=== PATIENT | female | born 1940 | race Caucasian/White ===

== ENCOUNTER 2021-09-14 09:11 | Emergency (ER) | payer OTHER, MEDICARE ==
--- OUTSIDE RECORDS SUMMARY | 2021-09-14 09:26 | XMS REPORT | Continuity of Care Document ---
:1940 Author Organization [facility] t Address [address] [place] [address] Care Team Providers Name Role Phone Brunilda Attending Clinician Unavailable BRENNA Attending Clinician Unavailable ADOLPH Attending Clinician Unavailable Brunilda Admitting Clinician Unavailable Payers Payer Name Policy Type Policy Number Effective Date Expiration Date S ource Problems Condition Condition Condition Status Onset Resolution Last Treating Co mments Source Name Details Category Date Date Treatment Clinician Date C A D Diagnosis Active 2014-08-21 [facility] oria 08-17 08:19:00 l C A D 00:00: [place] 00 Active 08/17/2014 [facility] NEED Diagnosis Active 2014-08-20 [facility] oria 08-17 15:35:00 l NEED 00:00: [place] 00 Active 08/17/2014 [facility] 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 , and unspecifie idiopathic d neuropathy , unspecifie d Active Problem 05/17/2020 [facility] 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, 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, not elsewhere classified Active Problem 05/17/2020 [facility] Vitamin D Problem Active 2020-05-17 Me moria deficiency 02:48:03 l , Vitamin [place] unspecifie D d deficiency , unspecifie d Active Problem 05/17/2020 [facility] 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 Active Problem 05/17/2020 [facility] Gastro-eso Problem Active 2020-05-17 M emoria phageal 02:48:03 l reflux [place] disease Gastro-eso with phageal esophagiti reflux s disease with esophagiti s Active Problem 05/17/2020 [facility] Pain in Problem Active 2020-05-17 Alfredo ernetta unspecifie 02:48:03 l d knee Pain in Niall unspecifie d knee Active Problem 05/17/2020 [facility] Frequency Problem Active 2020-05-17 Az moria of 02:48:03 l micturitio Nicho n n Frequency of micturitio n Active Problem 05/17/2020 [facility] Asymptomat Problem Active 2020-05-17 M emoria ic 02:48:03 l menopausal Nicho n state Asymptomat ic menopausal state Active Problem 05/17/2020 [facility] Other Problem Active 2020-05-17 Memor ia chronic 02:48:03 l sinusitis Other [place] chronic sinusitis Active Problem 05/17/2020 [facility] 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 without angina pectoris Active Problem 05/17/2020 [facility] Generalize Problem Active 2020-05-17 M emoria d 02:48:03 l abdominal Niall pain Generalize d abdominal pain Active Problem 05/17/2020 [facility] Chest Problem Active 2020-05-17 Memor ia pain, 02:48:03 l unspecifie Chest Mi nn d pain, unspecifie d Active Problem 05/17/2020 [facility] Essential Problem Active 2020-05-17 Me moria (primary) 02:48:03 l hypertensi Nicho n on Essential (primary) hypertensi on Active Problem [facility] Other Problem Active 2020-05-17 Memor ia constipati 02:48:03 l on Other Niall constipati on Active Problem [facility] Pain in Problem Active 2020-05-17 Alfredo renetta right 02:48:03 l shoulder Pain in Mi nn right shoulder Active Problem 05/17/2020 [facility] 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, Carpal Im nn unspecifie tunnel d upper syndrome, limb unspecifie d upper limb Active Problem 05/17/2020 [facility] Pain in Problem Active 2020-05-17 Alfredo renetta left ankle 02:48:03 l and joints Pain in Her hugo of left left ankle foot and joints of left foot Active Problem 05/17/2020 [facility] Low back Problem Active 2020-05-17 Mem oria pain 02:48:03 l Low back Nicho n pain Active Problem 05/17/2020 [facility] Obstructiv Problem Active 2020-05-17 M emoria e sleep 02:48:03 l apnea Niall (adult) Obstructiv (pediatric e sleep ) apnea (adult) (pediatric ) Active Problem 05/17/2020 [facility] Wheezing Problem Active 2020-05-17 Mem oria 02:48:03 l Wheezing Nicho n Active Problem 05/17/2020 [facility] Cracked Problem Active 2020-05-17 Alfredo renetta tooth 02:48:03 l Cracked [place] tooth Active Problem 05/17/2020 [facility] Localized Problem Active 2020-05-17 Me moria edema 02:48:03 l [place] Localized edema Active Problem 05/17/2020 [facility] 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 02:48:03 l emia Mixed Niall hyperlipid emia Active Problem 05/17/2020 [facility] Acute Problem Active 2020-05-17 Memor ia gingivitis 02:48:03 l , plaque Acute Niall induced gingivitis , plaque induced Active Problem 05/17/2020 [facility] Age-relate Problem Active 2020-05-17 M emoria d 02:48:03 l osteopormaggy Torre n is with Age-relate current d pathologic osteoporos al is with fracture, current unspecifie pathologic d site, al subsequent fracture, encounter unspecifie for d site, fracture subsequent with encounter routine for healing fracture with routine healing Active Problem 05/17/2020 [facility] Unspecifie Problem Active 2020-05-17 M emoria d fall, 02:48:03 l subsequent Nicho n encounter Unspecifie d fall, subsequent encounter Active Problem 05/17/2020 [facility] Other Problem Active 2020-05-17 Memor ia muscle 02:48:03 l spasm Other [place] muscle spasm Active Problem 05/17/2020 [facility] Age-relate Problem Active 2020-05-17 M emoria d 02:48:03 l osteopormaggy Tor[place] n is with Age-relate current d pathologic osteoporos al is with fracture, current left ankle pathologic and foot, al subsequent fracture, encounter left ankle for and foot, fracture subsequent with encounter delayed for healing fracture with delayed healing Active Problem 05/17/2020 [facility] Other Problem Active 2020-05-17 Memor ia interverte 02:48:03 l bral disc Other Nicho n degenerati interverte on, bral disc lumbosacra degenerati l region on, lumbosacra l region Active Problem 05/17/2020 [facility] Cough Problem Active 2020-05-17 Memor ia 02:48:03 l Cough Niall Active Problem 05/17/2020 [facility] Other Problem Active 2020-05-17 Memor ia interverte 02:48:03 l bral disc Other Nicho n degenerati interverte on, lumbar bral disc region degenerati on, lumbar region Active Problem 05/17/2020 [facility] Acute Problem Active 2020-05-17 Memor ia bronchitis 02:48:03 l , Acute [place] unspecifie bronchitis d , unspecifie d Active Problem 05/17/2020 [facility] Peripheral Problem Active 2020-05-[address] 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, myelopathy lumbosacra or l region radiculopa thy, lumbosacra l region Active Problem 05/17/2020 [facility] 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 02:48:03 l mellitus Type 2 Nicho n with diabetes hyperglyce mellitus clair with hyperglyce clair Active Problem 05/17/2020 [facility] Other Problem Active 2020-05-17 Memor ia abnormal 02:48:03 l and Other Niall inconclusi abnormal ve and findings inconclusi on ve diagnostic findings imaging of on breast diagnostic imaging of breast Active Problem 05/17/2020 [facility] Morbid Problem Active 2020-05-17 Memor ia (severe) 02:48:03 l obesity Morbid [place] due to (severe) excess obesity calories due to excess calories Active Problem 05/17/2020 [facility] Adjustment Problem Active 2020-05-17 M emoria insomnia 02:48:03 l [place] Adjustment insomnia Active Problem 05/17/2020 [facility] 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, Behavioral unspecifie insomnia d type of childhood, unspecifie d type Active Problem 05/17/2020 [facility] Encounter Problem Active 2020-05-17 Me moria for 02:48:03 l screening Niall mammogram Encounter for for malignant screening neoplasm mammogram of breast for malignant neoplasm of breast Active Problem 05/17/2020 [facility] Acute Problem Active 2020-05-17 Memor ia frontal 02:48:03 l sinusitis, Acute Mi nn unspecifie frontal d sinusitis, unspecifie d Active Problem 05/17/2020 [facility] Age-relate Problem Active 2020-05-17 M emoria d 02:48:03 l osteoporos Nicho n is with Age-relate current d pathologic osteoporos al is with fracture, current left pathologic humerus, al initial fracture, encounter left for humerus, fracture initial encounter for fracture Active Problem 05/17/2020 [facility] Chronic Problem Active 2020-05-17 Alfredo renetta sinusitis, 02:48:03 l unspecifie Chronic Her hugo d sinusitis, unspecifie d Active Problem 05/17/2020 [facility] Other Problem Active 2020-05-17 Memor ia acute 02:48:03 l sinusitis Other Nicho n acute sinusitis Active Problem 05/17/2020 [facility] Muscle Problem Active 2020-05-17 Memor ia spasm of 02:48:03 l back Muscle Niall spasm of back Active Problem 05/17/2020 [facility] Arthralgia Problem Active 2020-05-17 M emoria of right 02:48:03 l temporoman Nicho n dibular Arthralgia joint of right temporoman dibular joint Active Problem 05/17/2020 [facility] Acute Problem Active 2020-05-17 Memor ia upper 02:48:03 l respirator Acute Mi nn y upper infection, respirator unspecifie y d infection, unspecifie d Active Problem 05/17/2020 [facility] Resistance Problem Active 2020-05-17 M emoria to other 02:48:03 l specified [place] beta Resistance lactam to other antibiotic specified s beta lactam antibiotic s Active Problem 05/17/2020 [facility] Hypothyroi Problem Active 2020-05-17 M emoria dism, 02:48:03 l unspecifie Nicho n d Hypothyroi dism, unspecifie d Active Problem 05/17/2020 [facility] Menopausal Problem Active 2020-05-17 M emoria and female 02:48:03 l climacteri Nicho n c states Menopausal and female climacteri c states Active Problem 05/17/2020 [facility] Cervicalgi Problem Active 2020-05-17 M emoria a 02:48:03 l Niall Cervicalgi a Active Problem 05/17/2020 [facility] Hyperlipid Problem Active 2020-05-17 M emoria emia, 02:48:03 l unspecifie Nicho n d Hyperlipid emia, unspecifie d Active Problem 05/17/2020 [facility] pal[facility]ino Other Problem Active 2020-05-17 Memor ia dorsalgia 02:48:03 l Other Niall dorsalgia Active Problem 05/17/2020 [facility] pal[facility]ino Age-relate Problem Active 2020-05-17 M emoria d 02:48:03 l osteoporos Nicho n is without Age-relate current d pathologic osteoporos al is without fracture current pathologic al fracture Active Problem 05/17/2020 [facility] Dietary Problem Active 2020-05-17 Alfredo renetta counseling 02:48:03 l and Dietary [place] surveillan counseling ce and surveillan ce Active Problem [facility] pal[facility]ino Acute Problem Active 2020-05-17 Memor ia maxillary 02:48:03 l sinusitis, Acute Mi nn unspecifie maxillary d sinusitis, unspecifie d Active Problem 05/17/2020 [facility]aved palomino Body mass Problem Active 2020-05-17 Me moria index 02:48:03 l (BMI) Body Niall 39.0-39.9, mass index adult (BMI) 39.0-39.9, adult Active Problem 05/17/2020 [facility]aved palomino Person Problem Active 2020-05-17 Memor ia consulting 02:48:03 l for Person Niall explanatio consulting n of for examinatio explanatio n or test n of findings examinatio n or test findings Active Problem 05/17/2020 [facility]aved palomino Diabetes Problem Active 2020-05-17 Mem oria mellitus 02:48:03 l due to Diabetes Nicho n underlying mellitus condition due to with underlying hypoglycem condition ia without with coma hypoglycem ia without coma Active Problem 05/17/2020 [facility] pal[facility]ino Pain in Problem Active 2020-05-17 Alfredo renetta right hip 02:48:03 l Pain in Niall right hip Active Problem 05/17/2020 [facility]aved palomino Diabetes Problem Active 2020-05-17 Mem oria mellitus 02:48:03 l due to Diabetes Nicho n underlying mellitus condition due to with underlying diabetic condition neuropathy with , diabetic unspecifie neuropathy d , unspecifie d Active Problem 05/17/2020 [facility]aved palomino Encounter Problem Active 2020-05-17 Az moria for 02:48:03 l immunizati Nicho n on Encounter for immunizati on Active Problem Javed palomino Body mass Problem Active 2020-05-17 Me moria index 02:48:03 l (BMI) Body [place] 40.0-44.9, mass index adult (BMI) 40.0-44.9, adult Active Problem 05/17/2020 [facility]aved [facility]omino Periapical Diagnosis Active 2018-10-16 Memoria abscess 02:45:30 l without Niall sinus Periapical abscess without sinus Active Diagnosis 10/16/2018 [facility] 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 Active Problem 05/17/2020 [facility] Allergic Problem Active 2020-05-17 Mem oria rhinitis, 02:48:03 l unspecifie Allergic He rmann d rhinitis, unspecifie d Active Problem 05/17/2020 [facility] BATSHEVA - Problem Active 2014-12-26 Memor ia Obstructiv 03:48:59 l e sleep BATSHEVA - Niall apnea Obstructiv (adult) e sleep (pediatric apnea ) (adult) (pediatric ) Active Problem 12/26/2014 [facility]aved [facility]ino SOB - Problem Active 2014-12-26 Memor ia Shortness 03:48:59 l of breath SOB - Nicho n Shortness of breath Active Problem 12/26/2014 [facility] Fatigue Problem Active 2014-12-26 Alfredo renetta and 03:48:59 l Generalize Fatigue Her hugo d Weakness and Generalize d Weakness Active Problem 12/26/2014 [facility]aved [facility]ino Urinary Problem Active 2014-12-26 Alfredo renetta frequency 03:48:59 l Urinary [place] frequency Active Problem 12/26/2014 [facility] knee pain Problem Active 2014-12-26 Me moria 03:48:59 l knee [place] pain Active Problem 12/26/2014 [facility] Unspecifie Problem Active 2014-12-26 M emoria d vitamin 03:48:59 l D Niall deficiency Unspecifie d vitamin D deficiency Active Problem 12/26/2014 [facility] Other Problem Active 2014-12-26 Memor ia chronic 03:48:59 l sinusitis Other Nicho n chronic sinusitis Active Problem 12/26/2014 [facility] Asymptomat Problem Active 2014-12-26 M emoria ic 03:48:59 l postmenopa Nicho n usal Asymptomat status ic (age-relat postmenopa ed) usal (natural) status (age-relat ed) (natural) Active Problem 12/26/2014 [facility] GERD - Problem Active 2014-12-26 Memor ia Reflux 03:48:59 l esophagiti GERD - Herm junaid s Reflux esophagiti s Active Problem 12/26/2014 [facility] Abdominal Problem Active 2014-12-26 Me moria pain, 03:48:59 l generalize Nicho n d Abdominal pain, generalize d Active Problem 12/26/2014 Javed palomino DM type 2 Problem Active 2014-12-26 Me moria Diabetes 03:48:59 l mellitus DM type Mi nn without 2 Diabetes mention of mellitus complicati without on, type mention of II or complicati unspecifie on, type d type, II or uncontroll unspecifie ed d type, uncontroll ed Active Problem 5 [facility] HTN - Problem Active 2014-12-26 Memor ia Unspecifie 03:48:59 l d HTN - [place] essential Unspecifie hypertensi d on essential hypertensi on Active Problem 5 [facility] Mixed Problem Active 2014-12-26 Memor ia hyperlipid 03:48:59 l emia Mixed [place] hyperlipid emia Active Problem 12/26/2014 [facility] Wheezing Problem Active 2014-12-26 Mem oria 03:48:59 l Wheezing Nicho n Active Problem 12/26/2014 [facility] Unspecifie Problem Active 2014-12-26 M emoria d 03:48:59 l peripheral Nicho n vascular Unspecifie disease d peripheral vascular disease Active Problem 12/26/2014 [facility]ickman [facility] Unspecifie Problem Active 2014-12-26 M emoria d 03:48:59 l hereditary Nicho n and 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 Active Problem 12/26/2014 [facility]aved Rosariotie s Enlargemen Diagnosis Active 2014-09-06 Memoria t of lymph 02:45:50 l nodes [place] Enlargemen t of lymph nodes Active Diagnosis 09/06/2014 Javed Rosariotie s Unspecifie Problem Active 2014-12-26 M emoria d abnormal 03:48:59 l mammogram [place] Unspecifie d abnormal mammogram Active Problem 12/26/2014 [facility] Other Problem Active 2014-12-26 Memor ia cerebellar 03:48:59 l ataxia Other Niall cerebellar ataxia Active Problem 12/26/2014 Javed Rosariotie s Occlusion Problem Active 2014-12-26 Me moria and 03:48:59 l stenosis [place] of carotid Occlusion artery and without stenosis mention of of carotid cerebral artery infarction without mention of cerebral infarction Active Problem 12/26/2014 Javed Rosariotie s 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, Niall lumbar Postlamine region ctomy syndrome, lumbar region Active Problem 12/26/2014 [facility] Degenerati Problem Active 2014-12-26 M emoria on of 03:48:59 l lumbar or [place] lumbosacra Degenerati l on of interverte lumbar or bral disc lumbosacra l interverte bral disc Active Problem 12/26/2014 Javed Rosariotie s Lumbosacra Problem Active 2014-12-26 M emoria l 03:48:59 l spondylosi Nicho n s without Lumbosacra myelopathy l spondylosi s without myelopathy Active Problem 12/26/2014 [facility] Cracked Problem Active 2014-12-26 Alfredo renetta tooth 03:48:59 l Cracked N[place] tooth Active Problem 12/26/2014 [facility] Acute Problem Active 2014-12-26 Memor ia gingivitis 03:48:59 l , plaque Acute Niall induced gingivitis , plaque induced Active Problem 12/26/2014 Javed palomino Allergic Diagnosis Active 2014-04-05 M emoria rhinitis 03:51:03 l due to Allergic Nicho n pollen rhinitis due to pollen Active Diagnosis 04/05/2014 Javed palomino Cardiac Problem Active 2014-08-24 Alfredo renetta catheteriz 01:38:43 l ation Cardiac [place] post-inter catheteriz vention ation phase post-inter (qualifier vention value) phase (qualifier value) Active Problem 08/24/2014 [facility] Diabetes Problem Active 2014-08-24 Mem oria mellitus 01:38:43 l (disorder) Diabetes He rmann mellitus (disorder) Active Problem 08/24/2014 [facility] Gout Problem Active 2014-08-24 Memor ia (disorder) 01:38:43 l Gout [place] (disorder) Active Problem 08/24/2014 [facility] Hypertensi Problem Active 2014-08-24 M emoria ve 01:38:43 l disorder, [place] systemic Hypertensi arterial ve (disorder) disorder, systemic arterial (disorder) Active Problem 08/24/2014 [facility] Rheumatoid Problem Active 2014-08-24 M emoria arthritis 01:38:43 l (disorder) Nicho n Rheumatoid arthritis (disorder) Active Problem 08/24/2014 [facility] CRNRY Diagnosis Active 2014-08-21 Mem oria ATHRSCL 08:19:00 l NATVE VSSL CRNRY Mi nn ATHRSCL NATVE VSSL Active [facility] Allergies, Adverse Reactions, Alerts Allergy Allergy Status Severity Reaction(s) Onset Inactive Treating Comm ents Source Name Type Date Date Lia calderon Active itch 2017- Memori a 2-19 l 00:00: [place] 00 codeine DA Active [place] [facility] 604 Clear 00:00: [place] 00 [facility] propoxyp DA Active [facility] 604 Clear 00:00: [place] 00 [facility] codeine DA Active [place] [facility] 604 Clear 00:00: [place] 00 [facility] propoxyp DA Active [facility] 604 Clear 00:00: [place] 00 [facility] codeine codeine Active Nicole Tierney Social History Social Habit Start Date Stop Date Quantity Comments Source Useofrecreational/ 2016-03-04 2016-03-04 Shamar al Niall [facility]? 00:00:00 00:00:00 Medications Ordered Filled Start Stop Current Ordering Indication Dosage Frequency Signature Comments Components Source Medication Medication Date Date Medication? Clinician (SIG) Name Name Pavel Yes Nedal Edgar 50 units M emoria 70/30 3-26 in am and l 02:47: 40 units Niall 52 in pm MiraLax Yes Nedal Edgar not Memor ia - defined l 02:47: Niall Rosales Simvastatin Yes Nedal Edgar 1 tablet Memoria 3-26 in the l 02:47: evening Niall Rosales Krystyna Yes Nedal Edgar 1 tablet Mem oria Aspirin - l 02:47: Niall Rosales ReliOn Yes Nedal Edgar 50 units Me moria 70/30 3-26 am and 30 l 02:47: units pm Niall Rosales Plavix Yes Nedal Edgar 1 tablet Me moria 3-26 l 02:47: Niall Rosales Vitamin C Yes Nedal Edgar 1 tablet Memoria 3-26 l 02:47: Niall Rosales Cetirizine Yes Nedal Edgar 1 tablet Memoria HCl - l 02:47: Niall Rosales Amoxicillin Yes Nedal Edgar not M emoria -Pot - defined l Clavulanate 02:47: Nicho Rosales Metoprolol Yes Nedal Edgar 1 tablet Memoria Succinate -26 l ER 02:47: Niall Rosales Omeprazole Yes Nedal Edgar 1 capsule Memoria 3-26 l 02:47: Niall Rosales Accu-Chek Yes Nedal Edgar use as M emoria Vivi Plus 3-26 directed l 02:47: Niall Rosales Lisinopril Yes Nedal Edgar 1 TABLET Memoria 3-26 ONCE A DAY l 02:47: ORALLY 90 Niall Rosales DAYS Prevacid Yes Nedal Edgar 1 capsule Memoria 3-26 before a l 02:47: meal Niall Rosales Omeprazole 2020-0 Yes Carol 1 capsule M emoria 3-27 PeckSamman l 02:45: Accu-Chek 2019-0 Yes Jimmy use as Memori a Vivi Plus 9-19 zzzAmer directed l 02:46: Lisinopril 2019-0 Yes Jimmy 1 TABLET Mem oria 9-19 zzzAmer ONCE A DAY l 02:46: ORALLY 90 DAYS Prevacid 2019-0 Yes Jimmy 1 capsule Alfredo renetta 9-19 zzzAmer before a l 02:46: meal Omeprazole 2019-0 Yes Carol TAKE 1 Alfredo renetta 8-25 PeckSamman CAPSULE l 02:45: DAILY Doxycycline 2018-1 Yes Nedal Edgar 1 capsule Memoria Hyclate 2-13 l 00:00: PredniSONE 2018-1 Yes Nedal Edgar 1 tablet Memoria 2-13 l 00:00: Valium 2018-1 Yes Nedal Edgar 1 tablet Me moria 2-06 l 00:00: Levofloxaci 2018-0 Yes Nedal Edgar 1 tablet Memoria n 9-18 l 00:00: Amoxicillin 2018-0 Yes Nedal Edgar 1 tablet Memoria 9-04 l 00:00: Medrol 2018-0 Yes Jimmy as Memoria (Dylan) 3-21 zzzAmer directed l 00:00: Hydrocodone 2018-0 Yes Carol 1 tablet M emoria -Acetaminop 2-13 Shetty-Samma as needed l hen 00:00: n Protem 2018-0 Yes Carol 1 tablet Memoria 1-11 Shetty-Samma as needed l 00:00: n Voltaren 2018-0 Yes Nedal Edgar one Alfredo renetta 1-09 applicatio l 00:00: n Tamiflu 2018-0 Yes Nedal Edgar 1 capsule Memoria 1-02 l 00:00: Famotidine 2017-1 Yes Nedal Edgar 1 tablet Memoria 2-28 l 00:00: Ibuprofen 2017-1 Yes Carol 1 tablet Mem oria 2-28 Shetty-Samma with food l 00:00: n or milk Duexis 2017-1 Yes Carol 1 tablet Memori a 2-27 Shetty-Samma l 00:00: n [place] Flexeril 2016-02 Yes Carol 1 tablet Alfredo renetta 2-27 Shetty-Samma as needed l 00:00: n Niall Clindamycin 2016-02 Yes Carol 1 capsule Memoria HCl 2-19 PeckSamman l 00:00: [place] Prevacid 2016-02 Yes Carol 1 capsule Mem oria 2-07 Shetty-Samma before a l 03:46: n meal [place] Amoxicillin 2016-02 Yes Carol 1 tablet M emoria -Pot 2-07 PeckSamman l Clavulanate 00:00: Nicho hall ReliOn Yes Jimmy 50 units Alfredo renetta 70/30 9-05 Kerns am and 30 l 02:45: units pm Niall Zyrtec Yes Carol 1 capsule Memor ia Allergy 7-16 Shetty-Samma as needed l 00:00: n Niall Hydrocodone Yes Carol 1 tablet M emoria -Acetaminop 7-12 Shetty-Samma as needed l hen 00:00: n Niall Tramadol Yes Carol 1 tablet Alfredo renetta HCl 7-11 Shetty-Samma as needed l 00:00: n [place] Amoxicillin Yes Carol 1 tablet M emoria 5-15 Shetty-Samma l 00:00: n Niall Omeprazole Yes Carol 1 capsule M emoria 3-13 Shetty-Samma l 02:50: n Niall Accu-Chek Yes Carol use as Memor ia Vivi Plus 3-08 Shetty-Samma directed l 03:52: n [place] Plavix Yes Carol 1 tablet Memori a 3-08 Shetty-Samma l 03:52: n [place] Krystyna Yes Carol 1 tablet Memoria Aspirin 3-08 Shetty-Samma l 03:52: n Niall Simvastatin Yes Carol 1 tablet M emoria 3-08 Shetty-Samma in the l 03:52: n evening Niall Vitamin C 2017-0 Yes Carol 1 tablet Mem oria 3-08 Shetty-Samma l 03:52: n Niall Zyrtec 2017-0 Yes Carol 1 capsule [facility] Allergy 3-08 Shetty-Samma as needed l 03:52: n [facility]ial[facility] MiraLax 2017-0 Yes Carol Unknown [facility] a 3-08 Shetty-Samma l 03:52: n Niall Protem 2017-0 Yes Carol 1 tablet [facility] 1-05 Shetty-Samma as needed l 00:00: n Niall Metformin 2017-0 Yes Nedal Edgar 1 tablet [facility] HCl 1-04 with meals l 00:00: Nial[facility] 00 Lasix 2017-0 Yes Nedal Edgar 1 tablet Mem [facility] 1-04 l 00:00: [place] Lasix 0 Yes Carol 1 tablet [facility] 1-04 Shetty-Samma l 00:00: n [facility]ial[facility] Metformin 2016-0 Yes Carol 1 tablet [facility] HCl 1-04 Shetty-Samma with meals l 00:00: n [facility]ial[facility] Azithromyci 2015-1 Yes Carol 2 tablets [facility] n 2-30 Shetty-Samma on the l 00:00: n first day, then 1 tablet daily for 4 days Cheratussin 2015-1 Yes Carol 5 ml [facility] AC 2-30 Shetty-Samma l 00:00: n [facility] Tizanidine 2015-1 Yes Carol 1 tablet Me moria HCl 0-17 Shetty-Samma as needed l 00:00: n [facility] Amoxicillin 2015-0 Yes Carol 1 capsule [facility] 9-30 Shetty-Samma l 00:00: n Nial[facility] Alendronate 2015-0 Yes Carol 1 tablet M emoria Sodium 9-26 Shetty-Samma l 00:00: n [facility]ial[facility] Amoxicillin 2015-0 Yes Carol 1 tablet M emoria 5-11 Shetty-Samma l 00:00: n [facility] Nitroglycer 2015-0 Yes Nedal Edgar as M emoria in 4-13 directed l 00:00: [place] Nitroglycer 2015-0 Yes Carol as [facility] in 4-13 Shetty-Samma directed l 00:00: n Niall 00 Zyrtec 2016-0 Yes Carol 1 capsule [facility] Allergy 2-06 Shetty-Samma as needed l 04:33: n [place] 47 Omeprazole Yes Carol 1 capsule M emoria 2-06 Shetty-Samma l 04:33: n Niall 47 Amoxicillin 2014-02 Yes Carol 1 capsule [facility] 2-11 Shetty-Samma l 00:00: n Nial[facility] 00 NovoLog 2014-02 No Jimmy 15 units [facility] Flexpen 1-11 [place] l 03:55: [facility]ial[facility] 44 Levemir 2014-02 No Jimmy INJECT 36 [facility] Flexpen 1-11 [place] UNITS l 03:55: DAILY AT [place] 44 BEDTIME Novolin 2014-02 Yes Carol 50 units [facility] 70/30 1-10 Shetty-Samma breakfast l 00:00: n and 30 Niall 00 units with dinner Melatonin 2014-02 Yes Nedal Edgar 1 tablet [facility] 1-05 at bedtime l 00:00: as needed [place] 00 with food Melatonin 2014-02 Yes Carol 1 tablet Mem [facility] 1-05 Shetty-Samma at bedtime l 00:00: n as needed [place] 00 with food Amoxicillin 2014-02 Yes Carol 1 tablet M emoria 1-02 Shetty-Samma l 00:00: n [place] 00 ProAir HFA 2014-02 Yes Nedal Edgar 2 puffs as [facility] 0-14 needed l 00:00: Nial[facility] 00 ProAir HFA 2014-02 Yes Carol 2 puffs as [facility] 0-14 Shetty-Samma needed l 00:00: n [place] 00 Flonase 2014-02 Yes Nedal Edgar 1 spray in [facility] 0-08 each l 00:00: nostril [place] 00 Flonase 2014-02 Yes Carol 1 spray in Mem [facility] 0-08 Shetty-Samma each l 00:00: n nostril [place] 00 Omeprazole Yes Carol 1 capsule M emoria 9-11 Shetty-Samma l 02:48: n Niall 10 Lisinopril Yes Carol 1 tablet Me moria 8-20 Shetty-Samma l 00:00: n Niall 00 Levemir Yes Carol INJECT 36 Alfredo renetta Flexpen 7-28 Shetty-Samma UNITS l 00:00: n DAILY AT BEDTIME Actonel Yes Carol 1 tablet [facility] 7-22 Shetty-Samma l 00:00: n Back Yes Nedal Edgar as [facility] Support-Bra 5-19 directed l ce 00:00: Back Yes Carol as [facility] Support-Bra 5-19 Shetty-Samma directed l ce 00:00: n Farxiga Yes Carol 1 tablet [facility] 5-14 Shetty-Samma l 00:00: n Valium Yes Nedal Edgar 1 tablet Me moria 4-21 as needed l 00:00: Valium Yes Carol 1 tablet [facility] a 4-21 Shetty-Samma as needed l 00:00: n Levemir Yes Carol INJECT 30 Alfredo renetta Flexpen 2-12 Shetty-Samma UNITS l 03:51: n DAILY AT BEDTIME Zocor Yes Carol 1 tablet [facility] 2-12 Shetty-Samma in the l 03:51: n evening Persantine Yes Carol as [facility] a 2-12 Shetty-Samma directed l 03:51: n Lotrel Yes Carol 1 capsule [facility] 2-12 Shetty-Samma l 03:51: n Tradjenta Yes Carol 1 tablet Mem o[facility] 2-09 Shetty-Samma l 00:00: n Lansoprazol No Carol 1 tablet M emoria e 2-09 Shetty-Samma on the l 00:00: n tongue and allow to dissolve before a meal MetFORMIN No Carol 2 tablets Me moria HCl ER 2-09 Shetty-Samma with l 00:00: n evening meal Omeprazole Yes Carol 1 capsule M emoria 2-09 Shetty-Samma l 00:00: n Lisinopril No Carol 1 tablet Me moria 2-09 Shetty-Samma l 00:00: n [place] 00 Hydrochloro 2014-0 Yes Carol 1 tablet M emoria thiazide 2-09 Shetty-Samma l 00:00: n [facility] Hydrocodone 2013- Yes Carol 1 tablet M emoria -Acetaminop 2-30 Shetty-Samma as needed l hen 00:00: n [place] Invokana 2013- Yes Carol 1 tablet Alfredo renetta 1-03 Shetty-Samma l 00:00: n [place] Flonase 2013- Yes Carol 1 spray in Mem oria 0-13 Shetty-Samma each l 00:00: n nostril Niall 00 Vitamin D3 2013- Yes Carol as [facility] a 7-16 Shetty-Samma directed l 00:00: n [place] Albuterol 2013- Yes Carol 2 puffs as M emoria Sulfate HFA 6-06 Shetty-Samma needed l 00:00: n Niall 00 Immunizations Ordered Immunization Filled Immunization Date Status Commen ts Source Name Name Pfizer COVID-19 Vaccine Pfizer COVID-19 2020-04-20 Completed Vaccine 00:00:00 Pfizer COVID-19 Vaccine Pfizer COVID-19 2020-03-23 Completed Vaccine 00:00:00 Vital Signs Vital Name Observation Time Observation Value Comments Source Weight 2018-02-09 14:45:00 [facility] Height 2018-02-09 14:45:00 [facility] Respitory Rate 2018-02-09 14:45:00 [facility] [place] Diastolic (mm Hg) 2018-02-09 14:45:00 Mem o[facility] [place] Systolic (mm Hg) 2018-02-09 14:45:00 Alfredo rial [facility] Temperature Oral (F) 2018-02-09 14:45:00 97.6 F [facility] [place] Heart Rate 2018-02-09 14:45:00 [facility] [place] Weight 2018-01-25 15:00:00 [facility] [place] Height 2018-01-25 15:00:00 [facility] [place] Respitory Rate 2018-01-25 15:00:00 [facility] Diastolic (mm Hg) 2018-01-25 15:00:00 [facility] [place] Systolic (mm Hg) 2018-01-25 15:00:00 Alfredo rial [place] Temperature Oral (F) 2018-01-25 15:00:00 97.8 F [facility] Heart Rate 2018-01-25 15:00:00 [facility] [place] Weight 2017-11-09 19:00:00 [facility] Height 2017-11-09 19:00:00 [facility] Respitory Rate 2017-11-09 19:00:00 [facility] [place] Diastolic (mm Hg) 2017-11-09 19:00:00 [facility] [place] Systolic (mm Hg) 2017-11-09 19:00:00 Alfredo rial [facility] Temperature Oral (F) 2017-11-09 19:00:00 97.3 F [facility] [place] Heart Rate 2017-11-09 19:00:00 [facility] Weight 2017-10-26 21:00:00 [facility] [place] Height 2017-10-26 21:00:00 [facility] [place] Respitory Rate 2017-10-26 21:00:00 [facility] Diastolic (mm Hg) 2017-10-26 21:00:00 Mem o[facility] [place] Systolic (mm Hg) 2017-10-26 21:00:00 Alfredo rial [facility] Temperature Oral (F) 2017-10-26 21:00:00 98.0 F [facility] [place] Heart Rate 2017-10-26 21:00:00 [facility] [place] Weight 2017-05-12 14:30:00 [facility] Systolic (mm Hg) 2017-05-12 14:30:00 Alfredo rial [facility] Respitory Rate 2017-05-12 14:30:00 [facility] [place] Heart Rate 2017-05-12 14:30:00 [facility] Temperature Oral (F) 2017-05-12 14:30:00 97.5 F [facility] [place] Diastolic (mm Hg) 2017-05-12 14:30:00 Mem orial [place] Weight 2017-04-06 21:45:00 [facility] [place] Systolic (mm Hg) 2017-04-06 21:45:00 Alfredo rial [facility] Respitory Rate 2017-04-06 21:45:00 [facility] [place] Heart Rate 2017-04-06 21:45:00 [facility] Temperature Oral (F) 2017-04-06 21:45:00 97.6 F [facility] [place] Diastolic (mm Hg) 2017-04-06 21:45:00 Mem orial [place] Weight 2017-03-04 18:00:00 [facility] Systolic (mm Hg) 2017-03-04 18:00:00 Alfredo rial [place] Respitory Rate 2017-03-04 18:00:00 [facility] [place] Heart Rate 2017-03-04 18:00:00 [facility] [place] Temperature Oral (F) 2017-03-04 18:00:00 97.8 F [facility] [place] Diastolic (mm Hg) 2017-03-04 18:00:00 [facility] Weight 2017-02-23 19:00:00 [facility] [place] Systolic (mm Hg) 2017-02-23 19:00:00 Alfredo rial [facility] Respitory Rate 2017-02-23 19:00:00 [facility] [place] Heart Rate 2017-02-23 19:00:00 [facility] [place] Temperature Oral (F) 2017-02-23 19:00:00 97.5 F [facility] Diastolic (mm Hg) 2017-02-23 19:00:00 [facility] Weight 2017-02-17 15:30:00 [facility] [place] Systolic (mm Hg) 2017-02-17 15:30:00 Alfredo rial [place] Respitory Rate 2017-02-17 15:30:00 [facility] Heart Rate 2017-02-17 15:30:00 [facility] Temperature Oral (F) 2017-02-17 15:30:00 97.9 F [facility] [place] Diastolic (mm Hg) 2017-02-17 15:30:00 Mem orial [place] Weight 2017-02-09 18:30:00 [facility] Systolic (mm Hg) 2017-02-09 18:30:00 Alfredo rial [place] Respitory Rate 2017-02-09 18:30:00 [facility] [place] Heart Rate 2017-02-09 18:30:00 [facility] [place] Temperature Oral (F) 2017-02-09 18:30:00 97.9 F [facility] Diastolic (mm Hg) 2017-02-09 18:30:00 [facility] Weight 2017-01-28 15:00:00 [facility] Systolic (mm Hg) 2017-01-28 15:00:00 Alfredo rial [place] Respitory Rate 2017-01-28 15:00:00 [facility] [place] Heart Rate 2017-01-28 15:00:00 [facility] [place] Temperature Oral (F) 2017-01-28 15:00:00 97.6 F [facility] Diastolic (mm Hg) 2017-01-28 15:00:00 Mem orial [place] Weight 2016-09-02 20:45:00 [facility] [place] Systolic (mm Hg) 2016-09-02 20:45:00 Alfredo rial [facility] Respitory Rate 2016-09-02 20:45:00 [facility] Heart Rate 2016-09-02 20:45:00 [facility] [place] Temperature Oral (F) 2016-09-02 20:45:00 97.7 F [facility] [place] Diastolic (mm Hg) 2016-09-02 20:45:00 [facility] Weight 2016-03-04 19:00:00 [facility] [place] Systolic (mm Hg) 2016-03-04 19:00:00 Alfredo rial [place] Respitory Rate 2016-03-04 19:00:00 [facility] Heart Rate 2016-03-04 19:00:00 [facility] [place] Temperature Oral (F) 2016-03-04 19:00:00 96.0 F [facility] Diastolic (mm Hg) 2016-03-04 19:00:00 Mem orial [place] Weight 2016-02-26 19:00:00 [facility] [place] Systolic (mm Hg) 2016-02-26 19:00:00 Alfredo rial [facility] Respitory Rate 2016-02-26 19:00:00 [facility] Heart Rate 2016-02-26 19:00:00 [facility] Temperature Oral (F) 2016-02-26 19:00:00 96.5 F [facility] [place] Diastolic (mm Hg) 2016-02-26 19:00:00 [facility] Weight 2016-02-21 14:30:00 [facility] Systolic (mm Hg) 2016-02-21 14:30:00 Alfredo rial [facility] Respitory Rate 2016-02-21 14:30:00 [facility] [place] Heart Rate 2016-02-21 14:30:00 [facility] [place] Temperature Oral (F) 2016-02-21 14:30:00 96.2 F [facility] Diastolic (mm Hg) 2016-02-21 14:30:00 Mem orial [place] Weight 2015-12-23 15:30:00 [facility] [place] Systolic (mm Hg) 2015-12-23 15:30:00 Alfredo rial [facility] Respitory Rate 2015-12-23 15:30:00 [facility] [place] Heart Rate 2015-12-23 15:30:00 [facility] Temperature Oral (F) 2015-12-23 15:30:00 98.6 F [facility] [place] Diastolic (mm Hg) 2015-12-23 15:30:00 Mem orial [place] Weight 2015-12-09 16:00:00 [facility] [place] Systolic (mm Hg) 2015-12-09 16:00:00 Alfredo rial [place] Respitory Rate 2015-12-09 16:00:00 [facility] Heart Rate 2015-12-09 16:00:00 [facility] Temperature Oral (F) 2015-12-09 16:00:00 98.6 F [facility] [place] Diastolic (mm Hg) 2015-12-09 16:00:00 Mem orial [place] Weight 2015-11-18 13:30:00 [facility] Systolic (mm Hg) 2015-11-18 13:30:00 Alfredo rial [place] Respitory Rate 2015-11-18 13:30:00 [facility] Heart Rate 2015-11-18 13:30:00 [facility] [place] Temperature Oral (F) 2015-11-18 13:30:00 95.8 F [facility] Diastolic (mm Hg) 2015-11-18 13:30:00 [facility] Weight 2015-10-14 13:30:00 [facility] [place] Systolic (mm Hg) 2015-10-14 13:30:00 Alfredo rial [place] Respitory Rate 2015-10-14 13:30:00 [facility] [place] Heart Rate 2015-10-14 13:30:00 [facility] Temperature Oral (F) 2015-10-14 13:30:00 98.6 F [facility] Diastolic (mm Hg) 2015-10-14 13:30:00 [facility] Weight 2015-09-10 15:30:00 [facility] [place] Systolic (mm Hg) 2015-09-10 15:30:00 Alfredo rial [place] Respitory Rate 2015-09-10 15:30:00 [facility] [place] Heart Rate 2015-09-10 15:30:00 [facility] Temperature Oral (F) 2015-09-10 15:30:00 96.0 F [facility] Diastolic (mm Hg) 2015-09-10 15:30:00 [facility] Weight 2015-08-01 15:45:00 [facility] Systolic (mm Hg) 2015-08-01 15:45:00 Alfredo rial [place] Respitory Rate 2015-08-01 15:45:00 [facility] [place] Heart Rate 2015-08-01 15:45:00 [facility] [place] Temperature Oral (F) 2015-08-01 15:45:00 96.5 F [facility] Diastolic (mm Hg) 2015-08-01 15:45:00 Mem orial [place] Weight 2015-06-05 19:45:00 [facility] [place] Systolic (mm Hg) 2015-06-05 19:45:00 Alfredo rial [facility] Respitory Rate 2015-06-05 19:45:00 [facility] Heart Rate 2015-06-05 19:45:00 [facility] Temperature Oral (F) 2015-06-05 19:45:00 97.9 F [facility] Diastolic (mm Hg) 2015-06-05 19:45:00 Mem orial [place] Weight 2015-05-29 18:15:00 [facility] [place] Respitory Rate 2015-05-29 18:15:00 [facility] [place] Heart Rate 2015-05-29 18:15:00 [facility] Temperature Oral (F) 2015-05-29 18:15:00 97.9 F [facility] [place] Weight 2015 19:45:00 [facility] [place] Systolic (mm Hg) 2015 19:45:00 Alfredo rial [facility] Respitory Rate 2015 19:45:00 [facility] Heart Rate 2015 19:45:00 [facility] Temperature Oral (F) 2015 19:45:00 97.2 F [facility] Diastolic (mm Hg) 2015 19:45:00 Mem orial [place] Weight 2014-12-27 20:30:00 [facility] Systolic (mm Hg) 2014-12-27 20:30:00 Alfredo rial [facility] Respitory Rate 2014-12-27 20:30:00 [facility] Heart Rate 2014-12-27 20:30:00 [facility] Temperature Oral (F) 2014-12-27 20:30:00 97.7 F [facility] [place] Diastolic (mm Hg) 2014-12-27 20:30:00 [facility] Weight 2014-10-30 18:45:00 [facility] Systolic (mm Hg) 2014-10-30 18:45:00 Alfredo rial [place] Respitory Rate 2014-10-30 18:45:00 [facility] al [place] Heart Rate 2014-10-30 18:45:00 [facility] [place] Temperature Oral (F) 2014-10-30 18:45:00 97.2 F [facility] Diastolic (mm Hg) 2014-10-30 18:45:00 Mem orial [place] Height 2014-08-21 13:40:00 152.4 cm [facility] Weight 2014-08-21 13:40:00 [facility] BMI Calculated 2014-08-21 13:40:00 [facility] [place] Weight 2014-04-02 14:30:00 [facility] [place] Systolic (mm Hg) 2014-04-02 14:30:00 Alfredo rial [place] Respitory Rate 2014-04-02 14:30:00 [facility] Heart Rate 2014-04-02 14:30:00 [facility] Temperature Oral (F) 2014-04-02 14:30:00 97.3 F [facility] [place] Diastolic (mm Hg) 2014-04-02 14:30:00 [facility] Procedures This patient has no known procedures. Encounters Start End Encounter Admission Attending Care Care Encounter Source Date/Time Date/Time Type Type Clinicians Facility Department ID 2020-08-29 2020-08-29 Inpatient EM Naima [facility] [id number].01 [id number] [facility] 13:24:00 15:52:00 an, [id number] [facility] 2020-08-28 2020-08-29 Outpatient EM Fannymentone [facility]L ZZZB [id number] [facility] 08:12:00 13:24:00 an, [address] [facility] 2020-04-20 2020-04-20 Outpatient GCCOVIDV GCCOVIDV [id number] [facility] 00:00:00 00:00:00 V 2020-03-23 2020-03-23 Outpatient GCCOVIDV GCCOVIDV [id number] [facility] 00:00:00 00:00:00 V 2016-03-10 2016-03-10 Refills nullFlavo Knippa 0ff3e 8da-d [facility] 16:08:00 16:08:00 r Specialties 8y4-9u0x-3 l ea9-1d7272 Mi nn 3b29db 2016-03-04 2016-03-04 1 wk f/u nullFlavo Knippa 8abf 4182-3 [facility] 19:00:00 19:00:00 results r Specialties 9u9-9604-b l 215-6bdbc7 Mi nn d50c50 2016-03-04 2016-03-04 1 wk f/u nullFlavo Knippa ac9f d8e7-6 [facility] 18:00:00 18:00:00 results r Specialties 0t6-78b4-u l 1fd-e99c73 Mi nn 5fccc8 2016-02-26 2016-02-26 Swollen nullFlavo Knippa 488e9 c3f-5 [facility] 19:00:00 19:00:00 left foot r Specialties 64a-41d5 -8 l since bf9-870ddc Mi nn Wednesday [id number] 2016-02-26 2016-02-26 Swollen nullFlavo Knippa 73c61 a1f-d [facility] 19:00:00 19:00:00 left foot r Specialties g30-3md8 -b l since 2x2-78492g Mi nn Wednesday [id number] 2016-02-26 2016-02-26 Swollen nullFlavo Knippa 2f27c 1b9-2 [facility] 18:00:00 18:00:00 left foot r Specialties 1p2-420v -a l since t54-3cc833 Mi nn Wednesday 432e6f 2016-02-25 2016-02-25 urgent nullFlavo Knippa 07b61 eef-6 [facility] 20:51:00 20:51:00 appt/ r Specialties 6af-4a3e-b l swollen ca3-f1f1c7 Mi nn ankle 49336m 2016-02-25 2016-02-25 urgent nullFlavo Knippa 6eb22 9d3-3 [facility] 20:51:00 20:51:00 appt/ r Specialties ed6-46ac-b l swollen 400-5bf2e6 Mi nn ankle 9e94ed 2016-02-25 2016-02-25 urgent nullFlavo Knippa eb85c 28f-7 [facility] 20:51:00 20:51:00 appt/ r Specialties 24a-4a16-8 l swollen 6h9-4z8z02 Mi nn ankle 4j252k 2016-02-25 2016-02-25 urgent nullFlavo Knippa f17c3 3cd-b [facility] 19:51:00 19:51:00 appt/ r Specialties m91-4279-2 l swollen 3ba-04ddf8 Mi nn ankle 2bb4ae 2016-02-21 2016-02-21 5 month nullFlavo Knippa 58492 799-f [facility] 14:30:00 14:30:00 follow up r Specialties aa0-468f -b l 3u6-2vv517 Mi nn t4b693 2016-02-21 2016-02-21 5 month nullFlavo Knippa 66de6 d21-d [facility] 14:30:00 14:30:00 follow up r Specialties 776-42d0 -a l af7-12cb67 Mi nn 834ec7 2016-02-21 2016-02-21 5 month nullFlavo Knippa 6415f 993-3 [facility] 14:30:00 14:30:00 follow up r Specialties 6x4-87xt -9 l 1b5-6p8539 Mi nn 7m1254 2016-02-21 2016-02-21 5 month nullFlavo Knippa 56451 097-c [facility] 14:30:00 14:30:00 follow up r Specialties i65-033j -b l 491-790e12 Mi nn 7d17b0 2016-02-21 2016-02-21 5 month nullFlavo Knippa dfd91 c2b-a [facility] 13:30:00 13:30:00 follow up r Specialties 9ea-4d76 -b l 240-8bw882 Mi nn [id number] 2016-02-12 2016-02-12 Pt came by nullFlavo Knippa 52 6a39wt-0 [facility] 14:59:00 14:59:00 the office r Specialties 01e-47b 5-b l 661-77936f Mi nn bcade9 2016-02-12 2016-02-12 Pt came by nullFlavo Knippa b8 905a65-5 [facility] 14:59:00 14:59:00 the office r Specialties 65b-409 4-a l 3ed-ceb1fd Mi nn 45d4f6 2016-02-12 2016-02-12 Pt came by nullFlavo Knippa 94 0my4ex-1 [facility] 14:59:00 14:59:00 the office r Specialties 086-4bb 4-a l 4e4-u65rb0 Mi nn jz230w 2016-02-12 2016-02-12 Pt came by nullFlavo Knippa 70 u99l41-r [facility] 14:59:00 14:59:00 the office r Specialties 29e-482 d-a l dd3-0jy473 Mi nn 2f3ce1 2016-02-12 2016-02-12 Pt came by nullFlavo Knippa 57 5y2l8p-1 [facility] 14:59:00 14:59:00 the office r Specialties 4o1-634 4-a l 84c-o92840 Mi nn 39e97b 2016-02-12 2016-02-12 Pt came by nullFlavo Knippa 68 54ec79-1 [facility] 13:59:00 13:59:00 the office r Specialties 43e-451 4-8 l v65-h916an Mi nn 23acdc 2016-01-14 2016-01-14 Refill nullFlavo Knippa 04545 c3f-8 [facility] 17:20:00 17:20:00 r Specialties fa0-479f-9 l 701-a810bc Mi nn 491f02 2016-01-14 2016-01-14 Refill nullFlavo Knippa a1977 517-5 [facility] 17:20:00 17:20:00 r Specialties i70-83xg-b l 9ad-663775 Mi nn 9437e9 2016-01-14 2016-01-14 Refill nullFlavo Knippa 4967b 5be-9 [facility] 17:20:00 17:20:00 r Specialties 303-4891-a l 140-03e489 Mi nn [id number] 9364-11-22 2016-01-14 Refill nullFlavo Knippa fc31f e21-5 [facility] 17:20:00 17:20:00 r Specialties 743-4e3b-8 l bff-cj814h Mi nn [id number] 2016-01-14 2016-01-14 Refill nullFlavo Knippa a4751 08a-3 [facility] 17:20:00 17:20:00 r Specialties 1s4-3y89-4 l d7k-77489e Mi nn a334db 2016-01-14 2016-01-14 Refill nullFlavo Knippa a9874 a1e-6 [facility] 17:20:00 17:20:00 r Specialties aaa-48c3-9 l 884-tr085r [facility] nn a24f36 2016-01-14 2016-01-14 Refill nullFlavo Knippa 937c1 0c5-2 [facility] 16:20:00 16:20:00 r Specialties 04a-4fa3-9 l 06e-14ce47 [facility] nn 580654 0096-11-14 2016-01-06 [place] [address] nullFlavo Knippa b0 8q179r-4 [facility] 19:16:00 19:16:00 r Specialties l3t-6562-q l w97-r7847s [facility] nn [id number] 2016-01-06 2016-01-06 [place] apt nullFlavo Knippa b7 021kv9-y [facility] 19:16:00 19:16:00 r Specialties 7o4-95w5-6 l g35-301g72 [facility] nn b94be6 2016-01-06 2016-01-06 [place] apt nullFlavo Knippa f5 xi8bv0-9 [facility] 19:16:00 19:16:00 r Specialties nathan-450c-b l 436-6dd2a3 Mi nn f496e3 2016-01-06 2016-01-06 [place] apt nullFlavo Knippa c9 1695j7-7 [facility] 19:16:00 19:16:00 r Specialties 050-4961-b l fd7-abf6b7 Mi nn d41d37 2016-01-06 2016-01-06 [place] apt nullFlavo Knippa e2 9q4484-3 [facility] 19:16:00 19:16:00 r Specialties 4q4-34f4-9 l 9d6-8g78l3 Mi nn 705d7d 2016-01-06 2016-01-06 [place] apt nullFlavo Knippa 9b 449z16-7 [facility] 19:16:00 19:16:00 r Specialties 163-4a63-a l 406-4010bb Mi nn 87eaf7 2016-01-06 2016-01-06 [place] apt nullFlavo Knippa 49 d26z06-1 [facility] 19:16:00 19:16:00 r Specialties abc-42ca-9 l 984-002588 Mi nn 348154 1856-11-14 2016-01-06 [place] apt nullFlavo Knippa 51 8291h1-3 [facility] 18:16:00 18:16:00 r Specialties 461-4e9f-8 l 6be-33n557 Mi nn [id number] 2015-12-23 2015-12-23 Accu-Chek nullFlavo Knippa 568 98q08-7 [facility] 17:33:00 17:33:00 Vivi r Specialties 6g7-224s-p l Strip 8a6-3z1a42 Mi nn Refill [id number] Request - refilled 2015-12-23 2015-12-23 Accu-Chek nullFlavo Knippa b61 10707-n [facility] 17:33:00 17:33:00 Vivi r Specialties 97a-4479-8 l Strip fba-0906c9 Mi nn Refill 0194a1 Request - refilled 2015-12-23 2015-12-23 Accu-Chek nullFlavo Knippa c14 nn630-8 [facility] 17:33:00 17:33:00 Vivi r Specialties 7v5-05vg-v l Strip 7r4-343274 Mi nn Refill [id number] Request - refilled 2015-12-23 2015-12-23 Accu-Chek nullFlavo Knippa 69a 06783-g [facility] 17:33:00 17:33:00 Vivi r Specialties d84-02md-x l Strip n3g-q66034 Mi nn Refill 813ea1 Request - refilled 2015-12-23 2015-12-23 Accu-Chek nullFlavo Knippa c6d 91k8d-1 [facility] 17:33:00 17:33:00 Vivi r Specialties 33c-49c2-a l Strip afe-e67d98 Mi nn Refill e2c91a Request - refilled 2015-12-23 2015-12-23 Accu-Chek nullFlavo Knippa ec2 jc69o-7 [facility] 17:33:00 17:33:00 Vivi r Specialties 56e-4220-b l Strip y58-7rc22v Mi nn Refill ba23e7 Request - refilled 2015-12-23 2015-12-23 Accu-Chek nullFlavo Knippa 69e r4647-3 [facility] 17:33:00 17:33:00 Vivi r Specialties q1w-3rg2-g l Strip 8u0-1r003r Mi nn Refill [id number] Request - refilled 2015-12-23 2015-12-23 Accu-Chek nullFlavo Knippa d46 335m9-x [facility] 17:33:00 17:33:00 Vivi r Specialties 10e-4b8c-a l Strip u60-o9i3vl Mi nn Refill ff3d66 Request - refilled 2015-12-23 2015-12-23 Accu-Chek nullFlavo Knippa 100 ne5k5-3 [facility] 16:33:00 16:33:00 [facility] 78c-4d34-b l Strip 08a-4faa71 Mi nn Refill 9079a1 Request - refilled 2015-12-23 2015-12-23 2wk f/u nullFlavo Knippa afea7 9f3-b [facility] 15:30:00 15:30:00 r Specialties 909-4e3d-9 l fbe-xw1772 Mi nn fg0164 2015-12-23 2015-12-23 2wk f/u nullFlavo Knippa e52a9 b38-1 [facility] 15:30:00 15:30:00 r Specialties ada-4942-b l 9de-d7f9ed Mi nn 0x8057 2015-12-23 2015-12-23 2wk f/u nullFlavo Knippa e3d7f e37-f [facility] 15:30:00 15:30:00 r Specialties 3a2-82id-j l 681-x52116 Mi nn [id number] 2015-12-23 2015-12-23 2wk f/u nullFlavo Knippa ff394 f2d-b [facility] 15:30:00 15:30:00 r Specialties 414-4fb8-b l x2a-zsd455 Mi nn [id number] 2015-12-23 2015-12-23 2wk f/u nullFlavo Knippa 9c141 ea3-f [facility] 15:30:00 15:30:00 r Specialties x05-02s5-x l 3x9-488954 Mi nn 191d34 2015-12-23 2015-12-23 2wk f/u nullFlavo Knippa a1ccd 7e7-1 [facility] 15:30:00 15:30:00 r Specialties n04-4271-6 l 85d-5df38b Mi nn 4194c5 2015-12-23 2015-12-23 2wk f/u nullFlavo Knippa a0c1f 388-d [facility] 15:30:00 15:30:00 r Specialties fa5-4b86-9 l def-su1798 Mi nn bfbffd 2015-12-23 2015-12-23 2wk f/u nullFlavo Knippa 89b45 a53-4 [facility] 15:30:00 15:30:00 r Specialties 72b-4c12-9 l 5bc-5zf198 Mi nn 6f7382 2015-12-23 2015-12-23 2wk f/u nullFlavo Knippa 28053 47e-8 [facility] 15:30:00 15:30:00 r Specialties 868-4547-b l ccc-977f1c Mi nn 087560 8613-10-31 2015-12-23 2wk f/u nullFlavo Knippa f1f54 949-b [facility] 14:30:00 14:30:00 r Specialties fd1-477e-8 l 611-1cbc1d Mi nn ad7d31 2015-12-13 2015-12-13 Test nullFlavo Knippa 3a7fc 199-5 [facility] 00:41:00 00:41:00 results r Specialties 6fa-4741-8 l v42-4z6794 Mi nn 628a99 2015-12-13 2015-12-13 Test nullFlavo Knippa 5a334 0f7-b [facility] 00:41:00 00:41:00 results r Specialties 929-472f-b l l26-ir126u Mi nn ty3739 2015-12-13 2015-12-13 Test nullFlavo Knippa c0b71 794-d [facility] 00:41:00 00:41:00 results r Specialties 6w7-1r55-7 l 746-faeb83 [facility] nn 64d76d 2015-12-13 2015-12-13 Test nullFlavo Knippa d5228 91f-4 [facility] 00:41:00 00:41:00 results r Specialties 61b-4a51-b l t56-419643 [facility] nn 37e6a2 2015-12-13 2015-12-13 Test nullFlavo Knippa c41c2 luh-1 [facility] 00:41:00 00:41:00 results r Specialties 339-4dbd-9 l fd8-841568 [facility] nn 0cacd3 2015-12-13 2015-12-13 Test nullFlavo Knippa c79eb 6f2-3 [facility] 00:41:00 00:41:00 results r Specialties o68-4282-2 l cdd-831120 [facility] nn 13d7f9 2015-12-13 2015-12-13 Test nullFlavo Knippa 4e971 383-d [facility] 00:41:00 00:41:00 results r Specialties 640-43ae-a l 2l1-e5v232 [facility] nn sj736i 2015-12-13 2015-12-13 Test nullFlavo Knippa 7b584 411-f [facility]oria 00:41:00 00:41:00 results r Specialties ddb-4b5a-8 l 280-9d2d63 [facility] nn 53b6b8 2015-12-13 2015-12-13 Test nullFlavo Knippa de116 15d-0 Memoria 00:41:00 00:41:00 results r Specialties 2p5-2625-3 l 53c-ebd4f0 [facility] nn 5bba41 2015-12-13 2015-12-13 Test nullFlavo Knippa 8fe69 6dc-9 Memoria 00:41:00 00:41:00 results r Specialties 643-4d5a-9 l 084-824ec4 Mi nn 10625r 2015-12-12 2015-12-12 Test nullFlavo Knippa d1dc1 ab5-8 [facility]oria 23:41:00 23:41:00 results r Specialties 29d-4657-8 l 27a-48e3d7 Mi nn 68239b 2015-12-09 2015-12-09 FYI/ nullFlavo Knippa 1c1aa 485-1 [facility] 17:25:00 17:25:00 physical r Specialties dc0-4d47- 8 l therapy 2j1-7hdil5 Mi nn o6472h 2015-12-09 2015-12-09 FYI/ nullFlavo Knippa 07fb2 07c-6 [facility] 17:25:00 17:25:00 physical r Specialties n9q-994w- 8 l therapy j4l-560z5d Mi nn 6697e8 2015-12-09 2015-12-09 FYI/ nullFlavo Knippa 16f66 943-d [facility] 17:25:00 17:25:00 physical r Specialties 49c-4fb4- 8 l therapy 201-d77dcc Mi nn 0885f2 2015-12-09 2015-12-09 FYI/ nullFlavo Knippa 3668e 3b5-8 [facility] 17:25:00 17:25:00 physical r Specialties erik-4b9e- 8 l therapy 0db-5n6903 Mi nn 5cf24a 2015-12-09 2015-12-09 FYI/ nullFlavo Knippa b5f3f efa-2 [facility] 17:25:00 17:25:00 physical r Specialties w57-6507- 8 l therapy 89c-d1d28f Mi nn 4c4e5f 2015-12-09 2015-12-09 FYI/ nullFlavo Knippa 595f7 626-5 [facility] 17:25:00 17:25:00 physical r Specialties r2n-0a1u- a l therapy ac7-765415 Mi nn 8p7969 2015-12-09 2015-12-09 FYI/ nullFlavo Knippa 248c5 bb0-4 [facility] 17:25:00 17:25:00 physical r Specialties 242-49f4- 9 l therapy 129-2w3653 Mi nn 63k419 2015-12-09 2015-12-09 FYI/ nullFlavo Knippa 2877d 58b-3 [facility] 17:25:00 17:25:00 physical r Specialties dca-4061- 8 l therapy 9p5-9206h6 Mi nn d12df2 2015-12-09 2015-12-09 FYI/ nullFlavo Knippa bcd15 590-1 [facility] 17:25:00 17:25:00 physical r Specialties aad-4d96- a l therapy 539-fa6b8e Mi nn 00bc09 2015-12-09 2015-12-09 FYI/ nullFlavo Knippa bff7f jenifer-7 [facility] 17:25:00 17:25:00 physical r Specialties 4dc-43f7- a l therapy 740-5b6d7a Mi masterson d13dea 2015-12-09 2015-12-09 FYI/ nullFlavo Knippa 4a82f 87e-4 [facility] 17:25:00 17:25:00 physical r Specialties fd7-4c4b- b l therapy 83e-df7d94 Mi masterson i04390 2015-12-09 2015-12-09 Needing nullFlavo Knippa 19f95 9d7-2 [facility] 16:36:00 16:36:00 Orders: r Specialties l76-4y67-e l Mammo & 632-f7ee49 Mi nn Ultra: c70e00 Appt 2015-12-09 2015-12-09 Needing nullFlavo Knippa 9a53b de4-c [facility] 16:36:00 16:36:00 Orders: r Specialties 595-450a-8 l Mammo & 3l0-ji27a6 Mi nn Ultra: 02g925 Appt 2015-12-09 2015-12-09 Needing nullFlavo Knippa ab2ab 7ca-9 [facility] 16:36:00 16:36:00 Orders: r Specialties t01-4250-1 l Mammo & adf-ea13f4 Mi nn Ultra: aeb7ce Appt Th2015-12-09 2015-12-09 Needing nullFlavo Knippa 804c2 a79-a [facility] 16:36:00 16:36:00 Orders: r Specialties 256-4b27-9 l Mammo & 7bc-fbc9c7 Mi nn Ultra: d3356y Appt 2015-12-09 2015-12-09 Needing nullFlavo Knippa 3ef9c dc1-d [facility] 16:36:00 16:36:00 Orders: r Specialties 746-4a7e-8 l Mammo & 4cb-b556cc Mi nn Ultra: 310495 Appt 2015-12-09 2015-12-09 Needing nullFlavo Knippa 86fe5 4c6-b [facility] 16:36:00 16:36:00 Orders: r Specialties 7z0-53g7-m l Mammo & fe5-ab28e6 Mi nn Ultra: f8cc6f Appt 2015-12-09 2015-12-09 Needing nullFlavo Knippa 85c5c e23-e [facility] 16:36:00 16:36:00 Orders: r Specialties 88d-4da9-8 l Mammo & cc9-f74a3e Mi nn Ultra: d9c0ff Appt 2015-12-09 2015-12-09 Needing nullFlavo Knippa b4124 04c-0 [facility] 16:36:00 16:36:00 Orders: r Specialties eba-4143-8 l Mammo & 4ad-e835ab Mi nn Ultra: 39d9ff Appt 2015-12-09 2015-12-09 Needing nullFlavo Knippa 790b7 3da-8 [facility] 16:36:00 16:36:00 Orders: r Specialties [place]er [place] dried salt-423e-9 l Mammo & 0e9-o79x1i Im nn Ultra: 983f27 Appt 2015-12-09 2015-12-09 Needing nullFlavo Knippa a12df a76-1 [facility] 16:36:00 16:36:00 Orders: r Specialties edf-48eb-9 l Mammo & 6eb-e8baac Mi nn Ultra: 0731e7 Appt 2015-12-09 2015-12-09 Needing nullFlavo Knippa b0768 e9f-c [facility] 16:36:00 16:36:00 Orders: r Specialties ed9-4978-b l Mammo & 481-w23471 Mi nn Ultra: 308259 Appt 2015-12-09 2015-12-09 Needing nullFlavo Knippa ff94f 22b-6 [facility] 16:36:00 16:36:00 Orders: r Specialties 95a-4292-8 l Mammo & l2h-r46m03 Mi nn Ultra: 358157 Appt 2015-12-09 2015-12-09 Needing nullFlavo Knippa e10c3 052-f [facility] 16:36:00 16:36:00 Orders: r Specialties i31-87d3-4 l Mammo & 956-ada8fa Mi nn Ultra: d80ce4 Appt 2015-12-09 2015-12-09 FYI/ nullFlavo Knippa 14c94 71e-8 [facility] 16:25:00 16:25:00 physical r Specialties 8af-4c50- b l therapy ce8-2966f9 Mi nn d5ff4b 2015-12-09 2015-12-09 Stomach nullFlavo Knippa f1225 973-6 [facility] 16:00:00 16:00:00 Pain: r Specialties 31c-44b4-9 l Around p92-e97461 Mi nn Waistline q4375p 2015-12-09 2015-12-09 Stomach nullFlavo Knippa f705d 538-8 [facility] 16:00:00 16:00:00 Pain: r Specialties v10-7q3y-h l Around 8dc-e93adb Mi nn Waistline 5d8174 2015-12-09 2015-12-09 Stomach nullFlavo Knippa d6bfb 8db-e [facility] 16:00:00 16:00:00 Pain: r Specialties 16f-4411-b l Around 970-7076a9 Mi nn Waistline bf5f2e 2015-12-09 2015-12-09 Stomach nullFlavo Knippa 23f54 [place]er [place] dried salt-3 [facility] 16:00:00 16:00:00 Pain: r Specialties afb-42e0-8 l Around 096-016735 Mi nn Waistline e64a11 2015-12-09 2015-12-09 Stomach nullFlavo Knippa c1db5 a44-e [facility] 16:00:00 16:00:00 Pain: r Specialties w48-6301-i l Around l8l-07cx7v Mi nn Waistline 5ab35b 2015-12-09 2015-12-09 Stomach nullFlavo Knippa 24dc4 972-d [facility] 16:00:00 16:00:00 Pain: r Specialties 284-473e-b l Around k4p-11w347 Mi nn Waistline bd6a90 2015-12-09 2015-12-09 Stomach nullFlavo Knippa 10cdc af4-a [facility] 16:00:00 16:00:00 Pain: r Specialties c6b-8567-2 l Around 228-47335b Mi nn Waistline 42f4a9 2015-12-09 2015-12-09 Stomach nullFlavo Knippa bbf2c ea8-e [facility] 16:00:00 16:00:00 Pain: r Specialties e7z-96ic-5 l Around 08a-12929b Mi Waistline s05241 2015-12-09 2015-12-09 Stomach nullFlavo Knippa b28bb 704-a [facility] 16:00:00 16:00:00 Pain: r Specialties 789-4fa4-a l Around feb-121389 Mi nn Waistline 55064i 2015-12-09 2015-12-09 Stomach nullFlavo Knippa a8719 f25-f [facility] 16:00:00 16:00:00 Pain: r Specialties h0v-290i-w l Around 152-17e6b2 Mi nn Waistline 86e3cd 2015-12-09 2015-12-09 Stomach nullFlavo Knippa 6aa36 9e4-2 [facility] 16:00:00 16:00:00 Pain: r Specialties 4be-4b67-8 l Around ff0-c1s026 Mi nn Waistline a28c77 2015-12-09 2015-12-09 Stomach nullFlavo Knippa f1f4e 045-a [facility] 16:00:00 16:00:00 Pain: r Specialties 60f-4925-8 l Around l3j-9h4926 Mi nn Waistline 0dce5b 2015-12-09 2015-12-09 Stomach nullFlavo Knippa e801b f2c-0 [facility] 16:00:00 16:00:00 Pain: r Specialties h10-066p-v l Around 6cd-42cbf4 Mi nn Waistline 4p4931 2015-12-09 2015-12-09 Needing nullFlavo Knippa 47fa4 9d0-2 [facility] 15:36:00 15:36:00 Orders: r Specialties y32-0898-7 l Mammo & 8e2-728s7f Mi nn Ultra: 2fbff3 Appt 2015-12-09 2015-12-09 Stomach nullFlavo Knippa 0b353 388-8 [facility] 15:00:00 15:00:00 Pain: r Specialties u34-036j-2 l Around o61-5nv0r9 Mi nn Waistline 172455 6452-10-03 2015-11-25 Novolin nullFlavo Knippa ac425 81b-8 [facility] 20:39:00 20:39:00 70/30(Reli r Specialties 3eb-481 3-9 l on) Vial ec4-16ec1d Herm junaid Refill [id number] Request - refilled 2015-11-25 2015-11-25 Novolin nullFlavo Knippa 51726 1f9-f [facility] 20:39:00 20:39:00 70/30(Reli r Specialties 586-4cc f-a l on) Vial c08-rr7p37 Herm junaid Refill w8r828 Request - refilled 2015-11-25 2015-11-25 Novolin nullFlavo Knippa 4dd8d f29-0 [facility] 20:39:00 20:39:00 70/30(Reli r Specialties 29b-40f 9-9 l on) Vial 8ad-6a453r Herm junaid Refill y3366j Request - refilled 2015-11-25 2015-11-25 Novolin nullFlavo Knippa 5e59a 48b-9 [facility] 20:39:00 20:39:00 70/30(Reli r Specialties p9h-042 0-8 l on) Vial 05a-82faac Herm junaid Refill c72e6b Request - refilled 2015-11-25 2015-11-25 Novolin nullFlavo Knippa 6aa9a adc-2 [facility] 20:39:00 20:39:00 70/30(Reli r Specialties q8o-65a 7-b l on) Vial u5s-26k276 Herm junaid Refill z2162x Request - refilled 2015-11-25 2015-11-25 Novolin nullFlavo Knippa b4d91 f83-c [facility] 20:39:00 20:39:00 70/30(Reli r Specialties 952-47e 6-8 l on) Vial 1ec-389fba Herm junaid Refill 1a25d2 Request - refilled 2015-11-25 2015-11-25 Novolin nullFlavo Knippa fcf62 89f-8 [facility]oria 20:39:00 20:39:00 70/30(Reli r Specialties ec8-4f4 7-a l on) Vial 80b-05ece5 Herm junaid Refill 04c6ea Request - refilled 2015-11-25 2015-11-25 Novolin nullFlavo Knippa c2b2d d82-f [facility]oria 20:39:00 20:39:00 70/30(Reli r Specialties 0u6-638 8-a l on) Vial 167-81w215 Herm junaid Refill 43193y Request - refilled 2015-11-25 2015-11-25 Novolin nullFlavo Knippa 6cbb3 e73-f [facility] 20:39:00 20:39:00 70/30(Reli r Specialties r8z-50j b-b l on) Vial j90-7n2c25 Herm junaid Refill c9ee00 Request - refilled 2015-11-25 2015-11-25 Novolin nullFlavo Knippa 91849 437-f [facility] 20:39:00 20:39:00 70/30(Reli r Specialties b57-457 2-b l on) Vial 045-e7eee1 Herm junaid Refill 51ebf1 Request - refilled 2015-11-25 2015-11-25 Novolin nullFlavo Knippa c4fb1 494-f [facility] 20:39:00 20:39:00 70/30(Reli r Specialties d48-425 d-a l on) Vial 030-a07ab7 Herm junaid Refill 1k815b Request - refilled 2015-11-25 2015-11-25 Novolin nullFlavo Knippa bc432 23e-1 [facility] 20:39:00 20:39:00 70/30(Reli r Specialties bc6-4d7 0-a l on) Vial ae1-657db6 Herm junaid Refill 77d37e Request - refilled 2015-11-25 2015-11-25 Novolin nullFlavo Knippa d10b1 72e-5 [facility] 20:39:00 20:39:00 70/30(Reli r Specialties 79c-4ed d-8 l on) Vial o56-90159b Herm junaid Refill e4ece0 Request - refilled 2015-11-25 2015-11-25 Novolin nullFlavo Knippa 3a381 c01-6 [facility] 19:39:00 19:39:00 70/30(Reli r Specialties d50-4e1 2-8 l on) Vial x12-21n357 Herm junaid Refill c63f5d Request - refilled 2015-11-25 2015-11-25 Novolin nullFlavo Knippa b9c50 cdc-3 [facility] 19:39:00 19:39:00 /30(Reli r Specialties 86d-40a d-8 l on) Vial n59-87v41e Herm junaid Refill 50543l Request - refilled 2015-11-22 2015-11-22 Requesting nullFlavo Knippa 01 04v7x7-1 [facility] 17:43:00 17:43:00 Antibiotic r Specialties b94-458 2-a l s For 98a-i7o176 Mi nn Tooth Ache 311c73 2015-11-22 2015-11-22 Requesting nullFlavo Knippa aa 971fad-4 [facility] 17:43:00 17:43:00 Antibiotic r Specialties 72e-488 c-b l s For 9l1-1k2x9l Mi nn Tooth Ache dd32d2 2015-11-22 2015-11-22 Requesting nullFlavo Knippa b6 l615u1-8 [facility] 17:43:00 17:43:00 Antibiotic r Specialties 9h8-8d6 1-b l s For be4-4739d1 Mi nn Tooth Ache 23334x 2015-11-22 2015-11-22 Requesting nullFlavo Knippa c6 48bqb5-o [facility] 17:43:00 17:43:00 Antibiotic r Specialties b18-430 d-8 l s For h07-55p1z6 Mi nn Tooth Ache 6h8936 2015-11-22 2015-11-22 Requesting nullFlavo Knippa 3d 9sys5i-v [facility] 17:43:00 17:43:00 Antibiotic r Specialties 2fd-4da c-9 l s For v31-0a85v0 Mi nn Tooth Ache 0wx019 2015-11-22 2015-11-22 Requesting nullFlavo Knippa bd 371682-m [facility] 17:43:00 17:43:00 Antibiotic r Specialties e41-401 7-8 l s For 06e-61f7f7 Mi nn Tooth Ache 0c3a4f 2015-11-22 2015-11-22 Requesting nullFlavo Knippa 8f 7th47y-p [facility] 17:43:00 17:43:00 Antibiotic r Specialties 178-468 6-a l s For u98-323r85 Mi nn Tooth Ache jh4109 2015-11-22 2015-11-22 Requesting nullFlavo Knippa 25 68qb93-2 [facility] 17:43:00 17:43:00 Antibiotic r Specialties z9h-236 a-a l s For o06-pv4nm4 Mi nn Tooth Ache ae5a67 2015-11-22 2015-11-22 Requesting nullFlavo Knippa 4f k34g80-j [facility] 17:43:00 17:43:00 Antibiotic r Specialties e97-485 1-a l s For o26-793833 Mi nn Tooth Ache a0bed2 2015-11-22 2015-11-22 Requesting nullFlavo Knippa f7 b0j961-4 [facility] 17:43:00 17:43:00 Antibiotic r Specialties c1n-449 a-b l s For ad3-0845c4 Mi nn Tooth Ache 4c9e2d 2015-11-22 2015-11-22 Requesting nullFlavo Knippa d3 176m1n-b [facility] 17:43:00 17:43:00 Antibiotic r Specialties 341-421 c-8 l s For 345-ea5b91 Mi nn Tooth Ache 703add 2015-11-22 2015-11-22 Requesting nullFlavo Knippa 66 1lh5ze-0 [facility] 17:43:00 17:43:00 Antibiotic r Specialties bf8-425 c-9 l s For 0p0-kcm7h1 Mi nn Tooth Ache 6dd6bc 2015-11-22 2015-11-22 Requesting nullFlavo Knippa 10 h4ei3r-6 [facility]oria 17:43:00 17:43:00 Antibiotic r Specialties 468-4f8 4-8 l s For 973-914e9a Mi nn Tooth Ache 5a70da 2015-11-22 2015-11-22 Requesting nullFlavo Knippa 4c 4j5200-4 [facility] 16:43:00 16:43:00 Antibiotic r Specialties dd3-4be b-9 l s For 1c9-r63e3t Mi nn Tooth Ache f3ddd9 2015-11-22 2015-11-22 Requesting nullFlavo Knippa eb 77r43n-s [facility] 16:43:00 16:43:00 Antibiotic r Specialties 676-41c 1-9 l s For 318-723f33 Mi nn Tooth Ache v58144 2015-11-22 2015-11-22 Requesting nullFlavo Knippa 5c dry253-9 [facility] 16:43:00 16:43:00 Antibiotic r Specialties 6d8-8r8 5-9 l s For t77-36hy9k Mi nn Tooth Ache 58p307 2015-11-18 2015-11-18 4 WK F/U nullFlavo Knippa 67f0 209a-a [facility] 14:30:00 14:30:00 r Specialties d24-10l0-3 l 230-9080fc Mi nn 71s504 2015-11-18 2015-11-18 4 WK F/U nullFlavo Knippa 796c 8ef6-6 [facility] 14:30:00 14:30:00 r Specialties d2h-8465-3 l 9u3-3n6802 Mi nn ec5a62 2015-11-18 2015-11-18 4 WK F/U nullFlavo Knippa 4c62 9ef8-5 [facility] 14:30:00 14:30:00 r Specialties z65-5544-e l de7-af5e79 Mi nn ba99e6 2015-11-18 2015-11-18 4 WK F/U nullFlavo Knippa 5520 b96a-4 [facility] 14:30:00 14:30:00 r Specialties y15-3u01-n l 68b-ebaecc Mi nn 6a1542 2015-11-18 2015-11-18 4 WK F/U nullFlavo Knippa 24a4 70fe-0 [facility] 14:30:00 14:30:00 r Specialties 63f-4d6c-a l 1u0-18q92c Mi nn b6f1ab 2015-11-18 2015-11-18 4 WK F/U nullFlavo Knippa 3851 3125-1 [facility] 14:30:00 14:30:00 r Specialties 2v8-0sz0-7 l 036-124c10 Mi nn 714afa 2015-11-18 2015-11-18 4 WK F/U nullFlavo Knippa aebb 7a52-0 [facility] 14:30:00 14:30:00 r Specialties 1d8-3459-i l b1t-59py18 Mi nn 108896 3500-09-26 2015-11-18 4 WK F/U nullFlavo Knippa 42aa 0a59-0 [facility] 14:30:00 14:30:00 r Specialties 564-4ea0-a l fd9-49052n Mi nn 85d1e4 2015-11-18 2015-11-18 4 WK F/U nullFlavo Knippa 4ac1 6973-1 [facility] 14:30:00 14:30:00 r Specialties 7cf-4355-b l h7u-98ugli Mi nn w83443 2015-11-18 2015-11-18 4 WK F/U nullFlavo Knippa b4ab 2767-1 [facility] 14:30:00 14:30:00 r Specialties ea5-4cbb-b l 88f-2a7e20 Mi nn a21f4f 2015-11-18 2015-11-18 4 WK F/U nullFlavo Knippa 1b6d fdc2-d [facility] 14:30:00 14:30:00 r Specialties 2t5-07o0-6 l 43d-86j438 Mi nn c998d6 2015-11-18 2015-11-18 4 WK F/U nullFlavo Knippa 0f5f 29c5-0 [facility] 14:30:00 14:30:00 r Specialties dc3-41aa-8 l n8y-a9oa7i Mi nn hoo323 2015-11-18 2015-11-18 4 WK F/U nullFlavo Knippa 1c2d 45f0-b [facility] 14:30:00 14:30:00 r Specialties 5h5-6t0w-k l n29-7ljm86 Mi nn 104911 5234-09-26 2015-11-18 4 WK F/U nullFlavo Knippa a2f8 897b-a [facility] 13:30:00 13:30:00 r Specialties 634-4ad3-b l k45-u1qy8m Mi nn 3473eb 2015-11-18 2015-11-18 4 WK F/U nullFlavo Knippa c033 cb28-7 [facility] 13:30:00 13:30:00 r Specialties 3x6-70m4-g l p5b-n5d1m8 Mi nn b070d9 2015-11-18 2015-11-18 4 WK F/U nullFlavo Knippa e1a8 6ca3-5 [facility] 13:30:00 13:30:00 r Specialties 0i8-9sh8-z l 09e-16936y Mi nn 77r357 2015-11-18 2015-11-18 4 WK F/U nullFlavo Knippa 980e 83b4-f [facility] 13:30:00 13:30:00 r Specialties 199-4cae-9 l 93a-fd26e1 Mi nn f3f2b8 2015-11-11 2015-11-11 Novoling(R nullFlavo Knippa 56 03s58i-9 [facility] 17:25:00 17:25:00 elion) r Specialties w9s-7k37-a l 70/30 554-03e62b Mi nn Refill 5g8132 Request - refilled 2015-11-11 2015-11-11 Novoling(R nullFlavo Knippa d6 zt93z0-4 [facility] 17:25:00 17:25:00 elion) r Specialties 724-4d34-a l 70/30 242-r3y599 Mi nn Refill a961b8 Request - refilled 2015-11-11 2015-11-11 Novoling(R nullFlavo Knippa 37 rr62w4-b [facility] 17:25:00 17:25:00 elion) r Specialties 557-4fe1-a l 70/30 0dd-93f76c Mi nn Refill e62a00 Request - refilled 2015-11-11 2015-11-11 Novoling(R nullFlavo Knippa cf j96e04-8 [facility] 17:25:00 17:25:00 elion) r Specialties ae6-47bd-9 l 70/30 l9n-4u5rj0 Mi nn Refill 1150e9 Request - refilled 2015-11-11 2015-11-11 Novoling(R nullFlavo Knippa 33 j1bpv0-z [facility] 17:25:00 17:25:00 elion) r Specialties 1n5-2531-3 l 70/30 059-8r4947 Mi nn Refill dcd93e Request - refilled 2015-11-11 2015-11-11 Novoling(R nullFlavo Knippa af 1v4c54-3 [facility] 17:25:00 17:25:00 elion) r Specialties f62-7228-9 l 70/30 5ba-c13fb8 Mi nn Refill f27f8c Request - refilled 2015-11-11 2015-11-11 Novoling(R nullFlavo Knippa 35 468t61-k [facility] 17:25:00 17:25:00 elion) r Specialties 2bf-42c3-8 l 70/30 5ec-6adb38 Mi nn Refill 990fc1 Request - refilled 2015-11-11 2015-11-11 Novoling(R nullFlavo Knippa 93 2903ae-2 [facility] 17:25:00 17:25:00 elion) r Specialties 44f-49f1-b l 70/30 848-835e85 Mi nn Refill 552f16 Request - refilled 2015-11-11 2015-11-11 Novoling(R nullFlavo Knippa 03 2c2v1n-6 [facility] 17:25:00 17:25:00 elion) r Specialties v80-276z-w l 70/30 7t9-gy2797 Mi nn Refill dea1b7 Request - refilled 2015-11-11 2015-11-11 Novoling(R nullFlavo Knippa 61 32a37m-0 [facility] 17:25:00 17:25:00 elion) r Specialties u86-7ba5-i l 70/30 856-6ff7da Mi nn Refill 94ab12 Request - refilled 2015-11-11 2015-11-11 Novoling(R nullFlavo Knippa 83 j0k356-1 [facility] 17:25:00 17:25:00 elion) r Specialties u1g-11a0-1 l 70/30 211-41e6b1 Mi nn Refill f0cc9d Request - refilled 2015-11-11 2015-11-11 Novoling(R nullFlavo Knippa 3c 400714-3 [facility] 17:25:00 17:25:00 elion) r Specialties ea8-4418-9 l 70/30 0c9-7y3a2z Mi nn Refill 938db4 Request - refilled 2015-11-11 2015-11-11 Novoling(R nullFlavo Knippa 9e t06094-3 [facility] 17:25:00 17:25:00 elion) r Specialties 368-4818-b l 70/30 401-381949 Mi nn Refill 405d17 Request - refilled 2015-11-11 2015-11-11 Novoling(R nullFlavo Knippa a1 -b [facility] 16:25:00 16:25:00 elion) r Specialties d04-968b-i l 70/30 2t3-3c74i4 Mi nn Refill 5c7ff0 Request - refilled 2015-11-11 2015-11-11 Novoling(R nullFlavo Knippa 50 76j7e2-4 [facility] 16:25:00 16:25:00 elion) r Specialties 79b-4212-b l 70/30 1l3-i82g00 Mi nn Refill e54fa7 Request - refilled 2015-11-11 2015-11-11 Novoling(R nullFlavo Knippa cc 257149-7 [facility] 16:25:00 16:25:00 elion) r Specialties 8d1-5338-2 l 70/30 715-5dd1ea Mi nn Refill 565c4b Request - refilled 2015-11-11 2015-11-11 Novoling(R nullFlavo Knippa 56 32p253-3 [facility] 16:25:00 16:25:00 elion) r Specialties 1r4-9ay4-s l 70/30 dff-t1589r [facility] nn Refill 2448c2 Request - refilled 2015-11-11 2015-11-11 Novoling(R nullFlavo Knippa 80 205365-6 [facility] 16:25:00 16:25:00 elion) r Specialties 949-4186-8 l 70/30 42b-80bbcf [facility] nn Refill 23bdcd Request - refilled 2015-10-18 2015-10-18 Sooner nullFlavo Knippa dfd3b 6e6-e [facility] 19:20:00 19:20:00 appt. r Specialties ff6-4cdb-b l <LVM09/06> 3a7-9525s3 [facility] 7qo778 2015-10-18 2015-10-18 Sooner nullFlavo Knippa 45796 2f6-c [facility] 19:20:00 19:20:00 appt. r Specialties 9a5-195g-k l <LVM09/06> eba-428345 [facility] 9651b0 2015-10-18 2015-10-18 Sooner nullFlavo Knippa f163e c1f-9 [facility] 19:20:00 19:20:00 appt. r Specialties v3z-4pf9-9 l <LVM09/06> fe5-afea02 [facility] ec25ce 2015-10-18 2015-10-18 Sooner nullFlavo Knippa 4c8ad 1ed-a [facility] 19:20:00 19:20:00 appt. r Specialties 166-473e-8 l <LVM09/06> 9j8-2dhmx5 [facility] 3430bf 2015-10-18 2015-10-18 Sooner nullFlavo Knippa 903ce 9d6-1 [facility] 19:20:00 19:20:00 appt. r Specialties 917-4b9c-9 l <LVM09/06> amanuel-4444e5 [facility] d8c9aa 2015-10-18 2015-10-18 Sooner nullFlavo Knippa 82636 3c3-1 [facility] 19:20:00 19:20:00 appt. r Specialties 660-4d77-9 l <LVM09/06> 546-b4f9e7 [facility] 51b46a 2015-10-18 2015-10-18 Sooner nullFlavo Knippa 842ec 8b2-8 [facility] 19:20:00 19:20:00 appt. r Specialties ce8-4a62-a l <LVM09/06> [id number] [facility] d2d8f2 2015-10-18 2015-10-18 Sooner nullFlavo Knippa 4f5bc 85a-1 [facility] 19:20:00 19:20:00 appt. r Specialties d4h-705v-3 l <LVM09/06> 0t0-6khmb3 [facility] 9751d5 2015-10-18 2015-10-18 Sooner nullFlavo Knippa 8c04d f4c-7 [facility] 19:20:00 19:20:00 appt. r Specialties d63-48a1-d l <LVM09/06> 097-5b93c3 [facility] 0f30c6 2015-10-18 2015-10-18 Sooner nullFlavo Knippa 6d21d fc4-c [facility] 19:20:00 19:20:00 appt. r Specialties f48-2gh0-5 l <LVM09/06> 95d-bcbc66 [facility] cdd98b 2015-10-18 2015-10-18 Sooner nullFlavo Knippa 98a6a fb1-3 [facility] 19:20:00 19:20:00 appt. r Specialties fb8-44b1-9 l <LVM09/06> [id number] [facility] 6k3044 2015-10-18 2015-10-18 Sooner nullFlavo Knippa 95018 d24-1 [facility] 19:20:00 19:20:00 appt. r Specialties m51-4fz8-c l <LVM09/06> 84c-it6891 [facility] a726cd 2015-10-18 2015-10-18 Sooner nullFlavo Knippa c40ee 12e-a [facility] 19:20:00 19:20:00 appt. r Specialties 1s7-3569-y l <LVM09/06> eae-0264c5 [facility] mxl304 2015-10-18 2015-10-18 Sooner nullFlavo Knippa 6e026 026-4 [facility] 18:20:00 18:20:00 appt. r Specialties 2v7-9x14-r l <LVM09/06> [id number] [facility] 275e36 2015-10-18 2015-10-18 Sooner nullFlavo Knippa a9441 f54-f [facility] 18:20:00 18:20:00 appt. r Specialties y06-6556-o l <LVM09/06> 17d-8fdf2a [facility] 132107 3117-08-26 2015-10-18 Sooner nullFlavo Knippa 05010 535-8 [facility] 18:20:00 18:20:00 appt. r Specialties fee-4be9-8 l <LVM09/06> s6b-906t78 [facility] 7b6d39 2015-10-18 2015-10-18 Sooner nullFlavo Knippa f248b f57-a [facility] 18:20:00 18:20:00 appt. r Specialties 5de-497d-b l <LVM09/06> 15c-37851s [facility] 5888dc 2015-10-18 2015-10-18 Sooner nullFlavo Knippa fd4ed 39b-e [facility] 18:20:00 18:20:00 appt. r Specialties ac1-412a-8 l <LVM09/06> 1d2-47t8i6 [facility] b3c57f 2015-10-18 2015-10-18 Sooner nullFlavo Knippa 2cba9 116-6 [facility] 18:20:00 18:20:00 appt. r Specialties 1n9-6l07-m l <LVM09/06> 3t3-6491q2 [facility] 75c1fa 2015-10-14 2015-10-14 Referral nullFlavo Knippa eef0 fdce-2 [facility] 20:33:00 20:33:00 r Specialties o99-48yb-3 l amanuel-817e82 Mi nn 9e0d32 2015-10-14 2015-10-14 Referral nullFlavo Knippa 2e4e 6845-e [facility] 20:33:00 20:33:00 r Specialties 929-4383-a l 1m1-5o7103 [facility] 020516 7708-08-22 2015-10-14 Referral nullFlavo Knippa b547 222f-3 [facility] 20:33:00 20:33:00 r Specialties 841-4f08-b l 0m7-347f9j [facility] [id number] 2015-10-14 2015-10-14 Referral nullFlavo Knippa e16b 084f-f [facility] 20:33:00 20:33:00 r Specialties i75-1t73-p l 070-67o839 [facility] l75300 2015-10-14 2015-10-14 Referral nullFlavo Knippa 8b1d 08a7-0 [facility] 20:33:00 20:33:00 r Specialties 063-43ee-9 l l38-7c4t1b [facility] f29cc0 2015-10-14 2015-10-14 Referral nullFlavo Knippa 99c5 f1f9-3 [facility] 20:33:00 20:33:00 r Specialties de9-45e2-9 l 51f-aff5d4 [facility] a9df34 2015-10-14 2015-10-14 Referral nullFlavo Knippa 7f53 a78a-1 [facility] 20:33:00 20:33:00 r Specialties 970-47bc-9 l b62-39887b [facility] hi050k 2015-10-14 2015-10-14 Referral nullFlavo Knippa fff2 6596-2 [facility] 20:33:00 20:33:00 r Specialties m91-31t6-r l z9u-8p8279 [facility] 9fca69 2015-10-14 2015-10-14 Referral nullFlavo Knippa 449b 25a3-8 [facility] 20:33:00 20:33:00 r Specialties bf3-4754-b l fd5-6f30ac [facility] 108bfc 2015-10-14 2015-10-14 Referral nullFlavo Knippa dcb7 a1c1-0 [facility] 20:33:00 20:33:00 r Specialties 8q9-80j8-l l eb5-d78c7b Mi nn 3ecc44 2015-10-14 2015-10-14 Referral nullFlavo Knippa 3076 b1ed-1 [facility] 20:33:00 20:33:00 r Specialties 6w1-1z1s-6 l 186-61b3b0 Mi nn a8cc53 2015-10-14 2015-10-14 Referral nullFlavo Knippa ac11 7c41-f [facility] 20:33:00 20:33:00 r Specialties z6q-5gn8-n l 385-eff2a1 Mi nn c85bf5 2015-10-14 2015-10-14 Referral nullFlavo Knippa d11d edf8-8 [facility] 20:33:00 20:33:00 r Specialties 65e-4e61-a l a71-ji69i3 Mi nn 646ed8 2015-10-14 2015-10-14 Referral nullFlavo Knippa c094 13f4-8 [facility] 19:33:00 19:33:00 r Specialties 159-4340-9 l 906-6993bf Mi nn 4ba305 2015-10-14 2015-10-14 Referral nullFlavo Knippa 154c 7bee-7 [facility] 19:33:00 19:33:00 r Specialties 9s4-073f-q l r40-1s4es8 Mi nn 10z227 2015-10-14 2015-10-14 Referral nullFlavo Knippa a177 2cce-7 [facility] 19:33:00 19:33:00 r Specialties d74-35ks-3 l k7d-6zlo6m Mi nn 4be54a 2015-10-14 2015-10-14 Referral nullFlavo Knippa f63d 2e91-2 [facility] 19:33:00 19:33:00 r Specialties 2ea-41b3-9 l 21e-217724 Mi nn 2ea4b9 2015-10-14 2015-10-14 Referral nullFlavo Knippa 18e2 38b5-2 [facility] 19:33:00 19:33:00 r Specialties 6i4-048w-3 l 3v3-w88z5m Mi nn 3792f2 2015-10-14 2015-10-14 Referral nullFlavo Knippa 2f2b 5946-f [facility] 19:33:00 19:33:00 r Specialties 924-4ed6-9 l 3e9-b4p6h6 Mi nn eec8f6 2015-10-14 2015-10-14 Referral nullFlavo Knippa e657 13f6-c [facility] 19:33:00 19:33:00 r Specialties 448-4a41-9 l 3a8-6386a0 [facility] nn 5baa7c 2015-10-14 2015-10-14 Referral nullFlavo Knippa 439d b711-7 [facility] 19:33:00 19:33:00 r Specialties 875-47a7-a l e6r-010vmf [facility] nn e77ea7 2015-10-14 2015-10-14 Hurt nullFlavo Knippa 5f675 371-5 [facility] 14:30:00 14:30:00 shoulder r Specialties d7r-6848- b l 043-9cf7b8 Mi nn 78efcc 2015-10-14 2015-10-14 Hurt nullFlavo Knippa e8b70 37d-e [facility] 14:30:00 14:30:00 shoulder r Specialties r00-2302- b l 94f-bec8d5 Mi nn 79cad9 2015-10-14 2015-10-14 Hurt nullFlavo Knippa a7685 04b-6 [facility] 14:30:00 14:30:00 shoulder r Specialties r52-3767- a l g18-um1897 [facility] nn 0529cf 2015-10-14 2015-10-14 Hurt nullFlavo Knippa 252c1 b01-b [facility] 14:30:00 14:30:00 shoulder r Specialties 3ca-4c93- 8 l x88-3m5t2f [facility] nn h3v427 2015-10-14 2015-10-14 Hurt nullFlavo Knippa 577a2 95a-b [facility] 14:30:00 14:30:00 shoulder r Specialties 09a-4846- b l 10c-276412 Mi nn 5c6ed9 2015-10-14 2015-10-14 Hurt nullFlavo Knippa 0edbf 211-7 [facility] 14:30:00 14:30:00 shoulder r Specialties f2z-9k50- b l 7w8-07i07f Mi nn 016c9d 2015-10-14 2015-10-14 Hurt nullFlavo Knippa 0c6e1 4b6-c [facility] 14:30:00 14:30:00 shoulder r Specialties 38a-4fd1- a l 40e-2fe2db Mi nn c7e5f9 2015-10-14 2015-10-14 Hurt nullFlavo Knippa 27f4f 07d-2 [facility] 14:30:00 14:30:00 shoulder r Specialties 0n0-2gl0- 9 l dab-21h783 Mi nn 786bb0 2015-10-14 2015-10-14 Hurt nullFlavo Knippa 5fe97 26d-5 [facility] 14:30:00 14:30:00 shoulder r Specialties ceb-449d- b l 16b-1e52fc Mi nn 1dc26e 2015-10-14 2015-10-14 Hurt nullFlavo Knippa a4679 83b-d [facility] 14:30:00 14:30:00 shoulder r Specialties 6n4-48ps- 9 l 4fa-af9bd5 Mi nn 661c6f 2015-10-14 2015-10-14 Hurt nullFlavo Knippa b7f71 1b2-6 [facility] 14:30:00 14:30:00 shoulder r Specialties 384-4b26- 8 l l27-13vc61 Mi nn 3n9869 2015-10-14 2015-10-14 Hurt nullFlavo Knippa 41014 a28-6 [facility] 14:30:00 14:30:00 shoulder r Specialties 8a8-3w60- b l c4c-30ygf2 Mi nn 323ce1 2015-10-14 2015-10-14 Hurt nullFlavo Knippa 0d08c f85-7 [facility] 14:30:00 14:30:00 shoulder r Specialties 880-4db6- a l 4bd-9315be Mi nn i5v355 2015-10-14 2015-10-14 Hurt nullFlavo Knippa 3eb54 20a-e [facility] 13:30:00 13:30:00 shoulder r Specialties o59-2832- 9 l 9j7-u8y661 Mi nn ca30a3 2015-10-14 2015-10-14 Hurt nullFlavo Knippa 3960b 330-c [facility] 13:30:00 13:30:00 shoulder r Specialties 1be-4509- 9 l da4-8dd68a Mi nn 192618 5255-08-22 2015-10-14 Hurt nullFlavo Knippa 5bdbe 5ea-7 [facility] 13:30:00 13:30:00 shoulder r Specialties 6fb-4861- 8 l 918-9h311f Mi nn 9cfdfc 2015-10-14 2015-10-14 Hurt nullFlavo Knippa 28145 d57-9 [facility] 13:30:00 13:30:00 shoulder r Specialties s8x-5454- b l 4k5-zom400 Mi nn 1e4d14 2015-10-14 2015-10-14 Hurt nullFlavo Knippa 7c73c e05-e [facility] 13:30:00 13:30:00 shoulder r Specialties 4f9-5u92- 8 l 803-658106 Mi nn 09f0bc 2015-10-14 2015-10-14 Hurt nullFlavo Knippa a003f 3fe-2 [facility] 13:30:00 13:30:00 shoulder r Specialties afb-4b32- 8 l e10-h7s47r Mi nn 383df2 2015-10-14 2015-10-14 Hurt nullFlavo Knippa ed79a ccd-c [facility] 13:30:00 13:30:00 shoulder r Specialties 1ef-44c0- 9 l m99-382c35 Mi nn 76578f 2015-09-17 2015-09-17 Outpatient IE IE [id number] 565 [facility] 11:50:00 11:50:00 02 l Niall 2015-09-10 2015-09-10 2-3 Week nullFlavo Knippa 209f 351e-2 [facility] 16:30:00 16:30:00 Follow Up r Specialties 5ab-4cd5 -a l eab-4feafd Mi nn 6m4353 2015-09-10 2015-09-10 2-3 Week nullFlavo Knippa 12e6 dba4-0 [facility] 16:30:00 16:30:00 Follow Up r Specialties dd4-4219 -8 l 492-uf632l Mi nn bd4c3b 2015-09-10 2015-09-10 2-3 Week nullFlavo Knippa 771e e4c2-e [facility] 16:30:00 16:30:00 Follow Up r Specialties 907-40f6 -a l z7o-089691 [facility] nn f1ff83 2015-09-10 2015-09-10 2-3 Week nullFlavo Knippa 34d5 2df7-2 [facility] 16:30:00 16:30:00 Follow Up r Specialties ff5-45d3 -9 l 7q7-329sx4 [facility] nn 3bece1 2015-09-10 2015-09-10 2-3 Week nullFlavo Knippa 8fb1 79fb-b [facility] 16:30:00 16:30:00 Follow Up r Specialties 807-4de5 -9 l e51-r82616 [facility] 826ddc 2015-09-10 2015-09-10 2-3 Week nullFlavo Knippa 6593 22aa-3 [facility] 16:30:00 16:30:00 Follow Up r Specialties 39a-4b37 -9 l 5fd-6c8648 [facility] 7feed5 2015-09-10 2015-09-10 2-3 Week nullFlavo Knippa 34ee 27a9-1 [facility] 16:30:00 16:30:00 Follow Up r Specialties ac3-4833 -9 l 749-1b32b2 [facility] nn 44k075 2015-09-10 2015-09-10 2-3 Week nullFlavo Knippa 9625 a843-e [facility] 16:30:00 16:30:00 Follow Up r Specialties 6e7-0u25 -b l 56e-47066x [facility] 76491j 2015-09-10 2015-09-10 2-3 Week nullFlavo Knippa 9408 7d64-0 [facility] 16:30:00 16:30:00 Follow Up r Specialties 282-4737 -a l fbd-2n8308 [facility] nn 7a2bea 2015-09-10 2015-09-10 2-3 Week nullFlavo Knippa b477 fbf3-e [facility] 16:30:00 16:30:00 Follow Up r Specialties bfb-48af -9 l 970-0d7eef [facility] nn 049db0 2015-09-10 2015-09-10 2-3 Week nullFlavo Knippa f866 402f-1 [facility] 16:30:00 16:30:00 Follow Up r Specialties 58a-4a8e -9 l 134-80y147 Mi nn 3228cb 2015-09-10 2015-09-10 2-3 Week nullFlavo Knippa 3d92 4888-0 [facility] 16:30:00 16:30:00 Follow Up r Specialties 3m6-2975 -b l x93-34h018 [facility] nn i8n948 2015-09-10 2015-09-10 2-3 Week nullFlavo Knippa 42e4 a926-2 [facility] 16:30:00 16:30:00 Follow Up r Specialties 0o6-1mf3 -a l w33- [facility] nn 46258l 2015-09-10 2015-09-10 2-3 Week nullFlavo Knippa 8878 48aa-0 [facility] 15:30:00 15:30:00 Follow Up r Specialties 5a8-11tq -8 l db1-2c2a70 [facility] nn 2342cb 2015-09-10 2015-09-10 2-3 Week nullFlavo Knippa 240f 7c26-e [facility] 15:30:00 15:30:00 Follow Up r Specialties 73e-46df -a l 32c-6m0257 [facility] nn 9l2000 2015-09-10 2015-09-10 2-3 Week nullFlavo Knippa bbba 5dc4-a [facility] 15:30:00 15:30:00 Follow Up r Specialties 5m5-847p -8 l 473-84f5d2 [facility] nn 50939y 2015-09-10 2015-09-10 2-3 Week nullFlavo Knippa 5019 b360-5 [facility] 15:30:00 15:30:00 Follow Up r Specialties 006-49a1 -b l 7p1-0khf47 [facility] nn 50v429 2015-09-10 2015-09-10 2-3 Week nullFlavo Knippa b69c f634-1 [facility] 15:30:00 15:30:00 Follow Up r Specialties r10-1fz2 -8 l 626-8724b5 [facility] nn b28a1f 2015-09-10 2015-09-10 2-3 Week nullFlavo Knippa 251f afce-7 [facility] 15:30:00 15:30:00 Follow Up r Specialties 4bd-4362 -a l 662-uqa758 Mi nn qa8449 2015-09-10 2015-09-10 2-3 Week nullFlavo Knippa cac0 d1b3-2 [facility] 15:30:00 15:30:00 Follow Up r Specialties r65-1431 -a l p0w-734k5c [facility] nn b94bd4 2015-09-10 2015-09-10 2-3 Week nullFlavo Knippa 4f55 bd9f-1 [facility] 15:30:00 15:30:00 Follow Up r Specialties 1m3-04yo -a l 981-03958n [facility] nn z6870f 2015-09-10 2015-09-10 2-3 Week nullFlavo Knippa 18cd 5ccf-c [facility] 15:30:00 15:30:00 Follow Up r Specialties 408-4116 -a l 48f-104d3c [facility] nn 9aeb95 2015-08-27 2015-08-27 Cancel nullFlavo Knippa fed20 92f-6 [facility] 23:04:00 23:04:00 appt. r Specialties 654-48e7-a l 723-3p6381 [facility] nn 1n0949 2015-08-27 2015-08-27 Cancel nullFlavo Knippa 50083 3d2-f [facility] 23:04:00 23:04:00 appt. r Specialties 4af-4d6f-b l dfc-defb1f [facility] nn 47o384 2015-08-27 2015-08-27 Cancel nullFlavo Knippa e670e 7ef-7 [facility] 23:04:00 23:04:00 appt. r Specialties a1l-5h3l-2 l v2l-9p0d89 [facility] nn on9573 2015-08-27 2015-08-27 Cancel nullFlavo Knippa 622d3 176-c [facility] 23:04:00 23:04:00 appt. r Specialties v6t-717w-w l cf2-4edafb [facility] nn 395053 2482-07-05 2015-08-27 Cancel nullFlavo Knippa b3a0a 2a6-0 [facility] 23:04:00 23:04:00 appt. r Specialties 6y9-2389-i l 265-1fc8c3 Mi nn 311d7a 2015-08-27 2015-08-27 Cancel nullFlavo Knippa 6e594 af7-d [facility] 23:04:00 23:04:00 appt. r Specialties 683-4e6e-9 l 20c-21fa64 Mi nn f640c9 2015-08-27 2015-08-27 Cancel nullFlavo Knippa d3495 ff3-5 [facility] 23:04:00 23:04:00 appt. r Specialties 38e-405f-b l 9e8-903fen Mi nn e690eb 2015-08-27 2015-08-27 Cancel nullFlavo Knippa de34f 297-5 [facility] 23:04:00 23:04:00 appt. r Specialties 371-4bd0-b l n06-nd4tq3 Mi nn 43d2fe 2015-08-27 2015-08-27 Cancel nullFlavo Knippa dd3ef 1d1-6 [facility] 23:04:00 23:04:00 appt. r Specialties 7g2-2422-9 l t9i-algq1l Mi nn 0800ec 2015-08-27 2015-08-27 Cancel nullFlavo Knippa a4a41 b4e-4 [facility] 23:04:00 23:04:00 appt. r Specialties 82e-4626-a l 550-0f96ef [facility] nn 19811g 2015-08-27 2015-08-27 Cancel nullFlavo Knippa b09d4 69d-c [facility] 23:04:00 23:04:00 appt. r Specialties 797-467d-8 l t4o-h7o465 Mi nn 8f1965 2015-08-27 2015-08-27 Cancel nullFlavo Knippa 3ec3b dd7-4 [facility] 23:04:00 23:04:00 appt. r Specialties y4d-34gx-v l o51-820q99 Mi nn df5fa3 2015-08-27 2015-08-27 Cancel nullFlavo Knippa 90c36 6e9-8 [facility] 23:04:00 23:04:00 appt. r Specialties r83-671n-7 l 92b-1ac6b2 [facility] nn c5cc4d 2015-08-27 2015-08-27 Cancel nullFlavo Knippa cb39e 359-8 [facility] 22:04:00 22:04:00 appt. r Specialties 90f-4841-a l donnie-db9fba [facility] nn 113175 1898-07-05 2015-08-27 Cancel nullFlavo Knippa a20b5 aed-e [facility] 22:04:00 22:04:00 appt. r Specialties 508-4f6d-8 l 663-df5b91 [facility] nn 80e97d 2015-08-27 2015-08-27 Cancel nullFlavo Knippa e0dd0 dd7-8 [facility] 22:04:00 22:04:00 appt. r Specialties fb1-46e7-9 l 6e2-hepn14 [facility] nn dca09d 2015-08-27 2015-08-27 Cancel nullFlavo Knippa 130d9 f15-9 [facility] 22:04:00 22:04:00 appt. r Specialties 81c-4d5e-9 l 31c-962d97 [facility] nn 721811 8074-07-05 2015-08-27 Cancel nullFlavo Knippa 53063 7d6-b [facility] 22:04:00 22:04:00 appt. r Specialties 322-41b8-9 l 0ef-930e22 [facility] nn 429916 5952-07-05 2015-08-27 Cancel nullFlavo Knippa 31092 b99-8 [facility] 22:04:00 22:04:00 appt. r Specialties 990-4390-a l 68a-eg6148 [facility] nn 2ceddb 2015-08-27 2015-08-27 Cancel nullFlavo Knippa 7ad59 851-2 [facility] 22:04:00 22:04:00 appt. r Specialties 06c-4c7e-8 l 005-a3e1b8 [facility] nn ef1d37 2015-08-27 2015-08-27 Cancel nullFlavo Knippa a839b 6da-c [facility] 22:04:00 22:04:00 appt. r Specialties dab-4f51-9 l 0z1-94291p Mi nn edw694 2015-08-27 2015-08-27 Cancel nullFlavo Knippa 9dca9 2e4-8 [facility] 22:04:00 22:04:00 appt. r Specialties l21-354p-t l 887-220324 Mi nn 20e44f 2015-08-27 2015-08-27 Cancel nullFlavo Knippa 9b5b3 054-d [facility] 22:04:00 22:04:00 appt. r Specialties 7o5-1654-1 l 345-1c1fc6 Mi nn 29a27f 2015-08-14 2015-08-14 Test nullFlavo Knippa 3ea7d 95d-d [facility] 14:10:00 14:10:00 results- r Specialties 3g7-2e61- 9 l done 89e-2aa81a Mi nn m4r005 2015-08-14 2015-08-14 Test nullFlavo Knippa 2ed9b 3f0-3 [facility] 14:10:00 14:10:00 results- r Specialties fa1-4b7d- 9 l done 0dc-d4f46b Mi nn 3ffe40 2015-08-14 2015-08-14 Test nullFlavo Knippa 89bb3 a8f-0 [facility] 14:10:00 14:10:00 results- r Specialties 49d-43eb- 8 l done h10-r8mp86 Mi nn f1ae8f 2015-08-14 2015-08-14 Test nullFlavo Knippa 9e412 39d-a [facility] 14:10:00 14:10:00 results- r Specialties fbc-45bb- 9 l done beb-6i5853 Mi nn bbdc21 2015-08-14 2015-08-14 Test nullFlavo Knippa 5a17a 6a5-a [facility] 14:10:00 14:10:00 results- r Specialties 9ea-4816- 8 l done 39d-08396z Mi nn p3290e 2015-08-14 2015-08-14 Test nullFlavo Knippa 45061 0af-7 [facility] 14:10:00 14:10:00 results- r Specialties 2ac-40a6- b l done 5g6-9v3l72 Mi nn 14d5d8 2015-08-14 2015-08-14 Test nullFlavo Knippa be4f9 83d-8 [facility] 14:10:00 14:10:00 results- r Specialties 14f-48de- 8 l done 832-272541 Mi nn 99bab9 2015-08-14 2015-08-14 Test nullFlavo Knippa bba24 9e3-2 [facility] 14:10:00 14:10:00 results- r Specialties o5r-41c3- 9 l done bc3-fd3a0a [facility] nn 4cee42 2015-08-14 2015-08-14 Test nullFlavo Knippa 86fb6 e1d-4 [facility] 14:10:00 14:10:00 results- r Specialties 329-415d- 9 l done cf5-2t9842 [facility] nn 6178cc 2015-08-14 2015-08-14 Test nullFlavo Knippa 83246 f93-b [facility] 14:10:00 14:10:00 results- r Specialties 441-4a4f- 9 l done 483-d6f8d2 [facility] nn 67075a 2015-08-14 2015-08-14 Test nullFlavo Knippa 4df25 491-5 [facility] 14:10:00 14:10:00 results- r Specialties w7e-869o- 8 l done 508-5f9ca3 [facility] nn 7ea1cf 2015-08-14 2015-08-14 Test nullFlavo Knippa a7d66 8ed-e [facility] 14:10:00 14:10:00 results- r Specialties 3f2-0864- 8 l done w9p-189752 [facility] nn 8sy172 2015-08-14 2015-08-14 Test nullFlavo Knippa 37401 ba8-1 [facility] 14:10:00 14:10:00 results- r Specialties 542-4f6f- a l done 197-207c43 [facility] nn a9df46 2015-08-14 2015-08-14 Test nullFlavo Knippa c520f a47-d [facility] 13:10:00 13:10:00 results- r Specialties 168-4b73- a l done a9m-k1223t [facility] a90d0e 2015-08-14 2015-08-14 Test nullFlavo Knippa 014d7 50a-1 [facility] 13:10:00 13:10:00 results- r Specialties 97d-4a47- a l done 26a-p58326 [facility] 93c798 2015-08-14 2015-08-14 Test nullFlavo Knippa bf151 1bb-3 [facility] 13:10:00 13:10:00 results- r Specialties v27-0714- a l done 44a-d1fb96 [facility] nh590l 2015-08-14 2015-08-14 Test nullFlavo Knippa 3405d cc7-a [facility] 13:10:00 13:10:00 results- r Specialties 594-4c45- b l done 88f-435468 [facility] 34a4c7 2015-08-14 2015-08-14 Test nullFlavo Knippa e9f1d 3f4-7 [facility] 13:10:00 13:10:00 results- r Specialties 8ba-4507- 8 l done 568-5ab29f [facility] 0e0d42 2015-08-14 2015-08-14 Test nullFlavo Knippa ed846 75b-8 [facility] 13:10:00 13:10:00 results- r Specialties 8s1-7889- a l done 57c-a3b2a7 [facility] d6ab74 2015-08-14 2015-08-14 Test nullFlavo Knippa be1b6 f98-f [facility] 13:10:00 13:10:00 results- r Specialties 15b-4807- 9 l done e15-f32042 [facility] 54w806 2015-08-14 2015-08-14 Test nullFlavo Knippa 193c7 350-4 [facility] 13:10:00 13:10:00 results- r Specialties 76b-4e76- 8 l done 701-960a9d [facility] e6bf3c 2015-08-14 2015-08-14 Test nullFlavo Knippa 7f7cf be2-b [facility] 13:10:00 13:10:00 results- r Specialties dd4-4548- 8 l done 7fa-2c7d56 [facility] 6j6575 2015-08-14 2015-08-14 Test nullFlavo Knippa 09c0f 21e-f [facility] 13:10:00 13:10:00 results- r Specialties q02-2951- 9 l done 55f-baab87 [facility] nn cd4b20 2015-08-14 2015-08-14 Test nullFlavo Knippa 27d1b 20f-d [facility] 13:10:00 13:10:00 results- r Specialties 55f-4f5b- b l done ebc-8o3915 [facility] nn 8a77f3 2015-08-01 2015-08-01 Left side nullFlavo Knippa 432 68772-b [facility] 16:45:00 16:45:00 pain x 2 r Specialties 77a-4fdd- 8 l wks x55-o1m07n [facility] nn 3d187c 2015-08-01 2015-08-01 Left side nullFlavo Knippa 73e 47350-3 [facility] 16:45:00 16:45:00 pain x 2 r Specialties 87a-4e43- b l wks ec2-2fba78 [facility] nn a03e87 2015-08-01 2015-08-01 Left side nullFlavo Knippa 853 7p254-9 [facility] 16:45:00 16:45:00 pain x 2 r Specialties l2n-5461- 8 l wks aaa-j0z144 [facility] nn 268986 7584-06-09 2015-08-01 Left side nullFlavo Knippa 836 8167f-d [facility] 16:45:00 16:45:00 pain x 2 r Specialties 392-4202- b l wks r8h-h59092 [facility] nn a8c1bb 2015-08-01 2015-08-01 Left side nullFlavo Knippa 301 o81w2-1 [facility] 16:45:00 16:45:00 pain x 2 r Specialties 6z7-061j- 8 l wks p93-58u523 [facility] nn 6a7724 2015-08-01 2015-08-01 Left side nullFlavo Knippa 6fd 7c13g-v [facility] 16:45:00 16:45:00 pain x 2 r Specialties 03e-49b5- 9 l wks 119-60e820 [facility] nn f634ed 2015-08-01 2015-08-01 Left side nullFlavo Knippa a70 3513f-c [facility] 16:45:00 16:45:00 pain x 2 r Specialties 093-4e63- 8 l wks ea1-a0ce53 Mi nn 1c4815 2015-08-01 2015-08-01 Left side nullFlavo Knippa 625 8zu0q-3 [facility] 16:45:00 16:45:00 pain x 2 r Specialties p2k-937j- b l wks 5cb-f8bc02 [facility] nn 8eef3c 2015-08-01 2015-08-01 Left side nullFlavo Knippa 0eb 499d6-y [facility] 16:45:00 16:45:00 pain x 2 r Specialties 578-4fba- 8 l wks 125-wl1615 Mi aleja 4afa0a 2015-08-01 2015-08-01 Left side nullFlavo Knippa 9d8 9w245-3 [facility] 16:45:00 16:45:00 pain x 2 r Specialties 519-4dd3- 9 l wks dca-3313a8 [facility] nn vx789v 2015-08-01 2015-08-01 Left side nullFlavo Knippa 302 z3864-3 [facility] 16:45:00 16:45:00 pain x 2 r Specialties 653-4c59- b l wks 23d-7072d5 [facility] aleja rs2747 2015-08-01 2015-08-01 Left side nullFlavo Knippa 127 9125d-6 [facility] 16:45:00 16:45:00 pain x 2 r Specialties 323-474f- 9 l wks s31-43277r [facility] aleja e570e1 2015-08-01 2015-08-01 Left side nullFlavo Knippa ee8 1p7i9-c [facility] 16:45:00 16:45:00 pain x 2 r Specialties 697-4938- a l wks 568-2cc89d [facility] aleja 641820 1880-06-09 2015-08-01 Left side nullFlavo Knippa 748 y1y72-1 [facility] 15:45:00 15:45:00 pain x 2 r Specialties bb9-45df- 8 l wks b07-5z0nt6 [facility] aleja 9304fa 2015-08-01 2015-08-01 Left side nullFlavo Knippa a0a 81797-t [facility] 15:45:00 15:45:00 pain x 2 r Specialties 4s2-6614- a l wks 38b-78450l Mi nn 2c6af0 2015-08-01 2015-08-01 Left side nullFlavo Knippa 5b0 4b819-x [facility] 15:45:00 15:45:00 pain x 2 r Specialties bcc-4604- 8 l wks 5dc-7be72c Mi nn e90a16 2015-08-01 2015-08-01 Left side nullFlavo Knippa 010 m6mes-4 [facility] 15:45:00 15:45:00 pain x 2 r Specialties 89e-44f7- a l wks 3j5-0q0pvg Mi nn 7f83ff 2015-08-01 2015-08-01 Left side nullFlavo Knippa e46 8rb39-1 [facility] 15:45:00 15:45:00 pain x 2 r Specialties 90e-46be- a l wks 382-0349f6 [facility] nn a0d3a5 2015-08-01 2015-08-01 Left side nullFlavo Knippa 998 f6059-9 [facility] 15:45:00 15:45:00 pain x 2 r Specialties u67-2i1l- 8 l wks 2g5-5dr03s Mi nn 4a5614 2015-08-01 2015-08-01 Left side nullFlavo Knippa 757 82b52-0 [facility] 15:45:00 15:45:00 pain x 2 r Specialties 79e-4535- 8 l wks 996-c24f0d Mi nn 6bbf21 2015-08-01 2015-08-01 Left side nullFlavo Knippa d27 8dbcf-a [facility] 15:45:00 15:45:00 pain x 2 r Specialties fa1-472f- 8 l wks 682-8a9b5e Mi nn d7cccd 2015-08-01 2015-08-01 Left side nullFlavo Knippa 8b5 93z24-x [facility] 15:45:00 15:45:00 pain x 2 r Specialties a1e-9k9q- b l wks 258-565265 [facility] nn 382a4a 2015-08-01 2015-08-01 Left side nullFlavo Knippa 491 52cde-c [facility] 15:45:00 15:45:00 pain x 2 r Specialties 234-4043- b l wks 9m8-9ty0d4 [facility] nn 9706ab 2015-08-01 2015-08-01 Left side nullFlavo Knippa yousif j624d-6 [facility] 15:45:00 15:45:00 pain x 2 r Specialties 2z8-6x2y- 9 l wks m6k-3vf7t4 [facility] nn 8b4078 2015-08-01 2015-08-01 Left side nullFlavo Knippa 606 e2856-9 [facility] 15:45:00 15:45:00 pain x 2 r Specialties f4h-5k36- 8 l wks 0cc-n5w523 [facility] nn 582b9e 2015-07-23 2015-07-23 side nullFlavo Knippa 7d6b1 6a4-b [facility] 17:21:00 17:21:00 hurting r Specialties g8s-1915-q l 9d3-9yikj6 [facility] nn c818a2 2015-07-23 2015-07-23 side nullFlavo Knippa d2383 2e2-9 [facility] 17:21:00 17:21:00 hurting r Specialties 836-4e72-b l b8v-55b741 [facility] nn w9w455 2015-07-23 2015-07-23 side nullFlavo Knippa a82e6 cf8-c [facility] 17:21:00 17:21:00 hurting r Specialties 06d-48e7-8 l u38-19163z [facility] nn a04b66 2015-07-23 2015-07-23 side nullFlavo Knippa aeb41 151-f [facility] 17:21:00 17:21:00 hurting r Specialties ad8-48cc-8 l 2ea-9z5242 [facility] nn be1a3d 2015-07-23 2015-07-23 side nullFlavo Knippa 50706 a70-d [facility] 17:21:00 17:21:00 hurting r Specialties 17a-4235-a l 015-78bf55 [facility] fedfaf 2015-07-23 2015-07-23 side nullFlavo Knippa 8e14b 519-3 [facility] 17:21:00 17:21:00 hurting r Specialties q37-365i-5 l 852-0m578j Mi nn [id number] 6218-05-31 2015-07-23 side nullFlavo Knippa d34c9 af0-8 [facility] 17:21:00 17:21:00 hurting r Specialties 7t2-5m10-t l x8j-6f33a6 Mi nn cde0d1 2015-07-23 2015-07-23 side nullFlavo Knippa faae5 3d2-8 [facility] 17:21:00 17:21:00 hurting r Specialties 293-4f60-9 l ef0-7b2215 Mi nn 02cf05 2015-07-23 2015-07-23 side nullFlavo Knippa d4ca5 ffa-2 [facility] 17:21:00 17:21:00 hurting r Specialties t5h-3w84-q l 2l2-9v715l Mi nn cedfb5 2015-07-23 2015-07-23 side nullFlavo Knippa c6565 2ee-3 [facility] 17:21:00 17:21:00 hurting r Specialties 1a8-8b81-0 l s0c-t03v83 Mi nn 096703 6730-05-31 2015-07-23 side nullFlavo Knippa 06ad4 8d9-e [facility] 17:21:00 17:21:00 hurting r Specialties l4k-3n96-u l 630-4f3ef7 Mi nn 4fe6ba 2015-07-23 2015-07-23 side nullFlavo Knippa 8c289 a75-c [facility] 17:21:00 17:21:00 hurting r Specialties 005-46ab-a l 3bf-1k3841 Mi nn 4982c4 2015-07-23 2015-07-23 side nullFlavo Knippa d5bdb c6a-c [facility] 17:21:00 17:21:00 hurting r Specialties 9h6-16u3-0 l 1b7-q13308 Mi nn 93b8f5 2015-07-23 2015-07-23 side nullFlavo Knippa 2208a 3ee-f [facility] 16:21:00 16:21:00 hurting r Specialties 9j4-61i7-n l 8v1-3o2xux Mi nn 7c8fc0 2015-07-23 2015-07-23 side nullFlavo Knippa b8a6d b31-9 [facility] 16:21:00 16:21:00 hurting r Specialties ed2-4fa3-b l n0m-0zr358 Mi nn e67e61 2015-07-23 2015-07-23 side nullFlavo Knippa f04e9 e4e-7 [facility] 16:21:00 16:21:00 hurting r Specialties 6b6-12tj-i l 7j2-3ld944 Mi nn f8cebb 2015-07-23 2015-07-23 side nullFlavo Knippa bdb6f 9a7-3 [facility] 16:21:00 16:21:00 hurting r Specialties y33-08y6-m l 815-8045f9 Mi nn 7a2bdd 2015-07-23 2015-07-23 side nullFlavo Knippa 00156 d2a-4 [facility] 16:21:00 16:21:00 hurting r Specialties j6p-11af-9 l daf-a0418f Mi nn e24dcf 2015-07-23 2015-07-23 side nullFlavo Knippa 6507e 421-1 [facility] 16:21:00 16:21:00 hurting r Specialties 8ad-413b-a l 1x1-47077a Mi nn 7ed9ea 2015-07-23 2015-07-23 side nullFlavo Knippa 31a04 59b-9 [facility] 16:21:00 16:21:00 hurting r Specialties c36-8w11-4 l 11c-0d2ab3 Mi nn 3bebc4 2015-07-23 2015-07-23 side nullFlavo Knippa 174ad 0e0-e [facility] 16:21:00 16:21:00 hurting r Specialties 377-4a0f-9 l 265-dfdb46 Mi nn 9u075f 2015-07-23 2015-07-23 side nullFlavo Knippa 472ba 7fd-b [facility] 16:21:00 16:21:00 hurting r Specialties 42d-463d-a l 17e-663d98 Mi nn 108a44 2015-07-23 2015-07-23 side nullFlavo Knippa d8e2a 5c2-4 [facility] 16:21:00 16:21:00 hurting r Specialties fa7-44f5-b l 14d-02089e Mi nn 4e5c9d 2015-07-23 2015-07-23 side nullFlavo Knippa 5b0f8 312-8 [facility] 16:21:00 16:21:00 hurting r Specialties b06-3055-7 l df2-b8dfd4 Mi nn f9e4a0 2015-07-23 2015-07-23 side nullFlavo Knippa 459a0 d2b-2 [facility] 16:21:00 16:21:00 hurting r Specialties 93b-4f25-9 l d9s-81u264 Mi nn d2f8f1 2015-07-23 2015-07-23 side nullFlavo Knippa 5c0f2 784-5 [facility] 16:21:00 16:21:00 hurting r Specialties 67e-438b-a l 335-152c1c Mi nn f3bef0 2015-07-03 2015-07-03 Rx nullFlavo Knippa 07fc1 a74-7 [facility] 17:00:00 17:00:00 r Specialties 688-490f-9 l 988-e093bc Mi nn 6bcddb 2015-07-03 2015-07-03 Rx nullFlavo Knippa 81683 27e-b [facility] 17:00:00 17:00:00 r Specialties 695-4de0-9 l 8r7-r65jou Mi nn [id number] 2015-07-03 2015-07-03 Rx nullFlavo Knippa 6e37e 408-b [facility] 17:00:00 17:00:00 r Specialties 771-4268-8 l 0w1-l06u08 Mi nn 07r206 2015-07-03 2015-07-03 Rx nullFlavo Knippa 759f8 5bd-e [facility] 17:00:00 17:00:00 r Specialties w78-7pd6-i l 790-9b7f9f Mi nn 086e5c 2015-07-03 2015-07-03 Rx nullFlavo Knippa 8f627 1c8-d [facility] 17:00:00 17:00:00 r Specialties h06-218m-7 l 80a-577774 Mi nn 658860 2300-05-11 2015-07-03 Rx nullFlavo Knippa 9e77d 5e7-3 [facility] 17:00:00 17:00:00 r Specialties dd3-41b0-8 l 335-6a3c5e Mi nn b2b07d 2015-07-03 2015-07-03 Rx nullFlavo Knippa 78d99 2e1-1 [facility] 17:00:00 17:00:00 r Specialties 02b-479c-8 l w85-2x01j2 Mi nn ea3bfc 2015-07-03 2015-07-03 Rx nullFlavo Knippa 7a38e c7e-4 [facility] 17:00:00 17:00:00 r Specialties 866-43be-b l 27a-7d77a9 Mi nn 901c70 2015-07-03 2015-07-03 Rx nullFlavo [facility] 9d731 baa-4 [facility] 17:00:00 17:00:00 r Specialties 98a-4566-b l cbf-df61a6 Mi nn 03e08f 2015-07-03 2015-07-03 Rx nullFlavo [facility] 09e46 0fc-4 [facility] 17:00:00 17:00:00 r Specialties z74-2u14-7 l 595-3d4cc4 Mi nn 31221t 2015-07-03 2015-07-03 Rx nullFlavo [facility] 58be9 bdf-8 [facility] 17:00:00 17:00:00 r Specialties e24-4rc9-a l 71e-m3f992 Mi nn 1b79d5 2015-07-03 2015-07-03 Rx nullFlavo [facility] c4e68 e46-9 [facility] 17:00:00 17:00:00 r Specialties f3n-25me-8 l 9d6-i10x23 Mi nn c476e0 2015-07-03 2015-07-03 Rx nullFlavo [facility] 97307 6de-9 [facility] 17:00:00 17:00:00 r Specialties 244-42f5-9 l 7c3-ck8132 Mi nn 27051t 2015-07-03 2015-07-03 Rx nullFlavo [facility] c62e9 da0-8 [facility] 16:00:00 16:00:00 r Specialties 779-4149-b l 499-4dadc4 Mi nn afcb80 2015-07-03 2015-07-03 Rx nullFlavo [facility] f30d6 abc-6 [facility] 16:00:00 16:00:00 r Specialties 9k6-15p2-4 l l83-ip98h9 Mi nn n96305 2015-07-03 2015-07-03 Rx nullFlavo [facility] 7bc9e f98-f [facility] 16:00:00 16:00:00 r Specialties 7f4-535m-i l fc2-365702 Mi nn 6961fd 2015-07-03 2015-07-03 Rx nullFlavo [facility] 2b3bf 2a2-d [facility] 16:00:00 16:00:00 r Specialties 65d-4cf2-a l 3t2-90v3p0 Mi nn e95c24 2015-07-03 2015-07-03 Rx nullFlavo [facility] e5dc3 597-a [facility] 16:00:00 16:00:00 r Specialties 53d-4c6a-8 l 9aa-s6897v Mi nn 023b4a 2015-07-03 2015-07-03 Rx nullFlavo [facility] 4ec84 cd7-6 [facility] 16:00:00 16:00:00 r Specialties 076-4559-9 l 010-mr123i Mi nn e849e0 2015-07-03 2015-07-03 Rx nullFlavo [facility] 1cc0d 60f-c [facility] 16:00:00 16:00:00 r Specialties y0n-02t6-0 l 97e-6a8ec4 Mi nn 22u066 2015-07-03 2015-07-03 Rx nullFlavo [facility] eae51 477-5 [facility] 16:00:00 16:00:00 r Specialties x2t-178z-4 l 155-d6171x Mi nn 1702ab 2015-07-03 2015-07-03 Rx nullFlavo [facility] a8dbf 7a9-7 [facility] 16:00:00 16:00:00 r Specialties s42-01o3-q l 894-b00ee9 Mi nn c9b56c 2015-07-03 2015-07-03 Rx nullFlavo [facility] ff716 eec-8 [facility] 16:00:00 16:00:00 r Specialties t8c-2r2a-7 l 1k3-69624u Mi nn 13c61a 2015-07-03 2015-07-03 Rx nullFlavo [facility] 6e656 621-d [facility] 16:00:00 16:00:00 r Specialties 68c-4f4a-8 l 89d-7f1c37 Mi nn f4da18 2015-07-03 2015-07-03 Rx nullFlavo [facility] a0bdd 070-5 [facility] 16:00:00 16:00:00 r Specialties abb-4076-9 l ef6-438e9e Mi nn 96cbd2 2015-07-03 2015-07-03 Rx nullFlavo [facility] f4665 fc0-f [facility] 16:00:00 16:00:00 r Specialties afa-4bee-8 l 78e-j33209 [facility] nn 7da1a0 2015-07-03 2015-07-03 Rx nullFlavo [facility] 2eb55 fde-8 [facility] 16:00:00 16:00:00 r Specialties 62a-4c93-a l t84-320i06 Mi nn 24u445 2015-06-10 2015-06-10 Appt nullFlavo [facility] a187a e6d-1 [facility] 17:50:00 17:50:00 Request r Specialties ec6-45f3-9 l baf-b4be4a Mi nn 646be9 2015-06-10 2015-06-10 Appt nullFlavo [facility] 2678d 4ca-1 [facility] 17:50:00 17:50:00 Request r Specialties i74-88ie-r l 0be-de2f05 Mi nn 38ca5f 2015-06-10 2015-06-10 Appt nullFlavo [facility] eff23 57a-f [facility] 17:50:00 17:50:00 Request r Specialties 7ba-4710-9 l 30e-199ba8 Mi nn b7b1c8 2015-06-10 2015-06-10 Appt nullFlavo [facility] b3ec7 dc8-0 [facility] 17:50:00 17:50:00 Request r Specialties 713-472d-b l 197-89090o Mi nn da5cc5 2015-06-10 2015-06-10 Appt nullFlavo [facility] 1735b 10d-5 [facility] 17:50:00 17:50:00 Request r Specialties ddf-4055-8 l 375-8d383a Mi nn t9398c 2015-06-10 2015-06-10 Appt nullFlavo [facility] 75a50 49d-1 [facility] 17:50:00 17:50:00 Request r Specialties dff-441c-a l 7ab-4d2a44 Mi nn 9583a2 2015-06-10 2015-06-10 Appt nullFlavo [facility] dd830 4d3-4 [facility] 17:50:00 17:50:00 Request r Specialties m0r-8575-6 l x86-5x765u Mi nn e0b5a9 2015-06-10 2015-06-10 Appt nullFlavo [facility] 2f164 ed3-8 [facility] 17:50:00 17:50:00 Request r Specialties 62b-49e8-b l 76e-883a55 Mi nn 4c59c5 2015-06-10 2015-06-10 Appt nullFlavo [facility] d5941 6b2-6 [facility] 17:50:00 17:50:00 Request r Specialties ec9-46a5-b l i8g-2w3k62 Mi nn 02bf56 2015-06-10 2015-06-10 Appt nullFlavo [facility] f3223 a7f-c [facility] 17:50:00 17:50:00 Request r Specialties 6y9-94u0-c l de0-cfd75d Mi nn 687228 3887-04-18 2015-06-10 Appt nullFlavo [facility] 45fb4 507-5 [facility] 17:50:00 17:50:00 Request r Specialties 76d-43e3-9 l 0f8-v23dy3 Mi nn 56e9c6 2015-06-10 2015-06-10 Appt nullFlavo [facility] b5539 25b-d [facility] 17:50:00 17:50:00 Request r Specialties 5ea-43d3-8 l 0da-7u2627 Mi nn 2617cd 2015-06-10 2015-06-10 Appt nullFlavo [facility] 73bcf a2f-1 [facility] 17:50:00 17:50:00 Request r Specialties 6ad-436e-8 l 414-437959 Mi nn d9aebf 2015-06-10 2015-06-10 Appt nullFlavo [facility] b395a 9bc-5 [facility] 16:50:00 16:50:00 Request r Specialties v27-266l-9 l 3s3-436x13 Mi nn 226a1a 2015-06-10 2015-06-10 Appt nullFlavo [facility] de49f f88-f [facility] 16:50:00 16:50:00 Request r Specialties 92f-43f2-9 l 7e3-6gb06y Mi nn 456cf0 2015-06-10 2015-06-10 Appt nullFlavo [facility] 98eab 27e-f [facility] 16:50:00 16:50:00 Request r Specialties s9b-2537-c l efb-207ec0 Mi nn ace2cd 2015-06-10 2015-06-10 Appt nullFlavo [facility] 22ae6 936-e [facility] 16:50:00 16:50:00 Request r Specialties o42-0m5q-8 l 91e-2d95b9 Mi nn 9aeb87 2015-06-10 2015-06-10 Appt nullFlavo [facility] 61be8 123-8 [facility] 16:50:00 16:50:00 Request r Specialties 7ff-4d3c-b l 1v8-6c3nkg Mi nn 944709 1572-04-18 2015-06-10 Appt nullFlavo [facility] b7ffd f57-c [facility] 16:50:00 16:50:00 Request r Specialties 6t6-5987-f l eaf-418b5a Mi nn 4df3f0 2015-06-10 2015-06-10 Appt nullFlavo [facility] 23474 ded-a [facility] 16:50:00 16:50:00 Request r Specialties 16e-4ba4-9 l 35c-9fdede Mi nn 135bba 2015-06-10 2015-06-10 Appt nullFlavo [facility] 5cf11 ccc-2 [facility] 16:50:00 16:50:00 Request r Specialties 7h8-51k8-4 l ca3-zbp023 Mi nn 6e3139 2015-06-10 2015-06-10 Appt nullFlavo [facility] f421e fa4-1 [facility] 16:50:00 16:50:00 Request r Specialties h49-4q40-1 l 997-5u5244 [facility] nn 0y220v 2015-06-10 2015-06-10 Appt nullFlavo [facility] bff2a aeb-d [facility] 16:50:00 16:50:00 Request r Specialties 23d-471a-b l 07e-808492 [facility] nn 367c12 2015-06-10 2015-06-10 Appt nullFlavo [facility] 7336d d3d-5 [facility] 16:50:00 16:50:00 Request r Specialties 54d-4a58-9 l 71e-9a7f68 [facility] nn 116d2d 2015-06-10 2015-06-10 Appt nullFlavo [facility] 40da1 ea6-0 [facility] 16:50:00 16:50:00 Request r Specialties 5p3-10t1-j l 24a-9be5f2 [facility] nn 71ba6a 2015-06-10 2015-06-10 Appt nullFlavo [facility] 2aeb5 7dd-2 [facility] 16:50:00 16:50:00 Request r Specialties i2j-072t-2 l i33-u06913 [facility] nn q83660 2015-06-10 2015-06-10 Appt nullFlavo [facility] 1064c 2ff-2 [facility] 16:50:00 16:50:00 Request r Specialties cb5-4788-a l s44-gjo668 [facility] nn p9s705 2015-06-10 2015-06-10 Appt nullFlavo [facility] 9eba3 4c1-f [facility] 16:50:00 16:50:00 Request r Specialties ed0-4a0f-9 l 441-9451e6 [facility] nn ib490a 2015-06-05 2015-06-05 Appt with nullFlavo [facility] e74 68f6e-i [facility] 21:52:00 21:52:00 CV r Specialties 262-4ab7-8 l ec8-d20a14 Mi nn dbcca3 2015-06-05 2015-06-05 Appt with nullFlavo [facility] a4b ys92e-v [facility] 21:52:00 21:52:00 CV r Specialties bfa-485e-8 l 88a-d2f11b Mi nn eaa21e 2015-06-05 2015-06-05 Appt with nullFlavo [facility] 6cf i884i-2 [facility] 21:52:00 21:52:00 CV r Specialties 8i1-8418-y l 797-1315db Mi nn 362207 9890-04-13 2015-06-05 Appt with nullFlavo [facility] bce qf71z-4 [facility] 21:52:00 21:52:00 CV r Specialties 9da-40e5-8 l fd2-214fe7 Mi nn d6aac0 2015-06-05 2015-06-05 Appt with nullFlavo [facility] b9d 3s3ps-m [facility] 21:52:00 21:52:00 CV r Specialties 6aa-4668-8 l be0-40015y Mi nn 7f0e81 2015-06-05 2015-06-05 Appt with nullFlavo [facility] 692 8441c-d [facility] 21:52:00 21:52:00 CV r Specialties 2fe-448c-9 l 61d-41fd73 Mi nn 270b59 2015-06-05 2015-06-05 Appt with nullFlavo [facility] 455 z5k1f-a [facility] 21:52:00 21:52:00 CV r Specialties 133-4cc4-8 l 2e9-83901j Mi nn 772ee2 2015-06-05 2015-06-05 Appt with nullFlavo [facility] 403 27336-3 [facility] 21:52:00 21:52:00 CV r Specialties f2r-70h3-j l 267-ddbaca Mi nn 9e85ac 2015-06-05 2015-06-05 Appt with nullFlavo [facility] 9d0 4z75x-3 [facility] 21:52:00 21:52:00 CV r Specialties 0x8-7897-n l p98-78611p Mi nn 5765c8 2015-06-05 2015-06-05 Appt with nullFlavo [facility] a03 6ufi5-3 [facility] 21:52:00 21:52:00 CV r Specialties 0f7-7d2n-1 l 698-c90f87 [facility] nn 03d11e 2015-06-05 2015-06-05 Appt with nullFlavo [facility] 749 lx12z-4 [facility] 21:52:00 21:52:00 CV r Specialties 172-491b-9 l 350-c96a5f [facility] 2f13f6 2015-06-05 2015-06-05 Appt with nullFlavo [facility] a38 5j00j-l [facility] 21:52:00 21:52:00 CV r Specialties k4g-683b-1 l bce-3m261v [facility] 9ebfba 2015-06-05 2015-06-05 Appt with nullFlavo [facility] 105 63513-1 [facility] 21:52:00 21:52:00 CV r Specialties p90-5c22-j l df5-4vc724 [facility] dc3acd 2015-06-05 2015-06-05 Appt with nullFlavo [facility] 68e 00598-y [facility] 20:52:00 20:52:00 CV r Specialties 405-4428-b l 2r7-s45u7a [facility] nn 165b86 2015-06-05 2015-06-05 Appt with nullFlavo [facility] 1b8 450s1-9 [facility] 20:52:00 20:52:00 CV r Specialties 57d-4765-a l o6r-68556b [facility] 32e65f 2015-06-05 2015-06-05 Appt with nullFlavo [facility] 424 2678b-3 [facility] 20:52:00 20:52:00 CV r Specialties 0fc-42ea-8 l 890-10157j [facility] s79969 2015-06-05 2015-06-05 Appt with nullFlavo [facility] 0ff 270bc-f [facility] 20:52:00 20:52:00 CV r Specialties 6z2-3840-f l 003-862690 [facility] q9748b 2015-06-05 2015-06-05 Appt with nullFlavo [facility] e2b 37009-h [facility] 20:52:00 20:52:00 CV r Specialties 058-4dc2-a l 35e-997b19 Mi nn 698e4c 2015-06-05 2015-06-05 Appt with nullFlavo [facility] 49b 94007-6 [facility] 20:52:00 20:52:00 CV r Specialties y3n-3ts9-8 l df6-f02c13 Mi nn 7y2191 2015-06-05 2015-06-05 Appt with nullFlavo [facility] 3f0 4c97w-s [facility] 20:52:00 20:52:00 CV r Specialties w4d-7l48-x l g05-b01j15 Mi nn 3f7aa1 2015-06-05 2015-06-05 Appt with nullFlavo [facility] e89 6106d-b [facility] 20:52:00 20:52:00 CV r Specialties be2-4700-9 l 060-5m787u Mi nn 6799e2 2015-06-05 2015-06-05 Appt with nullFlavo [facility] 0af u6b62-3 [facility] 20:52:00 20:52:00 CV r Specialties 748-446f-9 l 180-f7e2b9 Mi nn st2051 2015-06-05 2015-06-05 Appt with nullFlavo [facility] d26 6r0pv-0 [facility] 20:52:00 20:52:00 CV r Specialties 93b-454f-9 l dcb-28f1a6 Mi nn 6048b0 2015-06-05 2015-06-05 Appt with nullFlavo [facility] 362 p833g-4 [facility] 20:52:00 20:52:00 CV r Specialties bf1-4fd4-b l 294-1gj359 Mi nn 65a4a0 2015-06-05 2015-06-05 Appt with nullFlavo [facility] 3a0 u4ap2-1 [facility] 20:52:00 20:52:00 CV r Specialties j11-7p46-7 l 007-d94fe1 Mi nn t99524 2015-06-05 2015-06-05 Appt with nullFlavo [facility] c32 nd66d-v [facility] 20:52:00 20:52:00 CV r Specialties 3w8-8270-m l 946-5e2bd7 Mi nn 66k076 2015-06-05 2015-06-05 Appt with nullFlavo [facility] cd8 88559-4 [facility] 20:52:00 20:52:00 CV r Specialties 9a2-42b9-c l 18a-da8e06 Mi nn 528167 8543-04-13 2015-06-05 Appt with nullFlavo [facility] fc6 3yv21-6 [facility] 20:52:00 20:52:00 CV r Specialties bbe-42be-9 l m61-rtl5o8 Mi nn 3d3204 2015-06-05 2015-06-05 Appt with nullFlavo [facility] 0d9 epx6q-z [facility] 20:52:00 20:52:00 CV r Specialties 6bf-4977-b l 6s3-2cx5ih Mi nn dded72 2015-06-05 2015-06-05 Chest D nullFlavo [facility] 6f79b 02a-d [facility] 20:45:00 20:45:00 r Specialties 5p9-2056-2 l bd4-66f8c9 Mi nn 39e24d 2015-06-05 2015-06-05 Chest D nullFlavo [facility] d6111 4a3-1 [facility] 20:45:00 20:45:00 r Specialties baa-4d42-b l r47-24zpj6 Mi nn 7t326t 2015-06-05 2015-06-05 Chest D nullFlavo [facility] 52817 218-4 [facility] 20:45:00 20:45:00 r Specialties 531-42e5-b l 33b-0373c6 Mi nn 7f14cd 2015-06-05 2015-06-05 Chest D nullFlavo [facility] 732bb 118-b [facility] 20:45:00 20:45:00 r Specialties 21f-4723-a l 2fc-z27136 Mi nn 584cfd 2015-06-05 2015-06-05 Chest D nullFlavo [facility] da74c 426-7 [facility] 20:45:00 20:45:00 r Specialties 7s2-1t75-c l 512-2x5366 Mi nn k9f382 2015-06-05 2015-06-05 Chest D nullFlavo [facility] d5362 0c5-1 [facility] 20:45:00 20:45:00 r Specialties 55e-4538-8 l 384-d93efc Mi nn 8j4373 2015-06-05 2015-06-05 Chest D nullFlavo [facility] 683b3 b43-5 [facility] 20:45:00 20:45:00 r Specialties 85e-4047-a l c6k-043659 Mi nn 7d28d6 2015-06-05 2015-06-05 Chest D nullFlavo [facility] 27dc7 1e7-7 [facility] 20:45:00 20:45:00 r Specialties a89-47pl-i l 083-cf52a8 Mi nn a50ac8 2015-06-05 2015-06-05 Chest D nullFlavo [facility] 0c7bd 24d-8 [facility] 20:45:00 20:45:00 r Specialties de8-43b8-9 l 5dc-b0d86d Mi nn 393271 9455-04-13 2015-06-05 Chest D nullFlavo [facility] 9c8c1 a27-0 [facility] 20:45:00 20:45:00 r Specialties elvia-49d2-9 l 1z2-084e0z Mi nn 725856 6436-04-13 2015-06-05 Chest D nullFlavo [facility] 8f685 5ef-9 [facility] 20:45:00 20:45:00 r Specialties p08-3813-r l 745-f936bc Mi nn e8633e 2015-06-05 2015-06-05 Chest D nullFlavo [facility] e8fbe 1c3-5 [facility] 20:45:00 20:45:00 r Specialties 25c-4a2a-a l 48c-9222d9 Mi nn 3b44cb 2015-06-05 2015-06-05 Chest D nullFlavo [facility] ad0c0 a9a-b [facility] 20:45:00 20:45:00 r Specialties abb-4ab2-b l 50a-a5dd68 Mi nn a1d2f7 2015-06-05 2015-06-05 Chest D nullFlavo [facility] 3472b 2e5-4 [facility] 19:45:00 19:45:00 r Specialties 306-4610-b l j4i-f5809e Mi nn ce5ba1 2015-06-05 2015-06-05 Chest D nullFlavo [facility] ea617 54b-b [facility] 19:45:00 19:45:00 r Specialties 116-4172-9 l 4ef-d55711 Mi nn a0b83a 2015-06-05 2015-06-05 Chest D nullFlavo [facility] cbc73 945-2 [facility] 19:45:00 19:45:00 r Specialties bb4-4203-9 l 350-f01d67 Mi nn 6j8176 2015-06-05 2015-06-05 Chest D nullFlavo [facility] fbda8 b30-f [facility] 19:45:00 19:45:00 r Specialties l9n-5571-f l ef9-24fc0e Mi nn af44cd 2015-06-05 2015-06-05 Chest D nullFlavo [facility] 81b3f e99-6 [facility] 19:45:00 19:45:00 r Specialties 9r4-18a9-q l 536-b4f9be Mi nn vr5356 2015-06-05 2015-06-05 Chest D nullFlavo [facility] c77eb e6b-e [facility] 19:45:00 19:45:00 r Specialties db2-4c9a-8 l 1s9-z5m88p Mi nn 1c5b2e 2015-06-05 2015-06-05 Chest D nullFlavo [facility] 10d68 114-8 [facility] 19:45:00 19:45:00 r Specialties 44e-40b3-9 l 389-94c738 Mi nn 9cfaa6 2015-06-05 2015-06-05 Chest D nullFlavo [facility] 08e53 529-4 [facility] 19:45:00 19:45:00 r Specialties 9ef-4859-9 l u9b-1ncyr3 Mi nn 7ec99d 2015-06-05 2015-06-05 Chest D nullFlavo [facility] 039eb aa9-6 [facility] 19:45:00 19:45:00 r Specialties 930-42ef-9 l 375-74ac7a Mi nn 5c54e7 2015-06-05 2015-06-05 Chest D nullFlavo [facility] 488e8 db2-0 [facility] 19:45:00 19:45:00 r Specialties p51-6u57-s l 2aa-2c0ed4 Mi nn 09451t 2015-06-05 2015-06-05 Chest D nullFlavo [facility] 015fe 530-5 [facility] 19:45:00 19:45:00 r Specialties 7fa-4d86-b l 771-2ab3cf Mi nn 503bac 2015-06-05 2015-06-05 Chest D nullFlavo [facility] 58e82 8a5-4 [facility] 19:45:00 19:45:00 r Specialties 777-4da3-b l 448-793360 Mi nn 4b36c2 2015-06-05 2015-06-05 Chest D nullFlavo [facility] c9dee f2b-6 [facility] 19:45:00 19:45:00 r Specialties 611-4271-8 l q76-820004 Mi nn 3c8dd4 2015-06-05 2015-06-05 Chest D nullFlavo [facility] 8bbff 8d2-b [facility] 19:45:00 19:45:00 r Specialties 39c-4364-8 l 929-3ac1af Mi nn 352a73 2015-06-05 2015-06-05 Chest D nullFlavo [facility] a6f81 36f-2 [facility] 19:45:00 19:45:00 r Specialties r9p-72te-p l 9be-7l8017 Mi nn 7b2096 2015-06-05 2015-06-05 Chest D nullFlavo [facility] 9a585 9e4-7 [facility] 19:45:00 19:45:00 r Specialties z51-8423-o l ed5-8l0252 Mi nn 3271d9 2015-06-05 2015-06-05 Chest D nullFlavo [facility] 745ab ee8-4 [facility] 19:45:00 19:45:00 r Specialties c18-0fs1-e l e56-332v4g Mi nn 8b7eda 2015-06-04 2015-06-04 Novoloin nullFlavo [facility] b940 260d-3 [facility] 19:16:00 19:16:00 70/30 Vial r Specialties 86c-46a 5-b l Refill s06-73120t Mi nn Request - 38f3bc refilled 2015-06-04 2015-06-04 Novoloin nullFlavo [facility] f06a 5b4f-e [facility] 19:16:00 19:16:00 70/30 Vial r Specialties 9ad-457 5-8 l Refill 33e-bs495f Mi nn Request - 664fdb refilled 2015-06-04 2015-06-04 Novoloin nullFlavo [facility] 5154 3253-2 [facility] 19:16:00 19:16:00 70/30 Vial r Specialties 7da-4a8 e-b l Refill 972-c9a857 Mi nn Request - 536dc6 refilled 2015-06-04 2015-06-04 Novoloin nullFlavo [facility] 7fcc d50b-1 [facility] 19:16:00 19:16:00 70/30 Vial r Specialties 9ea-4e8 1-8 l Refill edc-61ace4 Mi nn Request - 9b35f0 refilled 2015-06-04 2015-06-04 Novoloin nullFlavo [facility] 6e41 d608-a [facility] 19:16:00 19:16:00 70/30 Vial r Specialties d29-4a6 5-8 l Refill 542-9a5f4c Mi nn Request - 374a76 refilled 2015-06-04 2015-06-04 Novoloin nullFlavo [facility] c7a7 86e1-8 [facility] 19:16:00 19:16:00 70/30 Vial r Specialties 4f9-14y a-b l Refill 028-662b6e Mi nn Request - bg8559 refilled 2015-06-04 2015-06-04 Novoloin nullFlavo [facility] e4b8 5bb4-d [facility] 19:16:00 19:16:00 70/30 Vial r Specialties 541-4b2 8-8 l Refill 370-d253ec Mi nn Request - b0f9f6 refilled 2015-06-04 2015-06-04 Novoloin nullFlavo [facility] e409 72f8-c [facility] 19:16:00 19:16:00 70/30 Vial r Specialties 564-44b d-b l Refill 7bd-438ca6 Mi nn Request - da0d34 refilled 2015-06-04 2015-06-04 Novoloin nullFlavo [facility] 9e02 5b0e-2 [facility] 19:16:00 19:16:00 70/30 Vial r Specialties d95-475 6-9 l Refill 5fa-65v399 Mi nn Request - h83572 refilled 2015-06-04 2015-06-04 Novoloin nullFlavo [facility] 1c60 980e-7 [facility] 19:16:00 19:16:00 70/30 Vial r Skiipi d9d-85u 2-9 l Refill 0v1-r4ko9s Mi nn Request - 401153 refilled 2015-06-04 2015-06-04 Novoloin nullFlavo [facility] 6717 57cc-6 [facility] 19:16:00 19:16:00 70/30 Vial r Skiipi 1l5-412 4-9 l Refill 162-86fbb1 Mi nn Request - 16e54b refilled 2015-06-04 2015-06-04 Novoloin nullFlavo [facility] c9df e687-9 [facility] 19:16:00 19:16:00 70/30 Vial r Skiipi e07-4d8 5-a l Refill 8h4-h1d42o Mi nn Request - d49bd0 refilled 2015-06-04 2015-06-04 Novoloin nullFlavo [facility] 2ed1 ba6b-2 [facility] 19:16:00 19:16:00 70/30 Vial r Skiipi 822-435 4-8 l Refill ac9-c04baf Mi nn Request - 005728 refilled 2015-06-04 2015-06-04 Novoloin nullFlavo [facility] d70f 3eb9-2 [facility] 18:16:00 18:16:00 70/30 Vial r Specialties 998-4fb 3-8 l Refill ae6-68cb2a Mi nn Request - 80c6dd refilled 2015-06-04 2015-06-04 Novoloin nullFlavo [facility] ae05 4438-7 [facility] 18:16:00 18:16:00 70/30 Vial r Specialties 5j9-6q3 8-9 l Refill g50-j3505m Mi nn Request - 74f0a3 refilled 2015-06-04 2015-06-04 Novoloin nullFlavo [facility] 9d6c 2849-a [facility] 18:16:00 18:16:00 70/30 Vial r Specialties bd8-402 8-8 l Refill 3d0-l727a8 Mi nn Request - 883a7b refilled 2015-06-04 2015-06-04 Novoloin nullFlavo [facility] 4b1d 67b8-4 [facility] 18:16:00 18:16:00 70/30 Vial r Specialties 1bf-475 c-b l Refill 7w9-00dla4 Mi nn Request - 6d9eab refilled 2015-06-04 2015-06-04 Novoloin nullFlavo [facility] 1a97 d8ea-7 [facility] 18:16:00 18:16:00 70/30 Vial r Specialties 16a-439 8-a l Refill 1x5-6q9f30 Mi nn Request - cbaeef refilled 2015-06-04 2015-06-04 Novoloin nullFlavo Knippa 5e7c 9fc8-0 [facility] 18:16:00 18:16:00 70/30 Vial r Specialties 75a-404 e-b l Refill [id number] Mi nn Request - 0bi666 refilled 2015-06-04 2015-06-04 Novoloin nullFlavo Knippa d3e2 6d3d-a [facility] 18:16:00 18:16:00 70/30 Vial r Specialties 0g4-784 e-b l Refill 989-92bd49 Mi nn Request - 944a9d refilled 2015-06-04 2015-06-04 Novoloin nullFlavo Knippa ff61 a1db-1 [facility] 18:16:00 18:16:00 70/30 Vial r Specialties db2-4a9 4-a l Refill 464-f0b96a Mi nn Request - dcbf11 refilled 2015-06-04 2015-06-04 Novoloin nullFlavo Knippa a9ab 2710-2 [facility] 18:16:00 18:16:00 70/30 Vial r Specialties e5v-7d8 d-a l Refill 1t2-24v5l9 Mi nn Request - bef62b refilled 2015-06-04 2015-06-04 Novoloin nullFlavo Knippa 1855 b3b5-d [facility] 18:16:00 18:16:00 70/30 Vial r Specialties 89b-44a 9-a l Refill 9ae-e8f2fc Mi nn Request - aa6f8c refilled 2015-06-04 2015-06-04 Novoloin nullFlavo Knippa 713b 7590-5 [facility] 18:16:00 18:16:00 70/30 Vial r Specialties 88a-44f 8-b l Refill y9r-0009gh Mi nn Request - [id number] refilled 2015-06-04 2015-06-04 Novoloin nullFlavo Knippa 9ff9 1fff-5 [facility] 18:16:00 18:16:00 70/30 Vial r Specialties 1d3-79n 4-9 l Refill 5ab-63eb06 Mi nn Request - 25d7e5 refilled 2015-06-04 2015-06-04 Novoloin nullFlavo Knippa 475f 4ce4-a [facility] 18:16:00 18:16:00 70/30 Vial r Specialties d77-409 f-9 l Refill 91d-6yz435 Mi nn Request - 897bb9 refilled 2015-06-04 2015-06-04 Novoloin nullFlavo Knippa db9e ccea-2 [facility] 18:16:00 18:16:00 70/30 Vial r Specialties aea-456 e-9 l Refill 06a-ck8071 Mi nn Request - 9a5d84 refilled 2015-06-04 2015-06-04 Novoloin nullFlavo Knippa 6940 033c-9 [facility] 18:16:00 18:16:00 70/30 Vial r Specialties f23-4a4 6-b l Refill 432-08z635 Mi nn Request - 57f156 refilled 2015-06-04 2015-06-04 Novoloin nullFlavo Knippa 8881 1499-2 [facility] 18:16:00 18:16:00 70/30 Vial r Specialties e15-4c1 4-9 l Refill h65-ca60st Mi nn Request - 4d1fc1 refilled 2015-06-04 2015-06-04 Novoloin nullFlavo Knippa e241 2f4a-3 [facility] 18:16:00 18:16:00 70/30 Vial r Specialties 45e-4a3 b-8 l Refill 9l3-g46730 Mi nn Request - 9gh931 refilled 2015-06-04 2015-06-04 Novoloin nullFlavo Knippa 21ab e0d5-1 [facility] 18:16:00 18:16:00 70/30 Vial r Specialties 678-459 c-8 l Refill 60f-p19277 Mi nn Request - hh5437 refilled 2015-06-04 2015-06-04 Novoloin nullFlavo Knippa eeea 8cdd-6 [facility] 18:16:00 18:16:00 70/30 Vial r Specialties c1a-4x5 3-8 l Refill 807-83d7d0 Mi nn Request - 8u538u refilled 2015-05-31 2015-05-31 Chest nullFlavo Knippa 8240c f13-a [facility] 15:39:00 15:39:00 Discomfort r Specialties y3q-670 9-9 l 001-72177o Mi nn 21cf6f 2015-05-31 2015-05-31 Chest nullFlavo Knippa bc494 245-e [facility] 15:39:00 15:39:00 Discomfort r Specialties 998-416 8-a l 30c-38dd0a Mi nn 5c192d 2015-05-31 2015-05-31 Chest nullFlavo Knippa c0d55 b8b-1 [facility] 15:39:00 15:39:00 Discomfort r Specialties o0e-083 f-b l 9o3-1y30m8 Mi nn bcbd42 2015-05-31 2015-05-31 Chest nullFlavo Knippa e1d1b 27e-e [facility] 15:39:00 15:39:00 Discomfort r Specialties 82a-4cb a-8 l 343-9190fb Mi nn 2cb00f 2015-05-31 2015-05-31 Chest nullFlavo Knippa 4d4ac dd3-6 [facility] 15:39:00 15:39:00 Discomfort r Specialties 434-490 b-b l 31f-322f16 Mi nn f6c5fe 2015-05-31 2015-05-31 Chest nullFlavo Knippa 7828f d36-7 [facility] 15:39:00 15:39:00 Discomfort r Specialties 7w8-55y d-9 l s56-e3j427 Mi nn 32c63f 2015-05-31 2015-05-31 Chest nullFlavo Knippa 7ff03 776-3 [facility] 15:39:00 15:39:00 Discomfort r Specialties ca9-42b 7-8 l 08a-f6b3ca Mi nn d8c56e 2015-05-31 2015-05-31 Chest nullFlavo Knippa 3f961 75f-d [facility] 15:39:00 15:39:00 Discomfort r Specialties 275-484 5-a l x37-6083g2 Mi nn 65l796 2015-05-31 2015-05-31 Chest nullFlavo Knippa c24d2 6fe-0 [facility] 15:39:00 15:39:00 Discomfort r Specialties 3m5-2ht 0-9 l 824-ggd886 Mi nn vjl907 2015-05-31 2015-05-31 Chest nullFlavo Knippa 8a113 e10-8 [facility] 15:39:00 15:39:00 Discomfort r Specialties af8-414 4-9 l 296-768886 Mi nn 614528 4724-04-08 2015-05-31 Chest nullFlavo Knippa 1be38 22e-9 [facility] 15:39:00 15:39:00 Discomfort r Specialties df0-438 f-8 l 8q8-37k22w Mi nn 94d22f 2015-05-31 2015-05-31 Chest nullFlavo Knippa f8be3 487-2 [facility] 15:39:00 15:39:00 Discomfort r Specialties 91d-4e4 4-9 l 65f-1defb9 Mi nn 234f4f 2015-05-31 2015-05-31 Chest nullFlavo Knippa e5c4a 717-0 [facility] 15:39:00 15:39:00 Discomfort r Specialties 3d8-4as 3-8 l 9f6-zj994i Mi nn 066061 8625-04-08 2015-05-31 Chest nullFlavo Knippa 35c2c f38-a [facility] 14:39:00 14:39:00 Discomfort r Specialties 65e-4e7 e-8 l 5a2-37vh9w Mi nn 711618 9439-04-08 2015-05-31 Chest nullFlavo Knippa be6b7 92c-a [facility] 14:39:00 14:39:00 Discomfort r Specialties b74-47f 7-8 l fb3-e6bde6 Mi nn 33581l 2015-05-31 2015-05-31 Chest nullFlavo Knippa fed91 67e-b [facility] 14:39:00 14:39:00 Discomfort r Specialties 8n8-8sn a-8 l 999-6a4ae7 Mi nn 96ca0b 2015-05-31 2015-05-31 Chest nullFlavo Knippa a0355 019-0 [facility] 14:39:00 14:39:00 Discomfort r Specialties 4ab-4d3 1-9 l 176-52dbf1 Mi nn a1b64a 2015-05-31 2015-05-31 Chest nullFlavo Knippa 5996e 851-8 [facility] 14:39:00 14:39:00 Discomfort r Specialties 3o7-6g6 a-b l ef4-cdb5e9 Mi nn d0d96f 2015-05-31 2015-05-31 Chest nullFlavo Knippa cefbf c90-9 [facility] 14:39:00 14:39:00 Discomfort r Specialties 88a-4d9 7-a l 1z3-60k3ba Mi nn af08d3 2015-05-31 2015-05-31 Chest nullFlavo Knippa d7e65 c6a-1 [facility] 14:39:00 14:39:00 Discomfort r Specialties i3x-544 0-9 l db9-a8be19 Mi nn f9e68b 2015-05-31 2015-05-31 Chest nullFlavo Knippa 81c54 0cd-c [facility] 14:39:00 14:39:00 Discomfort r Specialties 5p8-2w0 9-a l 1ce-80bb52 Mi nn a517d1 2015-05-31 2015-05-31 Chest nullFlavo Knippa 0aa9b 9c0-5 [facility] 14:39:00 14:39:00 Discomfort r Specialties 763-4b3 1-8 l 7r9-od39dr Mi nn 763308 1223-04-08 2015-05-31 Chest nullFlavo Knippa ec535 629-3 [facility] 14:39:00 14:39:00 Discomfort r Specialties 6l5-0y0 a-9 l n00-9900by Mi nn [id number] 2015-05-31 2015-05-31 Chest nullFlavo Knippa fcbdf d66-3 [facility] 14:39:00 14:39:00 Discomfort r Specialties 875-48b 0-b l k7r-018o80 Mi nn k15705 2015-05-31 2015-05-31 Chest nullFlavo Knippa bc562 f72-0 [facility] 14:39:00 14:39:00 Discomfort r Specialties 7j9-5s3 4-b l 87e-2a9d55 Mi nn 3063c7 2015-05-31 2015-05-31 Chest nullFlavo Knippa 9fab1 7b6-e [facility] 14:39:00 14:39:00 Discomfort r Specialties 82e-413 f-a l 93e-f4de52 [facility] nn 8y4999 2015-05-31 2015-05-31 Chest nullFlavo Knippa e18a8 803-8 [facility] 14:39:00 14:39:00 Discomfort r Specialties 032-42e c-b l l8w-582988 [facility] nn 2d9e72 2015-05-31 2015-05-31 Chest nullFlavo Knippa d5a71 1da-6 [facility] 14:39:00 14:39:00 Discomfort r Specialties 761-493 f-a l r45-645125 [facility] nn 6ff2e2 2015-05-31 2015-05-31 Chest nullFlavo Knippa b467d 901-4 [facility] 14:39:00 14:39:00 Discomfort r Specialties 806-4a7 c-a l aea-260bf4 Mi nn 7cbdc9 2015-05-31 2015-05-31 Chest nullFlavo Knippa 41096 e1b-3 [facility] 14:39:00 14:39:00 Discomfort r Specialties s6b-0s2 0-a l 99f-c9bfd0 Mi nn 4w8520 2015-05-31 2015-05-31 Chest nullFlavo Knippa 71ce0 7c4-0 [facility] 14:39:00 14:39:00 Discomfort r Specialties 1y3-07n b-a l da1-5f87cf Mi nn 70751z 2015-05-29 2015-05-29 3MTH F/U nullFlavo Knippa 8c18 cc97-2 [facility] 19:15:00 19:15:00 r Specialties c90-14tg-5 l 277-gm8130 Mi nn b05cb3 2015-05-29 2015-05-29 3MTH F/U nullFlavo Knippa 9ad9 80aa-c [facility] 19:15:00 19:15:00 r Specialties r8z-7kka-9 l 6m2-w27221 Mi nn rn4428 2015-05-29 2015-05-29 3MTH F/U nullFlavo Knippa 64d2 9d29-c [facility] 19:15:00 19:15:00 r Specialties k98-38az-y l 9c7-3t0op2 Mi nn 53bb63 2015-05-29 2015-05-29 3MTH F/U nullFlavo Knippa a8d5 5efd-6 [facility] 19:15:00 19:15:00 r Specialties 427-457a-8 l i99-0elq90 Mi nn 101472 3840-04-06 2015-05-29 3MTH F/U nullFlavo Knippa 2eac 9dac-3 [facility] 19:15:00 19:15:00 r Specialties 149-45b6-8 l 8o0-p370ad Mi nn et6575 2015-05-29 2015-05-29 3MTH F/U nullFlavo Knippa 7065 064c-3 [facility] 19:15:00 19:15:00 r Specialties 24a-4dba-8 l 3ec-333566 Mi nn 8e4a0b 2015-05-29 2015-05-29 3MTH F/U nullFlavo Knippa 4c13 5712-7 [facility] 19:15:00 19:15:00 r Specialties 0x8-2428-s l 879-75add9 Mi nn 926255 4697-04-06 2015-05-29 3MTH F/U nullFlavo Knippa 6bc8 ce01-7 [facility] 19:15:00 19:15:00 r Specialties 9bf-409f-b l ea7-5bedb1 Mi nn 01fc6c 2015-05-29 2015-05-29 3MTH F/U nullFlavo Knippa df3d 6b8d-5 [facility] 19:15:00 19:15:00 r Specialties 588-4089-a l adb-d44d11 Mi nn 0ba3b3 2015-05-29 2015-05-29 3MTH F/U nullFlavo Knippa d863 caac-d [facility] 19:15:00 19:15:00 r Specialties 86c-4f72-8 l m46-06ea58 [facility] nn 157917 1599-04-06 2015-05-29 3MTH F/U nullFlavo Knippa 7e1c 07ca-6 [facility] 19:15:00 19:15:00 r Specialties de3-4884-9 l bcf-2c5a46 [facility] nn 305995 1626-04-06 2015-05-29 3MTH F/U nullFlavo Knippa 9cb9 ad1f-d [facility] 19:15:00 19:15:00 r Specialties 826-42e8-a l 5m4-u360bz [facility] nn e8bea4 2015-05-29 2015-05-29 3MTH F/U nullFlavo Knippa 6627 d4ae-c [facility] 19:15:00 19:15:00 r Specialties 590-465e-a l w35-97ii4h [facility] nn po0869 2015-05-29 2015-05-29 3MTH F/U nullFlavo Knippa f085 3584-2 [facility] 18:15:00 18:15:00 r Specialties ee2-4687-8 l dbb-6f2175 [facility] nn dced7d 2015-05-29 2015-05-29 3MTH F/U nullFlavo Knippa b307 618f-4 [facility] 18:15:00 18:15:00 r Specialties 9m5-6075-g l 6fe-74766c [facility] nn 72031w 2015-05-29 2015-05-29 3MTH F/U nullFlavo Knippa ed33 073f-7 [facility] 18:15:00 18:15:00 r Specialties 632-43e1-a l 936-bh825h Mi nn 5d7cf9 2015-05-29 2015-05-29 3MTH F/U nullFlavo Knippa 176c 194d-3 [facility] 18:15:00 18:15:00 r Specialties ae3-4e23-a l 2z3-x3881f Mi nn c35d3d 2015-05-29 2015-05-29 3MTH F/U nullFlavo Knippa 9404 784c-d [facility] 18:15:00 18:15:00 r Specialties 4ca-401b-8 l 99e-a062eb Mi nn 2015-05-29 2015-05-29 3MTH F/U nullFlavo Knippa 09ae 5f5f-c [facility] 18:15:00 18:15:00 r Specialties 1g6-915n-6 l o1d-3j6881 Mi nn 81dea2 2015-05-29 2015-05-29 3MTH F/U nullFlavo Knippa b592 849d-9 [facility] 18:15:00 18:15:00 r Specialties aeb-48db-b l 194-03cd1e Mi nn 169abb 2015-05-29 2015-05-29 3MTH F/U nullFlavo Knippa b39f c721-f [facility] 18:15:00 18:15:00 r Specialties af4-4cd0-a l 2a4-z3z176 Mi nn 7f9f7e 2015-05-29 2015-05-29 3MTH F/U nullFlavo Knippa 282d 7e1e-9 [facility] 18:15:00 18:15:00 r Specialties 101-4440-b l 679-e13ce1 Mi nn 40c0e7 2015-05-29 2015-05-29 3MTH F/U nullFlavo Knippa 8328 e5e7-d [facility] 18:15:00 18:15:00 r Specialties 383-48bb-a l bde-8b3836 Mi nn 2798cd 2015-05-29 2015-05-29 3MTH F/U nullFlavo Knippa 8d58 8b74-4 [facility] 18:15:00 18:15:00 r Specialties 38c-434a-a l 6i6-3r4lp6 Mi nn 66l709 2015-05-29 2015-05-29 3MTH F/U nullFlavo Knippa 78aa 7f55-d [facility] 18:15:00 18:15:00 r Specialties g03-1vji-b l o21-02k8m3 [facility] d518b5 2015-05-29 2015-05-29 3MTH F/U nullFlavo Knippa b750 fe17-2 [facility] 18:15:00 18:15:00 r Specialties 367-4c74-b l 5l2-3v3850 [facility] nn e297bc 2015-05-29 2015-05-29 3MTH F/U nullFlavo Knippa aa3c d0e8-0 [facility] 18:15:00 18:15:00 r Specialties 563-4ccf-a l 172-92c2d7 [facility] 51c1f0 2015-05-29 2015-05-29 3MTH F/U nullFlavo Knippa a91a 81c7-b [facility] 18:15:00 18:15:00 r Specialties 72e-411c-8 l af8-51c30f [facility] nn 96d579 2015-05-29 2015-05-29 3MTH F/U nullFlavo Knippa e474 7d04-f [facility] 18:15:00 18:15:00 r Specialties 7b3-54t8-a l 053-lz6311 [facility] f1ced5 2015-05-29 2015-05-29 3MTH F/U nullFlavo Knippa 1d36 d260-a [facility] 18:15:00 18:15:00 r Specialties 06a-4bf1-9 l ec3-31f7fd [facility] nn 02185d 2015-05-29 2015-05-29 3MTH F/U nullFlavo Knippa 2589 9881-a [facility] 18:15:00 18:15:00 r Specialties 141-480a-b l 8w7-01f336 [facility] nn f1ff14 2015-05-29 2015-05-29 3MTH F/U nullFlavo Knippa 6de8 4b8d-e [facility] 18:15:00 18:15:00 r Specialties 6t1-1g5e-e l 1d3-2s6s23 [facility] 093a11 2015-05-29 2015-05-29 3MTH F/U nullFlavo Knippa cbd5 bb8c-d [facility] 18:15:00 18:15:00 r Specialties 9i7-20ty-1 l f06-j1934r Mi nn zj666x 2015-05-16 2015-05-16 Outpatient IE IE [id number] 565 [facility] 19:00:00 19:00:00 01 l [place] 2015-04-25 2015-04-25 Outpatient [facility] [id number] 565 [facility] 20:20:00 20:20:00 00 l [place] 2015-04-08 2015-04-08 Test nullFlavo Knippa 04e84 f20-9 [facility] 22:24:00 22:24:00 results- r Specialties 00b-4cd8- 8 l done b41-uq1p0d [facility] nn 449e2d 2015-04-08 2015-04-08 Test nullFlavo Knippa a4dc9 821-3 [facility] 22:24:00 22:24:00 results- r Specialties fed-4fb4- b l done 4q3-z0321d [facility] nn 2d59eb 2015-04-08 2015-04-08 Test nullFlavo Knippa e2b2a e12-0 [facility] 22:24:00 22:24:00 results- r Specialties y31-3433- a l done 30b-3727f4 [facility] nn 2606f0 2015-04-08 2015-04-08 Test nullFlavo Knippa 84dab 709-7 [facility] 22:24:00 22:24:00 results- r Specialties 78c-4b72- 9 l done 86d-0tz227 [facility] nn 5523e0 2015-04-08 2015-04-08 Test nullFlavo Knippa 5b010 d1b-f [facility] 22:24:00 22:24:00 results- r Specialties l66-73q1- a l done a52-937l85 Mi nn 2d2e2c 2015-04-08 2015-04-08 Test nullFlavo Knippa e9d8e ce8-0 [facility] 22:24:00 22:24:00 results- r Specialties 44c-4610- 8 l done 69a-b1054p Mi nn v16663 2015-04-08 2015-04-08 Test nullFlavo Knippa 921c9 53e-1 [facility] 22:24:00 22:24:00 results- r Specialties t41-644r- 8 l done q15-z2z361 Mi nn 9eabc1 2015-04-08 2015-04-08 Test nullFlavo Knippa fce90 0c1-1 [facility] 22:24:00 22:24:00 results- r Specialties 9j7-920n- b l done 827-de63da Mi nn 8c8b5a 2015-04-08 2015-04-08 Test nullFlavo Knippa 1aaf8 c8a-0 [facility] 22:24:00 22:24:00 results- r Specialties f1z-669h- 9 l done 385-aeda29 Mi nn 677002 1704-02-15 2015-04-08 Test nullFlavo Knippa a9697 759-b [facility] 22:24:00 22:24:00 results- r Specialties 339-4e95- 9 l done 519-37530i Mi nn ad32d4 2015-04-08 2015-04-08 Test nullFlavo Knippa eef28 254-d [facility] 22:24:00 22:24:00 results- r Specialties 226-44c5- 9 l done r73-4l9p0r Mi nn 5hm686 2015-04-08 2015-04-08 Test nullFlavo Knippa d516a fc7-3 [facility] 22:24:00 22:24:00 results- r Specialties 8l4-2t7z- a l done 66e-215a1b Mi nn d067ea 2015-04-08 2015-04-08 Test nullFlavo Knippa ee45e d2c-4 [facility] 22:24:00 22:24:00 results- r Specialties 036-45f7- 8 l done 4h9-vq6y9w Mi nn dca55d 2015-04-08 2015-04-08 Test nullFlavo Knippa 726b0 e04-8 [facility] 22:24:00 22:24:00 results- r Specialties x64-97j8- b l done bba-he318y Mi nn 2fc16d 2015-04-08 2015-04-08 Test nullFlavo Knippa 1c312 2ae-4 [facility] 21:24:00 21:24:00 results- r Specialties m9e-0906- 9 l done 172-e5cf3a Mi nn d71f19 2015-04-08 2015-04-08 Test nullFlavo Knippa 8fcc9 b89-2 [facility] 21:24:00 21:24:00 results- r Specialties 0e3-913z- 8 l done ad5-b91ed9 Mi nn 0c0725 2015-04-08 2015-04-08 Test nullFlavo Knippa b583c 34f-d [facility] 21:24:00 21:24:00 results- r Specialties 54b-4996- b l done adc-a3l147 Mi nn d501be 2015-04-08 2015-04-08 Test nullFlavo Knippa 734f2 274-c [facility] 21:24:00 21:24:00 results- r Specialties 54e-449e- b l done 564-06c86e [facility] nn 118c6a 2015-04-08 2015-04-08 Test nullFlavo Knippa 5c140 1b4-5 [facility] 21:24:00 21:24:00 results- r Specialties 91d-4636- 8 l done ea4-6aa8e5 [facility] nn 941b51 2015-04-08 2015-04-08 Test nullFlavo Knippa 705a7 f82-c [facility] 21:24:00 21:24:00 results- r Specialties 0u8-6987- a l done 6h7-77x587 [facility] nn acf7ef 2015-04-08 2015-04-08 Test nullFlavo Knippa 722be 733-c [facility] 21:24:00 21:24:00 results- r Specialties 815-43f9- a l done 998-dba89d [facility] nn 749573 1852-02-15 2015-04-08 Test nullFlavo Knippa b42a1 216-2 [facility] 21:24:00 21:24:00 results- r Specialties z2j-4191- 9 l done 853-9e2c28 Mi nn 675238 9195-02-15 2015-04-08 Test nullFlavo Knippa 63cd5 b85-6 [facility] 21:24:00 21:24:00 results- r Specialties 3fe-47b9- 9 l done bbf-480631 [facility] nn 2696c7 2015-04-08 2015-04-08 Test nullFlavo Knippa 8789a 8af-6 [facility] 21:24:00 21:24:00 results- r Specialties 104-4272- 8 l done 0t7-297584 [facility] 160d43 2015-04-08 2015-04-08 Test nullFlavo Knippa 3ce2d b0f-e [facility] 21:24:00 21:24:00 results- r Specialties 754-4bc4- a l done 23c-v06921 [facility] nn 5937a1 2015-04-08 2015-04-08 Test nullFlavo Knippa 48c65 9f6-0 [facility] 21:24:00 21:24:00 results- r Specialties 618-4b1d- a l done 823-bcf0c2 [facility] 44ba03 2015-04-08 2015-04-08 Test nullFlavo Knippa 3bcba 6aa-9 [facility] 21:24:00 21:24:00 results- r Specialties 1q5-6787- a l done x49-b4d50w [facility] 5kk923 2015-04-08 2015-04-08 Test nullFlavo Knippa 60b0c c93-6 [facility] 21:24:00 21:24:00 results- r Specialties 8q6-4509- b l done j1x-96234f [facility] 24x250 2015-04-08 2015-04-08 Test nullFlavo Knippa 0adc4 a77-8 [facility] 21:24:00 21:24:00 results- r Specialties 1y4-78x5- a l done 550-98e4fa [facility] nn 5126dc 2015-04-08 2015-04-08 Test nullFlavo Knippa 6f26d 17a-8 [facility] 21:24:00 21:24:00 results- r Specialties 085-43ba- b l done 35b-ad40c4 [facility] 2oh797 2015-04-08 2015-04-08 Test nullFlavo Knippa 86b03 58d-4 [facility] 21:24:00 21:24:00 results- r Specialties 0b6-5762- a l done ee9-t7h638 [facility] df8d24 2015-04-08 2015-04-08 Test nullFlavo Knippa 8ac4d a48-c [facility] 21:24:00 21:24:00 results- r Specialties 0t6-1ks6- 9 l done 576-8c3f33 [facility] nn 7fba41 2015-04-08 2015-04-08 Test nullFlavo Knippa 7da70 05a-c [facility] 21:24:00 21:24:00 results- r Specialties 76f-4f3f- a l done 79a-35a62f [facility] nn 1717f2 2015-04-08 2015-04-08 Test nullFlavo Knippa 9c500 3e3-4 [facility] 21:24:00 21:24:00 results- r Specialties 81c-4052- 8 l done x10-c23366 [facility] nn 878178 8222-01-13 2015 mth f/u nullFlavo Knippa 43789 9cc-6 [facility] 19:45:00 19:45:00 r Specialties bb3-4d17-b l 627-f8d9be [facility] nn w42562 2015 2015 mth f/u nullFlavo Knippa 1f810 e1c-6 [facility] 19:45:00 19:45:00 r Specialties 8v4-61q8-2 l 63e-032706 [facility] 5b81c7 2015 2015 mth f/u nullFlavo Knippa 304b7 5e4-f [facility] 19:45:00 19:45:00 r Specialties 263-4b3d-9 l 823-442c1a [facility] nn 93ce4a 2015 2015 mth f/u nullFlavo Knippa 93a95 0bd-9 [facility] 19:45:00 19:45:00 r Specialties 097-4e0e-8 l m77-62407a [facility] a68f5b 2015 2015 mth f/u nullFlavo Knippa db3b1 cc4-d [facility] 19:45:00 19:45:00 r Specialties 04b-46ed-8 l 36d-8c4c14 [facility] d70cc8 2015 2015 mth f/u nullFlavo Knippa 8886a bc5-c [facility] 19:45:00 19:45:00 r Specialties 1b3-2f57-w l 7cd-8l7244 Mi nn e916a1 2015 2015 mth f/u nullFlavo Knippa 80643 1d9-4 [facility] 19:45:00 19:45:00 r Specialties x3j-4289-d l 150-54c6f0 Mi nn 5ac77e 2015 2015 mth f/u nullFlavo Knippa 6138d 61d-4 [facility] 19:45:00 19:45:00 r Specialties t4r-75ex-e l 977-3j519c Mi nn 30a0c5 2015 2015 mth f/u nullFlavo Knippa eba32 f81-4 [facility] 19:45:00 19:45:00 r Specialties 49f-4fa5-9 l 99a-9fb36e Mi nn 18736v 2015 2015 mth f/u nullFlavo Knippa 4fbdd fd1-e [facility] 19:45:00 19:45:00 r Specialties f5y-9s59-3 l ce5-57a134 Mi nn b330d4 2015 2015 mth f/u nullFlavo Knippa b7271 87e-a [facility] 19:45:00 19:45:00 r Specialties 107-45a2-9 l cb2-ac1e03 Mi nn cg560z 2015 2015 mth f/u nullFlavo Knippa ca4f0 9b1-3 [facility] 19:45:00 19:45:00 r Specialties 8ed-42b6-b l 357-f567ff Mi nn m3711s 2015 2015 mth f/u nullFlavo Knippa adbfd 4f7-4 [facility] 19:45:00 19:45:00 r Specialties 683-4a4e-a l af4-d66ee8 Mi nn e00c4c 2015 2015 mth f/u nullFlavo Knippa fa5bb a02-4 [facility] 19:45:00 19:45:00 r Specialties 48e-4390-9 l 68d-699080 Mi nn 3cf11f 2015 2015 mth f/u nullFlavo Knippa 87843 20a-6 [facility] 19:45:00 19:45:00 r Specialties l75-930j-6 l feb-76ffa4 Mi nn 7391cb 2015 2015 mth f/u nullFlavo Knippa 94fc5 9d8-2 [facility] 18:45:00 18:45:00 r Specialties 6t8-7sf9-i l 71c-aa2edc Mi nn f11ffd 2015 2015 mth f/u nullFlavo Knippa eaf14 bf1-9 [facility] 18:45:00 18:45:00 r Specialties c92-8r6l-l l 1f5-5628o4 Mi nn 055686 8766-01-13 2015 mth f/u nullFlavo Knippa 5d71f 3f7-a [facility] 18:45:00 18:45:00 r Specialties ba9-4b54-b l 8be-7b3bfe Mi nn 82a0e3 2015 2015 mth f/u nullFlavo Knippa 42508 8d2-9 [facility] 18:45:00 18:45:00 r Specialties 767-4f88-a l 2c8-4u7fyv Mi nn addbd4 2015 2015 mth f/u nullFlavo Knippa 23dd5 f2a-9 [facility] 18:45:00 18:45:00 r Specialties 51a-4a2b-a l 957-6q542u Mi nn 549a2d 2015 2015 mth f/u nullFlavo Knippa 9d550 c23-d [facility] 18:45:00 18:45:00 r Specialties abd-4331-a l 935-e165c3 Mi nn faa4b0 2015 2015 mth f/u nullFlavo Knippa 1bad5 b20-f [facility] 18:45:00 18:45:00 r Specialties bf7-46b7-8 l 747-634a89 Mi nn 728a6a 2015 2015 mth f/u nullFlavo Knippa 58641 ea4-0 [facility] 18:45:00 18:45:00 r Specialties 3aa-4899-b l 12a-47ba83 Mi nn 48dfeb 2015 2015 mth f/u nullFlavo Knippa d1a7f cc3-2 [facility] 18:45:00 18:45:00 r Specialties 493-4979-b l o70-8y7gsg Mi nn i01663 2015 2015 mth f/u nullFlavo Knippa 93c5b 98d-d [facility] 18:45:00 18:45:00 r Specialties bbd-486e-b l ff4-9aef5e Mi nn 1e4fc3 2015 2015 mth f/u nullFlavo Knippa eec5d 466-f [facility] 18:45:00 18:45:00 r Specialties 7z9-21w4-8 l 713-929f14 Mi nn 9048de 2015 2015 mth f/u nullFlavo Knippa d4e15 e95-f [facility] 18:45:00 18:45:00 r Specialties 9ae-48a5-b l w80-wc483l Mi nn 715ff2 2015 2015 mth f/u nullFlavo Knippa 57ea9 b25-5 [facility] 18:45:00 18:45:00 r Specialties 4z3-7e7z-2 l 82b-c960f6 Mi nn d071af 2015 2015 mth f/u nullFlavo Knippa 7a5b4 7be-2 [facility] 18:45:00 18:45:00 r Specialties 08c-4069-a l 8f7-38l084 Mi nn 85731s 2015 2015 mth f/u nullFlavo Knippa 2f3c4 d99-9 [facility] 18:45:00 18:45:00 r Specialties 8ca-49ff-a l p7c-00fl39 Mi nn 5ba7de 2015 2015 mth f/u nullFlavo Knippa b447d 9c2-a [facility] 18:45:00 18:45:00 r Specialties 51d-4e56-9 l 3b4-4av43f Mi nn 974061 8351-01-13 2015 mth f/u nullFlavo Knippa b6478 68b-1 [facility] 18:45:00 18:45:00 r Specialties p1e-4262-b l 2o0-3xdq3f [facility] nn g44889 2015 2015 mth f/u nullFlavo Knippa 7a3a3 9ae-4 [facility] 18:45:00 18:45:00 r Specialties 6o5-9445-4 l s40-480p2n Mi nn 90cef9 2015 2015 mth f/u nullFlavo Knippa a5042 af0-b [facility] 18:45:00 18:45:00 r Specialties df8-4480-a l 2j0-5im290 [facility] nn ay304f 2015 2015 mth f/u nullFlavo Knippa 87808 9eb-8 [facility] 18:45:00 18:45:00 r Specialties 198-4dbe-8 l 484-f786e3 [facility] nn lo120r 2015-02-01 2015-02-01 PCN nullFlavo Knippa a52f9 88c-d [facility] 19:06:00 19:06:00 Request r Specialties 41d-4721-9 l 5m0-7j9la3 Mi nn 4fcbb3 2015-02-01 2015-02-01 PCN nullFlavo Knippa b48a0 cad-0 [facility] 19:06:00 19:06:00 Request r Specialties 185-490f-9 l h0t-61hw29 [facility] nn ct2053 2015-02-01 2015-02-01 PCN nullFlavo Knippa 95786 rhea-4 [facility] 19:06:00 19:06:00 Request r Specialties u4a-0buy-2 l 11e-8425ce Mi nn 46ee9a 2015-02-01 2015-02-01 PCN nullFlavo Knippa af260 87a-1 [facility] 19:06:00 19:06:00 Request r Specialties 90b-4707-b l 4m4-0w633f Mi nn a303c1 2015-02-01 2015-02-01 PCN nullFlavo Knippa bc9f9 c04-c [facility] 19:06:00 19:06:00 Request r Specialties 912-475f-8 l 913-c7fda3 Mi nn 13b8c9 2015-02-01 2015-02-01 PCN nullFlavo Knippa f092a 40b-d [facility] 19:06:00 19:06:00 Request r Specialties 192-45e1-8 l dd8-d94c78 Mi nn 4cf123 2015-02-01 2015-02-01 PCN nullFlavo Knippa ac34c a01-7 [facility] 19:06:00 19:06:00 Request r Specialties 143-42e0-b l 220-57787s Mi nn 555803 6851-12-11 2015-02-01 PCN nullFlavo Knippa e4476 bb9-b [facility] 19:06:00 19:06:00 Request r Specialties ef5-4679-a l i07-0cmw29 Mi nn 42bdcd 2015-02-01 2015-02-01 PCN nullFlavo Knippa f1a59 058-6 [facility] 19:06:00 19:06:00 Request r Specialties 638-4232-9 l x7q-530s73 Mi nn 3bac52 2015-02-01 2015-02-01 PCN nullFlavo Knippa e5505 abc-c [facility] 19:06:00 19:06:00 Request r Specialties afe-4174-b l 9l4-z775k7 Mi nn f64319 2015-02-01 2015-02-01 PCN nullFlavo Knippa 033c9 e23-0 [facility] 19:06:00 19:06:00 Request r Specialties 0fb-4920-8 l 934-6bfebc Mi nn f537c7 2015-02-01 2015-02-01 PCN nullFlavo Knippa 6af5d 72d-d [facility] 19:06:00 19:06:00 Request r Specialties 52c-4432-9 l 10f-3f10ff Mi nn 64e5a4 2015-02-01 2015-02-01 PCN nullFlavo Knippa 78d11 fa7-2 [facility] 19:06:00 19:06:00 Request r Specialties 295-4473-b l 429-5c634j Mi nn 4d3dcc 2015-02-01 2015-02-01 PCN nullFlavo Knippa f26d1 626-4 [facility] 19:06:00 19:06:00 Request r Specialties 975-40d0-a l 0x8-w86yo8 Mi nn f7de88 2015-02-01 2015-02-01 PCN nullFlavo Knippa b617f 7fa-9 [facility] 19:06:00 19:06:00 Request r Specialties af1-4743-b l 447-660cad Mi nn 01272o 2015-02-01 2015-02-01 PCN nullFlavo Knippa 0dba1 981-3 [facility] 19:06:00 19:06:00 Request r Specialties 4h1-4p12-8 l [id number] Mi nn a3ae7c 2015-02-01 2015-02-01 PCN nullFlavo Knippa 5d8cb dc0-6 [facility] 19:06:00 19:06:00 Request r Specialties bfa-4f6a-9 l [id number] Mi nn [id number] 2015-02-01 2015-02-01 Return nullFlavo Knippa ed883 0e9-1 [facility] 19:03:00 19:03:00 Call r Specialties ca8-4e79-8 l Needed 3c2-v1olk4 Mi nn [id number] 2015-02-01 2015-02-01 Return nullFlavo Knippa a23c1 7b9-2 [facility] 19:03:00 19:03:00 Call r Specialties 0r4-1489-i l Needed m5a-l842s4 Mi nn [id number] 2015-02-01 2015-02-01 Return nullFlavo Knippa 3f006 932-4 [facility] 19:03:00 19:03:00 Call r Specialties d18-821i-w l Needed z28-96btde Mi nn [id number] 0264-12-11 2015-02-01 Return nullFlavo Knippa 4843b b5a-f [facility] 19:03:00 19:03:00 Call r Specialties ce5-4443-9 l Needed [id number]-700c27 [facility] 6e33d7 2015-02-01 2015-02-01 Return nullFlavo Knippa 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 [facility] 19:03:00 19:03:00 Call r Specialties 210-4fe7-a l Needed 26a-yq6327 [facility] 20691m 2015-02-01 2015-02-01 Return nullFlavo Knippa ea0e3 ff4-9 [facility] 19:03:00 19:03:00 Call r Specialties 333-4553-a l Needed [id number] [facility] 197b59 2015-02-01 2015-02-01 Return nullFlavo Knippa b5485 724-7 [facility] 19:03:00 19:03:00 Call r Specialties 94e-4738-9 l Needed 480-cdc84f [facility] 205589 4817-12-11 2015-02-01 Return nullFlavo Knippa 45cad e5c-8 [facility] 19:03:00 19:03:00 Call r Specialties 788-46d8-8 l Needed [id number] [facility] b9139n 2015-02-01 2015-02-01 Return nullFlavo Knippa 4d1e6 e08-4 [facility] 19:03:00 19:03:00 Call r Specialties 26a-49b2-a l Needed 261-16a0b0 [facility] 00y738 2015-02-01 2015-02-01 Return nullFlavo Knippa 09065 9b2-e [facility] 19:03:00 19:03:00 Call r Specialties 32a-458b-9 l Needed d9u-34enw5 [facility] [id number] 2015-02-01 2015-02-01 Return nullFlavo Knippa 2c3cc af5-2 [facility] 19:03:00 19:03:00 Call r Specialties da0-4bdb-b l Needed 9ec-fa48ed [facility] d2857x 2015-02-01 2015-02-01 Return nullFlavo Knippa 9a93f d34-b [facility] 19:03:00 19:03:00 Call r Specialties bc9-4f70-b l Needed q1y-81b01t [facility] 386238 1339-12-11 2015-02-01 Return nullFlavo Knippa 88c03 a80-1 [facility] 19:03:00 19:03:00 Call r Specialties 1df-471d-b l Needed 20d-jlo655 Mi nn d9fe6c 2015-02-01 2015-02-01 Return nullFlavo Knippa ae47f dc5-c [facility] 19:03:00 19:03:00 Call r Specialties 98a-4660-b l Needed 2z4-8e92b2 Mi nn d3a6ed 2015-02-01 2015-02-01 Return nullFlavo Knippa 4520b 544-2 [facility] 19:03:00 19:03:00 Call r Specialties 517-443b-b l Needed [id number] [facility] 162994 6886-12-11 2015-02-01 Return nullFlavo Knippa 1791d 4b9-9 [facility] 19:03:00 19:03:00 Call r Specialties 515-4a36-b l Needed [id number]-k53745 [facility] 48a19b 2015-02-01 2015-02-01 Return nullFlavo Knippa 5ddbd 9a7-9 [facility] 19:03:00 19:03:00 Call r Specialties 943-4e31-b l Needed 298-0ea1a0 [facility] nn a817bd 2015-02-01 2015-02-01 PCN nullFlavo Knippa 9ab55 b1b-6 [facility] 18:06:00 18:06:00 Request r Specialties 090-4ded-8 l m7c-5d12il [facility] gkt094 2015-02-01 2015-02-01 PCN nullFlavo Knippa d3d61 362-2 [facility] 18:06:00 18:06:00 Request r Specialties 693-47b9-9 l [id number] [facility] 42fcd0 2015-02-01 2015-02-01 PCN nullFlavo Knippa 687eb ad1-1 [facility] 18:06:00 18:06:00 Request r Specialties 123-4cdf-9 l [id number] [facility] ab0da6 2015-02-01 2015-02-01 PCN nullFlavo Knippa 0596c f5d-4 [facility] 18:06:00 18:06:00 Request r Specialties e70-87i3-4 l 160-2961b2 Mi nn 845c7e 2015-02-01 2015-02-01 PCN nullFlavo Knippa cc63a c8f-d [facility] 18:06:00 18:06:00 Request r Specialties 667-40a0-8 l z55-8o6c2a Mi nn [id number] 2015-02-01 2015-02-01 PCN nullFlavo Knippa b0938 379-b [facility] 18:06:00 18:06:00 Request r Specialties 273-4be5-9 l ff1-fade4f Mi nn f3d23f 2015-02-01 2015-02-01 PCN nullFlavo Knippa 29c6b 12b-1 [facility] 18:06:00 18:06:00 Request r Specialties 507-4631-8 l [id number]-6q5014 Mi nn 57bec7 2015-02-01 2015-02-01 PCN nullFlavo Knippa 07795 363-e [facility] 18:06:00 18:06:00 Request r Specialties 887-42f3-9 l l5i-x8j18x [facility] nn c0ec09 2015-02-01 2015-02-01 PCN nullFlavo Knippa fb2db a82-9 [facility] 18:06:00 18:06:00 Request r Specialties 6ac-4d89-b l n5p-26f278 [facility] nn a0cc19 2015-02-01 2015-02-01 PCN nullFlavo Knippa 708df 176-5 [facility] 18:06:00 18:06:00 Request r Specialties 6bb-44cb-9 l 1fc-4c7226 Mi nn ur227w 2015-02-01 2015-02-01 PCN nullFlavo Knippa d1c87 243-e [facility] 18:06:00 18:06:00 Request r Specialties 279-43ad-9 l 54d-95329u Mi nn [id number] 2015-02-01 2015-02-01 PCN nullFlavo Knippa 65111 4e2-2 [facility] 18:06:00 18:06:00 Request r Specialties b0w-5820-b l r10-2g91te Mi nn 6190ac 2015-02-01 2015-02-01 PCN nullFlavo Knippa 81833 3fa-5 [facility] 18:06:00 18:06:00 Request r Specialties m7p-917b-x l 8s9-el16no Mi nn ud026m 2015-02-01 2015-02-01 PCN nullFlavo Knippa c14b9 e45-8 [facility] 18:06:00 18:06:00 Request r Specialties 19e-49ab-8 l de1-62d96c Mi nn 9bbaf2 2015-02-01 2015-02-01 PCN nullFlavo Knippa 01ac4 18c-1 [facility] 18:06:00 18:06:00 Request r Specialties 052-4f95-a l 175-a463f1 Mi nn 6fcda3 2015-02-01 2015-02-01 PCN nullFlavo Knippa a9640 85e-0 [facility] 18:06:00 18:06:00 Request r Specialties 6da-4f52-9 l c1z-82xlnm Mi nn 87dceb 2015-02-01 2015-02-01 PCN nullFlavo Knippa c8ee4 9e6-2 [facility] 18:06:00 18:06:00 Request r Specialties h65-2963-2 l 6h3-036t4z Mi nn w38177 2015-02-01 2015-02-01 PCN nullFlavo Knippa cc1ba tai-8 [facility] 18:06:00 18:06:00 Request r Specialties 9t9-9k3j-8 l db7-b874f3 Mi nn 68c7dd 2015-02-01 2015-02-01 PCN nullFlavo Knippa ad644 d7c-d [facility] 18:06:00 18:06:00 Request r Specialties 57e-48b8-9 l j51-n8czuj Mi nn f0daed 2015-02-01 2015-02-01 PCN nullFlavo Knippa 07c3b e70-5 [facility] 18:06:00 18:06:00 Request r Specialties 32d-4ad0-a l 479-e670d8 Mi nn 348bcd 2015-02-01 2015-02-01 Return nullFlavo Knippa 502cc 77b-2 [facility] 18:03:00 18:03:00 Call r Specialties y7p-6718-s l Needed 9q7-918630 Mi nn 2y329x 2015-02-01 2015-02-01 Return nullFlavo Knippa 130b1 2ae-c [facility] 18:03:00 18:03:00 Call r Specialties ae5-432c-9 l Needed 612-faa9ee Mi nn 626118 3931-12-11 2015-02-01 Return nullFlavo Knippa 2b3be fc4-a [facility] 18:03:00 18:03:00 Call r Specialties 124-4a03-9 l Needed 7t4-d1k15a Mi nn z5165k 2015-02-01 2015-02-01 Return nullFlavo Knippa 9636b cd8-9 [facility] 18:03:00 18:03:00 Call r Specialties 575-4824-8 l Needed f7r-gqfl26 Mi nn 5efdf5 2015-02-01 2015-02-01 Return nullFlavo Knippa cc31e a9d-9 [facility] 18:03:00 18:03:00 Call r Specialties fbc-4d59-a l Needed y20-yy9u32 Mi nn n8g647 2015-02-01 2015-02-01 Return nullFlavo Knippa 92c5e 6c7-7 [facility] 18:03:00 18:03:00 Call r Specialties ac2-4d38-8 l Needed 344-45107a Mi nn ab8ffc 2015-02-01 2015-02-01 Return nullFlavo Knippa 07b6d 6dc-0 [facility] 18:03:00 18:03:00 Call r Specialties 7o4-4mj3-7 l Needed e0g-9wk707 Mi nn 01c9e9 2015-02-01 2015-02-01 Return nullFlavo Knippa e03a2 27d-b [facility] 18:03:00 18:03:00 Call r Specialties e21-6862-6 l Needed g16-phv92h Mi nn dd38e3 2015-02-01 2015-02-01 Return nullFlavo Knippa eb38f 205-3 [facility] 18:03:00 18:03:00 Call r Specialties 84d-46b2-8 l Needed 207-3211e6 Mi nn usu839 2015-02-01 2015-02-01 Return nullFlavo Knippa 4be53 439-2 [facility] 18:03:00 18:03:00 Call r Specialties 77c-402a-9 l Needed ce0-921d33 Mi nn 0c36f4 2015-02-01 2015-02-01 Return nullFlavo Knippa fef1a ee0-d [facility] 18:03:00 18:03:00 Call r Specialties 8q9-8d59-m l Needed 69f-ac1c0c Mi nn a9i608 2015-02-01 2015-02-01 Return nullFlavo Knippa 17d9f 97b-f [facility] 18:03:00 18:03:00 Call r Specialties 9w6-637a-9 l Needed be1-c1cbd2 [facility] nn 9t5350 2015-02-01 2015-02-01 Return nullFlavo Knippa 2d915 0fa-4 [facility] 18:03:00 18:03:00 Call r Specialties 9ac-4a8c-8 l Needed 04b-b0deb6 [facility] nn 825c65 2015-02-01 2015-02-01 Return nullFlavo Knippa e3fc8 94b-f [facility] 18:03:00 18:03:00 Call r Specialties 6cb-419f-a l Needed 9ca-313689 [facility] nn b072b3 2015-02-01 2015-02-01 Return nullFlavo Knippa 66b7d 291-4 [facility] 18:03:00 18:03:00 Call r Specialties 307-48bd-8 l Needed 365-cff68b Mi nn 300b3a 2015-02-01 2015-02-01 Return nullFlavo Knippa 23d0e c93-0 [facility] 18:03:00 18:03:00 Call r Specialties o2j-2571-2 l Needed 1f8-9w75rb Mi nn 6fce11 2015-02-01 2015-02-01 Return nullFlavo Knippa ce11b 2bc-3 [facility] 18:03:00 18:03:00 Call r Specialties p24-1upy-4 l Needed aff-3804f5 [facility] 89e4f4 2015-02-01 2015-02-01 Return nullFlavo Knippa d9b8c 7b7-5 [facility] 18:03:00 18:03:00 Call r Specialties 82e-4a4c-9 l Needed 230-u18647 [facility] e26d5e 2015-02-01 2015-02-01 Return nullFlavo Knippa 226f9 504-c [facility] 18:03:00 18:03:00 Call r Specialties o03-4115-y l Needed da1-41e59b [facility] f3ba3a 2015-02-01 2015-02-01 Return nullFlavo Knippa a2c88 a26-3 [facility] 18:03:00 18:03:00 Call r Specialties af0-44af-8 l Needed 4g9-1z3b44 [facility] 39c33a 2015-01-21 2015-01-21 Needs call nullFlavo Knippa 52 8sl379-7 [facility] 21:11:00 21:11:00 back from r Specialties dc4-447e -a Medical 84f-0s154d [facility] nn Staff 52a1c2 2015-01-21 2015-01-21 Needs call nullFlavo Knippa 88 303321-1 [facility] 21:11:00 21:11:00 back from r Specialties 1c6-95i1 -8 Medical 970-7bb0f6 [facility] nn Staff 72a2f5 2015-01-21 2015-01-21 Needs call nullFlavo Knippa 72 rtkj70-9 [facility] 21:11:00 21:11:00 back from r Specialties 3ae-4ff8 -9 Medical 5l6-05u594 [facility] Staff 569c50 2015-01-21 2015-01-21 Needs call nullFlavo Knippa 2f 9nv799-1 [facility] 21:11:00 21:11:00 back from r Specialties 3o9-6215 -8 Medical cd1-f9m667 [facility] Staff 714f89 2015-01-21 2015-01-21 Needs call nullFlavo Knippa fd objt04-8 [facility] 21:11:00 21:11:00 back from r Specialties 0v4-2qta -a [facility] 52a-32af73 [facility] nn Staff 7eefa2 2015-01-21 2015-01-21 Needs call nullFlavo Knippa bf 8q842c-x [facility] 21:11:00 21:11:00 back from r Specialties z71-7767 -9 [facility] k94-90n98j [facility] nn Staff d876ed 2015-01-21 2015-01-21 Needs call nullFlavo Knippa 8a 7c9zbp-o [facility] 21:11:00 21:11:00 back from r Specialties 48b-43d3 -a [facility] w30-uhvd2p [facility] nn Staff 4i0830 2015-01-21 2015-01-21 Needs call nullFlavo Knippa f7 725k05-6 [facility] 21:11:00 21:11:00 back from r Specialties m99-2j43 -8 [facility] 168-o4656r [facility] nn Staff 320c6a 2015-01-21 2015-01-21 Needs call nullFlavo Knippa cd n232po-3 [facility] 21:11:00 21:11:00 back from r Specialties 0o8-789t -9 [facility] a05-kvx84f [facility] nn Staff 0iy954 2015-01-21 2015-01-21 Needs call nullFlavo Knippa ad 6x5756-v [facility] 21:11:00 21:11:00 back from r Specialties 2b6-0794 -9 [facility] 7m1-npge92 [facility] nn Staff 3a2a0b 2015-01-21 2015-01-21 Needs call nullFlavo Knippa 5a 52sy65-y [facility] 21:11:00 21:11:00 back from Specialties 857-4c18 -9 [facility] amanuel-587574 [facility] nn Staff 023fe1 2015-01-21 2015-01-21 Needs call nullFlavo Knippa 18 xex774-0 [facility] 21:11:00 21:11:00 back from Specialties d7r-0273 -b [facility] x4m-74278z [facility] nn Staff dc51e4 2015-01-21 2015-01-21 Needs call nullFlavo Knippa e3 69w5c3-f [facility] 21:11:00 21:11:00 back from Specialties bf6-4705 -b [facility] 382-s3a691 [facility] Staff 3c1384 2015-01-21 2015-01-21 Needs call nullFlavo Knippa 11 538bce-a [facility] 21:11:00 21:11:00 back from [facility] l88-82ah -b [facility] 81f-o23180 [facility] nn Staff e97ab4 2015-01-21 2015-01-21 Needs call nullFlavo Knippa 52 2x8475-6 [facility] 21:11:00 21:11:00 back from [facility] k58-4565 -8 [facility] 2l6-51g1o6 [facility] Staff f0eb31 2015-01-21 2015-01-21 Needs call nullFlavo Knippa 61 z03t1c-4 [facility] 21:11:00 21:11:00 back from [facility] 434-409d -a [facility] ccc-45p721 [facility] nn Staff f103a2 2015-01-21 2015-01-21 Needs call nullFlavo Knippa 43 t5489x-f [facility] 21:11:00 21:11:00 back from [facility] 17f-4314 -9 [facility] 2fa-md6986 [facility] nn Staff 27e2ae 2015-01-21 2015-01-21 Needs call nullFlavo Knippa 86 224beb-a [facility] 21:11:00 21:11:00 back from [facility] 689-4182 -8 [facility] ca6-4e15a0 [facility] nn Staff 3ba11f 2015-01-21 2015-01-21 Needs call nullFlavo Knippa e7 5477ca-7 [facility] 20:11:00 20:11:00 back from [facility] 0b7-6n7y -a [facility] 116-68a4b4 [facility] Staff 539e7d 2015-01-21 2015-01-21 Needs call nullFlavo Knippa 38 9191f3-1 [facility] 20:11:00 20:11:00 back from [facility] w72-28hx -9 [facility] 487-4efa55 [facility] Staff 023702 0404-11-30 2015-01-21 Needs call nullFlavo Knippa 5e 8960r0-8 [facility] 20:11:00 20:11:00 back from [facility] 089-4be3 -9 [facility] v0f-n3sk9c [facility] Staff ec2d0e 2015-01-21 2015-01-21 Needs call nullFlavo Knippa ac 225915-x [facility] 20:11:00 20:11:00 back from [facility] z17-9i4n -8 [facility] 3v2-na70sy [facility] nn Staff 7755b5 2015-01-21 2015-01-21 Needs call nullFlavo Knippa 3b bhs138-1 [facility] 20:11:00 20:11:00 back from [facility] 109-4c9d -b [facility] 8k5-615481 [facility] Staff a76c5f 2015-01-21 2015-01-21 Needs call nullFlavo Knippa 54 6ea346-0 [facility] 20:11:00 20:11:00 back from [facility] 0e0-63mh -b [facility] 6cc-7bf1d3 [facility] nn Staff i86155 2015-01-21 2015-01-21 Needs call nullFlavo Knippa e6 vl0em7-i [facility] 20:11:00 20:11:00 back from [facility] ff7-47d6 -8 [facility] 2s2-93z765 [facility] nn Staff 26c7fb 2015-01-21 2015-01-21 Needs call nullFlavo Knippa 82 01q64h-5 [facility] 20:11:00 20:11:00 back from [facility] ef1-466e -a [facility] v91-v2uy22 [facility] nn Staff kd687c 2015-01-21 2015-01-21 Needs call nullFlavo Knippa 6a m7rf82-5 [facility] 20:11:00 20:11:00 back from [facility] j47-626k -8 [facility] [id number] [facility] Staff b64e36 2015-01-21 2015-01-21 Needs call nullFlavo Knippa f3 tzn490-7 [facility] 20:11:00 20:11:00 back from [facility] a9h-466h -b [facility] 39a-463d7e [facility] Staff 055c5c 2015-01-21 2015-01-21 Needs call nullFlavo Knippa d8 8s495x-d [facility] 20:11:00 20:11:00 back from [facility] 1fe-4e01 -8 [facility] ce4-90bcfd [facility] Staff e07cc2 2015-01-21 2015-01-21 Needs call nullFlavo Knippa 9b 590s33-s [facility] 20:11:00 20:11:00 back from [facility] 784-454f -8 [facility] x5m-4q3436 [facility] nn Staff 2t4711 2015-01-21 2015-01-21 Needs call nullFlavo Knippa 30 dt80q3-6 [facility] 20:11:00 20:11:00 back from [facility] o61-5690 -b [facility] 971-3a8e1f [facility] Staff 29807w 2015-01-21 2015-01-21 Needs call nullFlavo Knippa 10 2le685-3 [facility] 20:11:00 20:11:00 back from [facility] 84f-45ba -9 [facility] 825-1z3570 [facility] nn Staff 0995ed 2015-01-21 2015-01-21 Needs call nullFlavo Knippa 9a 30622d-v [facility] 20:11:00 20:11:00 back from [facility] 743-4e40 -9 [facility] ad1-67da9b [facility] Staff [id number] 2015-01-21 2015-01-21 Needs call nullFlavo Knippa 6f 1642w3-o [facility] 20:11:00 20:11:00 back from [facility] 438-445e -b [facility] 5ff-c917b3 [facility] nn Staff 5afe70 2015-01-21 2015-01-21 Needs call nullFlavo Knippa f4 p77322-3 [facility] 20:11:00 20:11:00 back from [facility] 6da-47ba -b [facility] z31-v9id04 [facility] Staff 4b3d52 2015-01-21 2015-01-21 Needs call nullFlavo Knippa e9 7rsj50-1 [facility] 20:11:00 20:11:00 back from [facility] 6j8-5113 -b [facility] 42a-97275k [facility] Staff 206ea0 2015-01-21 2015-01-21 Needs call nullFlavo Knippa 15 78pul6-c [facility] 20:11:00 20:11:00 back from [facility] d1u-5u38 -9 [facility] 5af-ku3374 [facility] Staff dda8ed 2015-01-21 2015-01-21 Needs call nullFlavo Knippa 97 53f92a-2 [facility] 20:11:00 20:11:00 back from r Specialties o05-28fu -8 l [facility] 52d-55cdc8 [facility] Staff 13ab4c 2014-12-28 2014-12-28 Alternativ nullFlavo Knippa fb a4fe50-4 [facility] 16:09:00 16:09:00 e Insulin r Specialties 7u9-0506 -b l ce8-238ee6 [facility] 91ff49 2014-12-28 2014-12-28 Alternativ nullFlavo Knippa fe 086j02-e [facility] 16:09:00 16:09:00 e Insulin r Specialties bda-40d7 -a l 88d-4974b9 [facility] 3a21f9 2014-12-28 2014-12-28 Alternativ nullFlavo Knippa 36 943716-a [facility] 16:09:00 16:09:00 e Insulin r Specialties 2a1-86r8 -9 l 853-0266c6 [facility] 623ca4 2014-12-28 2014-12-28 Alternativ nullFlavo Knippa 6a 2236dd-9 [facility] 16:09:00 16:09:00 e Insulin r Specialties 33c-45d5 -b l g88-i22od5 [facility] 856277 1028-11-06 2014-12-28 Alternativ nullFlavo Knippa 93 1h6781-e [facility] 16:09:00 16:09:00 e Insulin r Specialties b83-7662 -9 l n19-17o2o0 [facility] 957514 5458-11-06 2014-12-28 Alternativ nullFlavo Knippa 2a 135309-0 [facility] 16:09:00 16:09:00 e Insulin r Specialties q15-6g28 -b l a28-9jtt09 [facility] 84897u 2014-12-28 2014-12-28 Alternativ nullFlavo Knippa b1 543481-m [facility] 16:09:00 16:09:00 e Insulin r Specialties 0bf-499e -9 l ee4-ec6a7f [facility] 8310a8 2014-12-28 2014-12-28 Alternativ nullFlavo Knippa f2 774w43-l [facility] 16:09:00 16:09:00 e Insulin r Specialties 78f-446e -b l 3x5-h908e7 Mi nn 2fc7f3 2014-12-28 2014-12-28 Alternativ nullFlavo Knippa 14 z9608c-6 [facility] 16:09:00 16:09:00 e Insulin r Specialties dda-47dc -b l s7f-n5snka Mi nn c8f9b2 2014-12-28 2014-12-28 Alternativ nullFlavo Knippa a3 9h011e-5 [facility] 16:09:00 16:09:00 e Insulin r Specialties 8l4-4d87 -a l 2cb-5c4db5 Mi nn e307b5 2014-12-28 2014-12-28 Alternativ nullFlavo Knippa bc 3f0292-2 [facility] 16:09:00 16:09:00 e Insulin r Specialties 6p0-80i1 -9 l 5v5-4237ny Mi nn 16x960 2014-12-28 2014-12-28 Alternativ nullFlavo Knippa 31 5tdu72-r [facility] 16:09:00 16:09:00 e Insulin r Specialties aae-4197 -b l ab5-092e38 Mi nn b4e93c 2014-12-28 2014-12-28 Alternativ nullFlavo Knippa 0d 245039-1 [facility] 16:09:00 16:09:00 e Insulin r Specialties 91b-4b8b -b l 20e-4272bc Mi nn c68bca 2014-12-28 2014-12-28 Alternativ nullFlavo Knippa 3f 365b52-9 [facility] 16:09:00 16:09:00 e Insulin r Specialties j91-488f -9 l i11-68v796 Mi nn 12f95e 2014-12-28 2014-12-28 Alternativ nullFlavo Knippa de g1g1l4-y [facility] 16:09:00 16:09:00 e Insulin r Specialties 9ed-4804 -b l 0t9-n5r38p Mi nn 8b21db 2014-12-28 2014-12-28 Alternativ nullFlavo Knippa b3 4b75v8-l [facility] 16:09:00 16:09:00 e Insulin r Specialties 512-4f46 -b l 325-6fbfe2 Mi nn e964e8 2014-12-28 2014-12-28 Alternativ nullFlavo Knippa 05 696x86-s [facility] 16:09:00 16:09:00 e Insulin r Specialties 960-42ae -a l 2g0-fd122j Mi nn 7b8b50 2014-12-28 2014-12-28 Alternativ nullFlavo Knippa 70 88q21b-g [facility] 16:09:00 16:09:00 e Insulin r Specialties z9n-3t5f -a l 36a-33eab4 Mi nn 545dbe 2014-12-28 2014-12-28 Alternativ nullFlavo Knippa 4a vw3540-4 [facility] 16:09:00 16:09:00 e Insulin r Specialties 230-4b56 -a l s49-e4t214 Mi nn b61d9c 2014-12-28 2014-12-28 Alternativ nullFlavo Knippa 55 xcj6p9-7 [facility] 15:09:00 15:09:00 e Insulin r Specialties g23-7rsa -8 l 442-pg3237 Mi nn 80da43 2014-12-28 2014-12-28 Alternativ nullFlavo Knippa ad 278n48-2 [facility] 15:09:00 15:09:00 e Insulin r Specialties o28-70r1 -8 l m0s-6892i8 Mi nn e7cc8a 2014-12-28 2014-12-28 Alternativ nullFlavo Knippa 23 cq671a-7 [facility] 15:09:00 15:09:00 e Insulin r Specialties 80f-44b9 -9 l v21-cwy1y5 Mi nn 935fc1 2014-12-28 2014-12-28 Alternativ nullFlavo Knippa 1a s1b89k-e [facility] 15:09:00 15:09:00 e Insulin r Specialties 322-4494 -8 l cea-b81b06 Mi nn 4395c1 2014-12-28 2014-12-28 Alternativ nullFlavo Knippa dd 75sl91-m [facility] 15:09:00 15:09:00 e Insulin r Specialties 2d5-6282 -a l 72d-a11eae Mi nn 033e95 2014-12-28 2014-12-28 Alternativ nullFlavo Knippa 30 n369wv-7 [facility] 15:09:00 15:09:00 e Insulin r Specialties ae6-4aeb -b l 63e-931c4f Mi nn 21bfe3 2014-12-28 2014-12-28 Alternativ nullFlavo Knippa 2c 8jdk75-4 [facility] 15:09:00 15:09:00 e Insulin r Specialties 4ed-4e35 -b l cbd-9073eb Mi nn 6cce31 2014-12-28 2014-12-28 Alternativ nullFlavo Knippa 45 1h4c7f-1 [facility] 15:09:00 15:09:00 e Insulin r Specialties 605-4bc5 -b l 0r6-7iy7qc Mi nn 3f2feb 2014-12-28 2014-12-28 Alternativ nullFlavo Knippa 9c 5q8732-w [facility] 15:09:00 15:09:00 e Insulin r Specialties 3aa-40e6 -8 l 2bc-6a7e32 Mi nn f79f7c 2014-12-28 2014-12-28 Alternativ nullFlavo Knippa 08 49t5ft-y [facility] 15:09:00 15:09:00 e Insulin r Specialties u31-8d4h -8 l 108-a4e8bc Mi nn 9e5c5e 2014-12-28 2014-12-28 Alternativ nullFlavo Knippa e0 u68058-e [facility] 15:09:00 15:09:00 e Insulin r Specialties 23d-4ca9 -8 l w36-385868 Mi nn 80n440 2014-12-28 2014-12-28 Alternativ nullFlavo Knippa 81 x702l0-0 [facility] 15:09:00 15:09:00 e Insulin r Specialties 04b-45ec -b l 700-9b6e3b Mi nn 7ab44d 2014-12-28 2014-12-28 Alternativ nullFlavo Knippa 91 409s94-6 [facility] 15:09:00 15:09:00 e Insulin r Specialties 857-4344 -b l a56-936763 [facility] nn 4c0268 2014-12-28 2014-12-28 Alternativ nullFlavo Knippa 29 y9p15i-1 [facility] 15:09:00 15:09:00 e Insulin r Specialties 012-4259 -b l 27b-7t0445 [facility] nn 8dbc3a 2014-12-28 2014-12-28 Alternativ nullFlavo Knippa 90 89e93j-j [facility] 15:09:00 15:09:00 e Insulin r Specialties 993-43ba -a l a14-08y243 [facility] nn bf71ec 2014-12-28 2014-12-28 Alternativ nullFlavo Knippa c0 578639-8 [facility] 15:09:00 15:09:00 e Insulin r Specialties 5o7-0b50 -a l cc9-08e5de [facility] nn c75359 2014-12-28 2014-12-28 Alternativ nullFlavo Knippa 41 60c963-1 [facility] 15:09:00 15:09:00 e Insulin r Specialties 766-41a0 -8 l o8k-6b6q62 [facility] nn d21c18 2014-12-28 2014-12-28 Alternativ nullFlavo Knippa d0 xu6mg4-m [facility] 15:09:00 15:09:00 e Insulin r Specialties b65-609w -a l 785-49w781 [facility] nn 093260 1328-11-06 2014-12-28 Alternativ nullFlavo Knippa 3e bm59i8-5 [facility] 15:09:00 15:09:00 e Insulin r Specialties 262-4733 -8 l h39-sh59n9 [facility] nn 86631l 2014-12-28 2014-12-28 Alternativ nullFlavo Knippa 3b i72048-2 [facility] 15:09:00 15:09:00 e Insulin r Specialties b6j-0vik -8 l i80-1402n8 [facility] nn 8t6400 2014-12-28 2014-12-28 Test nullFlavo Knippa 48d85 e4a-2 [facility] 00:53:00 00:53:00 results r Specialties 885-40c1-b l 40c-444d5c [facility] nn ebad73 2014-12-28 2014-12-28 Test nullFlavo Knippa e8acf 895-4 [facility] 00:53:00 00:53:00 results r Specialties 199-452b-9 l 1db-ey199h [facility] nn 97s681 2014-12-28 2014-12-28 Test nullFlavo Knippa cd861 43b-6 [facility] 00:53:00 00:53:00 results r Specialties 786-4a18-9 l m52-1f9xry [facility] nn 3ee2e6 2014-12-28 2014-12-28 Test nullFlavo Knippa 43793 333-5 [facility] 00:53:00 00:53:00 results r Specialties cd4-4326-a l 16a-nj3339 [facility] nn 99345e 2014-12-28 2014-12-28 Test nullFlavo Knippa 5d784 3b4-0 [facility] 00:53:00 00:53:00 results r Specialties 5n8-71dq-8 l 9u0-2083y4 [facility] nn e17b05 2014-12-28 2014-12-28 Test nullFlavo Knippa 6c06d e50-d [facility] 00:53:00 00:53:00 results r Specialties 090-4af2-a l 49f-b85d3a [facility] nn 0384d4 2014-12-28 2014-12-28 Test nullFlavo Knippa 8723b 165-9 [facility] 00:53:00 00:53:00 results r Specialties y94-9969-3 l 682-264b13 [facility] nn c153f3 2014-12-28 2014-12-28 Test nullFlavo Knippa 42766 3d7-5 [facility] 00:53:00 00:53:00 results r Specialties i34-2bc2-j l bb0-xn3911 [facility] nn 0659a2 2014-12-28 2014-12-28 Test nullFlavo Knippa 49ef5 6e2-3 [facility] 00:53:00 00:53:00 results r Specialties 802-4db7-9 l f67-hs8fhj [facility] nn 1e11b2 2014-12-28 2014-12-28 Test nullFlavo Knippa d9cf6 2fa-8 [facility] 00:53:00 00:53:00 results r Specialties 9bd-4aa1-9 l 8ad-k0837e [facility] nn 18a7e0 2014-12-28 2014-12-28 Test nullFlavo Knippa 438be 7e2-3 [facility] 00:53:00 00:53:00 results r Specialties dc0-44b4-a l dd1-w17857 [facility] nn 3191b2 2014-12-28 2014-12-28 Test nullFlavo Knippa ba03e 59e-e [facility] 00:53:00 00:53:00 results r Specialties 914-4786-9 l 687-fafa8f [facility] nn c4e39b 2014-12-28 2014-12-28 Test nullFlavo Knippa 334df 32c-8 [facility] 00:53:00 00:53:00 results r Specialties 02c-494f-b l 6fb-12853h [facility] nn 055216 0439-11-06 2014-12-28 Test nullFlavo Knippa 74057 287-1 [facility] 00:53:00 00:53:00 results r Specialties e39-0654-z l r13-46hvlf [facility] nn 5fc60b 2014-12-28 2014-12-28 Test nullFlavo Knippa 0d4dc a72-a [facility] 00:53:00 00:53:00 results r Specialties 90a-4cd7-8 l 7c8-5854l5 [facility] nn 7u2670 2014-12-28 2014-12-28 Test nullFlavo Knippa 1a893 e17-c [facility] 00:53:00 00:53:00 results r Specialties be3-4831-9 l 1i5-7944b6 [facility] nn 457a36 2014-12-28 2014-12-28 Test nullFlavo Knippa 6de0c f71-f [facility] 00:53:00 00:53:00 results r Specialties 301-411d-9 l z74-c104sa [facility] nn 9b5c1d 2014-12-28 2014-12-28 Test nullFlavo Knippa 10e02 12f-6 [facility] 00:53:00 00:53:00 results r Specialties b32-6661-x l 00c-fa15ee [facility] nn 216b96 2014-12-28 2014-12-28 Test nullFlavo Knippa b6478 6b8-e [facility] 00:53:00 00:53:00 results r Specialties r80-1om0-0 l 96f-7d5c9b Mi nn 48695x 2014-12-28 2014-12-28 Test nullFlavo Knippa 72384 597-c [facility] 00:53:00 00:53:00 results r Specialties 722-415b-8 l 903-265142 Mi nn 9g5803 2014-12-28 2014-12-28 Test nullFlavo Knippa 9b37f 99f-c [facility] 00:53:00 00:53:00 results r Specialties 7h0-24g4-w l 02b-89aea1 Mi nn cd00c0 2014-12-27 2014-12-27 Test nullFlavo Knippa 6f502 ff3-4 [facility] 23:53:00 23:53:00 results r Specialties 762-4158-9 l 00f-6e17d7 Mi nn b9c5ce 2014-12-27 2014-12-27 Test nullFlavo Knippa 8f0f2 b4a-7 [facility] 23:53:00 23:53:00 results r Specialties 3ef-4238-9 l ab4-249a9c Mi nn d53b25 2014-12-27 2014-12-27 Test nullFlavo Knippa 4bb32 13b-c [facility] 23:53:00 23:53:00 results r Specialties 97f-44da-a l 91b-d98652 Mi nn 460e30 2014-12-27 2014-12-27 Test nullFlavo Knippa 74d70 4d2-6 [facility] 23:53:00 23:53:00 results r Specialties 762-4f0c-a l v73-mx7j15 Mi nn 6m4463 2014-12-27 2014-12-27 Test nullFlavo Knippa 2636a 742-a [facility] 23:53:00 23:53:00 results r Specialties 046-4b49-b l 2aa-1de03a Mi nn ab6ded 2014-12-27 2014-12-27 Test nullFlavo Knippa ba458 529-9 [facility] 23:53:00 23:53:00 results r Specialties x8p-1466-5 l 110-408ffb Mi nn cc1e69 2014-12-27 2014-12-27 Test nullFlavo Knippa 4670e 02d-0 [facility] 23:53:00 23:53:00 results r Specialties 490-4136-9 l 8bf-28cf8d Mi nn 7d6e4f 2014-12-27 2014-12-27 Test nullFlavo Knippa efac4 56f-0 [facility] 23:53:00 23:53:00 results r Specialties f3e-59b8-o l ac1-4247ce Mi nn v54789 2014-12-27 2014-12-27 Test nullFlavo Knippa d90c1 f34-2 [facility] 23:53:00 23:53:00 results r Specialties c36-378i-1 l 721-4l0910 Mi nn 25a97d 2014-12-27 2014-12-27 Test nullFlavo Knippa 416b2 a00-1 [facility] 23:53:00 23:53:00 results r Specialties 082-4d7c-8 l 33d-7t5100 Mi nn 0a5eab 2014-12-27 2014-12-27 Test nullFlavo [facility] 53d19 e69-7 [facility] 23:53:00 23:53:00 results r Specialties 949-4212-9 l e76-11501i Mi nn 73f105 2014-12-27 2014-12-27 Test nullFlavo [facility] 59ff2 f22-b [facility] 23:53:00 23:53:00 results r Specialties 1r8-2565-2 l 88e-e108a5 [facility] nn f51950 2014-12-27 2014-12-27 Test nullFlavo [facility] 90dfe 545-2 [facility] 23:53:00 23:53:00 results r Specialties 63b-4e72-a l 2p3-558944 Mi nn g5727w 2014-12-27 2014-12-27 Test nullFlavo [facility] 0d787 4c7-d [facility] 23:53:00 23:53:00 results r Specialties i99-7y1w-5 l 60d-57454e Mi nn 670090 0820-11-05 2014-12-27 Test nullFlavo [facility] 73aef 69f-8 [facility] 23:53:00 23:53:00 results r Specialties 103-4b1e-b l 0ec-94ab79 Mi nn 251eeb 2014-12-27 2014-12-27 Test nullFlavo [facility] 7bbca abb-e [facility] 23:53:00 23:53:00 results r Specialties bf0-4736-9 l f64-ffq91h Mi nn 109fe3 2014-12-27 2014-12-27 Test nullFlavo [facility] 32850 9a2-e [facility] 23:53:00 23:53:00 results r Specialties cc4-4fb6-b l 843-v6835h Mi nn 392df9 2014-12-27 2014-12-27 Test nullFlavo [facility] 2c126 35d-b [facility] 23:53:00 23:53:00 results r Specialties 16b-4987-b l cc5-t8b213 Mi nn 1d1c77 2014-12-27 2014-12-27 Test nullFlavo [facility] 65c6a 42a-a [facility] 23:53:00 23:53:00 results r Specialties da4-4d4d-a l 1ea-6c52bb Mi nn c8e6b7 2014-12-27 2014-12-27 Test nullFlavo [facility] 117eb c97-3 [facility] 23:53:00 23:53:00 results r Specialties 032-4aab-8 l daf-4d488t Mi nn 47z976 2014-12-27 2014-12-27 2wk f/u nullFlavo [facility] 0caa0 0a3-e [facility] 20:30:00 20:30:00 r Specialties 742-4bcd-8 l 3c2-6873f1 Mi nn 9d89dc 2014-12-27 2014-12-27 2wk f/u nullFlavo [facility] 50c78 5e5-6 [facility] 20:30:00 20:30:00 r Specialties 415-4c11-8 l 851-473be0 Mi nn abcfd1 2014-12-27 2014-12-27 2wk f/u nullFlavo [facility] 4c8c8 723-f [facility] 20:30:00 20:30:00 r Specialties j31-45pe-7 l k3e-71r25s Mi nn edf15f 2014-12-27 2014-12-27 2wk f/u nullFlavo [facility] a0b74 11d-3 [facility] 20:30:00 20:30:00 r Specialties 0k5-6w2p-2 l 6w7-1k2eys Mi nn b3cd67 2014-12-27 2014-12-27 2wk f/u nullFlavo [facility] e8332 111-2 [facility] 20:30:00 20:30:00 r Specialties 62c-42d0-b l u54-js85x3 Mi nn 949b31 2014-12-27 2014-12-27 2wk f/u nullFlavo [facility] a6de5 f69-b [facility] 20:30:00 20:30:00 r Specialties fbf-4c1c-8 l 8n3-40xl1v Mi nn d10acc 2014-12-27 2014-12-27 2wk f/u nullFlavo [facility] 48a49 46a-a [facility] 20:30:00 20:30:00 r Specialties 583-440e-8 l 6a3-60i953 Mi nn 78dad1 2014-12-27 2014-12-27 2wk f/u nullFlavo [facility] f63f5 bdf-8 [facility] 20:30:00 20:30:00 r Specialties r5s-3z8m-b l 241-64cf05 Mi nn 2d0b4d 2014-12-27 2014-12-27 2wk f/u nullFlavo [facility] 233b2 c19-8 [facility] 20:30:00 20:30:00 r Specialties 29b-42e4-b l cac-8956c6 Mi nn 8b50f3 2014-12-27 2014-12-27 2wk f/u nullFlavo [facility] a653d dcb-8 [facility] 20:30:00 20:30:00 r Specialties df9-43a7-9 l ff3-49039p Mi nn 58z383 2014-12-27 2014-12-27 2wk f/u nullFlavo [facility] 42855 890-c [facility] 20:30:00 20:30:00 r Specialties 014-466d-b l 6y9-46147t Mi nn d2d4a2 2014-12-27 2014-12-27 2wk f/u nullFlavo [facility] ecbcc 33a-6 [facility] 20:30:00 20:30:00 r Specialties n67-8q4i-1 l 023-buk694 Mi nn 4e9fb8 2014-12-27 2014-12-27 2wk f/u nullFlavo [facility] 33fff 106-7 [facility] 20:30:00 20:30:00 r Specialties u03-1e9k-6 l 70b-22f3cb Mi nn a4be2b 2014-12-27 2014-12-27 2wk f/u nullFlavo [facility] 9cc11 027-c [facility] 20:30:00 20:30:00 r Specialties 6i7-8085-1 l 838-0154e5 Mi nn 346822 0653-11-05 2014-12-27 2wk f/u nullFlavo [facility] ce186 cfc-4 [facility] 20:30:00 20:30:00 r Specialties bf1-4d47-a l 60c-daeb7b Mi nn ae1625 2014-12-27 2014-12-27 2wk f/u nullFlavo [facility] b1d91 fa1-0 [facility] 20:30:00 20:30:00 r Specialties 083-4118-8 l 6t3-1h2tr0 Mi nn l7v076 2014-12-27 2014-12-27 2wk f/u nullFlavo [facility] e33eb e51-7 [facility] 20:30:00 20:30:00 r Specialties f07-04ua-4 l 8ae-6p292m Mi nn 0a85e1 2014-12-27 2014-12-27 2wk f/u nullFlavo [facility] 551fc f53-9 [facility] 20:30:00 20:30:00 r Specialties 9f2-6612-9 l 92b-2q8522 Mi nn 0abd35 2014-12-27 2014-12-27 2wk f/u nullFlavo [facility] 0df06 8f1-7 [facility] 20:30:00 20:30:00 r Specialties v4p-4yy6-y l 213-617f37 Mi nn fbe9b8 2014-12-27 2014-12-27 2wk f/u nullFlavo [facility] 4b11f b30-b [facility] 20:30:00 20:30:00 r Specialties 9l2-18k8-4 l kizzy-580ade Mi nn 1e8edc 2014-12-27 2014-12-27 2wk f/u nullFlavo [facility] 282ca 592-e [facility] 20:30:00 20:30:00 r Specialties 367-4949-b l 36a-5d4928 Mi nn 546975 2916-11-05 2014-12-27 2wk f/u nullFlavo [facility] bfbea aae-7 [facility] 20:30:00 20:30:00 r Specialties 863-4936-8 l acd-7c8961 Mi nn edb47d 2014-12-27 2014-12-27 2wk f/u nullFlavo [facility] 420e5 133-e [facility] 20:30:00 20:30:00 r Specialties 203-4063-9 l 6cf-adcc35 Mi nn 9cfab7 2014-12-27 2014-12-27 2wk f/u nullFlavo [facility] 485cb d48-6 [facility] 19:30:00 19:30:00 r Specialties f47-2x4m-1 l be4-75e45b Mi nn 9aff20 2014-12-27 2014-12-27 2wk f/u nullFlavo [facility] 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 [facility] 19:30:00 19:30:00 r Specialties 8c3-00wl-1 l 166-6e7ca3 Mi nn 8446c3 2014-12-27 2014-12-27 2wk f/u nullFlavo [facility] a2c13 7c4-1 [facility] 19:30:00 19:30:00 r Specialties 6fa-4874-a l fef-536c90 Mi nn 23e9c7 2014-12-27 2014-12-27 2wk f/u nullFlavo [facility] dcbeb 594-8 [facility] 19:30:00 19:30:00 r Specialties 916-4c89-8 l 8ab-92fd51 Mi nn 531509 5784-11-05 2014-12-27 2wk f/u nullFlavo [facility] c46bb b5b-3 [facility] 19:30:00 19:30:00 r Specialties b49-769u-w l bd1-3d65ae Mi nn babc82 2014-12-27 2014-12-27 2wk f/u nullFlavo [facility] 251ab bdf-6 [facility] 19:30:00 19:30:00 r Specialties 7w4-160y-j l i79-r9h8q3 Mi nn 190f1f 2014-12-27 2014-12-27 2wk f/u nullFlavo [facility] 30dfa 14b-d [facility] 19:30:00 19:30:00 r Specialties 423-42d5-b l 322-f4aa09 Mi nn 3c4e04 2014-12-27 2014-12-27 2wk f/u nullFlavo [facility] 3f179 b27-0 [facility] 19:30:00 19:30:00 r Specialties 4dd-40dd-b l 59a-702763 [facility] nn 7c21c4 2014-12-27 2014-12-27 2wk f/u nullFlavo [facility] b0151 fc0-a [facility] 19:30:00 19:30:00 r Specialties 765-4c01-a l 0w9-615pe7 Mi nn aa1af9 2014-12-27 2014-12-27 2wk f/u nullFlavo [facility] e24c8 449-4 [facility] 19:30:00 19:30:00 r Specialties 82b-4792-b l 4l0-886034 Mi nn oy070y 2014-12-27 2014-12-27 2wk f/u nullFlavo [facility] 9c797 055-b [facility] 19:30:00 19:30:00 r Specialties cf3-4a31-b l layboy operator-4e7f97 Mi nn 087445 2324-11-05 2014-12-27 2wk f/u nullFlavo [facility] 54ee8 3d1-7 [facility] 19:30:00 19:30:00 r Specialties 34c-48c5-b l 629-ed14e0 Mi nn 9e68ad 2014-12-27 2014-12-27 2wk f/u nullFlavo [facility] 1b080 48b-4 [facility] 19:30:00 19:30:00 r Specialties 612-4488-b l 2ce-236e54 Mi nn 9jm924 2014-12-27 2014-12-27 2wk f/u nullFlavo [facility] f42ee 216-b [facility] 19:30:00 19:30:00 r Specialties 861-495c-b l 997-2f1bde Mi nn u0b733 2014-12-27 2014-12-27 2wk f/u nullFlavo [facility] 9477f 014-7 [facility] 19:30:00 19:30:00 r Specialties x3f-3jf3-u l n32-n2054w Mi nn 3fad6e 2014-12-27 2014-12-27 2wk f/u nullFlavo [facility] b03ac 526-b [facility] 19:30:00 19:30:00 r Specialties 2da-445b-b l 7ad-5r0740 Mi nn 5pp301 2014-12-27 2014-12-27 2wk f/u nullFlavo [facility] 079c8 649-c [facility] 19:30:00 19:30:00 r Specialties w6o-5h29-2 l 39b-287d0e Mi nn 9i2990 2014-12-27 2014-12-27 2wk f/u nullFlavo [facility] a44f0 ed0-e [facility] 19:30:00 19:30:00 r Specialties w75-43x4-7 l 547-42d45a Mi nn 75fb4a 2014-12-27 2014-12-27 2wk f/u nullFlavo [facility] 633b4 erki-b [facility] 19:30:00 19:30:00 r Specialties 400-46aa-9 l 7f6-7s2t0x Mi nn 4wr115 2014-12-27 2014-12-27 2wk f/u nullFlavo [facility] e69c1 6bb-2 [facility] 19:30:00 19:30:00 r Specialties o65-17ym-d l 546-6f2aeb Mi nn 1062ba 2014-12-24 2014-12-24 lab order nullFlavo [facility] 2a0 65g92-8 [facility] 16:14:00 16:14:00 r Specialties 0fe-4d3b-b l 927-ad59ab Mi nn 1c08e0 2014-12-24 2014-12-24 lab order nullFlavo [facility]a 112 cth7z-3 [facility] 16:14:00 16:14:00 r Specialties 815-41a7-a l fd2-165a49 Mi nn 79531c 2014-12-24 2014-12-24 lab order nullFlavo [facility] fda 74b09-h [facility] 16:14:00 16:14:00 r Specialties fb7-4489-a l 845-34df20 Mi nn 681c67 2014-12-24 2014-12-24 lab order nullFlavo [facility]a 29a 678h7-5 [facility] 16:14:00 16:14:00 r Specialties g0p-16f0-q l f29-t9w335 Mi nn d5a0db 2014-12-24 2014-12-24 lab order nullFlavo [facility]a 091 8a53t-8 [facility] 16:14:00 16:14:00 r Specialties bce-4940-8 l 43d-fc2e5f Mi nn d1cc13 2014-12-24 2014-12-24 lab order nullFlavo [facility] b3d 8417f-5 [facility] 16:14:00 16:14:00 r Specialties 69c-4725-b l q92-8c4v69 Mi nn c18f4a 2014-12-24 2014-12-24 lab order nullFlavo [facility] 0c2 3ood4-8 [facility] 16:14:00 16:14:00 r Specialties 195-4467-8 l 004-a3d59d Mi nn by655n 2014-12-24 2014-12-24 lab order nullFlavo [facility] 7c5 53a63-0 [facility] 16:14:00 16:14:00 r Specialties 777-40c8-8 l z61-p90d30 Mi nn ba3e70 2014-12-24 2014-12-24 lab order nullFlavo [facility]a 824 o129u-0 [facility] 16:14:00 16:14:00 r Specialties fc7-4676-9 l 717-262e09 Mi nn 45191d 2014-12-24 2014-12-24 lab order nullFlavo [facility] ae3 479fc-2 [facility] 16:14:00 16:14:00 r Specialties 8ac-4b3c-8 l 024-l81448 Mi nn 312103 9059-11-02 2014-12-24 lab order nullFlavo [facility] c8f 2989f-c [facility] 16:14:00 16:14:00 r Specialties 70a-4d22-8 l 49c-e26f36 Mi nn q9c825 2014-12-24 2014-12-24 lab order nullFlavo [facility] ceb 8y1o5-7 [facility] 16:14:00 16:14:00 r Specialties 975-4a55-b l 457-ox972e Mi nn e17bba 2014-12-24 2014-12-24 lab order nullFlavo [facility]a 946 64057-7 [facility] 16:14:00 16:14:00 r Specialties 969-4ea6-b l 404-6edada Mi nn b751c4 2014-12-24 2014-12-24 lab order nullFlavo [facility]a d15 830aa-1 [facility] 16:14:00 16:14:00 r Specialties adb-4f49-b l 208-ee58c0 Mi nn 67697j 2014-12-24 2014-12-24 lab order nullFlavo [facility] c7a 1k585-y [facility] 16:14:00 16:14:00 r Specialties n37-6859-5 l 953-27241s Mi nn d335b1 2014-12-24 2014-12-24 lab order nullFlavo [facility] 16d 86116-9 [facility] 16:14:00 16:14:00 r Specialties 0r7-2785-p l l40-das08w Mi nn 5ea0cf 2014-12-24 2014-12-24 lab order nullFlavo [facility]a cf8 42467-0 [facility] 16:14:00 16:14:00 r Specialties m7f-6db9-2 l a7f-4wm881 Mi nn 82366i 2014-12-24 2014-12-24 lab order nullFlavo [facility] 8ab b65z7-r [facility] 16:14:00 16:14:00 r Specialties 3x5-0d74-c l 755-7a83ad Mi nn 91759n 2014-12-24 2014-12-24 lab order nullFlavo [facility] 3ec ry69k-0 [facility] 16:14:00 16:14:00 r Specialties bca-42c6-9 l 3h1-7y3v00 Mi nn e01b66 2014-12-24 2014-12-24 lab order nullFlavo [facility]a a65 57tx0-4 [facility] 16:14:00 16:14:00 r Specialties fa2-4bae-9 l 905-bfcb31 Mi nn f906cd 2014-12-24 2014-12-24 lab order nullFlavo [facility]a fd2 37ecc-5 [facility] 16:14:00 16:14:00 r Specialties fa8-42f7-b l i5j-624361 Mi nn l55808 2014-12-24 2014-12-24 lab order nullFlavo [facility]a 30b 5k5lp-c [facility] 16:14:00 16:14:00 r Specialties 62f-4a79-9 l 441-f49070 Mi nn d737a3 2014-12-24 2014-12-24 lab order nullFlavo [facility]a b6a 9xh68-b [facility] 16:14:00 16:14:00 r Specialties k1f-847t-9 l 458-df3e9f Mi nn q9422t 2014-12-24 2014-12-24 Abx nullFlavo [facility] 1b74a beb-5 [facility] 16:13:00 16:13:00 Questions r Specialties z10-400i -a l be1-cf8b4b Mi nn 28ab5c 2014-12-24 2014-12-24 Abx nullFlavo [facility]a 2702c e10-1 [facility] 16:13:00 16:13:00 Questions r Specialties 023-4a2e -a l bed-fb56a3 Mi nn 47d41c 2014-12-24 2014-12-24 Abx nullFlavo [facility] 5ae13 98c-8 [facility] 16:13:00 16:13:00 Questions r Specialties 939-4cea -a l h8r-ia6p6c Mi nn c68bd7 2014-12-24 2014-12-24 Abx nullFlavo [facility] e944d a20-5 [facility] 16:13:00 16:13:00 Questions r Specialties p75-1hx9 -9 l 8n8-5tq41r Mi nn 6wz989 2014-12-24 2014-12-24 Abx nullFlavo [facility] ab9af 91e-8 [facility] 16:13:00 16:13:00 Questions r Specialties 8df-451c -b l 98b-4ffeed Mi nn bac61e 2014-12-24 2014-12-24 Abx nullFlavo [facility]a 49a29 0d9-d [facility] 16:13:00 16:13:00 Questions r Specialties b1l-93av -8 l 4r0-10b3r5 Mi nn 449b08 2014-12-24 2014-12-24 Abx nullFlavo [facility] b36dc ba6-1 [facility] 16:13:00 16:13:00 Questions r Specialties k68-46vl -8 l af0-f363f8 Mi nn 335ecd 2014-12-24 2014-12-24 Abx nullFlavo [facility] 76f2b 093-f [facility] 16:13:00 16:13:00 Questions r Specialties ab5-400e -8 l 494-29840a Mi nn 74a8e1 2014-12-24 2014-12-24 Abx nullFlavo [facility] a9390 070-6 [facility] 16:13:00 16:13:00 Questions r Specialties 97c-4294 -9 l h55-526i3i Mi nn 4e654p 2014-12-24 2014-12-24 Abx nullFlavo [facility] b7e39 3d0-d [facility] 16:13:00 16:13:00 Questions r Specialties 336-4679 -9 l fda-22d136 Mi nn a8f21c 2014-12-24 2014-12-24 Abx nullFlavo [facility]a 40bdd 235-1 [facility] 16:13:00 16:13:00 Questions r Specialties 088-40f1 -a l be5-2c9596 Mi nn 5373eb 2014-12-24 2014-12-24 Abx nullFlavo [facility] b66db 3c6-6 [facility] 16:13:00 16:13:00 Questions r Specialties 2y6-641z -a l 7z5-9ny7zr Mi nn 1f70ad 2014-12-24 2014-12-24 Abx nullFlavo [facility]a 235ce e60-c [facility] 16:13:00 16:13:00 Questions r Specialties ff1-46ca -b l 7u4-4b89km Mi nn 660c36 2014-12-24 2014-12-24 Abx nullFlavo [facility]a e7716 31e-3 [facility] 16:13:00 16:13:00 Questions r Specialties 9m6-1911 -a l r56-cpw837 Mi nn 363b05 2014-12-24 2014-12-24 Abx nullFlavo [facility]a 6b71a 31e-4 [facility] 16:13:00 16:13:00 Questions r Specialties 289-4749 -9 l eb7-5bd12d Mi nn 634ed7 2014-12-24 2014-12-24 Abx nullFlavo [facility]a 99712 22f-a [facility] 16:13:00 16:13:00 Questions r Specialties o85-84b0 -b l 349-6eaae6 Mi nn 70ea95 2014-12-24 2014-12-24 Abx nullFlavo [facility]a 71ba9 3b5-7 [facility] 16:13:00 16:13:00 Questions r Specialties 85b-4a8e -8 l 6h4-14gu5e Mi nn b4fe3a 2014-12-24 2014-12-24 Abx nullFlavo [facility]a ef4ce 107-e [facility] 16:13:00 16:13:00 Questions r Specialties 441-44d6 -9 l 80b-ca9ae1 Mi nn 32af64 2014-12-24 2014-12-24 Abx nullFlavo [facility]a 3568f 204-6 [facility] 16:13:00 16:13:00 Questions r Specialties 082-419a -a l 4ea-o38373 Mi nn fa9a57 2014-12-24 2014-12-24 Abx nullFlavo [facility]a 9f3fe ef0-e [facility] 16:13:00 16:13:00 Questions r Specialties 8w6-991v -9 l w9z-79a1dd Mi nn 603722 6956-11-02 2014-12-24 Abx nullFlavo [facility]a d1970 7ef-3 [facility] 16:13:00 16:13:00 Questions r Specialties 7ef-4af2 -8 l e2v-ojbl29 Mi nn a4fd6e 2014-12-24 2014-12-24 Abx nullFlavo [facility]a 8c12d ceb-0 [facility] 16:13:00 16:13:00 Questions r Specialties fb7-4d3e -a l 383-50e2d5 Mi nn ddd66a 2014-12-24 2014-12-24 Abx nullFlavo [facility]a 70bc6 059-c [facility] 16:13:00 16:13:00 Questions r Specialties def-4da8 -a l 92a-b2cc67 Mi nn u6t363 2014-12-24 2014-12-24 lab order nullFlavo [facility]ippa 78b c6z39-y [facility] 15:14:00 15:14:00 r Specialties 115-4774-a l 914-9edf45 Mi nn 6lf962 2014-12-24 2014-12-24 lab order nullFlavo Knippa b61 u9v4h-2 [facility] 15:14:00 15:14:00 r Specialties g6h-6ur9-3 l 15f-5681f0 Mi nn 7b2f7f 2014-12-24 2014-12-24 lab order nullFlavo Knippa b38 59vh1-8 [facility] 15:14:00 15:14:00 r Specialties 329-42ef-a l 16c-e1cf43 Mi nn 27519s 2014-12-24 2014-12-24 lab order nullFlavo Knippa fdd 560l4-1 [facility] 15:14:00 15:14:00 r Specialties 6d0-8j77-1 l fd6-8c4695 Mi nn 4d04be 2014-12-24 2014-12-24 lab order nullFlavo [facility]ippa f92 hi375-x [facility] 15:14:00 15:14:00 r Specialties 438-4331-a l l4j-7x6v7j Mi nn z6505x 2014-12-24 2014-12-24 lab order nullFlavo [facility]ippa 0a0 yy882-o [facility] 15:14:00 15:14:00 r Specialties 810-4976-b l 8i7-eyv281 Mi nn 8f24c7 2014-12-24 2014-12-24 lab order nullFlavo [facility]ippa 7e2 6d3k4-6 [facility] 15:14:00 15:14:00 r Specialties 712-4899-a l 8a4-90u244 Mi nn d4baea 2014-12-24 2014-12-24 lab order nullFlavo [facility]ippa 069 132c1-1 [facility] 15:14:00 15:14:00 r Specialties 031-400b-9 l x26-61q2g2 Mi nn nj7394 2014-12-24 2014-12-24 lab order nullFlavo Knippa a31 83706-x [facility] 15:14:00 15:14:00 r Specialties 693-461f-9 l 63e-1921c0 Mi nn 5900b3 2014-12-24 2014-12-24 lab order nullFlavo Knippa bcf 73vh1-w [facility] 15:14:00 15:14:00 r Specialties 455-4e37-a l bfd-732d52 Mi nn b84e24 2014-12-24 2014-12-24 lab order nullFlavo [facility]ippa 690 z4153-3 [facility] 15:14:00 15:14:00 r Specialties 4c8-503a-3 l 0ce-92ddab Mi nn 406b93 2014-12-24 2014-12-24 lab order nullFlavo Knippa 764 cft1s-7 [facility] 15:14:00 15:14:00 r Specialties 7f0-0j69-w l 391-c5c8e3 Mi nn fb1a95 2014-12-24 2014-12-24 lab order nullFlavo Knippa 7c7 47n08-c [facility] 15:14:00 15:14:00 r Specialties 404-437d-8 l 7s4-03ps81 Mi nn 82849x 2014-12-24 2014-12-24 lab order nullFlavo Knippa a26 63164-w [facility] 15:14:00 15:14:00 r Specialties 38c-4e25-a l k8w-g78ij5 Mi nn 1ceef7 2014-12-24 2014-12-24 lab order nullFlavo Knippa d30 h4op9-3 [facility] 15:14:00 15:14:00 r Specialties 5fc-45b7-b l a4k-13wd5u Mi nn 749842 3635-11-02 2014-12-24 lab order nullFlavo [facility]ippa 1e9 94g09-0 [facility] 15:14:00 15:14:00 r Specialties 68d-453a-8 l j85-h9w985 Mi nn 0817c4 2014-12-24 2014-12-24 lab order nullFlavo Knippa be8 007ef-6 [facility] 15:14:00 15:14:00 r Specialties 131-4f7f-9 l 779-20cd85 Mi nn 6fbdb5 2014-12-24 2014-12-24 lab order nullFlavo Knippa 196 u7jf4-a [facility] 15:14:00 15:14:00 r Specialties r50-2050-5 l 613-e4w618 Mi nn ef46af 2014-12-24 2014-12-24 lab order nullFlavo [facility]ippa 7dc 76z38-8 [facility] 15:14:00 15:14:00 r Specialties 61f-4b5c-9 l 322-9cb9f5 Mi nn 00601h 2014-12-24 2014-12-24 lab order nullFlavo [facility]ippa dda 99je9-5 [facility] 15:14:00 15:14:00 r Specialties 1de-44ab-9 l fde-4m8409 Mi nn m1y844 2014-12-24 2014-12-24 Abx nullFlavo Knippa 43f3a 527-9 [facility] 15:13:00 15:13:00 Questions r Specialties 8s9-8g91 -b l 247-16z938 Mi nn de60b5 2014-12-24 2014-12-24 Abx nullFlavo [facility]ippa 941c3 b90-8 [facility] 15:13:00 15:13:00 Questions r Specialties w73-6qr5 -8 l cb2-6124e5 Mi nn b75a60 2014-12-24 2014-12-24 Abx nullFlavo Knippa e3054 b25-9 [facility] 15:13:00 15:13:00 Questions r Specialties d31-7jn2 -a l 06a-cf30f7 Mi nn f57227 2014-12-24 2014-12-24 Abx nullFlavo Knippa f360c e23-c [facility] 15:13:00 15:13:00 Questions r Specialties 726-466e -8 l 8c5-yb782l [facility] nn 477a88 2014-12-24 2014-12-24 Abx nullFlavo Knippa cc987 594-8 [facility] 15:13:00 15:13:00 Questions r Specialties dd4-4f9e -a l 64b-de7e6c [facility] nn m91554 2014-12-24 2014-12-24 Abx nullFlavo Knippa fe38c 92c-b [facility] 15:13:00 15:13:00 Questions r Specialties j1i-52k6 -b l bf3-083078 [facility] nn a81d3b 2014-12-24 2014-12-24 Abx nullFlavo Knippa 19850 274-6 [facility] 15:13:00 15:13:00 Questions r Specialties o6v-5873 -8 l 4z8-652q2j [facility] nn t5285o 2014-12-24 2014-12-24 Abx nullFlavo Knippa 1cef2 fe9-0 [facility] 15:13:00 15:13:00 Questions r Specialties 9q8-1b00 -9 l 1q4-8fcg15 [facility] nn 9b6a2b 2014-12-24 2014-12-24 Abx nullFlavo Knippa 37193 498-9 [facility] 15:13:00 15:13:00 Questions r Specialties 32d-473a -b l 433-uf857x [facility] nn 0d4a5f 2014-12-24 2014-12-24 Abx nullFlavo Knippa 165dc 04e-a [facility] 15:13:00 15:13:00 Questions r Specialties 4u4-69gu -8 l 837-c6afc2 [facility] nn b27d2e 2014-12-24 2014-12-24 Abx nullFlavo Knippa 3e5e4 d76-5 [facility] 15:13:00 15:13:00 Questions r Specialties 630-464e -a l 3r7-d268u5 Mi nn 70h770 2014-12-24 2014-12-24 Abx nullFlavo Knippa ad65a 5a4-9 [facility] 15:13:00 15:13:00 Questions r Specialties 4cf-4d33 -b l 60b-0c0f08 Mi nn [id number] 8103-11-02 2014-12-24 Abx nullFlavo Knippa 7cb72 1bd-f [facility] 15:13:00 15:13:00 Questions r Specialties a26-9yck -9 l 30c-dcad02 Mi nn fn7285 2014-12-24 2014-12-24 Abx nullFlavo Knippa 53273 72c-5 [facility] 15:13:00 15:13:00 Questions r Specialties 8ac-4ee3 -8 l i81-083950 Mi nn yo1088 2014-12-24 2014-12-24 Abx nullFlavo Knippa 4c3a5 806-8 [facility] 15:13:00 15:13:00 Questions r Specialties s31-8g7w -a l 8q9-01ut31 Mi nn c1ea1e 2014-12-24 2014-12-24 Abx nullFlavo Knippa f765a 355-f [facility] 15:13:00 15:13:00 Questions r Specialties 05b-42cd -9 l n3z-8113s3 Mi nn 9c96a3 2014-12-24 2014-12-24 Abx nullFlavo Knippa 80a76 73a-8 [facility] 15:13:00 15:13:00 Questions r Specialties 2k1-8m3q -a l n03-84aziw Mi nn 529d02 2014-12-24 2014-12-24 Abx nullFlavo Knippa fa95b 212-0 [facility] 15:13:00 15:13:00 Questions r Specialties k7q-5za4 -8 l 182-oe785i Mi nn d6a4b5 2014-12-24 2014-12-24 Abx nullFlavo Knippa fca90 9ce-a [facility] 15:13:00 15:13:00 Questions r Specialties o52-48ql -b l ebb-913d95 [facility] nn 4137d2 2014-12-24 2014-12-24 Abx nullFlavo Knippa 1e3b9 399-b [facility] 15:13:00 15:13:00 Questions r Specialties j42-6k2n -b l 6g8-a3qvp0 [facility] 1a5580 2014-12-12 2014-12-12 Medication nullFlavo Knippa e6 3d1q51-q [facility] 15:37:00 15:37:00 Refill r Specialties cdf-4f2e-a l Request [id number] [facility] ee1420 2014-12-12 2014-12-12 Medication nullFlavo Knippa f2 5lu38e-2 [facility] 15:37:00 15:37:00 Refill r Specialties m7z-22r2-5 l Request [id number]-b315a0 [facility] fdba3a 2014-12-12 2014-12-12 Medication nullFlavo Knippa 5b v074rh-7 [facility] 15:37:00 15:37:00 Refill r Specialties o8k-62z2-e l Request 20a-d390b2 [facility] [id number] 4338-10-21 2014-12-12 Medication nullFlavo Knippa 1f 049p69-g [facility] 15:37:00 15:37:00 Refill r Specialties 6z7-0130-v l Request [id number] [facility] 63f87d 2014-12-12 2014-12-12 Medication nullFlavo Knippa eb 95p70m-j [facility] 15:37:00 15:37:00 Refill r Specialties 28d-46ba-b l Request [id number]-67c24d [facility] 177261 8924-10-21 2014-12-12 Medication nullFlavo Knippa 33 153u93-8 [facility] 15:37:00 15:37:00 Refill r Specialties 692-4715-b l Request [id number] [facility] 54e5c3 2014-12-12 2014-12-12 Medication nullFlavo Knippa 80 138n00-i [facility] 15:37:00 15:37:00 Refill r Specialties 749-48c7-8 l Request s99-xqq75i [facility] fb17bf 2014-12-12 2014-12-12 Medication nullFlavo Knippa e0 s35295-z [facility] 15:37:00 15:37:00 Refill r Specialties 772-4318-a l Request [id number] [facility] 3d8dee 2014-12-12 2014-12-12 Medication nullFlavo Knippa 3c 4w49rf-0 [facility] 15:37:00 15:37:00 Refill r Specialties 998-4a9c-8 l Request [id number] [facility] bf14bb 2014-12-12 2014-12-12 Medication nullFlavo Knippa db 4v200u-7 [facility] 15:37:00 15:37:00 Refill r Specialties n97-123l-b l Request q10-98zo9r [facility] 5d1a39 2014-12-12 2014-12-12 Medication nullFlavo Knippa 37 0859bf-7 [facility] 15:37:00 15:37:00 Refill r Specialties f29-057l-6 l Request 9bb-a1c4f2 [facility] 1851fa 2014-12-12 2014-12-12 Medication nullFlavo Knippa ab 237is0-5 [facility] 15:37:00 15:37:00 Refill r Specialties 23a-4ef7-b l Request t1k-h3f4yw [facility] 756bdd 2014-12-12 2014-12-12 Medication nullFlavo Knippa 8c 7b2vb5-2 [facility] 15:37:00 15:37:00 Refill r Specialties 388-4752-a l Request [id number] [facility] 059739 8928-10-21 2014-12-12 Medication nullFlavo Knippa 92 7tv8s2-2 [facility] 15:37:00 15:37:00 Refill r Specialties x69-7pk6-j l Request 5ca-5adc3b [facility] 21597b 2014-12-12 2014-12-12 Medication nullFlavo Knippa 63 a6a58m-p [facility] 15:37:00 15:37:00 Refill r Specialties 30f-46a3-8 l Request [id number] [facility] e1s767 2014-12-12 2014-12-12 Medication nullFlavo Knippa 8f 8097af-a [facility] 15:37:00 15:37:00 Refill r Specialties 183-4ba0-a l Request [id number]-z86p8r Mi aleja 7783db 2014-12-12 2014-12-12 Medication nullFlavo Knippa e1 139974-3 [facility] 15:37:00 15:37:00 Refill r Specialties x99-8yj5-k l Request [id number]-l844t0 Mi aleja 8181ad 2014-12-12 2014-12-12 Medication nullFlavo Knippa 3a 3w1r27-5 [facility] 15:37:00 15:37:00 Refill r Specialties 101-4e96-a l Request 53f-a9a89d Mi aleja 25e66f 2014-12-12 2014-12-12 Medication nullFlavo Knippa 2f 76964v-9 [facility] 15:37:00 15:37:00 Refill r Specialties 7p4-0cqw-8 l Request 25f-23f01e Mi aleja ae3f5a 2014-12-12 2014-12-12 Medication nullFlavo Knippa 0e 51e395-n [facility] 15:37:00 15:37:00 Refill r Specialties 5ac-4248-9 l Request [id number] Mi aleja 35c81a 2014-12-12 2014-12-12 Medication nullFlavo Knippa fe ya4jz9-0 [facility] 15:37:00 15:37:00 Refill r Specialties 27e-4aef-b l Request [id number] Mi aleja f8dbdb 2014-12-12 2014-12-12 Medication nullFlavo Knippa f4 mg78z7-s [facility] 15:37:00 15:37:00 Refill r Specialties n9e-8fd1-3 l Request [id number]-p8t488 [facility] aleja 01fa36 2014-12-12 2014-12-12 Medication nullFlavo Knippa 25 1j448j-0 [facility] 15:37:00 15:37:00 Refill r Specialties ee0-4375-a l Request [id number] [facility] aleja 75a5e7 2014-12-12 2014-12-12 Medication nullFlavo Knippa 47 11n0h5-s [facility] 14:37:00 14:37:00 Refill r Specialties 659-47a9-a l Request [id number] [facility] de2fc7 2014-12-12 2014-12-12 Medication nullFlavo Knippa c8 [id number] [facility] 14:37:00 14:37:00 Refill r Specialties c93-16p9-z l Request [id number] [facility] [id number] 2014-12-12 2014-12-12 Medication nullFlavo Knippa 1c 617803-r [facility] 14:37:00 14:37:00 Refill r Specialties 2fc-4177-8 l Request [id number] [facility] [id number] 2014-12-12 2014-12-12 Medication nullFlavo Knippa 17 7kt1nz-x [facility] 14:37:00 14:37:00 Refill r Specialties 083-4183-9 l Request [id number] [facility] [id number] 2848-10-21 2014-12-12 Medication nullFlavo Knippa 88 [id number] [facility] 14:37:00 14:37:00 Refill r Specialties 041-4925-9 l Request [id number] [facility] [id number] 2014-12-12 2014-12-12 Medication nullFlavo Knippa 56 60lzc7-5 [facility] 14:37:00 14:37:00 Refill r Specialties j32-3567-8 l Request [id number] [facility] [id number] 2014-12-12 2014-12-12 Medication nullFlavo Knippa 66 [id number] [facility] 14:37:00 14:37:00 Refill r Specialties dbf-421f-b l Request [id number] [facility] [id number] 2014-12-12 2014-12-12 Medication nullFlavo Knippa 58 [id number] [facility] 14:37:00 14:37:00 Refill r Specialties 735-4973-8 l Request [id number] [facility] [id number] 2014-12-12 2014-12-12 Medication nullFlavo Knippa 61 [id number] [facility] 14:37:00 14:37:00 Refill r Specialties 550-4c3e-9 l Request [id number] [facility] [id number] 2014-12-12 2014-12-12 Medication nullFlavo Knippa e0 52h43z-t [facility] 14:37:00 14:37:00 Refill r Specialties bcc-45ee-8 l Request [id number] [facility] [id number] 2014-12-12 2014-12-12 Medication nullFlavo Knippa 18 [id number] [facility] 14:37:00 14:37:00 Refill r Specialties 27e-4c8d-9 l Request [id number] [facility] 2af8ee 2014-12-12 2014-12-12 Medication nullFlavo Knippa bf 3q7264-1 [facility] 14:37:00 14:37:00 Refill r Specialties 050-42be-a l Request [id number] [facility] adb2bc 2014-12-12 2014-12-12 Medication nullFlavo Knippa 53 ogxf42-f [facility] 14:37:00 14:37:00 Refill r Specialties 03d-4b5e-8 l Request [id number] [facility] [id number] 2014-12-12 2014-12-12 Medication nullFlavo Knippa b3 4rf183-0 [facility] 14:37:00 14:37:00 Refill r Specialties 55f-4ee3-b l Request [id number] [facility] [id number] 2014-12-12 2014-12-12 Medication nullFlavo Knippa 01 4v79sn-0 [facility] 14:37:00 14:37:00 Refill r Specialties b17-0df8-5 l Request [id number] [facility] [id number] 2014-12-12 2014-12-12 Medication nullFlavo Knippa 91 1u0b7v-m [facility] 14:37:00 14:37:00 Refill r Specialties af0-4677-8 l Request [id number] [facility] [id number] 2014-12-12 2014-12-12 Medication nullFlavo Knippa 51 jae94k-6 [facility] 14:37:00 14:37:00 Refill r Specialties 999-448e-8 l Request [id number]-1ed0d4 [facility] bd2ba5 2014-12-12 2014-12-12 Medication nullFlavo Knippa 0a l1419d-z [facility] 14:37:00 14:37:00 Refill r Specialties 7ca-46e2-a l Request [id number] [facility] nn feba16 2014-12-12 2014-12-12 Medication nullFlavo Knippa 91 x86o05-4 [facility] 14:37:00 14:37:00 Refill r Specialties 00b-4b8f-a l Request [id number] [facility] nn b7ab78 2014-12-12 2014-12-12 Medication nullFlavo Knippa be [id number] [facility] 14:37:00 14:37:00 Refill r Specialties t37-0449-6 l Request [id number] [facility] nn 9b9c1f 2014-12-05 2014-12-05 cough is nullFlavo Knippa 2bea 403b-0 [facility] 14:45:00 14:45:00 worse r Specialties fb6-48ad-b l ba0-9e3ce5 [facility] nn 30df38 2014-12-05 2014-12-05 cough is nullFlavo Knippa 2db3 2642-8 [facility] 14:45:00 14:45:00 worse r Specialties t3w-0y14-q l 571-615f6f [facility] nn 150edd 2014-12-05 2014-12-05 cough is nullFlavo Knippa 1b03 7bf9-1 [facility] 14:45:00 14:45:00 worse r Specialties 229-452e-b l 410-vo154k [facility] nn 30f4c9 2014-12-05 2014-12-05 cough is nullFlavo Knippa 5fdf ae7a-b [facility] 14:45:00 14:45:00 worse r Specialties v9h-22b7-z l 11a-bbba7e [facility] nn 15b26a 2014-12-05 2014-12-05 cough is nullFlavo Knippa 0d1d 6f95-4 [facility] 14:45:00 14:45:00 worse r Specialties 860-456e-9 l 93f-c876fb [facility] nn 7b3aad 2014-12-05 2014-12-05 cough is nullFlavo Knippa f23f abe5-b [facility] 14:45:00 14:45:00 worse r Specialties cf0-4667-a l 66c-91fe87 Mi nn 76924i 2014-12-05 2014-12-05 cough is nullFlavo Knippa 341a fd2b-4 [facility] 14:45:00 14:45:00 worse r Specialties 369-4f7d-9 l 5b1-sve79c Mi nn e141f8 2014-12-05 2014-12-05 cough is nullFlavo Knippa 9b4f bb4e-6 [facility] 14:45:00 14:45:00 worse r Specialties 0m3-0k1h-i l 6eb-179625 Mi nn 6306bf 2014-12-05 2014-12-05 cough is nullFlavo Knippa 48f1 e207-1 [facility] 14:45:00 14:45:00 worse r Specialties 616-4ec7-8 l m44-0mfe62 Mi nn 8d0d42 2014-12-05 2014-12-05 cough is nullFlavo Knippa 2632 d67e-1 [facility] 14:45:00 14:45:00 worse r Specialties k62-0h36-c l eaa-1682c2 Mi nn 2afaf1 2014-12-05 2014-12-05 cough is nullFlavo Knippa bf6d 64e9-d [facility] 14:45:00 14:45:00 worse r Specialties 2ac-4112-b l fd0-j1787y Mi nn 39c3c9 2014-12-05 2014-12-05 cough is nullFlavo Knippa b8fc 3842-b [facility] 14:45:00 14:45:00 worse r Specialties 74c-45fc-b l 61e-5ab44c Mi nn q2680c 2014-12-05 2014-12-05 cough is nullFlavo Knippa abc4 3f0f-2 [facility] 14:45:00 14:45:00 worse r Specialties 5df-4349-b l 79e-w7i604 Mi nn h99379 2014-12-05 2014-12-05 cough is nullFlavo Knippa d761 7520-6 [facility] 14:45:00 14:45:00 worse r Specialties 1k6-3s7v-i l 87f-1524cd Mi nn cade96 2014-12-05 2014-12-05 cough is nullFlavo Knippa bb00 5f52-9 [facility] 14:45:00 14:45:00 worse r Specialties 8dc-4ff5-8 l 3da-f9fad4 Mi nn gh3447 2014-12-05 2014-12-05 cough is nullFlavo Knippa 51de 69b7-f [facility] 14:45:00 14:45:00 worse r Specialties 414-4677-9 l 79d-1w0743 Mi nn z3077d 2014-12-05 2014-12-05 cough is nullFlavo Knippa 4ab0 0a5f-2 [facility] 14:45:00 14:45:00 worse r Specialties 870-418d-9 l y26-0j5609 Mi nn 7fee20 2014-12-05 2014-12-05 cough is nullFlavo Knippa 182c 3ccf-a [facility] 14:45:00 14:45:00 worse r Specialties 1p7-297v-1 l 930-34a8c0 Mi nn 7de0e8 2014-12-05 2014-12-05 cough is nullFlavo Knippa c94e 4913-1 [facility] 14:45:00 14:45:00 worse r Specialties 1ca-4082-9 l z5t-54w008 Mi nn a16f95 2014-12-05 2014-12-05 cough is nullFlavo Knippa ffcf d440-c [facility] 14:45:00 14:45:00 worse r Specialties 504-43a9-b l c32-w53ql5 Mi nn 1q119v 2014-12-05 2014-12-05 cough is nullFlavo Knippa c0bf c1de-7 [facility] 14:45:00 14:45:00 worse r Specialties 6l1-74y1-d l 30f-q6n762 Mi nn 49k666 2014-12-05 2014-12-05 cough is nullFlavo Knippa eed0 1beb-2 [facility] 14:45:00 14:45:00 worse r Specialties bd9-49bd-b l 00a-088595 Mi nn g4k871 2014-12-05 2014-12-05 cough is nullFlavo Knippa a7d3 ae13-4 [facility] 14:45:00 14:45:00 worse r Specialties 5i6-2ek6-0 l 4k8-432x47 Mi nn 594056 2941-10-14 2014-12-05 cough is nullFlavo Knippa 82a3 f2db-a [facility] 13:45:00 13:45:00 worse r Specialties m1d-5q61-z l dde-80r890 Mi nn a35836 2014-12-05 2014-12-05 cough is nullFlavo Knippa 46b6 3eba-b [facility] 13:45:00 13:45:00 worse r Specialties 91d-41b2-9 l 0z8-xul886 Mi nn 26923j 2014-12-05 2014-12-05 cough is nullFlavo Knippa d870 0619-1 [facility] 13:45:00 13:45:00 worse r Specialties b26-7a54-9 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 Mi nn 644e1e 2014-12-05 2014-12-05 cough is nullFlavo Knippa 2219 aae4-3 [facility] 13:45:00 13:45:00 worse r Specialties 80d-430f-9 l ff9-23a5d3 Mi nn 2bb9d1 2014-12-05 2014-12-05 cough is nullFlavo Knippa 18b6 72fc-3 [facility] 13:45:00 13:45:00 worse r Specialties 185-4d03-8 l 77d-4a2b1e Mi nn 3429e7 2014-12-05 2014-12-05 cough is nullFlavo Knippa c2d1 94dc-5 [facility] 13:45:00 13:45:00 worse r Specialties 4ed-414b-9 l 696-96fc1f Mi nn 3bd98d 2014-12-05 2014-12-05 cough is nullFlavo Knippa 9a3a ae3a-e [facility] 13:45:00 13:45:00 worse r Specialties 352-4bb6-9 l 3fe-24fb87 Mi nn 4afb23 2014-12-05 2014-12-05 cough is nullFlavo Knippa fb9b fbeb-5 [facility] 13:45:00 13:45:00 worse r Specialties 725-4a56-9 l 3d1-v176x2 Mi nn e6f8ac 2014-12-05 2014-12-05 cough is nullFlavo Knippa b996 918b-e [facility] 13:45:00 13:45:00 worse r Specialties c55-763x-s l q11-v702a4 Mi nn 4a9a12 2014-12-05 2014-12-05 cough is nullFlavo Knippa dfc3 c17c-e [facility] 13:45:00 13:45:00 worse r Specialties 5m2-4oqp-x l 894-11b120 [facility] nn 2cc8d2 2014-12-05 2014-12-05 cough is nullFlavo Knippa 3121 e1fe-5 [facility] 13:45:00 13:45:00 worse r Specialties 197-46d6-9 l 87c-190ae4 [facility] nn t5075f 2014-12-05 2014-12-05 cough is nullFlavo Knippa ba74 2f19-2 [facility] 13:45:00 13:45:00 worse r Specialties k99-2c9l-h l 416-232dc9 [facility] nn f2d6af 2014-12-05 2014-12-05 cough is nullFlavo Knippa a813 e05d-7 [facility] 13:45:00 13:45:00 worse r Specialties 21e-4407-9 l e54-1s244u [facility] nn c92a8b 2014-12-05 2014-12-05 cough is nullFlavo Knippa 28f7 75f0-d [facility] 13:45:00 13:45:00 worse r Specialties 615-4539-b l 3v6-5n50t6 [facility] nn 2pi958 2014-12-05 2014-12-05 cough is nullFlavo Knippa 01f4 ab6c-9 [facility] 13:45:00 13:45:00 worse r Specialties 0fa-4295-a l 665-q34115 [facility] nn u1c822 2014-12-05 2014-12-05 cough is nullFlavo Knippa cf7f ed46-8 [facility] 13:45:00 13:45:00 worse r Specialties m4m-2r9k-l l 593-ge2592 [facility] nn ek865o 2014-12-05 2014-12-05 cough is nullFlavo Knippa 8d0c 1c89-f [facility] 13:45:00 13:45:00 worse r Specialties k59-197k-j l 7bc-5eece1 Mi nn da05ae 2014-12-05 2014-12-05 cough is nullFlavo Knippa 3b19 84f9-f [facility] 13:45:00 13:45:00 worse r Specialties 971-4f74-a l 00d-739065 Mi nn d110ff 2014-12-05 2014-12-05 cough is nullFlavo Knippa c4ab 19f9-6 [facility] 13:45:00 13:45:00 worse r Specialties ae8-4203-8 l 11d-q6c864 Mi nn e016a7 2014-12-05 2014-12-05 cough is nullFlavo Knippa 0ea5 51d7-7 [facility] 13:45:00 13:45:00 worse r Specialties p3c-4tk8-1 l 2cb-821692 Mi nn 9vi865 2014-11-29 2014-11-29 coughing/ nullFlavo Knippa ae6 n6i93-t [facility] 19:15:00 19:15:00 chest pain r Specialties y4d-3pb f-9 l cd8-6o4415 Mi nn 7d2530 2014-11-29 2014-11-29 coughing/ nullFlavo Knippa 8ce 3d18k-y [facility] 19:15:00 19:15:00 chest pain r Specialties 9z3-1vu a-a l 985-25fc4a Mi nn 8d3f84 2014-11-29 2014-11-29 coughing/ nullFlavo Knippa 140 a8326-a [facility] 19:15:00 19:15:00 chest pain r Specialties ad4-4a6 9-9 l 781-9020ec Mi nn w0n545 2014-11-29 2014-11-29 coughing/ nullFlavo Knippa 65a 3lc8h-p [facility] 19:15:00 19:15:00 chest pain r Specialties 050-416 c-a l cf3-30ab65 Mi nn pr271y 2014-11-29 2014-11-29 coughing/ nullFlavo Knippa 8ce v4120-p [facility] 19:15:00 19:15:00 chest pain r Specialties 0fd-4c4 7-9 l 527-fe0aac Mi nn f17c45 2014-11-29 2014-11-29 coughing/ nullFlavo Knippa d93 2976a-8 [facility] 19:15:00 19:15:00 chest pain r Specialties 9z1-8i0 a-b l 07e-065a80 Mi nn 095b4b 2014-11-29 2014-11-29 coughing/ nullFlavo Knippa 835 zs9qf-2 [facility] 19:15:00 19:15:00 chest pain r Specialties dc7-49c f-9 l 7f2-c8r547 Mi nn 792224 2239-10-08 2014-11-29 coughing/ nullFlavo Knippa 74f 20i58-u [facility] 19:15:00 19:15:00 chest pain r Specialties cd7-4a5 8-b l 544-ow023d Mi nn 7b14dc 2014-11-29 2014-11-29 coughing/ nullFlavo Knippa 721 gl23q-3 [facility] 19:15:00 19:15:00 chest pain r Specialties eca-436 4-9 l 20e-d2fa57 Mi nn 47dbd9 2014-11-29 2014-11-29 coughing/ nullFlavo Knippa b77 536r2-9 [facility] 19:15:00 19:15:00 chest pain r Specialties 757-476 8-b l w97-1uh26q Mi nn 391a8f 2014-11-29 2014-11-29 coughing/ nullFlavo Knippa dd0 rqs0d-0 [facility] 19:15:00 19:15:00 chest pain r Specialties 66d-415 f-a l 1t4-01ngp5 Mi nn 2014-11-29 2014-11-29 coughing/ nullFlavo Knippa 9f6 1x65j-5 [facility] 19:15:00 19:15:00 chest pain r Specialties 08d-44c f-b l afe-m4n453 Mi nn f60741 2014-11-29 2014-11-29 coughing/ nullFlavo Knippa c89 6914b-6 [facility] 19:15:00 19:15:00 chest pain r Specialties 8o7-8lb c-9 l cb1-4d72fb Mi nn 48z021 2014-11-29 2014-11-29 coughing/ nullFlavo Knippa ee0 q5331-1 [facility] 19:15:00 19:15:00 chest pain r Specialties 90c-4af 9-9 l ff4-7qw948 Mi nn 0cc1a0 2014-11-29 2014-11-29 coughing/ nullFlavo Knippa d0b 871e3-h [facility] 19:15:00 19:15:00 chest pain r Specialties a27-4e6 a-9 l 257-39eed7 Mi nn 83312p 2014-11-29 2014-11-29 coughing/ nullFlavo Knippa 414 978c4-c [facility] 19:15:00 19:15:00 chest pain r Specialties 512-4de f-b l 90b-1b9c84 Mi nn 5deaf5 2014-11-29 2014-11-29 coughing/ nullFlavo Knippa 2ec g3d0a-4 [facility] 19:15:00 19:15:00 chest pain r Specialties 544-46a 2-8 l j69-761g06 Mi nn d8c05b 2014-11-29 2014-11-29 coughing/ nullFlavo Knippa 81b 244t3-8 [facility] 19:15:00 19:15:00 chest pain r Specialties 30c-439 5-b l 8c1-a3f47q Mi nn b0ad1f 2014-11-29 2014-11-29 coughing/ nullFlavo Knippa d8f qh17i-a [facility] 19:15:00 19:15:00 chest pain r Specialties 7w6-3pd c-9 l 714-1479a0 Mi nn df53b8 2014-11-29 2014-11-29 coughing/ nullFlavo Knippa 6c8 e61ud-j [facility] 19:15:00 19:15:00 chest pain r Specialties k9j-644 c-9 l 8v7-3848sd Mi nn df9d9e 2014-11-29 2014-11-29 coughing/ nullFlavo Knippa 2a6 z31lp-5 [facility] 19:15:00 19:15:00 chest pain r Specialties 04e-4e8 2-8 l 0ab-b9dc19 Mi nn 3815eb 2014-11-29 2014-11-29 coughing/ nullFlavo Knippa d9f r4687-x [facility] 19:15:00 19:15:00 chest pain r Specialties b53-463 3-9 l 396-h6z254 Mi nn 54e9dd 2014-11-29 2014-11-29 coughing/ nullFlavo Knippa fe9 cv98i-8 [facility] 19:15:00 19:15:00 chest pain r Specialties 76a-416 5-9 l bc4-de1a7f Mi nn f09f3a 2014-11-29 2014-11-29 coughing/ nullFlavo Knippa 2d5 1l8c8-2 [facility] 18:15:00 18:15:00 chest pain r Specialties 851-480 1-8 l fe3-a0548z Mi nn 44a32a 2014-11-29 2014-11-29 coughing/ nullFlavo Knippa 941 x276o-8 [facility] 18:15:00 18:15:00 chest pain r Specialties h4f-2d5 3-8 l s47-847s04 Mi nn 79899g 2014-11-29 2014-11-29 coughing/ nullFlavo Knippa f75 627z0-6 [facility] 18:15:00 18:15:00 chest pain r Specialties 815-4dd 3-a 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 Mi nn bc5ff0 2014-11-29 2014-11-29 coughing/ nullFlavo Knippa dca n111u-1 [facility] 18:15:00 18:15:00 chest pain r Specialties c8l-0l6 8-b l g80-02zwc9 Mi nn ac51b3 2014-11-29 2014-11-29 coughing/ nullFlavo Knippa 013 74169-9 [facility] 18:15:00 18:15:00 chest pain r Specialties 174-4a2 0-9 l 0cc-f262db Mi nn h2l295 2014-11-29 2014-11-29 coughing/ nullFlavo Knippa e21 7g77z-1 [facility] 18:15:00 18:15:00 chest pain r Specialties 2b8-381 b-a l r84-077w38 Mi nn ff4b08 2014-11-29 2014-11-29 coughing/ nullFlavo Knippa f41 1k7p3-9 [facility] 18:15:00 18:15:00 chest pain r Specialties 96e-487 d-9 l 96b-4424e4 Mi nn 0lc038 2014-11-29 2014-11-29 coughing/ nullFlavo Knippa 309 0n686-3 [facility] 18:15:00 18:15:00 chest pain r Specialties 6f0-21k 5-a l 8aa-9ff88b Mi nn f36ad6 2014-11-29 2014-11-29 coughing/ nullFlavo Knippa 483 9s4ms-0 [facility] 18:15:00 18:15:00 chest pain r Specialties 9e4-254 d-b l z8j-0vui43 Mi nn t3297m 2014-11-29 2014-11-29 coughing/ nullFlavo Knippa f9e 1952a-d [facility] 18:15:00 18:15:00 chest pain r Specialties 65c-4d0 f-8 l 304-346905 Mi nn 2515ae 2014-11-29 2014-11-29 coughing/ nullFlavo Knippa 2e7 6276e-e [facility] 18:15:00 18:15:00 chest pain r Specialties 910-488 a-9 l 93f-966c80 Mi nn e31f2d 2014-11-29 2014-11-29 coughing/ nullFlavo Knippa 2fe oj9q9-v [facility] 18:15:00 18:15:00 chest pain r Specialties d24-488 8-8 l 498-883980 Mi nn 4457d5 2014-11-29 2014-11-29 coughing/ nullFlavo Knippa eb3 52100-8 [facility] 18:15:00 18:15:00 chest pain r Specialties 4f7-365 f-b l d83-b14a68 Mi nn 2fd5b6 2014-11-29 2014-11-29 coughing/ nullFlavo Knippa 2a0 24ki1-i [facility] 18:15:00 18:15:00 chest pain r Specialties 825-42d 1-8 l 2u6-085390 Mi nn e7662k 2014-11-29 2014-11-29 coughing/ nullFlavo Knippa 9d5 u89xb-t [facility] 18:15:00 18:15:00 chest pain r Specialties 2n6-900 2-a l 404-0bb2fb Mi nn f906fd 2014-11-29 2014-11-29 coughing/ nullFlavo Knippa 4d2 58986-2 [facility] 18:15:00 18:15:00 chest pain r Specialties 5ef-408 5-8 l 681-4a5cce Mi nn d139ec 2014-11-29 2014-11-29 coughing/ nullFlavo Knippa 864 5k350-w [facility] 18:15:00 18:15:00 chest pain r Specialties 074-4ab 6-a l e44-26tols Mi nn e991ef 2014-11-29 2014-11-29 coughing/ nullFlavo Knippa a01 py076-8 [facility] 18:15:00 18:15:00 chest pain r Specialties 45d-49a c-b l 5ad-009bdc Mi nn 1786fc 2014-11-29 2014-11-29 coughing/ nullFlavo Knippa a8e i4bc1-u [facility] 18:15:00 18:15:00 chest pain r Specialties 689-429 0-a l 9u8-32uss5 Mi nn 2e3ba1 2014-11-29 2014-11-29 coughing/ nullFlavo Knippa c1d 9rl7t-2 [facility] 18:15:00 18:15:00 chest pain r Specialties eb4-417 1-a l h88-19qw60 Mi nn z29905 2014-11-27 2014-11-27 novolog nullFlavo Knippa 3c774 0f9-8 [facility] 16:37:00 16:37:00 refilled r Specialties z19-9opd- a l 90X0 q50-zea166 Mi nn ddd6ef 2014-11-27 2014-11-27 novolog nullFlavo Knippa 7e3b5 5a9-1 [facility] 16:37:00 16:37:00 refilled r Specialties 686-4e1f- a l 90X0 56f-492f65 Mi nn 9facf8 2014-11-27 2014-11-27 novolog nullFlavo Knippa 2dda6 86e-2 [facility] 16:37:00 16:37:00 refilled r Specialties 2i0-49r4- 9 l 90X0 2bb-d2749e Mi nn s24751 2014-11-27 2014-11-27 novolog nullFlavo Knippa f4998 5f3-8 [facility] 16:37:00 16:37:00 refilled r Specialties 7r9-3ex5- a l 90X0 2w4-z63u09 Mi nn 01k056 2014-11-27 2014-11-27 novolog nullFlavo Knippa 24a78 a78-d [facility] 16:37:00 16:37:00 refilled r Specialties 6ed-4b3c- 9 l 90X0 t39-h46107 Mi nn 2fb2ff 2014-11-27 2014-11-27 novolog nullFlavo Knippa a0d94 b04-9 [facility] 16:37:00 16:37:00 refilled r Specialties 549-4bd0- 8 l 90X0 406-13e36d Mi nn 7b4c20 2014-11-27 2014-11-27 novolog nullFlavo Knippa d5b9a 42b-d [facility] 16:37:00 16:37:00 refilled r Specialties 413-43e8- b l 90X0 i01-6372e6 Mi nn 43de35 2014-11-27 2014-11-27 novolog nullFlavo Knippa 04f76 953-3 [facility] 16:37:00 16:37:00 refilled r Specialties 0g9-485o- b l 90X0 93a-1ch972 Mi nn e60d35 2014-11-27 2014-11-27 novolog nullFlavo Knippa 96cd9 367-a [facility] 16:37:00 16:37:00 refilled r Specialties i9m-6h32- a l 90X0 21d-s7995j Mi nn a6e75c 2014-11-27 2014-11-27 novolog nullFlavo Knippa 5c3bc 448-b [facility] 16:37:00 16:37:00 refilled r Specialties 4l9-4008- a l 90X0 bad-x09699 Mi nn l89462 2014-11-27 2014-11-27 novolog nullFlavo Knippa af6cc 382-4 [facility] 16:37:00 16:37:00 refilled r Specialties o2j-1o87- 9 l 90X0 w94-774q34 Mi nn 82571c 2014-11-27 2014-11-27 novolog nullFlavo Knippa 7e5fa 4b9-d [facility] 16:37:00 16:37:00 refilled r Specialties 59f-4104- b l 90X0 h8o-2607zj Mi nn 5b8e7b 2014-11-27 2014-11-27 novolog nullFlavo Knippa 1e245 eba-8 [facility] 16:37:00 16:37:00 refilled r Specialties 497-4b65- 8 l 90X0 72b-53282b Mi nn e73cbe 2014-11-27 2014-11-27 novolog nullFlavo Knippa d70dc e2b-5 [facility] 16:37:00 16:37:00 refilled r Specialties cef-45d0- a l 90X0 777-61de26 Mi nn 0ba7b0 2014-11-27 2014-11-27 novolog nullFlavo Knippa a6d80 161-6 [facility] 16:37:00 16:37:00 refilled r Specialties 19c-4934- 9 l 90X0 j8y-9j9r69 Mi nn yqj914 2014-11-27 2014-11-27 novolog nullFlavo Knippa 961c7 4c0-f [facility] 16:37:00 16:37:00 refilled r Specialties faf-4e73- b l 90X0 093-843327 Mi nn 75ca03 2014-11-27 2014-11-27 novolog nullFlavo Knippa 2a6b9 afe-e [facility] 16:37:00 16:37:00 refilled r Specialties 8fd-4f24- 8 l 90X0 66f-80bd3f Mi nn e810bb 2014-11-27 2014-11-27 novolog nullFlavo Knippa 134a2 fd1-0 [facility] 16:37:00 16:37:00 refilled r Specialties a61-9a87- 9 l 90X0 q23-4phu9o Mi nn 836aee 2014-11-27 2014-11-27 novolog nullFlavo Knippa 405fd 7cf-9 [facility] 16:37:00 16:37:00 refilled r Specialties 699-418d- 8 l 90X0 u87-108gqq Mi nn dea1b4 2014-11-27 2014-11-27 novolog nullFlavo Knippa fe619 3b7-2 [facility] 16:37:00 16:37:00 refilled r Specialties 457-4840- b l 90X0 46b-s4192v Mi nn db3adc 2014-11-27 2014-11-27 novolog nullFlavo Knippa 9c629 5a5-1 [facility] 16:37:00 16:37:00 refilled r Specialties 1ef-495e- a l 90X0 05d-5d0fe7 Mi nn f3d4bf 2014-11-27 2014-11-27 novolog nullFlavo Knippa 2eb21 ff2-7 [facility] 16:37:00 16:37:00 refilled r Specialties 8ea-4396- 8 l 90X0 y6j-cqvujt Mi nn 72ba90 2014-11-27 2014-11-27 novolog nullFlavo Knippa d0444 a65-5 [facility] 16:37:00 16:37:00 refilled r Specialties j98-02zo- a l 90X0 ae5-8d4e12 Mi nn 0d0fa3 2014-11-27 2014-11-27 novolog nullFlavo Knippa ac1e7 6ae-4 [facility] 15:37:00 15:37:00 refilled r Specialties 463-4576- 8 l 90X0 0n4-2bh616 Mi nn abc4c8 2014-11-27 2014-11-27 novolog nullFlavo Knippa 896f0 a93-e [facility] 15:37:00 15:37:00 refilled r Specialties 84b-4af1- 8 l 90X0 t5k-6y6d75 Mi nn 16fa22 2014-11-27 2014-11-27 novolog nullFlavo Knippa 58136 3ac-4 [facility] 15:37:00 15:37:00 refilled r Specialties 029-46b8- 9 l 90X0 t70-v8v40w Mi nn es6532 2014-11-27 2014-11-27 novolog nullFlavo Knippa 7cd5d e65-3 [facility] 15:37:00 15:37:00 refilled r Specialties 774-441a- a l 90X0 04e-263643 Mi nn 563e32 2014-11-27 2014-11-27 novolog nullFlavo Knippa ae49a 62c-8 [facility] 15:37:00 15:37:00 refilled r Specialties 589-4ba5- a l 90X0 ea9-h60430 Mi nn 35z116 2014-11-27 2014-11-27 novolog nullFlavo Knippa d7135 8d2-f [facility] 15:37:00 15:37:00 refilled r Specialties 0cd-4812- 8 l 90X0 351-8jp980 Mi nn 65fc97 2014-11-27 2014-11-27 novolog nullFlavo Knippa 7a9bd 35c-c [facility] 15:37:00 15:37:00 refilled r Specialties 5x8-41pm- 8 l 90X0 ad1-fdef2c Mi nn 2c5e9e 2014-11-27 2014-11-27 novolog nullFlavo Knippa 52737 f7e-f [facility] 15:37:00 15:37:00 refilled r Specialties 587-4d6e- a l 90X0 s5b-c00856 Mi nn 50b48d 2014-11-27 2014-11-27 novolog nullFlavo Knippa 2f9a1 9b0-8 [facility] 15:37:00 15:37:00 refilled r Specialties 3o0-24qj- b l 90X0 ea6-338858 Mi nn 2922ec 2014-11-27 2014-11-27 novolog nullFlavo Knippa 41d55 92a-f [facility] 15:37:00 15:37:00 refilled r Specialties 4z9-509x- a l 90X0 8e4-1k4161 Mi nn 6ec6cc 2014-11-27 2014-11-27 novolog nullFlavo Knippa ab6ad 944-7 [facility] 15:37:00 15:37:00 refilled r Specialties 733-4107- 8 l 90X0 l1x-524x24 Mi nn r86577 2014-11-27 2014-11-27 novolog nullFlavo Knippa 4db05 fa7-c [facility] 15:37:00 15:37:00 refilled r Specialties 073-4f75- 9 l 90X0 4r3-52fwo7 Mi nn 34bce6 2014-11-27 2014-11-27 novolog nullFlavo Knippa 1721a 956-2 [facility] 15:37:00 15:37:00 refilled r Specialties 0aa-4d87- 8 l 90X0 230-5d29aa Mi nn 7f93e0 2014-11-27 2014-11-27 novolog nullFlavo Knippa 64e72 7b7-b [facility] 15:37:00 15:37:00 refilled r Specialties 55a-497a- b l 90X0 6fd-209f2d Mi nn 682e0d 2014-11-27 2014-11-27 novolog nullFlavo Knippa d2c64 50c-f [facility] 15:37:00 15:37:00 refilled r Specialties 27b-4d88- a l 90X0 402-51d8d8 Mi nn f9ebfb 2014-11-27 2014-11-27 novolog nullFlavo Knippa 7b9f7 a7e-9 [facility] 15:37:00 15:37:00 refilled r Specialties 14d-4092- b l 90X0 fc4-18bac0 Mi nn 26bcc7 2014-11-27 2014-11-27 novolog nullFlavo Knippa ca3ae 5b1-a [facility] 15:37:00 15:37:00 refilled r Specialties 5ac-41bc- 9 l 90X0 q5m-71fz4p Mi nn 21f39b 2014-11-27 2014-11-27 novolog nullFlavo Knippa 08e93 b5f-4 [facility] 15:37:00 15:37:00 refilled r Specialties 990-46ee- 8 l 90X0 k59-4128s1 Mi nn deb25c 2014-11-27 2014-11-27 novolog nullFlavo Knippa d6bfd 109-2 [facility] 15:37:00 15:37:00 refilled r Specialties w20-1305- 9 l 90X0 64e-634e52 Mi nn aabba2 2014-11-27 2014-11-27 novolog nullFlavo Knippa 8cc53 2c3-8 [facility] 15:37:00 15:37:00 refilled r Specialties u97-5rz1- a l 90X0 8j3-142ul5 Mi nn 4w929c 2014-11-16 2014-11-16 2WK F/U nullFlavo Knippa 634a8 86d-1 [facility] 16:45:00 16:45:00 r Specialties 99f-43af-9 l 74d-9q0854 Mi nn 02e6b7 2014-11-16 2014-11-16 2WK F/U nullFlavo Knippa 59212 fa2-2 [facility] 16:45:00 16:45:00 r Specialties 70e-471a-8 l 6y5-391x32 Mi nn 47418g 2014-11-16 2014-11-16 2WK F/U nullFlavo Knippa a4d60 b16-9 [facility] 16:45:00 16:45:00 r Specialties 124-4cfc-a l 6r5-890y31 Mi nn a8b4b9 2014-11-16 2014-11-16 2WK F/U nullFlavo Knippa e128d cf6-a [facility] 16:45:00 16:45:00 r Specialties 41d-4baf-8 l q2r-qp14va Mi nn 1y9755 2014-11-16 2014-11-16 2WK F/U nullFlavo Knippa 8ef1c 694-e [facility] 16:45:00 16:45:00 r Specialties 939-41ca-8 l 558-21f4cf Mi nn ce0a3f 2014-11-16 2014-11-16 2WK F/U nullFlavo Knippa 3f353 334-d [facility] 16:45:00 16:45:00 r Specialties 5bf-4334-a l a65-l8mgvz Mi nn zku263 2014-11-16 2014-11-16 2WK F/U nullFlavo Knippa c40a8 fb6-b [facility] 16:45:00 16:45:00 r Specialties 696-42ae-b l 07a-357d71 Mi nn e2fed2 2014-11-16 2014-11-16 2WK F/U nullFlavo Knippa 98fcc 044-9 [facility] 16:45:00 16:45:00 r Specialties u18-75i3-x l 68b-99486b Mi nn b658bb 2014-11-16 2014-11-16 2WK F/U nullFlavo Knippa f8510 490-e [facility] 16:45:00 16:45:00 r Specialties n8n-62c5-2 l c82-l1y5j4 Mi nn e8db55 2014-11-16 2014-11-16 2WK F/U nullFlavo Knippa dd601 457-6 [facility] 16:45:00 16:45:00 r Specialties 25f-440b-b l 7u1-665v51 Mi nn 896b5d 2014-11-16 2014-11-16 2WK F/U nullFlavo Knippa b9c1a 7d0-e [facility] 16:45:00 16:45:00 r Specialties n96-3a54-5 l 103-93m793 Mi nn c5ef66 2014-11-16 2014-11-16 2WK F/U nullFlavo Knippa dcd5d 834-1 [facility] 16:45:00 16:45:00 r Specialties 7b9-7100-m l 7m4-9st4t2 Mi nn 6dc8c3 2014-11-16 2014-11-16 2WK F/U nullFlavo Knippa 940f0 946-c [facility] 16:45:00 16:45:00 r Specialties 4z0-8795-0 l 0f3-l0135g Mi nn 1rs828 2014-11-16 2014-11-16 2WK F/U nullFlavo Knippa 2f531 47f-5 [facility] 16:45:00 16:45:00 r Specialties 887-440a-a l ef4-01k990 Mi nn 67ed79 2014-11-16 2014-11-16 2WK F/U nullFlavo Knippa 6f36e 271-7 [facility] 16:45:00 16:45:00 r Specialties f3r-77tt-9 l 54d-l9t976 Mi nn 67j974 2014-11-16 2014-11-16 2WK F/U nullFlavo Knippa 1fcab 3d8-3 [facility] 16:45:00 16:45:00 r Specialties v08-1022-w l a4y-907346 Mi nn daca93 2014-11-16 2014-11-16 2WK F/U nullFlavo Knippa b5db9 1ce-5 [facility] 16:45:00 16:45:00 r Specialties 068-47ae-8 l 146-20d97f Mi nn 69a2f0 2014-11-16 2014-11-16 2WK F/U nullFlavo Knippa 6f92a 133-5 [facility] 16:45:00 16:45:00 r Specialties 3c7-117q-9 l fe6-397a72 Mi nn 991da6 2014-11-16 2014-11-16 2WK F/U nullFlavo Knippa b994e 8d5-2 [facility] 16:45:00 16:45:00 r Specialties 83b-41e9-b l 6l7-42129g Mi nn 7eff7c 2014-11-16 2014-11-16 2WK F/U nullFlavo Knippa 03a02 98b-8 [facility] 16:45:00 16:45:00 r Specialties g12-7029-7 l 387-29ca72 Mi nn 0d4fb1 2014-11-16 2014-11-16 2WK F/U nullFlavo Knippa f6f0e 830-b [facility] 16:45:00 16:45:00 r Specialties dbc-49f6-8 l s77-30j647 Mi nn 2d8ba0 2014-11-16 2014-11-16 2WK F/U nullFlavo Knippa aab95 2f3-6 [facility] 16:45:00 16:45:00 r Specialties 2n4-0831-a l 389-4350ee Mi nn t7651s 2014-11-16 2014-11-16 2WK F/U nullFlavo Knippa cc1af 68f-0 [facility] 16:45:00 16:45:00 r Specialties ae8-4ae1-9 l ac7-c242c0 Mi nn d3fcf1 2014-11-16 2014-11-16 2WK F/U nullFlavo Knippa 6cc03 5fc-a [facility] 15:45:00 15:45:00 r Specialties bf7-4361-9 l 3fb-7320ce Mi nn 6757d4 2014-11-16 2014-11-16 2WK F/U nullFlavo Knippa ce543 42a-1 [facility] 15:45:00 15:45:00 r Specialties 865-406a-b l 0ef-6892af Mi nn qw5087 2014-11-16 2014-11-16 2WK F/U nullFlavo Knippa a64dd 3a2-c [facility] 15:45:00 15:45:00 r Specialties 2ca-4571-9 l 2y4-4151hr Mi nn 0b5de0 2014-11-16 2014-11-16 2WK F/U nullFlavo Knippa 78b3d 1f8-0 [facility] 15:45:00 15:45:00 r Specialties cc0-4b81-a l 943-6cdcf9 Mi nn 4e64fb 2014-11-16 2014-11-16 2WK F/U nullFlavo Knippa c8493 4e3-8 [facility] 15:45:00 15:45:00 r Specialties 278-4271-a l bf8-x5t792 Mi nn 4c7baa 2014-11-16 2014-11-16 2WK F/U nullFlavo Knippa 6de32 b3d-8 [facility] 15:45:00 15:45:00 r Specialties 031-4ab7-8 l y1c-0857ld Mi nn bbf07c 2014-11-16 2014-11-16 2WK F/U nullFlavo Knippa 69b2b 43c-e [facility] 15:45:00 15:45:00 r Specialties 60c-4159-b l 9ec-2d89a5 [facility] nn 6t8190 2014-11-16 2014-11-16 2WK F/U nullFlavo Knippa e95b0 495-c [facility] 15:45:00 15:45:00 r Specialties 7t6-893w-1 l 052-95bf1a [facility] nn 332705 7934-09-25 2014-11-16 2WK F/U nullFlavo Knippa 6539a d42-4 [facility] 15:45:00 15:45:00 r Specialties 7g6-8uak-5 l 311-c00c96 [facility] nn 4c0fe2 2014-11-16 2014-11-16 2WK F/U nullFlavo Knippa a0d78 6de-2 [facility] 15:45:00 15:45:00 r Specialties db1-4e26-a l u38-367yd9 [facility] nn 162bec 2014-11-16 2014-11-16 2WK F/U nullFlavo Knippa 388e1 bf2-b [facility] 15:45:00 15:45:00 r Specialties 17e-4467-8 l a82-6u0488 [facility] nn 3193ee 2014-11-16 2014-11-16 2WK F/U nullFlavo Knippa f3bd9 37b-7 [facility] 15:45:00 15:45:00 r Specialties 980-4bf4-8 l 5q6-785i8d [facility] nn sb5058 2014-11-16 2014-11-16 2WK F/U nullFlavo Knippa bb310 aad-4 [facility] 15:45:00 15:45:00 r Specialties 11f-4c13-a l 6l7-4tk329 [facility] nn 862817 5976-09-25 2014-11-16 2WK F/U nullFlavo Knippa 19da8 82f-f [facility] 15:45:00 15:45:00 r Specialties 117-4003-8 l 7o6-o94m72 [facility] nn f23f3e 2014-11-16 2014-11-16 2WK F/U nullFlavo Knippa c7b15 18e-f [facility] 15:45:00 15:45:00 r Specialties 2cf-467c-b l 243-d69b7e Mi nn 81aeca 2014-11-16 2014-11-16 2WK F/U nullFlavo Knippa 2250e 268-e [facility] 15:45:00 15:45:00 r Specialties 551-40a9-b l a43-56b739 Mi nn 164794 4991-09-25 2014-11-16 2WK F/U nullFlavo Knippa 6c5f9 ce6-9 [facility] 15:45:00 15:45:00 r Specialties 59c-447f-b l cc2-39f9a8 Mi nn 3b08ef 2014-11-16 2014-11-16 2WK F/U nullFlavo Knippa e0e45 765-4 [facility] 15:45:00 15:45:00 r Specialties 981-42b3-a l 0d9-w56dz4 [facility] nn 4ea69f 2014-11-16 2014-11-16 2WK F/U nullFlavo Knippa 8f064 18b-8 [facility] 15:45:00 15:45:00 r Specialties 991-4c35-b l 330-ebc47c [facility] nn 8131f1 2014-11-16 2014-11-16 2WK F/U nullFlavo Knippa a9d1f 16f-3 [facility] 15:45:00 15:45:00 r Specialties h3f-8w14-3 l 5aa-b898d6 [facility] nn 19j166 2014-10-30 2014-10-30 Walk-in nullFlavo Knippa 8702f db6-f [facility] 19:45:00 19:45:00 r Specialties w8q-91uf-p l g31-e01lls Mi nn 554194 9077-09-08 2014-10-30 Walk-in nullFlavo Knippa c7f7e cba-f [facility] 19:45:00 19:45:00 r Specialties tai-43ed-b l 64b-35407a Mi nn d917f4 2014-10-30 2014-10-30 Walk-in nullFlavo Knippa bb03b 2c6-9 [facility] 19:45:00 19:45:00 r Specialties 646-4ae6-b l n97-0d7800 [facility] aleja fu8364 2014-10-30 2014-10-30 Walk-in nullFlavo Knippa b7385 611-9 [facility] 19:45:00 19:45:00 r Specialties i00-161o-c l 191-l7800m Mi aleja 85cd28 2014-10-30 2014-10-30 Walk-in nullFlavo Knippa 59da5 fee-d [facility] 19:45:00 19:45:00 r Specialties 52f-4073-9 l p33-50269r [facility] aleja 24533v 2014-10-30 2014-10-30 Walk-in nullFlavo Knippa 01e57 ae2-a [facility] 19:45:00 19:45:00 r Specialties 62f-457b-9 l 39d-942233 [facility] f4e36d 2014-10-30 2014-10-30 Walk-in nullFlavo Knippa 721f9 4d0-b [facility] 19:45:00 19:45:00 r Specialties 32f-4458-8 l 941-867ebe [facility] 1acea6 2014-10-30 2014-10-30 Walk-in nullFlavo Knippa 2a2c3 24e-5 [facility] 19:45:00 19:45:00 r Specialties 104-4a3c-9 l y0x-6t8zfp [facility] aleja uo7699 2014-10-30 2014-10-30 Walk-in nullFlavo Knippa 7212a e3e-9 [facility] 19:45:00 19:45:00 r Specialties 923-4c97-b l 484-e2f24e [facility] aleja 4192ec 2014-10-30 2014-10-30 Walk-in nullFlavo Knippa ec854 648-4 [facility] 19:45:00 19:45:00 r Specialties p8k-0xl6-h l 0cc-0ef53a [facility] aleja af01af 2014-10-30 2014-10-30 Walk-in nullFlavo Knippa 6ba42 bda-d [facility] 19:45:00 19:45:00 r Specialties 446-4163-a l q71-575276 [facility] b59fb8 2014-10-30 2014-10-30 Walk-in nullFlavo Knippa 186ea 57b-5 [facility] 19:45:00 19:45:00 r Specialties 519-4d5a-b l 07c-e1cec3 Mi nn 74b870 2014-10-30 2014-10-30 Walk-in nullFlavo Knippa 9ff80 f14-b [facility] 19:45:00 19:45:00 r Specialties 6k5-1550-o l 23e-730dcc Mi nn 987d0d 2014-10-30 2014-10-30 Walk-in nullFlavo Knippa b3833 cb0-8 [facility] 19:45:00 19:45:00 r Specialties afe-4c96-9 l 389-69cdaa Mi nn d62f7a 2014-10-30 2014-10-30 Walk-in nullFlavo Knippa a5d6e c7d-d [facility] 19:45:00 19:45:00 r Specialties s1d-1z7f-0 l 158-08853q Mi nn 94m894 2014-10-30 2014-10-30 Walk-in nullFlavo Knippa 8b071 1fe-8 [facility] 19:45:00 19:45:00 r Specialties 7q0-8e20-5 l q2m-t9s8zo Mi nn ohq963 2014-10-30 2014-10-30 Walk-in nullFlavo Knippa bc7ac 04d-3 [facility] 19:45:00 19:45:00 r Specialties u71-5k48-q l z29-3k6z0t Mi nn 248753 9547-09-08 2014-10-30 Walk-in nullFlavo Knippa 7cbf0 abc-6 [facility] 19:45:00 19:45:00 r Specialties o92-6t23-8 l 37a-fa5aa0 Mi nn 9w692s 2014-10-30 2014-10-30 Walk-in nullFlavo Knippa 37a60 3f6-a [facility] 19:45:00 19:45:00 r Specialties 5o8-690m-8 l a1z-7gm0da Mi nn w73112 2014-10-30 2014-10-30 Walk-in nullFlavo Knippa 6191a 7d7-c [facility] 19:45:00 19:45:00 r Specialties g92-4f64-k l 6o1-p26ps7 Mi nn ta867b 2014-10-30 2014-10-30 Walk-in nullFlavo Knippa 6a3c8 fb2-7 [facility] 19:45:00 19:45:00 r Specialties 7s1-28b7-n l 04a-bb7c69 Mi nn 232d22 2014-10-30 2014-10-30 Walk-in nullFlavo Knippa c7d0d 054-1 [facility] 19:45:00 19:45:00 r Specialties 3k4-8t9k-u l 5l9-v602b9 Mi nn 20ccf8 2014-10-30 2014-10-30 Walk-in nullFlavo Knippa 828b7 427-9 [facility] 19:45:00 19:45:00 r Specialties amanuel-4eec-9 l 986-9bfa1e Mi nn 88l892 2014-10-30 2014-10-30 Walk-in nullFlavo Knippa d4f2f 647-b [facility] 18:45:00 18:45:00 r Specialties 93b-4cff-b l v62-90k3x4 Mi nn 6b869y 2014-10-30 2014-10-30 Walk-in nullFlavo Knippa 5fa30 f04-3 [facility] 18:45:00 18:45:00 r Specialties 6be-42a4-b l 191-pnz136 Mi nn 95p014 2014-10-30 2014-10-30 Walk-in nullFlavo Knippa 17a1e 3a7-c [facility] 18:45:00 18:45:00 r Specialties 6g9-9723-6 l s14-466364 Mi nn 3o1679 2014-10-30 2014-10-30 Walk-in nullFlavo Knippa ee8a8 77e-d [facility] 18:45:00 18:45:00 r Specialties 659-48ce-9 l 09b-8e18ca Mi nn 4e241i 2014-10-30 2014-10-30 Walk-in nullFlavo Knippa e4f77 e24-6 [facility] 18:45:00 18:45:00 r Specialties 3r0-190d-8 l l1w-8301cb Mi nn 8j1559 2014-10-30 2014-10-30 Walk-in nullFlavo Knippa ff43d 72d-0 [facility] 18:45:00 18:45:00 r Specialties v05-37vy-9 l 18e-c12ba0 Mi nn 4c29a5 2014-10-30 2014-10-30 Walk-in nullFlavo Knippa f02e3 3ae-e [facility] 18:45:00 18:45:00 r Specialties k6k-0426-x l 04a-4265c3 Mi nn 0b6dc3 2014-10-30 2014-10-30 Walk-in nullFlavo Knippa 6a399 4a7-5 [facility] 18:45:00 18:45:00 r Specialties 3k4-7t5m-8 l 73a-5f8588 Mi nn 2d7c94 2014-10-30 2014-10-30 Walk-in nullFlavo Knippa 4ad85 6d8-5 [facility] 18:45:00 18:45:00 r Specialties y56-2z59-j l m9l-28n751 Mi nn 455d3c 2014-10-30 2014-10-30 Walk-in nullFlavo Knippa 25749 1e6-0 [facility] 18:45:00 18:45:00 r Specialties 319-430b-b l 968-843779 Mi nn 178e1f 2014-10-30 2014-10-30 Walk-in nullFlavo Knippa 94099 364-a [facility] 18:45:00 18:45:00 r Specialties k1t-8751-z l 8g0-rcb16f Mi nn 17fc12 2014-10-30 2014-10-30 Walk-in nullFlavo Knippa fa479 9a2-4 [facility] 18:45:00 18:45:00 r Specialties 196-4e5d-9 l 2eb-d622cb Mi nn 0t874e 2014-10-30 2014-10-30 Walk-in nullFlavo Knippa 48d4e 102-9 [facility] 18:45:00 18:45:00 r Specialties 69a-4499-9 l 726-f416d1 Mi nn 8k940l 2014-10-30 2014-10-30 Walk-in nullFlavo Knippa da5c2 c32-e [facility] 18:45:00 18:45:00 r Specialties 7l8-1007-c l ce5-27g202 Mi nn 77a3a7 2014-10-30 2014-10-30 Walk-in nullFlavo Knippa ef446 b96-6 [facility] 18:45:00 18:45:00 r Specialties o34-6zf4-1 l bc5-8f7214 Mi nn 079c66 2014-10-30 2014-10-30 Walk-in nullFlavo Knippa 07eef d4d-c [facility] 18:45:00 18:45:00 r Specialties fde-43ea-a l 8t6-3ha2kt Mi nn 193451 8732-09-08 2014-10-30 Walk-in nullFlavo Knippa f47c6 2c1-9 [facility] 18:45:00 18:45:00 r Specialties 681-4b08-8 l 4k6-z062vr Mi nn c35b08 2014-10-30 2014-10-30 Walk-in nullFlavo Knippa 2dcd1 d4a-e [facility] 18:45:00 18:45:00 r Specialties 8ff-422b-b l 949-a212d5 [facility] nn 98s415 2014-10-30 2014-10-30 Walk-in nullFlavo Knippa a7d9b bcf-5 [facility] 18:45:00 18:45:00 r Specialties 021-4d95-b l 329-049c13 [facility] nn a1e78e 2014-10-30 2014-10-30 Walk-in nullFlavo Knippa 9a9f0 e0e-7 [facility] 18:45:00 18:45:00 r Specialties m97-077m-b l 77e-2ceb3c [facility] nn r0r608 2014-10-30 2014-10-30 Walk-in nullFlavo Knippa 129f7 1d5-6 [facility] 18:45:00 18:45:00 r Specialties z00-2e83-s l 3ac-m16288 [facility] nn 68c90a 2014-10-25 2014-10-25 RX Refill nullFlavo Knippa 353 e49de-k [facility] 17:14:00 17:14:00 (Allergy r Specialties 2af-4a73- a l Medication 797-b26c04 [facility] ) 748ab5 2014-10-25 2014-10-25 RX Refill nullFlavo Knippa c3f 9778d-2 [facility] 17:14:00 17:14:00 (Allergy r Specialties 0d2-1707- b l Medication d8y-0bb777 [facility] ) 53a5e0 2014-10-25 2014-10-25 RX Refill nullFlavo Knippa 076 5rx0e-0 [facility] 17:14:00 17:14:00 (Allergy r Specialties 997-40dc- 9 l Medication a2t-b82z97 [facility] ) 406347 8167-09-03 2014-10-25 RX Refill nullFlavo Knippa 094 bef77-b [facility] 17:14:00 17:14:00 (Allergy r Specialties be3-47ec- b l Medication 04e-h7876n [facility] ) dfa9ef 2014-10-25 2014-10-25 RX Refill nullFlavo Knippa 209 ki037-k [facility] 17:14:00 17:14:00 (Allergy r Specialties 1r3-3m08- a l Medication 574-h85094 [facility] ) db85e6 2014-10-25 2014-10-25 RX Refill nullFlavo Knippa 3e0 t0713-t [facility] 17:14:00 17:14:00 (Allergy r Specialties 27e-42ef- a l Medication c78-1m8d03 [facility] ) ddb69e 2014-10-25 2014-10-25 RX Refill nullFlavo Knippa 807 6be8q-2 [facility] 17:14:00 17:14:00 (Allergy r Specialties s7v-5sib- 8 l Medication 580-5671d8 [facility] ) 18df1e 2014-10-25 2014-10-25 RX Refill nullFlavo Knippa 7fc 8206e-0 [facility] 17:14:00 17:14:00 (Allergy r Specialties 78e-4092- 9 l Medication m6b-634co8 [facility] ) 180366 0465-09-03 2014-10-25 RX Refill nullFlavo Knippa 7a2 57j40-7 [facility] 17:14:00 17:14:00 (Allergy r Specialties 480-445c- 9 l Medication 4a9-661w50 [facility] ) 784948 2438-09-03 2014-10-25 RX Refill nullFlavo Knippa fda 01319-g [facility] 17:14:00 17:14:00 (Allergy r Specialties 122-4204- a l Medication 8be-d93162 [facility] ) 696f38 2014-10-25 2014-10-25 RX Refill nullFlavo Knippa 5f8 1y280-4 [facility] 17:14:00 17:14:00 (Allergy r Specialties 2u7-06h8- 9 l Medication g02-2b90k7 [facility] ) 4844d2 2014-10-25 2014-10-25 RX Refill nullFlavo Knippa 0e6 5190c-7 [facility] 17:14:00 17:14:00 (Allergy r Specialties 755-4bf4- b l Medication 440-605abc [facility] ) 2128ec 2014-10-25 2014-10-25 RX Refill nullFlavo Knippa 0f1 k6t55-1 [facility] 17:14:00 17:14:00 (Allergy r Specialties u0c-249e- 9 l Medication 7p2-4pxa79 [facility] ) e095b9 2014-10-25 2014-10-25 RX Refill nullFlavo Knippa dbc 8256c-2 [facility] 17:14:00 17:14:00 (Allergy r Specialties b33-5583- b l Medication w3h-55zros [facility] ) im578f 2014-10-25 2014-10-25 RX Refill nullFlavo Knippa 610 n99yv-0 [facility] 17:14:00 17:14:00 (Allergy r Specialties s82-3b21- 8 l Medication 578-3xm799 [facility] ) 8fc7bc 2014-10-25 2014-10-25 RX Refill nullFlavo Knippa bb3 m1h66-7 [facility] 17:14:00 17:14:00 (Allergy r Specialties l11-91yy- 8 l Medication e61-6m3e2s [facility] ) 4y7683 2014-10-25 2014-10-25 RX Refill nullFlavo Knippa 938 99290-f [facility] 17:14:00 17:14:00 (Allergy r Specialties 824-42a7- b l Medication 0c4-914836 [facility] ) 6d6033 2014-10-25 2014-10-25 RX Refill nullFlavo Knippa 39f 2k714-2 [facility] 17:14:00 17:14:00 (Allergy r Specialties 2r2-3422- 9 l Medication 080-2cefce [facility] ) 104ce8 2014-10-25 2014-10-25 RX Refill nullFlavo Knippa 987 sa04w-5 [facility] 17:14:00 17:14:00 (Allergy r Specialties 025-4cfe- a l Medication 379-80226b [facility] ) 125fdb 2014-10-25 2014-10-25 RX Refill nullFlavo Knippa 7ac 71707-x [facility] 17:14:00 17:14:00 (Allergy r Specialties 5l1-61o6- 9 l Medication s59-y88x5x [facility] ) 878681 3179-09-03 2014-10-25 RX Refill nullFlavo Knippa e36 zv997-8 [facility] 17:14:00 17:14:00 (Allergy r Specialties 4cf-4495- b l Medication n2u-25jdse [facility] ) 906425 7120-09-03 2014-10-25 RX Refill nullFlavo Knippa c6f 4pj60-7 [facility] 17:14:00 17:14:00 (Allergy r Specialties 796-4d9e- 8 l Medication 632-sqv323 [facility] ) b783ea 2014-10-25 2014-10-25 RX Refill nullFlavo Knippa 9a7 dba15-e [facility] 17:14:00 17:14:00 (Allergy r Specialties 65a-4ecc- 8 l Medication 4fd-u9n158 [facility] ) zc939w 2014-10-25 2014-10-25 RX Refill nullFlavo Knippa d9d qh42f-5 [facility] 16:14:00 16:14:00 (Allergy r Specialties 6w9-0d26- b l Medication 863-38g293 [facility] ) 115698 2851-09-03 2014-10-25 RX Refill nullFlavo Knippa 919 k2s85-l [facility] 16:14:00 16:14:00 (Allergy r Specialties i35-8g97- 9 l Medication 2c6-9sd5a3 [facility] ) 9cfaf3 2014-10-25 2014-10-25 RX Refill nullFlavo Knippa 873 6118a-9 [facility] 16:14:00 16:14:00 (Allergy r Specialties 913-4757- a l Medication 06a-7deede [facility] ) 554ba1 2014-10-25 2014-10-25 RX Refill nullFlavo Knippa 22d o1j70-7 [facility] 16:14:00 16:14:00 (Allergy r Specialties x54-069q- b l Medication 635-95823q [facility] ) 474c94 2014-10-25 2014-10-25 RX Refill nullFlavo Knippa 60b 6c898-0 [facility] 16:14:00 16:14:00 (Allergy r Specialties 700-457b- a l Medication 55e-b691c0 [facility] ) f8b97b 2014-10-25 2014-10-25 RX Refill nullFlavo Knippa af9 dea47-7 [facility] 16:14:00 16:14:00 (Allergy r Specialties bbe-4c50- 9 l Medication 0g9-139861 [facility] ) cd68a7 2014-10-25 2014-10-25 RX Refill nullFlavo Knippa a83 77x13-1 [facility] 16:14:00 16:14:00 (Allergy r Specialties 3k4-4sgf- b l Medication 19f-d447b6 [facility] ) 337f53 2014-10-25 2014-10-25 RX Refill nullFlavo Knippa 1b3 83g3o-h [facility] 16:14:00 16:14:00 (Allergy r Specialties 075-4ba1- 8 l Medication 20d-nt128c [facility] ) 591aac 2014-10-25 2014-10-25 RX Refill nullFlavo Knippa usp 3t8j0-2 [facility] 16:14:00 16:14:00 (Allergy r Specialties 75b-408f- 9 l Medication 369-4fbcf2 [facility] ) 8697ed 2014-10-25 2014-10-25 RX Refill nullFlavo Knippa 080 s6pk9-6 [facility] 16:14:00 16:14:00 (Allergy r Specialties 7d8-7y42- 8 l Medication 924-3p6310 [facility] ) 32bdfb 2014-10-25 2014-10-25 RX Refill nullFlavo Knippa fe7 2d0ek-w [facility] 16:14:00 16:14:00 (Allergy r Specialties 89d-47ba- b l Medication 92c-3e68a3 [facility] ) 933027 8780-09-03 2014-10-25 RX Refill nullFlavo Knippa 73f m57c3-0 [facility] 16:14:00 16:14:00 (Allergy r Specialties 7x7-06e7- 8 l Medication fa4-a2q914 [facility] ) 5aeb6b 2014-10-25 2014-10-25 RX Refill nullFlavo Knippa f5d 4i272-t [facility] 16:14:00 16:14:00 (Allergy r Specialties 6m7-9134- 8 l Medication eeb-51e79d [facility] ) 7a4f3d 2014-10-25 2014-10-25 RX Refill nullFlavo Knippa 5e6 q2np4-1 [facility] 16:14:00 16:14:00 (Allergy r Specialties f12-070g- 8 l Medication j7d-9k88ts [facility] ) 361c9b 2014-10-25 2014-10-25 RX Refill nullFlavo Knippa e76 bfb78-0 [facility] 16:14:00 16:14:00 (Allergy r Specialties 1i1-7j4s- 8 l Medication 20e-8ffa46 [facility] ) 4e4c20 2014-10-25 2014-10-25 RX Refill nullFlavo Knippa ca0 8659e-8 [facility] 16:14:00 16:14:00 (Allergy r Specialties bf3-4ee6- 9 l Medication v4c-1e7yeb [facility] ) e02e5c 2014-10-25 2014-10-25 RX Refill nullFlavo Knippa 29b n6213-0 [facility] 16:14:00 16:14:00 (Allergy r Specialties 9ea-4421- 9 l Medication a93-v2xr62 [facility] ) 300a79 2014-10-25 2014-10-25 RX Refill nullFlavo Knippa donnie 99yt1-9 [facility] 16:14:00 16:14:00 (Allergy r Specialties 7z0-2642- b l Medication 6s0-yi25g0 [facility] ) 5861bb 2014-10-25 2014-10-25 RX Refill nullFlavo Knippa 902 y53k5-1 [facility] 16:14:00 16:14:00 (Allergy r Specialties i6k-1854- b l Medication 88d-582d5c [facility] ) 003148 9400-09-03 2014-10-25 RX Refill nullFlavo Knippa c73 11w72-9 [facility] 16:14:00 16:14:00 (Allergy r Specialties 002-435f- 9 l Medication 39e-ppv068 [facility] ) 2cefc4 2014-10-25 2014-10-25 RX Refill nullFlavo Knippa 70b k47i5-t [facility] 16:14:00 16:14:00 (Allergy r Specialties m1f-25w5- b l Medication 84f-d69292 [facility] ) bb62c0 2014-10-15 2014-10-15 Medication nullFlavo Knippa cf 2g1x4v-4 [facility] 20:08:00 20:08:00 clarificat r Specialties baf-4e2 2-9 l ion 922-z56100 Mi nn question [id number] 2014-10-15 2014-10-15 Medication nullFlavo Knippa ef 828m51-1 [facility] 20:08:00 20:08:00 clarificat r Specialties fb3-480 7-a l ion f97-72frb1 Mi nn question [id number] 2014-10-15 2014-10-15 Medication nullFlavo Knippa e8 z964d8-x [facility] 20:08:00 20:08:00 clarificat r Specialties 6ab-475 d-9 l ion 091-wc7718 Mi nn question 36599e 2014-10-15 2014-10-15 Medication nullFlavo Knippa c4 5bfl0x-8 [facility] 20:08:00 20:08:00 clarificat r Specialties 2df-48e 1-a l ion 059-ee08e6 Mi nn question 4669d0 2014-10-15 2014-10-15 Medication nullFlavo Knippa 27 o30886-7 [facility] 20:08:00 20:08:00 clarificat r Specialties 270-456 1-9 l ion m49-342y30 Mi nn question c9f32b 2014-10-15 2014-10-15 Medication nullFlavo Knippa bd 1fdbee-0 [facility] 20:08:00 20:08:00 clarificat r Specialties 5u8-0d0 6-b l ion [id number] Mi nn question [id number] 2014-10-15 2014-10-15 Medication nullFlavo Knippa 2e 585324-4 [facility] 20:08:00 20:08:00 clarificat r Specialties z1p-618 b-b l ion 9g4-nfs6s1 Mi nn question [id number] 9325-08-24 2014-10-15 Medication nullFlavo Knippa d8 21lo6u-i [facility] 20:08:00 20:08:00 clarificat r Specialties q5b-4f5 b-a l ion fdd-nwh504 Mi nn question p4126s 2014-10-15 2014-10-15 Medication nullFlavo Knippa e7 6w534e-5 [facility] 20:08:00 20:08:00 clarificat r Specialties db3-4e6 f-9 l ion s2p-qdh78h Mi nn question 039400 7846-08-24 2014-10-15 Medication nullFlavo Knippa 5b 4uu1y4-4 [facility] 20:08:00 20:08:00 clarificat r Specialties afe-411 c-8 l ion 669-5or841 Mi nn question 30251n 2014-10-15 2014-10-15 Medication nullFlavo Knippa d2 cfccdd-a [facility] 20:08:00 20:08:00 clarificat r Specialties 90b-4f6 8-8 l ion 728-8547ee Mi nn question 74fab6 2014-10-15 2014-10-15 Medication nullFlavo Knippa eb kw945c-1 [facility] 20:08:00 20:08:00 clarificat r Specialties feb-486 7-b l ion ad5-e4117u Mi nn question 825a01 2014-10-15 2014-10-15 Medication nullFlavo Knippa 88 1k575d-1 [facility] 20:08:00 20:08:00 clarificat r Specialties 307-4e1 e-a l ion n0p-163glg Mi nn question e00e24 2014-10-15 2014-10-15 Medication nullFlavo Knippa e4 l64emq-8 [facility] 20:08:00 20:08:00 clarificat r Specialties 64f-435 e-9 l ion 1v5-1uhlm2 Mi nn question e6aa5d 2014-10-15 2014-10-15 Medication nullFlavo Knippa d2 t76e51-3 [facility] 20:08:00 20:08:00 clarificat r Specialties 084-426 3-a l ion 7b7-b0jp97 Mi nn question 77f4a0 2014-10-15 2014-10-15 Medication nullFlavo Knippa 7f e3b0n9-b [facility] 20:08:00 20:08:00 clarificat r Specialties e69-40d 2-a l ion 86f-ea3f4e Mi nn question ef77fe 2014-10-15 2014-10-15 Medication nullFlavo Knippa 7a 14070c-4 [facility] 20:08:00 20:08:00 clarificat r Specialties 5ef-48f 2-b l ion 8j0-443781 Mi nn question 462b8d 2014-10-15 2014-10-15 Medication nullFlavo Knippa dd h26b3n-8 [facility] 20:08:00 20:08:00 clarificat r Specialties 902-4d4 e-a l ion 882-a602ca Mi nn question 2e61c9 2014-10-15 2014-10-15 Medication nullFlavo Knippa 71 68967o-i [facility] 20:08:00 20:08:00 clarificat r Specialties 53a-413 2-b l ion 1be-5e87ea Mi nn question 507f2b 2014-10-15 2014-10-15 Medication nullFlavo Knippa ea 46235m-r [facility] 20:08:00 20:08:00 clarificat r Specialties 9ba-47a b-b l ion c20-3d2e7v Mi nn question d478b6 2014-10-15 2014-10-15 Medication nullFlavo Knippa fa 35t041-f [facility] 20:08:00 20:08:00 clarificat r Specialties 1db-493 0-9 l ion n76-kg9337 Mi nn question [id number] 1528-08-24 2014-10-15 Medication nullFlavo Knippa 13 g8b7jo-a [facility] 20:08:00 20:08:00 clarificat r Specialties e4v-867 f-a l ion cc8-17ecfe Mi nn question cd9d1a 2014-10-15 2014-10-15 Medication nullFlavo Knippa ae k05520-0 [facility] 20:08:00 20:08:00 clarificat r Specialties 9be-41f 3-a l ion d00-9pq9ql Mi nn question a1cbc1 2014-10-15 2014-10-15 Medication nullFlavo Knippa 0c 327502-i [facility] 19:08:00 19:08:00 clarificat r Specialties 5be-439 f-8 l ion z36-970d50 Mi nn question 268815 7889-08-24 2014-10-15 Medication nullFlavo Knippa dc m87575-4 [facility] 19:08:00 19:08:00 clarificat r Specialties 374-4e5 b-b l ion 43b-c0d17d Mi nn question 31b38c 2014-10-15 2014-10-15 Medication nullFlavo Knippa 29 7xf3mf-e [facility] 19:08:00 19:08:00 clarificat r Specialties 64b-41c 5-a l ion 2v0-x5b8hg Mi nn question 2bbd87 2014-10-15 2014-10-15 Medication nullFlavo Knippa 22 68e0sl-o [facility] 19:08:00 19:08:00 clarificat r Specialties be3-4bd d-8 l ion 2k8-645gd1 Mi nn question 2e30ef 2014-10-15 2014-10-15 Medication nullFlavo Knippa 5a 4p0c76-s [facility] 19:08:00 19:08:00 clarificat r Specialties 241-41e b-a l ion bc8-68e965 Mi nn question 7iw467 2014-10-15 2014-10-15 Medication nullFlavo Knippa 86 m3183y-e [facility] 19:08:00 19:08:00 clarificat r Specialties 905-49b 9-b l ion 9m1-7316k2 Mi nn question 97l432 2014-10-15 2014-10-15 Medication nullFlavo Knippa ea ji5s9j-5 [facility] 19:08:00 19:08:00 clarificat r Specialties 62d-4af 1-a l ion 7p7-873uc3 Mi nn question 858ae6 2014-10-15 2014-10-15 Medication nullFlavo Knippa a2 2l9svj-3 [facility] 19:08:00 19:08:00 clarificat r Specialties 08e-485 5-8 l ion s96-217z86 Mi nn question 4a5dff 2014-10-15 2014-10-15 Medication nullFlavo Knippa 2b 3un1a0-k [facility] 19:08:00 19:08:00 clarificat r Specialties dcf-461 e-a l ion 4ce-2ef73c Mi nn question [id number] 2014-10-15 2014-10-15 Medication nullFlavo Knippa 71 5b04sy-v [facility] 19:08:00 19:08:00 clarificat r Specialties 847-46b e-a l ion ed9-eb24ee Mi nn question 3b8cfb 2014-10-15 2014-10-15 Medication nullFlavo Knippa ca p4585e-r [facility] 19:08:00 19:08:00 clarificat r Specialties 0f4-18p 9-a l ion 9n1-bt2any Mi nn question 177f62 2014-10-15 2014-10-15 Medication nullFlavo Knippa 19 v9137z-2 [facility] 19:08:00 19:08:00 clarificat r Specialties r7d-61t 7-9 l ion r91-v819mg Mi nn question 7bde3d 2014-10-15 2014-10-15 Medication nullFlavo Knippa 2d 3676ca-5 [facility] 19:08:00 19:08:00 clarificat r Specialties 757-495 7-a l ion 1h2-441f3e Mi nn question 381630 7095-08-24 2014-10-15 Medication nullFlavo Knippa a8 12g148-d [facility] 19:08:00 19:08:00 clarificat r Specialties cf1-4bd 1-b l ion b85-37e974 Mi nn question ni4765 2014-10-15 2014-10-15 Medication nullFlavo Knippa 0c 2pk415-3 [facility] 19:08:00 19:08:00 clarificat r Specialties b59-4e8 6-8 l ion a20-k6i7va Mi nn question [id number] 2014-10-15 2014-10-15 Medication nullFlavo Knippa 05 895u80-8 [facility] 19:08:00 19:08:00 clarificat r Specialties ae0-43e 4-a l ion 0k7-h6f9s6 Mi nn question 3b4a44 2014-10-15 2014-10-15 Medication nullFlavo Knippa a6 3x5946-t [facility] 19:08:00 19:08:00 clarificat r Specialties 486-4a2 a-b l ion 73c-015afc Mi nn question 4qx218 2014-10-15 2014-10-15 Medication nullFlavo Knippa 13 7934t9-8 [facility] 19:08:00 19:08:00 clarificat r Specialties 680-437 7-a l ion 1n6-648749 Mi nn question 320a7b 2014-10-15 2014-10-15 Medication nullFlavo Knippa cc 87364c-1 [facility] 19:08:00 19:08:00 clarificat r Specialties 6fe-4bf 2-a l ion 095-5w0733 Mi nn question vr2998 2014-10-15 2014-10-15 Medication nullFlavo Knippa 02 0wbn69-9 [facility] 19:08:00 19:08:00 clarificat r Specialties 89f-4dc 2-a l ion 052-b7b78f Mi nn question 6dce99 2014-10-15 2014-10-15 Medication nullFlavo Knippa 30 ul7uu8-p [facility] 19:08:00 19:08:00 clarificat r Specialties a16-4fe a-a l ion da6-238afe Mi nn question mls480 2014-10-11 2014-10-11 Test nullFlavo Knippa 9d9fb f81-3 [facility] 15:06:00 15:06:00 results r Specialties 872-486a-9 l 344-15770a [facility] nn 00de0a 2014-10-11 2014-10-11 Test nullFlavo Knippa 6deb6 6d1-9 [facility] 15:06:00 15:06:00 results r Specialties 5z0-1n95-z l b20-f3s847 [facility] nn 151339 2440-08-20 2014-10-11 Test nullFlavo Knippa 64162 8b0-3 [facility] 15:06:00 15:06:00 results r Specialties 71c-4a72-b l 4t2-999338 [facility] nn d3bb01 2014-10-11 2014-10-11 Test nullFlavo Knippa abb00 3c9-c [facility] 15:06:00 15:06:00 results r Specialties 198-49b8-b l 673-4wv755 [facility] nn 425da3 2014-10-11 2014-10-11 Test nullFlavo Knippa 2efd5 ad6-1 [facility] 15:06:00 15:06:00 results r Specialties g94-79q6-9 l 93e-8ef30a [facility] nn db52c1 2014-10-11 2014-10-11 Test nullFlavo Knippa 0f0c0 59c-a [facility] 15:06:00 15:06:00 results r Specialties fa5-4e8b-8 l 646-150626 [facility] nn cc8b4a 2014-10-11 2014-10-11 Test nullFlavo Knippa aabd4 74c-3 [facility] 15:06:00 15:06:00 results r Specialties katiuska-4ea7-a l 50d-2067ca [facility] nn e418d5 2014-10-11 2014-10-11 Test nullFlavo Knippa c9f76 dc3-d [facility] 15:06:00 15:06:00 results r Specialties r08-7728-1 l 914-7df04b [facility] nn 886a39 2014-10-11 2014-10-11 Test nullFlavo Knippa 37f17 093-8 [facility] 15:06:00 15:06:00 results r Specialties j32-46y0-1 l 76c-8s1143 Im nn 8ab0f4 2014-10-11 2014-10-11 Test nullFlavo Knippa 44639 b90-7 [facility] 15:06:00 15:06:00 results r Specialties 0k9-7286-s l 03e-m9o651 Mi nn n96209 2014-10-11 2014-10-11 Test nullFlavo Knippa d7631 085-5 [facility] 15:06:00 15:06:00 results r Specialties f78-7cp8-6 l 65d-jwy783 Mi nn 102931 7972-08-20 2014-10-11 Test nullFlavo Knippa e2126 a3c-2 [facility] 15:06:00 15:06:00 results r Specialties 301-400b-b l 8ae-2c6eae Mi nn 7c6f59 2014-10-11 2014-10-11 Test nullFlavo Knippa 90b61 351-8 [facility] 15:06:00 15:06:00 results r Specialties 68c-4dcc-a l 702-23f0e4 Mi nn 0e66ee 2014-10-11 2014-10-11 Test nullFlavo Knippa 81829 597-b [facility] 15:06:00 15:06:00 results r Specialties efd-4421-8 l c00-0eb722 Mi nn 9d5dc8 2014-10-11 2014-10-11 Test nullFlavo Knippa 1210c 6b1-4 [facility] 15:06:00 15:06:00 results r Specialties 520-4c73-8 l 65d-1511b0 Mi nn 5a12ce 2014-10-11 2014-10-11 Test nullFlavo Knippa ba9f4 e47-8 [facility] 15:06:00 15:06:00 results r Specialties z12-63kh-d l 1bf-02aae5 Mi nn a62c92 2014-10-11 2014-10-11 Test nullFlavo Knippa 73905 140-4 [facility] 15:06:00 15:06:00 results r Specialties r71-8s29-m l 1y6-eow5wg Mi nn 6d83e7 2014-10-11 2014-10-11 Test nullFlavo Knippa c77f4 790-d [facility] 15:06:00 15:06:00 results r Specialties 8l3-5ic8-y l 74f-2636c7 Mi nn 3ecd35 2014-10-11 2014-10-11 Test nullFlavo Knippa e2295 6bf-9 [facility] 15:06:00 15:06:00 results r Specialties 8ad-43a5-9 l 437-ca94fd Mi nn u2162x 2014-10-11 2014-10-11 Test nullFlavo Knippa 728f6 ff5-0 [facility] 15:06:00 15:06:00 results r Specialties 6s0-27rp-p l 5u5-m3186y Mi nn j05216 2014-10-11 2014-10-11 Test nullFlavo Knippa 88d28 4a0-6 [facility] 15:06:00 15:06:00 results r Specialties 95b-4fa9-b l 36c-i1738c Mi nn 1f47ba 2014-10-11 2014-10-11 Test nullFlavo Knippa ca81f 21c-1 [facility] 15:06:00 15:06:00 results r Specialties ebc-4ea4-a l 4b9-zf12nc Mi nn cfa65b 2014-10-11 2014-10-11 Test nullFlavo Knippa 2b05e 004-6 [facility] 15:06:00 15:06:00 results r Specialties g98-70s8-m l t70-g544d2 Mi nn 97644g 2014-10-11 2014-10-11 Test nullFlavo Knippa d8fdd 779-e [facility] 14:06:00 14:06:00 results r Specialties 6aa-4c04-9 l eff-d5a4dc Mi nn 224953 5367-08-20 2014-10-11 Test nullFlavo Knippa 33a8d fc2-a [facility] 14:06:00 14:06:00 results r Specialties 453-4fd1-b l z6d-e05rp0 Mi nn 30a97f 2014-10-11 2014-10-11 Test nullFlavo Knippa 09366 f86-d [facility] 14:06:00 14:06:00 results r Specialties 80d-4124-b l e9d-1w9w5u Mi nn ty2195 2014-10-11 2014-10-11 Test nullFlavo Knippa b2119 f64-3 [facility] 14:06:00 14:06:00 results r Specialties 327-4d14-b l s73-61441o Mi nn 66fef2 2014-10-11 2014-10-11 Test nullFlavo Knippa 18aa9 12d-b [facility] 14:06:00 14:06:00 results r Specialties eb7-4623-9 l q08-jc1w3b Mi nn 2f14c3 2014-10-11 2014-10-11 Test nullFlavo Knippa f7816 5ff-0 [facility] 14:06:00 14:06:00 results r Specialties 1i4-8720-l l 8bb-78f84c Mi nn 71fdba 2014-10-11 2014-10-11 Test nullFlavo Knippa dd1f7 04b-9 [facility] 14:06:00 14:06:00 results r Specialties 171-45dc-9 l 030-c4e25f Mi nn a73208 2014-10-11 2014-10-11 Test nullFlavo Knippa 826ed 51b-b [facility] 14:06:00 14:06:00 results r Specialties fc3-43ad-b l 8bc-2886fb Mi nn e8bebb 2014-10-11 2014-10-11 Test nullFlavo Knippa 8279a fda-d [facility] 14:06:00 14:06:00 results r Specialties 827-47b6-9 l 640-96j985 Mi nn b0cb46 2014-10-11 2014-10-11 Test nullFlavo Knippa 95019 fc0-2 [facility] 14:06:00 14:06:00 results r Specialties 4da-46ba-a l 938-fa4a43 Mi nn 5dh919 2014-10-11 2014-10-11 Test nullFlavo Knippa e3432 64c-8 [facility] 14:06:00 14:06:00 results r Specialties o02-1o67-9 l 699-33214t Mi nn ad0d31 2014-10-11 2014-10-11 Test nullFlavo Knippa 2e03f b91-d [facility] 14:06:00 14:06:00 results r Specialties 6ab-49df-9 l 7fe-85ccac Mi nn 541594 6025-08-20 2014-10-11 Test nullFlavo Knippa 2ff58 041-d [facility] 14:06:00 14:06:00 results r Specialties 7o4-2sih-3 l 867-0mv424 Mi nn 7526ac 2014-10-11 2014-10-11 Test nullFlavo Knippa 25896 bab-b [facility] 14:06:00 14:06:00 results r Specialties a25-20f7-2 l 7u3-e5085z Mi nn b0k967 2014-10-11 2014-10-11 Test nullFlavo Knippa c7184 e68-5 [facility] 14:06:00 14:06:00 results r Specialties dfc-49d8-a l e21-7jj22t [facility] nn 04583h 2014-10-11 2014-10-11 Test nullFlavo Knippa a39e4 f8b-c [facility] 14:06:00 14:06:00 results r Specialties 191-4382-8 l bed-0a7440 [facility] nn a813cd 2014-10-11 2014-10-11 Test nullFlavo Knippa 1b637 0c6-6 [facility] 14:06:00 14:06:00 results r Specialties 8m4-30i3-i l v16-qp46j8 [facility] nn d792a6 2014-10-11 2014-10-11 Test nullFlavo Knippa 98257 83e-d [facility] 14:06:00 14:06:00 results r Specialties c19-398h-6 l r2t-80u9nj Mi nn 36501x 2014-10-11 2014-10-11 Test nullFlavo Knippa c519d e1a-4 [facility] 14:06:00 14:06:00 results r Specialties 3g9-5a06-h l fcd-7b6199 Mi nn 48edec 2014-10-11 2014-10-11 Test nullFlavo Knippa 68389 a10-7 [facility] 14:06:00 14:06:00 results r Specialties 5g6-7p90-h l 5s2-16u97p Mi nn 1a58f8 2014-10-11 2014-10-11 Test nullFlavo Knippa 6bef1 bab-4 [facility] 14:06:00 14:06:00 results r Specialties 5t9-4p53-7 l 279-e9ab08 Mi nn 0c3bfb 2014-09-26 2014-09-26 rq nullFlavo Knippa 5d126 219-a [facility] 20:01:00 20:01:00 c/b---noti r Specialties katiuska-483 6-9 l terry from 394-f7a59d [facility] d8c62c 2014-09-26 2014-09-26 rq nullFlavo Knippa 19287 651-d [facility] 20:01:00 20:01:00 c/b---noti r Specialties 7k5-865 4-9 l terry from 33d-3ebfdf [facility] d912b1 2014-09-26 2014-09-26 rq nullFlavo Knippa 01455 bca-f [facility] 20:01:00 20:01:00 c/b---noti r Specialties d0o-097 4-9 l terry from s51-20886d [facility] 0q6336 2014-09-26 2014-09-26 rq nullFlavo Knippa 0f4e2 f4e-b [facility] 20:01:00 20:01:00 c/b---noti r Specialties 90a-49f a-9 l terry from 40d-a4f6d9 [facility] 3f0c0d 2014-09-26 2014-09-26 rq nullFlavo Knippa ce94f 2ae-4 [facility] 20:01:00 20:01:00 c/b---noti r Specialties 000-4ed 3-9 l terry from 340-16c6ad [facility] 88fcfc 2014-09-26 2014-09-26 rq nullFlavo Knippa 57d95 bda-0 [facility] 20:01:00 20:01:00 c/b---noti r Specialties 4eb-4ca 8-a l terry from 989-w51836 [facility] 8i340p 2014-09-26 2014-09-26 rq nullFlavo Knippa 57915 3dd-1 [facility] 20:01:00 20:01:00 c/b---noti r Specialties a57-4ec 9-9 l terry from 2k1-mqa057 [facility] 0956fe 2014-09-26 2014-09-26 rq nullFlavo Knippa be3f6 615-3 [facility] 20:01:00 20:01:00 c/b---noti r Specialties 3r1-1n8 9-8 l terry from 797-89z847 [facility] 516980 2049-08-05 2014-09-26 rq nullFlavo Knippa 372c2 e33-7 [facility] 20:01:00 20:01:00 c/b---noti r Specialties 2u3-780 1-a l terry from g92-y32569 [facility] v9196f 2014-09-26 2014-09-26 rq nullFlavo Knippa c8dfb 6bc-e [facility] 20:01:00 20:01:00 c/b---noti r Specialties 73b-4bb 1-a l terry from 151-h7v127 [facility] 20bb82 2014-09-26 2014-09-26 rq nullFlavo Knippa 9fc0d 3d8-0 [facility] 20:01:00 20:01:00 c/b---noti r Specialties 531-49a 0-9 l terry from d80-04wlbo [facility] 8f600o 2014-09-26 2014-09-26 rq nullFlavo Knippa e3b4e a34-4 [facility] 20:01:00 20:01:00 c/b---noti r Specialties ad2-4d5 8-9 l terry from g1j-4o6d17 [facility] ia5720 2014-09-26 2014-09-26 rq nullFlavo Knippa 49fb5 cd1-7 [facility] 20:01:00 20:01:00 c/b---noti r Specialties a37-4ad 1-8 l terry from i45-9o5l0g [facility] 7eac1c 2014-09-26 2014-09-26 rq nullFlavo Knippa 3c61a 8b2-b [facility] 20:01:00 20:01:00 c/b---noti r Specialties 8i4-23c 1-9 l terry from y24-315u4f [facility] 8f3fc1 2014-09-26 2014-09-26 rq nullFlavo Knippa 8422b bd3-b [facility] 20:01:00 20:01:00 c/b---noti r Specialties 6k4-105 9-8 l terry from 0g9-051167 [facility] 92cd01 2014-09-26 2014-09-26 rq nullFlavo Knippa ff398 267-3 [facility] 20:01:00 20:01:00 c/b---noti r Specialties 340-4d8 6-9 l terry from fda-c519b9 [facility] d066b4 2014-09-26 2014-09-26 rq nullFlavo Knippa 110a9 628-d [facility] 20:01:00 20:01:00 c/b---noti r Specialties ac5-416 2-8 l terry from r3h-6460y1 [facility] 7f5cda 2014-09-26 2014-09-26 rq nullFlavo Knippa 07f4a b65-7 [facility] 20:01:00 20:01:00 c/b---noti r Specialties 259-464 d-a l terry from 996-n43518 [facility] 522444 4242-08-05 2014-09-26 rq nullFlavo Knippa b1995 7c9-1 [facility] 20:01:00 20:01:00 c/b---noti r Specialties fb9-4e8 9-b l terry from 099-1f1e5c [facility] 2720b9 2014-09-26 2014-09-26 rq nullFlavo Knippa 058a8 cc7-f [facility] 20:01:00 20:01:00 c/b---noti r Specialties 9ef-4b8 5-8 l terry from bba-16d6bc [facility] eace2c 2014-09-26 2014-09-26 rq nullFlavo Knippa 22844 416-5 [facility] 20:01:00 20:01:00 c/b---noti r Specialties 03f-454 d-8 l terry from 356-xr158v [facility] 963bf0 2014-09-26 2014-09-26 rq nullFlavo Knippa 0537e 6c9-3 [facility] 20:01:00 20:01:00 c/b---noti r Specialties 464-4cb 6-8 l terry from h00-gb301f [facility] 271b5d 2014-09-26 2014-09-26 rq nullFlavo Knippa 248b9 ce3-f [facility] 20:01:00 20:01:00 c/b---noti r Specialties 676-4cb 5-a l terry from 6q0-s543q1 [facility] 9tz806 2014-09-26 2014-09-26 rq nullFlavo Knippa 4eb69 31a-9 [facility] 19:01:00 19:01:00 c/b---noti r Specialties 6cc-406 b-a l terry from s35-04h2l7 [facility] 34882c 2014-09-26 2014-09-26 rq nullFlavo Knippa 3dddb 17e-b [facility] 19:01:00 19:01:00 c/b---noti r Specialties 45f-499 e-a l terry from g79-26v0m9 [facility] c073a9 2014-09-26 2014-09-26 rq nullFlavo Knippa 715b3 0b7-4 [facility] 19:01:00 19:01:00 c/b---noti r Specialties 4c4-174 2-a l 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 [facility] 117c7a 2014-09-26 2014-09-26 rq nullFlavo Knippa 31557 094-3 [facility] 19:01:00 19:01:00 c/b---noti r Specialties c38-4ab 6-9 l terry from 548-u1y998 [facility] bee0e6 2014-09-26 2014-09-26 rq nullFlavo Knippa 66ff0 76e-9 [facility] 19:01:00 19:01:00 c/b---noti r Specialties e43-461 1-8 l terry from h68-z875h9 [facility] 63a3ec 2014-09-26 2014-09-26 rq nullFlavo Knippa 878b4 e9d-4 [facility] 19:01:00 19:01:00 c/b---noti r Specialties 0cf-432 3-9 l terry from v19-79hn75 [facility] 187210 5419-08-05 2014-09-26 rq nullFlavo Knippa 193c4 56c-0 [facility] 19:01:00 19:01:00 c/b---noti r Specialties 879-41e 3-b l terry from ecc-9ea13c [facility] 923a1e 2014-09-26 2014-09-26 rq nullFlavo Knippa d7900 137-b [facility] 19:01:00 19:01:00 c/b---noti r Specialties 021-443 3-8 l terry from 8s8-94eqs7 [facility] i5u547 2014-09-26 2014-09-26 rq nullFlavo Knippa a0842 c0d-7 [facility] 19:01:00 19:01:00 c/b---noti r Specialties 1z0-072 8-a l terry from 6df-a3fa87 [facility] f99f6b 2014-09-26 2014-09-26 rq nullFlavo Knippa ad1c8 04c-e [facility] 19:01:00 19:01:00 c/b---noti r Specialties b67-410 6-8 l terry from e55-3w6805 [facility] 53ddc6 2014-09-26 2014-09-26 rq nullFlavo Knippa 9a6c1 897-b [facility] 19:01:00 19:01:00 c/b---noti r Specialties j1q-8w1 7-9 l terry from [id number] [facility] e1b23c 2014-09-26 2014-09-26 rq nullFlavo Knippa 0695e eab-0 [facility] 19:01:00 19:01:00 c/b---noti r Specialties 18b-4e3 2-b l terry from c42-2gsnb4 [facility] d7cdb7 2014-09-26 2014-09-26 rq nullFlavo Knippa 36781 1e9-a [facility] 19:01:00 19:01:00 c/b---noti r Specialties eb3-46d 6-8 l terry from 507-6i1240 [facility] 798505 4472-08-05 2014-09-26 rq nullFlavo Knippa 6c830 3de-d [facility] 19:01:00 19:01:00 c/b---noti r Specialties 626-493 e-a l terry from b8t-2q1404 [facility] 112efd 2014-09-26 2014-09-26 rq nullFlavo Knippa 9332d 45a-7 [facility] 19:01:00 19:01:00 c/b---noti r Specialties 476-408 d-b l terry from 1i9-0j3a9t [facility] 685f9e 2014-09-26 2014-09-26 rq nullFlavo Knippa c9ec1 d9b-f [facility] 19:01:00 19:01:00 c/b---noti r Specialties g4g-74b a-b l terry from y6p-30gpn4 [facility] 2l846z 2014-09-26 2014-09-26 rq nullFlavo Knippa b2454 c15-7 [facility] 19:01:00 19:01:00 c/b---noti r Specialties 0q3-686 9-a l terry from o31-q6lyaa [facility] bd5d62 2014-09-26 2014-09-26 rq nullFlavo Knippa e27c8 608-c [facility] 19:01:00 19:01:00 c/b---noti r Specialties 19e-47c 5-9 l terry from 327-523747 [facility] jy4878 2014-09-26 2014-09-26 rq nullFlavo Knippa 01fd6 d22-3 [facility] 19:01:00 19:01:00 c/b---noti r Specialties fa6-47c 3-b l terry from 43d-06d92b [facility] 724f3c 2014-09-26 2014-09-26 rq nullFlavo Knippa 83ef7 003-1 [facility] 19:01:00 19:01:00 c/b---noti r Specialties a11-446 6-8 l terry from 4i6-669l7z [facility] 8e4069 2014-09-26 2014-09-26 rq nullFlavo Knippa 65a00 85d-b [facility] 19:01:00 19:01:00 c/b---noti r Specialties 179-4bd 5-b l terry from 2fd-15c9f7 [facility] vov288 2014-09-13 2014-09-13 [place] nullFlavo Knippa 06 y07414-i [facility] 14:50:00 14:50:00 Not r Specialties fe0-427a-a l Covered 929-f68c25 Mi nn wk3626 2014-09-13 2014-09-13 [place] nullFlavo Knippa a8 q4j97b-2 [facility] 14:50:00 14:50:00 Not r Specialties 370-4ef2-a l Covered n30-2874q2 Mi nn 8p6211 2014-09-13 2014-09-13 [place] nullFlavo Knippa e9 3j37o9-7 [facility] 14:50:00 14:50:00 Not r Specialties 5m5-84d7-4 l Covered 91f-3s5603 Mi nn d942c1 2014-09-13 2014-09-13 [place] nullFlavo Knippa 23 3aa187-b [facility] 14:50:00 14:50:00 Not r Specialties 3m1-69a7-j l Covered l70-j1c22c Mi nn 43345s 2014-09-13 2014-09-13 [place] nullFlavo Knippa 99 89437y-8 [facility] 14:50:00 14:50:00 Not r Specialties 476-49a1-9 l Covered 9t5-659613 Mi nn 0qv250 2014-09-13 2014-09-13 [place] nullFlavo Knippa 2d 059453-6 [facility] 14:50:00 14:50:00 Not r Specialties 4z3-42u4-6 l Covered 204-lu5699 Mi nn f398c0 2014-09-13 2014-09-13 [place] nullFlavo Knippa 30 k8jc6x-v [facility] 14:50:00 14:50:00 Not r Specialties df9-412c-a l Covered z72-936i3s Mi nn br538q 2014-09-13 2014-09-13 [place] nullFlavo Knippa fa h1ie2a-t [facility] 14:50:00 14:50:00 Not r Specialties 6be-4578-a l Covered o2n-3u0568 Mi nn f172a0 2014-09-13 2014-09-13 [place] nullFlavo Knippa e5 r1s03h-s [facility] 14:50:00 14:50:00 Not r Specialties g8e-715d-t l Covered 384-91419b Mi nn 94fcd0 2014-09-13 2014-09-13 [place] nullFlavo Knippa 6a 0x2s9e-9 [facility] 14:50:00 14:50:00 Not r Specialties 1fd-4e0a-8 l Covered 7l6-93u405 Mi nn ac3a25 2014-09-13 2014-09-13 [place] nullFlavo Knippa 78 59m3y3-9 [facility] 14:50:00 14:50:00 Not r Specialties 864-4332-b l Covered 88f-e980e0 Mi nn 9a00cc 2014-09-13 2014-09-13 [place] nullFlavo Knippa 4a 1xk756-7 [facility] 14:50:00 14:50:00 Not r Specialties 085-4688-8 l Covered anjana-29b8bf Mi nn 319948 9907-07-23 2014-09-13 [place] nullFlavo Knippa bc r3o723-s [facility] 14:50:00 14:50:00 Not r Specialties 08a-44a7-b l Covered e2q-m2a69a Mi nn 5cc80f 2014-09-13 2014-09-13 [facility] 5d 935786-r [facility] 14:50:00 14:50:00 Not r Specialties 320-4b00-9 l Covered 31f-44be10 Mi nn z8n961 2014-09-13 2014-09-13 [facility] 5e 6d620p-z [facility] 14:50:00 14:50:00 Not r Specialties 940-4b7b-8 l Covered 6bd-90a539 Mi nn dea21d 2014-09-13 2014-09-13 [facility] 08 5a700v-b [facility] 14:50:00 14:50:00 Not r Specialties 7i8-1586-f l Covered ec6-5559e9 Mi nn 5me799 2014-09-13 2014-09-13 [facility] 98 h712ee-6 [facility] 14:50:00 14:50:00 Not r Specialties 760-4eed-a l Covered de8-4su650 Mi nn 64p250 2014-09-13 2014-09-13 [facility] 5e uknw85-a [facility] 14:50:00 14:50:00 Not r Specialties 4fd-4559-8 l Covered 5r8-0ant13 Mi nn 4e9c6e 2014-09-13 2014-09-13 [facility] 38 864302-6 [facility] 14:50:00 14:50:00 Not r Specialties y2j-1t62-w l Covered 513-1fd1e3 Mi nn 3ecac8 2014-09-13 2014-09-13 [facility] 14 e0622a-1 [facility] 14:50:00 14:50:00 Not r Specialties 12d-497d-b l Covered 07d-3d2215 Mi nn d5535s 2014-09-13 2014-09-13 [facility] a7 5c62cc-c [facility] 14:50:00 14:50:00 Not r Specialties 186-48d3-9 l Covered m26-dog474 Mi nn 6l4995 2014-09-13 2014-09-13 [facility] 42 62j97t-8 [facility] 14:50:00 14:50:00 Not r Specialties 644-494e-9 l Covered 901-f366df Mi nn 18l491 2014-09-13 2014-09-13 [facility] dc b15x34-r [facility] 14:50:00 14:50:00 Not r Specialties df5-4cb6-a l Covered r6a-28nr58 Mi nn 7fs562 2014-09-13 2014-09-13 [facility] 24 8y5bs3-8 [facility] 13:50:00 13:50:00 Not r Specialties 1ea-4b99-a l Covered 6o8-5465zj Mi nn 1s817p 2014-09-13 2014-09-13 [facility] bf 20babf-d [facility] 13:50:00 13:50:00 Not r Specialties 358-458c-8 l Covered k36-1d4k14 Mi nn 666969 5032-07-23 2014-09-13 [facility] a6 3460b7-m [facility] 13:50:00 13:50:00 Not r Specialties q6k-344p-0 l Covered v38-635ds3 Mi nn a7155h 2014-09-13 2014-09-13 [facility] bf 0qvb2t-4 [facility] 13:50:00 13:50:00 Not r Specialties b56-8y72-m l Covered aec-f0bdfe Mi nn c556e1 2014-09-13 2014-09-13 [facility] 04 5dcefc-a [facility] 13:50:00 13:50:00 Not r Specialties 7x2-7xiw-t l Covered 99f-98cc71 Mi nn 7p185g 2014-09-13 2014-09-13 [facility] 71 et69n9-2 [facility] 13:50:00 13:50:00 Not r Specialties 835-41c0-a l Covered 39e-994f40 Mi nn 1af6bf 2014-09-13 2014-09-13 [facility] 92 9772ba-d [facility] 13:50:00 13:50:00 Not r Specialties 5g2-63bq-8 l Covered 78e-w5n958 Mi nn 097d09 2014-09-13 2014-09-13 [facility] c7 fm248s-6 [facility] 13:50:00 13:50:00 Not r Specialties 4j7-610v-k l Covered 55f-n0j653 Mi nn 508414 9722-07-23 2014-09-13 [facility] 87 29c671-5 [facility] 13:50:00 13:50:00 Not r Specialties ddf-4711-9 l Covered m29-05s477 Mi nn e775c9 2014-09-13 2014-09-13 [facility] 82 6g21gc-6 [facility] 13:50:00 13:50:00 Not r Specialties bca-4e59-9 l Covered 299-435de2 Mi nn 2cd1b9 2014-09-13 2014-09-13 [facility] be 512k30-6 [facility] 13:50:00 13:50:00 Not r Specialties 67e-4da3-9 l Covered u27-8021uo Mi nn e95dce 2014-09-13 2014-09-13 [facility] e1 23ea21-e [facility] 13:50:00 13:50:00 Not r Specialties 4b6-383s-b l Covered 84e-d5095f Mi nn 08f0e9 2014-09-13 2014-09-13 [facility] 5d j46vm6-t [facility] 13:50:00 13:50:00 Not r Specialties i6f-16x7-3 l Covered 285-18f9ef Mi nn 446c86 2014-09-13 2014-09-13 [facility] b6 cbfce3-0 [facility] 13:50:00 13:50:00 Not r Specialties s0g-1h34-s l Covered 2i6-r69350 Mi nn 9ebdcf 2014-09-13 2014-09-13 [facility] 2d 8h3371-6 [facility] 13:50:00 13:50:00 Not r Specialties u5s-0ebn-4 l Covered n6z-5i55cy Mi nn db0d9a 2014-09-13 2014-09-13 [facility] 84 7385b4-2 [facility] 13:50:00 13:50:00 Not r Specialties 3w1-2n09-o l Covered 576-1b89fd Mi nn 77b974 2014-09-13 2014-09-13 [facility] 49 z87mqu-t [facility] 13:50:00 13:50:00 Not r Specialties 274-4c7a-a l Covered a05-1480dh Mi nn dd54e4 2014-09-13 2014-09-13 [facility] 19 894708-o [facility] 13:50:00 13:50:00 Not r Specialties 6fe-44bf-a l Covered d8z-2d5722 Mi nn c63ac2 2014-09-13 2014-09-13 [facility] 6f 3fg66f-j [facility] 13:50:00 13:50:00 Not r Specialties 69e-4487-9 l Covered 262-86h561 Mi nn r0970o 2014-09-13 2014-09-13 [facility] ff d8lfni-9 [facility] 13:50:00 13:50:00 Not r Specialties 788-492c-9 l Covered j93-5bj75s Mi nn 8nh388 2014-09-13 2014-09-13 [facility] 4b x2k8g7-e [facility] 13:50:00 13:50:00 Not r Specialties 1eb-4978-9 l Covered 187-ff2e7a Im nn c3adec 2014-09-13 2014-09-13 [facility] 04 x73353-5 [facility] 13:50:00 13:50:00 Not r Specialties c98-1e89-4 l Covered 302-0z6075 Mi nn b84b71 2014-09-13 2014-09-13 [facility] 2b awi193-8 [facility] 13:50:00 13:50:00 Not r Specialties bf0-4a27-8 l Covered da5-052006 Mi nn 5f583l 2014-09-12 2014-09-12 [facility] a6192 612-6 [facility] 14:45:00 14:45:00 Results r Specialties 39f-44c1-8 l 9cc-8194c1 Mi nn 5b91fd 2014-09-12 2014-09-12 [facility] ef90a 583-2 [facility] 14:45:00 14:45:00 Results r Specialties o57-0426-2 l z2x-cny8c5 Mi nn da83fb 2014-09-12 2014-09-12 [facility] e7a68 1e4-e [facility] 14:45:00 14:45:00 Results r Specialties h47-29bj-g l cf2-75adee Mi nn f131e5 2014-09-12 2014-09-12 [facility] 5fb4b 50f-4 [facility] 14:45:00 14:45:00 Results r Specialties 3x2-452s-e l dc4-3edce9 Mi nn 8b1262 2014-09-12 2014-09-12 DEXA nullFlavo Knippa 5218e 600-b [facility] 14:45:00 14:45:00 Results r Specialties fa1-4efd-9 l g72-643x00 Mi nn mb637i 2014-09-12 2014-09-12 DEXA nullFlavo Knippa 00b21 762-d [facility] 14:45:00 14:45:00 Results r Specialties 168-4a17-b l cfe-4dbc1b Mi nn d181e2 2014-09-12 2014-09-12 DEXA nullFlavo Knippa d1265 4ee-3 [facility] 14:45:00 14:45:00 Results r Specialties fa8-4b9f-8 l 466-740d80 Mi nn z5632n 2014-09-12 2014-09-12 DEXA nullFlavo Knippa 67dc8 32d-f [facility] 14:45:00 14:45:00 Results r Specialties j8g-5521-l l r36-555018 Mi nn 0e0b5a 2014-09-12 2014-09-12 DEXA nullFlavo Knippa 385db ac6-e [facility] 14:45:00 14:45:00 Results r Specialties 762-4440-9 l 533-1u853u Mi nn 13925b 2014-09-12 2014-09-12 DEXA nullFlavo Knippa e69af 3c9-b [facility] 14:45:00 14:45:00 Results r Specialties 5n3-11j8-l l 1ec-1baa1a Mi nn bhw746 2014-09-12 2014-09-12 DEXA nullFlavo Knippa cbc71 28b-8 [facility] 14:45:00 14:45:00 Results r Specialties 89e-4aae-9 l 0dc-09b0c6 Mi nn 9302c3 2014-09-12 2014-09-12 DEXA nullFlavo Knippa ac089 c60-7 [facility] 14:45:00 14:45:00 Results r Specialties 2cb-46f2-9 l c1c-450y8j Mi nn c7c4e8 2014-09-12 2014-09-12 DEXA nullFlavo Knippa ccdc9 559-0 [facility] 14:45:00 14:45:00 Results r Specialties 47e-4e43-b l d7r-7u16b3 Mi nn 2cb5b6 2014-09-12 2014-09-12 DEXA nullFlavo Knippa 2c202 e05-0 [facility] 14:45:00 14:45:00 Results r Specialties 290-4cc0-8 l 508-7c70bd Mi nn 7f4a0e 2014-09-12 2014-09-12 DEXA nullFlavo Knippa aadb8 073-f [facility] 14:45:00 14:45:00 Results r Specialties aaf-44e4-9 l 698-5ec49b Mi nn c6ed13 2014-09-12 2014-09-12 DEXA nullFlavo Knippa f1a7b de3-a [facility] 14:45:00 14:45:00 Results r Specialties 6df-4a31-9 l 045-c4x016 Mi nn 2q3333 2014-09-12 2014-09-12 DEXA nullFlavo Knippa dc594 d1c-c [facility] 14:45:00 14:45:00 Results r Specialties p6a-9744-6 l 438-4cz474 Mi nn 0ew740 2014-09-12 2014-09-12 DEXA nullFlavo Knippa 4b68f ef2-1 [facility] 14:45:00 14:45:00 Results r Specialties u16-2li4-w l z74-3yk1a7 Mi nn fcbc4d 2014-09-12 2014-09-12 DEXA nullFlavo Knippa 3cc09 153-c [facility] 14:45:00 14:45:00 Results r Specialties 448-4a34-b l 86b-2i020a Mi nn ce2d82 2014-09-12 2014-09-12 DEXA nullFlavo Knippa 7e699 03d-7 [facility] 14:45:00 14:45:00 Results r Specialties bc2-4df4-a l 7d7-a2169m Mi nn q0447r 2014-09-12 2014-09-12 DEXA nullFlavo Knippa a99bf 471-7 [facility] 14:45:00 14:45:00 Results r Specialties 11a-4e4a-8 l 6a0-932480 Mi nn fb2a00 2014-09-12 2014-09-12 DEXA nullFlavo Knippa 491bd e2d-0 [facility] 14:45:00 14:45:00 Results r Specialties 07b-40f1-b l e94-016538 Mi nn 9h784w 2014-09-12 2014-09-12 DEXA nullFlavo Knippa 21e23 36c-0 [facility] 14:45:00 14:45:00 Results r Specialties 3h6-3387-5 l a28-95k473 Mi nn 6ec7ee 2014-09-12 2014-09-12 DEXA nullFlavo Knippa 9cb66 e2c-8 [facility] 13:45:00 13:45:00 Results r Specialties 37d-46cb-a l c18-f95h87 Mi nn b9ce0a 2014-09-12 2014-09-12 DEXA nullFlavo Knippa 3e023 750-5 [facility] 13:45:00 13:45:00 Results r Specialties 1q1-1s2f-f l 6ef-399011 Mi nn 7l3508 2014-09-12 2014-09-12 DEXA nullFlavo Knippa 4487b 804-5 [facility] 13:45:00 13:45:00 Results r Specialties 3p1-85wx-6 l 4ca-6fd3d7 Mi nn pg3980 2014-09-12 2014-09-12 DEXA nullFlavo Knippa 2310e 209-1 [facility] 13:45:00 13:45:00 Results r Specialties g32-9ak2-9 l p24-30y0j5 Mi nn 3a6b3b 2014-09-12 2014-09-12 DEXA nullFlavo Knippa 1d88b 56b-d [facility] 13:45:00 13:45:00 Results r Specialties 2g2-9974-i l 61a-71ce16 Mi nn 6b9bc0 2014-09-12 2014-09-12 DEXA nullFlavo Knippa c9d39 872-7 [facility] 13:45:00 13:45:00 Results r Specialties 680-4681-8 l c3d-60e4b6 Mi nn 4e9ba4 2014-09-12 2014-09-12 DEXA nullFlavo Knippa f79c7 b35-8 [facility] 13:45:00 13:45:00 Results r Specialties 101-4c60-b l 31f-9febe9 Mi nn 4l3297 2014-09-12 2014-09-12 DEXA nullFlavo Knippa 92614 ce8-a [facility] 13:45:00 13:45:00 Results r Specialties 182-4f7d-8 l f7u-4c3l09 Mi nn 6i1020 2014-09-12 2014-09-12 DEXA nullFlavo Knippa b64ec 379-6 [facility] 13:45:00 13:45:00 Results r Specialties 8ff-4e41-9 l 9c6-qo316y Mi nn 179065 8724-07-22 2014-09-12 DEXA nullFlavo Knippa 535fd 913-0 [facility] 13:45:00 13:45:00 Results r Specialties 189-4dbe-9 l 997-9f8617 Mi nn 96c71c 2014-09-12 2014-09-12 DEXA nullFlavo Knippa 4d89f 51d-0 [facility] 13:45:00 13:45:00 Results r Specialties r8i-89w4-5 l f3n-k286v2 Mi nn 74482g 2014-09-12 2014-09-12 DEXA nullFlavo Knippa 138b9 b3b-5 [facility] 13:45:00 13:45:00 Results r Specialties 04a-40d1-b l 0o9-md34e6 Mi nn 1ac4e8 2014-09-12 2014-09-12 DEXA nullFlavo Knippa 5ff63 ba1-4 [facility] 13:45:00 13:45:00 Results r Specialties t11-744x-5 l be1-6d4bff Mi nn 4cf4a4 2014-09-12 2014-09-12 DEXA nullFlavo Knippa 40663 437-9 [facility] 13:45:00 13:45:00 Results r Specialties 5w3-8p7e-6 l 157-ec22d2 Mi nn 0u091l 2014-09-12 2014-09-12 DEXA nullFlavo Knippa 9d6d3 071-7 [facility] 13:45:00 13:45:00 Results r Specialties ee2-4be5-a l 805-ecfecd Mi nn 04b25f 2014-09-12 2014-09-12 DEXA nullFlavo Knippa 770fc 89d-a [facility] 13:45:00 13:45:00 Results r Specialties 0z0-8ue1-4 l f6e-h02d48 Mi nn x43237 2014-09-12 2014-09-12 DEXA nullFlavo Knippa ee31b 86e-b [facility] 13:45:00 13:45:00 Results r Specialties 153-4846-b l 830-v20559 Im nn 171eb3 2014-09-12 2014-09-12 DEXA nullFlavo Knippa 31ce9 e2a-3 [facility] 13:45:00 13:45:00 Results r Specialties 171-4b03-b l l8d-n2v3dw Mi nn 102759 0118-07-22 2014-09-12 DEXA nullFlavo Knippa 910ca 874-a [facility] 13:45:00 13:45:00 Results r Specialties 6g8-9s66-e l 64e-113dd2 Mi nn 31n794 2014-09-12 2014-09-12 DEXA nullFlavo Knippa 40e3e 6f6-d [facility] 13:45:00 13:45:00 Results r Specialties ad4-4117-b l fff-570b94 Mi nn 1fceb5 2014-09-12 2014-09-12 DEXA nullFlavo Knippa 02490 fc8-6 [facility] 13:45:00 13:45:00 Results r Specialties 922-4fc1-9 l 0h1-4029y3 Mi nn 58s233 2014-09-12 2014-09-12 DEXA nullFlavo Knippa cf672 3af-b [facility] 13:45:00 13:45:00 Results r Specialties 831-4794-8 l 005-4fe27a Mi nn 7b8b29 2014-09-12 2014-09-12 DEXA nullFlavo Knippa ab529 ec4-3 [facility] 13:45:00 13:45:00 Results r Specialties m69-5011-5 l n13-9v6tj6 Mi nn 3a9ea0 2014-09-05 2014-09-05 Additional nullFlavo Knippa 6e d559s3-2 [facility] 14:04:00 14:04:00 Imaging r Specialties 437-4c0b-9 l Needed 429-3r1519 Mi nn e587db 2014-09-05 2014-09-05 Additional nullFlavo Knippa 47 5118g6-5 [facility] 14:04:00 14:04:00 Imaging r Specialties 98c-4efc-b l Needed r3q-600512 [facility] nn 8f8ae7 2014-09-05 2014-09-05 Additional nullFlavo Knippa 8c ye3fy8-6 [facility] 14:04:00 14:04:00 Imaging r Specialties 159-4c01-a l Needed 38e-373501 Mi nn aaea09 2014-09-05 2014-09-05 Additional nullFlavo Knippa 85 84662v-4 [facility] 14:04:00 14:04:00 Imaging r Specialties 4e5-05x4-0 l Needed 87f-6f8452 [facility] nn 8e3214 2014-09-05 2014-09-05 Additional nullFlavo Knippa 28 33d4gs-9 [facility] 14:04:00 14:04:00 Imaging r Specialties d4d-8bn3-8 l Needed 716-bcc8e8 Mi nn 38a5c1 2014-09-05 2014-09-05 Additional nullFlavo Knippa 73 35mb5a-3 [facility] 14:04:00 14:04:00 Imaging r Specialties 1t7-6081-2 l Needed 9e8-81du7v Mi nn 54fa0b 2014-09-05 2014-09-05 Additional nullFlavo Knippa 9d 73n74v-2 [facility] 14:04:00 14:04:00 Imaging r Specialties 54d-450c-a l Needed 49e-85ec73 Mi nn 2cc2fd 2014-09-05 2014-09-05 Additional nullFlavo Knippa 91 661n53-9 [facility] 14:04:00 14:04:00 Imaging r Specialties 0d5-5l27-2 l Needed 189-aad5f7 Mi nn 6b58f0 2014-09-05 2014-09-05 Additional nullFlavo Knippa 64 74207i-7 [facility] 14:04:00 14:04:00 Imaging r Specialties x46-8650-f l Needed 8x6-8867f6 Mi nn 531e05 2014-09-05 2014-09-05 Additional nullFlavo Knippa 35 80i253-6 [facility] 14:04:00 14:04:00 Imaging r Specialties 61e-40f7-9 l Needed k39-5x9ovo Mi nn 87a4f5 2014-09-05 2014-09-05 Additional nullFlavo Knippa 4f 35r354-n [facility] 14:04:00 14:04:00 Imaging r Specialties 38d-40cb-8 l Needed 8g1-1338df Mi nn 263c0d 2014-09-05 2014-09-05 Additional nullFlavo Knippa bd 9f32e5-0 [facility] 14:04:00 14:04:00 Imaging r Specialties 969-4f6d-b l Needed cc9-d6f76d Mi nn af20f4 2014-09-05 2014-09-05 Additional nullFlavo Knippa 88 285e92-y [facility] 14:04:00 14:04:00 Imaging r Specialties 6z4-1260-k l Needed r5m-9603j6 Mi nn 0j244w 2014-09-05 2014-09-05 Additional nullFlavo Knippa 29 2u05y6-2 [facility] 14:04:00 14:04:00 Imaging r Specialties shaji-4483-b l Needed 6w5-fp3i33 Mi nn c81213 2014-09-05 2014-09-05 Additional nullFlavo Knippa e4 8ml173-5 [facility] 14:04:00 14:04:00 Imaging r Specialties 5r9-260p-y l Needed amanuel-8f469n Mi nn 3ad29f 2014-09-05 2014-09-05 Additional nullFlavo Knippa 53 27j082-9 [facility] 14:04:00 14:04:00 Imaging r Specialties 011-442f-b l Needed 76d-14769g Mi nn 49136b 2014-09-05 2014-09-05 Additional nullFlavo Knippa f6 36c4w8-2 [facility] 14:04:00 14:04:00 Imaging r Specialties df5-4e8a-b l Needed 86b-ae9e97 Mi nn xn0784 2014-09-05 2014-09-05 Additional nullFlavo Knippa 6d k0kk4w-4 [facility] 14:04:00 14:04:00 Imaging r Specialties 8aa-48df-9 l Needed db0-477c93 Mi nn bg4424 2014-09-05 2014-09-05 Additional nullFlavo Knippa 63 92w463-7 [facility] 14:04:00 14:04:00 Imaging r Specialties 8e5-3u17-i l Needed 506-0i0327 Mi nn 7r9837 2014-09-05 2014-09-05 Additional nullFlavo Knippa aa 592eed-b [facility] 14:04:00 14:04:00 Imaging r Specialties 525-440f-8 l Needed u17-d29on3 Mi nn 03e2fd 2014-09-05 2014-09-05 Additional nullFlavo Knippa 0a 3945c4-4 [facility] 14:04:00 14:04:00 Imaging r Specialties ae0-4e89-9 l Needed 705-298883 Mi nn 76h895 2014-09-05 2014-09-05 Additional nullFlavo Knippa 51 nq08dm-d [facility] 14:04:00 14:04:00 Imaging r Specialties 208-4023-b l Needed y85-4h6oo6 Mi nn bfc6dc 2014-09-05 2014-09-05 Additional nullFlavo Knippa 3d y049h7-6 [facility] 14:04:00 14:04:00 Imaging r Specialties 7f1-9tq0-e l Needed 4d3-467v11 Mi nn e423e8 2014-09-05 2014-09-05 Additional nullFlavo Knippa 52 4z573l-y [facility] 13:04:00 13:04:00 Imaging r Specialties z9r-76ww-8 l Needed e58-2mgxz0 Mi nn 177cad 2014-09-05 2014-09-05 Additional nullFlavo Knippa f2 7g53m1-7 [facility] 13:04:00 13:04:00 Imaging r Specialties 9v7-5437-9 l Needed 59b-86ab95 Mi nn beab91 2014-09-05 2014-09-05 Additional nullFlavo Knippa 09 80a7j9-o [facility] 13:04:00 13:04:00 Imaging r Specialties 33a-4d89-8 l Needed l40-2lco58 Mi nn 66dd3e 2014-09-05 2014-09-05 Additional nullFlavo Knippa c4 mg3291-7 [facility] 13:04:00 13:04:00 Imaging r Specialties h28-4i44-x l Needed p65-352s08 Mi nn 664dcb 2014-09-05 2014-09-05 Additional nullFlavo Knippa 3b 65ohe5-8 [facility] 13:04:00 13:04:00 Imaging r Specialties 283-4d1f-8 l Needed dc0-07bad6 Mi nn 75496l 2014-09-05 2014-09-05 Additional nullFlavo Knippa 61 139b90-5 [facility] 13:04:00 13:04:00 Imaging r Specialties db3-4104-b l Needed 36d-743702 Mi nn 342b0b 2014-09-05 2014-09-05 Additional nullFlavo Knippa 42 39ob6j-9 [facility] 13:04:00 13:04:00 Imaging r Specialties fdd-47e6-b l Needed 1b2-61qv85 Mi nn 4d32cb 2014-09-05 2014-09-05 Additional nullFlavo Knippa 64 6hn2j9-3 [facility] 13:04:00 13:04:00 Imaging r Specialties 3g6-4n3z-0 l Needed 059-e3fad4 Mi nn f4694r 2014-09-05 2014-09-05 Additional nullFlavo Knippa 45 65u984-3 [facility] 13:04:00 13:04:00 Imaging r Specialties 58e-4350-8 l Needed 23c-k60571 Mi nn 04b5de 2014-09-05 2014-09-05 Additional nullFlavo Knippa 61 ci8645-a [facility] 13:04:00 13:04:00 Imaging r Specialties a00-69k5-n l Needed h2p-j62i57 Mi nn d34d4c 2014-09-05 2014-09-05 Additional nullFlavo Knippa fc a1clc0-q [facility] 13:04:00 13:04:00 Imaging r Specialties 114-4599-9 l Needed 4bf-fa49ff Mi nn 41eae1 2014-09-05 2014-09-05 Additional nullFlavo Knippa e0 303n1u-2 [facility] 13:04:00 13:04:00 Imaging r Specialties v24-7595-v l Needed 976-4570f0 Mi nn f39f2d 2014-09-05 2014-09-05 Additional nullFlavo Knippa 3a 1ax81q-w [facility] 13:04:00 13:04:00 Imaging r Specialties a32-05x9-2 l Needed ded-3j6019 Mi nn e52bcd 2014-09-05 2014-09-05 Additional nullFlavo Knippa 12 yz0hn6-p [facility] 13:04:00 13:04:00 Imaging r Specialties 02a-4139-b l Needed 498-a9eb4b Mi nn 7a6fee 2014-09-05 2014-09-05 Additional nullFlavo Knippa 11 lyu922-4 [facility] 13:04:00 13:04:00 Imaging r Specialties 8c9-2394-o l Needed n89-49o70b Mi nn e388cf 2014-09-05 2014-09-05 Additional nullFlavo Knippa 46 9246i9-u [facility] 13:04:00 13:04:00 Imaging r Specialties cc2-4687-b l Needed 335-ee25ee Mi nn 80f2ee 2014-09-05 2014-09-05 Additional nullFlavo Knippa f4 2m0i6m-9 [facility] 13:04:00 13:04:00 Imaging r Specialties 66c-4eff-b l Needed bf6-53a26d Mi nn 359838 9309-07-15 2014-09-05 Additional nullFlavo Knippa c8 cv6305-h [facility] 13:04:00 13:04:00 Imaging r Specialties 550-4a52-a l Needed 15f-0b4ddf Mi nn 307281 6148-07-15 2014-09-05 Additional nullFlavo Knippa 6e sntc2h-3 [facility] 13:04:00 13:04:00 Imaging r Specialties 720-4006-9 l Needed 124-63be20 Mi nn f65bec 2014-09-05 2014-09-05 Additional nullFlavo Knippa 96 p0190a-n [facility] 13:04:00 13:04:00 Imaging r Specialties 6y6-3ghn-7 l Needed 24e-0677cf Mi nn ca1a33 2014-09-05 2014-09-05 Additional nullFlavo Knippa 33 10964c-g [facility] 13:04:00 13:04:00 Imaging r Specialties 2b0-9901-7 l Needed 7a6-jenyx0 Mi nn 82493d 2014-09-05 2014-09-05 Additional nullFlavo Knippa bd d41b25-w [facility] 13:04:00 13:04:00 Imaging r Specialties 574-4960-8 l Needed o78-8v1b76 Mi nn 5ff8eb 2014-09-05 2014-09-05 Additional nullFlavo Knippa cf 3pa060-l [facility] 13:04:00 13:04:00 Imaging r Specialties 745-4534-9 l Needed da3-54ff0f Mi nn 319ffe 2014-09-05 2014-09-05 Additional nullFlavo Knippa 4f 31o110-4 [facility] 13:04:00 13:04:00 Imaging r Specialties 59e-4733-8 l Needed 455-49b98e Mi nn 0b61b6 2014-08-21 2014-08-22 Outpatient [facility] 3391 588580 [facility] 13:07:00 04:59:00 r Niall 01 l [facility] 2014-08-09 2014-08-09 4 Wk nullFlavo Knippa 05b91 eb4-9 [facility] 19:30:00 19:30:00 Follow-Up r Specialties 56e-47b8 -b l / Lab ca7-e96d38 Mi nn Review bce9aa 2014-08-09 2014-08-09 4 Wk nullFlavo Knippa 25432 85e-a [facility] 19:30:00 19:30:00 Follow-Up r Specialties z11-50t3 -b l / Lab 646-be0a6b Mi nn Review v5b182 2014-08-09 2014-08-09 4 Wk nullFlavo Knippa 72d34 623-1 [facility] 19:30:00 19:30:00 Follow-Up r Specialties 4r5-1908 -a l / Lab af6-7dcacd Mi nn Review 2k194a 2014-08-09 2014-08-09 4 Wk nullFlavo Knippa b6cc0 7cd-9 [facility] 19:30:00 19:30:00 Follow-Up r Specialties 637-46ce -b l / Lab 317-599974 Mi nn Review 6ded76 2014-08-09 2014-08-09 4 Wk nullFlavo Knippa be236 0e9-f [facility] 19:30:00 19:30:00 Follow-Up r Specialties k87-9a29 -8 l / Lab 611-8437a5 Mi nn Review 2f57f6 2014-08-09 2014-08-09 4 Wk nullFlavo Knippa b8ed0 6ab-0 [facility] 19:30:00 19:30:00 Follow-Up r Specialties 97a-44f1 -a l / Lab d68-m20n50 Mi nn Review 11024d 2014-08-09 2014-08-09 4 Wk nullFlavo Knippa 0fbe5 7a4-5 [facility] 19:30:00 19:30:00 Follow-Up r Specialties 82a-481c -a l / Lab v69-z9ove7 Mi nn Review efb08e 2014-08-09 2014-08-09 4 Wk nullFlavo Knippa 3b8bf 9fb-8 [facility] 19:30:00 19:30:00 Follow-Up r Specialties ddb-4d95 -8 l / Lab 839-fd9d0d Mi nn Review 1974f0 2014-08-09 2014-08-09 4 Wk nullFlavo Knippa 9a8fa e8c-4 [facility] 19:30:00 19:30:00 Follow-Up r Specialties 99d-4e47 -9 l / Lab 339-dd1a10 Mi nn Review 1cbd19 2014-08-09 2014-08-09 4 Wk nullFlavo Knippa 78fee 7e8-d [facility] 19:30:00 19:30:00 Follow-Up r Specialties s3z-8o7g -9 l / Lab t4o-74nd3u Mi nn Review wvo421 2014-08-09 2014-08-09 4 Wk nullFlavo Knippa bd828 09c-8 [facility] 19:30:00 19:30:00 Follow-Up r Specialties 73e-4cb2 -9 l / Lab 3da-b17bb9 Mi nn Review dc0d32 2014-08-09 2014-08-09 4 Wk nullFlavo Knippa cc58f be7-9 [facility] 19:30:00 19:30:00 Follow-Up r Specialties n21-4y8a -9 l / Lab ff3-25a29e Mi nn Review a6d69e 2014-08-09 2014-08-09 4 Wk nullFlavo Knippa e5e43 62a-e [facility] 19:30:00 19:30:00 Follow-Up r Specialties 750-4aed -9 l / Lab 24c-ex855n Mi nn Review 6bb63f 2014-08-09 2014-08-09 4 Wk nullFlavo Knippa 5fb95 97c-5 [facility] 19:30:00 19:30:00 Follow-Up r Specialties bd2-4399 -8 l / Lab 9ca-943112 Mi nn Review 122c54 2014-08-09 2014-08-09 4 Wk nullFlavo Knippa 1b987 eee-1 [facility] 19:30:00 19:30:00 Follow-Up r Specialties s22-26p9 -b l / Lab 59b-ck242z Mi nn Review 0gv753 2014-08-09 2014-08-09 4 Wk nullFlavo Knippa b231e b16-1 [facility] 19:30:00 19:30:00 Follow-Up r Specialties 952-4fe0 -b l / Lab 3m3-i3e27t Mi nn Review 088e59 2014-08-09 2014-08-09 4 Wk nullFlavo Knippa 71f46 07c-1 [facility] 19:30:00 19:30:00 Follow-Up r Specialties 246-4190 -a l / Lab efc-5c4652 Mi nn Review 91n319 2014-08-09 2014-08-09 4 Wk nullFlavo Knippa eb097 9fd-a [facility] 19:30:00 19:30:00 Follow-Up r Specialties 417-48fe -b l / Lab 10a-7c0e2a Mi nn Review 4d9cc9 2014-08-09 2014-08-09 4 Wk nullFlavo Knippa bde2f 8ea-0 [facility] 19:30:00 19:30:00 Follow-Up r Specialties 254-4a61 -b l / Lab 060-99ddda Mi nn Review jyg833 2014-08-09 2014-08-09 4 Wk nullFlavo Knippa fcdcd 48d-7 [facility] 19:30:00 19:30:00 Follow-Up r Specialties 366-468a -8 l / Lab 039-50n235 Mi nn Review 65acd2 2014-08-09 2014-08-09 4 Wk nullFlavo Knippa 9bd5b 30f-a [facility] 19:30:00 19:30:00 Follow-Up r Specialties 90a-464e -a l / Lab v4e-321912 Mi nn Review 058a0c 2014-08-09 2014-08-09 4 Wk nullFlavo Knippa 14087 9ad-d [facility] 19:30:00 19:30:00 Follow-Up r Specialties 4o3-803n -a l / Lab 904-4b8e73 Mi nn Review c6f4e6 2014-08-09 2014-08-09 4 Wk nullFlavo Knippa a79c4 202-0 [facility] 19:30:00 19:30:00 Follow-Up r Specialties eaa-4b31 -a l / Lab d1x-695ea2 Mi nn Review 2p6930 2014-08-09 2014-08-09 4 Wk nullFlavo Knippa 39f05 ee5-2 [facility] 18:30:00 18:30:00 Follow-Up r Specialties ec6-49f2 -a l / Lab 534-49z904 Mi nn Review 90075w 2014-08-09 2014-08-09 4 Wk nullFlavo Knippa 19e4a 6a6-f [facility] 18:30:00 18:30:00 Follow-Up r Specialties 9n9-33m3 -8 l / Lab 8k0-92pv4p Mi nn Review 34e63f 2014-08-09 2014-08-09 4 Wk nullFlavo Knippa 6d509 8ed-f [facility] 18:30:00 18:30:00 Follow-Up r Specialties 9h4-4669 -8 l / Lab 517-oy749b Mi nn Review x40932 2014-08-09 2014-08-09 4 Wk nullFlavo Knippa e9c63 a0f-8 [facility] 18:30:00 18:30:00 Follow-Up r Specialties 478-4909 -b l / Lab 97b-ec9c78 Mi nn Review 94fab8 2014-08-09 2014-08-09 4 Wk nullFlavo Knippa 66514 62c-b [facility] 18:30:00 18:30:00 Follow-Up r Specialties b79-232w -8 l / Lab i9t-779jl5 Mi nn Review 4e2b49 2014-08-09 2014-08-09 4 Wk nullFlavo Knippa aaf23 73d-4 [facility] 18:30:00 18:30:00 Follow-Up r Specialties w7w-753n -b l / Lab f1x-fqd5sg Mi nn Review 17844r 2014-08-09 2014-08-09 4 Wk nullFlavo Knippa cf67b 919-4 [facility] 18:30:00 18:30:00 Follow-Up r Specialties 572-4abf -8 l / Lab 29d-3999f6 Mi nn Review eaec87 2014-08-09 2014-08-09 4 Wk nullFlavo Knippa 122d3 798-8 [facility] 18:30:00 18:30:00 Follow-Up r Specialties 918-4396 -b l / Lab 210-b3abe5 Mi nn Review 89r473 2014-08-09 2014-08-09 4 Wk nullFlavo Knippa 511a0 10b-0 [facility] 18:30:00 18:30:00 Follow-Up r Specialties 651-4bdb -b l / Lab 3c8-w94d2y Mi nn Review o4o091 2014-08-09 2014-08-09 4 Wk nullFlavo Knippa b9ed3 7f7-0 [facility] 18:30:00 18:30:00 Follow-Up r Specialties 50f-4656 -8 l / Lab 33c-v9e736 Mi nn Review b84ab3 2014-08-09 2014-08-09 4 Wk nullFlavo Knippa b5c42 df4-4 [facility] 18:30:00 18:30:00 Follow-Up r Specialties 159-4ee2 -8 l / Lab v46-967s9w Mi nn Review 053ea4 2014-08-09 2014-08-09 4 Wk nullFlavo Knippa 3c738 932-0 [facility] 18:30:00 18:30:00 Follow-Up r Specialties 6ff-4b1f -8 l / Lab 983-j26777 Mi nn Review 676dec 2014-08-09 2014-08-09 4 Wk nullFlavo Knippa f4581 ce4-1 [facility] 18:30:00 18:30:00 Follow-Up r Specialties s07-96md -8 l / Lab 2ec-3fff0b Mi nn Review 116d6d 2014-08-09 2014-08-09 4 Wk nullFlavo Knippa cf44f c45-0 [facility] 18:30:00 18:30:00 Follow-Up r Specialties 848-484f -b l / Lab 92c-180ffe Im nn Review c94cbe 2014-08-09 2014-08-09 4 Wk nullFlavo Knippa c0a14 347-e [facility] 18:30:00 18:30:00 Follow-Up r Specialties a84-43am -b l / Lab 453-f1ae54 Mi nn Review 88236j 2014-08-09 2014-08-09 4 Wk nullFlavo Knippa 44df2 cd9-7 [facility] 18:30:00 18:30:00 Follow-Up r Specialties 8d4-6086 -a l / Lab 010-496add Mi nn Review mlv961 2014-08-09 2014-08-09 4 Wk nullFlavo Knippa 2cf7c d54-2 [facility] 18:30:00 18:30:00 Follow-Up r Specialties f32-15rp -b l / Lab t05-9wl7tp Mi nn Review 71b134 2014-08-09 2014-08-09 4 Wk nullFlavo Knippa 995e2 670-9 [facility] 18:30:00 18:30:00 Follow-Up r Specialties 279-48bd -b l / Lab 60b-c47c8f Mi nn Review pbg351 2014-08-09 2014-08-09 4 Wk nullFlavo Knippa 8b240 ffd-9 [facility] 18:30:00 18:30:00 Follow-Up r Specialties u69-08j2 -b l / Lab 4d7-234jvc Mi nn Review 99j495 2014-08-09 2014-08-09 4 Wk nullFlavo Knippa 51506 416-3 [facility] 18:30:00 18:30:00 Follow-Up r Specialties de7-4f6f -a l / Lab 401-42c31b Mi nn Review pb351a 2014-08-09 2014-08-09 4 Wk nullFlavo Knippa 2ac6c 08a-b [facility] 18:30:00 18:30:00 Follow-Up r Specialties r27-1910 -b l / Lab 11f-16aa63 Mi nn Review 0a33c5 2014-08-09 2014-08-09 4 Wk nullFlavo Knippa d61fd c96-2 [facility] 18:30:00 18:30:00 Follow-Up r Specialties 1de-4200 -9 l / Lab 7y9-2wc56g Mi nn Review 521566 0318-06-18 2014-08-09 4 Wk nullFlavo Knippa e8ea6 3a8-6 [facility] 18:30:00 18:30:00 Follow-Up r Specialties 85e-4a7d -a l / Lab 950-2e7df3 Mi nn Review fxv525 2014-08-09 2014-08-09 4 Wk nullFlavo Knippa da963 926-6 [facility] 18:30:00 18:30:00 Follow-Up r Specialties b60-766f -8 l / Lab 551-3167b1 Mi nn Review 31ef23 2014-07-23 2014-07-23 Pt Concern nullFlavo Knippa 7a ok133x-v [facility] 16:49:00 16:49:00 - notified r Specialties u4x-7s2 1-9 l f0l-37y473 Mi nn 4eabc3 2014-07-23 2014-07-23 Pt Concern nullFlavo Knippa 3e 410nf3-e [facility] 16:49:00 16:49:00 - notified r Specialties 9g4-740 2-a l 315-dbf4f2 Mi nn e72f7b 2014-07-23 2014-07-23 Pt Concern nullFlavo Knippa 32 mm72c9-7 [facility] 16:49:00 16:49:00 - notified r Specialties 092-4cb c-a l t6v-4wt36c Mi nn 241f9f 2014-07-23 2014-07-23 Pt Concern nullFlavo Knippa 93 s66822-5 [facility] 16:49:00 16:49:00 - notified r Specialties 1be-4ae b-9 l 38b-324a97 Mi nn 1c2af9 2014-07-23 2014-07-23 Pt Concern nullFlavo Knippa 93 66t4x3-0 [facility] 16:49:00 16:49:00 - notified r Specialties fc3-4ab 2-9 l b31-e40jk8 Mi nn 1p7602 2014-07-23 2014-07-23 Pt Concern nullFlavo Knippa 3f j70o99-p [facility] 16:49:00 16:49:00 - notified r Specialties 077-4e0 a-b l 031-a01c35 Mi nn 73cd42 2014-07-23 2014-07-23 Pt Concern nullFlavo Knippa fc 84971f-4 [facility] 16:49:00 16:49:00 - notified r Specialties cd1-475 a-b l z0y-9489r3 Mi nn f17aa1 2014-07-23 2014-07-23 Pt Concern nullFlavo Knippa 65 s6wn3q-4 [facility] 16:49:00 16:49:00 - notified r Specialties h2x-122 c-b l af6-83113p Mi nn e3cf36 2014-07-23 2014-07-23 Pt Concern nullFlavo Knippa 02 132h18-6 [facility] 16:49:00 16:49:00 - notified r Specialties a86-491 b-8 l fc9-87q306 Mi nn 209d56 2014-07-23 2014-07-23 Pt Concern nullFlavo Knippa 0a 986d97-5 [facility] 16:49:00 16:49:00 - notified r Specialties 500-410 f-9 l 045-67b8e4 Mi nn dw154g 2014-07-23 2014-07-23 Pt Concern nullFlavo Knippa d8 4ve681-z [facility] 16:49:00 16:49:00 - notified r Specialties a02-465 6-9 l 35e-3874d8 Mi nn 3dbee7 2014-07-23 2014-07-23 Pt Concern nullFlavo Knippa 02 5a1hc2-g [facility] 16:49:00 16:49:00 - notified r Specialties 5h4-6g3 5-b l ca4-5a3cec Mi nn 341a15 2014-07-23 2014-07-23 Pt Concern nullFlavo Knippa c0 7l5ach-0 [facility] 16:49:00 16:49:00 - notified r Specialties 6v1-7gg 8-a l i82-8zyo6r Mi nn 043225 2159-06-01 2014-07-23 Pt Concern nullFlavo Knippa 4f 8900bd-d [facility] 16:49:00 16:49:00 - notified r Specialties 490-4a8 c-b l 544-dd2ab9 Mi nn 0f27fe 2014-07-23 2014-07-23 Pt Concern nullFlavo Knippa 65 125a2g-5 [facility] 16:49:00 16:49:00 - notified r Specialties 18c-470 d-b l 758-b20d94 Mi nn ba9f62 2014-07-23 2014-07-23 Pt Concern nullFlavo Knippa 36 rqs738-6 [facility] 16:49:00 16:49:00 - notified r Specialties e91-47e c-a l 030-530307 Mi nn 59ee30 2014-07-23 2014-07-23 Pt Concern nullFlavo Knippa b4 012k3g-5 [facility] 16:49:00 16:49:00 - notified r Specialties b77-4fb 5-8 l 6e0-7mxp08 Mi nn c89d4a 2014-07-23 2014-07-23 Pt Concern nullFlavo Knippa 6a 1c68ra-1 [facility] 16:49:00 16:49:00 - notified r Specialties 61b-49f 8-b l cc4-d02576 Mi nn dbaf1a 2014-07-23 2014-07-23 Pt Concern nullFlavo Knippa 70 2r641d-1 [facility] 16:49:00 16:49:00 - notified r Specialties 446-426 9-9 l 19c-6eebf2 Mi nn f26c05 2014-07-23 2014-07-23 Pt Concern nullFlavo Knippa 36 9q425o-6 [facility] 16:49:00 16:49:00 - notified r Specialties 50c-4fd f-b l 163-c58d1a Mi nn 874c27 2014-07-23 2014-07-23 Pt Concern nullFlavo Knippa e0 38m532-8 [facility] 16:49:00 16:49:00 - notified r Specialties dac-41c 7-8 l 5i5-7dj7vu Mi nn 93441q 2014-07-23 2014-07-23 Pt [facility]cern nullFlavo Knippa 16 07n3w1-s [facility] 16:49:00 16:49:00 - notified r Specialties db7-463 f-a l bbb-2c1cf4 Mi nn 71be45 2014-07-23 2014-07-23 Pt Concern nullFlavo Knippa 04 070184-9 [facility] 16:49:00 16:49:00 - notified r Specialties a16-445 b-8 l dcd-83c5b8 Mi nn 7cab5e 2014-07-23 2014-07-23 Pt Con[facility] nullFlavo Knippa 2e 186720-m [facility] 15:49:00 15:49:00 - notified r Specialties b63-4fd a-8 l 70f-acbea2 Mi nn a1d4d9 2014-07-23 2014-07-23 Pt [facility] nullFlavo Knippa 75 5wpl87-x [facility] 15:49:00 15:49:00 - notified r Specialties bfe-427 4-8 l fda-015bf0 Mi nn 78j895 2014-07-23 2014-07-23 Pt Concern nullFlavo Knippa e4 i367pf-p [facility] 15:49:00 15:49:00 - notified r Specialties 9z2-15s 2-8 l 528-312860 Mi nn 25422e 2014-07-23 2014-07-23 Pt [facility] nullFlavo Knippa 0d 513fq4-k [facility] 15:49:00 15:49:00 - notified r Specialties 1e9-743 6-a l fc1-bc9e33 Mi nn fd74d2 2014-07-23 2014-07-23 Pt [facility] nullFlavo Knippa 57 x196q1-8 [facility] 15:49:00 15:49:00 - notified r Specialties 5dc-4c8 a-8 l 242-2064a1 Mi nn fa12bb 2014-07-23 2014-07-23 Pt [facility] nullFlavo Knippa dc f3l756-4 [facility] 15:49:00 15:49:00 - notified r Specialties 344-4c0 e-8 l kizzy-4ar417 Mi nn d0e17c 2014-07-23 2014-07-23 Pt [facility] nullFlavo Knippa 23 53c141-8 [facility] 15:49:00 15:49:00 - notified r Specialties f45-405 7-9 l k41-iwdc18 Mi nn 778608 7220-06-01 2014-07-23 Pt [facility] nullFlavo Knippa 74 ed3196-2 [facility] 15:49:00 15:49:00 - notified r Specialties c41-473 9-b l 10a-6cc70f Mi nn 2567ed 2014-07-23 2014-07-23 Pt [facility] nullFlavo Knippa e5 g0cs91-q [facility] 15:49:00 15:49:00 - notified r Specialties 131-4f9 c-8 l 79d-3e7a2b Mi nn jyi390 2014-07-23 2014-07-23 Pt [facility] nullFlavo Knippa f7 4p98l8-3 [facility] 15:49:00 15:49:00 - notified r Specialties fd0-457 b-a l 43b-54838o Mi nn 54a7fb 2014-07-23 2014-07-23 Pt [facility] nullFlavo Knippa 4d 51t889-8 [facility] 15:49:00 15:49:00 - notified r Specialties y5u-1a1 d-9 l t0q-81tkpw Mi nn 40c5c9 2014-07-23 2014-07-23 Pt [facility] nullFlavo Knippa 5f l23395-z [facility] 15:49:00 15:49:00 - notified r Specialties 875-4c2 0-8 l 1x4-v6s959 Mi nn 827ad9 2014-07-23 2014-07-23 Pt [facility] nullFlavo Knippa 84 hq2127-2 [facility] 15:49:00 15:49:00 - notified r Specialties 79c-44e c-b l a9q-a75aq0 Mi nn 27b2b2 2014-07-23 2014-07-23 Pt [facility] nullFlavo Knippa 77 5ztv15-7 [facility] 15:49:00 15:49:00 - notified r Specialties 0ed-426 c-a l 90c-44b1df Mi nn 632c70 2014-07-23 2014-07-23 Pt [facility] nullFlavo Knippa 00 s9s2w9-d [facility] 15:49:00 15:49:00 - notified r Specialties 576-43f 7-9 l 812-1cadd1 Mi nn a063a1 2014-07-23 2014-07-23 Pt [facility]cern nullFlavo Knippa ba 90938m-x [facility] 15:49:00 15:49:00 - notified r Specialties 5s3-8a4 f-8 l e29-m07935 Mi nn 71d8e6 2014-07-23 2014-07-23 Pt [facility] nullFlavo Knippa 48 74o859-9 [facility] 15:49:00 15:49:00 - notified r Specialties x9w-2vx c-b l 4d3-365iru Mi nn e1512u 2014-07-23 2014-07-23 Pt [facility] nullFlavo Knippa 49 c3869x-2 [facility] 15:49:00 15:49:00 - notified r Specialties 443-4df 4-a l fb8-6273ff Mi nn e6282f 2014-07-23 2014-07-23 Pt [facility] nullFlavo Knippa 82 87rxk9-b [facility] 15:49:00 15:49:00 - notified r Specialties 999-446 e-b l 690-2efc68 Mi nn 3a1d65 2014-07-23 2014-07-23 Pt [facility] nullFlavo Knippa 01 58z16w-7 [facility] 15:49:00 15:49:00 - notified r Specialties e77-473 2-b l w72-4a1714 Mi nn 42a64b 2014-07-23 2014-07-23 Pt [facility] nullFlavo Knippa 62 204633-r [facility] 15:49:00 15:49:00 - notified r Specialties 1d1-5z2 8-9 l 896-93316e Mi nn 5fd9d2 2014-07-23 2014-07-23 Pt [facility] nullFlavo Knippa 0c 33dd83-2 [facility] 15:49:00 15:49:00 - notified r Specialties 38b-4d4 5-8 l ad2-9003ca Mi nn 0ji419 2014-07-23 2014-07-23 Pt [facility] nullFlavo Knippa ca 9mih13-s [facility] 15:49:00 15:49:00 - notified r Specialties 834-400 e-9 l 731-dafd19 Mi nn 2878ac 2014-07-23 2014-07-23 Pt [facility] nullFlavo Knippa dd j149a8-9 [facility] 15:49:00 15:49:00 - notified r Specialties ad9-4fa 6-a l fc0-4f3b60 Mi nn 001fcc 2014-07-23 2014-07-23 Pt [facility] nullFlavo Knippa ef mx4m05-f [facility] 15:49:00 15:49:00 - notified r Specialties ec7-439 0-8 l 815-96d0d9 Mi nn d2f9e5 2014-07-19 2014-07-19 Accu-chek nullFlavo Knippa 3fe x6f6k-j [facility] 13:55:00 13:55:00 test r Specialties 934-41a8-9 l strips n65-39525v Mi nn 30X5 105833 3156-05-28 2014-07-19 Accu-chek nullFlavo Knippa 977 w9870-h [facility] 13:55:00 13:55:00 test r Specialties db8-4de4-a l strips 7bb-4sb968 Mi nn 30X5 55723u 2014-07-19 2014-07-19 Accu-chek nullFlavo Knippa b02 nq81w-5 [facility] 13:55:00 13:55:00 test r Specialties 370-496e-b l strips 7y2-i27256 Mi nn 30X5 42da4f 2014-07-19 2014-07-19 Accu-chek nullFlavo Knippa ce0 34e2k-k [facility] 13:55:00 13:55:00 test r Specialties 4d8-5365-2 l strips 84b-a7ebfb Mi nn 30X5 u7042m 2014-07-19 2014-07-19 Accu-chek nullFlavo Knippa 8bb 25317-s [facility] 13:55:00 13:55:00 test r Specialties 703-4856-b l strips 0c9-343835 Mi nn 30X5 6a7158 2014-07-19 2014-07-19 Accu-chek nullFlavo Knippa ab2 34717-5 [facility] 13:55:00 13:55:00 test r Specialties 75a-4923-b l strips 47f-aceef9 Mi nn 30X5 c1abdc 2014-07-19 2014-07-19 Accu-chek nullFlavo Knippa 19b a1o97-i [facility] 13:55:00 13:55:00 test r Specialties eb9-42aa-b l strips 8a5-qed7e2 Mi nn 30X5 39ac72 2014-07-19 2014-07-19 Accu-chek nullFlavo Knippa 983 9s61s-h [facility] 13:55:00 13:55:00 test r Specialties o23-0536-9 l strips fde-cddc7f Mi nn 30X5 48622u 2014-07-19 2014-07-19 Accu-chek nullFlavo Knippa 39d 98g04-9 [facility] 13:55:00 13:55:00 test r Specialties 479-49ad-b l strips 384-0ba99c Mi nn 30X5 c35fca 2014-07-19 2014-07-19 Accu-chek nullFlavo Knippa b71 15560-5 [facility] 13:55:00 13:55:00 test r Specialties 804-4940-9 l strips 49f-i83210 Mi nn 30X5 3f6a91 2014-07-19 2014-07-19 Accu-chek nullFlavo Knippa 0fd 4e268-5 [facility] 13:55:00 13:55:00 test r Specialties 932-4711-a l strips 22c-13611q Mi nn 30X5 927c2c 2014-07-19 2014-07-19 Accu-chek nullFlavo Knippa e04 46fh0-7 [facility] 13:55:00 13:55:00 test r Specialties 784-41ed-8 l strips 4ec-32167n Mi nn 30X5 f96cdc 2014-07-19 2014-07-19 Accu-chek nullFlavo Knippa 02f caca0-7 [facility] 13:55:00 13:55:00 test r Specialties 4m5-533n-2 l strips ec8-38cb68 Mi nn 30X5 63f1e9 2014-07-19 2014-07-19 Accu-chek nullFlavo Knippa 811 89x16-h [facility] 13:55:00 13:55:00 test r Specialties 9cc-4eb3-a l strips 1t9-5umf4b Mi nn 30X5 3a8637 2014-07-19 2014-07-19 Accu-chek nullFlavo Knippa 7af 82674-b [facility] 13:55:00 13:55:00 test r Specialties 5x1-909s-b l strips cbd-5442cc Mi nn 30X5 971bf7 2014-07-19 2014-07-19 Accu-chek nullFlavo Knippa 5e0 36091-y [facility] 13:55:00 13:55:00 test r Specialties ff1-4542-a l strips k56-x7v0l7 Mi nn 30X5 d21092 2014-07-19 2014-07-19 Accu-chek nullFlavo Knippa abc 99490-0 [facility] 13:55:00 13:55:00 test r Specialties 94e-486c-9 l strips n3q-x3t177 Mi nn 30X5 77a6d3 2014-07-19 2014-07-19 Accu-chek nullFlavo Knippa 191 sw29z-7 [facility] 13:55:00 13:55:00 test r Specialties 013-4f33-9 l strips 7ed-m49010 Mi nn 30X5 fab4bf 2014-07-19 2014-07-19 Accu-chek nullFlavo Knippa ed4 z3ew6-c [facility] 13:55:00 13:55:00 test r Specialties fd1-4a7b-9 l strips 9k3-080p85 Mi nn 30X5 i8r875 2014-07-19 2014-07-19 Accu-chek nullFlavo Knippa eb2 9a5x7-5 [facility] 13:55:00 13:55:00 test r Specialties 474-4ab2-a l strips p34-91gdym Mi nn 30X5 c533d2 2014-07-19 2014-07-19 Accu-chek nullFlavo Knippa 33a 107g9-8 [facility] 13:55:00 13:55:00 test r Specialties 9dd-45fe-a l strips 59f-3f3e8b Mi nn 30X5 f8a4da 2014-07-19 2014-07-19 Accu-chek nullFlavo Knippa dde hy65s-x [facility] 13:55:00 13:55:00 test r Specialties j77-0v8t-0 l strips 0d2-4g269s Mi nn 30X5 iml606 2014-07-19 2014-07-19 Accu-chek nullFlavo Knippa 00f 092o1-p [facility] 13:55:00 13:55:00 test r Specialties dad-4eec-8 l strips 926-7c1f5e Mi nn 30X5 8ac8b5 2014-07-19 2014-07-19 Accu-chek nullFlavo Knippa f31 k6wdf-2 [facility] 12:55:00 12:55:00 test r Specialties a57-967c-4 l strips 21f-63994c Mi nn 30X5 a78cfd 2014-07-19 2014-07-19 Accu-chek nullFlavo Knippa f34 747p0-7 [facility] 12:55:00 12:55:00 test r Specialties 6y8-84jr-4 l strips d63-tlhi51 Mi nn 30X5 194e5f 2014-07-19 2014-07-19 Accu-chek nullFlavo Knippa a54 8668e-e [facility] 12:55:00 12:55:00 test r Specialties 67b-4f7f-9 l strips 3a4-6b0al6 Mi nn 30X5 4ebcd5 2014-07-19 2014-07-19 Accu-chek nullFlavo Knippa d34 319v5-h [facility] 12:55:00 12:55:00 test r Specialties h92-005h-m l strips 133-c34dd1 Mi nn 30X5 0ae2bb 2014-07-19 2014-07-19 Accu-chek nullFlavo Knippa 58a jx20k-p [facility] 12:55:00 12:55:00 test r Specialties 9ba-4885-9 l strips 4w1-63967i Mi nn 30X5 ec03f5 2014-07-19 2014-07-19 Accu-chek nullFlavo Knippa 91a a7267-q [facility] 12:55:00 12:55:00 test r Specialties 49d-4228-a l strips 5fc-019cac Mi nn 30X5 d08c4f 2014-07-19 2014-07-19 Accu-chek nullFlavo Knippa 616 v2678-6 [facility] 12:55:00 12:55:00 test r Specialties ee5-4da4-a l strips 3x0-z3xq0q Mi nn 30X5 4v1917 2014-07-19 2014-07-19 Accu-chek nullFlavo Knippa d99 k44mo-3 [facility] 12:55:00 12:55:00 test r Specialties 0j6-3734-m l strips fba-2ok717 Mi nn 30X5 71d47f 2014-07-19 2014-07-19 Accu-chek nullFlavo Knippa da0 85acb-d [facility] 12:55:00 12:55:00 test r Specialties 942-4c5c-8 l strips k0h-3sj7s3 Mi nn 30X5 f52f26 2014-07-19 2014-07-19 Accu-chek nullFlavo Knippa 93c 74260-g [facility] 12:55:00 12:55:00 test r Specialties fdb-44b9-8 l strips 262-b788c2 Mi nn 30X5 6yr812 2014-07-19 2014-07-19 Accu-chek nullFlavo Knippa d20 ihr7n-f [facility] 12:55:00 12:55:00 test r Specialties 678-4e90-9 l strips 612-qar748 Mi nn 30X5 efd4fe 2014-07-19 2014-07-19 Accu-chek nullFlavo Knippa d4a 2s01k-6 [facility] 12:55:00 12:55:00 test r Specialties 9c1-869m-0 l strips u9j-1g3rv1 Mi nn 30X5 k0e474 2014-07-19 2014-07-19 Accu-chek nullFlavo Knippa 781 5x492-3 [facility] 12:55:00 12:55:00 test r Specialties 77c-4331-9 l strips 85a-sf1061 Mi nn 30X5 f91f55 2014-07-19 2014-07-19 Accu-chek nullFlavo Knippa dfb 9vof4-3 [facility] 12:55:00 12:55:00 test r Specialties k60-5mr0-2 l strips 08b-c43f59 Mi nn 30X5 3eed03 2014-07-19 2014-07-19 Accu-chek nullFlavo Knippa 9cd 84574-9 [facility] 12:55:00 12:55:00 test r Specialties 781-42a6-b l strips r66-052p04 Mi nn 30X5 30r737 2014-07-19 2014-07-19 Accu-chek nullFlavo Knippa fc8 49w70-7 [facility] 12:55:00 12:55:00 test r Specialties h1y-206g-9 l strips 120-c4db72 Mi nn 30X5 378599 9725-05-28 2014-07-19 Accu-chek nullFlavo Knippa 375 0ij64-c [facility] 12:55:00 12:55:00 test r Specialties 3ab-4629-a l strips 544-1ba9ed Mi nn 30X5 a51fb2 2014-07-19 2014-07-19 Accu-chek nullFlavo Knippa 14e 65131-5 [facility] 12:55:00 12:55:00 test r Specialties 01b-4f3d-9 l strips 53d-2ms906 Mi nn 30X5 m66163 2014-07-19 2014-07-19 Accu-chek nullFlavo Knippa 766 bx6vk-3 [facility] 12:55:00 12:55:00 test r Specialties [employer] dried salt-4b3d-8 l strips 328-w9o323 Mi nn 30X5 769cc3 2014-07-19 2014-07-19 Accu-chek nullFlavo Knippa c3e mx402-v [facility] 12:55:00 12:55:00 test r Specialties 818-445e-a l strips 1d9-pd5i92 Mi nn 30X5 3350ce 2014-07-19 2014-07-19 Accu-chek nullFlavo Knippa 3e5 f602c-3 [facility] 12:55:00 12:55:00 test r Specialties 4ad-4382-8 l strips o46-485z2y Mi nn 30X5 8d2995 2014-07-19 2014-07-19 Accu-chek nullFlavo Knippa 74b 469fd-3 [facility] 12:55:00 12:55:00 test r Specialties bb2-4cea-a l strips 664-2b00a1 Mi nn 30X5 42c7ca 2014-07-19 2014-07-19 Accu-chek nullFlavo Knippa 80c x5262-7 [facility] 12:55:00 12:55:00 test r Specialties r3d-20n8-8 l strips q77-z647c2 Mi nn 30X5 3c52ac 2014-07-19 2014-07-19 Accu-chek nullFlavo Knippa 710 p152o-6 [facility] 12:55:00 12:55:00 test r Specialties 36a-4921-9 l strips v8i-r0u0e2 Mi nn 30X5 0d6e1b 2014-07-19 2014-07-19 Accu-chek nullFlavo Knippa 96a acd42-d [facility] 12:55:00 12:55:00 test r Specialties 968-4426-9 l strips 58f-6c5825 Mi nn 30X5 d4d21d 2014-07-05 2014-07-05 rx refill nullFlavo Knippa fc8 eca12-0 [facility] 21:45:00 21:45:00 r Specialties u72-853y-5 l 4cd-644e4a Mi nn b635d3 2014-07-05 2014-07-05 rx refill nullFlavo Knippa b81 87z92-6 [facility] 21:45:00 21:45:00 r Specialties 3ad-469b-9 l q93-8m41k3 Mi nn faee71 2014-07-05 2014-07-05 rx refill nullFlavo Knippa 248 d0d24-a [facility] 21:45:00 21:45:00 r Specialties 5cd-4b4e-8 l 6f7-673s8u Mi nn 04a8f2 2014-07-05 2014-07-05 rx refill nullFlavo Knippa d71 9563c-9 [facility] 21:45:00 21:45:00 r Specialties 824-4988-b l 11a-06a728 Mi nn 11eb7f 2014-07-05 2014-07-05 rx refill nullFlavo Knippa 5b6 07633-7 [facility] 21:45:00 21:45:00 r Specialties o9c-9el1-k l 1n0-9j7279 Mi nn q4349n 2014-07-05 2014-07-05 rx refill nullFlavo Knippa 6f0 14w19-w [facility] 21:45:00 21:45:00 r Specialties w33-1c33-6 l edb-25309s Mi nn 85efcf 2014-07-05 2014-07-05 rx refill nullFlavo Knippa 833 45728-c [facility] 21:45:00 21:45:00 r Specialties 621-4390-8 l t44-276y46 Mi nn cf8fa9 2014-07-05 2014-07-05 rx refill nullFlavo Knippa 7e1 xy7l4-d [facility] 21:45:00 21:45:00 r Specialties 6da-4f33-9 l ff2-qi7037 Mi nn 52db0e 2014-07-05 2014-07-05 rx refill nullFlavo Knippa f24 ee626-2 [facility] 21:45:00 21:45:00 r Specialties 128-445e-b l 13a-373e7b Mi nn 31u683 2014-07-05 2014-07-05 rx refill nullFlavo Knippa e2b 07092-4 [facility] 21:45:00 21:45:00 r Specialties k82-8j5p-e l 4ef-0575bd Mi nn 62ee25 2014-07-05 2014-07-05 rx refill nullFlavo Knippa bc0 3xge9-3 [facility] 21:45:00 21:45:00 r Specialties 245-4a55-9 l 976-0648d4 Mi nn a9f39a 2014-07-05 2014-07-05 rx refill nullFlavo Knippa 750 59mc5-n [facility] 21:45:00 21:45:00 r Specialties 6fb-4b14-a l w6r-o41c8x [facility] nn 383c30 2014-07-05 2014-07-05 rx refill nullFlavo Knippa 766 a8146-6 [facility] 21:45:00 21:45:00 r Specialties 465-4503-a l 73e-5b8c55 [facility] nn 6y4683 2014-07-05 2014-07-05 rx refill nullFlavo Knippa bd8 27r0i-6 [facility] 21:45:00 21:45:00 r Specialties 049-475f-9 l e90-f238if Mi nn 1121be 2014-07-05 2014-07-05 rx refill nullFlavo Knippa f6a d1048-w [facility] 21:45:00 21:45:00 r Specialties v23-4630-5 l w4q-12st98 Mi nn cf2e5d 2014-07-05 2014-07-05 rx refill nullFlavo Knippa 4d9 42mi7-2 [facility] 21:45:00 21:45:00 r Specialties 890-439c-8 l 8cc-dbafc3 Mi nn 629c76 2014-07-05 2014-07-05 rx refill nullFlavo Knippa c7d 93939-o [facility] 21:45:00 21:45:00 r Specialties 18d-403a-b l 7ee-ef9ef8 Mi nn 8v321u 2014-07-05 2014-07-05 rx refill nullFlavo Knippa 58c 4lm8n-i [facility] 21:45:00 21:45:00 r Specialties 006-46d3-8 l fd1-137fb9 Mi nn 142417 6238-05-14 2014-07-05 rx refill nullFlavo Knippa 11d ry7c4-3 [facility] 21:45:00 21:45:00 r Specialties 4ff-4435-b l z50-s1gcs5 Mi nn 15314f 2014-07-05 2014-07-05 rx refill nullFlavo Knippa dc2 90870-a [facility] 21:45:00 21:45:00 r Specialties 33a-4e53-9 l 2t1-9w0r6i Mi nn 7caa98 2014-07-05 2014-07-05 rx refill nullFlavo Knippa 669 8w087-d [facility] 21:45:00 21:45:00 r Specialties j41-552v-b l 654-69e3bf Mi nn fb1fa9 2014-07-05 2014-07-05 rx refill nullFlavo Knippa 563 q8456-7 [facility] 21:45:00 21:45:00 r Specialties 014-487c-a l 4fa-c9f71c Mi nn 1aa7f7 2014-07-05 2014-07-05 rx refill nullFlavo Knippa 329 0e838-9 [facility] 21:45:00 21:45:00 r Specialties 7p9-2w0h-f l g60-2097i2 Mi nn c41f6e 2014-07-05 2014-07-05 rx refill nullFlavo Knippa 855 jz553-p [facility] 20:45:00 20:45:00 r Specialties y5l-1515-t l s2i-00xv3x Mi nn a578b4 2014-07-05 2014-07-05 rx refill nullFlavo Knippa 128 cda67-3 [facility] 20:45:00 20:45:00 r Specialties e67-3817-e l 47c-df6d6f Mi nn 49ece2 2014-07-05 2014-07-05 rx refill nullFlavo Knippa d2c i6572-7 [facility] 20:45:00 20:45:00 r Specialties 65d-4e2f-9 l o2c-48368m Mi nn ec50a7 2014-07-05 2014-07-05 rx refill nullFlavo Knippa c05 836k0-x [facility] 20:45:00 20:45:00 r Specialties fac-46ba-b l 7e6-4h6dv9 Mi nn f6f4cd 2014-07-05 2014-07-05 rx refill nullFlavo Knippa 47d 7403c-0 [facility] 20:45:00 20:45:00 r Specialties 7e6-13z5-g l 0dc-4b2ab2 Mi nn 2f7a93 2014-07-05 2014-07-05 rx refill nullFlavo Knippa fbd 66195-4 [facility] 20:45:00 20:45:00 r Specialties 668-4703-b l da2-1fcb72 Mi nn 789ed1 2014-07-05 2014-07-05 rx refill nullFlavo Knippa 9a6 752ec-5 [facility] 20:45:00 20:45:00 r Specialties 9r9-4211-7 l w13-1g4d1a Mi nn 78d0de 2014-07-05 2014-07-05 rx refill nullFlavo Knippa 6c1 v7wz2-1 [facility] 20:45:00 20:45:00 r Specialties 42c-46bc-b l 553-v8294x Mi nn 3ccbf2 2014-07-05 2014-07-05 rx refill nullFlavo Knippa d5e 1fe93-8 [facility] 20:45:00 20:45:00 r Specialties f9o-3ay6-a l 3e0-xrff8h Mi nn u4l435 2014-07-05 2014-07-05 rx refill nullFlavo Knippa 319 i32ym-v [facility] 20:45:00 20:45:00 r Specialties 8f1-5wp0-0 l f16-043z1t [facility] nn 1018fd 2014-07-05 2014-07-05 rx refill nullFlavo Knippa 55b 4e852-b [facility] 20:45:00 20:45:00 r Specialties e8k-2xel-g l efa-736352 [facility] nn 2dc66e 2014-07-05 2014-07-05 rx refill nullFlavo Knippa 3d3 60f4k-q [facility] 20:45:00 20:45:00 r Specialties 86f-4145-a l 926-ccc96a [facility] nn 003925 3095-05-14 2014-07-05 rx refill nullFlavo Knippa bf8 8n773-1 [facility] 20:45:00 20:45:00 r Specialties 7ea-47b8-9 l 678-cc7c8f [facility] nn t42947 2014-07-05 2014-07-05 rx refill nullFlavo Knippa f8f h6822-a [facility] 20:45:00 20:45:00 r Specialties 19c-41c7-8 l y6c-13xo84 [facility] nn c867e9 2014-07-05 2014-07-05 rx refill nullFlavo Knippa 01b t368k-6 [facility] 20:45:00 20:45:00 r Specialties 7o3-4f9r-y l 7c8-n98699 [facility] nn i4n710 2014-07-05 2014-07-05 rx refill nullFlavo Knippa 222 23d73-1 [facility] 20:45:00 20:45:00 r Specialties 862-4ae4-a l n56-2bu7a4 [facility] nn 33x938 2014-07-05 2014-07-05 rx refill nullFlavo Knippa fc9 js31y-g [facility] 20:45:00 20:45:00 r Specialties 81f-4103-a l w77-g616xu [facility] nn 604114 1002-05-14 2014-07-05 rx refill nullFlavo Knippa b8b 500j0-m [facility] 20:45:00 20:45:00 r Specialties aed-4c73-b l 4be-fu6851 Mi nn 05cea1 2014-07-05 2014-07-05 rx refill nullFlavo Knippa ea2 p05y0-9 [facility] 20:45:00 20:45:00 r Specialties 1bd-4f70-b l u65-0215yj Mi nn fe5c49 2014-07-05 2014-07-05 rx refill nullFlavo Knippa e1b a968u-4 [facility] 20:45:00 20:45:00 r Specialties 89f-4e85-a l 17f-g35766 Mi nn mj3758 2014-07-05 2014-07-05 rx refill nullFlavo Knippa 992 18b0h-1 [facility] 20:45:00 20:45:00 r Specialties 871-446c-9 l da5-8afe89 Mi nn z9f593 2014-07-05 2014-07-05 rx refill nullFlavo Knippa 6c6 0ms0c-7 [facility] 20:45:00 20:45:00 r Specialties 0g3-00s6-o l w46-503dt2 Mi nn 1a2d37 2014-07-05 2014-07-05 rx refill nullFlavo Knippa a7d 9akr5-q [facility] 20:45:00 20:45:00 r Specialties 8n8-8fxg-6 l 2p1-b2g767 Mi nn 8724e6 2014-07-05 2014-07-05 rx refill nullFlavo [facility]ipp[facility] 09e 5ceac-0 [facility] 20:45:00 20:45:00 r Specialties 97f-46a9-8 l 260-ffcb6f Mi nn b24cb1 2014-07-05 2014-07-05 rx refill nullFlavo [facility]ipp[facility] a3a eaa06-4 [facility] 20:45:00 20:45:00 r Specialties 977-46d8-8 l g70-lr2416 Mi nn 515091 6792-04-22 2014-06-13 Wants to nullFlavo Knippa e9fc 3425-6 [facility] 16:40:00 16:40:00 know where r Specialties 9ce-449 6-b l MRA is 3p4-ph7d98 Mi nn scheduled [id number] at. 2014-06-13 2014-06-13 Wants to nullFlavo Knipp[facility] 6c4d 1c86-f [facility] 16:40:00 16:40:00 know where r Specialties g5b-6yj b-8 l MRA is h5z-04276g Mi nn scheduled 36f8c0 at. 2014-06-13 2014-06-13 Wants to nullFlavo Knippa 40f7 4691-e [facility] 16:40:00 16:40:00 know where r Specialties 8j9-241 d-b l MRA is 236-e27e2b Mi nn scheduled ru808d at. 2014-06-13 2014-06-13 Wants to nullFlavo Knipp[facility] aad9 39a7-a [facility] 16:40:00 16:40:00 know where r Specialties l9d-0y3 0-8 l MRA is s25-p5b121 Mi nn scheduled 7326ae at. 2014-06-13 2014-06-13 Wants to nullFlavo Knippa a71d 8096-a [facility] 16:40:00 16:40:00 know where r Specialties amanuel-4c6 3-9 l MRA is 00d-0fcdc8 Mi nn scheduled 78134z at. 2014-06-13 2014-06-13 Wants to nullFlavo Knippa cf89 8f04-e [facility] 16:40:00 16:40:00 know where r Specialties 0fb-434 2-8 l MRA is 10a-71383e Mi nn scheduled fea84a at. 2014-06-13 2014-06-13 Wants to nullFlavo Knippa 301b 13eb-5 [facility] 16:40:00 16:40:00 know where r Specialties b97-4cf 7-8 l MRA is h71-0r1455 Mi nn scheduled 24026o at. 2014-06-13 2014-06-13 Wants to nullFlavo Knippa 69ce 8c98-7 [facility] 16:40:00 16:40:00 know where r Specialties aa2-457 6-9 l MRA is j36-538y3c Mi nn scheduled 627150 at. 2014-06-13 2014-06-13 Wants to nullFlavo Knippa 3f00 bbcf-c [facility] 16:40:00 16:40:00 know where r Specialties 00c-43b d-a l MRA is 75b-910499 Mi nn scheduled 42c04d at. 2014-06-13 2014-06-13 Wants to nullFlavo Knipp[facility] 4a5e 6aaf-0 [facility] 16:40:00 16:40:00 know where r Specialties 872-441 f-9 l MRA is j62-0ndth3 Mi nn scheduled sdo967 at. 2014-06-13 2014-06-13 Wants to nullFlavo Knipp[facility] 3c8f 995e-3 [facility] 16:40:00 16:40:00 know where r Specialties d7p-96f 9-9 l MRA is ad2-z20554 Mi nn scheduled be2fb2 at. 2014-06-13 2014-06-13 Wants to nullFlavo Knippa 35e3 627e-6 [facility] 16:40:00 16:40:00 know where r Specialties 442-4ef d-b l MRA is 11e-497993 Mi nn scheduled c505c3 at. 2014-06-13 2014-06-13 Wants to nullFlavo Knippa 43dd 81d7-9 [facility] 16:40:00 16:40:00 know where r Specialties 689-43e 4-a l MRA is 9cd-t60987 Mi nn scheduled 6393dd at. 2014-06-13 2014-06-13 Wants to nullFlavo Knippa 228d 4e28-c [facility] 16:40:00 16:40:00 know where r Specialties 56d-4c6 5-b l MRA is 11c-qq2129 Mi nn scheduled fcb9ed at. 2014-06-13 2014-06-13 Wants to nullFlavo Knippa 3901 6070-2 [facility] 16:40:00 16:40:00 know where r Specialties cba-4f2 b-8 l MRA is m98-o6eo3g Mi nn scheduled 9034a1 at. 2014-06-13 2014-06-13 Wants to nullFlavo Knippa be12 5e15-2 [facility] 16:40:00 16:40:00 know where r Specialties 68c-400 8-b l MRA is ce1-1bbdc1 Mi nn scheduled c59f52 at. 2014-06-13 2014-06-13 Wants to nullFlavo Knippa 14ec caf6-3 [facility] 16:40:00 16:40:00 know where r Specialties 9j9-90n 1-8 l MRA is 5l3-8267ji Mi nn scheduled b8b6e8 at. 2014-06-13 2014-06-13 Wants to nullFlavo Knippa 827c dc52-c [facility] 16:40:00 16:40:00 know where r Specialties 023-4ea a-8 l MRA is 1d7-82336h Mi nn scheduled 4uq396 at. 2014-06-13 2014-06-13 Wants to nullFlavo Knippa 6a18 621c-0 [facility] 16:40:00 16:40:00 know where r Specialties 9bc-4be e-9 l MRA is 56b-6673b8 Mi nn scheduled acedfe at. 2014-06-13 2014-06-13 Wants to nullFlavo Knippa 8b98 c6c3-2 [facility] 16:40:00 16:40:00 know where r Specialties cfd-485 d-9 l MRA is 7ce-7beffd Mi nn scheduled 92afd2 at. 2014-06-13 2014-06-13 Wants to nullFlavo Knippa fc28 048f-2 [facility] 16:40:00 16:40:00 know where r Specialties c03-4a6 0-b l MRA is 4bf-927914 Mi nn scheduled z7b976 at. 2014-06-13 2014-06-13 Wants to nullFlavo Knippa 1041 6d63-9 [facility] 16:40:00 16:40:00 know where r Specialties 75e-406 c-b l MRA is 7n0-nh16c9 Mi nn scheduled 733bb9 at. 2014-06-13 2014-06-13 Wants to nullFlavo Knippa 3a1f 73df-c [facility] 16:40:00 16:40:00 know where r Specialties f84-4e7 5-9 l MRA is 8ed-21f87d Mi nn scheduled 58005w at. 2014-06-13 2014-06-13 Wants to nullFlavo Knippa b368 6082-4 [facility] 15:40:00 15:40:00 know where r Specialties 678-451 4-b l MRA is f24-y6f85w Mi nn scheduled 77m633 at. 2014-06-13 2014-06-13 Wants to nullFlavo Knippa 2bf0 15de-7 [facility] 15:40:00 15:40:00 know where r Specialties 2a4-616 7-9 l MRA is 6ff-799567 Mi nn scheduled xu896r at. 2014-06-13 2014-06-13 Wants to nullFlavo Knippa 3165 25f0-1 [facility] 15:40:00 15:40:00 know where r Specialties 07d-450 6-a l MRA is dbe-47d19b Mi nn scheduled 24001m at. 2014-06-13 2014-06-13 Wants to nullFlavo Knippa 5f35 5d0e-7 [facility] 15:40:00 15:40:00 know where r Specialties 1ff-403 c-8 l MRA is 7bb-6lf754 Mi nn scheduled i2h015 at. 2014-06-13 2014-06-13 Wants to nullFlavo Knippa 3ce9 e119-6 [facility] 15:40:00 15:40:00 know where r Specialties v4g-9c5 8-9 l MRA is g06-nw3613 Mi nn scheduled 9022ac at. 2014-06-13 2014-06-13 Wants to nullFlavo Knippa 29d8 94ae-b [facility] 15:40:00 15:40:00 know where r Specialties 071-4e7 a-a l MRA is ceb-ff6fe2 Mi nn scheduled [id number] at. 2014-06-13 2014-06-13 Wants to nullFlavo Knippa 8872 10cc-e [facility] 15:40:00 15:40:00 know where r Specialties fb6-40e 6-b l MRA is ce4-f56453 Mi nn scheduled wqb895 at. 2014-06-13 2014-06-13 Wants to nullFlavo Knippa a2df af93-6 [facility] 15:40:00 15:40:00 know where r Specialties ec9-4fe 4-b l MRA is a6s-32k020 Mi nn scheduled 1r4144 at. 2014-06-13 2014-06-13 Wants to nullFlavo Knippa 4ceb ae0b-8 [facility] 15:40:00 15:40:00 know where r Specialties 538-4fa 4-a l MRA is 97e-y29537 Mi nn scheduled b89cf1 at. 2014-06-13 2014-06-13 Wants to nullFlavo Knippa 220b c17b-3 [facility] 15:40:00 15:40:00 know where r Specialties 218-475 1-8 l MRA is 302-edbc36 Mi nn scheduled b5fa0c at. 2014-06-13 2014-06-13 Wants to nullFlavo Knippa 0ee7 d942-c [facility] 15:40:00 15:40:00 know where r Specialties f55-41b 3-b l MRA is 23a-76eb75 Mi nn scheduled jf3925 at. 2014-06-13 2014-06-13 Wants to nullFlavo Knippa 12b7 8ec8-f [facility] 15:40:00 15:40:00 know where r Specialties 53e-445 7-a l MRA is g49-7pa58v Mi nn scheduled 9ee8c4 at. 2014-06-13 2014-06-13 Wants to nullFlavo Knippa a598 9c82-8 [facility] 15:40:00 15:40:00 know where r Specialties w4f-86d 8-a l MRA is y2o-3nac25 Mi nn scheduled 00c34e at. 2014-06-13 2014-06-13 Wants to nullFlavo Knippa 147a c82d-3 [facility] 15:40:00 15:40:00 know where r Specialties 3e3-00d 2-a l MRA is 9x5-qc28v1 Mi nn scheduled 6o991o at. 2014-06-13 2014-06-13 Wants to nullFlavo Knippa 8d11 69a8-6 [facility] 15:40:00 15:40:00 know where r Specialties 189-4b6 2-a l MRA is 90f-402ce8 Mi nn scheduled e616a4 at. 2014-06-13 2014-06-13 Wants to nullFlavo Knippa 6ae4 1134-0 [facility] 15:40:00 15:40:00 know where r Specialties 61b-4d9 7-b l MRA is 71d-3cabc1 Mi nn scheduled 52615v at. 2014-06-13 2014-06-13 Wants to nullFlavo Knippa 87b9 9181-e [facility] 15:40:00 15:40:00 know where r Specialties f49-475 d-8 l MRA is ea3-a30c18 Mi nn scheduled 89418p at. 2014-06-13 2014-06-13 Wants to nullFlavo Knippa 814f 3d08-e [facility] 15:40:00 15:40:00 know where r Specialties 918-4f6 9-b l MRA is 05a-0o684t Mi nn scheduled cfc96c at. 2014-06-13 2014-06-13 Wants to nullFlavo Knippa 17fd 7d18-a [facility] 15:40:00 15:40:00 know where r Specialties 3ba-485 5-9 l MRA is s93-3296o1 Mi nn scheduled 205abf at. 2014-06-13 2014-06-13 Wants to nullFlavo Knippa fc80 148e-5 [facility] 15:40:00 15:40:00 know where r Specialties d24-471 9-b l MRA is f77-s2lnms Mi nn scheduled 19bba3 at. 2014-06-13 2014-06-13 Wants to nullFlavo Knippa a002 04e7-6 [facility] 15:40:00 15:40:00 know where r Specialties fc3-468 1-b l MRA is 38f-058c15 Mi nn scheduled pr420i at. 2014-06-13 2014-06-13 Wants to nullFlavo Knippa c6fa 67d1-7 [facility] 15:40:00 15:40:00 know where r Specialties w4g-512 2-b l MRA is z16-7dotb8 Mi nn scheduled f450df at. 2014-06-13 2014-06-13 Wants to nullFlavo Knippa 05b5 d4c3-8 [facility] 15:40:00 15:40:00 know where r Specialties c01-4d6 f-a l MRA is y35-kma8h3 Mi nn scheduled 71f1ee at. 2014-06-13 2014-06-13 Wants to nullFlavo Knippa 3140 bcfe-c [facility] 15:40:00 15:40:00 know where r Specialties f07-49a 9-a l MRA is w7g-4gs89t Mi nn scheduled 07e2ba at. 2014-06-13 2014-06-13 Wants to nullFlavo Knippa 61d8 654e-2 [facility] 15:40:00 15:40:00 know where r Specialties fd8-463 a-9 l MRA is i4e-9j04hs Mi nn scheduled f76a7f at. 2014-06-05 2014-06-05 Unknown nullFlavo Knippa 06bb3 f18-e [facility] 16:32:00 16:32:00 r Specialties q7h-7485-5 l 2ea-ff5e9d Mi nn 88c0e8 2014-06-05 2014-06-05 Unknown nullFlavo Knippa ce3ff 0f0-2 [facility] 16:32:00 16:32:00 r Specialties m7i-5458-v l 67b-c05f1e Mi nn 4c97ed 2014-06-05 2014-06-05 Unknown nullFlavo Knippa d2582 3c4-9 [facility] 16:32:00 16:32:00 r Specialties 3ed-4fa0-a l 77f-33h293 Mi nn 1502c7 2014-06-05 2014-06-05 Unknown nullFlavo Knippa 74e30 f01-8 [facility] 16:32:00 16:32:00 r Specialties ae8-4319-8 l 7ce-d2d85f Mi nn 1ee5af 2014-06-05 2014-06-05 Unknown nullFlavo Knippa 00b2b 694-3 [facility] 16:32:00 16:32:00 r Specialties eb7-4eb0-8 l 294-9b8d95 Mi nn bf8e13 2014-06-05 2014-06-05 Unknown nullFlavo Knippa 58241 c31-8 [facility] 16:32:00 16:32:00 r Specialties 03f-4ad6-a l bf9-73015c Mi nn e74adc 2014-06-05 2014-06-05 Unknown nullFlavo Knippa 990d3 98c-9 [facility] 16:32:00 16:32:00 r Specialties 5g5-9t32-2 l o2u-973a29 Mi nn d94d40 2014-06-05 2014-06-05 Unknown nullFlavo Knippa cd09b 1f1-9 [facility] 16:32:00 16:32:00 r Specialties 64e-4c73-a l 656-dk2447 Mi nn d1cd76 2014-06-05 2014-06-05 Unknown nullFlavo Knippa 4ef8f 45a-d [facility] 16:32:00 16:32:00 r Specialties 2o1-4195-5 l 08c-6677c9 Mi nn 862dec 2014-06-05 2014-06-05 Unknown nullFlavo Knippa 55302 eff-6 [facility] 16:32:00 16:32:00 r Specialties z69-88vx-q l 427-759ce0 Mi nn 2z6041 2014-06-05 2014-06-05 Unknown nullFlavo Knippa a8632 564-4 [facility] 16:32:00 16:32:00 r Specialties 8r0-6h16-j l 0ef-8fbb85 Mi nn j1q662 2014-06-05 2014-06-05 Unknown nullFlavo Knippa 0f5d3 345-d [facility] 16:32:00 16:32:00 r Specialties ebf-4b67-b l aea-d1e8ee Mi nn i9m637 2014-06-05 2014-06-05 Unknown nullFlavo Knippa a8ef4 67d-5 [facility] 16:32:00 16:32:00 r Specialties 15b-4e3b-9 l 61c-23af16 Mi nn 89fa6e 2014-06-05 2014-06-05 Unknown nullFlavo Knippa 57a10 6d2-0 [facility] 16:32:00 16:32:00 r Specialties 071-4dbc-8 l i45-r32y5o Mi nn 78d1a7 2014-06-05 2014-06-05 Unknown nullFlavo Knippa 34f4e 852-c [facility] 16:32:00 16:32:00 r Specialties 0u6-1c30-l l e89-31v7w0 Mi nn f750a9 2014-06-05 2014-06-05 Unknown nullFlavo Knippa fb741 4ab-2 [facility] 16:32:00 16:32:00 r Specialties 06d-44aa-a l 66e-65f7eb Mi nn b64fd9 2014-06-05 2014-06-05 Unknown nullFlavo Knippa 76619 2cb-4 [facility] 16:32:00 16:32:00 r Specialties c37-1943-1 l p64-c83996 Mi nn z3b174 2014-06-05 2014-06-05 Unknown nullFlavo Knippa f1a5f 65c-1 [facility] 16:32:00 16:32:00 r Specialties k5v-059m-i l 83f-c7903f Mi nn 832603 9197-04-14 2014-06-05 Unknown nullFlavo Knippa d8682 a05-e [facility] 16:32:00 16:32:00 r Specialties 8h6-88b4-0 l 333-7bbd17 Mi nn x9933v 2014-06-05 2014-06-05 Unknown nullFlavo Knippa 4d658 bd7-4 [facility] 16:32:00 16:32:00 r Specialties 8dc-42e4-a l daa-12v024 Mi nn 797384 3030-04-14 2014-06-05 Unknown nullFlavo Knippa 1c2fe f9d-5 [facility] 16:32:00 16:32:00 r Specialties s52-35t1-4 l 04e-f1febe Mi nn 94c1fa 2014-06-05 2014-06-05 Unknown nullFlavo Knippa 10e92 17b-4 [facility] 16:32:00 16:32:00 r Specialties j55-16b9-d l 7ca-ab31a5 Mi nn 1kj675 2014-06-05 2014-06-05 Unknown nullFlavo Knippa 0a66a 4d5-b [facility] 16:32:00 16:32:00 r Specialties 57d-4ecb-9 l i88-j4248z Mi nn 5dacae 2014-06-05 2014-06-05 Unknown nullFlavo Knippa 30faf 71c-a [facility] 15:32:00 15:32:00 r Specialties b25-37zc-2 l h5r-020uw0 Mi nn 3e05ac 2014-06-05 2014-06-05 Unknown nullFlavo Knippa 02f4a bb1-4 [facility] 15:32:00 15:32:00 r Specialties 55d-4a2c-9 l 5o4-cv5628 Mi nn 5z384w 2014-06-05 2014-06-05 Unknown nullFlavo Knippa f30d2 72a-4 [facility] 15:32:00 15:32:00 r Specialties 48e-4bda-b l 461-jb3241 Mi nn 0j2739 2014-06-05 2014-06-05 Unknown nullFlavo Knippa 4ad65 fe9-7 [facility] 15:32:00 15:32:00 r Specialties 5z1-9s30-w l 77f-f3f5d1 Mi nn 552782 3238-04-14 2014-06-05 Unknown nullFlavo Knippa 39de8 a78-c [facility] 15:32:00 15:32:00 r Specialties 9n0-83o9-8 l 341-62c75a Mi nn 94ab26 2014-06-05 2014-06-05 Unknown nullFlavo Knippa 767ab 340-f [facility] 15:32:00 15:32:00 r Specialties 236-4066-a l 0p4-3709x2 Mi nn 8d7f29 2014-06-05 2014-06-05 Unknown nullFlavo Knippa d5a4b 8a9-8 [facility] 15:32:00 15:32:00 r Specialties 794-459f-a l z40-011m07 Mi nn e09ee7 2014-06-05 2014-06-05 Unknown nullFlavo Knippa e23d4 98b-2 [facility] 15:32:00 15:32:00 r Specialties 4f1-991g-9 l 5p5-44lw16 Mi nn hp782k 2014-06-05 2014-06-05 Unknown nullFlavo Knippa 0302e 310-a [facility] 15:32:00 15:32:00 r Specialties o1t-1836-a l 596-6934b5 Mi nn do7553 2014-06-05 2014-06-05 Unknown nullFlavo Knippa 8990f e60-3 [facility] 15:32:00 15:32:00 r Specialties 582-47ef-b l 3fc-63dde4 Mi nn 378e7b 2014-06-05 2014-06-05 Unknown nullFlavo Knippa 29628 285-2 [facility] 15:32:00 15:32:00 r Specialties v54-664j-2 l 1n1-m28x55 Mi nn 0fe6db 2014-06-05 2014-06-05 Unknown nullFlavo Knippa 90af9 5e5-0 [facility] 15:32:00 15:32:00 r Specialties 2a0-6594-w l 249-56d61f Mi nn 5ii354 2014-06-05 2014-06-05 Unknown nullFlavo Knippa a4100 4c9-3 [facility] 15:32:00 15:32:00 r Specialties w48-0x95-q l 4c8-454441 Mi nn 19f4ff 2014-06-05 2014-06-05 Unknown nullFlavo Knippa 73c9e 62e-3 [facility] 15:32:00 15:32:00 r Specialties 8be-4249-b l 661-5d1655 Mi nn cbcc1c 2014-06-05 2014-06-05 Unknown nullFlavo Knippa fe469 566-0 [facility] 15:32:00 15:32:00 r Specialties 354-47e4-b l 7c4-4djj8c Mi nn 1b0829 2014-06-05 2014-06-05 Unknown nullFlavo Knippa 2cd24 cc3-b [facility] 15:32:00 15:32:00 r Specialties b3z-700b-q l 301-0b8f25 Mi nn zj5005 2014-06-05 2014-06-05 Unknown nullFlavo Knippa ddb27 73a-c [facility] 15:32:00 15:32:00 r Specialties m7d-5894-1 l 4j6-4000th Mi nn 6h5153 2014-06-05 2014-06-05 Unknown nullFlavo Knippa 5d051 5a6-5 [facility] 15:32:00 15:32:00 r Specialties fa0-4b59-9 l 5v2-554000 Mi nn 6be53c 2014-06-05 2014-06-05 Unknown nullFlavo Knippa 77871 237-5 [facility] 15:32:00 15:32:00 r Specialties 5u6-9821-4 l 7i7-96b7h8 Mi nn ohj011 2014-06-05 2014-06-05 Unknown nullFlavo Knippa b0398 de0-4 [facility] 15:32:00 15:32:00 r Specialties s42-2qk1-4 l 57a-12886s Mi nn d3667p 2014-06-05 2014-06-05 Unknown nullFlavo Knippa 2a184 4c9-7 [facility] 15:32:00 15:32:00 r Specialties u5x-1052-3 l 139-68f57b Mi nn 01b13a 2014-06-05 2014-06-05 Unknown nullFlavo Knippa 99493 d5d-d [facility] 15:32:00 15:32:00 r Specialties abf-43fe-8 l katiuska-16ca59 Mi nn 397ff0 2014-06-05 2014-06-05 Unknown nullFlavo Knippa 24224 cd4-e [facility] 15:32:00 15:32:00 r Specialties de7-404d-9 l 2j4-836a7o Mi nn dac46c 2014-06-05 2014-06-05 Unknown nullFlavo Knippa 04658 a3f-1 [facility] 15:32:00 15:32:00 r Specialties de0-48b0-8 l 7k0-dzr112 Mi nn 6cd38f 2014-06-05 2014-06-05 Unknown nullFlavo Knippa 5e087 4dc-3 [facility] 15:32:00 15:32:00 r Specialties 54d-4186-8 l t61-6hm07e Mi nn cc0a86 2014-05-29 2014-05-29 lab nullFlavo Knippa 04cd5 a95-b [facility] 20:12:00 20:12:00 invoice r Specialties 0c4-1h44-q l bill to acc-a6f4f9 Her hugo be done 3m7115 06/04 2014-05-29 2014-05-29 lab nullFlavo Knippa a7e1b e6d-5 [facility] 20:12:00 20:12:00 invoice r Specialties 9t1-37x7-4 l bill to 3g0-60016h Her hugo be done b9cc00 06/04 2014-05-29 2014-05-29 lab nullFlavo Knippa 956ee eb5-6 [facility] 20:12:00 20:12:00 invoice r Specialties 313-481a-a l bill to 99c-ae1e31 Her hugo be done abfa94 06/04 2014-05-29 2014-05-29 lab nullFlavo Knippa a2dc9 354-6 [facility] 20:12:00 20:12:00 invoice r Specialties x31-6840-q l bill to 75f-1d0d97 Her hugo be done e7b6ad 06/04 2014-05-29 2014-05-29 lab nullFlavo Knippa 95c3e 905-f [facility] 20:12:00 20:12:00 invoice r Specialties 50c-4fb3-8 l bill to 75c-n1941e Her hugo be done 528650 06/04 2014-05-29 2014-05-29 lab nullFlavo Knippa 37fbc 0cb-6 [facility] 20:12:00 20:12:00 invoice r Specialties 6ff-415e-b l bill to 535-387d78 Her hugo be done 6ez319 06/04 2014-05-29 2014-05-29 lab nullFlavo Knippa ed186 d36-3 [facility] 20:12:00 20:12:00 invoice r Specialties 7d9-83ad-h l bill to 058-39d938 Her hugo be done 5i1075 06/04 2014-05-29 2014-05-29 lab nullFlavo Knippa c4b33 a36-0 [facility] 20:12:00 20:12:00 invoice r Specialties h85-395f-z l bill to 538-21fb7e Her hugo be done 3886d6 06/04 2014-05-29 2014-05-29 lab nullFlavo Knippa 5a98b a48-f [facility] 20:12:00 20:12:00 invoice r Specialties 983-47f3-8 l bill to 8o5-1j555k Her hugo be done 01h586 06/04 2014-05-29 2014-05-29 lab nullFlavo Knippa 005ae 9da-2 [facility] 20:12:00 20:12:00 invoice r Specialties 742-48ea-9 l bill to 642-rvq873 Her hugo be done h3481y 06/04 2014-05-29 2014-05-29 lab nullFlavo Knippa 27101 65a-7 [facility] 20:12:00 20:12:00 invoice r Specialties 953-4ce9-8 l bill to 36a-1205f0 Her hugo be done cdd87d 06/04 2014-05-29 2014-05-29 lab nullFlavo Knippa ccbfd f05-4 [facility] 20:12:00 20:12:00 invoice r Specialties 320-421b-b l bill to 35b-ff44f4 Her hugo be done 7170db 06/04 2014-05-29 2014-05-29 lab nullFlavo Knippa ef7b7 1bf-0 [facility] 20:12:00 20:12:00 invoice r Specialties 2ba-4dd3-b l bill to v1u-hw9782 Her hugo be done 06efe4 06/04 2014-05-29 2014-05-29 lab nullFlavo Knippa 56371 053-4 [facility] 20:12:00 20:12:00 invoice r Specialties 13b-4a76-b l bill to v38-6zr75i Her hugo be done adb86f 06/04 2014-05-29 2014-05-29 lab nullFlavo Knippa 1f34d b7c-d [facility] 20:12:00 20:12:00 invoice r Specialties 55c-41af-8 l bill to m4u-6ap668 Her hugo be done e6f3e0 06/04 2014-05-29 2014-05-29 lab nullFlavo Knippa c20a0 136-a [facility] 20:12:00 20:12:00 invoice r Specialties 441-4058-b l bill to h1n-4005e6 Her hugo be done 0n6073 06/04 2014-05-29 2014-05-29 lab nullFlavo Knippa 13b67 497-2 [facility] 20:12:00 20:12:00 invoice r Specialties 679-4574-9 l bill to dad-a336cd Her hugo be done 0eddf3 06/04 2014-05-29 2014-05-29 lab nullFlavo Knippa b8479 a28-f [facility] 20:12:00 20:12:00 invoice r Specialties 6y8-78dg-g l bill to 4fa-8a50a8 Her hugo be done [id number] 06/04 2014-05-29 2014-05-29 lab nullFlavo Knippa ae0e9 e49-f [facility] 20:12:00 20:12:00 invoice r Specialties 7w9-11j4-v l bill to dff-95524x Her hugo be done 4709d3 06/04 2014-05-29 2014-05-29 lab nullFlavo Knippa 8ec12 4c8-3 [facility] 20:12:00 20:12:00 invoice r Specialties 4n5-5ls7-5 l bill to n5s-2507r8 Her hugo be done 07f39b 06/04 2014-05-29 2014-05-29 lab nullFlavo Knippa 6d04c 29c-3 [facility] 20:12:00 20:12:00 invoice r Specialties 07d-46a8-b l bill to 6cf-e55c9d Her hugo be done 7bcfab 06/04 2014-05-29 2014-05-29 lab nullFlavo Knippa 11c39 403-5 [facility] 20:12:00 20:12:00 invoice r Specialties cc0-4a7e-a l bill to 7e4-265610 Her hugo be done o53739 06/04 2014-05-29 2014-05-29 lab nullFlavo Knippa cd5ca a51-c [facility] 20:12:00 20:12:00 invoice r Specialties p78-69wb-p l bill to 332-ecc51e Her hugo be done 784e4e 06/04 2014-05-29 2014-05-29 lab nullFlavo Knippa cf7a3 c7b-c [facility] 19:12:00 19:12:00 invoice r Specialties 96a-4642-9 l bill to bb2-0cff61 Her hugo be done n3744b 06/04 2014-05-29 2014-05-29 lab nullFlavo Knippa 3b666 d27-2 [facility] 19:12:00 19:12:00 invoice r Specialties 1v4-7qc4-0 l bill to z4u-511jdd Her hugo be done b79a9f 06/04 2014-05-29 2014-05-29 lab nullFlavo Knippa d3c85 ad8-0 [facility] 19:12:00 19:12:00 invoice r Specialties 747-4ea5-a l bill to [id number] Her hugo be done 9b1ab9 06/04 2014-05-29 2014-05-29 lab nullFlavo Knippa 70f64 bb7-0 [facility] 19:12:00 19:12:00 invoice r Specialties ca8-4199-a l bill to 561-d0f2c3 Her hugo be done bffde3 06/04 2014-05-29 2014-05-29 lab nullFlavo Knippa f6edc 8e7-f [facility] 19:12:00 19:12:00 invoice r Specialties ec1-49c6-a l bill to 591-e6afa1 Her hugo be done 794ead 06/04 2014-05-29 2014-05-29 lab nullFlavo Knippa 0a5d2 4fa-c [facility] 19:12:00 19:12:00 invoice r Specialties 84e-4c00-a l bill to d68-635t0j Her hugo be done 6su873 06/04 2014-05-29 2014-05-29 lab nullFlavo Knippa e4993 3ae-8 [facility] 19:12:00 19:12:00 invoice r Specialties 9d7-5x53-3 l bill to 5x1-8ysigx Her hugo be done 0wm634 06/04 2014-05-29 2014-05-29 lab nullFlavo Knippa fbf67 6cd-e [facility] 19:12:00 19:12:00 invoice r Specialties 8q6-0g53-t l bill to 024-et8090 Her hugo be done 5f05bb 06/04 2014-05-29 2014-05-29 lab nullFlavo Knippa dbb0f 2c2-b [facility] 19:12:00 19:12:00 invoice r Specialties 420-41ab-8 l bill to 531-5920da Her hugo be done 293100 06/04 2014-05-29 2014-05-29 lab nullFlavo Knippa 1478f 4d1-4 [facility] 19:12:00 19:12:00 invoice r Specialties bde-4516-9 l bill to 199-93bb17 Her hugo be done 350224 06/04 2014-05-29 2014-05-29 lab nullFlavo Knippa 7111f c27-6 [facility] 19:12:00 19:12:00 invoice r Specialties 53b-41c6-9 l bill to 810-1108dd Her hugo be done 7e5b72 06/04 2014-05-29 2014-05-29 lab nullFlavo Knippa 7e5eb f5c-0 [facility] 19:12:00 19:12:00 invoice r Specialties 92c-40bd-b l bill to 322-y8f337 Her hugo be done 265048 06/04 2014-05-29 2014-05-29 lab nullFlavo Knippa f7ae9 8df-8 [facility] 19:12:00 19:12:00 invoice r Specialties 897-45e7-b l bill to 368-772101 Her hugo be done 49ee1f 06/04 2014-05-29 2014-05-29 lab nullFlavo Knippa a76ad b45-7 [facility] 19:12:00 19:12:00 invoice r Specialties 453-497b-b l bill to y47-hai381 Her hugo be done e3b3c2 06/04 2014-05-29 2014-05-29 lab nullFlavo Knippa cbbbc 7b0-b [facility] 19:12:00 19:12:00 invoice r Specialties m23-9232-y l bill to 3w8-46z8jo Her hugo be done a25fde 06/04 2014-05-29 2014-05-29 lab nullFlavo Knippa 20fdb 039-1 [facility] 19:12:00 19:12:00 invoice r Specialties 5a3-7m7e-6 l bill to 4ca-0c45c1 Her hugo be done 9110f5 06/04 2014-05-29 2014-05-29 lab nullFlavo Knippa 92f80 909-9 [facility] 19:12:00 19:12:00 invoice r Specialties f15-467j-y l bill to 47e-79775l Her hugo be done 0dfecb 06/04 2014-05-29 2014-05-29 lab nullFlavo Knippa 14e93 989-2 [facility] 19:12:00 19:12:00 invoice r Specialties 633-480e-8 l bill to 771-2941c9 Her hugo be done 1m088g 06/04 2014-05-29 2014-05-29 lab nullFlavo Knippa 14de4 375-9 [facility] 19:12:00 19:12:00 invoice r Specialties i8w-3w19-l l bill to 21f-2beb75 Her hugo be done fa28b6 06/04 2014-05-29 2014-05-29 lab nullFlavo Knippa e3597 048-3 [facility] 19:12:00 19:12:00 invoice r Specialties 548-4361-8 l bill to 354-8622c1 Her hugo be done 922d67 06/04 2014-05-29 2014-05-29 lab nullFlavo Knippa cd75c c76-e [facility] 19:12:00 19:12:00 invoice r Specialties 46d-4f78-8 l bill to ff6-4637a4 Her hugo be done 5b12ea 06/04 2014-05-29 2014-05-29 lab nullFlavo Knippa 2235a 6cb-b [facility] 19:12:00 19:12:00 invoice r Specialties w72-4c4w-x l bill to 9u8-v2a6yk Her hugo be done e14ab6 06/04 2014-05-29 2014-05-29 lab nullFlavo Knippa 3b692 c1a-6 [facility] 19:12:00 19:12:00 invoice r Specialties 2q7-16r4-t l bill to 826-m8240h Her hugo be done a35826 06/04 2014-05-29 2014-05-29 lab nullFlavo Knippa 50e3e 766-0 [facility] 19:12:00 19:12:00 invoice r Specialties 72d-42cb-b l bill to y4u-9m5kl3 Her hugo be done 3e8e6a 06/04 2014-05-29 2014-05-29 lab nullFlavo Knippa 7ed23 43c-4 [facility] 19:12:00 19:12:00 invoice r Specialties 90d-4218-a l bill to r7o-35i14s Her hugo be done fb3fa3 06/04 2014-05-29 2014-05-29 Labs nullFlavo Knippa 92e89 aa4-8 [facility] 17:02:00 17:02:00 r Specialties dc5-4bc8-a l s81-167h80 Mi nn 78cb3f 2014-05-29 2014-05-29 Labs nullFlavo Knippa 944a5 f3e-4 [facility] 17:02:00 17:02:00 r Specialties da7-49cb-b l 0k7-p7yh9s Mi nn 02ad5b 2014-05-29 2014-05-29 Labs nullFlavo Knippa fb6bb d6d-a [facility] 17:02:00 17:02:00 r Specialties 3aa-4f66-b l 3w9-l1392p Mi nn 3d60fa 2014-05-29 2014-05-29 Labs nullFlavo Knippa 5d1ae 2d2-b [facility] 17:02:00 17:02:00 r Specialties 315-4f6e-8 l g0h-42oil6 Mi nn 115c01 2014-05-29 2014-05-29 Labs nullFlavo Knippa a7739 605-8 [facility] 17:02:00 17:02:00 r Specialties 64a-4246-b l n7j-hf8385 Mi nn 47fbed 2014-05-29 2014-05-29 Labs nullFlavo Knippa af902 965-4 [facility] 17:02:00 17:02:00 r Specialties 6u7-1703-y l f2v-536293 Mi nn ad17ad 2014-05-29 2014-05-29 Labs nullFlavo Knippa 908a0 791-1 [facility] 17:02:00 17:02:00 r Specialties 5x1-0254-u l f83-726021 Mi nn 8728fc 2014-05-29 2014-05-29 Labs nullFlavo Knippa 3c6f8 f1f-f [facility] 17:02:00 17:02:00 r Specialties 61c-492f-8 l 3r3-y963c1 Mi nn x2869c 2014-05-29 2014-05-29 Labs nullFlavo Knippa 0d823 04f-f [facility] 17:02:00 17:02:00 r Specialties 457-4f21-9 l 631-796c93 Mi nn 36cae8 2014-05-29 2014-05-29 Labs nullFlavo Knippa f0207 f7e-9 [facility] 17:02:00 17:02:00 r Specialties 8s8-0q39-h l 185-ee5c2c Mi nn a159cc 2014-05-29 2014-05-29 Labs nullFlavo Knippa 9b395 8ad-1 [facility] 17:02:00 17:02:00 r Specialties 257-46c3-8 l 890-f79aea Mi nn 96i658 2014-05-29 2014-05-29 Labs nullFlavo Knippa 5ccb3 689-3 [facility] 17:02:00 17:02:00 r Specialties 329-44ba-8 l 9n9-2v737t Mi nn 6da8cc 2014-05-29 2014-05-29 [facility] c6a56 770-e [facility] 17:02:00 17:02:00 r Specialties e71-5620-x l 17d-f8dfa8 Mi nn 235fc2 2014-05-29 2014-05-29 [facility] 3ad95 2ec-e [facility] 17:02:00 17:02:00 r Specialties 039-4e0c-a l ce3-36aa2b Mi nn 4baafa 2014-05-29 2014-05-29 [facility] dd0d0 1c7-f [facility] 17:02:00 17:02:00 r Specialties 960-4488-a l 30f-48ea62 Mi nn e9c2e2 2014-05-29 2014-05-29 [facility] 498f8 611-d [facility] 17:02:00 17:02:00 r Specialties ae4-4a37-b l 085-71acf3 Mi nn e455d6 2014-05-29 2014-05-29 [facility] 85e06 e06-a [facility] 17:02:00 17:02:00 [facility] Special[facility] 183-4d30-b l fd9-d817e9 Mi nn 1d1e66 2014-05-29 2014-05-29 [facility] 86da3 1ca-1 [facility] 17:02:00 17:02:00 [facility] Specialties 5de-4e99-9 l 952-14f9c2 Mi nn 1r5346 2014-05-29 2014-05-29 [facility] f1c3d 353-8 [facility] 17:02:00 17:02:00 r Specialties bec-4807-a l u6y-6i7t5z Mi nn cf9f64 2014-05-29 2014-05-29 [facility] a5ccf 1f6-a [facility] 17:02:00 17:02:00 r Specialties 1ee-40f2-8 l abf-35d92f Mi nn a3b19b 2014-05-29 2014-05-29 [facility] 94978 eb1-c [facility] 17:02:00 17:02:00 r Specialties l4e-50k4-j l v05-7gu49f Mi nn 2f0a2f 2014-05-29 2014-05-29 [facility] 057db 857-d [facility] 17:02:00 17:02:00 [facility] Special[facility] cf8-41ad-8 l 44d-87a7b4 Mi nn b5fab1 2014-05-29 2014-05-29 [facility] 57eac a08-4 [facility] 17:02:00 17:02:00 r Specialties e8g-6tkq-0 l 697-84e55f Mi nn 5r145b 2014-05-29 2014-05-29 [facility] 7e48d e41-3 [facility] 16:02:00 16:02:00 r Specialties 70b-4316-9 l 5u6-y80xe6 Mi nn 43d88c 2014-05-29 2014-05-29 [facility] 55179 af9-2 [facility] 16:02:00 16:02:00 r Specialties 4c4-5i30-1 l v0g-912588 Mi nn 82d4ab 2014-05-29 2014-05-29 [facility] b16e6 e9a-4 [facility] 16:02:00 16:02:00 r Specialties 8de-4503-a l 620-008404 Mi nn 78849s 2014-05-29 2014-05-29 [facility] 42999 8a3-7 [facility] 16:02:00 16:02:00 r Specialties 704-4432-9 l 6k3-b7l13v Mi nn 67cb1e 2014-05-29 2014-05-29 [facility] e6395 f4c-3 [facility] 16:02:00 16:02:00 r Specialties r2z-5s13-s l m60-68v1v6 Mi nn 4i5237 2014-05-29 2014-05-29 [facility] 274a6 1a7-1 [facility] 16:02:00 16:02:00 r Specialties 51f-44b7-a l ae2-d06c08 Mi nn d723ec 2014-05-29 2014-05-29 [facility] 4c097 e8d-b [facility] 16:02:00 16:02:00 r Specialties ea6-47c8-b l 971-36adb7 Mi nn 23992f 2014-05-29 2014-05-29 [facility] 469ed da8-0 [facility] 16:02:00 16:02:00 r Specialties 287-4529-a l 257-1z0492 Mi nn 6f8570 2014-05-29 2014-05-29 [facility] a80e7 d36-6 [facility] 16:02:00 16:02:00 r Specialties 02d-4404-a l f09-r1r989 Mi nn 7ee5c8 2014-05-29 2014-05-29 [facility] 427d2 3ce-6 [facility] 16:02:00 16:02:00 r Specialties 07b-4379-a l q17-750p64 Mi nn c08673 2014-05-29 2014-05-29 [facility] 9d7ad 2d7-c [facility] 16:02:00 16:02:00 r Specialties d0e-6p87-3 l 976-53999p Mi nn gq330r 2014-05-29 2014-05-29 [facility] 0e2a7 c4e-f [facility] 16:02:00 16:02:00 r Specialties 199-404c-8 l 66b-ad30ba Mi nn 5bo211 2014-05-29 2014-05-29 [facility] df927 99a-5 [facility] 16:02:00 16:02:00 r Specialties 967-4c01-8 l 4h5-81x915 Mi nn ku6865 2014-05-29 2014-05-29 [facility] 3494e 72d-1 [facility] 16:02:00 16:02:00 r Specialties f14-4ba9-y l 7fa-37f0b8 Mi nn d6a3f7 2014-05-29 2014-05-29 [facility] f3ebd b22-9 [facility] 16:02:00 16:02:00 r Specialties c4f-1564-x l 71b-fcd3e9 [facility] nn a79da6 2014-05-29 2014-05-29 [facility] b1ae0 f31-e [facility] 16:02:00 16:02:00 r Specialties s3i-898v-t l 5af-c23c09 Mi nn 009b9d 2014-05-29 2014-05-29 [facility] bc31a 370-2 [facility] 16:02:00 16:02:00 r Specialties 99f-4ad5-b l 031-q0b766 [facility] nn 462c18 2014-05-29 2014-05-29 [facility] e4880 7b1-5 [facility] 16:02:00 16:02:00 r Specialties 47f-48b9-9 l 8bf-4a26e0 [facility] nn e46d86 2014-05-29 2014-05-29 [facility] ac986 a9d-4 [facility] 16:02:00 16:02:00 r Specialties m62-8pg8-q l 645-ab01b5 [facility] nn d13b10 2014-05-29 2014-05-29 [facility] 27201 3c3-2 [facility] 16:02:00 16:02:00 r Specialties 8bf-401b-8 l 8ad-4sl013 [facility] nn 94d1d4 2014-05-29 2014-05-29 [facility] 9ba2d 894-f [facility] 16:02:00 16:02:00 r Specialties aea-46c4-a l 084-28d9d0 [facility] nn 38f38e 2014-05-29 2014-05-29 [facility] 0ad5e dd5-b [facility] 16:02:00 16:02:00 r Specialties 4d5-2976-0 l 31b-g3x450 Mi nn 26afae 2014-05-29 2014-05-29 [facility] 76bc4 98d-e [facility] 16:02:00 16:02:00 r Specialties h28-7w52-8 l bde-e600ed Mi nn fc1f35 2014-05-29 2014-05-29 [facility] e3400 57c-e [facility] 16:02:00 16:02:00 r Specialties 1d7-3340-5 l 112-p01616 [facility] nn 24e6c9 2014-05-29 2014-05-29 [facility] 0a590 5e1-4 [facility] 16:02:00 16:02:00 r Specialties 5m4-5r2c-0 l 23c-eed8fb [facility] nn ccd2d0 2014-05-29 2014-05-29 [facility] 407a6 7f5-d [facility] 16:02:00 16:02:00 r Specialties 30b-40fc-9 l f49-25j6ez [facility] nn d608e7 2014-05-28 2014-05-28 R/S appt. [facility] 680 5lo06-c [facility] 15:17:00 15:17:00 r Specialties j3b-9eim-k l 083-0bd2b4 [facility] nn cg951o 2014-05-28 2014-05-28 R/S appt. [facility] 55c g1j9y-8 [facility] 15:17:00 15:17:00 r Specialties 638-4d9c-b l 3df-52l667 [facility] nn h7319f 2014-05-28 2014-05-28 R/S appt. nullFlavo [facility] 372 64f24-1 [facility] 15:17:00 15:17:00 r Specialties 458-4178-8 l 6cf-bf11a9 [facility] nn i2l710 2014-05-28 2014-05-28 R/S appt. nullFlavo [facility] 9d2 s566s-6 [facility] 15:17:00 15:17:00 r Specialties j58-2v46-c l 555-o5r662 [facility] nn 364174 7397-04-06 2014-05-28 R/S appt. nullFlavo [facility] 2f1 45362-g [facility] 15:17:00 15:17:00 r Specialties 986-4d2a-a l 1r7-94vhb8 [facility] nn 5ab9c9 2014-05-28 2014-05-28 R/S appt. nullFlavo [facility] 0e2 86358-1 [facility] 15:17:00 15:17:00 r Specialties q5c-2h48-k l 3ba-3zz100 Mi nn 8dbe18 2014-05-28 2014-05-28 R/S appt. nullFlavo [facility] bcc y16c8-v [facility] 15:17:00 15:17:00 r Specialties 2bf-4dfc-a l 490-4dfd18 Mi nn 63259d 2014-05-28 2014-05-28 R/S appt. nullFlavo [facility] 5e4 8t152-s [facility] 15:17:00 15:17:00 r Specialties 57f-4c24-b l 064-24bbc3 [facility] nn 676a77 2014-05-28 2014-05-28 R/S appt. nullFlavo [facility] 4ea 29p93-c [facility] 15:17:00 15:17:00 r Specialties 381-4c72-9 l a9g-y653e9 [facility] nn n38710 2014-05-28 2014-05-28 R/S appt. nullFlavo [facility] a6e b8258-4 [facility] 15:17:00 15:17:00 r Specialties y3h-28tg-7 l 019-18038c [facility] nn 6g4270 2014-05-28 2014-05-28 R/S appt. nullFlavo [facility] b5d 2h72t-9 [facility] 15:17:00 15:17:00 r Specialties k21-3v55-3 l df9-4l8576 [facility] nn 3caa85 2014-05-28 2014-05-28 R/S appt. nullFlavo [facility] ef6 ut0jt-3 [facility] 15:17:00 15:17:00 r Specialties t6w-39ct-f l 338-621b19 [facility] nn f2ef8f 2014-05-28 2014-05-28 R/S appt. nullFlavo [facility] fb6 50po3-g [facility] 15:17:00 15:17:00 r Specialties 6h1-5g22-t l y4y-v71794 [facility] nn ee63f0 2014-05-28 2014-05-28 R/S appt. nullFlavo [facility] f2b 6ut38-9 [facility] 15:17:00 15:17:00 r Specialties 577-4b61-b l da9-124238 [facility] nn 83398z 2014-05-28 2014-05-28 R/S appt. nullFlavo [facility] 63c 3f7g4-1 [facility] 15:17:00 15:17:00 r Specialties 673-4bcd-9 l 662-67139r [facility] nn 4345d2 2014-05-28 2014-05-28 R/S appt. nullFlavo [facility] a65 r1505-1 [facility] 15:17:00 15:17:00 r Specialties 008-4645-8 l 9cf-8mx720 [facility] nn 58p878 2014-05-28 2014-05-28 R/S appt. nullFlavo [facility] 889 59357-4 [facility] 15:17:00 15:17:00 r Specialties p88-57i6-v l 047-1194a7 [facility] bfaf8d 2014-05-28 2014-05-28 R/S appt. nullFlavo [facility] 5cc g5980-r [facility] 15:17:00 15:17:00 r Specialties 576-437c-8 l 883-9e2b25 [facility] nn 7wj729 2014-05-28 2014-05-28 R/S appt. nullFlavo [facility] 763 75400-o [facility] 15:17:00 15:17:00 r Specialties n3k-4qmc-p l m55-f48250 [facility] nn 42420e 2014-05-28 2014-05-28 R/S appt. nullFlavo [facility] c27 n6is1-u [facility] 15:17:00 15:17:00 r Specialties l4a-6bm4-a l 3p1-av1250 [facility] nn 078f1a 2014-05-28 2014-05-28 R/S appt. nullFlavo [facility] 06e 55262-x [facility] 15:17:00 15:17:00 r Specialties ef0-41ac-b l ed2-pca751 [facility] nn 44badc 2014-05-28 2014-05-28 R/S appt. nullFlavo [facility] 8e3 o5819-o [facility] 15:17:00 15:17:00 r Specialties 892-4859-9 l o8g-0758g3 Mi nn 80c37e 2014-05-28 2014-05-28 R/S appt. nullFlavo [facility] 10e 002q4-i [facility] 15:17:00 15:17:00 r Specialties 3j1-94u8-6 l 8l9-67749c Mi nn bcd2b4 2014-05-28 2014-05-28 R/S appt. nullFlavo [facility] 43c 5146e-c [facility] 14:17:00 14:17:00 r Specialties fb6-4d68-a l 565-i6n961 Mi nn 0a88ec 2014-05-28 2014-05-28 R/S appt. nullFlavo [facility] 7b0 0862f-9 [facility] 14:17:00 14:17:00 r Specialties 643-47e2-8 l 78b-962e2e Mi nn 7ffe15 2014-05-28 2014-05-28 R/S appt. nullFlavo [facility] 7d0 007bb-5 [facility] 14:17:00 14:17:00 r Specialties 336-4389-b l ccf-438bbc Mi nn 1dbc82 2014-05-28 2014-05-28 R/S appt. nullFlavo [facility] ed1 eyj7v-7 [facility] 14:17:00 14:17:00 r Specialties k7f-5512-i l 816-0292be Mi nn 299abf 2014-05-28 2014-05-28 R/S appt. nullFlavo [facility] f59 n3147-6 [facility] 14:17:00 14:17:00 r Specialties 743-4ff6-9 l 70b-11840z Mi nn b7d7cb 2014-05-28 2014-05-28 R/S appt. nullFlavo [facility] c00 7072b-e [facility] 14:17:00 14:17:00 r Specialties eca-41e5-b l 931-cfa2b3 Mi nn u69862 2014-05-28 2014-05-28 R/S appt. nullFlavo [facility] b34 411y9-9 [facility] 14:17:00 14:17:00 r Specialties ff4-478c-b l 780-f12698 [facility] nn 36620g 2014-05-28 2014-05-28 R/S appt. nullFlavo [facility] d82 9e002-2 [facility] 14:17:00 14:17:00 r Specialties z12-5399-r l 9m4-w693o5 Mi nn 4622fe 2014-05-28 2014-05-28 R/S appt. nullFlavo [facility] 2cd 8c8tv-3 [facility] 14:17:00 14:17:00 r Specialties 971-42ec-a l 9fa-d8a60f Mi nn 57c28e 2014-05-28 2014-05-28 R/S appt. nullFlavo [facility] 11a 3b285-7 [facility] 14:17:00 14:17:00 r Specialties miller kiln dried salt-4d47-a l 0h5-jj6t05 [facility] nn yb469n 2014-05-28 2014-05-28 R/S appt. nullFlavo [facility] d18 3x3h3-5 [facility] 14:17:00 14:17:00 r Specialties ac4-4752-9 l 085-2242fb [facility] nn 2eh438 2014-05-28 2014-05-28 R/S appt. nullFlavo [facility] 381 0330f-d [facility] 14:17:00 14:17:00 r Specialties 447-4224-9 l 7dd-24fca8 [facility] nn 213289 5986-04-06 2014-05-28 R/S appt. nullFlavo [facility] 2b2 43c91-0 [facility] 14:17:00 14:17:00 r Specialties u0e-179q-9 l t48-ni3fd4 [facility] nn 586454 3381-04-06 2014-05-28 R/S appt. nullFlavo [facility] 5b3 0098f-6 [facility] 14:17:00 14:17:00 r Specialties p59-8mk6-i l bcd-ef4ebe [facility] nn ip071x 2014-05-28 2014-05-28 R/S appt. nullFlavo [facility] 69e 3xn47-9 [facility] 14:17:00 14:17:00 r Specialties 434-45f1-b l 2a9-u82463 [facility] nn 42a30c 2014-05-28 2014-05-28 R/S appt. nullFlavo [facility] d77 6503f-b [facility] 14:17:00 14:17:00 r Specialties 82e-475d-9 l 273-1f6b59 [facility] nn 492ae4 2014-05-28 2014-05-28 R/S appt. nullFlavo [facility] 87d 58h83-o [facility] 14:17:00 14:17:00 r Specialties 9bb-40c6-8 l 88e-7c0fd1 [facility] nn 3f8a46 2014-05-28 2014-05-28 R/S appt. nullFlavo [facility] f0a 0w43f-5 [facility] 14:17:00 14:17:00 r Specialties v50-393h-s l ceb-d105b9 [facility] nn 9x3143 2014-05-28 2014-05-28 R/S appt. nullFlavo [facility] f35 0565d-7 [facility] 14:17:00 14:17:00 r Specialties 749-49d2-a l 90f-966d65 [facility] nn pbg451 2014-05-28 2014-05-28 R/S appt. nullFlavo [facility] 3bd 777x2-1 [facility] 14:17:00 14:17:00 r Specialties 1bc-477a-8 l u20-7r2591 [facility] nn 6f8cf7 2014-05-28 2014-05-28 R/S appt. nullFlavo [facility] e62 i69lo-m [facility] 14:17:00 14:17:00 r Specialties d10-97z5-5 l fa4-09dc0d [facility] nn 401a7e 2014-05-28 2014-05-28 R/S appt. nullFlavo [facility] bfe m56u3-7 [facility] 14:17:00 14:17:00 r Specialties 629-467a-a l n92-7w38uw [facility] nn 2fd11d 2014-05-28 2014-05-28 R/S appt. nullFlavo [facility] 0b1 61280-3 [facility] 14:17:00 14:17:00 r Specialties 6t2-1hq9-7 l 6ff-y40252 [facility] nn 70eb81 2014-05-28 2014-05-28 R/S appt. nullFlavo [facility] 099 j1i0p-c [facility] 14:17:00 14:17:00 r Specialties r1h-087v-e l 165-e295cd Mi nn mx5265 2014-05-28 2014-05-28 R/S appt. nullFlavo [facility] 847 79420-0 [facility] 14:17:00 14:17:00 r Specialties 61c-4a2d-b l 65b-6fc4a8 Mi nn 1ae8c3 2014-05-28 2014-05-28 R/S appt. nullFlavo [facility] 761 9h669-9 [facility] 14:17:00 14:17:00 r Specialties fb4-44b4-b l 00e-924914 Mi nn 394769 3467-03-31 2014-05-22 Needs an nullFlavo [facility] c2f0 fef1-a [facility] 21:03:00 21:03:00 appointmen r Specialties 964-4c7 3-a l t adc-rzw260 Mi nn scheduled 16f6df 2014-05-22 2014-05-22 Needs an nullFlavo [facility] 3919 c927-6 [facility] 21:03:00 21:03:00 appointmen r Specialties d47-4d1 1-b l t 796-a286be Mi nn scheduled c5b4a8 2014-05-22 2014-05-22 Needs an nullFlavo [facility] 0b2f f04a-7 [facility] 21:03:00 21:03:00 appointmen r Specialties b04-4f5 3-b l t 1z9-16j8un Mi nn scheduled 74c5cf 2014-05-22 2014-05-22 Needs an nullFlavo [facility] 1fc4 1b7e-4 [facility] 21:03:00 21:03:00 appointmen r Specialties 710-4e5 3-b l t e1o-n54721 Mi nn scheduled 5d57a2 2014-05-22 2014-05-22 Needs an nullFlavo [facility] 8368 371c-6 [facility] 21:03:00 21:03:00 appointmen r Specialties 9n6-38w 9-8 l t 79d-bdbe69 Mi nn scheduled 6uv192 2014-05-22 2014-05-22 Needs an nullFlavo [facility] e49a 9ad3-0 [facility] 21:03:00 21:03:00 appointmen r Specialties ed9-409 7-8 l t 32b-5pd286 Mi nn scheduled a30cdd 2014-05-22 2014-05-22 Needs an nullFlavo [facility] 09af d992-6 [facility] 21:03:00 21:03:00 appointmen r Specialties 53c-4b1 3-8 l t q72-ox7fa2 Mi nn scheduled 220a7e 2014-05-22 2014-05-22 Needs an nullFlavo [facility] 7d27 dfaa-8 [facility] 21:03:00 21:03:00 appointmen r Specialties 841-43d 5-a l t o9k-656824 Mi nn scheduled 784a44 2014-05-22 2014-05-22 Needs an nullFlavo [facility] 82bc 3107-8 [facility] 21:03:00 21:03:00 appointmen r Specialties 8ee-46b f-a l t y55-3f83h9 Mi nn scheduled b700a3 2014-05-22 2014-05-22 Needs an nullFlavo [facility] 7f92 24b2-f [facility] 21:03:00 21:03:00 appointmen r Specialties 7n5-436 8-8 l t 5m9-lx4c85 Mi nn scheduled aed6bb 2014-05-22 2014-05-22 Needs an nullFlavo [facility] c244 2e2b-3 [facility] 21:03:00 21:03:00 appointmen r Specialties s5x-598 3-9 l t db5-365cf4 Mi nn scheduled 70294z 2014-05-22 2014-05-22 Needs an nullFlavo [facility] a25d 32a6-6 [facility] 21:03:00 21:03:00 appointmen r Specialties 6d3-3d8 d-a l t 00f-e3fb70 Mi nn scheduled 4c7c87 2014-05-22 2014-05-22 Needs an nullFlavo [facility] f41f d27f-5 [facility] 21:03:00 21:03:00 appointmen r Specialties 6ef-4ed b-9 l t 56c-j68161 Mi nn scheduled 29042w 2014-05-22 2014-05-22 Needs an nullFlavo [facility] 1050 2359-c [facility] 21:03:00 21:03:00 appointmen r Specialties c99-40e 9-a l t 82d-903161 [facility] nn scheduled 7139dd 2014-05-22 2014-05-22 Needs an nullFlavo [facility] 7071 d938-7 [facility] 21:03:00 21:03:00 appointmen r Specialties 980-41b 7-9 l t 0bc-9ba3c4 [facility] nn scheduled p6424h 2014-05-22 2014-05-22 Needs an nullFlavo [facility] 1dc6 ad92-0 [facility] 21:03:00 21:03:00 appointmen r Specialties 3ba-401 9-b l t 040-19df47 Mi nn scheduled b054c4 2014-05-22 2014-05-22 Needs an nullFlavo [facility] 3f87 0946-9 [facility] 21:03:00 21:03:00 appointmen r Specialties eb9-48c 8-8 l t ce4-3em081 [facility] nn scheduled 2e43a6 2014-05-22 2014-05-22 Needs an nullFlavo [facility] b0d8 896b-c [facility] 21:03:00 21:03:00 appointmen r Specialties ce6-479 8-a l t 45c-575623 [facility] nn scheduled 0n1051 2014-05-22 2014-05-22 Needs an nullFlavo [facility] 9001 b885-7 [facility] 21:03:00 21:03:00 appointmen r Specialties 5de-4ab c-b l t 249-a63cbf Mi nn scheduled 01dbd2 2014-05-22 2014-05-22 Needs an nullFlavo [facility] 15fe 6a10-e [facility] 21:03:00 21:03:00 appointmen r Specialties 515-449 e-a l t 20b-l4988f [facility] nn scheduled d146a8 2014-05-22 2014-05-22 Needs an nullFlavo [facility] be11 189a-8 [facility] 21:03:00 21:03:00 appointmen r Specialties a68-45b e-8 l t 626-2cfbbe Mi nn scheduled 8e8b34 2014-05-22 2014-05-22 Needs an nullFlavo [facility] 0db5 0d84-1 [facility] 21:03:00 21:03:00 appointmen r Specialties 18d-4b3 7-b l t f28-508l80 Mi nn scheduled 786e6c 2014-05-22 2014-05-22 Needs an nullFlavo [facility] f3a6 e63c-f [facility] 21:03:00 21:03:00 appointmen r Specialties 112-455 8-8 l t fd3-d542a9 Mi nn scheduled 556b11 2014-05-22 2014-05-22 Needs an nullFlavo [facility] 4a85 a3a7-4 [facility] 20:03:00 20:03:00 appointmen r Specialties 001-4eb c-a l t 4dc-k5458z Mi nn scheduled 5ee9d2 2014-05-22 2014-05-22 Needs an nullFlavo [facility] 797b 5ffc-0 [facility] 20:03:00 20:03:00 appointmen r Specialties 158-4a7 d-9 l t p88-u32b3q Mi nn scheduled 10cfaa 2014-05-22 2014-05-22 Needs an nullFlavo [facility] 4704 f630-d [facility] 20:03:00 20:03:00 appointmen r Specialties 47c-443 f-a l t 9m0-cm6641 Mi nn scheduled 515a31 2014-05-22 2014-05-22 Needs an nullFlavo [facility] d226 4357-0 [facility] 20:03:00 20:03:00 appointmen r Specialties 33c-4a4 8-9 l t 9a9-6w9y71 Mi nn scheduled 4a7acb 2014-05-22 2014-05-22 Needs an nullFlavo [facility] 626e 91b1-a [facility] 20:03:00 20:03:00 appointmen r Specialties 13d-4ee b-9 l t ab8-942df6 Mi nn scheduled 423171 1685-03-31 2014-05-22 Needs an nullFlavo [facility] 4690 88b9-4 [facility] 20:03:00 20:03:00 appointmen r Specialties 218-446 4-b l t 697-kya359 [facility] nn scheduled ae4ec2 2014-05-22 2014-05-22 Needs an nullFlavo [facility] 0d7d a6ab-a [facility] 20:03:00 20:03:00 appointmen r Specialties 6b0-1y5 4-b l t 857-c37329 Mi nn scheduled a7af0f 2014-05-22 2014-05-22 Needs an nullFlavo [facility] fab7 608f-f [facility] 20:03:00 20:03:00 appointmen r Specialties b40-440 1-8 l t fbf-e1c00a [facility] nn scheduled 992a40 2014-05-22 2014-05-22 Needs an nullFlavo [facility] f406 f5e0-b [facility] 20:03:00 20:03:00 appointmen r Specialties c0q-127 3-b l t 67b-kl3483 [facility] nn scheduled v6z038 2014-05-22 2014-05-22 Needs an nullFlavo [facility] 9f59 c6ac-a [facility] 20:03:00 20:03:00 appointmen r Specialties 1f8-651 e-b l t u05-o740c8 [facility] nn scheduled l3530p 2014-05-22 2014-05-22 Needs an nullFlavo [facility] aae4 0588-9 [facility] 20:03:00 20:03:00 appointmen r Specialties 256-422 c-b l t 0q0-z3xwye [facility] nn scheduled 1ab7a4 2014-05-22 2014-05-22 Needs an nullFlavo [facility] 0617 69e0-6 [facility] 20:03:00 20:03:00 appointmen r Specialties 8a2-088 d-a l t 24e-4697dc [facility] nn scheduled 4f9f4e 2014-05-22 2014-05-22 Needs an nullFlavo [facility]ippa d5d0 7981-d [facility] 20:03:00 20:03:00 appointmen r Specialties ed1-42d 4-9 l t 5fc-0399bc [facility] nn scheduled 9e6ca1 2014-05-22 2014-05-22 Needs an nullFlavo [facility] 5383 6e08-f [facility] 20:03:00 20:03:00 appointmen r Specialties 182-4ab e-b l t 16d-d930bb [facility] nn scheduled 727089 7469-03-31 2014-05-22 Needs an nullFlavo [facility] 8f56 5db7-c [facility] 20:03:00 20:03:00 appointmen r Specialties 5v6-1t5 5-b l t j29-5hy352 [facility] nn scheduled j6810k 2014-05-22 2014-05-22 Needs an nullFlavo [facility] 4bab fbe9-2 [facility] 20:03:00 20:03:00 appointmen r Specialties ec9-40a f-8 l t 87c-nm027n [facility] nn scheduled f8bfaf 2014-05-22 2014-05-22 Needs an nullFlavo [facility]ippa 844a 1b1f-8 [facility] 20:03:00 20:03:00 appointmen r Specialties 236-40b 9-8 l t f64-281b15 [facility] nn scheduled 32582j 2014-05-22 2014-05-22 Needs an nullFlavo [facility]a 728c a68e-c [facility] 20:03:00 20:03:00 appointmen r Specialties 0s5-771 f-9 l t 891-8f61c4 [facility] nn scheduled 3c0fa6 2014-05-22 2014-05-22 Needs an nullFlavo [facility] 8f88 b954-7 [facility] 20:03:00 20:03:00 appointmen r Specialties c38-4b9 f-a l t i3e-nlc8q2 [facility] nn scheduled 3f3967 2014-05-22 2014-05-22 Needs an nullFlavo [facility]a 827c fe86-5 [facility] 20:03:00 20:03:00 appointmen r Specialties 0aa-4d9 4-9 l t ccb-0h1498 [facility] nn scheduled ced8e4 2014-05-22 2014-05-22 Needs an nullFlavo [facility]ippa 57a1 6bcc-6 [facility] 20:03:00 20:03:00 appointmen r Specialties 937-4c4 7-b l t y4v-29d0u0 Mi nn scheduled 28db0d 2014-05-22 2014-05-22 Needs an nullFlavo [facility] ff79 0083-2 [facility] 20:03:00 20:03:00 appointmen r Specialties 310-412 0-a l t 0r6-93023h Mi nn scheduled 0g6781 2014-05-22 2014-05-22 Needs an nullFlavo [facility] 6cc4 c87f-8 [facility] 20:03:00 20:03:00 appointmen r Specialties 100-419 a-b l t j4u-36th15 Mi nn scheduled e47b1a 2014-05-22 2014-05-22 Needs an nullFlavo [facility] b06f 15a6-f [facility] 20:03:00 20:03:00 appointmen r Specialties 27f-4f6 5-8 l t db9-794e20 Mi nn scheduled q82649 2014-05-22 2014-05-22 Needs an nullFlavo [facility] 7dbe 05ad-9 [facility] 20:03:00 20:03:00 appointmen r Specialties fdf-490 5-9 l t 8f3-w11761 Mi nn scheduled 15785a 2014-05-22 2014-05-22 Needs an nullFlavo [facility] 46f2 f707-9 [facility] 20:03:00 20:03:00 appointmen r Specialties a8s-869 9-b l t 1i3-045217 Mi nn scheduled 24ea71 2014-05-16 2014-05-16 Needs nullFlavo [facility] 1fa90 ac6-2 [facility] 14:15:00 14:15:00 referral r Specialties fea-46c8- 8 l 190-00c918 Mi nn bb91b5 2014-05-16 2014-05-16 Needs nullFlavo [facility]a 11473 e57-b [facility] 14:15:00 14:15:00 referral r Specialties 286-4a5c- a l 2fe-066ecc Mi nn ru6897 2014-05-16 2014-05-16 Needs nullFlavo [facility] e9b02 d6d-0 [facility] 14:15:00 14:15:00 referral r Specialties ffe-4c14- 8 l 4fd-571ed4 Mi nn a7a084 2014-05-16 2014-05-16 Needs nullFlavo [facility] 8b4ff a66-4 [facility] 14:15:00 14:15:00 referral r Specialties c8j-6t8i- b l ef2-7b804e Mi nn 03441d 2014-05-16 2014-05-16 Needs nullFlavo Knippa ce02e 9e3-5 [facility] 14:15:00 14:15:00 referral r Specialties 489-4619- 9 l 307-833045 Mi nn 1132fb 2014-05-16 2014-05-16 Needs nullFlavo [facility]ippa 50c81 8c7-f [facility] 14:15:00 14:15:00 referral r Specialties 762-498f- b l 482-d39a7f Mi nn e0dba2 2014-05-16 2014-05-16 Needs nullFlavo [facility]ippa 82acd b5e-0 [facility] 14:15:00 14:15:00 referral r Specialties cb2-4e94- a l 4y5-jsa81e Mi nn od2697 2014-05-16 2014-05-16 Needs nullFlavo [facility]ippa 3d6f3 c42-3 [facility] 14:15:00 14:15:00 referral r Specialties fd4-4cc3- 8 l d3b-1q4484 Mi nn fb3e62 2014-05-16 2014-05-16 Needs nullFlavo Knippa 628fc 378-7 [facility] 14:15:00 14:15:00 referral r Specialties 32a-45e1- 9 l 911-0274cc Mi nn 7fccb5 2014-05-16 2014-05-16 Needs nullFlavo [facility]ippa 7a71c bc1-8 [facility] 14:15:00 14:15:00 referral r Specialties 8i1-1268- b l z5i-541221 Mi nn 8cb13b 2014-05-16 2014-05-16 Needs nullFlavo [facility]ippa cb1ef cd6-e [facility] 14:15:00 14:15:00 referral r Specialties o2f-9wm3- 9 l 704-aa5bfd Mi nn 76m411 2014-05-16 2014-05-16 Needs nullFlavo Knippa 12c0d d14-6 [facility] 14:15:00 14:15:00 referral r Specialties 99c-4e5e- b l z9h-46rue8 Mi nn 33eab4 2014-05-16 2014-05-16 Needs nullFlavo Knippa 12b42 c13-d [facility] 14:15:00 14:15:00 referral r Specialties o0h-9063- 9 l 5eb-d08f03 Mi nn 7818da 2014-05-16 2014-05-16 Needs nullFlavo [facility]a 28b85 ac3-f [facility] 14:15:00 14:15:00 referral r Specialties 3bc-424c- 8 l bc0-b564cc Mi nn 58a303 2014-05-16 2014-05-16 Needs nullFlavo [facility]ippa 2742a 3b9-c [facility] 14:15:00 14:15:00 referral r Specialties 56b-484f- 9 l 7ca-02u856 Mi nn 8167d3 2014-05-16 2014-05-16 Needs nullFlavo [facility]ippa 74a02 c47-0 [facility] 14:15:00 14:15:00 referral r Specialties 8a8-284h- b l 078-8f9b08 Mi nn bfad20 2014-05-16 2014-05-16 Needs nullFlavo [facility]ippa 505ed 2c7-1 [facility] 14:15:00 14:15:00 referral r Specialties 89d-440d- 8 l fa8-7c74db Mi nn c68eb0 2014-05-16 2014-05-16 Needs nullFlavo [facility]a d03de 593-d [facility] 14:15:00 14:15:00 referral r Specialties 08a-44b4- a l 44d-5t3401 Mi nn 38abaa 2014-05-16 2014-05-16 Needs nullFlavo [facility]ippa 69633 f64-7 [facility] 14:15:00 14:15:00 referral r Specialties 98c-410d- b l 4u9-41z437 Mi nn 5414d2 2014-05-16 2014-05-16 Needs nullFlavo [facility]ipp[facility] a3a90 ee0-d [facility] 14:15:00 14:15:00 referral r Specialties 1ef-4bde- a l u7g-26s166 Mi nn 2236bf 2014-05-16 2014-05-16 Needs nullFlavo Knippa 0b4e4 648-8 [facility] 14:15:00 14:15:00 referral r Specialties 953-4a8a- 8 l n0n-40ec8y Mi nn 01698w 2014-05-16 2014-05-16 Needs nullFlavo Knippa af591 a03-1 [facility] 14:15:00 14:15:00 referral r Specialties g61-75v8- 8 l 77e-4c5c2a Mi nn kcu578 2014-05-16 2014-05-16 Needs nullFlavo Knippa 9b80b 234-e [facility] 14:15:00 14:15:00 referral r Specialties 251-4c5f- 8 l n20-809xfx Mi nn eb9bd7 2014-05-16 2014-05-16 Needs nullFlavo Knippa f3a4d f4f-6 [facility] 13:15:00 13:15:00 referral r Specialties 8r9-54ud- b l 8bb-52dbb1 Mi nn b79b7b 2014-05-16 2014-05-16 Needs nullFlavo Knippa c4892 465-6 [facility] 13:15:00 13:15:00 referral r Specialties fc7-4370- b l 6t9-gkp3ff Mi nn cc39b8 2014-05-16 2014-05-16 Needs nullFlavo Knippa 2ce47 103-5 [facility] 13:15:00 13:15:00 referral r Specialties 5q3-8ou3- 9 l 7y7-em2k24 Mi nn aa67bd 2014-05-16 2014-05-16 Needs nullFlavo Knippa 604e3 5de-b [facility] 13:15:00 13:15:00 referral r Specialties 0e3-8630- 9 l bc8-03f16f Mi nn f9e19e 2014-05-16 2014-05-16 Needs nullFlavo Knippa 68ec2 3d2-f [facility] 13:15:00 13:15:00 referral r Specialties 0q2-07is- 9 l ca1-4edadf Mi nn 022334 2105-03-25 2014-05-16 Needs nullFlavo Knippa ecbc4 511-5 [facility] 13:15:00 13:15:00 referral r Specialties 801-4d86- b l df7-3nk298 Mi nn e63cce 2014-05-16 2014-05-16 Needs nullFlavo Knippa 10a2e 0e8-f [facility] 13:15:00 13:15:00 referral r Specialties 958-4d7d- b l 9e1-6ilb64 Mi nn 37f5f0 2014-05-16 2014-05-16 Needs nullFlavo Knippa a743a 274-9 [facility] 13:15:00 13:15:00 referral r Specialties 90f-4092- 8 l 93c-26e5d8 Mi nn vk476t 2014-05-16 2014-05-16 Needs nullFlavo Knippa 171fd e57-4 [facility] 13:15:00 13:15:00 referral r Specialties cad-499b- 9 l 1fd-82e1a4 Mi nn d78fcf 2014-05-16 2014-05-16 Needs nullFlavo Knippa fea7b 517-e [facility] 13:15:00 13:15:00 referral r Specialties ec6-4924- 9 l 1j0-vx0j12 Mi nn 9e75f6 2014-05-16 2014-05-16 Needs nullFlavo Knippa 45b4b 79c-2 [facility] 13:15:00 13:15:00 referral r Specialties ae9-48ca- 9 l x94-6c0020 Mi nn 7r3328 2014-05-16 2014-05-16 Needs nullFlavo Knippa d160a 629-9 [facility] 13:15:00 13:15:00 referral r Specialties 5da-4267- 9 l 330-71aaa9 Mi nn 191bc9 2014-05-16 2014-05-16 Needs nullFlavo Knippa c852c a3e-8 [facility] 13:15:00 13:15:00 referral r Specialties s6a-997r- a l dcd-84241i Mi nn y1u480 2014-05-16 2014-05-16 Needs nullFlavo Knippa 88c45 ffa-e [facility] 13:15:00 13:15:00 referral r Specialties bf2-4d28- 8 l 0c6-fszzdh Mi nn 7e59e5 2014-05-16 2014-05-16 Needs nullFlavo Knippa 69ceb 017-7 [facility] 13:15:00 13:15:00 referral r Specialties dc5-4bc2- b l 68c-61b6e9 Mi nn d722d1 2014-05-16 2014-05-16 Needs nullFlavo Knippa 9075e 01a-3 [facility] 13:15:00 13:15:00 referral r Specialties 14b-40d3- b l y50-83481d Mi nn 806096 1154-03-25 2014-05-16 Needs nullFlavo Knippa 84db7 f44-b [facility] 13:15:00 13:15:00 referral r Specialties 4w8-9821- 8 l p44-r79895 Mi nn 3ccff9 2014-05-16 2014-05-16 Needs nullFlavo Knippa 5e2cb 09e-7 [facility] 13:15:00 13:15:00 referral r Specialties 839-4585- 9 l 769-438ca4 Mi nn ae6e2e 2014-05-16 2014-05-16 Needs nullFlavo Knippa 0329f 494-3 [facility] 13:15:00 13:15:00 referral r Specialties ebb-4553- 8 l 1c1-36kh40 Mi nn 765050 6653-03-25 2014-05-16 Needs nullFlavo Knippa aae22 d13-2 [facility] 13:15:00 13:15:00 referral r Specialties 774-4072- 8 l 0ad-aece6b Mi nn f997a7 2014-05-16 2014-05-16 Needs nullFlavo Knippa 52d4d d17-6 [facility] 13:15:00 13:15:00 referral r Specialties 5aa-4a2d- b l g29-826757 Mi nn 7bff6e 2014-05-16 2014-05-16 Needs nullFlavo Knippa ab8d1 efc-7 [facility] 13:15:00 13:15:00 referral r Specialties p35-2720- b l n92-h6wx28 Mi nn 8496a5 2014-05-16 2014-05-16 Needs nullFlavo Knippa 32f5b b87-5 [facility] 13:15:00 13:15:00 referral r Specialties y81-25zt- a l 8m2-x81n04 Mi nn 462e6c 2014-05-16 2014-05-16 Needs nullFlavo Knippa 78065 629-b [facility] 13:15:00 13:15:00 referral r Specialties 1e0-4c3w- 9 l 76a-553a8c Mi nn 96w687 2014-05-16 2014-05-16 Needs nullFlavo Knippa 78699 492-3 [facility] 13:15:00 13:15:00 referral r Specialties 1h5-50q8- a l i2s-5n7f2x Mi nn 2cb1e5 2014-05-16 2014-05-16 Needs nullFlavo Knippa 2d5e3 dd6-1 [facility] 13:15:00 13:15:00 referral r Specialties 42a-48c1- 8 l -63e1ff Mi nn j8172h 2014-05-16 2014-05-16 Needs nullFlavo Knippa 34239 740-7 [facility] 13:15:00 13:15:00 referral r Specialties 3z1-0h05- b l 896-ca1c48 Mi nn 64h278 2014-05-14 2014-05-14 Appt-UTLM nullFlavo Knippa 95a ba3ex-m [facility] 22:49:00 22:49:00 05/16 r Specialties 287-4389-8 l 85a-3377dd Mi nn 0b0bca 2014-05-14 2014-05-14 Appt-UTLM nullFlavo Knippa 367 d3t15-v [facility] 22:49:00 22:49:00 05/16 r Specialties cb1-488b-9 l j30-22y0k9 Mi nn b222e7 2014-05-14 2014-05-14 Appt-UTLM nullFlavo Knippa 18a d3v1k-c [facility] 22:49:00 22:49:00 05/16 r Specialties 57b-49bd-a l 9z5-4q2eq1 Mi nn 786cd2 2014-05-14 2014-05-14 Appt-UTLM nullFlavo Knippa 1ca o2t04-8 [facility] 22:49:00 22:49:00 05/16 r Specialties faa-4941-9 l 603-7d4a4f Mi nn dbcd61 2014-05-14 2014-05-14 Appt-UTLM nullFlavo Knippa 33c 4i5ii-4 [facility] 22:49:00 22:49:00 05/16 r Specialties 9p8-7r70-t l 4e1-9s68va Mi nn y11589 2014-05-14 2014-05-14 Appt-UTLM nullFlavo Knippa b5c 602ad-3 [facility] 22:49:00 22:49:00 05/16 r Specialties b59-3avl-9 l 54a-ae20f6 Mi nn c941fb 2014-05-14 2014-05-14 Appt-UTLM nullFlavo Knippa 7be 081fa-b [facility] 22:49:00 22:49:00 05/16 r Specialties 540-4656-9 l aa4-ffb45a Mi nn 78edb4 2014-05-14 2014-05-14 Appt-UTLM nullFlavo Knippa 232 1i66s-s [facility] 22:49:00 22:49:00 05/16 r Specialties 1ed-4362-9 l 122-e73e3d Mi nn 44d67e 2014-05-14 2014-05-14 Appt-UTLM nullFlavo Knippa 3b9 dw192-d [facility] 22:49:00 22:49:00 05/16 r Specialties 31a-4dbf-a l 865-20ab95 Mi nn b577cd 2014-05-14 2014-05-14 Appt-UTLM nullFlavo Knippa bf6 w63j1-r [facility] 22:49:00 22:49:00 05/16 r Specialties 202-467a-b l 02b-bb62f9 Mi nn a111a8 2014-05-14 2014-05-14 Appt-UTLM nullFlavo Knippa b67 1wj36-3 [facility] 22:49:00 22:49:00 05/16 r Specialties 958-450e-9 l n9t-7s203v Mi nn 7fcccb 2014-05-14 2014-05-14 Appt-UTLM nullFlavo Knippa 445 5d20k-1 [facility] 22:49:00 22:49:00 05/16 r Specialties 975-4dfe-b l 938-dbcd49 Mi nn 9fd4e3 2014-05-14 2014-05-14 Appt-UTLM nullFlavo Knippa 85d 67w34-2 [facility] 22:49:00 22:49:00 05/16 r Specialties 3v1-7lty-l l 948-4820b8 Mi nn 5ea0c2 2014-05-14 2014-05-14 Appt-UTLM nullFlavo Knippa 4b1 8bp75-5 [facility] 22:49:00 22:49:00 05/16 r Specialties 461-40bf-b l 406-b657a6 Mi nn 7deb8f 2014-05-14 2014-05-14 Appt-UTLM nullFlavo Knippa a0e 78d4b-0 [facility] 22:49:00 22:49:00 05/16 r Specialties 03e-447b-9 l 811-13e68a Mi nn 6yn817 2014-05-14 2014-05-14 Appt-UTLM nullFlavo Knippa 6d0 8i2kw-2 [facility] 22:49:00 22:49:00 05/16 r Specialties 5cb-4ea2-a l 641-30b77c Im nn 66c39c 2014-05-14 2014-05-14 Appt-UT nullFlavo Knippa c4e 61612-r [facility] 22:49:00 22:49:00 05/16 r Specialties 050-4fb6-9 l 602-3gb349 Mi nn 0d0abe 2014-05-14 2014-05-14 Appt-UTLM nullFlavo Knippa 550 h1z5g-0 [facility] 22:49:00 22:49:00 05/16 r Specialties 1db-4f9b-a l o71-5n2669 Mi nn 9723b1 2014-05-14 2014-05-14 Appt-UTLM nullFlavo Knippa 967 aba29-b [facility] 22:49:00 22:49:00 05/16 r Specialties 2i5-2795-4 l 253-15bfdc Mi nn 597007 5964-03-23 2014-05-14 Appt-UTLM nullFlavo Knippa 675 5wz54-4 [facility] 22:49:00 22:49:00 05/16 r Specialties 184-4c3d-a l h49-z9375d Mi nn 3w863n 2014-05-14 2014-05-14 Appt-UTLM nullFlavo Knippa e22 26445-5 [facility] 22:49:00 22:49:00 05/16 r Specialties 508-48bf-9 l 9ae-d36b8c [facility] nn d39a07 2014-05-14 2014-05-14 Appt-UTLM nullFlavo Knippa 7da au31o-j [facility] 22:49:00 22:49:00 05/16 r Specialties dc9-4e53-9 l 50c-54565f [facility] nn 463e1b 2014-05-14 2014-05-14 Appt-UTLM nullFlavo Knippa 624 3f1s3-d [facility] 22:49:00 22:49:00 05/16 r Specialties 29f-461f-a l 5y8-9z9638 [facility] nn b071af 2014-05-14 2014-05-14 Appt-UTLM nullFlavo Knippa 225 081fb-9 [facility] 21:49:00 21:49:00 05/16 r Specialties 6b0-745j-q l 8k9-246l2z [facility] nn 3y7677 2014-05-14 2014-05-14 Appt-UTLM nullFlavo Knippa 866 fecbf-8 [facility] 21:49:00 21:49:00 05/16 r Specialties 9df-41a7-a l 869-059231 [facility] nn da05c9 2014-05-14 2014-05-14 Appt-UTLM nullFlavo Knippa afe 38m09-7 [facility] 21:49:00 21:49:00 05/16 r Specialties 3o0-59pt-h l 2f7-9lc8gc [facility] nn 8iy577 2014-05-14 2014-05-14 Appt-UTLM nullFlavo Knippa 0e2 jv385-k [facility] 21:49:00 21:49:00 05/16 r Specialties 4c9-7gh0-7 l 81b-4d9316 [facility] nn d7ac5b 2014-05-14 2014-05-14 Appt-UTLM nullFlavo Knippa 0fc y8235-3 [facility] 21:49:00 21:49:00 05/16 r Specialties 293-49e5-b l y68-n576b1 Mi nn 83610o 2014-05-14 2014-05-14 Appt-UTLM nullFlavo Knippa 215 k3i57-j [facility] 21:49:00 21:49:00 05/16 r Specialties 7ee-4e01-a l 813-de9e10 Mi nn 257792 1430-03-23 2014-05-14 Appt-UTLM nullFlavo Knippa 823 0zr7s-q [facility] 21:49:00 21:49:00 05/16 r Specialties 56c-49f2-9 l g85-f3jy67 [facility] nn 718274 0225-03-23 2014-05-14 Appt-UTLM nullFlavo Knippa d50 094ef-8 [facility] 21:49:00 21:49:00 05/16 r Specialties w8d-4v68-3 l 8w2-d87fu9 [facility] nn 997765 1105-03-23 2014-05-14 Appt-UTLM nullFlavo Knippa 17e b44l9-4 [facility] 21:49:00 21:49:00 05/16 r Specialties o52-91vg-v l 6ac-5271f1 [facility] nn hp5057 2014-05-14 2014-05-14 Appt-UTLM nullFlavo Knippa 533 9450c-5 [facility] 21:49:00 21:49:00 05/16 r Specialties t7g-353f-1 l 67a-1d1f89 [facility] nn 379754 6214-03-23 2014-05-14 Appt-UTLM nullFlavo Knippa 77d 90439-2 [facility] 21:49:00 21:49:00 05/16 r Specialties 9t3-253g-s l m29-5s4am3 Mi nn 78ba65 2014-05-14 2014-05-14 Appt-UTLM nullFlavo Knippa 5f7 32p4w-e [facility] 21:49:00 21:49:00 05/16 r Specialties a31-0979-g l 32a-05e1ff Mi nn 81be0d 2014-05-14 2014-05-14 Appt-UTLM nullFlavo Knippa 551 se0z9-1 [facility] 21:49:00 21:49:00 05/16 r Specialties 0w7-1kl5-o l 1m9-ihf85c Mi nn ce013s 2014-05-14 2014-05-14 Appt-UTLM nullFlavo Knippa 93d 67vr2-1 [facility] 21:49:00 21:49:00 05/16 r Specialties r54-8466-w l 51b-f9c2c5 Mi nn 03ec37 2014-05-14 2014-05-14 Appt-UTLM nullFlavo Knippa 7f6 s648b-8 [facility] 21:49:00 21:49:00 05/16 r Specialties 423-4b88-a l y65-8e600c Mi nn 62101e 2014-05-14 2014-05-14 Appt-UTLM nullFlavo Knippa afd 230ff-f [facility] 21:49:00 21:49:00 05/16 r Specialties cfb-4b04-8 l 7q5-u73jt4 Mi nn 35o763 2014-05-14 2014-05-14 Appt-UTLM nullFlavo Knippa 028 04101-4 [facility] 21:49:00 21:49:00 05/16 r Specialties 1r0-4d3h-l l z58-38y157 Mi nn b6b13a 2014-05-14 2014-05-14 Appt-UTLM nullFlavo Knippa 864 e95ce-k [facility] 21:49:00 21:49:00 05/16 r Specialties 2q3-9e86-z l ac9-as8838 Mi nn 3c87c8 2014-05-14 2014-05-14 Appt-UTLM nullFlavo Knippa 733 63l2k-n [facility] 21:49:00 21:49:00 05/16 r Specialties 79b-4471-9 l ab2-a7a2de Mi nn c4c97f 2014-05-14 2014-05-14 Appt-UTLM nullFlavo Knippa 2d7 241ac-2 [facility] 21:49:00 21:49:00 05/16 r Specialties 4b8-7718-x l 543-3p5845 Mi nn 659f05 2014-05-14 2014-05-14 Appt-UTLM nullFlavo Knippa 479 41y60-c [facility] 21:49:00 21:49:00 05/16 r Specialties 3d4-3527-r l 677-3u727p Mi nn 622927 0316-03-23 2014-05-14 Appt-UTLM nullFlavo Knippa 060 a881i-m [facility] 21:49:00 21:49:00 05/16 r Specialties s09-07w5-1 l 917-719450 Mi nn 82378r 2014-05-14 2014-05-14 Appt-UTLM nullFlavo Knippa 3ee c2nm1-9 [facility] 21:49:00 21:49:00 05/16 r Specialties x7z-7h0s-m l 5k1-m4n6i6 Mi nn d2817v 2014-05-14 2014-05-14 Appt-UT nullFlavo Knippa 67c qe755-n [facility] 21:49:00 21:49:00 05/16 r Specialties v00-2z3x-f l o3f-7391kc Mi nn 5s874n 2014-05-14 2014-05-14 Appt-UT nullFlavo Knippa 4ec x32ly-0 [facility] 21:49:00 21:49:00 05/16 r Specialties y85-2707-4 l 40d-n9t015 Mi nn 3fdb76 2014-05-14 2014-05-14 Appt-UTLM nullFlavo Knippa ec5 231j4-c [facility] 21:49:00 21:49:00 05/16 r Specialties fcb-4745-b l 92c-b0e4fd Mi nn 6ceb22 2014-04-25 2014-04-25 Question nullFlavo Knippa 68d7 d004-5 [facility] 20:08:00 20:08:00 on Labs - r Specialties 3g6-714f -9 l answered f84-j3k7c9 [facility] 3a2bdd 2014-04-25 2014-04-25 Question nullFlavo Knippa 6b90 769e-2 [facility] 20:08:00 20:08:00 on Labs - r Specialties 52f-4ed3 -9 l answered 207-d1b5de [facility] 93c1a8 2014-04-25 2014-04-25 Question nullFlavo Knippa cb75 b2ad-1 [facility] 20:08:00 20:08:00 on Labs - r Specialties 04b-4d0b -8 l answered s75-f80451 [facility] f2e40d 2014-04-25 2014-04-25 Question nullFlavo Knippa 0cc2 397d-0 [facility] 20:08:00 20:08:00 on Labs - r Specialties ee8-4734 -8 l answered fca-f4af51 [facility] 77u859 2014-04-25 2014-04-25 Question nullFlavo Knippa eb8c f4bc-c [facility] 20:08:00 20:08:00 on Labs - r Specialties 126-491c -8 l answered r0b-wnw50d [facility] bd8b34 2014-04-25 2014-04-25 Question nullFlavo Knippa b6ec c0f9-5 [facility] 20:08:00 20:08:00 on Labs - r Specialties 565-4c5b -8 l answered 3dc-6n694u [facility] 40667d 2014-04-25 2014-04-25 Question nullFlavo Knippa 793a d053-e [facility] 20:08:00 20:08:00 on Labs - r Specialties 5h1-839v -9 l answered 895-117180 [facility] 878e17 2014-04-25 2014-04-25 Question nullFlavo Knippa 9a3a 90e1-1 [facility] 20:08:00 20:08:00 on Labs - r Specialties 410-4b60 -b l answered ba9-633711 [facility] 795899 2107-03-04 2014-04-25 Question nullFlavo Knippa fa71 895c-0 [facility] 20:08:00 20:08:00 on Labs - r Specialties u2b-8w37 -9 l answered 649-z2501s [facility] 670ec6 2014-04-25 2014-04-25 Question nullFlavo Knippa fac2 520e-7 [facility] 20:08:00 20:08:00 on Labs - r Specialties fea-42e8 -b l answered 166-a49ee8 [facility] i8494i 2014-04-25 2014-04-25 Question nullFlavo Knippa 105a 0432-0 [facility] 20:08:00 20:08:00 on Labs - r Specialties 33f-4f35 -b l answered a48-46919z [facility] cda69b 2014-04-25 2014-04-25 Question nullFlavo Knippa 842a 73e3-8 [facility] 20:08:00 20:08:00 on Labs - r Specialties bc7-48b2 -8 l answered cb1-0810e9 [facility] l3o137 2014-04-25 2014-04-25 Question nullFlavo Knippa 509b 7408-0 [facility] 20:08:00 20:08:00 on Labs - r Specialties 6ac-4e14 -9 l answered 89a-69b3ed [facility] v5364s 2014-04-25 2014-04-25 Question nullFlavo Knippa 5262 833a-0 [facility] 20:08:00 20:08:00 on Labs - r Specialties 63a-4a44 -b l answered 24f-s1i368 [facility] e0ac18 2014-04-25 2014-04-25 Question nullFlavo Knippa d0a9 1e34-c [facility] 20:08:00 20:08:00 on Labs - r Specialties 402-4f81 -9 l answered 74b-deda21 [facility] j[facility] 272cdc 2014-04-25 2014-04-25 Question nullFlavo Knippa daa5 709c-7 [facility] 20:08:00 20:08:00 on Labs - r Specialties 6h1-1cqq -a l answered 621-ddc5ee [facility] 01c4b2 2014-04-25 2014-04-25 Question nullFlavo Knippa 5ec9 f220-3 [facility] 20:08:00 20:08:00 on Labs - r Specialties e89-5zkl -a l answered v52-x1sgr6 [facility] edb1f0 2014-04-25 2014-04-25 Question nullFlavo Knippa 5148 4367-8 [facility] 20:08:00 20:08:00 on Labs - r Specialties abc-400d -b l answered 67a-40ab1b [facility] 97p060 2014-04-25 2014-04-25 Question nullFlavo Knippa 2581 6542-7 [facility] 20:08:00 20:08:00 on Labs - r Specialties l0x-744e -9 l answered 7fe-f4ca3a [facility] c3fc9b 2014-04-25 2014-04-25 Question nullFlavo Knippa 4acd 39c0-c [facility] 20:08:00 20:08:00 on Labs - r Specialties 974-4fc2 -a l answered a2z-61xz0v [facility] cq066y 2014-04-25 2014-04-25 Question nullFlavo Knippa 4f33 7016-4 [facility] 20:08:00 20:08:00 on Labs - r Specialties q84-6o1l -a l answered dd6-fw793v [facility] j[facility] 97bfd0 2014-04-25 2014-04-25 Question nullFlavo Knippa 79f9 0827-a [facility] 20:08:00 20:08:00 on Labs - r Specialties y04-3dk5 -9 l answered dc9-788e27 [facility] a06e56 2014-04-25 2014-04-25 Question nullFlavo Knippa e758 6d0d-8 [facility] 20:08:00 20:08:00 on Labs - r Specialties w7u-0946 -b l answered b0v-73838p [facility] junaid 632097 5678-03-04 2014-04-25 Question nullFlavo Knippa 01e5 2b02-7 [facility] 19:08:00 19:08:00 on Labs - r Specialties n11-2uon -a l answered 2e9-kt12n4 [facility] c1250e 2014-04-25 2014-04-25 Question nullFlavo Knippa 2847 f5df-d [facility] 19:08:00 19:08:00 on Labs - r Specialties 945-4807 -b l answered 840-814735 [facility] 2t5192 2014-04-25 2014-04-25 Question nullFlavo Knippa ef43 8b0e-8 [facility] 19:08:00 19:08:00 on Labs - r Specialties a87-5xc2 -b l answered 74c-daf5c1 [facility] 10q662 2014-04-25 2014-04-25 Question nullFlavo Knippa bede 0562-7 [facility] 19:08:00 19:08:00 on Labs - r Specialties l07-52b4 -9 l answered de2-d09bd9 [facility] 095f85 2014-04-25 2014-04-25 Question nullFlavo Knippa 9a3b 8042-1 [facility] 19:08:00 19:08:00 on Labs - r Specialties 2h2-75p1 -a l answered s9j-bo4q10 [facility] 64b75f 2014-04-25 2014-04-25 Question nullFlavo Knippa 25e8 5141-9 [facility] 19:08:00 19:08:00 on Labs - r Specialties 5q3-2777 -b l answered 181-fab3bc [facility] c4fa02 2014-04-25 2014-04-25 Question nullFlavo Knippa 8fe7 b950-5 [facility] 19:08:00 19:08:00 on Labs - r Specialties kizzy-4688 -9 l answered fe0-c8ce7d [facility] 8cc0dd 2014-04-25 2014-04-25 Question nullFlavo Knippa 45a7 b67c-2 [facility] 19:08:00 19:08:00 on Labs - r Specialties 6h9-01c4 -b l answered 64f-53467u [facility] 2431af 2014-04-25 2014-04-25 Question nullFlavo Knippa 017f 8c07-2 [facility] 19:08:00 19:08:00 on Labs - r Specialties ba0-4550 -9 l answered 80e-a7cf91 [facility] 8844f4 2014-04-25 2014-04-25 Question nullFlavo Knippa 1487 739a-1 [facility] 19:08:00 19:08:00 on Labs - r Specialties 11a-4294 -a l answered 259-08210m [facility] f75ba5 2014-04-25 2014-04-25 Question nullFlavo Knippa bce6 7177-6 [facility] 19:08:00 19:08:00 on Labs - r Specialties 48d-4da9 -a l answered 7o0-l5c2jf [facility] h4132k 2014-04-25 2014-04-25 Question nullFlavo Knippa 1ee5 3b1f-0 [facility] 19:08:00 19:08:00 on Labs - r Specialties v04-4g9g -a l answered 359-cfb2c0 [facility] dfb17e 2014-04-25 2014-04-25 Question nullFlavo Knippa 4762 d36b-2 [facility] 19:08:00 19:08:00 on Labs - r Specialties 30e-4d7c -b l answered 236-c0d71a [facility] 76f5f5 2014-04-25 2014-04-25 Question nullFlavo Knippa ba49 8ed5-2 [facility] 19:08:00 19:08:00 on Labs - r Specialties 759-4055 -9 l answered 2cd-714ab2 [facility] bcb37f 2014-04-25 2014-04-25 Question nullFlavo Knippa 4db4 fd3a-c [facility] 19:08:00 19:08:00 on Labs - r Specialties 933-44a7 -a l answered 8ca-2868c4 [facility] 7aab1a 2014-04-25 2014-04-25 Question nullFlavo Knippa 6104 169a-3 [facility] 19:08:00 19:08:00 on Labs - r Specialties eed-47a8 -9 l answered s45-n8w062 [facility] 3ea3d3 2014-04-25 2014-04-25 Question nullFlavo Knippa a553 9875-7 [facility] 19:08:00 19:08:00 on Labs - r Specialties fa8-4683 -b l answered 67a-skk855 [facility] e0401w 2014-04-25 2014-04-25 Question nullFlavo Knippa c756 0bcf-5 [facility] 19:08:00 19:08:00 on Labs - r Specialties g81-6s90 -b l answered ca8-z5x942 [facility] 8c52b2 2014-04-25 2014-04-25 Question nullFlavo Knippa efcb bfb0-b [facility] 19:08:00 19:08:00 on Labs - r Specialties r4r-6433 -a l answered 9u5-746l9v [facility] b0ea13 2014-04-25 2014-04-25 Question nullFlavo Knippa 3289 b104-e [facility] 19:08:00 19:08:00 on Labs - r Specialties aa5-49a5 -b l answered 338-86417d [facility] j[facility] 395a61 2014-04-25 2014-04-25 Question nullFlavo Knippa 9467 f843-6 [facility] 19:08:00 19:08:00 on Labs - r Specialties m54-3i6b -9 l answered 9d1-j783s5 [facility] j[facility] 121c3e 2014-04-25 2014-04-25 Question nullFlavo Knippa 3f8e 4a99-1 [facility] 19:08:00 19:08:00 on Labs - r Specialties ffd-4dcb -9 l answered 130-91531b [facility] junaid 723589 6245-03-04 2014-04-25 Question nullFlavo Knippa c704 2222-5 [facility] 19:08:00 19:08:00 on Labs - r Specialties 989-45c3 -b l answered 133-e9be95 [facility] junaid 4f89db 2014-04-25 2014-04-25 Question nullFlavo Knippa ed5c 75c0-3 [facility] 19:08:00 19:08:00 on Labs - r Specialties 46f-4a7a -9 l answered adc-24ba3f [facility] j[facility] 1qh332 2014-04-25 2014-04-25 Question nullFlavo Knippa 2173 0911-c [facility] 19:08:00 19:08:00 on Labs - r Specialties c96-11u6 -b l answered dd7-33ef3b [facility] juna[facility] 512e19 2014-04-25 2014-04-25 Question nullFlavo Knippa aab3 4cd7-a [facility] 19:08:00 19:08:00 on Labs - r Specialties 6f9-9nkl -9 l answered v79-7k643x [facility] juna[facility] f705e4 2014-04-25 2014-04-25 Question nullFlavo Knippa b728 3fd9-5 [facility] 19:08:00 19:08:00 on Labs - r Specialties aa0-4746 -8 l answered 92a-d77f09 [facility] j[facility] df87ea 2014-04-04 2014-04-04 2 Day nullFlavo Knippa f6dc9 df8-e [facility] 19:00:00 19:00:00 Follow-Up r Specialties 108-44fe -a l 8fd-88006s Mi nn 8460d2 2014-04-04 2014-04-04 2 Day nullFlavo Knippa e5923 964-d [facility] 19:00:00 19:00:00 Follow-Up r Specialties 994-4795 -8 l 10e-91a5e6 [facility] 9076ea 2014-04-04 2014-04-04 2 Day nullFlavo Knippa 0e328 bb6-c [facility] 19:00:00 19:00:00 Follow-Up r Specialties 9k0-40b5 -a l 768-eeebf2 [facility] 135775 2141-02-11 2014-04-04 2 Day nullFlavo Knippa d9e58 c81-5 [facility] 19:00:00 19:00:00 Follow-Up r Specialties 51c-4156 -b l l47-20yhui [facility] 446092 3983-02-11 2014-04-04 2 Day nullFlavo Knippa 02bf4 7ca-2 [facility] 19:00:00 19:00:00 Follow-Up r Specialties u1w-087v -a l 0t1-87002y [facility] ca8ea7 2014-04-04 2014-04-04 2 Day nullFlavo Knippa 1c08b 9aa-d [facility] 19:00:00 19:00:00 Follow-Up r Specialties c62-081r -8 l 9i1-glo3dr [facility] 877884 4493-02-11 2014-04-04 2 Day nullFlavo Knippa e53c9 902-e [facility] 19:00:00 19:00:00 Follow-Up r Specialties 34c-40ed -8 l r28-08gml8 [facility] 63b30b 2014-04-04 2014-04-04 2 Day nullFlavo Knippa 318ee 8a7-0 [facility] 19:00:00 19:00:00 Follow-Up r Specialties 108-45b3 -8 l 52e-0c6eed [facility] 50872p 2014-04-04 2014-04-04 2 Day nullFlavo Knippa 35328 301-a [facility] 19:00:00 19:00:00 Follow-Up r Specialties 87a-4d09 -8 l 6j9-9sm662 [facility] 324234 4060-02-11 2014-04-04 2 Day nullFlavo Knippa 1f586 924-3 [facility] 19:00:00 19:00:00 Follow-Up r Specialties 17b-46a1 -a l aec-8083d9 [facility] yw8860 2014-04-04 2014-04-04 2 Day nullFlavo Knippa a457a be0-4 [facility] 19:00:00 19:00:00 Follow-Up r Specialties c59-783a -b l 322-2a0cee [facility] nn fb39e8 2014-04-04 2014-04-04 2 Day nullFlavo Knippa 5253f 50e-b [facility] 19:00:00 19:00:00 Follow-Up r Specialties k96-812k -b l n34-37hl25 [facility] nn 8838c0 2014-04-04 2014-04-04 2 Day nullFlavo Knippa 93b5d 47f-c [facility] 19:00:00 19:00:00 Follow-Up r Specialties 68a-4a90 -8 l 0b4-b1o945 [facility] nn 0qn655 2014-04-04 2014-04-04 2 Day nullFlavo Knippa 39263 6ab-0 [facility] 19:00:00 19:00:00 Follow-Up r Specialties 219-4b0b -8 l 772-3mq285 [facility] nn gu3736 2014-04-04 2014-04-04 2 Day nullFlavo Knippa 53bb7 380-9 [facility] 19:00:00 19:00:00 Follow-Up r Specialties 1fd-48f0 -9 l m2w-84s775 [facility] nn 93cb7c 2014-04-04 2014-04-04 2 Day nullFlavo Knippa d32fa c5b-d [facility] 19:00:00 19:00:00 Follow-Up r Specialties p84-7333 -9 l cd0-c555ca [facility] nn 13c70c 2014-04-04 2014-04-04 2 Day nullFlavo Knippa 73200 bd9-e [facility] 19:00:00 19:00:00 Follow-Up r Specialties 554-4e5c -b l fd0-ed7f11 [facility] nn 114f77 2014-04-04 2014-04-04 2 Day nullFlavo Knippa 487da 0b5-5 [facility] 19:00:00 19:00:00 Follow-Up r Specialties g04-440h -b l fcf-63f62c [facility] nn 6b0424 2014-04-04 2014-04-04 2 Day nullFlavo Knippa 3f289 fac-4 [facility] 19:00:00 19:00:00 Follow-Up r Specialties a86-39p9 -9 l w1r-916s2n Mi nn 446b7d 2014-04-04 2014-04-04 2 Day nullFlavo Knippa 6208a 3c3-0 [facility] 19:00:00 19:00:00 Follow-Up r Specialties a1c-603j -9 l 828-35980a Mi nn 829ed5 2014-04-04 2014-04-04 2 Day nullFlavo Knippa c791c 55c-c [facility] 19:00:00 19:00:00 Follow-Up r Specialties 650-49ec -b l n8o-1kg17f Mi nn q5488o 2014-04-04 2014-04-04 2 Day nullFlavo Knippa 6975f b4f-4 [facility] 19:00:00 19:00:00 Follow-Up r Specialties 44c-4874 -b l ada-6a03a7 Mi nn 90b62a 2014-04-04 2014-04-04 2 Day nullFlavo Knippa 1eaff a6b-a [facility] 19:00:00 19:00:00 Follow-Up r Specialties r07-2874 -a l 6ae-f524ad Mi nn r00688 2014-04-04 2014-04-04 2 Day nullFlavo Knippa 0b936 2ea-d [facility] 19:00:00 19:00:00 Follow-Up r Specialties 24f-49f7 -a l 389-685747 Mi nn d5cdd5 2014-04-04 2014-04-04 2 Day nullFlavo Knippa 352a2 2a4-e [facility] 18:00:00 18:00:00 Follow-Up r Specialties 3o9-6r97 -b l w1v-gu6ii1 Mi nn 16r452 2014-04-04 2014-04-04 2 Day nullFlavo Knippa efde1 614-8 [facility] 18:00:00 18:00:00 Follow-Up r Specialties 039-4fbd -8 l 360-0df70a Mi nn 999dd0 2014-04-04 2014-04-04 2 Day nullFlavo Knippa 55159 7da-f [facility] 18:00:00 18:00:00 Follow-Up r Specialties 28a-4ce0 -9 l 2k7-8f3uz6 Mi nn c3ec32 2014-04-04 2014-04-04 2 Day nullFlavo Knippa 7619c e7c-5 [facility] 18:00:00 18:00:00 Follow-Up r Specialties 194-4b35 -a l s38-b3mye9 Mi nn 7a6b06 2014-04-04 2014-04-04 2 Day nullFlavo Knippa 18e1a 7a5-3 [facility] 18:00:00 18:00:00 Follow-Up r Specialties 40d-4956 -9 l 793-d321b2 Mi nn b2bb41 2014-04-04 2014-04-04 2 Day nullFlavo Knippa 99322 ef4-b [facility] 18:00:00 18:00:00 Follow-Up r Specialties 48e-431a -8 l 8da-5a00b7 Mi nn 2o4538 2014-04-04 2014-04-04 2 Day nullFlavo Knippa 424c6 e52-d [facility] 18:00:00 18:00:00 Follow-Up r Specialties 5ff-4dc7 -9 l 6eb-95af67 Mi nn h2269n 2014-04-04 2014-04-04 2 Day nullFlavo Knippa 66c14 2e3-0 [facility] 18:00:00 18:00:00 Follow-Up r Specialties 7l0-4716 -a l bb4-4b1cf5 Mi nn 2e805e 2014-04-04 2014-04-04 2 Day nullFlavo Knippa 53b6f 55b-f [facility] 18:00:00 18:00:00 Follow-Up r Specialties 93e-42e5 -a l 8j9-02145b Mi nn 9f0d12 2014-04-04 2014-04-04 2 Day nullFlavo Knippa 4f6aa 868-d [facility] 18:00:00 18:00:00 Follow-Up r Specialties 15a-41df -b l 023-308899 Mi nn ad22a3 2014-04-04 2014-04-04 2 Day nullFlavo Knippa 36a6b 708-4 [facility] 18:00:00 18:00:00 Follow-Up r Specialties 95a-4a28 -a l b82-a74603 Mi nn 5076a6 2014-04-04 2014-04-04 2 Day nullFlavo Knippa 9e5e4 4a1-3 [facility] 18:00:00 18:00:00 Follow-Up r Specialties ff4-4f4c -8 l 836-621570 Mi nn 191dd3 2014-04-04 2014-04-04 2 Day nullFlavo Knippa a1d75 4ed-d [facility] 18:00:00 18:00:00 Follow-Up r Specialties db9-4a80 -a l u79-n9m0xu Mi nn c84a4e 2014-04-04 2014-04-04 2 Day nullFlavo Knippa e51a1 6ff-a [facility] 18:00:00 18:00:00 Follow-Up r Specialties u60-486c -9 l bcd-a8099r Mi nn eaaf17 2014-04-04 2014-04-04 2 Day nullFlavo Knippa 74d61 322-2 [facility] 18:00:00 18:00:00 Follow-Up r Specialties 279-4133 -a l u4u-58jgd7 Mi nn 48l475 2014-04-04 2014-04-04 2 Day nullFlavo Knippa 549f5 86a-e [facility] 18:00:00 18:00:00 Follow-Up r Specialties 148-4907 -a l 2g9-406286 Mi nn 183da0 2014-04-04 2014-04-04 2 Day nullFlavo Knippa 1b7ab 987-5 [facility] 18:00:00 18:00:00 Follow-Up r Specialties u4l-7f8n -8 l 46d-53fb1d [facility] nn y7i524 2014-04-04 2014-04-04 2 Day nullFlavo Knippa 18ea1 965-8 [facility] 18:00:00 18:00:00 Follow-Up r Specialties 53f-4217 -9 l 1y8-1637v4 Mi nn 484cd8 2014-04-04 2014-04-04 2 Day nullFlavo Knippa 99783 1e5-b [facility] 18:00:00 18:00:00 Follow-Up r Specialties 91e-428a -8 l 46e-9aaee3 Im nn 1vi226 2014-04-04 2014-04-04 2 Day nullFlavo Knippa 299d1 8c5-b [facility] 18:00:00 18:00:00 Follow-Up r Specialties s63-23i6 -b l 57e-45bcfd Mi nn 4e3d9a 2014-04-04 2014-04-04 2 Day nullFlavo Knippa dbfad 9e3-b [facility] 18:00:00 18:00:00 Follow-Up r Specialties a20-3jcj -b l 7y3-b43486 Mi nn os199z 2014-04-04 2014-04-04 2 Day nullFlavo Knippa b76a4 ac8-6 [facility] 18:00:00 18:00:00 Follow-Up r Specialties 2s6-3w7j -a l cca-88s251 Mi nn 887e29 2014-04-04 2014-04-04 2 Day nullFlavo Knippa 79f3b 9bd-6 [facility] 18:00:00 18:00:00 Follow-Up r Specialties af1-47f9 -b l 8u7-100a26 Mi nn 753475 6598-02-11 2014-04-04 2 Day nullFlavo Knippa 71cff 993-d [facility] 18:00:00 18:00:00 Follow-Up r Specialties 301-492c -8 l t62-61p12q Mi nn 3y480q 2014-04-04 2014-04-04 2 Day nullFlavo Knippa 8ee1d d72-4 [facility] 18:00:00 18:00:00 Follow-Up r Specialties 3k7-70r6 -b l 3ad-f9dd43 Mi nn a101ca 2014-04-04 2014-04-04 2 Day nullFlavo Knippa e84ba f1b-7 [facility] 18:00:00 18:00:00 Follow-Up r Specialties 2f2-2531 -8 l u9q-n3549c Mi nn 007532 7353-02-11 2014-04-04 2 Day nullFlavo Knippa 58c27 be1-a [facility] 18:00:00 18:00:00 Follow-Up r Specialties ae2-45f2 -8 l 1ae-0fb4c1 Mi nn 39b1dd 2014-04-02 2014-04-02 3 Month nullFlavo Knippa fd248 236-7 [facility] 14:30:00 14:30:00 Follow-Up r Specialties 643-4004 -b l 2bb-eaf99d Mi nn 7863bf 2014-04-02 2014-04-02 3 Month nullFlavo Knippa 70ff5 c40-d [facility] 14:30:00 14:30:00 Follow-Up r Specialties 2z1-8h49 -b l 0l6-j920fn Mi nn 3bca4e 2014-04-02 2014-04-02 3 Month nullFlavo Knippa 7aad7 76d-4 [facility] 14:30:00 14:30:00 Follow-Up r Specialties 981-4664 -b l 2ad-e835d1 Mi nn 7d42d7 2014-04-02 2014-04-02 3 Month nullFlavo Knippa 4c8d0 255-3 [facility] 14:30:00 14:30:00 Follow-Up r Specialties cd6-4434 -a l 843-c66eca Mi nn 0s264j 2014-04-02 2014-04-02 3 Month nullFlavo Knippa bccf5 7c8-a [facility] 14:30:00 14:30:00 Follow-Up r Specialties 39d-4b50 -a l 3bc-828c54 Mi nn x56761 2014-04-02 2014-04-02 3 Month nullFlavo Knippa 3aa1b 064-6 [facility] 14:30:00 14:30:00 Follow-Up r Specialties m6d-4b63 -a l 331-585f33 Mi nn e25a98 2014-04-02 2014-04-02 3 Month nullFlavo Knippa b988d 081-a [facility] 14:30:00 14:30:00 Follow-Up r Specialties 5h0-0c88 -8 l ac6-9b0fa8 Mi nn l5664f 2014-04-02 2014-04-02 3 Month nullFlavo Knippa 87b6f e4b-2 [facility] 14:30:00 14:30:00 Follow-Up r Specialties 66c-4ae4 -9 l 276-392833 Mi nn 3d4c90 2014-04-02 2014-04-02 3 Month nullFlavo Knippa b80e4 617-8 [facility] 14:30:00 14:30:00 Follow-Up r Specialties 8g5-7921 -a l x70-18o056 Mi nn 5e39eb 2014-04-02 2014-04-02 3 Month nullFlavo Knippa 6ec76 651-1 [facility] 14:30:00 14:30:00 Follow-Up r Specialties z48-3078 -a l s12-bvym9i Mi nn 4n804z 2014-04-02 2014-04-02 3 Month nullFlavo Knippa 4fb86 1b1-e [facility] 14:30:00 14:30:00 Follow-Up r Specialties 28e-4725 -b l 2ea-c8d6f3 Mi nn gp111a 2014-04-02 2014-04-02 3 Month nullFlavo Knippa 635c5 07e-c [facility] 14:30:00 14:30:00 Follow-Up r Specialties a42-5asr -9 l 338-728efe Mi nn v8k687 2014-04-02 2014-04-02 3 Month nullFlavo Knippa 03be9 acb-3 [facility] 14:30:00 14:30:00 Follow-Up r Specialties 567-4d67 -a l 635-33a3ed Mi nn dg932u 2014-04-02 2014-04-02 3 Month nullFlavo Knippa 88441 f67-6 [facility] 14:30:00 14:30:00 Follow-Up r Specialties 737-4658 -8 l 6j8-c6916i Mi nn d2dc54 2014-04-02 2014-04-02 3 Month nullFlavo Knippa 5c3ce add-f [facility] 14:30:00 14:30:00 Follow-Up r Specialties 8d9-8d52 -b l c5a-at819c Mi nn 4a9e55 2014-04-02 2014-04-02 3 Month nullFlavo Knippa 817d1 757-6 [facility] 14:30:00 14:30:00 Follow-Up r Specialties 426-409a -8 l 66b-59e7bc Mi nn 1yu633 2014-04-02 2014-04-02 3 Month nullFlavo Knippa f8c0f 605-5 [facility] 14:30:00 14:30:00 Follow-Up r Specialties 008-4cf0 -a l 2f0-wg2057 Mi nn f133a4 2014-04-02 2014-04-02 3 Month nullFlavo Knippa 8e658 4f5-0 [facility] 14:30:00 14:30:00 Follow-Up r Specialties aed-4827 -9 l 15c-d2d2e2 [facility] nn bc27d5 2014-04-02 2014-04-02 3 Month nullFlavo Knippa 527d3 ee3-7 [facility] 14:30:00 14:30:00 Follow-Up r Specialties ebd-4542 -b l fa8-0153fc Mi nn 3a09bb 2014-04-02 2014-04-02 3 Month nullFlavo Knippa 033f9 0e9-7 [facility] 14:30:00 14:30:00 Follow-Up r Specialties n16-8627 -8 l 997-697ffc [facility] nn 5b1f78 2014-04-02 2014-04-02 3 Month nullFlavo Knippa 775cc 846-c [facility] 14:30:00 14:30:00 Follow-Up r Specialties 3r0-7816 -8 l 0r8-53r4rf Mi nn c6fdbe 2014-04-02 2014-04-02 3 Month nullFlavo Knippa a379b cd1-3 [facility] 14:30:00 14:30:00 Follow-Up r Specialties cc2-4290 -9 l 716-82a9de [facility] nn 8303ac 2014-04-02 2014-04-02 3 Month nullFlavo Knippa 79600 ab6-9 [facility] 14:30:00 14:30:00 Follow-Up r Specialties p9o-93h3 -8 l 080-a16e2b Mi nn 5637cc 2014-04-02 2014-04-02 3 Month nullFlavo Knippa 47947 d67-3 [facility] 14:30:00 14:30:00 Follow-Up r Specialties 853-41fb -8 l abb-8ae8e1 Mi nn 80de0d 2014-04-02 2014-04-02 3 Month nullFlavo Knippa 5ecc7 feb-7 [facility] 13:30:00 13:30:00 Follow-Up r Specialties dff-4ae4 -8 l 208-6143df Mi nn 598df8 2014-04-02 2014-04-02 3 Month nullFlavo Knippa 48fc9 4f0-f [facility] 13:30:00 13:30:00 Follow-Up r Specialties bb1-42fd -a l g29-z8rg7h Mi nn t2218z 2014-04-02 2014-04-02 3 Month nullFlavo Knippa 20def 136-4 [facility] 13:30:00 13:30:00 Follow-Up r Specialties 1e3-1hym -9 l 7y0-85d04w Mi nn d5d37d 2014-04-02 2014-04-02 3 Month nullFlavo Knippa fc412 71a-e [facility] 13:30:00 13:30:00 Follow-Up r Specialties 194-4fb9 -b l 330-755005 Mi nn e926af 2014-04-02 2014-04-02 3 Month nullFlavo Knippa 82a16 652-c [facility] 13:30:00 13:30:00 Follow-Up r Specialties 581-4a67 -b l p13-3w3123 Mi nn 25fa8c 2014-04-02 2014-04-02 3 Month nullFlavo Knippa ca702 ed0-4 [facility] 13:30:00 13:30:00 Follow-Up r Specialties eb2-4d44 -a l 54b-9w9304 Mi nn zw4966 2014-04-02 2014-04-02 3 Month nullFlavo Knippa 6d28a 5ae-b [facility] 13:30:00 13:30:00 Follow-Up r Specialties 220-4e86 -8 l 5y3-02kz5s Mi nn 53785t 2014-04-02 2014-04-02 3 Month nullFlavo Knippa 2b6cb 18e-d [facility] 13:30:00 13:30:00 Follow-Up r Specialties 90f-4020 -b l 82f-56w188 Mi nn 597f31 2014-04-02 2014-04-02 3 Month nullFlavo Knippa 9881d 0b8-1 [facility] 13:30:00 13:30:00 Follow-Up r Specialties y04-0819 -8 l da4-afadbf Mi nn 42e58f 2014-04-02 2014-04-02 3 Month nullFlavo Knippa 66d42 828-5 [facility] 13:30:00 13:30:00 Follow-Up r Specialties fd0-4cdd -9 l 6ed-5b19fc Mi nn 39e10f 2014-04-02 2014-04-02 3 Month nullFlavo Knippa bbb1b fe1-9 [facility] 13:30:00 13:30:00 Follow-Up r Specialties b13-4n5f -b l 8q5-j4295v Mi nn 436715 7406-02-09 2014-04-02 3 Month nullFlavo Knippa dbd34 42d-e [facility] 13:30:00 13:30:00 Follow-Up r Specialties m5r-6487 -a l 1bb-f3ad98 Mi nn 232be7 2014-04-02 2014-04-02 3 Month nullFlavo Knippa 3cdd9 d0f-0 [facility] 13:30:00 13:30:00 Follow-Up r Specialties e53-95hs -a l 83d-8a5f3c Mi nn 8a23ca 2014-04-02 2014-04-02 3 Month nullFlavo Knippa 0159b 244-f [facility] 13:30:00 13:30:00 Follow-Up r Specialties 41d-421d -8 l i6b-4j2441 Mi nn 4al199 2014-04-02 2014-04-02 3 Month nullFlavo Knippa 9d22e d1e-0 [facility] 13:30:00 13:30:00 Follow-Up r Specialties 300-43a0 -b l 646-e8bf98 Mi nn 165183 7650-02-09 2014-04-02 3 Month nullFlavo Knippa da756 761-3 [facility] 13:30:00 13:30:00 Follow-Up r Specialties 83e-49fd -b l 090-00f13a Mi nn 223998 8551-02-09 2014-04-02 3 Month nullFlavo Knippa 9a7db 67e-d [facility] 13:30:00 13:30:00 Follow-Up r Specialties c01-0yp6 -9 l 82e-pk8430 Mi nn k7341w 2014-04-02 2014-04-02 3 Month nullFlavo Knippa 3915d 8d8-9 [facility] 13:30:00 13:30:00 Follow-Up r Specialties 0de-4055 -8 l bc9-fc3ef2 Mi nn 246a9c 2014-04-02 2014-04-02 3 Month nullFlavo Knippa 89f61 c72-c [facility] 13:30:00 13:30:00 Follow-Up r Specialties 4x1-8an1 -b l 0d2-2p29b9 Mi nn 9fa0a8 2014-04-02 2014-04-02 3 Month nullFlavo Knippa 8d9e3 1cf-3 [facility] 13:30:00 13:30:00 Follow-Up r Specialties p77-16b7 -a l ac6-b54b94 Mi nn 17a0ef 2014-04-02 2014-04-02 3 Month nullFlavo Knippa efba4 561-b [facility] 13:30:00 13:30:00 Follow-Up r Specialties b52-0y2e -9 l 868-e213d7 Mi nn 280009 0944-02-09 2014-04-02 3 Month nullFlavo Knippa c6d87 c50-5 [facility] 13:30:00 13:30:00 Follow-Up r Specialties bbd-42d7 -b l u68-r79z63 Mi nn f2edd5 2014-04-02 2014-04-02 3 Month nullFlavo Knippa cf526 ed1-4 [facility] 13:30:00 13:30:00 Follow-Up r Specialties 12a-4c4a -b l 477-efea88 Mi nn 2ddd27 2014-04-02 2014-04-02 3 Month nullFlavo Knippa 2891b 0e3-e [facility] 13:30:00 13:30:00 Follow-Up r Specialties x19-4244 -b l 361-840b8b Mi nn def59c 2014-04-02 2014-04-02 3 Month nullFlavo Knippa 046b3 8e2-4 [facility] 13:30:00 13:30:00 Follow-Up r Specialties u73-3173 -b l 791-b0ba0d Mi nn c51267 2014-04-02 2014-04-02 3 Month nullFlavo Knippa fb1a3 69c-3 [facility] 13:30:00 13:30:00 Follow-Up r Specialties 085-4a6d -b l 64c-e016a8 Mi nn f63b0a 2014-04-02 2014-04-02 3 Month nullFlavo Knippa 81175 3ee-e [facility] 13:30:00 13:30:00 Follow-Up r Specialties z3o-6rzo -b l 597-533af0 Mi nn 7m270l 2014-03-01 2014-03-01 rq rx nullFlavo Knippa dbaa1 138-1 [facility] 20:02:00 20:02:00 refill/ r Specialties k13-0bxn-8 l levemir 94e-b08a5e Mi nn 03r195 2014-03-01 2014-03-01 rq rx nullFlavo Knippa 8e559 5d9-e [facility] 20:02:00 20:02:00 refill/ r Specialties ea3-46fb-b l levemir 056-cf6e47 Mi aleja gas683 2014-03-01 2014-03-01 rq rx nullFlavo Knippa 770c3 5f4-0 [facility] 20:02:00 20:02:00 refill/ r Specialties 3l7-5816-s l levemir x11-772x99 Mi nn 97a887 2014-03-01 2014-03-01 rq rx nullFlavo Knippa 822a3 42f-9 [facility] 20:02:00 20:02:00 refill/ r Specialties 011-4a36-a l levemir ec7-42938x Mi nn l1518s 2014-03-01 2014-03-01 rq rx nullFlavo Knippa 32868 7bb-3 [facility] 20:02:00 20:02:00 refill/ r Specialties db3-4ea1-8 l levemir ae1-0d7d2e Mi nn 162e34 2014-03-01 2014-03-01 rq rx nullFlavo Knippa ca67e f30-f [facility] 20:02:00 20:02:00 refill/ r Specialties u4k-1321-4 l levemir 0x9-k34045 Mi nn 6r6760 2014-03-01 2014-03-01 rq rx nullFlavo Knippa fcf8a d42-3 [facility] 20:02:00 20:02:00 refill/ r Specialties 671-4a77-8 l levemir 7dd-y9728c Mi nn yt995w 2014-03-01 2014-03-01 rq rx nullFlavo Knippa 94539 4d7-0 [facility] 20:02:00 20:02:00 refill/ r Specialties 7s8-4ngg-3 l levemir y2q-98j783 Mi nn 17810t 2014-03-01 2014-03-01 rq rx nullFlavo Knippa f787a 371-4 [facility] 20:02:00 20:02:00 refill/ r Specialties g46-58i6-9 l levemir 721-7bc6be Mi nn 6a0bb0 2014-03-01 2014-03-01 rq rx nullFlavo Knippa 84de0 cb8-6 [facility] 20:02:00 20:02:00 refill/ r Specialties 467-4182-8 l levemir l0t-npi9wl Mi nn d579e6 2014-03-01 2014-03-01 rq rx nullFlavo Knippa 064e7 bfd-6 [facility] 20:02:00 20:02:00 refill/ r Specialties 984-4a58-b l levemir 5d4-7353e5 [facility] nn 37i907 2014-03-01 2014-03-01 rq rx nullFlavo Knippa f8631 1e7-a [facility] 20:02:00 20:02:00 refill/ r Specialties ddf-46e2-a l levemir v20-8hwe33 Mi nn 32f2bb 2014-03-01 2014-03-01 rq rx nullFlavo Knippa ad95a bc2-3 [facility] 20:02:00 20:02:00 refill/ r Specialties 75e-4b29-b l levemir 7o4-631895 [facility] nn e169f9 2014-03-01 2014-03-01 rq rx nullFlavo Knippa 60a6b 859-f [facility] 20:02:00 20:02:00 refill/ r Specialties 211-4c45-8 l levemir 7ae-5047b7 Mi nn ec23a6 2014-03-01 2014-03-01 rq rx nullFlavo Knippa ba36c 0c0-2 [facility] 20:02:00 20:02:00 refill/ r Specialties 261-4487-b l levemir 8ec-54b223 Mi nn d6aa63 2014-03-01 2014-03-01 rq rx nullFlavo Knippa 73b7d 8fd-5 [facility] 20:02:00 20:02:00 refill/ r Specialties 6e2-70mk-p l levemir 11e-9cbab0 Mi nn n0c921 2014-03-01 2014-03-01 rq rx nullFlavo Knippa a6a64 7c0-0 [facility] 20:02:00 20:02:00 refill/ r Specialties o88-04yf-g l levemir fcc-279bb7 Mi nn 4befdb 2014-03-01 2014-03-01 rq rx nullFlavo Knippa 8330f 029-a [facility] 20:02:00 20:02:00 refill/ r Specialties 980-4618-8 l levemir cf2-16b6d4 Mi nn 4665ae 2014-03-01 2014-03-01 rq rx nullFlavo Knippa 5ed9f a11-c [facility] 20:02:00 20:02:00 refill/ r Specialties fa7-44bf-b l levemir 884-3cc1a9 Mi nn y25734 2014-03-01 2014-03-01 rq rx nullFlavo Knippa 84d17 10d-6 [facility] 20:02:00 20:02:00 refill/ r Specialties k85-3o49-1 l levemir 869-2738c7 Mi nn db8a83 2014-03-01 2014-03-01 rq rx nullFlavo Knippa 4e907 1b1-b [facility] 20:02:00 20:02:00 refill/ r Specialties 0ba-4b85-a l levemir 3x8-3yvahs Mi nn e6f1de 2014-03-01 2014-03-01 rq rx nullFlavo Knippa 10d69 786-1 [facility] 20:02:00 20:02:00 refill/ r Specialties 972-41c8-8 l levemir w02-c8g684 Mi nn chd836 2014-03-01 2014-03-01 rq rx nullFlavo Knippa 1b858 b06-4 [facility] 20:02:00 20:02:00 refill/ r Specialties o9l-1le0-5 l levemir 296-e491df Mi nn 26ed97 2014-03-01 2014-03-01 rq rx nullFlavo Knippa 37610 0bd-a [facility] 20:02:00 20:02:00 refill/ r Specialties e83-36e3-0 l levemir 177-44ff28 Mi nn 8d26ae 2014-03-01 2014-03-01 rq rx nullFlavo Knippa 7858b c7f-a [facility] 20:02:00 20:02:00 refill/ r Specialties 57f-4c62-8 l levemir 1db-a784c6 Mi nn 97l140 2014-03-01 2014-03-01 rq rx nullFlavo Knippa 8c795 141-4 [facility] 19:02:00 19:02:00 refill/ r Specialties 8cb-4f7d-9 l levemir 7dc-c0e5a1 Mi nn 295ab1 2014-03-01 2014-03-01 rq rx nullFlavo Knippa 8a8a1 76f-c [facility] 19:02:00 19:02:00 refill/ r Specialties f50-4ju2-0 l levemir w3c-090t5a Mi nn a5fcd8 2014-03-01 2014-03-01 rq rx nullFlavo Knippa e166f 1d7-b [facility] 19:02:00 19:02:00 refill/ r Specialties z4d-6341-j l levemir 637-cgy423 Mi nn e54e40 2014-03-01 2014-03-01 rq rx nullFlavo Knippa 52830 5bc-6 [facility] 19:02:00 19:02:00 refill/ r Specialties n6k-6822-3 l levemir n1t-ja1ib0 Mi nn z4a980 2014-03-01 2014-03-01 rq rx nullFlavo Knippa 20c64 c1a-d [facility] 19:02:00 19:02:00 refill/ r Specialties q93-82ie-1 l levemir 01f-b593d6 Mi nn thw921 2014-03-01 2014-03-01 rq rx nullFlavo Knippa 9d35e 4cc-a [facility] 19:02:00 19:02:00 refill/ r Specialties 14a-4004-9 l levemir ca9-cfe90c Mi nn 92c3c5 2014-03-01 2014-03-01 rq rx nullFlavo Knippa 28466 dd3-2 [facility] 19:02:00 19:02:00 refill/ r Specialties 750-480c-a l levemir 00a-5c06b5 Mi nn 40fbd2 2014-03-01 2014-03-01 rq rx nullFlavo Knippa f9370 6f6-a [facility] 19:02:00 19:02:00 refill/ r Specialties 707-4849-b l levemir ce6-f3bde7 Mi nn ae64ce 2014-03-01 2014-03-01 rq rx nullFlavo Knippa dffd8 404-2 [facility] 19:02:00 19:02:00 refill/ r Specialties 8ee-42f3-b l levemir 716-52ef19 Mi nn 3d57e5 2014-03-01 2014-03-01 rq rx nullFlavo Knippa 3bea2 16a-0 [facility] 19:02:00 19:02:00 refill/ r Specialties 4o7-20t7-k l levemir c4g-575y7p Mi nn 700abf 2014-03-01 2014-03-01 rq rx nullFlavo Knippa 08fd2 3b7-3 [facility] 19:02:00 19:02:00 refill/ r Specialties u49-203s-g l levemir 433-583840 Mi nn le2201 2014-03-01 2014-03-01 rq rx nullFlavo Knippa 401b5 2f3-4 [facility] 19:02:00 19:02:00 refill/ r Specialties 25a-42f6-8 l levemir 802-c41c7b Mi nn 67u922 2014-03-01 2014-03-01 rq rx nullFlavo Knippa 91411 7a5-6 [facility] 19:02:00 19:02:00 refill/ r Specialties 6ab-43ed-8 l levemir 481-9v954g Mi nn 7544c0 2014-03-01 2014-03-01 rq rx nullFlavo Knippa 50f28 c3b-4 [facility] 19:02:00 19:02:00 refill/ r Specialties 41f-4784-a l levemir 5ed-49h847 Mi nn 2412e5 2014-03-01 2014-03-01 rq rx nullFlavo Knippa 945e2 c64-0 [facility] 19:02:00 19:02:00 refill/ r Specialties 36c-4b1a-b l levemir 7c5-hy68v7 Mi nn b16ee7 2014-03-01 2014-03-01 rq rx nullFlavo Knippa c511f 62e-6 [facility] 19:02:00 19:02:00 refill/ r Specialties a9v-4e43-v l levemir v53-wa8e4m Mi nn 6y461s 2014-03-01 2014-03-01 rq rx nullFlavo Knippa 5dd7f 888-b [facility] 19:02:00 19:02:00 refill/ r Specialties 1ec-4b94-8 l levemir 292-01db0d Mi nn f50c6d 2014-03-01 2014-03-01 rq rx nullFlavo Knippa 17361 544-9 [facility] 19:02:00 19:02:00 refill/ r Specialties 328-4b2e-8 l levemir f9f-w47d3d Mi nn 99b2fd 2014-03-01 2014-03-01 rq rx nullFlavo Knippa 1c989 5cc-0 [facility] 19:02:00 19:02:00 refill/ r Specialties 3e7-1ib4-t l levemir 4ea-ad98e3 Mi nn 8u0095 2014-03-01 2014-03-01 rq rx nullFlavo Knippa 28b5e 79c-b [facility] 19:02:00 19:02:00 refill/ r Specialties 4y4-61c9-i l levemir 9d8-c70300 Mi nn qh804s 2014-03-01 2014-03-01 rq rx nullFlavo Knippa d51e1 a9e-5 [facility] 19:02:00 19:02:00 refill/ r Specialties n05-3a4h-k l levemir be1-355220 Mi nn 06c4a3 2014-03-01 2014-03-01 rq rx nullFlavo Knippa b0d65 f84-b [facility] 19:02:00 19:02:00 refill/ r Specialties a1s-78b8-3 l levemir 99f-3276c1 Mi nn ddcb7a 2014-03-01 2014-03-01 rq rx nullFlavo Knippa 53d9f 71c-8 [facility] 19:02:00 19:02:00 refill/ r Specialties 0d8-1382-n l levemir 0eb-402671 Mi nn 85b1ee 2014-03-01 2014-03-01 rq rx nullFlavo Knippa 27617 b94-d [facility] 19:02:00 19:02:00 refill/ r Specialties 146-49dc-a l levemir 667-3o7038 Mi nn 3db54d 2014-03-01 2014-03-01 rq rx nullFlavo Knippa 68f63 0ba-f [facility] 19:02:00 19:02:00 refill/ r Specialties 9fd-46a9-9 l levemir j2r-6udxrs Mi nn 2db00c 2014-03-01 2014-03-01 rq rx nullFlavo Knippa c5f63 a10-9 [facility] 19:02:00 19:02:00 refill/ r Specialties c58-49z6-b l levemir 2y3-or517s Mi nn f784af 2014-03-01 2014-03-01 rq rx nullFlavo Knippa 360d7 5eb-0 [facility] 19:02:00 19:02:00 refill/ r Specialties 98c-4fba-8 l levemir m3m-60h10b Mi dd81ec Results Test Description Test Time Test Comments Results Result [facility] e Comments BREAST ULTRASOUND 2021-07-09 BILATERAL 14:00:52 Name: Esmer : 1940 Sex: F - DIAG MAMM BILATERAL BARBARA CAD DIGITALBILATERAL DIGITAL DIAGNOSTIC MAMMOGRAM 3D/2D WITH CAD: 07/09/2021LINICAL: Left breast pain. Digital breast tomosynthesis was performed in addition to routine CC and MLO views. Current mammographic images were evaluated by [employer] CAD (computer-aided detection) software. Comparison is made to exams dated 05/02/2020 mammogram, 01/27/2019 mammogram, and 12/12/2015 mammogram - [facility]-. There are scattered fibroglandular tissues in both breasts. Stable subcentimeter mass in the left upper outer quadrant and bilateral calcifications, benign. No suspicious mass, architectural distortion, malignant type calcification, or lymph node abnormality detected. INCOMPLETE: ADDITIONAL IMAGING EVALUATION NEEDEDThere is no mammographic evidence of malignancy. Bilateral survey ultrasound to follow.- BREAST ULTRASOUND BILATERALULTRASOUND OF BOTH BREASTS: 2Comparison is made to exams dated 05/02/2020 mammogram, 01/27/2019 mammogram, and 12/12/2015 mammogram - [facility]-. Color flow and real-time ultrasound of both breasts were performed. Koo scale images of the real-time examination were reviewed. The breast tissue has scattered fibroglandular background echotexture. Bilateral survey ultrasound demonstrates no suspicious sonographic abnormality. No axillary lymphadenopathy was seen.IMPRESSION: NEGATIVE There is no sonographic evidence of malignancy. Resume annual screening mammography in one year. Valente Santana M.D. ss/:07/09/2021 14:00:52 Entry: - 07/09/2021 14:41:28Imaging Technologist: Carolina MOFFETT, [facility]-FWletter sent: BIRADS 1-2 Combo FU Letter Mammogram BI-RADS: 0 Incomplete: Additional Imaging Evaluation Needed Ultrasound BI-RADS: 1 Negative DIAG MAMM 2021-07-09 BILATERAL BARBARA 14:00:52 CAD DIGITAL Name: Esmer : 1940 Sex: F - DIAG MAMM BILATERAL BARBARA CAD DIGITALBILATERAL DIGITAL DIAGNOSTIC MAMMOGRAM 3D/2D WITH CAD: 07/09/2021LINICAL: Left breast pain. Digital breast tomosynthesis was performed in addition to routine CC and MLO views. Current mammographic images were evaluated by [employer] CAD (computer-aided detection) software. Comparison is made to exams dated 05/02/2020 mammogram, 01/27/2019 mammogram, and 12/12/2015 mammogram - [facility]-. There are scattered fibroglandular tissues in both breasts. Stable subcentimeter mass in the left upper outer quadrant and bilateral calcifications, benign. No suspicious mass, architectural distortion, malignant type calcification, or lymph node abnormality detected. INCOMPLETE: ADDITIONAL IMAGING EVALUATION NEEDEDThere is no mammographic evidence of malignancy. Bilateral survey ultrasound to follow.- BREAST ULTRASOUND BILATERALULTRASOUND OF BOTH BREASTS: 2Comparison is made to exams dated 05/02/2020 mammogram, 01/27/2019 mammogram, and 12/12/2015 mammogram - [facility]-. Color flow and real-time ultrasound of both breasts were performed. Koo scale images of the real-time examination were reviewed. The breast tissue has scattered fibroglandular background echotexture. Bilateral survey ultrasound demonstrates no suspicious sonographic abnormality. No axillary lymphadenopathy was seen.IMPRESSION: NEGATIVE There is no sonographic evidence of malignancy. Resume annual screening mammography in one year. Valente Santana M.D. ss/:07/09/2021 14:00:52 Entry: - 07/09/2021 14:41:28Imaging Technologist: Carolina MOFFETT, [facility]-FWletter sent: BIRADS 1-2 Combo FU Letter Mammogram BI-RADS: 0 Incomplete: Additional Imaging Evaluation Needed Ultrasound BI-RADS: 1 Negative BASIC METABOLIC PANEL 2020-08-29 10:52:00 Test Item Value Reference Range Interpretation Comme nts SODIUM (test code = NA) 136 mEq/L 134-147 N POTASSIUM (test code = K) 5.0 mEq/L 3.4-5.0 N CHLORIDE (test code = CL) 105 mEq/L 100-108 N CARBON DIOXIDE (test code = CO2) 22 mEq/l 21-33 N ANION GAP (test code = GAP) 14 0-20 N GLUCOSE (test code = GLU) 367 mg/dL 70-110 H BLOOD UREA NITROGEN (test code = 26 mg/dL 7-18 H BUN) GLOMERULAR FILTRATION RATE (test 33.5 70-80 L Units of measure = ml/min/1.73 code = GFR) m2 CREATININE (test code = CREAT) 1.5 mg/dL 0.6-1.3 H CALCIUM (test code = CA) 8.6 mg/dL 8.0-10.5 N [id number] 10:49:00 Test Item Value Reference Range Interpretation Comments GLUBED (test code = 381 MG/DL 70-110 H Performe d by certified GLUBED) 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 CBC W/AUTO [id number] 07:43:00 Test Item Value Reference Range Interpretation Comments WHITE BLOOD CELL (test code = 10.7 x10 3/uL 4.5-11.0 N WBC) RED BLOOD CELL (test code = 4.08 x10 6/uL 3.54-5.02 N RBC) HEMOGLOBIN (test code = HGB) 12.4 g/dL 11.0-15.0 N HEMATOCRIT (test code = HCT) 38.7 % 33.0-45.0 N MEAN CELL VOLUME (test code = 94.9 fL 81.0-99.0 N MCV) MEAN CELL HGB (test code = MCH) 30.4 pg 27.0-33.0 N MEAN CELL HGB CONCETRATION 32.0 g/dL 33.0-37.0 L (test code = MCHC) RED CELL DISTRIBUTION WIDTH CV 14.6 % 11.5-14.5 H (test code = RDW) RED CELL DISTRIBUTION WIDTH SD 51.3 fL 37.0-54.0 N (test code = RDW-SD) PLATELET COUNT (test code = 185 x10 3/uL 150-400 N PLT) MEAN PLATELET VOLUME (test code 11.9 fL 7.0-9.0 H = MPV) NEUTROPHIL % (test code = NT%) 89.0 % 56.0-77.0 H IMMATURE GRANULOCYTE % (test 0.7 % 0.0-2.0 N code = IG%) LYMPHOCYTE % (test code = LY%) 8.0 % 14.0-32.0 L MONOCYTE % (test code = MO%) 2.1 % 4.8-9.0 L EOSINOPHIL % (test code = EO%) 0.0 % 0.3-3.7 L BASOPHIL % (test code = BA%) 0.2 % 0.0-2.0 N NUCLEATED RBC % (test code = 0.0 % 0-0 N NRBC%) NEUTROPHIL # (test code = NT#) 9.49 x10 3/uL 2.0-7.6 H IMMATURE GRANULOCYTE # (test 0.07 x10 3/uL 0.00-0.03 H code = IG#) LYMPHOCYTE # (test code = LY#) 0.85 x10 3/uL 1.0-3.8 L MONOCYTE # (test code = MO#) 0.22 x10 3/uL 0.1-0.8 N EOSINOPHIL # (test code = EO#) 0.00 x10 3/uL 0.0-0.2 N BASOPHIL # (test code = BA#) 0.02 x10 3/uL 0.0-0.2 N NUCLEATED RBC # (test code = 0.00 x10 3/uL 0.0-0.1 N NRBC#) MANUAL DIFF REQUIRED (test code NO = MDIFF) CBC W/AUTO [id number] 07:14:00 Test Item Value Reference Range Interpretation Comments WHITE BLOOD CELL (test code = x10 3/uL 4.5-11.0 WBC) RED BLOOD CELL (test code = RBC) x10 6/uL 3.54-5.02 HEMOGLOBIN (test code = HGB) 12.4 g/dL 11.0-15.0 N HEMATOCRIT (test code = HCT) 38.7 % 33.0-45.0 N MEAN CELL VOLUME (test code = fL 81.0-99.0 MCV) MEAN CELL HGB (test code = MCH) pg 27.0-33.0 MEAN CELL HGB CONCETRATION (test g/dL 33.0-37.0 code = MCHC) RED CELL DISTRIBUTION WIDTH CV % 11.5-14.5 (test code = RDW) PLATELET COUNT (test code = PLT) 185 x10 3/uL 150-400 N NEUTROPHIL % (test code = NT%) % 56.0-77.0 LYMPHOCYTE % (test code = LY%) % 14.0-32.0 NEUTROPHIL # (test code = NT#) x10 3/uL 2.0-7.6 LYMPHOCYTE # (test code = LY#) x10 3/uL 1.0-3.8 MANUAL DIFF REQUIRED (test code = MDIFF) - XR KNEE 1 OR 2 V [id number] 14:19:00 [facility] : 1940 Sex: F FAX: [phone] [place]: St: ADM FAX:Geo Swann APR [phone] Name: ESMER MARRERO [facility] : 1940 Age/S: 80/F [address] [place] [address] Unit #: [id number] Loc: [place] [address] Phys: Geo Swann APRNNP Acct: [id number] Dis Date: Status: ADM IN PHONE #: [phone] Exam Date: 08/28/2020 0851 FAX #: [phone] Reason: swelling, pain Report Has Been Amended EXAMS: CPT CODE: [id number] XR KNEE 1 OR 2 V LT 23778 Addendum - 08/28/2020 SIGNED 08/28/2020 ADDENDUM: [id number] RAD/KNEELT Additional lateral radiograph of the left knee is now available. Clothing artifact is positioned more cranial of the distal thigh. The suprapatellar recess is not well-defined possibly related to obliquity. Presence or absence of joint effusion cannot be stated with certainty. Degenerative changes and chondrocalcinosis redemonstrated. IMPRESSION: Limited exam. Joint effusion is not excluded. at 1419 Reported and signed by: Mitul Shafer M.D. Report PROCEDURE: Left knee 2 views INDICATION: swelling, pain; left leg pain and swelling COMPARISON: 03/02/2017 FINDINGS: AP and lateral views of the left kneewere obtained. Clothing artifact partially obscures the suprapatellar region in the lateral projection. Sensitivity for joint effusion is limited. The soft tissues are otherwise unremarkable. There is no fracture or dislocation. Osteophyte formation medial and patellofemoral compartments. Joint space narrowing evident in the medial compartment. Chondrocalcinosis ofthe menisci. Vascular calcifications noted. COMMENTS: If there is further concern, follow-up radiographs, CT or MRI may be obtained for complete assessment. IMPRESSION: 1. Limited exam. Sensitivity for joint effusion may be diminished. Repeat lateral projection is planned with an addendum report to follow. 2. Osteoarthritis and chondrocalcinosis. PAGE 1 Signed Report (CONTINUED) FAX: Carol Hamm [phone] [place]: St: ADM FAX: Geo Swann APR [phone] Name: ESMER MARRERO [facility] : 1940 Age/S:80/F [address] [place] [address] Unit #: [id number] Loc: [place], [place] Phys: Geo Swann Acct: [id number] Dis Date: Status: ADM IN PHONE #: [phone] Exam Date: 08/28/2020 0851 FAX #: [phone] Reason: swelling, pain Report Has Been Amended EXAMS: CPT CODE: [id number] XR KNEE 1 OR 2 V LT [address]15 <Continued> SL: [id number] at 0904 Reported and signed by: Mitul Shafer M.D. CC: Carol Mota DO; Geo Swann Technologist: RT Lina(Wil) Trnscrd Date/Time/By: 08/28/2020 (0904) : By: Delfina Orig Print D/T: S: 08/28/2020 (0907) PAGE 2 Signed ReportURIC [id number] 10:32:00 Test Item Value Reference Range Interpretation Comments URIC ACID (test code = URIC) 7.9 mg/dL 2.6-7.2 H - DUP VEIN UNI/[id number] 09:57:00 [facility] 1940 Sex: F Name: ESMER MARRERO [facility] : Age/S: 80 / F [address] [place] [address] Unit #: [id number] Loc: [place] [address] Phys: Geo Swann APRNNP Acct: [id number] Dis Date: Status: REG ER PHONE #: [phone] Exam Date: 08/28/2020950 FAX #: [phone] Reason: lle swelling, pain EXAMS: CPT CODE: [id number] [facility] VEIN UNI/LTD 27342 PROCEDURE: UNILATERAL LOWER EXTREMITY VENOUS ULTRASOUND INDICATION: Left lower extremity swelling and pain. COMPARISON: None. TECHNIQUE: Sonographic evaluation of the left lower extremity veins was performed using high resolution B-mode, pulse and co roland Doppler imaging. FINDINGS: The common femoral, femoral, popliteal andvisualized calf veins are patent. Normal venous waveforms. The saphenofemoral junction is unremarkable. There is mild subcutaneous edema involving the left calf. IMPRESSION: No deep venous thrombosis. SL: [id number] at 0957 Reported and signed by: Sang Wade M.D. CC: Carol Mota DO; Geo QUINN [facility] Technologist: CHARLES Sagastume)() Trnscb Date/Time: 08/28/2020 (0957) [id number] Orig Print D/T: S: 08/28/2020 (1000) Probe: PAGE 1 Signed ReportCBC W/AUTO [id number] 09:17:00 Test Item Value Reference Range Interpretation Comments WHITE BLOOD CELL (test code = 11.9 x10 3/uL 4.5-11.0 H WBC) RED BLOOD CELL (test code = 4.20 x10 6/uL 3.54-5.02 N RBC) HEMOGLOBIN (test code = HGB) 12.7 g/dL 11.0-15.0 N HEMATOCRIT (test code = HCT) 38.8 % 33.0-45.0 N MEAN CELL VOLUME (test code = 92.4 fL 81.0-99.0 N MCV) MEAN CELL HGB (test code = MCH) 30.2 pg 27.0-33.0 N MEAN CELL HGB CONCETRATION 32.7 g/dL 33.0-37.0 L (test code = MCHC) RED CELL DISTRIBUTION WIDTH CV 14.7 % 11.5-14.5 H (test code = RDW) RED CELL DISTRIBUTION WIDTH SD 50.2 fL 37.0-54.0 N (test code = RDW-SD) PLATELET COUNT (test code = 195 x10 3/uL 150-400 N PLT) MEAN PLATELET VOLUME (test code 11.5 fL 7.0-9.0 H = MPV) NEUTROPHIL % (test code = NT%) 69.2 % 56.0-77.0 N IMMATURE GRANULOCYTE % (test 0.5 % 0.0-2.0 N code = IG%) LYMPHOCYTE % (test code = LY%) 17.9 % 14.0-32.0 N MONOCYTE % (test code = MO%) 10.8 % 4.8-9.0 H EOSINOPHIL % (test code = EO%) 0.9 % 0.3-3.7 N BASOPHIL % (test code = BA%) 0.7 % 0.0-2.0 N NUCLEATED RBC % (test code = 0.0 % 0-0 N NRBC%) NEUTROPHIL # (test code = NT#) 8.24 x10 3/uL 2.0-7.6 H IMMATURE GRANULOCYTE # (test 0.06 x10 3/uL 0.00-0.03 H code = IG#) LYMPHOCYTE # (test code = LY#) 2.13 x10 3/uL 1.0-3.8 N MONOCYTE # (test code = MO#) 1.28 x10 3/uL 0.1-0.8 H EOSINOPHIL # (test code = EO#) 0.11 x10 3/uL 0.0-0.2 N BASOPHIL # (test code = BA#) 0.08 x10 3/uL 0.0-0.2 N NUCLEATED RBC # (test code = 0.00 x10 3/uL 0.0-0.1 N NRBC#) MANUAL DIFF REQUIRED (test code NO = MDIFF) SED RATE [id number] 09:17:00 Test Item Value Reference Range Interpretation Comments SED RATE FROILAN (test code = 78 mm/hr 0-20 H SEDW) - XR KNEE 1 OR 2 V [id number] 09:04:00 [facility] : 1940 Sex: F FAX: Carol Hamm [phone] [place]: [address]: REG FAX:Geo Swann APR [phone] Name: ESMER MARRERO [facility] : 1940 Age/S: 80/F [address] [place] [address] Unit #: [id number] Loc: [place] [address] Phys: Geo Swann APRNNP Acct: [id number] Dis Date: Status: REG ER PHONE #: [phone] Exam Date: 08/28/2020 0851 FAX #: [phone] Reason: swelling, pain EXAMS: CPT CODE: [id number] XR KNEE 1 OR 2 V LT [id number] PROCEDURE: Left knee 2 views INDICATION: swelling, pain; left leg pain and swelling COMPARISON: 03/02/2017 FINDINGS: AP and lateral views of the left knee were obtained. Clothing artifact partially obscures the suprapatellar region in the lateralprojection. Sensitivity for joint effusion is limited. The soft tissues are otherwise unremarka ble. There is no fracture or dislocation. Osteophyte formation medial and patellofemoralcompartments. Joint space narrowing evident in the medial compartment. Chondrocalcinosis of the menisci. Vascular calcifications noted. COMMENTS: If there is further concern, follow-up radiographs, CT or MRI may be obtained for complete assessment. IMPRESSION: 1. Limited exam. Sensitivity for joint effusion may be diminished. Repeat lateral projection is planned with an addendum report to follow. 2. Osteoarthritis and chondrocalcinosis. SL: [id number] at 0904 Reported and signed by: Mitul Shafer M.D. CC: Carol Mota DO; Geo SALEHPYowell Technologist: RT Lina(Wil) Trnscrd Date/Time/By: 08/28/2020 (0904) : By: Delfina Orig Print D/T: S: 08/28/2020 (0907) PAGE 1 Signed ReportCOMPREHENSIVE METABOLIC [id number] 08:55:00 Test Item Value Reference Range Interpretation Comments SODIUM (test code = 138 mEq/L 134-147 N NA) POTASSIUM (test code = 4.8 mEq/L 3.4-5.0 N SPECI MEN 2+ K) HEMOLYZED.Resul ts known to be adv ersely affected by hem olysis are: Potass ium Magnesium LDH Phosphorus Previously repo rted result: 4.8 mEq/LEdited by: EL on 08/28/20:990393 /09/11 0855: K previo usly reported as: 4. 8 mEq/L CHLORIDE (test code = 107 mEq/L 100-108 N CL) CARBON DIOXIDE (test 26 mEq/l 21-33 N code = CO2) ANION GAP (test code = 10 0-20 N GAP) GLUCOSE (test code = 155 mg/dL 70-110 H GLU) BLOOD UREA NITROGEN 12 mg/dL 7-18 N (test code = BUN) GLOMERULAR FILTRATION 47.9 70-80 L Units of measure = RATE (test code = GFR) ml/mi n/1.73 m2 CREATININE (test code 1.1 mg/dL 0.6-1.3 N = CREAT) TOTAL PROTEIN (test 7.2 g/dL 6.4-8.2 N code = PROT) ALBUMIN (test code = 3.50 g/dL 3.4-5.0 N ALB) CALCIUM (test code = 8.9 mg/dL 8.0-10.5 N CA) BILIRUBIN TOTAL (test 0.60 mg/dL 0.0-1.0 N code = BILT) SGOT/AST (test code = 30 IUnit/L 15-37 N AST) SGPT/ALT (test code = 11 IUnit/L 30-65 L ALT) ALKALINE PHOSPHATASE 61 IUnit/L 20-125 N TOTAL (test code = ALKP) COMPREHENSIVE METABOLIC [id number] 08:55:00 Test Item Value Reference Range Interpretation Comments SODIUM (test code = NA) 138 mEq/L 134-147 N POTASSIUM (test code = 4.8 mEq/L 3.4-5.0 N K) CHLORIDE (test code = 107 mEq/L 100-108 N CL) CARBON DIOXIDE (test 26 mEq/l 21-33 N code = CO2) ANION GAP (test code = 10 0-20 N GAP) GLUCOSE (test code = 155 mg/dL 70-110 H GLU) BLOOD UREA NITROGEN 12 mg/dL 7-18 N (test code = BUN) GLOMERULAR FILTRATION 47.9 70-80 L Units of measure = RATE (test code = GFR) ml/mi n/1.73 m2 CREATININE (test code = 1.1 mg/dL 0.6-1.3 N CREAT) TOTAL PROTEIN (test 7.2 g/dL 6.4-8.2 N code = PROT) ALBUMIN (test code = 3.50 g/dL 3.4-5.0 N ALB) CALCIUM (test code = 8.9 mg/dL 8.0-10.5 N CA) BILIRUBIN TOTAL (test 0.60 mg/dL 0.0-1.0 N code = BILT) SGOT/AST (test code = 30 IUnit/L 15-37 N AST) SGPT/ALT (test code = 11 IUnit/L 30-65 L ALT) ALKALINE PHOSPHATASE 61 IUnit/L 20-125 N TOTAL (test code = ALKP) COMPREHENSIVE METABOLIC [id number] 08:53:00 Test Item Value Reference Range Interpretation Comments SODIUM (test code = NA) 138 mEq/L 134-147 N POTASSIUM (test code = 4.8 mEq/L 3.4-5.0 N K) CHLORIDE (test code = 107 mEq/L 100-108 N CL) CARBON DIOXIDE (test 26 mEq/l 21-33 N code = CO2) ANION GAP (test code = 10 0-20 N GAP) GLUCOSE (test code = 155 mg/dL 70-110 H GLU) BLOOD UREA NITROGEN 12 mg/dL 7-18 N (test code = BUN) GLOMERULAR FILTRATION 47.9 70-80 L Units of measure = RATE (test code = GFR) ml/mi n/1.73 m2 CREATININE (test code = 1.1 mg/dL 0.6-1.3 N CREAT) TOTAL PROTEIN (test code g/dL 6.4-8.2 = PROT) ALBUMIN (test code = g/dL 3.4-5.0 ALB) CALCIUM (test code = CA) 8.9 mg/dL 8.0-10.5 N BILIRUBIN TOTAL (test mg/dL 0.0-1.0 code = BILT) SGOT/AST (test code = IUnit/L 15-37 AST) SGPT/ALT (test code = IUnit/L 30-65 ALT) ALKALINE PHOSPHATASE IUnit/L 20-125 TOTAL (test code = ALKP) CBC W/AUTO [id number] 08:39:00 Test Item Value Reference Range Interpretation Comments WHITE BLOOD CELL (test code = 11.9 x10 3/uL 4.5-11.0 H WBC) RED BLOOD CELL (test code = 4.20 x10 6/uL 3.54-5.02 N RBC) HEMOGLOBIN (test code = HGB) 12.7 g/dL 11.0-15.0 N HEMATOCRIT (test code = HCT) 38.8 % 33.0-45.0 N MEAN CELL VOLUME (test code = 92.4 fL 81.0-99.0 N MCV) MEAN CELL HGB (test code = MCH) 30.2 pg 27.0-33.0 N MEAN CELL HGB CONCETRATION 32.7 g/dL 33.0-37.0 L (test code = MCHC) RED CELL DISTRIBUTION WIDTH CV 14.7 % 11.5-14.5 H (test code = RDW) RED CELL DISTRIBUTION WIDTH SD 50.2 fL 37.0-54.0 N (test code = RDW-SD) PLATELET COUNT (test code = 195 x10 3/uL 150-400 N PLT) MEAN PLATELET VOLUME (test code 11.5 fL 7.0-9.0 H = MPV) NEUTROPHIL % (test code = NT%) 69.2 % 56.0-77.0 N IMMATURE GRANULOCYTE % (test 0.5 % 0.0-2.0 N code = IG%) LYMPHOCYTE % (test code = LY%) 17.9 % 14.0-32.0 N MONOCYTE % (test code = MO%) 10.8 % 4.8-9.0 H EOSINOPHIL % (test code = EO%) 0.9 % 0.3-3.7 N BASOPHIL % (test code = BA%) 0.7 % 0.0-2.0 N NUCLEATED RBC % (test code = 0.0 % 0-0 N NRBC%) NEUTROPHIL # (test code = NT#) 8.24 x10 3/uL 2.0-7.6 H IMMATURE GRANULOCYTE # (test 0.06 x10 3/uL 0.00-0.03 H code = IG#) LYMPHOCYTE # (test code = LY#) 2.13 x10 3/uL 1.0-3.8 N MONOCYTE # (test code = MO#) 1.28 x10 3/uL 0.1-0.8 H EOSINOPHIL # (test code = EO#) 0.11 x10 3/uL 0.0-0.2 N BASOPHIL # (test code = BA#) 0.08 x10 3/uL 0.0-0.2 N NUCLEATED RBC # (test code = 0.00 x10 3/uL 0.0-0.1 N NRBC#) MANUAL DIFF REQUIRED (test code NO = MDIFF) SED RATE [id number] 08:39:00 Test Item Value Reference Range Interpretation Comments SED RATE FROILAN (test code = SEDW) mm/hr 0-20 SCR MAMM BILATERAL BARBARA CAD [id number] 11:51:26 Name: Esmer : 1940 Sex: F - SCR MAMM BILATERAL BARBARA CADDIGITALBILATERAL DIGITAL SCREENING MAMMOGRAM 3D/2D WITH CAD: 05/02/2020LINICAL: Patient state she has injuries to both shoulders.[id number] Covid vaccine 2 weeks ago Left armPatient with walker, can't stand for long periods, difficult to position. Digital breast tomosynthesis was performed in addition to routine CC and MLO views. Current mammographic images were evaluated by either a [facility] M-Vu or a [employer] CAD (computer aided detection system). Comparison is made to exams dated 01/27/2019 mammogram, 12/12/2015 mammogram, and [facility] There are scattered fibroglandular tissues in both breasts. There are benign calcifications in both breasts. There also is a benign intramammary node in the left breast. No suspicious mass, architectural distortion, malignant type calcification, or lymph node abnormality detected. Breast architecture is stable compared to prior exams.IMPRESSION: BENIGNThere is no mammographic evidence of malignancy. Resume annual screening mammography in one year. Bren Xiong M.D. wvg/penrad:05/06/2020 11:51:26 Candle Molder: Nathalie Cam , [facility] sent: BIRADS 1-2 Normal Mammogram BI-RADS: 2 BenignSCR MAMM BILATERAL BARBARA CAD [id number] 08:53:40 - SCR MAMM BILATERAL BARBARA CAD DIGITALBILATERAL DIGITAL SCREENING MAMMOGRAM 3D/2D WITH CAD: 01/27/2019CLINICAL: Asymptomatic. Digital breast tomosynthesis was performed in addition to routine CC and MLO views. Current mammographic images were evaluated by either a [facility] M-Vu or a [employer] CAD (computer aided detection system). Comparison is made to exams dated 12/12/2015 mammogram, 09/03/2014 mammogram, and 08/30/2013 mammogram - [facility] The tissue of both breasts is predominantly fatty. There are benign calcifications in both breasts. No suspicious mass, architec tural distortion, malignant type calcification, or lymph node abnormality detected. Breast architecture is stable compared to prior exams.IMPRESSION: BENIGNThere is no mammographic evidence of malignancy. Resume annual screening mammography in one year. Valente Santana M.D. /penrad:01/30/2019 08:53:40 Candle Molder: Courtney Hutchinson , [facility] sent: BIRADS 1-2 Normal Mammogram BI-RADS: 2 BenignUS RENAL RETROPERITONEAL [id number] 10:23:00 [place] [address] Patient Name: ESMER MARRERO MR #: [id number] : 1940 Age/Sex: 78/F Req #: [id number] Adm Physician: Ordered by: JOSH CEJA MD Report #: [id number] Location: Room/Bed: Procedure: [id number] US/US RENAL RETROPERITONEAL COMP Exam Date: 11/30/18 Exam Time: 943 REPORT STATUS: Signed EXAM: Renal Ultrasound INDICATION:[id number] URINARY TRACT INFECTION / CALCULUS OF KIDNEY COMPARISON: None TECHNIQUE: Transverse and longitudinal images of the kidneys and bladder were obtained. FINDINGS: Right Kidney: Length: 11.7 cm Appearance: Normal echogenicity. Collecting system: No hydronephrosis Stones: None Cyst/Mass: Lower pole 3.0 x 2.5 x 2.6 cm exophytic anechoic simple cystwithout associated vascularity. Left Kidney: Length: 9.6 cm Appearance: Normal echogenicity. Collecting system: No hydronephrosis Stones: None Cyst/Mass: Parapelvic 1.6 x 1.8 x 1.5 cm anechoic simple cyst. Bladder: No mass or calculi. Bilateral ureteral jets seen. IMPRESSION: No hydronephrosis or renal calculi. Bilateral simple cysts as above. Signed by: David Velez MD on 11/30/2018 10:24 AM Dictated By: DAVID VELEZ MD 1024 Transcribed By: MARYAM on 11/30/18 1024 COPY TO: JOSH CEJA MDABDOMEN-1VIEW (KUB)2018-11-30 10:18:00 [place] [address] Patient Name: ESMER MARRERO MR #: [id number] : 1940 Age/Sex: 78/F Req #: [id number] Adm Physician: Ordered by: JOSH CEJA MD Report #: [id number] Location: Room/Bed: Procedure: [id number] DX/ABDOMEN-1VIEW (KUB) Exam Date: 11/30/18 Exam Time: 929 REPORT STATUS: Signed Exam: KUB - 2 views Indication: Renal calculi Comparison: CT abdomen and pelvis of 04/18/2018 Findings: No radiographically apparent renal calculi. Nonobstructive bowel gas pattern. Degenerative changes of the lumbar spine and both hip joint s. Phleboliths in the left pelvis. Impression: No radiographically apparent renal calculi. Signed by: David Velez MD on 11/30/2018 10:23 AM Dictated By: DAVID VELEZ MD 1023 Transcribed By: MARYAM on 11/30/18 1023 COPY TO: JOSH CEJA MDCT ABDOMEN/PELVIS [id number] 10:02:00 [place] [address] Patient Name: ESMER MARRERO MR #: [id number] : 1940 Age/Sex: 78/F Req #: [id number] Adm Physician: Ordered by: JOSH CEJA MD Report #: [id number] Location: [place] Room/Bed: Procedure: [id number] CT/CT ABDOMEN/PELVIS WO Exam Date: 04/18/18 Exam Time: 914 REPORT STATUS: Signed EXAMINATION: CT of the abdomen and pelvis without contrast. TECHNIQUE: Spiral CT images of the abdomen and pelvis were performed from the lung bases to the lesser trochanters. No intravenous contrast was given per renal stone protocol. Coronal and sagittal reformatted images were obtained. Low-dose technique was utilized. DLP: 723.32 mGy-cm COMPARISON: 01/08/2017 CLINICAL HISTORY: Flank pain DISCUSSION: ABSENCE OF INTRAVENOUS CONTRAST DECREASES SENSITIVITY FOR DETECTION OF FOCAL LESIONS AND VASCULAR PATHOLOGY. ABDOMEN/PELVIS: LOWER THORAX: Lingular and right middle lobe scarring. Calcification within the coronary arteries, mitral valve and aortic valve. 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 HEPATOBILIARY:No focal hepatic lesions. No biliary ductal dilation. The gallbladder is normal. SPLEEN: No splenomegaly with vascular calcification and single calcification near the hilum. PANCREAS: No focal masses or ductal dilatation. ADRENALS: No adrenal nodules. KIDNEYS/URETERS: No hydronephrosis. Bilateral cortical thinning with irregularity and scarring of the lowerpole of the left kidney. Tiny stone within the distal right ureter. PELVIC ORGANS/BLADDER: The bladder is normal. Pelvic calcifications compatible with phleboliths. PERITONEUM/RETROPERITONEUM: No free air or fluid. Dystrophic mesenteric calcification inferior to the left kidney. LYMPH NODES: No intra- abdominal,retroperitoneal, pelvic or inguinal lymphadenopathy. VESSELS: V ascular calcification. GI TRACT: No distention or wall thickening. BONES AND SOFT TISSUES:No bony destructive lesions. Degenerative changes of the spine. No soft tissue abnormalities. IMPRESSION: 1. Tiny barely discernible distal right ureteral nonobstructing stone. 2. No renal stones, hydronephrosis or hydroureter. Signed by: Dr. Jerman Lares DO on 04/18/2018 10:28 AM Dictated By: JERMAN LARES DO 1028Transcribed By: MARYAM on 04/18/18 1028 COPY TO: JOSH CEJA [facility] 2 [id number] 13:04:00 [place] [address] Patient Name: ESMER MARRERO MR #: [id number] : 1940 Age/Sex: 77/F Req #: [id number] Adm Physician: Ordered by: SOHAIL CASTANEDA MD Report #: [id number] Location:[facility] Room/Bed: Procedure: [id number] DX/CHEST 2 VIEWS Exam Date: 02/16/18 Exam Time: 1210 REPORT STATUS: Signed PROCEDURE: X-RAY CHEST, TWO VIEWS COMPARISON: None. INDICATIONS: SHORTNESS OF BREATH, PNEUMONIA FINDINGS: LUNGS: Bibasilar opacities likely secondary to atelectasis versus pneumonia in the correct setting. PLEURA: No effusions or pneumothorax. HEART MEDIASTINUM: The heart is within normal size-limits. Calcification within the aortic knob. BONES SOFT TISSUES: No acute findings. CONCLUSION: Bibasilar pulmonary opacities. Jerman Lares D.O. Dictated by: Jerman Lares D.O. on 02/16/2018 at 13:04 Electronically approved by: Jerman Lares D.O. on 02/16/2018 at 13:04 Dictated By: JERMAN LARES DO 1304 Transcribed By: CLAY on 02/16/18 1304 COPY TO: SOHAIL CASTANEDA MDCT ABDOMEN/PELVIS WO [place] [address] Patient Name: ESMER MARRERO MR #: [id number] : 1940 Age/Sex: 76/F Req #: [id number] Adm Physician: Ordered by: JOSH CEJA MD Report #: [id number] Location: CT Room/Bed: Procedure: [id number] CT/CT ABDOMEN/PELVIS WO Exam Date: 01/08/17 Exam Time: 1230 REPORT STATUS: Signed PROCEDURE: CT ABDOMEN AND PELVIS WITHOUT CONTRAST TECHNIQUE: The abdomen and pelvis were scanned utilizing a multidetector helical scanner from the diaphragm to the lesser trochanter after the oral administration of water. No IV contrast was administered per renal stone protocol. Coronal and sagittal multiplanar reformations were obtained. COMPARISON: [facility], CT, CT ABDOMEN/PELVIS WO, 04/17/2015, 9:05. INDICATIONS: RENAL STONES FINDINGS: ABSENCE OF INTRAVENOUS CONTRAST DECREASES SENSITIVITY FOR DETECTION OF FOCAL LESIONS AND VASCULAR PATHOLOGY. LOWER THORAX: Stable. Linear opacities in the lingula and anterior left lower lobe (series 3, image 12), actually representing scarring. Lung bases are otherwise clear. Atherosclerotic calcification of the coronary arteries and thoracic aorta. HEPATOBILIARY: No focal hepatic lesions. No biliary ductal dilatation. Gallbladder is unremarkable. SPLEEN: No splenomegaly. PANCREAS: No focal masses orductal dilatation. ADRENALS: No adrenal nodules. KIDNEYS/URETERS: No renal, ureteral, or bladder calculi. No hydronephrosis, hydroureter, or evidence of obstruction. Stable cortical scarring in bilateral kidneys, left greater than right. PELVIC ORGANS/BLADDER: Bladder is decompressed, but grossly unremarkable. No bladder calculi. Uterus is absent. No adnexal masses. PERITONEUM / RETROPERITONEUM: No free air or fluid. LYMPH NODES: No lymphadenopathy. VESSELS: Atherosclerotic calcification of the abdominal aorta, aortic branches, and iliac vessels. GI TRACT: No bowel dilation or evidence of obstruction. No pericolonic inflammatory changes. BONES AND SOFT TISSUES: No acute bony abnormalities. Degenerative changes in the lower thoracic and lumbosacralspine. Generalized osteopenia. Soft tissues are grossly unremarkable. IMPRESSION: 1. no renal, ureteral, or bladder calculi. No hydronephrosis or obstruction. Yo Villareal M.D. Dictated by: Yo Villareal M.D. on 01/08/2017 at 14:08 Electronically approved by: Yo Villareal M.D. on 01/08/2017 at 14:08 Dictated By: YO VILLAREAL MD 1408 Transcribed By: CLAY on 01/08/17 1408 COPY TO: JOSH CEJA MD
[2021-09-14] MEDS ORDERED: MORPHINE 4 MG/ML SYR ONE ×2 (09:49→12:40)
[2021-09-14] MEDS ORDERED: ONDANSETRON 4 MG/2 ML VIAL ONE (09:49)
[2021-09-14] MEDS ORDERED: LIDOCAINE 4% PATCH ONE (09:49)
[2021-09-14 10:10] LABS: Absolute Lymphocytes (CBC) 1.2 K/uL (0.7-4.9); Hematocrit 37.7 % (36.0-45.0); Lymphocytes % 10.8 % (15.3-44.8); MCV 88.3 fL (80-100); MPV 9.5 fL (7.6-11.3); RBC Red Blood Cell Count 4.27 M/uL (3.86-4.86)
[2021-09-14 10:26] LABS: Bilirubin Total 0.5 mg/dL (0.2-1.0); Magnesium 1.5 mg/dL (1.8-2.4); Protein, Total 7.6 g/dL (6.4-8.2); Troponin High Sensitivity 7.9 pg/mL (<58.9)
--- NOTE | 2021-09-14 11:06 | RAD REPORT ---
EXAM DESCRIPTION: CTAbdomen Pelvis W Contrast - 09/14/2021 10:48 am CLINICAL HISTORY: RLQ abdominal pain, low midline/R sided back pain COMPARISON: No comparisons TECHNIQUE: CT of the abdomen and pelvis was performed. All CT scans are performed using dose optimization technique as appropriate and may include automated exposure control or mA/KV adjustment according to patient size. FINDINGS: Lower chest: Mitral annular calcifications. Coronary artery calcifications. Liver: No acute abnormality or suspicious lesions. Biliary: No biliary ductal dilatation. Stomach: No significant focal abnormality. Duodenum: No significant focal abnormality. Pancreas: No significant abnormality. Spleen: No significant abnormality. Adrenal: No suspicious lesions. Kidney/ureter: No hydronephrosis. No renal calculi. Renal scarring bilaterally. Too small to characte rize and/or benign appearing renal lesions are noted. Retroperitoneum: No retroperitoneal adenopathy. Vascular: No aneurysm. Atherosclerosis. Bowel: Normal appendix.. Mesenteric edema and small bowel wall thickening associated with a segment o f small bowel in the left hemiabdomen. Peritoneum: No ascites or free air. Bladder: Grossly unremarkable. Reproductive: No adnexal masses. Hysterectomy Bones: No acute fracture. Other: n/a IMPRESSION: Small bowel enteritis without evidence of bowel obstruction or other complicating featur es. The appendix is within normal limits.
[2021-09-14 12:50] LABS: Urine Bacteria <20 /HPF (<20); Urine RBC None Seen /HPF (None Seen)
[2021-09-14 13:18] LABS: Urine pH 5.5 (5.0-7.0)
[2021-09-14 13:21] LABS: Urine Blood Negative (Negative); Urine Glucose Negative (Negative); Urine Protein Negative (Negative)
--- NOTE | 2021-09-14 13:26 | EDPHYS ---
Physician Documentation [facility] Name: Esmer Hampton Age: 81 yrs Sex: Female : 1940 Arrival Date: 09/14/2021 Time: 09:12 Bed 7 Private MD: ED Physician Shoshana Wetzel HPI: 09/14 09:36 This 81 yrs old Female presents to ER via Ambulatory with complaints of Back Pain, sd2 Abdominal Pain, Pelvic Pain. 09:36 81 yo F presents with 3 day history of R and midline low back pain that has now started sd2 to radiate around to the RLQ of her abdomen. Prior history of back pain with back surgery 40 years ago. Denies any fevers, n/v/d, saddle anesthesia, bowel or bladder incontinence or retention. Denies any CP or SOB. Took a hydrocodone yesterday with some relief. Pain worsened with lifting of her legs. She is able to ambulate with her walker.. Historical: - Allergies: 09:23 Codeine; ap3 - PMHx: 09:23 Kidney stone; Hypertensive disorder; Hypercholesterolemia; Diabetes mellitus; ap3 - PSHx: 09:23 heart cath; back sx; sx for kidney stones; ap3 - Immunization history:: Client reports receiving the 2nd dose of the Covid vaccine. - Social history:: Smoking status: Patient denies any tobacco usage or history of. ROS: 09:36 Constitutional: Negative for fever, chills, and weight loss, Eyes: Negative for injury, sd2 pain, redness, and discharge, Cardiovascular: Negative for chest pain, palpitations, and edema, Respiratory: Negative for shortness of breath, cough, wheezing. Abdomen/GI: Negative for , nausea, vomiting, diarrhea. Positive for abdominal pain. Back: Negative for injury. Positive for low back pain. : Negative for dysuria, urinary frequency, hesitancy, urgency and hematuria. MS/Extremity: Negative for injury and deformity, Skin: Negative for injury, rash, and discoloration, Neuro: Negative for headache, numbness and tingling. Hematologic/Lymphatic: Negative for swollen nodes, abnormal bleeding, and unusual bruising. Exam: 09:36 Constitutional: This is a well developed, well nourished patient who is awake, alert, sd2 and in no acute distress. Head/Face: Normocephalic, atraumatic. Chest/axilla: Normal chest wall appearance and motion. Nontender with no deformity. Cardiovascular: Regular rate and rhythm with a normal S1 and S2. No gallops, murmurs, or rubs. 2+ distal pulses. Respiratory: Lungs have equal breath sounds bilaterally, clear to auscultation and percussion. No rales, rhonchi or wheezes noted. No increased work of breathing, no retractions or nasal flaring. Abdomen/GI: Soft, mild R pelvic tenderness, no McBurney's point tenderness.No guarding or rebound. Back: Mild lumbar midline and R paraspinal lumbar tenderness. No stepoffs or deformities. Full range of motion intact. Skin: Warm, dry with normal turgor. Normal color with no rashes, no lesions, and no evidence of cellulitis. MS/ Extremity: Pulses equal, no cyanosis. Neurovascular intact. Full, normal range of motion. Ambulatory without difficulty. Neuro: 5/5 strength to BLEs, pt ambulatory with walker, sensation grossly intact Psych: Awake, alert, with orientation to person, place and time. Behavior, mood, and affect are within normal limits. 10:43 ECG was reviewed by the Attending Physician. NSR, rate 67, no STEMI criteria sd2 Vital Signs: 09:21 BP 132 / 61; Pulse 70; Resp 18; Temp 99.0; Pulse Ox 99% ; Weight 97.98 kg; Height 5 ft. ap3 1 in. (154.94 cm); Pain 8/10; 10:31 BP 117 / 52; Pulse 59; Resp 16; Pulse Ox 88% on R/A; Pain 2/10; bm7 10:35 Pulse Ox 94% on 2 lpm NC; bm7 10:59 BP 130 / 70; Pulse 66; Resp 16; Pulse Ox 98% on 2 lpm NC; Pain 2/10; bm7 11:37 BP 116 / 60; Pulse 66; Resp 16; Pulse Ox 98% on 2 lpm NC; bm7 12:40 BP 126 / 55; Pulse 56; Resp 16; Pulse Ox 98% on 2 lpm NC; bm7 13:55 BP 121 / 52; Pulse 65; Resp 16; Pulse Ox 100% on R/A; Pain 3/10; bm7 09:21 Body Mass Index 40.81 (97.98 kg, 154.94 cm) ap3 MDM: 09:33 Patient medically screened. sd2 09:36 Differential diagnosis: MSK, cauda equina, epidural abscess, spinal stenosis, spasm, sd2 UTI among others. Differential diagnosis:. Data reviewed: vital signs, nurses notes. 13:20 Data reviewed: lab test result(s), radiologic studies. Counseling: I had a detailed sd2 discussion with the patient and/or guardian regarding: the historical points, exam findings, and any diagnostic results supporting the discharge/admit diagnosis, lab results, radiology results, the need for outpatient follow up, to return to the emergency department if symptoms worsen or persist or if there are any questions or concerns that arise at home. Medical screen evaluation completed. [facility]. Medication response: morphine markedly relieved the patient's pain. Symptoms have improved. ED course: Labs and imaging reviewed. Labs grossly WNCL. No significant leukocytosis. UA without infection. CTAP with possible enteritis and no other acute changes. Pt's pain improved with treatment in ED. She is ambulatory with her walker. Suspect MSK etiology for patient's back pain. She is able to tolerate PO with overall benign abdominal exam. She is comfortable with plan for discharge and outpatient follow up. Verbalizes understanding of strict return precautions. Will Rx Morphine IR and Lidoderm. pt advised to stop her [place] while taking the Morphine and to only take narcotics for severe pain unrelieved with Tylenol and muscle relaxer. Also advised not to take narcotics and muscle relaxer at the same time.. 09/14 09:36 Order name: CBC with Diff; Complete Time: 10:19 09/14 09:36 Order name: CMP; Complete Time: 10:43 09/14 09:36 Order name: Magnesium; Complete Time: 10:43 09/14 09:36 Order name: Troponin High Sensitivity; Complete Time: 10:43 09/14 09:36 Order name: Lipase; Complete Time: 10:43 09/14 09:36 Order name: Urine Microscopic Only; Complete Time: 13:00 09/14 09:36 Order name: EKG - Nurse/Tech; Complete Time: 09:49 09/14 09:41 Order name: Abdomen ; Complete Time: 11:12 EDMS 07/24 12:40 Order name: Urine Dipstick--Ancillary (enter results) 09/14 09:36 Order name: Urine Dipstick-Ancillary (obtain specimen); Complete Time: 12:22 sd2 Administered Medications: 10:04 Drug: morphine 4 mg Route: IVP; Infused Over: 4 mins; Site: right antecubital; bm7 10:47 Follow up: Response: Pain is decreased bm7 10:04 Drug: Zofran (Ondansetron) 4 mg Route: IVP; Site: right antecubital; bm7 10:47 Follow up: Response: Nausea is decreased bm7 10:04 Drug: Lidoderm Patch 5 % (700 mg/patch) 1 patches Route: Topical; Site: affected area; bm7 10:47 Follow up: Response: Pain is decreased bm7 12:40 Drug: morphine 4 mg Route: IVP; Infused Over: 4 mins; Site: right antecubital; bm7 12:56 Follow up: Response: Pain is decreased bm7 Disposition Summary: 09/14/21 13:26 Discharge Ordered Location: Home sd2 Problem: an acute exacerbation sd2 Symptoms: have improved sd2 Condition: Stable sd2 Diagnosis - Acute right sided low back pain sd2 - Enteritis sd2 - Right sided abdominal pain sd2 Followup: sd2 - With: Private Physician - When: 2 - 3 days - Reason: Recheck today's complaints, Continuance of care, Re-evaluation by your physician Followup: sd2 - With: Emergency Department - When: As needed - Reason: Discharge Instructions: - Discharge Summary Sheet sd2 - Abdominal Pain, Adult sd2 - Acute Back Pain, Adult sd2 Forms: - Medication Reconciliation Form sd2 - Thank You Letter sd2 - Antibiotic Education sd2 - Prescription Opioid Use sd2 Prescriptions: - Morphine IR 15 mg oral tablet - take 1 tablet by ORAL route every 6 hours Take only as needed for severe pain; sd2 12 tablet; Refills: 0, Product Selection Permitted - methocarbamol 750 mg Oral Tablet - take 1 tablet by ORAL route 3 times per day Take as needed for muscle spasm sd2 every 8 hours.; 15 tablet; Refills: 0, Product Selection Permitted Signatures: Dispatcher [employer] Ailyn Judd RN RN ap3 Liz Elena RN RN bm7 Shoshana Wetzel MD MD sd2 Corrections: (The following items were deleted from the chart) 09:41 09:36 Abdomen W/ Con+CT.RAD.BRZ ordered. EDMS EDMS
--- NOTE | 2021-09-14 13:26 | ER ---
Nurse's Notes [facility] Name: Esmer Hampton Age: 81 yrs Sex: Female : 1940 Arrival Date: 09/14/2021 Time: 09:12 Bed 7 Private MD: Diagnosis: Acute right sided low back pain;Enteritis;Right sided abdominal pain Presentation: 09/14 09:21 Chief complaint: Patient states: she started having low back pain approx 3 days ago. ap3 patient also reports having right lower quadrant pain that began at the same time. patient denies any recent trauma or NVD. Coronavirus screen: At this time, the client does not indicate any symptoms associated with coronavirus-19. Ebola Screen: No symptoms or risks identified at this time. Initial Sepsis Screen: Does the patient meet any 2 criteria? No. Patient's initial sepsis screen is negative. Does the patient have a suspected source of infection? No. Patient's initial sepsis screen is negative. Risk Assessment: Do you want to hurt yourself or someone else? Patient reports no desire to harm self or others. Onset of symptoms was September 11, 2021. 09:21 Method Of Arrival: Ambulatory ap3 09:21 Acuity: MILAN 3 ap3 Triage Assessment: 09:25 General: Appears uncomfortable, Behavior is calm, cooperative, appropriate for age. ap3 Pain: Complains of pain in low back area, right lower abdomen Pain began gradually, 2-3 days ago. 09:25 Neuro: Level of Consciousness is awake, alert, obeys commands, Oriented to person, ap3 place, time, situation, Speech is normal. Cardiovascular: Patient's skin is warm and dry. Respiratory: Airway is patent Respiratory effort is even, unlabored, Respiratory pattern is regular, symmetrical. Musculoskeletal: Range of motion: intact in all extremities, Reports pain in low back area. Historical: - Allergies: :23 Codeine; ap3 - PMHx: : Kidney stone; Hypertensive disorder; Hypercholesterolemia; Diabetes mellitus; ap3 - PSHx: : heart cath; back sx; sx for kidney stones; ap3 - Immunization history:: Client reports receiving the 2nd dose of the Covid vaccine. - Social history:: Smoking status: Patient denies any tobacco usage or history of. Screenin:26 Abuse screen: Denies threats or abuse. Nutritional screening: No deficits noted. ap3 Tuberculosis screening: No symptoms or risk factors identified. 10:59 Fall Risk None identified. bm7 Assessment: 10:05 General: Appears uncomfortable, Behavior is calm, cooperative. Pain: Complains of pain bm7 in low back area Pain radiates to right lower quadrant and left lower quadrant Pain currently is 10 out of 10 on a pain scale. Neuro: Level of Consciousness is awake, alert, obeys commands, Oriented to person, place, time, situation, Math And Physics Instructor are equal bilaterally Moves all extremities. Facial symmetry appears normal. Cardiovascular: Heart tones S1 S2 present Capillary refill Patient's skin is warm and dry. Chest pain is denied. Respiratory: Breath sounds are clear bilaterally. Denies shortness of breath on exertion. GI: Abdomen is round obese, Bowel sounds present X 4 quads. Abdomen is tender to palpation in right lower quadrant and left lower quadrant. : No deficits noted. No signs and/or symptoms were reported regarding the genitourinary system. EENT: No deficits noted. No signs and/or symptoms were reported regarding the EENT system. Derm: No deficits noted. No signs and/or symptoms reported regarding the dermatologic system. Musculoskeletal: No deficits noted. No signs and/or symptoms reported regarding the musculoskeletal system. 10:35 Reassessment: Patient and/or family updated on plan of care and expected duration. Pain bm7 level reassessed. Patient is alert, oriented x 3, equal unlabored respirations, skin warm/dry/pink. Pt resting comfortably and in NAD. Equal rise and fall of chest. 02 sat dropped to 88% while resting. 02 via NC \T\ 2LPM started and 02 increased. Will continue to monitor. Patient states feeling better. Patient states symptoms have improved. 11:10 Reassessment: Patient and/or family updated on plan of care and expected duration. Pain bm7 level reassessed. Patient is alert, oriented x 3, equal unlabored respirations, skin warm/dry/pink. 11:10 General: Appears in no apparent distress. comfortable. bm7 11:37 Reassessment: Patient and/or family updated on plan of care and expected duration. Pain bm7 level reassessed. Patient is alert, oriented x 3, equal unlabored respirations, skin warm/dry/pink. 12:38 Reassessment: informed ERP that patient began having severe pain upon ambulation to the 7 bedside commode. New orders obtained to repeat Morphine 4mg IV. 12:56 Reassessment: Patient and/or family updated on plan of care and expected duration. Pain bm7 level reassessed. Patient is alert, oriented x 3, equal unlabored respirations, skin warm/dry/pink. pt resting comfortably in bed. In NAD. Equal rise and fall of chest. Voices no complaints this time. Will continue to monitor. at bedside. Vital Signs: 09:21 BP 132 / 61; Pulse 70; Resp 18; Temp 99.0; Pulse Ox 99% ; Weight 97.98 kg; Height 5 ft. ap3 1 in. (154.94 cm); Pain 8/10; 10:31 BP 117 / 52; Pulse 59; Resp 16; Pulse Ox 88% on R/A; Pain 2/10; bm7 10:35 Pulse Ox 94% on 2 lpm NC; bm7 10:59 BP 130 / 70; Pulse 66; Resp 16; Pulse Ox 98% on 2 lpm NC; Pain 2/10; bm7 11:37 BP 116 / 60; Pulse 66; Resp 16; Pulse Ox 98% on 2 lpm NC; bm7 12:40 BP 126 / 55; Pulse 56; Resp 16; Pulse Ox 98% on 2 lpm NC; bm7 13:55 BP 121 / 52; Pulse 65; Resp 16; Pulse Ox 100% on R/A; Pain 3/10; bm7 09:21 Body Mass Index 40.81 (97.98 kg, 154.94 cm) ap3 ED Course: 09:12 Patient arrived in ED. as 09:13 Shoshana Wetzel is Attending Physician. sd2 09:23 Triage completed. ap3 09:26 Arm band placed on left wrist. ap3 09:37 Liz Elena, RN is Primary Nurse. bm7 09:49 EKG done, by ED staff, reviewed by Shoshana Wetzel. mb7 10:04 Inserted saline lock: 20 gauge in right antecubital area, using aseptic technique. bm7 Blood collected. 10:05 Placed in gown. Bed in low position. Call light in reach. Side rails up X 1. Client bm7 placed on continuous cardiac and pulse oximetry monitoring. NIBP monitoring applied. technical writer on. Warm blanket given. 10:05 Initial lab(s) drawn, by me, sent to lab. bm7 10:[address] bm7 10:40 Oxygen administration via nasal cannula \T\ 2L/min Response to oxygen therapy: symptoms bm7 improved. 10:49 Abdomen In Process Unspecified. EDMS 10:59 No apparent distress. Resting quietly. Awaiting CT Scan. Patient moved back from CT. bm7 11:10 No provider procedures requiring assistance completed. bm7 12:22 Assisted to bedside commode. bm7 12:22 Urine collected: clean catch specimen, cloudy. bm7 13:56 IV discontinued, intact, bleeding controlled, No redness/swelling at site. Pressure bm7 dressing applied. Administered Medications: 10:04 Drug: morphine 4 mg Route: IVP; Infused Over: 4 mins; Site: right antecubital; bm7 10:47 Follow up: Response: Pain is decreased bm7 10:04 Drug: Zofran (Ondansetron) 4 mg Route: IVP; Site: right antecubital; bm7 10:47 Follow up: Response: Nausea is decreased bm7 10:04 Drug: Lidoderm Patch 5 % (700 mg/patch) 1 patches Route: Topical; Site: affected area; bm7 10:47 Follow up: Response: Pain is decreased bm7 12:40 Drug: morphine 4 mg Route: IVP; Infused Over: 4 mins; Site: right antecubital; bm7 12:56 Follow up: Response: Pain is decreased bm7 Medication: 10:05 VIS not applicable for this client. bm7 Output: 12:22 Urine: 200ml (Voided); Total: 200ml. bm7 Outcome: 13:26 Discharge ordered by MD. uribe 13:56 Discharged to home via wheelchair. bm7 13:56 Condition: improved 13:56 Discharge instructions given to patient, family, Instructed on discharge instructions, follow up and referral plans. medication usage, Demonstrated understanding of instructions, follow-up care, medications, Prescriptions given X 2. 13:59 Patient left the ED. bm7 Signatures: Dispatcher [employer] Agustina Douglas Amanda, RN RN ap3 Liz Elena RN RN bm7 Esmer King mb7 Damari, Shoshana, MD MD sd2
[2021-09-14 14:13] VITALS: TEMP 99
[2021-09-14 14:37] VITALS: BP 121/52; O2SAT 100
--- NOTE | 2021-09-15 09:28 | EKG ---
Test Date: 2021-09-14 Test Time: 09:48:08 Copy Manager: MB MEASUREMENT RESULTS: Intervals: Rate: 67 MS: 162 QRSD: 104 QT: 396 QTc: 418 [place]: P: 74 MS: 162 QRS: -50 T: 56 INTERPRETIVE STATEMENTS: Normal sinus rhythm Left anterior fascicular block Abnormal ECG No previous ECG available for comparison Electronically Signed On 09-15-21 09:24:55 CDT by Cabrera Penn
== END 2021-09-14 13:59 | disposition home or self-care (01) ==
LOC: ER 09:11
DX: M54.50 Low back pain, unspecified (principal); K52.9 Noninfective gastroenteritis and colitis, unspecified; R10.31 Right lower quadrant pain; I10 Essential (primary) hypertension; Z87.442 Personal history of urinary calculi; Z88.5 Allergy status to narcotic agent
CPT/HCPCS: 93005; 85025; 36415; 83735; 84484; 83690; 80053; 74177; Q9967; J2001; J2405; 81003; 81015; 96374; 96375; 99285

== ENCOUNTER 2021-11-14 07:19 | Emergency (ER) | payer OTHER, MEDICARE ==
--- OUTSIDE RECORDS SUMMARY | 2021-11-14 07:54 | XMS REPORT | Continuity of Care Document ---
:1940 Author Organization [facility] t Address [address] [place] [address] Care Team Providers Name Role Phone Chet Attending Clinician Unavailable Piotr Hartley Attending Clinician [phone] Hermelindo Worley Attending Clinician Unavailable JOSH CEJA Attending Clinician Unavailable GEORGE FARFAN Attending Clinician Unavailable Mat Gracia V Attending Clinician Chet Admitting Clinician Unavailable Hermelindo Worley Admitting Clinician Unavailable Payers Payer Name Policy Type Policy Number Effective Date Expiration Date S ource MEDICARE [place]: [id number] 2006 [employer] 00:00:00 [facility] - [id number] 2021 OPTIONS 00:00:00 Problems Condition Condition Condition Status Onset Resolution Last Treating Co mments Source Name Details Category Date Date Treatment Clinician Date C A D C A D Diagnosis Active 2014-08-21 Mem oria Active 08-17 08:19:00 l 08/17/2014 00:00: Nicho DUKES 00 [place] NEED NEED Diagnosis Active 2014-08-20 Mem oria Active 08-17 15:35:00 l 08/17/2014 00:00: Nicho n MH 00 [place] 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 , , unspecifie unspecifie d d Active Problem 05/17/2020 [facility] 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, syndrome, Herm junaid not not elsewhere elsewhere classified classified Active Problem 05/17/2020 [facility] Vitamin D Vitamin D Problem Active 2020-05-17 Memoria deficiency deficiency 02:48:03 l , , Niall unspecifie unspecifie d d Active Problem 05/17/2020 [facility] Occlusion Occlusion Problem Active 2020-05-17 Memoria and and 02:48:03 l 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 Active Problem 05/17/2020 [facility] Gastro-eso Gastro-es Problem Active 2020-05-17 Memoria phageal ophageal 02:48:03 l reflux reflux Niall disease disease with with esophagiti esophagiti s s Active Problem 05/17/2020 [facility] Pain in Pain in Problem Active 2020-05-17 Me moria unspecifie unspecifie 02:48:03 l d knee d knee Niall Active Problem 05/17/2020 [facility] Frequency Frequency Problem Active 2020-05-17 Memoria of of 02:48:03 l micturitio micturitio He rmann n n Active Problem 05/17/2020 [facility] Asymptomat Asymptoma Problem Active 2020-05-17 Memoria ic tic 02:48:03 l menopausal menopausal He rmann state state Active Problem 05/17/2020 [facility] Other Other Problem Active 2020-05-17 Memor ia chronic chronic 02:48:03 l sinusitis sinusitis Herm junaid Active Problem 05/17/2020 [facility] 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 angina angina pectoris pectoris Active Problem 05/17/2020 [facility] Generalize Generaliz Problem Active 2020-05-17 Memoria d ed 02:48:03 l abdominal abdominal Herm junaid pain pain Active Problem 05/17/2020 [facility] Chest Chest Problem Active 2020-05-17 Memor ia pain, pain, 02:48:03 l unspecifie unspecifie He rmann d d Active Problem 05/17/2020 [facility] Essential Essential Problem Active 2020-05-17 Memoria (primary) (primary) 02:48:03 l hypertensi hypertensi He rmann on on Active Problem 05/17/2020 [place] [facility] Other Other Problem Active 2020-05-17 Memor ia constipati constipati 02:48:03 l on on Active Nicho n Problem 05/17/2020 [facility] Pain in Pain in Problem Active 2020-05-17 Me moria right right 02:48:03 l shoulder shoulder Nicho n Active Problem 05/17/2020 [facility] Carpal Carpal Problem Active 2020-05-17 Alfredo renetta tunnel tunnel 02:48:03 l syndrome, syndrome, Herm junaid unspecifie unspecifie d upper d upper limb limb Active Problem 05/17/2020 [facility] Pain in Pain in Problem Active 2020-05-17 Me moria left ankle left ankle 02:48:03 l and joints and joints He rmann of left of left foot foot Active Problem 05/17/2020 [facility] Low back Low back Problem Active 2020-05-17 Memoria pain pain 02:48:03 l Active [place] Problem 05/17/2020 [facility] Obstructiv Obstructi Problem Active 2020-05-17 Memoria e sleep ve sleep 02:48:03 l apnea apnea Niall (adult) (adult) (pediatric (pediatric ) ) Active Problem 05/17/2020 [facility] Wheezing Wheezing Problem Active 2020-05-17 Memoria Active 02:48:03 l Problem [place] 05/17/2020 [facility] Cracked Cracked Problem Active 2020-05-17 Me moria tooth tooth 02:48:03 l Active Niall Problem 05/17/2020 [place] [facility] Localized Localized Problem Active 2020-05-17 Memoria edema edema 02:48:03 l Active Niall Problem 05/17/2020 [facility] 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 hyperlipid 02:48:03 l emia emia [place] Active Problem 05/17/2020 [facility] Acute Acute Problem Active 2020-05-17 Memor ia gingivitis gingivitis 02:48:03 l , plaque , plaque Nicho n induced induced Active Problem 05/17/2020 Javed palomino Age-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 2020-05-17 Memoria d ed 02:48:03 l osteoporos osteoporos He rmann is with is with current current pathologic pathologic al al fracture, fracture, unspecifie unspecifie d site, d site, subsequent subsequent encounter encounter for for fracture fracture with with routine routine healing healing Active Problem 05/17/2020 Javed palomino Unspecifie Unspecifi Problem Active 2020-05-17 Memoria d fall, ed fall, 02:48:03 l subsequent subsequent He ann encounter encounter Active Problem 05/17/2020 [facility] Other Other Problem Active 2020-05-17 Memor ia muscle muscle 02:48:03 l spasm spasm [place] Active Problem 05/17/2020 Javed palomino Age-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 2020-05-17 Memoria d ed 02:48:03 l osteoporos osteoporos He rmann is with is with current current pathologic pathologic al al fracture, fracture, left ankle left ankle and foot, and foot, subsequent subsequent encounter encounter for for fracture fracture with with delayed delayed healing healing Active Problem 05/17/2020 [facility] Other Other Problem Active 2020-05-17 Memor ia interverte interverte 02:48:03 l bral disc bral disc Herm junaid degenerati degenerati on, on, lumbosacra lumbosacra l region l region Active Problem 05/17/2020 [facility] Cough Cough Problem Active 2020-05-17 Alfredo renetta Active 02:48:03 l Problem [place] 05/17/2020 [facility] Other Other Problem Active 2020-05-17 Memor ia interverte interverte 02:48:03 l bral disc bral disc Herm junaid degenerati degenerati on, lumbar on, lumbar region region Active Problem 05/17/2020 [facility] Acute Acute Problem Active 2020-05-17 Memor ia bronchitis bronchitis 02:48:03 l , , Niall unspecifie unspecifie d d Active Problem 05/17/2020 [facility] Peripheral Periphera Problem Active 2020-05-17 Memoria vascular l vascular 02:48:03 l disease, disease, Nicho n unspecifie unspecifie d d Active Problem 05/17/2020 [facility] Other Other Problem Active 2020-05-17 Memor ia fatigue fatigue 02:48:03 l Active [place] Problem 05/17/2020 [facility] Early-onse Problem Active 2020-05-17 M emoria 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 Active Problem 05/17/2020 Javed palomino Shortness Shortness Problem Active 2020-05-17 Memoria of breath of breath 02:48:03 l Active [place] Problem 05/17/2020 [facility] 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 02:48:03 l myelopathy myelopathy He rmann or or radiculopa radiculopa thy, thy, lumbosacra lumbosacra l region l region Active Problem 05/17/2020 [facility] 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 02:48:03 l mellitus mellitus Nicho n with with hyperglyce hyperglyce clair clair Active Problem 05/17/2020 [facility] Other Other Problem Active 2020-05-17 Memor ia abnormal abnormal 02:48:03 l and and Niall inconclusi inconclusi ve ve findings findings on on diagnostic diagnostic imaging of imaging of breast breast Active Problem 05/17/2020 [facility] Morbid Morbid Problem Active 2020-05-17 Alfredo renetta (severe) (severe) 02:48:03 l obesity obesity [place] due to due to excess excess calories calories Active Problem 05/17/2020 [facility] Adjustment Adjustmen Problem Active 2020-05-17 Memoria insomnia t insomnia 02:48:03 l Active Niall Problem 05/17/2020 [facility] Behavioral Behaviora Problem Active 2020-05-17 Memoria insomnia l insomnia 02:48:03 l of of Niall childhood, childhood, unspecifie unspecifie d type d type Active Problem 05/17/2020 [facility] Encounter Encounter Problem Active 2020-05-17 Memoria for for 02:48:03 l screening screening Herm junaid mammogram mammogram for for malignant malignant neoplasm neoplasm of breast of breast Active Problem 05/17/2020 [facility] Acute Acute Problem Active 2020-05-17 Memor ia frontal frontal 02:48:03 l sinusitis, sinusitis, He rmann unspecifie unspecifie d d Active Problem 05/17/2020 [facility] Age-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 2020-05-17 Memoria d ed 02:48:03 l osteoporos osteoporos He rmann is with is with current current pathologic pathologic al al fracture, fracture, left left humerus, humerus, initial initial encounter encounter for for fracture fracture Active Problem 05/17/2020 [facility] Chronic Chronic Problem Active 2020-05-17 Me moria sinusitis, sinusitis, 02:48:03 l unspecifie unspecifie He rmann d d Active Problem 05/17/2020 [facility] Other Other Problem Active 2020-05-17 Memor ia acute acute 02:48:03 l sinusitis sinusitis Herm junaid Active Problem 05/17/2020 [facility] Muscle Muscle Problem Active 2020-05-17 Alfredo renetta spasm of spasm of 02:48:03 l back back [place] Active Problem 05/17/2020 [facility] Arthralgia Arthralgi Problem Active 2020-05-17 Memoria of right a of right 02:48:03 l temporoman temporoman He rmann dibular dibular joint joint Active Problem 05/17/2020 [facility] Acute Acute Problem Active 2020-05-17 Alfredo renetta upper upper 02:48:03 l respirator respirator He rmann y y infection, infection, unspecifie unspecifie d d Active Problem 05/17/2020 [facility] Resistance Problem Active 2020-05-17 M emoria to other Resistance 02:48:03 l specified to other Mi nn beta specified lactam beta antibiotic lactam s antibiotic s Active Problem 05/17/2020 [facility] Hypothyroi Hypothyro Problem Active 2020-05-17 Memoria dism, idism, 02:48:03 l unspecifie unspecifie He rmann d d Active Problem 05/17/2020 [facility] Menopausal Menopausa Problem Active 2020-05-17 Memoria and female l and 02:48:03 l climacteri female Nicho n c states climacteri c states Active Problem 05/17/2020 [facility] Cervicalgi Cervicalg Problem Active 2020-05-17 Memoria a ia Active 02:48:03 l Problem [place] 05/17/2020 [facility] Hyperlipid Hyperlipi Problem Active 2020-05-17 Memoria emia, demia, 02:48:03 l unspecifie unspecifie He rmann d d Active Problem 05/17/2020 [facility] Other Other Problem Active 2020-05-17 Memor ia dorsalgia dorsalgia 02:48:03 l Active [place] Problem 05/17/2020 [facility]aved [facility] Age-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 2020-05-17 Memoria d ed 02:48:03 l osteoporos osteoporos He rmann is without is without current current pathologic pathologic al al fracture fracture Active Problem 05/17/2020 [facility] Dietary Dietary Problem Active 2020-05-17 Me moria counseling counseling 02:48:03 l Lorna surveillan surveillan ce ce Active Problem 05/17/2020 [facility] Acute Acute Problem Active 2020-05-17 Memor ia maxillary maxillary 02:48:03 l sinusitis, sinusitis, He rmann unspecifie unspecifie d d Active Problem 05/17/2020 [facility] Body mass Body mass Problem Active 2020-05-17 Memoria index index 02:48:03 l (BMI) (BMI) Niall 39.0-39.9, 39.0-39.9, adult adult Active Problem 05/17/2020 [facility] Person Person Problem Active 2020-05-17 Alfredo renetta consulting consulting 02:48:03 l for for Niall explanatio explanatio n of n of examinatio examinatio n or test n or test findings findings Active Problem 05/17/2020 Javed palomino Diabetes Diabetes Problem Active 2020-05-17 Memoria mellitus mellitus 02:48:03 l due to due to [place] underlying underlying condition condition with with hypoglycem hypoglycem ia without ia without coma coma Active Problem 05/17/2020 Javed palomino Pain in Pain in Problem Active 2020-05-17 Me moria right hip right hip 02:48:03 l Active Niall Problem 05/17/2020 Javed palomino Diabetes Diabetes Problem Active 2020-05-17 Memoria mellitus mellitus 02:48:03 l due to due to Niall underlying underlying condition condition with with diabetic diabetic neuropathy neuropathy , , unspecifie unspecifie d d Active Problem 05/17/2020 Javed palomino Encounter Encounter Problem Active 2020-05-17 Memoria for for 02:48:03 l immunizati immunizati Adalberto bennett on on Active Problem 05/17/2020 Javed palomino Body mass Body mass Problem Active 2020-05-17 Memoria index index 02:48:03 l (BMI) (BMI) [place] 40.0-44.9, 40.0-44.9, adult adult Active Problem 05/17/2020 Javed palomino Periapical Periapica Diagnosis Active 2018-10-16 Memoria abscess l abscess 02:45:30 l without without [place] sinus sinus Active Diagnosis 10/16/2018 Javed palomino Bilateral Problem Active 2020-05-17 Me moria 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:48:03 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 Active Problem 05/17/2020 Javed palomino Allergic Allergic Problem Active 2020-05-17 Memoria rhinitis, rhinitis, 02:48:03 l unspecifie unspecifie Adalberto bennett d d Active Problem 05/17/2020 Javed palomino BATSHEVA - BATSHEVA - Problem Active 2014-12-26 Memor ia Obstructiv Obstructiv 03:48:59 l e sleep e sleep [place] apnea apnea (adult) (adult) (pediatric (pediatric ) ) Active Problem 12/26/2014 Javed palomino SOB - SOB - Problem Active 2014-12-26 Memor ia Shortness Shortness 03:48:59 l of breath of breath Herm junaid Active Problem 12/26/2014 Javed palomino Fatigue Fatigue Problem Active 2014-12-26 Me moria and and 03:48:59 l Generalize Generalize He rmann d Weakness d Weakness Active Problem 12/26/2014 Javed palomino Urinary Urinary Problem Active 2014-12-26 Me moria frequency frequency 03:48:59 l Active [place] Problem 12/26/2014 Javed palomino knee pain knee pain Problem Active 2014-12-26 Memoria Active 03:48:59 l Problem [place] 12/26/2014 Javed palomino Unspecifie Unspecifi Problem Active 2014-12-26 Memoria d vitamin ed vitamin 03:48:59 l D D [place] deficiency deficiency Active Problem 12/26/2014 Javed palomino Other Other Problem Active 2014-12-26 Memor ia chronic chronic 03:48:59 l sinusitis sinusitis Herm junaid Active Problem 12/26/2014 Javed palomino Asymptomat Asymptoma Problem Active 2014-12-26 Memoria ic tic 03:48:59 l postmenopa postmenopa He rmann usal usal status status (age-relat (age-relat ed) ed) (natural) (natural) Active Problem 12/26/2014 Javed palomino GERD - GERD - Problem Active 2014-12-26 Mem oria Reflux Reflux 03:48:59 l esophagiti esophagiti He rmann s s Active Problem 12/26/2014 Javed palomino Abdominal Abdominal Problem Active 2014-12-26 Memoria pain, pain, 03:48:59 l generalize generalize He rmann d d Active Problem 12/26/2014 Javed palomino DM type 2 DM type 2 Problem Active 2014-12-26 Memoria Diabetes Diabetes 03:48:59 l mellitus mellitus Nicho n without without mention of mention of complicati complicati on, type on, type II or II or unspecifie unspecifie d type, d type, uncontroll uncontroll ed ed Active Problem 12/26/2014 Javed palomino HTN - HTN - Problem Active 2014-12-26 Memor ia Unspecifie Unspecifie 03:48:59 l d d [place] essential essential hypertensi hypertensi on on Active Problem 12/26/2014 [facility] Mixed Mixed Problem Active 2014-12-26 Memor ia hyperlipid hyperlipid 03:48:59 l emia emia [place] Active Problem 12/26/2014 Javed Rosariotie s Wheezing Wheezing Problem Active 2014-12-26 Memoria Active 03:48:59 l Problem [place] 12/26/2014 Javed Hickman s Unspecifie Unspecifi Problem Active 2014-12-26 Memoria d ed 03:48:59 l peripheral peripheral He rmann vascular vascular disease disease Active Problem 12/26/2014 Javed Hickman s Unspecifie Unspecifi Problem Active 2014-12-26 Memoria d ed 03:48:59 l hereditary hereditary He rmann and and 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 Active Problem 12/26/2014 [facility] Enlargemen Enlargeme Diagnosis Active 2014-09-06 Memoria t of lymph nt of 02:45:50 l nodes lymph Niall nodes Active Diagnosis 09/06/2014 Javed Hickman s Unspecifie Unspecifi Problem Active 2014-12-26 Memoria d abnormal ed 03:48:59 l mammogram abnormal Mi nn mammogram Active Problem 12/26/2014 Javed Hickman s Other Other Problem Active 2014-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 [place] Active Problem 12/26/2014 Javed Hickman s Occlusion Occlusion Problem Active 2014-12-26 Memoria and and 03:48:59 l stenosis stenosis Nicho n of carotid of carotid artery artery without without mention of mention of cerebral cerebral infarction infarction Active Problem 12/26/2014 [facility] Postlamine Postlamin Problem Active 2014-12-26 Memoria ctomy ectomy 03:48:59 l syndrome, syndrome, Herm junaid lumbar lumbar region region Active Problem 12/26/2014 [facility] Degenerati Degenerat Problem Active 2014-12-26 Memoria on of ion of 03:48:59 l lumbar or lumbar or Herm junaid lumbosacra lumbosacra l l interverte interverte bral disc bral disc Active Problem 12/26/2014 Javed Hickman s Lumbosacra Lumbosacr Problem Active 2014-12-26 Memoria l al 03:48:59 l 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 without s without myelopathy myelopathy Active Problem 12/26/2014 Javed Hickman s Cracked Cracked Problem Active 2014-12-26 Ks marylu tooth tooth 03:48:59 l Active Niall Problem 12/26/2014 [facility]aved Hickman s Acute Acute Problem Active 2014-12-26 Memor ia gingivitis gingivitis 03:48:59 l , plaque , plaque Nicho n induced induced Active Problem 12/26/2014 Javed palomino Allergic Allergic Diagnosis Active 2014-04-05 Memoria rhinitis rhinitis 03:51:03 l due to due to [place] pollen pollen Active Diagnosis 04/05/2014 Javed palomino Cardiac Cardiac Problem Active 2014-08-24 Ks marylu catheteriz catheteriz 01:38:43 l ation ation [place] post-inter post-inter vention vention phase phase (qualifier (qualifier value) value) Active Problem 08/24/2014 [facility] Diabetes Diabetes Problem Active 2014-08-24 Memoria mellitus mellitus 01:38:43 l (disorder) (disorder) He rmann Active Problem 08/24/2014 [facility] Gout Gout Problem Active 2014-08-24 Memor ia (disorder) (disorder) 01:38:43 l Active Niall Problem 08/24/2014 [facility] Hypertensi Hypertens Problem Active 2014-08-24 Memoria ve macarena 01:38:43 l disorder, disorder, Herm junaid systemic systemic arterial arterial (disorder) (disorder) Active Problem 08/24/2014 [facility] Rheumatoid Rheumatoi Problem Active 2014-08-24 Memoria arthritis d 01:38:43 l (disorder) arthritis Her hugo (disorder) Active Problem 08/24/2014 [facility] CRNRY CRNRY Diagnosis Active 2014-08-21 Mem oria ATHRSCL ATHRSCL 08:19:00 l NATVE VSSL NATVE VSSL He rmann Active [facility] Allergies, Adverse Reactions, Alerts Allergy Allergy Status Severity Reaction(s) Onset Inactive Treating Comm ents Source Name Type Date Date Clinician codienerika hand Active itch 2017-02 Memoria 2-19 l 00:00: Niall 00 codeine DA Active [facility] 07-26 Clear 00:00: Acevedo 00 [facility] propoxyp DA Active [facility] 07-26 Clear 00:00: Acevedo 00 [facility] codeine DA Active [facility] 6-04 Clear 00:00: Acevedo 00 [facility] propoxyp DA Active [facility] hene 07-26 Clear 00:00: Acevedo 00 [facility] codeine codeine Active Memoria l Niall Social History Social Habit Start Date Stop Date Quantity Comments Source Useofrecreational/ 2016-03-04 2016-03-04 Shamar al Niall [facility]? 00:00:00 00:00:00 Medications Ordered Filled Start Stop Current Ordering Indication Dosage Frequency Signature Comments Components Source Medication Medication Date Date Medication? Clinician (SIG) Name Name Pavel Yes Nedal Edgar 50 units M emoria 70/30 3-26 in am and l 02:47: 40 units [place] 52 in pm MiraLax Yes Nedal Edgar not Memor ia - defined l 02:47: Niall Rosales Simvastatin Yes Nedal Edgar 1 tablet Memoria 3-26 in the l 02:47: evening Niall Rosales Krystyna 0 Yes Nedal Edgar 1 tablet Mem oria Aspirin 3- l 02:47: Niall Rosales ReliOn Yes Nedal Edgar 50 units Me moria 70/30 3-26 am and 30 l 02:47: units pm Niall Rosales Plavix 0 Yes Nedal Edgar 1 tablet Me moria 3-26 l 02:47: Niall Rosales Vitamin C 0 Yes Nedal Edgar 1 tablet Memoria 3-26 l 02:47: Niall Rosales Cetirizine 0 Yes Nedal Edgar 1 tablet Memoria HCl 3-26 l 02:47: Niall Rosales Amoxicillin 0 Yes Nedal Edgar not M emoria -Pot 3-26 defined l Clavulanate 02:47: Nicho Rosales Metoprolol 0 Yes Nedal Edgar 1 tablet Memoria Succinate 3-26 l ER 02:47: Niall Rosales Omeprazole 0 Yes Nedal Edgar 1 capsule Memoria 3-26 l 02:47: Niall Rosales Accu-Chek 0 Yes Nedal Edgar use as M emoria Vivi Plus 3-26 directed l 02:47: Niall Rosales Lisinopril Yes Nedal Edgar 1 TABLET Memoria 05-17 ONCE A DAY l 02:47: ORALLY 90 Niall 52 DAYS Prevacid Yes Nedal Edgar 1 capsule Memoria 05-17 before a l 02:47: meal Niall 52 Simvastatin Yes Nedal Edgar 1 tablet Memoria 05-17 in the l 02:47: evening Niall 52 Cetirizine Yes Nedal Edgar 1 tablet Memoria HCl 05-17 l 02:47: Niall 52 Amoxicillin Yes Nedal Edgar not M emoria -Pot 05-17 defined l Clavulanate 02:47: Nicho Rosales Krystyna Yes Nedal Edgar 1 tablet Mem oria Aspirin 05-17 l 02:47: Niall 52 MiraLax Yes Nedal Edgar not Memor ia 05-17 defined l 02:47: Niall 52 Plavix Yes Nedal Edgar 1 tablet Me moria 05-17 l 02:47: Niall Rosales ReliOn Yes Nedal Edgar 50 units Me moria 70/30 05-17 am and 30 l 02:47: units pm Niall 52 Metoprolol Yes Nedal Edgar 1 tablet Memoria Succinate 05-17 l ER 02:47: Niall 52 Novolin Yes Nedal Edgar 50 units M emoria 70/30 05-17 in am and l 02:47: 40 units Niall 52 in pm Vitamin C 0 Yes Nedal Edgar 1 tablet Memoria 05-17 l 02:47: Niall 52 Omeprazole Yes Nedal Edgar 1 capsule Memoria 05-17 l 02:47: Niall 52 Accu-Chek Yes Nedal Edgar use as M emoria Vivi Plus - directed l 02:47: Niall 52 Lisinopril Yes Nedal Edgar 1 TABLET Memoria 05-17 ONCE A DAY l 02:47: ORALLY 90 Niall 52 DAYS Prevacid Yes Nedal Edgar 1 capsule Memoria 3-26 before a l 02:47: meal Omeprazole 2020-0 Yes Carol 1 capsule M emoria 3-27 PeckSamman l 02:45: Omeprazole 2020-0 Yes Carol 1 capsule M emoria 3-27 PeckSamman l 02:45: Accu-Chek 2019-0 Yes Jimmy use as Memori a Vivi Plus 9-19 zzzAmer directed l 02:46: Lisinopril 2019-0 Yes Jimmy 1 TABLET Mem oria 9-19 zzzAmer ONCE A DAY l 02:46: ORALLY 90 DAYS Prevacid 2019-0 Yes Jimmy 1 capsule Alfredo renetta 9-19 zzzAmer before a l 02:46: meal Accu-Chek 0 Yes Jimmy use as Memori a Vivi Plus 9-19 zzzAmer directed l 02:46: Prevacid 20190 Yes Jimmy 1 capsule Alfredo renetta 9-19 zzzAmer before a l 02:46: meal Lisinopril 2019-0 Yes Jimmy 1 TABLET Mem oria 9-19 zzzAmer ONCE A DAY l 02:46: ORALLY 90 DAYS Omeprazole 20190 Yes Carol TAKE 1 Alfredo renetta 8-25 PeckSamman CAPSULE l 02:45: DAILY Omeprazole 2019-0 Yes Carol TAKE 1 Alfredo renetta 8-25 PeckSamman CAPSULE l 02:45: DAILY Doxycycline 2018-1 Yes Nedal Edgar 1 capsule Memoria Hyclate 2-13 l 00:00: PredniSONE 2018-1 Yes Nedal Edgar 1 tablet Memoria 2-13 l 00:00: Doxycycline 2018-1 Yes Nedal Edgar 1 capsule Memoria Hyclate 2-13 l 00:00: PredniSONE 2018-1 Yes Nedal Edgar 1 tablet Memoria 2-13 l 00:00: Valium 2018-1 Yes Nedal Edgar 1 tablet Me moria 2-06 l 00:00: Valium 2018-1 Yes Nedal Edgar 1 tablet Me moria 2-06 l 00:00: Levofloxaci 2018-0 Yes Nedal Edgar 1 tablet Memoria n 9-18 l 00:00: Levofloxaci 2018-0 Yes Nedal Edgar 1 tablet Memoria n 9-18 l 00:00: Amoxicillin 2018-0 Yes Nedal Edgar 1 tablet Memoria 9-04 l 00:00: Amoxicillin 2018-0 Yes Nedal Edgar 1 tablet Memoria 9-04 l 00:00: Medrol 2018-0 Yes Jimmy as Memoria (Dylan) 3-21 zzzAmer directed l 00:00: Medrol 2018-0 Yes Jimmy as Memoria (Dylan) 3-21 zzzAmer directed l 00:00: Hydrocodone 2018-0 Yes Carol 1 tablet M emoria -Acetaminop 2-13 Shetty-Samma as needed l hen 00:00: n Hydrocodone 2018-0 Yes Carol 1 tablet M emoria -Acetaminop 2-13 Shetty-Samma as needed l hen 00:00: n [place] 2018-0 Yes Carol 1 tablet Memoria 1-11 Shetty-Samma as needed l 00:00: n [place] 2018-0 Yes Carol 1 tablet Memoria 1-11 Shetty-Samma as needed l 00:00: n Voltaren 2018-0 Yes Nedal Edgar one Alfredo renetta 1-09 applicatio l 00:00: n Voltaren 2018-0 Yes Nedal Edgar one Alfredo renetta 1-09 applicatio l 00:00: n Tamiflu 2018-0 Yes Nedal Edgar 1 capsule Memoria 1-02 l 00:00: Tamiflu 2018-0 Yes Nedal Edgar 1 capsule [facility]oria 1-02 l 00:00: Famotidine 2017-1 Yes Nedal Edgar 1 tablet [facility]oria 2-28 l 00:00: Ibuprofen 2017-1 Yes Carol 1 tablet Mem oria 2-28 Shetty-Samma with food l 00:00: n or milk Famotidine 2017-1 Yes Nedal Edgar 1 tablet Memoria 2-28 l 00:00: Ibuprofen 2017-1 Yes Carol 1 tablet Mem oria 2-28 Shetty-Samma with food l 00:00: n or milk Duexis 2017 Yes Carol 1 tablet Memori a 2-27 Shetty-Samma l 00:00: n Flexeril 2016-02 Yes Carol 1 tablet Alfredo renetta 2-27 Shetty-Samma as needed l 00:00: n Duexis 2016-02 Yes Carol 1 tablet Memori a 2-27 Shetty-Samma l 00:00: n Flexeril 2016-02 Yes Carol 1 tablet Alfredo renetta 2-27 Shetty-Samma as needed l 00:00: n Clindamycin 2017 Yes Carol 1 capsule [facility] HCl 2-19 PeckSamman l 00:00: Clindamycin 2016-02 Yes Carol 1 capsule [facility] HCl 2-19 PeckSamman l 00:00: Prevacid 2016-02 Yes Carol 1 capsule Mem oria 2-07 Shetty-Samma before a l 03:46: n meal [place] 27 Prevacid 2016-02 Yes Carol 1 capsule Mem oria 2-07 Shetty-Samma before a l 03:46: n meal Amoxicillin 2016-02 Yes Carol 1 tablet M emoria -Pot 2-07 PeckSamman l Clavulanate 00:00: Nicho hall Amoxicillin 2016- Yes Carol 1 tablet M emoria -Pot 2-07 PeckSamman l Clavulanate 00:00: Nicho hall ReliOn 2017-0 Yes Jimmy 50 units Alfredo renetta 70/30 9-05 Kerns am and 30 l 02:45: units pm Niall 12 ReliOn 2017-0 Yes Jimmy 50 units Alfredo renetta 70/30 9-05 Kerns am and 30 l 02:45: units pm [place] 12 Zyrtec Yes Carol 1 capsule Memor ia Allergy 7-16 Shetty-Samma as needed l 00:00: n Niall 00 Zyrtec Yes Carol 1 capsule Mem[facility] ia Allergy 7-16 Shetty-Samma as needed l 00:00: n Niall Hydrocodone 2016- Yes Carol 1 tablet M emoria -Acetaminop 7-12 Shetty-Samma as needed l hen 00:00: n [place] Hydrocodone 2016- Yes Carol 1 tablet M emoria -Acetaminop 7-12 Shetty-Samma as needed l hen 00:00: n [place] Tramadol 2016-0 Yes Carol 1 tablet Alfredo renetta HCl 7-11 Shetty-Samma as needed l 00:00: n [place] Tramadol 2016-0 Yes Carol 1 tablet Alfredo ernetta HCl 7-11 Shetty-Samma as needed l 00:00: n Niall Amoxicillin 2016- Yes Carol 1 tablet M emoria 5-15 Shetty-Samma l 00:00: n Niall Amoxicillin 2016- Yes Carol 1 tablet M emoria 5-15 Shetty-Samma l 00:00: n Niall Omeprazole Yes Carol 1 capsule M emoria 3-13 Shetty-Samma l 02:50: n Niall Omeprazole Yes Carol 1 capsule M emoria 3-13 Shetty-Samma l 02:50: n Niall Accu-Chek Yes Carol use as Memor ia Vivi Plus 3-08 Shetty-Samma directed l 03:52: n Niall Plavix Yes Carol 1 tablet Memori a 3-08 Shetty-Samma l 03:52: n Niall Krystyna Yes Carol 1 tablet Memoria Aspirin 3-08 Shetty-Samma l 03:52: n Niall Simvastatin Yes Carol 1 tablet M emoria 3-08 Shetty-Samma in the l 03:52: n [facility] [place] Vitamin C Yes Carol 1 tablet Mem oria 3-08 Shetty-Samma l 03:52: n Niall Zyrtec Yes Carol 1 capsule Memor ia Allergy 3-08 Shetty-Samma as needed l 03:52: n Niall MiraLax Yes Carol Unknown Memori a 3-08 Shetty-Samma l 03:52: n Niall Accu-Chek Yes Carol use as Memor ia Vivi Plus 3-08 Shetty-Samma directed l 03:52: n Niall Plavix 2017-0 Yes Carol 1 tablet Memori a 3-08 Shetty-Samma l 03:52: n [place] Krystyna 2017-0 Yes Carol 1 tablet Memoria Aspirin 3-08 Shetty-Samma l 03:52: n [place] 24 Simvastatin 2017-0 Yes Carol 1 tablet M emoria 3-08 Shetty-Samma in the l 03:52: n evening [place] 24 Vitamin C 2017-0 Yes Carol 1 tablet Mem oria 3-08 Shetty-Samma l 03:52: n Niall Zyrtec 0 Yes Carol 1 capsule Memor ia Allergy 3-08 Shetty-Samma as needed l 03:52: n [place] MiraLax 2016-0 Yes Carol Unknown Memori a 3-08 Shetty-Samma l 03:52: n [place] 0 Yes Carol 1 tablet Memoria 1-05 Shetty-Samma as needed l 00:00: n [place] 00 [place] 0 Yes Carol 1 tablet Memoria 1-05 Shetty-Samma as needed l 00:00: n Niall Metformin 2017-0 Yes Nedal Edgar 1 tablet [facility] HCl 1-04 with meals l 00:00: Niall 00 Lasix 2017-0 Yes Nedal Edgar 1 tablet Mem oria 1-04 l 00:00: Niall 00 Lasix 2017-0 Yes Carol 1 tablet Memoria 1-04 Shetty-Samma l 00:00: n Niall Metformin 2017-0 Yes Carol 1 tablet Mem oria HCl 1-04 Shetty-Samma with meals l 00:00: n [place] 00 Lasix 2017-0 Yes Nedal Edgar 1 tablet Mem oria 1-04 l 00:00: [place] 00 Metformin 2017-0 Yes Nedal Edgar 1 tablet Memoria HCl 1-04 with meals l 00:00: [place] Lasix 2017-0 Yes Carol 1 tablet Memoria 1-04 Shetty-Samma l 00:00: n Niall Metformin 2017-0 Yes Carol 1 tablet Mem oria HCl 1-04 Shetty-Samma with meals l 00:00: n Niall Azithromyci 2016-1 Yes Carol 2 tablets Memoria n 2-30 Shetty-Samma on the l 00:00: n first day, Niall 00 then 1 tablet daily for 4 days Cheratussin 2015-02 Yes Carol 5 ml Memor ia AC 2-30 Shetty-Samma l 00:00: n Azithromyci 2015-1 Yes Carol 2 tablets Memoria n 2-30 Shetty-Samma on the l 00:00: n first day, then 1 tablet daily for 4 days Cheratussin 2015-02 Yes Carol 5 ml Memor ia AC 2-30 Shetty-Samma l 00:00: n Tizanidine 2015-1 Yes Carol 1 tablet Me moria HCl 0-17 Shetty-Samma as needed l 00:00: n Tizanidine 2015-1 Yes Carol 1 tablet Me moria HCl 0-17 Shetty-Samma as needed l 00:00: n Amoxicillin 2015-0 Yes Carol 1 capsule Memoria 9-30 Shetty-Samma l 00:00: n Amoxicillin 2015-0 Yes Carol 1 capsule Memoria 9-30 Shetty-Samma l 00:00: n Alendronate 2015-0 Yes Carol 1 tablet M emoria Sodium 9-26 Shetty-Samma l 00:00: n Alendronate 2015-0 Yes Carol 1 tablet M emoria Sodium 9-26 Shetty-Samma l 00:00: n Amoxicillin 2015-0 Yes Carol 1 tablet M emoria 5-11 Shetty-Samma l 00:00: n Amoxicillin 2015-0 Yes Carol 1 tablet M emoria 5-11 Shetty-Samma l 00:00: n Nitroglycer 2015-0 Yes Nedal Edgar as M emoria in 4-13 directed l 00:00: Nitroglycer 2015-0 Yes Carol as Memor ia in 4-13 Shetty-Samma directed l 00:00: n Nitroglycer 2015-0 Yes Nedal Edgar as M emoria in 4-13 directed l 00:00: Nitroglycer 2015-0 Yes Carol as Memor ia in 4-13 Shetty-Samma directed l 00:00: n [place] 00 Zyrtec Yes Carol 1 capsule Memor ia Allergy 2-06 Shetty-Samma as needed l 04:33: n [place] 47 Omeprazole Yes Carol 1 capsule M emoria 2-06 Shetty-Samma l 04:33: n [place] 47 Zyrtec Yes Carol 1 capsule Memor ia Allergy 2-06 Shetty-Samma as needed l 04:33: n [place] 47 Omeprazole Yes Carol 1 capsule M emoria 2-06 Shetty-Samma l 04:33: n [place] 47 Amoxicillin 2014-02 Yes Carol 1 capsule Memoria 2-11 Shetty-Samma l 00:00: n Niall 00 Amoxicillin 2014-02 Yes Carol 1 capsule Memoria 2-11 Shetty-Samma l 00:00: n Niall 00 NovoLog 2014-02 No Jimmy 15 units Mem oria Flexpen 1-11 Kerns l 03:55: Niall 44 Levemir 2014-02 No Jimmy INJECT 36 Me moria Flexpen 1-11 Kerns UNITS l 03:55: DAILY AT [place] 44 BEDTIME NovoLog 2014-02 No Jimmy 15 units Mem oria Flexpen 1-11 Kerns l 03:55: [place] 44 Levemir 2014-02 No Jimmy INJECT 36 Me moria Flexpen 1-11 Kerns UNITS l 03:55: DAILY AT [place] 44 BEDTIME Novolin 2014-02 Yes Carol 50 units Memor ia 70/30 1-10 Shetty-Samma breakfast l 00:00: n and 30 [place] 00 units with dinner Novolin 2014-02 Yes Carol 50 units Memor ia 70/30 1-10 Shetty-Samma breakfast l 00:00: n and 30 Niall 00 units with dinner Melatonin 2014-02 Yes Nedal Edgar 1 tablet Memoria 1-05 at bedtime l 00:00: as needed Niall 00 with food Melatonin 2014-02 Yes Carol 1 tablet Mem oria 1-05 Shetty-Samma at bedtime l 00:00: n as needed [place] 00 with food Melatonin 2014-02 Yes Nedal Edgar 1 tablet Memoria 1-05 at bedtime l 00:00: as needed Niall with food Melatonin 2014-02 Yes Carol 1 tablet Mem oria 1-05 Shetty-Samma at bedtime l 00:00: n as needed with food Amoxicillin 2014-02 Yes Carol 1 tablet M emoria 1-02 Shetty-Samma l 00:00: n Amoxicillin 2014-02 Yes Carol 1 tablet M emoria 1-02 Shetty-Samma l 00:00: n ProAir HFA 2014-02 Yes Nedal Edgar 2 puffs as Memoria 0-14 needed l 00:00: ProAir HFA 2014-02 Yes Carol 2 puffs as Memoria 0-14 Shetty-Samma needed l 00:00: n ProAir HFA 2014-02 Yes Nedal Edgar 2 puffs as Memoria 0-14 needed l 00:00: ProAir HFA 2014-02 Yes Carol 2 puffs as Memoria 0-14 Shetty-Samma needed l 00:00: n Flonase 2014-02 Yes Nedal Edgar 1 spray in Memoria 0-08 each l 00:00: nostril Flonase 2014-02 Yes Carol 1 spray in Mem oria 0-08 Shetty-Samma each l 00:00: n nostril Flonase 2014-02 Yes Nedal Edgar 1 spray in Memoria 0-08 each l 00:00: nostril Flonase 2014-02 Yes Carol 1 spray in Mem oria 0-08 Shetty-Samma each l 00:00: n nostril Omeprazole 2014-0 Yes Carol 1 capsule M emoria 9-11 Shetty-Samma l 02:48: n Niall Omeprazole 2014-0 Yes Carol 1 capsule M emoria 9-11 Shetty-Samma l 02:48: n Niall Lisinopril 2014-0 Yes Carol 1 tablet Me moria 8-20 Shetty-Samma l 00:00: n [place] 00 Lisinopril 2014-0 Yes Carol 1 tablet Me moria 8-20 Shetty-Samma l 00:00: n Niall Levemir 2015-0 Yes Carol INJECT 36 Alfredo renetta Flexpen 7-28 Shetty-Samma UNITS l 00:00: n DAILY AT BEDTIME Levemir Yes Carol INJECT 36 Alfredo renetta Flexpen 7-28 Shetty-Samma UNITS l 00:00: n DAILY AT BEDTIME Actonel Yes Carol 1 tablet Memor ia 7-22 Shetty-Samma l 00:00: n Actonel Yes Carol 1 tablet Memor ia 7-22 Shetty-Samma l 00:00: n Yes Nedal Edgar as Memoria Support-Bra 5-19 directed l ce 00:00: Yes Carol as Memoria Support-Bra 5-19 Shetty-Samma directed l ce 00:00: n Yes Nedal Edgar as Memoria Support-Bra 5-19 directed l ce 00:00: Yes Carol as Memoria Support-Bra 5-19 Sehtty-Samma directed l ce 00:00: n Farxiga 0 Yes Carol 1 tablet Memor ia 5-14 Shetty-Samma l 00:00: n Farxiga 0 Yes Carol 1 tablet Memor ia 5-14 Shetty-Samma l 00:00: n Valium 0 Yes Nedal Edgar 1 tablet Me moria 4-21 as needed l 00:00: Valium 0 Yes Carol 1 tablet Memori a 4-21 Shetty-Samma as needed l 00:00: n Valium 0 Yes Nedal Edgar 1 tablet Me moria 4-21 as needed l 00:00: Valium 0 Yes Carol 1 tablet Memori a 4-21 Shetty-Samma as needed l 00:00: n Levemir 0 Yes Carol INJECT 30 Alfredo renetta Flexpen 2-12 Shetty-Samma UNITS l 03:51: n DAILY AT BEDTIME Zocor 0 Yes Carol 1 tablet Memoria 2-12 Shetty-Samma in the l 03:51: n evening Persantine Yes Carol as Memori a 2-12 Shetty-Samma directed l 03:51: n [place] 03 Lotrel Yes Carol 1 capsule Memor ia 2-12 Shetty-Samma l 03:51: n Levemir Yes Carol INJECT 30 Alfredo [...] Mem oria 2-09 Shetty-Samma l 00:00: n [place] 00 Lansoprazol No Carol 1 tablet M emoria e 2-09 Shetty-Samma on the l 00:00: n tongue and Niall 00 allow to dissolve before a meal MetFORMIN No Carol 2 tablets Me moria HCl ER 2-09 Shetty-Samma with l 00:00: n evening Niall 00 meal Omeprazole Yes Carol 1 capsule M emoria 2-09 Shetty-Samma l 00:00: n Niall 00 Lisinopril No Carol 1 tablet Me moria 2-09 Shetty-Samma l 00:00: n Niall 00 Hydrochloro Yes Carol 1 tablet M emoria thiazide 2-09 Shetty-Samma l 00:00: n [place] 00 Tradjenta Yes Carol 1 tablet Mem oria 2-09 Shetty-Samma l 00:00: n Niall 00 Lansoprazol 0 No Carol 1 tablet M emoria e 2-09 Shetty-Samma on the l 00:00: n tongue and [place] 00 allow to dissolve before a meal MetFORMIN 0 No Carol 2 tablets Me moria HCl ER 2-09 Shetty-Samma with l 00:00: n evening meal Omeprazole 2014-0 Yes Carol 1 capsule M emoria 2-09 Shetty-Samma l 00:00: n Niall 00 Lisinopril 2014-0 No Carol 1 tablet Me moria 2-09 Shetty-Samma l 00:00: n Niall 00 Hydrochloro 2014-0 Yes Carol 1 tablet M emoria thiazide 2-09 Shetty-Samma l 00:00: n Hydrocodone 2013-1 Yes Carol 1 tablet M emoria -Acetaminop 2-30 Shetty-Samma as needed l hen 00:00: n Niall 00 Hydrocodone 2013-1 Yes Carol 1 tablet M emoria -Acetaminop 2-30 Shetty-Samma as needed l hen 00:00: n [place] 00 Invokana 2013- Yes Carol 1 tablet Alfredo renetta 1-03 Shetty-Samma l 00:00: n [place] 00 Invokana 2013- Yes Carol 1 tablet Alfredo renetta 1-03 Shetty-Samma l 00:00: n Niall 00 Flonase 2013-02 Yes Carol 1 spray in Mem oria 0-13 Shetty-Samma each l 00:00: n nostril [place] 00 Flonase 2013-1 Yes Carol 1 spray in Mem oria 0-13 Shetty-Samma each l 00:00: n nostril [place] 00 Vitamin D3 2013-0 Yes Carol as Memori a 7-16 Shetty-Samma directed l 00:00: n Niall 00 Vitamin D3 2013-0 Yes Carol as Memori a 7-16 Shetty-Samma directed l 00:00: n [place] 00 Albuterol 2013-0 Yes Carol 2 puffs as M emoria Sulfate HFA 6-06 Shetty-Samma needed l 00:00: n Niall 00 Albuterol 2013-0 Yes Carol 2 puffs as M emoria Sulfate HFA 6-06 Shetty-Samma needed l 00:00: n [place] 00 Immunizations Ordered Immunization Filled Immunization Date Status Commen ts Source Name Name Adrian COVID-19 Moderna COVID-19 2021-09-02 Completed Vaccine Vaccine 00:00:00 Pfizer COVID-19 Vaccine Pfizer COVID-19 2020-04-20 Completed Vaccine 00:00:00 Pfizer COVID-19 Vaccine Pfizer COVID-19 2020-03-23 Completed Vaccine 00:00:00 Vital Signs Vital Name Observation Time Observation Value Comments Source Weight 2018-02-09 14:45:00 [facility] Height 2018-02-09 14:45:00 [facility] [place] Respitory Rate 2018-02-09 14:45:00 [facility] [place] Diastolic (mm Hg) 2018-02-09 14:45:00 Mem orial [place] Systolic (mm Hg) 2018-02-09 14:45:00 Alfredo rial Niall Temperature Oral (F) 2018-02-09 14:45:00 97.6 F [facility] [place] Heart Rate 2018-02-09 14:45:00 [facility] Weight 2018-01-25 15:00:00 [facility] Height 2018-01-25 15:00:00 [facility] [place] Respitory Rate 2018-01-25 15:00:00 Mem[facility] [place] Diastolic (mm Hg) 2018-01-25 15:00:00 Mem [facility] Niall Systolic (mm Hg) 2018-01-25 15:00:00 Alfredo rial Niall Temperature Oral (F) 2018-01-25 15:00:00 97.8 F [facility] [place] Heart Rate 2018-01-25 15:00:00 [facility] Weight 2017-11-09 19:00:00 [facility] Height 2017-11-09 19:00:00 [facility] Respitory Rate 2017-11-09 19:00:00 [facility] [place] Diastolic (mm Hg) 2017-11-09 19:00:00 Mem [facility] [place] Systolic (mm Hg) 2017-11-09 19:00:00 Alfredo rial [place] Temperature Oral (F) 2017-11-09 19:00:00 97.3 F [facility] [place] Heart Rate 2017-11-09 19:00:00 [facility] Weight 2017-10-26 21:00:00 [facility] Height 2017-10-26 21:00:00 [facility] [place] Respitory Rate 2017-10-26 21:00:00 [facility] [place] Diastolic (mm Hg) 2017-10-26 21:00:00 Mem orial [place] Systolic (mm Hg) 2017-10-26 21:00:00 Alfredo rial [place] Temperature Oral (F) 2017-10-26 21:00:00 98.0 F [facility] [place] Heart Rate 2017-10-26 21:00:00 [facility] Weight 2017-05-12 14:30:00 [facility] [place] Systolic (mm Hg) 2017-05-12 14:30:00 Alfredo rial Nial[facility] Respitory Rate 2017-05-12 14:30:00 [facility] Heart Rate 2017-05-12 14:30:00 [facility] Temperature Oral (F) 2017-05-12 14:30:00 97.5 F [facility] [place] Diastolic (mm Hg) 2017-05-12 14:30:00 Mem orial [facility] Weight 2017-04-06 21:45:00 [facility] Systolic (mm Hg) 2017-04-06 21:45:00 Alfredo rial Nial[place] Respitory Rate 2017-04-06 21:45:00 [facility] [place] Heart Rate 2017-04-06 21:45:00 [facility] [place] Temperature Oral (F) 2017-04-06 21:45:00 97.6 F [facility] Diastolic (mm Hg) 2017-04-06 21:45:00 Mem orial [place] Weight 2017-03-04 18:00:00 [facility] [place] Systolic (mm Hg) 2017-03-04 18:00:00 Alfredo rial Nial[place] Respitory Rate 2017-03-04 18:00:00 [facility] [place] Heart Rate 2017-03-04 18:00:00 [facility] [place] Temperature Oral (F) 2017-03-04 18:00:00 97.8 F [facility] [place] Diastolic (mm Hg) 2017-03-04 18:00:00 Mem [facility] Niall Weight 2017-02-23 19:00:00 [facility] [place] Systolic (mm Hg) 2017-02-23 19:00:00 Alfredo rial [place] Respitory Rate 2017-02-23 19:00:00 [facility] Heart Rate 2017-02-23 19:00:00 [facility] Temperature Oral (F) 2017-02-23 19:00:00 97.5 F [facility] [place] Diastolic (mm Hg) 2017-02-23 19:00:00 Mem o[facility] Weight 2017-02-17 15:30:00 [facility] [place] Systolic (mm Hg) 2017-02-17 15:30:00 Alfredo rial [place] Respitory Rate 2017-02-17 15:30:00 [facility] [place] Heart Rate 2017-02-17 15:30:00 [facility] Temperature Oral (F) 2017-02-17 15:30:00 97.9 F [facility] [place] Diastolic (mm Hg) 2017-02-17 15:30:00 Mem orial [place] Weight 2017-02-09 18:30:00 [facility] [place] Systolic (mm Hg) 2017-02-09 18:30:00 Alfredo rial [place] Respitory Rate 2017-02-09 18:30:00 [facility] Heart Rate 2017-02-09 18:30:00 [facility] Temperature Oral (F) 2017-02-09 18:30:00 97.9 F [facility] [place] Diastolic (mm Hg) 2017-02-09 18:30:00 Mem o[facility] Weight 2017-01-28 15:00:00 [facility] Systolic (mm Hg) 2017-01-28 15:00:00 Alfredo rial [place] Respitory Rate 2017-01-28 15:00:00 [facility] Heart Rate 2017-01-28 15:00:00 [facility] [place] Temperature Oral (F) 2017-01-28 15:00:00 97.6 F [facility] [place] Diastolic (mm Hg) 2017-01-28 15:00:00 Mem orial [place] Weight 2016-09-02 20:45:00 [facility] Systolic (mm Hg) 2016-09-02 20:45:00 Alfredo rial [place] Respitory Rate 2016-09-02 20:45:00 [facility] Heart Rate 2016-09-02 20:45:00 [facility] Temperature Oral (F) 2016-09-02 20:45:00 97.7 F [facility] Diastolic (mm Hg) 2016-09-02 20:45:00 Mem orial [place] Weight 2016-03-04 19:00:00 [facility] Systolic (mm Hg) 2016-03-04 19:00:00 Alfredo rial [place] Respitory Rate 2016-03-04 19:00:00 [facility] [place] Heart Rate 2016-03-04 19:00:00 [facility] [place] Temperature Oral (F) 2016-03-04 19:00:00 96.0 F [facility] [place] Diastolic (mm Hg) 2016-03-04 19:00:00 Mem orial [place] Weight 2016-02-26 19:00:00 [facility] Systolic (mm Hg) 2016-02-26 19:00:00 Alfredo rial [place] Respitory Rate 2016-02-26 19:00:00 [facility] [place] Heart Rate 2016-02-26 19:00:00 [facility] [place] Temperature Oral (F) 2016-02-26 19:00:00 96.5 F [facility] [place] Diastolic (mm Hg) 2016-02-26 19:00:00 Mem orial [place] Weight 2016-02-21 14:30:00 [facility] [place] Systolic (mm Hg) 2016-02-21 14:30:00 Alfredo rial Nial[facility] Respitory Rate 2016-02-21 14:30:00 [facility] [place] Heart Rate 2016-02-21 14:30:00 [facility] Temperature Oral (F) 2016-02-21 14:30:00 96.2 F [facility] Diastolic (mm Hg) 2016-02-21 14:30:00 Mem orial [place] Weight 2015-12-23 15:30:00 [facility] Systolic (mm Hg) 2015-12-23 15:30:00 Alfredo rial [facility] Respitory Rate 2015-12-23 15:30:00 [facility] [place] Heart Rate 2015-12-23 15:30:00 [facility] [place] Temperature Oral (F) 2015-12-23 15:30:00 98.6 F [facility] Diastolic (mm Hg) 2015-12-23 15:30:00 Mem orial [place] Weight 2015-12-09 16:00:00 [facility] Systolic (mm Hg) 2015-12-09 16:00:00 Alfredo rial [place] Respitory Rate 2015-12-09 16:00:00 [facility] [place] Heart Rate 2015-12-09 16:00:00 [facility] [place] Temperature Oral (F) 2015-12-09 16:00:00 98.6 F [facility] [place] Diastolic (mm Hg) 2015-12-09 16:00:00 Mem [facility] Weight 2015-11-18 13:30:00 [facility] [place] Systolic (mm Hg) 2015-11-18 13:30:00 Alfredo rial [facility] Respitory Rate 2015-11-18 13:30:00 [facility] Heart Rate 2015-11-18 13:30:00 [facility] Temperature Oral (F) 2015-11-18 13:30:00 95.8 F [facility] [place] Diastolic (mm Hg) 2015-11-18 13:30:00 Mem [facility] Weight 2015-10-14 13:30:00 [facility] [place] Systolic (mm Hg) 2015-10-14 13:30:00 Alfredo rial [place] Respitory Rate 2015-10-14 13:30:00 [facility] Heart Rate 2015-10-14 13:30:00 [facility] [place] Temperature Oral (F) 2015-10-14 13:30:00 98.6 F [facility] Diastolic (mm Hg) 2015-10-14 13:30:00 Mem orial [place] Weight 2015-09-10 15:30:00 [facility] Systolic (mm Hg) 2015-09-10 15:30:00 Alfredo rial [place] Respitory Rate 2015-09-10 15:30:00 [facility] [place] Heart Rate 2015-09-10 15:30:00 [facility] Temperature Oral (F) 2015-09-10 15:30:00 96.0 F [facility] [place] Diastolic (mm Hg) 2015-09-10 15:30:00 Mem orial [facility] Weight 2015-08-01 15:45:00 [facility] [place] Systolic (mm Hg) 2015-08-01 15:45:00 Alfredo rial N[facility] Respitory Rate 2015-08-01 15:45:00 [facility] [place] Heart Rate 2015-08-01 15:45:00 [facility] Temperature Oral (F) 2015-08-01 15:45:00 96.5 F [facility] Diastolic (mm Hg) 2015-08-01 15:45:00 Mem o[facility] [place] Weight 2015-06-05 19:45:00 [facility] Systolic (mm Hg) 2015-06-05 19:45:00 Alfredo rial [facility] Respitory Rate 2015-06-05 19:45:00 [facility] [place] Heart Rate 2015-06-05 19:45:00 [facility] [place] Temperature Oral (F) 2015-06-05 19:45:00 97.9 F [facility] [place] Diastolic (mm Hg) 2015-06-05 19:45:00 Mem [facility] Weight 2015-05-29 18:15:00 [facility] [place] Respitory Rate 2015-05-29 18:15:00 [facility] [place] Heart Rate 2015-05-29 18:15:00 [facility] Temperature Oral (F) 2015-05-29 18:15:00 97.9 F [facility] Weight 2015 19:45:00 [facility] Systolic (mm Hg) 2015 19:45:00 Alfredo rial [facility] Respitory Rate 2015 19:45:00 [facility] [place] Heart Rate 2015 19:45:00 [facility] [place] Temperature Oral (F) 2015 19:45:00 97.2 F [facility] Diastolic (mm Hg) 2015 19:45:00 [facility] Weight 2014-12-27 20:30:00 [facility] [place] Systolic (mm Hg) 2014-12-27 20:30:00 Alfredo rial [place] Respitory Rate 2014-12-27 20:30:00 [facility] Heart Rate 2014-12-27 20:30:00 [facility] [place] Temperature Oral (F) 2014-12-27 20:30:00 97.7 F [facility] Diastolic (mm Hg) 2014-12-27 20:30:00 [facility] Weight 2014-10-30 18:45:00 [facility] [place] Systolic (mm Hg) 2014-10-30 18:45:00 Alfredo rial [facility] Respitory Rate 2014-10-30 18:45:00 [facility] [place] Heart Rate 2014-10-30 18:45:00 [facility] [place] Temperature Oral (F) 2014-10-30 18:45:00 97.2 F [facility] Diastolic (mm Hg) 2014-10-30 18:45:00 [facility] Height 2014-08-21 13:40:00 152.4 cm [facility] [place] Weight 2014-08-21 13:40:00 [facility] [place] BMI Calculated 2014-08-21 13:40:00 [facility] [place] Weight 2014-04-02 14:30:00 [facility] [place] Systolic (mm Hg) 2014-04-02 14:30:00 Alfredo michelle [facility] Respitory Rate 2014-04-02 14:30:00 Shamar al [place] Heart Rate 2014-04-02 14:30:00 [facility] Temperature Oral (F) 2014-04-02 14:30:00 97.3 F [facility] [place] Diastolic (mm Hg) 2014-04-02 14:30:00 Mem [facility] Procedures This patient has no known procedures. Encounters Start End Encounter Admission Attending Care Care Encounter Source Date/Time Date/Time Type Type Clinicians Facility Department ID 2021-10-23 2021-10-23 Outpatient FOG_Burke_R AOSM AOSM [id number] Majo 00:00:00 00:00:00 Nicole [id number] [facility] 2021-10-23 2021-10-23 Outpatient Naeem AOSHARAD AOSM [id number] 00:00:00 00:00:00 Piotr Moreland [id number] 2021-10-23 2021-10-23 Outpatient Naeem AOSHARAD AOSM [id number] 00:00:00 00:00:00 Piotr L [id number] 2021-09-02 2021-09-02 Outpatient FOG_Burke_R AOSM AOSM [id number] Majo 00:00:00 00:00:00 Nicole [id number] [facility] 2021-09-02 2021-09-02 Outpatient GCCOVIDV GCCOVIDV [id number] GCCOVID 00:00:00 00:00:00 V 2020-08-29 2020-08-29 Inpatient [facility] HCACL [id number] [facility] 13:24:00 15:52:00 an, 74 [facility] 2020-08-28 2020-08-29 Outpatient [facility] HCACL [id number] [facility] 08:12:00 13:24:00 an, 53 [facility] [facility] 2020-04-20 2020-04-20 Outpatient GCCOVIDV GCCOVIDV [id number] GCCOVID 00:00:00 00:00:00 V 2020-03-23 2020-03-23 Outpatient GCCOVIDV GCCOVIDV [id number] GCCOVID 00:00:00 00:00:00 V 2018-02-09 2018-02-09 Outpatient [facility] [place] [id number] eClinic 09:45:00 09:45:00 [facility] Primary alWork s Primary Care - Care - [facility] Office Office 2018-02-07 2018-02-07 Outpatient DO NOT DO NOT USE [id number] eClinic 08:59:00 08:59:00 USE CLS CLS Juan Manuel A alWo rks Juan Manuel A 2018-02-01 2018-02-01 Outpatient [facility] [place] [id number] eClinic 13:45:00 13:45:00 [facility] Primary alWork s Primary Care - Care - [facility] Office Office 2018-01-26 2018-01-26 Outpatient [facility] [place] [id number] eClinic 14:53:00 14:53:00 [facility] Primary alWork s Primary Care - Care - [facility] Office Office 2018-01-25 2018-01-25 Outpatient [facility] [place] [id number] eClinic 10:00:00 10:00:00 [facility] Primary alWork s Primary Care - Care - [facility] Office Office 2017-11-09 2017-11-09 Outpatient [facility] [place] [id number] eClinic 13:00:00 13:00:00 [facility] Primary alWork s Primary Care - Care - [facility] Office Office 2017-10-26 2017-10-26 Outpatient [facility] [place] [id number] eClinic 15:00:00 15:00:00 [facility] Primary alWork s Primary Care - Care - [facility] Office Office 2017-10-21 2017-10-21 Outpatient [facility] [place] [id number] eClinic 16:58:00 16:58:00 [facility] Primary alWork s Primary Care - Care - [facility] Office Office 2017-10-15 2017-10-15 Outpatient [facility] [place] [id number] eClinic 08:34:00 08:34:00 [facility] Primary alWork s Primary Care - Care - [facility] Office Office 2017-10-13 2017-10-13 Outpatient [facility] [place] [id number] eClinic 11:14:00 11:14:00 [facility] Primary alWork s Primary Care - Care - [facility] Office Office 2017-09-08 2017-09-08 Outpatient DO NOT DO NOT USE [id number] eClinic 13:39:00 13:39:00 USE - CLS - CLS - Juan Manuel alWorks - [place] 2017-08-11 2017-08-11 Outpatient [facility] [place] [id number] eClinic 08:50:00 08:50:00 [facility] Primary alWork s Primary Care - Care - [facility] Office Office 2017-07-23 2017-07-23 Outpatient [facility] [place] [id number] eClinic 10:13:00 10:13:00 [facility] Primary alWork s Primary Care - Care - [facility] Office Office 2017-07-14 2017-07-14 Outpatient [facility] [place] [id number] eClinic 08:33:00 08:33:00 [facility] Primary alWork s Primary Care - Care - [facility] Office Office 2017-07-08 2017-07-08 Outpatient [facility] [place] [id number] eClinic 14:17:00 14:17:00 [facility] Primary alWork s Primary Care - Care - [facility] Office Office 2017-07-08 2017-07-08 Outpatient [facility] [place] [id number] eClinic 09:12:00 09:12:00 [facility] Primary alWork s Primary Care - Care - [facility] Office Office 2017-05-12 2017-05-12 Outpatient [facility] [place] [id number] eClinic 09:30:00 09:30:00 [facility] Primary alWork s Primary Care - Care - [facility] Office Office 2017-04-19 2017-04-19 Outpatient [facility] [place] [id number] eClinic 11:05:00 11:05:00 [facility] Primary alWork s Primary Care - Care - [facility] Office Office 2017-04-16 2017-04-16 Outpatient [facility] [place] [id number] eClinic 09:18:00 09:18:00 [facility] Primary alWork s Primary Care - Care - [facility] Office Office 2017-04-09 2017-04-09 Outpatient [facility] [place] [id number] eClinic 11:16:00 11:16:00 Acevedo Specialties al Works Specialti - es - Endocrinolo Endocrino [facility] 2017-04-06 2017-04-06 Outpatient [facility] [place] [id number] eClinic 15:45:00 15:45:00 [facility] Primary alWork s Primary Care - Care - [facility] Office Office 2017-03-19 2017-03-19 Outpatient [facility] [place] [id number] eClinic 15:42:00 15:42:00 [facility] Primary alWork s Primary Care Care 2017-03-15 2017-03-15 Outpatient [facility] [place] [id number] eClinic 09:17:00 09:17:00 [facility]Work s Primary Care Care 2017-03-04 2017-03-04 Outpatient [facility] [place] [id number] eClinic 13:00:00 13:00:00 [facility] Primary [facility]Work s Primary Care Care 2017-03-02 2017-03-02 Outpatient [facility] [place] [id number] eClinic 08:26:00 08:26:00 [facility] Primary [facility]Work s Primary Care Care 2017-02-23 2017-02-23 Outpatient [facility] [place] [id number] eClinic 14:00:00 14:00:00 [facility] Primary [facility]Work s Primary Care Care 2017-02-17 2017-02-17 Outpatient [facility] [place] [id number] eClinic 11:27:00 11:27:00 [facility] Primary alWork s Primary Care Care 2017-02-17 2017-02-17 Outpatient [facility] [place] [id number] eClinic 10:30:00 10:30:00 [facility] Primary alWork s Primary Care Care 2017-02-16 2017-02-16 Outpatient [facility] [place] [id number] eClinic 11:45:00 11:45:00 [facility] Primary alWork s Primary Care Care 2017-02-09 2017-02-09 Outpatient [facility] [place] [id number] eClinic 13:30:00 13:30:00 [facility] Primary alWork s Primary Care - Care - [facility] Office Office 2017-01-28 2017-01-28 Outpatient DO NOT DO NOT USE [id number] eClinic 10:53:00 10:53:00 USE - CLS - CLS - Juan Manuel alWorks - Juan Manuel C C 2017-01-28 2017-01-28 Outpatient [facility] [place] [id number] eClinic 10:00:00 10:00:00 [facility] Primary alWork s Primary Care - Care - [facility] Office Office 2017-01-26 2017-01-26 Outpatient [facility] [place] [id number] eClinic 09:20:00 09:20:00 [facility] Primary alWork s Primary Care Care 2016-12-31 2016-12-31 Outpatient [facility] [place] [id number] eClinic 12:42:00 12:42:00 [facility] Primary [facility]Work s Primary Care Care 2016-09-08 2016-09-08 Outpatient DO NOT DO NOT USE [id number] eClinic 16:13:00 16:13:00 USE - CLS - CLS - Juan Manuel alWorks - Juan Manuel C C 2016-09-02 2016-09-02 Outpatient DO NOT DO NOT USE [id number] eClinic 21:10:00 21:10:00 USE - CLS - CLS - Juan Manuel alWorks - Juan Manuel C C 2016-09-02 2016-09-02 Outpatient DO NOT DO NOT USE [id number] eClinic 14:45:00 14:45:00 USE - CLS - CLS - Juan Manuel alWorks - Juan Manuel C C 2016-08-31 2016-08-31 Outpatient DO NOT DO NOT USE [id number] eClinic 15:55:00 15:55:00 USE - CLS - CLS - Juan Manuel alWorks - Juan Manuel C C 2016-07-06 2016-07-06 Outpatient CLS - Juan Manuel CLS - Juan Manuel C 7 [id number] eClinic 12:55:00 12:55:00 C alWork s 2016-06-26 2016-06-26 Outpatient CLS - Juan Manuel CLS - Juan Manuel C 7 [id number] eClinic 14:20:00 14:20:00 C alWork s 2016-06-23 2016-06-23 Outpatient CLS - Juan Manuel CLS - Juan Manuel C 7 [id number] eClinic 12:26:00 12:26:00 C alWork s 2016-03-10 2016-03-10 Refills nullFlavo [place] 0ff3e 8da-d Memoria 16:08:00 16:08:00 r Specialties 5u4-3l2r-2 l ea9-8s6015 Mi nn 3b29db 2016-03-10 2016-03-10 Refills nullFlavo [place] 0ff3e 8da-d Memoria 16:08:00 16:08:00 r Specialties 3u4-4e5j-5 l ea9-3l2176 Mi nn 3b29db 2016-03-10 2016-03-10 Outpatient [facility] [place] [id number] eClinic 11:08:00 11:08:00 [facility] Specialties al Works Specialti es 2016-03-04 2016-03-04 1 wk f/u nullFlavo [place] 8abf 4182-3 Memoria 19:00:00 19:00:00 results r Specialties 7t7-3683-j l 215-6bdbc7 Mi nn d50c50 2016-03-04 2016-03-04 1 wk f/u nullFlavo [place] 8abf 4182-3 Memoria 19:00:00 19:00:00 results r Specialties 9l9-8160-d l 215-6bdbc7 Mi nn d50c50 2016-03-04 2016-03-04 1 wk f/u nullFlavo [place] ac9f d8e7-6 Memoria 18:00:00 18:00:00 results r Specialties 7l2-14i8-n l 1fd-e99c73 Mi nn 5fccc8 2016-03-04 2016-03-04 1 wk f/u nullFlavo [place] ac9f d8e7-6 Memoria 18:00:00 18:00:00 results r Specialties 8t5-04a0-q l 1fd-e99c73 Mi nn 5fccc8 2016-03-04 2016-03-04 Outpatient [facility] [place] [id number] eClinic 13:00:00 13:00:00 [facility] Specialties al Works Specialti es 2016-02-26 2016-02-26 Swollen nullFlavo [place] 488e9 c3f-5 Memoria 19:00:00 19:00:00 left foot r Specialties 64a-41d5 -8 l since bf9-870ddc Mi nn Wednesday fa6981 2016-02-26 2016-02-26 Swollen nullFlavo [place] 73c61 a1f-d Memoria 19:00:00 19:00:00 left foot r Specialties x54-4zx7 -b l since 4o7-30702b Mi nn Wednesday 90g610 2016-02-26 2016-02-26 Swollen nullFlavo [place] 73c61 a1f-d Memoria 19:00:00 19:00:00 left foot r Specialties h66-1gz8 -b l since 2h1-27605u Mi nn Wednesday 80s858 2016-02-26 2016-02-26 Swollen nullFlavo [place] 488e9 c3f-5 Memoria 19:00:00 19:00:00 left foot r Specialties 64a-41d5 -8 l since bf9-870ddc Mi nn Wednesday jw3944 2016-02-26 2016-02-26 Swollen nullFlavo [place] 2f27c 1b9-2 Memoria 18:00:00 18:00:00 left foot r Specialties 1u4-583p -a l since b71-5lp261 Mi nn Wednesday 432e6f 2016-02-26 2016-02-26 Swollen nullFlavo [place] 2f27c 1b9-2 Memoria 18:00:00 18:00:00 left foot r Specialties 9c2-019b -a l since e91-7kl834 Mi nn Wednesday 432e6f 2016-02-26 2016-02-26 Outpatient [facility] [place] [id number] eClinic 13:00:00 13:00:00 [facility] Specialties al Works Specialti es 2016-02-25 2016-02-25 urgent nullFlavo [place] 07b61 eef-6 Memoria 20:51:00 20:51:00 appt/ r Specialties 6af-4a3e-b l swollen ca3-f1f1c7 Mi nn ankle 26710l 2016-02-25 2016-02-25 urgent nullFlavo [place] 6eb22 9d3-3 Memoria 20:51:00 20:51:00 appt/ r Specialties ed6-46ac-b l swollen 400-5bf2e6 Mi nn ankle 9e94ed 2016-02-25 2016-02-25 urgent nullFlavo [place] eb85c 28f-7 Memoria 20:51:00 20:51:00 appt/ r Specialties 24a-4a16-8 l swollen 4t0-7r4j05 Mi nn ankle 0p590x 2016-02-25 2016-02-25 urgent nullFlavo [place] 07b61 eef-6 Memoria 20:51:00 20:51:00 appt/ r Specialties 6af-4a3e-b l swollen ca3-f1f1c7 Mi nn ankle 41667r 2016-02-25 2016-02-25 urgent nullFlavo [place] eb85c 28f-7 Memoria 20:51:00 20:51:00 appt/ r Specialties 24a-4a16-8 l swollen 2a0-5a3c30 Mi nn ankle 6c828a 2016-02-25 2016-02-25 urgent nullFlavo [place] 6eb22 9d3-3 Memoria 20:51:00 20:51:00 appt/ r Specialties ed6-46ac-b l swollen 400-5bf2e6 Mi nn ankle 9e94ed 2016-02-25 2016-02-25 urgent nullFlavo [place] f17c3 3cd-b Memoria 19:51:00 19:51:00 appt/ r Specialties q05-8720-7 l swollen 3ba-04ddf8 Mi nn ankle 2bb4ae 2016-02-25 2016-02-25 urgent nullFlavo [place] f17c3 3cd-b Memoria 19:51:00 19:51:00 appt/ r Specialties w43-4444-6 l swollen 3ba-04ddf8 Mi nn ankle 2bb4ae 2016-02-25 2016-02-25 Outpatient [facility] [place] [id number] eClinic 14:51:00 14:51:00 [facility] Specialties al Works Specialti es 2016-02-21 2016-02-21 5 month nullFlavo [place] 39436 799-f Memoria 14:30:00 14:30:00 follow up r Specialties aa0-468f -b l 4y5-5di320 Mi nn o3o880 2016-02-21 2016-02-21 5 month nullFlavo [place] 66de6 d21-d Memoria 14:30:00 14:30:00 follow up r Specialties 776-42d0 -a l af7-12cb67 Mi nn 834ec7 2016-02-21 2016-02-21 5 month nullFlavo [place] 6415f 993-3 Memoria 14:30:00 14:30:00 follow up r Specialties 8d1-18sy -9 l 7o2-9m7970 Mi nn 4k6506 2016-02-21 2016-02-21 5 month nullFlavo [place] 57351 097-c Memoria 14:30:00 14:30:00 follow up r Specialties a14-153s -b l 491-790e12 Mi nn 7d17b0 2016-02-21 2016-02-21 5 month nullFlavo [place] 70194 799-f Memoria 14:30:00 14:30:00 follow up r Specialties aa0-468f -b l 1r6-6oh727 Mi nn u5b840 2016-02-21 2016-02-21 5 month nullFlavo [place] 66de6 d21-d Memoria 14:30:00 14:30:00 follow up r Specialties 776-42d0 -a l af7-12cb67 Mi nn 834ec7 2016-02-21 2016-02-21 5 month nullFlavo [place] 75233 097-c Memoria 14:30:00 14:30:00 follow up r Specialties w21-945s -b l 491-790e12 Mi nn 7d17b0 2016-02-21 2016-02-21 5 month nullFlavo [place] 6415f 993-3 Memoria 14:30:00 14:30:00 follow up r Specialties 5l0-85rv -9 l 3e2-3l2498 Mi nn 3u9446 2016-02-21 2016-02-21 5 month nullFlavo [place] dfd91 c2b-a Memoria 13:30:00 13:30:00 follow up r Specialties 9ea-4d76 -b l 240-9ob348 [facility] nn g30073 2016-02-21 2016-02-21 5 month nullFlavo [place] dfd91 c2b-a Memoria 13:30:00 13:30:00 follow up r Specialties 9ea-4d76 -b l 240-7ys352 [facility] nn [id number] 2016-02-21 2016-02-21 Outpatient [facility] [place] [id number] eClinic 08:30:00 08:30:00 [facility] Specialties al Works Specialti es 2016-02-12 2016-02-12 Pt came by nullFlavo [place] 52 1h81du-0 Memoria 14:59:00 14:59:00 the office r Specialties 01e-47b 5-b l 661-48237g Mi nn bcade9 2016-02-12 2016-02-12 Pt came by nullFlavo [place] b8 552b33-4 Memoria 14:59:00 14:59:00 the office r Specialties 65b-409 4-a l 3ed-ceb1fd Mi nn 45d4f6 2016-02-12 2016-02-12 Pt came by nullFlavo [place] 94 3nj0nq-8 Memoria 14:59:00 14:59:00 the office r Specialties 086-4bb 4-a l 3o5-x56sl8 Mi nn bs838p 2016-02-12 2016-02-12 Pt came by nullFlavo [place] 70 l91o28-r Memoria 14:59:00 14:59:00 the office r Specialties 29e-482 d-a l dd3-9ge784 Mi nn 2f3ce1 2016-02-12 2016-02-12 Pt came by nullFlavo [place] 57 7u5z8b-6 Memoria 14:59:00 14:59:00 the office r Specialties 1w1-100 4-a l 84c-d66295 Mi nn 39e97b 2016-02-12 2016-02-12 Pt came by nullFlavo [place] b8 958n52-6 Memoria 14:59:00 14:59:00 the office r Specialties 65b-409 4-a l 3ed-ceb1fd Mi nn 45d4f6 2016-02-12 2016-02-12 Pt came by nullFlavo [place] 52 9s94am-9 Memoria 14:59:00 14:59:00 the office r Specialties 01e-47b 5-b l 661-28447w Mi nn bcade9 2016-02-12 2016-02-12 Pt came by nullFlavo [place] 94 4xd7dp-3 Memoria 14:59:00 14:59:00 the office r Specialties 086-4bb 4-a l 6p0-q75ek0 Mi nn ql349k 2016-02-12 2016-02-12 Pt came by nullFlavo [place] 57 6t8t4e-6 Memoria 14:59:00 14:59:00 the office r Specialties 6s7-896 4-a l 84c-a78812 Mi nn 39e97b 2016-02-12 2016-02-12 Pt came by nullFlavo [place] 70 w08h50-z Memoria 14:59:00 14:59:00 the office r Specialties 29e-482 d-a l dd3-2ve355 Mi nn 2f3ce1 2016-02-12 2016-02-12 Pt came by nullFlavo [place] 68 65nu23-6 Memoria 13:59:00 13:59:00 the office r Specialties 43e-451 4-8 l w40-z906dx Mi nn 23acdc 2016-02-12 2016-02-12 Pt came by nullFlavo [place] 68 93gq68-8 Memoria 13:59:00 13:59:00 the office r Specialties 43e-451 4-8 l q42-v453my Mi nn 23acdc 2016-02-12 2016-02-12 Outpatient [facility] [place] [id number] eClinic 08:59:00 08:59:00 [facility] 2016-01-14 2016-01-14 Refill nullFlavo [place] 32997 c3f-8 Memoria 17:20:00 17:20:00 r Specialties fa0-479f-9 l 701-a810bc Mi nn 491f02 2016-01-14 2016-01-14 Refill nullFlavo [place] a1977 517-5 Memoria 17:20:00 17:20:00 r Specialties e47-46zv-w l 9ad-891593 Mi nn 9437e9 2016-01-14 2016-01-14 Refill nullFlavo [place] 4967b 5be-9 Memoria 17:20:00 17:20:00 r Specialties 303-4891-a l 140-14u700 Mi nn 596028 9581-11-22 2016-01-14 Refill nullFlavo [place] fc31f e21-5 Memoria 17:20:00 17:20:00 r Specialties 743-4e3b-8 l bff-qj923e [facility] nn j15299 2016-01-14 2016-01-14 Refill nullFlavo [place] a4751 08a-3 Memoria 17:20:00 17:20:00 r Specialties 3u2-6x98-4 l n4n-31712o Mi nn a334db 2016-01-14 2016-01-14 Refill nullFlavo [place] a9874 a1e-6 Memoria 17:20:00 17:20:00 r Specialties aaa-48c3-9 l 884-nx133k Mi nn a24f36 2016-01-14 2016-01-14 Refill nullFlavo [place] 4967b 5be-9 Memoria 17:20:00 17:20:00 r Specialties 303-4891-a l 140-71h266 Mi nn 007291 4708-11-22 2016-01-14 Refill nullFlavo [place] a1977 517-5 Memoria 17:20:00 17:20:00 r Specialties t76-13gd-m l 9ad-996221 Mi nn 9437e9 2016-01-14 2016-01-14 Refill nullFlavo [place] 20118 c3f-8 Memoria 17:20:00 17:20:00 r Specialties fa0-479f-9 l 701-a810bc Mi nn 491f02 2016-01-14 2016-01-14 Refill nullFlavo [place] fc31f e21-5 Memoria 17:20:00 17:20:00 r Specialties 743-4e3b-8 l bff-ka208m [facility] nn [id number] 2016-01-14 2016-01-14 Refill nullFlavo [place] a9874 a1e-6 Memoria 17:20:00 17:20:00 r Specialties aaa-48c3-9 l 884-wv655t [facility] nn a24f36 2016-01-14 2016-01-14 Refill nullFlavo [place] a4751 08a-3 Memoria 17:20:00 17:20:00 r Specialties 0v1-1v27-7 l o2v-59776q [facility] nn a334db 2016-01-14 2016-01-14 Refill nullFlavo [place] 937c1 0c5-2 Memoria 16:20:00 16:20:00 r Specialties 04a-4fa3-9 l 06e-14ce47 [facility] nn 097101 8357-11-22 2016-01-14 Refill nullFlavo [place] 937c1 0c5-2 Memoria 16:20:00 16:20:00 r Specialties 04a-4fa3-9 l 06e-14ce47 [facility] nn 836949 1790-11-22 2016-01-14 Outpatient [facility] [place] [id number] eClinic 11:20:00 11:20:00 [facility] Specialties al Works Specialti es 2016-01-06 2016-01-06 Sooner apt nullFlavo [place] b0 5c582f-9 Memoria 19:16:00 19:16:00 r Specialties u2a-9055-b l d22-k9197m Mi nn wk0660 2016-01-06 2016-01-06 Sooner apt nullFlavo [place] b7 318yw2-a Memoria 19:16:00 19:16:00 r Specialties 7z9-19t0-2 l k21-421d22 Mi nn b94be6 2016-01-06 2016-01-06 Sooner apt nullFlavo [place] f5 sh9rd7-7 Memoria 19:16:00 19:16:00 r Specialties nathan-450c-b l 436-6dd2a3 Mi nn f496e3 2016-01-06 2016-01-06 Sooner apt nullFlavo [place] c9 9285k4-8 Memoria 19:16:00 19:16:00 r Specialties 050-4961-b l fd7-abf6b7 Mi nn d41d37 2016-01-06 2016-01-06 Sooner apt nullFlavo [place] e2 6k3953-9 Memoria 19:16:00 19:16:00 r Specialties 9s6-31x0-6 l 3m4-5y09h6 Mi nn 705d7d 2016-01-06 2016-01-06 Sooner apt nullFlavo [place] 9b 663y65-9 Memoria 19:16:00 19:16:00 r Specialties 163-4a63-a l 406-4010bb Mi nn 87eaf7 2016-01-06 2016-01-06 Sooner apt nullFlavo [place] 49 f95w82-8 Memoria 19:16:00 19:16:00 r Specialties abc-42ca-9 l 984-608765 Mi nn 460419 3572-11-14 2016-01-06 Sooner apt nullFlavo [place] b7 122xa2-e Memoria 19:16:00 19:16:00 r Specialties 7h1-18n0-7 l u04-205z71 Mi nn b94be6 2016-01-06 2016-01-06 Sooner apt nullFlavo [place] c9 8708g9-6 Memoria 19:16:00 19:16:00 r Specialties 050-4961-b l fd7-abf6b7 Mi nn d41d37 2016-01-06 2016-01-06 Sooner apt nullFlavo [place] f5 uf9ur1-9 Memoria 19:16:00 19:16:00 r Specialties nathan-450c-b l 436-6dd2a3 Mi nn f496e3 2016-01-06 2016-01-06 Sooner apt nullFlavo [place] b0 6h249m-4 Memoria 19:16:00 19:16:00 r Specialties c3u-2025-o l s38-w0587i Mi nn nx2705 2016-01-06 2016-01-06 Sooner apt nullFlavo [place] e2 6s1488-2 Memoria 19:16:00 19:16:00 r Specialties 7o8-19c1-9 l 9o3-3s94l1 Mi nn 705d7d 2016-01-06 2016-01-06 Sooner apt nullFlavo [place] 49 a24h93-7 Memoria 19:16:00 19:16:00 r Specialties abc-42ca-9 l 984-559321 [facility] nn 441220 2567-11-14 2016-01-06 Sooner apt nullFlavo [place] 9b 885x48-2 Memoria 19:16:00 19:16:00 r Specialties 163-4a63-a l 406-4010bb [facility] nn 87eaf7 2016-01-06 2016-01-06 Sooner apt nullFlavo [place] 51 2412t9-5 Memoria 18:16:00 18:16:00 r Specialties 461-4e9f-8 l 6be-55i689 Mi nn i99690 2016-01-06 2016-01-06 Sooner apt nullFlavo [place] 51 5492e4-9 Memoria 18:16:00 18:16:00 r Specialties 461-4e9f-8 l 6be-55q334 [facility] nn c00751 2016-01-06 2016-01-06 Outpatient [facility] [place] [id number] eClinic 13:16:00 13:16:00 [facility] Specialties al Works Specialti es 2015-12-23 2015-12-23 Accu-Chek nullFlavo [place] 568 91w96-1 Memoria 17:33:00 17:33:00 Vivi r Specialties 5t3-477d-w l Strip 4q9-4f5x35 Mi nn Refill [id number] Request - refilled 2015-12-23 2015-12-23 Accu-Chek nullFlavo [place] b61 85511-l Memoria 17:33:00 17:33:00 Vivi r Specialties 97a-4479-8 l Strip fba-0906c9 Mi nn Refill [id number] Request - refilled 2015-12-23 2015-12-23 Accu-Chek nullFlavo [place] c14 fi571-2 Memoria 17:33:00 17:33:00 Vivi r Specialties 3g4-06cu-t l Strip 3a8-284356 Mi nn Refill [id number] Request - refilled 2015-12-23 2015-12-23 Accu-Chek nullFlavo [place] 69a 79632-r Memoria 17:33:00 17:33:00 Vivi r Specialties r44-48xk-f l Strip j1g-s77246 Mi nn Refill 813ea1 Request - refilled 2015-12-23 2015-12-23 Accu-Chek nullFlavo [place] c6d 09j7t-7 Memoria 17:33:00 17:33:00 Vivi r Specialties 33c-49c2-a l Strip afe-e67d98 Mi nn Refill e2c91a Request - refilled 2015-12-23 2015-12-23 Accu-Chek nullFlavo [place] ec2 th49t-8 Memoria 17:33:00 17:33:00 Vivi r Specialties 56e-4220-b l Strip t30-7ro38j Mi nn Refill ba23e7 Request - refilled 2015-12-23 2015-12-23 Accu-Chek nullFlavo [place] 69e n1165-2 Memoria 17:33:00 17:33:00 Vivi r Specialties t9p-6op8-f l Strip 7g1-1t439n Mi nn Refill [id number] Request - refilled 2015-12-23 2015-12-23 Accu-Chek nullFlavo [place] d46 517b2-p Memoria 17:33:00 17:33:00 Vivi r Specialties 10e-4b8c-a l Strip c84-d8z3np Mi nn Refill ff3d66 Request - refilled 2015-12-23 2015-12-23 Accu-Chek nullFlavo [place] b61 44367-i Memoria 17:33:00 17:33:00 Vivi r Specialties 97a-4479-8 l Strip fba-0906c9 Mi nn Refill [id number] Request - refilled 2015-12-23 2015-12-23 Accu-Chek nullFlavo [place] 69a 65609-d Memoria 17:33:00 17:33:00 Vivi r Specialties w95-29fe-q l Strip r1s-q21291 Mi nn Refill [id number] Request - refilled 2015-12-23 2015-12-23 Accu-Chek nullFlavo [place] c6d 23r5f-6 Memoria 17:33:00 17:33:00 Vivi r Specialties 33c-49c2-a l Strip afe-e67d98 Mi nn Refill e2c91a Request - refilled 2015-12-23 2015-12-23 Accu-Chek nullFlavo [place] c14 wh014-4 Memoria 17:33:00 17:33:00 Vivi r Specialties 7w2-54lv-y l Strip 1x5-506566 Mi nn Refill [id number] Request - refilled 2015-12-23 2015-12-23 Accu-Chek nullFlavo [place] 568 66w50-3 Memoria 17:33:00 17:33:00 Vivi r Specialties 5z3-992y-u l Strip 6t3-3k9s30 Mi nn Refill [id number] Request - refilled 2015-12-23 2015-12-23 Accu-Chek nullFlavo [place] ec2 nm94z-3 Memoria 17:33:00 17:33:00 Vivi r Specialties 56e-4220-b l Strip h68-7vl78o Mi nn Refill ba23e7 Request - refilled 2015-12-23 2015-12-23 Accu-Chek nullFlavo [place] d46 353g8-h Memoria 17:33:00 17:33:00 Vivi r Specialties 10e-4b8c-a l Strip x28-s8r0la Mi nn Refill ff3d66 Request - refilled 2015-12-23 2015-12-23 Accu-Chek nullFlavo [place] 69e b5771-5 Memoria 17:33:00 17:33:00 Vivi r Specialties f8q-1bo8-e l Strip 1v0-8z672s Mi nn Refill [id number] Request - refilled 2015-12-23 2015-12-23 Accu-Chek nullFlavo [place] 100 qa7b3-4 [facility] 16:33:00 16:33:00 [facility] 78c-4d34-b l Strip 08a-4faa71 Mi nn Refill [id number] Request - refilled 2015-12-23 2015-12-23 Accu-Chek nullFlavo [place] 100 fs0h3-7 [facility] 16:33:00 16:33:00 [facility] 78c-4d34-b l Strip 08a-4faa71 Mi nn Refill [id number] Request - refilled 2015-12-23 2015-12-23 2wk f/u nullFlavo [place] afea7 9f3-b [facility] 15:30:00 15:30:00 r Specialties 909-4e3d-9 l fbe-tq4135 Mi nn [id number] 2015-12-23 2015-12-23 2wk f/u nullFlavo [place] e52a9 b38-1 [facility] 15:30:00 15:30:00 r Specialties ada-4942-b l 9de-d7f9ed Mi nn [id number] 2015-12-23 2015-12-23 2wk f/u nullFlavo [place] e3d7f e37-f [facility] 15:30:00 15:30:00 r Specialties 3w0-02ot-k l 681-o86434 Mi nn [id number] 2015-12-23 2015-12-23 2wk f/u nullFlavo [place] ff394 f2d-b [facility] 15:30:00 15:30:00 r Specialties 414-4fb8-b l o9u-xjh522 Mi nn [id number] 2015-12-23 2015-12-23 2wk f/u nullFlavo [place] 9c141 ea3-f [facility] 15:30:00 15:30:00 r Specialties s07-80l7-t l 2b1-860970 Mi nn [id number] 2015-12-23 2015-12-23 2wk f/u nullFlavo [place] a1ccd 7e7-1 [facility] 15:30:00 15:30:00 r Specialties n21-5137-7 l 85d-5df38b Mi nn [id number] 2015-12-23 2015-12-23 2wk f/u nullFlavo [place] a0c1f 388-d [facility] 15:30:00 15:30:00 r Specialties fa5-4b86-9 l def-sa9793 Mi nn bfbffd 2015-12-23 2015-12-23 2wk f/u nullFlavo [place] 89b45 a53-4 [facility] 15:30:00 15:30:00 r Specialties 72b-4c12-9 l 5bc-6rk856 Mi nn [id number] 2015-12-23 2015-12-23 2wk f/u nullFlavo [place] [address] 47e-8 [facility] 15:30:00 15:30:00 r Specialties 868-4547-b l ccc-977f1c Mi nn [id number] 5658-10-31 2015-12-23 2wk f/u nullFlavo [place] e52a9 b38-1 [facility] 15:30:00 15:30:00 r Specialties ada-4942-b l 9de-d7f9ed Mi nn [id number] 2015-12-23 2015-12-23 2wk f/u nullFlavo [place] ff394 f2d-b [facility] 15:30:00 15:30:00 r Specialties 414-4fb8-b l v5j-bbf290 Mi nn [id number] 2015-12-23 2015-12-23 2wk f/u nullFlavo [place] a0c1f 388-d [facility] 15:30:00 15:30:00 r Specialties fa5-4b86-9 l def-qp9521 Mi nn bfbffd 2015-12-23 2015-12-23 2wk f/u nullFlavo [place] 9c141 ea3-f [facility] 15:30:00 15:30:00 r Specialties o63-65y4-q l 2j0-821040 Mi nn [id number] 2015-12-23 2015-12-23 2wk f/u nullFlavo [place] e3d7f e37-f [facility] 15:30:00 15:30:00 r Specialties 4m6-56ke-o l [id number] Mi nn [id number] 2015-12-23 2015-12-23 2wk f/u nullFlavo [place] afea7 9f3-b [facility] 15:30:00 15:30:00 r Specialties 909-4e3d-9 l fbe-yp9965 Mi nn [id number] 2015-12-23 2015-12-23 2wk f/u nullFlavo [place] a1ccd 7e7-1 [facility] 15:30:00 15:30:00 r Specialties z86-6163-1 l 85d-5df38b Mi nn [id number] 2015-12-23 2015-12-23 2wk f/u nullFlavo [place] [address] 47e-8 [facility] 15:30:00 15:30:00 r Specialties 868-4547-b l ccc-977f1c Mi nn [id number] 6526-10-31 2015-12-23 2wk f/u nullFlavo [place] 89b45 a53-4 [facility] 15:30:00 15:30:00 r Specialties 72b-4c12-9 l 5bc-4lt580 Mi nn 6c6583 2015-12-23 2015-12-23 2wk f/u [facility]Fl[facility] [place] f1f54 949-b [facility] 14:30:00 14:30:00 r Specialties fd1-477e-8 l 611-1cbc1d Mi nn ad7d31 2015-12-23 2015-12-23 2wk f/u [facility]Fl[facility] [place] f1f54 949-b [facility] 14:30:00 14:30:00 r Specialties fd1-477e-8 l 611-1cbc1d Mi nn ad7d31 2015-12-23 2015-12-23 [facility] [place] [id number] eClinic 11:33:00 11:33:00 [facility] 2015-12-23 2015-12-23 [facility] [place] 5854 08 eClinic 09:30:00 09:30:00 [facility] 2015-12-13 2015-12-13 Test nullFl[facility] [place] 3a7fc 199-5 [facility] 00:41:00 00:41:00 results r Specialties 6fa-4741-8 l q26-4z7819 Mi nn 628a99 2015-12-13 2015-12-13 Test nullFl[facility] [place] 5a334 0f7-b Memoria 00:41:00 00:41:00 results r Specialties 929-472f-b l q47-bu236c Mi nn ut1704 2015-12-13 2015-12-13 Test [facility]Fl[facility] [place] c0b71 794-d [facility] 00:41:00 00:41:00 results r Specialties 5h9-5f68-5 l 746-faeb83 Mi nn 64d76d 2015-12-13 2015-12-13 Test nullFl[facility] [place] d5228 91f-4 Memoria 00:41:00 00:41:00 results r Specialties 61b-4a51-b l y14-504915 Mi nn 37e6a2 2015-12-13 2015-12-13 Test [facility]Fl[facility] [place] c41c2 luh-1 [facility] 00:41:00 00:41:00 results r Specialties 339-4dbd-9 l fd8-302580 Mi nn 0cacd3 2015-12-13 2015-12-13 Test [facility]Fl[facility] [place] c79eb 6f2-3 Memoria 00:41:00 00:41:00 results r Specialties v47-3075-9 l cdd-866748 Mi nn 13d7f9 2015-12-13 2015-12-13 Test [facility]Fl[facility] [place] 4e971 383-d Mem[facility] 00:41:00 00:41:00 results r Specialties 640-43ae-a l 5g4-b5l187 Mi nn fb229h 2015-12-13 2015-12-13 Test nullFl[facility] [place] 7b584 411-f Memoria 00:41:00 00:41:00 results r Specialties ddb-4b5a-8 l 280-9d2d63 Mi nn 53b6b8 2015-12-13 2015-12-13 Test nullFl[facility] [place] de116 15d-0 Memoria 00:41:00 00:41:00 results r Specialties 1i6-9202-6 l 53c-ebd4f0 [facility] nn 5bba41 2015-12-13 2015-12-13 Test nullFlavo [place] 8fe69 6dc-9 Memoria 00:41:00 00:41:00 results r Specialties 643-4d5a-9 l 084-824ec4 [facility] nn 21051p 2015-12-13 2015-12-13 Test nullFl[facility] [place] 5a334 0f7-b Memoria 00:41:00 00:41:00 results r Specialties 929-472f-b l b99-sq326t [facility] nn wt7484 2015-12-13 2015-12-13 Test nullFlavo [place] c41c2 luh-1 Memoria 00:41:00 00:41:00 results r Specialties 339-4dbd-9 l fd8-075136 [facility] nn 0cacd3 2015-12-13 2015-12-13 Test nullFlavo [place] c0b71 794-d Memoria 00:41:00 00:41:00 results r Specialties 4c2-4a27-9 l 746-faeb83 [facility] nn 64d76d 2015-12-13 2015-12-13 Test nullFl[facility] [place] 7b584 411-f Memoria 00:41:00 00:41:00 results r Specialties ddb-4b5a-8 l 280-9d2d63 [facility] nn 53b6b8 2015-12-13 2015-12-13 Test nullFlavo [place] c79eb 6f2-3 Memoria 00:41:00 00:41:00 results r Specialties v04-8419-9 l cdd-911926 [facility] nn 13d7f9 2015-12-13 2015-12-13 Test nullFl[facility] [place] d5228 91f-4 Memoria 00:41:00 00:41:00 results r Specialties 61b-4a51-b l j04-643854 [facility] nn 37e6a2 2015-12-13 2015-12-13 Test nullFl[facility] [place] 3a7fc 199-5 Memoria 00:41:00 00:41:00 results r Specialties 6fa-4741-8 l i59-8d6233 Mi nn 628a99 2015-12-13 2015-12-13 Test nullFl[facility] [place] 4e971 383-d Memoria 00:41:00 00:41:00 results r Specialties 640-43ae-a l 0f2-r0m289 Mi nn bf664r 2015-12-13 2015-12-13 Test nullFl[facility] [place] 8fe69 6dc-9 Memoria 00:41:00 00:41:00 results r Specialties 643-4d5a-9 l 084-824ec4 Mi nn 58290z 2015-12-13 2015-12-13 Test nullFl[facility] [place] de116 15d-0 Memoria 00:41:00 00:41:00 results r Specialties 2f8-1073-0 l 53c-ebd4f0 Mi nn 5bba41 2015-12-12 2015-12-12 Test nullFl[facility] [place] d1dc1 ab5-8 [facility]oria 23:41:00 23:41:00 results r Specialties 29d-4657-8 l 27a-48e3d7 Mi nn 03114j 2015-12-12 2015-12-12 Test nullFl[facility] [place] d1dc1 ab5-8 Memoria 23:41:00 23:41:00 results r Specialties 29d-4657-8 l 27a-48e3d7 Mi nn 80946a 2015-12-12 2015-12-12 [facility] [place] [id number] eClinic 18:41:00 18:41:00 [facility] 2015-12-09 2015-12-09 FYI/ [facility] [place] 1c1aa 485-1 [facility] 17:25:00 17:25:00 physical r Specialties dc0-4d47- 8 l therapy 4r5-1ikpk6 Mi nn y9979z 2015-12-09 2015-12-09 FYI/ [facility] [place] 07fb2 07c-6 [facility] 17:25:00 17:25:00 physical r Specialties j9e-266q- 8 l therapy x3p-172h0o Mi nn 6697e8 2015-12-09 2015-12-09 FYI/ [facility] [place] 16f66 943-d Memoria 17:25:00 17:25:00 physical r Specialties 49c-4fb4- 8 l therapy 201-d77dcc Mi nn 0885f2 2015-12-09 2015-12-09 FYI/ [facility] [place] 3668e 3b5-8 Memoria 17:25:00 17:25:00 physical r Specialties erik-4b9e- 8 l therapy 0db-8x8249 Mi nn 5cf24a 2015-12-09 2015-12-09 FYI/ [facility] [place] b5f3f efa-2 Memoria 17:25:00 17:25:00 physical r Specialties z41-9226- 8 l therapy 89c-d1d28f Mi nn 4c4e5f 2015-12-09 2015-12-09 FYI/ [facility] [place] 595f7 626-5 Memoria 17:25:00 17:25:00 physical r Specialties l1f-5r1w- a l therapy ac7-847269 Mi nn 0b5793 2015-12-09 2015-12-09 FYI/ [facility] [place] 248c5 bb0-4 Memoria 17:25:00 17:25:00 physical r Specialties 242-49f4- 9 l therapy 129-1r5643 Mi nn 82p824 2015-12-09 2015-12-09 FYI/ [facility] [place] 2877d 58b-3 Memoria 17:25:00 17:25:00 physical r Specialties dca-4061- 8 l therapy 2b4-1868h6 Mi nn d12df2 2015-12-09 2015-12-09 FYI/ [facility] [place] bcd15 590-1 Memoria 17:25:00 17:25:00 physical r Specialties aad-4d96- a l therapy 539-fa6b8e Mi nn 00bc09 2015-12-09 2015-12-09 FYI/ [facility] [place] bff7f jenifer-7 Memoria 17:25:00 17:25:00 physical r Specialties 4dc-43f7- a l therapy 740-5b6d7a Mi nn d13dea 2015-12-09 2015-12-09 FYI/ [facility] [place] 4a82f 87e-4 Memoria 17:25:00 17:25:00 physical r Specialties fd7-4c4b- b l therapy 83e-df7d94 Mi nn q47638 2015-12-09 2015-12-09 FYI/ [facility] [place] 07fb2 07c-6 Memoria 17:25:00 17:25:00 physical r Specialties o8k-491c- 8 l therapy r7o-627e9b Mi nn 6697e8 2015-12-09 2015-12-09 FYI/ [facility] [place] 595f7 626-5 Memoria 17:25:00 17:25:00 physical r Specialties m9s-6l2n- a l therapy ac7-315847 Mi nn 1i8477 2015-12-09 2015-12-09 FYI/ [facility] [place] 16f66 943-d Memoria 17:25:00 17:25:00 physical r Specialties 49c-4fb4- 8 l therapy 201-d77dcc Mi nn 0885f2 2015-12-09 2015-12-09 FYI/ [facility] [place] 3668e 3b5-8 Memoria 17:25:00 17:25:00 physical r Specialties erik-4b9e- 8 l therapy 0db-9u5330 Mi nn 5cf24a 2015-12-09 2015-12-09 FYI/ [facility] [place] bcd15 590-1 Mem[facility] 17:25:00 17:25:00 physical r Specialties aad-4d96- a l therapy 539-fa6b8e Mi nn 00bc09 2015-12-09 2015-12-09 FYI/ [facility] [place] 248c5 bb0-4 Memoria 17:25:00 17:25:00 physical r Specialties 242-49f4- 9 l therapy 129-0c5476 Mi nn 80s548 2015-12-09 2015-12-09 FYI/ [facility] [place] b5f3f efa-2 Memoria 17:25:00 17:25:00 physical r Specialties r59-9218- 8 l therapy 89c-d1d28f Mi nn 4c4e5f 2015-12-09 2015-12-09 FYI/ [facility] [place] 1c1aa 485-1 Mem[facility] 17:25:00 17:25:00 physical r Specialties dc0-4d47- 8 l therapy 5p0-6mahr0 Mi nn m1999h 2015-12-09 2015-12-09 FYI/ [facility] [place] 2877d 58b-3 Memoria 17:25:00 17:25:00 physical r Specialties dca-4061- 8 l therapy 7f9-9750w5 Mi nn d12df2 2015-12-09 2015-12-09 FYI/ [facility] [place] 4a82f 87e-4 Memoria 17:25:00 17:25:00 physical r Specialties fd7-4c4b- b l therapy 83e-df7d94 Mi nn n12116 2015-12-09 2015-12-09 FYI/ [facility] [place] bff7f jenifer-7 Memoria 17:25:00 17:25:00 physical r Specialties 4dc-43f7- a l therapy 740-5b6d7a Mi nn d13dea 2015-12-09 2015-12-09 Needing [facility] [place] 19f95 9d7-2 Memoria 16:36:00 16:36:00 Orders: r Specialties d59-7r83-y l Mammo & 632-f7ee49 Mi nn Ultra: c70e00 Appt 2015-12-09 2015-12-09 Needing [facility]Fl[facility] [place] 9a53b de4-c [facility]oria 16:36:00 16:36:00 Orders: r Specialties 595-450a-8 l Mammo & 3y3-ew87n9 Mi nn Ultra: 50j014 Appt 2015-12-09 2015-12-09 Needing [facility] [place] ab2ab 7ca-9 Memoria 16:36:00 16:36:00 Orders: r Specialties r01-1032-5 l Mammo & adf-ea13f4 Mi nn Ultra: aeb7ce Appt 2015-12-09 2015-12-09 Needing nullFl[facility] [place] 804c2 a79-a Memoria 16:36:00 16:36:00 Orders: r Specialties 256-4b27-9 l Mammo & 7bc-fbc9c7 Mi nn Ultra: h6064n Appt 2015-12-09 2015-12-09 Needing [facility]Fl[facility] [place] 3ef9c dc1-d Memoria 16:36:00 16:36:00 Orders: r Specialties 746-4a7e-8 l Mammo & 4cb-b556cc Mi nn Ultra: 180489 Appt 2015-12-09 2015-12-09 Needing nullFl[facility] [place] 86fe5 4c6-b Memoria 16:36:00 16:36:00 Orders: r Specialties 0e8-77r3-y l Mammo & fe5-ab28e6 Mi nn Ultra: f8cc6f Appt 2015-12-09 2015-12-09 Needing nullFl[facility] [place] 85c5c e23-e Memoria 16:36:00 16:36:00 Orders: r Specialties 88d-4da9-8 l Mammo & cc9-f74a3e Mi nn Ultra: d9c0ff Appt 2015-12-09 2015-12-09 Needing nullFl[facility] [place] b4124 04c-0 Memoria 16:36:00 16:36:00 Orders: r Specialties eba-4143-8 l Mammo & 4ad-e835ab Mi nn Ultra: 39d9ff Appt 2015-12-09 2015-12-09 Needing nullFl[facility] [place] 790b7 3da-8 [facility]oria 16:36:00 16:36:00 Orders: r Specialties elder assistant-423e-9 l Mammo & 4m3-k28r9l Mi nn Ultra: 983f27 Appt 2015-12-09 2015-12-09 Needing [facility] [place] a12df a76-1 Memoria 16:36:00 16:36:00 Orders: r Specialties edf-48eb-9 l Mammo & 6eb-e8baac Mi nn Ultra: 0731e7 Appt 2015-12-09 2015-12-09 Needing [facility] [place] b0768 e9f-c Memoria 16:36:00 16:36:00 Orders: r Specialties ed9-4978-b l Mammo & 481-u95151 Mi nn Ultra: 534387 Appt 2015-12-09 2015-12-09 Needing [facility] [place] ff94f 22b-6 [facility]oria 16:36:00 16:36:00 Orders: r Specialties 95a-4292-8 l Mammo & w9m-f63v08 Mi nn Ultra: 005715 Appt 2015-12-09 2015-12-09 Needing [facility] [place] e10c3 052-f [facility] 16:36:00 16:36:00 Orders: r Specialties i36-83w5-7 l Mammo & 956-ada8fa Mi nn Ultra: d80ce4 Appt 2015-12-09 2015-12-09 Needing nullFl[facility] [place] 86fe5 4c6-b Memoria 16:36:00 16:36:00 Orders: r Specialties 0q7-37l6-x l Mammo & fe5-ab28e6 Mi nn Ultra: f8cc6f Appt 2015-12-09 2015-12-09 Needing nullFl[facility] [place] ab2ab 7ca-9 Memoria 16:36:00 16:36:00 Orders: r Specialties v01-7978-0 l Mammo & adf-ea13f4 Mi nn Ultra: aeb7ce Appt 2015-12-09 2015-12-09 Needing null[facility] [place] b4124 04c-0 Memoria 16:36:00 16:36:00 Orders: r Specialties eba-4143-8 l Mammo & 4ad-e835ab Mi nn Ultra: 39d9ff Appt 2015-12-09 2015-12-09 Needing nullFl[facility] [place] 804c2 a79-a Memoria 16:36:00 16:36:00 Orders: r Specialties 256-4b27-9 l Mammo & 7bc-fbc9c7 Mi nn Ultra: k2603m Appt 2015-12-09 2015-12-09 Needing [facility] [place] 9a53b de4-c Memoria 16:36:00 16:36:00 Orders: r Specialties 595-450a-8 l Mammo & 8d6-is68u7 Mi nn Ultra: 36k531 Appt 2015-12-09 2015-12-09 Needing [facility] [place] 3ef9c dc1-d Memoria 16:36:00 16:36:00 Orders: r Specialties 746-4a7e-8 l Mammo & 4cb-b556cc Mi nn Ultra: 002054 Appt 2015-12-09 2015-12-09 Needing nullFl[facility] [place] b0768 e9f-c Memoria 16:36:00 16:36:00 Orders: r Specialties ed9-4978-b l Mammo & 481-u33782 Mi nn Ultra: 864219 Appt 2015-12-09 2015-12-09 Needing nullFl[facility] [place] 790b7 3da-8 Memoria 16:36:00 16:36:00 Orders: r Specialties elder assistant-423e-9 l Mammo & 1m8-s33e1y Mi nn Ultra: 983f27 Appt 2015-12-09 2015-12-09 Needing [facility]Fl[facility] [place] 85c5c e23-e Memoria 16:36:00 16:36:00 Orders: r Specialties 88d-4da9-8 l Mammo & cc9-f74a3e Mi nn Ultra: d9c0ff Appt 2015-12-09 2015-12-09 Needing [facility]Fl[facility] [place] 19f95 9d7-2 Memoria 16:36:00 16:36:00 Orders: r Specialties l21-7e89-i l Mammo & 632-f7ee49 Mi nn Ultra: c70e00 Appt 2015-12-09 2015-12-09 Needing [facility]Fl[facility] [place] a12df a76-1 Memoria 16:36:00 16:36:00 Orders: r Specialties edf-48eb-9 l Mammo & 6eb-e8baac Mi nn Ultra: 0731e7 Appt 2015-12-09 2015-12-09 Needing nullFl[facility] [place] e10c3 052-f [facility] 16:36:00 16:36:00 Orders: r Specialties l26-85r3-4 l Mammo & 956-ada8fa Mi nn Ultra: d80ce4 Appt 2015-12-09 2015-12-09 Needing nullFl[facility] [place] ff94f 22b-6 Memoria 16:36:00 16:36:00 Orders: r Specialties 95a-4292-8 l Mammo & w7e-p39y70 Mi nn Ultra: 304136 Appt 2015-12-09 2015-12-09 FYI/ [facility] [place] 14c94 71e-8 Memoria 16:25:00 16:25:00 physical r Specialties 8af-4c50- b l therapy ce8-2966f9 Mi nn d5ff4b 2015-12-09 2015-12-09 FYI/ [facility] [place] 14c94 71e-8 Memoria 16:25:00 16:25:00 physical r Specialties 8af-4c50- b l therapy ce8-2966f9 Mi nn d5ff4b 2015-12-09 2015-12-09 Stomach [facility] [place] f1225 973-6 [facility] 16:00:00 16:00:00 Pain: r Specialties 31c-44b4-9 l Around i81-h06984 Mi nn Waist[place] g9261l 2015-12-09 2015-12-09 Stomach [facility] [place] f705d 538-8 [facility]oria 16:00:00 16:00:00 Pain: r Specialties t04-2u1t-s l Around 8dc-e93adb Mi nn Waistline 9v7321 2015-12-09 2015-12-09 Stomach [facility] [place] d6bfb 8db-e [facility]oria 16:00:00 16:00:00 Pain: r Specialties 16f-4411-b l Around 970-7076a9 Mi nn [place] bf5f2e 2015-12-09 2015-12-09 Stomach [facility] [place] 23f54 elder assistant-3 Memoria 16:00:00 16:00:00 Pain: r Specialties afb-42e0-8 l Around 096-420366 Mi nn [place] e64a11 2015-12-09 2015-12-09 Stomach [facility]Fl[facility] [place] c1db5 a44-e Memoria 16:00:00 16:00:00 Pain: r Specialties p55-2456-o l Around l2z-08dp9o Mi nn [place] 5ab35b 2015-12-09 2015-12-09 Stomach [facility] [place] 24dc4 972-d Memoria 16:00:00 16:00:00 Pain: r Specialties 284-473e-b l Around z1p-86b728 Mi nn [place] bd6a90 2015-12-09 2015-12-09 Stomach [facility]Fl[facility] [place] 10cdc af4-a Memoria 16:00:00 16:00:00 Pain: r Specialties l3j-3773-8 l Around 228-85621b Mi nn [place] 42f4a9 2015-12-09 2015-12-09 Stomach [facility]Fl[facility] [place] bbf2c ea8-e Memoria 16:00:00 16:00:00 Pain: r Specialties o5b-22nl-7 l Around 08a-48584g Mi nn [place] v68280 2015-12-09 2015-12-09 Stomach [facility]Fl[facility] [place] b28bb 704-a Memoria 16:00:00 16:00:00 Pain: r Specialties 789-4fa4-a l Around feb-776083 Mi nn [place] 20428e 2015-12-09 2015-12-09 Stomach [facility]Fl[facility] [place] a8719 f25-f Memoria 16:00:00 16:00:00 Pain: r Specialties s2f-415s-z l Around 152-17e6b2 Mi nn [place] 86e3cd 2015-12-09 2015-12-09 Stomach [facility]Fl[facility] [place] 6aa36 9e4-2 Memoria 16:00:00 16:00:00 Pain: r Specialties 4be-4b67-8 l Around ff0-l5t337 Mi nn [place] a28c77 2015-12-09 2015-12-09 Stomach nullFl[facility] [place] f1f4e 045-a Memoria 16:00:00 16:00:00 Pain: r Specialties 60f-4925-8 l Around f9o-9m6356 Mi nn Waistline 0dce5b 2015-12-09 2015-12-09 Stomach nullFl[facility] [place] e801b f2c-0 Memoria 16:00:00 16:00:00 Pain: r Specialties z26-903t-u l Around 6cd-42cbf4 Mi nn [place] 9b9584 2015-12-09 2015-12-09 Stomach nullFl[facility] [place] 24dc4 972-d Memoria 16:00:00 16:00:00 Pain: r Specialties 284-473e-b l Around n2x-56s115 Mi nn [place] bd6a90 2015-12-09 2015-12-09 Stomach nullFl[facility] [place] d6bfb 8db-e Memoria 16:00:00 16:00:00 Pain: r Specialties 16f-4411-b l Around 970-7076a9 Mi nn [place] bf5f2e 2015-12-09 2015-12-09 Stomach [facility] [place] bbf2c ea8-e Memoria 16:00:00 16:00:00 Pain: r Specialties n4w-96tp-0 l Around 08a-35898f Mi nn [place] q28292 2015-12-09 2015-12-09 Stomach [facility] [place] 23f54 elder assistant-3 Memoria 16:00:00 16:00:00 Pain: r Specialties afb-42e0-8 l Around 096-229513 Mi nn [place] e64a11 2015-12-09 2015-12-09 Stomach nullFl[facility] [place] f705d 538-8 Memoria 16:00:00 16:00:00 Pain: r Specialties q52-2m7l-o l Around 8dc-e93adb Mi nn Waistline 4i4887 2015-12-09 2015-12-09 Stomach [facility]Fl[facility] [place] c1db5 a44-e Memoria 16:00:00 16:00:00 Pain: r Specialties l75-7869-d l Around x3w-99pv0k Mi nn Waist[place] 5ab35b 2015-12-09 2015-12-09 Stomach [facility]Fl[facility] [place] 6aa36 9e4-2 Memoria 16:00:00 16:00:00 Pain: r Specialties 4be-4b67-8 l Around ff0-t2b467 Mi nn [place]ist[place] a28c77 2015-12-09 2015-12-09 Stomach [facility] [place] b28bb 704-a [facility]oria 16:00:00 16:00:00 Pain: r Specialties 789-4fa4-a l Around feb-983089 Mi nn Waistline 61209x 2015-12-09 2015-12-09 Stomach [facility] [place] 10cdc af4-a Memoria 16:00:00 16:00:00 Pain: r Specialties a6v-9263-4 l Around 228-95173o Mi nn Waist[place] 42f4a9 2015-12-09 2015-12-09 Stomach [facility]Fl[facility] [place] f1225 973-6 Memoria 16:00:00 16:00:00 Pain: r Specialties 31c-44b4-9 l Around z58-r40933 Mi nn Waist[place] u8811z 2015-12-09 2015-12-09 Stomach [facility]Fl[facility] [place] a8719 f25-f [facility] 16:00:00 16:00:00 Pain: r Specialties x3x-725k-f l Around 152-17e6b2 Mi nn [place] 86e3cd 2015-12-09 2015-12-09 Stomach nullFl[facility] [place] e801b f2c-0 Memoria 16:00:00 16:00:00 Pain: r Specialties x52-666t-j l Around 6cd-42cbf4 Mi nn Waist[place] 7n0714 2015-12-09 2015-12-09 Stomach nullFl[facility] [place] f1f4e 045-a Memoria 16:00:00 16:00:00 Pain: r Specialties 60f-4925-8 l Around z1l-5x6664 Mi nn Waistline 0dce5b 2015-12-09 2015-12-09 Needing nullFlavo [place] 47fa4 9d0-2 Memoria 15:36:00 15:36:00 Orders: r Specialties c84-5410-4 l Mammo & 6o3-368e6d Mi nn Ultra: 2fbff3 Appt 2015-12-09 2015-12-09 Needing nullFlavo [place] 47fa4 9d0-2 Memoria 15:36:00 15:36:00 Orders: r Specialties w87-5043-7 l Mammo & 9m4-726g5w Mi nn Ultra: 2fbff3 Appt 2015-12-09 2015-12-09 Stomach nullFl[facility] [place] 0b353 388-8 Memoria 15:00:00 15:00:00 Pain: r Specialties n26-359a-4 l Around f94-1zn2k8 Mi nn [place] 686166 4976-10-17 2015-12-09 Stomach nullFl[facility] [place] 0b353 388-8 Memoria 15:00:00 15:00:00 Pain: r Specialties x16-367t-1 l Around x17-3ri2c2 Mi Waistline 745829 2621-10-17 2015-12-09 Outpatient [facility] [place] 5854 64 eClinic 11:25:00 11:25:00 [facility] es 2015-12-09 2015-12-09 [facility] [place] 5853 97 eClinic 10:36:00 10:36:00 [facility] es 2015-12-09 2015-12-09 Out[facility] [place] 5851 20 eClinic 10:00:00 10:00:00 [facility] Specialti es 2015-11-25 2015-11-25 Novolin nullFlavo [place] ac425 81b-8 Memoria 20:39:00 20:39:00 70/30(Reli r Specialties 3eb-481 3-9 l on) Vial ec4-16ec1d Herm junaid Refill [id number] Request - refilled 2015-11-25 2015-11-25 Novolin [facility]Fl[facility] [place] [address] 1f9-f Memoria 20:39:00 20:39:00 70/30(Reli r Specialties 586-4cc f-a l on) Vial w98-xe0x61 Herm junaid Refill [id number] Request - refilled 2015-11-25 2015-11-25 Novolin [facility]Fl[facility] [place] 4dd8d f29-0 Memoria 20:39:00 20:39:00 70/30(Reli r Specialties 29b-40f 9-9 l on) Vial 8ad-1w926s Herm junaid Refill [id number] Request - refilled 2015-11-25 2015-11-25 Novolin [facility]Fl[facility] [place] 5e59a 48b-9 Memoria 20:39:00 20:39:00 70/30(Reli r Specialties d0v-090 0-8 l on) Vial 05a-82faac Herm junaid Refill c72e6b Request - refilled 2015-11-25 2015-11-25 Novolin [facility]Fl[facility] [place] 6aa9a adc-2 Memoria 20:39:00 20:39:00 70/30(Reli r Specialties q2x-14j 7-b l on) Vial y7n-37c863 Herm junaid Refill [id number] Request - refilled 2015-11-25 2015-11-25 Novolin [facility] [place] b4d91 f83-c Memoria 20:39:00 20:39:00 70/30(Reli r Specialties 952-47e 6-8 l on) Vial 1ec-389fba Herm junaid Refill 1a25d2 Request - refilled 2015-11-25 2015-11-25 Novolin [facility] [place] fcf62 89f-8 Memoria 20:39:00 20:39:00 70/30(Reli r Specialties ec8-4f4 7-a l on) Vial 80b-05ece5 Herm junaid Refill 04c6ea Request - refilled 2015-11-25 2015-11-25 Novolin [facility] [place] c2b2d d82-f Memoria 20:39:00 20:39:00 70/30(Reli r Specialties 5i8-319 8-a l on) Vial 167-11w036 Herm junaid Refill [id number] Request - refilled 2015-11-25 2015-11-25 Novolin [facility]Fl[facility] [place] 6cbb3 e73-f Memoria 20:39:00 20:39:00 70/30(Reli r Specialties c7x-26j b-b l on) Vial i70-2j9i42 Herm junaid Refill c9ee00 Request - refilled 2015-11-25 2015-11-25 Novolin [facility]Fl[facility] [place] [address] 437-f Memoria 20:39:00 20:39:00 70/30(Reli r [employer] b57-457 2-b l on) Vial 045-e7eee1 Herm junaid Refill 51ebf1 Request - refilled 2015-11-25 2015-11-25 Novolin [facility]Fl[facility] [place] c4fb1 494-f Memoria 20:39:00 20:39:00 70/30(Reli r Specialties d48-425 d-a l on) Vial [id number] Herm junaid Refill [id number] Request - refilled 2015-11-25 2015-11-25 [facility] null[facility] [place] bc[address] 23e-1 Memoria 20:39:00 20:39:00 70/30(Reli r Specialties bc6-4d7 0-a l on) Vial [id number] Herm junaid Refill [id number] Request - refilled 2015-11-25 2015-11-25 [facility] [place] d10b1 72e-5 Memoria 20:39:00 20:39:00 70/30(Reli r Specialties 79c-4ed d-8 l on) Vial [id number] Herm junaid Refill e4ece0 Request - refilled 2015-11-25 2015-11-25 [facility] [place] b4d91 f83-c Memoria 20:39:00 20:39:00 70/30(Reli r Specialties 952-47e 6-8 l on) Vial [id number] Herm junaid Refill [id number] Request - refilled 2015-11-25 2015-11-25 [facility] [place] 4dd8d f29-0 Memoria 20:39:00 20:39:00 70/30(Reli r Specialties 29b-40f 9-9 l on) Vial [id number] Herm junaid Refill [id number] Request - refilled 2015-11-25 2015-11-25 [facility] [place] c2b2d d82-f Memoria 20:39:00 20:39:00 70/30(Reli r Specialties 7q5-385 8-a l on) Vial [id number] Herm junaid Refill [id number] Request - refilled 2015-11-25 2015-11-25 [facility] [place] 5e59a 48b-9 Memoria 20:39:00 20:39:00 70/30(Reli r Specialties u0a-843 0-8 l on) Vial 05a-82faac Herm junaid Refill [id number] Request - refilled 2015-11-25 2015-11-25 [facility] [place] [address] 1f9-f Memoria 20:39:00 20:39:00 70/30(Reli r Specialties 586-4cc f-a l on) Vial l02-ni8f11 Herm junaid Refill [id number] Request - refilled 2015-11-25 2015-11-25 [facility] [place] 6aa9a adc-2 Memoria 20:39:00 20:39:00 70/30(Reli r Specialties z2m-42o 7-b l on) Vial [id number]-[id number] Herm junaid Refill [id number] Request - refilled 2015-11-25 2015-11-25 [facility] [place] c4fb1 494-f Memoria 20:39:00 20:39:00 70/30(Reli r Specialties d48-425 d-a l on) Vial [id number]-[id number] Herm junaid Refill [id number] Request - refilled 2015-11-25 2015-11-25 [facility] [place] 6cbb3 e73-f Memoria 20:39:00 20:39:00 70/30(Reli r Specialties n4r-31w b-b l on) Vial [id number] Herm junaid Refill c9ee00 Request - refilled 2015-11-25 2015-11-25 [facility] [place] fcf62 89f-8 Memoria 20:39:00 20:39:00 70/30(Reli r Specialties ec8-4f4 7-a l on) Vial 80b-05ece5 Herm junaid Refill 04c6ea Request - refilled 2015-11-25 2015-11-25 [facility] [place] ac425 81b-8 Memoria 20:39:00 20:39:00 70/30(Reli r Specialties 3eb-481 3-9 l on) Vial [id number] Herm junaid Refill [id number] Request - refilled 2015-11-25 2015-11-25 [facility] null[facility] [place] [address] 437-f Memoria 20:39:00 20:39:00 70/30(Reli r Specialties b57-457 2-b l on) Vial [id number] Herm junaid Refill 51ebf1 Request - refilled 2015-11-25 2015-11-25 [facility] null[facility] [place] d10b1 72e-5 Memoria 20:39:00 20:39:00 70/30(Reli r Specialties 79c-4ed d-8 l on) Vial [id number] Herm junaid Refill e4ece0 Request - refilled 2015-11-25 2015-11-25 [facility] nullFlavo [place] bc432 23e-1 Memoria 20:39:00 20:39:00 70/30(Reli r Specialties bc6-4d7 0-a l on) Vial [id number] Herm junaid Refill 77d37e Request - refilled 2015-11-25 2015-11-25 Novolin nullFlavo [place] 3a381 c01-6 Memoria 19:39:00 19:39:00 70/30(Reli r Specialties d50-4e1 2-8 l on) Vial [id number] Herm junaid Refill c63f5d Request - refilled 2015-11-25 2015-11-25 Novolin nullFlavo [place] b9c50 cdc-3 Memoria 19:39:00 19:39:00 70/30(Reli r Specialties 86d-40a d-8 l on) Vial [id number] Herm junaid Refill 86188c Request - refilled 2015-11-25 2015-11-25 Novolin nullFlavo [place] 3a381 c01-6 Memoria 19:39:00 19:39:00 70/30(Reli r Specialties d50-4e1 2-8 l on) Vial [id number] Herm junaid Refill c63f5d Request - refilled 2015-11-25 2015-11-25 Novolin nullFlavo [place] b9c50 [facility]-3 Memoria 19:39:00 19:39:00 70/30(Reli r Specialties 86d-40a d-8 l on) Vial [id number] Herm junaid Refill [id number] Request - refilled 2015-11-25 2015-11-25 Outpatient [facility] [place] 5768 42 [facility]inic 14:39:00 14:39:00 [facility] es 2015-11-22 2015-11-22 Requesting nullFlavo [place] 01 50q6q1-6 Memoria 17:43:00 17:43:00 Antibiotic r Specialties b94-458 2-a l s For 98a-s1o148 Mi nn Tooth Ache 311c73 2015-11-22 2015-11-22 Requesting nullFlavo [place] aa 971fad-4 Memoria 17:43:00 17:43:00 Antibiotic r Specialties 72e-488 c-b l s For [id number] Mi nn Tooth Ache dd32d2 2015-11-22 2015-11-22 Requesting nullFlavo [place] b6 h350m5-4 Mem[facility] 17:43:00 17:43:00 Antibiotic r Specialties 6v0-3e1 1-b l s For [id number] Mi nn Tooth Ache 37430e 2015-11-22 2015-11-22 Requesting nullFlavo [place] c6 25zxx2-s [facility] 17:43:00 17:43:00 Antibiotic r Specialties b18-430 d-8 l s For e81-44l5s6 Mi nn Tooth Ache 8u1502 2015-11-22 2015-11-22 Requesting nullFlavo [place] 3d 5clk7x-z [facility] 17:43:00 17:43:00 Antibiotic r Specialties 2fd-4da c-9 l s For y88-2p33j2 Mi nn Tooth Ache 1sf309 2015-11-22 2015-11-22 Requesting nullFlavo [place] bd 236836-w [facility] 17:43:00 17:43:00 Antibiotic r Specialties e41-401 7-8 l s For 06e-61f7f7 Mi nn Tooth Ache 0c3a4f 2015-11-22 2015-11-22 Requesting nullFlavo [place] 8f 0ps98n-m [facility] 17:43:00 17:43:00 Antibiotic r Specialties 178-468 6-a l s For l47-973x33 Mi nn Tooth Ache il2577 2015-11-22 2015-11-22 Requesting nullFlavo [place] 25 98nj12-1 [facility] 17:43:00 17:43:00 Antibiotic r Specialties l6g-504 a-a l s For a85-vx1dw7 Mi nn Tooth Ache ae5a67 2015-11-22 2015-11-22 Requesting nullFlavo [place] 4f z07s70-b [facility] 17:43:00 17:43:00 Antibiotic r Specialties e97-485 1-a l s For o79-438857 Mi nn Tooth Ache a0bed2 2015-11-22 2015-11-22 Requesting nullFlavo [place] f7 t8n754-2 [facility] 17:43:00 17:43:00 Antibiotic r Specialties j4t-695 a-b l s For ad3-0845c4 Mi nn Tooth Ache 4c9e2d 2015-11-22 2015-11-22 Requesting nullFlavo [place] d3 973e8w-o [facility] 17:43:00 17:43:00 Antibiotic r Specialties 341-421 c-8 l s For 345-ea5b91 Mi nn Tooth Ache 703add 2015-11-22 2015-11-22 Requesting nullFlavo [place] 66 3oh2jm-5 [facility] 17:43:00 17:43:00 Antibiotic r Specialties bf8-425 c-9 l s For 9k8-cud8s7 Mi nn Tooth Ache 6dd6bc 2015-11-22 2015-11-22 Requesting nullFlavo [place] 10 i0om3u-7 [facility] 17:43:00 17:43:00 Antibiotic r Specialties 468-4f8 4-8 l s For 973-914e9a Mi nn Tooth Ache 5a70da 2015-11-22 2015-11-22 Requesting nullFlavo [place] bd 787938-e [facility] 17:43:00 17:43:00 Antibiotic r Specialties e41-401 7-8 l s For 06e-61f7f7 Mi nn Tooth Ache 0c3a4f 2015-11-22 2015-11-22 Requesting nullFlavo [place] b6 p029v0-5 [facility] 17:43:00 17:43:00 Antibiotic r Specialties 4x4-7b7 1-b l s For be4-4739d1 Mi nn Tooth Ache 19920z 2015-11-22 2015-11-22 Requesting nullFlavo [place] 25 29bo54-6 [facility] 17:43:00 17:43:00 Antibiotic r Specialties v2f-501 a-a l s For i08-is1gh9 Mi nn Tooth Ache ae5a67 2015-11-22 2015-11-22 Requesting nullFlavo [place] c6 96weu6-s [facility] 17:43:00 17:43:00 Antibiotic r Specialties b18-430 d-8 l s For q79-43g1x7 Mi nn Tooth Ache 5y3036 2015-11-22 2015-11-22 Requesting nullFlavo [place] aa 971fad-4 [facility] 17:43:00 17:43:00 Antibiotic r Specialties 72e-488 c-b l s For 8h4-3k7a7f Mi nn Tooth Ache dd32d2 2015-11-22 2015-11-22 Requesting nullFlavo [place] 3d 9nsh8l-r [facility] 17:43:00 17:43:00 Antibiotic r Specialties 2fd-4da c-9 l s For b35-8b10h6 Mi nn Tooth Ache 1lh205 2015-11-22 2015-11-22 Requesting nullFlavo [place] d3 963i8z-m [facility] 17:43:00 17:43:00 Antibiotic r Specialties 341-421 c-8 l s For 345-ea5b91 Mi nn Tooth Ache 703add 2015-11-22 2015-11-22 Requesting nullFlavo [place] 4f i69d72-u [facility] 17:43:00 17:43:00 Antibiotic r Specialties e97-485 1-a l s For b01-379921 Mi nn Tooth Ache a0bed2 2015-11-22 2015-11-22 Requesting nullFlavo [place] 8f 8fq20c-l [facility] 17:43:00 17:43:00 Antibiotic r Specialties 178-468 6-a l s For b98-341z70 Mi nn Tooth Ache tw0926 2015-11-22 2015-11-22 Requesting nullFlavo [place] 01 70u5z9-2 [facility] 17:43:00 17:43:00 Antibiotic r Specialties b94-458 2-a l s For 98a-e7y872 Mi nn Tooth Ache 311c73 2015-11-22 2015-11-22 Requesting nullFlavo [place] f7 p3e690-3 [facility] 17:43:00 17:43:00 Antibiotic r Specialties p9n-664 a-b l s For ad3-0845c4 Mi nn Tooth Ache 4c9e2d 2015-11-22 2015-11-22 Requesting nullFlavo [place] 10 c6bu0k-4 [facility] 17:43:00 17:43:00 Antibiotic r Specialties 468-4f8 4-8 l s For 973-914e9a Mi nn Tooth Ache 5a70da 2015-11-22 2015-11-22 Requesting nullFlavo [place] 66 9xo5lw-0 [facility] 17:43:00 17:43:00 Antibiotic r Specialties bf8-425 c-9 l s For 2i3-dih0z0 Mi nn Tooth Ache 6dd6bc 2015-11-22 2015-11-22 Requesting nullFlavo [place] 4c 9q3787-6 [facility] 16:43:00 16:43:00 Antibiotic r Specialties dd3-4be b-9 l s For 0k5-p52l3c Mi nn Tooth Ache f3ddd9 2015-11-22 2015-11-22 Requesting nullFlavo [place] eb 39u86r-z [facility] 16:43:00 16:43:00 Antibiotic r Specialties 676-41c 1-9 l s For 318-723f33 Mi nn Tooth Ache l19187 2015-11-22 2015-11-22 Requesting nullFlavo [place] 5c ddr711-4 Memoria 16:43:00 16:43:00 Antibiotic r Specialties 3a1-6p6 5-9 l s For v65-06la4q Mi nn Tooth Ache 49r207 2015-11-22 2015-11-22 Requesting nullFlavo [place] 4c 8d0023-7 [facility] 16:43:00 16:43:00 Antibiotic r Specialties dd3-4be b-9 l s For 5b5-m24a0p Mi nn Tooth Ache f3ddd9 2015-11-22 2015-11-22 Requesting nullFlavo [place] eb 60r49u-w [facility] 16:43:00 16:43:00 Antibiotic r Specialties 676-41c 1-9 l s For 318-723f33 Mi nn Tooth Ache j16428 2015-11-22 2015-11-22 Requesting nullFlavo [place] 5c gfo673-7 [facility] 16:43:00 16:43:00 Antibiotic r Specialties 0h5-8p8 5-9 l s For c90-41mf5b Mi nn Tooth Ache 38h330 2015-11-22 2015-11-22 Outpatient Clear [place] 5758 00 eClinic 11:43:00 11:43:00 [facility] Works Specialti es 2015-11-18 2015-11-18 4 WK F/U nullFlavo [place] 67f0 209a-a [facility] 14:30:00 14:30:00 r Specialties i46-04a0-4 l 230-9080fc Mi nn 08v291 2015-11-18 2015-11-18 4 WK F/U nullFlavo [place] 796c 8ef6-6 Mem[facility] 14:30:00 14:30:00 r Specialties i8w-7799-8 l 5y9-0u2904 Mi nn ec5a62 2015-11-18 2015-11-18 4 WK F/U nullFlavo [place] 4c62 9ef8-5 [facility] 14:30:00 14:30:00 r Specialties h83-3138-g l de7-af5e79 Mi nn ba99e6 2015-11-18 2015-11-18 4 WK F/U nullFlavo [place] 5520 b96a-4 Memoria 14:30:00 14:30:00 r Specialties u67-8b69-j l 68b-ebaecc Mi nn 6h9100 2015-11-18 2015-11-18 4 WK F/U nullFlavo [place] 24a4 70fe-0 [facility]oria 14:30:00 14:30:00 r Specialties 63f-4d6c-a l 7n7-28i62a Mi nn b6f1ab 2015-11-18 2015-11-18 4 WK F/U nullFlavo [place] 3851 3125-1 [facility]oria 14:30:00 14:30:00 r Specialties 4c6-8la5-8 l 036-124c10 Mi nn 714afa 2015-11-18 2015-11-18 4 WK F/U nullFlavo [place] aebb 7a52-0 Memoria 14:30:00 14:30:00 r Specialties 7m2-0686-h l u3g-03ef33 Mi nn 561164 4559-09-26 2015-11-18 4 WK F/U nullFlavo [place] 42aa 0a59-0 Memoria 14:30:00 14:30:00 r Specialties 564-4ea0-a l fd9-17066v Mi nn 85d1e4 2015-11-18 2015-11-18 4 WK F/U nullFlavo [place] 4ac1 6973-1 Memoria 14:30:00 14:30:00 r Specialties 7cf-4355-b l a4u-07bmwb Mi nn m24081 2015-11-18 2015-11-18 4 WK F/U nullFlavo [place] b4ab 2767-1 Memoria 14:30:00 14:30:00 r Specialties ea5-4cbb-b l 88f-2a7e20 Mi nn a21f4f 2015-11-18 2015-11-18 4 WK F/U nullFlavo [place] 1b6d fdc2-d Mem[facility] 14:30:00 14:30:00 r Specialties 0p6-11m4-7 l 43d-53x689 Mi nn c998d6 2015-11-18 2015-11-18 4 WK F/U nullFlavo [place] 0f5f 29c5-0 [facility] 14:30:00 14:30:00 r Specialties dc3-41aa-8 l d2p-k1bg8v Mi nn wsc067 2015-11-18 2015-11-18 4 WK F/U nullFlavo [place] 1c2d 45f0-b [facility] 14:30:00 14:30:00 r Specialties 1a7-4y3i-y l e85-4ink55 Mi nn 086188 6620-09-26 2015-11-18 4 WK F/U nullFlavo [place] 3851 3125-1 Memoria 14:30:00 14:30:00 r Specialties 5j6-3uq0-9 l 036-124c10 Mi nn 714afa 2015-11-18 2015-11-18 4 WK F/U nullFlavo [place] 4c62 9ef8-5 Memoria 14:30:00 14:30:00 r Specialties g67-0913-s l de7-af5e79 Mi nn ba99e6 2015-11-18 2015-11-18 4 WK F/U nullFlavo [place] 42aa 0a59-0 Memoria 14:30:00 14:30:00 r Specialties 564-4ea0-a l fd9-74041m Mi nn 85d1e4 2015-11-18 2015-11-18 4 WK F/U nullFlavo [place] 5520 b96a-4 Memoria 14:30:00 14:30:00 r Specialties x18-3w28-c l 68b-ebaecc Mi nn 2e6074 2015-11-18 2015-11-18 4 WK F/U nullFlavo [place] 796c 8ef6-6 Memoria 14:30:00 14:30:00 r Specialties s8a-2301-0 l 9r1-2w4250 [facility] nn ec5a62 2015-11-18 2015-11-18 4 WK F/U nullFlavo [place] 24a4 70fe-0 Memoria 14:30:00 14:30:00 r Specialties 63f-4d6c-a l 5n5-98u92l [facility] nn b6f1ab 2015-11-18 2015-11-18 4 WK F/U nullFlavo [place] 1b6d fdc2-d Memoria 14:30:00 14:30:00 r Specialties 0v4-30n5-7 l 43d-90k514 [facility] nn c998d6 2015-11-18 2015-11-18 4 WK F/U nullFlavo [place] 4ac1 6973-1 Memoria 14:30:00 14:30:00 r Specialties 7cf-4355-b l n7v-53imys [facility] nn j24193 2015-11-18 2015-11-18 4 WK F/U nullFlavo [place] aebb 7a52-0 Memoria 14:30:00 14:30:00 r Specialties 4f0-4878-q l n7k-31ic16 [facility] nn 044843 1264-09-26 2015-11-18 4 WK F/U nullFlavo [place] 67f0 209a-a Memoria 14:30:00 14:30:00 r Specialties z10-24y4-9 l 230-9080fc [facility] nn 28p665 2015-11-18 2015-11-18 4 WK F/U nullFlavo [place] b4ab 2767-1 Memoria 14:30:00 14:30:00 r Specialties ea5-4cbb-b l 88f-2a7e20 [facility] nn a21f4f 2015-11-18 2015-11-18 4 WK F/U nullFlavo [place] 1c2d 45f0-b Memoria 14:30:00 14:30:00 r Specialties 1u7-8f8y-t l w93-9dhv59 [facility] nn 490536 4059-09-26 2015-11-18 4 WK F/U nullFlavo [place] 0f5f 29c5-0 Memoria 14:30:00 14:30:00 r Specialties dc3-41aa-8 l b5r-a6yc0x Mi nn vmc937 2015-11-18 2015-11-18 4 WK F/U nullFlavo [place] a2f8 897b-a Memoria 13:30:00 13:30:00 r Specialties 634-4ad3-b l d66-v6iy8c Mi nn 3473eb 2015-11-18 2015-11-18 4 WK F/U nullFlavo [place] c033 cb28-7 Memoria 13:30:00 13:30:00 r Specialties 8f9-32i8-f l s3m-q2r6z6 [facility] b070d9 2015-11-18 2015-11-18 4 WK F/U nullFlavo [place] e1a8 6ca3-5 Memoria 13:30:00 13:30:00 r Specialties 2u4-4iq1-j l d [facility] nn 85o977 2015-11-18 2015-11-18 4 WK F/U nullFlavo [place] 980e 83b4-f Memoria 13:30:00 13:30:00 r Specialties 199-4cae-9 l 93a-fd26e1 [facility] nn f3f2b8 2015-11-18 2015-11-18 4 WK F/U nullFlavo [place] a2f8 897b-a Memoria 13:30:00 13:30:00 r Specialties 634-4ad3-b l j48-m3sg5l [facility] nn 3473eb 2015-11-18 2015-11-18 4 WK F/U nullFlavo [place] e1a8 6ca3-5 [facility] 13:30:00 13:30:00 r Specialties 1y3-1ip8-i l d [facility] 84y629 2015-11-18 2015-11-18 4 WK F/U nullFlavo [place] c033 cb28-7 Memoria 13:30:00 13:30:00 r Specialties 9o9-42z1-r l t4a-m5q6y7 [facility] b070d9 2015-11-18 2015-11-18 4 WK F/U nullFlavo [place] 980e 83b4-f Memoria 13:30:00 13:30:00 r Specialties 199-4cae-9 l 93a-fd26e1 Mi nn f3f2b8 2015-11-18 2015-11-18 Outpatient Clear [place] 5510 06 eClinic 08:30:00 08:30:00 [facility] Works Specialti es 2015-11-11 2015-11-11 [facility]ol[facility](R nullFlavo [place] 56 60n32w-9 Memoria 17:25:00 17:25:00 elion) r Specialties v2z-8h55-u l 70/30 554-03e62b Mi nn Refill [id number] Request - refilled 2015-11-11 2015-11-11 [facility]ol[facility](R nullFlavo [place] d6 qg92y2-4 Memoria 17:25:00 17:25:00 elion) Specialties 724-4d34-a l 70/30 242-s9b871 Mi nn Refill a961b8 Request - refilled 2015-11-11 2015-11-11 [facility]ol[facility](R nullFlavo [place] 37 mw90n9-t Memoria 17:25:00 17:25:00 elion) [facility] 557-4fe1-a l 70/30 0dd-93f76c Mi nn Refill e62a00 Request - refilled 2015-11-11 2015-11-11 [facility]ol[facility](R nullFlavo [place] cf r66s33-5 Memoria 17:25:00 17:25:00 elion) r [facility] ae6-47bd-9 l 70/30 e6z-9p9au0 Mi nn Refill 1150e9 Request - refilled 2015-11-11 2015-11-11 [facility]ol[facility](R nullFlavo [place] 33 p5lqw0-r Memoria 17:25:00 17:25:00 elion) [facility] 3j2-9588-2 l 70/30 059-6q8588 Mi nn Refill dcd93e Request - refilled 2015-11-11 2015-11-11 [facility]ol[facility](R nullFlavo [place] af 0y7i04-6 Memoria 17:25:00 17:25:00 elion) [facility] d26-5718-7 l 70/30 5ba-c13fb8 Mi nn Refill f27f8c Request - refilled 2015-11-11 2015-11-11 [facility](R nullFlavo [place] 35 227j20-v Memoria 17:25:00 17:25:00 elion) r Specialties 2bf-42c3-8 l 70/30 5ec-6adb38 Mi nn Refill 990fc1 Request - refilled 2015-11-11 2015-11-11 [facility]ol[facility](R nullFlavo [place] 93 2903ae-2 Memoria 17:25:00 17:25:00 elion) r Specialties 44f-49f1-b l 70/30 848-835e85 Mi nn Refill [id number] Request - refilled 2015-11-11 2015-11-11 [facility](R nullFlavo [place] 03 5j4f2v-8 Memoria 17:25:00 17:25:00 elion) r Specialties k04-774r-w l 70/30 2s4-kw8620 Mi nn Refill dea1b7 Request - refilled 2015-11-11 2015-11-11 [facility](R nullFlavo [place] af 6b5y68-9 Memoria 17:25:00 17:25:00 elion) r Specialties w01-5490-2 l 70/30 5ba-c13fb8 Mi nn Refill f27f8c Request - refilled 2015-11-11 2015-11-11 [facility](R nullFlavo [place] 37 lx35m9-a Memoria 17:25:00 17:25:00 elion) r Specialties 557-4fe1-a l 70/30 0dd-93f76c Mi nn Refill e62a00 Request - refilled 2015-11-11 2015-11-11 Novoling(R nullFlavo [place] 93 2903ae-2 Memoria 17:25:00 17:25:00 elion) r Specialties 44f-49f1-b l 70/30 848-835e85 Mi nn Refill [id number] Request - refilled 2015-11-11 2015-11-11 [facility]ol[facility](R nullFlavo [place] cf g12w72-1 Memoria 17:25:00 17:25:00 elion) r Specialties ae6-47bd-9 l 70/30 n5r-9h0gu8 Mi nn Refill 1150e9 Request - refilled 2015-11-11 2015-11-11 [facility](R nullFlavo [place] d6 ae51a5-5 Memoria 17:25:00 17:25:00 elion) r Specialties 724-4d34-a l 70/30 242-u8f694 Mi nn Refill a961b8 Request - refilled 2015-11-11 2015-11-11 [facility]oling(R nullFlavo [place] 33 j3qik5-f Memoria 17:25:00 17:25:00 elion) r Specialties 7r7-8899-8 l 70/30 059-1p1962 Mi nn Refill dcd93e Request - refilled 2015-11-11 2015-11-11 [facility]ol[facility](R nullFlavo [place] 83 y0z233-9 Memoria 17:25:00 17:25:00 elion) r Specialties x9y-72m3-0 l 70/30 211-41e6b1 Mi nn Refill f0cc9d Request - refilled 2015-11-11 2015-11-11 [facility](R nullFlavo [place] 03 5c9a6e-3 Memoria 17:25:00 17:25:00 elion) r Specialties f79-441x-k l 70/30 9g9-ku0812 Mi nn Refill dea1b7 Request - refilled 2015-11-11 2015-11-11 [facility]oling(R nullFlavo [place] 35 864q06-l Memoria 17:25:00 17:25:00 elion) r Specialties 2bf-42c3-8 l 70/30 5ec-6adb38 Mi nn Refill 990fc1 Request - refilled 2015-11-11 2015-11-11 Novoling(R nullFlavo [place] 61 79f11w-6 Memoria 17:25:00 17:25:00 elion) r Specialties q24-0if2-c l 70/30 856-6ff7da Mi nn Refill [id number] Request - refilled 2015-11-11 2015-11-11 [facility]oling(R nullFlavo [place] 56 93n56q-1 Memoria 17:25:00 17:25:00 elion) r Specialties v6p-5a80-f l 70/30 554-03e62b Mi nn Refill [id number] Request - refilled 2015-11-11 2015-11-11 [facility]oling(R nullFlavo [place] 61 73u77f-7 Memoria 17:25:00 17:25:00 elion) r Specialties j74-6uh2-l l 70/30 856-6ff7da Mi nn Refill [id number] Request - refilled 2015-11-11 2015-11-11 Novoling(R nullFlavo [place] 9e n58589-6 Memoria 17:25:00 17:25:00 elion) r Specialties 368-4818-b l 70/30 401-587866 Mi nn Refill [id number] Request - refilled 2015-11-11 2015-11-11 Novoling(R nullFlavo [place] 3c 478029-3 Memoria 17:25:00 17:25:00 elion) r Specialties ea8-4418-9 l 70/30 4z8-7m8y7y Mi nn Refill 938db4 Request - refilled 2015-11-11 2015-11-11 Novoling(R nullFlavo [place] 83 m3c011-1 Memoria 17:25:00 17:25:00 elion) r Specialties a3o-38z3-8 l 70/30 211-41e6b1 Mi nn Refill f0cc9d Request - refilled 2015-11-11 2015-11-11 Novoling(R nullFlavo [place] 3c 823649-3 Memoria 17:25:00 17:25:00 elion) r Specialties ea8-4418-9 l 70/30 0p4-1o1a2y Mi nn Refill 938db4 Request - refilled 2015-11-11 2015-11-11 Novoling(R nullFlavo [place] 9e n24717-6 Memoria 17:25:00 17:25:00 elion) r Specialties 368-4818-b l 70/30 401-259284 Mi nn Refill 405d17 Request - refilled 2015-11-11 2015-11-11 Novoling(R nullFlavo [place] a1 -b [facility] 16:25:00 16:25:00 elion) r Specialties u05-763x-y l 70/30 5v3-0c03t3 Mi nn Refill 5c7ff0 Request - refilled 2015-11-11 2015-11-11 Novoling(R nullFlavo [place] 56 29i568-6 Memoria 16:25:00 16:25:00 elion) r Specialties 7k2-5pa1-a l 70/30 dff-k8875c Mi nn Refill 2448c2 Request - refilled 2015-11-11 2015-11-11 Novoling(R nullFlavo [place] 50 39k5k3-0 Memoria 16:25:00 16:25:00 elion) r Specialties 79b-4212-b l 70/30 8i5-g29p59 Mi nn Refill e54fa7 Request - refilled 2015-11-11 2015-11-11 Novoling(R nullFlavo [place] cc 439312-3 Memoria 16:25:00 16:25:00 elion) r Specialties 2a4-9120-6 l 70/30 715-5dd1ea Mi nn Refill 565c4b Request - refilled 2015-11-11 2015-11-11 Novoling(R nullFlavo [place] 80 452964-9 Memoria 16:25:00 16:25:00 elion) r Specialties 949-4186-8 l 70/30 42b-80bbcf Mi nn Refill 23bdcd Request - refilled 2015-11-11 2015-11-11 Novoling(R nullFlavo [place] a1 -b [facility] 16:25:00 16:25:00 elion) r Specialties x53-197h-l l 70/30 9o2-7w40r1 Mi nn Refill 5c7ff0 Request - refilled 2015-11-11 2015-11-11 Novoling(R nullFlavo [place] 50 35e7w6-3 Memoria 16:25:00 16:25:00 elion) r Specialties 79b-4212-b l 70/30 7y6-a95w04 Mi nn Refill e54fa7 Request - refilled 2015-11-11 2015-11-11 Novoling(R nullFlavo [place] cc 759432-9 Memoria 16:25:00 16:25:00 elion) r Specialties 0w2-0703-3 l 70/30 715-5dd1ea Mi nn Refill 565c4b Request - refilled 2015-11-11 2015-11-11 Novoling(R nullFlavo [place] 56 81e337-5 Memoria 16:25:00 16:25:00 elion) r Specialties 9o6-6ko1-u l 70/30 dff-h4033k Mi nn Refill 2448c2 Request - refilled 2015-11-11 2015-11-11 Novoling(R nullFlavo [place] 80 283159-7 Memoria 16:25:00 16:25:00 elion) r Specialties 949-4186-8 l 70/30 42b-80bbcf Mi nn Refill 23bdcd Request - refilled 2015-11-11 2015-11-11 Outpatient [facility] [place] 5678 53 eClinic 11:25:00 11:25:00 [facility] 2015-10-18 2015-10-18 Sooner nullFlavo [place] 20267 3c3-1 Memoria 19:20:00 19:20:00 appt. r Specialties 660-4d77-9 l <LVM09/06> 546-b4f9e7 [facility] 51b46a 2015-10-18 2015-10-18 Sooner nullFlavo [place] f163e c1f-9 Memoria 19:20:00 19:20:00 appt. r Specialties l9p-7nd8-0 l <LVM09/06> fe5-afea02 [facility] ec25ce 2015-10-18 2015-10-18 Sooner nullFlavo [place] 4f5bc 85a-1 Memoria 19:20:00 19:20:00 appt. r Specialties y8z-777g-2 l <LVM09/06> 9q2-2ikcx5 [facility] 9751d5 2015-10-18 2015-10-18 Sooner nullFlavo [place] 4c8ad 1ed-a Memoria 19:20:00 19:20:00 appt. r Specialties 166-473e-8 l <LVM09/06> 2r8-6brwk8 [facility] 3430bf 2015-10-18 2015-10-18 Sooner nullFlavo [place] [address] 2f6-c Memoria 19:20:00 19:20:00 appt. r Specialties 1l3-938k-o l <LVM09/06> eba-155029 [facility] 9651b0 2015-10-18 2015-10-18 Sooner nullFlavo [place] 903ce 9d6-1 Memoria 19:20:00 19:20:00 appt. r Specialties 917-4b9c-9 l <LVM09/06> amanuel-4444e5 [facility] d8c9aa 2015-10-18 2015-10-18 Sooner nullFlavo [place] 98a6a fb1-3 Memoria 19:20:00 19:20:00 appt. r Specialties fb8-44b1-9 l <LVM09/06> 926-95ce51 [facility] 1e9993 2015-10-18 2015-10-18 Sooner nullFlavo [place] 8c04d f4c-7 Memoria 19:20:00 19:20:00 appt. r Specialties m65-01m9-h l <LVM09/06> 097-5b93c3 [facility] 0f30c6 2015-10-18 2015-10-18 Sooner nullFlavo [place] 842ec 8b2-8 Memoria 19:20:00 19:20:00 appt. r Specialties ce8-4a62-a l <LVM09/06> [id number] [facility] d2d8f2 2015-10-18 2015-10-18 Sooner nullFlavo [place] dfd3b 6e6-e Memoria 19:20:00 19:20:00 appt. r Specialties ff6-4cdb-b l <LVM09/06> 6i2-5374l1 [facility] 8sj343 2015-10-18 2015-10-18 Sooner nullFlavo [place] 6d21d fc4-c [facility]oria 19:20:00 19:20:00 appt. r Specialties x12-8ii1-1 l <LVM09/06> 95d-bcbc66 [facility] cdd98b 2015-10-18 2015-10-18 Sooner nullFlavo [place] c40ee 12e-a Memoria 19:20:00 19:20:00 appt. r Specialties 2j7-0200-z l <LVM09/06> eae-0264c5 [facility] tur243 2015-10-18 2015-10-18 Sooner [facility] [place] [address] d24-1 [facility] 19:20:00 19:20:00 appt. r Specialties j54-1fz5-p l <LVM09/06> [id number] [facility] a726cd 2015-10-18 2015-10-18 [facility] [place] dfd3b 6e6-e [facility] 19:20:00 19:20:00 appt. r Specialties ff6-4cdb-b l <LVM09/06> [id number] [facility] [id number] 2015-10-18 2015-10-18 [facility] [place] [id number] 2f6-c [facility] 19:20:00 19:20:00 appt. r Specialties 8m6-243p-r l <LVM09/06> [id number] [facility] [id number] 2015-10-18 2015-10-18 [facility] [place] f163e c1f-9 [facility]oria 19:20:00 19:20:00 appt. r Specialties p3d-9ex1-8 l <LVM09/06> [id number] [facility] ec25ce 2015-10-18 2015-10-18 [facility] [place] 4c8ad 1ed-a [facility] 19:20:00 19:20:00 appt. r Specialties 166-473e-8 l <LVM09/06> [id number] [facility] 3430bf 2015-10-18 2015-10-18 [facility] [place] 903ce 9d6-1 [facility] 19:20:00 19:20:00 appt. r Specialties 917-4b9c-9 l <LVM09/06> [id number] [facility] d8c9aa 2015-10-18 2015-10-18 [facility] [place] [address] 3c3-1 [facility] 19:20:00 19:20:00 appt. r Specialties 660-4d77-9 l <LVM09/06> [id number] [facility] 51b46a 2015-10-18 2015-10-18 [facility] [place] 842ec 8b2-8 [facility] 19:20:00 19:20:00 appt. r Specialties ce8-4a62-a l <LVM09/06> [id number] [facility] d2d8f2 2015-10-18 2015-10-18 [facility] [place] 4f5bc 85a-1 [facility] 19:20:00 19:20:00 appt. r Specialties i0y-820n-0 l <LVM09/06> [id number] [facility] [id number] 2015-10-18 2015-10-18 [facility] [place] 8c04d f4c-7 [facility] 19:20:00 19:20:00 appt. r Specialties v41-10q7-m l <LVM09/06> [id number] [facility] 0f30c6 2015-10-18 2015-10-18 [facility] [place] 6d21d fc4-c [facility] 19:20:00 19:20:00 appt. r Specialties m39-9jl0-1 l <LVM09/06> 95d-bcbc66 [facility] cdd98b 2015-10-18 2015-10-18 [facility] [place] 98a6a fb1-3 [facility] 19:20:00 19:20:00 appt. r Specialties fb8-44b1-9 l <LVM09/06> [id number] [facility] 8o0800 2015-10-18 2015-10-18 [facility] [address] d24-1 [facility] 19:20:00 19:20:00 appt. r Specialties c56-4su4-s l <LVM09/06> [id number] [facility] a726cd 2015-10-18 2015-10-18 [facility] [place] c40ee 12e-a [facility] 19:20:00 19:20:00 appt. r Specialties 1r9-5563-w l <LVM09/06> [id number] [facility] jho279 2015-10-18 2015-10-18 [facility] [place] a9441 f54-f [facility] 18:20:00 18:20:00 appt. r Specialties b15-3933-r l <LVM09/06> 17d-8fdf2a [facility] [id number] 9438-08-26 2015-10-18 [facility] [place] 6e026 026-4 [facility]oria 18:20:00 18:20:00 appt. r Specialties 3z4-5k61-p l <LVM09/06> [id number] [facility] [id number] 2015-10-18 2015-10-18 [facility] [place] fd4ed 39b-e [facility] 18:20:00 18:20:00 appt. r Specialties ac1-412a-8 l <LVM09/06> [id number] [facility] b3c57f 2015-10-18 2015-10-18 [facility] [place] [address] 535-8 [facility] 18:20:00 18:20:00 appt. r Specialties fee-4be9-8 l <LVM09/06> [id number] [facility] 7b6d39 2015-10-18 2015-10-18 [facility] [place] f248b f57-a [facility]oria 18:20:00 18:20:00 appt. r Specialties 5de-497d-b l <LVM09/06> [id number] [facility] 5888dc 2015-10-18 2015-10-18 [facility] [place] 2cba9 116-6 [facility] 18:20:00 18:20:00 appt. r Specialties 3y1-6u52-g l <LVM09/06> [id number] [facility] 75c1fa 2015-10-18 2015-10-18 [facility] [place] 6e026 026-4 [facility]oria 18:20:00 18:20:00 appt. r Specialties 2w0-3z51-c l <LVM09/06> [id number] [facility] 275e36 2015-10-18 2015-10-18 [facility] [place] a9441 f54-f [facility] 18:20:00 18:20:00 appt. r Specialties d79-6902-n l <LVM09/06> 17d-8fdf2a [facility] [id number] 0428-08-26 2015-10-18 [facility] [place] [address] 535-8 [facility]oria 18:20:00 18:20:00 appt. r Specialties fee-4be9-8 l <LVM09/06> [id number] [facility] 7b6d39 2015-10-18 2015-10-18 [facility] [place] f248b f57-a [facility]oria 18:20:00 18:20:00 appt. r Specialties 5de-497d-b l <LVM09/06> [id number]-67575a [facility] 5888dc 2015-10-18 2015-10-18 [facility] [place] fd4ed 39b-e [facility] 18:20:00 18:20:00 appt. r Specialties ac1-412a-8 l <LVM09/06> [id number] [facility] b3c57f 2015-10-18 2015-10-18 [facility] [place] 2cba9 116-6 [facility] 18:20:00 18:20:00 appt. r Specialties 3p0-5a26-g l <LVM09/06> [id number] [facility] 75c1fa 2015-10-18 2015-10-18 Outpatient [facility] [place] [id number] 01 eClinic 13:20:00 13:20:00 [facility] 2015-10-14 2015-10-14 Referral nullFlavo [place] 99c5 f1f9-3 [facility] 20:33:00 20:33:00 r Specialties de9-45e2-9 l 51f-aff5d4 [facility] nn a9df34 2015-10-14 2015-10-14 Referral nullFlavo [place] b547 222f-3 Memoria 20:33:00 20:33:00 r Specialties 841-4f08-b l 8b6-919v2b Mi nn [id number] 2015-10-14 2015-10-14 Referral nullFlavo [place] fff2 6596-2 Memoria 20:33:00 20:33:00 r Specialties p04-19p6-v l m6h-7w6440 Mi nn 9fca69 2015-10-14 2015-10-14 Referral nullFlavo [place] e16b 084f-f Memoria 20:33:00 20:33:00 r Specialties h92-0p76-i l 070-86a732 Mi nn q39143 2015-10-14 2015-10-14 Referral nullFlavo [place] 2e4e 6845-e Memoria 20:33:00 20:33:00 r Specialties 929-4383-a l 2v1-4b7628 Mi nn 985310 1263-08-22 2015-10-14 Referral nullFlavo [place] 8b1d 08a7-0 Memoria 20:33:00 20:33:00 r Specialties 063-43ee-9 l r06-6l9d5e Mi nn f29cc0 2015-10-14 2015-10-14 Referral nullFlavo [place] 3076 b1ed-1 Memoria 20:33:00 20:33:00 r Specialties 4u1-0c9h-2 l 186-61b3b0 Mi nn a8cc53 2015-10-14 2015-10-14 Referral nullFlavo [place] 449b 25a3-8 Memoria 20:33:00 20:33:00 r Specialties bf3-4754-b l fd5-6f30ac Mi nn 108bfc 2015-10-14 2015-10-14 Referral nullFlavo [place] 7f53 a78a-1 Memoria 20:33:00 20:33:00 r Specialties 970-47bc-9 l m54-71942g Mi nn xy231f 2015-10-14 2015-10-14 Referral nullFlavo [place] eef0 fdce-2 Memoria 20:33:00 20:33:00 r Specialties a02-56ih-4 l amanuel-817e82 Mi nn 9e0d32 2015-10-14 2015-10-14 Referral nullFlavo [place] dcb7 a1c1-0 Memoria 20:33:00 20:33:00 r Specialties 1c5-02f1-c l eb5-d78c7b Mi nn 3ecc44 2015-10-14 2015-10-14 Referral nullFlavo [place] d11d edf8-8 Memoria 20:33:00 20:33:00 r Specialties 65e-4e61-a l l68-zo34b7 Mi nn 646ed8 2015-10-14 2015-10-14 Referral nullFlavo [place] ac11 7c41-f Memoria 20:33:00 20:33:00 r Specialties l9d-3jl2-l l 385-eff2a1 [facility] nn c85bf5 2015-10-14 2015-10-14 Referral nullFlavo [place] eef0 fdce-2 Memoria 20:33:00 20:33:00 r Specialties t91-72ey-8 l amanuel-817e82 [facility] nn 9e0d32 2015-10-14 2015-10-14 Referral nullFlavo [place] 2e4e 6845-e Memoria 20:33:00 20:33:00 r Specialties 929-4383-a l 3w0-9s2211 [facility] nn [id number] 2954-08-22 2015-10-14 Referral nullFlavo [place] b547 222f-3 Memoria 20:33:00 20:33:00 r Specialties 841-4f08-b l 7v5-070j0r [facility] nn s96786 2015-10-14 2015-10-14 Referral nullFlavo [place] e16b 084f-f Memoria 20:33:00 20:33:00 r Specialties l48-7z29-k l 070-35c059 [facility] nn [id number] 2015-10-14 2015-10-14 Referral nullFlavo [place] 8b1d 08a7-0 Memoria 20:33:00 20:33:00 r Specialties 063-43ee-9 l j23-2z8c8j [facility] nn f29cc0 2015-10-14 2015-10-14 Referral nullFlavo [place] 99c5 f1f9-3 Memoria 20:33:00 20:33:00 r Specialties de9-45e2-9 l 51f-aff5d4 [facility] nn a9df34 2015-10-14 2015-10-14 Referral nullFlavo [place] 7f53 a78a-1 Memoria 20:33:00 20:33:00 r Specialties 970-47bc-9 l m79-28561i [facility] nn zh155w 2015-10-14 2015-10-14 Referral nullFlavo [place] fff2 6596-2 Memoria 20:33:00 20:33:00 r Specialties w23-06f5-q l x8d-0q3082 Mi nn 9fca69 2015-10-14 2015-10-14 Referral nullFlavo [place] 449b 25a3-8 Memoria 20:33:00 20:33:00 r Specialties bf3-4754-b l fd5-6f30ac Mi nn 108bfc 2015-10-14 2015-10-14 Referral nullFlavo [place] dcb7 a1c1-0 Memoria 20:33:00 20:33:00 r Specialties 3t0-51p1-c l eb5-d78c7b Mi nn 3ecc44 2015-10-14 2015-10-14 Referral nullFlavo [place] 3076 b1ed-1 Memoria 20:33:00 20:33:00 r Specialties 2s8-7w0v-1 l 186-61b3b0 Mi nn a8cc53 2015-10-14 2015-10-14 Referral nullFlavo [place] ac11 7c41-f Memoria 20:33:00 20:33:00 r Specialties u7t-4up7-n l 385-eff2a1 Mi nn c85bf5 2015-10-14 2015-10-14 Referral nullFlavo [place] d11d edf8-8 Memoria 20:33:00 20:33:00 r Specialties 65e-4e61-a l q93-lx84o7 Mi nn 646ed8 2015-10-14 2015-10-14 Referral nullFlavo [place] c094 13f4-8 Memoria 19:33:00 19:33:00 r Specialties 159-4340-9 l 906-6993bf Mi nn 2rc387 2015-10-14 2015-10-14 Referral nullFlavo [place] 2f2b 5946-f Memoria 19:33:00 19:33:00 r Specialties 924-4ed6-9 l 8t1-k4e6z8 Mi nn eec8f6 2015-10-14 2015-10-14 Referral nullFlavo [place] a177 2cce-7 Memoria 19:33:00 19:33:00 r Specialties f29-71ga-4 l p5p-1cdb1s Mi nn 4be54a 2015-10-14 2015-10-14 Referral nullFlavo [place] 154c 7bee-7 Memoria 19:33:00 19:33:00 r Specialties 5j5-393g-e l s32-0t8mb6 Mi nn 17l859 2015-10-14 2015-10-14 Referral nullFlavo [place] e657 13f6-c Memoria 19:33:00 19:33:00 r Specialties 448-4a41-9 l 6n8-9278l3 Mi nn 5baa7c 2015-10-14 2015-10-14 Referral nullFlavo [place] f63d 2e91-2 Memoria 19:33:00 19:33:00 r Specialties 2ea-41b3-9 l 21e-335551 Mi nn 2ea4b9 2015-10-14 2015-10-14 Referral nullFlavo [place] 18e2 38b5-2 Memoria 19:33:00 19:33:00 r Specialties 4j4-211x-2 l 0f5-r28y1b Mi nn 3792f2 2015-10-14 2015-10-14 Referral nullFlavo [place] 439d b711-7 Memoria 19:33:00 19:33:00 r Specialties 875-47a7-a l q1p-613imk Mi nn e77ea7 2015-10-14 2015-10-14 Referral nullFlavo [place] c094 13f4-8 Memoria 19:33:00 19:33:00 r Specialties 159-4340-9 l 906-6993bf Mi nn 1yy412 2015-10-14 2015-10-14 Referral nullFlavo [place] 154c 7bee-7 Memoria 19:33:00 19:33:00 r Specialties 7s4-589p-n l f04-9m1xp9 Mi nn 76q135 2015-10-14 2015-10-14 Referral nullFlavo [place] a177 2cce-7 Memoria 19:33:00 19:33:00 r Specialties l50-84et-5 l t4v-3msb5l Mi nn 4be54a 2015-10-14 2015-10-14 Referral nullFlavo [place] f63d 2e91-2 Memoria 19:33:00 19:33:00 r Specialties 2ea-41b3-9 l 21e-392944 Mi nn 2ea4b9 2015-10-14 2015-10-14 Referral nullFlavo [place] 18e2 38b5-2 Memoria 19:33:00 19:33:00 r Specialties 8g1-972m-9 l 6u5-l06a5f Mi nn 3792f2 2015-10-14 2015-10-14 Referral nullFlavo [place] 2f2b 5946-f Memoria 19:33:00 19:33:00 r Specialties 924-4ed6-9 l 0j8-t8d4c2 Mi nn eec8f6 2015-10-14 2015-10-14 Referral nullFlavo [place] e657 13f6-c Memoria 19:33:00 19:33:00 r Specialties 448-4a41-9 l 0b9-5991a9 Mi nn 5baa7c 2015-10-14 2015-10-14 Referral nullFlavo [place] 439d b711-7 Memoria 19:33:00 19:33:00 r Specialties 875-47a7-a l c4i-576tro Mi nn e77ea7 2015-10-14 2015-10-14 Outpatient Clear [place] 5515 05 eClinic 14:33:00 14:33:00 [facility] Special[facility] es 2015-10-14 2015-10-14 Hurt nullFlavo [place] 0edbf 211-7 Memoria 14:30:00 14:30:00 shoulder r Specialties z0h-7v68- b l 4o3-93h36n Mi nn 016c9d 2015-10-14 2015-10-14 Hurt nullFlavo [place] a7685 04b-6 Memoria 14:30:00 14:30:00 shoulder r Specialties v11-2446- a l c99-or8076 Mi nn 0529cf 2015-10-14 2015-10-14 Hurt nullFlavo [place] 27f4f 07d-2 Memoria 14:30:00 14:30:00 shoulder r Specialties 9y9-9dw2- 9 l dab-86l408 Mi nn 786bb0 2015-10-14 2015-10-14 Hurt nullFlavo [place] 252c1 b01-b Memoria 14:30:00 14:30:00 shoulder r Specialties 3ca-4c93- 8 l w91-8r4o2e Mi nn e6z394 2015-10-14 2015-10-14 Hurt nullFlavo [place] e8b70 37d-e Memoria 14:30:00 14:30:00 shoulder r Specialties t92-3271- b l 94f-bec8d5 Mi nn 79cad9 2015-10-14 2015-10-14 Hurt nullFlavo [place] 577a2 95a-b Memoria 14:30:00 14:30:00 shoulder r Specialties 09a-4846- b l 10c-352724 Mi nn 5c6ed9 2015-10-14 2015-10-14 Hurt nullFlavo [place] b7f71 1b2-6 Memoria 14:30:00 14:30:00 shoulder r Specialties 384-4b26- 8 l x67-51rk03 Mi nn 2q0437 2015-10-14 2015-10-14 Hurt nullFlavo [place] 5fe97 26d-5 Memoria 14:30:00 14:30:00 shoulder r Specialties ceb-449d- b l 16b-1e52fc Mi nn 1dc26e 2015-10-14 2015-10-14 Hurt nullFlavo [place] 0c6e1 4b6-c Memoria 14:30:00 14:30:00 shoulder r Specialties 38a-4fd1- a l 40e-2fe2db Mi nn c7e5f9 2015-10-14 2015-10-14 Hurt nullFlavo [place] 5f675 371-5 Memoria 14:30:00 14:30:00 shoulder r Specialties s3k-2143- b l 043-9cf7b8 Mi nn 78efcc 2015-10-14 2015-10-14 Hurt nullFlavo [place] a4679 83b-d Memoria 14:30:00 14:30:00 shoulder r Specialties 1m5-93gi- 9 l 4fa-af9bd5 Mi nn 661c6f 2015-10-14 2015-10-14 Hurt nullFlavo [place] 0d08c f85-7 Memoria 14:30:00 14:30:00 shoulder r Specialties 880-4db6- a l 4bd-9315be Mi nn x2q083 2015-10-14 2015-10-14 Hurt nullFlavo [place] 17781 a28-6 Memoria 14:30:00 14:30:00 shoulder r Specialties 6t8-5r22- b l m7c-24yyy0 Mi nn 323ce1 2015-10-14 2015-10-14 Hurt nullFlavo [place] 5f675 371-5 Memoria 14:30:00 14:30:00 shoulder r Specialties q2q-4226- b l 043-9cf7b8 Mi nn 78efcc 2015-10-14 2015-10-14 Hurt nullFlavo [place] e8b70 37d-e Memoria 14:30:00 14:30:00 shoulder r Specialties s48-4541- b l 94f-bec8d5 Mi nn 79cad9 2015-10-14 2015-10-14 Hurt nullFlavo [place] a7685 04b-6 Memoria 14:30:00 14:30:00 shoulder r Specialties f83-0861- a l y51-qa0573 Mi nn 0529cf 2015-10-14 2015-10-14 Hurt nullFlavo [place] 252c1 b01-b Memoria 14:30:00 14:30:00 shoulder r Specialties 3ca-4c93- 8 l f39-6m2i1j Mi nn t1n125 2015-10-14 2015-10-14 Hurt nullFlavo [place] 577a2 95a-b Memoria 14:30:00 14:30:00 shoulder r Specialties 09a-4846- b l 10c-707975 Mi nn 5c6ed9 2015-10-14 2015-10-14 Hurt nullFlavo [place] 0edbf 211-7 Memoria 14:30:00 14:30:00 shoulder r Specialties q5a-3r04- b l 6x2-99a30g Mi nn 016c9d 2015-10-14 2015-10-14 Hurt nullFlavo [place] 0c6e1 4b6-c Memoria 14:30:00 14:30:00 shoulder r Specialties 38a-4fd1- a l 40e-2fe2db Mi nn c7e5f9 2015-10-14 2015-10-14 Hurt nullFlavo [place] 27f4f 07d-2 Memoria 14:30:00 14:30:00 shoulder r Specialties 1m7-7cx2- 9 l dab-51s051 Mi nn 786bb0 2015-10-14 2015-10-14 Hurt nullFlavo [place] 5fe97 26d-5 Memoria 14:30:00 14:30:00 shoulder r Specialties ceb-449d- b l 16b-1e52fc Mi nn 1dc26e 2015-10-14 2015-10-14 Hurt nullFlavo [place] a4679 83b-d Memoria 14:30:00 14:30:00 shoulder r Specialties 2r0-81vw- 9 l 4fa-af9bd5 Mi nn 661c6f 2015-10-14 2015-10-14 Hurt nullFlavo [place] b7f71 1b2-6 Memoria 14:30:00 14:30:00 shoulder r Specialties 384-4b26- 8 l f12-56gl31 Mi nn 4f3820 2015-10-14 2015-10-14 Hurt nullFlavo [place] 68312 a28-6 Memoria 14:30:00 14:30:00 shoulder r Specialties 9g7-7y67- b l g4c-77cvw3 Mi nn 323ce1 2015-10-14 2015-10-14 Hurt nullFlavo [place] 0d08c f85-7 Memoria 14:30:00 14:30:00 shoulder r Specialties 880-4db6- a l 4bd-9315be Mi nn j2p581 2015-10-14 2015-10-14 Hurt nullFlavo [place] 7c73c e05-e Memoria 13:30:00 13:30:00 shoulder r Specialties 0s0-3k25- 8 l 803-816134 Mi nn 09f0bc 2015-10-14 2015-10-14 Hurt nullFlavo [place] 3960b 330-c Memoria 13:30:00 13:30:00 shoulder r Specialties 1be-4509- 9 l da4-8dd68a [facility] nn 545236 1534-08-22 2015-10-14 Hurt nullFlavo [place] 3eb54 20a-e Memoria 13:30:00 13:30:00 shoulder r Specialties n87-8935- 9 l 6c4-b3v897 Mi nn ca30a3 2015-10-14 2015-10-14 Hurt nullFlavo [place] a003f 3fe-2 Memoria 13:30:00 13:30:00 shoulder r Specialties afb-4b32- 8 l y79-g2k93e Mi nn 383df2 2015-10-14 2015-10-14 Hurt nullFlavo [place] 5bdbe 5ea-7 Memoria 13:30:00 13:30:00 shoulder r Specialties 6fb-4861- 8 l 918-9l668f Mi nn 9cfdfc 2015-10-14 2015-10-14 Hurt nullFlavo [place] 41823 d57-9 Memoria 13:30:00 13:30:00 shoulder r Specialties u7k-4693- b l 8l8-srv796 Mi nn 1e4d14 2015-10-14 2015-10-14 Hurt nullFlavo [place] ed79a ccd-c Memoria 13:30:00 13:30:00 shoulder r Specialties 1ef-44c0- 9 l p91-300m21 Mi nn 15472g 2015-10-14 2015-10-14 Hurt nullFlavo [place] 3eb54 20a-e Memoria 13:30:00 13:30:00 shoulder r Specialties h51-2240- 9 l 2k7-c0s036 Mi nn ca30a3 2015-10-14 2015-10-14 Hurt nullFlavo [place] 3960b 330-c Memoria 13:30:00 13:30:00 shoulder r Specialties 1be-4509- 9 l da4-8dd68a Mi nn 579967 0405-08-22 2015-10-14 Hurt nullFlavo [place] 5bdbe 5ea-7 Memoria 13:30:00 13:30:00 shoulder r Specialties 6fb-4861- 8 l 918-8o037v Mi nn 9cfdfc 2015-10-14 2015-10-14 Hurt nullFlavo [place] 99105 d57-9 Memoria 13:30:00 13:30:00 shoulder r Specialties y3y-8146- b l 5f7-hmk798 Mi nn 1e4d14 2015-10-14 2015-10-14 Hurt nullFlavo [place] 7c73c e05-e Memoria 13:30:00 13:30:00 shoulder r Specialties 8b8-4p38- 8 l 803-312445 Mi nn 09f0bc 2015-10-14 2015-10-14 Hurt nullFlavo [place] a003f 3fe-2 Memoria 13:30:00 13:30:00 shoulder r Specialties afb-4b32- 8 l u07-a6u41l Mi nn 383df2 2015-10-14 2015-10-14 Hurt nullFlavo [place] ed79a ccd-c Memoria 13:30:00 13:30:00 shoulder r Specialties 1ef-44c0- 9 l y35-963z77 Mi nn 18629t 2015-10-14 2015-10-14 Outpatient [facility] [place] 5505 42 eClinic 08:30:00 08:30:00 [facility] 2015-09-17 2015-09-17 Outpatient [facility]IE MHIE [id number] Memoria 11:50:00 11:50:00 02 l Niall 2015-09-17 2015-09-17 Outpatient MHIE IE [id number] Memoria 11:50:00 11:50:00 02 l Niall 2015-09-10 2015-09-10 2-3 Week nullFlavo [place] 6593 22aa-3 Memoria 16:30:00 16:30:00 Follow Up r Specialties 39a-4b37 -9 l 5fd-8e0059 Mi nn 7feed5 2015-09-10 2015-09-10 2-3 Week nullFlavo [place] 771e e4c2-e Memoria 16:30:00 16:30:00 Follow Up r Specialties 907-40f6 -a l d9x-612472 Mi nn f1ff83 2015-09-10 2015-09-10 2-3 Week nullFlavo [place] 9625 a843-e Memoria 16:30:00 16:30:00 Follow Up r Specialties 2w6-5d83 -b l 56e-42798r Mi nn 52610o 2015-09-10 2015-09-10 2-3 Week nullFlavo [place] 34d5 2df7-2 Memoria 16:30:00 16:30:00 Follow Up r Specialties ff5-45d3 -9 l 0l3-225dh6 Mi nn 3bece1 2015-09-10 2015-09-10 2-3 Week nullFlavo [place] 12e6 dba4-0 Memoria 16:30:00 16:30:00 Follow Up r Specialties dd4-4219 -8 l 492-jb497p Mi nn bd4c3b 2015-09-10 2015-09-10 2-3 Week nullFlavo [place] 8fb1 79fb-b Memoria 16:30:00 16:30:00 Follow Up r Specialties 807-4de5 -9 l i01-g14583 Mi nn 826ddc 2015-09-10 2015-09-10 2-3 Week nullFlavo [place] f866 402f-1 Memoria 16:30:00 16:30:00 Follow Up r Specialties 58a-4a8e -9 l 134-28c447 Mi nn 3228cb 2015-09-10 2015-09-10 2-3 Week nullFlavo [place] 9408 7d64-0 Memoria 16:30:00 16:30:00 Follow Up r Specialties 282-4737 -a l fbd-8f2733 Mi nn 7a2bea 2015-09-10 2015-09-10 2-3 Week nullFlavo [place] 34ee 27a9-1 Memoria 16:30:00 16:30:00 Follow Up r Specialties ac3-4833 -9 l 749-1b32b2 Mi nn 16b964 2015-09-10 2015-09-10 2-3 Week nullFlavo [place] 209f 351e-2 Memoria 16:30:00 16:30:00 Follow Up r Specialties 5ab-4cd5 -a l eab-4feafd Mi nn 1n3913 2015-09-10 2015-09-10 2-3 Week nullFlavo [place] b477 fbf3-e Memoria 16:30:00 16:30:00 Follow Up r Specialties bfb-48af -9 l 970-0d7eef Mi nn 049db0 2015-09-10 2015-09-10 2-3 Week nullFlavo [place] 42e4 a926-2 Memoria 16:30:00 16:30:00 Follow Up r Specialties 1k1-2xw1 -a l g02-jeflb9 Mi nn 46173f 2015-09-10 2015-09-10 2-3 Week nullFlavo [place] 3d92 4888-0 Memoria 16:30:00 16:30:00 Follow Up r Specialties 7a7-4384 -b l t98-19v709 Mi nn z4v161 2015-09-10 2015-09-10 2-3 Week nullFlavo [place] 209f 351e-2 Memoria 16:30:00 16:30:00 Follow Up r Specialties 5ab-4cd5 -a l eab-4feafd Mi nn 1s9619 2015-09-10 2015-09-10 2-3 Week nullFlavo [place] 12e6 dba4-0 Memoria 16:30:00 16:30:00 Follow Up r Specialties dd4-4219 -8 l 492-dz515g Mi nn bd4c3b 2015-09-10 2015-09-10 2-3 Week nullFlavo [place] 771e e4c2-e Memoria 16:30:00 16:30:00 Follow Up r Specialties 907-40f6 -a l u2q-070129 Mi nn f1ff83 2015-09-10 2015-09-10 2-3 Week nullFlavo [place] 34d5 2df7-2 Memoria 16:30:00 16:30:00 Follow Up r Specialties ff5-45d3 -9 l 8w7-226cu0 Mi nn 3bece1 2015-09-10 2015-09-10 2-3 Week nullFlavo [place] 8fb1 79fb-b Memoria 16:30:00 16:30:00 Follow Up r Specialties 807-4de5 -9 l d01-e43113 Mi nn 826ddc 2015-09-10 2015-09-10 2-3 Week nullFlavo [place] 6593 22aa-3 Memoria 16:30:00 16:30:00 Follow Up r Specialties 39a-4b37 -9 l 5fd-1t0331 Mi nn 7feed5 2015-09-10 2015-09-10 2-3 Week nullFlavo [place] 34ee 27a9-1 Memoria 16:30:00 16:30:00 Follow Up r Specialties ac3-4833 -9 l 749-1b32b2 Mi nn 78x132 2015-09-10 2015-09-10 2-3 Week nullFlavo [place] 9625 a843-e Memoria 16:30:00 16:30:00 Follow Up r Specialties 4a2-1a58 -b l 56e-31164t Mi nn 39147c 2015-09-10 2015-09-10 2-3 Week nullFlavo [place] 9408 7d64-0 Memoria 16:30:00 16:30:00 Follow Up r Specialties 282-4737 -a l fbd-1q1426 Mi nn 7a2bea 2015-09-10 2015-09-10 2-3 Week nullFlavo [place] b477 fbf3-e Memoria 16:30:00 16:30:00 Follow Up r Specialties bfb-48af -9 l 970-0d7eef Mi nn 049db0 2015-09-10 2015-09-10 2-3 Week nullFlavo [place] f866 402f-1 Memoria 16:30:00 16:30:00 Follow Up r Specialties 58a-4a8e -9 l 134-18i367 Mi nn 3228cb 2015-09-10 2015-09-10 2-3 Week nullFlavo [place] 3d92 4888-0 Memoria 16:30:00 16:30:00 Follow Up r Specialties 3i9-2930 -b l a23-51c931 Mi nn v4s995 2015-09-10 2015-09-10 2-3 Week nullFlavo [place] 42e4 a926-2 Memoria 16:30:00 16:30:00 Follow Up r Specialties 9k2-6mv8 -a l c92-pirnu1 Mi nn 67665r 2015-09-10 2015-09-10 2-3 Week nullFlavo [place] 8878 48aa-0 Memoria 15:30:00 15:30:00 Follow Up r Specialties 8q3-56cx -8 l db1-2c2a70 Mi nn 2342cb 2015-09-10 2015-09-10 2-3 Week nullFlavo [place] 251f afce-7 Memoria 15:30:00 15:30:00 Follow Up r Specialties 4bd-4362 -a l 662-uaj133 Mi nn nn0099 2015-09-10 2015-09-10 2-3 Week nullFlavo [place] cac0 d1b3-2 Memoria 15:30:00 15:30:00 Follow Up r Specialties r98-8821 -a l s4q-440l5o Mi nn b94bd4 2015-09-10 2015-09-10 2-3 Week nullFlavo [place] bbba 5dc4-a Memoria 15:30:00 15:30:00 Follow Up r Specialties 3z2-628f -8 l 473-84f5d2 Mi nn 05318p 2015-09-10 2015-09-10 2-3 Week nullFlavo [place] 240f 7c26-e Memoria 15:30:00 15:30:00 Follow Up r Specialties 73e-46df -a l 32c-4y0804 Mi nn 4r8933 2015-09-10 2015-09-10 2-3 Week nullFlavo [place] 4f55 bd9f-1 Memoria 15:30:00 15:30:00 Follow Up r Specialties 4x5-43fk -a l 981-14433f Mi nn z2730l 2015-09-10 2015-09-10 2-3 Week nullFlavo [place] 5019 b360-5 Memoria 15:30:00 15:30:00 Follow Up r Specialties 006-49a1 -b l 7j9-1jeo74 Mi nn 58f302 2015-09-10 2015-09-10 2-3 Week nullFlavo [place] b69c f634-1 Memoria 15:30:00 15:30:00 Follow Up r Specialties j59-5ns7 -8 l 626-8724b5 Mi nn b28a1f 2015-09-10 2015-09-10 2-3 Week nullFlavo [place] 18cd 5ccf-c Memoria 15:30:00 15:30:00 Follow Up r Specialties 408-4116 -a l 48f-104d3c Mi nn 9aeb95 2015-09-10 2015-09-10 2-3 Week nullFlavo [place] 8878 48aa-0 Memoria 15:30:00 15:30:00 Follow Up r Specialties 1o9-95tk -8 l db1-2c2a70 Mi nn 2342cb 2015-09-10 2015-09-10 2-3 Week nullFlavo [place] 240f 7c26-e Memoria 15:30:00 15:30:00 Follow Up r Specialties 73e-46df -a l 32c-5p0554 Mi nn 1p6244 2015-09-10 2015-09-10 2-3 Week nullFlavo [place] bbba 5dc4-a Memoria 15:30:00 15:30:00 Follow Up r Specialties 7q7-331y -8 l 473-84f5d2 Mi nn 62267y 2015-09-10 2015-09-10 2-3 Week nullFlavo [place] 5019 b360-5 Memoria 15:30:00 15:30:00 Follow Up r Specialties 006-49a1 -b l 4k9-6dqh84 Mi nn 32k671 2015-09-10 2015-09-10 2-3 Week nullFlavo [place] b69c f634-1 Memoria 15:30:00 15:30:00 Follow Up r Specialties j59-8pa6 -8 l 626-8724b5 Mi nn b28a1f 2015-09-10 2015-09-10 2-3 Week nullFlavo [place] 251f afce-7 Memoria 15:30:00 15:30:00 Follow Up r Specialties 4bd-4362 -a l 662-ivw461 Mi nn bc0810 2015-09-10 2015-09-10 2-3 Week nullFlavo [place] cac0 d1b3-2 Memoria 15:30:00 15:30:00 Follow Up r Specialties e56-7175 -a l n5q-991e1t Mi nn b94bd4 2015-09-10 2015-09-10 2-3 Week nullFlavo [place] 4f55 bd9f-1 Memoria 15:30:00 15:30:00 Follow Up r Specialties 2x1-48ep -a l 981-37664h Mi nn r1269r 2015-09-10 2015-09-10 2-3 Week nullFlavo [place] 18cd 5ccf-c Memoria 15:30:00 15:30:00 Follow Up r Specialties 408-4116 -a l 48f-104d3c Mi nn [id number] 2015-09-10 2015-09-10 Outpatient Clear [place] 5217 62 eClinic 10:30:00 10:30:00 [facility] 2015-08-27 2015-08-27 Cancel nullFlavo [place] 6e594 af7-d [facility] 23:04:00 23:04:00 appt. r Specialties 683-4e6e-9 l 20c-21fa64 [facility] [id number] 2015-08-27 2015-08-27 Cancel nullFlavo [place] e670e 7ef-7 Mem[facility] 23:04:00 23:04:00 appt. r Specialties l0h-9e2t-2 l m5c-2x4m49 [facility] nn [id number] 2015-08-27 2015-08-27 Cancel nullFlavo [place] de34f 297-5 [facility] 23:04:00 23:04:00 appt. r Specialties 371-4bd0-b l n75-yr0fd1 [facility] nn [id number] 2015-08-27 2015-08-27 Cancel nullFlavo [place] 622d3 176-c [facility] 23:04:00 23:04:00 appt. r Specialties a0q-379j-w l cf2-4edafb [facility] [id number] 7116-07-05 2015-08-27 Cancel nullFlavo [place] [address] 3d2-f [facility] 23:04:00 23:04:00 appt. r Specialties 4af-4d6f-b l dfc-defb1f [facility] 78j127 2015-08-27 2015-08-27 Cancel nullFlavo [place] b3a0a 2a6-0 [facility] 23:04:00 23:04:00 appt. r Specialties 4o6-0215-o l 265-1fc8c3 [facility] nn [id number] 2015-08-27 2015-08-27 Cancel nullFlavo [place] b09d4 69d-c [facility] 23:04:00 23:04:00 appt. r Specialties 797-467d-8 l n4u-j2a256 [facility] [id number] 2015-08-27 2015-08-27 Cancel nullFlavo [place] dd3ef 1d1-6 [facility] 23:04:00 23:04:00 appt. r Specialties 8y4-8772-5 l f7v-mqcd4e [facility] 0800ec 2015-08-27 2015-08-27 Cancel nullFlavo [place] d3495 ff3-5 [facility] 23:04:00 23:04:00 appt. r Specialties 38e-405f-b l 9w1-515sxg Mi nn [id number] 2015-08-27 2015-08-27 Cancel nullFlavo [place] fed20 92f-6 [facility] 23:04:00 23:04:00 appt. r Specialties 654-48e7-a l 723-3s0859 Mi nn [id number] 2015-08-27 2015-08-27 Cancel nullFlavo [place] a4a41 b4e-4 [facility] 23:04:00 23:04:00 appt. r Specialties 82e-4626-a l 550-0f96ef Mi nn 87406m 2015-08-27 2015-08-27 Cancel nullFlavo [place] 90c36 6e9-8 [facility] 23:04:00 23:04:00 appt. r Specialties a95-331e-3 l 92b-1ac6b2 Mi nn c5cc4d 2015-08-27 2015-08-27 Cancel nullFlavo [place] 3ec3b dd7-4 [facility] 23:04:00 23:04:00 appt. r Specialties o6e-37dq-x l u52-590g16 Mi nn df5fa3 2015-08-27 2015-08-27 Cancel nullFlavo [place] fed20 92f-6 [facility] 23:04:00 23:04:00 appt. r Specialties 654-48e7-a l 723-3c2118 Mi nn [id number] 2015-08-27 2015-08-27 Cancel nullFlavo [place] [address] 3d2-f [facility] 23:04:00 23:04:00 appt. r Specialties 4af-4d6f-b l dfc-defb1f Mi nn [id number] 2015-08-27 2015-08-27 Cancel nullFlavo [place] e670e 7ef-7 [facility] 23:04:00 23:04:00 appt. r Specialties z7p-4o5n-0 l m4w-0g5a53 Mi nn [id number] 2015-08-27 2015-08-27 Cancel nullFlavo [place] 622d3 176-c [facility] 23:04:00 23:04:00 appt. r Specialties a8c-342a-p l cf2-4edafb [facility] nn [id number] 7286-07-05 2015-08-27 Cancel nullFlavo [place] b3a0a 2a6-0 [facility] 23:04:00 23:04:00 appt. r Specialties 6e4-0123-t l 265-1fc8c3 [facility] nn 311d7a 2015-08-27 2015-08-27 Cancel nullFlavo [place] 6e594 af7-d [facility] 23:04:00 23:04:00 appt. r Specialties 683-4e6e-9 l 20c-21fa64 [facility] nn [id number] 2015-08-27 2015-08-27 Cancel nullFlavo [place] d3495 ff3-5 [facility] 23:04:00 23:04:00 appt. r Specialties 38e-405f-b l 2s8-480czr [facility] nn e690eb 2015-08-27 2015-08-27 Cancel nullFlavo [place] de34f 297-5 [facility] 23:04:00 23:04:00 appt. r Specialties 371-4bd0-b l d49-cz3ee6 [facility] nn 43d2fe 2015-08-27 2015-08-27 Cancel nullFlavo [place] dd3ef 1d1-6 [facility] 23:04:00 23:04:00 appt. r Specialties 7j6-0509-3 l a3m-wake8m [facility] nn 0800ec 2015-08-27 2015-08-27 Cancel nullFlavo [place] a4a41 b4e-4 [facility] 23:04:00 23:04:00 appt. r Specialties 82e-4626-a l 550-0f96ef [facility] nn [id number] 2015-08-27 2015-08-27 Cancel nullFlavo [place] b09d4 69d-c [facility] 23:04:00 23:04:00 appt. r Specialties 797-467d-8 l h9o-g0q824 [facility] nn [id number] 2015-08-27 2015-08-27 Cancel nullFlavo [place] 3ec3b dd7-4 [facility] 23:04:00 23:04:00 appt. r Specialties i6v-54jk-t l b29-234j14 Mi nn df5fa3 2015-08-27 2015-08-27 Cancel nullFlavo [place] 90c36 6e9-8 [facility] 23:04:00 23:04:00 appt. r Specialties y61-111c-9 l 92b-1ac6b2 [facility] nn c5cc4d 2015-08-27 2015-08-27 Cancel nullFlavo [place] cb39e 359-8 [facility] 22:04:00 22:04:00 appt. r Specialties 90f-4841-a l donnie-db9fba Mi nn [id number] 5736-07-05 2015-08-27 Cancel nullFlavo [place] e0dd0 dd7-8 [facility] 22:04:00 22:04:00 appt. r Specialties fb1-46e7-9 l 8s6-uoan14 Mi nn dca09d 2015-08-27 2015-08-27 Cancel nullFlavo [place] 7ad59 851-2 [facility] 22:04:00 22:04:00 appt. r Specialties 06c-4c7e-8 l 005-a3e1b8 Mi nn ef1d37 2015-08-27 2015-08-27 Cancel nullFlavo [place] a839b 6da-c [facility] 22:04:00 22:04:00 appt. r Specialties dab-4f51-9 l 9c1-11019p [facility] nn [id number] 2015-08-27 2015-08-27 Cancel [facility]Flavo [place] 130d9 f15-9 [facility] 22:04:00 22:04:00 appt. r Specialties 81c-4d5e-9 l 31c-962d97 Mi nn 997161 7190-07-05 2015-08-27 Cancel nullFl[facility] [place] a20b5 aed-e [facility] 22:04:00 22:04:00 appt. r Specialties 508-4f6d-8 l 663-df5b91 Mi nn 80e97d 2015-08-27 2015-08-27 Cancel null[facility] [place] 9dca9 2e4-8 [facility] 22:04:00 22:04:00 appt. r Specialties g54-683q-z l 887-574345 Mi nn 20e44f 2015-08-27 2015-08-27 Cancel nullFl[facility] [place] 12861 7d6-b [facility] 22:04:00 22:04:00 appt. r Specialties 322-41b8-9 l 0ef-930e22 [facility] nn 555100 0189-07-05 2015-08-27 Cancel null[facility] [place] 25738 b99-8 [facility] 22:04:00 22:04:00 appt. r Specialties 990-4390-a l 68a-he9061 [facility] nn 2ceddb 2015-08-27 2015-08-27 Cancel nullFl[facility] [place] 9b5b3 054-d [facility] 22:04:00 22:04:00 appt. r Specialties 0h2-0786-9 l 345-1c1fc6 [facility] nn 29a27f 2015-08-27 2015-08-27 Cancel null[facility] [place] cb39e 359-8 [facility] 22:04:00 22:04:00 appt. r Specialties 90f-4841-a l donnie-db9fba [facility] nn 627818 3018-07-05 2015-08-27 Cancel [facility] [place] a20b5 aed-e [facility] 22:04:00 22:04:00 appt. r Specialties 508-4f6d-8 l 663-df5b91 [facility] nn 80e97d 2015-08-27 2015-08-27 Cancel [facility] [place] e0dd0 dd7-8 [facility] 22:04:00 22:04:00 appt. r Specialties fb1-46e7-9 l 2t1-caet82 [facility] nn dca09d 2015-08-27 2015-08-27 Cancel null[facility] [place] 130d9 f15-9 [facility] 22:04:00 22:04:00 appt. r Specialties 81c-4d5e-9 l 31c-962d97 [facility] nn 201308 5369-07-05 2015-08-27 Cancel [facility] [place] 8[address] 7d6-b [facility] 22:04:00 22:04:00 appt. r Specialties 322-41b8-9 l 0ef-930e22 [facility] nn 946725 4229-07-05 2015-08-27 Cancel null[facility] [place] 10698 b99-8 [facility] 22:04:00 22:04:00 appt. r Specialties 990-4390-a l 68a-yc4385 [facility] nn 2ceddb 2015-08-27 2015-08-27 Cancel null[facility] [place] 7ad59 851-2 [facility] 22:04:00 22:04:00 appt. r Specialties 06c-4c7e-8 l 005-a3e1b8 [facility] nn ef1d37 2015-08-27 2015-08-27 Cancel [facility] [place] a839b 6da-c [facility] 22:04:00 22:04:00 appt. r Specialties dab-4f51-9 l 0r2-83907p [facility] nn fge909 2015-08-27 2015-08-27 Cancel nullFl[facility] [place] 9dca9 2e4-8 [facility] 22:04:00 22:04:00 appt. r Specialties e43-928r-h l 887-067281 [facility] nn 20e44f 2015-08-27 2015-08-27 Cancel null[facility] [place] 9b5b3 054-d [facility] 22:04:00 22:04:00 appt. r Specialties 7f2-2183-4 l 345-1c1fc6 [facility] nn 29a27f 2015-08-27 2015-08-27 [facility] [place] 5248 39 eClinic 17:04:00 17:04:00 [facility] es 2015-08-14 2015-08-14 Test nullFlavo [place] 64944 0af-7 [facility] 14:10:00 14:10:00 results- r Specialties 2ac-40a6- b l done 5q3-7r1h35 [facility] nn 14d5d8 2015-08-14 2015-08-14 Test nullFl[facility] [place] 89bb3 a8f-0 [facility] 14:10:00 14:10:00 results- r Specialties 49d-43eb- 8 l done d86-i2zc91 [facility] nn f1ae8f 2015-08-14 2015-08-14 Test nullFl[facility] [place] bba24 9e3-2 [facility] 14:10:00 14:10:00 results- r Specialties s9t-37e0- 9 l done bc3-fd3a0a Mi nn 4cee42 2015-08-14 2015-08-14 Test nullFl[facility] [place] 9e412 39d-a [facility] 14:10:00 14:10:00 results- r Specialties fbc-45bb- 9 l done beb-2z8043 Mi nn bbdc21 2015-08-14 2015-08-14 Test nullFl[facility] [place] 2ed9b 3f0-3 [facility] 14:10:00 14:10:00 results- r Specialties fa1-4b7d- 9 l done 0dc-d4f46b Mi nn 3ffe40 2015-08-14 2015-08-14 Test nullFl[facility] [place] 5a17a 6a5-a [facility] 14:10:00 14:10:00 results- r Specialties 9ea-4816- 8 l done 39d-45591f [facility] nn v6870b 2015-08-14 2015-08-14 Test nullFl[facility] [place] 4df25 491-5 [facility] 14:10:00 14:10:00 results- r Specialties o4f-710n- 8 l done 508-5f9ca3 [facility] nn 7ea1cf 2015-08-14 2015-08-14 Test nullFl[facility] [place] 86fb6 e1d-4 [facility] 14:10:00 14:10:00 results- r Specialties 329-415d- 9 l done cf5-2v1226 [facility] nn 6178cc 2015-08-14 2015-08-14 Test nullFl[facility] [place] be4f9 83d-8 [facility] 14:10:00 14:10:00 results- r Specialties 14f-48de- 8 l done 832-423601 [facility] nn 99bab9 2015-08-14 2015-08-14 Test nullFl[facility] [place] 3ea7d 95d-d [facility] 14:10:00 14:10:00 results- r Specialties 2v9-5b87- 9 l done 89e-2aa81a Mi nn b3r499 2015-08-14 2015-08-14 Test nullFl[facility] [place] 94355 f93-b [facility] 14:10:00 14:10:00 results- r Specialties 441-4a4f- 9 l done 483-d6f8d2 Mi nn 71819v 2015-08-14 2015-08-14 Test nullFl[facility] [place] 86905 ba8-1 [facility] 14:10:00 14:10:00 results- r Specialties 542-4f6f- a l done 197-207c43 Mi nn a9df46 2015-08-14 2015-08-14 Test nullFl[facility] [place] a7d66 8ed-e [facility] 14:10:00 14:10:00 results- r Specialties 1p4-9307- 8 l done q3i-542323 Mi nn 3qf968 2015-08-14 2015-08-14 Test nullFl[facility] [place] 3ea7d 95d-d [facility] 14:10:00 14:10:00 results- r Specialties 8o2-0h83- 9 l done 89e-2aa81a Mi nn i7p817 2015-08-14 2015-08-14 Test nullFl[facility] [place] 2ed9b 3f0-3 [facility] 14:10:00 14:10:00 results- r Specialties fa1-4b7d- 9 l done 0dc-d4f46b Mi nn 3ffe40 2015-08-14 2015-08-14 Test nullFl[facility] [place] 89bb3 a8f-0 [facility] 14:10:00 14:10:00 results- r Specialties 49d-43eb- 8 l done m39-i8wq18 Mi nn f1ae8f 2015-08-14 2015-08-14 Test nullFl[facility] [place] 9e412 39d-a [facility] 14:10:00 14:10:00 results- r Specialties fbc-45bb- 9 l done beb-8a1326 Mi nn bbdc21 2015-08-14 2015-08-14 Test nullFl[facility] [place] 5a17a 6a5-a [facility] 14:10:00 14:10:00 results- r Specialties 9ea-4816- 8 l done 39d-33849o Mi nn r3209z 2015-08-14 2015-08-14 Test nullFl[facility] [place] 86802 0af-7 [facility] 14:10:00 14:10:00 results- r Specialties 2ac-40a6- b l done 5e1-9x3n52 Mi nn 14d5d8 2015-08-14 2015-08-14 Test nullFl[facility] [place] be4f9 83d-8 [facility] 14:10:00 14:10:00 results- r Specialties 14f-48de- 8 l done 832-963186 Mi nn 99bab9 2015-08-14 2015-08-14 Test nullFl[facility] [place] bba24 9e3-2 [facility] 14:10:00 14:10:00 results- r Specialties y6t-89a9- 9 l done bc3-fd3a0a Mi nn 4cee42 2015-08-14 2015-08-14 Test nullFl[facility] [place] 86fb6 e1d-4 [facility] 14:10:00 14:10:00 results- r Specialties 329-415d- 9 l done cf5-5h2638 Mi nn 6178cc 2015-08-14 2015-08-14 Test nullFl[facility] [place] 51910 f93-b [facility] 14:10:00 14:10:00 results- r Specialties 441-4a4f- 9 l done 483-d6f8d2 Mi nn 12002q 2015-08-14 2015-08-14 Test nullFl[facility] [place] 4df25 491-5 [facility] 14:10:00 14:10:00 results- r Specialties p9d-514n- 8 l done 508-5f9ca3 Mi nn 7ea1cf 2015-08-14 2015-08-14 Test nullFl[facility] [place] a7d66 8ed-e [facility] 14:10:00 14:10:00 results- r Specialties 9q9-9841- 8 l done k9r-735635 Mi nn 2oo181 2015-08-14 2015-08-14 Test nullFl[facility] [place] 01568 ba8-1 [facility] 14:10:00 14:10:00 results- r Specialties 542-4f6f- a l done 197-207c43 Mi nn a9df46 2015-08-14 2015-08-14 Test nullFl[facility] [place] c520f a47-d [facility] 13:10:00 13:10:00 results- r Specialties 168-4b73- a l done j7v-i9227p [facility] nn a90d0e 2015-08-14 2015-08-14 Test nullFl[facility] [place] 3405d cc7-a [facility] 13:10:00 13:10:00 results- r Specialties 594-4c45- b l done 88f-222144 [facility] nn 34a4c7 2015-08-14 2015-08-14 Test nullFl[facility] [place] bf151 1bb-3 [facility] 13:10:00 13:10:00 results- r Specialties z46-5547- a l done 44a-d1fb96 [facility] nn ul727c 2015-08-14 2015-08-14 Test nullFl[facility] [place] 193c7 350-4 [facility] 13:10:00 13:10:00 results- r Specialties 76b-4e76- 8 l done 701-960a9d [facility] e6bf3c 2015-08-14 2015-08-14 Test nullFlavo [place] 7f7cf be2-b [facility] 13:10:00 13:10:00 results- r Specialties dd4-4548- 8 l done 7fa-2c7d56 [facility] 2y6651 2015-08-14 2015-08-14 Test nullFl[facility] [place] e9f1d 3f4-7 [facility] 13:10:00 13:10:00 results- r Specialties 8ba-4507- 8 l done 568-5ab29f [facility] nn 0e0d42 2015-08-14 2015-08-14 Test nullFlavo [place] 014d7 50a-1 [facility] 13:10:00 13:10:00 results- r Specialties 97d-4a47- a l done 26a-p70607 [facility] 10k210 2015-08-14 2015-08-14 Test nullFl[facility] [place] 09c0f 21e-f [facility] 13:10:00 13:10:00 results- r Specialties x08-9492- 9 l done 55f-baab87 [facility] cd4b20 2015-08-14 2015-08-14 Test nullFl[facility] [place] ed846 75b-8 [facility] 13:10:00 13:10:00 results- r Specialties 7p3-1378- a l done 57c-a3b2a7 [facility] d6ab74 2015-08-14 2015-08-14 Test nullFl[facility] [place] be1b6 f98-f [facility] 13:10:00 13:10:00 results- r Specialties 15b-4807- 9 l done a09-a26805 [facility] 21d386 2015-08-14 2015-08-14 Test nullFl[facility] [place] 27d1b 20f-d [facility] 13:10:00 13:10:00 results- r Specialties 55f-4f5b- b l done ebc-8m6918 [facility] 8a77f3 2015-08-14 2015-08-14 Test nullFl[facility] [place] c520f a47-d [facility] 13:10:00 13:10:00 results- r Specialties 168-4b73- a l done p0f-s1676h [facility] a90d0e 2015-08-14 2015-08-14 Test nullFl[facility] [place] 014d7 50a-1 [facility] 13:10:00 13:10:00 results- r Specialties 97d-4a47- a l done 26a-o21810 [facility] 78t693 2015-08-14 2015-08-14 Test nullFl[facility] [place] bf151 1bb-3 [facility] 13:10:00 13:10:00 results- r Specialties t13-2825- a l done 44a-d1fb96 [facility] bk744o 2015-08-14 2015-08-14 Test nullFlavo [place] 3405d cc7-a [facility] 13:10:00 13:10:00 results- r Specialties 594-4c45- b l done 88f-629101 [facility] 34a4c7 2015-08-14 2015-08-14 Test nullFlavo [place] e9f1d 3f4-7 [facility] 13:10:00 13:10:00 results- r Specialties 8ba-4507- 8 l done 568-5ab29f [facility] 0e0d42 2015-08-14 2015-08-14 Test nullFl[facility] [place] ed846 75b-8 [facility] 13:10:00 13:10:00 results- r Specialties 6f7-0659- a l done 57c-a3b2a7 [facility] d6ab74 2015-08-14 2015-08-14 Test nullFl[facility] [place] be1b6 f98-f [facility] 13:10:00 13:10:00 results- r Specialties 15b-4807- 9 l done n01-y06710 Mi nn 90i797 2015-08-14 2015-08-14 Test nullFl[facility] [place] 193c7 350-4 [facility] 13:10:00 13:10:00 results- r Specialties 76b-4e76- 8 l done 701-960a9d Mi nn e6bf3c 2015-08-14 2015-08-14 Test nullFl[facility] [place] 7f7cf be2-b [facility] 13:10:00 13:10:00 results- r Specialties dd4-4548- 8 l done 7fa-2c7d56 Mi nn 6j9824 2015-08-14 2015-08-14 Test nullFl[facility] [place] 09c0f 21e-f [facility] 13:10:00 13:10:00 results- r Specialties g88-2598- 9 l done 55f-baab87 Mi nn cd4b20 2015-08-14 2015-08-14 Test nullFl[facility] [place] 27d1b 20f-d [facility] 13:10:00 13:10:00 results- r Specialties 55f-4f5b- b l done ebc-0r0448 Mi nn 8a77f3 2015-08-14 2015-08-14 [facility] [place] 5186 84 eClinic 08:10:00 08:10:00 [facility] es 2015-08-01 2015-08-01 Left side nullFl[facility] [place] 6fd 4q66x-m [facility] 16:45:00 16:45:00 pain x 2 r Specialties 03e-49b5- 9 l wks 119-57m439 Mi nn f634ed 2015-08-01 2015-08-01 Left side nullFl[facility] [place] 853 5g667-0 [facility] 16:45:00 16:45:00 pain x 2 r Specialties f7j-4628- 8 l wks aaa-g4v701 Mi nn 645493 6527-06-09 2015-08-01 Left side nullFl[facility] [place] 625 5pw5p-5 [facility] 16:45:00 16:45:00 pain x 2 r Specialties p3r-365y- b l wks 5cb-f8bc02 [facility] nn 8eef3c 2015-08-01 2015-08-01 Left side nullFl[facility] [place] 836 8167f-d [facility] 16:45:00 16:45:00 pain x 2 r Specialties 392-4202- b l wks f7b-v74667 [facility] nn a8c1bb 2015-08-01 2015-08-01 Left side nullFl[facility] [place] 73e 01272-0 [facility] 16:45:00 16:45:00 pain x 2 r Specialties 87a-4e43- b l wks ec2-2fba78 [facility] nn a03e87 2015-08-01 2015-08-01 Left side null[facility] [place] 301 e77p1-3 Mem[facility] 16:45:00 16:45:00 pain x 2 r Specialties 7i4-784z- 8 l wks b50-87z136 [facility] 3o0261 2015-08-01 2015-08-01 Left side null[facility] [place] 302 g6291-7 [facility] 16:45:00 16:45:00 pain x 2 r Specialties 653-4c59- b l wks 23d-7072d5 [facility] im6707 2015-08-01 2015-08-01 Left side nullFl[facility] [place] 0eb 550p1-x [facility] 16:45:00 16:45:00 pain x 2 r Specialties 578-4fba- 8 l wks 125-tg3444 [facility] nn 4afa0a 2015-08-01 2015-08-01 Left side nullFl[facility] [place] a70 3513f-c [facility] 16:45:00 16:45:00 pain x 2 r Specialties 093-4e63- 8 l wks ea1-a0ce53 [facility] nn 1y2764 2015-08-01 2015-08-01 Left side nullFl[facility] [place] 432 27782-l [facility] 16:45:00 16:45:00 pain x 2 r Specialties 77a-4fdd- 8 l wks m41-v6z95o [facility] nn 8o191m 2015-08-01 2015-08-01 Left side nullFl[facility] [place] 9d8 7y382-0 [facility] 16:45:00 16:45:00 pain x 2 r Specialties 519-4dd3- 9 l wks dca-3313a8 [facility] nn gy031n 2015-08-01 2015-08-01 Left side nullFl[facility] [place] ee8 4c1e7-n [facility] 16:45:00 16:45:00 pain x 2 r Specialties 697-4938- a l wks 568-2cc89d [facility] nn 407878 6716-06-09 2015-08-01 Left side null[facility] [place] 127 9125d-6 [facility] 16:45:00 16:45:00 pain x 2 r Specialties 323-474f- 9 l wks x23-95494v [facility] nn e570e1 2015-08-01 2015-08-01 Left side nullFl[facility] [place] 432 34166-b [facility] 16:45:00 16:45:00 pain x 2 r Specialties 77a-4fdd- 8 l wks m62-p8u77p [facility] nn 8o878z 2015-08-01 2015-08-01 Left side nullFl[facility] [place] 73e 53487-1 [facility] 16:45:00 16:45:00 pain x 2 r Specialties 87a-4e43- b l wks ec2-2fba78 [facility] nn a03e87 2015-08-01 2015-08-01 Left side null[facility] [place] 853 4a304-5 [facility] 16:45:00 16:45:00 pain x 2 r Specialties x8k-3432- 8 l wks aaa-z6g047 [facility] nn 890646 8290-06-09 2015-08-01 Left side nullFl[facility] [place] 836 8167f-d [facility] 16:45:00 16:45:00 pain x 2 r Specialties 392-4202- b l wks j0h-q53347 [facility] nn a8c1bb 2015-08-01 2015-08-01 Left side nullFl[facility] [place] 301 e22q6-0 Mem[facility] 16:45:00 16:45:00 pain x 2 r Specialties 0c6-900j- 8 l wks m03-02n965 [facility] nn 0v2543 2015-08-01 2015-08-01 Left side nullFl[facility] [place] 6fd 6q88a-d [facility] 16:45:00 16:45:00 pain x 2 r Specialties 03e-49b5- 9 l wks 119-12b472 [facility] nn f634ed 2015-08-01 2015-08-01 Left side nullFl[facility] [place] a70 3513f-c [facility] 16:45:00 16:45:00 pain x 2 r Specialties 093-4e63- 8 l wks ea1-a0ce53 [facility] nn 4t3435 2015-08-01 2015-08-01 Left side nullFl[facility] [place] 625 4ks1x-2 [facility] 16:45:00 16:45:00 pain x 2 r Specialties c4r-080p- b l wks 5cb-f8bc02 [facility] nn 8eef3c 2015-08-01 2015-08-01 Left side nullFl[facility] [place] 0eb 070p3-n [facility] 16:45:00 16:45:00 pain x 2 r Specialties 578-4fba- 8 l wks 125-lw1407 Mi nn 4afa0a 2015-08-01 2015-08-01 Left side nullFl[facility] [place] 9d8 4r607-9 [facility] 16:45:00 16:45:00 pain x 2 r Specialties 519-4dd3- 9 l wks dca-3313a8 [facility] nn ow142y 2015-08-01 2015-08-01 Left side nullFl[facility] [place] 302 k2493-2 [facility] 16:45:00 16:45:00 pain x 2 r Specialties 653-4c59- b l wks 23d-7072d5 [facility] aleja sm6537 2015-08-01 2015-08-01 Left side nullFl[facility] [place] 127 9125d-6 [facility] 16:45:00 16:45:00 pain x 2 r Specialties 323-474f- 9 l wks b23-86140u [facility] nn e570e1 2015-08-01 2015-08-01 Left side nullFl[facility] [place] ee8 9k9t3-z [facility] 16:45:00 16:45:00 pain x 2 r Specialties 697-4938- a l wks 568-2cc89d [facility] nn 944285 8113-06-09 2015-08-01 Left side nullFl[facility] [place] 748 y9x33-0 [facility] 15:45:00 15:45:00 pain x 2 r Specialties bb9-45df- 8 l wks a76-9y7fc2 Mi nn 9304fa 2015-08-01 2015-08-01 Left side nullFl[facility] [place] 010 r4fwy-3 [facility] 15:45:00 15:45:00 pain x 2 r Specialties 89e-44f7- a l wks 7j0-0c3hzm Mi nn 7f83ff 2015-08-01 2015-08-01 Left side nullFl[facility] [place] 5b0 2k991-e [facility] 15:45:00 15:45:00 pain x 2 r Specialties bcc-4604- 8 l wks 5dc-7be72c Mi nn e90a16 2015-08-01 2015-08-01 Left side [facility] [place] d27 8dbcf-a [facility] 15:45:00 15:45:00 pain x 2 r Specialties fa1-472f- 8 l wks 682-8a9b5e Mi nn d7cccd 2015-08-01 2015-08-01 Left side nullFl[facility] [place] 8b5 50y49-c [facility] 15:45:00 15:45:00 pain x 2 r Specialties h5u-9m6h- b l wks 258-788796 Mi nn 382a4a 2015-08-01 2015-08-01 Left side [facility]Fl[facility] [place] 491 52cde-c [facility] 15:45:00 15:45:00 pain x 2 r Specialties 234-4043- b l wks 2z0-3co7g3 Mi nn 9706ab 2015-08-01 2015-08-01 Left side nullFl[facility] [place] e46 2te80-3 [facility] 15:45:00 15:45:00 pain x 2 r Specialties 90e-46be- a l wks 382-0349f6 Mi nn a0d3a5 2015-08-01 2015-08-01 Left side nullFl[facility] [place] a0a 66262-y [facility] 15:45:00 15:45:00 pain x 2 r Specialties 1h0-5205- a l wks 38b-79792w Mi nn 2c6af0 2015-08-01 2015-08-01 Left side nullFl[facility] [place] yousif k226x-4 [facility] 15:45:00 15:45:00 pain x 2 r Specialties 8k8-3r9b- 9 l wks u6u-8kp4b7 Mi nn 6p9843 2015-08-01 2015-08-01 Left side nullFl[facility] [place] 998 x7680-6 [facility] 15:45:00 15:45:00 pain x 2 r Specialties u23-5k7x- 8 l wks 4f9-4zs11s Mi nn 4h9307 2015-08-01 2015-08-01 Left side nullFl[facility] [place] 757 08x18-1 [facility] 15:45:00 15:45:00 pain x 2 r Specialties 79e-4535- 8 l wks 996-c24f0d Mi nn 6bbf21 2015-08-01 2015-08-01 Left side [facility]Fl[facility] [place] 606 s4421-0 [facility] 15:45:00 15:45:00 pain x 2 r Specialties j5f-8h56- 8 l wks 0cc-z0p140 Mi nn 582b9e 2015-08-01 2015-08-01 Left side nullFl[facility] [place] 748 d9i21-2 [facility] 15:45:00 15:45:00 pain x 2 r Specialties bb9-45df- 8 l wks n56-2f7vh2 Mi nn 9304fa 2015-08-01 2015-08-01 Left side nullFl[facility] [place] a0a 88517-f [facility] 15:45:00 15:45:00 pain x 2 r Specialties 6z4-9720- a l wks 38b-31559c Mi nn 2c6af0 2015-08-01 2015-08-01 Left side [facility] [place] 5b0 6s399-f [facility] 15:45:00 15:45:00 pain x 2 r Specialties bcc-4604- 8 l wks 5dc-7be72c Mi nn e90a16 2015-08-01 2015-08-01 Left side nullFl[facility] [place] 010 d9gpl-1 [facility] 15:45:00 15:45:00 pain x 2 r Specialties 89e-44f7- a l wks 0c0-3t1pgl Mi nn 7f83ff 2015-08-01 2015-08-01 Left side null[facility] [place] e46 6ts35-9 [facility] 15:45:00 15:45:00 pain x 2 r Specialties 90e-46be- a l wks 382-0349f6 Mi nn a0d3a5 2015-08-01 2015-08-01 Left side [facility]Fl[facility] [place] 998 w9050-9 [facility] 15:45:00 15:45:00 pain x 2 r Specialties u70-0q7a- 8 l wks 8e5-6zl45v Mi nn 9j1990 2015-08-01 2015-08-01 Left side nullFl[facility] [place] 757 98y53-1 [facility] 15:45:00 15:45:00 pain x 2 r Specialties 79e-4535- 8 l wks 996-c24f0d Mi nn 6bbf21 2015-08-01 2015-08-01 Left side nullFl[facility] [place] d27 8dbcf-a [facility] 15:45:00 15:45:00 pain x 2 r Specialties fa1-472f- 8 l wks 682-8a9b5e [facility] nn d7cccd 2015-08-01 2015-08-01 Left side nullFl[facility] [place] 8b5 47h80-d [facility] 15:45:00 15:45:00 pain x 2 r Specialties c2c-4y0q- b l wks 258-828326 [facility] nn 382a4a 2015-08-01 2015-08-01 Left side nullFl[facility] [place] 491 52cde-c [facility] 15:45:00 15:45:00 pain x 2 r Specialties 234-4043- b l wks 4s6-2hd3p8 Mi nn 9706ab 2015-08-01 2015-08-01 Left side nullFl[facility] [place] yousif z772t-1 [facility] 15:45:00 15:45:00 pain x 2 r Specialties 3h1-2a4j- 9 l wks u2c-6tg0i6 Mi nn 9h7358 2015-08-01 2015-08-01 Left side nullFl[facility] [place] 606 z3088-6 [facility] 15:45:00 15:45:00 pain x 2 r Specialties e5o-5e98- 8 l wks 0cc-m5z378 [facility] nn 582b9e 2015-08-01 2015-08-01 [facility] [place] 5074 91 eClinic 10:45:00 10:45:00 [facility] Special[facility] es 2015-07-23 2015-07-23 side nullFlavo [place] 8e14b 519-3 [facility] 17:21:00 17:21:00 hurting r Specialties b92-111w-8 l 852-5i617m Mi nn 767619 6357-05-31 2015-07-23 side nullFlavo [place] a82e6 cf8-c [facility] 17:21:00 17:21:00 hurting r Specialties 06d-48e7-8 l u50-68273g Mi nn a04b66 2015-07-23 2015-07-23 side [facility]Fl[facility] [place] faae5 3d2-8 [facility] 17:21:00 17:21:00 hurting r Specialties 293-4f60-9 l ef0-0m1072 Mi nn 02cf05 2015-07-23 2015-07-23 side nullFl[facility] [place] aeb41 151-f [facility] 17:21:00 17:21:00 hurting r Specialties ad8-48cc-8 l 2ea-3x7761 Mi nn be1a3d 2015-07-23 2015-07-23 side nullFl[facility] [place] d2383 2e2-9 [facility] 17:21:00 17:21:00 hurting r Specialties 836-4e72-b l o9t-45v025 Mi nn r2w886 2015-07-23 2015-07-23 side nullFl[facility] [place] [address] a70-d [facility] 17:21:00 17:21:00 hurting r Specialties 17a-4235-a l 015-78bf55 Mi nn fedfaf 2015-07-23 2015-07-23 side nullFl[facility] [place] 06ad4 8d9-e [facility] 17:21:00 17:21:00 [facility] Specialties v5z-3p30-i l 630-4f3ef7 Mi nn 4fe6ba 2015-07-23 2015-07-23 side nullFlavo [place] d4ca5 ffa-2 [facility] 17:21:00 17:21:00 [facility] Specialties d0h-1d29-d l 4r8-7n251m Mi nn cedfb5 2015-07-23 2015-07-23 side nullFlavo [place] d34c9 af0-8 [facility] 17:21:00 17:21:00 [facility] Specialties 1c0-0a59-p l g5l-1d03m5 Mi nn cde0d1 2015-07-23 2015-07-23 side nullFlavo [place] 7d6b1 6a4-b [facility] 17:21:00 17:21:00 [facility]ties d7z-4596-k l 9t9-8femz6 Mi nn [id number] 2015-07-23 2015-07-23 side nullFlavo [place] c6565 2ee-3 [facility] 17:21:00 17:21:00 [facility] Specialties 0k8-3m61-7 l v9f-f39n98 Mi nn [id number] 5583-05-31 2015-07-23 side nullFlavo [place] d5bdb c6a-c [facility] 17:21:00 17:21:00 [facility] Specialties 5g1-21s2-4 l 7y4-z27798 Mi nn 93b8f5 2015-07-23 2015-07-23 side nullFlavo [place] 8c289 a75-c [facility] 17:21:00 17:21:00 [facility] Specialties 005-46ab-a l 3bf-3h2836 Mi nn [id number] 2015-07-23 2015-07-23 side nullFlavo [place] 7d6b1 6a4-b [facility] 17:21:00 17:21:00 [facility] Specialties n0u-7133-b l 9m4-2yzlh5 Mi nn [id number] 2015-07-23 2015-07-23 side nullFlavo [place] d2383 2e2-9 [facility] 17:21:00 17:21:00 [facility] Specialties 836-4e72-b l i4a-95i129 Mi nn [id number] 2015-07-23 2015-07-23 side nullFlavo [place] a82e6 cf8-c [facility] 17:21:00 17:21:00 [facility] Specialties 06d-48e7-8 l n81-85634r Mi nn a04b66 2015-07-23 2015-07-23 side nullFlavo [place] aeb41 151-f [facility] 17:21:00 17:21:00 [facility] Specialties ad8-48cc-8 l 2ea-6l0501 Mi nn be1a3d 2015-07-23 2015-07-23 side nullFlavo [place] [address] a70-d [facility] 17:21:00 17:21:00 [facility] Specialties 17a-4235-a l 015-78bf55 Mi nn fedfaf 2015-07-23 2015-07-23 side nullFlavo [place] 8e14b 519-3 [facility] 17:21:00 17:21:00 [facility] Specialties y32-321v-3 l [id number] Mi nn [id number] 1281-05-31 2015-07-23 side nullFlavo [place] d34c9 af0-8 [facility] 17:21:00 17:21:00 [facility] Specialties 7c1-4z64-d l v1p-0w70n9 Mi nn cde0d1 2015-07-23 2015-07-23 side nullFlavo [place] faae5 3d2-8 [facility] 17:21:00 17:21:00 [facility] Specialties 293-4f60-9 l ef0-9o9019 Mi nn 02cf05 2015-07-23 2015-07-23 side nullFlavo [place] d4ca5 ffa-2 [facility] 17:21:00 17:21:00 [facility] Specialties j8z-0i27-o l 1i8-6m357i Mi nn cedfb5 2015-07-23 2015-07-23 side nullFlavo [place] c6565 2ee-3 [facility] 17:21:00 17:21:00 [facility] Specialties 2p1-4b01-5 l c9s-k98r94 Mi nn [id number] 2355-05-31 2015-07-23 side nullFlavo [place] 06ad4 8d9-e [facility] 17:21:00 17:21:00 [facility] Specialties d2w-6q73-b l 630-4f3ef7 Mi nn 4fe6ba 2015-07-23 2015-07-23 side nullFlavo [place] 8c289 a75-c [facility] 17:21:00 17:21:00 [facility] Specialties 005-46ab-a l 3bf-9e4990 Mi nn [id number] 2015-07-23 2015-07-23 side nullFlavo [place] d5bdb c6a-c [facility] 17:21:00 17:21:00 [facility] Specialties 6w3-70i0-7 l 6j0-x02464 Mi nn 93b8f5 2015-07-23 2015-07-23 side nullFlavo [place] bdb6f 9a7-3 [facility] 16:21:00 16:21:00 [facility] r Specialties s06-37n0-p l [id number] Mi nn 7a2bdd 2015-07-23 2015-07-23 side nullFlavo [place] 2208a 3ee-f [facility] 16:21:00 16:21:00 [facility] Specialties 2t3-09x7-i l 2e6-4u0jkx Mi nn 7c8fc0 2015-07-23 2015-07-23 side nullFlavo [place] [address] d2a-4 [facility] 16:21:00 16:21:00 [facility] Specialties y8s-68te-1 l daf-i2469d Mi nn e24dcf 2015-07-23 2015-07-23 side nullFlavo [place] f04e9 e4e-7 [facility] 16:21:00 16:21:00 [facility] Specialties 1v3-72mu-f l 3y9-0pw015 Mi nn f8cebb 2015-07-23 2015-07-23 side nullFlavo [place] [address] 7fd-b [facility] 16:21:00 16:21:00 [facility] r Specialties 42d-463d-a l 17e-663d98 Mi nn [id number] 2015-07-23 2015-07-23 side nullFlavo [place] d8e2a 5c2-4 [facility] 16:21:00 16:21:00 [facility] Specialties fa7-44f5-b l 14d-05727q Mi nn 4e5c9d 2015-07-23 2015-07-23 side nullFlavo [place] 5b0f8 312-8 [facility] 16:21:00 16:21:00 hurting r Specialties l37-8915-5 l df2-b8dfd4 Mi nn f9e4a0 2015-07-23 2015-07-23 side nullFlavo [place] 6507e 421-1 [facility] 16:21:00 16:21:00 hurting r Specialties 8ad-413b-a l 1d1-68237x Mi nn 7ed9ea 2015-07-23 2015-07-23 side [place]Fl[place] b8a6d b31-9 [facility] 16:21:00 16:21:00 hurting r Specialties ed2-4fa3-b l l1m-8zb472 Mi nn e67e61 2015-07-23 2015-07-23 side nullFlavo [place] 459a0 d2b-2 [facility] 16:21:00 16:21:00 hurting r Specialties 93b-4f25-9 l p3c-01f002 Mi nn d2f8f1 2015-07-23 2015-07-23 side nullFlavo [place] 31a04 59b-9 [facility] 16:21:00 16:21:00 hurting r Specialties l45-8b74-8 l 11c-0d2ab3 Mi nn 3bebc4 2015-07-23 2015-07-23 side nullFlavo [place] 174ad 0e0-e [facility] 16:21:00 16:21:00 hurting r Specialties 377-4a0f-9 l 265-dfdb46 Mi nn 0d224p 2015-07-23 2015-07-23 side nullFlavo [place] 5c0f2 784-5 [facility] 16:21:00 16:21:00 hurting r Specialties 67e-438b-a l 335-152c1c Mi nn f3bef0 2015-07-23 2015-07-23 side nullFlavo [place] 2208a 3ee-f [facility] 16:21:00 16:21:00 hurting r Specialties 1n4-02q7-n l 2p5-7h3exh Mi nn 7c8fc0 2015-07-23 2015-07-23 side nullFlavo [place] b8a6d b31-9 [facility] 16:21:00 16:21:00 hurting r Specialties ed2-4fa3-b l a5z-8wg431 Mi nn e67e61 2015-07-23 2015-07-23 side nullFlavo [place] f04e9 e4e-7 [facility] 16:21:00 16:21:00 hurting r Specialties 4n5-12cc-b l 2f5-9oq143 Mi nn f8cebb 2015-07-23 2015-07-23 side nullFlavo [place] bdb6f 9a7-3 [facility] 16:21:00 16:21:00 hurting r Specialties n67-63l5-w l 815-8045f9 Mi nn 7a2bdd 2015-07-23 2015-07-23 side nullFlavo [place] [address] d2a-4 [facility] 16:21:00 16:21:00 hurting r Specialties v9y-83qq-1 l daf-n0799y Mi nn e24dcf 2015-07-23 2015-07-23 side nullFlavo [place] 6507e 421-1 [facility] 16:21:00 16:21:00 hurting r Specialties 8ad-413b-a l 4p7-63753c Mi nn 7ed9ea 2015-07-23 2015-07-23 side nullFl[facility] [place] 31a04 59b-9 [facility] 16:21:00 16:21:00 hurting r Specialties p67-6v29-0 l 11c-0d2ab3 Mi nn 3bebc4 2015-07-23 2015-07-23 side nullFl[facility] [place] 174ad 0e0-e [facility] 16:21:00 16:21:00 hurting r Specialties 377-4a0f-9 l 265-dfdb46 Mi nn 7i342n 2015-07-23 2015-07-23 side nullFlavo [place] 472ba 7fd-b [facility] 16:21:00 16:21:00 hurting r Specialties 42d-463d-a l 17e-663d98 Mi nn 108a44 2015-07-23 2015-07-23 side nullFlavo [place] d8e2a 5c2-4 [facility] 16:21:00 16:21:00 hurting r Specialties fa7-44f5-b l 14d-96363z Mi nn 4e5c9d 2015-07-23 2015-07-23 side nullFl[facility] [place] 5b0f8 312-8 [facility] 16:21:00 16:21:00 hurting r Specialties o88-7028-6 l df2-b8dfd4 Mi nn f9e4a0 2015-07-23 2015-07-23 side nullFlavo [place] 459a0 d2b-2 [facility] 16:21:00 16:21:00 hurting r Specialties 93b-4f25-9 l f2u-30y846 Mi nn d2f8f1 2015-07-23 2015-07-23 side nullFlavo [place] 5c0f2 784-5 [facility] 16:21:00 16:21:00 hurting r Specialties 67e-438b-a l 335-152c1c Mi nn f3bef0 2015-07-23 2015-07-23 Outpatient [facility] [place] 5066 22 eClinic 11:21:00 11:21:00 [facility] Specialti es 2015-07-03 2015-07-03 Rx nullFlavo [place] 9e77d 5e7-3 [facility] 17:00:00 17:00:00 r Specialties dd3-41b0-8 l 335-6a3c5e Mi nn b2b07d 2015-07-03 2015-07-03 Rx nullFlavo [place] 6e37e 408-b [facility] 17:00:00 17:00:00 r Specialties 771-4268-8 l 0j8-e04g38 Mi nn 55o038 2015-07-03 2015-07-03 Rx nullFlavo [place] 7a38e c7e-4 [facility] 17:00:00 17:00:00 r Specialties 866-43be-b l 27a-7d77a9 Mi nn 901c70 2015-07-03 2015-07-03 Rx nullFlavo [place] 759f8 5bd-e [facility] 17:00:00 17:00:00 r Specialties a21-2lb1-j l 790-9b7f9f Mi nn 086e5c 2015-07-03 2015-07-03 Rx nullFlavo [place] 71192 27e-b [facility] 17:00:00 17:00:00 r Specialties 695-4de0-9 l 1b0-s77gau Mi nn 1x3634 2015-07-03 2015-07-03 Rx nullFlavo [place] 8f627 1c8-d [facility] 17:00:00 17:00:00 r Specialties a23-700l-6 l 80a-822328 Mi nn 056114 0742-05-11 2015-07-03 Rx nullFlavo [place] 58be9 bdf-8 [facility] 17:00:00 17:00:00 r Specialties w99-8xu9-z l 71e-z3a082 Im nn 1b79d5 2015-07-03 2015-07-03 Rx nullFlavo [place] 9d731 baa-4 [facility] 17:00:00 17:00:00 r Specialties 98a-4566-b l cbf-df61a6 Mi nn 03e08f 2015-07-03 2015-07-03 Rx nullFlavo [place] 78d99 2e1-1 [facility] 17:00:00 17:00:00 r Specialties 02b-479c-8 l o13-6v14j6 Mi nn ea3bfc 2015-07-03 2015-07-03 Rx nullFlavo [place] 07fc1 a74-7 [facility] 17:00:00 17:00:00 r Specialties 688-490f-9 l 988-e093bc Mi nn 6bcddb 2015-07-03 2015-07-03 Rx nullFlavo [place] 09e46 0fc-4 [facility] 17:00:00 17:00:00 r Specialties n64-7x69-8 l 595-3d4cc4 Mi nn 06642c 2015-07-03 2015-07-03 Rx nullFlavo [place] 40366 6de-9 [facility] 17:00:00 17:00:00 r Specialties 244-42f5-9 l 6k4-aa2492 Mi nn 54767q 2015-07-03 2015-07-03 Rx nullFlavo [place] c4e68 e46-9 [facility] 17:00:00 17:00:00 r Specialties n1c-66ra-3 l 8y1-n01s01 Mi nn c476e0 2015-07-03 2015-07-03 Rx nullFlavo [place] 07fc1 a74-7 [facility] 17:00:00 17:00:00 r Specialties 688-490f-9 l 988-e093bc Mi nn 6bcddb 2015-07-03 2015-07-03 Rx nullFlavo [place] 28569 27e-b [facility] 17:00:00 17:00:00 r Specialties 695-4de0-9 l 1h6-o14bkw Mi nn 2e0353 2015-07-03 2015-07-03 Rx nullFlavo [place] 6e37e 408-b [facility] 17:00:00 17:00:00 r Specialties 771-4268-8 l 0t7-v28r66 Mi nn 96h142 2015-07-03 2015-07-03 Rx nullFlavo [place] 759f8 5bd-e [facility] 17:00:00 17:00:00 r Specialties r83-1gd6-x l 790-9b7f9f Mi nn 086e5c 2015-07-03 2015-07-03 Rx nullFlavo [place] 8f627 1c8-d [facility] 17:00:00 17:00:00 r Specialties p32-865t-4 l 80a-225618 Mi nn 594087 6703-05-11 2015-07-03 Rx nullFlavo [place] 9e77d 5e7-3 [facility] 17:00:00 17:00:00 r Specialties dd3-41b0-8 l 335-6a3c5e Mi nn b2b07d 2015-07-03 2015-07-03 Rx nullFlavo [place] 78d99 2e1-1 [facility] 17:00:00 17:00:00 r Specialties 02b-479c-8 l d78-5i51p9 Mi nn ea3bfc 2015-07-03 2015-07-03 Rx nullFlavo [place] 7a38e c7e-4 [facility] 17:00:00 17:00:00 r Specialties 866-43be-b l 27a-7d77a9 Mi nn 901c70 2015-07-03 2015-07-03 Rx nullFlavo [place] 9d731 baa-4 [facility] 17:00:00 17:00:00 r Specialties 98a-4566-b l cbf-df61a6 Mi nn 03e08f 2015-07-03 2015-07-03 Rx nullFlavo [place] 09e46 0fc-4 [facility] 17:00:00 17:00:00 r Specialties g49-3v29-1 l 595-3d4cc4 Mi nn 20192b 2015-07-03 2015-07-03 Rx nullFlavo [place] 58be9 bdf-8 [facility] 17:00:00 17:00:00 r Specialties j71-8lz3-o l 71e-c0j379 Mi nn 1b79d5 2015-07-03 2015-07-03 Rx nullFlavo [place] c4e68 e46-9 [facility] 17:00:00 17:00:00 r Specialties u9w-36se-7 l 2h5-m40h96 Mi nn c476e0 2015-07-03 2015-07-03 Rx nullFl[facility] [place] 14176 6de-9 [facility] 17:00:00 17:00:00 r Specialties 244-42f5-9 l 4h6-gs6804 Mi nn 01093m 2015-07-03 2015-07-03 Rx nullFl[facility] [place] e5dc3 597-a [facility] 16:00:00 16:00:00 r Specialties 53d-4c6a-8 l 9aa-a7191w Mi nn 023b4a 2015-07-03 2015-07-03 Rx nullFlavo [place] 2b3bf 2a2-d [facility] 16:00:00 16:00:00 r Specialties 65d-4cf2-a l 2t9-94z4y2 Mi nn e95c24 2015-07-03 2015-07-03 Rx nullFlavo [place] c62e9 da0-8 [facility] 16:00:00 16:00:00 r Specialties 779-4149-b l 499-4dadc4 Mi nn afcb80 2015-07-03 2015-07-03 Rx nullFlavo [place] 4ec84 cd7-6 [facility] 16:00:00 16:00:00 r Specialties 076-4559-9 l 010-ad036u Mi nn e849e0 2015-07-03 2015-07-03 Rx nullFlavo [place] 7bc9e f98-f [facility] 16:00:00 16:00:00 r Specialties 2v9-796j-k l fc2-007895 Mi nn 6961fd 2015-07-03 2015-07-03 Rx nullFlavo [place] ff716 eec-8 [facility] 16:00:00 16:00:00 r Specialties r7m-7l2z-0 l 6m2-19013g Mi nn 13c61a 2015-07-03 2015-07-03 Rx nullFlavo [place] 6e656 621-d [facility] 16:00:00 16:00:00 r Specialties 68c-4f4a-8 l 89d-7f1c37 [facility] nn f4da18 2015-07-03 2015-07-03 Rx nullFlavo [place] a0bdd 070-5 [facility] 16:00:00 16:00:00 r Specialties abb-4076-9 l ef6-438e9e [facility] nn 96cbd2 2015-07-03 2015-07-03 Rx nullFlavo [place] 1cc0d 60f-c [facility] 16:00:00 16:00:00 r Specialties v1n-59n8-7 l 97e-6a8ec4 [facility] nn 60b363 2015-07-03 2015-07-03 Rx nullFlavo [place] f30d6 abc-6 [facility] 16:00:00 16:00:00 r Specialties 6a4-02n9-2 l m50-or14b4 [facility] nn u25117 2015-07-03 2015-07-03 Rx nullFlavo [place] f4665 fc0-f [facility] 16:00:00 16:00:00 r Specialties afa-4bee-8 l 78e-g64390 [facility] nn 7da1a0 2015-07-03 2015-07-03 Rx nullFlavo [place] eae51 477-5 [facility] 16:00:00 16:00:00 r Specialties y6b-620v-2 l 155-q5414t [facility] nn 1702ab 2015-07-03 2015-07-03 Rx nullFlavo [place] a8dbf 7a9-7 [facility] 16:00:00 16:00:00 r Specialties m23-29p3-z l 894-b00ee9 [facility] nn c9b56c 2015-07-03 2015-07-03 Rx nullFlavo [place] 2eb55 fde-8 [facility] 16:00:00 16:00:00 r Specialties 62a-4c93-a l p80-271j50 [facility] nn 53u576 2015-07-03 2015-07-03 Rx nullFlavo [place] c62e9 da0-8 [facility] 16:00:00 16:00:00 r Specialties 779-4149-b l 499-4dadc4 Mi nn afcb80 2015-07-03 2015-07-03 Rx nullFlavo [place] f30d6 abc-6 [facility] 16:00:00 16:00:00 r Specialties 2q1-28n0-2 l w83-hr88v1 Mi nn r45659 2015-07-03 2015-07-03 Rx nullFlavo [place] 7bc9e f98-f [facility] 16:00:00 16:00:00 r Specialties 7h2-855y-j l fc2-273259 Mi nn 6961fd 2015-07-03 2015-07-03 Rx nullFlavo [place] 2b3bf 2a2-d [facility] 16:00:00 16:00:00 r Specialties 65d-4cf2-a l 2e4-09l6m5 Mi nn e95c24 2015-07-03 2015-07-03 Rx nullFlavo [place] e5dc3 597-a [facility] 16:00:00 16:00:00 r Specialties 53d-4c6a-8 l 9aa-c9753z Mi nn 023b4a 2015-07-03 2015-07-03 Rx nullFlavo [place] 4ec84 cd7-6 [facility] 16:00:00 16:00:00 r Specialties 076-4559-9 l 010-cv880x [facility] nn e849e0 2015-07-03 2015-07-03 Rx nullFlavo [place] 1cc0d 60f-c [facility] 16:00:00 16:00:00 r Specialties r1w-52z7-4 l 97e-6a8ec4 [facility] nn 26p704 2015-07-03 2015-07-03 Rx nullFlavo [place] eae51 477-5 [facility] 16:00:00 16:00:00 r Specialties a7q-408g-2 l 155-c8284a Mi nn 1702ab 2015-07-03 2015-07-03 Rx nullFlavo [place] a8dbf 7a9-7 [facility] 16:00:00 16:00:00 r Specialties a84-93f4-n l 894-b00ee9 Mi nn c9b56c 2015-07-03 2015-07-03 Rx nullFlavo [place] ff716 eec-8 [facility] 16:00:00 16:00:00 r Specialties e3a-9b5a-3 l 7g7-28984y Mi nn 13c61a 2015-07-03 2015-07-03 Rx nullFlavo [place] 6e656 621-d [facility] 16:00:00 16:00:00 r Specialties 68c-4f4a-8 l 89d-7f1c37 Mi nn f4da18 2015-07-03 2015-07-03 Rx nullFlavo [place] a0bdd 070-5 [facility] 16:00:00 16:00:00 r Specialties abb-4076-9 l ef6-438e9e Mi nn 96cbd2 2015-07-03 2015-07-03 Rx nullFlavo [place] f4665 fc0-f [facility] 16:00:00 16:00:00 r Specialties afa-4bee-8 l 78e-x88838 Mi nn 7da1a0 2015-07-03 2015-07-03 Rx nullFlavo [place] 2eb55 fde-8 [facility] 16:00:00 16:00:00 r Specialties 62a-4c93-a l g97-219h29 Mi nn 07r595 2015-07-03 2015-07-03 Out[facility] [place] 4953 30 eClinic 11:00:00 11:00:00 [facility] Specialti es 2015-06-10 2015-06-10 Appt nullFlavo [place] 75a50 49d-1 [facility] 17:50:00 17:50:00 Request r Specialties dff-441c-a l 7ab-4d2a44 Mi nn 9583a2 2015-06-10 2015-06-10 Appt nullFlavo [place] eff23 57a-f [facility] 17:50:00 17:50:00 Request r Specialties 7ba-4710-9 l 30e-199ba8 Mi nn b7b1c8 2015-06-10 2015-06-10 Appt nullFlavo [place] 2f164 ed3-8 [facility] 17:50:00 17:50:00 Request r Specialties 62b-49e8-b l 76e-883a55 Mi nn 4c59c5 2015-06-10 2015-06-10 Appt nullFlavo [place] b3ec7 dc8-0 [facility] 17:50:00 17:50:00 Request r Specialties 713-472d-b l 197-73752r Mi nn da5cc5 2015-06-10 2015-06-10 Appt nullFlavo [place] 2678d 4ca-1 [facility] 17:50:00 17:50:00 Request r Specialties t20-56lu-m l 0be-de2f05 Mi nn 38ca5f 2015-06-10 2015-06-10 Appt nullFlavo [place] 1735b 10d-5 [facility] 17:50:00 17:50:00 Request r Specialties ddf-4055-8 l 375-9w271e Mi nn q5244t 2015-06-10 2015-06-10 Appt nullFlavo [place] 45fb4 507-5 [facility] 17:50:00 17:50:00 Request r Specialties 76d-43e3-9 l 2h6-f88kq5 Mi nn 56e9c6 2015-06-10 2015-06-10 Appt nullFlavo [place] d5941 6b2-6 [facility] 17:50:00 17:50:00 Request r Specialties ec9-46a5-b l d7p-0g7k65 Mi nn 02bf56 2015-06-10 2015-06-10 Appt nullFlavo [place] dd830 4d3-4 [facility] 17:50:00 17:50:00 Request r Specialties q7o-4122-2 l h08-1g881p Mi nn e0b5a9 2015-06-10 2015-06-10 Appt nullFlavo [place] a187a e6d-1 [facility] 17:50:00 17:50:00 Request r Specialties ec6-45f3-9 l baf-b4be4a Mi nn 646be9 2015-06-10 2015-06-10 Appt nullFlavo [place] f3223 a7f-c [facility] 17:50:00 17:50:00 Request r Specialties 2r7-95i1-d l de0-cfd75d Mi nn 437891 3383-04-18 2015-06-10 Appt nullFlavo [place] 73bcf a2f-1 [facility] 17:50:00 17:50:00 Request r Specialties 6ad-436e-8 l 414-619662 Mi nn d9aebf 2015-06-10 2015-06-10 Appt nullFlavo [place] b5539 25b-d [facility] 17:50:00 17:50:00 Request r Specialties 5ea-43d3-8 l 0da-3x9009 Mi nn 2617cd 2015-06-10 2015-06-10 Appt nullFlavo [place] a187a e6d-1 [facility] 17:50:00 17:50:00 Request r Specialties ec6-45f3-9 l baf-b4be4a Mi nn 646be9 2015-06-10 2015-06-10 Appt nullFlavo [place] 2678d 4ca-1 [facility] 17:50:00 17:50:00 Request r Specialties a29-10ei-w l 0be-de2f05 Mi nn 38ca5f 2015-06-10 2015-06-10 Appt nullFlavo [place] eff23 57a-f [facility] 17:50:00 17:50:00 Request r Specialties 7ba-4710-9 l 30e-199ba8 Mi nn b7b1c8 2015-06-10 2015-06-10 Appt nullFlavo [place] b3ec7 dc8-0 [facility] 17:50:00 17:50:00 Request r Specialties 713-472d-b l 197-66896p Mi nn da5cc5 2015-06-10 2015-06-10 Appt nullFlavo [place] 1735b 10d-5 [facility] 17:50:00 17:50:00 Request r Specialties ddf-4055-8 l 375-7z163b Mi nn s4928d 2015-06-10 2015-06-10 Appt nullFlavo [place] 75a50 49d-1 [facility] 17:50:00 17:50:00 Request r Specialties dff-441c-a l 7ab-4d2a44 Mi nn 9583a2 2015-06-10 2015-06-10 Appt nullFlavo [place] dd830 4d3-4 [facility] 17:50:00 17:50:00 Request r Specialties w7h-5990-3 l g36-0t880w Mi nn e0b5a9 2015-06-10 2015-06-10 Appt nullFlavo [place] 2f164 ed3-8 [facility] 17:50:00 17:50:00 Request r Specialties 62b-49e8-b l 76e-883a55 Mi nn 4c59c5 2015-06-10 2015-06-10 Appt nullFlavo [place] d5941 6b2-6 [facility] 17:50:00 17:50:00 Request r Specialties ec9-46a5-b l l4f-4n7r33 Mi nn 02bf56 2015-06-10 2015-06-10 Appt nullFlavo [place] f3223 a7f-c [facility] 17:50:00 17:50:00 Request r Specialties 3h2-40q7-t l de0-cfd75d Mi nn 294475 4928-04-18 2015-06-10 Appt nullFlavo [place] 45fb4 507-5 [facility] 17:50:00 17:50:00 Request r Specialties 76d-43e3-9 l 5z9-y46uc9 Mi nn 56e9c6 2015-06-10 2015-06-10 Appt nullFlavo [place] b5539 25b-d [facility] 17:50:00 17:50:00 Request r Specialties 5ea-43d3-8 l 0da-2r6154 Mi nn 2617cd 2015-06-10 2015-06-10 Appt nullFlavo [place] 73bcf a2f-1 [facility] 17:50:00 17:50:00 Request r Specialties 6ad-436e-8 l 414-033192 Mi nn d9aebf 2015-06-10 2015-06-10 Appt nullFlavo [place] de49f f88-f [facility] 16:50:00 16:50:00 Request r Specialties 92f-43f2-9 l 5v2-5iq60j Mi nn 456cf0 2015-06-10 2015-06-10 Appt nullFlavo [place] b7ffd f57-c [facility] 16:50:00 16:50:00 Request r Specialties 0w4-5601-n l eaf-418b5a Mi nn 4df3f0 2015-06-10 2015-06-10 Appt nullFlavo [place] 61be8 123-8 [facility] 16:50:00 16:50:00 Request r Specialties 7ff-4d3c-b l 0q7-3z3jmu Mi nn 431911 2332-04-18 2015-06-10 Appt nullFlavo [place] b395a 9bc-5 [facility] 16:50:00 16:50:00 Request r Specialties n51-749t-0 l 5w5-499m45 Mi nn 226a1a 2015-06-10 2015-06-10 Appt nullFlavo [place] 06333 ded-a [facility] 16:50:00 16:50:00 Request r Specialties 16e-4ba4-9 l 35c-9fdede Mi nn 135bba 2015-06-10 2015-06-10 Appt nullFlavo [place] 22ae6 936-e [facility] 16:50:00 16:50:00 Request r Specialties n12-3z2l-9 l 91e-2d95b9 Mi nn 9aeb87 2015-06-10 2015-06-10 Appt nullFlavo [place] 7336d d3d-5 [facility] 16:50:00 16:50:00 Request r Specialties 54d-4a58-9 l 71e-9a7f68 Mi nn 116d2d 2015-06-10 2015-06-10 Appt nullFlavo [place] 40da1 ea6-0 [facility] 16:50:00 16:50:00 Request r Specialties 5m8-53n6-z l 24a-9be5f2 Mi nn 71ba6a 2015-06-10 2015-06-10 Appt nullFlavo [place] 2aeb5 7dd-2 [facility] 16:50:00 16:50:00 Request r Specialties a2g-168d-0 l j44-t38092 Mi nn e08622 2015-06-10 2015-06-10 Appt nullFlavo [place] 5cf11 ccc-2 [facility] 16:50:00 16:50:00 Request r Specialties 8o6-78d4-9 l ca3-kqk325 Mi nn 9k2994 2015-06-10 2015-06-10 Appt nullFlavo [place] 98eab 27e-f [facility] 16:50:00 16:50:00 Request r Specialties g1t-4151-z l efb-207ec0 Mi nn ace2cd 2015-06-10 2015-06-10 Appt nullFlavo [place] 1064c 2ff-2 [facility] 16:50:00 16:50:00 Request r Specialties cb5-4788-a l o06-ceb339 [facility] nn b1a931 2015-06-10 2015-06-10 Appt nullFlavo [place] f421e fa4-1 [facility] 16:50:00 16:50:00 Request r Specialties w89-6n45-5 l 997-8b8695 [facility] nn 4t704s 2015-06-10 2015-06-10 Appt nullFlavo [place] bff2a aeb-d [facility] 16:50:00 16:50:00 Request r Specialties 23d-471a-b l 07e-144218 [facility] nn 367c12 2015-06-10 2015-06-10 Appt nullFlavo [place] 9eba3 4c1-f [facility] 16:50:00 16:50:00 Request r Specialties ed0-4a0f-9 l 441-9451e6 [facility] nn be939b 2015-06-10 2015-06-10 Appt nullFlavo [place] b395a 9bc-5 [facility] 16:50:00 16:50:00 Request r Specialties v43-524t-3 l 8u0-236z31 [facility] 226a1a 2015-06-10 2015-06-10 Appt nullFlavo [place] de49f f88-f [facility] 16:50:00 16:50:00 Request r Specialties 92f-43f2-9 l 1h2-6ff59e [facility] 456cf0 2015-06-10 2015-06-10 Appt nullFlavo [place] 98eab 27e-f [facility] 16:50:00 16:50:00 Request r Specialties f3t-8376-f l efb-207ec0 [facility] ace2cd 2015-06-10 2015-06-10 Appt nullFlavo [place] 22ae6 936-e [facility] 16:50:00 16:50:00 Request r Specialties d95-3a8r-8 l 91e-2d95b9 [facility] 9aeb87 2015-06-10 2015-06-10 Appt nullFlavo [place] 61be8 123-8 [facility] 16:50:00 16:50:00 Request r Specialties 7ff-4d3c-b l 4p1-2f8cce Mi nn 087499 6740-04-18 2015-06-10 Appt nullFlavo [place] b7ffd f57-c [facility] 16:50:00 16:50:00 Request r Specialties 5j9-8759-h l eaf-418b5a Mi nn 4df3f0 2015-06-10 2015-06-10 Appt nullFlavo [place] [address] ded-a [facility] 16:50:00 16:50:00 Request r Specialties 16e-4ba4-9 l 35c-9fdede Mi nn 135bba 2015-06-10 2015-06-10 Appt nullFlavo [place] 5cf11 ccc-2 [facility] 16:50:00 16:50:00 Request r Specialties 7z2-77e7-8 l ca3-lvh432 Mi nn 0t4118 2015-06-10 2015-06-10 Appt nullFlavo [place] f421e fa4-1 [facility] 16:50:00 16:50:00 Request r Specialties z02-6u38-3 l 997-9k2068 Mi nn 6h062g 2015-06-10 2015-06-10 Appt nullFlavo [place] bff2a aeb-d [facility] 16:50:00 16:50:00 Request r Specialties 23d-471a-b l 07e-817940 Mi nn 367c12 2015-06-10 2015-06-10 Appt nullFlavo [place] 7336d d3d-5 [facility] 16:50:00 16:50:00 Request r Specialties 54d-4a58-9 l 71e-9a7f68 Mi nn 116d2d 2015-06-10 2015-06-10 Appt nullFlavo [place] 40da1 ea6-0 [facility] 16:50:00 16:50:00 Request r Specialties 5x8-87j2-g l 24a-9be5f2 Mi nn 71ba6a 2015-06-10 2015-06-10 Appt nullFlavo [place] 2aeb5 7dd-2 [facility] 16:50:00 16:50:00 Request r Specialties y9k-476v-3 l d36-y21906 Mi nn u48338 2015-06-10 2015-06-10 Appt nullFlavo [place] 1064c 2ff-2 [facility] 16:50:00 16:50:00 Request r Specialties cb5-4788-a l l41-wbb278 Mi nn r9r881 2015-06-10 2015-06-10 Appt nullFlavo [place] 9eba3 4c1-f [facility] 16:50:00 16:50:00 Request r Specialties ed0-4a0f-9 l 441-9451e6 Mi nn ik317n 2015-06-10 2015-06-10 Out[facility] [place] 4817 10 eClinic 11:50:00 11:50:00 [facility] es 2015-06-05 2015-06-05 Appt with [facility] [place] 692 8441c-d [facility] 21:52:00 21:52:00 CV r Specialties 2fe-448c-9 l [id number]-41fd73 Mi nn [id number] 2015-06-05 2015-06-05 Appt with [facility] [place] 6cf d535o-9 [facility] 21:52:00 21:52:00 CV r Specialties 8e5-4218-n l 797-1315db Mi nn [id number] 2289-04-13 2015-06-05 Appt with [facility] [place] 403 66970-7 [facility] 21:52:00 21:52:00 CV r Specialties s9m-18n9-q l 267-ddbaca Mi nn 9e85ac 2015-06-05 2015-06-05 Appt with [facility] [place] bce os71o-4 [facility] 21:52:00 21:52:00 CV r Specialties 9da-40e5-8 l fd2-214fe7 Mi nn d6aac0 2015-06-05 2015-06-05 Appt with [facility] [place] a4b xe51v-g [facility] 21:52:00 21:52:00 CV r Specialties bfa-485e-8 l 88a-d2f11b Mi nn eaa21e 2015-06-05 2015-06-05 Appt with [facility] [place] b9d 8u5fy-h [facility] 21:52:00 21:52:00 CV r Specialties 6aa-4668-8 l be0-16723r Mi nn 7f0e81 2015-06-05 2015-06-05 Appt with [facility] [place] 749 jl98g-2 [facility] 21:52:00 21:52:00 CV r Specialties 172-491b-9 l 350-c96a5f Mi nn 2f13f6 2015-06-05 2015-06-05 Appt with [facility] [place] 9d0 4s55c-3 [facility] 21:52:00 21:52:00 CV r Specialties 3e7-4655-c l z84-03709t Mi nn 5765c8 2015-06-05 2015-06-05 Appt with [facility] [place] 455 j9c8q-q [facility] 21:52:00 21:52:00 CV r Specialties 133-4cc4-8 l 0u0-81103m Mi nn 772ee2 2015-06-05 2015-06-05 Appt with [facility] [place] e74 16u3z-p [facility] 21:52:00 21:52:00 CV r Specialties 262-4ab7-8 l ec8-d20a14 Mi nn dbcca3 2015-06-05 2015-06-05 Appt with [facility] [place] a03 4oeh8-7 [facility] 21:52:00 21:52:00 CV r Specialties 4r7-0q3g-8 l 698-c90f87 Mi nn 03d11e 2015-06-05 2015-06-05 Appt with [facility] [place] 105 77822-7 [facility] 21:52:00 21:52:00 CV r Specialties j31-3s42-g l df5-3cf080 Mi nn dc3acd 2015-06-05 2015-06-05 Appt with [facility] [place] a38 7q09p-a [facility] 21:52:00 21:52:00 CV r Specialties v0c-410t-3 l bce-3p990w Mi nn 9ebfba 2015-06-05 2015-06-05 Appt with [facility] [place] e74 24v7b-e [facility] 21:52:00 21:52:00 CV r Specialties 262-4ab7-8 l ec8-d20a14 Mi nn dbcca3 2015-06-05 2015-06-05 Appt with [facility] [place] a4b sm73a-q [facility] 21:52:00 21:52:00 CV r Specialties bfa-485e-8 l 88a-d2f11b Mi nn eaa21e 2015-06-05 2015-06-05 Appt with [facility] [place] 6cf z362v-9 [facility] 21:52:00 21:52:00 CV r Specialties 5d5-3608-h l 797-1315db Mi nn [id number] 9647-04-13 2015-06-05 Appt with [facility] [place] bce qb04q-4 [facility] 21:52:00 21:52:00 CV r Specialties 9da-40e5-8 l fd2-214fe7 Mi nn d6aac0 2015-06-05 2015-06-05 Appt with [facility] [place] b9d 3y6dj-b [facility] 21:52:00 21:52:00 CV r Specialties 6aa-4668-8 l be0-57601z Mi nn 7f0e81 2015-06-05 2015-06-05 Appt with [facility] [place] 692 8441c-d [facility] 21:52:00 21:52:00 CV r Specialties 2fe-448c-9 l 61d-41fd73 Mi nn 270b59 2015-06-05 2015-06-05 Appt with [facility] [place] 455 r2n0q-d [facility] 21:52:00 21:52:00 CV r Specialties 133-4cc4-8 l 8q6-70284l Mi nn 772ee2 2015-06-05 2015-06-05 Appt with [facility] [place] 403 07767-9 [facility] 21:52:00 21:52:00 CV r Specialties i9c-79x7-m l 267-ddbaca Mi nn 9e85ac 2015-06-05 2015-06-05 Appt with [facility] [place] 9d0 8u38e-6 [facility] 21:52:00 21:52:00 CV r Specialties 5d3-4278-s l f29-74077z Mi nn 5765c8 2015-06-05 2015-06-05 Appt with [facility] [place] a03 3uoz9-0 [facility] 21:52:00 21:52:00 CV r Specialties 9r1-9b0f-7 l 698-c90f87 Mi nn 03d11e 2015-06-05 2015-06-05 Appt with [facility] [place] 749 fe42o-3 [facility] 21:52:00 21:52:00 CV r Specialties 172-491b-9 l 350-c96a5f Mi nn 2f13f6 2015-06-05 2015-06-05 Appt with [facility] [place] a38 1v62v-t [facility] 21:52:00 21:52:00 CV r Specialties z2o-661y-1 l bce-3w260h Mi nn 9ebfba 2015-06-05 2015-06-05 Appt with [facility] [place] 105 35309-6 [facility] 21:52:00 21:52:00 CV r Specialties z78-8c67-x l df5-1xu374 Mi nn dc3acd 2015-06-05 2015-06-05 Appt with null[facility] [place] 68e 57741-b [facility] 20:52:00 20:52:00 CV r Specialties 405-4428-b l 6a8-h80l8v Mi nn 165b86 2015-06-05 2015-06-05 Appt with [facility] [place] 424 2678b-3 [facility] 20:52:00 20:52:00 CV r Specialties 0fc-42ea-8 l 890-83020b Mi nn [id number] 2015-06-05 2015-06-05 Appt with [facility] [place] 3f0 7a48h-x [facility] 20:52:00 20:52:00 CV r Specialties k4n-7q20-e l b96-c45q91 Mi nn 3f7aa1 2015-06-05 2015-06-05 Appt with [facility] [place] 49b 27216-4 [facility] 20:52:00 20:52:00 CV r Specialties v8g-0vf4-9 l df6-f02c13 Mi nn 9u1909 2015-06-05 2015-06-05 Appt with [facility] [place] 1b8 748q5-3 [facility] 20:52:00 20:52:00 CV r Specialties 57d-4765-a l e5d-81099w [facility] nn 32e65f 2015-06-05 2015-06-05 Appt with nullFlavo [place] e89 6106d-b [facility] 20:52:00 20:52:00 CV r Specialties be2-4700-9 l 060-7y420c [facility] nn 6799e2 2015-06-05 2015-06-05 Appt with nullFlavo [place] e2b 62783-f [facility] 20:52:00 20:52:00 CV r Specialties 058-4dc2-a l 35e-997b19 [facility] nn 698e4c 2015-06-05 2015-06-05 Appt with nullFl[facility] [place] 3a0 o8cm8-2 [facility] 20:52:00 20:52:00 CV r Specialties m23-3w42-1 l 007-d94fe1 [facility] nn [id number] 2015-06-05 2015-06-05 Appt with nullFl[facility] [place] c32 ok08p-z [facility] 20:52:00 20:52:00 CV r Specialties 7h5-3621-a l 946-5e2bd7 [facility] [facility] 29[facility]913 2015-06-05 2015-06-05 Appt with [facility] [place] cd8 54397-4 Memoria 20:52:00 20:52:00 CV r Specialties 0c4-52v7-y l 18a-da8e06 [facility] nn [id number] 9203-04-13 2015-06-05 Appt with [facility] [place] 0af a1z94-8 [facility] 20:52:00 20:52:00 CV r Specialties 748-446f-9 l 180-f7e2b9 [facility] nn by3675 2015-06-05 2015-06-05 Appt with [facility] [place] 0ff 270bc-f Memoria 20:52:00 20:52:00 CV r Specialties 0r1-4475-b l 003-386871 [facility] nn d3642c 2015-06-05 2015-06-05 Appt with [facility] [place] fc6 1hf56-8 Memoria 20:52:00 20:52:00 CV r Specialties bbe-42be-9 l b71-bvv0o5 Mi nn 1s3618 2015-06-05 2015-06-05 Appt with [facility] [place] d26 0a4ld-4 Memoria 20:52:00 20:52:00 CV r Specialties 93b-454f-9 l dcb-28f1a6 Mi nn 6048b0 2015-06-05 2015-06-05 Appt with [facility] [place] 362 m924a-8 Mem[facility] 20:52:00 20:52:00 CV r Specialties bf1-4fd4-b l 294-3nw677 [facility] nn 65a4a0 2015-06-05 2015-06-05 Appt with [facility] [place] 0d9 qex8p-k [facility] 20:52:00 20:52:00 CV r Specialties 6bf-4977-b l 5a3-3ef5hx [facility] nn dded72 2015-06-05 2015-06-05 Appt with [facility] [place] 68e 86247-o [facility] 20:52:00 20:52:00 CV r Specialties 405-4428-b l 9i6-q30t1g [facility] nn 165b86 2015-06-05 2015-06-05 Appt with [facility] [place] 1b8 167c4-5 [facility] 20:52:00 20:52:00 CV r Specialties 57d-4765-a l b6r-52076b [facility] nn 32e65f 2015-06-05 2015-06-05 Appt with [facility] [place] 424 2678b-3 Memoria 20:52:00 20:52:00 CV r Specialties 0fc-42ea-8 l 890-90785d [facility] nn l38698 2015-06-05 2015-06-05 Appt with [facility] [place] 0ff 270bc-f Mem[facility] 20:52:00 20:52:00 CV r Specialties 4o4-7320-y l 003-161297 [facility] nn b1198o 2015-06-05 2015-06-05 Appt with [facility] [place] e2b 95005-z [facility] 20:52:00 20:52:00 CV r Specialties 058-4dc2-a l 35e-997b19 [facility] nn 698e4c 2015-06-05 2015-06-05 Appt with [facility] [place] 49b 40325-6 Mem[facility] 20:52:00 20:52:00 CV r Specialties x7k-4mm2-0 l df6-f02c13 Mi nn 6p7621 2015-06-05 2015-06-05 Appt with [facility] [place] 3f0 0s14f-e [facility] 20:52:00 20:52:00 CV r Specialties p0o-4p19-k l s21-i58t93 Mi nn 3f7aa1 2015-06-05 2015-06-05 Appt with [facility] [place] e89 6106d-b [facility] 20:52:00 20:52:00 CV r Specialties be2-4700-9 l 060-4y974r Mi nn 6799e2 2015-06-05 2015-06-05 Appt with [facility] [place] 0af z2w46-7 [facility] 20:52:00 20:52:00 CV r Specialties 748-446f-9 l 180-f7e2b9 Mi nn ix2990 2015-06-05 2015-06-05 Appt with [facility] [place] d26 5i1rc-7 [facility] 20:52:00 20:52:00 CV r Specialties 93b-454f-9 l dcb-28f1a6 Mi nn 6048b0 2015-06-05 2015-06-05 Appt with [facility] [place] 362 j238u-2 [facility] 20:52:00 20:52:00 CV r Specialties bf1-4fd4-b l 294-4bd118 Mi nn 65a4a0 2015-06-05 2015-06-05 Appt with [facility] [place] 3a0 n6kn8-9 [facility] 20:52:00 20:52:00 CV r Specialties j75-3b01-0 l 007-d94fe1 Mi nn w21023 2015-06-05 2015-06-05 Appt with [facility] [place] c32 vm14x-e [facility] 20:52:00 20:52:00 CV r Specialties 2y5-2234-u l 946-5e2bd7 Mi nn 80p026 2015-06-05 2015-06-05 Appt with [facility] [place] cd8 31666-5 [facility] 20:52:00 20:52:00 CV r Specialties 8l3-02r1-f l 18a-da8e06 Mi nn 980047 2472-04-13 2015-06-05 Appt with [facility] [place] fc6 4xr37-3 [facility] 20:52:00 20:52:00 CV r Specialties bbe-42be-9 l s89-stt2j8 Mi nn 6v7147 2015-06-05 2015-06-05 Appt with [facility] [place] 0d9 ljb2c-m [facility] 20:52:00 20:52:00 CV r Specialties 6bf-4977-b l 3t9-7gz0ay Mi nn dded72 2015-06-05 2015-06-05 Chest D [facility] [place] d5362 0c5-1 [facility] 20:45:00 20:45:00 r Specialties 55e-4538-8 l 384-d93efc Mi nn 5h3142 2015-06-05 2015-06-05 Chest D [facility] [place] 64804 218-4 [facility] 20:45:00 20:45:00 r Specialties 531-42e5-b l 33b-0373c6 Mi nn 7f14cd 2015-06-05 2015-06-05 Chest D [facility] [place] 27dc7 1e7-7 [facility] 20:45:00 20:45:00 r Specialties x34-09th-z l 083-cf52a8 Mi nn a50ac8 2015-06-05 2015-06-05 Chest D [facility] [place] 732bb 118-b Mem[facility] 20:45:00 20:45:00 r Specialties 21f-4723-a l 2fc-v84991 Mi nn 584cfd 2015-06-05 2015-06-05 [facility] D [facility] [place] d6111 4a3-1 [facility] 20:45:00 20:45:00 r Specialties baa-4d42-b l e47-05vlt6 Mi nn 3d640c 2015-06-05 2015-06-05 Chest D [facility] [place] da74c 426-7 [facility] 20:45:00 20:45:00 r Specialties 9i1-9g57-b l 512-3k9020 [facility] nn j3w328 2015-06-05 2015-06-05 Chest D [facility] [place] 8f685 5ef-9 Memoria 20:45:00 20:45:00 r Specialties n76-9208-t l 745-f936bc [facility] nn v5618f 2015-06-05 2015-06-05 Chest D [facility] [place] 0c7bd 24d-8 Memoria 20:45:00 20:45:00 r Specialties de8-43b8-9 l 5dc-b0d86d [facility] nn 772815 8059-04-13 2015-06-05 Chest D [facility] [place] 683b3 b43-5 Memoria 20:45:00 20:45:00 r Specialties 85e-4047-a l x0v-172895 [facility] nn 7d28d6 2015-06-05 2015-06-05 Chest D [facility] [place] 6f79b 02a-d Mem[facility] 20:45:00 20:45:00 r Specialties 4j2-3568-2 l bd4-66f8c9 [facility] nn 39e24d 2015-06-05 2015-06-05 Chest D [facility] [place] 9c8c1 a27-0 [facility] 20:45:00 20:45:00 r Specialties elvia-49d2-9 l 3u3-356x4r [facility] nn 314015 1582-04-13 2015-06-05 [facility] D [facility] [place] ad0c0 a9a-b [facility] 20:45:00 20:45:00 r Specialties abb-4ab2-b l 50a-a5dd68 [facility] nn a1d2f7 2015-06-05 2015-06-05 Chest D [facility] [place] e8fbe 1c3-5 [facility] 20:45:00 20:45:00 r Specialties 25c-4a2a-a l 48c-9222d9 [facility] nn 3b44cb 2015-06-05 2015-06-05 Chest D [facility] [place] 6f79b 02a-d [facility] 20:45:00 20:45:00 r Specialties 3h6-4806-7 l bd4-66f8c9 [facility] nn 39e24d 2015-06-05 2015-06-05 Chest D [facility] [place] d6111 4a3-1 [facility] 20:45:00 20:45:00 r Specialties baa-4d42-b l b76-17xlt7 Mi nn 1g069j 2015-06-05 2015-06-05 [facility] [place] 47064 218-4 [facility] 20:45:00 20:45:00 r Specialties 531-42e5-b l 33b-0373c6 Mi nn 7f14cd 2015-06-05 2015-06-05 Chest D [facility] [place] 732bb 118-b [facility] 20:45:00 20:45:00 r Specialties 21f-4723-a l 2fc-h70933 Mi nn 584cfd 2015-06-05 2015-06-05 Chest D [facility] [place] da74c 426-7 [facility] 20:45:00 20:45:00 r Specialties 0x5-5d74-p l 512-8z3022 Mi nn p0a331 2015-06-05 2015-06-05 [facility] D [facility] [place] d5362 0c5-1 [facility] 20:45:00 20:45:00 r Specialties 55e-4538-8 l 384-d93efc Mi nn 3s2114 2015-06-05 2015-06-05 [facility] D [facility] [place] 683b3 b43-5 Memoria 20:45:00 20:45:00 r Specialties 85e-4047-a l r2g-083875 Mi nn 7d28d6 2015-06-05 2015-06-05 [facility] D [facility] [place] 27dc7 1e7-7 [facility] 20:45:00 20:45:00 r Specialties n31-14uz-u l 083-cf52a8 Mi nn a50ac8 2015-06-05 2015-06-05 Chest D [facility] [place] 0c7bd 24d-8 [facility] 20:45:00 20:45:00 r Specialties de8-43b8-9 l 5dc-b0d86d Mi nn 243753 2113-04-13 2015-06-05 [facility] D [facility] [place] 9c8c1 a27-0 [facility] 20:45:00 20:45:00 r Specialties elvia-49d2-9 l 8v6-486l0k Mi nn 275126 3647-04-13 2015-06-05 [facility] D [facility] [place] 8f685 5ef-9 Memoria 20:45:00 20:45:00 r Specialties n89-6736-w l 745-f936bc Mi nn b7438v 2015-06-05 2015-06-05 [facility] D [facility] [place] e8fbe 1c3-5 [facility] 20:45:00 20:45:00 r Specialties 25c-4a2a-a l 48c-9222d9 Mi nn 3b44cb 2015-06-05 2015-06-05 [facility] D [facility] [place] ad0c0 a9a-b [facility] 20:45:00 20:45:00 r Specialties abb-4ab2-b l 50a-a5dd68 Mi nn a1d2f7 2015-06-05 2015-06-05 [facility] [place] 3472b 2e5-4 [facility] 19:45:00 19:45:00 r Specialties 306-4610-b l d6n-a1216y Mi nn ce5ba1 2015-06-05 2015-06-05 [facility] [place] fbda8 b30-f [facility] 19:45:00 19:45:00 r Specialties k5u-2832-g l ef9-24fc0e Mi nn af44cd 2015-06-05 2015-06-05 [facility] [place] 08e53 529-4 Mem[facility] 19:45:00 19:45:00 r Specialties 9ef-4859-9 l m8z-5qflp1 Mi nn 7ec99d 2015-06-05 2015-06-05 [facility] D [facility] [place] 10d68 114-8 Mem[facility] 19:45:00 19:45:00 r Specialties 44e-40b3-9 l 389-99j149 Mi nn 9cfaa6 2015-06-05 2015-06-05 [facility] [place] ea617 54b-b [facility] 19:45:00 19:45:00 r Specialties 116-4172-9 l 4ef-i90366 Mi nn a0b83a 2015-06-05 2015-06-05 [facility] [place] cbc73 945-2 Memoria 19:45:00 19:45:00 r Specialties bb4-4203-9 l 350-f01d67 Mi nn 7p4533 2015-06-05 2015-06-05 [facility] D [facility] [place] 039eb aa9-6 Memoria 19:45:00 19:45:00 r Specialties 930-42ef-9 l 375-74ac7a Mi nn 5c54e7 2015-06-05 2015-06-05 Chest D [facility] [place] c77eb e6b-e Memoria 19:45:00 19:45:00 r Specialties db2-4c9a-8 l 7n8-l8l74v Mi nn 1c5b2e 2015-06-05 2015-06-05 [facility] [place] c9dee f2b-6 Mem[facility] 19:45:00 19:45:00 r Specialties 611-4271-8 l n82-785101 Mi nn 3c8dd4 2015-06-05 2015-06-05 [facility] D [facility] [place] 8bbff 8d2-b Mem[facility] 19:45:00 19:45:00 r Specialties 39c-4364-8 l 929-3ac1af Mi nn 352a73 2015-06-05 2015-06-05 [facility] D [facility] [place] a6f81 36f-2 [facility] 19:45:00 19:45:00 r Specialties i5a-89sf-m l 9be-8y7557 Mi nn 5c5897 2015-06-05 2015-06-05 [facility] [place] 488e8 db2-0 Memoria 19:45:00 19:45:00 r Specialties v99-8u62-a l 2aa-2c0ed4 Mi nn 91182m 2015-06-05 2015-06-05 [facility] [place] 81b3f e99-6 [facility] 19:45:00 19:45:00 r Specialties 7g0-32h1-e l 536-b4f9be Mi nn vp1270 2015-06-05 2015-06-05 [facility] [place] 9a585 9e4-7 Mem[facility] 19:45:00 19:45:00 r Specialties z50-5974-r l ed5-8k4630 Mi nn 3271d9 2015-06-05 2015-06-05 [facility] D [facility] [place] 015fe 530-5 Mem[facility] 19:45:00 19:45:00 r Specialties 7fa-4d86-b l 771-2ab3cf Mi nn 503bac 2015-06-05 2015-06-05 [facility] [place] 58e82 8a5-4 Memoria 19:45:00 19:45:00 r Specialties 777-4da3-b l 448-674270 Mi nn 4b36c2 2015-06-05 2015-06-05 [facility] D [facility] [place] 745ab ee8-4 Memoria 19:45:00 19:45:00 r Specialties s83-7ye3-d l k39-590w1m Mi nn 8b7eda 2015-06-05 2015-06-05 Chest D [facility] [place] 3472b 2e5-4 Mem[facility] 19:45:00 19:45:00 r Specialties 306-4610-b l v8g-e9477f Mi nn ce5ba1 2015-06-05 2015-06-05 Chest D [facility] [place] ea617 54b-b [facility] 19:45:00 19:45:00 r Specialties 116-4172-9 l 4ef-w12119 Mi nn a0b83a 2015-06-05 2015-06-05 Chest D [facility] [place] cbc73 945-2 [facility] 19:45:00 19:45:00 r Specialties bb4-4203-9 l 350-f01d67 Mi nn 0f4671 2015-06-05 2015-06-05 Chest D [facility] [place] fbda8 b30-f Memoria 19:45:00 19:45:00 r Specialties n0r-7268-n l ef9-24fc0e Mi nn af44cd 2015-06-05 2015-06-05 [facility] D [facility] [place] 81b3f e99-6 [facility] 19:45:00 19:45:00 r Specialties 1o0-79n5-k l 536-b4f9be Mi nn jl3343 2015-06-05 2015-06-05 Chest D [facility] [place] c77eb e6b-e [facility] 19:45:00 19:45:00 r Specialties db2-4c9a-8 l 1x7-b3o84b Mi nn 1c5b2e 2015-06-05 2015-06-05 [facility] [place] 10d68 114-8 [facility] 19:45:00 19:45:00 r Specialties 44e-40b3-9 l 389-26g621 Mi nn 9cfaa6 2015-06-05 2015-06-05 [facility] D [facility] [place] 08e53 529-4 [facility] 19:45:00 19:45:00 r Specialties 9ef-4859-9 l n3k-3jcnk2 Mi nn 7ec99d 2015-06-05 2015-06-05 Chest D [facility] [place] 039eb aa9-6 Mem[facility] 19:45:00 19:45:00 r Specialties 930-42ef-9 l 375-74ac7a Mi nn 5c54e7 2015-06-05 2015-06-05 [facility] D [facility] [place] 488e8 db2-0 Mem[facility] 19:45:00 19:45:00 r Specialties o10-4d38-g l 2aa-2c0ed4 Mi nn 20894k 2015-06-05 2015-06-05 [facility] D [facility] [place] 015fe 530-5 [facility] 19:45:00 19:45:00 r Specialties 7fa-4d86-b l 771-2ab3cf Mi nn 503bac 2015-06-05 2015-06-05 [facility] [place] 58e82 8a5-4 Mem[facility] 19:45:00 19:45:00 r Specialties 777-4da3-b l 448-511005 Mi nn 4b36c2 2015-06-05 2015-06-05 [facility] [place] c9dee f2b-6 [facility] 19:45:00 19:45:00 r Specialties 611-4271-8 l y18-207575 Mi nn 3c8dd4 2015-06-05 2015-06-05 [facility] [place] 8bbff 8d2-b [facility] 19:45:00 19:45:00 r Specialties 39c-4364-8 l 929-3ac1af Mi nn 352a73 2015-06-05 2015-06-05 [facility] [place] a6f81 36f-2 [facility] 19:45:00 19:45:00 r Specialties b9x-81ru-w l 9be-9d2587 Mi nn 9q3725 2015-06-05 2015-06-05 [facility] [place] 9a585 9e4-7 [facility] 19:45:00 19:45:00 r Specialties l42-6025-q l ed5-1u4014 [facility] nn 3271d9 2015-06-05 2015-06-05 Chest D [facility] [place] 745ab ee8-4 [facility] 19:45:00 19:45:00 r Specialties r86-6ht6-o l d65-851u3w Mi nn 8b7eda 2015-06-05 2015-06-05 Outpatient [facility] [place] [id number] eClinic 15:52:00 15:52:00 [facility] [employer] [facility] 2015-06-05 2015-06-05 Outpatient [facility] [place] [id number] 70 eClinic 14:45:00 14:45:00 [facility] [employer] [employer] [facility] 2015-06-04 2015-06-04 Novoloin [facility] [place] c7a7 86e1-8 Mem[facility] 19:16:00 19:16:00 70/30 Vial r Specialties 5r3-25o a-b l Refill 028-662b6e [facility] nn Request - oa1354 refilled 2015-06-04 2015-06-04 Nov[facility] [place] 5154 3253-2 Mem[facility] 19:16:00 19:16:00 70/30 Vial r Specialties 7da-4a8 e-b l Refill 972-x6k556 [facility] nn Request - 536dc6 refilled 2015-06-04 2015-06-04 Novoloin [facility] [place] e409 72f8-c [facility] 19:16:00 19:16:00 70/30 Vial r Specialties 564-44b d-b l Refill 7bd-438ca6 [facility] nn Request - da0d34 refilled 2015-06-04 2015-06-04 Nov[facility]in [facility] [place] 7fcc d50b-1 [facility] 19:16:00 19:16:00 70/30 Vial r Specialties 9ea-4e8 1-8 l Refill edc-61ace4 Mi nn Request - 9b35f0 refilled 2015-06-04 2015-06-04 [facility] [place] f06a 5b4f-e [facility] 19:16:00 19:16:00 70/30 Vial r Specialties 9ad-457 5-8 l Refill 33e-yg869g Mi nn Request - 664fdb refilled 2015-06-04 2015-06-04 [facility] [place] 6e41 d608-a Mem[facility] 19:16:00 19:16:00 70/30 Vial r Specialties d29-4a6 5-8 l Refill 542-9a5f4c Mi nn Request - 374a76 refilled 2015-06-04 2015-06-04 [facility] [place] 6717 57cc-6 [facility] 19:16:00 19:16:00 70/30 Vial r Specialties 2s2-464 4-9 l Refill 162-86fbb1 Mi nn Request - 16e54b refilled 2015-06-04 2015-06-04 [facility] [place] 9e02 5b0e-2 [facility] 19:16:00 19:16:00 70/30 Vial r Specialties d95-475 6-9 l Refill 5fa-21m928 Mi nn Request - [id number] refilled 2015-06-04 2015-06-04 [facility]olo[facility] [place] e4b8 5bb4-d [facility] 19:16:00 19:16:00 70/30 Vial r Specialties 541-4b2 8-8 l Refill 370-d253ec Mi nn Request - b0f9f6 refilled 2015-06-04 2015-06-04 Novoloin [facility] [place] b940 260d-3 [facility] 19:16:00 19:16:00 70/30 Vial r Specialties 86c-46a 5-b l Refill n26-58231n Mi nn Request - 38f3bc refilled 2015-06-04 2015-06-04 Novoloin [facility] [place] 1c60 980e-7 [facility] 19:16:00 19:16:00 70/30 Vial r Specialties s9h-10b 2-9 l Refill 0c3-c1dg4x Mi nn Request - [id number] refilled 2015-06-04 2015-06-04 Novoloin [facility] [place] 2ed1 ba6b-2 [facility] 19:16:00 19:16:00 70/30 Vial r Specialties 822-435 4-8 l Refill ac9-c04baf Mi nn Request - 634552 refilled 2015-06-04 2015-06-04 Novoloin [facility] [place] c9df e687-9 [facility] 19:16:00 19:16:00 70/30 Vial r Specialties e07-4d8 5-a l Refill 7f2-a7a94t Mi nn Request - d49bd0 refilled 2015-06-04 2015-06-04 Novoloin [facility] [place] b940 260d-3 [facility] 19:16:00 19:16:00 70/30 Vial r Specialties 86c-46a 5-b l Refill s09-97368y Mi nn Request - 38f3bc refilled 2015-06-04 2015-06-04 Novoloin [facility] [place] f06a 5b4f-e [facility] 19:16:00 19:16:00 70/30 Vial r Specialties 9ad-457 5-8 l Refill 33e-xq823w Mi nn Request - 664fdb refilled 2015-06-04 2015-06-04 Novoloin [facility] [place] 5154 3253-2 Mem[facility] 19:16:00 19:16:00 70/30 Vial r Specialties 7da-4a8 e-b l Refill 972-h8g045 Mi nn Request - 536dc6 refilled 2015-06-04 2015-06-04 Novoloin [facility] [place] 7fcc d50b-1 [facility] 19:16:00 19:16:00 70/30 Vial r Specialties 9ea-4e8 1-8 l Refill edc-61ace4 Mi nn Request - 9b35f0 refilled 2015-06-04 2015-06-04 Novoloin [facility] [place] 6e41 d608-a [facility] 19:16:00 19:16:00 70/30 Vial r Specialties d29-4a6 5-8 l Refill 542-9a5f4c Mi nn Request - 374a76 refilled 2015-06-04 2015-06-04 Novoloin [facility] [place] c7a7 86e1-8 [facility] 19:16:00 19:16:00 70/30 Vial r Specialties 6v1-90b a-b l Refill 028-662b6e Mi nn Request - go3406 refilled 2015-06-04 2015-06-04 Novoloin [facility] [place] e4b8 5bb4-d [facility] 19:16:00 19:16:00 70/30 Vial r Specialties 541-4b2 8-8 l Refill 370-d253ec Mi nn Request - b0f9f6 refilled 2015-06-04 2015-06-04 Novoloin [facility] [place] e409 72f8-c [facility] 19:16:00 19:16:00 70/30 Vial r Specialties 564-44b d-b l Refill 7bd-438ca6 Mi nn Request - da0d34 refilled 2015-06-04 2015-06-04 Novoloin [facility] [place] 9e02 5b0e-2 [facility] 19:16:00 19:16:00 70/30 Vial r Specialties d95-475 6-9 l Refill 5fa-06s022 Mi nn Request - [id number] refilled 2015-06-04 2015-06-04 Novoloin [facility] [place] 1c60 980e-7 Mem[facility] 19:16:00 19:16:00 70/30 Vial r Specialties v0e-28z 2-9 l Refill 4b0-a2hh7c Mi nn Request - [id number] refilled 2015-06-04 2015-06-04 Novoloin [facility] [place] 6717 57cc-6 [facility] 19:16:00 19:16:00 70/30 Vial r Specialties 8z4-560 4-9 l Refill 162-86fbb1 Mi nn Request - 16e54b refilled 2015-06-04 2015-06-04 Novoloin [facility] [place] c9df e687-9 [facility] 19:16:00 19:16:00 70/30 Vial r Specialties e07-4d8 5-a l Refill 9c9-g5d31y Mi nn Request - d49bd0 refilled 2015-06-04 2015-06-04 Novoloin [facility] [place] 2ed1 ba6b-2 Mem[facility] 19:16:00 19:16:00 70/30 Vial r Specialties 822-435 4-8 l Refill ac9-c04baf Mi nn Request - [id number] refilled 2015-06-04 2015-06-04 Novoloin [facility] [place] ae05 4438-7 [facility] 18:16:00 18:16:00 70/30 Vial r Specialties 1l0-1n8 8-9 l Refill h82-l9913j Mi nn Request - 74f0a3 refilled 2015-06-04 2015-06-04 Novoloin [facility] [place] 9d6c 2849-a [facility] 18:16:00 18:16:00 70/30 Vial r Specialties bd8-402 8-8 l Refill 2z0-e905u9 Mi nn Request - 883a7b refilled 2015-06-04 2015-06-04 Novoloin [facility] [place] d70f 3eb9-2 [facility] 18:16:00 18:16:00 70/30 Vial r Specialties 998-4fb 3-8 l Refill ae6-68cb2a Mi nn Request - 80c6dd refilled 2015-06-04 2015-06-04 Novoloin [facility] [place] 5e7c 9fc8-0 [facility] 18:16:00 18:16:00 70/30 Vial r Specialties 75a-404 e-b l Refill y12-770476 Mi nn Request - 9nf182 refilled 2015-06-04 2015-06-04 Novoloin [facility] [place] 1855 b3b5-d [facility] 18:16:00 18:16:00 70/30 Vial r Specialties 89b-44a 9-a l Refill 9ae-e8f2fc Mi nn Request - aa6f8c refilled 2015-06-04 2015-06-04 Novoloin [facility] [place] a9ab 2710-2 [facility] 18:16:00 18:16:00 70/30 Vial r Specialties l3s-7e4 d-a l Refill 9e9-98b7r5 Mi nn Request - bef62b refilled 2015-06-04 2015-06-04 Novoloin [facility] [place] 4b1d 67b8-4 [facility] 18:16:00 18:16:00 70/30 Vial r Specialties 1bf-475 c-b l Refill 2l7-81cxs3 Mi nn Request - 6d9eab refilled 2015-06-04 2015-06-04 Novoloin [facility] [place] 1a97 d8ea-7 [facility] 18:16:00 18:16:00 70/30 Vial r Specialties 16a-439 8-a l Refill 8x1-4o0f11 Mi nn Request - cbaeef refilled 2015-06-04 2015-06-04 Novoloin [facility] [place] 713b 7590-5 [facility] 18:16:00 18:16:00 70/30 Vial r Specialties 88a-44f 8-b l Refill h2n-7511zv Mi nn Request - a4p439 refilled 2015-06-04 2015-06-04 Novoloin [facility] [place] ff61 a1db-1 [facility] 18:16:00 18:16:00 70/30 Vial r Specialties db2-4a9 4-a l Refill 464-f0b96a Mi nn Request - dcbf11 refilled 2015-06-04 2015-06-04 Novoloin [facility] [place] 6940 033c-9 Mem[facility] 18:16:00 18:16:00 70/30 Vial r Specialties f23-4a4 6-b l Refill 432-35i437 Mi nn Request - 38r825 refilled 2015-06-04 2015-06-04 Novoloin [facility] [place] 8881 1499-2 [facility] 18:16:00 18:16:00 70/30 Vial r Specialties e15-4c1 4-9 l Refill [id number] Mi nn Request - [id number] refilled 2015-06-04 2015-06-04 Novoloin nullFl[place] e241 2f4a-3 [facility] 18:16:00 18:16:00 70/30 Vial r Specialties 45e-4a3 b-8 l Refill [id number] Mi nn Request - [id number] refilled 2015-06-04 2015-06-04 Novoloin nullFl[place] 9ff9 1fff-5 [facility] 18:16:00 18:16:00 70/30 Vial r Specialties 5b3-15a 4-9 l Refill 5ab-63eb06 Mi nn Request - 25d7e5 refilled 2015-06-04 2015-06-04 Novoloin [place] d3e2 6d3d-a [facility] 18:16:00 18:16:00 70/30 Vial r Specialties 5x5-167 e-b l Refill [id number] Mi nn Request - [id number] refilled 2015-06-04 2015-06-04 Novoloin null[place] 21ab e0d5-1 [facility] 18:16:00 18:16:00 70/30 Vial r Specialties 678-459 c-8 l Refill [id number]-x77783 Mi nn Request - [id number] refilled 2015-06-04 2015-06-04 Novoloin nullFl[place] 475f 4ce4-a [facility] 18:16:00 18:16:00 70/30 Vial r Specialties d77-409 f-9 l Refill 91d-8le916 Mi nn Request - [id number] refilled 2015-06-04 2015-06-04 Novoloin nullFl[place] db9e ccea-2 [facility] 18:16:00 18:16:00 70/30 Vial r Specialties aea-456 e-9 l Refill [id number]-bo6772 Mi nn Request - [id number] refilled 2015-06-04 2015-06-04 Novoloin nullFl[place] eeea 8cdd-6 [facility] 18:16:00 18:16:00 70/30 Vial r Specialties m0y-3e5 3-8 l Refill [id number] Mi nn Request - [id number] refilled 2015-06-04 2015-06-04 Novoloin null[place] d70f 3eb9-2 [facility] 18:16:00 18:16:00 70/30 Vial r Specialties 998-4fb 3-8 l Refill [id number] Mi nn Request - 80c6dd refilled 2015-06-04 2015-06-04 Novoloin null[place] ae05 4438-7 [facility] 18:16:00 18:16:00 70/30 Vial r Specialties 6k3-5n3 8-9 l Refill [id number] Mi nn Request - 74f0a3 refilled 2015-06-04 2015-06-04 Novoloin nullFl[place] 9d6c 2849-a [facility] 18:16:00 18:16:00 70/30 Vial r Specialties bd8-402 8-8 l Refill [id number]-o443g1 Mi nn Request - [id number] refilled 2015-06-04 2015-06-04 Novoloin null[place] 4b1d 67b8-4 [facility] 18:16:00 18:16:00 70/30 Vial r Specialties 1bf-475 c-b l Refill 1n2-63mto2 Mi nn Request - 6d9eab refilled 2015-06-04 2015-06-04 Novoloin null[place] 1a97 d8ea-7 [facility] 18:16:00 18:16:00 70/30 Vial r Specialties 16a-439 8-a l Refill [id number] Mi nn Request - cbaeef refilled 2015-06-04 2015-06-04 Novoloin null[place] 5e7c 9fc8-0 [facility] 18:16:00 18:16:00 70/30 Vial r Specialties 75a-404 e-b l Refill [id number] Mi nn Request - [id number] refilled 2015-06-04 2015-06-04 Novoloin nullFl[place] d3e2 6d3d-a [facility] 18:16:00 18:16:00 70/30 Vial r Specialties 3u0-681 e-b l Refill [id number] Mi nn Request - 944a9d refilled 2015-06-04 2015-06-04 Novoloin nullFl[place] ff61 a1db-1 [facility] 18:16:00 18:16:00 70/30 Vial r Specialties db2-4a9 4-a l Refill [id number] Mi nn Request - dcbf11 refilled 2015-06-04 2015-06-04 Novoloin nullFl[place] a9ab 2710-2 [facility] 18:16:00 18:16:00 70/30 Vial r Specialties c8v-5p5 d-a l Refill 8x3-46a4o8 Mi nn Request - bef62b refilled 2015-06-04 2015-06-04 Novoloin nullFl[place] 1855 b3b5-d [facility] 18:16:00 18:16:00 70/30 Vial r Specialties 89b-44a 9-a l Refill [id number]-[id number] Mi nn Request - aa6f8c refilled 2015-06-04 2015-06-04 Novoloin nullFl[place] 713b 7590-5 [facility] 18:16:00 18:16:00 70/30 Vial r Specialties 88a-44f 8-b l Refill [id number]-[id number] Mi nn Request - [id number] refilled 2015-06-04 2015-06-04 Novoloin nullFl[place] 9ff9 1fff-5 [facility] 18:16:00 18:16:00 70/30 Vial r Specialties 6k0-77n 4-9 l Refill 5ab-63eb06 Mi nn Request - 25d7e5 refilled 2015-06-04 2015-06-04 Novoloin nullFl[place] 475f 4ce4-a [facility] 18:16:00 18:16:00 70/30 Vial r Specialties d77-409 f-9 l Refill 91d-7zg135 Mi nn Request - [id number] refilled 2015-06-04 2015-06-04 Novoloin nullFlavo [place] db9e ccea-2 [facility] 18:16:00 18:16:00 70/30 Vial r Specialties aea-456 e-9 l Refill [id number]-qg8302 Mi nn Request - [id number] refilled 2015-06-04 2015-06-04 Novoloin nullFlavo [place] 6940 033c-9 [facility] 18:16:00 18:16:00 70/30 Vial r Specialties f23-4a4 6-b l Refill [id number] Mi nn Request - [id number] refilled 2015-06-04 2015-06-04 Novoloin nullFl[place] 8881 1499-2 [facility] 18:16:00 18:16:00 70/30 Vial r Specialties e15-4c1 4-9 l Refill [id number]-[id number] Mi nn Request - 4d1fc1 refilled 2015-06-04 2015-06-04 Novoloin nullFl[place] e241 2f4a-3 [facility] 18:16:00 18:16:00 70/30 Vial r Specialties 45e-4a3 b-8 l Refill [id number]-o12686 Mi nn Request - [id number] refilled 2015-06-04 2015-06-04 Novoloin nullFl[place] 21ab e0d5-1 [facility] 18:16:00 18:16:00 70/30 Vial r Specialties 678-459 c-8 l Refill [id number]-k79706 Mi nn Request - [id number] refilled 2015-06-04 2015-06-04 Novoloin nullFlavo [place] eeea 8cdd-6 [facility] 18:16:00 18:16:00 70/30 Vial r [employer] m5c-7b5 3-8 l Refill [id number] Mi nn Request - [id number] refilled 2015-06-04 2015-06-04 [facility] [place] 4790 22 [facility]inic 13:16:00 13:16:00 [facility] es 2015-05-31 2015-05-31 [facility] [place] 7828f d36-7 [facility] 15:39:00 15:39:00 Discomfort r Specialties 8a2-34r d-9 l b53-c0u603 Mi nn 32c63f 2015-05-31 2015-05-31 [facility] [place] c0d55 b8b-1 [facility] 15:39:00 15:39:00 Discomfort r Specialties g2r-269 f-b l 8y1-6e28a4 Im nn bcbd42 2015-05-31 2015-05-31 [facility] [place] 3f961 75f-d [facility] 15:39:00 15:39:00 Discomfort r Specialties 275-484 5-a l k04-9023s2 Mi nn 97s438 2015-05-31 2015-05-31 [facility] [place] e1d1b 27e-e [facility] 15:39:00 15:39:00 Discomfort r Specialties 82a-4cb a-8 l 343-9190fb Mi nn 2cb00f 2015-05-31 2015-05-31 [facility] [place] bc494 245-e [facility] 15:39:00 15:39:00 Discomfort r Specialties 998-416 8-a l 30c-38dd0a Mi nn 2b402e 2015-05-31 2015-05-31 [facility] [place] 4d4ac dd3-6 [facility] 15:39:00 15:39:00 Discomfort r Specialties 434-490 b-b l 31f-322f16 Mi nn f6c5fe 2015-05-31 2015-05-31 [facility] [place] 1be38 22e-9 [facility] 15:39:00 15:39:00 Discomfort r Specialties df0-438 f-8 l 4j2-04k29f Mi nn 94d22f 2015-05-31 2015-05-31 [facility] [place] c24d2 6fe-0 [facility] 15:39:00 15:39:00 Discomfort r Specialties 5u2-8yk 0-9 l 824-mwd180 Mi nn htr550 2015-05-31 2015-05-31 [facility] [place] 7ff03 776-3 [facility] 15:39:00 15:39:00 Discomfort r Specialties ca9-42b 7-8 l 08a-f6b3ca Mi nn d8c56e 2015-05-31 2015-05-31 [facility] [place] 8240c f13-a [facility] 15:39:00 15:39:00 Discomfort r Specialties d8o-261 9-9 l 001-73419x Mi nn 21cf6f 2015-05-31 2015-05-31 [facility] [place] 8a113 e10-8 [facility] 15:39:00 15:39:00 Discomfort r Specialties af8-414 4-9 l 296-753292 Mi nn 077603 4477-04-08 2015-05-31 [facility] [place] e5c4a 717-0 [facility] 15:39:00 15:39:00 Discomfort r Specialties 0s7-3qm 3-8 l 9z0-yc748r Mi nn 101131 2756-04-08 2015-05-31 [facility] [place] f8be3 487-2 [facility] 15:39:00 15:39:00 Discomfort r Specialties 91d-4e4 4-9 l 65f-1defb9 Mi nn 234f4f 2015-05-31 2015-05-31 [facility] [place] 8240c f13-a [facility] 15:39:00 15:39:00 Discomfort r Specialties q8f-469 9-9 l 001-91107o Mi nn 21cf6f 2015-05-31 2015-05-31 [facility] [place] bc494 245-e [facility] 15:39:00 15:39:00 Discomfort r Specialties 998-416 8-a l 30c-38dd0a Mi nn 2f600d 2015-05-31 2015-05-31 [facility] [place] c0d55 b8b-1 [facility] 15:39:00 15:39:00 Discomfort r Specialties r7i-050 f-b l 7c1-4x36o5 Mi nn bcbd42 2015-05-31 2015-05-31 [facility] [place] e1d1b 27e-e [facility] 15:39:00 15:39:00 Discomfort r Specialties 82a-4cb a-8 l 343-9190fb Mi nn 2cb00f 2015-05-31 2015-05-31 [facility] [place] 4d4ac dd3-6 [facility] 15:39:00 15:39:00 Discomfort r Specialties 434-490 b-b l 31f-322f16 Mi nn f6c5fe 2015-05-31 2015-05-31 [facility] [place] 7828f d36-7 [facility] 15:39:00 15:39:00 Discomfort r Specialties 5h6-52c d-9 l c02-o4s874 Mi nn 32c63f 2015-05-31 2015-05-31 [facility] [place] 7ff03 776-3 Mem[facility] 15:39:00 15:39:00 Discomfort r Specialties ca9-42b 7-8 l 08a-f6b3ca Mi nn d8c56e 2015-05-31 2015-05-31 [facility] [place] 3f961 75f-d Mem[facility] 15:39:00 15:39:00 Discomfort r Specialties 275-484 5-a l s51-0641p2 Mi nn 10j959 2015-05-31 2015-05-31 [facility] [place] c24d2 6fe-0 Mem[facility] 15:39:00 15:39:00 Discomfort r Specialties 7b8-7tp 0-9 l 824-huj190 [facility] nn vve095 2015-05-31 2015-05-31 [facility] [place] 8a113 e10-8 Mem[facility] 15:39:00 15:39:00 Discomfort r Specialties af8-414 4-9 l 296-029331 [facility] nn 055045 8468-04-08 2015-05-31 [facility] [place] 1be38 22e-9 Mem[facility] 15:39:00 15:39:00 Discomfort r Specialties df0-438 f-8 l 4l7-32w89c [facility] nn 94d22f 2015-05-31 2015-05-31 [facility] [place] f8be3 487-2 Mem[facility] 15:39:00 15:39:00 Discomfort r Specialties 91d-4e4 4-9 l 65f-1defb9 [facility] nn 234f4f 2015-05-31 2015-05-31 [facility] [place] e5c4a 717-0 [facility] 15:39:00 15:39:00 Discomfort r Specialties 9n4-1hj 3-8 l 3n2-ur616b [facility] nn 123048 9135-04-08 2015-05-31 [facility] [place] be6b7 92c-a [facility] 14:39:00 14:39:00 Discomfort r Specialties b74-47f 7-8 l fb3-e6bde6 [facility] nn 93846j 2015-05-31 2015-05-31 [facility] [place] 35c2c f38-a [facility] 14:39:00 14:39:00 Discomfort r Specialties 65e-4e7 e-8 l 8o7-22ga4k [facility] nn 426936 8143-04-08 2015-05-31 [facility] [place] 5996e 851-8 [facility] 14:39:00 14:39:00 Discomfort r Specialties 0d3-1n6 a-b l ef4-cdb5e9 [facility] nn d0d96f 2015-05-31 2015-05-31 [facility] [place] 0aa9b 9c0-5 [facility] 14:39:00 14:39:00 Discomfort r Specialties 763-4b3 1-8 l 4w1-nw53gt Mi nn 345103 0910-04-08 2015-05-31 [facility] [place] 81c54 0cd-c Mem[facility] 14:39:00 14:39:00 Discomfort r Specialties 0e7-5f0 9-a l 1ce-80bb52 Mi nn a517d1 2015-05-31 2015-05-31 [facility] [place] fed91 67e-b [facility] 14:39:00 14:39:00 Discomfort r Specialties 5f4-8ba a-8 l 999-6a4ae7 Mi nn 96ca0b 2015-05-31 2015-05-31 [facility] [place] a0355 019-0 [facility] 14:39:00 14:39:00 Discomfort r Specialties 4ab-4d3 1-9 l 176-52dbf1 Mi nn a1b64a 2015-05-31 2015-05-31 [facility] [place] ec535 629-3 [facility] 14:39:00 14:39:00 Discomfort r Specialties 3w2-8i0 a-9 l n61-7849eq Mi nn s70949 2015-05-31 2015-05-31 [facility] [place] d7e65 c6a-1 [facility] 14:39:00 14:39:00 Discomfort r Specialties d3p-798 0-9 l db9-a8be19 Mi nn f9e68b 2015-05-31 2015-05-31 [facility] [place] e18a8 803-8 [facility] 14:39:00 14:39:00 Discomfort r Specialties 032-42e c-b l y4s-012278 Mi nn 2d9e72 2015-05-31 2015-05-31 [facility] [place] d5a71 1da-6 [facility] 14:39:00 14:39:00 Discomfort r Specialties 761-493 f-a l a44-137905 Mi nn 6ff2e2 2015-05-31 2015-05-31 [facility] [place] b467d 901-4 [facility] 14:39:00 14:39:00 Discomfort r Specialties 806-4a7 c-a l aea-260bf4 Mi nn 7cbdc9 2015-05-31 2015-05-31 [facility] [place] fcbdf d66-3 [facility] 14:39:00 14:39:00 Discomfort r Specialties 875-48b 0-b l l7s-685u12 Mi nn y29398 2015-05-31 2015-05-31 [facility] [place] cefbf c90-9 Mem[facility] 14:39:00 14:39:00 Discomfort r Specialties 88a-4d9 7-a l 2h5-10q9th Mi nn af08d3 2015-05-31 2015-05-31 [facility] [place] 18108 e1b-3 Memoria 14:39:00 14:39:00 Discomfort r Specialties w1u-1h2 0-a l 99f-c9bfd0 Mi nn 1y6057 2015-05-31 2015-05-31 [facility] [place] bc562 f72-0 Mem[facility] 14:39:00 14:39:00 Discomfort r Specialties 8d8-9d7 4-b l 87e-2a9d55 Mi nn 3063c7 2015-05-31 2015-05-31 [facility] [place] 9fab1 7b6-e Mem[facility] 14:39:00 14:39:00 Discomfort r Specialties 82e-413 f-a l 93e-f4de52 Mi nn 2i8933 2015-05-31 2015-05-31 [facility] [place] 71ce0 7c4-0 Mem[facility] 14:39:00 14:39:00 Discomfort r Specialties 0d5-54w b-a l da1-5f87cf Mi nn 37530n 2015-05-31 2015-05-31 [facility] [place] 35c2c f38-a Mem[facility] 14:39:00 14:39:00 Discomfort r Specialties 65e-4e7 e-8 l 5c8-94ay1r Mi nn 510844 0766-04-08 2015-05-31 [facility] [place] be6b7 92c-a Mem[facility] 14:39:00 14:39:00 Discomfort r Specialties b74-47f 7-8 l fb3-e6bde6 Mi nn 70578a 2015-05-31 2015-05-31 [facility] [place] fed91 67e-b Mem[facility] 14:39:00 14:39:00 Discomfort r Specialties 7p5-4vl a-8 l 999-6a4ae7 Mi nn 96ca0b 2015-05-31 2015-05-31 [facility] [place] a0355 019-0 Mem[facility] 14:39:00 14:39:00 Discomfort r Specialties 4ab-4d3 1-9 l 176-52dbf1 Mi nn a1b64a 2015-05-31 2015-05-31 [facility] [place] 5996e 851-8 Memoria 14:39:00 14:39:00 Discomfort r Specialties 1y6-2v2 a-b l ef4-cdb5e9 Mi nn d0d96f 2015-05-31 2015-05-31 [facility] [place] cefbf c90-9 Mem[facility] 14:39:00 14:39:00 Discomfort r Specialties 88a-4d9 7-a l 0g3-05k3bk Mi nn af08d3 2015-05-31 2015-05-31 [facility] [place] d7e65 c6a-1 [facility] 14:39:00 14:39:00 Discomfort r Specialties f9c-660 0-9 l db9-a8be19 Mi nn f9e68b 2015-05-31 2015-05-31 [facility] [place] 81c54 0cd-c Mem[facility] 14:39:00 14:39:00 Discomfort r Specialties 0l5-6i3 9-a l 1ce-80bb52 Mi nn a517d1 2015-05-31 2015-05-31 [facility] [place] 0aa9b 9c0-5 Mem[facility] 14:39:00 14:39:00 Discomfort r Specialties 763-4b3 1-8 l 2m0-hj18ck Mi nn 405086 9444-04-08 2015-05-31 [facility] [place] ec535 629-3 Mem[facility] 14:39:00 14:39:00 Discomfort r Specialties 0z7-0w6 a-9 l h15-9405px Mi nn v35602 2015-05-31 2015-05-31 [facility] [place] fcbdf d66-3 Memoria 14:39:00 14:39:00 Discomfort r Specialties 875-48b 0-b l q3l-036o99 Mi nn d70944 2015-05-31 2015-05-31 [facility] [place] bc562 f72-0 Mem[facility] 14:39:00 14:39:00 Discomfort r Specialties 7c8-9j2 4-b l 87e-2a9d55 Mi nn 3063c7 2015-05-31 2015-05-31 [facility] [place] 9fab1 7b6-e Memoria 14:39:00 14:39:00 Discomfort r Specialties 82e-413 f-a l 93e-f4de52 Mi nn 4r6887 2015-05-31 2015-05-31 [facility] [place] e18a8 803-8 Memoria 14:39:00 14:39:00 Discomfort r Specialties 032-42e c-b l e4n-549281 Mi nn 2d9e72 2015-05-31 2015-05-31 [facility] [place] d5a71 1da-6 Mem[facility] 14:39:00 14:39:00 Discomfort r Specialties 761-493 f-a l g61-537191 Mi nn 6ff2e2 2015-05-31 2015-05-31 [facility] [place] b467d 901-4 Memoria 14:39:00 14:39:00 Discomfort r Specialties 806-4a7 c-a l aea-260bf4 Mi nn 7cbdc9 2015-05-31 2015-05-31 [facility] [place] 09954 e1b-3 Memoria 14:39:00 14:39:00 Discomfort r Specialties k9b-0r5 0-a l 99f-c9bfd0 Mi nn 8s2827 2015-05-31 2015-05-31 [facility] [place] 71ce0 7c4-0 Memoria 14:39:00 14:39:00 Discomfort r Specialties 5r8-87l b-a l da1-5f87cf Mi nn 20563i 2015-05-31 2015-05-31 [facility] [place] 4770 12 eClinic 09:39:00 09:39:00 [facility] 2015-05-29 2015-05-29 3MTH F/U nullFl[facility] [place] 7065 064c-3 Memoria 19:15:00 19:15:00 r Specialties 24a-4dba-8 l 3ec-138737 Mi nn 8e4a0b 2015-05-29 2015-05-29 3MTH F/U [facility] [place] 64d2 9d29-c Memoria 19:15:00 19:15:00 r Specialties u74-84nq-e l 6a4-3d2il6 Mi nn 53bb63 2015-05-29 2015-05-29 3MTH F/U [facility] [place] 6bc8 ce01-7 Memoria 19:15:00 19:15:00 r Specialties 9bf-409f-b l ea7-5bedb1 Mi nn 01fc6c 2015-05-29 2015-05-29 3MTH F/U [facility] [place] a8d5 5efd-6 Memoria 19:15:00 19:15:00 r Specialties 427-457a-8 l o75-0mwk79 Mi nn 376084 0464-04-06 2015-05-29 3MTH F/U [facility] [place] 9ad9 80aa-c Memoria 19:15:00 19:15:00 r Specialties x2x-7rac-6 l 6s5-s84503 Mi nn iu0111 2015-05-29 2015-05-29 3MTH F/U [facility] [place] 2eac 9dac-3 Memoria 19:15:00 19:15:00 r Specialties 149-45b6-8 l 3z4-l681yj Mi nn my7739 2015-05-29 2015-05-29 3MTH F/U [facility] [place] 7e1c 07ca-6 Memoria 19:15:00 19:15:00 r Specialties de3-4884-9 l bcf-2c5a46 Mi nn 966593 3069-04-06 2015-05-29 3MTH F/U [facility] [place] df3d 6b8d-5 Memoria 19:15:00 19:15:00 r Specialties 588-4089-a l adb-d44d11 Mi nn 0ba3b3 2015-05-29 2015-05-29 3MTH F/U [facility] [place] 4c13 5712-7 Memoria 19:15:00 19:15:00 r Specialties 3z0-4625-u l 879-75add9 [facility] nn 638525 8686-04-06 2015-05-29 3MTH F/U [facility] [place] 8c18 cc97-2 Memoria 19:15:00 19:15:00 r Specialties j07-82tt-5 l 277-il8708 [facility] nn b05cb3 2015-05-29 2015-05-29 3MTH F/U [facility] [place] d863 caac-d Memoria 19:15:00 19:15:00 r Specialties 86c-4f72-8 l e84-04kw58 [facility] nn 432121 3952-04-06 2015-05-29 3MTH F/U [facility] [place] 6627 d4ae-c Memoria 19:15:00 19:15:00 r Specialties 590-465e-a l y07-29bn6f [facility] nn yk8437 2015-05-29 2015-05-29 3MTH F/U [facility] [place] 9cb9 ad1f-d Memoria 19:15:00 19:15:00 r Specialties 826-42e8-a l 4y8-c942sn [facility] nn e8bea4 2015-05-29 2015-05-29 3MTH F/U [facility] [place] 8c18 cc97-2 Memoria 19:15:00 19:15:00 r Specialties u21-51kn-0 l 277-rf8147 [facility] nn b05cb3 2015-05-29 2015-05-29 3MTH F/U [facility] [place] 9ad9 80aa-c Memoria 19:15:00 19:15:00 r Specialties p1f-9gkd-1 l 1m4-f34122 [facility] nn de7057 2015-05-29 2015-05-29 3MTH F/U [facility] [place] 64d2 9d29-c Memoria 19:15:00 19:15:00 r Specialties c45-15wc-c l 9j7-0g7kr7 [facility] nn 53bb63 2015-05-29 2015-05-29 3MTH F/U [facility] [place] a8d5 5efd-6 Memoria 19:15:00 19:15:00 r Specialties 427-457a-8 l j63-6zqn20 [facility] nn 287918 4906-04-06 2015-05-29 3MTH F/U [facility] [place] 2eac 9dac-3 Memoria 19:15:00 19:15:00 r Specialties 149-45b6-8 l 4j1-m700gg Mi nn xq6767 2015-05-29 2015-05-29 3MTH F/U [facility] [place] 7065 064c-3 Memoria 19:15:00 19:15:00 r Specialties 24a-4dba-8 l 3ec-073324 Mi nn 8e4a0b 2015-05-29 2015-05-29 3MTH F/U [facility] [place] 4c13 5712-7 Memoria 19:15:00 19:15:00 r Specialties 1j4-2177-n l 879-75add9 Mi nn 879624 2687-04-06 2015-05-29 3MTH F/U [facility] [place] 6bc8 ce01-7 Memoria 19:15:00 19:15:00 r Specialties 9bf-409f-b l ea7-5bedb1 Mi nn 01fc6c 2015-05-29 2015-05-29 3MTH F/U [facility] [place] df3d 6b8d-5 Memoria 19:15:00 19:15:00 r Specialties 588-4089-a l adb-d44d11 Mi nn 0ba3b3 2015-05-29 2015-05-29 3MTH F/U [facility] [place] d863 caac-d Memoria 19:15:00 19:15:00 r Specialties 86c-4f72-8 l v08-83kd04 Mi nn 829018 9358-04-06 2015-05-29 3MTH F/U [facility] [place] 7e1c 07ca-6 Mem[facility] 19:15:00 19:15:00 r Specialties de3-4884-9 l bcf-2c5a46 Mi nn 387430 7196-04-06 2015-05-29 3MTH F/U [facility] [place] 9cb9 ad1f-d Memoria 19:15:00 19:15:00 r Specialties 826-42e8-a l 5v4-j205vt Mi nn e8bea4 2015-05-29 2015-05-29 3MTH F/U [facility] [place] 6627 d4ae-c Memoria 19:15:00 19:15:00 r Specialties 590-465e-a l z62-46lp7o Mi nn rl8266 2015-05-29 2015-05-29 3MTH F/U [facility] [place] b307 618f-4 [facility] 18:15:00 18:15:00 r Specialties 4a5-5015-r l 6fe-73382b Mi nn 72795s 2015-05-29 2015-05-29 3MTH F/U [facility] [place] 176c 194d-3 Memoria 18:15:00 18:15:00 r Specialties ae3-4e23-a l 5q5-p9174r Mi nn c35d3d 2015-05-29 2015-05-29 3MTH F/U [facility] [place] ed33 073f-7 Memoria 18:15:00 18:15:00 r Specialties 632-43e1-a l 936-ja318z Mi nn 5d7cf9 2015-05-29 2015-05-29 3MTH F/U [facility] [place] f085 3584-2 Mem[facility] 18:15:00 18:15:00 r Specialties ee2-4687-8 l dbb-9w5769 Mi nn dced7d 2015-05-29 2015-05-29 3MTH F/U [facility] [place] b592 849d-9 Memoria 18:15:00 18:15:00 r Specialties aeb-48db-b l 194-03cd1e Mi nn 169abb 2015-05-29 2015-05-29 3MTH F/U [facility] [place] 8d58 8b74-4 Memoria 18:15:00 18:15:00 r Specialties 38c-434a-a l 1k7-9z3jy6 Mi nn 63v959 2015-05-29 2015-05-29 3MTH F/U [facility] [place] 8328 e5e7-d Memoria 18:15:00 18:15:00 r Specialties 383-48bb-a l bde-8m1644 Mi nn 2798cd 2015-05-29 2015-05-29 3MTH F/U [facility] [place] 9404 784c-d Memoria 18:15:00 18:15:00 r Specialties 4ca-401b-8 l 99e-a062eb Mi nn 2015-05-29 2015-05-29 3MTH F/U [facility] [place] 09ae 5f5f-c Mem[facility] 18:15:00 18:15:00 r Specialties 3i0-011j-0 l a8s-4y2352 Mi nn 81dea2 2015-05-29 2015-05-29 3MTH F/U [facility] [place] 78aa 7f55-d Memoria 18:15:00 18:15:00 r Specialties f00-3jxj-a l n79-64t1d7 Mi nn d518b5 2015-05-29 2015-05-29 3MTH F/U [facility] [place] 282d 7e1e-9 Mem[facility] 18:15:00 18:15:00 r Specialties 101-4440-b l 679-e13ce1 Mi nn 40c0e7 2015-05-29 2015-05-29 3MTH F/U [facility] [place] e474 7d04-f Mem[facility] 18:15:00 18:15:00 r Specialties 7h4-26s0-p l 053-co2052 Mi nn f1ced5 2015-05-29 2015-05-29 3MTH F/U [facility] [place] 1d36 d260-a Mem[facility] 18:15:00 18:15:00 r Specialties 06a-4bf1-9 l ec3-31f7fd Mi nn 14953c 2015-05-29 2015-05-29 3MTH F/U [facility] [place] 2589 9881-a Mem[facility] 18:15:00 18:15:00 r Specialties 141-480a-b l 2i8-55f113 Mi nn f1ff14 2015-05-29 2015-05-29 3MTH F/U [facility] [place] b750 fe17-2 [facility] 18:15:00 18:15:00 r Specialties 367-4c74-b l 8o9-9c6078 Mi nn e297bc 2015-05-29 2015-05-29 3MTH F/U [facility] [place] b39f c721-f Mem[facility] 18:15:00 18:15:00 r Specialties af4-4cd0-a l 4a4-t6y632 Mi nn 7f9f7e 2015-05-29 2015-05-29 3MTH F/U [facility] [place] 6de8 4b8d-e [facility] 18:15:00 18:15:00 r Specialties 0t3-4r8z-s l 8y7-3g6b77 Mi nn 093a11 2015-05-29 2015-05-29 3MTH F/U [facility] [place] aa3c d0e8-0 [facility] 18:15:00 18:15:00 r Specialties 563-4ccf-a l 172-92c2d7 Mi nn 51c1f0 2015-05-29 2015-05-29 3MTH F/U [facility] [place] a91a 81c7-b [facility] 18:15:00 18:15:00 r Specialties 72e-411c-8 l af8-51c30f Mi nn 06p445 2015-05-29 2015-05-29 3MTH F/U [facility] [place] cbd5 bb8c-d [facility] 18:15:00 18:15:00 r Specialties 4w7-40bp-8 l w95-f7037e [facility] nn vr556f 2015-05-29 2015-05-29 3MTH F/U [facility] [place] f085 3584-2 Mem[facility] 18:15:00 18:15:00 r Specialties ee2-4687-8 l dbb-1c9016 Mi nn dced7d 2015-05-29 2015-05-29 3MTH F/U [facility] [place] b307 618f-4 [facility] 18:15:00 18:15:00 r Specialties 8q4-0125-g l 6fe-20694s Mi nn 18082g 2015-05-29 2015-05-29 3MTH F/U [facility] [place] ed33 073f-7 [facility] 18:15:00 18:15:00 r Specialties 632-43e1-a l 936-yo107x Mi nn 5d7cf9 2015-05-29 2015-05-29 3MTH F/U [facility] [place] 176c 194d-3 [facility] 18:15:00 18:15:00 r Specialties ae3-4e23-a l 1k9-f6735i Mi nn c35d3d 2015-05-29 2015-05-29 3MTH F/U [facility] [place] 9404 784c-d [facility] 18:15:00 18:15:00 r Specialties 4ca-401b-8 l 99e-a062eb Mi nn 2015-05-29 2015-05-29 3MTH F/U [facility] [place] 09ae 5f5f-c [facility] 18:15:00 18:15:00 r Specialties 5y2-677x-3 l d7m-1w0198 Mi nn 81dea2 2015-05-29 2015-05-29 3MTH F/U [facility] [place] b592 849d-9 [facility] 18:15:00 18:15:00 r Specialties aeb-48db-b l 194-03cd1e Mi nn 169abb 2015-05-29 2015-05-29 3MTH F/U [facility] [place] b39f c721-f Mem[facility] 18:15:00 18:15:00 r Specialties af4-4cd0-a l 3m5-n4s505 Mi nn 7f9f7e 2015-05-29 2015-05-29 3MTH F/U [facility] [place] 282d 7e1e-9 [facility] 18:15:00 18:15:00 r Specialties 101-4440-b l 679-e13ce1 Mi nn 40c0e7 2015-05-29 2015-05-29 3MTH F/U [facility] [place] 8328 e5e7-d Mem[facility] 18:15:00 18:15:00 r Specialties 383-48bb-a l bde-2c6993 Mi nn 2798cd 2015-05-29 2015-05-29 3MTH F/U [facility] [place] 8d58 8b74-4 Mem[facility] 18:15:00 18:15:00 r Specialties 38c-434a-a l 3a7-6d8sf5 Mi nn 25c703 2015-05-29 2015-05-29 3MTH F/U [facility] [place] 78aa 7f55-d Mem[facility] 18:15:00 18:15:00 r Specialties t41-4gnd-m l o75-90g9f6 Mi nn d518b5 2015-05-29 2015-05-29 3MTH F/U [facility] [place] b750 fe17-2 [facility] 18:15:00 18:15:00 r Specialties 367-4c74-b l 0j1-1l7563 [facility] nn e297bc 2015-05-29 2015-05-29 3MTH F/U [facility] [place] aa3c d0e8-0 [facility] 18:15:00 18:15:00 r Specialties 563-4ccf-a l 172-92c2d7 [facility] 51c1f0 2015-05-29 2015-05-29 3MTH F/U [facility]Fl[facility] [place] a91a 81c7-b [facility] 18:15:00 18:15:00 r Specialties 72e-411c-8 l af8-51c30f [facility] nn 01j871 2015-05-29 2015-05-29 3MTH F/U [facility] [place] e474 7d04-f [facility] 18:15:00 18:15:00 r Specialties 4i4-51i3-e l 053-kq2848 [facility] nn f1ced5 2015-05-29 2015-05-29 3MTH F/U nullFlavo [place] 1d36 d260-a Memoria 18:15:00 18:15:00 r Specialties 06a-4bf1-9 l ec3-31f7fd [facility] nn 14785w 2015-05-29 2015-05-29 3MTH F/U nullFlavo [place] 2589 9881-a Memoria 18:15:00 18:15:00 r Specialties 141-480a-b l 5o2-41q333 [facility] nn f1ff14 2015-05-29 2015-05-29 3MTH F/U nullFlavo [place] 6de8 4b8d-e [facility]oria 18:15:00 18:15:00 r Specialties 7v6-8s9p-g l 9g3-8i3c75 [facility] nn 093a11 2015-05-29 2015-05-29 3MTH F/U nullFlavo [place] cbd5 bb8c-d Memoria 18:15:00 18:15:00 r Specialties 7m0-49lr-8 l h48-s0093p [facility] nn ki840q 2015-05-29 2015-05-29 Outpatient Clear [place] [id number] eClinic 13:15:00 13:15:00 [facility] 2015-05-16 2015-05-16 Outpatient MHIE MHIE [id number] Memoria 19:00:00 19:00:00 01 l Niall 2015-05-16 2015-05-16 Outpatient MHIE ERNSTIE [id number] Memoria 19:00:00 19:00:00 01 l Niall 2015-04-25 2015-04-25 Outpatient MHIE MHIE [id number] Memoria 20:20:00 20:20:00 00 l Niall 2015-04-25 2015-04-25 Outpatient MHIE MHEAMON [id number] Memoria 20:20:00 20:20:00 00 l Niall 2015-04-08 2015-04-08 Test nullFlavo [place] 04e84 f20-9 Memoria 22:24:00 22:24:00 results- r Specialties 00b-4cd8- 8 l done t99-wq3u7v Mi nn 449e2d 2015-04-08 2015-04-08 Test nullFlavo [place] 921c9 53e-1 [facility]oria 22:24:00 22:24:00 results- r Specialties i08-163c- 8 l done q10-r4d715 Mi nn 9eabc1 2015-04-08 2015-04-08 Test nullFlavo [place] 84dab 709-7 Memoria 22:24:00 22:24:00 results- r Specialties 78c-4b72- 9 l done 86d-8ih002 Mi nn 5523e0 2015-04-08 2015-04-08 Test nullFlavo [place] 1aaf8 c8a-0 Memoria 22:24:00 22:24:00 results- r Specialties t7r-329h- 9 l done 385-aeda29 Mi nn 265448 4436-02-15 2015-04-08 Test nullFlavo [place] 5b010 d1b-f Memoria 22:24:00 22:24:00 results- r Specialties v94-65r2- a l done n76-086i06 Mi nn 2d2e2c 2015-04-08 2015-04-08 Test nullFlavo [place] e2b2a e12-0 Memoria 22:24:00 22:24:00 results- r Specialties v38-0448- a l done 30b-3727f4 Mi nn 2606f0 2015-04-08 2015-04-08 Test nullFlavo [place] e9d8e ce8-0 Memoria 22:24:00 22:24:00 results- r Specialties 44c-4610- 8 l done 69a-q3265x Mi nn v70625 2015-04-08 2015-04-08 Test nullFlavo [place] d516a fc7-3 Memoria 22:24:00 22:24:00 results- r Specialties 1o1-8e5d- a l done 66e-215a1b Mi nn d067ea 2015-04-08 2015-04-08 Test nullFlavo [place] a9697 759-b Memoria 22:24:00 22:24:00 results- r Specialties 339-4e95- 9 l done 519-74829b Mi nn ad32d4 2015-04-08 2015-04-08 Test nullFlavo [place] fce90 0c1-1 Memoria 22:24:00 22:24:00 results- r Specialties 3z8-669m- b l done 827-de63da Mi nn 8c8b5a 2015-04-08 2015-04-08 Test nullFlavo [place] a4dc9 821-3 Memoria 22:24:00 22:24:00 results- r Specialties fed-4fb4- b l done 9z4-z9294f Mi nn 2d59eb 2015-04-08 2015-04-08 Test nullFlavo [place] eef28 254-d Memoria 22:24:00 22:24:00 results- r Specialties 226-44c5- 9 l done k96-5p9w3m Mi nn 9bi599 2015-04-08 2015-04-08 Test nullFlavo [place] 726b0 e04-8 Memoria 22:24:00 22:24:00 results- r Specialties n95-20s4- b l done bba-gq899s Mi nn 2fc16d 2015-04-08 2015-04-08 Test nullFlavo [place] ee45e d2c-4 Memoria 22:24:00 22:24:00 results- r Specialties 036-45f7- 8 l done 0y4-fy6b2e Mi nn dca55d 2015-04-08 2015-04-08 Test nullFlavo [place] 04e84 f20-9 Memoria 22:24:00 22:24:00 results- r Specialties 00b-4cd8- 8 l done i04-pj2t3i Mi nn 449e2d 2015-04-08 2015-04-08 Test nullFlavo [place] a4dc9 821-3 Memoria 22:24:00 22:24:00 results- r Specialties fed-4fb4- b l done 0i1-c4690q Mi nn 2d59eb 2015-04-08 2015-04-08 Test nullFlavo [place] e2b2a e12-0 Memoria 22:24:00 22:24:00 results- r Specialties o04-3252- a l done 30b-3727f4 [facility] nn 2606f0 2015-04-08 2015-04-08 Test nullFlavo [place] 84dab 709-7 Memoria 22:24:00 22:24:00 results- r Specialties 78c-4b72- 9 l done 86d-0ei249 [facility] nn 5523e0 2015-04-08 2015-04-08 Test nullFlavo [place] 5b010 d1b-f Memoria 22:24:00 22:24:00 results- r Specialties a59-83i7- a l done z16-662p42 [facility] nn 2d2e2c 2015-04-08 2015-04-08 Test nullFlavo [place] e9d8e ce8-0 Memoria 22:24:00 22:24:00 results- r Specialties 44c-4610- 8 l done 69a-a7342x [facility] nn c32183 2015-04-08 2015-04-08 Test nullFlavo [place] 921c9 53e-1 Memoria 22:24:00 22:24:00 results- r Specialties c23-090q- 8 l done s10-b6h013 Mi nn 9eabc1 2015-04-08 2015-04-08 Test nullFlavo [place] fce90 0c1-1 Memoria 22:24:00 22:24:00 results- r Specialties 0h9-921l- b l done 827-de63da Mi nn 8c8b5a 2015-04-08 2015-04-08 Test nullFlavo [place] 1aaf8 c8a-0 Memoria 22:24:00 22:24:00 results- r Specialties k9c-688n- 9 l done 385-aeda29 Mi nn 731901 3841-02-15 2015-04-08 Test nullFlavo [place] a9697 759-b Memoria 22:24:00 22:24:00 results- r Specialties 339-4e95- 9 l done 519-18425q Mi nn ad32d4 2015-04-08 2015-04-08 Test nullFlavo [place] eef28 254-d Memoria 22:24:00 22:24:00 results- r Specialties 226-44c5- 9 l done y16-6y7z1c [facility] nn 5zq273 2015-04-08 2015-04-08 Test nullFlavo [place] d516a fc7-3 Memoria 22:24:00 22:24:00 results- r Specialties 8m1-8r8p- a l done 66e-215a1b [facility] [facility] 2015-04-08 2015-04-08 Test [facility]Fl[facility] [place] ee45e d2c-4 [facility] 22:24:00 22:24:00 results- r Specialties 036-45f7- 8 l done 6j2-gv4f6k [facility] nn dca55d 2015-04-08 2015-04-08 Test nullFl[facility] [place] 726b0 e04-8 [facility] 22:24:00 22:24:00 results- r Specialties r53-94x6- b l done bba-cs775f [facility] nn 2fc16d 2015-04-08 2015-04-08 Test [facility] [place] 8fcc9 b89-2 [facility] 21:24:00 21:24:00 results- r Specialties 3q0-671f- 8 l done ad5-b91ed9 Mi nn 6d8149 2015-04-08 2015-04-08 Test [facility] [place] 734f2 274-c [facility] 21:24:00 21:24:00 results- r Specialties 54e-449e- b l done 564-06c86e Mi nn 118c6a 2015-04-08 2015-04-08 Test [facility] [place] b583c 34f-d [facility] 21:24:00 21:24:00 results- r Specialties 54b-4996- b l done adc-f7y434 [facility] d501be 2015-04-08 2015-04-08 Test null[facility] [place] 1c312 2ae-4 [facility] 21:24:00 21:24:00 results- r Specialties n7w-7287- 9 l done 172-e5cf3a [facility] d71f19 2015-04-08 2015-04-08 Test [facility] [place] 722be 733-c [facility] 21:24:00 21:24:00 results- r Specialties 815-43f9- a l done 998-dba89d [facility] 012971 9281-02-15 2015-04-08 Test [facility] [place] 3ce2d b0f-e [facility] 21:24:00 21:24:00 results- r Specialties 754-4bc4- a l done 23c-w53870 [facility] 5937a1 2015-04-08 2015-04-08 Test null[facility] [place] 8789a 8af-6 [facility] 21:24:00 21:24:00 results- r Specialties 104-4272- 8 l done 8i5-252355 [facility] 160d43 2015-04-08 2015-04-08 Test [facility] [place] 5c140 1b4-5 [facility] 21:24:00 21:24:00 results- r Specialties 91d-4636- 8 l done ea4-6aa8e5 [facility] 941b51 2015-04-08 2015-04-08 Test [facility] [place] 705a7 f82-c [facility] 21:24:00 21:24:00 results- r Specialties 3d8-8762- a l done 5k2-84e162 [facility] acf7ef 2015-04-08 2015-04-08 Test [facility] [place] 48c65 9f6-0 [facility] 21:24:00 21:24:00 results- r Specialties 618-4b1d- a l done 823-bcf0c2 [facility] 44ba03 2015-04-08 2015-04-08 Test [facility] [place] 63cd5 b85-6 [facility] 21:24:00 21:24:00 results- r Specialties 3fe-47b9- 9 l done bbf-091058 Mi nn 2696c7 2015-04-08 2015-04-08 Test [facility] [place] 6f26d 17a-8 [facility] 21:24:00 21:24:00 results- r Specialties 085-43ba- b l done 35b-ad40c4 Mi nn 8ch389 2015-04-08 2015-04-08 Test [facility] [place] 86b03 58d-4 [facility] 21:24:00 21:24:00 results- r Specialties 2t8-5808- a l done ee9-a0p786 Mi nn df8d24 2015-04-08 2015-04-08 Test [facility] [place] 8ac4d a48-c [facility] 21:24:00 21:24:00 results- r Specialties 2u6-7jr3- 9 l done 576-8c3f33 Mi nn 7fba41 2015-04-08 2015-04-08 Test [facility] [place] 3bcba 6aa-9 [facility] 21:24:00 21:24:00 results- r Specialties 2b4-5328- a l done z16-r7v77r Mi nn 3uf603 2015-04-08 2015-04-08 Test [facility] [place] b42a1 216-2 [facility] 21:24:00 21:24:00 results- r Specialties s3a-7957- 9 l done 853-9e2c28 [facility] nn 780879 5611-02-15 2015-04-08 Test [facility] [place] 7da70 05a-c [facility] 21:24:00 21:24:00 results- r Specialties 76f-4f3f- a l done 79a-35a62f Mi nn 1717f2 2015-04-08 2015-04-08 Test [facility] [place] 60b0c c93-6 [facility] 21:24:00 21:24:00 results- r Specialties 1v4-1625- b l done d1f-44848s Mi nn 86q992 2015-04-08 2015-04-08 Test [facility] [place] 0adc4 a77-8 [facility] 21:24:00 21:24:00 results- r Specialties 8j1-70s2- a l done 550-98e4fa [facility] nn 5126dc 2015-04-08 2015-04-08 Test [facility] [place] 9c500 3e3-4 [facility] 21:24:00 21:24:00 results- r Specialties 81c-4052- 8 l done n24-q41806 [facility] nn 769108 4298-02-15 2015-04-08 Test [facility] [place] 1c312 2ae-4 [facility] 21:24:00 21:24:00 results- r Specialties t7x-3359- 9 l done 172-e5cf3a [facility] d71f19 2015-04-08 2015-04-08 Test null[facility] [place] 8fcc9 b89-2 [facility] 21:24:00 21:24:00 results- r Specialties 8e0-943i- 8 l done ad5-b91ed9 [facility] 4y3413 2015-04-08 2015-04-08 Test [facility] [place] b583c 34f-d [facility] 21:24:00 21:24:00 results- r Specialties 54b-4996- b l done adc-j9m506 [facility] nn d501be 2015-04-08 2015-04-08 Test nullFl[facility] [place] 734f2 274-c [facility] 21:24:00 21:24:00 results- r Specialties 54e-449e- b l done 564-06c86e [facility] nn 118c6a 2015-04-08 2015-04-08 Test null[facility] [place] 5c140 1b4-5 [facility] 21:24:00 21:24:00 results- r Specialties 91d-4636- 8 l done ea4-6aa8e5 [facility] 941b51 2015-04-08 2015-04-08 Test [facility] [place] 705a7 f82-c [facility] 21:24:00 21:24:00 results- r Specialties 2t8-1188- a l done 8l2-29x926 [facility] acf7ef 2015-04-08 2015-04-08 Test null[facility] [place] 722be 733-c [facility] 21:24:00 21:24:00 results- r Specialties 815-43f9- a l done 998-dba89d [facility] 127378 2769-02-15 2015-04-08 Test null[facility] [place] b42a1 216-2 [facility] 21:24:00 21:24:00 results- r Specialties x6e-1557- 9 l done 853-9e2c28 [facility] 886904 4686-02-15 2015-04-08 Test [facility] [place] 63cd5 b85-6 [facility] 21:24:00 21:24:00 results- r Specialties 3fe-47b9- 9 l done bbf-451432 [facility] 2696c7 2015-04-08 2015-04-08 Test null[facility] [place] 8789a 8af-6 [facility] 21:24:00 21:24:00 results- r Specialties 104-4272- 8 l done 6y7-116633 [facility] 160d43 2015-04-08 2015-04-08 Test [facility] [place] 3ce2d b0f-e [facility] 21:24:00 21:24:00 results- r Specialties 754-4bc4- a l done 23c-o83551 [facility] 5937a1 2015-04-08 2015-04-08 Test [facility] [place] 48c65 9f6-0 [facility] 21:24:00 21:24:00 results- r Specialties 618-4b1d- a l done 823-bcf0c2 [facility] 44ba03 2015-04-08 2015-04-08 Test [facility] [place] 3bcba 6aa-9 [facility] 21:24:00 21:24:00 results- r Specialties 0v3-0922- a l done y04-e2k61l [facility] 0rb539 2015-04-08 2015-04-08 Test [facility] [place] 60b0c c93-6 [facility] 21:24:00 21:24:00 results- r Specialties 1c3-0186- b l done c2l-37924w [facility] 00f604 2015-04-08 2015-04-08 Test [facility] [place] 0adc4 a77-8 [facility] 21:24:00 21:24:00 results- r Specialties 0o6-51y0- a l done 550-98e4fa [facility] 5126dc 2015-04-08 2015-04-08 Test null[facility] [place] 6f26d 17a-8 [facility] 21:24:00 21:24:00 results- r Specialties 085-43ba- b l done 35b-ad40c4 Mi nn 8un832 2015-04-08 2015-04-08 Test [facility] [place] 86b03 58d-4 [facility] 21:24:00 21:24:00 results- r Specialties 4c2-6250- a l done ee9-q6y096 Mi nn df8d24 2015-04-08 2015-04-08 Test [facility] [place] 8ac4d a48-c [facility] 21:24:00 21:24:00 results- r Specialties 6t3-9ds3- 9 l done 576-8c3f33 Mi nn 7fba41 2015-04-08 2015-04-08 Test [facility] [place] 7da70 05a-c [facility] 21:24:00 21:24:00 results- r Specialties 76f-4f3f- a l done 79a-35a62f Mi nn 1717f2 2015-04-08 2015-04-08 Test null[facility] [place] 9c500 3e3-4 [facility] 21:24:00 21:24:00 results- r Specialties 81c-4052- 8 l done b33-e14051 Mi nn 421966 6918-02-15 2015-04-08 [facility] [place] 4481 10 [facility]Clinic 16:24:00 16:24:00 [facility] 2015 2015 mth f/u [facility] [place] 77045 9cc-6 [facility] 19:45:00 19:45:00 r Specialties bb3-4d17-b l 627-f8d9be Mi nn d67840 2015 2015 mth f/u [facility] [place] 1f810 e1c-6 [facility] 19:45:00 19:45:00 r Specialties 1v3-77a8-1 l 63e-057401 Mi nn 5b81c7 2015 2015 mth f/u [facility] [place] 6138d 61d-4 [facility] 19:45:00 19:45:00 r Specialties k0h-36ds-u l 977-2a286q Mi nn 30a0c5 2015 2015 mth f/u [facility] [place] db3b1 cc4-d [facility] 19:45:00 19:45:00 r Specialties 04b-46ed-8 l 36d-8c4c14 Mi nn d70cc8 2015 2015 mth f/u [facility] [place] 4fbdd fd1-e [facility] 19:45:00 19:45:00 r Specialties t8l-1v05-0 l ce5-41j318 Mi nn b330d4 2015 2015 mth f/u [facility] [place] 8886a bc5-c [facility] 19:45:00 19:45:00 r Specialties 3u9-4k52-s l 7cd-2f4111 Mi nn e916a1 2015 2015 mth f/u [facility] [place] 93a95 0bd-9 [facility] 19:45:00 19:45:00 r Specialties 097-4e0e-8 l s62-47390q Mi nn a68f5b 2015 2015 mth f/u [facility] [place] 87563 1d9-4 [facility] 19:45:00 19:45:00 r Specialties n0c-6767-s l 150-54c6f0 Mi nn 5ac77e 2015 2015 mth f/u [facility] [place] adbfd 4f7-4 [facility] 19:45:00 19:45:00 r Specialties 683-4a4e-a l af4-d66ee8 Mi nn e00c4c 2015 2015 mth f/u [facility] [place] b7271 87e-a [facility] 19:45:00 19:45:00 r Specialties 107-45a2-9 l cb2-ac1e03 Mi nn lr974y 2015 2015 mth f/u [facility] [place] eba32 f81-4 [facility] 19:45:00 19:45:00 r Specialties 49f-4fa5-9 l 99a-9fb36e Mi nn 23577z 2015 2015 mth f/u [facility] [place] 304b7 5e4-f [facility] 19:45:00 19:45:00 r Specialties 263-4b3d-9 l 823-442c1a Mi nn 93ce4a 2015 2015 mth f/u [facility] [place] ca4f0 9b1-3 [facility] 19:45:00 19:45:00 r Specialties 8ed-42b6-b l 357-f567ff Mi nn m0717o 2015 2015 mth f/u [facility] [place] 66629 20a-6 [facility] 19:45:00 19:45:00 r Specialties u35-836y-5 l feb-76ffa4 Mi nn 7391cb 2015 2015 mth f/u [facility] [place] fa5bb a02-4 [facility] 19:45:00 19:45:00 r Specialties 48e-4390-9 l 68d-618383 Mi nn 3cf11f 2015 2015 mth f/u [facility] [place] 20771 9cc-6 [facility] 19:45:00 19:45:00 r Specialties bb3-4d17-b l 627-f8d9be Mi nn f55225 2015 2015 mth f/u [facility] [place] 1f810 e1c-6 [facility] 19:45:00 19:45:00 r Specialties 8g0-74w9-8 l 63e-506094 Mi nn 5b81c7 2015 2015 mth f/u [facility] [place] 304b7 5e4-f [facility] 19:45:00 19:45:00 r Specialties 263-4b3d-9 l 823-442c1a Mi nn 93ce4a 2015 2015 mth f/u [facility] [place] 93a95 0bd-9 [facility] 19:45:00 19:45:00 r Specialties 097-4e0e-8 l t13-96556e Mi nn a68f5b 2015 2015 mth f/u [facility] [place] db3b1 cc4-d [facility] 19:45:00 19:45:00 r Specialties 04b-46ed-8 l 36d-8c4c14 Mi nn d70cc8 2015 2015 mth f/u [facility] [place] 8886a bc5-c [facility] 19:45:00 19:45:00 r Specialties 9f8-3i08-z l 7cd-6r0876 Mi nn e916a1 2015 2015 mth f/u [facility] [place] 41420 1d9-4 [facility] 19:45:00 19:45:00 r Specialties r5g-0504-m l 150-54c6f0 Mi nn 5ac77e 2015 2015 mth f/u [facility] [place] 6138d 61d-4 [facility] 19:45:00 19:45:00 r Specialties l1b-29ss-g l 977-6t086w Mi nn 30a0c5 2015 2015 mth f/u [facility] [place] eba32 f81-4 [facility] 19:45:00 19:45:00 r Specialties 49f-4fa5-9 l 99a-9fb36e Mi nn 84991a 2015 2015 mth f/u [facility] [place] 4fbdd fd1-e [facility] 19:45:00 19:45:00 r Specialties z4s-3t56-0 l ce5-45s024 Mi nn b330d4 2015 2015 mth f/u [facility] [place] b7271 87e-a [facility] 19:45:00 19:45:00 r Specialties 107-45a2-9 l cb2-ac1e03 Mi nn fm406g 2015 2015 mth f/u [facility] [place] ca4f0 9b1-3 [facility] 19:45:00 19:45:00 r Specialties 8ed-42b6-b l 357-f567ff Mi nn v4823a 2015 2015 mth f/u [facility] [place] adbfd 4f7-4 [facility] 19:45:00 19:45:00 r Specialties 683-4a4e-a l af4-d66ee8 Mi nn e00c4c 2015 2015 mth f/u [facility] [place] fa5bb a02-4 [facility] 19:45:00 19:45:00 r Specialties 48e-4390-9 l 68d-828777 Mi nn 3cf11f 2015 2015 mth f/u [facility] [place] 51040 20a-6 [facility] 19:45:00 19:45:00 r Specialties m91-969f-9 l feb-76ffa4 Mi nn 7391cb 2015 2015 mth f/u [facility] [place] eaf14 bf1-9 [facility] 18:45:00 18:45:00 r Specialties b74-0h5q-l l 4b4-5520h2 Mi nn 443067 1898-01-13 2015 mth f/u [facility] [place] 324[address] 8d2-9 [facility] 18:45:00 18:45:00 r Specialties 767-4f88-a l 2b9-6l1lma Mi nn addbd4 2015 2015 mth f/u [facility] [place] 5d71f 3f7-a [facility] 18:45:00 18:45:00 r Specialties ba9-4b54-b l 8be-7b3bfe Mi nn 82a0e3 2015 2015 mth f/u [facility] [place] 94fc5 9d8-2 [facility] 18:45:00 18:45:00 r Specialties 3o0-5pw7-w l 71c-aa2edc Mi nn f11ffd 2015 2015 mth f/u [facility] [place] 1bad5 b20-f [facility] 18:45:00 18:45:00 r Specialties bf7-46b7-8 l 747-634a89 Mi nn 728a6a 2015 2015 mth f/u [facility] [place] eec5d 466-f [facility] 18:45:00 18:45:00 r Specialties 8d4-66j0-7 l 713-929f14 Mi nn 9048de 2015 2015 mth f/u [facility] [place] 93c5b 98d-d [facility] 18:45:00 18:45:00 r Specialties bbd-486e-b l ff4-9aef5e Mi nn 1e4fc3 2015 2015 mth f/u [facility] [place] 23dd5 f2a-9 [facility] 18:45:00 18:45:00 r Specialties 51a-4a2b-a l 957-1o958x Mi nn 549a2d 2015 2015 mth f/u [facility] [place] 9d550 c23-d [facility] 18:45:00 18:45:00 r Specialties abd-4331-a l 935-e165c3 Mi nn faa4b0 2015 2015 mth f/u [facility] [place] d4e15 e95-f [facility] 18:45:00 18:45:00 r Specialties 9ae-48a5-b l i37-gr200h Mi nn 715ff2 2015 2015 mth f/u [facility] [place] d1a7f cc3-2 [facility] 18:45:00 18:45:00 r Specialties 493-4979-b l o22-4i4jlo Mi nn q17169 2015 2015 mth f/u [facility] [place] b447d 9c2-a [facility] 18:45:00 18:45:00 r Specialties 51d-4e56-9 l 5v4-6hk85l Mi nn 221595 0132-01-13 2015 mth f/u [facility] [place] b6478 68b-1 [facility] 18:45:00 18:45:00 r Specialties n4o-3244-r l 0c6-8hyg9v Mi nn t70729 2015 2015 mth f/u [facility] [place] 7a3a3 9ae-4 [facility] 18:45:00 18:45:00 r Specialties 8v3-3612-2 l t05-712j6c Mi nn 90cef9 2015 2015 mth f/u [facility] [place] 57ea9 b25-5 [facility] 18:45:00 18:45:00 r Specialties 5p7-7f5b-6 l 82b-c960f6 Mi nn d071af 2015 2015 mth f/u [facility] [place] 66008 ea4-0 [facility] 18:45:00 18:45:00 r Specialties 3aa-4899-b l 12a-47ba83 Mi nn 48dfeb 2015 2015 mth f/u [facility] [place] a5042 af0-b [facility] 18:45:00 18:45:00 r Specialties df8-4480-a l 9l4-1sc635 Mi nn vm498s 2015 2015 mth f/u [facility] [place] 7a5b4 7be-2 [facility] 18:45:00 18:45:00 r Specialties 08c-4069-a l 3q1-54e647 Mi nn 09540f 2015 2015 mth f/u [facility] [place] 2f3c4 d99-9 [facility] 18:45:00 18:45:00 r Specialties 8ca-49ff-a l m5w-27xa94 Mi nn 5ba7de 2015 2015 mth f/u [facility] [place] 323[address] 9eb-8 [facility] 18:45:00 18:45:00 r Specialties 198-4dbe-8 l 484-f786e3 Mi nn ye517x 2015 2015 mth f/u [facility] [place] 94fc5 9d8-2 [facility] 18:45:00 18:45:00 r Specialties 5l7-8eq4-m l 71c-aa2edc Mi nn f11ffd 2015 2015 mth f/u [facility] [place] eaf14 bf1-9 [facility] 18:45:00 18:45:00 r Specialties k20-7y8s-n l 7u6-7390o8 Mi nn 784342 7226-01-13 2015 mth f/u [facility] [place] 5d71f 3f7-a [facility] 18:45:00 18:45:00 r Specialties ba9-4b54-b l 8be-7b3bfe Mi nn 82a0e3 2015 2015 mth f/u [facility] [place] 62233 8d2-9 [facility] 18:45:00 18:45:00 r Specialties 767-4f88-a l 2z2-1h3lyr Mi nn addbd4 2015 2015 mth f/u [facility] [place] 23dd5 f2a-9 [facility] 18:45:00 18:45:00 r Specialties 51a-4a2b-a l 957-0s111m Mi nn 549a2d 2015 2015 mth f/u [facility] [place] 9d550 c23-d [facility] 18:45:00 18:45:00 r Specialties abd-4331-a l 935-e165c3 Mi nn faa4b0 2015 2015 mth f/u [facility] [place] 1bad5 b20-f [facility] 18:45:00 18:45:00 r Specialties bf7-46b7-8 l 747-634a89 Mi nn 728a6a 2015 2015 mth f/u [facility] [place] 53[address] ea4-0 [facility] 18:45:00 18:45:00 r Specialties 3aa-4899-b l 12a-47ba83 Mi nn 48dfeb 2015 2015 mth f/u [facility] [place] d1a7f cc3-2 [facility] 18:45:00 18:45:00 r Specialties 493-4979-b l k80-3p1pcb Mi nn k81954 2015 2015 mth f/u [facility] [place] 93c5b 98d-d [facility] 18:45:00 18:45:00 r Specialties bbd-486e-b l ff4-9aef5e Mi nn 1e4fc3 2015 2015 mth f/u [facility] [place] eec5d 466-f [facility] 18:45:00 18:45:00 r Specialties 5p4-51h7-1 l 713-929f14 Mi nn 9048de 2015 2015 mth f/u [facility] [place] d4e15 e95-f [facility] 18:45:00 18:45:00 r Specialties 9ae-48a5-b l n26-jp140p Mi nn 715ff2 2015 2015 mth f/u [facility] [place] 57ea9 b25-5 [facility] 18:45:00 18:45:00 r Specialties 9z3-3m3m-5 l 82b-c960f6 Mi nn d071af 2015 2015 mth f/u [facility] [place] 7a5b4 7be-2 [facility] 18:45:00 18:45:00 r Specialties 08c-4069-a l 4i4-07a815 Mi nn 09183x 2015 2015 mth f/u [facility] [place] 2f3c4 d99-9 [facility] 18:45:00 18:45:00 r Specialties 8ca-49ff-a l j6u-26hc72 Mi nn 5ba7de 2015 2015 mth f/u [facility] [place] b447d 9c2-a [facility] 18:45:00 18:45:00 r Specialties 51d-4e56-9 l 4a8-1pt02e Mi nn 432806 4946-01-13 2015 mth f/u [facility] [place] b6478 68b-1 [facility] 18:45:00 18:45:00 r Specialties j0q-2558-q l 3w2-3xdb3r Mi nn b63068 2015 2015 mth f/u [facility] [place] 7a3a3 9ae-4 [facility] 18:45:00 18:45:00 r Specialties 0y9-7704-2 l c89-007q8f Mi nn 90cef9 2015 2015 mth f/u [facility] [place] a5042 af0-b [facility] 18:45:00 18:45:00 r Specialties df8-4480-a l 0n3-1ky435 Mi nn vh789j 2015 2015 mth f/u [facility] [place] 69346 9eb-8 [facility] 18:45:00 18:45:00 r Specialties 198-4dbe-8 l 484-f786e3 Mi nn on760q 2015 2015 [facility] [place] 4222 99 eClinic 13:45:00 13:45:00 [facility] es 2015-02-01 2015-02-01 PCN [facility] [place] b48a0 cad-0 [facility] 19:06:00 19:06:00 Request r Specialties 185-490f-9 l z2w-75tk16 Mi nn mi9448 2015-02-01 2015-02-01 PCN [facility] [place] a52f9 88c-d [facility] 19:06:00 19:06:00 Request r Specialties 41d-4721-9 l 2r1-0o5uq5 Mi nn 4fcbb3 2015-02-01 2015-02-01 [facility] [place] [address] rhea-4 [facility] 19:06:00 19:06:00 Request r Specialties t7b-8fjx-9 l 11e-8425ce Mi nn 46ee9a 2015-02-01 2015-02-01 PCN [facility] [place] af260 87a-1 [facility] 19:06:00 19:06:00 Request r Specialties 90b-4707-b l 4n4-0h184l Mi nn a303c1 2015-02-01 2015-02-01 PCN [facility] [place] e5505 abc-c [facility] 19:06:00 19:06:00 Request r Specialties afe-4174-b l 3x9-n579k0 Mi nn b16111 2015-02-01 2015-02-01 PCN [facility] [place] ac34c a01-7 [facility] 19:06:00 19:06:00 Request r Specialties 143-42e0-b l 220-12193m Mi nn 743455 7424-12-11 2015-02-01 PCN [facility] [place] 6af5d 72d-d [facility] 19:06:00 19:06:00 Request r Specialties 52c-4432-9 l 10f-3f10ff Mi nn 64e5a4 2015-02-01 2015-02-01 PCN [facility] [place] e4476 bb9-b [facility] 19:06:00 19:06:00 Request r Specialties ef5-4679-a l u49-0hno92 Mi nn 42bdcd 2015-02-01 2015-02-01 PCN [facility] [place] f092a 40b-d [facility] 19:06:00 19:06:00 Request r Specialties 192-45e1-8 l dd8-d94c78 Mi nn 3ys799 2015-02-01 2015-02-01 PCN [facility] [place] f1a59 058-6 [facility] 19:06:00 19:06:00 Request r Specialties 638-4232-9 l e7b-656w55 Mi nn 3bac52 2015-02-01 2015-02-01 PCN [facility] [place] b617f 7fa-9 [facility] 19:06:00 19:06:00 Request r Specialties af1-4743-b l 447-660cad Mi nn 96861e 2015-02-01 2015-02-01 PCN [facility] [place] 78d11 fa7-2 [facility] 19:06:00 19:06:00 Request r Specialties 295-4473-b l 429-1y369a Mi nn 4d3dcc 2015-02-01 2015-02-01 PCN [facility] [place] 033c9 e23-0 [facility] 19:06:00 19:06:00 Request r Specialties 0fb-4920-8 l 934-6bfebc Mi nn f537c7 2015-02-01 2015-02-01 PCN [facility] [place] bc9f9 c04-c [facility] 19:06:00 19:06:00 Request r Specialties 912-475f-8 l 913-c7fda3 Mi nn 13b8c9 2015-02-01 2015-02-01 PCN [facility] [place] f26d1 626-4 [facility] 19:06:00 19:06:00 Request r Specialties 975-40d0-a l 1v4-c97zl9 Mi nn f7de88 2015-02-01 2015-02-01 [facility]N [facility] [place] 5d8cb dc0-6 [facility] 19:06:00 19:06:00 Request r Specialties bfa-4f6a-9 l w19-887824 Mi nn 9q415d 2015-02-01 2015-02-01 PCN [facility] [place] 0dba1 981-3 [facility] 19:06:00 19:06:00 Request r Specialties 2v9-6p92-8 l s59-4f4l72 Mi nn a3ae7c 2015-02-01 2015-02-01 [facility] [place] a52f9 88c-d [facility] 19:06:00 19:06:00 Request r Specialties 41d-4721-9 l 2d6-4e1dm0 Mi nn 4fcbb3 2015-02-01 2015-02-01 PCN [facility] [place] b48a0 cad-0 [facility] 19:06:00 19:06:00 Request r Specialties 185-490f-9 l k5n-48jw42 Mi nn hf5200 2015-02-01 2015-02-01 PCN [facility] [place] [address] rhea-4 [facility] 19:06:00 19:06:00 Request r Specialties w6t-4tce-0 l 11e-8425ce Mi nn 46ee9a 2015-02-01 2015-02-01 PCN [facility] [place] af260 87a-1 [facility] 19:06:00 19:06:00 Request r Specialties 90b-4707-b l 3g2-2m992s Mi nn a303c1 2015-02-01 2015-02-01 PCN [place]Fl[place] bc9f9 c04-c [facility]oria 19:06:00 19:06:00 Request r Specialties 912-475f-8 l [id number] Mi nn [id number] 2015-02-01 2015-02-01 PCN [place] f092a 40b-d [facility]oria 19:06:00 19:06:00 Request r Specialties 192-45e1-8 l [id number] Mi nn [id number] 2015-02-01 2015-02-01 PCN [place] ac34c a01-7 [facility]oria 19:06:00 19:06:00 Request r Specialties 143-42e0-b l [id number] Mi nn [id number] 9388-12-11 2015-02-01 PCN [place] e4476 bb9-b [facility]oria 19:06:00 19:06:00 Request r Specialties ef5-4679-a l [id number] Mi nn [id number] 2015-02-01 2015-02-01 PCN [place] f1a59 058-6 [facility] 19:06:00 19:06:00 Request r Specialties 638-4232-9 l [id number] Mi nn [id number] 2015-02-01 2015-02-01 PCN [place] e5505 abc-c [facility] 19:06:00 19:06:00 Request r Specialties afe-4174-b l [id number] Mi nn [id number] 2015-02-01 2015-02-01 PCN [place]Fl[place] 033c9 e23-0 Memoria 19:06:00 19:06:00 Request r Specialties 0fb-4920-8 l [id number] Mi nn [id number] 2015-02-01 2015-02-01 PCN [place] 6af5d 72d-d Memoria 19:06:00 19:06:00 Request r Specialties 52c-4432-9 l 10f-3f10ff Mi nn [id number] 2015-02-01 2015-02-01 PCN [place] 78d11 fa7-2 [facility] 19:06:00 19:06:00 Request r Specialties 295-4473-b l [id number] Mi nn [id number] 2015-02-01 2015-02-01 PCN [place] f26d1 626-4 [facility]oria 19:06:00 19:06:00 Request r Specialties 975-40d0-a l [id number]-y16kk3 Mi nn [id number] 2015-02-01 2015-02-01 PCN [place] b617f 7fa-9 Memoria 19:06:00 19:06:00 Request r Specialties af1-4743-b l 447-660cad Mi nn [id number] 2015-02-01 2015-02-01 PCN [place] 0dba1 981-3 Memoria 19:06:00 19:06:00 Request r Specialties 0r3-4o53-1 l [id number] Mi nn [id number] 2015-02-01 2015-02-01 PCN [place] 5d8cb dc0-6 [facility] 19:06:00 19:06:00 Request r Specialties bfa-4f6a-9 l [id number] [facility] [id number] 2015-02-01 2015-02-01 Return nullFlavo [place] a23c1 7b9-2 Memoria 19:03:00 19:03:00 Call r Specialties 2j1-3941-z l Needed [id number]-[id number] [facility] [id number] 2015-02-01 2015-02-01 Return nullFl[place] ed883 0e9-1 Memoria 19:03:00 19:03:00 Call r Specialties ca8-4e79-8 l Needed [id number]-[id number] [facility] [id number] 2015-02-01 2015-02-01 Return [place]Fl[place] 3f006 932-4 Memoria 19:03:00 19:03:00 Call r Specialties j53-450t-g l Needed [id number] [facility] 143573 9629-12-11 2015-02-01 Return nullFl[place] 4843b b5a-f [facility] 19:03:00 19:03:00 Call r Specialties ce5-4443-9 l Needed [id number]-[id number] [facility] [id number] 2015-02-01 2015-02-01 Return [place]Fl[place] [address] 9b2-e Mem[facility] 19:03:00 19:03:00 Call r Specialties 32a-458b-9 l Needed [id number]-[id number] [facility] [id number] 2015-02-01 2015-02-01 Return [place]Fl[place] b5485 724-7 Memoria 19:03:00 19:03:00 Call r Specialties 94e-4738-9 l Needed [id number] [facility] 095367 9997-12-11 2015-02-01 Return [place]Fl[place] 9a93f d34-b [facility] 19:03:00 19:03:00 Call r Specialties bc9-4f70-b l Needed [id number]-68a79b [facility] 276341 6793-12-11 2015-02-01 Return [place]Fl[place] [address]cad e5c-8 Memoria 19:03:00 19:03:00 Call r Specialties 788-46d8-8 l Needed [id number] [facility] [id number] 2015-02-01 2015-02-01 Return [place]Fl[place] ea0e3 ff4-9 [facility] 19:03:00 19:03:00 Call r Specialties 333-4553-a l Needed [id number] [facility] [id number] 2015-02-01 2015-02-01 Return [place]Fl[place] 4d1e6 e08-4 [facility] 19:03:00 19:03:00 Call r Specialties 26a-49b2-a l Needed [id number] [facility] [id number] 2015-02-01 2015-02-01 Return nullFl[place] 4520b 544-2 [facility] 19:03:00 19:03:00 Call r Specialties 517-443b-b l Needed [id number] [facility] 550951 9647-12-11 2015-02-01 Return nullFl[place] 88c03 a80-1 [facility] 19:03:00 19:03:00 Call r Specialties 1df-471d-b l Needed [id number]-cdz294 [facility] [id number] 2015-02-01 2015-02-01 Return nullFl[place] 2c3cc af5-2 [facility] 19:03:00 19:03:00 Call r Specialties da0-4bdb-b l Needed 9ec-fa48ed [facility] [id number] 2015-02-01 2015-02-01 Return nullFl[place] 6e263 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-e [facility] 19:03:00 19:03:00 Call r Specialties 210-4fe7-a l Needed [id number]-[id number] [facility] [id number] 2015-02-01 2015-02-01 Return nullFl[place] ae47f dc5-c [facility] 19:03:00 19:03:00 Call r Specialties 98a-4660-b l Needed [id number] [facility] [id number] 2015-02-01 2015-02-01 Return nullFl[place] 5ddbd 9a7-9 [facility] 19:03:00 19:03:00 Call r Specialties 943-4e31-b l Needed [id number] [facility] a817bd 2015-02-01 2015-02-01 Return nullFl[place] 1791d 4b9-9 [facility] 19:03:00 19:03:00 Call r Specialties 515-4a36-b l Needed fe4-p39749 [facility] 48a19b 2015-02-01 2015-02-01 Return nullFlavo [place] ed883 0e9-1 Memoria 19:03:00 19:03:00 Call r Specialties ca8-4e79-8 l Needed 4d7-d8zod9 [facility] rk6122 2015-02-01 2015-02-01 Return nullFlavo [place] a23c1 7b9-2 Memoria 19:03:00 19:03:00 Call r Specialties 8x6-1902-j l Needed m8n-x414t8 [facility] f5p191 2015-02-01 2015-02-01 Return nullFlavo [place] 3f006 932-4 Memoria 19:03:00 19:03:00 Call r Specialties h68-321f-v l Needed l41-45vgfk [facility] 802800 4278-12-11 2015-02-01 Return nullFlavo [place] 4843b b5a-f Memoria 19:03:00 19:03:00 Call r Specialties ce5-4443-9 l Needed 55c-700c27 [facility] 6e33d7 2015-02-01 2015-02-01 Return nullFlavo [place] 6e263 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-e Memoria 19:03:00 19:03:00 Call r Specialties 210-4fe7-a l Needed 26a-dl3213 [facility] 80870g 2015-02-01 2015-02-01 Return nullFlavo [place] ea0e3 ff4-9 Memoria 19:03:00 19:03:00 Call r Specialties 333-4553-a l Needed 817-f86519 [facility] 197b59 2015-02-01 2015-02-01 Return nullFlavo [place] b5485 724-7 Memoria 19:03:00 19:03:00 Call r Specialties 94e-4738-9 l Needed 480-cdc84f [facility] 035758 8163-12-11 2015-02-01 Return nullFlavo [place] 45cad e5c-8 Memoria 19:03:00 19:03:00 Call r Specialties 788-46d8-8 l Needed 6d7-7uyg00 [facility] q8324k 2015-02-01 2015-02-01 Return nullFlavo [place] 4d1e6 e08-4 [facility] 19:03:00 19:03:00 Call r Specialties 26a-49b2-a l Needed 261-16a0b0 [facility] 56e674 2015-02-01 2015-02-01 Return nullFlavo [place] 76559 9b2-e Memoria 19:03:00 19:03:00 Call r Specialties 32a-458b-9 l Needed i8i-67tad0 [facility] 7b4897 2015-02-01 2015-02-01 Return nullFlavo [place] 2c3cc af5-2 [facility]oria 19:03:00 19:03:00 Call r Specialties da0-4bdb-b l Needed 9ec-fa48ed [facility] u4343c 2015-02-01 2015-02-01 Return nullFlavo [place] 9a93f d34-b Memoria 19:03:00 19:03:00 Call r Specialties bc9-4f70-b l Needed u8g-99g99x [facility] 320931 0842-12-11 2015-02-01 Return nullFlavo [place] 88c03 a80-1 Memoria 19:03:00 19:03:00 Call r Specialties 1df-471d-b l Needed 20d-jsk622 [facility] d9fe6c 2015-02-01 2015-02-01 Return nullFlavo [place] ae47f dc5-c Memoria 19:03:00 19:03:00 Call r Specialties 98a-4660-b l Needed 3m3-3v26k8 [facility] d3a6ed 2015-02-01 2015-02-01 Return nullFlavo [place] 4520b 544-2 Memoria 19:03:00 19:03:00 Call r Specialties 517-443b-b l Needed o09-709e19 [facility] nn 575513 0576-12-11 2015-02-01 Return nullFlavo [place] 1791d 4b9-9 Memoria 19:03:00 19:03:00 Call r Specialties 515-4a36-b l Needed fe4-i55704 Mi nn 48a19b 2015-02-01 2015-02-01 Return nullFlavo [place] 5ddbd 9a7-9 Memoria 19:03:00 19:03:00 Call r Specialties 943-4e31-b l Needed 298-0ea1a0 [facility] nn a817bd 2015-02-01 2015-02-01 PCN nullFlavo [place] d3d61 362-2 Memoria 18:06:00 18:06:00 Request r Specialties 693-47b9-9 l cb9-999e92 [facility] nn 42fcd0 2015-02-01 2015-02-01 PCN nullFlavo [place] 0596c f5d-4 Memoria 18:06:00 18:06:00 Request r Specialties e57-25d0-8 l 160-2961b2 [facility] nn 845c7e 2015-02-01 2015-02-01 PCN nullFlavo [place] 687eb ad1-1 Memoria 18:06:00 18:06:00 Request r Specialties 123-4cdf-9 l 863-18q077 [facility] nn ab0da6 2015-02-01 2015-02-01 PCN nullFlavo [place] 9ab55 b1b-6 Memoria 18:06:00 18:06:00 Request r Specialties 090-4ded-8 l x2y-8w92ms [facility] nn lup555 2015-02-01 2015-02-01 PCN nullFlavo [place] 29c6b 12b-1 Memoria 18:06:00 18:06:00 Request r Specialties 507-4631-8 l 14a-0v7182 [facility] nn 57bec7 2015-02-01 2015-02-01 PCN nullFlavo [place] d1c87 243-e Memoria 18:06:00 18:06:00 Request r Specialties 279-43ad-9 l 54d-38292o [facility] nn 90w508 2015-02-01 2015-02-01 PCN nullFlavo [place] 708df 176-5 Memoria 18:06:00 18:06:00 Request r Specialties 6bb-44cb-9 l 1fc-3e6318 Mi nn po276j 2015-02-01 2015-02-01 PCN nullFlavo [place] cc63a c8f-d Memoria 18:06:00 18:06:00 Request r Specialties 667-40a0-8 l v11-9u9e7n Mi nn z23915 2015-02-01 2015-02-01 PCN nullFlavo [place] b0938 379-b Mem[facility] 18:06:00 18:06:00 Request r Specialties 273-4be5-9 l ff1-fade4f Mi nn f3d23f 2015-02-01 2015-02-01 PCN nullFlavo [place] 29665 4e2-2 Memoria 18:06:00 18:06:00 Request r Specialties k2c-1148-j l y29-0n61jl Mi nn 6190ac 2015-02-01 2015-02-01 PCN nullFlavo [place] fb2db a82-9 Memoria 18:06:00 18:06:00 Request r Specialties 6ac-4d89-b l o6h-61q575 Mi nn a0cc19 2015-02-01 2015-02-01 PCN nullFl[facility] [place] a9640 85e-0 Memoria 18:06:00 18:06:00 Request r Specialties 6da-4f52-9 l b7x-31ydqj Mi nn 87dceb 2015-02-01 2015-02-01 PCN nullFl[facility] [place] c8ee4 9e6-2 Memoria 18:06:00 18:06:00 Request r Specialties v94-4325-8 l 0z9-232f1r Mi nn a22749 2015-02-01 2015-02-01 PCN nullFl[facility] [place] cc1ba tai-8 Memoria 18:06:00 18:06:00 Request r Specialties 3t7-6w9q-5 l db7-b874f3 Mi nn 68c7dd 2015-02-01 2015-02-01 PCN nullFl[place] 15099 3fa-5 Memoria 18:06:00 18:06:00 Request r Specialties r1h-749q-f l 5b0-yd16vr Mi nn ji819l 2015-02-01 2015-02-01 PCN nullFl[place] 10317 363-e Memoria 18:06:00 18:06:00 Request r Specialties 887-42f3-9 l p0d-q4i24y Mi nn c0ec09 2015-02-01 2015-02-01 PCN nullFl[facility] [place] ad644 d7c-d Memoria 18:06:00 18:06:00 Request r Specialties 57e-48b8-9 l l86-w3szvn Mi nn f0daed 2015-02-01 2015-02-01 PCN nullFl[facility] [place] c14b9 e45-8 Memoria 18:06:00 18:06:00 Request r Specialties 19e-49ab-8 l de1-62d96c Mi nn 9bbaf2 2015-02-01 2015-02-01 PCN nullFl[facility] [place] 01ac4 18c-1 Memoria 18:06:00 18:06:00 Request r Specialties 052-4f95-a l 175-a463f1 Mi nn 6fcda3 2015-02-01 2015-02-01 PCN nullFlavo [place] 07c3b e70-5 Memoria 18:06:00 18:06:00 Request r Specialties 32d-4ad0-a l 479-e670d8 Mi nn 348bcd 2015-02-01 2015-02-01 PCN nullFl[facility] [place] 9ab55 b1b-6 Mem[facility] 18:06:00 18:06:00 Request r Specialties 090-4ded-8 l l3i-1k56ls Mi nn umg703 2015-02-01 2015-02-01 PCN nullFlavo [place] d3d61 362-2 Memoria 18:06:00 18:06:00 Request r Specialties 693-47b9-9 l cb9-999e92 Mi nn 42fcd0 2015-02-01 2015-02-01 PCN nullFlavo [place] 687eb ad1-1 Memoria 18:06:00 18:06:00 Request r Specialties 123-4cdf-9 l 863-87j299 Mi nn ab0da6 2015-02-01 2015-02-01 PCN nullFlavo [place] 0596c f5d-4 Memoria 18:06:00 18:06:00 Request r Specialties e67-69o3-9 l 160-2961b2 Mi nn 845c7e 2015-02-01 2015-02-01 PCN nullFlavo [place] cc63a c8f-d Memoria 18:06:00 18:06:00 Request r Specialties 667-40a0-8 l q95-2d7b3f Mi nn q05548 2015-02-01 2015-02-01 PCN nullFlavo [place] b0938 379-b Memoria 18:06:00 18:06:00 Request r Specialties 273-4be5-9 l ff1-fade4f Mi nn f3d23f 2015-02-01 2015-02-01 PCN nullFl[facility] [place] 29c6b 12b-1 Memoria 18:06:00 18:06:00 Request r Specialties 507-4631-8 l 14a-0w9110 Mi nn 57bec7 2015-02-01 2015-02-01 PCN nullFl[place] 52730 363-e Memoria 18:06:00 18:06:00 Request r Specialties 887-42f3-9 l n7o-z1t37y Mi nn c0ec09 2015-02-01 2015-02-01 PCN nullFlavo [place] fb2db a82-9 Memoria 18:06:00 18:06:00 Request r Specialties 6ac-4d89-b l d7h-86m701 Mi nn a0cc19 2015-02-01 2015-02-01 PCN nullFlavo [place] 708df 176-5 Mem[facility] 18:06:00 18:06:00 Request r Specialties 6bb-44cb-9 l 1fc-5l0521 Mi nn mk044e 2015-02-01 2015-02-01 PCN nullFl[facility] [place] d1c87 243-e Memoria 18:06:00 18:06:00 Request r Specialties 279-43ad-9 l 54d-63502f Mi nn 64f644 2015-02-01 2015-02-01 PCN nullFl[place] 64706 4e2-2 Memoria 18:06:00 18:06:00 Request r Specialties x7y-6239-u l m47-4k95vj Mi nn 6190ac 2015-02-01 2015-02-01 PCN nullFl[place] 04438 3fa-5 Memoria 18:06:00 18:06:00 Request r Specialties i7b-561c-d l 2u0-rl30fd Mi nn nj224j 2015-02-01 2015-02-01 PCN nullFlavo [place] c14b9 e45-8 Memoria 18:06:00 18:06:00 Request r Specialties 19e-49ab-8 l de1-62d96c Mi nn 9bbaf2 2015-02-01 2015-02-01 PCN nullFlavo [place] 01ac4 18c-1 Memoria 18:06:00 18:06:00 Request r Specialties 052-4f95-a l 175-a463f1 Mi nn 6fcda3 2015-02-01 2015-02-01 PCN nullFl[facility] [place] a9640 85e-0 Memoria 18:06:00 18:06:00 Request r Specialties 6da-4f52-9 l n0n-26ryjz Mi nn 87dceb 2015-02-01 2015-02-01 PCN nullFl[facility] [place] c8ee4 9e6-2 Memoria 18:06:00 18:06:00 Request r Specialties v05-1408-2 l 1i0-209o6l Mi nn u03114 2015-02-01 2015-02-01 PCN nullFlavo [place] cc1ba tai-8 Mem[facility] 18:06:00 18:06:00 Request r Specialties 7d8-3x4y-0 l db7-b874f3 Mi nn 68c7dd 2015-02-01 2015-02-01 PCN nullFlavo [place] ad644 d7c-d Memoria 18:06:00 18:06:00 Request r Specialties 57e-48b8-9 l y14-v5frsl Mi nn f0daed 2015-02-01 2015-02-01 PCN nullFlavo [place] 07c3b e70-5 Memoria 18:06:00 18:06:00 Request r Specialties 32d-4ad0-a l 479-e670d8 Mi nn 348bcd 2015-02-01 2015-02-01 Return nullFlavo [place] 130b1 2ae-c Memoria 18:03:00 18:03:00 Call r Specialties ae5-432c-9 l Needed 612-faa9ee Mi nn 871295 5425-12-11 2015-02-01 Return nullFlavo [place] 9636b cd8-9 Memoria 18:03:00 18:03:00 Call r Specialties 575-4824-8 l Needed c9f-eljf22 Mi nn 5efdf5 2015-02-01 2015-02-01 Return nullFlavo [place] 2b3be fc4-a [facility] 18:03:00 18:03:00 Call r Specialties 124-4a03-9 l Needed 1e9-g4n65m Mi nn l0293q 2015-02-01 2015-02-01 Return nullFlavo [place] 502cc 77b-2 Mem[facility] 18:03:00 18:03:00 Call r Specialties d3m-5057-e l Needed 9g3-722762 Mi nn 7v097m 2015-02-01 2015-02-01 Return nullFlavo [place] 07b6d 6dc-0 Memoria 18:03:00 18:03:00 Call r Specialties 6i3-3du3-4 l Needed f7s-2sx554 Mi nn 01c9e9 2015-02-01 2015-02-01 Return nullFlavo [place] fef1a ee0-d [facility] 18:03:00 18:03:00 Call r Specialties 6i3-2m98-a l Needed 69f-ac1c0c Mi nn a9c541 2015-02-01 2015-02-01 Return nullFlavo [place] 4be53 439-2 Memoria 18:03:00 18:03:00 Call r Specialties 77c-402a-9 l Needed ce0-921d33 Mi nn 0c36f4 2015-02-01 2015-02-01 Return nullFlavo [place] cc31e a9d-9 Mem[facility] 18:03:00 18:03:00 Call r Specialties fbc-4d59-a l Needed k34-vh4i86 Mi nn r7j958 2015-02-01 2015-02-01 Return nullFlavo [place] 92c5e 6c7-7 Memoria 18:03:00 18:03:00 Call r Specialties ac2-4d38-8 l Needed 344-06071j [facility] ab8ffc 2015-02-01 2015-02-01 Return nullFlavo [place] 17d9f 97b-f Memoria 18:03:00 18:03:00 Call r Specialties 8a5-447v-3 l Needed be1-c1cbd2 [facility] 9v0054 2015-02-01 2015-02-01 Return nullFlavo [place] eb38f 205-3 Mem[facility] 18:03:00 18:03:00 Call r Specialties 84d-46b2-8 l Needed 207-3211e6 [facility] yaj442 2015-02-01 2015-02-01 Return nullFlavo [place] 23d0e c93-0 Memoria 18:03:00 18:03:00 Call r Specialties o3t-8601-5 l Needed 8w1-5n25ai [facility] 6fce11 2015-02-01 2015-02-01 Return nullFlavo [place] ce11b 2bc-3 Memoria 18:03:00 18:03:00 Call r Specialties h26-0ejr-2 l Needed aff-3804f5 [facility] 89e4f4 2015-02-01 2015-02-01 Return nullFlavo [place] d9b8c 7b7-5 Mem[facility] 18:03:00 18:03:00 Call r Specialties 82e-4a4c-9 l Needed 230-l68964 [facility] e26d5e 2015-02-01 2015-02-01 Return nullFlavo [place] 2d915 0fa-4 Memoria 18:03:00 18:03:00 Call r Specialties 9ac-4a8c-8 l Needed 04b-b0deb6 [facility] 825c65 2015-02-01 2015-02-01 Return nullFlavo [place] e03a2 27d-b [facility] 18:03:00 18:03:00 Call r Specialties b96-7606-1 l Needed d37-wag62p [facility] dd38e3 2015-02-01 2015-02-01 Return nullFlavo [place] 226f9 504-c Memoria 18:03:00 18:03:00 Call r Specialties a06-9133-z l Needed da1-41e59b Mi nn f3ba3a 2015-02-01 2015-02-01 Return nullFlavo [place] e3fc8 94b-f Memoria 18:03:00 18:03:00 Call r Specialties 6cb-419f-a l Needed 9ca-239945 Mi nn b072b3 2015-02-01 2015-02-01 Return nullFlavo [place] 66b7d 291-4 Mem[facility] 18:03:00 18:03:00 Call r Specialties 307-48bd-8 l Needed 365-cff68b [facility] nn 300b3a 2015-02-01 2015-02-01 Return nullFlavo [place] a2c88 a26-3 Memoria 18:03:00 18:03:00 Call r Specialties af0-44af-8 l Needed 7v4-0a4e90 Mi nn 39c33a 2015-02-01 2015-02-01 Return nullFlavo [place] 502cc 77b-2 [facility] 18:03:00 18:03:00 Call r Specialties k4t-5485-l l Needed 9n9-644308 [facility] nn 2e083s 2015-02-01 2015-02-01 Return nullFlavo [place] 130b1 2ae-c Memoria 18:03:00 18:03:00 Call r Specialties ae5-432c-9 l Needed 612-faa9ee [facility] nn 385569 9178-12-11 2015-02-01 Return nullFlavo [place] 2b3be fc4-a [facility] 18:03:00 18:03:00 Call r Specialties 124-4a03-9 l Needed 2b1-w6g06z [facility] nn n8178p 2015-02-01 2015-02-01 Return nullFlavo [place] 9636b cd8-9 Mem[facility] 18:03:00 18:03:00 Call r Specialties 575-4824-8 l Needed l5s-gzfe61 [facility] nn 5efdf5 2015-02-01 2015-02-01 Return nullFlavo [place] cc31e a9d-9 [facility] 18:03:00 18:03:00 Call r Specialties fbc-4d59-a l Needed l20-en5a84 Mi nn v5z416 2015-02-01 2015-02-01 Return nullFlavo [place] 92c5e 6c7-7 [facility] 18:03:00 18:03:00 Call r Specialties ac2-4d38-8 l Needed 344-93137q Mi nn ab8ffc 2015-02-01 2015-02-01 Return nullFlavo [place] 07b6d 6dc-0 [facility] 18:03:00 18:03:00 Call r Specialties 8i6-8se9-9 l Needed t2p-5tn722 Mi nn 01c9e9 2015-02-01 2015-02-01 Return nullFlavo [place] e03a2 27d-b [facility] 18:03:00 18:03:00 Call r Specialties e42-1581-8 l Needed a68-xpe96z Mi nn dd38e3 2015-02-01 2015-02-01 Return nullFlavo [place] eb38f 205-3 [facility] 18:03:00 18:03:00 Call r Specialties 84d-46b2-8 l Needed 207-3211e6 Mi nn yjy012 2015-02-01 2015-02-01 Return nullFlavo [place] 4be53 439-2 [facility] 18:03:00 18:03:00 Call r Specialties 77c-402a-9 l Needed ce0-921d33 Mi nn 0c36f4 2015-02-01 2015-02-01 Return nullFlavo [place] fef1a ee0-d [facility] 18:03:00 18:03:00 Call r Specialties 1p7-1h68-a l Needed 69f-ac1c0c Mi nn o8i766 2015-02-01 2015-02-01 Return nullFlavo [place] 17d9f 97b-f Mem[facility] 18:03:00 18:03:00 Call r Specialties 5n0-161x-2 l Needed be1-c1cbd2 [facility] nn 2y7628 2015-02-01 2015-02-01 Return nullFlavo [place] 2d915 0fa-4 Mem[facility] 18:03:00 18:03:00 Call r Specialties 9ac-4a8c-8 l Needed 04b-b0deb6 Mi nn 825c65 2015-02-01 2015-02-01 Return nullFlavo [place] e3fc8 94b-f [facility] 18:03:00 18:03:00 Call r Specialties 6cb-419f-a l Needed 9ca-386452 Mi nn b072b3 2015-02-01 2015-02-01 Return nullFlavo [place] 66b7d 291-4 [facility] 18:03:00 18:03:00 Call r Specialties 307-48bd-8 l Needed 365-cff68b Mi nn 300b3a 2015-02-01 2015-02-01 Return nullFlavo [place] 23d0e c93-0 [facility] 18:03:00 18:03:00 Call r Specialties m2i-1072-2 l Needed 0k8-3p86aq Mi nn 6fce11 2015-02-01 2015-02-01 Return nullFlavo [place] ce11b 2bc-3 Mem[facility] 18:03:00 18:03:00 Call r Specialties x83-7umq-4 l Needed aff-3804f5 Mi nn 89e4f4 2015-02-01 2015-02-01 Return nullFlavo [place] d9b8c 7b7-5 [facility] 18:03:00 18:03:00 Call r Specialties 82e-4a4c-9 l Needed 230-z66788 Mi nn e26d5e 2015-02-01 2015-02-01 Return nullFlavo [place] 226f9 504-c [facility] 18:03:00 18:03:00 Call r Specialties w77-6068-h l Needed da1-41e59b [facility] nn f3ba3a 2015-02-01 2015-02-01 Return nullFlavo [place] a2c88 a26-3 [facility] 18:03:00 18:03:00 Call r Specialties af0-44af-8 l Needed 3j7-0m9f02 Mi nn 39c33a 2015-02-01 2015-02-01 [facility] [place] [id number] [facility]Clinic 13:06:00 13:06:00 [facility] 2015-02-01 2015-02-01 [facility] [place] [id number] 01 eClinic 13:03:00 13:03:00 [facility] 2015-01-21 2015-01-21 Needs call nullFlavo [place] 2f 7hz204-3 [facility] 21:11:00 21:11:00 back from r Specialties 1m7-9311 -8 [facility] cd1-m0z016 [facility] nn Staff 714f89 2015-01-21 2015-01-21 Needs call nullFlavo [place] 88 526461-8 Memoria 21:11:00 21:11:00 back from r Specialties 1n9-99f0 -8 [facility] 970-7bb0f6 [facility] nn Staff 72a2f5 2015-01-21 2015-01-21 Needs call nullFlavo [place] 52 2jn632-7 Mem[facility] 21:11:00 21:11:00 back from r Specialties dc4-447e -a [facility] 84f-5f206u [facility] nn Staff 52a1c2 2015-01-21 2015-01-21 Needs call nullFlavo [place] 72 hfhm82-7 Mem[facility] 21:11:00 21:11:00 back from r Specialties 3ae-4ff8 -9 [facility] 6i5-17d298 [facility] Staff 569c50 2015-01-21 2015-01-21 Needs call nullFlavo [place] fd susw35-5 [facility] 21:11:00 21:11:00 back from r [facility] 0v0-4smb -a [facility] 52a-32af73 [facility] Staff 7eefa2 2015-01-21 2015-01-21 Needs call nullFlavo [place] 5a 25md16-l [facility] 21:11:00 21:11:00 back from r [facility] 857-4c18 -9 [facility] amanuel-433671 [facility] Staff 023fe1 2015-01-21 2015-01-21 Needs call nullFlavo [place] f7 533f63-5 [facility] 21:11:00 21:11:00 back from r Specialties t01-3a52 -8 [facility] 168-c8437g [facility] nn Staff 320c6a 2015-01-21 2015-01-21 Needs call nullFlavo [place] e3 32p1b0-f [facility] 21:11:00 21:11:00 back from r Specialties bf6-4705 -b [facility] 382-v8j758 [facility] Staff 4k4005 2015-01-21 2015-01-21 Needs call nullFlavo [place] cd c594ss-9 [facility] 21:11:00 21:11:00 back from r Specialties 2c9-589u -9 [facility] f17-tmu17c Mi nn Staff 1mh673 2015-01-21 2015-01-21 Needs call nullFlavo [place] 8a 3e3bxw-d [facility] 21:11:00 21:11:00 back from r Specialties 48b-43d3 -a [facility] y50-ernp7i Mi nn Staff 9d3493 2015-01-21 2015-01-21 Needs call nullFlavo [place] ad 1z4346-o [facility] 21:11:00 21:11:00 back from r Specialties 7n3-3645 -9 [facility] 4d0-xvgo23 Mi nn Staff 3a2a0b 2015-01-21 2015-01-21 Needs call nullFlavo [place] 61 j25t8n-3 [facility] 21:11:00 21:11:00 back from Specialties 434-409d -a [facility] ccc-72a055 [facility] nn Staff f103a2 2015-01-21 2015-01-21 Needs call nullFlavo [place] 11 538bce-a [facility] 21:11:00 21:11:00 back from Specialties u15-27jw -b [facility] 81f-o63162 [facility] nn Staff e97ab4 2015-01-21 2015-01-21 Needs call nullFlavo [place] 18 wmz229-6 [facility] 21:11:00 21:11:00 back from r Specialties r3b-0014 -b [facility] g9c-90166q [facility] nn Staff dc51e4 2015-01-21 2015-01-21 Needs call nullFlavo [place] bf 3m221c-v [facility] 21:11:00 21:11:00 back from r Specialties m69-0305 -9 [facility] q45-82x83k [facility] nn Staff d876ed 2015-01-21 2015-01-21 Needs call nullFlavo [place] 52 6q4145-2 [facility] 21:11:00 21:11:00 back from r Specialties y58-0905 -8 [facility] 5s1-03v5o1 [facility] nn Staff f0eb31 2015-01-21 2015-01-21 Needs call nullFlavo [place] 86 224beb-a [facility] 21:11:00 21:11:00 back from r Specialties 689-4182 -8 [facility] ca6-4e15a0 [facility] nn Staff 3ba11f 2015-01-21 2015-01-21 Needs call nullFlavo [place] 43 g1231p-g [facility] 21:11:00 21:11:00 back from r Specialties 17f-4314 -9 [facility] 2fa-ur0035 [facility] nn Staff 27e2ae 2015-01-21 2015-01-21 Needs call nullFlavo [place] 52 6im331-7 [facility] 21:11:00 21:11:00 back from r Specialties dc4-447e -a [facility] 84f-6k329j [facility] nn Staff 52a1c2 2015-01-21 2015-01-21 Needs call nullFlavo [place] 88 014957-1 [facility] 21:11:00 21:11:00 back from r Specialties 3j8-44u4 -8 [facility] 970-7bb0f6 [facility] nn Staff 72a2f5 2015-01-21 2015-01-21 Needs call nullFlavo [place] 72 kwdg14-6 [facility] 21:11:00 21:11:00 back from r Specialties 3ae-4ff8 -9 [facility] 6e5-14d843 [facility] nn Staff 569c50 2015-01-21 2015-01-21 Needs call nullFlavo [place] 2f 8oo324-6 [facility] 21:11:00 21:11:00 back from r Specialties 7u2-7034 -8 [facility] cd1-r8y025 [facility] nn Staff 714f89 2015-01-21 2015-01-21 Needs call nullFlavo [place] fd qbid67-5 [facility] 21:11:00 21:11:00 back from r Specialties 5f2-8rkf -a [facility] 52a-32af73 [facility] nn Staff 7eefa2 2015-01-21 2015-01-21 Needs call nullFlavo [place] bf [id number] Memoria 21:11:00 21:11:00 back from r Specialties [id number] -9 [facility] [id number] [facility] nn Staff [id number] 2015-01-21 2015-01-21 Needs call nullFlavo [place] 8a [id number] [facility] 21:11:00 21:11:00 back from r Specialties [id number] -a [facility] [id number] Mi nn Staff [id number] 2015-01-21 2015-01-21 Needs call nullFlavo [place] f7 [id number] Memoria 21:11:00 21:11:00 back from r Specialties [id number] -8 [facility] [id number] Mi nn Staff [id number] 2015-01-21 2015-01-21 Needs call nullFlavo [place] cd [id number] [facility]oria 21:11:00 21:11:00 back from r Specialties [id number] -9 [facility] [id number] Mi nn Staff [id number] 2015-01-21 2015-01-21 Needs call nullFlavo [place] ad [id number] Memoria 21:11:00 21:11:00 back from r Specialties [id number] -9 [facility] [id number] Mi nn Staff [id number] 2015-01-21 2015-01-21 Needs call nullFlavo [place] 5a [id number] [facility] 21:11:00 21:11:00 back from r Specialties [id number] -9 [facility] [id number] Mi nn Staff [id number] 2015-01-21 2015-01-21 Needs call nullFlavo [place] 18 [id number] Memoria 21:11:00 21:11:00 back from r Specialties [id number] -b [facility] [id number] [facility] nn Staff [id number] 2015-01-21 2015-01-21 Needs call nullFlavo [place] e3 [id number] [facility] 21:11:00 21:11:00 back from r Specialties [id number] -b [facility] [id number] [facility] nn Staff [id number] 2015-01-21 2015-01-21 Needs call nullFlavo [place] 11 [id number] Memoria 21:11:00 21:11:00 back from r Specialties [id number] -b [facility] [id number] Mi nn Staff [id number] 2015-01-21 2015-01-21 Needs call nullFlavo [place] 52 [id number] Memoria 21:11:00 21:11:00 back from r Specialties [id number] -8 [facility] [id number] [facility] nn Staff [id number] 2015-01-21 2015-01-21 Needs call nullFlavo [place] 61 [id number] [facility] 21:11:00 21:11:00 back from r Specialties [id number] -a [facility] [id number] [facility] nn Staff [id number] 2015-01-21 2015-01-21 Needs call nullFlavo [place] 43 [id number] Memoria 21:11:00 21:11:00 back from r Specialties [id number] -9 [facility] [id number] [facility] nn Staff [id number] 2015-01-21 2015-01-21 Needs call nullFlavo [place] 86 [id number] Memoria 21:11:00 21:11:00 back from r Specialties [id number] -8 [facility] [id number] [facility] nn Staff [id number] 2015-01-21 2015-01-21 Needs call nullFlavo [place] 38 [id number] Memoria 20:11:00 20:11:00 back from Specialties [id number] -9 [facility] [id number] [facility] nn Staff [id number] 2015-01-21 Needs call nullFlavo [place] ac [id number] [facility]oria 20:11:00 20:11:00 back from r Specialties [id number] -8 [facility] [id number] [facility] nn Staff [id number] 2015-01-21 2015-01-21 Needs call nullFlavo [place] 5e [id number] [facility] 20:11:00 20:11:00 back from r Specialties [id number] -9 [facility] [id number] [facility] nn Staff [id number] 2015-01-21 2015-01-21 Needs call nullFlavo [place] e7 [id number] [facility] 20:11:00 20:11:00 back from r Specialties [id number] -a [facility] [id number] [facility] nn Staff [id number] 2015-01-21 2015-01-21 Needs call nullFlavo [place] e6 [id number] [facility] 20:11:00 20:11:00 back from Specialties ff7-47d6 -8 Medical [id number] [facility] nn Staff [id number] 2015-01-21 2015-01-21 Needs call nullFlavo [place] d8 [id number]-h Memoria 20:11:00 20:11:00 back from r Specialties 1fe-4e01 -8 Medical ce4-90bcfd [facility] nn Staff e07cc2 2015-01-21 2015-01-21 Needs call nullFlavo [place] f3 zeu934-1 Memoria 20:11:00 20:11:00 back from r Specialties a3j-437m -b Medical 39a-463d7e [facility] nn Staff [id number] 2015-01-21 2015-01-21 Needs call nullFlavo [place] 3b [id number] Memoria 20:11:00 20:11:00 back from r Specialties 109-4c9d -b [facility] [id number] [facility] nn Staff [id number] 2015-01-21 2015-01-21 Needs call nullFlavo [place] 54 [id number] Memoria 20:11:00 20:11:00 back from r Specialties 2p7-00yu -b [facility] 6cc-7bf1d3 [facility] nn Staff [id number] 2015-01-21 2015-01-21 Needs call nullFlavo [place] 9b [id number] Memoria 20:11:00 20:11:00 back from r Specialties 784-454f -8 [facility] [id number]-4l7993 [facility] nn Staff [id number] 2015-01-21 2015-01-21 Needs call nullFlavo [place] 6a [id number] Memoria 20:11:00 20:11:00 back from r Specialties h63-134n -8 [facility] [id number] [facility] nn Staff [id number] 2015-01-21 2015-01-21 Needs call nullFlavo [place] 6f [id number] Memoria 20:11:00 20:11:00 back from r Specialties 438-445e -b Medical [id number]-[id number] [facility] nn Staff [id number] 2015-01-21 2015-01-21 Needs call nullFlavo [place] f4 [id number] Memoria 20:11:00 20:11:00 back from r Specialties 6da-47ba -b [facility] r01-b8mt21 [facility] nn Staff [id number] 2015-01-21 2015-01-21 Needs call nullFlavo [place] e9 1bjc13-6 Memoria 20:11:00 20:11:00 back from r Specialties 9t8-2494 -b [facility] [id number] [facility] nn Staff 206ea0 2015-01-21 2015-01-21 Needs call nullFlavo [place] 30 ry00l9-0 Memoria 20:11:00 20:11:00 back from r Specialties r41-3177 -b [facility] [id number] [facility] nn Staff [id number] 2015-01-21 2015-01-21 Needs call nullFlavo [place] 82 [id number]-3 Memoria 20:11:00 20:11:00 back from r Specialties ef1-466e -a [facility] a58-g7mi35 [facility] nn Staff [id number] 2015-01-21 2015-01-21 Needs call nullFlavo [place] 15 [id number]-o Memoria 20:11:00 20:11:00 back from r Specialties b8r-8v26 -9 [facility] [id number]-qc4197 [facility] nn Staff dda8ed 2015-01-21 2015-01-21 Needs call nullFlavo [place] 10 [id number] Memoria 20:11:00 20:11:00 back from r Specialties 84f-45ba -9 [facility] [id number] [facility] nn Staff 0995ed 2015-01-21 2015-01-21 Needs call nullFlavo [place] 9a [id number]-i Memoria 20:11:00 20:11:00 back from r Specialties 743-4e40 -9 [facility] [id number] [facility] nn Staff [id number] 2015-01-21 2015-01-21 Needs call nullFlavo [place] 97 [id number]-4 Memoria 20:11:00 20:11:00 back from r Specialties g19-05ay -8 [facility] [id number]-55cdc8 [facility] nn Staff 13ab4c 2015-01-21 2015-01-21 Needs call nullFlavo [place] e7 [id number] Memoria 20:11:00 20:11:00 back from r Specialties 4y3-1z7v -a [facility] [id number] [facility] nn Staff [id number] 2015-01-21 2015-01-21 Needs call nullFlavo [place] 38 [id number] Memoria 20:11:00 20:11:00 back from [facility] w74-65mj -9 [facility] [id number] [facility] nn Staff [id number] 7430-11-30 2015-01-21 Needs call nullFlavo [place] 5e [id number] Memoria 20:11:00 20:11:00 back from [facility] 089-4be3 -9 [facility] [id number]-y4jw0d [facility] nn Staff ec2d0e 2015-01-21 2015-01-21 Needs call nullFlavo [place] ac [id number] Memoria 20:11:00 20:11:00 back from [facility] g49-3j8j -8 [facility] [id number]-lc29dl [facility] nn Staff [id number] 2015-01-21 2015-01-21 Needs call nullFlavo [place] 3b [id number] Memoria 20:11:00 20:11:00 back from [facility] 109-4c9d -b [facility] [id number] [facility] nn Staff [id number] 2015-01-21 2015-01-21 Needs call nullFlavo [place] 54 [id number] Memoria 20:11:00 20:11:00 back from [facility] 6o5-65yx -b [facility] 6cc-7bf1d3 [facility] nn Staff [id number] 2015-01-21 2015-01-21 Needs call nullFlavo [place] e6 [id number]-u Memoria 20:11:00 20:11:00 back from [facility] ff7-47d6 -8 [facility] [id number] [facility] nn Staff [id number] 2015-01-21 2015-01-21 Needs call nullFlavo [place] 82 [id number]-7 Memoria 20:11:00 20:11:00 back from [facility] ef1-466e -a [facility] a65-w0wg09 [facility] nn Staff gn511o 2015-01-21 2015-01-21 Needs call nullFlavo [place] 6a [id number] Memoria 20:11:00 20:11:00 back from [facility] h73-522x -8 [facility] [id number] [facility] Staff [id number] 2015-01-21 2015-01-21 Needs call nullFlavo [place] f3 gvl922-0 Memoria 20:11:00 20:11:00 back from [facility] s7t-745m -b [facility] 39a-[id number] [facility] nn Staff [id number] 2015-01-21 2015-01-21 Needs call nullFlavo [place] d8 [id number]-i Memoria 20:11:00 20:11:00 back from [facility] 1fe-4e01 -8 [facility] ce4-90bcfd [facility] nn Staff e07cc2 2015-01-21 2015-01-21 Needs call nullFlavo [place] 9b [id number]-d Memoria 20:11:00 20:11:00 back from [facility] 784-454f -8 [facility] [id number] [facility] nn Staff [id number] 2015-01-21 2015-01-21 Needs call nullFlavo [place] 30 [id number] Memoria 20:11:00 20:11:00 back from [facility] a29-5974 -b [facility] [id number] [facility] nn Staff [id number] 2015-01-21 2015-01-21 Needs call nullFlavo [place] 10 [id number] Memoria 20:11:00 20:11:00 back from [facility] 84f-45ba -9 [facility] [id number] [facility] nn Staff 0995ed 2015-01-21 2015-01-21 Needs call nullFlavo [place] 9a [id number] Memoria 20:11:00 20:11:00 back from [facility] 743-4e40 -9 [facility] [id number] [facility] nn Staff [id number] 2015-01-21 2015-01-21 Needs call nullFlavo [place] 6f [id number]-l Memoria 20:11:00 20:11:00 back from [facility] 438-445e -b [facility] [id number] [facility] nn Staff [id number] 2015-01-21 2015-01-21 Needs call nullFlavo [place] f4 [id number] Memoria 20:11:00 20:11:00 back from [facility] 6da-47ba -b [facility] [id number] [facility] Staff [id number] 2015-01-21 2015-01-21 Needs call nullFlavo [place] e9 [id number] Memoria 20:11:00 20:11:00 back from r Specialties 2n1-2051 -b [facility] [id number]-[id number] [facility] nn Staff [id number] 2015-01-21 2015-01-21 Needs call nullFlavo [place] 15 66rxl3-a Memoria 20:11:00 20:11:00 back from r Specialties j7o-5p97 -9 [facility] [id number]-[id number] [facility] Staff dda8ed 2015-01-21 2015-01-21 Needs call nullFlavo [place] 97 [id number]-3 Memoria 20:11:00 20:11:00 back from r Specialties h47-94ef -8 [facility] [id number]-55cdc8 [facility] nn Staff 13ab4c 2015-01-21 2015-01-21 Outpatient Clear [place] 4086 62 eClinic 15:11:00 15:11:00 [employer] [employer] Special[facility] es 2014-12-28 2014-12-28 Alternativ nullFlavo [place] 93 [id number] Memoria 16:09:00 16:09:00 e Insulin r Specialties n38-2155 -9 l c42-69t8n6 [facility] [id number] 4322-11-06 2014-12-28 Alternativ nullFlavo [place] 6a [id number]-9 Memoria 16:09:00 16:09:00 e Insulin r Specialties 33c-45d5 -b l s11-g56yy6 [facility] [id number] 7511-11-06 2014-12-28 Alternativ nullFlavo [place] fe 405p82-u Memoria 16:09:00 16:09:00 e Insulin r Specialties bda-40d7 -a l 88d-4974b9 [facility] 3a21f9 2014-12-28 2014-12-28 Alternativ nullFlavo [place] fb e8rr47-3 Memoria 16:09:00 16:09:00 e Insulin r Specialties 7a8-7888 -b l ce8-238ee6 [facility] 91ff49 2014-12-28 2014-12-28 Alternativ nullFlavo [place] 36 [id number]-k Memoria 16:09:00 16:09:00 e Insulin r Specialties 6a3-00e0 -9 l 853-0266c6 Mi nn 623ca4 2014-12-28 2014-12-28 Alternativ nullFlavo [place] 2a [id number] Memoria 16:09:00 16:09:00 e Insulin r Specialties e53-2m56 -b l h73-5mjk22 Mi nn 89184r 2014-12-28 2014-12-28 Alternativ nullFlavo [place] 31 2baq58-r Memoria 16:09:00 16:09:00 e Insulin r Specialties aae-4197 -b l ab5-092e38 Mi nn b4e93c 2014-12-28 2014-12-28 Alternativ nullFlavo [place] 14 f6016z-0 Memoria 16:09:00 16:09:00 e Insulin r Specialties dda-47dc -b l t3e-l9pxya Mi nn c8f9b2 2014-12-28 2014-12-28 Alternativ nullFlavo [place] 3f 924z69-2 Memoria 16:09:00 16:09:00 e Insulin r Specialties t65-968k -9 l v80-34a956 Mi nn 12f95e 2014-12-28 2014-12-28 Alternativ nullFlavo [place] a3 9v556p-3 Memoria 16:09:00 16:09:00 e Insulin r Specialties 1p6-9i64 -a l 2cb-5c4db5 Mi nn e307b5 2014-12-28 2014-12-28 Alternativ nullFlavo [place] f2 256t95-u Memoria 16:09:00 16:09:00 e Insulin r Specialties 78f-446e -b l 9d7-s347h7 Mi nn 2fc7f3 2014-12-28 2014-12-28 Alternativ nullFlavo [place] bc 9g1452-3 Memoria 16:09:00 16:09:00 e Insulin r Specialties 5h5-05u4 -9 l 0q3-4801xi Mi nn 27k105 2014-12-28 2014-12-28 Alternativ nullFlavo [place] 05 634p59-c Memoria 16:09:00 16:09:00 e Insulin r Specialties 960-42ae -a l 7v0-my823x Mi nn 7b8b50 2014-12-28 2014-12-28 Alternativ nullFlavo [place] de l9h9g1-t Memoria 16:09:00 16:09:00 e Insulin r Specialties 9ed-4804 -b l 7h4-c5j53q Mi nn 8b21db 2014-12-28 2014-12-28 Alternativ nullFlavo [place] 0d 059351-7 Memoria 16:09:00 16:09:00 e Insulin r Specialties 91b-4b8b -b l 20e-4272bc Mi nn c68bca 2014-12-28 2014-12-28 Alternativ nullFlavo [place] b1 577366-e Memoria 16:09:00 16:09:00 e Insulin r Specialties 0bf-499e -9 l ee4-ec6a7f Mi nn 8310a8 2014-12-28 2014-12-28 Alternativ nullFlavo [place] b3 2k45x2-i Memoria 16:09:00 16:09:00 e Insulin r Specialties 512-4f46 -b l 325-6fbfe2 Mi nn e964e8 2014-12-28 2014-12-28 Alternativ nullFlavo [place] 4a kw4053-3 Memoria 16:09:00 16:09:00 e Insulin r Specialties 230-4b56 -a l q04-y1j306 Mi nn b61d9c 2014-12-28 2014-12-28 Alternativ nullFlavo [place] 70 34p86n-q Memoria 16:09:00 16:09:00 e Insulin r Specialties l7d-4r2u -a l 36a-33eab4 Mi nn 545dbe 2014-12-28 2014-12-28 Alternativ nullFlavo [place] fb b1tm40-6 Memoria 16:09:00 16:09:00 e Insulin r Specialties 1h3-7849 -b l ce8-238ee6 Mi nn 91ff49 2014-12-28 2014-12-28 Alternativ nullFlavo [place] fe 266b64-m Memoria 16:09:00 16:09:00 e Insulin r Specialties bda-40d7 -a l 88d-4974b9 Mi nn 3a21f9 2014-12-28 2014-12-28 Alternativ nullFlavo [place] 36 496570-o Memoria 16:09:00 16:09:00 e Insulin r Specialties 8z8-13a9 -9 l 853-0266c6 Mi nn 623ca4 2014-12-28 2014-12-28 Alternativ nullFlavo [place] 6a 2236dd-9 Memoria 16:09:00 16:09:00 e Insulin r Specialties 33c-45d5 -b l x33-j36mq0 Mi nn 810822 3191-11-06 2014-12-28 Alternativ nullFlavo [place] 93 7b9129-e Memoria 16:09:00 16:09:00 e Insulin r Specialties h03-8278 -9 l d42-27y4c3 Mi nn 177252 9954-11-06 2014-12-28 Alternativ nullFlavo [place] 2a 666498-5 Memoria 16:09:00 16:09:00 e Insulin r Specialties h68-9w29 -b l k50-2zgj23 Mi nn 42610w 2014-12-28 2014-12-28 Alternativ nullFlavo [place] b1 583676-i Memoria 16:09:00 16:09:00 e Insulin r Specialties 0bf-499e -9 l ee4-ec6a7f Mi nn 8310a8 2014-12-28 2014-12-28 Alternativ nullFlavo [place] f2 606r09-o Memoria 16:09:00 16:09:00 e Insulin r Specialties 78f-446e -b l 4k6-f455a3 Mi nn 2fc7f3 2014-12-28 2014-12-28 Alternativ nullFlavo [place] 14 y9768z-6 Memoria 16:09:00 16:09:00 e Insulin r Specialties dda-47dc -b l w2d-c6ftny Mi nn c8f9b2 2014-12-28 2014-12-28 Alternativ nullFlavo [place] a3 9y990t-3 Memoria 16:09:00 16:09:00 e Insulin r Specialties 6y1-0s67 -a l 2cb-5c4db5 Mi nn e307b5 2014-12-28 2014-12-28 Alternativ nullFlavo [place] bc 6k0769-8 Memoria 16:09:00 16:09:00 e Insulin r Specialties 3g4-02x9 -9 l 6k0-9798wc [facility] nn 67z939 2014-12-28 2014-12-28 Alternativ nullFlavo [place] 31 4nho47-t Memoria 16:09:00 16:09:00 e Insulin r Specialties aae-4197 -b l ab5-092e38 [facility] nn b4e93c 2014-12-28 2014-12-28 Alternativ nullFlavo [place] 0d 656476-8 Memoria 16:09:00 16:09:00 e Insulin r Specialties 91b-4b8b -b l 20e-4272bc [facility] nn c68bca 2014-12-28 2014-12-28 Alternativ nullFlavo [place] 3f 299b10-9 Memoria 16:09:00 16:09:00 e Insulin r Specialties m09-242p -9 l f16-67b425 [facility] nn 12f95e 2014-12-28 2014-12-28 Alternativ nullFlavo [place] de d7p3i9-c Memoria 16:09:00 16:09:00 e Insulin r Specialties 9ed-4804 -b l 2h7-y1k75j [facility] nn 8b21db 2014-12-28 2014-12-28 Alternativ nullFlavo [place] b3 5i34e2-m Memoria 16:09:00 16:09:00 e Insulin r Specialties 512-4f46 -b l 325-6fbfe2 [facility] nn e964e8 2014-12-28 2014-12-28 Alternativ nullFlavo [place] 05 126s77-b Memoria 16:09:00 16:09:00 e Insulin r Specialties 960-42ae -a l 2g2-ry761m [facility] nn 7b8b50 2014-12-28 2014-12-28 Alternativ nullFlavo [place] 70 27r94y-o Memoria 16:09:00 16:09:00 e Insulin r Specialties s1h-4d7g -a l 36a-33eab4 [facility] nn 545dbe 2014-12-28 2014-12-28 Alternativ nullFlavo [place] 4a th7957-1 Memoria 16:09:00 16:09:00 e Insulin r Specialties 230-4b56 -a l g69-t4n855 Mi nn b61d9c 2014-12-28 2014-12-28 Alternativ nullFlavo [place] ad 993o31-7 Memoria 15:09:00 15:09:00 e Insulin r Specialties f20-36a8 -8 l k0e-0237f1 Mi nn e7cc8a 2014-12-28 2014-12-28 Alternativ nullFlavo [place] 1a j8k19c-k Memoria 15:09:00 15:09:00 e Insulin r Specialties 322-4494 -8 l cea-b81b06 Mi nn 4395c1 2014-12-28 2014-12-28 Alternativ nullFlavo [place] 23 hr434f-6 Memoria 15:09:00 15:09:00 e Insulin r Specialties 80f-44b9 -9 l k30-mrd3k5 Mi nn 935fc1 2014-12-28 2014-12-28 Alternativ nullFlavo [place] 55 yhc2o5-1 Mem[facility] 15:09:00 15:09:00 e Insulin r Specialties c35-4xrt -8 l 442-vw4339 Mi nn 80da43 2014-12-28 2014-12-28 Alternativ nullFlavo [place] 2c 9dcg20-3 Mem[facility] 15:09:00 15:09:00 e Insulin r Specialties 4ed-4e35 -b l cbd-9073eb Mi nn 6cce31 2014-12-28 2014-12-28 Alternativ nullFlavo [place] e0 g05973-d Memoria 15:09:00 15:09:00 e Insulin r Specialties 23d-4ca9 -8 l t49-105115 Mi nn 96u290 2014-12-28 2014-12-28 Alternativ nullFlavo [place] 08 80v9gs-q Memoria 15:09:00 15:09:00 e Insulin r Specialties b65-4d8d -8 l 108-a4e8bc Mi nn 9e5c5e 2014-12-28 2014-12-28 Alternativ nullFlavo [place] dd 45aj56-h [facility] 15:09:00 15:09:00 e Insulin r Specialties 5k8-1808 -a l 72d-a11eae Mi nn 033e95 2014-12-28 2014-12-28 Alternativ nullFlavo [place] 30 p987yo-8 Memoria 15:09:00 15:09:00 e Insulin r Specialties ae6-4aeb -b l 63e-931c4f Mi nn 21bfe3 2014-12-28 2014-12-28 Alternativ nullFlavo [place] 81 e894d9-6 Memoria 15:09:00 15:09:00 e Insulin r Specialties 04b-45ec -b l 700-9b6e3b Mi nn 7ab44d 2014-12-28 2014-12-28 Alternativ nullFlavo [place] 9c 8j7965-p Memoria 15:09:00 15:09:00 e Insulin r Specialties 3aa-40e6 -8 l 2bc-6a7e32 Mi nn f79f7c 2014-12-28 2014-12-28 Alternativ nullFlavo [place] c0 295014-6 [facility] 15:09:00 15:09:00 e Insulin r Specialties 6n3-0v71 -a l cc9-08e5de Mi nn y42515 2014-12-28 2014-12-28 Alternativ nullFlavo [place] 41 11m134-4 Memoria 15:09:00 15:09:00 e Insulin r Specialties 766-41a0 -8 l u7d-8r6m16 Mi nn d21c18 2014-12-28 2014-12-28 Alternativ nullFlavo [place] d0 gq7ba7-p Mem[facility] 15:09:00 15:09:00 e Insulin r Specialties s05-311q -a l 785-49w086 Mi nn 049843 0813-11-06 2014-12-28 Alternativ nullFlavo [place] 91 924c43-2 Memoria 15:09:00 15:09:00 e Insulin r Specialties 857-4344 -b l x88-915758 Mi nn 6m5659 2014-12-28 2014-12-28 Alternativ nullFlavo [place] 45 8f5t9f-7 Memoria 15:09:00 15:09:00 e Insulin r Specialties 605-4bc5 -b l 3u5-3ui6un Mi nn 3f2feb 2014-12-28 2014-12-28 Alternativ nullFlavo [place] 3e vw28t9-7 [facility] 15:09:00 15:09:00 e Insulin r Specialties 262-4733 -8 l p55-pk29p2 Mi nn 67713q 2014-12-28 2014-12-28 Alternativ nullFlavo [place] 29 n5w06o-8 Mem[facility] 15:09:00 15:09:00 e Insulin r Specialties 012-4259 -b l 27b-2q9939 Mi nn 8dbc3a 2014-12-28 2014-12-28 Alternativ nullFlavo [place] 90 96y67e-h Memoria 15:09:00 15:09:00 e Insulin r Specialties 993-43ba -a l c48-60v239 Mi nn bf71ec 2014-12-28 2014-12-28 Alternativ nullFlavo [place] 3b z96165-0 Memoria 15:09:00 15:09:00 e Insulin r Specialties n3h-7ubc -8 l y89-3161g7 Mi nn 9u5300 2014-12-28 2014-12-28 Alternativ nullFlavo [place] 55 yut3q7-0 Mem[facility] 15:09:00 15:09:00 e Insulin r Specialties o52-9vfy -8 l 442-pp0796 Mi nn 80da43 2014-12-28 2014-12-28 Alternativ nullFlavo [place] ad 448v74-9 [facility] 15:09:00 15:09:00 e Insulin r Specialties a60-07q5 -8 l s9m-8580a2 Mi nn e7cc8a 2014-12-28 2014-12-28 Alternativ nullFlavo [place] 23 ns557h-9 [facility] 15:09:00 15:09:00 e Insulin r Specialties 80f-44b9 -9 l m10-aov7e6 Mi nn 935fc1 2014-12-28 2014-12-28 Alternativ nullFlavo [place] 1a u8z55u-z [facility] 15:09:00 15:09:00 e Insulin r Specialties 322-4494 -8 l cea-b81b06 Mi nn 4395c1 2014-12-28 2014-12-28 Alternativ nullFlavo [place] dd 59jb77-o Mem[facility] 15:09:00 15:09:00 e Insulin r Specialties 4s2-0355 -a l 72d-a11eae Mi nn 033e95 2014-12-28 2014-12-28 Alternativ nullFlavo [place] 30 y049ih-4 [facility] 15:09:00 15:09:00 e Insulin r Specialties ae6-4aeb -b l 63e-931c4f Mi nn 21bfe3 2014-12-28 2014-12-28 Alternativ nullFlavo [place] 2c 7psn81-6 [facility] 15:09:00 15:09:00 e Insulin r Specialties 4ed-4e35 -b l cbd-9073eb Mi nn 6cce31 2014-12-28 2014-12-28 Alternativ nullFlavo [place] 45 6y4n8n-5 [facility] 15:09:00 15:09:00 e Insulin r Specialties 605-4bc5 -b l 8z5-0rf2ar Mi nn 3f2feb 2014-12-28 2014-12-28 Alternativ nullFlavo [place] 9c 2y1442-n Mem[facility] 15:09:00 15:09:00 e Insulin r Specialties 3aa-40e6 -8 l 2bc-6a7e32 Mi nn f79f7c 2014-12-28 2014-12-28 Alternativ nullFlavo [place] 08 15l2sc-w [facility] 15:09:00 15:09:00 e Insulin r Specialties f32-1h4m -8 l 108-a4e8bc Mi nn 9e5c5e 2014-12-28 2014-12-28 Alternativ nullFlavo [place] e0 y44717-u [facility] 15:09:00 15:09:00 e Insulin r Specialties 23d-4ca9 -8 l c21-289302 Mi nn 50c769 2014-12-28 2014-12-28 Alternativ nullFlavo [place] 81 l212t6-0 Mem[facility] 15:09:00 15:09:00 e Insulin r Specialties 04b-45ec -b l 700-9b6e3b [facility] nn 7ab44d 2014-12-28 2014-12-28 Alternativ nullFlavo [place] 91 376k39-0 Mem[facility] 15:09:00 15:09:00 e Insulin r Specialties 857-4344 -b l c67-800948 [facility] nn 3b5562 2014-12-28 2014-12-28 Alternativ nullFlavo [place] 29 a1j82l-7 [facility] 15:09:00 15:09:00 e Insulin r Specialties 012-4259 -b l 27b-3r9864 [facility] nn 8dbc3a 2014-12-28 2014-12-28 Alternativ nullFlavo [place] 90 19e94d-a Mem[facility] 15:09:00 15:09:00 e Insulin r Specialties 993-43ba -a l q23-08t020 [facility] nn bf71ec 2014-12-28 2014-12-28 Alternativ nullFlavo [place] c0 779422-7 Mem[facility] 15:09:00 15:09:00 e Insulin r Specialties 5j6-2m98 -a l cc9-08e5de [facility] nn h38280 2014-12-28 2014-12-28 Alternativ nullFlavo [place] 41 71k962-9 Mem[facility] 15:09:00 15:09:00 e Insulin r Specialties 766-41a0 -8 l b4f-9t7r51 [facility] nn d21c18 2014-12-28 2014-12-28 Alternativ nullFlavo [place] d0 pv2gm3-p [facility] 15:09:00 15:09:00 e Insulin r Specialties u26-703t -a l 785-03h084 [facility] nn 090575 8864-11-06 2014-12-28 Alternativ nullFlavo [place] 3e kx96m8-8 [facility] 15:09:00 15:09:00 e Insulin r Specialties 262-4733 -8 l j48-sp03y9 [facility] nn 05672l 2014-12-28 2014-12-28 Alternativ nullFlavo [place] 3b w32032-9 [facility] 15:09:00 15:09:00 e Insulin r Specialties z1w-4jxt -8 l q59-3872x9 [facility] nn 2m0803 2014-12-28 2014-12-28 Outpatient [facility] [place] 3975 81 eClinic 10:09:00 10:09:00 [employer] [facility] es 2014-12-28 2014-12-28 Test nullFlavo [place] 48d85 e4a-2 Memoria 00:53:00 00:53:00 results r Specialties 885-40c1-b l 40c-444d5c Mi nn ebad73 2014-12-28 2014-12-28 Test nullFlavo [place] 6c06d e50-d Mem[facility] 00:53:00 00:53:00 results r Specialties 090-4af2-a l 49f-b85d3a [facility] nn 0384d4 2014-12-28 2014-12-28 Test nullFlavo [place] 5d784 3b4-0 [facility] 00:53:00 00:53:00 results r Specialties 5f1-03xg-6 l 6l4-5823m5 [facility] nn e17b05 2014-12-28 2014-12-28 Test nullFlavo [place] 8723b 165-9 Mem[facility] 00:53:00 00:53:00 results r Specialties g09-6779-5 l 682-264b13 [facility] nn c153f3 2014-12-28 2014-12-28 Test nullFlavo [place] cd861 43b-6 [facility] 00:53:00 00:53:00 results r Specialties 786-4a18-9 l y35-8b2xrq [facility] nn 3ee2e6 2014-12-28 2014-12-28 Test nullFlavo [place] e8acf 895-4 [facility] 00:53:00 00:53:00 results r Specialties 199-452b-9 l 1db-fd746m [facility] nn 77i283 2014-12-28 2014-12-28 Test nullFlavo [place] [address] 333-5 [facility] 00:53:00 00:53:00 results r Specialties cd4-4326-a l 16a-zx5207 [facility] nn 32043g 2014-12-28 2014-12-28 Test nullFlavo [place] [address] 3d7-5 [facility] 00:53:00 00:53:00 results r Specialties l99-9zg6-i l bb0-ix4264 [facility] nn 0659a2 2014-12-28 2014-12-28 Test nullFlavo [place] [address] 287-1 [facility] 00:53:00 00:53:00 results r Specialties s53-9805-e l s74-00lrgy [facility] nn 5fc60b 2014-12-28 2014-12-28 Test nullFlavo [place] 438be 7e2-3 [facility] 00:53:00 00:53:00 results r Specialties dc0-44b4-a l dd1-n20992 [facility] nn 3191b2 2014-12-28 2014-12-28 Test nullFlavo [place] 1a893 e17-c [facility] 00:53:00 00:53:00 results r Specialties be3-4831-9 l 2l0-1843f1 [facility] nn 457a36 2014-12-28 2014-12-28 Test nullFl[facility] [place] ba03e 59e-e [facility] 00:53:00 00:53:00 results r Specialties 914-4786-9 l 687-fafa8f [facility] nn c4e39b 2014-12-28 2014-12-28 Test nullFl[facility] [place] d9cf6 2fa-8 [facility] 00:53:00 00:53:00 results r Specialties 9bd-4aa1-9 l [id number]-a7673p [facility] nn 18a7e0 2014-12-28 2014-12-28 Test nullFlavo [place] 334df 32c-8 [facility] 00:53:00 00:53:00 results r Specialties 02c-494f-b l 6fb-94119k [facility] nn 017087 5107-11-06 2014-12-28 Test nullFlavo [place] b6478 6b8-e [facility] 00:53:00 00:53:00 results r Specialties i24-5ak8-6 l 96f-7d5c9b [facility] nn 57505u 2014-12-28 2014-12-28 Test nullFl[facility] [place] 6de0c f71-f [facility] 00:53:00 00:53:00 results r Specialties 301-411d-9 l h58-h270zd [facility] nn 9b5c1d 2014-12-28 2014-12-28 Test nullFlavo [place] 0d4dc a72-a [facility] 00:53:00 00:53:00 results r Specialties 90a-4cd7-8 l 6r4-9873z7 [facility] nn 1m3781 2014-12-28 2014-12-28 Test nullFlavo [place] 49ef5 6e2-3 [facility] 00:53:00 00:53:00 results r Specialties 802-4db7-9 l i41-lr7wwd [facility] nn 1e11b2 2014-12-28 2014-12-28 Test nullFlavo [place] 10e02 12f-6 [facility] 00:53:00 00:53:00 results r Specialties l82-5788-b l 00c-fa15ee [facility] nn 216b96 2014-12-28 2014-12-28 Test nullFlavo [place] 9b37f 99f-c [facility] 00:53:00 00:53:00 results r Specialties 8q1-89j1-i l 02b-89aea1 [facility] nn cd00c0 2014-12-28 2014-12-28 Test nullFlavo [place] [address] 597-c [facility] 00:53:00 00:53:00 results r Specialties 722-415b-8 l [id number] [facility] nn 0i3135 2014-12-28 2014-12-28 Test nullFlavo [place] 48d85 e4a-2 [facility] 00:53:00 00:53:00 results r Specialties 885-40c1-b l 40c-444d5c [facility] ebad73 2014-12-28 2014-12-28 Test nullFlavo [place] e8acf 895-4 Memoria 00:53:00 00:53:00 results r Specialties 199-452b-9 l 1db-fu389q [facility] 63z279 2014-12-28 2014-12-28 Test nullFlavo [place] cd861 43b-6 Memoria 00:53:00 00:53:00 results r Specialties 786-4a18-9 l c56-2j3jmd [facility] nn 3ee2e6 2014-12-28 2014-12-28 Test nullFl[place] 39367 333-5 Memoria 00:53:00 00:53:00 results r Specialties cd4-4326-a l 16a-ss8552 [facility] nn 10730g 2014-12-28 2014-12-28 Test nullFl[facility] [place] 5d784 3b4-0 Memoria 00:53:00 00:53:00 results r Specialties 9x0-28iy-1 l 0r7-0580v3 Mi nn e17b05 2014-12-28 2014-12-28 Test [facility]Fl[facility] [place] 6c06d e50-d Memoria 00:53:00 00:53:00 results r Specialties 090-4af2-a l 49f-b85d3a Mi nn 0384d4 2014-12-28 2014-12-28 Test nullFl[facility] [place] 8723b 165-9 Memoria 00:53:00 00:53:00 results r Specialties j15-7457-7 l 682-264b13 [facility] nn c153f3 2014-12-28 2014-12-28 Test nullFl[place] 52624 3d7-5 Memoria 00:53:00 00:53:00 results r Specialties g52-1nq3-n l bb0-zn0052 [facility] nn 0659a2 2014-12-28 2014-12-28 Test [facility]Fl[facility] [place] 49ef5 6e2-3 Memoria 00:53:00 00:53:00 results r Specialties 802-4db7-9 l h81-vk1ece [facility] nn 1e11b2 2014-12-28 2014-12-28 Test [facility]Fl[facility] [place] d9cf6 2fa-8 Memoria 00:53:00 00:53:00 results r Specialties 9bd-4aa1-9 l 8ad-h6963h [facility] nn 18a7e0 2014-12-28 2014-12-28 Test [place]Fl[facility] [place] 438be 7e2-3 Memoria 00:53:00 00:53:00 results r Specialties dc0-44b4-a l dd1-i81632 [facility] nn 3191b2 2014-12-28 2014-12-28 Test [facility] [place] ba03e 59e-e Memoria 00:53:00 00:53:00 results r Specialties 914-4786-9 l 687-fafa8f Mi nn c4e39b 2014-12-28 2014-12-28 Test nullFl[facility] [place] 334df 32c-8 Memoria 00:53:00 00:53:00 results r Specialties 02c-494f-b l 6fb-09784z [facility] nn 975552 8772-11-06 2014-12-28 Test nullFl[place] 84677 287-1 Memoria 00:53:00 00:53:00 results r Specialties m82-4421-q l i35-38lkxz Mi nn 5fc60b 2014-12-28 2014-12-28 Test nullFl[facility] [place] 0d4dc a72-a Memoria 00:53:00 00:53:00 results r Specialties 90a-4cd7-8 l 5t1-8558f6 [facility] nn 9k5595 2014-12-28 2014-12-28 Test nullFl[facility] [place] 1a893 e17-c Memoria 00:53:00 00:53:00 results r Specialties be3-4831-9 l 8m3-8174b4 [facility] nn 457a36 2014-12-28 2014-12-28 Test [facility]Fl[facility] [place] 6de0c f71-f Memoria 00:53:00 00:53:00 results r Specialties 301-411d-9 l y04-o915sg [facility] nn 9b5c1d 2014-12-28 2014-12-28 Test [facility] [place] 10e02 12f-6 Memoria 00:53:00 00:53:00 results r Specialties b07-4356-d l 00c-fa15ee [facility] nn 216b96 2014-12-28 2014-12-28 Test [place]Fl[facility] [place] b6478 6b8-e Memoria 00:53:00 00:53:00 results r Specialties x07-4rb9-8 l 96f-7d5c9b [facility] nn 34449v 2014-12-28 2014-12-28 Test [place]Fl[place] 61565 597-c Memoria 00:53:00 00:53:00 results r Specialties 722-415b-8 l 903-955813 [facility] nn 6r1424 2014-12-28 2014-12-28 Test nullFl[facility] [place] 9b37f 99f-c Memoria 00:53:00 00:53:00 results r Specialties 9k2-88i3-z l 02b-89aea1 [facility] nn cd00c0 2014-12-27 2014-12-27 Test nullFl[facility] [place] 8f0f2 b4a-7 Memoria 23:53:00 23:53:00 results r Specialties 3ef-4238-9 l ab4-249a9c Mi nn d53b25 2014-12-27 2014-12-27 Test nullFl[facility] [place] 74d70 4d2-6 Memoria 23:53:00 23:53:00 results r Specialties 762-4f0c-a l t06-ul5b39 Mi nn 2n2574 2014-12-27 2014-12-27 Test nullFl[facility] [place] 4bb32 13b-c Memoria 23:53:00 23:53:00 results r Specialties 97f-44da-a l 91b-w23583 Mi nn 460e30 2014-12-27 2014-12-27 Test nullFl[facility] [place] 6f502 ff3-4 Memoria 23:53:00 23:53:00 results r Specialties 762-4158-9 l 00f-6e17d7 Mi nn b9c5ce 2014-12-27 2014-12-27 Test nullFl[facility] [place] 4670e 02d-0 Memoria 23:53:00 23:53:00 results r Specialties 490-4136-9 l 8bf-28cf8d Mi nn 7d6e4f 2014-12-27 2014-12-27 Test nullFl[facility] [place] 53d19 e69-7 Memoria 23:53:00 23:53:00 results r Specialties 949-4212-9 l q24-92111o Mi nn 64j234 2014-12-27 2014-12-27 Test nullFl[facility] [place] 416b2 a00-1 Memoria 23:53:00 23:53:00 results r Specialties 082-4d7c-8 l 33d-9w6797 Mi nn 0a5eab 2014-12-27 2014-12-27 Test nullFl[facility] [place] 2636a 742-a Memoria 23:53:00 23:53:00 results r Specialties 046-4b49-b l 2aa-1de03a Mi nn ab6ded 2014-12-27 2014-12-27 Test nullFl[facility] [place] ba458 529-9 Memoria 23:53:00 23:53:00 results r Specialties l6i-3429-6 l 110-408ffb [facility] nn cc1e69 2014-12-27 2014-12-27 Test nullFl[facility] [place] 59ff2 f22-b Memoria 23:53:00 23:53:00 results r Specialties 2a7-4550-6 l 88e-e108a5 [facility] nn u69205 2014-12-27 2014-12-27 Test nullFl[facility] [place] d90c1 f34-2 Memoria 23:53:00 23:53:00 results r Specialties k84-097l-0 l 721-0l4227 [facility] nn 25a97d 2014-12-27 2014-12-27 Test nullFl[facility] [place] 7bbca abb-e Memoria 23:53:00 23:53:00 results r Specialties bf0-4736-9 l o27-iok51j [facility] nn 109fe3 2014-12-27 2014-12-27 Test nullFl[place] 93623 9a2-e Memoria 23:53:00 23:53:00 results r Specialties cc4-4fb6-b l 843-o5243d [facility] nn 392df9 2014-12-27 2014-12-27 Test nullFl[facility] [place] 2c126 35d-b Memoria 23:53:00 23:53:00 results r Specialties 16b-4987-b l cc5-g8n032 [facility] nn 1d1c77 2014-12-27 2014-12-27 Test null[facility] [place] 90dfe 545-2 Memoria 23:53:00 23:53:00 results r Specialties 63b-4e72-a l 8a2-003442 [facility] nn x4379s 2014-12-27 2014-12-27 Test nullFl[facility] [place] efac4 56f-0 Memoria 23:53:00 23:53:00 results r Specialties f4s-51h7-a l ac1-4247ce [facility] nn e66745 2014-12-27 2014-12-27 Test nullFl[facility] [place] 65c6a 42a-a Memoria 23:53:00 23:53:00 results r Specialties da4-4d4d-a l 1ea-6c52bb [facility] nn c8e6b7 2014-12-27 2014-12-27 Test [facility]Fl[facility] [place] 0d787 4c7-d Memoria 23:53:00 23:53:00 results r Specialties u18-3z7f-7 l 60d-00171z Mi nn 454793 9617-11-05 2014-12-27 Test nullFl[facility] [place] 73aef 69f-8 Memoria 23:53:00 23:53:00 results r Specialties 103-4b1e-b l 0ec-94ab79 Mi nn 251eeb 2014-12-27 2014-12-27 Test nullFl[facility] [place] 117eb c97-3 Memoria 23:53:00 23:53:00 results r Specialties 032-4aab-8 l daf-4n396e Mi nn 38m934 2014-12-27 2014-12-27 Test nullFl[facility] [place] 6f502 ff3-4 Memoria 23:53:00 23:53:00 results r Specialties 762-4158-9 l 00f-6e17d7 Mi nn b9c5ce 2014-12-27 2014-12-27 Test nullFl[facility] [place] 8f0f2 b4a-7 Memoria 23:53:00 23:53:00 results r Specialties 3ef-4238-9 l ab4-249a9c Mi nn d53b25 2014-12-27 2014-12-27 Test nullFl[facility] [place] 4bb32 13b-c Memoria 23:53:00 23:53:00 results r Specialties 97f-44da-a l 91b-b44241 Mi nn 460e30 2014-12-27 2014-12-27 Test nullFl[facility] [place] 74d70 4d2-6 Memoria 23:53:00 23:53:00 results r Specialties 762-4f0c-a l x65-yi0w48 Mi nn 2w6963 2014-12-27 2014-12-27 Test nullFl[facility] [place] 2636a 742-a Memoria 23:53:00 23:53:00 results r Specialties 046-4b49-b l 2aa-1de03a Mi nn ab6ded 2014-12-27 2014-12-27 Test nullFl[facility] [place] ba458 529-9 Memoria 23:53:00 23:53:00 results r Specialties z5h-3935-8 l 110-408ffb Mi nn cc1e69 2014-12-27 2014-12-27 Test nullFl[facility] [place] 4670e 02d-0 Memoria 23:53:00 23:53:00 results r Specialties 490-4136-9 l 8bf-28cf8d Mi nn 7d6e4f 2014-12-27 2014-12-27 Test nullFl[facility] [place] efac4 56f-0 Memoria 23:53:00 23:53:00 results r Specialties y7z-87c5-o l ac1-4247ce Mi nn d60932 2014-12-27 2014-12-27 Test nullFl[facility] [place] d90c1 f34-2 Memoria 23:53:00 23:53:00 results r Specialties h81-623m-2 l 721-6o4943 Mi nn 25a97d 2014-12-27 2014-12-27 Test nullFl[facility] [place] 416b2 a00-1 Memoria 23:53:00 23:53:00 results r Specialties 082-4d7c-8 l 33d-9d2589 [facility] nn 0a5eab 2014-12-27 2014-12-27 Test nullFl[facility] [place] 53d19 e69-7 Memoria 23:53:00 23:53:00 results r Specialties 949-4212-9 l y12-49208a [facility] nn 76d214 2014-12-27 2014-12-27 Test nullFl[facility] [place] 59ff2 f22-b Memoria 23:53:00 23:53:00 results r Specialties 5d3-3147-0 l 88e-e108a5 [facility] nn r07118 2014-12-27 2014-12-27 Test nullFl[facility] [place] 90dfe 545-2 Memoria 23:53:00 23:53:00 results r Specialties 63b-4e72-a l 5r1-739245 Mi nn t2783o 2014-12-27 2014-12-27 Test nullFl[facility] [place] 0d787 4c7-d Memoria 23:53:00 23:53:00 results r Specialties h45-5b8q-7 l 60d-54033z Mi nn 870223 0509-11-05 2014-12-27 Test nullFl[facility] [place] 73aef 69f-8 Memoria 23:53:00 23:53:00 results r Specialties 103-4b1e-b l 0ec-94ab79 Mi nn 251eeb 2014-12-27 2014-12-27 Test nullFl[facility] [place] 7bbca abb-e Memoria 23:53:00 23:53:00 results r Specialties bf0-4736-9 l w97-egv20k Mi nn 109fe3 2014-12-27 2014-12-27 Test nullFl[facility] [place] 14793 9a2-e Memoria 23:53:00 23:53:00 results r Specialties cc4-4fb6-b l 843-x0748i Mi nn 392df9 2014-12-27 2014-12-27 Test nullFl[facility] [place] 2c126 35d-b Memoria 23:53:00 23:53:00 results r Specialties 16b-4987-b l cc5-u4c475 Mi nn 1d1c77 2014-12-27 2014-12-27 Test nullFl[facility] [place] 65c6a 42a-a Memoria 23:53:00 23:53:00 results r Specialties da4-4d4d-a l 1ea-6c52bb Mi nn c8e6b7 2014-12-27 2014-12-27 Test nullFl[facility] [place] 117eb c97-3 Memoria 23:53:00 23:53:00 results r Specialties 032-4aab-8 l daf-6m045s Mi nn 23r630 2014-12-27 2014-12-27 2wk f/u [facility] [place] 4c8c8 723-f Memoria 20:30:00 20:30:00 r Specialties y20-72mn-8 l f8i-85f93b Mi nn edf15f 2014-12-27 2014-12-27 2wk f/u [facility] [place] 0caa0 0a3-e Memoria 20:30:00 20:30:00 r Specialties 742-4bcd-8 l 3p8-2646i6 Mi nn 9d89dc 2014-12-27 2014-12-27 2wk f/u [place] [place] f63f5 bdf-8 Memoria 20:30:00 20:30:00 r Specialties a2f-9n6g-t l 241-64cf05 Mi nn 2d0b4d 2014-12-27 2014-12-27 2wk f/u [place] [place] 48a49 46a-a Memoria 20:30:00 20:30:00 r Specialties 583-440e-8 l 3t2-50a514 Mi nn 78dad1 2014-12-27 2014-12-27 2wk f/u [facility] [place] 50c78 5e5-6 Memoria 20:30:00 20:30:00 r Specialties 415-4c11-8 l 851-473be0 Mi nn abcfd1 2014-12-27 2014-12-27 2wk f/u [place] [place] 233b2 c19-8 Memoria 20:30:00 20:30:00 r Specialties 29b-42e4-b l cac-8956c6 Mi nn 8b50f3 2014-12-27 2014-12-27 2wk f/u [place] [place] e8332 111-2 Memoria 20:30:00 20:30:00 r Specialties 62c-42d0-b l o98-pc43z2 [facility] nn 949b31 2014-12-27 2014-12-27 2wk f/u [place] a0b74 11d-3 Memoria 20:30:00 20:30:00 r Specialties 8d1-5h0w-0 l 9n7-8w9arc Mi nn b3cd67 2014-12-27 2014-12-27 2wk f/u [place] [place] a6de5 f69-b Memoria 20:30:00 20:30:00 r Specialties fbf-4c1c-8 l 3h0-61gi4k [facility] nn d10acc 2014-12-27 2014-12-27 2wk f/u [place] [place] a653d dcb-8 Memoria 20:30:00 20:30:00 r Specialties df9-43a7-9 l ff3-29446k [facility] nn 26s371 2014-12-27 2014-12-27 2wk f/u [place] [place] b1d91 fa1-0 Memoria 20:30:00 20:30:00 r Specialties 083-4118-8 l 1b3-9x3vy1 Mi nn j9k230 2014-12-27 2014-12-27 2wk f/u [place] [place] 33fff 106-7 Mem[facility] 20:30:00 20:30:00 r Specialties o99-2f4m-7 l 70b-22f3cb Mi nn a4be2b 2014-12-27 2014-12-27 2wk f/u [place] [place] 551fc f53-9 Memoria 20:30:00 20:30:00 r Specialties 2v7-6455-1 l 92b-5k0474 Mi nn 0abd35 2014-12-27 2014-12-27 2wk f/u [place] [place] 9cc11 027-c Memoria 20:30:00 20:30:00 r Specialties 1s1-2773-5 l 838-0154e5 Mi nn 013726 1568-11-05 2014-12-27 2wk f/u [facility] [place] ecbcc 33a-6 Memoria 20:30:00 20:30:00 r Specialties w76-8v0u-4 l 023-imj763 Mi nn 4e9fb8 2014-12-27 2014-12-27 2wk f/u [facility] [place] ce186 cfc-4 Memoria 20:30:00 20:30:00 r Specialties bf1-4d47-a l 60c-daeb7b Mi nn zg7888 2014-12-27 2014-12-27 2wk f/u [facility] [place] 282ca 592-e Memoria 20:30:00 20:30:00 r Specialties 367-4949-b l 36a-5u6103 Mi nn 643474 9938-11-05 2014-12-27 2wk f/u [facility] [place] 0df06 8f1-7 Memoria 20:30:00 20:30:00 r Specialties h3t-5mo0-w l 213-617f37 Mi nn fbe9b8 2014-12-27 2014-12-27 2wk f/u [facility] [place] e33eb e51-7 Memoria 20:30:00 20:30:00 r Specialties g39-79vx-1 l 8ae-9e211o Mi nn 0a85e1 2014-12-27 2014-12-27 2wk f/u [place] 03802 890-c Memoria 20:30:00 20:30:00 r Specialties 014-466d-b l 4v4-41472a Mi nn d2d4a2 2014-12-27 2014-12-27 2wk f/u [place] [place] 4b11f b30-b Memoria 20:30:00 20:30:00 r Specialties 4l0-96a5-2 l kizzy-580ade Mi nn 1e8edc 2014-12-27 2014-12-27 2wk f/u [place] [place] 420e5 133-e Memoria 20:30:00 20:30:00 r Specialties 203-4063-9 l 6cf-adcc35 Mi nn 9cfab7 2014-12-27 2014-12-27 2wk f/u [place] [place] bfbea aae-7 Memoria 20:30:00 20:30:00 r Specialties 863-4936-8 l acd-4u5254 Mi nn edb47d 2014-12-27 2014-12-27 2wk f/u [place] [place] 0caa0 0a3-e Memoria 20:30:00 20:30:00 r Specialties 742-4bcd-8 l 4x1-4714o0 Mi nn 9d89dc 2014-12-27 2014-12-27 2wk f/u [place] [place] 50c78 5e5-6 Memoria 20:30:00 20:30:00 r Specialties 415-4c11-8 l 851-473be0 Mi nn abcfd1 2014-12-27 2014-12-27 2wk f/u [place] [place] 4c8c8 723-f Memoria 20:30:00 20:30:00 r Specialties s61-12ey-3 l v4e-81u50o Mi nn edf15f 2014-12-27 2014-12-27 2wk f/u [facility] [place] a0b74 11d-3 Memoria 20:30:00 20:30:00 r Specialties 5m2-3w0q-8 l 3h2-1z9nly Mi nn b3cd67 2014-12-27 2014-12-27 2wk f/u [place] [place] e8332 111-2 Mem[facility] 20:30:00 20:30:00 r Specialties 62c-42d0-b l h06-ud89p6 Mi nn 949b31 2014-12-27 2014-12-27 2wk f/u [place] [place] a6de5 f69-b Mem[facility] 20:30:00 20:30:00 r Specialties fbf-4c1c-8 l 2q4-81fg6z Mi nn d10acc 2014-12-27 2014-12-27 2wk f/u [facility] [place] 48a49 46a-a Mem[facility] 20:30:00 20:30:00 r Specialties 583-440e-8 l 9t0-75f482 Mi nn 78dad1 2014-12-27 2014-12-27 2wk f/u [facility] [place] f63f5 bdf-8 Memoria 20:30:00 20:30:00 r Specialties o7y-8b4q-r l 241-64cf05 Mi nn 2d0b4d 2014-12-27 2014-12-27 2wk f/u [place] [place] 233b2 c19-8 Memoria 20:30:00 20:30:00 r Specialties 29b-42e4-b l cac-8956c6 Mi nn 8b50f3 2014-12-27 2014-12-27 2wk f/u [place] [place] a653d dcb-8 Memoria 20:30:00 20:30:00 r Specialties df9-43a7-9 l ff3-41640l Mi nn 06d681 2014-12-27 2014-12-27 2wk f/u [place] 03830 890-c Memoria 20:30:00 20:30:00 r Specialties 014-466d-b l 6m0-71503d Mi nn d2d4a2 2014-12-27 2014-12-27 2wk f/u [place] [place] ecbcc 33a-6 Memoria 20:30:00 20:30:00 r Specialties q22-0n6t-5 l 023-htx441 Im nn 4e9fb8 2014-12-27 2014-12-27 2wk f/u [place] [place] 33fff 106-7 Mem[facility] 20:30:00 20:30:00 r Specialties p36-0h6p-6 l 70b-22f3cb Mi nn a4be2b 2014-12-27 2014-12-27 2wk f/u [place] [place] 9cc11 027-c Memoria 20:30:00 20:30:00 r Specialties 9u9-4740-7 l 838-0154e5 Mi nn 266148 9288-11-05 2014-12-27 2wk f/u [place] [place] ce186 cfc-4 Memoria 20:30:00 20:30:00 r Specialties bf1-4d47-a l 60c-daeb7b Mi nn hw5394 2014-12-27 2014-12-27 2wk f/u [facility] [place] b1d91 fa1-0 Mem[facility] 20:30:00 20:30:00 r Specialties 083-4118-8 l 2m1-0v5rm0 Mi nn g1g608 2014-12-27 2014-12-27 2wk f/u [place] [place] e33eb e51-7 Mem[facility] 20:30:00 20:30:00 r Specialties l62-81ip-1 l 8ae-9y684f Mi nn 0a85e1 2014-12-27 2014-12-27 2wk f/u [place] [place] 551fc f53-9 Mem[facility] 20:30:00 20:30:00 r Specialties 8k2-7227-8 l 92b-2r0621 Mi nn 0abd35 2014-12-27 2014-12-27 2wk f/u [facility] [place] 0df06 8f1-7 Mem[facility] 20:30:00 20:30:00 r Specialties j0m-5ki8-w l 213-617f37 Mi nn fbe9b8 2014-12-27 2014-12-27 2wk f/u [place] [place] 4b11f b30-b [facility] 20:30:00 20:30:00 r Specialties 9h1-66u2-2 l kizzy-580ade Mi nn 1e8edc 2014-12-27 2014-12-27 2wk f/u [place] [place] 282ca 592-e [facility] 20:30:00 20:30:00 r Specialties 367-4949-b l 36a-1o6085 [facility] nn 393065 5057-11-05 2014-12-27 2wk f/u [place] bfbea aae-7 [facility] 20:30:00 20:30:00 r Specialties 863-4936-8 l acd-7c7410 [facility] nn edb47d 2014-12-27 2014-12-27 2wk f/u [place] [place] 420e5 133-e [facility] 20:30:00 20:30:00 r Specialties 203-4063-9 l 6cf-adcc35 [facility] nn 9cfab7 2014-12-27 2014-12-27 2wk f/u [place] f42ee 216-b [facility] 19:30:00 19:30:00 r Specialties 861-495c-b l 997-2f1bde [facility] nn i8k215 2014-12-27 2014-12-27 2wk f/u [place] 9477f 014-7 [facility] 19:30:00 19:30:00 r Specialties p2o-7zw4-t l f58-g0592f [facility] nn 3fad6e 2014-12-27 2014-12-27 2wk f/u [place] b03ac 526-b [facility] 19:30:00 19:30:00 r Specialties 2da-445b-b l 7ad-5q6073 [facility] 0ao830 2014-12-27 2014-12-27 2wk f/u [place] 079c8 649-c [facility] 19:30:00 19:30:00 r Specialties j3k-0z50-3 l 39b-287d0e [facility] nn 8a0991 2014-12-27 2014-12-27 2wk f/u [place] a44f0 ed0-e [facility] 19:30:00 19:30:00 r Specialties o66-64c4-2 l 547-42d45a [facility] nn 75fb4a 2014-12-27 2014-12-27 2wk f/u [place] 633b4 erik-b [facility] 19:30:00 19:30:00 r Specialties 400-46aa-9 l 1h2-5h0e2k [facility] nn 7sd981 2014-12-27 2014-12-27 2wk f/u [place] [place] e69c1 6bb-2 [facility] 19:30:00 19:30:00 r Specialties e74-44yp-m l 546-6f2aeb [facility] nn 1062ba 2014-12-27 2014-12-27 2wk f/u [place] [place] 485cb d48-6 [facility] 19:30:00 19:30:00 r Specialties j04-5j6m-5 l be4-75e45b [facility] nn 9aff20 2014-12-27 2014-12-27 2wk f/u [place] 3c520 tack puller-8 [facility] 19:30:00 19:30:00 r Specialties 9s8-11ed-0 l 166-6e7ca3 [facility] nn 8446c3 2014-12-27 2014-12-27 2wk f/u [place] a2c13 7c4-1 [facility] 19:30:00 19:30:00 r Specialties 6fa-4874-a l fef-536c90 [facility] nn 23e9c7 2014-12-27 2014-12-27 2wk f/u [place] [place] dcbeb 594-8 [facility] 19:30:00 19:30:00 r Specialties 916-4c89-8 l 8ab-92fd51 [facility] nn 688085 3375-11-05 2014-12-27 2wk f/u [place] 251ab bdf-6 [facility] 19:30:00 19:30:00 r Specialties 2d9-667j-n l h10-j8v8o5 [facility] nn 190f1f 2014-12-27 2014-12-27 2wk f/u [place] 3f179 b27-0 [facility] 19:30:00 19:30:00 r Specialties 4dd-40dd-b l 59a-493682 [facility] nn 7c21c4 2014-12-27 2014-12-27 2wk f/u [place] [place] 30dfa 14b-d [facility] 19:30:00 19:30:00 r Specialties 423-42d5-b l 322-f4aa09 Mi nn 3c4e04 2014-12-27 2014-12-27 2wk f/u [place] [place] c46bb b5b-3 [facility] 19:30:00 19:30:00 r Specialties v34-636a-k l bd1-3d65ae Mi nn babc82 2014-12-27 2014-12-27 2wk f/u [facility] [place] 9c797 055-b [facility] 19:30:00 19:30:00 r Specialties cf3-4a31-b l 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-4e7f97 Mi nn 357999 5259-11-05 2014-12-27 2wk f/u [facility] [place] 9477f 014-7 [facility] 19:30:00 19:30:00 r Specialties n6u-8sp9-t l e32-z4065m Mi nn 3fad6e 2014-12-27 2014-12-27 2wk f/u [place] [place] f42ee 216-b [facility] 19:30:00 19:30:00 r Specialties 861-495c-b l 997-2f1bde Mi nn z8j447 2014-12-27 2014-12-27 2wk f/u [place] [place] b0151 fc0-a [facility] 19:30:00 19:30:00 r Specialties 765-4c01-a l 2m7-835hk4 Mi nn aa1af9 2014-12-27 2014-12-27 2wk f/u [facility] [place] e24c8 449-4 [facility] 19:30:00 19:30:00 r Specialties 82b-4792-b l 9u2-864703 Mi nn iz673d 2014-12-27 2014-12-27 2wk f/u nullFlavo [place] b03ac 526-b [facility] 19:30:00 19:30:00 r Specialties 2da-445b-b l 7ad-8w9902 Mi nn [id number] 2014-12-27 2014-12-27 2wk f/u nullFl[facility] [place] 1b080 48b-4 [facility] 19:30:00 19:30:00 r Specialties 612-4488-b l 2ce-236e54 Mi nn [id number] 2014-12-27 2014-12-27 2wk f/u nullFl[facility] [place] e69c1 6bb-2 [facility] 19:30:00 19:30:00 r Specialties k40-15su-j l 546-6f2aeb Mi nn 1062ba 2014-12-27 2014-12-27 2wk f/u nullFl[facility] [place] 485cb d48-6 [facility] 19:30:00 19:30:00 r Specialties l73-0x5c-3 l be4-75e45b Mi nn 9aff20 2014-12-27 2014-12-27 2wk f/u nullFl[facility] [place] 3c520 tack puller-8 [facility] 19:30:00 19:30:00 r Specialties 3q8-20sk-0 l 166-6e7ca3 Mi nn 8446c3 2014-12-27 2014-12-27 2wk f/u nullFl[facility] [place] 079c8 649-c [facility] 19:30:00 19:30:00 r Specialties c7n-7v09-6 l 39b-287d0e Mi nn [id number] 2014-12-27 2014-12-27 2wk f/u nullFl[facility] [place] 54ee8 3d1-7 [facility] 19:30:00 19:30:00 r Specialties 34c-48c5-b l 629-ed14e0 Mi nn 9e68ad 2014-12-27 2014-12-27 2wk f/u nullFl[facility] [place] a2c13 7c4-1 [facility] 19:30:00 19:30:00 r Specialties 6fa-4874-a l fef-536c90 Mi nn 23e9c7 2014-12-27 2014-12-27 2wk f/u nullFl[facility] [place] a44f0 ed0-e [facility] 19:30:00 19:30:00 r Specialties g90-06f9-1 l 547-42d45a Mi nn 75fb4a 2014-12-27 2014-12-27 2wk f/u nullFl[facility] [place] 633b4 erik-b [facility] 19:30:00 19:30:00 r Specialties 400-46aa-9 l 5p2-7l4x3w Mi nn 6fp005 2014-12-27 2014-12-27 2wk f/u nullFl[facility] [place] dcbeb 594-8 [facility] 19:30:00 19:30:00 r Specialties 916-4c89-8 l 8ab-92fd51 Mi nn [id number] 7673-11-05 2014-12-27 2wk f/u nullFl[facility] [place] c46bb b5b-3 [facility] 19:30:00 19:30:00 r Specialties g30-319i-x l bd1-3d65ae Mi nn babc82 2014-12-27 2014-12-27 2wk f/u nullFl[facility] [place] 251ab bdf-6 [facility] 19:30:00 19:30:00 r Specialties 4g0-733k-u l s93-x2s5r0 Mi nn 190f1f 2014-12-27 2014-12-27 2wk f/u nullFl[facility] [place] 30dfa 14b-d [facility] 19:30:00 19:30:00 r Specialties 423-42d5-b l 322-f4aa09 Mi nn 3c4e04 2014-12-27 2014-12-27 2wk f/u nullFl[facility] [place] 3f179 b27-0 [facility] 19:30:00 19:30:00 r Specialties 4dd-40dd-b l 59a-750582 Mi nn 7c21c4 2014-12-27 2014-12-27 2wk f/u nullFl[facility] [place] b0151 fc0-a [facility] 19:30:00 19:30:00 r Specialties 765-4c01-a l 6g6-524fx8 Mi nn aa1af9 2014-12-27 2014-12-27 2wk f/u nullFl[facility] [place] e24c8 449-4 [facility] 19:30:00 19:30:00 r Specialties 82b-4792-b l 3f8-007588 Mi nn sy204r 2014-12-27 2014-12-27 2wk f/u nullFl[facility] [place] 9c797 055-b [facility] 19:30:00 19:30:00 r Specialties cf3-4a31-b l 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-4e7f97 Mi nn 020144 5393-11-05 2014-12-27 2wk f/u nullFl[facility] [place] 54ee8 3d1-7 [facility] 19:30:00 19:30:00 r Specialties 34c-48c5-b l 629-ed14e0 Mi nn 9e68ad 2014-12-27 2014-12-27 2wk f/u nullFl[facility] [place] 1b080 48b-4 [facility] 19:30:00 19:30:00 r Specialties 612-4488-b l 2ce-236e54 Mi nn [id number] 2014-12-27 2014-12-27 Outpatient [facility] [place] [id number] eClinic 18:53:00 18:53:00 [facility] [employer] [facility] 2014-12-27 2014-12-27 Outpatient [facility] [place] [id number] eClinic 14:30:00 14:30:00 [facility] [employer] [facility] 2014-12-24 2014-12-24 lab order nullFlavo [place] 2a0 05x66-8 [facility] 16:14:00 16:14:00 r Specialties 0fe-4d3b-b l 927-ad59ab Mi nn 1c08e0 2014-12-24 2014-12-24 lab order nullFlavo [place] 112 zku0d-5 [facility] 16:14:00 16:14:00 r Specialties 815-41a7-a l fd2-165a49 Mi nn 52053m 2014-12-24 2014-12-24 lab order nullFlavo [place] fda 54a05-g [facility] 16:14:00 16:14:00 r Specialties fb7-4489-a l 845-34df20 Mi nn 681c67 2014-12-24 2014-12-24 lab order nullFl[facility] [place] 29a 807t5-0 [facility] 16:14:00 16:14:00 r Specialties u2y-45q0-c l x24-p1u545 Mi nn d5a0db 2014-12-24 2014-12-24 lab order nullFlavo [place] 091 7b98r-3 [facility] 16:14:00 16:14:00 r Specialties bce-4940-8 l 43d-fc2e5f Mi nn d1cc13 2014-12-24 2014-12-24 lab order nullFlavo [place] b3d 8417f-5 [facility] 16:14:00 16:14:00 r Specialties 69c-4725-b l f68-2s2q70 Mi nn c18f4a 2014-12-24 2014-12-24 lab order nullFl[facility] [place] 0c2 1ouc5-0 [facility] 16:14:00 16:14:00 r Specialties 195-4467-8 l 004-a3d59d Mi nn mh439l 2014-12-24 2014-12-24 lab order nullFl[facility] [place] 7c5 95t50-4 [facility] 16:14:00 16:14:00 r Specialties 777-40c8-8 l n39-w93r40 Mi nn ba3e70 2014-12-24 2014-12-24 lab order nullFl[facility] [place] 824 m987z-5 [facility] 16:14:00 16:14:00 r Specialties fc7-4676-9 l 717-262e09 Mi nn 61990u 2014-12-24 2014-12-24 lab order nullFl[facility] [place] ae3 479fc-2 [facility] 16:14:00 16:14:00 r Specialties 8ac-4b3c-8 l 024-e85626 Mi nn 833330 8145-11-02 2014-12-24 lab order nullFl[facility] [place] c8f 2989f-c [facility] 16:14:00 16:14:00 r Specialties 70a-4d22-8 l 49c-e26f36 Mi nn [id number] 2014-12-24 2014-12-24 lab order nullFlavo [place] ceb 7n7f2-3 [facility] 16:14:00 16:14:00 r Specialties 975-4a55-b l 457-ag090o Mi nn e17bba 2014-12-24 2014-12-24 lab order nullFlavo [place] 946 19922-2 [facility] 16:14:00 16:14:00 r Specialties 969-4ea6-b l 404-6edada Mi nn b751c4 2014-12-24 2014-12-24 lab order [facility] [place] d15 830aa-1 [facility] 16:14:00 16:14:00 r Specialties adb-4f49-b l 208-ee58c0 Mi nn 26526d 2014-12-24 2014-12-24 lab [place] c7a 0y265-y [facility] 16:14:00 16:14:00 r Specialties d01-3055-5 l 953-39266c Mi nn d335b1 2014-12-24 2014-12-24 lab order [place] 16d 94938-3 [facility] 16:14:00 16:14:00 r Specialties 0i3-8010-b l y15-tlf31k Mi nn 5ea0cf 2014-12-24 2014-12-24 lab order [place]Fl[place] cf8 90239-0 [facility] 16:14:00 16:14:00 r Specialties h4d-4ls2-2 l u2c-7ek980 Mi nn 23383v 2014-12-24 2014-12-24 lab order [place] 8ab j24a1-j [facility] 16:14:00 16:14:00 r Specialties 7y6-6d43-u l 755-7a83ad Mi nn 67013b 2014-12-24 2014-12-24 lab order [place] 3ec vw23v-9 [facility] 16:14:00 16:14:00 r Specialties bca-42c6-9 l 1a2-1r7o80 Mi nn e01b66 2014-12-24 2014-12-24 lab order nullFl[facility] [place] a65 85vv4-6 [facility] 16:14:00 16:14:00 r Specialties fa2-4bae-9 l 905-bfcb31 Mi nn f906cd 2014-12-24 2014-12-24 lab order nullFl[facility] [place] fd2 37ecc-5 [facility] 16:14:00 16:14:00 r Specialties fa8-42f7-b l x2i-809405 Mi nn c11705 2014-12-24 2014-12-24 lab order [place] [place] 30b 7y7sj-s [facility] 16:14:00 16:14:00 r Specialties 62f-4a79-9 l 441-n69361 Mi nn d737a3 2014-12-24 2014-12-24 lab order null[facility] [place] b6a 5hl93-j [facility] 16:14:00 16:14:00 r Specialties h9p-131d-0 l 458-df3e9f Mi nn t0248j 2014-12-24 2014-12-24 lab order [facility] [place] fda 59t08-n [facility] 16:14:00 16:14:00 r Specialties fb7-4489-a l 845-34df20 Mi nn 681c67 2014-12-24 2014-12-24 lab order [place] [place] 2a0 42i83-7 [facility] 16:14:00 16:14:00 r Specialties 0fe-4d3b-b l 927-ad59ab Mi nn 1c08e0 2014-12-24 2014-12-24 lab order [facility] [place] 7c5 52b05-7 [facility] 16:14:00 16:14:00 r Specialties 777-40c8-8 l g65-j05m91 Mi nn ba3e70 2014-12-24 2014-12-24 lab order nullFl[facility] [place] 0c2 5sud0-6 [facility] 16:14:00 16:14:00 r Specialties 195-4467-8 l 004-a3d59d Mi nn rj440c 2014-12-24 2014-12-24 lab order [facility] [place] 112 ubj0h-2 [facility] 16:14:00 16:14:00 r Specialties 815-41a7-a l fd2-165a49 Mi nn 37147j 2014-12-24 2014-12-24 lab order nullFl[facility] [place] 824 j712n-3 [facility] 16:14:00 16:14:00 r Specialties fc7-4676-9 l 717-262e09 Mi nn 80406y 2014-12-24 2014-12-24 lab order nullFl[facility] [place] 091 1c14g-2 [facility] 16:14:00 16:14:00 r Specialties bce-4940-8 l 43d-fc2e5f Mi nn d1cc13 2014-12-24 2014-12-24 lab order null[facility] [place] 29a 006n9-1 [facility] 16:14:00 16:14:00 r Specialties g2i-97t6-h l d28-d8f476 Mi nn d5a0db 2014-12-24 2014-12-24 lab order null[facility] [place] b3d 8417f-5 [facility] 16:14:00 16:14:00 r Specialties 69c-4725-b l h99-6g5u49 Mi nn c18f4a 2014-12-24 2014-12-24 lab order nullFl[facility] [place] ae3 479fc-2 [facility] 16:14:00 16:14:00 r Specialties 8ac-4b3c-8 l 024-f67374 Mi nn 129546 4264-11-02 2014-12-24 lab order nullFl[facility] [place] 16d 72428-3 [facility] 16:14:00 16:14:00 r Specialties 1f6-9505-l l h65-xxw95c Mi nn 5ea0cf 2014-12-24 2014-12-24 lab order nullFl[facility] [place] 946 62052-2 [facility] 16:14:00 16:14:00 r Specialties 969-4ea6-b l 404-6edada Mi nn b751c4 2014-12-24 2014-12-24 lab order null[facility] [place] 8ab i42w1-t [facility] 16:14:00 16:14:00 r Specialties 7k1-1d55-e l 755-7a83ad Mi nn 03918l 2014-12-24 2014-12-24 lab order nullFl[facility] [place] d15 830aa-1 [facility] 16:14:00 16:14:00 r Specialties adb-4f49-b l 208-ee58c0 Mi nn 21706s 2014-12-24 2014-12-24 lab order null[facility] [place] ceb 6p3w8-0 [facility] 16:14:00 16:14:00 r Specialties 975-4a55-b l 457-ol187b Mi nn e17bba 2014-12-24 2014-12-24 lab order nullFl[facility] [place] c7a 3q868-d [facility] 16:14:00 16:14:00 r Specialties r77-9380-2 l 953-76153i Mi nn d335b1 2014-12-24 2014-12-24 lab order nullFl[facility] [place] fd2 37ecc-5 [facility] 16:14:00 16:14:00 r Specialties fa8-42f7-b l e9j-163987 Mi nn c50001 2014-12-24 2014-12-24 lab order nullFl[facility] [place] 3ec zb73n-4 [facility] 16:14:00 16:14:00 r Specialties bca-42c6-9 l 5z4-6n8z69 Mi nn e01b66 2014-12-24 2014-12-24 lab order nullFl[facility] [place] cf8 40580-8 [facility] 16:14:00 16:14:00 r Specialties y9k-9tq2-1 l r6b-3yp806 Mi nn 11971l 2014-12-24 2014-12-24 lab order nullFl[facility] [place] c8f 2989f-c [facility] 16:14:00 16:14:00 r Specialties 70a-4d22-8 l 49c-e26f36 Mi nn t7n323 2014-12-24 2014-12-24 lab order nullFl[facility] [place] a65 82hy7-4 [facility] 16:14:00 16:14:00 r Specialties fa2-4bae-9 l 905-bfcb31 Mi nn f906cd 2014-12-24 2014-12-24 lab order nullFl[facility] [place] b6a 3ba48-r [facility] 16:14:00 16:14:00 r Specialties j8t-385y-4 l 458-df3e9f Mi nn c7264r 2014-12-24 2014-12-24 lab order nullFl[facility] [place] 30b 7q3xx-s [facility] 16:14:00 16:14:00 r Specialties 62f-4a79-9 l 441-s26199 Mi nn d737a3 2014-12-24 2014-12-24 Abx nullFlavo [place] 1b74a beb-5 [facility] 16:13:00 16:13:00 Questions r Specialties r79-813j -a l be1-cf8b4b Mi nn 28ab5c 2014-12-24 2014-12-24 Abx nullFl[facility] [place] 2702c e10-1 [facility] 16:13:00 16:13:00 Questions r Specialties 023-4a2e -a l bed-fb56a3 Mi nn 47d41c 2014-12-24 2014-12-24 Abx nullFl[facility] [place] 5ae13 98c-8 [facility] 16:13:00 16:13:00 Questions r Specialties 939-4cea -a l p2g-iz9d2m Mi nn c68bd7 2014-12-24 2014-12-24 Abx nullFl[facility] [place] e944d a20-5 [facility] 16:13:00 16:13:00 Questions r Specialties m64-9re2 -9 l 2h6-3dj69d Mi nn 1fa550 2014-12-24 2014-12-24 Abx nullFl[facility] [place] ab9af 91e-8 [facility] 16:13:00 16:13:00 Questions r Specialties 8df-451c -b l 98b-4ffeed Mi nn bac61e 2014-12-24 2014-12-24 Abx nullFl[facility] [place] 49a29 0d9-d [facility] 16:13:00 16:13:00 Questions r Specialties y8p-86mx -8 l 5u5-97b8r8 Mi nn 449b08 2014-12-24 2014-12-24 Abx nullFl[facility] [place] b36dc ba6-1 [facility] 16:13:00 16:13:00 Questions r Specialties l00-80pr -8 l af0-f363f8 Mi nn 335ecd 2014-12-24 2014-12-24 Abx nullFl[facility] [place] 76f2b 093-f [facility] 16:13:00 16:13:00 Questions r Specialties ab5-400e -8 l 494-69174p Mi nn 74a8e1 2014-12-24 2014-12-24 Abx nullFl[facility] [place] a9390 070-6 [facility] 16:13:00 16:13:00 Questions r Specialties 97c-4294 -9 l q69-278f1f Mi nn 6s875r 2014-12-24 2014-12-24 Abx nullFl[facility] [place] b7e39 3d0-d [facility] 16:13:00 16:13:00 Questions r Specialties 336-4679 -9 l fda-57y682 Mi nn a8f21c 2014-12-24 2014-12-24 Abx nullFl[facility] [place] 40bdd 235-1 [facility] 16:13:00 16:13:00 Questions r Specialties 088-40f1 -a l be5-4l4370 Mi nn 5373eb 2014-12-24 2014-12-24 Abx nullFl[facility] [place] b66db 3c6-6 [facility] 16:13:00 16:13:00 Questions r Specialties 0j6-997g -a l 7k8-1zv8ug Im nn 1f70ad 2014-12-24 2014-12-24 Abx nullFl[facility] [place] 235ce e60-c [facility] 16:13:00 16:13:00 Questions r Specialties ff1-46ca -b l 5h1-7y99gu Mi nn 660c36 2014-12-24 2014-12-24 Abx nullFl[facility] [place] e7716 31e-3 [facility] 16:13:00 16:13:00 Questions r Specialties 8s7-2192 -a l k50-fof844 Mi nn 363b05 2014-12-24 2014-12-24 Abx nullFl[facility] [place] 6b71a 31e-4 [facility] 16:13:00 16:13:00 Questions r Specialties 289-4749 -9 l eb7-5bd12d Mi nn 634ed7 2014-12-24 2014-12-24 Abx nullFl[facility] [place] 24519 22f-a [facility] 16:13:00 16:13:00 Questions r Specialties h47-35z6 -b l 349-6eaae6 Mi nn 70ea95 2014-12-24 2014-12-24 Abx nullFl[facility] [place] 71ba9 3b5-7 [facility] 16:13:00 16:13:00 Questions r Specialties 85b-4a8e -8 l 5h3-35nn0z Mi nn b4fe3a 2014-12-24 2014-12-24 Abx nullFl[facility] [place] ef4ce 107-e [facility] 16:13:00 16:13:00 Questions r Specialties 441-44d6 -9 l 80b-ca9ae1 Mi nn 32af64 2014-12-24 2014-12-24 Abx nullFl[facility] [place] 3568f 204-6 [facility] 16:13:00 16:13:00 Questions r Specialties 082-419a -a l 4ea-v82990 Mi nn fa9a57 2014-12-24 2014-12-24 Abx nullFl[facility] [place] 9f3fe ef0-e [facility] 16:13:00 16:13:00 Questions r Specialties 0c6-904y -9 l u8b-56v7qy Mi nn 186004 3760-11-02 2014-12-24 Abx nullFl[facility] [place] d1970 7ef-3 [facility] 16:13:00 16:13:00 Questions r Specialties 7ef-4af2 -8 l q5q-mmaf39 Mi nn a4fd6e 2014-12-24 2014-12-24 Abx nullFl[facility] [place] 8c12d ceb-0 [facility] 16:13:00 16:13:00 Questions r Specialties fb7-4d3e -a l 383-50e2d5 Mi nn ddd66a 2014-12-24 2014-12-24 Abx nullFl[facility] [place] 70bc6 059-c [facility] 16:13:00 16:13:00 Questions r Specialties def-4da8 -a l 92a-b2cc67 Mi nn e0m387 2014-12-24 2014-12-24 Abx nullFl[facility] [place] 5ae13 98c-8 [facility] 16:13:00 16:13:00 Questions r Specialties 939-4cea -a l v0s-bt1r6m Mi nn c68bd7 2014-12-24 2014-12-24 Abx nullFlavo [place] 1b74a beb-5 [facility] 16:13:00 16:13:00 Questions r Specialties u49-331b -a l be1-cf8b4b Mi nn 28ab5c 2014-12-24 2014-12-24 Abx nullFl[facility] [place] 76f2b 093-f [facility] 16:13:00 16:13:00 Questions r Specialties ab5-400e -8 l 494-35024g Mi nn 74a8e1 2014-12-24 2014-12-24 Abx nullFl[facility] [place] b36dc ba6-1 [facility] 16:13:00 16:13:00 Questions r Specialties n51-90nw -8 l af0-f363f8 Mi nn 335ecd 2014-12-24 2014-12-24 Abx nullFlavo [place] 2702c e10-1 [facility] 16:13:00 16:13:00 Questions r Specialties 023-4a2e -a l bed-fb56a3 Mi nn 47d41c 2014-12-24 2014-12-24 Abx nullFl[facility] [place] a9390 070-6 [facility] 16:13:00 16:13:00 Questions r Specialties 97c-4294 -9 l q44-544h6v Mi nn 9c869z 2014-12-24 2014-12-24 Abx nullFl[facility] [place] ab9af 91e-8 [facility] 16:13:00 16:13:00 Questions r Specialties 8df-451c -b l 98b-4ffeed Mi nn bac61e 2014-12-24 2014-12-24 Abx nullFl[facility] [place] e944d a20-5 [facility] 16:13:00 16:13:00 Questions r Specialties p58-8kc5 -9 l 6l1-0bk18a Mi nn 6vt034 2014-12-24 2014-12-24 Abx nullFl[facility] [place] 49a29 0d9-d [facility] 16:13:00 16:13:00 Questions r Specialties t7z-24te -8 l 3x3-11y0p2 Mi nn 449b08 2014-12-24 2014-12-24 Abx nullFl[facility] [place] b7e39 3d0-d [facility] 16:13:00 16:13:00 Questions r Specialties 336-4679 -9 l fda-25a359 Mi nn a8f21c 2014-12-24 2014-12-24 Abx nullFl[facility] [place] 06635 22f-a [facility] 16:13:00 16:13:00 Questions r Specialties s02-25z9 -b l 349-6eaae6 Mi nn 70ea95 2014-12-24 2014-12-24 Abx nullFl[facility] [place] 235ce e60-c [facility] 16:13:00 16:13:00 Questions r Specialties ff1-46ca -b l 2l5-1e82ij Mi nn 660c36 2014-12-24 2014-12-24 Abx nullFl[facility] [place] ef4ce 107-e [facility] 16:13:00 16:13:00 Questions r Specialties 441-44d6 -9 l 80b-ca9ae1 Mi nn 32af64 2014-12-24 2014-12-24 Abx nullFl[facility] [place] e7716 31e-3 [facility] 16:13:00 16:13:00 Questions r Specialties 2t5-9944 -a l g55-ywh045 Mi nn 363b05 2014-12-24 2014-12-24 Abx nullFl[facility] [place] b66db 3c6-6 [facility] 16:13:00 16:13:00 Questions r Specialties 0x4-847x -a l 6l5-1xg0dn Mi nn 1f70ad 2014-12-24 2014-12-24 Abx nullFl[facility] [place] 6b71a 31e-4 [facility] 16:13:00 16:13:00 Questions r Specialties 289-4749 -9 l eb7-5bd12d Mi nn 634ed7 2014-12-24 2014-12-24 Abx nullFl[facility] [place] d1970 7ef-3 [facility] 16:13:00 16:13:00 Questions r Specialties 7ef-4af2 -8 l n1i-cczs22 Mi nn a4fd6e 2014-12-24 2014-12-24 Abx nullFl[facility] [place] 3568f 204-6 [facility] 16:13:00 16:13:00 Questions r Specialties 082-419a -a l 4ea-e13610 Mi nn fa9a57 2014-12-24 2014-12-24 Abx nullFl[facility] [place] 71ba9 3b5-7 [facility] 16:13:00 16:13:00 Questions r Specialties 85b-4a8e -8 l 2k5-71ii5h Mi nn b4fe3a 2014-12-24 2014-12-24 Abx nullFl[facility] [place] 40bdd 235-1 [facility] 16:13:00 16:13:00 Questions r Specialties 088-40f1 -a l be5-5v6797 Mi nn 5373eb 2014-12-24 2014-12-24 Abx nullFl[facility] [place] 9f3fe ef0-e [facility] 16:13:00 16:13:00 Questions r Specialties 4m7-462r -9 l s9m-93q7kp Mi nn 089007 6506-11-02 2014-12-24 Abx nullFl[facility] [place] 70bc6 059-c [facility] 16:13:00 16:13:00 Questions r Specialties def-4da8 -a l 92a-b2cc67 Mi nn l4c563 2014-12-24 2014-12-24 Abx nullFl[facility] [place] 8c12d ceb-0 [facility] 16:13:00 16:13:00 Questions r Specialties fb7-4d3e -a l 383-50e2d5 Mi nn ddd66a 2014-12-24 2014-12-24 lab order nullFl[facility] [place] 78b c7y35-f [facility] 15:14:00 15:14:00 r Specialties 115-4774-a l 914-9edf45 Mi nn 6mu569 2014-12-24 2014-12-24 lab order nullFl[facility] [place] b61 o0j9n-0 [facility] 15:14:00 15:14:00 r Specialties o8k-3xl9-7 l 15f-5681f0 Mi nn 7b2f7f 2014-12-24 2014-12-24 lab order nullFl[facility] [place] b38 69rx2-0 [facility] 15:14:00 15:14:00 r Specialties 329-42ef-a l 16c-e1cf43 Mi nn 16054k 2014-12-24 2014-12-24 lab order nullFl[facility] [place] fdd 051g2-5 [facility] 15:14:00 15:14:00 r Specialties 4g6-2t11-4 l fd6-6w4921 Mi nn 4d04be 2014-12-24 2014-12-24 lab order nullFl[facility] [place] f92 tp431-r [facility] 15:14:00 15:14:00 r Specialties 438-4331-a l a2l-4g0v7w Mi nn u5427p 2014-12-24 2014-12-24 lab order nullFl[facility] [place] 0a0 gc093-e [facility] 15:14:00 15:14:00 r Specialties 810-4976-b l 4k4-uzw719 Mi nn 8f24c7 2014-12-24 2014-12-24 lab order nullFl[facility] [place] 7e2 3x5q3-7 [facility] 15:14:00 15:14:00 r Specialties 712-4899-a l 9j0-43j905 Mi nn d4baea 2014-12-24 2014-12-24 lab order nullFlavo [place] 069 131o4-8 [facility] 15:14:00 15:14:00 r Specialties 031-400b-9 l b92-28j1d5 Mi nn jj9326 2014-12-24 2014-12-24 lab order nullFlavo [place] a31 33690-z [facility] 15:14:00 15:14:00 r Specialties 693-461f-9 l 63e-1921c0 Mi nn 5900b3 2014-12-24 2014-12-24 lab order nullFlavo [place] bcf 88zb5-k [facility] 15:14:00 15:14:00 r Specialties 455-4e37-a l bfd-732d52 Mi nn b84e24 2014-12-24 2014-12-24 lab order nullFlavo [place] 690 r6241-5 [facility] 15:14:00 15:14:00 r Specialties 1s1-731g-7 l 0ce-92ddab Mi nn 406b93 2014-12-24 2014-12-24 lab order nullFl[facility] [place] 764 czt1t-9 [facility] 15:14:00 15:14:00 r Specialties 1l7-7e37-y l 391-c5c8e3 Mi nn fb1a95 2014-12-24 2014-12-24 lab order nullFlavo [place] 7c7 57w45-e [facility] 15:14:00 15:14:00 r Specialties 404-437d-8 l 9a5-42om78 Mi nn 99709m 2014-12-24 2014-12-24 lab order nullFlavo [place] a26 36517-z [facility] 15:14:00 15:14:00 r Specialties 38c-4e25-a l h6j-w53uk6 Mi nn 1ceef7 2014-12-24 2014-12-24 lab order nullFlavo [place] d30 p1oh0-7 [facility] 15:14:00 15:14:00 r Specialties 5fc-45b7-b l c4j-32ob5g Mi nn 818985 1120-11-02 2014-12-24 lab order nullFlavo [place] 1e9 19f73-1 [facility] 15:14:00 15:14:00 r Specialties 68d-453a-8 l a61-t7e829 Mi nn 0817c4 2014-12-24 2014-12-24 lab order nullFlavo [place] be8 007ef-6 [facility] 15:14:00 15:14:00 r Specialties 131-4f7f-9 l 779-20cd85 Mi nn 6fbdb5 2014-12-24 2014-12-24 lab order nullFl[facility] [place] 196 s9ju5-c [facility] 15:14:00 15:14:00 r Specialties c00-7453-5 l 613-r6n239 Mi nn ef46af 2014-12-24 2014-12-24 lab order nullFl[facility] [place] 7dc 21e31-6 [facility] 15:14:00 15:14:00 r Specialties 61f-4b5c-9 l 322-9cb9f5 Mi nn 48417b 2014-12-24 2014-12-24 lab order nullFlavo [place] dda 02ar3-7 [facility] 15:14:00 15:14:00 r Specialties 1de-44ab-9 l fde-2l2150 Mi nn m6r800 2014-12-24 2014-12-24 lab order nullFlavo [place] b61 v3z3i-0 [facility] 15:14:00 15:14:00 r Specialties v1a-1in3-0 l 15f-5681f0 Mi nn 7b2f7f 2014-12-24 2014-12-24 lab order nullFl[facility] [place] fdd 135r5-2 [facility] 15:14:00 15:14:00 r Specialties 1n5-3e85-8 l fd6-3t4637 Mi nn 4d04be 2014-12-24 2014-12-24 lab order nullFlavo [place] b38 49fi7-8 [facility] 15:14:00 15:14:00 r Specialties 329-42ef-a l 16c-e1cf43 Mi nn 05310q 2014-12-24 2014-12-24 lab order nullFlavo [place] 78b h8q81-u [facility] 15:14:00 15:14:00 r Specialties 115-4774-a l 914-9edf45 Mi nn 8ze145 2014-12-24 2014-12-24 lab order nullFl[facility] [place] 7e2 7k9o4-7 [facility] 15:14:00 15:14:00 r Specialties 712-4899-a l 8v1-10z709 Mi nn d4baea 2014-12-24 2014-12-24 lab order nullFlavo [place] 690 o3407-7 [facility] 15:14:00 15:14:00 r Specialties 6x0-774q-4 l 0ce-92ddab Mi nn 406b93 2014-12-24 2014-12-24 lab order nullFl[facility] [place] bcf 73bm7-p [facility] 15:14:00 15:14:00 r Specialties 455-4e37-a l bfd-732d52 Mi nn b84e24 2014-12-24 2014-12-24 lab order nullFlavo [place] f92 ve615-x [facility] 15:14:00 15:14:00 r Specialties 438-4331-a l s2v-8x4t0a Mi nn j2389t 2014-12-24 2014-12-24 lab order nullFlavo [place] 0a0 az474-n [facility] 15:14:00 15:14:00 r Specialties 810-4976-b l 4a5-sjs688 Mi nn 8f24c7 2014-12-24 2014-12-24 lab order nullFlavo [place] 764 ixw2k-8 [facility] 15:14:00 15:14:00 r Specialties 8s1-9q97-i l 391-c5c8e3 Mi nn fb1a95 2014-12-24 2014-12-24 lab order nullFlavo [place] a31 93810-y [facility] 15:14:00 15:14:00 r Specialties 693-461f-9 l 63e-1921c0 Mi nn 5900b3 2014-12-24 2014-12-24 lab order nullFlavo [place] 1e9 84n47-5 [facility] 15:14:00 15:14:00 r Specialties 68d-453a-8 l a01-r3c206 Mi nn 0817c4 2014-12-24 2014-12-24 lab order nullFlavo [place] be8 007ef-6 [facility] 15:14:00 15:14:00 r Specialties 131-4f7f-9 l 779-20cd85 Mi nn 6fbdb5 2014-12-24 2014-12-24 lab order nullFl[facility] [place] 196 t7fh9-e [facility] 15:14:00 15:14:00 r Specialties u01-3170-2 l 613-c0j024 Mi nn ef46af 2014-12-24 2014-12-24 lab order nullFlavo [place] 7c7 69e99-k [facility] 15:14:00 15:14:00 r Specialties 404-437d-8 l 9b2-70gp83 Mi nn 37613a 2014-12-24 2014-12-24 lab order nullFlavo [place] 069 778g5-9 [facility] 15:14:00 15:14:00 r Specialties 031-400b-9 l i83-87a1t0 Mi nn dm9292 2014-12-24 2014-12-24 lab order nullFlavo [place] 7dc 57g13-3 [facility] 15:14:00 15:14:00 r Specialties 61f-4b5c-9 l 322-9cb9f5 Mi nn 28005o 2014-12-24 2014-12-24 lab order nullFlavo [place] a26 48903-n [facility] 15:14:00 15:14:00 r Specialties 38c-4e25-a l q2t-a70fz2 Mi nn 1ceef7 2014-12-24 2014-12-24 lab order [facility]Flavo [place] d30 j9zh3-7 [facility] 15:14:00 15:14:00 r Specialties 5fc-45b7-b l y2i-35qn2m Mi nn 770994 7214-11-02 2014-12-24 lab order [facility]Flavo [place] dda 01sb9-9 [facility] 15:14:00 15:14:00 r Specialties 1de-44ab-9 l fde-9f3102 Mi nn f9k351 2014-12-24 2014-12-24 Abx nullFlavo [place] 43f3a 527-9 [facility] 15:13:00 15:13:00 Questions r Specialties 2w9-3l90 -b l 247-97s816 Mi nn de60b5 2014-12-24 2014-12-24 Abx nullFlavo [place] 941c3 b90-8 [facility] 15:13:00 15:13:00 Questions r Specialties p05-8hd8 -8 l cb2-6124e5 Mi nn b75a60 2014-12-24 2014-12-24 Abx nullFlavo [place] e3054 b25-9 [facility] 15:13:00 15:13:00 Questions r Specialties m59-1gh7 -a l 06a-cf30f7 Mi nn q40990 2014-12-24 2014-12-24 Abx nullFlavo [place] f360c e23-c [facility] 15:13:00 15:13:00 Questions r Specialties 726-466e -8 l 0z1-yl806l Mi nn 477a88 2014-12-24 2014-12-24 Abx nullFlavo [place] cc987 594-8 [facility] 15:13:00 15:13:00 Questions r Specialties dd4-4f9e -a l 64b-de7e6c Mi nn c21260 2014-12-24 2014-12-24 Abx nullFlavo [place] fe38c 92c-b [facility] 15:13:00 15:13:00 Questions r Specialties p1s-51v0 -b l bf3-462027 [facility] nn a81d3b 2014-12-24 2014-12-24 Abx nullFlavo [place] 78573 274-6 [facility] 15:13:00 15:13:00 Questions r Specialties o9u-9229 -8 l 7y2-741l1m [facility] nn b6005r 2014-12-24 2014-12-24 Abx nullFlavo [place] 1cef2 fe9-0 [facility] 15:13:00 15:13:00 Questions r Specialties 7b3-5h48 -9 l 0i0-5baj01 Mi nn 9b6a2b 2014-12-24 2014-12-24 Abx nullFlavo [place] 09399 498-9 [facility] 15:13:00 15:13:00 Questions r Specialties 32d-473a -b l 433-ke225g Mi nn 0d4a5f 2014-12-24 2014-12-24 Abx nullFlavo [place] 165dc 04e-a [facility] 15:13:00 15:13:00 Questions r Specialties 8r7-91zx -8 l 837-c6afc2 Mi nn b27d2e 2014-12-24 2014-12-24 Abx nullFlavo [place] 3e5e4 d76-5 [facility] 15:13:00 15:13:00 Questions r Specialties 630-464e -a l 7b8-p253z8 Mi nn 28j974 2014-12-24 2014-12-24 Abx [facility]Flavo [place] ad65a 5a4-9 [facility] 15:13:00 15:13:00 Questions r Specialties 4cf-4d33 -b l 60b-0c0f08 Mi nn 082222 5760-11-02 2014-12-24 Abx nullFlavo [place] 7cb72 1bd-f [facility] 15:13:00 15:13:00 Questions r Specialties a52-3otc -9 l 30c-dcad02 Mi nn [id number] 2014-12-24 2014-12-24 Abx nullFlavo [place] 43557 72c-5 [facility] 15:13:00 15:13:00 Questions r Specialties 8ac-4ee3 -8 l y80-627152 Mi nn [id number] 2014-12-24 2014-12-24 Abx nullFlavo [place] 4c3a5 806-8 [facility] 15:13:00 15:13:00 Questions r Specialties j10-8j4h -a l 2w8-40vq69 Mi nn c1ea1e 2014-12-24 2014-12-24 Abx nullFlavo [place] f765a 355-f [facility] 15:13:00 15:13:00 Questions r Specialties 05b-42cd -9 l v4l-9641l5 Mi nn 9c96a3 2014-12-24 2014-12-24 Abx nullFlavo [place] 80a76 73a-8 [facility] 15:13:00 15:13:00 Questions r Specialties 0u7-1k4y -a l r49-36wygt Mi nn 529d02 2014-12-24 2014-12-24 Abx nullFlavo [place] fa95b 212-0 [facility] 15:13:00 15:13:00 Questions r Specialties e1x-5xi7 -8 l 182-vh927d Mi nn d6a4b5 2014-12-24 2014-12-24 Abx nullFlavo [place] fca90 9ce-a [facility] 15:13:00 15:13:00 Questions r Specialties t01-34jf -b l ebb-913d95 Mi nn 4137d2 2014-12-24 2014-12-24 Abx nullFlavo [place] 1e3b9 399-b [facility] 15:13:00 15:13:00 Questions r Specialties w69-1j7r -b l 4f4-e0odr5 Mi nn [id number] 2014-12-24 2014-12-24 Abx nullFlavo [place] 941c3 b90-8 [facility] 15:13:00 15:13:00 Questions r Specialties r36-9gj7 -8 l cb2-6124e5 Mi nn b75a60 2014-12-24 2014-12-24 Abx nullFlavo [place] f360c e23-c [facility] 15:13:00 15:13:00 Questions r Specialties 726-466e -8 l 1q1-xc470p Mi nn 477a88 2014-12-24 2014-12-24 Abx nullFlavo [place] e3054 b25-9 [facility] 15:13:00 15:13:00 Questions r Specialties x86-3ct0 -a l 06a-cf30f7 Mi nn [id number] 2014-12-24 2014-12-24 Abx nullFlavo [place] 43f3a 527-9 [facility] 15:13:00 15:13:00 Questions r Specialties 7p3-3j04 -b l 247-28l531 Mi nn de60b5 2014-12-24 2014-12-24 Abx nullFl[place] 607[address] 274-6 [facility] 15:13:00 15:13:00 Questions r Specialties d0b-3697 -8 l 1m0-248j0y [facility] nn v4455x 2014-12-24 2014-12-24 Abx nullFlavo [place] 3e5e4 d76-5 [facility] 15:13:00 15:13:00 Questions r Specialties 630-464e -a l 7o7-y121o5 Mi nn [id number] 2014-12-24 2014-12-24 Abx nullFlavo [place] 165dc 04e-a [facility] 15:13:00 15:13:00 Questions r Specialties 2m2-55hh -8 l 837-c6afc2 Mi nn b27d2e 2014-12-24 2014-12-24 Abx nullFlavo [place] cc987 594-8 [facility] 15:13:00 15:13:00 Questions r Specialties dd4-4f9e -a l 64b-de7e6c Mi nn i00770 2014-12-24 2014-12-24 Abx nullFlavo [place] fe38c 92c-b [facility] 15:13:00 15:13:00 Questions r Specialties l9o-71n5 -b l bf3-278665 Mi nn a81d3b 2014-12-24 2014-12-24 Abx nullFlavo [place] ad65a 5a4-9 [facility] 15:13:00 15:13:00 Questions r Specialties 4cf-4d33 -b l 60b-0c0f08 Mi nn [id number] 5278-11-02 2014-12-24 Abx nullFlavo [place] 03256 498-9 [facility] 15:13:00 15:13:00 Questions r Specialties 32d-473a -b l 433-zk690k Mi nn 0d4a5f 2014-12-24 2014-12-24 Abx nullFlavo [place] f765a 355-f [facility] 15:13:00 15:13:00 Questions r Specialties 05b-42cd -9 l k6r-8910b9 Mi nn 9c96a3 2014-12-24 2014-12-24 Abx nullFlavo [place] 80a76 73a-8 [facility] 15:13:00 15:13:00 Questions r Specialties 4a1-9l8m -a l b34-78hljv Mi nn 529d02 2014-12-24 2014-12-24 Abx nullFlavo [place] fa95b 212-0 [facility] 15:13:00 15:13:00 Questions r Specialties s2v-5aw6 -8 l 182-km434c Mi nn d6a4b5 2014-12-24 2014-12-24 Abx nullFlavo [place] 7cb72 1bd-f [facility] 15:13:00 15:13:00 Questions r Specialties m22-4vty -9 l 30c-dcad02 Mi nn sw9584 2014-12-24 2014-12-24 Abx nullFlavo [place] 1cef2 fe9-0 [facility] 15:13:00 15:13:00 Questions r Specialties 7k7-2b24 -9 l 6t1-5mky99 Mi nn 9b6a2b 2014-12-24 2014-12-24 Abx nullFlavo [place] fca90 9ce-a [facility] 15:13:00 15:13:00 Questions r Specialties m30-12rd -b l ebb-913d95 Mi nn 4137d2 2014-12-24 2014-12-24 Abx nullFlavo [place] 20878 72c-5 [facility] 15:13:00 15:13:00 Questions r Specialties 8ac-4ee3 -8 l p58-954231 Mi nn db0516 2014-12-24 2014-12-24 Abx nullFlavo [place] 4c3a5 806-8 [facility] 15:13:00 15:13:00 Questions r Specialties p89-4l8v -a l 3w8-90th98 Mi nn c1ea1e 2014-12-24 2014-12-24 Abx nullFlavo [place] 1e3b9 399-b [facility] 15:13:00 15:13:00 Questions r Specialties u76-5c1q -b l 9t7-o2vdg6 Mi nn [id number] 2014-12-24 2014-12-24 [facility] [place] 3948 04 [facility] 10:14:00 10:14:00 [facility] 2014-12-24 2014-12-24 [facility] [place] 3948 05 [facility] 10:13:00 10:13:00 [facility] 2014-12-12 2014-12-12 Medication nullFlavo [place] e6 1q4q75-l [facility] 15:37:00 15:37:00 Refill r Specialties cdf-4f2e-a l Request [id number] Mi nn ut4018 2014-12-12 2014-12-12 Medication nullFlavo [place] f2 4kc66h-4 [facility] 15:37:00 15:37:00 Refill r Specialties x5v-08p4-0 l Request [id number] Mi aleja fdba3a 2014-12-12 2014-12-12 Medication nullFlavo [place] 5b x891le-8 [facility] 15:37:00 15:37:00 Refill r Specialties b0o-82k1-r l Request [id number]-d390b2 Mi aleja [id number] 1949-10-21 2014-12-12 Medication nullFlavo [place] 1f 192m50-b [facility] 15:37:00 15:37:00 Refill r Specialties 9n7-3131-w l Request [id number] Mi aleja 63f87d 2014-12-12 2014-12-12 Medication nullFlavo [place] eb 35e93m-u [facility] 15:37:00 15:37:00 Refill r Specialties 28d-46ba-b l Request [id number] [facility] [id number] 2730-10-21 2014-12-12 Medication nullFlavo [place] 33 945f71-9 Memoria 15:37:00 15:37:00 Refill r Specialties 692-4715-b l Request [id number] Mi aleja 54e5c3 2014-12-12 2014-12-12 Medication nullFlavo [place] 80 853m32-t Memoria 15:37:00 15:37:00 Refill r Specialties 749-48c7-8 l Request g30-zto30y Im aleja fb17bf 2014-12-12 2014-12-12 Medication nullFlavo [place] e0 v71200-x Memoria 15:37:00 15:37:00 Refill r Specialties 772-4318-a l Request [id number] Mi aleja 3d8dee 2014-12-12 2014-12-12 Medication nullFlavo [place] 3c 6c48qx-3 Memoria 15:37:00 15:37:00 Refill r Specialties 998-4a9c-8 l Request [id number] [facility] aleja bf14bb 2014-12-12 2014-12-12 Medication nullFlavo [place] db 0y299i-7 Memoria 15:37:00 15:37:00 Refill r Specialties e92-128t-y l Request [id number] [facility] 5d1a39 2014-12-12 2014-12-12 Medication nullFlavo [place] 37 0859bf-7 Memoria 15:37:00 15:37:00 Refill r Specialties p09-335k-7 l Request 9bb-a1c4f2 [facility] nn 1851fa 2014-12-12 2014-12-12 Medication nullFlavo [place] ab 380me4-8 Memoria 15:37:00 15:37:00 Refill r Specialties 23a-4ef7-b l Request m2n-l9k2hb [facility] aleja 756bdd 2014-12-12 2014-12-12 Medication nullFlavo [place] 8c 6d9am0-0 Memoria 15:37:00 15:37:00 Refill r Specialties 388-4752-a l Request [id number] [facility] 655738 0116-10-21 2014-12-12 Medication nullFlavo [place] 92 8zo0z7-7 Memoria 15:37:00 15:37:00 Refill r Specialties d64-2su2-g l Request 5ca-5adc3b [facility] [id number] 2014-12-12 2014-12-12 Medication nullFlavo [place] 63 s5u92j-m Memoria 15:37:00 15:37:00 Refill r Specialties 30f-46a3-8 l Request [id number] [facility] aleja g4h097 2014-12-12 2014-12-12 Medication nullFlavo [place] 8f 8097af-a Memoria 15:37:00 15:37:00 Refill r Specialties 183-4ba0-a l Request [id number] [facility] 7783db 2014-12-12 2014-12-12 Medication nullFlavo [place] e1 304475-0 Memoria 15:37:00 15:37:00 Refill r Specialties s14-1vn5-v l Request [id number]-u692i6 [facility] 8181ad 2014-12-12 2014-12-12 Medication nullFlavo [place] 3a 2e6x49-4 Memoria 15:37:00 15:37:00 Refill r Specialties 101-4e96-a l Request 53f-a9a89d [facility] 25e66f 2014-12-12 2014-12-12 Medication nullFlavo [place] 2f 56750n-6 Memoria 15:37:00 15:37:00 Refill r Specialties 0m5-0yvk-4 l Request 25f-23f01e [facility] ae3f5a 2014-12-12 2014-12-12 Medication nullFlavo [place] 0e 01z610-o Memoria 15:37:00 15:37:00 Refill r Specialties 5ac-4248-9 l Request [id number] [facility] 35c81a 2014-12-12 2014-12-12 Medication nullFlavo [place] fe cn9ak6-4 Memoria 15:37:00 15:37:00 Refill r Specialties 27e-4aef-b l Request [id number]-[id number] [facility] f8dbdb 2014-12-12 2014-12-12 Medication nullFlavo [place] f4 mg79c3-v Memoria 15:37:00 15:37:00 Refill r Specialties l3z-5gz2-6 l Request [id number]-k8n460 [facility] 01fa36 2014-12-12 2014-12-12 Medication nullFlavo [place] 25 1v827w-1 Memoria 15:37:00 15:37:00 Refill r Specialties ee0-4375-a l Request [id number] [facility] 75a5e7 2014-12-12 2014-12-12 Medication nullFlavo [place] 5b t738xh-9 Memoria 15:37:00 15:37:00 Refill r Specialties v9b-63a9-q l Request [id number]-d390b2 [facility] [id number] 4921-10-21 2014-12-12 Medication nullFlavo [place] e6 7e8b77-n Memoria 15:37:00 15:37:00 Refill r Specialties cdf-4f2e-a l Request [id number] [facility] at3035 2014-12-12 2014-12-12 Medication nullFlavo [place] e0 m23290-u Memoria 15:37:00 15:37:00 Refill r Specialties 772-4318-a l Request [id number] [facility] 3d8dee 2014-12-12 2014-12-12 Medication nullFlavo [place] 80 483t90-y Memoria 15:37:00 15:37:00 Refill r Specialties 749-48c7-8 l Request [id number]-llk00l [facility] fb17bf 2014-12-12 2014-12-12 Medication nullFlavo [place] f2 9tc39r-7 Memoria 15:37:00 15:37:00 Refill r Specialties q6r-24q9-3 l Request [id number] [facility] fdba3a 2014-12-12 2014-12-12 Medication nullFlavo [place] 3c 4r15qz-9 Memoria 15:37:00 15:37:00 Refill r Specialties 998-4a9c-8 l Request [id number] [facility] bf14bb 2014-12-12 2014-12-12 Medication nullFlavo [place] eb 62m14r-z Memoria 15:37:00 15:37:00 Refill r Specialties 28d-46ba-b l Request [id number]-67c24d [facility] 764098 2335-10-21 2014-12-12 Medication nullFlavo [place] 1f 129w68-p Memoria 15:37:00 15:37:00 Refill r Specialties 9v4-4975-z l Request [id number] [facility] 63f87d 2014-12-12 2014-12-12 Medication nullFlavo [place] 33 450q39-7 Memoria 15:37:00 15:37:00 Refill r Specialties 692-4715-b l Request [id number] [facility] 54e5c3 2014-12-12 2014-12-12 Medication nullFlavo [place] db 1e130v-1 Mem[facility] 15:37:00 15:37:00 Refill r Specialties o41-916b-y l Request [id number] [facility] 5d1a39 2014-12-12 2014-12-12 Medication nullFlavo [place] 8f 8097af-a Memoria 15:37:00 15:37:00 Refill r Specialties 183-4ba0-a l Request [id number]-n78j3c [facility] 7783db 2014-12-12 2014-12-12 Medication nullFlavo [place] 8c 8g9pb6-0 Memoria 15:37:00 15:37:00 Refill r Specialties 388-4752-a l Request [id number] Mi [facility] [id number] 6179-10-21 2014-12-12 Medication nullFlavo [place] 3a 0u9d23-8 Mem[facility] 15:37:00 15:37:00 Refill r Specialties 101-4e96-a l Request [id number]-a9a89d Mi [facility] 25e66f 2014-12-12 2014-12-12 Medication nullFlavo [place] 92 5ng3i6-6 Memoria 15:37:00 15:37:00 Refill r Specialties o80-8nz1-j l Request [id number]-5adc3b Mi [facility] 73763e 2014-12-12 2014-12-12 Medication nullFlavo [place] ab 814kd4-7 Memoria 15:37:00 15:37:00 Refill r Specialties 23a-4ef7-b l Request [id number]-i7v6nb Mi [facility] 756bdd 2014-12-12 2014-12-12 Medication nullFlavo [place] 63 v3c17z-r Memoria 15:37:00 15:37:00 Refill r Specialties 30f-46a3-8 l Request [id number] Mi aleja t1o353 2014-12-12 2014-12-12 Medication nullFlavo [place] fe mh2wl1-8 Memoria 15:37:00 15:37:00 Refill r Specialties 27e-4aef-b l Request [id number]-065f52 Mi [facility] f8dbdb 2014-12-12 2014-12-12 Medication nullFlavo [place] 2f 94679o-5 Memoria 15:37:00 15:37:00 Refill r Specialties 8y9-4ruo-4 l Request 25f-23f01e [facility] aleja ae3f5a 2014-12-12 2014-12-12 Medication nullFlavo [place] e1 636850-0 Memoria 15:37:00 15:37:00 Refill r Specialties j54-6tb4-q l Request [id number] Mi aleja 8181ad 2014-12-12 2014-12-12 Medication nullFlavo [place] 37 0859bf-7 Memoria 15:37:00 15:37:00 Refill r Specialties x12-251h-7 l Request 9bb-a1c4f2 Mi aleja 1851fa 2014-12-12 2014-12-12 Medication nullFlavo [place] 0e 55s098-w Memoria 15:37:00 15:37:00 Refill r Specialties 5ac-4248-9 l Request [id number] Mi aleja 35c81a 2014-12-12 2014-12-12 Medication nullFlavo [place] 25 8l412t-6 Memoria 15:37:00 15:37:00 Refill r Specialties ee0-4375-a l Request [id number] [facility] aleja 75a5e7 2014-12-12 2014-12-12 Medication nullFlavo [place] f4 re90w3-q Mem[facility] 15:37:00 15:37:00 Refill r Specialties z4y-5wo2-8 l Request [id number]-[id number] Mi [facility] 01fa36 2014-12-12 2014-12-12 Medication nullFlavo [place] 47 39x4w6-d Memoria 14:37:00 14:37:00 Refill r Specialties 659-47a9-a l Request [id number] [facility] aleja de2fc7 2014-12-12 2014-12-12 Medication nullFlavo [place] c8 w2011w-8 Memoria 14:37:00 14:37:00 Refill r Specialties x62-64i0-f l Request [id number] [facility] aleja f0ac98 2014-12-12 2014-12-12 Medication nullFlavo [place] 1c 329075-j Memoria 14:37:00 14:37:00 Refill r Specialties 2fc-4177-8 l Request [id number]-ncw670 [facility] aleja [id number] 2014-12-12 2014-12-12 Medication nullFlavo [place] 17 0lt2by-v Memoria 14:37:00 14:37:00 Refill r Specialties 083-4183-9 l Request [id number] [facility] aleja [id number] 9328-10-21 2014-12-12 Medication nullFlavo [place] 88 49n080-4 Memoria 14:37:00 14:37:00 Refill r Specialties 041-4925-9 l Request [id number]-45z3fx [facility] [id number] 2014-12-12 2014-12-12 Medication nullFlavo [place] 56 28cef5-9 Memoria 14:37:00 14:37:00 Refill r Specialties i15-5633-7 l Request [id number] [facility] 10bc18 2014-12-12 2014-12-12 Medication nullFlavo [place] 66 195729-d Memoria 14:37:00 14:37:00 Refill r Specialties dbf-421f-b l Request [id number] [facility] 74ad99 2014-12-12 2014-12-12 Medication nullFlavo [place] 58 264979-i Memoria 14:37:00 14:37:00 Refill r Specialties 735-4973-8 l Request [id number] [facility] vlv892 2014-12-12 2014-12-12 Medication nullFlavo [place] 61 9c8d67-4 Memoria 14:37:00 14:37:00 Refill r Specialties 550-4c3e-9 l Request [id number]-gii351 [facility] b9a51f 2014-12-12 2014-12-12 Medication nullFlavo [place] e0 75i32a-m Mem[facility] 14:37:00 14:37:00 Refill r Specialties bcc-45ee-8 l Request [id number]-e32a26 [facility] cd2c1a 2014-12-12 2014-12-12 Medication nullFlavo [place] 18 e05378-8 Memoria 14:37:00 14:37:00 Refill r Specialties 27e-4c8d-9 l Request [id number]-x3rog8 [facility] 2af8ee 2014-12-12 2014-12-12 Medication nullFlavo [place] bf 3j4397-9 Memoria 14:37:00 14:37:00 Refill r Specialties 050-42be-a l Request [id number]-[id number] [facility] adb2bc 2014-12-12 2014-12-12 Medication nullFlavo [place] 53 wsyo49-u Memoria 14:37:00 14:37:00 Refill r Specialties 03d-4b5e-8 l Request ef8-63c6d6 [facility] 75a068 2014-12-12 2014-12-12 Medication nullFlavo [place] b3 8fg215-9 Memoria 14:37:00 14:37:00 Refill r Specialties 55f-4ee3-b l Request [id number]-[id number] Mi [facility] 86d8b3 2014-12-12 2014-12-12 Medication nullFlavo [place] 01 1j25aw-8 Memoria 14:37:00 14:37:00 Refill r Specialties g38-6rv2-5 l Request [id number] Mi aleja 862a01 2014-12-12 2014-12-12 Medication nullFlavo [place] 91 8a2i8l-f Memoria 14:37:00 14:37:00 Refill r Specialties af0-4677-8 l Request [id number] Mi aleja b1f5ac 2014-12-12 2014-12-12 Medication nullFlavo [place] 51 xbo63w-8 Memoria 14:37:00 14:37:00 Refill r Specialties 999-448e-8 l Request 45e-1ed0d4 [facility] aleja bd2ba5 2014-12-12 2014-12-12 Medication nullFlavo [place] 0a f5739x-u Memoria 14:37:00 14:37:00 Refill r Specialties 7ca-46e2-a l Request [id number]-[id number] Mi aleja feba16 2014-12-12 2014-12-12 Medication nullFlavo [place] 91 k97d73-5 Memoria 14:37:00 14:37:00 Refill r Specialties 00b-4b8f-a l Request [id number] [facility] b7ab78 2014-12-12 2014-12-12 Medication nullFlavo [place] be 123982-4 Memoria 14:37:00 14:37:00 Refill r Specialties a16-8833-8 l Request [id number] [facility] 9b9c1f 2014-12-12 2014-12-12 Medication nullFlavo [place] c8 b4261s-7 Memoria 14:37:00 14:37:00 Refill r Specialties o61-19d3-o l Request [id number] [facility] aleja f0ac98 2014-12-12 2014-12-12 Medication nullFlavo [place] 17 4wk0zc-g Memoria 14:37:00 14:37:00 Refill r Specialties 083-4183-9 l Request [id number] Mi aleja [id number] 7009-10-21 2014-12-12 Medication nullFlavo [place] 1c 633757-l Mem[facility] 14:37:00 14:37:00 Refill r Specialties 2fc-4177-8 l Request [id number]-dva003 Mi [facility] ru1551 2014-12-12 2014-12-12 Medication nullFlavo [place] 47 42l5c2-v Memoria 14:37:00 14:37:00 Refill r Specialties 659-47a9-a l Request [id number] Mi aleja de2fc7 2014-12-12 2014-12-12 Medication nullFlavo [place] 66 007673-n Memoria 14:37:00 14:37:00 Refill r Specialties dbf-421f-b l Request [id number] Mi nn 74ad99 2014-12-12 2014-12-12 Medication nullFlavo [place] 18 b74049-2 Memoria 14:37:00 14:37:00 Refill r Specialties 27e-4c8d-9 l Request [id number]-k6msd9 Mi aleja 2af8ee 2014-12-12 2014-12-12 Medication nullFlavo [place] e0 91v10w-g Mem[facility] 14:37:00 14:37:00 Refill r Specialties bcc-45ee-8 l Request [id number]-e32a26 Mi aleja cd2c1a 2014-12-12 2014-12-12 Medication nullFlavo [place] 88 36w341-6 Memoria 14:37:00 14:37:00 Refill r Specialties 041-4925-9 l Request r8n-51d8wu [facility] [id number] 2014-12-12 2014-12-12 Medication nullFlavo [place] 56 02fxt5-6 Memoria 14:37:00 14:37:00 Refill r Specialties v47-1909-4 l Request [id number] Mi aleja 10bc18 2014-12-12 2014-12-12 Medication nullFlavo [place] bf 0x2016-2 Mem[facility] 14:37:00 14:37:00 Refill r Specialties 050-42be-a l Request [id number]-ke7588 [facility] adb2bc 2014-12-12 2014-12-12 Medication nullFlavo [place] 61 6r9h20-9 Memoria 14:37:00 14:37:00 Refill r Specialties 550-4c3e-9 l Request [id number]-pgq540 [facility] b9a51f 2014-12-12 2014-12-12 Medication nullFlavo [place] 91 0a2h0r-g Mem[facility] 14:37:00 14:37:00 Refill r Specialties af0-4677-8 l Request 7z7-64v48w [facility] b1f5ac 2014-12-12 2014-12-12 Medication nullFlavo [place] 51 kxm84d-9 Mem[facility] 14:37:00 14:37:00 Refill r Specialties 999-448e-8 l Request 45e-1ed0d4 [facility] bd2ba5 2014-12-12 2014-12-12 Medication nullFlavo [place] 0a g0316g-v Mem[facility] 14:37:00 14:37:00 Refill r Specialties 7ca-46e2-a l Request [id number]-n4369m [facility] feba16 2014-12-12 2014-12-12 Medication nullFlavo [place] 53 ciqj99-m Mem[facility] 14:37:00 14:37:00 Refill r Specialties 03d-4b5e-8 l Request ef8-63c6d6 [facility] 94u426 2014-12-12 2014-12-12 Medication nullFlavo [place] 58 174717-i Memoria 14:37:00 14:37:00 Refill r Specialties 735-4973-8 l Request [id number] [facility] okc640 2014-12-12 2014-12-12 Medication nullFlavo [place] 91 d89i00-3 Memoria 14:37:00 14:37:00 Refill r Specialties 00b-4b8f-a l Request [id number] [facility] b7ab78 2014-12-12 2014-12-12 Medication nullFlavo [place] b3 5cs141-1 Mem[facility] 14:37:00 14:37:00 Refill r Specialties 55f-4ee3-b l Request [id number]-r1y981 [facility] 86d8b3 2014-12-12 2014-12-12 Medication nullFlavo [place] 01 6y97mp-5 Memoria 14:37:00 14:37:00 Refill r Specialties s63-9ip3-4 l Request [id number] Mi nn 862a01 2014-12-12 2014-12-12 Medication nullFlavo [place] be [id number] Memoria 14:37:00 14:37:00 Refill r Specialties y40-1101-1 l Request [id number] [facility] nn 9b9c1f 2014-12-05 2014-12-05 cough is nullFlavo [place] 2bea 403b-0 Memoria 14:45:00 14:45:00 worse r Specialties fb6-48ad-b l ba0-9e3ce5 [facility] nn 30df38 2014-12-05 2014-12-05 cough is nullFlavo [place] 2db3 2642-8 Memoria 14:45:00 14:45:00 worse r Specialties f1k-1x21-p l 571-615f6f [facility] nn 150edd 2014-12-05 2014-12-05 cough is nullFlavo [place] 1b03 7bf9-1 [facility] 14:45:00 14:45:00 worse r Specialties 229-452e-b l 410-jg427k [facility] nn 30f4c9 2014-12-05 2014-12-05 cough is nullFlavo [place] 5fdf ae7a-b [facility] 14:45:00 14:45:00 worse r Specialties q5p-71l1-m l 11a-bbba7e [facility] nn 15b26a 2014-12-05 2014-12-05 cough is nullFlavo [place] 0d1d 6f95-4 [facility] 14:45:00 14:45:00 worse r Specialties 860-456e-9 l 93f-c876fb [facility] nn 7b3aad 2014-12-05 2014-12-05 cough is nullFlavo [place] f23f abe5-b [facility] 14:45:00 14:45:00 worse r Specialties cf0-4667-a l 66c-91fe87 [facility] nn 00863m 2014-12-05 2014-12-05 cough is nullFlavo [place] 341a fd2b-4 Memoria 14:45:00 14:45:00 worse r Specialties 369-4f7d-9 l 8l2-kts30h Mi nn e141f8 2014-12-05 2014-12-05 cough is nullFlavo [place] 9b4f bb4e-6 [facility] 14:45:00 14:45:00 worse r Specialties 5q4-3j0z-w l 6eb-851951 Mi nn 6306bf 2014-12-05 2014-12-05 cough is nullFlavo [place] 48f1 e207-1 [facility] 14:45:00 14:45:00 worse r Specialties 616-4ec7-8 l s89-9ols57 Mi nn 8d0d42 2014-12-05 2014-12-05 cough is nullFlavo [place] 2632 d67e-1 Mem[facility] 14:45:00 14:45:00 worse r Specialties e46-5g89-t l eaa-1682c2 Mi nn 2afaf1 2014-12-05 2014-12-05 cough is nullFlavo [place] bf6d 64e9-d [facility] 14:45:00 14:45:00 worse r Specialties 2ac-4112-b l fd0-z5137z Mi nn 39c3c9 2014-12-05 2014-12-05 cough is nullFlavo [place] b8fc 3842-b [facility] 14:45:00 14:45:00 worse r Specialties 74c-45fc-b l 61e-5ab44c Mi nn a3291t 2014-12-05 2014-12-05 cough is nullFlavo [place] abc4 3f0f-2 [facility] 14:45:00 14:45:00 worse r Specialties 5df-4349-b l 79e-q1p839 Mi nn b19766 2014-12-05 2014-12-05 cough is nullFlavo [place] d761 7520-6 [facility] 14:45:00 14:45:00 worse r Specialties 3i6-8v4z-a l 87f-1524cd Mi nn cade96 2014-12-05 2014-12-05 cough is nullFlavo [place] bb00 5f52-9 [facility] 14:45:00 14:45:00 worse r Specialties 8dc-4ff5-8 l 3da-f9fad4 Mi nn zj6272 2014-12-05 2014-12-05 cough is nullFlavo [place] 51de 69b7-f [facility] 14:45:00 14:45:00 worse r Specialties 414-4677-9 l 79d-0u2604 [facility] nn i1801p 2014-12-05 2014-12-05 cough is nullFlavo [place] 4ab0 0a5f-2 [facility] 14:45:00 14:45:00 worse r Specialties 870-418d-9 l j96-1w7525 [facility] nn 7fee20 2014-12-05 2014-12-05 cough is nullFlavo [place] 182c 3ccf-a Mem[facility] 14:45:00 14:45:00 worse r Specialties 0l8-454u-9 l 930-34a8c0 [facility] nn 7de0e8 2014-12-05 2014-12-05 cough is nullFlavo [place] c94e 4913-1 [facility] 14:45:00 14:45:00 worse r Specialties 1ca-4082-9 l y9e-61l061 [facility] nn a16f95 2014-12-05 2014-12-05 cough is nullFlavo [place] ffcf d440-c [facility] 14:45:00 14:45:00 worse r Specialties 504-43a9-b l v04-l84so4 [facility] nn 7i415w 2014-12-05 2014-12-05 cough is nullFlavo [place] c0bf c1de-7 [facility] 14:45:00 14:45:00 worse r Specialties 7e3-44e3-i l 30f-v6r318 [facility] nn 91v824 2014-12-05 2014-12-05 cough is nullFlavo [place] eed0 1beb-2 [facility] 14:45:00 14:45:00 worse r Specialties bd9-49bd-b l 00a-164678 [facility] nn m9s592 2014-12-05 2014-12-05 cough is nullFlavo [place] a7d3 ae13-4 [facility] 14:45:00 14:45:00 worse r Specialties 9e3-7fv7-4 l 3t3-969g81 [facility] nn 605071 2800-10-14 2014-12-05 cough is nullFlavo [place] 1b03 7bf9-1 [facility] 14:45:00 14:45:00 worse r Specialties 229-452e-b l 410-zi096n Mi nn 30f4c9 2014-12-05 2014-12-05 cough is nullFlavo [place] 2bea 403b-0 [facility] 14:45:00 14:45:00 worse r Specialties fb6-48ad-b l ba0-9e3ce5 Mi nn 30df38 2014-12-05 2014-12-05 cough is nullFlavo [place] 9b4f bb4e-6 [facility] 14:45:00 14:45:00 worse r Specialties 5o0-5c8p-w l 6eb-215748 Mi nn 6306bf 2014-12-05 2014-12-05 cough is nullFlavo [place] 341a fd2b-4 [facility] 14:45:00 14:45:00 worse r Specialties 369-4f7d-9 l 0q3-rnx20h Mi nn e141f8 2014-12-05 2014-12-05 cough is nullFlavo [place] 2db3 2642-8 [facility] 14:45:00 14:45:00 worse r Specialties t1b-0d90-n l 571-615f6f Mi nn 150edd 2014-12-05 2014-12-05 cough is nullFlavo [place] 48f1 e207-1 [facility] 14:45:00 14:45:00 worse r Specialties 616-4ec7-8 l o20-4vcv98 Mi nn 8d0d42 2014-12-05 2014-12-05 cough is nullFlavo [place] 0d1d 6f95-4 [facility] 14:45:00 14:45:00 worse r Specialties 860-456e-9 l 93f-c876fb Mi nn 7b3aad 2014-12-05 2014-12-05 cough is nullFlavo [place] 5fdf ae7a-b [facility] 14:45:00 14:45:00 worse r Specialties k9i-42k4-k l 11a-bbba7e Mi nn 15b26a 2014-12-05 2014-12-05 cough is nullFlavo [place] f23f abe5-b [facility] 14:45:00 14:45:00 worse r Specialties cf0-4667-a l 66c-91fe87 Mi nn 34241e 2014-12-05 2014-12-05 cough is nullFlavo [place] 2632 d67e-1 [facility] 14:45:00 14:45:00 worse r Specialties f57-1q94-i l eaa-1682c2 Mi nn 2afaf1 2014-12-05 2014-12-05 cough is nullFlavo [place] 51de 69b7-f [facility] 14:45:00 14:45:00 worse r Specialties 414-4677-9 l 79d-6e4341 Mi nn s6015y 2014-12-05 2014-12-05 cough is nullFlavo [place] abc4 3f0f-2 [facility] 14:45:00 14:45:00 worse r Specialties 5df-4349-b l 79e-r4j440 Im nn s15113 2014-12-05 2014-12-05 cough is nullFlavo [place] 182c 3ccf-a [facility] 14:45:00 14:45:00 worse r Specialties 1f2-932d-5 l 930-34a8c0 Mi nn 7de0e8 2014-12-05 2014-12-05 cough is nullFlavo [place] d761 7520-6 [facility] 14:45:00 14:45:00 worse r Specialties 8f0-9d6h-h l 87f-1524cd Mi nn cade96 2014-12-05 2014-12-05 cough is nullFlavo [place] b8fc 3842-b [facility] 14:45:00 14:45:00 worse r Specialties 74c-45fc-b l 61e-5ab44c Mi nn y8103v 2014-12-05 2014-12-05 cough is nullFlavo [place] bb00 5f52-9 [facility] 14:45:00 14:45:00 worse r Specialties 8dc-4ff5-8 l 3da-f9fad4 Mi nn cu6284 2014-12-05 2014-12-05 cough is nullFlavo [place] c0bf c1de-7 [facility] 14:45:00 14:45:00 worse r Specialties 1a7-26q2-y l 30f-k8m847 Mi nn 95m613 2014-12-05 2014-12-05 cough is nullFlavo [place] c94e 4913-1 [facility] 14:45:00 14:45:00 worse r Specialties 1ca-4082-9 l z4p-95g824 Mi nn a16f95 2014-12-05 2014-12-05 cough is nullFlavo [place] 4ab0 0a5f-2 [facility] 14:45:00 14:45:00 worse r Specialties 870-418d-9 l l25-4f3561 Mi nn 7fee20 2014-12-05 2014-12-05 cough is nullFlavo [place] bf6d 64e9-d [facility] 14:45:00 14:45:00 worse r Specialties 2ac-4112-b l [id number]-[id number] Mi nn [id number] 2014-12-05 2014-12-05 cough is nullFlavo [place] ffcf d440-c [facility] 14:45:00 14:45:00 worse r Specialties 504-43a9-b l k13-c22uw4 Mi nn [id number] 2014-12-05 2014-12-05 cough is nullFlavo [place] a7d3 ae13-4 [facility] 14:45:00 14:45:00 worse r Specialties 3u9-4jq4-6 l [id number] Mi nn [id number] 6804-10-14 2014-12-05 cough is nullFlavo [place] eed0 1beb-2 [facility] 14:45:00 14:45:00 worse r Specialties bd9-49bd-b l [id number]-[id number] Mi nn [id number] 2014-12-05 2014-12-05 cough is nullFlavo [place] 82a3 f2db-a [facility] 13:45:00 13:45:00 worse r Specialties m4c-2a45-p l dde-48o727 Mi nn [id number] 2014-12-05 2014-12-05 cough is nullFlavo [place] 46b6 3eba-b [facility] 13:45:00 13:45:00 worse r Specialties 91d-41b2-9 l [id number]-rjo373 Mi nn [id number] 2014-12-05 2014-12-05 cough is nullFlavo [place] d870 0619-1 [facility] 13:45:00 13:45:00 worse r Specialties h18-4e82-1 l 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 Mi nn [id number] 2014-12-05 2014-12-05 cough is nullFlavo [place] 2219 aae4-3 [facility] 13:45:00 13:45:00 worse r Specialties 80d-430f-9 l ff9-23a5d3 Mi nn 2bb9d1 2014-12-05 2014-12-05 cough is nullFlavo [place] 18b6 72fc-3 [facility] 13:45:00 13:45:00 worse r Specialties 185-4d03-8 l 77d-4a2b1e Mi nn [id number] 2014-12-05 2014-12-05 cough is nullFlavo [place] c2d1 94dc-5 [facility] 13:45:00 13:45:00 worse r Specialties 4ed-414b-9 l 696-96fc1f Mi nn 3bd98d 2014-12-05 2014-12-05 cough is nullFlavo [place] 9a3a ae3a-e [facility] 13:45:00 13:45:00 worse r Specialties 352-4bb6-9 l 3fe-24fb87 Mi nn 4afb23 2014-12-05 2014-12-05 cough is nullFlavo [place] fb9b fbeb-5 [facility] 13:45:00 13:45:00 worse r Specialties 725-4a56-9 l 3h9-a342l0 Mi nn [id number] 2014-12-05 2014-12-05 cough is nullFlavo [place] b996 918b-e [facility] 13:45:00 13:45:00 worse r Specialties p94-817x-q l t08-l249m9 Mi nn [id number] 2014-12-05 2014-12-05 cough is nullFlavo [place] dfc3 c17c-e [facility] 13:45:00 13:45:00 worse r Specialties 8c0-2uwv-o l 894-20z580 Mi nn 2cc8d2 2014-12-05 2014-12-05 cough is nullFlavo [place] 3121 e1fe-5 [facility] 13:45:00 13:45:00 worse r Specialties 197-46d6-9 l 87c-190ae4 Mi nn [id number] 2014-12-05 2014-12-05 cough is nullFlavo [place] ba74 2f19-2 [facility] 13:45:00 13:45:00 worse r Specialties y86-9l3m-k l 416-232dc9 Mi nn f2d6af 2014-12-05 2014-12-05 cough is nullFlavo [place] a813 e05d-7 [facility] 13:45:00 13:45:00 worse r Specialties 21e-4407-9 l g72-3w855v [facility] nn c92a8b 2014-12-05 2014-12-05 cough is nullFlavo [place] 28f7 75f0-d [facility] 13:45:00 13:45:00 worse r Specialties 615-4539-b l 4n0-3e50o3 [facility] nn [id number] 2014-12-05 2014-12-05 cough is nullFlavo [place] 01f4 ab6c-9 [facility] 13:45:00 13:45:00 worse r Specialties 0fa-4295-a l [id number]-[id number] [facility] nn [id number] 2014-12-05 2014-12-05 cough is nullFlavo [place] cf7f ed46-8 [facility] 13:45:00 13:45:00 worse r Specialties m8z-1q5s-a l 593-vi2779 [facility] nn er800e 2014-12-05 2014-12-05 cough is nullFlavo [place] 8d0c 1c89-f [facility] 13:45:00 13:45:00 worse r Specialties e30-266a-t l 7bc-5eece1 [facility] nn da05ae 2014-12-05 2014-12-05 cough is nullFlavo [place] 3b19 84f9-f [facility] 13:45:00 13:45:00 worse r Specialties 971-4f74-a l [id number] [facility] nn d110ff 2014-12-05 2014-12-05 [place] c4ab 19f9-6 [facility] 13:45:00 13:45:00 worse r Specialties ae8-4203-8 l 11d-k9a412 [facility] nn e016a7 2014-12-05 2014-12-05 cough [place] 0ea5 51d7-7 [facility] 13:45:00 13:45:00 worse r Specialties p5i-8mj8-6 l 2cb-332760 Mi nn 9uh714 2014-12-05 2014-12-05 cough is [place] 46b6 3eba-b [facility] 13:45:00 13:45:00 worse r Specialties 91d-41b2-9 l 6d9-gkk086 Mi nn 64122l 2014-12-05 2014-12-05 cough is [place] 2219 aae4-3 [facility] 13:45:00 13:45:00 worse r Specialties 80d-430f-9 l ff9-23a5d3 Mi nn 2bb9d1 2014-12-05 2014-12-05 cough is [place] d870 0619-1 [facility] 13:45:00 13:45:00 worse r Specialties d47-7k88-2 l 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-854395 Mi nn 644e1e 2014-12-05 2014-12-05 cough is null[place] 82a3 f2db-a [facility] 13:45:00 13:45:00 worse r Specialties i8t-7y87-k l dde-59l126 Mi nn d88663 2014-12-05 2014-12-05 cough is [place] 9a3a ae3a-e [facility] 13:45:00 13:45:00 worse r Specialties 352-4bb6-9 l 3fe-24fb87 Mi nn 4afb23 2014-12-05 2014-12-05 cough is [place] 3121 e1fe-5 [facility] 13:45:00 13:45:00 worse r Specialties 197-46d6-9 l 87c-190ae4 Mi nn r0514v 2014-12-05 2014-12-05 cough is null[place] dfc3 c17c-e [facility] 13:45:00 13:45:00 worse r Specialties 7x7-8bom-t l 894-23a235 Mi nn 2cc8d2 2014-12-05 2014-12-05 cough is [place] 18b6 72fc-3 [facility] 13:45:00 13:45:00 worse r Specialties 185-4d03-8 l 77d-4a2b1e Mi nn 3429e7 2014-12-05 2014-12-05 cough is null[place] c2d1 94dc-5 [facility] 13:45:00 13:45:00 worse r Specialties 4ed-414b-9 l 696-96fc1f Mi nn 3bd98d 2014-12-05 2014-12-05 cough is nullFl[place] ba74 2f19-2 [facility] 13:45:00 13:45:00 worse r Specialties e73-4p2i-o l 416-232dc9 Mi nn f2d6af 2014-12-05 2014-12-05 cough is null[place] b996 918b-e [facility] 13:45:00 13:45:00 worse r Specialties v35-115g-o l o35-i237z9 Mi nn 4a9a12 2014-12-05 2014-12-05 cough is [place] cf7f ed46-8 [facility] 13:45:00 13:45:00 worse r Specialties e2w-3n6k-h l 593-vs9125 Mi nn eq868o 2014-12-05 2014-12-05 cough is null[place] 8d0c 1c89-f [facility] 13:45:00 13:45:00 worse r Specialties p81-958t-s l 7bc-5eece1 Mi nn da05ae 2014-12-05 2014-12-05 cough is nullFl[place] 3b19 84f9-f [facility] 13:45:00 13:45:00 worse r Specialties 971-4f74-a l 00d-832348 Mi nn d110ff 2014-12-05 2014-12-05 cough is nullFl[place] a813 e05d-7 [facility] 13:45:00 13:45:00 worse r Specialties 21e-4407-9 l g88-2f442m Mi nn c92a8b 2014-12-05 2014-12-05 cough is nullFl[place] fb9b fbeb-5 [facility] 13:45:00 13:45:00 worse r Specialties 725-4a56-9 l 6t1-q702h3 Mi nn e6f8ac 2014-12-05 2014-12-05 cough is nullFl[place] c4ab 19f9-6 [facility] 13:45:00 13:45:00 worse r Specialties ae8-4203-8 l 11d-q6d022 Mi nn e016a7 2014-12-05 2014-12-05 cough is nullFl[place] 28f7 75f0-d [facility] 13:45:00 13:45:00 worse r Specialties 615-4539-b l 7d5-8j10f0 Mi nn 3hp953 2014-12-05 2014-12-05 cough is nullFl[place] 01f4 ab6c-9 [facility] 13:45:00 13:45:00 worse r Specialties 0fa-4295-a l 665-b12274 Mi nn b7e279 2014-12-05 2014-12-05 cough is nullFl[place] 0ea5 51d7-7 [facility] 13:45:00 13:45:00 worse r Specialties d5z-0ua4-0 l 2cb-846780 Mi nn 2dy108 2014-11-29 2014-11-29 coughing/ nullFl[place] ae6 e2a00-v [facility] 19:15:00 19:15:00 chest pain r Specialties f7u-6xm f-9 l cd8-5u9272 Mi nn 7s8894 2014-11-29 2014-11-29 coughing/ nullFl[place] 8ce 8d42o-w [facility] 19:15:00 19:15:00 chest pain r Specialties 5i4-1xz a-a l 985-25fc4a Mi nn 8d3f84 2014-11-29 2014-11-29 coughing/ nullFl[facility] [place] 140 f8722-p Mem[facility] 19:15:00 19:15:00 chest pain r Specialties ad4-4a6 9-9 l 781-9020ec Mi nn j8v053 2014-11-29 2014-11-29 coughing/ nullFl[place] 65a 5vt2y-b [facility] 19:15:00 19:15:00 chest pain r Specialties 050-416 c-a l cf3-30ab65 Mi nn rb689m 2014-11-29 2014-11-29 coughing/ nullFl[place] 8ce o8309-o Mem[facility] 19:15:00 19:15:00 chest pain r Specialties 0fd-4c4 7-9 l 527-fe0aac Mi nn f17c45 2014-11-29 2014-11-29 coughing/ nullFl[place] d93 2976a-8 Mem[facility] 19:15:00 19:15:00 chest pain r Specialties 1y2-8y7 a-b l 07e-065a80 Mi nn 095b4b 2014-11-29 2014-11-29 coughing/ nullFl[facility] [place] 835 zt2mj-7 [facility] 19:15:00 19:15:00 chest pain r Specialties dc7-49c f-9 l 6o0-x7l782 Mi nn 110929 9047-10-08 2014-11-29 coughing/ null[place] 74f 66h85-k Mem[facility] 19:15:00 19:15:00 chest pain r Specialties cd7-4a5 8-b l 544-ch819g Mi nn 7b14dc 2014-11-29 2014-11-29 coughing/ nullFl[place] 721 ow47a-1 Mem[facility] 19:15:00 19:15:00 chest pain r Specialties eca-436 4-9 l 20e-d2fa57 Mi nn 47dbd9 2014-11-29 2014-11-29 coughing/ nullFl[place] b77 054d9-4 [facility] 19:15:00 19:15:00 chest pain r Specialties 757-476 8-b l q40-6zd97t Mi nn 391a8f 2014-11-29 2014-11-29 coughing/ null[place] [place] dd0 ikq0d-8 [facility] 19:15:00 19:15:00 chest pain r Specialties 66d-415 f-a l 2b7-53ann3 Mi nn 2014-11-29 2014-11-29 coughing/ nullFl[facility] [place] 9f6 8o71k-8 [facility] 19:15:00 19:15:00 chest pain r Specialties 08d-44c f-b l afe-k9e928 Mi nn m64057 2014-11-29 2014-11-29 coughing/ nullFl[facility] [place] c89 6914b-6 [facility] 19:15:00 19:15:00 chest pain r Specialties 0o3-7ee c-9 l cb1-4d72fb Mi nn 07m497 2014-11-29 2014-11-29 coughing/ nullFl[facility] [place] ee0 f7884-2 [facility] 19:15:00 19:15:00 chest pain r Specialties 90c-4af 9-9 l ff4-6wb418 Mi nn 0cc1a0 2014-11-29 2014-11-29 coughing/ null[place] [place] d0b 471a3-g [facility] 19:15:00 19:15:00 chest pain r Specialties a27-4e6 a-9 l 257-39eed7 Mi nn 46522m 2014-11-29 2014-11-29 coughing/ null[place] [place] 414 679e0-p [facility] 19:15:00 19:15:00 chest pain r Specialties 512-4de f-b l 90b-1b9c84 Mi nn 5deaf5 2014-11-29 2014-11-29 coughing/ nullFl[place] 2ec f7j9y-6 [facility] 19:15:00 19:15:00 chest pain r Specialties 544-46a 2-8 l f57-432x22 Mi nn d8c05b 2014-11-29 2014-11-29 coughing/ null[place] 81b 283d8-2 [facility] 19:15:00 19:15:00 chest pain r Specialties 30c-439 5-b l 6f6-o8p22o Mi nn b0ad1f 2014-11-29 2014-11-29 coughing/ null[place] [place] d8f xx67u-n [facility] 19:15:00 19:15:00 chest pain r Specialties 8f5-9ux c-9 l 714-1479a0 Mi nn df53b8 2014-11-29 2014-11-29 coughing/ null[place] [place] 6c8 w40te-f [facility] 19:15:00 19:15:00 chest pain r Specialties u4c-527 c-9 l 9w5-2314zo Mi nn df9d9e 2014-11-29 2014-11-29 coughing/ null[place] 2a6 i26yc-2 [facility] 19:15:00 19:15:00 chest pain r Specialties 04e-4e8 2-8 l 0ab-b9dc19 Mi nn 3815eb 2014-11-29 2014-11-29 coughing/ null[place] d9f m0548-q [facility] 19:15:00 19:15:00 chest pain r Specialties b53-463 3-9 l 396-o3w854 Mi nn 54e9dd 2014-11-29 2014-11-29 coughing/ nullFl[facility] [place] fe9 il67c-1 [facility] 19:15:00 19:15:00 chest pain r Specialties 76a-416 5-9 l bc4-de1a7f Mi nn f09f3a 2014-11-29 2014-11-29 coughing/ null[place] 140 k4572-q [facility] 19:15:00 19:15:00 chest pain r Specialties ad4-4a6 9-9 l 781-9020ec Mi nn d8f108 2014-11-29 2014-11-29 coughing/ null[place] ae6 n7o75-e [facility] 19:15:00 19:15:00 chest pain r Specialties h3e-8lk f-9 l cd8-3o4186 Mi nn 0u6458 2014-11-29 2014-11-29 coughing/ null[place] 74f 82c68-h [facility] 19:15:00 19:15:00 chest pain r Specialties cd7-4a5 8-b l 544-mo271z Mi nn 7b14dc 2014-11-29 2014-11-29 coughing/ null[facility] [place] 835 tz4ic-0 [facility] 19:15:00 19:15:00 chest pain r Specialties dc7-49c f-9 l 3g2-o1o574 Mi nn 742325 4532-10-08 2014-11-29 coughing/ null[facility] [place] 8ce 9s32v-f [facility] 19:15:00 19:15:00 chest pain r Specialties 5e7-6dy a-a l 985-25fc4a Mi nn 8d3f84 2014-11-29 2014-11-29 coughing/ nullFl[facility] [place] 721 qk44u-9 [facility] 19:15:00 19:15:00 chest pain r Specialties eca-436 4-9 l 20e-d2fa57 Mi nn 47dbd9 2014-11-29 2014-11-29 coughing/ nullFl[facility] [place] 8ce x9791-w [facility] 19:15:00 19:15:00 chest pain r Specialties 0fd-4c4 7-9 l 527-fe0aac Mi nn f17c45 2014-11-29 2014-11-29 coughing/ nullFl[facility] [place] 65a 6vw1i-e [facility] 19:15:00 19:15:00 chest pain r Specialties 050-416 c-a l cf3-30ab65 Mi nn bz818l 2014-11-29 2014-11-29 coughing/ nullFl[facility] [place] d93 2976a-8 [facility] 19:15:00 19:15:00 chest pain r Specialties 4b2-6h3 a-b l 07e-065a80 Mi nn 095b4b 2014-11-29 2014-11-29 coughing/ nullFl[facility] [place] b77 564m2-4 [facility] 19:15:00 19:15:00 chest pain r Specialties 757-476 8-b l n32-6hg49x Mi nn 391a8f 2014-11-29 2014-11-29 coughing/ nullFl[facility] [place] 414 415k6-f [facility] 19:15:00 19:15:00 chest pain r Specialties 512-4de f-b l 90b-1b9c84 Mi nn 5deaf5 2014-11-29 2014-11-29 coughing/ nullFl[place] c89 6914b-6 [facility] 19:15:00 19:15:00 chest pain r Specialties 6m7-9la c-9 l cb1-4d72fb Mi nn 47g154 2014-11-29 2014-11-29 coughing/ nullFl[facility] [place] 81b 875j6-9 [facility] 19:15:00 19:15:00 chest pain r Specialties 30c-439 5-b l 0z3-h7b48h Mi nn b0ad1f 2014-11-29 2014-11-29 coughing/ nullFl[place] ee0 m7816-1 [facility] 19:15:00 19:15:00 chest pain r Specialties 90c-4af 9-9 l ff4-3ff579 Mi nn 0cc1a0 2014-11-29 2014-11-29 coughing/ nullFl[facility] [place] 9f6 5k23d-7 [facility] 19:15:00 19:15:00 chest pain r Specialties 08d-44c f-b l afe-t1g729 Mi nn m10930 2014-11-29 2014-11-29 coughing/ nullFl[facility] [place] d0b 418y4-d [facility] 19:15:00 19:15:00 chest pain r Specialties a27-4e6 a-9 l 257-39eed7 Mi nn 20013m 2014-11-29 2014-11-29 coughing/ nullFl[facility] [place] 2a6 a97fu-7 [facility] 19:15:00 19:15:00 chest pain r Specialties 04e-4e8 2-8 l 0ab-b9dc19 Mi nn 3815eb 2014-11-29 2014-11-29 coughing/ nullFl[facility] [place] d8f ik89s-b [facility] 19:15:00 19:15:00 chest pain r Specialties 9m5-1lg c-9 l 714-1479a0 Mi nn df53b8 2014-11-29 2014-11-29 coughing/ nullFl[facility] [place] 2ec m3i7b-9 [facility] 19:15:00 19:15:00 chest pain r Specialties 544-46a 2-8 l c37-197g06 Mi nn d8c05b 2014-11-29 2014-11-29 coughing/ null[place] [place] dd0 tfh9b-9 [facility] 19:15:00 19:15:00 chest pain r Specialties 66d-415 f-a l 7l8-43hoe8 Mi nn 2014-11-29 2014-11-29 coughing/ null[facility] [place] 6c8 k95zb-z [facility] 19:15:00 19:15:00 chest pain r Specialties j3e-769 c-9 l 9c2-6149iv Mi nn df9d9e 2014-11-29 2014-11-29 coughing/ nullFl[facility] [place] fe9 wl86i-2 [facility] 19:15:00 19:15:00 chest pain r Specialties 76a-416 5-9 l bc4-de1a7f Mi nn f09f3a 2014-11-29 2014-11-29 coughing/ null[facility] [place] d9f z7032-c [facility] 19:15:00 19:15:00 chest pain r Specialties b53-463 3-9 l 396-n1c146 Mi nn 54e9dd 2014-11-29 2014-11-29 coughing/ nullFl[facility] [place] 2d5 0o9o9-9 [facility] 18:15:00 18:15:00 chest pain r Specialties 851-480 1-8 l fe3-o8249y Mi nn 44a32a 2014-11-29 2014-11-29 coughing/ nullFl[facility] [place] 941 o681g-8 [facility] 18:15:00 18:15:00 chest pain r Specialties l7w-9q3 3-8 l x90-123l73 Mi nn 72039o 2014-11-29 2014-11-29 coughing/ nullFl[facility] [place] f75 795w6-8 [facility] 18:15:00 18:15:00 chest pain r Specialties 815-4dd 3-a l tack puller-v5333d Mi nn bc5ff0 2014-11-29 2014-11-29 coughing/ null[facility] [place] dca f894w-3 [facility] 18:15:00 18:15:00 chest pain r Specialties x4e-1s6 8-b l x29-38hzu1 Mi nn ac51b3 2014-11-29 2014-11-29 coughing/ nullFl[facility] [place] 013 44131-2 [facility] 18:15:00 18:15:00 chest pain r Specialties 174-4a2 0-9 l 0cc-f262db Mi nn z0j995 2014-11-29 2014-11-29 coughing/ nullFl[facility] [place] e21 6a35p-6 [facility] 18:15:00 18:15:00 chest pain r Specialties 3i8-508 b-a l i18-596x94 Mi nn ff4b08 2014-11-29 2014-11-29 coughing/ nullFl[facility] [place] f41 0e0y2-8 [facility] 18:15:00 18:15:00 chest pain r Specialties 96e-487 d-9 l 96b-4424e4 Mi nn 0qt948 2014-11-29 2014-11-29 coughing/ nullFl[facility] [place] 309 4f446-5 [facility] 18:15:00 18:15:00 chest pain r Specialties 8c5-74q 5-a l 8aa-9ff88b Mi nn f36ad6 2014-11-29 2014-11-29 coughing/ nullFl[facility] [place] 483 6o8wt-9 [facility] 18:15:00 18:15:00 chest pain r Specialties 5u1-818 d-b l p7e-7bdm50 Mi nn m1076k 2014-11-29 2014-11-29 coughing/ nullFl[facility] [place] f9e 1952a-d [facility] 18:15:00 18:15:00 chest pain r Specialties 65c-4d0 f-8 l 304-937265 Mi nn 2515ae 2014-11-29 2014-11-29 coughing/ nullFl[facility] [place] 2e7 6276e-e [facility] 18:15:00 18:15:00 chest pain r Specialties 910-488 a-9 l 93f-966c80 Mi nn e31f2d 2014-11-29 2014-11-29 coughing/ nullFl[facility] [place] 2fe vk7c0-n [facility] 18:15:00 18:15:00 chest pain r Specialties d24-488 8-8 l 498-287455 Mi nn 4457d5 2014-11-29 2014-11-29 coughing/ nullFl[facility] [place] eb3 69924-2 [facility] 18:15:00 18:15:00 chest pain r Specialties 4j2-248 f-b l v10-h14s90 Mi nn 2fd5b6 2014-11-29 2014-11-29 coughing/ null[place] 2a0 55eh0-v [facility] 18:15:00 18:15:00 chest pain r Specialties 825-42d 1-8 l 6g7-528494 Mi nn m7585o 2014-11-29 2014-11-29 coughing/ nullFl[facility] [place] 9d5 r55jy-a [facility] 18:15:00 18:15:00 chest pain r Specialties 4h1-841 2-a l 404-0bb2fb Mi nn f906fd 2014-11-29 2014-11-29 coughing/ null[place] [place] 4d2 58810-4 [facility] 18:15:00 18:15:00 chest pain r Specialties 5ef-408 5-8 l 681-4a5cce Mi nn d139ec 2014-11-29 2014-11-29 coughing/ nullFl[facility] [place] 864 7z799-w [facility] 18:15:00 18:15:00 chest pain r Specialties 074-4ab 6-a l k06-35spnu Mi nn e991ef 2014-11-29 2014-11-29 coughing/ nullFl[facility] [place] a01 al316-2 [facility] 18:15:00 18:15:00 chest pain r Specialties 45d-49a c-b l 5ad-009bdc Mi nn 1786fc 2014-11-29 2014-11-29 coughing/ nullFl[facility] [place] a8e e3pj3-u [facility] 18:15:00 18:15:00 chest pain r Specialties 689-429 0-a l 1y4-76hvk4 Mi nn 2e3ba1 2014-11-29 2014-11-29 coughing/ null[facility] [place] c1d 9oz6m-8 [facility] 18:15:00 18:15:00 chest pain r Specialties eb4-417 1-a l b21-15nl21 Mi nn e68132 2014-11-29 2014-11-29 coughing/ nullFl[facility] [place] 941 q586o-5 [facility] 18:15:00 18:15:00 chest pain r Specialties l2s-0x4 3-8 l n24-436j14 Mi nn 50617a 2014-11-29 2014-11-29 coughing/ nullFl[facility] [place] dca z759z-8 [facility] 18:15:00 18:15:00 chest pain r Specialties s6h-7x0 8-b l n23-56pcd3 Mi nn ac51b3 2014-11-29 2014-11-29 coughing/ null[facility] [place] f75 297l4-1 [facility] 18:15:00 18:15:00 chest pain r Specialties 815-4dd 3-a l tack puller-w2565w Mi nn bc5ff0 2014-11-29 2014-11-29 coughing/ nullFl[facility] [place] 2d5 6i5p0-6 [facility] 18:15:00 18:15:00 chest pain r Specialties 851-480 1-8 l fe3-z0901n Mi nn 44a32a 2014-11-29 2014-11-29 coughing/ nullFl[facility] [place] f41 5a7p1-9 [facility] 18:15:00 18:15:00 chest pain r Specialties 96e-487 d-9 l 96b-4424e4 Mi nn 7ui354 2014-11-29 2014-11-29 coughing/ nullFl[facility] [place] 2e7 6276e-e [facility] 18:15:00 18:15:00 chest pain r Specialties 910-488 a-9 l 93f-966c80 Mi nn e31f2d 2014-11-29 2014-11-29 coughing/ nullFl[facility] [place] f9e 1952a-d [facility] 18:15:00 18:15:00 chest pain r Specialties 65c-4d0 f-8 l 304-928938 Mi nn 2515ae 2014-11-29 2014-11-29 coughing/ nullFl[facility] [place] 013 83858-5 [facility] 18:15:00 18:15:00 chest pain r Specialties 174-4a2 0-9 l 0cc-f262db Mi nn n1d522 2014-11-29 2014-11-29 coughing/ nullFl[facility] [place] e21 8e06y-6 [facility] 18:15:00 18:15:00 chest pain r Specialties 9n3-270 b-a l q65-395v53 Mi nn ff4b08 2014-11-29 2014-11-29 coughing/ nullFl[facility] [place] 2fe mr2i2-u [facility] 18:15:00 18:15:00 chest pain r Specialties d24-488 8-8 l 498-752632 Mi nn 4457d5 2014-11-29 2014-11-29 coughing/ nullFl[facility] [place] 483 2v5yx-4 [facility] 18:15:00 18:15:00 chest pain r Specialties 2q7-763 d-b l a7w-1mnb81 Mi nn h3155i 2014-11-29 2014-11-29 coughing/ nullFl[facility] [place] 4d2 93257-5 [facility] 18:15:00 18:15:00 chest pain r Specialties 5ef-408 5-8 l 681-4a5cce Mi nn d139ec 2014-11-29 2014-11-29 coughing/ nullFl[facility] [place] 864 1w393-y [facility] 18:15:00 18:15:00 chest pain r Specialties 074-4ab 6-a l z30-27obmg Mi nn e991ef 2014-11-29 2014-11-29 coughing/ null[facility] [place] a01 mm542-2 [facility] 18:15:00 18:15:00 chest pain r Specialties 45d-49a c-b l 5ad-009bdc Mi nn 1786fc 2014-11-29 2014-11-29 coughing/ nullFl[facility] [place] eb3 81983-1 [facility] 18:15:00 18:15:00 chest pain r Specialties 5h9-822 f-b l t84-j45d91 Mi nn 2fd5b6 2014-11-29 2014-11-29 coughing/ null[facility] [place] 309 1k398-8 [facility] 18:15:00 18:15:00 chest pain r Specialties 2f3-19h 5-a l 8aa-9ff88b Mi nn f36ad6 2014-11-29 2014-11-29 coughing/ null[facility] [place] a8e b0je1-f [facility] 18:15:00 18:15:00 chest pain r Specialties 689-429 0-a l 9q7-37uug9 Mi nn 2e3ba1 2014-11-29 2014-11-29 coughing/ null[facility] [place] 2a0 89vg1-q [facility] 18:15:00 18:15:00 chest pain r Specialties 825-42d 1-8 l 2x8-720904 Mi nn a4567g 2014-11-29 2014-11-29 coughing/ null[facility] [place] 9d5 g11kb-a [facility] 18:15:00 18:15:00 chest pain r Specialties 4c2-814 2-a l 404-0bb2fb Mi nn f906fd 2014-11-29 2014-11-29 coughing/ null[facility] [place] c1d 2os8r-0 [facility] 18:15:00 18:15:00 chest pain r Specialties eb4-417 1-a l w08-66ti98 Mi nn w15022 2014-11-27 2014-11-27 novolog [place] [place] 3c774 0f9-8 [facility] 16:37:00 16:37:00 refilled r Specialties v26-9adi- a l 90X0 h04-nyg989 Mi nn ddd6ef 2014-11-27 2014-11-27 novolog [place] [place] 7e3b5 5a9-1 [facility] 16:37:00 16:37:00 refilled r Specialties 686-4e1f- a l 90X0 56f-492f65 Mi nn 9facf8 2014-11-27 2014-11-27 novolog null[facility] [place] 2dda6 86e-2 [facility] 16:37:00 16:37:00 refilled r Specialties 5r3-57n9- 9 l 90X0 2bb-x7861c Mi nn p80818 2014-11-27 2014-11-27 novolog [place] [place] f4998 5f3-8 [facility] 16:37:00 16:37:00 refilled r Specialties 4u3-6qs1- a l 90X0 3i4-w71y09 Mi nn 93w910 2014-11-27 2014-11-27 novolog nullFl[facility] [place] 24a78 a78-d [facility] 16:37:00 16:37:00 refilled r Specialties 6ed-4b3c- 9 l 90X0 q51-g66299 Mi nn 2fb2ff 2014-11-27 2014-11-27 novolog null[facility] [place] a0d94 b04-9 [facility] 16:37:00 16:37:00 refilled r Specialties 549-4bd0- 8 l 90X0 406-13e36d Mi nn 7b4c20 2014-11-27 2014-11-27 novolog [facility] [place] d5b9a 42b-d [facility] 16:37:00 16:37:00 refilled r Specialties 413-43e8- b l 90X0 c98-2869t9 Mi nn 43de35 2014-11-27 2014-11-27 novolog [place] [place] 04f76 953-3 [facility] 16:37:00 16:37:00 refilled r Specialties 5o3-601z- b l 90X0 93a-0ua135 Mi nn e60d35 2014-11-27 2014-11-27 novolog [place] [place] 96cd9 367-a [facility] 16:37:00 16:37:00 refilled r Specialties o9b-3i09- a l 90X0 21d-n4136q Mi nn a6e75c 2014-11-27 2014-11-27 novolog [place] 5c3bc 448-b [facility] 16:37:00 16:37:00 refilled r Specialties 3u9-3029- a l 90X0 bad-j50481 Mi nn r56941 2014-11-27 2014-11-27 novolog [place] [place] af6cc 382-4 [facility] 16:37:00 16:37:00 refilled r Specialties w7c-7w76- 9 l 90X0 s42-889f33 Mi nn 53176k 2014-11-27 2014-11-27 novolog [facility] [place] 7e5fa 4b9-d [facility] 16:37:00 16:37:00 refilled r Specialties 59f-4104- b l 90X0 v1o-9205aj Mi nn 5b8e7b 2014-11-27 2014-11-27 novolog [place] [place] 1e245 eba-8 [facility] 16:37:00 16:37:00 refilled r Specialties 497-4b65- 8 l 90X0 72b-11632a Mi nn e73cbe 2014-11-27 2014-11-27 novolog [facility] [place] d70dc e2b-5 [facility] 16:37:00 16:37:00 refilled r Specialties cef-45d0- a l 90X0 777-61de26 Mi nn 0ba7b0 2014-11-27 2014-11-27 novolog [place] [place] a6d80 161-6 [facility] 16:37:00 16:37:00 refilled r Specialties 19c-4934- 9 l 90X0 g7y-6j5c19 Mi nn tqy237 2014-11-27 2014-11-27 novolog nullFl[facility] [place] 961c7 4c0-f [facility] 16:37:00 16:37:00 refilled r Specialties faf-4e73- b l 90X0 093-186941 Mi nn 75ca03 2014-11-27 2014-11-27 novolog [facility] [place] 2a6b9 afe-e [facility] 16:37:00 16:37:00 refilled r Specialties 8fd-4f24- 8 l 90X0 66f-80bd3f Mi nn e810bb 2014-11-27 2014-11-27 novolog [facility] [place] 134a2 fd1-0 [facility] 16:37:00 16:37:00 refilled r Specialties j20-4r48- 9 l 90X0 a23-4ziq4v Mi nn 836aee 2014-11-27 2014-11-27 novolog nullFlavo [place] 405fd 7cf-9 [facility] 16:37:00 16:37:00 refilled r Specialties 699-418d- 8 l 90X0 m73-516lay Mi nn dea1b4 2014-11-27 2014-11-27 novolog nullFl[facility] [place] fe619 3b7-2 [facility] 16:37:00 16:37:00 refilled r Specialties 457-4840- b l 90X0 46b-l0474n Mi nn db3adc 2014-11-27 2014-11-27 novolog nullFl[facility] [place] 9c629 5a5-1 [facility] 16:37:00 16:37:00 refilled r Specialties 1ef-495e- a l 90X0 05d-5d0fe7 Mi nn f3d4bf 2014-11-27 2014-11-27 novolog nullFl[facility] [place] 2eb21 ff2-7 [facility] 16:37:00 16:37:00 refilled r Specialties 8ea-4396- 8 l 90X0 a4j-alvvgn Mi nn 72ba90 2014-11-27 2014-11-27 novolog nullFl[facility] [place] d0444 a65-5 [facility] 16:37:00 16:37:00 refilled r Specialties x36-13fv- a l 90X0 ae5-8d4e12 Mi nn 0d0fa3 2014-11-27 2014-11-27 novolog nullFl[facility] [place] 2dda6 86e-2 [facility] 16:37:00 16:37:00 refilled r Specialties 9o3-04q1- 9 l 90X0 2bb-c5368e Mi nn j07714 2014-11-27 2014-11-27 novolog nullFl[facility] [place] 3c774 0f9-8 [facility] 16:37:00 16:37:00 refilled r Specialties h20-3acc- a l 90X0 q89-mag703 Mi nn ddd6ef 2014-11-27 2014-11-27 novolog nullFl[facility] [place] 04f76 953-3 [facility] 16:37:00 16:37:00 refilled r Specialties 0z4-649a- b l 90X0 93a-5gs467 Mi nn e60d35 2014-11-27 2014-11-27 novolog nullFl[facility] [place] d5b9a 42b-d [facility] 16:37:00 16:37:00 refilled r Specialties 413-43e8- b l 90X0 o24-2518x9 Mi nn 43de35 2014-11-27 2014-11-27 novolog nullFl[facility] [place] 7e3b5 5a9-1 [facility] 16:37:00 16:37:00 refilled r Specialties 686-4e1f- a l 90X0 56f-492f65 Mi nn 9facf8 2014-11-27 2014-11-27 novolog nullFl[facility] [place] 96cd9 367-a [facility] 16:37:00 16:37:00 refilled r Specialties c2f-4y64- a l 90X0 21d-r5483q Mi nn a6e75c 2014-11-27 2014-11-27 novolog nullFl[facility] [place] 24a78 a78-d [facility] 16:37:00 16:37:00 refilled r Specialties 6ed-4b3c- 9 l 90X0 p80-r60754 Mi nn 2fb2ff 2014-11-27 2014-11-27 novolog nullFl[facility] [place] f4998 5f3-8 [facility] 16:37:00 16:37:00 refilled r Specialties 2k8-6xx7- a l 90X0 2j7-j22v90 Mi nn 78g691 2014-11-27 2014-11-27 novolog nullFl[facility] [place] a0d94 b04-9 [facility] 16:37:00 16:37:00 refilled r Specialties 549-4bd0- 8 l 90X0 406-13e36d Mi nn 7b4c20 2014-11-27 2014-11-27 novolog nullFl[facility] [place] 5c3bc 448-b [facility] 16:37:00 16:37:00 refilled r Specialties 8b7-5745- a l 90X0 bad-w07848 Mi nn v45710 2014-11-27 2014-11-27 novolog nullFlavo [place] 961c7 4c0-f [facility] 16:37:00 16:37:00 refilled r Specialties faf-4e73- b l 90X0 093-594433 Mi nn 75ca03 2014-11-27 2014-11-27 novolog nullFl[facility] [place] 1e245 eba-8 [facility] 16:37:00 16:37:00 refilled r Specialties 497-4b65- 8 l 90X0 72b-47878l Mi nn e73cbe 2014-11-27 2014-11-27 novolog nullFl[facility] [place] 134a2 fd1-0 [facility] 16:37:00 16:37:00 refilled r Specialties o21-3u86- 9 l 90X0 d07-4csn2z Mi nn 836aee 2014-11-27 2014-11-27 novolog nullFl[facility] [place] d70dc e2b-5 [facility] 16:37:00 16:37:00 refilled r Specialties cef-45d0- a l 90X0 777-61de26 Mi nn 0ba7b0 2014-11-27 2014-11-27 novolog nullFl[facility] [place] 7e5fa 4b9-d [facility] 16:37:00 16:37:00 refilled r Specialties 59f-4104- b l 90X0 d5h-3644ux Mi nn 5b8e7b 2014-11-27 2014-11-27 novolog nullFl[facility] [place] a6d80 161-6 [facility] 16:37:00 16:37:00 refilled r Specialties 19c-4934- 9 l 90X0 o0p-5m2c95 Mi nn ero194 2014-11-27 2014-11-27 novolog nullFlavo [place] 9c629 5a5-1 [facility] 16:37:00 16:37:00 refilled r Specialties 1ef-495e- a l 90X0 05d-5d0fe7 Mi nn f3d4bf 2014-11-27 2014-11-27 novolog nullFlavo [place] 405fd 7cf-9 [facility] 16:37:00 16:37:00 refilled r Specialties 699-418d- 8 l 90X0 f02-923ulo Mi nn dea1b4 2014-11-27 2014-11-27 novolog nullFlavo [place] 2a6b9 afe-e [facility] 16:37:00 16:37:00 refilled r Specialties 8fd-4f24- 8 l 90X0 66f-80bd3f Mi nn e810bb 2014-11-27 2014-11-27 novolog nullFl[facility] [place] af6cc 382-4 [facility] 16:37:00 16:37:00 refilled r Specialties c8v-6e01- 9 l 90X0 j72-911x45 Mi nn 27498y 2014-11-27 2014-11-27 novolog nullFlavo [place] fe619 3b7-2 [facility] 16:37:00 16:37:00 refilled r Specialties 457-4840- b l 90X0 46b-d4444l Mi nn db3adc 2014-11-27 2014-11-27 novolog nullFl[facility] [place] d0444 a65-5 [facility] 16:37:00 16:37:00 refilled r Specialties n63-24pc- a l 90X0 ae5-8d4e12 Mi nn 0d0fa3 2014-11-27 2014-11-27 novolog nullFl[facility] [place] 2eb21 ff2-7 [facility] 16:37:00 16:37:00 refilled r Specialties 8ea-4396- 8 l 90X0 p4t-plvtmq Mi nn 72ba90 2014-11-27 2014-11-27 novolog nullFl[facility] [place] ac1e7 6ae-4 [facility] 15:37:00 15:37:00 refilled r Specialties 463-4576- 8 l 90X0 6a1-1cj341 Mi nn abc4c8 2014-11-27 2014-11-27 novolog nullFlavo [place] 896f0 a93-e [facility] 15:37:00 15:37:00 refilled r Specialties 84b-4af1- 8 l 90X0 k6w-4e4z99 Mi nn 16fa22 2014-11-27 2014-11-27 [place] [address] 3ac-4 [facility] 15:37:00 15:37:00 refilled r Specialties 029-46b8- 9 l 90X0 d40-f5m61b [facility] nn wk6984 2014-11-27 2014-11-27 [facility] [place] 7cd5d e65-3 [facility] 15:37:00 15:37:00 refilled r Specialties 774-441a- a l 90X0 04e-234218 Mi nn 563e32 2014-11-27 2014-11-27 [facility] [place] ae49a 62c-8 [facility] 15:37:00 15:37:00 refilled r Specialties 589-4ba5- a l 90X0 ea9-x52727 Mi nn 18w072 2014-11-27 2014-11-27 [facility] [place] [place] d7135 8d2-f [facility] 15:37:00 15:37:00 refilled r Specialties 0cd-4812- 8 l 90X0 351-5ct452 Mi nn 65fc97 2014-11-27 2014-11-27 [facility] [place] 7a9bd 35c-c Mem[facility] 15:37:00 15:37:00 refilled r Specialties 2s7-07ol- 8 l 90X0 ad1-fdef2c Mi nn 2c5e9e 2014-11-27 2014-11-27 [facility] [place] [address] f7e-f [facility] 15:37:00 15:37:00 refilled r Specialties 587-4d6e- a l 90X0 o4w-u93041 Mi nn 50b48d 2014-11-27 2014-11-27 [facility] [place] 2f9a1 9b0-8 [facility] 15:37:00 15:37:00 refilled r Specialties 1q6-46nj- b l 90X0 ea6-025298 Mi nn 2922ec 2014-11-27 2014-11-27 [facility] [place] 41d55 92a-f [facility] 15:37:00 15:37:00 refilled r Specialties 0z7-905v- a l 90X0 5e5-5d2300 Mi nn 6ec6cc 2014-11-27 2014-11-27 [facility] [place] ab6ad 944-7 [facility] 15:37:00 15:37:00 refilled r Specialties 733-4107- 8 l 90X0 w8q-001b21 Mi nn l33321 2014-11-27 2014-11-27 [facility] [place] 4db05 fa7-c [facility] 15:37:00 15:37:00 refilled r Specialties 073-4f75- 9 l 90X0 8w2-47yxp9 Mi nn 34bce6 2014-11-27 2014-11-27 [facility] [place] 1721a 956-2 [facility] 15:37:00 15:37:00 refilled r Specialties 0aa-4d87- 8 l 90X0 230-5d29aa Mi nn 7f93e0 2014-11-27 2014-11-27 [facility] [place] 64e72 7b7-b [facility] 15:37:00 15:37:00 refilled r Specialties 55a-497a- b l 90X0 6fd-209f2d Mi nn 682e0d 2014-11-27 2014-11-27 [facility] [place] d2c64 50c-f [facility] 15:37:00 15:37:00 refilled r Specialties 27b-4d88- a l 90X0 402-51d8d8 Mi nn f9ebfb 2014-11-27 2014-11-27 [facility] [place] 7b9f7 a7e-9 [facility] 15:37:00 15:37:00 refilled r Specialties 14d-4092- b l 90X0 fc4-18bac0 Mi nn 26bcc7 2014-11-27 2014-11-27 [facility] [place] ca3ae 5b1-a [facility] 15:37:00 15:37:00 refilled r Specialties 5ac-41bc- 9 l 90X0 z2a-31ko4s Mi nn 21f39b 2014-11-27 2014-11-27 [facility] [place] 08e93 b5f-4 [facility] 15:37:00 15:37:00 refilled r Specialties 990-46ee- 8 l 90X0 m35-5250s4 Mi nn deb25c 2014-11-27 2014-11-27 [facility] [place] d6bfd 109-2 [facility] 15:37:00 15:37:00 refilled r Specialties v44-2968- 9 l 90X0 64e-634e52 Mi nn aabba2 2014-11-27 2014-11-27 [facility] [place] 8cc53 2c3-8 Mem[facility] 15:37:00 15:37:00 refilled r Specialties q73-2um6- a l 90X0 2q6-624qh6 Mi nn 2a393v 2014-11-27 2014-11-27 [facility] [place] 896f0 a93-e [facility] 15:37:00 15:37:00 refilled r Specialties 84b-4af1- 8 l 90X0 n4e-8x4u85 Mi nn 16fa22 2014-11-27 2014-11-27 [facility] [place] 7cd5d e65-3 [facility] 15:37:00 15:37:00 refilled r Specialties 774-441a- a l 90X0 04e-794388 Mi nn 563e32 2014-11-27 2014-11-27 [facility] [place] [address] 3ac-4 [facility] 15:37:00 15:37:00 refilled r Specialties 029-46b8- 9 l 90X0 a90-a3v01k Mi nn vk5003 2014-11-27 2014-11-27 [facility] [place] ac1e7 6ae-4 [facility] 15:37:00 15:37:00 refilled r Specialties 463-4576- 8 l 90X0 1h6-0nx055 Mi nn abc4c8 2014-11-27 2014-11-27 novolog [facility] [place] 7a9bd 35c-c [facility] 15:37:00 15:37:00 refilled r Specialties 4i1-23du- 8 l 90X0 ad1-fdef2c Mi nn 2c5e9e 2014-11-27 2014-11-27 [facility] [place] ab6ad 944-7 [facility] 15:37:00 15:37:00 refilled r Specialties 733-4107- 8 l 90X0 m6n-169a25 Mi nn k46499 2014-11-27 2014-11-27 novolog [facility] [place] 41d55 92a-f [facility] 15:37:00 15:37:00 refilled r Specialties 1d4-703o- a l 90X0 6v8-5r7688 Mi nn 6ec6cc 2014-11-27 2014-11-27 novolog [facility] [place] ae49a 62c-8 [facility] 15:37:00 15:37:00 refilled r Specialties 589-4ba5- a l 90X0 ea9-u82852 Mi nn 50m833 2014-11-27 2014-11-27 [facility]olog [place] [place] d7135 8d2-f [facility] 15:37:00 15:37:00 refilled r Specialties 0cd-4812- 8 l 90X0 351-5km637 Mi nn 65fc97 2014-11-27 2014-11-27 novolog [facility] [place] 4db05 fa7-c [facility] 15:37:00 15:37:00 refilled r Specialties 073-4f75- 9 l 90X0 8x4-66uxo8 Mi nn 34bce6 2014-11-27 2014-11-27 novolog [facility] [place] 2f9a1 9b0-8 [facility] 15:37:00 15:37:00 refilled r Specialties 9v9-34sb- b l 90X0 ea6-153040 Mi nn 2922ec 2014-11-27 2014-11-27 [facility] [place] 7b9f7 a7e-9 [facility] 15:37:00 15:37:00 refilled r Specialties 14d-4092- b l 90X0 fc4-18bac0 Mi nn 26bcc7 2014-11-27 2014-11-27 [facility] [place] ca3ae 5b1-a [facility] 15:37:00 15:37:00 refilled r Specialties 5ac-41bc- 9 l 90X0 f8q-24ca2z Mi nn 21f39b 2014-11-27 2014-11-27 [facility] [place] 08e93 b5f-4 [facility] 15:37:00 15:37:00 refilled r Specialties 990-46ee- 8 l 90X0 x49-6292j7 Mi nn deb25c 2014-11-27 2014-11-27 [facility]olog [facility] [place] 1721a 956-2 [facility] 15:37:00 15:37:00 refilled r Specialties 0aa-4d87- 8 l 90X0 230-5d29aa Mi nn 7f93e0 2014-11-27 2014-11-27 [facility]olog [place] [place] [address] f7e-f [facility] 15:37:00 15:37:00 refilled r Specialties 587-4d6e- a l 90X0 v8r-p66671 Mi nn 50b48d 2014-11-27 2014-11-27 novolog [facility] [place] d6bfd 109-2 [facility] 15:37:00 15:37:00 refilled r Specialties v56-5819- 9 l 90X0 64e-634e52 Mi nn aabba2 2014-11-27 2014-11-27 novolog [facility] [place] 64e72 7b7-b [facility] 15:37:00 15:37:00 refilled r Specialties 55a-497a- b l 90X0 6fd-209f2d Mi nn 682e0d 2014-11-27 2014-11-27 novolog [place] [place] d2c64 50c-f [facility] 15:37:00 15:37:00 refilled r Specialties 27b-4d88- a l 90X0 402-51d8d8 Mi nn f9ebfb 2014-11-27 2014-11-27 novolog [facility] [place] 8cc53 2c3-8 [facility] 15:37:00 15:37:00 refilled r Specialties p96-6td4- a l 90X0 8a2-057hh3 Mi nn 2p235e 2014-11-16 2014-11-16 2WK F/U [place] [place] 634a8 86d-1 [facility] 16:45:00 16:45:00 r Specialties 99f-43af-9 l 74d-9y8474 Mi nn 02e6b7 2014-11-16 2014-11-16 2WK F/U [place] [address] fa2-2 [facility] 16:45:00 16:45:00 r Specialties 70e-471a-8 l 0w2-511x26 Mi nn 07922t 2014-11-16 2014-11-16 2WK F/U [facility] [place] a4d60 b16-9 [facility] 16:45:00 16:45:00 r Specialties 124-4cfc-a l 7n2-438y51 Mi nn a8b4b9 2014-11-16 2014-11-16 2WK F/U [place] [place] e128d cf6-a [facility] 16:45:00 16:45:00 r Specialties 41d-4baf-8 l k3f-qt18tk Mi nn 4n0295 2014-11-16 2014-11-16 2WK F/U [facility] [place] 8ef1c 694-e Mem[facility] 16:45:00 16:45:00 r Specialties 939-41ca-8 l 558-21f4cf Mi nn ce0a3f 2014-11-16 2014-11-16 2WK F/U [facility] [place] 3f353 334-d [facility] 16:45:00 16:45:00 r Specialties 5bf-4334-a l p83-n3othh Mi nn ydq605 2014-11-16 2014-11-16 2WK F/U [facility] [place] c40a8 fb6-b [facility] 16:45:00 16:45:00 r Specialties 696-42ae-b l 07a-357d71 Mi nn e2fed2 2014-11-16 2014-11-16 2WK F/U [place] [place] 98fcc 044-9 Mem[facility] 16:45:00 16:45:00 r Specialties n63-40t1-k l 68b-41373h Mi nn b658bb 2014-11-16 2014-11-16 2WK F/U [place] [place] f8510 490-e [facility] 16:45:00 16:45:00 r Specialties w7v-14b2-9 l p47-a9z2u8 Mi nn e8db55 2014-11-16 2014-11-16 2WK F/U [facility] [place] dd601 457-6 [facility] 16:45:00 16:45:00 r Specialties 25f-440b-b l 7j4-541q68 Mi nn 896b5d 2014-11-16 2014-11-16 2WK F/U [facility] [place] b9c1a 7d0-e Mem[facility] 16:45:00 16:45:00 r Specialties s76-5h12-0 l 103-44j783 Mi nn c5ef66 2014-11-16 2014-11-16 2WK F/U [facility] [place] dcd5d 834-1 [facility] 16:45:00 16:45:00 r Specialties 8v6-9948-j l 6r2-7ds2b5 Mi nn 6dc8c3 2014-11-16 2014-11-16 2WK F/U [facility] [place] 940f0 946-c [facility] 16:45:00 16:45:00 r Specialties 4w8-1236-8 l 5z7-w4572s Mi nn 9up601 2014-11-16 2014-11-16 2WK F/U [facility] [place] 2f531 47f-5 [facility] 16:45:00 16:45:00 r Specialties 887-440a-a l ef4-67h254 Mi nn 67ed79 2014-11-16 2014-11-16 2WK F/U [facility] [place] 6f36e 271-7 [facility] 16:45:00 16:45:00 r Specialties g8c-69yj-5 l 54d-v1f014 Mi nn 94c588 2014-11-16 2014-11-16 2WK F/U [facility] [place] 1fcab 3d8-3 Mem[facility] 16:45:00 16:45:00 r Specialties p59-6412-y l l2l-424752 Mi nn daca93 2014-11-16 2014-11-16 2WK F/U [facility] [place] b5db9 1ce-5 [facility] 16:45:00 16:45:00 r Specialties 068-47ae-8 l 146-20d97f Mi nn 69a2f0 2014-11-16 2014-11-16 2WK F/U [facility] [place] 6f92a 133-5 [facility] 16:45:00 16:45:00 r Specialties 1s4-878z-8 l fe6-397a72 Mi nn 991da6 2014-11-16 2014-11-16 2WK F/U [facility] [place] b994e 8d5-2 [facility] 16:45:00 16:45:00 r Specialties 83b-41e9-b l 3n3-65014m Mi nn 7eff7c 2014-11-16 2014-11-16 2WK F/U [facility] [place] 03a02 98b-8 [facility] 16:45:00 16:45:00 r Specialties u08-5198-2 l 387-29ca72 Mi nn 0d4fb1 2014-11-16 2014-11-16 2WK F/U [facility] [place] f6f0e 830-b [facility] 16:45:00 16:45:00 r Specialties dbc-49f6-8 l s05-53f663 Mi nn 2d8ba0 2014-11-16 2014-11-16 2WK F/U [facility] [place] aab95 2f3-6 [facility] 16:45:00 16:45:00 r Specialties 7h6-2906-s l 389-4350ee Mi nn a0390s 2014-11-16 2014-11-16 2WK F/U [facility] [place] cc1af 68f-0 [facility] 16:45:00 16:45:00 r Specialties ae8-4ae1-9 l ac7-c242c0 Mi nn d3fcf1 2014-11-16 2014-11-16 2WK F/U [facility] [place] a4d60 b16-9 [facility] 16:45:00 16:45:00 r Specialties 124-4cfc-a l 7m5-886j88 Mi nn a8b4b9 2014-11-16 2014-11-16 2WK F/U [facility] [place] 634a8 86d-1 [facility] 16:45:00 16:45:00 r Specialties 99f-43af-9 l 74d-7b5303 Mi nn 02e6b7 2014-11-16 2014-11-16 2WK F/U [facility] [place] 98fcc 044-9 [facility] 16:45:00 16:45:00 r Specialties h06-05u4-m l 68b-09051x Mi nn b658bb 2014-11-16 2014-11-16 2WK F/U [facility] [place] c40a8 fb6-b [facility] 16:45:00 16:45:00 r Specialties 696-42ae-b l 07a-357d71 Mi nn e2fed2 2014-11-16 2014-11-16 2WK F/U [place] 165[address] fa2-2 [facility] 16:45:00 16:45:00 r Specialties 70e-471a-8 l 2t0-313f14 [facility] nn 89255b 2014-11-16 2014-11-16 2WK F/U [place] f8510 490-e [facility] 16:45:00 16:45:00 r Specialties y8x-29k8-6 l q38-p0i4f7 Im nn e8db55 2014-11-16 2014-11-16 2WK F/U [facility] [place] 8ef1c 694-e [facility] 16:45:00 16:45:00 r Specialties 939-41ca-8 l 558-21f4cf Mi nn ce0a3f 2014-11-16 2014-11-16 2WK F/U [facility] [place] e128d cf6-a [facility] 16:45:00 16:45:00 r Specialties 41d-4baf-8 l f6m-oq22be Mi nn 2o7574 2014-11-16 2014-11-16 2WK F/U [facility] [place] 3f353 334-d [facility] 16:45:00 16:45:00 r Specialties 5bf-4334-a l h75-l4djja [facility] nn tkz498 2014-11-16 2014-11-16 2WK F/U [place] [place] dd601 457-6 [facility] 16:45:00 16:45:00 r Specialties 25f-440b-b l 0r6-978z44 [facility] nn 896b5d 2014-11-16 2014-11-16 2WK F/U [place] [place] 1fcab 3d8-3 [facility] 16:45:00 16:45:00 r Specialties n72-2615-y l t7s-699558 [facility] nn daca93 2014-11-16 2014-11-16 2WK F/U [place] [place] 940f0 946-c [facility] 16:45:00 16:45:00 r Specialties 7r3-4001-3 l 7i9-z8496x [facility] 0sf980 2014-11-16 2014-11-16 2WK F/U [place] [place] 6f92a 133-5 [facility] 16:45:00 16:45:00 r Specialties 1s4-973o-2 l fe6-397a72 [facility] nn 991da6 2014-11-16 2014-11-16 2WK F/U [place] [place] 2f531 47f-5 [facility] 16:45:00 16:45:00 r Specialties 887-440a-a l ef4-91l566 [facility] nn 67ed79 2014-11-16 2014-11-16 2WK F/U [facility] [place] dcd5d 834-1 [facility] 16:45:00 16:45:00 r Specialties 0x2-5041-o l 8k3-1ue8n1 [facility] nn 6dc8c3 2014-11-16 2014-11-16 2WK F/U [facility] [place] 6f36e 271-7 [facility] 16:45:00 16:45:00 r Specialties m2t-96oq-5 l 54d-q7j883 Mi nn 13a392 2014-11-16 2014-11-16 2WK F/U [facility] [place] f6f0e 830-b [facility] 16:45:00 16:45:00 r Specialties dbc-49f6-8 l m17-67y025 Mi nn 2d8ba0 2014-11-16 2014-11-16 2WK F/U [facility] [place] b994e 8d5-2 [facility] 16:45:00 16:45:00 r Specialties 83b-41e9-b l 5i3-26833c Mi nn 7eff7c 2014-11-16 2014-11-16 2WK F/U [facility] [place] b5db9 1ce-5 [facility] 16:45:00 16:45:00 r Specialties 068-47ae-8 l 146-20d97f Mi nn 69a2f0 2014-11-16 2014-11-16 2WK F/U [facility] [place] b9c1a 7d0-e [facility] 16:45:00 16:45:00 r Specialties o22-1i71-0 l 103-47k486 Mi nn c5ef66 2014-11-16 2014-11-16 2WK F/U [facility] [place] 03a02 98b-8 [facility] 16:45:00 16:45:00 r Specialties e39-8075-1 l 387-29ca72 Mi nn 0d4fb1 2014-11-16 2014-11-16 2WK F/U [facility] [place] cc1af 68f-0 [facility] 16:45:00 16:45:00 r Specialties ae8-4ae1-9 l ac7-c242c0 Mi nn d3fcf1 2014-11-16 2014-11-16 2WK F/U [facility] [place] aab95 2f3-6 [facility] 16:45:00 16:45:00 r Specialties 0a0-6908-s l 389-4350ee Mi nn r5306l 2014-11-16 2014-11-16 2WK F/U [facility] [place] 6cc03 5fc-a [facility] 15:45:00 15:45:00 r Specialties bf7-4361-9 l 3fb-7320ce Mi nn 6757d4 2014-11-16 2014-11-16 2WK F/U [facility] [place] ce543 42a-1 [facility] 15:45:00 15:45:00 r Specialties 865-406a-b l 0ef-6892af Mi nn yt8281 2014-11-16 2014-11-16 2WK F/U [facility] [place] a64dd 3a2-c [facility] 15:45:00 15:45:00 r Specialties 2ca-4571-9 l 2p1-6080rc Mi nn 0b5de0 2014-11-16 2014-11-16 2WK F/U [facility] [place] 78b3d 1f8-0 [facility] 15:45:00 15:45:00 r Specialties cc0-4b81-a l 943-6cdcf9 Mi nn 4e64fb 2014-11-16 2014-11-16 2WK F/U [facility] [place] c8493 4e3-8 [facility] 15:45:00 15:45:00 r Specialties 278-4271-a l bf8-x5h419 Mi nn 4c7baa 2014-11-16 2014-11-16 2WK F/U [facility] [place] 6de32 b3d-8 [facility] 15:45:00 15:45:00 r Specialties 031-4ab7-8 l u3o-3794yi Mi nn bbf07c 2014-11-16 2014-11-16 2WK F/U [facility] [place] 69b2b 43c-e [facility] 15:45:00 15:45:00 r Specialties 60c-4159-b l 9ec-2d89a5 Mi nn 3d1743 2014-11-16 2014-11-16 2WK F/U [facility] [place] e95b0 495-c [facility] 15:45:00 15:45:00 r Specialties 2p3-860m-6 l 052-95bf1a Mi nn 665657 9170-09-25 2014-11-16 2WK F/U [facility] [place] 6539a d42-4 [facility] 15:45:00 15:45:00 r Specialties 3g0-8srq-0 l 311-c00c96 Mi nn 4c0fe2 2014-11-16 2014-11-16 2WK F/U [facility] [place] a0d78 6de-2 [facility] 15:45:00 15:45:00 r Specialties db1-4e26-a l w63-620uy0 Mi nn 162bec 2014-11-16 2014-11-16 2WK F/U [facility] [place] 388e1 bf2-b [facility] 15:45:00 15:45:00 r Specialties 17e-4467-8 l y13-5h4110 [facility] nn 3193ee 2014-11-16 2014-11-16 2WK F/U [place] [place] f3bd9 37b-7 [facility] 15:45:00 15:45:00 r Specialties 980-4bf4-8 l 2g6-161w2q [facility] nn ig9359 2014-11-16 2014-11-16 2WK F/U [place] [place] bb310 aad-4 [facility] 15:45:00 15:45:00 r Specialties 11f-4c13-a l 3f4-6co150 [facility] nn 671427 5238-09-25 2014-11-16 2WK F/U [place] [place] 19da8 82f-f [facility] 15:45:00 15:45:00 r Specialties 117-4003-8 l 9r8-u91r27 [facility] nn f23f3e 2014-11-16 2014-11-16 2WK F/U [facility] [place] c7b15 18e-f [facility] 15:45:00 15:45:00 r Specialties 2cf-467c-b l 243-d69b7e [facility] nn 81aeca 2014-11-16 2014-11-16 2WK F/U [place] [place] 2250e 268-e [facility] 15:45:00 15:45:00 r Specialties 551-40a9-b l m03-22d607 [facility] nn 662387 4968-09-25 2014-11-16 2WK F/U [facility] [place] 6c5f9 ce6-9 [facility] 15:45:00 15:45:00 r Specialties 59c-447f-b l cc2-39f9a8 [facility] nn 3b08ef 2014-11-16 2014-11-16 2WK F/U [facility] [place] e0e45 765-4 [facility] 15:45:00 15:45:00 r Specialties 981-42b3-a l 8b0-e82ab1 Mi nn 4ea69f 2014-11-16 2014-11-16 2WK F/U [facility] [place] 8f064 18b-8 [facility] 15:45:00 15:45:00 r Specialties 991-4c35-b l 330-ebc47c Mi nn 8131f1 2014-11-16 2014-11-16 2WK F/U [facility] [place] a9d1f 16f-3 [facility] 15:45:00 15:45:00 r Specialties l6j-8a48-6 l 5aa-b898d6 Mi nn 56g679 2014-11-16 2014-11-16 2WK F/U [facility] [place] ce543 42a-1 [facility] 15:45:00 15:45:00 r Specialties 865-406a-b l 0ef-6892af Mi nn zw0444 2014-11-16 2014-11-16 2WK F/U [facility] [place] 78b3d 1f8-0 [facility] 15:45:00 15:45:00 r Specialties cc0-4b81-a l 943-6cdcf9 Mi nn 4e64fb 2014-11-16 2014-11-16 2WK F/U [facility] [place] a64dd 3a2-c [facility] 15:45:00 15:45:00 r Specialties 2ca-4571-9 l 1c4-7644vw Mi nn 0b5de0 2014-11-16 2014-11-16 2WK F/U [facility] [place] 6cc03 5fc-a [facility] 15:45:00 15:45:00 r Specialties bf7-4361-9 l 3fb-7320ce Mi nn 6757d4 2014-11-16 2014-11-16 2WK F/U [facility] [place] 69b2b 43c-e [facility] 15:45:00 15:45:00 r Specialties 60c-4159-b l 9ec-2d89a5 Mi nn 6i8117 2014-11-16 2014-11-16 2WK F/U [facility] [place] 388e1 bf2-b [facility] 15:45:00 15:45:00 r Specialties 17e-4467-8 l o97-4q0522 Mi nn 3193ee 2014-11-16 2014-11-16 2WK F/U [facility] [place] a0d78 6de-2 [facility] 15:45:00 15:45:00 r Specialties db1-4e26-a l j20-428lz9 Mi nn 162bec 2014-11-16 2014-11-16 2WK F/U [facility] [place] c8493 4e3-8 [facility] 15:45:00 15:45:00 r Specialties 278-4271-a l bf8-s2r720 Mi nn 4c7baa 2014-11-16 2014-11-16 2WK F/U [facility] [place] 6de32 b3d-8 [facility] 15:45:00 15:45:00 r Specialties 031-4ab7-8 l o7p-3847zo [facility] nn bbf07c 2014-11-16 2014-11-16 2WK F/U [place] [place] f3bd9 37b-7 [facility] 15:45:00 15:45:00 r Specialties 980-4bf4-8 l 2m6-431i4i Mi nn jq0742 2014-11-16 2014-11-16 2WK F/U [place] [place] 6539a d42-4 [facility] 15:45:00 15:45:00 r Specialties 5g6-5axf-8 l 311-c00c96 [facility] nn 4c0fe2 2014-11-16 2014-11-16 2WK F/U [place] [place] 2250e 268-e [facility] 15:45:00 15:45:00 r Specialties 551-40a9-b l d39-78a451 Mi nn 097117 5432-09-25 2014-11-16 2WK F/U [facility] [place] 6c5f9 ce6-9 [facility] 15:45:00 15:45:00 r Specialties 59c-447f-b l cc2-39f9a8 Mi nn 3b08ef 2014-11-16 2014-11-16 2WK F/U [facility] [place] e0e45 765-4 [facility] 15:45:00 15:45:00 r Specialties 981-42b3-a l 4g7-l27ar8 Mi nn 4ea69f 2014-11-16 2014-11-16 2WK F/U [facility] [place] bb310 aad-4 [facility] 15:45:00 15:45:00 r Specialties 11f-4c13-a l 5z4-7sx860 Mi nn 358588 7850-09-25 2014-11-16 2WK F/U [facility] [place] e95b0 495-c [facility] 15:45:00 15:45:00 r Specialties 5p3-531i-9 l 052-95bf1a Mi nn 692607 1388-09-25 2014-11-16 2WK F/U [facility] [place] 8f064 18b-8 [facility] 15:45:00 15:45:00 r Specialties 991-4c35-b l 330-ebc47c Mi nn 8131f1 2014-11-16 2014-11-16 2WK F/U [facility] [place] 19da8 82f-f [facility] 15:45:00 15:45:00 r Specialties 117-4003-8 l 8s1-p90v33 Mi nn f23f3e 2014-11-16 2014-11-16 2WK F/U [facility] [place] c7b15 18e-f [facility] 15:45:00 15:45:00 r Specialties 2cf-467c-b l 243-d69b7e Mi nn 81aeca 2014-11-16 2014-11-16 2WK F/U [facility] [place] a9d1f 16f-3 [facility] 15:45:00 15:45:00 r Specialties k7d-3g11-7 l 5aa-b898d6 Mi nn [id number] 2014-10-30 2014-10-30 Walk-in nullFl[facility] [place] 8702f db6-f Memoria 19:45:00 19:45:00 r Specialties t3u-13ws-t l v62-y46trw Mi nn [id number] 3883-09-08 2014-10-30 Walk-in [place]Fl[facility] [place] c7f7e cba-f [facility] 19:45:00 19:45:00 r Specialties tai-43ed-b l [id number]-84704n [facility] aleja [id number] 2014-10-30 2014-10-30 Walk-in [place] bb03b 2c6-9 Memoria 19:45:00 19:45:00 r Specialties 646-4ae6-b l h34-2v4230 [facility] [id number] 2014-10-30 2014-10-30 Walk-in [place]Fl[place] b7385 611-9 Memoria 19:45:00 19:45:00 r Specialties x27-934r-h l 191-g1856m [facility] nn [id number] 2014-10-30 2014-10-30 Walk-in [place] 59da5 fee-d Memoria 19:45:00 19:45:00 r Specialties 52f-4073-9 l z10-91939a [facility] nn [id number] 2014-10-30 2014-10-30 Walk-in [place] 01e57 ae2-a Memoria 19:45:00 19:45:00 r Specialties 62f-457b-9 l [id number]-544271 [facility] f4e36d 2014-10-30 2014-10-30 Walk-in [place]Fl[place] 721f9 4d0-b Memoria 19:45:00 19:45:00 r Specialties 32f-4458-8 l 941-867ebe [facility] nn 1acea6 2014-10-30 2014-10-30 Walk-in [place] 2a2c3 24e-5 Memoria 19:45:00 19:45:00 r Specialties 104-4a3c-9 l c7d-5i9cax [facility] aleja [id number] 2014-10-30 2014-10-30 Walk-in [place] 7212a e3e-9 Memoria 19:45:00 19:45:00 r Specialties 923-4c97-b l 484-e2f24e [facility] aleja 4192ec 2014-10-30 2014-10-30 Walk-in [place] ec854 648-4 Memoria 19:45:00 19:45:00 r Specialties m6k-6nk4-v l 0cc-0ef53a Mi nn af01af 2014-10-30 2014-10-30 Walk-in [place] 6ba42 bda-d Memoria 19:45:00 19:45:00 r Specialties 446-4163-a l [id number] Mi nn [id number] 2014-10-30 2014-10-30 Walk-in [facility] [place] 186ea 57b-5 Memoria 19:45:00 19:45:00 r Specialties 519-4d5a-b l 07c-e1cec3 Mi nn [id number] 2014-10-30 2014-10-30 Walk-in [facility] [place] 9ff80 f14-b Memoria 19:45:00 19:45:00 r Specialties 3p7-8651-v l 23e-730dcc Mi nn 987d0d 2014-10-30 2014-10-30 Walk-in [place] b3833 cb0-8 Memoria 19:45:00 19:45:00 r Specialties afe-4c96-9 l 389-69cdaa Mi nn d62f7a 2014-10-30 2014-10-30 Walk-in [place] a5d6e c7d-d Memoria 19:45:00 19:45:00 r Specialties o0a-3u5f-6 l 158-81769i Mi nn [id number] 2014-10-30 2014-10-30 Walk-in [place] [place] 8b071 1fe-8 Memoria 19:45:00 19:45:00 r Specialties 9a8-6u13-8 l r5d-r9o2qy Mi nn ngf651 2014-10-30 2014-10-30 Walk-in [place] bc7ac 04d-3 Memoria 19:45:00 19:45:00 r Specialties s47-3n63-d l l83-6y1j4l Mi nn [id number] 5310-09-08 2014-10-30 Walk-in [facility] [place] 7cbf0 abc-6 Memoria 19:45:00 19:45:00 r Specialties a07-7o61-4 l 37a-fa5aa0 Mi nn 7w315h 2014-10-30 2014-10-30 Walk-in [facility] [place] 37a60 3f6-a Memoria 19:45:00 19:45:00 r Specialties 4x8-207d-3 l r0i-1zq0sg Mi nn [id number] 2014-10-30 2014-10-30 Walk-in [place] [place] 6191a 7d7-c Memoria 19:45:00 19:45:00 r Specialties q17-3x70-d l 4d3-t63dt7 Mi nn gw396n 2014-10-30 2014-10-30 Walk-in [facility] [place] 6a3c8 fb2-7 Memoria 19:45:00 19:45:00 r Specialties 9x4-89i0-x l 04a-bb7c69 Mi nn 232d22 2014-10-30 2014-10-30 Walk-in [facility] [place] c7d0d 054-1 Memoria 19:45:00 19:45:00 r Specialties 1w1-7c1x-y l 1y4-c930i9 Mi nn 20ccf8 2014-10-30 2014-10-30 Walk-in [place] [place] 828b7 427-9 Memoria 19:45:00 19:45:00 r Specialties amanuel-4eec-9 l 986-9bfa1e Mi nn [id number] 2014-10-30 2014-10-30 Walk-in [place] [place] bb03b 2c6-9 Memoria 19:45:00 19:45:00 r Specialties 646-4ae6-b l d32-8x4895 [facility] nn [id number] 2014-10-30 2014-10-30 Walk-in [place] 8702f db6-f Memoria 19:45:00 19:45:00 r Specialties y9v-51yi-h l j11-z45fcw Mi nn [id number] 5701-09-08 2014-10-30 Walk-in [facility] [place] 2a2c3 24e-5 Memoria 19:45:00 19:45:00 r Specialties 104-4a3c-9 l o9q-2u4wie Mi nn [id number] 2014-10-30 2014-10-30 Walk-in [place]Fl[place] 721f9 4d0-b Memoria 19:45:00 19:45:00 r Specialties 32f-4458-8 l 941-867ebe Mi nn 1acea6 2014-10-30 2014-10-30 Walk-in [facility]Fl[facility] [place] c7f7e cba-f Memoria 19:45:00 19:45:00 r Specialties tai-43ed-b l 64b-14855w Mi nn [id number] 2014-10-30 2014-10-30 Walk-in [place]Fl[place] 7212a e3e-9 Memoria 19:45:00 19:45:00 r Specialties 923-4c97-b l 484-e2f24e Mi masterson 4192ec 2014-10-30 2014-10-30 Walk-in [place] [place] 59da5 fee-d Memoria 19:45:00 19:45:00 r Specialties 52f-4073-9 l h68-01749a Mi nn [id number] 2014-10-30 2014-10-30 Walk-in [place] b7385 611-9 Memoria 19:45:00 19:45:00 r Specialties i32-181n-i l 191-y3737j Mi nn 85cd28 2014-10-30 2014-10-30 Walk-in [place] 01e57 ae2-a Memoria 19:45:00 19:45:00 r Specialties 62f-457b-9 l 39d-465991 Mi nn f4e36d 2014-10-30 2014-10-30 Walk-in [facility] [place] ec854 648-4 Memoria 19:45:00 19:45:00 r Specialties c3i-0nu9-o l 0cc-0ef53a Mi nn af01af 2014-10-30 2014-10-30 Walk-in [place] [place] 8b071 1fe-8 Memoria 19:45:00 19:45:00 r Specialties 1a1-1a87-7 l e0q-i9i7uy Mi nn [id number] 2014-10-30 2014-10-30 Walk-in [place] [place] 9ff80 f14-b Memoria 19:45:00 19:45:00 r Specialties 4k5-2428-i l 23e-730dcc Mi nn 987d0d 2014-10-30 2014-10-30 Walk-in [facility] [place] 7cbf0 abc-6 Memoria 19:45:00 19:45:00 r Specialties t65-5j15-5 l 37a-fa5aa0 Mi nn [id number] 2014-10-30 2014-10-30 Walk-in [place] b3833 cb0-8 Memoria 19:45:00 19:45:00 r Specialties afe-4c96-9 l 389-69cdaa Mi nn d62f7a 2014-10-30 2014-10-30 Walk-in [place]Fl[facility] [place] 186ea 57b-5 Memoria 19:45:00 19:45:00 r Specialties 519-4d5a-b l 07c-e1cec3 Mi nn [id number] 2014-10-30 2014-10-30 Walk-in [facility] [place] a5d6e c7d-d Memoria 19:45:00 19:45:00 r Specialties w0v-7r5n-9 l 158-25835o Mi nn [id number] 2014-10-30 2014-10-30 Walk-in [facility] [place] 6a3c8 fb2-7 [facility] 19:45:00 19:45:00 r Specialties 3c3-48n0-l l 04a-bb7c69 Mi nn 232d22 2014-10-30 2014-10-30 Walk-in [facility] [place] 37a60 3f6-a [facility] 19:45:00 19:45:00 r Specialties 4f0-956n-0 l p4q-0fv1gd Mi nn d81600 2014-10-30 2014-10-30 Walk-in [facility] [place] bc7ac 04d-3 [facility] 19:45:00 19:45:00 r Specialties a62-1h84-y l g08-6q1o7p Mi nn 578722 3204-09-08 2014-10-30 Walk-in [facility] [place] 6ba42 bda-d [facility] 19:45:00 19:45:00 r Specialties 446-4163-a l m56-321774 Mi nn b59fb8 2014-10-30 2014-10-30 Walk-in [facility] [place] 6191a 7d7-c [facility] 19:45:00 19:45:00 r Specialties a62-4b20-u l 8p3-b89lg2 Mi nn ac926l 2014-10-30 2014-10-30 Walk-in [facility] [place] 828b7 427-9 [facility] 19:45:00 19:45:00 r Specialties amanuel-4eec-9 l 986-9bfa1e Mi nn 01i034 2014-10-30 2014-10-30 Walk-in [facility] [place] c7d0d 054-1 [facility] 19:45:00 19:45:00 r Specialties 6y4-1y7e-o l 5y2-m042i5 Mi nn 20ccf8 2014-10-30 2014-10-30 Walk[facility]in [facility] [place] d4f2f 647-b [facility] 18:45:00 18:45:00 r Specialties 93b-4cff-b l c07-25r4u7 Mi nn 2x845u 2014-10-30 2014-10-30 Walk-in [facility] [place] 5fa30 f04-3 [facility] 18:45:00 18:45:00 r Specialties 6be-42a4-b l 191-sjz603 Mi nn 68t810 2014-10-30 2014-10-30 Walk-in [facility] [place] 17a1e 3a7-c [facility] 18:45:00 18:45:00 r Specialties 0s5-3899-7 l n18-203854 Im nn 3h1102 2014-10-30 2014-10-30 Walk-in [facility] [place] ee8a8 77e-d [facility] 18:45:00 18:45:00 r Specialties 659-48ce-9 l 09b-8e18ca Mi nn 7z160g 2014-10-30 2014-10-30 Walk-in [facility] [place] e4f77 e24-6 [facility] 18:45:00 18:45:00 r Specialties 8t6-278f-3 l f4h-2106yb Mi nn 9o2548 2014-10-30 2014-10-30 Walk-in [facility] [place] ff43d 72d-0 [facility] 18:45:00 18:45:00 r Specialties d32-79sk-6 l 18e-c12ba0 Mi nn 4c29a5 2014-10-30 2014-10-30 Walk-in [facility] [place] f02e3 3ae-e [facility] 18:45:00 18:45:00 r Specialties n3s-2050-l l 04a-4265c3 Mi nn 0b6dc3 2014-10-30 2014-10-30 Walk-in [facility] [place] 6a399 4a7-5 [facility] 18:45:00 18:45:00 r Specialties 8z7-8l3w-4 l 73a-7f7648 Mi nn 2d7c94 2014-10-30 2014-10-30 Walk[facility]in [facility] [place] 4ad85 6d8-5 [facility] 18:45:00 18:45:00 r Specialties y76-6g19-i l u9g-92v979 Mi nn 455d3c 2014-10-30 2014-10-30 Walk-in [facility] [place] 84349 1e6-0 [facility] 18:45:00 18:45:00 r Specialties 319-430b-b l 968-701734 Mi nn 178e1f 2014-10-30 2014-10-30 Walk-in [facility] [place] 76642 364-a [facility] 18:45:00 18:45:00 r Specialties m7l-5462-e l 6j7-ofl00w Mi nn 17fc12 2014-10-30 2014-10-30 Walk-in [facility] [place] fa479 9a2-4 [facility] 18:45:00 18:45:00 r Specialties 196-4e5d-9 l 2eb-d622cb Mi nn 0w508z 2014-10-30 2014-10-30 Walk-in [facility] [place] 48d4e 102-9 [facility] 18:45:00 18:45:00 r Specialties 69a-4499-9 l 726-f416d1 Mi nn 4j977w 2014-10-30 2014-10-30 Walk-in [facility] [place] da5c2 c32-e [facility] 18:45:00 18:45:00 r Specialties 4k3-0257-g l ce5-06c422 Mi nn 77a3a7 2014-10-30 2014-10-30 Walk-in [facility] [place] ef446 b96-6 [facility] 18:45:00 18:45:00 r Specialties r86-8uz9-7 l bc5-9a1485 Mi nn 079c66 2014-10-30 2014-10-30 Walk-in [facility] [place] 07eef d4d-c [facility] 18:45:00 18:45:00 r Specialties fde-43ea-a l 2g0-1vb3tx Mi nn 929062 4207-09-08 2014-10-30 Walk-in [facility] [place] f47c6 2c1-9 [facility] 18:45:00 18:45:00 r Specialties 681-4b08-8 l 5f3-n735uk Mi nn c35b08 2014-10-30 2014-10-30 Walk-in [facility] [place] 2dcd1 d4a-e [facility] 18:45:00 18:45:00 r Specialties 8ff-422b-b l 949-a212d5 Mi nn 27w857 2014-10-30 2014-10-30 Walk-in [facility] [place] a7d9b bcf-5 [facility] 18:45:00 18:45:00 r Specialties 021-4d95-b l 329-049c13 Mi nn a1e78e 2014-10-30 2014-10-30 Walk-in [facility] [place] 9a9f0 e0e-7 [facility] 18:45:00 18:45:00 r Specialties n01-865o-t l 77e-2ceb3c [facility] nn d6t438 2014-10-30 2014-10-30 Walk-in [facility] [place] 129f7 1d5-6 [facility] 18:45:00 18:45:00 r Specialties g38-6b72-i l 3ac-a41849 [facility] nn 68c90a 2014-10-30 2014-10-30 Walk-in [facility] [place] d4f2f 647-b [facility] 18:45:00 18:45:00 r Specialties 93b-4cff-b l e80-72x9t9 Mi nn 2c937i 2014-10-30 2014-10-30 Walk-in [facility] [place] 17a1e 3a7-c [facility] 18:45:00 18:45:00 r Specialties 8d2-3914-5 l g32-514977 Mi nn 9l0997 2014-10-30 2014-10-30 Walk-in [facility] [place] e4f77 e24-6 [facility] 18:45:00 18:45:00 r Specialties 9p4-162f-0 l f1a-7983gm Mi nn 8l1079 2014-10-30 2014-10-30 Walk-in [facility] [place] ee8a8 77e-d [facility] 18:45:00 18:45:00 r Specialties 659-48ce-9 l 09b-8e18ca Mi nn 6i044m 2014-10-30 2014-10-30 Walk-in [facility] [place] 5fa30 f04-3 [facility] 18:45:00 18:45:00 r Specialties 6be-42a4-b l 191-jhv853 Mi nn 06m383 2014-10-30 2014-10-30 Walk-in [facility] [place] 6a399 4a7-5 [facility] 18:45:00 18:45:00 r Specialties 0r2-5b6k-0 l 73a-4s2796 Mi nn 2d7c94 2014-10-30 2014-10-30 Walk-in [facility] [place] fa479 9a2-4 [facility] 18:45:00 18:45:00 r Specialties 196-4e5d-9 l 2eb-d622cb Mi nn 8h626s 2014-10-30 2014-10-30 Walk-in [facility] [place] 37991 364-a [facility] 18:45:00 18:45:00 r Specialties f0r-6861-q l 8s8-ktl24u Mi nn 17fc12 2014-10-30 2014-10-30 Walk-in [facility] [place] ff43d 72d-0 [facility] 18:45:00 18:45:00 r Specialties r75-55wt-5 l 18e-c12ba0 Mi nn 4c29a5 2014-10-30 2014-10-30 Walk-in [facility] [place] f02e3 3ae-e [facility] 18:45:00 18:45:00 r Specialties q5b-8654-q l 04a-4265c3 Mi nn 0b6dc3 2014-10-30 2014-10-30 Walk-in [facility] [place] 48d4e 102-9 [facility] 18:45:00 18:45:00 r Specialties 69a-4499-9 l 726-f416d1 Im nn 1y371w 2014-10-30 2014-10-30 Walk-in [facility] [place] [address] 1e6-0 [facility] 18:45:00 18:45:00 r Specialties 319-430b-b l 968-679979 Mi nn 178e1f 2014-10-30 2014-10-30 Walk-in [facility] [place] f47c6 2c1-9 [facility] 18:45:00 18:45:00 r Specialties 681-4b08-8 l 5u8-n250bx Mi nn c35b08 2014-10-30 2014-10-30 Walk-in [facility] [place] 2dcd1 d4a-e [facility] 18:45:00 18:45:00 r Specialties 8ff-422b-b l 949-a212d5 Mi nn 04o881 2014-10-30 2014-10-30 Walk-in [facility] [place] a7d9b bcf-5 [facility] 18:45:00 18:45:00 r Specialties 021-4d95-b l 329-049c13 Mi nn a1e78e 2014-10-30 2014-10-30 Walk-in [facility] [place] da5c2 c32-e [facility] 18:45:00 18:45:00 r Specialties 7w1-2207-y l ce5-58f087 Mi nn 77a3a7 2014-10-30 2014-10-30 Walk-in [facility] [place] 4ad85 6d8-5 [facility] 18:45:00 18:45:00 r Specialties r90-1c62-v l f4l-69y439 Mi nn 455d3c 2014-10-30 2014-10-30 Walk-in [facility] [place] 9a9f0 e0e-7 [facility] 18:45:00 18:45:00 r Specialties d53-547o-t l 77e-2ceb3c [facility] nn n1t318 2014-10-30 2014-10-30 Walk-in [facility] [place] ef446 b96-6 [facility] 18:45:00 18:45:00 r Specialties t31-3bm3-4 l bc5-2o9720 [facility] nn 079c66 2014-10-30 2014-10-30 Walk-in [facility] [place] 07eef d4d-c [facility] 18:45:00 18:45:00 r Specialties fde-43ea-a l 3v1-4zj3xu [facility] nn 945321 7570-09-08 2014-10-30 Walk-in [facility] [place] 129f7 1d5-6 [facility] 18:45:00 18:45:00 r Specialties c45-9l17-b l 3ac-y38389 [facility] nn 68c90a 2014-10-30 2014-10-30 [facility]patient [facility] [place] 3688 99 eClinic 13:45:00 13:45:00 [facility] 2014-10-25 2014-10-25 RX Refill [facility] [place] 353 d94lr-e [facility] 17:14:00 17:14:00 (Allergy r Specialties 2af-4a73- a l Medication 797-b26c04 [facility] ) 748ab5 2014-10-25 2014-10-25 RX Refill [facility] [place] c3f 9778d-2 [facility] 17:14:00 17:14:00 (Allergy r Specialties 5k4-1542- b l Medication c6a-6dq351 [facility] ) 53a5e0 2014-10-25 2014-10-25 RX Refill [facility] [place] 076 1cy6d-1 [facility] 17:14:00 17:14:00 (Allergy r Specialties 997-40dc- 9 l Medication k5r-t27k94 [facility] ) 842670 6483-09-03 2014-10-25 RX Refill [facility] [place] 094 bef77-b [facility] 17:14:00 17:14:00 (Allergy r Specialties be3-47ec- b l Medication 04e-g0254w [facility] ) dfa9ef 2014-10-25 2014-10-25 RX Refill [facility] [place] 209 go543-o [facility] 17:14:00 17:14:00 (Allergy r Specialties 6i0-1v12- a l Medication 574-q79094 [facility] ) db85e6 2014-10-25 2014-10-25 RX Refill [facility] [place] 3e0 c9111-c [facility] 17:14:00 17:14:00 (Allergy r Specialties 27e-42ef- a l Medication d23-8p3w85 [facility] ) ddb69e 2014-10-25 2014-10-25 RX Refill [facility] [place] 807 6yd2y-9 [facility] 17:14:00 17:14:00 (Allergy r Specialties t5u-8inj- 8 l Medication 580-5671d8 [facility] ) 18df1e 2014-10-25 2014-10-25 RX Refill [facility] [place] 7fc 8206e-0 [facility] 17:14:00 17:14:00 (Allergy r Specialties 78e-4092- 9 l Medication p2e-745cd0 [facility] ) 967409 3135-09-03 2014-10-25 RX Refill [facility] [place] 7a2 49m11-1 [facility] 17:14:00 17:14:00 (Allergy r Specialties 480-445c- 9 l Medication 0n1-074a84 [facility] ) 250766 0536-09-03 2014-10-25 RX Refill null[facility] [place] fda 59452-e [facility] 17:14:00 17:14:00 (Allergy r Specialties 122-4204- a l Medication 8be-w75417 [facility] ) 696f38 2014-10-25 2014-10-25 RX Refill [facility] [place] 5f8 2m690-0 [facility] 17:14:00 17:14:00 (Allergy r Specialties 7b0-75e4- 9 l Medication u77-8i44s9 [facility] ) 4844d2 2014-10-25 2014-10-25 RX Refill [facility] [place] 0e6 5190c-7 [facility] 17:14:00 17:14:00 (Allergy r Specialties 755-4bf4- b l Medication 440-605abc [facility] ) 2128ec 2014-10-25 2014-10-25 RX Refill [facility] [place] 0f1 a0g94-3 [facility] 17:14:00 17:14:00 (Allergy r Specialties h1x-168y- 9 l Medication 3e8-0tse78 [facility] ) e095b9 2014-10-25 2014-10-25 RX Refill [facility] [place] dbc 8256c-2 [facility] 17:14:00 17:14:00 (Allergy r Specialties h92-7397- b l Medication y2k-75tmir [facility] ) tm670n 2014-10-25 2014-10-25 RX Refill [facility] [place] 610 s08mn-4 [facility] 17:14:00 17:14:00 (Allergy r Specialties p90-6s93- 8 l Medication 578-4bo949 [facility] ) 8fc7bc 2014-10-25 2014-10-25 RX Refill [facility] [place] bb3 z9y70-6 [facility] 17:14:00 17:14:00 (Allergy r Specialties x78-10mr- 8 l Medication b23-5l3b9z [facility] ) 4k9313 2014-10-25 2014-10-25 RX Refill [facility] [place] 938 61557-f [facility] 17:14:00 17:14:00 (Allergy r Specialties 824-42a7- b l Medication 6i8-345018 [facility] ) 2r5509 2014-10-25 2014-10-25 RX Refill [facility] [place] 39f 7o976-3 [facility] 17:14:00 17:14:00 (Allergy r Specialties 1y7-1090- 9 l Medication 080-2cefce [facility] ) 104ce8 2014-10-25 2014-10-25 RX Refill [facility] [place] 987 bg35d-4 [facility] 17:14:00 17:14:00 (Allergy r Specialties 025-4cfe- a l Medication 379-11087z [facility] ) 125fdb 2014-10-25 2014-10-25 RX Refill [facility] [place] 7ac 92537-s [facility] 17:14:00 17:14:00 (Allergy r Specialties 8e1-83h0- 9 l Medication l76-z20r3z [facility] ) 532926 0109-09-03 2014-10-25 RX Refill [facility] [place] e36 nd793-9 [facility] 17:14:00 17:14:00 (Allergy r Specialties 4cf-4495- b l Medication n6u-24qwxk [facility] ) 476502 9525-09-03 2014-10-25 RX Refill [facility] [place] c6f 5bb19-5 [facility] 17:14:00 17:14:00 (Allergy r Specialties 796-4d9e- 8 l Medication 632-oww158 [facility] ) b783ea 2014-10-25 2014-10-25 RX Refill [facility] [place] 9a7 dba15-e [facility] 17:14:00 17:14:00 (Allergy r Specialties 65a-4ecc- 8 l Medication 4fd-k7r522 [facility] ) vi003r 2014-10-25 2014-10-25 RX Refill [facility] [place] 076 6zr9q-1 [facility] 17:14:00 17:14:00 (Allergy r Specialties 997-40dc- 9 l Medication u8n-w23v10 [facility] ) 623685 2839-09-03 2014-10-25 RX Refill [facility] [place] 353 m75np-n [facility] 17:14:00 17:14:00 (Allergy r Specialties 2af-4a73- a l Medication 797-b26c04 [facility] ) 748ab5 2014-10-25 2014-10-25 RX Refill [facility] [place] 7fc 8206e-0 [facility]oria 17:14:00 17:14:00 (Allergy r Specialties 78e-4092- 9 l Medication t2i-133ne4 [facility] ) 670083 3014-09-03 2014-10-25 RX Refill [facility] [place] 807 2yq8w-8 [facility] 17:14:00 17:14:00 (Allergy r Specialties a7z-6mrj- 8 l Medication 580-5671d8 [facility] ) 18df1e 2014-10-25 2014-10-25 RX Refill [facility] [place] c3f 9778d-2 [facility] 17:14:00 17:14:00 (Allergy r Specialties 3j9-5247- b l Medication y0e-5jj062 [facility] ) 53a5e0 2014-10-25 2014-10-25 RX Refill [facility] [place] 7a2 21m05-8 [facility] 17:14:00 17:14:00 (Allergy r Specialties 480-445c- 9 l Medication 9l5-048y08 [facility] ) 645267 3139-09-03 2014-10-25 RX Refill [facility] [place] 209 se338-k [facility] 17:14:00 17:14:00 (Allergy r Specialties 3h1-9q14- a l Medication 574-f12222 [facility] ) db85e6 2014-10-25 2014-10-25 RX Refill [facility] [place] 094 bef77-b [facility] 17:14:00 17:14:00 (Allergy r Specialties be3-47ec- b l Medication 04e-b8556d [facility] ) dfa9ef 2014-10-25 2014-10-25 RX Refill [facility] [place] 3e0 d1402-u [facility] 17:14:00 17:14:00 (Allergy r Specialties 27e-42ef- a l Medication j14-1l0i31 [facility] ) ddb69e 2014-10-25 2014-10-25 RX Refill [facility] [place] fda 15949-o [facility] 17:14:00 17:14:00 (Allergy r Specialties 122-4204- a l Medication 8be-m21000 [facility] ) 696f38 2014-10-25 2014-10-25 RX Refill [facility] [place] bb3 u1z54-0 [facility] 17:14:00 17:14:00 (Allergy r Specialties r34-14vh- 8 l Medication n53-0x3a5k [facility] ) 6f3581 2014-10-25 2014-10-25 RX Refill [facility] [place] 0f1 o3f86-4 [facility] 17:14:00 17:14:00 (Allergy r Specialties x1j-359r- 9 l Medication 9k1-5zkl01 [facility] ) e095b9 2014-10-25 2014-10-25 RX Refill [facility] [place] 39f 9w246-2 [facility] 17:14:00 17:14:00 (Allergy r Specialties 9e0-7973- 9 l Medication 080-2cefce [facility] ) 104ce8 2014-10-25 2014-10-25 RX Refill [facility] [place] dbc 8256c-2 [facility] 17:14:00 17:14:00 (Allergy r Specialties x89-1569- b l Medication g9i-62tsvu [facility] ) wb314w 2014-10-25 2014-10-25 RX Refill [facility] [place] 0e6 5190c-7 [facility] 17:14:00 17:14:00 (Allergy r Specialties 755-4bf4- b l Medication 440-605abc [facility] ) 2128ec 2014-10-25 2014-10-25 RX Refill [facility] [place] 610 p91dh-2 [facility] 17:14:00 17:14:00 (Allergy r Specialties i38-2v78- 8 l Medication 578-2ed274 [facility] ) 8fc7bc 2014-10-25 2014-10-25 RX Refill [facility] [place] e36 ee081-1 [facility] 17:14:00 17:14:00 (Allergy r Specialties 4cf-4495- b l Medication m1d-96rrnw [facility] ) 498574 8537-09-03 2014-10-25 RX Refill [facility] [place] 987 ts69r-7 [facility] 17:14:00 17:14:00 (Allergy r Specialties 025-4cfe- a l Medication [id number] [facility] ) 125fdb 2014-10-25 2014-10-25 RX Refill [facility] [place] 938 56810-y [facility] 17:14:00 17:14:00 (Allergy r Specialties 824-42a7- b l Medication [id number] [facility] ) 1e2303 2014-10-25 2014-10-25 RX Refill [facility] [place] 5f8 6y042-2 [facility] 17:14:00 17:14:00 (Allergy r Specialties 1o4-03u1- 9 l Medication p98-9q77k1 [facility] ) 4844d2 2014-10-25 2014-10-25 RX Refill [facility] [place] 7ac 35248-d [facility] 17:14:00 17:14:00 (Allergy r Specialties 5v9-92g6- 9 l Medication s11-o12u2v [facility] ) 645678 2860-09-03 2014-10-25 RX Refill [facility] [place] 9a7 dba15-e [facility] 17:14:00 17:14:00 (Allergy r Specialties 65a-4ecc- 8 l Medication 4fd-a8h587 [facility] ) sx478a 2014-10-25 2014-10-25 RX Refill [facility] [place] c6f 0cu66-7 [facility] 17:14:00 17:14:00 (Allergy r Specialties 796-4d9e- 8 l Medication 632-vqv555 [facility] ) b783ea 2014-10-25 2014-10-25 RX Refill [facility] [place] d9d zg04d-6 [facility] 16:14:00 16:14:00 (Allergy r Specialties 3r0-2i87- b l Medication 863-67a794 [facility] ) 230507 0537-09-03 2014-10-25 RX Refill [facility] [place] 919 i2l25-a [facility] 16:14:00 16:14:00 (Allergy r Specialties g72-6m10- 9 l Medication 0w5-2yv9y0 [facility] ) 9cfaf3 2014-10-25 2014-10-25 RX Refill [facility] [place] 873 6118a-9 [facility] 16:14:00 16:14:00 (Allergy r Specialties 913-4757- a l Medication 06a-7deede [facility] ) 554ba1 2014-10-25 2014-10-25 RX Refill [facility] [place] 22d p4p45-2 [facility] 16:14:00 16:14:00 (Allergy r Specialties d06-923u- b l Medication 635-44135c [facility] ) 474c94 2014-10-25 2014-10-25 RX Refill [facility] [place] 60b 2z491-6 [facility] 16:14:00 16:14:00 (Allergy r Specialties 700-457b- a l Medication 55e-b691c0 [facility] ) f8b97b 2014-10-25 2014-10-25 RX Refill [facility] [place] af9 dea47-7 [facility] 16:14:00 16:14:00 (Allergy r Specialties bbe-4c50- 9 l Medication 5m7-508951 [facility] ) cd68a7 2014-10-25 2014-10-25 RX Refill [facility] [place] a83 74i89-5 [facility] 16:14:00 16:14:00 (Allergy r Specialties 8b9-5hot- b l Medication 19f-d447b6 [facility] ) 337f53 2014-10-25 2014-10-25 RX Refill [facility] [place] 1b3 94p9h-k [facility] 16:14:00 16:14:00 (Allergy r Specialties 075-4ba1- 8 l Medication 20d-qk850w [facility] ) 591aac 2014-10-25 2014-10-25 RX Refill [facility] [place] correction 1i4p2-3 [facility] 16:14:00 16:14:00 (Allergy r Specialties 75b-408f- 9 l Medication 369-4fbcf2 [facility] ) 8697ed 2014-10-25 2014-10-25 RX Refill [facility] [place] 080 c0tc4-2 [facility] 16:14:00 16:14:00 (Allergy r Specialties 8b7-6a59- 8 l Medication 924-7p9464 [facility] ) 32bdfb 2014-10-25 2014-10-25 RX Refill [facility] [place] fe7 8a7he-t [facility] 16:14:00 16:14:00 (Allergy r Specialties 89d-47ba- b l Medication 92c-3e68a3 [facility] ) 840767 6077-09-03 2014-10-25 RX Refill [facility] [place] 73f i71m2-0 [facility] 16:14:00 16:14:00 (Allergy r Specialties 9d0-61e0- 8 l Medication fa4-k9h757 [facility] ) 5aeb6b 2014-10-25 2014-10-25 RX Refill [facility] [place] f5d 7k197-f [facility] 16:14:00 16:14:00 (Allergy r Specialties 5y0-3291- 8 l Medication eeb-51e79d [facility] ) 7a4f3d 2014-10-25 2014-10-25 RX Refill [facility] [place] 5e6 l6uo7-4 [facility] 16:14:00 16:14:00 (Allergy r Specialties j47-335f- 8 l Medication n1r-5a47sv [facility] ) 361c9b 2014-10-25 2014-10-25 RX Refill [facility] [place] e76 bfb78-0 [facility] 16:14:00 16:14:00 (Allergy r Specialties 8k0-0u0e- 8 l Medication 20e-8ffa46 [facility] ) 4e4c20 2014-10-25 2014-10-25 RX Refill [facility] [place] ca0 8659e-8 [facility] 16:14:00 16:14:00 (Allergy r Specialties bf3-4ee6- 9 l Medication h1y-3d4riv [facility] ) e02e5c 2014-10-25 2014-10-25 RX Refill [facility] [place] 29b e6582-5 [facility] 16:14:00 16:14:00 (Allergy r Specialties 9ea-4421- 9 l Medication v75-j4nm76 [facility] ) 300a79 2014-10-25 2014-10-25 RX Refill [facility] [place] donnie 21xq2-1 [facility] 16:14:00 16:14:00 (Allergy r Specialties 8r4-2731- b l Medication 2s5-qx57u0 [facility] ) 5861bb 2014-10-25 2014-10-25 RX Refill [facility] [place] 902 z05g1-0 [facility] 16:14:00 16:14:00 (Allergy r Specialties c7u-8967- b l Medication 88d-582d5c [facility] ) 888234 7949-09-03 2014-10-25 RX Refill [facility] [place] c73 13k24-0 [facility] 16:14:00 16:14:00 (Allergy r Specialties 002-435f- 9 l Medication 39e-kcx572 [facility] ) 2cefc4 2014-10-25 2014-10-25 RX Refill [facility] [place] 70b a63b8-r [facility] 16:14:00 16:14:00 (Allergy r Specialties x6h-92v0- b l Medication 84f-z68787 [facility] ) bb62c0 2014-10-25 2014-10-25 RX Refill [facility] [place] d9d en80f-0 [facility] 16:14:00 16:14:00 (Allergy r Specialties 8a7-0k78- b l Medication 863-91y624 [facility] ) 154875 6925-09-03 2014-10-25 RX Refill [facility] [place] 873 6118a-9 [facility] 16:14:00 16:14:00 (Allergy r Specialties 913-4757- a l Medication 06a-7deede [facility] ) 554ba1 2014-10-25 2014-10-25 RX Refill [facility] [place] 60b 7s161-5 [facility] 16:14:00 16:14:00 (Allergy r Specialties 700-457b- a l Medication 55e-b691c0 [facility] ) f8b97b 2014-10-25 2014-10-25 RX Refill [facility] [place] 22d l3z46-1 [facility] 16:14:00 16:14:00 (Allergy r Specialties n46-649l- b l Medication [id number] [facility] ) [id number] 2014-10-25 2014-10-25 RX Refill nullFlavo [place] 919 [id number] [facility] 16:14:00 16:14:00 (Allergy r Specialties [id number]- 9 l Medication [id number] [facility] ) [id number] 2014-10-25 2014-10-25 RX Refill nullFlavo [place] 1b3 [id number]-j [facility] 16:14:00 16:14:00 (Allergy r Specialties 075-4ba1- 8 l Medication [id number]-[id number] [facility] ) [id number] 2014-10-25 2014-10-25 RX Refill nullFlavo [place] 73f [id number] [facility] 16:14:00 16:14:00 (Allergy r Specialties 4r5-65n4- 8 l Medication [id number] [facility] ) [id number] 2014-10-25 2014-10-25 RX Refill nullFlavo [place] fe7 [id number]-g [facility] 16:14:00 16:14:00 (Allergy r Specialties 89d-47ba- b l Medication [id number] [facility] ) [id number] 2014-10-25 RX Refill nullFlavo [place] af9 dea47-7 [facility] 16:14:00 16:14:00 (Allergy r Specialties bbe-4c50- 9 l Medication [id number] [facility] ) [id number] 2014-10-25 2014-10-25 RX Refill nullFlavo [place] a83 14e87-8 [facility] 16:14:00 16:14:00 (Allergy r Specialties 2d5-8gxv- b l Medication [id number] [facility] ) [id number] 2014-10-25 2014-10-25 RX Refill nullFlavo [place] f5d [id number]-v [facility] 16:14:00 16:14:00 (Allergy r Specialties 9p2-6314- 8 l Medication [id number] [facility] ) [id number] 2014-10-25 2014-10-25 RX Refill nullFlavo [place] 080 [id number] [facility] 16:14:00 16:14:00 (Allergy r Specialties 8c2-5a51- 8 l Medication [id number] [facility] ) [id number] 2014-10-25 2014-10-25 RX Refill nullFlavo [place] 29b [id number] [facility] 16:14:00 16:14:00 (Allergy r Specialties 9ea-4421- 9 l Medication [id number] [facility] ) [id number] 2014-10-25 2014-10-25 RX Refill nullFlavo [place] donnie 63pp4-4 [facility] 16:14:00 16:14:00 (Allergy r Specialties 4s5-5270- b l Medication [id number] [facility] ) [id number] 2014-10-25 2014-10-25 RX Refill nullFlavo [place] 902 [id number] [facility] 16:14:00 16:14:00 (Allergy r Specialties b3w-7009- b l Medication 88d-[id number] [facility] ) [id number] 3738-09-03 2014-10-25 RX Refill nullFlavo [place] 5e6 s9tp5-4 [facility] 16:14:00 16:14:00 (Allergy r Specialties k28-373t- 8 l Medication [id number] [facility] ) [id number] 2014-10-25 2014-10-25 RX Refill nullFlavo [place] correction [id number] [facility] 16:14:00 16:14:00 (Allergy r Specialties 75b-408f- 9 l Medication [id number] [facility] ) [id number] 2014-10-25 2014-10-25 RX Refill nullFlavo [place] c73 77z12-9 [facility] 16:14:00 16:14:00 (Allergy r Specialties 002-435f- 9 l Medication [id number]-cub588 [facility] ) [id number] 2014-10-25 2014-10-25 RX Refill nullFlavo [place] e76 bfb78-0 [facility] 16:14:00 16:14:00 (Allergy r Specialties 0f9-0b5u- 8 l Medication 20e-8ffa46 [facility] ) [id number] 2014-10-25 2014-10-25 RX Refill nullFlavo [place] ca0 8659e-8 [facility] 16:14:00 16:14:00 (Allergy r Specialties bf3-4ee6- 9 l Medication [id number] [facility] ) [id number] 2014-10-25 2014-10-25 RX Refill nullFlavo [place] 70b [id number]-f [facility] 16:14:00 16:14:00 (Allergy r Specialties n0g-98y4- b l Medication [id number] [facility] ) [id number] 2014-10-15 2014-10-15 Medication nullFlavo [place] cf [id number] [facility] 20:08:00 20:08:00 clarificat r Specialties baf-4e2 2-9 l ion [id number] Mi nn question [id number] 2014-10-15 2014-10-15 Medication nullFlavo [place] ef [id number] [facility] 20:08:00 20:08:00 clarificat r Specialties [id number] 7-a l ion [id number] Mi nn question [id number] 2014-10-15 2014-10-15 Medication nullFlavo [place] e8 [id number] [facility] 20:08:00 20:08:00 [facility] 6ab-475 d-9 l ion 091-cp9911 Mi nn question 05568p 2014-10-15 2014-10-15 Medication [place] [place] c4 9qdd5s-6 [facility] 20:08:00 20:08:00 [facility] r Specialties 2df-48e 1-a l ion 059-ee08e6 Mi nn question 4669d0 2014-10-15 2014-10-15 Medication nullFl[facility] [place] 27 v22243-3 [facility] 20:08:00 20:08:00 clarificat r Specialties 270-456 1-9 l ion q06-345c66 Mi nn question c9f32b 2014-10-15 2014-10-15 Medication null[facility] [place] bd 1fdbee-0 [facility] 20:08:00 20:08:00 [facility] Specialties 7p1-8o7 6-b l ion 217-615021 Mi nn question 2c7dc5 2014-10-15 2014-10-15 Medication null[facility] [place] 2e 691309-0 [facility] 20:08:00 20:08:00 clar[facility] r Specialties j9n-260 b-b l ion 9y1-aeg6r8 Mi nn question 518730 9326-08-24 2014-10-15 Medication null[facility] [place] d8 21zk0w-d [facility] 20:08:00 20:08:00 clarificat r Specialties p1m-8r5 b-a l ion fdd-ari916 Mi nn question u7269e 2014-10-15 2014-10-15 Medication null[facility] [place] e7 8x232u-1 [facility] 20:08:00 20:08:00 [facility] Specialties db3-4e6 f-9 l ion u3v-svj63r Mi nn question 616023 9081-08-24 2014-10-15 Medication null[facility] [place] 5b 2zz5z9-2 [facility] 20:08:00 20:08:00 clarificat r Specialties afe-411 c-8 l ion 669-5oh981 Mi nn question 07701y 2014-10-15 2014-10-15 Medication null[facility] [place] d2 cfccdd-a [facility] 20:08:00 20:08:00 clar[facility]at r Specialties 90b-4f6 8-8 l ion 728-8547ee Mi nn question 74fab6 2014-10-15 2014-10-15 Medication null[facility] [place] eb gq434d-3 [facility] 20:08:00 20:08:00 [facility] Specialties feb-486 7-b l ion ad5-v1129p Mi nn question 825a01 2014-10-15 2014-10-15 Medication nullFl[facility] [place] 88 2k739e-7 [facility] 20:08:00 20:08:00 clarificat r Specialties 307-4e1 e-a l ion d7d-184ztc Mi nn question e00e24 2014-10-15 2014-10-15 Medication null[facility] [place] e4 d50lgr-9 [facility] 20:08:00 20:08:00 clar[facility]at r Specialties 64f-435 e-9 l ion 9u6-2qjuz3 Mi nn question e6aa5d 2014-10-15 2014-10-15 Medication null[facility] [place] d2 p55f09-1 [facility] 20:08:00 20:08:00 clarificat r Specialties 084-426 3-a l ion 3r1-u5gm93 Mi nn question 77f4a0 2014-10-15 2014-10-15 Medication null[facility] [place] 7f j4k1a4-d [facility] 20:08:00 20:08:00 clarificat r Specialties e69-40d 2-a l ion 86f-ea3f4e Mi nn question ef77fe 2014-10-15 2014-10-15 Medication null[facility] [place] 7a 68412t-5 [facility] 20:08:00 20:08:00 clarificat r Specialties 5ef-48f 2-b l ion 9a3-845151 Mi nn question 462b8d 2014-10-15 2014-10-15 Medication null[facility] [place] dd q61x4a-3 [facility] 20:08:00 20:08:00 clarificat r Specialties 902-4d4 e-a l ion 882-a602ca Mi nn question 2e61c9 2014-10-15 2014-10-15 Medication nullFl[facility] [place] 71 07103e-u [facility] 20:08:00 20:08:00 clar[facility]at r Specialties 53a-413 2-b l ion 1be-5e87ea Mi nn question 507f2b 2014-10-15 2014-10-15 Medication nullFl[facility] [place] ea 71433k-q [facility] 20:08:00 20:08:00 clarificat r Specialties 9ba-47a b-b l ion h57-0q1z8w Mi nn question d478b6 2014-10-15 2014-10-15 Medication null[facility] [place] fa 79u022-d [facility] 20:08:00 20:08:00 clarificat r Specialties 1db-493 0-9 l ion h72-jw5439 Mi nn question 903712 0078-08-24 2014-10-15 Medication nullFl[facility] [place] 13 d1u0wx-s [facility] 20:08:00 20:08:00 clarificat r Specialties g7m-661 f-a l ion cc8-17ecfe Mi nn question cd9d1a 2014-10-15 2014-10-15 Medication null[facility] [place] ae v40273-3 [facility] 20:08:00 20:08:00 clarificat r Specialties 9be-41f 3-a l ion u23-3yt1or Mi nn question a1cbc1 2014-10-15 2014-10-15 Medication null[facility] [place] e8 k628k5-r [facility] 20:08:00 20:08:00 clarificat r Specialties 6ab-475 d-9 l ion 091-sc1401 Mi nn question 76788j 2014-10-15 2014-10-15 Medication null[facility] [place] cf 4i8v4y-8 [facility] 20:08:00 20:08:00 clarificat r Specialties baf-4e2 2-9 l ion 922-q55607 Mi nn question 6q1892 2014-10-15 2014-10-15 Medication null[facility] [place] d8 32no7u-z [facility] 20:08:00 20:08:00 clarificat r Specialties t5t-0g6 b-a l ion fdd-rkg501 Mi nn question x8641q 2014-10-15 2014-10-15 Medication nullFl[facility] [place] 2e 730864-0 [facility] 20:08:00 20:08:00 clarificat r Specialties n3x-940 b-b l ion 9x6-aul2y9 Mi nn question 341925 1571-08-24 2014-10-15 Medication nullFl[facility] [place] ef 248p18-7 [facility] 20:08:00 20:08:00 clarificat r Specialties fb3-480 7-a l ion p13-31hei9 Mi nn question 3794ce 2014-10-15 2014-10-15 Medication nullFl[facility] [place] e7 2r005t-2 [facility] 20:08:00 20:08:00 [facility]ific[facility] Specialties db3-4e6 f-9 l ion j8l-zvf22q Mi nn question 309830 6566-08-24 2014-10-15 Medication nullFl[facility] [place] 27 f81169-2 [facility] 20:08:00 20:08:00 clarificat r Specialties 270-456 1-9 l ion p41-622s40 Mi nn question c9f32b 2014-10-15 2014-10-15 Medication nullFl[facility] [place] c4 4zjq4d-0 [facility] 20:08:00 20:08:00 clarificat r Specialties 2df-48e 1-a l ion 059-ee08e6 Mi nn question 4669d0 2014-10-15 2014-10-15 Medication null[facility] [place] bd 1fdbee-0 [facility] 20:08:00 20:08:00 clarificat r Specialties 5l0-7e7 6-b l ion 217-440431 Mi nn question 2c7dc5 2014-10-15 2014-10-15 Medication null[facility] [place] 5b 7hy7s9-8 [facility] 20:08:00 20:08:00 clarificat r Specialties afe-411 c-8 l ion 669-1tc693 Mi nn question 85030x 2014-10-15 2014-10-15 Medication null[facility] [place] 7f h8u6w5-d [facility] 20:08:00 20:08:00 clarificat r Specialties e69-40d 2-a l ion 86f-ea3f4e Mi nn question ef77fe 2014-10-15 2014-10-15 Medication nullFl[facility] [place] 88 2z322l-8 [facility] 20:08:00 20:08:00 clarificat r Specialties 307-4e1 e-a l ion e0c-712jyh Mi nn question e00e24 2014-10-15 2014-10-15 Medication null[facility] [place] dd b29j6i-5 [facility] 20:08:00 20:08:00 clarificat r Specialties 902-4d4 e-a l ion 882-a602ca Mi nn question 2e61c9 2014-10-15 2014-10-15 Medication nullFl[facility] [place] e4 k00aff-6 [facility] 20:08:00 20:08:00 clarificat r Specialties 64f-435 e-9 l ion 9v6-2kfoc9 Mi nn question e6aa5d 2014-10-15 2014-10-15 Medication nullFl[facility] [place] eb qk934c-6 [facility] 20:08:00 20:08:00 clarificat r Specialties feb-486 7-b l ion ad5-b0316o Mi nn question 825a01 2014-10-15 2014-10-15 Medication nullFl[facility] [place] d2 a18m64-2 [facility] 20:08:00 20:08:00 clarificat r Specialties 084-426 3-a l ion 9c5-p2eo95 Mi nn question 77f4a0 2014-10-15 2014-10-15 Medication nullFl[facility] [place] fa 60k315-j [facility] 20:08:00 20:08:00 clarificat r Specialties 1db-493 0-9 l ion n31-ea9788 Mi nn question 312969 9814-08-24 2014-10-15 Medication nullFl[facility] [place] 71 58549y-p [facility] 20:08:00 20:08:00 clarificat r Specialties 53a-413 2-b l ion 1be-5e87ea Mi nn question 507f2b 2014-10-15 2014-10-15 Medication nullFl[facility] [place] 7a 33160k-9 [facility] 20:08:00 20:08:00 clarificat r Specialties 5ef-48f 2-b l ion 7n9-570882 Mi nn question 462b8d 2014-10-15 2014-10-15 Medication nullFl[facility] [place] d2 cfccdd-a [facility] 20:08:00 20:08:00 clarificat r Specialties 90b-4f6 8-8 l ion 728-8547ee Mi nn question 74fab6 2014-10-15 2014-10-15 Medication nullFl[facility] [place] ea 22815n-e [facility] 20:08:00 20:08:00 clarificat r Specialties 9ba-47a b-b l ion a41-2w0u8x Mi nn question d478b6 2014-10-15 2014-10-15 Medication nullFl[facility] [place] ae x28417-8 [facility] 20:08:00 20:08:00 clarificat r Specialties 9be-41f 3-a l ion b51-2dm5iz Mi nn question a1cbc1 2014-10-15 2014-10-15 Medication null[facility] [place] 13 k2c8oj-r [facility] 20:08:00 20:08:00 clarificat r Specialties y2p-575 f-a l ion cc8-17ecfe Mi nn question cd9d1a 2014-10-15 2014-10-15 Medication null[facility] [place] 0c 097201-w [facility] 19:08:00 19:08:00 clarificat r Specialties 5be-439 f-8 l ion d81-234z99 Mi nn question 768355 5164-08-24 2014-10-15 Medication nullFl[facility] [place] dc v41595-3 [facility] 19:08:00 19:08:00 clarificat r Specialties 374-4e5 b-b l ion 43b-c0d17d Mi nn question 31b38c 2014-10-15 2014-10-15 Medication null[facility] [place] 29 5zh2ur-c [facility] 19:08:00 19:08:00 clarificat r Specialties 64b-41c 5-a l ion 2s0-l9m5kp Mi nn question 2bbd87 2014-10-15 2014-10-15 Medication nullFl[facility] [place] 22 86t0gm-q [facility] 19:08:00 19:08:00 clarificat r Specialties be3-4bd d-8 l ion 9x2-985tt4 Mi nn question 2e30ef 2014-10-15 2014-10-15 Medication null[facility] [place] 5a 9o1r29-i [facility] 19:08:00 19:08:00 clarificat r Specialties 241-41e b-a l ion bc8-39g702 Mi nn question 4fk815 2014-10-15 2014-10-15 Medication nullFl[facility] [place] 86 u2664h-i [facility] 19:08:00 19:08:00 clarificat r Specialties 905-49b 9-b l ion 2o8-0770g3 Mi nn question 10b894 2014-10-15 2014-10-15 Medication nullFl[facility] [place] ea zm9n0w-1 [facility] 19:08:00 19:08:00 clarificat r Specialties 62d-4af 1-a l ion 3p8-596bf3 Mi nn question 858ae6 2014-10-15 2014-10-15 Medication nullFl[facility] [place] a2 0b7mpm-3 [facility] 19:08:00 19:08:00 clarificat r Specialties 08e-485 5-8 l ion e58-409o71 Mi nn question 4a5dff 2014-10-15 2014-10-15 Medication nullFl[facility] [place] 2b 6hr6z9-w [facility] 19:08:00 19:08:00 clarificat r Specialties dcf-461 e-a l ion 4ce-2ef73c Mi nn question p87048 2014-10-15 2014-10-15 Medication nullFl[facility] [place] 71 1t96lm-h [facility] 19:08:00 19:08:00 clarificat r Specialties 847-46b e-a l ion ed9-eb24ee Mi nn question 3b8cfb 2014-10-15 2014-10-15 Medication nullFl[facility] [place] ca s8060z-e [facility] 19:08:00 19:08:00 clarificat r Specialties 9q9-49b 9-a l ion 7e8-xx9hie Mi nn question 177f62 2014-10-15 2014-10-15 Medication nullFl[facility] [place] 19 v2991y-2 [facility] 19:08:00 19:08:00 clarificat r Specialties v6s-37e 7-9 l ion v33-k486ja Mi nn question 7bde3d 2014-10-15 2014-10-15 Medication nullFl[facility] [place] 2d 3676ca-5 [facility] 19:08:00 19:08:00 clarificat r Specialties 757-495 7-a l ion 5h1-883l1e Mi nn question 309616 5126-08-24 2014-10-15 Medication nullFl[facility] [place] a8 21l188-b [facility] 19:08:00 19:08:00 clarificat r Specialties cf1-4bd 1-b l ion z03-98h393 Mi nn question mb5379 2014-10-15 2014-10-15 Medication nullFlavo [place] 0c 1yp748-9 [facility] 19:08:00 19:08:00 clarificat r Specialties b59-4e8 6-8 l ion a68-v5k8ed Mi nn question x70600 2014-10-15 2014-10-15 Medication nullFl[facility] [place] 05 153d46-9 [facility] 19:08:00 19:08:00 clarificat r Specialties ae0-43e 4-a l ion 8g7-o3z3n4 Mi nn question 3b4a44 2014-10-15 2014-10-15 Medication nullFl[facility] [place] a6 1e7334-z [facility] 19:08:00 19:08:00 clarificat r Specialties 486-4a2 a-b l ion 73c-015afc Mi nn question 4fd723 2014-10-15 2014-10-15 Medication nullFl[facility] [place] 13 4443x1-4 [facility] 19:08:00 19:08:00 clarificat r Specialties 680-437 7-a l ion 2l7-852151 Mi nn question 320a7b 2014-10-15 2014-10-15 Medication nullFlavo [place] cc 64993b-1 [facility] 19:08:00 19:08:00 clarificat r Specialties 6fe-4bf 2-a l ion 095-2a5784 Mi nn question om5893 2014-10-15 2014-10-15 Medication nullFl[facility] [place] 02 1lni44-4 [facility] 19:08:00 19:08:00 clarificat r Specialties 89f-4dc 2-a l ion 052-b7b78f Mi nn question 6dce99 2014-10-15 2014-10-15 Medication nullFl[facility] [place] 30 my7ib9-l [facility] 19:08:00 19:08:00 clarificat r Specialties a16-4fe a-a l ion da6-238afe Mi nn question gyh963 2014-10-15 2014-10-15 Medication nullFlavo [place] 0c 800917-w [facility] 19:08:00 19:08:00 clarificat r Specialties 5be-439 f-8 l ion c05-269t10 Mi nn question 520608 9186-08-24 2014-10-15 Medication nullFlavo [place] 29 3ms5xo-k [facility] 19:08:00 19:08:00 clarificat r Specialties 64b-41c 5-a l ion 9q8-e1h9ll Mi nn question 2bbd87 2014-10-15 2014-10-15 Medication nullFl[facility] [place] 5a 0z5b24-f [facility] 19:08:00 19:08:00 clarificat r Specialties 241-41e b-a l ion bc8-06s614 Mi nn question 2ok220 2014-10-15 2014-10-15 Medication nullFlavo [place] 22 70c4ir-f [facility] 19:08:00 19:08:00 clarificat r Specialties be3-4bd d-8 l ion 5b0-422zi7 Mi nn question 2e30ef 2014-10-15 2014-10-15 Medication nullFlavo [place] dc x42296-9 [facility] 19:08:00 19:08:00 clarificat r Specialties 374-4e5 b-b l ion 43b-c0d17d Mi nn question 31b38c 2014-10-15 2014-10-15 Medication nullFlavo [place] a2 5n6fne-6 [facility] 19:08:00 19:08:00 clarificat r Specialties 08e-485 5-8 l ion n91-914v55 Mi nn question 4a5dff 2014-10-15 2014-10-15 Medication nullFl[facility] [place] 19 q7440r-7 [facility] 19:08:00 19:08:00 clarificat r Specialties o1d-74l 7-9 l ion e17-e437mq Mi nn question 7bde3d 2014-10-15 2014-10-15 Medication nullFl[facility] [place] ca c0291q-u [facility] 19:08:00 19:08:00 clarificat r Specialties 5b3-47d 9-a l ion 9f2-wj4dqw Mi nn question 177f62 2014-10-15 2014-10-15 Medication nullFl[facility] [place] 86 r5508e-g [facility] 19:08:00 19:08:00 clarificat r Specialties 905-49b 9-b l ion 5q3-2208o1 Mi nn question 82i260 2014-10-15 2014-10-15 Medication nullFlavo [place] ea zp4m0x-8 [facility] 19:08:00 19:08:00 clarificat r Specialties 62d-4af 1-a l ion 6x5-841kf5 Mi nn question 858ae6 2014-10-15 2014-10-15 Medication nullFlavo [place] 2d 3676ca-5 [facility] 19:08:00 19:08:00 clarificat r Specialties 757-495 7-a l ion 2g5-368x8q Mi nn question 651488 5018-08-24 2014-10-15 Medication nullFlavo [place] 71 8c82nw-s [facility] 19:08:00 19:08:00 clarificat r Specialties 847-46b e-a l ion ed9-eb24ee Mi nn question 3b8cfb 2014-10-15 2014-10-15 Medication nullFl[facility] [place] a6 6l0136-m [facility] 19:08:00 19:08:00 clarificat r Specialties 486-4a2 a-b l ion 73c-015afc Mi nn question 7ll601 2014-10-15 2014-10-15 Medication nullFlavo [place] 13 8301i1-5 [facility] 19:08:00 19:08:00 clarificat r Specialties 680-437 7-a l ion 0x8-528224 Mi nn question 320a7b 2014-10-15 2014-10-15 Medication nullFlavo [place] cc 38069s-7 [facility] 19:08:00 19:08:00 clarificat r Specialties 6fe-4bf 2-a l ion 095-5q6527 Mi nn question rf4816 2014-10-15 2014-10-15 Medication nullFl[facility] [place] a8 96e448-c [facility] 19:08:00 19:08:00 clarificat r Specialties cf1-4bd 1-b l ion y87-22g251 Mi nn question ob9019 2014-10-15 2014-10-15 Medication nullFlavo [place] 2b 9qv0m2-q [facility] 19:08:00 19:08:00 clarificat r Specialties dcf-461 e-a l ion 4ce-2ef73c Mi nn question y53806 2014-10-15 2014-10-15 Medication nullFlavo [place] 02 4xmk91-6 [facility] 19:08:00 19:08:00 clarificat r Specialties 89f-4dc 2-a l ion 052-b7b78f Mi nn question 6dce99 2014-10-15 2014-10-15 Medication nullFlavo [place] 0c 2gw008-9 [facility] 19:08:00 19:08:00 clarificat r Specialties b59-4e8 6-8 l ion g72-h3c6jc Mi nn question a50753 2014-10-15 2014-10-15 Medication nullFlavo [place] 05 952o41-1 [facility] 19:08:00 19:08:00 clarificat r Specialties ae0-43e 4-a l ion 0l7-c8s7s8 Mi nn question 3b4a44 2014-10-15 2014-10-15 Medication nullFlavo [place] 30 ug3bn0-p [facility] 19:08:00 19:08:00 clarificat r Specialties a16-4fe a-a l ion da6-238afe Mi nn question roa308 2014-10-11 2014-10-11 Test nullFlavo [place] 9d9fb f81-3 [facility] 15:06:00 15:06:00 results r Specialties 872-486a-9 l 344-73333s Mi nn 00de0a 2014-10-11 2014-10-11 Test nullFlavo [place] 6deb6 6d1-9 [facility] 15:06:00 15:06:00 results r Specialties 7a1-8j49-d l n05-v5g232 Mi nn 801987 2408-08-20 2014-10-11 Test nullFlavo [place] 258[address] 8b0-3 [facility] 15:06:00 15:06:00 results r Specialties 71c-4a72-b l 0c0-323083 Mi nn d3bb01 2014-10-11 2014-10-11 Test nullFlavo [place] abb00 3c9-c [facility] 15:06:00 15:06:00 results r Specialties 198-49b8-b l 673-6ev360 [facility] nn 425da3 2014-10-11 2014-10-11 Test nullFlavo [place] 2efd5 ad6-1 [facility] 15:06:00 15:06:00 results r Specialties c99-16i6-6 l 93e-8ef30a [facility] nn db52c1 2014-10-11 2014-10-11 Test nullFlavo [place] 0f0c0 59c-a [facility] 15:06:00 15:06:00 results r Specialties fa5-4e8b-8 l 646-582121 [facility] nn cc8b4a 2014-10-11 2014-10-11 Test nullFlavo [place] aabd4 74c-3 [facility] 15:06:00 15:06:00 results r Specialties katiuska-4ea7-a l 50d-2067ca [facility] e418d5 2014-10-11 2014-10-11 Test nullFlavo [place] c9f76 dc3-d [facility] 15:06:00 15:06:00 results r Specialties o44-2109-9 l 914-7df04b [facility] nn 886a39 2014-10-11 2014-10-11 Test nullFlavo [place] 37f17 093-8 [facility] 15:06:00 15:06:00 results r Specialties x33-05b7-3 l 76c-3p4365 [facility] 8ab0f4 2014-10-11 2014-10-11 Test nullFlavo [place] 6[address]02 b90-7 [facility] 15:06:00 15:06:00 results r Specialties 6h7-5771-b l 03e-q9e882 [facility] a41541 2014-10-11 2014-10-11 Test nullFlavo [place] d7631 085-5 [facility] 15:06:00 15:06:00 results r Specialties b65-7qy8-3 l 65d-drp276 [facility] 136610 2880-08-20 2014-10-11 Test nullFlavo [place] e2126 a3c-2 [facility] 15:06:00 15:06:00 results r Specialties 301-400b-b l 8ae-2c6eae Mi nn 7c6f59 2014-10-11 2014-10-11 Test nullFlavo [place] 90b61 351-8 [facility] 15:06:00 15:06:00 results r Specialties 68c-4dcc-a l 702-23f0e4 Mi nn 0e66ee 2014-10-11 2014-10-11 Test nullFlavo [place] [address] 597-b [facility] 15:06:00 15:06:00 results r Specialties efd-4421-8 l w91-1jf947 Mi nn 9d5dc8 2014-10-11 2014-10-11 Test nullFlavo [place] 1210c 6b1-4 [facility] 15:06:00 15:06:00 results r Specialties 520-4c73-8 l 65d-1511b0 Mi nn 5a12ce 2014-10-11 2014-10-11 Test nullFlavo [place] ba9f4 e47-8 [facility] 15:06:00 15:06:00 results r Specialties c16-27wf-s l 1bf-02aae5 Mi nn a62c92 2014-10-11 2014-10-11 Test nullFlavo [place] 494[address] 140-4 [facility] 15:06:00 15:06:00 results r Specialties o58-9l78-p l 1p0-ldt8vp Mi nn 6d83e7 2014-10-11 2014-10-11 Test nullFlavo [place] c77f4 790-d [facility] 15:06:00 15:06:00 results r Specialties 2z1-6cz5-o l 74f-2636c7 Mi nn 3ecd35 2014-10-11 2014-10-11 Test nullFlavo [place] e2295 6bf-9 [facility] 15:06:00 15:06:00 results r Specialties 8ad-43a5-9 l 437-ca94fd Mi nn s5191k 2014-10-11 2014-10-11 Test nullFlavo [place] 728f6 ff5-0 [facility] 15:06:00 15:06:00 results r Specialties 0l2-09sa-q l 7l6-t3249r Mi nn v45362 2014-10-11 2014-10-11 Test nullFlavo [place] 88d28 4a0-6 [facility] 15:06:00 15:06:00 results r Specialties 95b-4fa9-b l 36c-p9827f [facility] nn 1f47ba 2014-10-11 2014-10-11 Test nullFlavo [place] ca81f 21c-1 [facility] 15:06:00 15:06:00 results r Specialties ebc-4ea4-a l 7s2-ag77pz [facility] nn cfa65b 2014-10-11 2014-10-11 Test nullFlavo [place] 2b05e 004-6 [facility] 15:06:00 15:06:00 results r Specialties k79-11y9-r l k19-x184n4 [facility] nn 34332z 2014-10-11 2014-10-11 Test nullFlavo [place] 0f0c0 59c-a [facility] 15:06:00 15:06:00 results r Specialties fa5-4e8b-8 l 646-283461 [facility] nn cc8b4a 2014-10-11 2014-10-11 Test [place]Fl[facility] [place] [address]2778 b90-7 [facility] 15:06:00 15:06:00 results r Specialties 7l0-0702-n l 03e-j1m860 [facility] nn k01025 2014-10-11 2014-10-11 Test nullFlavo [place] ba9f4 e47-8 [facility] 15:06:00 15:06:00 results r Specialties e51-17cm-j l 1bf-02aae5 [facility] nn a62c92 2014-10-11 2014-10-11 Test nullFlavo [place] 90b61 351-8 [facility] 15:06:00 15:06:00 results r Specialties 68c-4dcc-a l 702-23f0e4 [facility] nn 0e66ee 2014-10-11 2014-10-11 Test nullFlavo [place] c77f4 790-d [facility] 15:06:00 15:06:00 results r Specialties 2u8-1qy3-v l 74f-2636c7 [facility] nn 3ecd35 2014-10-11 2014-10-11 Test nullFlavo [place] [address] 597-b [facility] 15:06:00 15:06:00 results r Specialties efd-4421-8 l j36-7qy866 Mi nn 9d5dc8 2014-10-11 2014-10-11 Test nullFlavo [place] e2126 a3c-2 [facility] 15:06:00 15:06:00 results r Specialties 301-400b-b l 8ae-2c6eae Mi nn 7c6f59 2014-10-11 2014-10-11 Test nullFlavo [place] 1210c 6b1-4 [facility] 15:06:00 15:06:00 results r Specialties 520-4c73-8 l 65d-1511b0 Mi nn 5a12ce 2014-10-11 2014-10-11 Test nullFlavo [place] 88d28 4a0-6 [facility] 15:06:00 15:06:00 results r Specialties 95b-4fa9-b l 36c-j5071e Mi nn 1f47ba 2014-10-11 2014-10-11 Test nullFlavo [place] e2295 6bf-9 [facility] 15:06:00 15:06:00 results r Specialties 8ad-43a5-9 l 437-ca94fd Mi nn f1487p 2014-10-11 2014-10-11 Test nullFlavo [place] 16876 140-4 [facility] 15:06:00 15:06:00 results r Specialties l25-7r49-f l 9j3-yfo8xz Mi nn 6d83e7 2014-10-11 2014-10-11 Test nullFlavo [place] d7631 085-5 [facility] 15:06:00 15:06:00 results r Specialties j83-8rh8-3 l 65d-txf513 Mi nn 069488 2608-08-20 2014-10-11 Test nullFlavo [place] 728f6 ff5-0 [facility] 15:06:00 15:06:00 results r Specialties 8l0-46bt-k l 5z0-w6454r Mi nn g63019 2014-10-11 2014-10-11 Test nullFlavo [place] 2b05e 004-6 [facility] 15:06:00 15:06:00 results r Specialties n38-59y5-p l w09-a506w1 Mi nn 28997x 2014-10-11 2014-10-11 Test nullFlavo [place] ca81f 21c-1 [facility] 15:06:00 15:06:00 results r Specialties ebc-4ea4-a l 1h9-xe05ni Mi nn cfa65b 2014-10-11 2014-10-11 Test nullFlavo [place] [address] 8b0-3 [facility] 15:06:00 15:06:00 results r Specialties 71c-4a72-b l 2r2-035715 Mi nn d3bb01 2014-10-11 2014-10-11 Test nullFlavo [place] 9d9fb f81-3 [facility] 15:06:00 15:06:00 results r Specialties 872-486a-9 l 344-85068t Mi nn 00de0a 2014-10-11 2014-10-11 Test nullFlavo [place] c9f76 dc3-d [facility] 15:06:00 15:06:00 results r Specialties k03-2244-9 l 914-7df04b Mi nn 886a39 2014-10-11 2014-10-11 Test nullFlavo [place] aabd4 74c-3 [facility] 15:06:00 15:06:00 results r Specialties katiuska-4ea7-a l 50d-2067ca Mi nn [id number] 2014-10-11 2014-10-11 Test nullFlavo [place] 6deb6 6d1-9 [facility] 15:06:00 15:06:00 results r Specialties 5o4-6l90-o l v06-b5e270 Mi nn [id number] 3114-08-20 2014-10-11 Test nullFlavo [place] 37f17 093-8 [facility] 15:06:00 15:06:00 results r Specialties m10-74d1-9 l 76c-0l2580 Mi nn 8ab0f4 2014-10-11 2014-10-11 Test nullFlavo [place] 2efd5 ad6-1 [facility] 15:06:00 15:06:00 results r Specialties v96-21v8-0 l 93e-8ef30a Mi nn [id number] 2014-10-11 2014-10-11 Test nullFlavo [place] abb00 3c9-c [facility] 15:06:00 15:06:00 results r Specialties 198-49b8-b l 673-1oy419 Mi nn [id number] 2014-10-11 2014-10-11 Test nullFlavo [place] d8fdd 779-e [facility] 14:06:00 14:06:00 results r Specialties 6aa-4c04-9 l eff-d5a4dc Mi nn [id number] 4104-08-20 2014-10-11 Test nullFlavo [place] 33a8d fc2-a [facility] 14:06:00 14:06:00 results r Specialties 453-4fd1-b l w9b-y57ea8 Mi nn 30a97f 2014-10-11 2014-10-11 Test nullFl[facility] [place] [address] f86-d [facility] 14:06:00 14:06:00 results r Specialties 80d-4124-b l x7b-1x9h9t Mi nn [id number] 2014-10-11 2014-10-11 Test nullFl[facility] [place] b2119 f64-3 [facility] 14:06:00 14:06:00 results r Specialties 327-4d14-b l i87-10154j Mi nn 66fef2 2014-10-11 2014-10-11 Test nullFl[facility] [place] 18aa9 12d-b [facility] 14:06:00 14:06:00 results r Specialties eb7-4623-9 l t90-sz3p4f Mi nn 2f14c3 2014-10-11 2014-10-11 Test nullFlavo [place] f7816 5ff-0 [facility] 14:06:00 14:06:00 results r Specialties 4f1-1340-f l 8bb-78f84c Mi nn 71fdba 2014-10-11 2014-10-11 Test nullFl[facility] [place] dd1f7 04b-9 [facility] 14:06:00 14:06:00 results r Specialties 171-45dc-9 l 030-c4e25f Mi nn [id number] 2014-10-11 2014-10-11 Test nullFlavo [place] 826ed 51b-b [facility] 14:06:00 14:06:00 results r Specialties fc3-43ad-b l 8bc-2886fb Mi nn e8bebb 2014-10-11 2014-10-11 Test nullFlavo [place] 8279a fda-d [facility] 14:06:00 14:06:00 results r Specialties 827-47b6-9 l 640-91c711 Mi nn b0cb46 2014-10-11 2014-10-11 Test nullFlavo [place] [address] fc0-2 [facility] 14:06:00 14:06:00 results r Specialties 4da-46ba-a l 938-fa4a43 [facility] nn [id number] 2014-10-11 2014-10-11 Test nullFlavo [place] e3432 64c-8 [facility] 14:06:00 14:06:00 results r Specialties t38-6x30-0 l 699-31179l Mi nn ad0d31 2014-10-11 2014-10-11 Test nullFlavo [place] 2e03f b91-d [facility] 14:06:00 14:06:00 results r Specialties 6ab-49df-9 l 7fe-85ccac [facility] nn [id number] 0415-08-20 2014-10-11 Test nullFlavo [place] 2ff58 041-d [facility] 14:06:00 14:06:00 results r Specialties 2o3-3jln-8 l 867-1ua664 [facility] nn 7526ac 2014-10-11 2014-10-11 Test nullFlavo [place] [address] bab-b [facility] 14:06:00 14:06:00 results r Specialties r19-37p9-9 l 8f3-a0436t [facility] nn [id number] 2014-10-11 2014-10-11 Test nullFlavo [place] c7184 e68-5 [facility] 14:06:00 14:06:00 results r Specialties dfc-49d8-a l w60-1rd18d [facility] nn 06058z 2014-10-11 2014-10-11 Test nullFlavo [place] a39e4 f8b-c [facility] 14:06:00 14:06:00 results r Specialties 191-4382-8 l bed-9c8082 Mi nn a813cd 2014-10-11 2014-10-11 Test nullFlavo [place] 1b637 0c6-6 [facility] 14:06:00 14:06:00 results r Specialties 4f2-63f6-m l r91-zs74p3 Mi nn d792a6 2014-10-11 2014-10-11 Test [facility] [place] [address] 83e-d [facility] 14:06:00 14:06:00 results r Specialties y38-729s-8 l t5h-82b3hs Mi nn 44449a 2014-10-11 2014-10-11 Test [facility] [place] c519d e1a-4 [facility] 14:06:00 14:06:00 results r Specialties 6d5-7y53-l l fcd-1m8801 Mi nn 48edec 2014-10-11 2014-10-11 Test [facility] [place] [address] a10-7 Memoria 14:06:00 14:06:00 results r Specialties 6a0-2n31-d l 5o7-30x23d Mi nn 1a58f8 2014-10-11 2014-10-11 Test [facility] [place] 6bef1 bab-4 [facility] 14:06:00 14:06:00 results r Specialties 1q0-9a39-2 l 279-e9ab08 Mi nn 0c3bfb 2014-10-11 2014-10-11 Test [facility] [place] d8fdd 779-e [facility] 14:06:00 14:06:00 results r Specialties 6aa-4c04-9 l eff-d5a4dc Mi nn 618822 8246-08-20 2014-10-11 Test [facility] [place] [address] f86-d [facility] 14:06:00 14:06:00 results r Specialties 80d-4124-b l k1b-8k5z1s Mi nn pw5085 2014-10-11 2014-10-11 Test [facility] [place] 18aa9 12d-b [facility] 14:06:00 14:06:00 results r Specialties eb7-4623-9 l v70-pu2d2d Mi nn 2f14c3 2014-10-11 2014-10-11 Test [facility] [place] b2119 f64-3 Memoria 14:06:00 14:06:00 results r Specialties 327-4d14-b l p43-58166m Mi nn 66fef2 2014-10-11 2014-10-11 Test [facility] [place] 33a8d fc2-a [facility] 14:06:00 14:06:00 results r Specialties 453-4fd1-b l n4j-x98yw2 Mi nn 30a97f 2014-10-11 2014-10-11 Test [facility] [place] [address] 51b-b [facility] 14:06:00 14:06:00 results r Specialties fc3-43ad-b l 8bc-2886fb Mi nn e8bebb 2014-10-11 2014-10-11 Test [facility] [place] 2e03f b91-d [facility] 14:06:00 14:06:00 results r Specialties 6ab-49df-9 l 7fe-85ccac Mi nn 409663 0693-08-20 2014-10-11 Test [facility] [place] e3432 64c-8 Mem[facility] 14:06:00 14:06:00 results r Specialties w06-8g78-5 l 699-78172v Mi nn ad0d31 2014-10-11 2014-10-11 Test [facility] [place] f7816 5ff-0 Memoria 14:06:00 14:06:00 results r Specialties 3e5-9827-c l 8bb-78f84c Mi nn 71fdba 2014-10-11 2014-10-11 Test [facility] [place] dd1f7 04b-9 Memoria 14:06:00 14:06:00 results r Specialties 171-45dc-9 l 030-c4e25f Mi nn [id number] 2014-10-11 2014-10-11 Test [facility] [place] 2ff58 041-d [facility] 14:06:00 14:06:00 results r Specialties 6f6-5zww-5 l 867-0vu455 Mi nn 7526ac 2014-10-11 2014-10-11 Test [facility] [place] [address] fc0-2 Memoria 14:06:00 14:06:00 results r Specialties 4da-46ba-a l 938-fa4a43 Mi nn 5vk073 2014-10-11 2014-10-11 Test [facility] [place] 1b637 0c6-6 Memoria 14:06:00 14:06:00 results r Specialties 7o2-66c6-b l v56-wd79w7 Mi nn d792a6 2014-10-11 2014-10-11 Test [facility] [place] [address] 83e-d Mem[facility] 14:06:00 14:06:00 results r Specialties a06-726b-6 l b2o-98v9cv Mi nn 57233l 2014-10-11 2014-10-11 Test [facility] [place] c519d e1a-4 [facility] 14:06:00 14:06:00 results r Specialties 3q6-4i38-d l fcd-1o8148 Mi nn 48edec 2014-10-11 2014-10-11 Test [facility] [place] [address] bab-b [facility] 14:06:00 14:06:00 results r Specialties x48-68t2-1 l 8n2-f8984v [facility] nn m7j358 2014-10-11 2014-10-11 Test [facility] [place] 8279a fda-d Memoria 14:06:00 14:06:00 results r Specialties 827-47b6-9 l 640-94k792 [facility] nn b0cb46 2014-10-11 2014-10-11 Test [facility] [place] [address] a10-7 Memoria 14:06:00 14:06:00 results r Specialties 3a6-4e22-r l 4i9-98y44m [facility] nn 1a58f8 2014-10-11 2014-10-11 Test [facility] [place] c7184 e68-5 Memoria 14:06:00 14:06:00 results r Specialties dfc-49d8-a l i62-6rg12r [facility] nn 04989l 2014-10-11 2014-10-11 Test [facility] [place] a39e4 f8b-c [facility] 14:06:00 14:06:00 results r Specialties 191-4382-8 l bed-1g5414 Mi nn a813cd 2014-10-11 2014-10-11 Test [facility] [place] 6bef1 bab-4 [facility] 14:06:00 14:06:00 results r Specialties 1m0-5h61-0 l 279-e9ab08 Mi nn 0c3bfb 2014-09-26 2014-09-26 rq [facility] [place] 5d126 219-a [facility] 20:01:00 20:01:00 c/b---noti r Specialties katiuska-483 6-9 l terry from 394-f7a59d [facility] d8c62c 2014-09-26 2014-09-26 rq [facility] [place] [address] 651-d [facility] 20:01:00 20:01:00 c/b---noti r Specialties 5p6-065 4-9 l terry from 33d-3ebfdf [facility] d912b1 2014-09-26 2014-09-26 rq [facility] [place] [address] bca-f Mem[facility] 20:01:00 20:01:00 c/b---noti r Specialties h7r-376 4-9 l terry from d57-36148f [facility] 9n0341 2014-09-26 2014-09-26 rq [facility] [place] 0f4e2 f4e-b [facility] 20:01:00 20:01:00 c/b---noti r Specialties 90a-49f a-9 l terry from 40d-a4f6d9 [facility] 3f0c0d 2014-09-26 2014-09-26 rq [facility] [place] ce94f 2ae-4 Mem[facility] 20:01:00 20:01:00 c/b---noti r Specialties 000-4ed 3-9 l terry from 340-16c6ad [facility] 88fcfc 2014-09-26 2014-09-26 rq [facility] [place] 57d95 bda-0 Mem[facility] 20:01:00 20:01:00 c/b---noti r Specialties 4eb-4ca 8-a l terry from 989-p24679 [facility] 9g253i 2014-09-26 2014-09-26 rq [facility] [place] [address] 3dd-1 Memoria 20:01:00 20:01:00 c/b---noti r Specialties a57-4ec 9-9 l terry from 2l4-cvq237 [facility] 0956fe 2014-09-26 2014-09-26 rq [facility] [place] be3f6 615-3 Mem[facility] 20:01:00 20:01:00 c/b---noti r Specialties 3f0-1q9 9-8 l terry from 797-53a368 [facility] 731093 5332-08-05 2014-09-26 rq [facility] [place] 372c2 e33-7 Memoria 20:01:00 20:01:00 c/b---noti r Specialties 0b5-750 1-a l terry from h25-l22903 [facility] b8585w 2014-09-26 2014-09-26 rq [facility] [place] c8dfb 6bc-e [facility] 20:01:00 20:01:00 c/b---noti r Specialties 73b-4bb 1-a l terry from 151-g3h811 [facility] 20bb82 2014-09-26 2014-09-26 rq [facility] [place] 9fc0d 3d8-0 Memoria 20:01:00 20:01:00 c/b---noti r Specialties 531-49a 0-9 l terry from j95-44blva [facility] 9u388i 2014-09-26 2014-09-26 rq [facility] [place] e3b4e a34-4 [facility]oria 20:01:00 20:01:00 c/b---noti r Specialties ad2-4d5 8-9 l terry from a8e-0o3i60 [facility] eb5700 2014-09-26 2014-09-26 rq [facility] [place] 49fb5 cd1-7 Memoria 20:01:00 20:01:00 c/b---noti r Specialties a37-4ad 1-8 l terry from e27-9w1q3z [facility] 7eac1c 2014-09-26 2014-09-26 rq [facility] [place] 3c61a 8b2-b [facility]oria 20:01:00 20:01:00 c/b---noti r Specialties 5j7-25d 1-9 l terry from w29-090t2t [facility] 8f3fc1 2014-09-26 2014-09-26 rq [facility] [place] 8422b bd3-b Mem[facility] 20:01:00 20:01:00 c/b---noti r Specialties 2k8-732 9-8 l terry from 5p6-991173 [facility] 92cd01 2014-09-26 2014-09-26 rq [facility] [place] ff398 267-3 Memoria 20:01:00 20:01:00 c/b---noti r Specialties 340-4d8 6-9 l terry from fda-c519b9 [facility] d066b4 2014-09-26 2014-09-26 rq [facility] [place] 110a9 628-d Mem[facility] 20:01:00 20:01:00 c/b---noti r Specialties ac5-416 2-8 l terry from o3o-3137t6 [facility] 7f5cda 2014-09-26 2014-09-26 rq [facility] [place] 07f4a b65-7 Memoria 20:01:00 20:01:00 c/b---noti r Specialties 259-464 d-a l terry from 996-l71504 [facility] 145953 9494-08-05 2014-09-26 rq [facility] [place] b1995 7c9-1 Memoria 20:01:00 20:01:00 c/b---noti r Specialties fb9-4e8 9-b l terry from 099-1f1e5c [facility] 2720b9 2014-09-26 2014-09-26 rq [facility] [place] 058a8 cc7-f [facility] 20:01:00 20:01:00 c/b---noti r Specialties 9ef-4b8 5-8 l terry from bba-16d6bc [facility] eace2c 2014-09-26 2014-09-26 rq [facility] [place] [address] 416-5 Memoria 20:01:00 20:01:00 c/b---noti r Specialties 03f-454 d-8 l terry from 356-kl865l [facility] 963bf0 2014-09-26 2014-09-26 rq [facility] [place] 0537e 6c9-3 Memoria 20:01:00 20:01:00 c/b---noti r Specialties 464-4cb 6-8 l terry from k59-re518k [facility] 271b5d 2014-09-26 2014-09-26 rq [facility] [place] 248b9 ce3-f Mem[facility] 20:01:00 20:01:00 c/b---noti r Specialties 676-4cb 5-a l terry from 7y7-n630x5 [facility] 6jv989 2014-09-26 2014-09-26 rq [facility] [place] [address] bca-f [facility] 20:01:00 20:01:00 c/b---noti r Specialties g0r-200 4-9 l terry from k63-01505a [facility] 5b3946 2014-09-26 2014-09-26 rq [facility] [place] 5d126 219-a Memoria 20:01:00 20:01:00 c/b---noti r Specialties katiuska-483 6-9 l terry from 394-f7a59d [facility] d8c62c 2014-09-26 2014-09-26 rq [facility] [place] be3f6 615-3 [facility] 20:01:00 20:01:00 c/b---noti r Specialties 5x2-5a3 9-8 l terry from 797-58q571 [facility] [id number] 8188-08-05 2014-09-26 rq [facility] [place] [address] 3dd-1 Memoria 20:01:00 20:01:00 c/b---noti r Specialties a57-4ec 9-9 l terry from 9o8-oqy977 [facility] 0956fe 2014-09-26 2014-09-26 rq [facility] [place] [address] 651-d Memoria 20:01:00 20:01:00 c/b---noti r Specialties 6a5-675 4-9 l terry from 33d-3ebfdf [facility] d912b1 2014-09-26 2014-09-26 rq [facility] [place] 372c2 e33-7 Memoria 20:01:00 20:01:00 c/b---noti r Specialties 3w3-616 1-a l terry from g78-q14280 [facility] l2201q 2014-09-26 2014-09-26 rq [facility] [place] ce94f 2ae-4 Memoria 20:01:00 20:01:00 c/b---noti r Specialties 000-4ed 3-9 l terry from 340-16c6ad [facility] 88fcfc 2014-09-26 2014-09-26 rq [facility] [place] 0f4e2 f4e-b [facility]oria 20:01:00 20:01:00 c/b---noti r Specialties 90a-49f a-9 l terry from 40d-a4f6d9 [facility] 3f0c0d 2014-09-26 2014-09-26 rq [facility] [place] 57d95 bda-0 Memoria 20:01:00 20:01:00 c/b---noti r Specialties 4eb-4ca 8-a l terry from 989-y26029 [facility] 6z488i 2014-09-26 2014-09-26 rq [facility] [place] c8dfb 6bc-e [facility] 20:01:00 20:01:00 c/b---noti r Specialties 73b-4bb 1-a l terry from 151-b7e372 [facility] 20bb82 2014-09-26 2014-09-26 rq [facility] [place] ff398 267-3 [facility] 20:01:00 20:01:00 c/b---noti r Specialties 340-4d8 6-9 l terry from fda-c519b9 [facility] d066b4 2014-09-26 2014-09-26 rq [facility] [place] 49fb5 cd1-7 Mem[facility] 20:01:00 20:01:00 c/b---noti r Specialties a37-4ad 1-8 l terry from m61-0v6k3m [facility] 7eac1c 2014-09-26 2014-09-26 rq [facility] [place] 07f4a b65-7 Memoria 20:01:00 20:01:00 c/b---noti r Specialties 259-464 d-a l terry from 996-g20219 [facility] 094956 7381-08-05 2014-09-26 rq [facility] [place] 3c61a 8b2-b [facility] 20:01:00 20:01:00 c/b---noti r Specialties 9n9-78v 1-9 l terry from x16-320v5l [facility] 8f3fc1 2014-09-26 2014-09-26 rq [facility] [place] e3b4e a34-4 Memoria 20:01:00 20:01:00 c/b---noti r Specialties ad2-4d5 8-9 l terry from i8z-5m7b14 [facility] [id number] 2014-09-26 2014-09-26 rq [facility] [place] 8422b bd3-b [facility]oria 20:01:00 20:01:00 c/b---noti r Specialties 6c5-875 9-8 l terry from 1u3-233425 [facility] 92cd01 2014-09-26 2014-09-26 rq [facility] [place] [address] 416-5 [facility] 20:01:00 20:01:00 c/b---noti r Specialties 03f-454 d-8 l terry from 356-me983x [facility] 963bf0 2014-09-26 2014-09-26 rq [facility] [place] b1995 7c9-1 Memoria 20:01:00 20:01:00 c/b---noti r Specialties fb9-4e8 9-b l terry from 099-1f1e5c [facility] 2720b9 2014-09-26 2014-09-26 rq [facility] [place] 110a9 628-d Memoria 20:01:00 20:01:00 c/b---noti r Specialties ac5-416 2-8 l terry from f6v-2866k8 [facility] 7f5cda 2014-09-26 2014-09-26 rq [facility] [place] 9fc0d 3d8-0 Memoria 20:01:00 20:01:00 c/b---noti r Specialties 531-49a 0-9 l terry from g30-64sybc [facility] 0s518d 2014-09-26 2014-09-26 rq [facility] [place] 058a8 cc7-f Memoria 20:01:00 20:01:00 c/b---noti r Specialties 9ef-4b8 5-8 l terry from bba-16d6bc [facility] eace2c 2014-09-26 2014-09-26 rq [facility] [place] 248b9 ce3-f Memoria 20:01:00 20:01:00 c/b---noti r Specialties 676-4cb 5-a l terry from 4j4-k197l3 [facility] 3ni993 2014-09-26 2014-09-26 rq [facility] [place] 0537e 6c9-3 Memoria 20:01:00 20:01:00 c/b---noti r Specialties 464-4cb 6-8 l terry from b14-ml177d [facility] 271b5d 2014-09-26 2014-09-26 rq [facility] [place] 4eb69 31a-9 Memoria 19:01:00 19:01:00 c/b---noti r Specialties 6cc-406 b-a l terry from u74-50b9o7 [facility] 03952d 2014-09-26 2014-09-26 rq [facility] [place] 3dddb 17e-b Memoria 19:01:00 19:01:00 c/b---noti r Specialties 45f-499 e-a l terry from a70-91n9s3 [facility] c073a9 2014-09-26 2014-09-26 rq [facility] [place] 715b3 0b7-4 Memoria 19:01:00 19:01:00 c/b---noti r Specialties 1m0-084 2-a l 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 [facility] 117c7a 2014-09-26 2014-09-26 rq [facility] [place] [address] 094-3 Memoria 19:01:00 19:01:00 c/b---noti r Specialties c38-4ab 6-9 l terry from 548-p4t202 [facility] bee0e6 2014-09-26 2014-09-26 rq [facility] [place] 66ff0 76e-9 Memoria 19:01:00 19:01:00 c/b---noti r Specialties e43-461 1-8 l terry from a00-w983l6 [facility] 63a3ec 2014-09-26 2014-09-26 rq [facility] [place] 878b4 e9d-4 Memoria 19:01:00 19:01:00 c/b---noti r Specialties 0cf-432 3-9 l terry from p19-92ag83 [facility] [id number] 5193-08-05 2014-09-26 rq [facility] [place] 193c4 56c-0 Memoria 19:01:00 19:01:00 c/b---noti r Specialties 879-41e 3-b l terry from ecc-9ea13c [facility] 923a1e 2014-09-26 2014-09-26 rq [facility] [place] d7900 137-b [facility] 19:01:00 19:01:00 c/b---noti r Specialties 021-443 3-8 l terry from 6u8-37vml3 [facility] j5z724 2014-09-26 2014-09-26 rq [facility] [place] a0842 c0d-7 Memoria 19:01:00 19:01:00 c/b---noti r Specialties 5k5-670 8-a l terry from 6df-a3fa87 [facility] f99f6b 2014-09-26 2014-09-26 rq [facility] [place] ad1c8 04c-e [facility] 19:01:00 19:01:00 c/b---noti r Specialties b67-410 6-8 l terry from l84-9i8792 [facility] 53ddc6 2014-09-26 2014-09-26 rq [facility] [place] 9a6c1 897-b [facility] 19:01:00 19:01:00 c/b---noti r Specialties l0w-0u2 7-9 l terry from [id number] [facility] e1b23c 2014-09-26 2014-09-26 rq [facility] [place] 0695e eab-0 Memoria 19:01:00 19:01:00 c/b---noti r Specialties 18b-4e3 2-b l terry from l43-3bvdb0 [facility] d7cdb7 2014-09-26 2014-09-26 rq [facility] [place] [address] 1e9-a Memoria 19:01:00 19:01:00 c/b---noti r Specialties eb3-46d 6-8 l terry from 507-4c7619 [facility] [id number] 6298-08-05 2014-09-26 rq [facility] [place] 6c830 3de-d Memoria 19:01:00 19:01:00 c/b---noti r Specialties 626-493 e-a l terry from o4p-8k6638 [facility] 112efd 2014-09-26 2014-09-26 rq [facility] [place] 9332d 45a-7 Memoria 19:01:00 19:01:00 c/b---noti r Specialties 476-408 d-b l terry from 4s4-5r5r3w [facility] 685f9e 2014-09-26 2014-09-26 rq [facility] [place] c9ec1 d9b-f [facility]oria 19:01:00 19:01:00 c/b---noti r Specialties f7c-06a a-b l terry from b2w-68duh2 [facility] 3i389j 2014-09-26 2014-09-26 rq [facility] [place] b2454 c15-7 Memoria 19:01:00 19:01:00 c/b---noti r Specialties 7n5-170 9-a l terry from z98-x4ulem [facility] bd5d62 2014-09-26 2014-09-26 rq [facility] [place] e27c8 608-c Mem[facility] 19:01:00 19:01:00 c/b---noti r Specialties 19e-47c 5-9 l terry from 327-123192 [facility] [id number] 2014-09-26 2014-09-26 rq [facility] [place] 01fd6 d22-3 Memoria 19:01:00 19:01:00 c/b---noti r Specialties fa6-47c 3-b l terry from 43d-06d92b [facility] 724f3c 2014-09-26 2014-09-26 rq [facility] [place] 83ef7 003-1 Memoria 19:01:00 19:01:00 c/b---noti r Specialties a11-446 6-8 l terry from 6x5-455n1k [facility] [id number] 2014-09-26 2014-09-26 rq [facility] [place] 65a00 85d-b Memoria 19:01:00 19:01:00 c/b---noti r Specialties 179-4bd 5-b l terry from 2fd-15c9f7 [facility] kto297 2014-09-26 2014-09-26 rq [facility] [place] 4eb69 31a-9 Memoria 19:01:00 19:01:00 c/b---noti r Specialties 6cc-406 b-a l terry from a56-53c9i0 [facility] 05436j 2014-09-26 2014-09-26 rq [facility] [place] 715b3 0b7-4 Memoria 19:01:00 19:01:00 c/b---noti r Specialties 2d1-248 2-a l 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 [facility] 117c7a 2014-09-26 2014-09-26 rq [facility] [place] 66ff0 76e-9 Memoria 19:01:00 19:01:00 c/b---noti r Specialties e43-461 1-8 l terry from f53-a309w3 [facility] 63a3ec 2014-09-26 2014-09-26 rq [facility] [place] 29834 094-3 Memoria 19:01:00 19:01:00 c/b---noti r Specialties c38-4ab 6-9 l terry from 548-t0y963 [facility] bee0e6 2014-09-26 2014-09-26 rq [facility] [place] 3dddb 17e-b Memoria 19:01:00 19:01:00 c/b---noti r Specialties 45f-499 e-a l terry from h74-42v1t8 [facility] c073a9 2014-09-26 2014-09-26 rq [facility] [place] d7900 137-b [facility] 19:01:00 19:01:00 c/b---noti r Specialties 021-443 3-8 l terry from 0y7-26veb6 [facility] j9d712 2014-09-26 2014-09-26 rq [facility] [place] 0695e eab-0 Memoria 19:01:00 19:01:00 c/b---noti r Specialties 18b-4e3 2-b l terry from k84-5eror8 [facility] d7cdb7 2014-09-26 2014-09-26 rq [facility] [place] 9a6c1 897-b Memoria 19:01:00 19:01:00 c/b---noti r Specialties r7l-1m4 7-9 l terry from [id number] [facility] e1b23c 2014-09-26 2014-09-26 rq [facility] [place] 878b4 e9d-4 Memoria 19:01:00 19:01:00 c/b---noti r Specialties 0cf-432 3-9 l terry from w97-34eh26 [facility] [id number] 9127-08-05 2014-09-26 rq [facility] [place] 193c4 56c-0 Memoria 19:01:00 19:01:00 c/b---noti r Specialties 879-41e 3-b l terry from ecc-9ea13c [facility] 923a1e 2014-09-26 2014-09-26 rq [facility] [place] [address] 1e9-a [facility] 19:01:00 19:01:00 c/b---noti r Specialties eb3-46d 6-8 l terry from 507-9w6943 [facility] 516457 2714-08-05 2014-09-26 rq [facility] [place] ad1c8 04c-e [facility] 19:01:00 19:01:00 c/b---noti r Specialties b67-410 6-8 l terry from r53-8l8924 [facility] 53ddc6 2014-09-26 2014-09-26 rq [facility] [place] b2454 c15-7 Mem[facility] 19:01:00 19:01:00 c/b---noti r Specialties 1i3-022 9-a l terry from p82-c4tijw [facility] bd5d62 2014-09-26 2014-09-26 rq [facility] [place] e27c8 608-c [facility] 19:01:00 19:01:00 c/b---noti r Specialties 19e-47c 5-9 l terry from 327-053300 [facility] dq6390 2014-09-26 2014-09-26 rq [facility] [place] 01fd6 d22-3 Memoria 19:01:00 19:01:00 c/b---noti r Specialties fa6-47c 3-b l terry from 43d-06d92b [facility] 724f3c 2014-09-26 2014-09-26 rq [facility] [place] 6c830 3de-d [facility] 19:01:00 19:01:00 c/b---noti r Specialties 626-493 e-a l terry from k6x-7g3941 [facility] 112efd 2014-09-26 2014-09-26 rq [facility] [place] a0842 c0d-7 [facility] 19:01:00 19:01:00 c/b---noti r Specialties 4l9-563 8-a l terry from 6df-a3fa87 [facility] f99f6b 2014-09-26 2014-09-26 rq [facility] [place] 83ef7 003-1 [facility] 19:01:00 19:01:00 c/b---noti r Specialties a11-446 6-8 l terry from 2q3-172m6h [facility] [id number] 2014-09-26 2014-09-26 rq [facility] [place] 9332d 45a-7 [facility] 19:01:00 19:01:00 c/b---noti r Specialties 476-408 d-b l terry from 2o3-3k1x1h [facility] 685f9e 2014-09-26 2014-09-26 rq [facility] [place] c9ec1 d9b-f [facility] 19:01:00 19:01:00 c/b---noti r Specialties u9w-82e a-b l terry from i4g-17qfp7 [facility] 2w452a 2014-09-26 2014-09-26 rq [facility] [place] 65a00 85d-b [facility] 19:01:00 19:01:00 c/b---noti r Specialties 179-4bd 5-b l terry from 2fd-15c9f7 [facility] dkv704 2014-09-13 2014-09-13 [place] [facility] [place] 06 m26089-y [facility] 14:50:00 14:50:00 Not r Specialties fe0-427a-a l Covered 929-f68c25 Mi nn mz8077 2014-09-13 2014-09-13 [place] [employer] [place] a8 x4f53w-7 [facility] 14:50:00 14:50:00 Not r Specialties 370-4ef2-a l Covered m54-5712t0 Mi nn [id number] 2014-09-13 2014-09-13 [place] [facility] [place] e9 2p90i1-8 [facility] 14:50:00 14:50:00 Not r Specialties 1r1-11x7-2 l Covered 91f-3g1248 Mi nn [id number] 2014-09-13 2014-09-13 [place] [employer] [place] 23 [id number] [facility] 14:50:00 14:50:00 Not r Specialties 7d7-12o9-p l Covered j72-p2n79u Mi nn [id number] 2014-09-13 2014-09-13 [place] [employer] [place] 99 [id number]-2 [facility] 14:50:00 14:50:00 Not r Specialties 476-49a1-9 l Covered 5u4-531237 Mi nn [id number] 2014-09-13 2014-09-13 [place] [employer] [place] 2d [id number] [facility] 14:50:00 14:50:00 Not r Specialties 2l1-48r2-3 l Covered 204-gh9406 Mi nn [id number] 2014-09-13 2014-09-13 [facility] [employer] [place] 30 g6lc0j-u [facility] 14:50:00 14:50:00 Not r Specialties df9-412c-a l Covered e66-724i1e Mi nn [id number] 2014-09-13 2014-09-13 [facility] [employer] [place] fa f1tg8z-h [facility] 14:50:00 14:50:00 Not r Specialties 6be-4578-a l Covered h1z-6n0026 Mi nn [id number] 2014-09-13 2014-09-13 [place] [facility] [place] e5 k7c44n-f [facility] 14:50:00 14:50:00 Not r Specialties t8k-645d-n l Covered 384-17078y Mi nn 94fcd0 2014-09-13 2014-09-13 [place] [facility] [place] 6a 2q4r7r-3 [facility] 14:50:00 14:50:00 Not r Specialties 1fd-4e0a-8 l Covered 9f0-82s833 Mi nn [id number] 2014-09-13 2014-09-13 [place] [facility] [place] 78 86h8q2-6 [facility] 14:50:00 14:50:00 Not r Specialties 864-4332-b l Covered 88f-e980e0 Mi nn 9a00cc 2014-09-13 2014-09-13 [place] [facility] [place] 4a 9gm763-2 [facility] 14:50:00 14:50:00 Not r Specialties 085-4688-8 l Covered anjana-29b8bf [place] nn 851600 1261-07-23 2014-09-13 [place] [facility] [place] bc [id number]-s [facility] 14:50:00 14:50:00 Not r Specialties 08a-44a7-b l Covered n5p-e5s35q Mi nn 5cc80f 2014-09-13 2014-09-13 [place] [facility] [place] 5d [id number] [facility] 14:50:00 14:50:00 Not r Specialties 320-4b00-9 l Covered 31f-44be10 Mi nn [id number] 2014-09-13 2014-09-13 [place] [facility] [place] 5e 4k478q-f [facility] 14:50:00 14:50:00 Not r Specialties 940-4b7b-8 l Covered 6bd-43z837 Mi nn [id number] 2014-09-13 2014-09-13 [place] [facility] [place] 08 9p717p-t [facility] 14:50:00 14:50:00 Not r Specialties 3s8-7378-y l Covered ec6-5559e9 Mi nn [id number] 2014-09-13 2014-09-13 [place] [facility] [place] 98 a996on-6 [facility] 14:50:00 14:50:00 Not r Specialties 760-4eed-a l Covered de8-5jd031 Mi nn [id number] 2014-09-13 2014-09-13 [place] [facility] [place] 5e jimr92-b [facility] 14:50:00 14:50:00 Not r Specialties 4fd-4559-8 l Covered 8f6-0ktu42 Mi nn [id number] 2014-09-13 2014-09-13 [place] [facility] [place] 38 [id number] [facility] 14:50:00 14:50:00 Not r Specialties i2r-3r28-s l Covered 513-1fd1e3 Mi nn 3ecac8 2014-09-13 2014-09-13 [place] [facility] [place] 14 n4004d-8 [facility] 14:50:00 14:50:00 Not r Specialties 12d-497d-b l Covered 07d-1r3181 Mi nn [id number] 2014-09-13 2014-09-13 [place] [facility] [place] a7 7b67vj-a [facility] 14:50:00 14:50:00 Not r Specialties 186-48d3-9 l Covered x55-vuk869 Mi nn [id number] 2014-09-13 2014-09-13 [place] [facility] [place] 42 23j05m-3 [facility] 14:50:00 14:50:00 Not r Specialties 644-494e-9 l Covered 901-f366df Mi nn [id number] 2014-09-13 2014-09-13 [place] [facility] [place] dc u68x61-a [facility] 14:50:00 14:50:00 Not r Specialties df5-4cb6-a l Covered j0k-62dy25 Mi nn [id number] 2014-09-13 2014-09-13 [place] [facility] [place] e9 0r56c6-0 [facility] 14:50:00 14:50:00 Not r Specialties 0y3-79o7-1 l Covered 91f-5r9430 Mi nn [id number] 2014-09-13 2014-09-13 [place] [facility] [place] 06 [id number] [facility] 14:50:00 14:50:00 Not r Specialties fe0-427a-a l Covered 929-f68c25 Mi nn [id number] 2014-09-13 2014-09-13 [place] [facility] [place] fa r6du9s-y [facility] 14:50:00 14:50:00 Not r Specialties 6be-4578-a l Covered g8y-5v1987 Mi nn f172a0 2014-09-13 2014-09-13 [place] [facility] [place] 30 g0vq8y-p [facility] 14:50:00 14:50:00 Not r Specialties df9-412c-a l Covered w95-661q7j Mi nn qn765y 2014-09-13 2014-09-13 [place] [facility] [place] a8 d6l61s-6 [facility] 14:50:00 14:50:00 Not r Specialties 370-4ef2-a l Covered x91-8320v4 Mi nn [id number] 2014-09-13 2014-09-13 [place] [facility] [place] e5 i7l37p-h [facility] 14:50:00 14:50:00 Not r Specialties g9r-566m-k l Covered 384-43439w Mi nn 94fcd0 2014-09-13 2014-09-13 [place] [facility] [place] 99 43167g-2 [facility] 14:50:00 14:50:00 Not r Specialties 476-49a1-9 l Covered 5z4-257248 Mi nn [id number] 2014-09-13 2014-09-13 [place] [employer] [place] 23 0cg125-q [facility] 14:50:00 14:50:00 Not r Specialties 4r5-83z3-e l Covered x94-d3c37t Mi nn [id number] 2014-09-13 2014-09-13 [place] [facility] [place] 2d 062443-6 [facility] 14:50:00 14:50:00 Not r Specialties 2u4-07m3-4 l Covered 204-pt7906 Mi nn f398c0 2014-09-13 2014-09-13 [place] [facility] [place] 6a 5d8y1w-4 [facility] 14:50:00 14:50:00 Not r Specialties 1fd-4e0a-8 l Covered 3o9-07u067 Mi nn [id number] 2014-09-13 2014-09-13 [facility] [facility] [place] 08 8y748j-e [facility] 14:50:00 14:50:00 Not r Specialties 8k5-0407-n l Covered ec6-5559e9 Mi nn [id number] 2014-09-13 2014-09-13 [place] [facility] bc m0o954-b [facility] 14:50:00 14:50:00 Not r Specialties 08a-44a7-b l Covered s7z-q7e14w Mi nn 5cc80f 2014-09-13 2014-09-13 [facility] [place] 5e mpdq92-v [facility] 14:50:00 14:50:00 Not r Specialties 4fd-4559-8 l Covered 7o5-2sir54 Mi nn 4e9c6e 2014-09-13 2014-09-13 [facility] [place] 5d 989056-q [facility] 14:50:00 14:50:00 Not r Specialties 320-4b00-9 l Covered 31f-44be10 Mi nn d1k279 2014-09-13 2014-09-13 [facility] [place] 4a 9cc633-3 [facility] 14:50:00 14:50:00 Not r Specialties 085-4688-8 l Covered anjana-29b8bf Mi nn 087577 5773-07-23 2014-09-13 [facility] [place] 5e 7h593k-n [facility] 14:50:00 14:50:00 Not r Specialties 940-4b7b-8 l Covered 6bd-03g461 Mi nn dea21d 2014-09-13 2014-09-13 [facility] [place] a7 6t92fi-f [facility] 14:50:00 14:50:00 Not r Specialties 186-48d3-9 l Covered t04-ghk213 Mi nn 0u7162 2014-09-13 2014-09-13 [facility] [place] 38 071144-8 [facility] 14:50:00 14:50:00 Not r Specialties l6q-4j20-h l Covered 513-1fd1e3 Mi nn 3ecac8 2014-09-13 2014-09-13 [facility] [place] 98 v847bb-1 [facility] 14:50:00 14:50:00 Not r Specialties 760-4eed-a l Covered de8-3eo581 Mi nn 16l444 2014-09-13 2014-09-13 [facility] [place] 78 75f0w7-6 [facility] 14:50:00 14:50:00 Not r Specialties 864-4332-b l Covered 88f-e980e0 Mi nn 9a00cc 2014-09-13 2014-09-13 [facility] [place] 14 v8507r-2 [facility] 14:50:00 14:50:00 Not r Specialties 12d-497d-b l Covered 07d-4p0006 Mi nn m7217t 2014-09-13 2014-09-13 [facility] [place] dc q43k34-m [facility] 14:50:00 14:50:00 Not r Specialties df5-4cb6-a l Covered f1g-93gl45 Mi nn 2bc773 2014-09-13 2014-09-13 [facility] [place] 42 77g00g-6 [facility] 14:50:00 14:50:00 Not r Specialties 644-494e-9 l Covered 901-f366df Mi nn 04z344 2014-09-13 2014-09-13 [facility] [place] 24 5z1pz6-7 [facility] 13:50:00 13:50:00 Not r Specialties 1ea-4b99-a l Covered 4f4-1315vd Mi nn 1i236a 2014-09-13 2014-09-13 [facility] [place] bf 20babf-d [facility] 13:50:00 13:50:00 Not r Specialties 358-458c-8 l Covered j40-0z1v46 Mi nn 307501 5365-07-23 2014-09-13 [facility] [place] a6 3740y9-t [facility] 13:50:00 13:50:00 Not r Specialties t2i-113z-4 l Covered w26-267ln5 Mi nn e6885r 2014-09-13 2014-09-13 [facility] [place] bf 3jur2u-3 [facility] 13:50:00 13:50:00 Not r Specialties y05-2l71-m l Covered aec-f0bdfe Mi nn c556e1 2014-09-13 2014-09-13 [facility] [place] 04 5dcefc-a [facility] 13:50:00 13:50:00 Not r Specialties 7y8-1fyj-z l Covered 99f-98cc71 Mi nn 3d338q 2014-09-13 2014-09-13 [facility] [place] 71 zz28t7-8 [facility] 13:50:00 13:50:00 Not r Specialties 835-41c0-a l Covered 39e-994f40 Mi nn 1af6bf 2014-09-13 2014-09-13 [facility] [place] 92 9772ba-d [facility] 13:50:00 13:50:00 Not r Specialties 7a4-45cd-6 l Covered 78e-f7p606 Mi nn 097d09 2014-09-13 2014-09-13 [facility] [place] c7 dc106p-4 [facility] 13:50:00 13:50:00 Not r Specialties 7r0-361d-k l Covered 55f-i2d479 Mi nn 678622 4196-07-23 2014-09-13 [facility] [place] 87 45b547-6 [facility] 13:50:00 13:50:00 Not r Specialties ddf-4711-9 l Covered e84-73h331 Mi nn e775c9 2014-09-13 2014-09-13 [facility] [place] 82 5b65kw-9 [facility] 13:50:00 13:50:00 Not r Specialties bca-4e59-9 l Covered 299-435de2 Mi nn 2cd1b9 2014-09-13 2014-09-13 [facility] [place] be 559c02-5 [facility] 13:50:00 13:50:00 Not r Specialties 67e-4da3-9 l Covered r90-5650th Mi nn e95dce 2014-09-13 2014-09-13 [facility] [place] e1 47zh03-r [facility] 13:50:00 13:50:00 Not r Specialties 2n1-148t-i l Covered 84e-n9272z Mi nn 08f0e9 2014-09-13 2014-09-13 [facility] [place] 5d h32sg7-p [facility] 13:50:00 13:50:00 Not r Specialties e4x-19h4-7 l Covered 285-18f9ef Mi nn 446c86 2014-09-13 2014-09-13 [facility] [place] b6 cbfce3-0 [facility] 13:50:00 13:50:00 Not r Specialties k8r-0x65-c l Covered 1y4-l39976 Mi nn 9ebdcf 2014-09-13 2014-09-13 [facility] [place] 2d 0o5587-4 [facility] 13:50:00 13:50:00 Not r Specialties h1w-0hrk-0 l Covered h1z-3s26mo Mi nn db0d9a 2014-09-13 2014-09-13 [facility] [place] 84 3102h4-7 [facility] 13:50:00 13:50:00 Not r Specialties 5o1-4j00-b l Covered 576-1b89fd Mi nn 44o603 2014-09-13 2014-09-13 [facility] [place] 49 g96hfd-f [facility] 13:50:00 13:50:00 Not r Specialties 274-4c7a-a l Covered q44-7080uw Mi nn dd54e4 2014-09-13 2014-09-13 [facility] [place] 19 732332-i [facility] 13:50:00 13:50:00 Not r Specialties 6fe-44bf-a l Covered m2c-9h6092 Mi nn c63ac2 2014-09-13 2014-09-13 [facility] [place] 6f 6vr12c-m [facility] 13:50:00 13:50:00 Not r Specialties 69e-4487-9 l Covered 262-32l407 Mi nn m4307e 2014-09-13 2014-09-13 [facility] [place] ff f7kcki-3 [facility] 13:50:00 13:50:00 Not r Specialties 788-492c-9 l Covered g41-7tv67s Mi nn 9tq327 2014-09-13 2014-09-13 [facility] [place] 4b s9p0d7-j [facility] 13:50:00 13:50:00 Not r Specialties 1eb-4978-9 l Covered 187-ff2e7a Mi nn c3adec 2014-09-13 2014-09-13 [facility] [place] 04 o34012-2 [facility] 13:50:00 13:50:00 Not r Specialties y60-8g23-0 l Covered 302-2r5138 Mi nn b84b71 2014-09-13 2014-09-13 [facility] [place] 2b ivt617-3 [facility] 13:50:00 13:50:00 Not r Specialties bf0-4a27-8 l Covered da5-198073 Mi nn 3q105p 2014-09-13 2014-09-13 [facility] [place] 24 2y6hl3-6 [facility] 13:50:00 13:50:00 Not r Specialties 1ea-4b99-a l Covered 4z6-9040ww Mi nn 3w467h 2014-09-13 2014-09-13 [facility] [place] bf 20babf-d [facility] 13:50:00 13:50:00 Not r Specialties 358-458c-8 l Covered d81-7o0g95 Mi nn 548987 8789-07-23 2014-09-13 [facility] [place] a6 2961t1-f [facility] 13:50:00 13:50:00 Not r Specialties q1q-963h-4 l Covered c85-528bi2 Mi nn v9645n 2014-09-13 2014-09-13 [facility] [place] 04 5dcefc-a [facility] 13:50:00 13:50:00 Not r Specialties 1j7-8wfh-f l Covered 99f-98cc71 Mi nn 9x059h 2014-09-13 2014-09-13 [facility] [place] 92 9772ba-d [facility] 13:50:00 13:50:00 Not r Specialties 2z7-69al-8 l Covered 78e-n3y717 Mi nn 097d09 2014-09-13 2014-09-13 [facility] [place] 71 bg83p0-0 [facility] 13:50:00 13:50:00 Not r Specialties 835-41c0-a l Covered 39e-994f40 Mi nn 1af6bf 2014-09-13 2014-09-13 [facility] [place] bf 7gay9a-7 [facility] 13:50:00 13:50:00 Not r Specialties u56-5h99-h l Covered aec-f0bdfe Mi nn c556e1 2014-09-13 2014-09-13 [facility] [place] 82 5y50hx-1 [facility] 13:50:00 13:50:00 Not r Specialties bca-4e59-9 l Covered 299-435de2 Mi nn 2cd1b9 2014-09-13 2014-09-13 [facility] [place] b6 cbfce3-0 [facility] 13:50:00 13:50:00 Not r Specialties c2p-5g09-y l Covered 2v5-e77450 Mi nn 9ebdcf 2014-09-13 2014-09-13 [facility] [place] 5d w59vf7-y [facility] 13:50:00 13:50:00 Not r Specialties y2j-53y5-7 l Covered 285-18f9ef Mi nn 446c86 2014-09-13 2014-09-13 [facility] [place] c7 qb636g-8 [facility] 13:50:00 13:50:00 Not r Specialties 0v3-739s-j l Covered 55f-q2d810 Mi nn 901280 1425-07-23 2014-09-13 [facility] [place] 87 47s098-1 [facility] 13:50:00 13:50:00 Not r Specialties ddf-4711-9 l Covered p49-12o755 Mi nn e775c9 2014-09-13 2014-09-13 [facility] [place] 2d 4p0136-9 [facility] 13:50:00 13:50:00 Not r Specialties l6e-7tll-0 l Covered z9v-8y46ju Mi nn db0d9a 2014-09-13 2014-09-13 [facility] [place] e1 82ni18-b [facility] 13:50:00 13:50:00 Not r Specialties 5r2-016c-c l Covered 84e-o5820a Mi nn 08f0e9 2014-09-13 2014-09-13 [facility] [place] 6f 4co66i-z [facility] 13:50:00 13:50:00 Not r Specialties 69e-4487-9 l Covered 262-33i736 Mi nn l7905b 2014-09-13 2014-09-13 [facility] [place] ff e3ckkz-7 [facility] 13:50:00 13:50:00 Not r Specialties 788-492c-9 l Covered p75-5hi57d Mi nn 6ps510 2014-09-13 2014-09-13 [facility] [place] 4b h0b6t7-s [facility] 13:50:00 13:50:00 Not r Specialties 1eb-4978-9 l Covered 187-ff2e7a Mi nn c3adec 2014-09-13 2014-09-13 [facility] [place] 84 3926p3-1 [facility] 13:50:00 13:50:00 Not r Specialties 7d1-8d81-z l Covered 576-1b89fd Mi nn 32y001 2014-09-13 2014-09-13 [facility] [place] be 126f42-7 [facility] 13:50:00 13:50:00 Not r Specialties 67e-4da3-9 l Covered g87-7075xy Mi nn e95dce 2014-09-13 2014-09-13 [facility] [place] 04 u06694-6 [facility] 13:50:00 13:50:00 Not r Specialties o25-0k58-6 l Covered 302-1m1945 Mi nn b84b71 2014-09-13 2014-09-13 [facility] [place] 49 d19nge-y [facility] 13:50:00 13:50:00 Not r Specialties 274-4c7a-a l Covered v87-5928wi Mi nn dd54e4 2014-09-13 2014-09-13 [facility] [place] 19 374536-x [facility] 13:50:00 13:50:00 Not r Specialties 6fe-44bf-a l Covered c6p-1m5281 Mi nn c63ac2 2014-09-13 2014-09-13 [facility] [place] 2b mjg234-4 [facility] 13:50:00 13:50:00 Not r Specialties bf0-4a27-8 l Covered da5-453420 Mi nn 3z953b 2014-09-13 2014-09-13 [facility] [place] 3501 59 eClinic 08:50:00 08:50:00 [facility] es 2014-09-12 2014-09-12 [facility] [place] a6192 612-6 [facility] 14:45:00 14:45:00 Results r Specialties 39f-44c1-8 l 9cc-8194c1 Mi nn 5b91fd 2014-09-12 2014-09-12 [facility] [place] ef90a 583-2 [facility] 14:45:00 14:45:00 Results r Specialties k02-4143-3 l p3v-zpf0n1 Mi nn da83fb 2014-09-12 2014-09-12 [facility] [place] e7a68 1e4-e [facility] 14:45:00 14:45:00 Results r Specialties h47-34fj-m l cf2-75adee Mi nn f131e5 2014-09-12 2014-09-12 [facility] [place] 5fb4b 50f-4 [facility] 14:45:00 14:45:00 Results r Specialties 4s2-102n-v l dc4-3edce9 Mi nn 0b7086 2014-09-12 2014-09-12 [facility] [place] 5218e 600-b [facility] 14:45:00 14:45:00 Results r Specialties fa1-4efd-9 l m24-454d05 Mi nn lv735g 2014-09-12 2014-09-12 [facility] [place] 00b21 762-d [facility] 14:45:00 14:45:00 Results r Specialties 168-4a17-b l cfe-4dbc1b Mi nn d181e2 2014-09-12 2014-09-12 [facility] [place] d1265 4ee-3 [facility] 14:45:00 14:45:00 Results r Specialties fa8-4b9f-8 l 466-740d80 Mi nn z3720g 2014-09-12 2014-09-12 [facility] [place] 67dc8 32d-f [facility] 14:45:00 14:45:00 Results r Specialties o0c-2341-h l t67-023661 Mi nn 0e0b5a 2014-09-12 2014-09-12 [facility] [place] 385db ac6-e [facility] 14:45:00 14:45:00 Results r Specialties 762-4440-9 l 533-4l657c Mi nn 32440f 2014-09-12 2014-09-12 [facility] [place] e69af 3c9-b [facility] 14:45:00 14:45:00 Results r Specialties 8n2-40y5-l l 1ec-1baa1a Mi nn fkd688 2014-09-12 2014-09-12 [facility] [place] cbc71 28b-8 [facility] 14:45:00 14:45:00 Results r Specialties 89e-4aae-9 l 0dc-09b0c6 Mi nn 9302c3 2014-09-12 2014-09-12 [facility] [place] ac089 c60-7 [facility] 14:45:00 14:45:00 Results r Specialties 2cb-46f2-9 l a6l-291v6z Mi nn c7c4e8 2014-09-12 2014-09-12 [facility] [place] ccdc9 559-0 [facility] 14:45:00 14:45:00 Results r Specialties 47e-4e43-b l l7t-0z19e5 Mi nn 2cb5b6 2014-09-12 2014-09-12 [facility] [place] 2c202 e05-0 [facility] 14:45:00 14:45:00 Results r Specialties 290-4cc0-8 l 508-7c70bd Mi nn 7f4a0e 2014-09-12 2014-09-12 [facility] [place] aadb8 073-f [facility] 14:45:00 14:45:00 Results r Specialties aaf-44e4-9 l 698-5ec49b Mi nn c6ed13 2014-09-12 2014-09-12 [facility] [place] f1a7b de3-a [facility] 14:45:00 14:45:00 Results r Specialties 6df-4a31-9 l 045-h9c189 Mi nn 1h6865 2014-09-12 2014-09-12 [facility] [place] dc594 d1c-c [facility] 14:45:00 14:45:00 Results r Specialties f6u-9629-3 l 438-2sh792 Mi nn 7ua686 2014-09-12 2014-09-12 [facility] [place] 4b68f ef2-1 [facility] 14:45:00 14:45:00 Results r Specialties z72-8ft9-b l l81-2cy5m0 Mi nn fcbc4d 2014-09-12 2014-09-12 [facility] [place] 3cc09 153-c [facility] 14:45:00 14:45:00 Results r Specialties 448-4a34-b l 86b-4i341q Mi nn ce2d82 2014-09-12 2014-09-12 [facility] [place] 7e699 03d-7 [facility] 14:45:00 14:45:00 Results r Specialties bc2-4df4-a l 0q6-j8408w Mi nn i8881w 2014-09-12 2014-09-12 [facility] [place] a99bf 471-7 [facility] 14:45:00 14:45:00 Results r Specialties 11a-4e4a-8 l 1i0-619101 Mi nn fb2a00 2014-09-12 2014-09-12 [facility] [place] 491bd e2d-0 [facility] 14:45:00 14:45:00 Results r Specialties 07b-40f1-b l b71-175281 Mi nn 0t295p 2014-09-12 2014-09-12 [facility] [place] 21e23 36c-0 [facility] 14:45:00 14:45:00 Results r Specialties 1v2-4639-0 l w90-82w842 Mi nn 6ec7ee 2014-09-12 2014-09-12 [facility] [place] e7a68 1e4-e [facility] 14:45:00 14:45:00 Results r Specialties t23-05ug-k l cf2-75adee Mi nn f131e5 2014-09-12 2014-09-12 [facility] [place] a6192 612-6 [facility] 14:45:00 14:45:00 Results r Specialties 39f-44c1-8 l 9cc-8194c1 Mi nn 5b91fd 2014-09-12 2014-09-12 [facility] [place] 67dc8 32d-f [facility] 14:45:00 14:45:00 Results r Specialties y7n-0728-b l r08-753007 Mi nn 0e0b5a 2014-09-12 2014-09-12 [facility] [place] d1265 4ee-3 [facility] 14:45:00 14:45:00 Results r Specialties fa8-4b9f-8 l 466-740d80 Mi nn a7108g 2014-09-12 2014-09-12 [facility] [place] ef90a 583-2 [facility] 14:45:00 14:45:00 Results r Specialties l75-7187-1 l k8i-qxe1o5 Mi nn da83fb 2014-09-12 2014-09-12 [facility] [place] 385db ac6-e [facility] 14:45:00 14:45:00 Results r Specialties 762-4440-9 l 533-2j931a Mi nn 89941s 2014-09-12 2014-09-12 [facility] [place] 5218e 600-b [facility] 14:45:00 14:45:00 Results r Specialties fa1-4efd-9 l n99-914j30 Mi nn mz692a 2014-09-12 2014-09-12 [facility] [place] 5fb4b 50f-4 [facility] 14:45:00 14:45:00 Results r Specialties 2e2-009x-e l dc4-3edce9 Mi nn 3u1039 2014-09-12 2014-09-12 [facility] [place] 00b21 762-d [facility] 14:45:00 14:45:00 Results r Specialties 168-4a17-b l cfe-4dbc1b Mi nn d181e2 2014-09-12 2014-09-12 [facility] [place] e69af 3c9-b [facility] 14:45:00 14:45:00 Results r Specialties 6x6-46a2-g l 1ec-1baa1a Mi nn sxr113 2014-09-12 2014-09-12 [facility] [place] f1a7b de3-a [facility] 14:45:00 14:45:00 Results r Specialties 6df-4a31-9 l 045-q2p844 Mi nn 6l7692 2014-09-12 2014-09-12 [facility] [place] ccdc9 559-0 [facility] 14:45:00 14:45:00 Results r Specialties 47e-4e43-b l x0l-6j39p4 Mi nn 2cb5b6 2014-09-12 2014-09-12 [facility] [place] 4b68f ef2-1 [facility] 14:45:00 14:45:00 Results r Specialties i97-3mu2-f l g56-5ml3q2 Mi nn fcbc4d 2014-09-12 2014-09-12 [facility] [place] 2c202 e05-0 [facility] 14:45:00 14:45:00 Results r Specialties 290-4cc0-8 l 508-7c70bd Mi nn 7f4a0e 2014-09-12 2014-09-12 [facility] [place] ac089 c60-7 [facility] 14:45:00 14:45:00 Results r Specialties 2cb-46f2-9 l e6i-286k0s Mi nn c7c4e8 2014-09-12 2014-09-12 [facility] [place] aadb8 073-f [facility] 14:45:00 14:45:00 Results r Specialties aaf-44e4-9 l 698-5ec49b Mi nn c6ed13 2014-09-12 2014-09-12 [facility] [place] a99bf 471-7 [facility] 14:45:00 14:45:00 Results r Specialties 11a-4e4a-8 l 1g8-609735 Mi nn fb2a00 2014-09-12 2014-09-12 [facility] [place] 3cc09 153-c [facility] 14:45:00 14:45:00 Results r Specialties 448-4a34-b l 86b-0k432i Mi nn ce2d82 2014-09-12 2014-09-12 [facility] [place] dc594 d1c-c [facility] 14:45:00 14:45:00 Results r Specialties t4a-0402-2 l 438-4wf721 Mi nn 0qx303 2014-09-12 2014-09-12 [facility] [place] cbc71 28b-8 [facility] 14:45:00 14:45:00 Results r Specialties 89e-4aae-9 l 0dc-09b0c6 Mi nn 9302c3 2014-09-12 2014-09-12 [facility] [place] 7e699 03d-7 [facility] 14:45:00 14:45:00 Results r Specialties bc2-4df4-a l 5o3-b7461d Mi nn n0834d 2014-09-12 2014-09-12 [facility] [place] 21e23 36c-0 [facility] 14:45:00 14:45:00 Results r Specialties 9h7-3085-7 l w12-66t174 Mi nn 6ec7ee 2014-09-12 2014-09-12 [facility] [place] 491bd e2d-0 [facility] 14:45:00 14:45:00 Results r Specialties 07b-40f1-b l t26-637639 Mi nn 5y671g 2014-09-12 2014-09-12 [facility] [place] 9cb66 e2c-8 [facility] 13:45:00 13:45:00 Results r Specialties 37d-46cb-a l d40-y96n62 Mi nn b9ce0a 2014-09-12 2014-09-12 [facility] [place] 3e023 750-5 [facility] 13:45:00 13:45:00 Results r Specialties 4o5-0t4p-p l 6ef-115781 Mi nn 6u9883 2014-09-12 2014-09-12 [facility] [place] 4487b 804-5 [facility] 13:45:00 13:45:00 Results r Specialties 8o0-77up-6 l 4ca-6fd3d7 Mi nn xr7077 2014-09-12 2014-09-12 [facility] [place] 2310e 209-1 [facility] 13:45:00 13:45:00 Results r Specialties r83-2xb3-5 l i23-49i2j3 Mi nn 3a6b3b 2014-09-12 2014-09-12 [facility] [place] 1d88b 56b-d [facility] 13:45:00 13:45:00 Results r Specialties 5v9-0545-x l 61a-71ce16 Mi nn 6b9bc0 2014-09-12 2014-09-12 [facility] [place] c9d39 872-7 [facility] 13:45:00 13:45:00 Results r Specialties 680-4681-8 l s6d-43h9f1 Mi nn 4e9ba4 2014-09-12 2014-09-12 [facility] [place] f79c7 b35-8 [facility] 13:45:00 13:45:00 Results r Specialties 101-4c60-b l 31f-9febe9 Mi nn 1j7671 2014-09-12 2014-09-12 [facility] [place] 18053 ce8-a [facility] 13:45:00 13:45:00 Results r Specialties 182-4f7d-8 l d4h-7i6r21 Mi nn 3o6874 2014-09-12 2014-09-12 [facility] [place] b64ec 379-6 [facility] 13:45:00 13:45:00 Results r Specialties 8ff-4e41-9 l 0b1-df947l Mi nn 185356 0029-07-22 2014-09-12 [facility] [place] 535fd 913-0 [facility] 13:45:00 13:45:00 Results r Specialties 189-4dbe-9 l 997-6l4543 Mi nn 96c71c 2014-09-12 2014-09-12 [facility] [place] 4d89f 51d-0 [facility] 13:45:00 13:45:00 Results r Specialties f1d-84k3-8 l u4b-o076h5 Mi nn 68673x 2014-09-12 2014-09-12 [facility] [place] 138b9 b3b-5 [facility] 13:45:00 13:45:00 Results r Specialties 04a-40d1-b l 2o7-yg73g0 Mi nn 1ac4e8 2014-09-12 2014-09-12 [facility] [place] 5ff63 ba1-4 [facility] 13:45:00 13:45:00 Results r Specialties f24-045u-3 l be1-6d4bff Mi nn 4cf4a4 2014-09-12 2014-09-12 [facility] [place] 78193 437-9 [facility] 13:45:00 13:45:00 Results r Specialties 0e4-4b0y-7 l 157-ec22d2 Mi nn 0k312l 2014-09-12 2014-09-12 [facility] [place] 9d6d3 071-7 [facility] 13:45:00 13:45:00 Results r Specialties ee2-4be5-a l 805-ecfecd Mi nn 04b25f 2014-09-12 2014-09-12 [facility] [place] 770fc 89d-a [facility] 13:45:00 13:45:00 Results r Specialties 3f7-2pa5-0 l r9e-r14k36 Mi nn k44500 2014-09-12 2014-09-12 [facility] [place] ee31b 86e-b [facility] 13:45:00 13:45:00 Results r Specialties 153-4846-b l 830-m98363 Mi nn 171eb3 2014-09-12 2014-09-12 [facility] [place] 31ce9 e2a-3 [facility] 13:45:00 13:45:00 Results r Specialties 171-4b03-b l x2v-v0w6is Mi nn 240455 0794-07-22 2014-09-12 [facility] [place] 910ca 874-a [facility] 13:45:00 13:45:00 Results r Specialties 7r5-0c61-r l 64e-113dd2 Mi nn 80l461 2014-09-12 2014-09-12 [facility] [place] 40e3e 6f6-d [facility] 13:45:00 13:45:00 Results r Specialties ad4-4117-b l fff-570b94 Mi nn 1fceb5 2014-09-12 2014-09-12 [facility] [place] 44761 fc8-6 [facility] 13:45:00 13:45:00 Results r Specialties 922-4fc1-9 l 9t5-2515b2 Mi nn 39l133 2014-09-12 2014-09-12 [facility] [place] cf672 3af-b [facility] 13:45:00 13:45:00 Results r Specialties 831-4794-8 l 005-4fe27a Mi nn 7b8b29 2014-09-12 2014-09-12 [facility] [place] ab529 ec4-3 [facility] 13:45:00 13:45:00 Results r Specialties v30-0853-2 l q76-9z3od2 Mi nn 3a9ea0 2014-09-12 2014-09-12 [facility] [place] 9cb66 e2c-8 [facility] 13:45:00 13:45:00 Results r Specialties 37d-46cb-a l b84-i37c47 Mi nn b9ce0a 2014-09-12 2014-09-12 [facility] [place] 3e023 750-5 [facility] 13:45:00 13:45:00 Results r Specialties 0c1-7w0f-u l 6ef-404858 Mi nn 6a5058 2014-09-12 2014-09-12 [facility] [place] 4487b 804-5 [facility] 13:45:00 13:45:00 Results r Specialties 4b6-63yc-3 l 4ca-6fd3d7 Mi nn fv8198 2014-09-12 2014-09-12 [facility] [place] 1d88b 56b-d [facility] 13:45:00 13:45:00 Results r Specialties 9g9-3686-t l 61a-71ce16 Mi nn 6b9bc0 2014-09-12 2014-09-12 [facility] [place] f79c7 b35-8 [facility] 13:45:00 13:45:00 Results r Specialties 101-4c60-b l 31f-9febe9 Mi nn 8k3534 2014-09-12 2014-09-12 [facility] [place] c9d39 872-7 [facility] 13:45:00 13:45:00 Results r Specialties 680-4681-8 l u0w-95r1v0 Mi nn 4e9ba4 2014-09-12 2014-09-12 [facility] [place] 2310e 209-1 [facility] 13:45:00 13:45:00 Results r Specialties b11-4eo1-0 l h97-14s7w6 Mi nn 3a6b3b 2014-09-12 2014-09-12 [facility] [place] 535fd 913-0 [facility] 13:45:00 13:45:00 Results r Specialties 189-4dbe-9 l 997-3o4735 Mi nn 96c71c 2014-09-12 2014-09-12 [facility] [place] 99296 437-9 [facility] 13:45:00 13:45:00 Results r Specialties 4k8-3c6r-8 l 157-ec22d2 Mi nn 2e815y 2014-09-12 2014-09-12 [facility] [place] 5ff63 ba1-4 [facility] 13:45:00 13:45:00 Results r Specialties g83-606o-5 l be1-6d4bff Mi nn 4cf4a4 2014-09-12 2014-09-12 [facility] [place] [address] ce8-a [facility] 13:45:00 13:45:00 Results r Specialties 182-4f7d-8 l k3b-4c2i54 Mi nn 8b7928 2014-09-12 2014-09-12 [facility] [place] b64ec 379-6 [facility] 13:45:00 13:45:00 Results r Specialties 8ff-4e41-9 l 7n9-qw368d Mi nn 154134 5535-07-22 2014-09-12 [facility] [place] 9d6d3 071-7 [facility] 13:45:00 13:45:00 Results r Specialties ee2-4be5-a l 805-ecfecd Mi nn 04b25f 2014-09-12 2014-09-12 [facility] [place] 138b9 b3b-5 [facility] 13:45:00 13:45:00 Results r Specialties 04a-40d1-b l 9e4-mg70e9 Mi nn 1ac4e8 2014-09-12 2014-09-12 [facility] [place] 910ca 874-a [facility] 13:45:00 13:45:00 Results r Specialties 2j5-1l24-n l 64e-113dd2 Mi nn 33f537 2014-09-12 2014-09-12 [facility] [place] 40e3e 6f6-d [facility] 13:45:00 13:45:00 Results r Specialties ad4-4117-b l fff-570b94 Mi nn 1fceb5 2014-09-12 2014-09-12 [facility] [place] 72512 fc8-6 [facility] 13:45:00 13:45:00 Results r Specialties 922-4fc1-9 l 3e0-1527c9 Mi nn 62n797 2014-09-12 2014-09-12 [facility] [place] 770fc 89d-a [facility] 13:45:00 13:45:00 Results r Specialties 5q8-6ux7-6 l k7o-h07h88 Mi nn b66443 2014-09-12 2014-09-12 [facility] [place] 4d89f 51d-0 [facility] 13:45:00 13:45:00 Results r Specialties r0k-15c7-3 l u4w-h382e7 Mi nn 17436b 2014-09-12 2014-09-12 [facility] [place] cf672 3af-b [facility] 13:45:00 13:45:00 Results r Specialties 831-4794-8 l 005-4fe27a Mi nn 7b8b29 2014-09-12 2014-09-12 [facility] [place] ee31b 86e-b [facility] 13:45:00 13:45:00 Results r Specialties 153-4846-b l 830-k16621 Mi nn 171eb3 2014-09-12 2014-09-12 [facility] [place] 31ce9 e2a-3 [facility] 13:45:00 13:45:00 Results r Specialties 171-4b03-b l l9k-n8d4wt Mi nn 824546 9284-07-22 2014-09-12 [facility] [place] ab529 ec4-3 [facility] 13:45:00 13:45:00 Results r Specialties a54-7590-1 l i55-1j2by0 Mi nn 3a9ea0 2014-09-12 2014-09-12 Outpatient [facility] [place] 3495 76 [facility]inic 08:45:00 08:45:00 [facility] es 2014-09-05 2014-09-05 Additional null[facility] [place] 6e u860h8-5 [facility] 14:04:00 14:04:00 Imaging r Specialties 437-4c0b-9 l Needed 429-1c4061 Mi nn e587db 2014-09-05 2014-09-05 Additional null[facility] [place] 47 0770h4-5 [facility] 14:04:00 14:04:00 Imaging r Specialties 98c-4efc-b l Needed i0c-002169 Mi nn 8f8ae7 2014-09-05 2014-09-05 Additional [facility] [place] 8c mo7mk8-0 [facility] 14:04:00 14:04:00 Imaging r Specialties 159-4c01-a l Needed 38e-480756 Mi nn aaea09 2014-09-05 2014-09-05 Additional null[facility] [place] 85 15636x-8 [facility] 14:04:00 14:04:00 Imaging r Specialties 7l3-57p9-5 l Needed 87f-9l2625 Mi nn 7a8309 2014-09-05 2014-09-05 Additional [facility] [place] 28 66f3ww-4 [facility] 14:04:00 14:04:00 Imaging r Specialties f4f-2xa7-7 l Needed 716-bcc8e8 Mi nn 38a5c1 2014-09-05 2014-09-05 Additional [facility] [place] 73 53xr0x-7 [facility] 14:04:00 14:04:00 Imaging r Specialties 3f8-5426-0 l Needed 4b0-10cd3z Mi nn 54fa0b 2014-09-05 2014-09-05 Additional [facility] [place] 9d 85y48k-2 [facility] 14:04:00 14:04:00 Imaging r Specialties 54d-450c-a l Needed 49e-85ec73 Mi nn 2cc2fd 2014-09-05 2014-09-05 Additional [facility] [place] 91 233e48-5 [facility] 14:04:00 14:04:00 Imaging r Specialties 3s1-7k68-2 l Needed 189-aad5f7 Mi nn 6b58f0 2014-09-05 2014-09-05 Additional nullFl[facility] [place] 64 54926y-6 [facility] 14:04:00 14:04:00 Imaging r Specialties a90-0506-o l Needed 9p5-1851y4 Mi nn 531e05 2014-09-05 2014-09-05 Additional nullFlavo [place] 35 97k447-2 [facility] 14:04:00 14:04:00 [facility] Special[facility] 61e-40f7-9 l Needed q26-7q5dzq Mi nn 87a4f5 2014-09-05 2014-09-05 Additional nullFlavo [place] 4f 22x133-w [facility] 14:04:00 14:04:00 Imaging [facility] Specialties 38d-40cb-8 l Needed 9z3-5609qo Mi nn 263c0d 2014-09-05 2014-09-05 Additional nullFlavo [place] bd 0s47x1-9 [facility] 14:04:00 14:04:00 Imaging [facility] Special[facility] 969-4f6d-b l Needed cc9-d6f76d Mi nn af20f4 2014-09-05 2014-09-05 Additional nullFlavo [place] 88 332o27-m [facility] 14:04:00 14:04:00 Imaging r Specialties 1t3-7362-r l Needed f5e-4845r1 Mi nn 3a124e 2014-09-05 2014-09-05 Additional nullFlavo [place] 29 8o37c2-5 [facility] 14:04:00 14:04:00 Imaging r Specialties shaji-4483-b l Needed 3g2-bp7u06 Mi nn [id number] 2014-09-05 2014-09-05 Additional nullFlavo [place] e4 8xh118-4 [facility] 14:04:00 14:04:00 Imaging r Specialties 1u5-047e-w l Needed amanuel-1y506g Mi nn 3ad29f 2014-09-05 2014-09-05 Additional nullFlavo [place] 53 20y995-5 [facility] 14:04:00 14:04:00 Imaging r Specialties 011-442f-b l Needed 76d-24229y Mi nn 88431f 2014-09-05 2014-09-05 Additional nullFlavo [place] f6 17f0t0-5 [facility] 14:04:00 14:04:00 Imaging r Specialties df5-4e8a-b l Needed 86b-ae9e97 Mi nn xr4842 2014-09-05 2014-09-05 Additional nullFlavo [place] 6d s0lh7w-8 [facility] 14:04:00 14:04:00 Imaging r Specialties 8aa-48df-9 l Needed db0-477c93 Mi nn cw5451 2014-09-05 2014-09-05 Additional nullFlavo [place] 63 86n588-6 [facility] 14:04:00 14:04:00 Imaging r Specialties 1w6-0t47-g l Needed 506-8i5319 Mi nn 0n3000 2014-09-05 2014-09-05 Additional nullFlavo [place] aa 592eed-b [facility] 14:04:00 14:04:00 Imaging r Specialties 525-440f-8 l Needed o67-l96hn0 Mi nn 03e2fd 2014-09-05 2014-09-05 Additional nullFlavo [place] 0a 0377e6-5 [facility] 14:04:00 14:04:00 Imaging r Specialties ae0-4e89-9 l Needed 705-232601 Mi nn 54v687 2014-09-05 2014-09-05 Additional nullFlavo [place] 51 ci51tg-w [facility] 14:04:00 14:04:00 Imaging r Specialties 208-4023-b l Needed h26-9j0pe5 Mi nn bfc6dc 2014-09-05 2014-09-05 Additional nullFlavo [place] 3d g030e8-7 [facility] 14:04:00 14:04:00 Imaging r Specialties 0e5-2bd1-r l Needed 1q6-294j69 Mi nn e423e8 2014-09-05 2014-09-05 Additional nullFlavo [place] 8c sx2zf1-4 [facility] 14:04:00 14:04:00 Imaging r Specialties 159-4c01-a l Needed 38e-297812 Mi nn aaea09 2014-09-05 2014-09-05 Additional nullFlavo [place] 6e m185w3-5 [facility] 14:04:00 14:04:00 Imaging r Specialties 437-4c0b-9 l Needed 429-0r4857 Mi nn e587db 2014-09-05 2014-09-05 Additional nullFlavo [place] 91 292b35-8 [facility] 14:04:00 14:04:00 Imaging r Specialties 1p6-1f71-2 l Needed 189-aad5f7 Mi nn 6b58f0 2014-09-05 2014-09-05 Additional nullFlavo [place] 9d 10s61k-5 [facility] 14:04:00 14:04:00 Imaging r Specialties 54d-450c-a l Needed 49e-85ec73 Mi nn 2cc2fd 2014-09-05 2014-09-05 Additional nullFlavo [place] 47 4747a6-2 [facility] 14:04:00 14:04:00 Imaging r Specialties 98c-4efc-b l Needed w3q-002286 Mi nn 8f8ae7 2014-09-05 2014-09-05 Additional nullFlavo [place] 64 59946c-8 [facility] 14:04:00 14:04:00 Imaging r Specialties y46-3223-d l Needed 0c1-2714q6 Mi nn 531e05 2014-09-05 2014-09-05 Additional nullFlavo [place] 28 24c6ab-2 [facility] 14:04:00 14:04:00 Imaging r Specialties d6x-3gi9-6 l Needed 716-bcc8e8 Mi nn 38a5c1 2014-09-05 2014-09-05 Additional nullFlavo [place] 85 66520r-4 [facility] 14:04:00 14:04:00 Imaging r Specialties 9q4-86p5-0 l Needed 87f-9n7919 Mi nn 2w4072 2014-09-05 2014-09-05 Additional nullFlavo [place] 73 71vx4d-1 [facility] 14:04:00 14:04:00 Imaging r Specialties 6j3-9931-5 l Needed 9r9-66yi9g Mi nn 54fa0b 2014-09-05 2014-09-05 Additional nullFlavo [place] 35 20n405-6 [facility] 14:04:00 14:04:00 Imaging r Specialties 61e-40f7-9 l Needed j64-5l1ege Mi nn 87a4f5 2014-09-05 2014-09-05 Additional nullFlavo [place] 53 18t271-4 [facility] 14:04:00 14:04:00 Imaging r Specialties 011-442f-b l Needed 76d-35254n Mi nn 80191b 2014-09-05 2014-09-05 Additional nullFlavo [place] 88 370y63-p [facility] 14:04:00 14:04:00 Imaging r Specialties 4n9-7889-t l Needed k8m-6443q3 Mi nn 9a734p 2014-09-05 2014-09-05 Additional nullFlavo [place] 6d q2qp1y-6 [facility] 14:04:00 14:04:00 Imaging r Specialties 8aa-48df-9 l Needed db0-477c93 Mi nn zi1379 2014-09-05 2014-09-05 Additional nullFlavo [place] 29 7n38c9-6 [facility] 14:04:00 14:04:00 Imaging r Specialties shaji-4483-b l Needed 0i4-dp1c86 Mi nn e40255 2014-09-05 2014-09-05 Additional nullFlavo [place] bd 9o10u8-4 [facility] 14:04:00 14:04:00 Imaging r Specialties 969-4f6d-b l Needed cc9-d6f76d Mi nn af20f4 2014-09-05 2014-09-05 Additional nullFlavo [place] e4 9sf419-0 [facility] 14:04:00 14:04:00 Imaging r Specialties 4m3-129t-g l Needed amanuel-6e783f Mi nn 3ad29f 2014-09-05 2014-09-05 Additional nullFlavo [place] 0a 5493o8-4 [facility] 14:04:00 14:04:00 Imaging r Specialties ae0-4e89-9 l Needed 705-108714 Mi nn 79h565 2014-09-05 2014-09-05 Additional nullFlavo [place] 63 12e515-1 [facility] 14:04:00 14:04:00 Imaging r Specialties 7z5-6y18-c l Needed 506-4f5471 Mi nn 9f1078 2014-09-05 2014-09-05 Additional nullFlavo [place] f6 65c9n0-0 [facility] 14:04:00 14:04:00 Imaging r Specialties df5-4e8a-b l Needed 86b-ae9e97 Mi nn tp5266 2014-09-05 2014-09-05 Additional nullFlavo [place] 4f 33l305-g [facility] 14:04:00 14:04:00 Imaging r Specialties 38d-40cb-8 l Needed 8o6-7824ox Mi nn 263c0d 2014-09-05 2014-09-05 Additional nullFl[facility] [place] aa 592eed-b [facility] 14:04:00 14:04:00 Imaging r Specialties 525-440f-8 l Needed r85-z86bz6 Mi nn 03e2fd 2014-09-05 2014-09-05 Additional nullFlavo [place] 3d g582y4-7 [facility] 14:04:00 14:04:00 Imaging r Specialties 1w2-2iq1-r l Needed 3j6-669t12 Mi nn e423e8 2014-09-05 2014-09-05 Additional nullFlavo [place] 51 dw58aq-x [facility] 14:04:00 14:04:00 Imaging r Specialties 208-4023-b l Needed y15-2b3pw5 Mi nn bfc6dc 2014-09-05 2014-09-05 Additional nullFlavo [place] 52 3x507b-s [facility] 13:04:00 13:04:00 Imaging r Specialties r8t-84yy-5 l Needed z16-2gkae1 Mi nn 177cad 2014-09-05 2014-09-05 Additional nullFlavo [place] f2 9z67j7-9 [facility] 13:04:00 13:04:00 Imaging r Specialties 2s0-7648-2 l Needed 59b-86ab95 Mi nn beab91 2014-09-05 2014-09-05 Additional nullFlavo [place] 09 74b7u6-h [facility] 13:04:00 13:04:00 Imaging r Specialties 33a-4d89-8 l Needed e27-0zia88 Mi nn 66dd3e 2014-09-05 2014-09-05 Additional nullFlavo [place] c4 ze1180-8 [facility] 13:04:00 13:04:00 Imaging r Specialties a36-4i31-r l Needed i86-373q14 Mi nn 664dcb 2014-09-05 2014-09-05 Additional nullFlavo [place] 3b 73bjj7-9 [facility] 13:04:00 13:04:00 Imaging r Specialties 283-4d1f-8 l Needed dc0-07bad6 Mi nn 09868e 2014-09-05 2014-09-05 Additional nullFlavo [place] 61 893g66-8 [facility] 13:04:00 13:04:00 Imaging r Specialties db3-4104-b l Needed 36d-657059 Mi nn 342b0b 2014-09-05 2014-09-05 Additional nullFlavo [place] 42 51gp0n-3 [facility] 13:04:00 13:04:00 Imaging r Specialties fdd-47e6-b l Needed 4s8-24vg57 Mi nn 4d32cb 2014-09-05 2014-09-05 Additional nullFlavo [place] 64 2td4r3-3 [facility] 13:04:00 13:04:00 Imaging r Specialties 3m0-9n7y-5 l Needed 059-e3fad4 Mi nn c6070n 2014-09-05 2014-09-05 Additional nullFlavo [place] 45 74n791-1 [facility] 13:04:00 13:04:00 Imaging r Specialties 58e-4350-8 l Needed 23c-b02808 Mi nn 04b5de 2014-09-05 2014-09-05 Additional nullFlavo [place] 61 zf1414-y [facility] 13:04:00 13:04:00 Imaging r Specialties r29-79v4-s l Needed e7m-p32r02 Mi nn d34d4c 2014-09-05 2014-09-05 Additional nullFl[facility] [place] fc y0zyc6-w [facility] 13:04:00 13:04:00 Imaging r Specialties 114-4599-9 l Needed 4bf-fa49ff Mi nn 41eae1 2014-09-05 2014-09-05 Additional nullFlavo [place] e0 228t8i-9 [facility] 13:04:00 13:04:00 Imaging r Specialties u48-4820-o l Needed 976-4570f0 Mi nn f39f2d 2014-09-05 2014-09-05 Additional nullFlavo [place] 3a 4sl74c-p [facility] 13:04:00 13:04:00 Imaging r Specialties d36-33w6-1 l Needed ded-4q9201 Mi nn e52bcd 2014-09-05 2014-09-05 Additional nullFlavo [place] 12 cx8kb3-u [facility] 13:04:00 13:04:00 Imaging r Specialties 02a-4139-b l Needed 498-a9eb4b Mi nn 7a6fee 2014-09-05 2014-09-05 Additional nullFlavo [place] 11 xex970-9 [facility] 13:04:00 13:04:00 Imaging r Specialties 2y1-5875-s l Needed m68-07p00n Mi nn e388cf 2014-09-05 2014-09-05 Additional nullFlavo [place] 46 7632b4-m [facility] 13:04:00 13:04:00 Imaging r Specialties cc2-4687-b l Needed 335-ee25ee Mi nn 80f2ee 2014-09-05 2014-09-05 Additional nullFlavo [place] f4 0a7f8c-3 [facility] 13:04:00 13:04:00 Imaging r Specialties 66c-4eff-b l Needed bf6-53a26d Mi nn 888132 2899-07-15 2014-09-05 Additional nullFlavo [place] c8 qk7056-o [facility] 13:04:00 13:04:00 Imaging r Specialties 550-4a52-a l Needed 15f-0b4ddf Mi nn 763955 0506-07-15 2014-09-05 Additional nullFlavo [place] 6e xxtv1y-3 [facility] 13:04:00 13:04:00 Imaging r Specialties 720-4006-9 l Needed 124-63be20 Mi nn f65bec 2014-09-05 2014-09-05 Additional nullFlavo [place] 96 y6767q-k [facility] 13:04:00 13:04:00 Imaging r Specialties 9z1-2ohi-0 l Needed 24e-0677cf Mi nn ca1a33 2014-09-05 2014-09-05 Additional nullFlavo [place] 33 61190q-f [facility] 13:04:00 13:04:00 Imaging r Specialties 0i9-5870-9 l Needed 3m7- Mi nn 45086y 2014-09-05 2014-09-05 Additional nullFl[facility] [place] bd u87p99-g [facility] 13:04:00 13:04:00 Imaging r Specialties 574-4960-8 l Needed q86-8j5d94 Mi nn 5ff8eb 2014-09-05 2014-09-05 Additional nullFlavo [place] cf 8rt427-p [facility] 13:04:00 13:04:00 Imaging r Specialties 745-4534-9 l Needed da3-54ff0f Mi nn 319ffe 2014-09-05 2014-09-05 Additional nullFlavo [place] 4f 90b929-4 [facility] 13:04:00 13:04:00 Imaging r Specialties 59e-4733-8 l Needed 455-49b98e Mi nn 0b61b6 2014-09-05 2014-09-05 Additional nullFlavo [place] f2 4q64x5-9 [facility] 13:04:00 13:04:00 Imaging r Specialties 8e0-6616-7 l Needed 59b-86ab95 Mi nn beab91 2014-09-05 2014-09-05 Additional nullFlavo [place] 52 0r098y-q [facility] 13:04:00 13:04:00 Imaging r Specialties v7k-78xq-9 l Needed t15-0auiu4 Mi nn 177cad 2014-09-05 2014-09-05 Additional nullFlavo [place] 09 75b1y0-r [facility] 13:04:00 13:04:00 Imaging r Specialties 33a-4d89-8 l Needed x50-2opj63 Mi nn 66dd3e 2014-09-05 2014-09-05 Additional nullFlavo [place] c4 of0917-5 [facility] 13:04:00 13:04:00 Imaging r Specialties q29-5g75-d l Needed w56-996e99 Mi nn 664dcb 2014-09-05 2014-09-05 Additional nullFlavo [place] 61 529c20-2 [facility] 13:04:00 13:04:00 Imaging r Specialties db3-4104-b l Needed 36d-390031 Mi nn 342b0b 2014-09-05 2014-09-05 Additional nullFlavo [place] 64 7ha3w5-0 [facility] 13:04:00 13:04:00 Imaging r Specialties 4s7-9v8y-0 l Needed 059-e3fad4 Mi nn u6552g 2014-09-05 2014-09-05 Additional nullFlavo [place] 42 40el8z-7 [facility] 13:04:00 13:04:00 Imaging r Specialties fdd-47e6-b l Needed 6x5-82uu08 Mi nn 4d32cb 2014-09-05 2014-09-05 Additional nullFlavo [place] 3b 62zfy2-4 [facility] 13:04:00 13:04:00 Imaging r Specialties 283-4d1f-8 l Needed dc0-07bad6 Mi nn 21701t 2014-09-05 2014-09-05 Additional nullFlavo [place] fc p8kuh8-i [facility] 13:04:00 13:04:00 Imaging r Specialties 114-4599-9 l Needed 4bf-fa49ff Mi nn 41eae1 2014-09-05 2014-09-05 Additional nullFlavo [place] 11 asr313-4 [facility] 13:04:00 13:04:00 Imaging r Specialties 5e3-1219-r l Needed h40-63j05y Mi nn e388cf 2014-09-05 2014-09-05 Additional nullFlavo [place] 12 ih4ix3-i [facility] 13:04:00 13:04:00 Imaging r Specialties 02a-4139-b l Needed 498-a9eb4b Mi nn 7a6fee 2014-09-05 2014-09-05 Additional nullFlavo [place] 45 02u248-6 [facility] 13:04:00 13:04:00 Imaging r Specialties 58e-4350-8 l Needed 23c-l41730 Mi nn 04b5de 2014-09-05 2014-09-05 Additional nullFlavo [place] 61 ke1059-c [facility] 13:04:00 13:04:00 Imaging r Specialties y24-75x4-k l Needed p0x-l05u26 Mi nn d34d4c 2014-09-05 2014-09-05 Additional nullFlavo [place] 46 7377y9-d [facility] 13:04:00 13:04:00 Imaging r Specialties cc2-4687-b l Needed 335-ee25ee Mi nn 80f2ee 2014-09-05 2014-09-05 Additional nullFlavo [place] 3a 9dt95w-f [facility] 13:04:00 13:04:00 Imaging r Specialties y73-66r8-2 l Needed ded-3k4816 Mi nn e52bcd 2014-09-05 2014-09-05 Additional nullFlavo [place] 96 z3953e-t [facility] 13:04:00 13:04:00 Imaging r Specialties 6u9-6akh-2 l Needed 24e-0677cf Mi nn ca1a33 2014-09-05 2014-09-05 Additional nullFlavo [place] 33 37351m-a [facility] 13:04:00 13:04:00 Imaging r Specialties 0k1-6054-9 l Needed 3z0-aqmuy4 Mi nn 13969d 2014-09-05 2014-09-05 Additional nullFlavo [place] bd o99e32-v [facility] 13:04:00 13:04:00 Imaging r Specialties 574-4960-8 l Needed i83-3n7b83 Mi nn 5ff8eb 2014-09-05 2014-09-05 Additional nullFlavo [place] f4 6q9m5y-6 [facility] 13:04:00 13:04:00 Imaging r Specialties 66c-4eff-b l Needed bf6-53a26d Mi nn 892856 4810-07-15 2014-09-05 Additional nullFlavo [place] e0 934c1u-6 [facility] 13:04:00 13:04:00 Imaging r Specialties j47-7217-s l Needed 976-4570f0 Mi nn f39f2d 2014-09-05 2014-09-05 Additional nullFlavo [place] cf 2sq388-q [facility] 13:04:00 13:04:00 Imaging r Specialties 745-4534-9 l Needed da3-54ff0f Mi nn 319ffe 2014-09-05 2014-09-05 Additional nullFlavo [place] c8 yb1579-c [facility] 13:04:00 13:04:00 Imaging r Specialties 550-4a52-a l Needed 15f-0b4ddf Mi nn 824489 9280-07-15 2014-09-05 Additional nullFlavo [place] 6e aywp4k-9 [facility] 13:04:00 13:04:00 Imaging r Specialties 720-4006-9 l Needed 124-63be20 Mi nn f65bec 2014-09-05 2014-09-05 Additional nullFlavo [place] 4f 16g793-8 [facility] 13:04:00 13:04:00 Imaging r Specialties 59e-4733-8 l Needed 455-49b98e Mi nn 0b61b6 2014-09-05 2014-09-05 Outpatient Clear [place] [id number] eClinic 08:04:00 08:04:00 [facility] 2014-08-21 2014-08-22 [facility] [id number] [facility] 13:07:00 04:59:00 r Niall 01 [facility] 2014-08-21 2014-08-22 [facility] [id number] [facility] 13:07:00 04:59:00 r Niall 01 [facility] 2014-08-21 2014-08-21 Outpatient Luis Miguel [id number]. [id number]. [id number] 08:07:00 23:59:00 nMat V [id number]. [id number] 21 7048-06-18 2014-08-09 4 Wk nullFlavo [place] 05b91 eb4-9 [facility] 19:30:00 19:30:00 Follow-Up r Specialties 56e-47b8 -b l / Lab ca7-e96d38 Mi nn Review bce9aa 2014-08-09 2014-08-09 4 Wk nullFlavo [place] [address] 85e-a [facility] 19:30:00 19:30:00 Follow-Up r Specialties d16-87l0 -b l / Lab 646-be0a6b Mi nn Review x9m344 2014-08-09 2014-08-09 4 Wk nullFlavo [place] 72d34 623-1 [facility] 19:30:00 19:30:00 Follow-Up r Specialties 8v0-3061 -a l / Lab af6-7dcacd Mi nn Review 9p275z 2014-08-09 2014-08-09 4 Wk nullFlavo [place] b6cc0 7cd-9 [facility] 19:30:00 19:30:00 Follow-Up r Specialties 637-46ce -b l / Lab 317-857808 Mi nn Review 6ded76 2014-08-09 2014-08-09 4 Wk nullFlavo [place] be236 0e9-f [facility] 19:30:00 19:30:00 Follow-Up r Specialties h05-5p50 -8 l / Lab 611-8437a5 Mi nn Review 2f57f6 2014-08-09 2014-08-09 4 Wk nullFlavo [place] b8ed0 6ab-0 [facility] 19:30:00 19:30:00 Follow-Up r Specialties 97a-44f1 -a l / Lab a03-b94k72 Mi nn Review 96763u 2014-08-09 2014-08-09 4 Wk nullFlavo [place] 0fbe5 7a4-5 [facility] 19:30:00 19:30:00 Follow-Up r Specialties 82a-481c -a l / Lab e52-h3fib6 Mi nn Review efb08e 2014-08-09 2014-08-09 4 Wk nullFlavo [place] 3b8bf 9fb-8 [facility] 19:30:00 19:30:00 Follow-Up r Specialties ddb-4d95 -8 l / Lab 839-fd9d0d Mi nn Review 1974f0 2014-08-09 2014-08-09 4 Wk nullFlavo [place] 9a8fa e8c-4 [facility] 19:30:00 19:30:00 Follow-Up r Specialties 99d-4e47 -9 l / Lab 339-dd1a10 Im nn Review 1cbd19 2014-08-09 2014-08-09 4 Wk nullFlavo [place] 78fee 7e8-d [facility] 19:30:00 19:30:00 Follow-Up r Specialties o3k-7p3p -9 l / Lab x4k-41np5v Mi nn Review cxh565 2014-08-09 2014-08-09 4 Wk nullFlavo [place] bd828 09c-8 [facility] 19:30:00 19:30:00 Follow-Up r Specialties 73e-4cb2 -9 l / Lab 3da-b17bb9 Mi nn Review dc0d32 2014-08-09 2014-08-09 4 Wk nullFlavo [place] cc58f be7-9 [facility] 19:30:00 19:30:00 Follow-Up r Specialties j55-1b4b -9 l / Lab ff3-25a29e Mi nn Review a6d69e 2014-08-09 2014-08-09 4 Wk nullFlavo [place] e5e43 62a-e [facility] 19:30:00 19:30:00 Follow-Up r Specialties 750-4aed -9 l / Lab 24c-ks359w Mi nn Review 6bb63f 2014-08-09 2014-08-09 4 Wk nullFlavo [place] 5fb95 97c-5 [facility] 19:30:00 19:30:00 Follow-Up r Specialties bd2-4399 -8 l / Lab 9ca-536444 Mi nn Review 122c54 2014-08-09 2014-08-09 4 Wk nullFlavo [place] 1b987 eee-1 [facility] 19:30:00 19:30:00 Follow-Up r Specialties n07-93g4 -b l / Lab 59b-yl455h Mi nn Review 0vo456 2014-08-09 2014-08-09 4 Wk nullFlavo [place] b231e b16-1 [facility] 19:30:00 19:30:00 Follow-Up r Specialties 952-4fe0 -b l / Lab 5g3-g2t83z Mi nn Review 088e59 2014-08-09 2014-08-09 4 Wk nullFlavo [place] 71f46 07c-1 [facility] 19:30:00 19:30:00 Follow-Up r Specialties 246-4190 -a l / Lab efc-9p8135 Mi nn Review 25h776 2014-08-09 2014-08-09 4 Wk nullFlavo [place] eb097 9fd-a [facility] 19:30:00 19:30:00 Follow-Up r Specialties 417-48fe -b l / Lab 10a-7c0e2a Mi nn Review 4d9cc9 2014-08-09 2014-08-09 4 Wk nullFlavo [place] bde2f 8ea-0 [facility] 19:30:00 19:30:00 Follow-Up r Specialties 254-4a61 -b l / Lab 060-99ddda Mi nn Review ofs468 2014-08-09 2014-08-09 4 Wk nullFlavo [place] fcdcd 48d-7 [facility] 19:30:00 19:30:00 Follow-Up r Specialties 366-468a -8 l / Lab 039-07u281 Mi nn Review 65acd2 2014-08-09 2014-08-09 4 Wk nullFlavo [place] 9bd5b 30f-a [facility] 19:30:00 19:30:00 Follow-Up r Specialties 90a-464e -a l / Lab n8w-120975 Mi nn Review 058a0c 2014-08-09 2014-08-09 4 Wk nullFlavo [place] 08010 9ad-d [facility] 19:30:00 19:30:00 Follow-Up r Specialties 9p8-850q -a l / Lab 904-4b8e73 Mi nn Review c6f4e6 2014-08-09 2014-08-09 4 Wk nullFlavo [place] a79c4 202-0 [facility] 19:30:00 19:30:00 Follow-Up r Specialties eaa-4b31 -a l / Lab m9r-663dw1 Mi nn Review 8y4031 2014-08-09 2014-08-09 4 Wk nullFlavo [place] 72d34 623-1 [facility] 19:30:00 19:30:00 Follow-Up r Specialties 8b8-1091 -a l / Lab af6-7dcacd Mi nn Review 8s575l 2014-08-09 2014-08-09 4 Wk nullFlavo [place] 05b91 eb4-9 [facility] 19:30:00 19:30:00 Follow-Up r Specialties 56e-47b8 -b l / Lab ca7-e96d38 Mi nn Review bce9aa 2014-08-09 2014-08-09 4 Wk nullFlavo [place] 3b8bf 9fb-8 [facility] 19:30:00 19:30:00 Follow-Up r Specialties ddb-4d95 -8 l / Lab 839-fd9d0d Mi nn Review 1974f0 2014-08-09 2014-08-09 4 Wk nullFlavo [place] 0fbe5 7a4-5 [facility] 19:30:00 19:30:00 Follow-Up r Specialties 82a-481c -a l / Lab f37-k0vol6 Mi nn Review efb08e 2014-08-09 2014-08-09 4 Wk nullFlavo [place] [address] 85e-a [facility] 19:30:00 19:30:00 Follow-Up r Specialties q88-43w9 -b l / Lab 646-be0a6b Mi nn Review h5s374 2014-08-09 2014-08-09 4 Wk nullFlavo [place] 9a8fa e8c-4 [facility] 19:30:00 19:30:00 Follow-Up r Specialties 99d-4e47 -9 l / Lab 339-dd1a10 Mi nn Review 1cbd19 2014-08-09 2014-08-09 4 Wk nullFlavo [place] be236 0e9-f [facility] 19:30:00 19:30:00 Follow-Up r Specialties e99-0r73 -8 l / Lab 611-8437a5 Mi nn Review 2f57f6 2014-08-09 2014-08-09 4 Wk nullFlavo [place] b6cc0 7cd-9 [facility] 19:30:00 19:30:00 Follow-Up r Specialties 637-46ce -b l / Lab 317-061491 Mi nn Review 6ded76 2014-08-09 2014-08-09 4 Wk nullFlavo [place] b8ed0 6ab-0 [facility] 19:30:00 19:30:00 Follow-Up r Specialties 97a-44f1 -a l / Lab l97-p14x89 Mi nn Review 23848a 2014-08-09 2014-08-09 4 Wk nullFlavo [place] 78fee 7e8-d [facility] 19:30:00 19:30:00 Follow-Up r Specialties q8s-7t8m -9 l / Lab f9q-81zk3i Mi nn Review dia287 2014-08-09 2014-08-09 4 Wk nullFlavo [place] b231e b16-1 [facility] 19:30:00 19:30:00 Follow-Up r Specialties 952-4fe0 -b l / Lab 2k2-j7k20b Mi nn Review 088e59 2014-08-09 2014-08-09 4 Wk nullFlavo [place] e5e43 62a-e [facility] 19:30:00 19:30:00 Follow-Up r Specialties 750-4aed -9 l / Lab 24c-bv445m Mi nn Review 6bb63f 2014-08-09 2014-08-09 4 Wk nullFlavo [place] eb097 9fd-a [facility] 19:30:00 19:30:00 Follow-Up r Specialties 417-48fe -b l / Lab 10a-7c0e2a Mi nn Review 4d9cc9 2014-08-09 2014-08-09 4 Wk nullFlavo [place] 5fb95 97c-5 [facility] 19:30:00 19:30:00 Follow-Up r Specialties bd2-4399 -8 l / Lab 9ca-003051 Mi nn Review 122c54 2014-08-09 2014-08-09 4 Wk nullFlavo [place] cc58f be7-9 [facility] 19:30:00 19:30:00 Follow-Up r Specialties v16-2v0q -9 l / Lab ff3-25a29e Mi nn Review [id number] 2014-08-09 2014-08-09 4 Wk [facility] [place] 1b987 eee-1 Memoria 19:30:00 19:30:00 Follow-Up r Specialties r05-06k4 -b l / Lab 59b-or818a Mi nn Review [id number] 2014-08-09 2014-08-09 4 Wk [facility] [place] 9bd5b 30f-a Memoria 19:30:00 19:30:00 Follow-Up r Specialties 90a-464e -a l / Lab v5d-886726 Mi nn Review [id number] 2014-08-09 2014-08-09 4 Wk [facility] [place] bde2f 8ea-0 Memoria 19:30:00 19:30:00 Follow-Up r Specialties 254-4a61 -b l / Lab 060-99ddda Mi nn Review [id number] 2014-08-09 2014-08-09 4 Wk [facility] [place] 71f46 07c-1 Memoria 19:30:00 19:30:00 Follow-Up r Specialties 246-4190 -a l / Lab efc-2f1112 Mi nn Review [id number] 2014-08-09 2014-08-09 4 Wk [facility] [place] bd828 09c-8 Memoria 19:30:00 19:30:00 Follow-Up r Specialties 73e-4cb2 -9 l / Lab 3da-b17bb9 Mi nn Review [id number] 2014-08-09 2014-08-09 4 Wk [facility] [place] fcdcd 48d-7 Memoria 19:30:00 19:30:00 Follow-Up r Specialties 366-468a -8 l / Lab 039-50r311 Mi nn Review [id number] 2014-08-09 2014-08-09 4 Wk [facility] [place] a79c4 202-0 [facility]oria 19:30:00 19:30:00 Follow-Up r Specialties eaa-4b31 -a l / Lab s2l-215uy3 Mi nn Review [id number] 2014-08-09 2014-08-09 4 Wk [facility] [place] 03336 9ad-d Memoria 19:30:00 19:30:00 Follow-Up r Specialties 4k0-507y -a l / Lab 904-4b8e73 Mi nn Review [id number] 2014-08-09 2014-08-09 4 Wk [facility] [place] 39f05 ee5-2 Memoria 18:30:00 18:30:00 Follow-Up r Specialties ec6-49f2 -a l / Lab 534-76y710 Mi nn Review [id number] 2014-08-09 2014-08-09 4 Wk null[facility] [place] 19e4a 6a6-f Memoria 18:30:00 18:30:00 Follow-Up r Specialties 3c2-12b4 -8 l / Lab 0c9-29eu4r Mi nn Review [id number] 2014-08-09 2014-08-09 4 Wk [facility] [place] 6d509 8ed-f Memoria 18:30:00 18:30:00 Follow-Up r Specialties 2d9-0658 -8 l / Lab 517-or025u Mi nn Review [id number] 2014-08-09 2014-08-09 4 Wk [facility] [place] e9c63 a0f-8 [facility] 18:30:00 18:30:00 Follow-Up r Specialties 478-4909 -b l / Lab 97b-ec9c78 Mi nn Review [id number] 2014-08-09 2014-08-09 4 Wk null[facility] [place] 14085 62c-b Memoria 18:30:00 18:30:00 Follow-Up r Specialties o50-111i -8 l / Lab b6x-290bh0 Mi nn Review [id number] 2014-08-09 2014-08-09 4 Wk [facility] [place] aaf23 73d-4 [facility] 18:30:00 18:30:00 Follow-Up r Specialties a5v-514n -b l / Lab j5z-qdx7gy Mi nn Review [id number] 2014-08-09 2014-08-09 4 Wk [facility] [place] cf67b 919-4 Memoria 18:30:00 18:30:00 Follow-Up r Specialties 572-4abf -8 l / Lab 29d-3999f6 Mi nn Review [id number] 2014-08-09 2014-08-09 4 Wk [facility] [place] 122d3 798-8 [facility] 18:30:00 18:30:00 Follow-Up r Specialties 918-4396 -b l / Lab 210-b3abe5 Mi nn Review [id number] 2014-08-09 2014-08-09 4 Wk null[facility] [place] 511a0 10b-0 Memoria 18:30:00 18:30:00 Follow-Up r Specialties 651-4bdb -b l / Lab 3p9-r25l0u Mi nn Review [id number] 2014-08-09 2014-08-09 4 Wk null[facility] [place] b9ed3 7f7-0 [facility] 18:30:00 18:30:00 Follow-Up r Specialties 50f-4656 -8 l / Lab 33c-m3g919 Mi nn Review [id number] 2014-08-09 2014-08-09 4 Wk null[facility] [place] b5c42 df4-4 [facility] 18:30:00 18:30:00 Follow-Up r Specialties 159-4ee2 -8 l / Lab t94-030a0t Mi nn Review [id number] 2014-08-09 2014-08-09 4 Wk [facility] [place] 3c738 932-0 [facility] 18:30:00 18:30:00 Follow-Up r Specialties 6ff-4b1f -8 l / Lab 983-f62023 Mi nn Review [id number] 2014-08-09 2014-08-09 4 Wk null[facility] [place] f4581 ce4-1 [facility] 18:30:00 18:30:00 Follow-Up r Specialties o49-63dt -8 l / Lab 2ec-3fff0b Mi nn Review 116d6d 2014-08-09 2014-08-09 4 Wk null[facility] [place] cf44f c45-0 [facility] 18:30:00 18:30:00 Follow-Up r Specialties 848-484f -b l / Lab 92c-180ffe Mi nn Review c94cbe 2014-08-09 2014-08-09 4 Wk null[facility] [place] c0a14 347-e [facility] 18:30:00 18:30:00 Follow-Up r Specialties g41-42rm -b l / Lab 453-f1ae54 Mi nn Review [id number] 2014-08-09 2014-08-09 4 Wk null[facility] [place] 44df2 cd9-7 Memoria 18:30:00 18:30:00 Follow-Up r Specialties 6b7-6799 -a l / Lab 010-496add Mi nn Review nkr051 2014-08-09 2014-08-09 4 Wk nullFl[facility] [place] 2cf7c d54-2 [facility] 18:30:00 18:30:00 Follow-Up r Specialties s12-97vx -b l / Lab e36-6as6vb Mi nn Review [id number] 2014-08-09 2014-08-09 4 [facility]k [facility] [place] 995e2 670-9 [facility] 18:30:00 18:30:00 Follow-Up r Specialties 279-48bd -b l / Lab 60b-c47c8f Mi nn Review gah388 2014-08-09 2014-08-09 4 Wk [facility] [place] 8b240 ffd-9 [facility] 18:30:00 18:30:00 Follow-Up r Specialties h05-75r9 -b l / Lab 2o4-528rue Mi nn Review 20e291 2014-08-09 2014-08-09 4 Wk [facility] [place] [address] 416-3 [facility] 18:30:00 18:30:00 Follow-Up r Specialties de7-4f6f -a l / Lab 401-42c31b Mi nn Review no061v 2014-08-09 2014-08-09 4 [facility]k [facility] [place] 2ac6c 08a-b [facility] 18:30:00 18:30:00 Follow-Up r Specialties r36-1925 -b l / Lab 11f-16aa63 Mi nn Review 0a33c5 2014-08-09 2014-08-09 4 [facility] [place] d61fd c96-2 [facility] 18:30:00 18:30:00 Follow-Up r Specialties 1de-4200 -9 l / Lab 9b0-0em19f Mi nn Review 059919 0871-06-18 2014-08-09 4 [facility] [place] e8ea6 3a8-6 [facility] 18:30:00 18:30:00 Follow-Up r Specialties 85e-4a7d -a l / Lab 950-2e7df3 Mi nn Review cib013 2014-08-09 2014-08-09 4 Wk [facility] [place] da963 926-6 [facility] 18:30:00 18:30:00 Follow-Up r Specialties j23-914w -8 l / Lab 551-3167b1 Mi nn Review 31ef23 2014-08-09 2014-08-09 4 [facility]k [facility] [place] 19e4a 6a6-f [facility] 18:30:00 18:30:00 Follow-Up r Specialties 6w3-74c6 -8 l / Lab 0z1-75dt9c Mi nn Review 34e63f 2014-08-09 2014-08-09 4 [facility]k [facility] [place] 39f05 ee5-2 [facility] 18:30:00 18:30:00 Follow-Up r Specialties ec6-49f2 -a l / Lab 534-38w303 Mi nn Review 42047p 2014-08-09 2014-08-09 4 [facility]k [facility] [place] 6d509 8ed-f [facility] 18:30:00 18:30:00 Follow-Up r Specialties 1j4-1502 -8 l / Lab 517-nl777z Mi nn Review k00577 2014-08-09 2014-08-09 4 [facility] [place] e9c63 a0f-8 [facility] 18:30:00 18:30:00 Follow-Up r Specialties 478-4909 -b l / Lab 97b-ec9c78 Mi nn Review 94fab8 2014-08-09 2014-08-09 4 [facility]k [facility] [place] aaf23 73d-4 [facility] 18:30:00 18:30:00 Follow-Up r Specialties h4s-970a -b l / Lab c2x-xsg0mk Mi nn Review 34750k 2014-08-09 2014-08-09 4 [facility]k [facility] [place] 122d3 798-8 [facility] 18:30:00 18:30:00 Follow-Up r Specialties 918-4396 -b l / Lab 210-b3abe5 Mi nn Review 88r777 2014-08-09 2014-08-09 4 [facility]k [facility] [place] cf67b 919-4 [facility] 18:30:00 18:30:00 Follow-Up r Specialties 572-4abf -8 l / Lab 29d-3999f6 Mi nn Review eaec87 2014-08-09 2014-08-09 4 Wk [facility] [place] 403[address] 62c-b [facility] 18:30:00 18:30:00 Follow-Up r Specialties p25-486p -8 l / Lab n2q-789ff5 Mi nn Review 4e2b49 2014-08-09 2014-08-09 4 [facility]k [facility] [place] b5c42 df4-4 [facility] 18:30:00 18:30:00 Follow-Up r Specialties 159-4ee2 -8 l / Lab z52-356q5f Mi nn Review 053ea4 2014-08-09 2014-08-09 4 [facility]k [facility] [place] c0a14 347-e [facility] 18:30:00 18:30:00 Follow-Up r Specialties i21-20tt -b l / Lab 453-f1ae54 Mi nn Review 26662u 2014-08-09 2014-08-09 4 [facility] [place] cf44f c45-0 [facility] 18:30:00 18:30:00 Follow-Up r Specialties 848-484f -b l / Lab 92c-180ffe Mi nn Review c94cbe 2014-08-09 2014-08-09 4 [facility]k [facility] [place] 511a0 10b-0 [facility] 18:30:00 18:30:00 Follow-Up r Specialties 651-4bdb -b l / Lab 5j1-u72t9l Mi nn Review j4l103 2014-08-09 2014-08-09 4 [facility] [place] b9ed3 7f7-0 [facility] 18:30:00 18:30:00 Follow-Up r Specialties 50f-4656 -8 l / Lab 33c-x0z125 Mi nn Review b84ab3 2014-08-09 2014-08-09 4 [facility] [place] 44df2 cd9-7 [facility] 18:30:00 18:30:00 Follow-Up r Specialties 6e0-2837 -a l / Lab 010-496add Mi nn Review pfz314 2014-08-09 2014-08-09 4 [facility]k [facility] [place] f4581 ce4-1 [facility] 18:30:00 18:30:00 Follow-Up r Specialties s16-49yj -8 l / Lab 2ec-3fff0b Mi nn Review 116d6d 2014-08-09 2014-08-09 4 [facility]k [facility] [place] 62399 416-3 [facility] 18:30:00 18:30:00 Follow-Up r Specialties de7-4f6f -a l / Lab 401-42c31b Mi nn Review sp181j 2014-08-09 2014-08-09 4 Wk [facility] [place] 2ac6c 08a-b [facility] 18:30:00 18:30:00 Follow-Up r Specialties d15-9276 -b l / Lab 11f-16aa63 Mi nn Review 0a33c5 2014-08-09 2014-08-09 4 Wk [facility] [place] d61fd c96-2 [facility] 18:30:00 18:30:00 Follow-Up r Specialties 1de-4200 -9 l / Lab 8k8-9ca41h Mi nn Review 084442 6254-06-18 2014-08-09 4 [facility]k [facility] [place] 2cf7c d54-2 [facility] 18:30:00 18:30:00 Follow-Up r Specialties t11-77bo -b l / Lab a10-6dd2ft Mi nn Review 53i371 2014-08-09 2014-08-09 4 [facility]k [facility] [place] 3c738 932-0 [facility] 18:30:00 18:30:00 Follow-Up r Specialties 6ff-4b1f -8 l / Lab 983-m71672 Mi nn Review 676dec 2014-08-09 2014-08-09 4 [facility]k [facility] [place] e8ea6 3a8-6 [facility] 18:30:00 18:30:00 Follow-Up r Specialties 85e-4a7d -a l / Lab 950-2e7df3 Mi nn Review dkb036 2014-08-09 2014-08-09 4 Wk [facility] [place] 995e2 670-9 [facility] 18:30:00 18:30:00 Follow-Up r Specialties 279-48bd -b l / Lab 60b-c47c8f Mi nn Review xmo580 2014-08-09 2014-08-09 4 Wk [facility] [place] 8b240 ffd-9 [facility] 18:30:00 18:30:00 Follow-Up r Specialties m98-08y7 -b l / Lab 5h8-311xes Mi nn Review 66t749 2014-08-09 2014-08-09 4 Wk [facility] [place] da963 926-6 [facility] 18:30:00 18:30:00 Follow-Up r Specialties c49-614n -8 l / Lab 551-3167b1 Mi nn Review 31ef23 2014-07-23 2014-07-23 Pt Concern [facility] [place] 7a sc830j-u [facility] 16:49:00 16:49:00 - notified r Specialties y3g-9a9 1-9 l j2a-86v301 Mi nn 4eabc3 2014-07-23 2014-07-23 Pt Con[facility] [place] 3e 196of2-d [facility] 16:49:00 16:49:00 - notified r Specialties 0v3-638 2-a l 315-dbf4f2 Mi nn e72f7b 2014-07-23 2014-07-23 Pt Con[facility] [place] 32 fx94r9-0 [facility] 16:49:00 16:49:00 - notified r Specialties 092-4cb c-a l f9n-7wy74f Mi nn 241f9f 2014-07-23 2014-07-23 Pt Con[facility] [place] 93 x42855-0 [facility] 16:49:00 16:49:00 - notified r Specialties 1be-4ae b-9 l 38b-324a97 Mi nn 1c2af9 2014-07-23 2014-07-23 Pt Concern [facility] [place] 93 58v6t1-1 [facility] 16:49:00 16:49:00 - notified r Specialties fc3-4ab 2-9 l c38-n58su6 Mi nn 4d5156 2014-07-23 2014-07-23 Pt Con[facility] [place] 3f l27z35-t [facility] 16:49:00 16:49:00 - notified r Specialties 077-4e0 a-b l 031-a01c35 Mi nn 73cd42 2014-07-23 2014-07-23 Pt Concern [facility] [place] fc 05903r-1 [facility] 16:49:00 16:49:00 - notified r Specialties cd1-475 a-b l s5v-3976f7 Mi nn f17aa1 2014-07-23 2014-07-23 Pt Concern [facility] [place] 65 i9cf5e-2 [facility] 16:49:00 16:49:00 - notified r Specialties q2j-202 c-b l af6-19753n Mi nn e3cf36 2014-07-23 2014-07-23 Pt Concern [facility] [place] 02 866m18-5 [facility] 16:49:00 16:49:00 - notified r Specialties a86-491 b-8 l fc9-22b638 Mi nn 209d56 2014-07-23 2014-07-23 Pt Concern [facility] [place] 0a 300c96-5 [facility] 16:49:00 16:49:00 - notified r Specialties 500-410 f-9 l 045-67b8e4 Mi nn hy115a 2014-07-23 2014-07-23 Pt Concern [facility] [place] d8 3re261-c [facility] 16:49:00 16:49:00 - notified r Specialties a02-465 6-9 l 35e-3874d8 Mi nn 3dbee7 2014-07-23 2014-07-23 Pt Con[facility] [place] 02 1n9pb6-v [facility] 16:49:00 16:49:00 - notified r Specialties 4c6-7i8 5-b l ca4-5a3cec Mi nn 341a15 2014-07-23 2014-07-23 Pt [facility] [place] c0 0u0qub-8 [facility] 16:49:00 16:49:00 - notified r Specialties 9z2-0ok 8-a l u67-7wkr3j Mi nn 950889 8996-06-01 2014-07-23 Pt [facility] [place] 4f 8900bd-d [facility] 16:49:00 16:49:00 - notified r Specialties 490-4a8 c-b l 544-dd2ab9 Mi nn 0f27fe 2014-07-23 2014-07-23 Pt Con[facility] [place] 65 740m7g-5 [facility] 16:49:00 16:49:00 - notified r Specialties 18c-470 d-b l 758-b20d94 Mi nn ba9f62 2014-07-23 2014-07-23 Pt Con[facility] [place] 36 ovd893-2 [facility] 16:49:00 16:49:00 - notified r Specialties e91-47e c-a l 030-850728 Mi nn 59ee30 2014-07-23 2014-07-23 Pt Con[facility] [place] b4 511o9l-0 [facility] 16:49:00 16:49:00 - notified r Specialties b77-4fb 5-8 l 3d7-2zlh19 Mi nn c89d4a 2014-07-23 2014-07-23 Pt [facility] [place] 6a 7m03bq-6 [facility] 16:49:00 16:49:00 - notified r Specialties 61b-49f 8-b l cc4-w03650 Mi nn dbaf1a 2014-07-23 2014-07-23 Pt Con[facility] [place] 70 2d635d-7 [facility] 16:49:00 16:49:00 - notified r Specialties 446-426 9-9 l 19c-6eebf2 Mi nn f26c05 2014-07-23 2014-07-23 Pt Concern [facility] [place] 36 8q793z-6 [facility] 16:49:00 16:49:00 - notified r Specialties 50c-4fd f-b l 163-c58d1a Mi nn 874c27 2014-07-23 2014-07-23 Pt Con[facility] [place] e0 00p260-5 [facility] 16:49:00 16:49:00 - notified r Specialties dac-41c 7-8 l 9o5-2ot4js Mi nn 86368y 2014-07-23 2014-07-23 Pt Con[facility] [place] 16 38g7p4-b [facility] 16:49:00 16:49:00 - notified r Specialties db7-463 f-a l bbb-2c1cf4 Mi nn 71be45 2014-07-23 2014-07-23 Pt Con[facility] [place] 04 856652-5 [facility] 16:49:00 16:49:00 - notified r Specialties a16-445 b-8 l dcd-83c5b8 Mi nn 7cab5e 2014-07-23 2014-07-23 Pt Concern [facility] [place] 32 tu58u4-9 [facility] 16:49:00 16:49:00 - notified r Specialties 092-4cb c-a l x3p-3te46s Mi nn 241f9f 2014-07-23 2014-07-23 Pt Con[facility] [place] 7a la945y-g [facility] 16:49:00 16:49:00 - notified r Specialties m1q-1y4 1-9 l h2e-21p804 Mi nn 4eabc3 2014-07-23 2014-07-23 Pt Con[facility] [place] 65 g6sy6u-0 [facility] 16:49:00 16:49:00 - notified r Specialties g8s-110 c-b l af6-97821g Mi nn e3cf36 2014-07-23 2014-07-23 Pt Concern [facility] [place] fc 23453s-3 [facility] 16:49:00 16:49:00 - notified r Specialties cd1-475 a-b l y4v-1472w7 Mi nn f17aa1 2014-07-23 2014-07-23 Pt Con[facility] [place] 3e 814vv2-y [facility] 16:49:00 16:49:00 - notified r Specialties 7l1-569 2-a l 315-dbf4f2 Mi nn e72f7b 2014-07-23 2014-07-23 Pt Con[facility] [place] 02 057v11-4 [facility] 16:49:00 16:49:00 - notified r Specialties a86-491 b-8 l fc9-85d704 Mi nn 209d56 2014-07-23 2014-07-23 Pt Con[facility] [place] 93 50f1v4-2 [facility] 16:49:00 16:49:00 - notified r Specialties fc3-4ab 2-9 l d87-h80hv6 Mi nn 0a0990 2014-07-23 2014-07-23 Pt Con[facility] [place] 93 e17327-7 [facility] 16:49:00 16:49:00 - notified r Specialties 1be-4ae b-9 l 38b-324a97 Mi nn 1c2af9 2014-07-23 2014-07-23 Pt Con[facility] [place] 3f g60f52-o [facility] 16:49:00 16:49:00 - notified r Specialties 077-4e0 a-b l 031-a01c35 Mi nn 73cd42 2014-07-23 2014-07-23 Pt Con[facility] [place] 0a 950x02-6 [facility] 16:49:00 16:49:00 - notified r Specialties 500-410 f-9 l 045-67b8e4 Mi nn lq556x 2014-07-23 2014-07-23 Pt Con[facility] [place] 36 mwu913-0 [facility] 16:49:00 16:49:00 - notified r Specialties e91-47e c-a l 030-152590 Mi nn 59ee30 2014-07-23 2014-07-23 Pt [facility] [place] c0 9z0zvg-5 [facility] 16:49:00 16:49:00 - notified r Specialties 8e5-9it 8-a l d96-9tcx1s Mi nn 467160 0441-06-01 2014-07-23 Pt [facility] [place] 6a 6t74vy-5 [facility] 16:49:00 16:49:00 - notified r Specialties 61b-49f 8-b l cc4-b95295 Mi nn dbaf1a 2014-07-23 2014-07-23 Pt Con[facility] [place] 4f 8900bd-d [facility] 16:49:00 16:49:00 - notified r Specialties 490-4a8 c-b l 544-dd2ab9 Mi nn 0f27fe 2014-07-23 2014-07-23 Pt Con[facility] [place] 02 5b4be2-g [facility] 16:49:00 16:49:00 - notified r Specialties 1l2-8w2 5-b l ca4-5a3cec Mi nn 341a15 2014-07-23 2014-07-23 Pt Con[facility] [place] 65 498a6h-0 [facility] 16:49:00 16:49:00 - notified r Specialties 18c-470 d-b l 758-b20d94 Mi nn ba9f62 2014-07-23 2014-07-23 Pt Con[facility] [place] e0 42g746-4 [facility] 16:49:00 16:49:00 - notified r Specialties dac-41c 7-8 l 9j5-5ec1ml Mi nn 09715s 2014-07-23 2014-07-23 Pt Con[facility] [place] 70 6h166f-9 [facility] 16:49:00 16:49:00 - notified r Specialties 446-426 9-9 l 19c-6eebf2 Mi nn f26c05 2014-07-23 2014-07-23 Pt Con[facility] [place] b4 004y5n-7 [facility] 16:49:00 16:49:00 - notified r Specialties b77-4fb 5-8 l 3n2-7cyz94 Mi nn c89d4a 2014-07-23 2014-07-23 Pt Con[facility] [place] d8 3mu620-j [facility] 16:49:00 16:49:00 - notified r Specialties a02-465 6-9 l 35e-3874d8 Mi nn 3dbee7 2014-07-23 2014-07-23 Pt Concern [facility] [place] 36 4v127j-2 [facility] 16:49:00 16:49:00 - notified r Specialties 50c-4fd f-b l 163-c58d1a Mi nn 874c27 2014-07-23 2014-07-23 Pt Con[facility] [place] 04 094186-0 [facility] 16:49:00 16:49:00 - notified r Specialties a16-445 b-8 l dcd-83c5b8 Mi nn 7cab5e 2014-07-23 2014-07-23 Pt Con[facility] [place] 16 40v7g4-b [facility] 16:49:00 16:49:00 - notified r Specialties db7-463 f-a l bbb-2c1cf4 Mi nn 71be45 2014-07-23 2014-07-23 Pt Con[facility] [place] 2e 513548-y [facility] 15:49:00 15:49:00 - notified r Specialties b63-4fd a-8 l 70f-acbea2 Mi nn a1d4d9 2014-07-23 2014-07-23 Pt [facility] [place] 75 9xkv01-f [facility] 15:49:00 15:49:00 - notified r Specialties bfe-427 4-8 l fda-015bf0 Mi nn 01u005 2014-07-23 2014-07-23 Pt Con[facility] [place] e4 m904vt-v [facility] 15:49:00 15:49:00 - notified r Specialties 3b1-72c 2-8 l 528-679214 Mi nn 50118x 2014-07-23 2014-07-23 Pt Con[facility] [place] 0d 861mh9-j [facility] 15:49:00 15:49:00 - notified r Specialties 4i8-845 6-a l fc1-bc9e33 Mi nn fd74d2 2014-07-23 2014-07-23 Pt Con[facility] [place] 57 j579c5-6 [facility] 15:49:00 15:49:00 - notified r Specialties 5dc-4c8 a-8 l 242-2064a1 Mi nn fa12bb 2014-07-23 2014-07-23 Pt Con[facility] [place] dc k4r403-5 [facility] 15:49:00 15:49:00 - notified r Specialties 344-4c0 e-8 l kizzy-1mx963 Mi nn d0e17c 2014-07-23 2014-07-23 Pt Con[facility] [place] 23 07r330-1 [facility] 15:49:00 15:49:00 - notified r Specialties f45-405 7-9 l a72-rucx87 Mi nn 680180 6880-06-01 2014-07-23 Pt Con[facility] [place] 74 ky5369-5 [facility] 15:49:00 15:49:00 - notified r Specialties c41-473 9-b l 10a-6cc70f Mi nn 2567ed 2014-07-23 2014-07-23 Pt Con[facility] [place] e5 f4ds17-y [facility] 15:49:00 15:49:00 - notified r Specialties 131-4f9 c-8 l 79d-3e7a2b Mi nn iyk125 2014-07-23 2014-07-23 Pt Con[facility] [place] f7 6l53e6-5 [facility] 15:49:00 15:49:00 - notified r Specialties fd0-457 b-a l 43b-17889x Mi nn 54a7fb 2014-07-23 2014-07-23 Pt Con[facility] [place] 4d 95k740-2 [facility] 15:49:00 15:49:00 - notified r Specialties p6s-6z4 d-9 l z7p-47gsdh Mi nn 40c5c9 2014-07-23 2014-07-23 Pt Con[facility] [place] 5f c39858-z [facility] 15:49:00 15:49:00 - notified r Specialties 875-4c2 0-8 l 5v1-j7a523 Mi nn 827ad9 2014-07-23 2014-07-23 Pt Con[facility] [place] 84 le8507-2 [facility] 15:49:00 15:49:00 - notified r Specialties 79c-44e c-b l f9u-f96pf6 Mi nn 27b2b2 2014-07-23 2014-07-23 Pt Con[facility] [place] 77 3soo89-5 [facility] 15:49:00 15:49:00 - notified r Specialties 0ed-426 c-a l 90c-44b1df Mi nn 632c70 2014-07-23 2014-07-23 Pt Con[facility] [place] 00 w6b7d6-j [facility] 15:49:00 15:49:00 - notified r Specialties 576-43f 7-9 l 812-1cadd1 Mi nn a063a1 2014-07-23 2014-07-23 Pt Con[facility] [place] ba 51991w-r [facility] 15:49:00 15:49:00 - notified r Specialties 7y9-3q1 f-8 l g62-m01117 Mi nn 71d8e6 2014-07-23 2014-07-23 Pt Con[facility] [place] 48 67t625-9 [facility] 15:49:00 15:49:00 - notified r Specialties q1a-2zw c-b l 9a0-971hmu Mi nn x3301q 2014-07-23 2014-07-23 Pt Con[facility] [place] 49 a4430v-4 [facility] 15:49:00 15:49:00 - notified r Specialties 443-4df 4-a l fb8-6273ff Mi nn t6600w 2014-07-23 2014-07-23 Pt Con[facility] [place] 82 13key3-m [facility] 15:49:00 15:49:00 - notified r Specialties 999-446 e-b l 690-2efc68 Mi nn 3a1d65 2014-07-23 2014-07-23 Pt Con[facility] [place] 01 45f46x-6 [facility] 15:49:00 15:49:00 - notified r Specialties e77-473 2-b l v00-0u7252 Mi nn 42a64b 2014-07-23 2014-07-23 Pt Con[facility] [place] 62 460220-z [facility] 15:49:00 15:49:00 - notified r Specialties 8f6-4o5 8-9 l 896-87312c Mi nn 5fd9d2 2014-07-23 2014-07-23 Pt Con[facility] [place] 0c 66cq72-3 [facility] 15:49:00 15:49:00 - notified r Specialties 38b-4d4 5-8 l ad2-9003ca Mi nn 1cy029 2014-07-23 2014-07-23 Pt Con[facility] [place] ca 0jyt44-v [facility] 15:49:00 15:49:00 - notified r Specialties 834-400 e-9 l 731-dafd19 Mi nn 2878ac 2014-07-23 2014-07-23 Pt Con[facility] [place] dd d472r9-6 [facility] 15:49:00 15:49:00 - notified r Specialties ad9-4fa 6-a l fc0-4f3b60 Mi nn 001fcc 2014-07-23 2014-07-23 Pt Con[facility] [place] ef cu9x55-e [facility] 15:49:00 15:49:00 - notified r Specialties ec7-439 0-8 l 815-96d0d9 Mi nn d2f9e5 2014-07-23 2014-07-23 Pt Con[facility] [place] e4 l227cz-v [facility] 15:49:00 15:49:00 - notified r Specialties 1y8-31a 2-8 l 528-216876 Mi nn 14005u 2014-07-23 2014-07-23 Pt Con[facility] [place] 2e 809834-c [facility] 15:49:00 15:49:00 - notified r Specialties b63-4fd a-8 l 70f-acbea2 Mi nn a1d4d9 2014-07-23 2014-07-23 Pt Con[facility] [place] 0d 894zr7-p [facility] 15:49:00 15:49:00 - notified r Specialties 6u1-911 6-a l fc1-bc9e33 Mi nn fd74d2 2014-07-23 2014-07-23 Pt Con[facility] [place] 75 0yqd02-s [facility] 15:49:00 15:49:00 - notified r Specialties bfe-427 4-8 l fda-015bf0 Mi nn 49p570 2014-07-23 2014-07-23 Pt Con[facility] [place] 57 u820r7-4 [facility] 15:49:00 15:49:00 - notified r Specialties 5dc-4c8 a-8 l 242-2064a1 Mi nn fa12bb 2014-07-23 2014-07-23 Pt Con[facility] [place] 23 01f644-3 [facility] 15:49:00 15:49:00 - notified r Specialties f45-405 7-9 l x91-aaom78 Mi nn 862383 5846-06-01 2014-07-23 Pt [facility] [place] e5 h5di56-y [facility] 15:49:00 15:49:00 - notified r Specialties 131-4f9 c-8 l 79d-3e7a2b Mi nn hvj950 2014-07-23 2014-07-23 Pt Con[facility] [place] 74 bf3311-8 [facility] 15:49:00 15:49:00 - notified r Specialties c41-473 9-b l 10a-6cc70f Mi nn 2567ed 2014-07-23 2014-07-23 Pt Con[facility] [place] dc u5t912-0 [facility] 15:49:00 15:49:00 - notified r Specialties 344-4c0 e-8 l kizzy-2bx270 Mi nn d0e17c 2014-07-23 2014-07-23 Pt Con[facility] [place] 5f r35568-d [facility] 15:49:00 15:49:00 - notified r Specialties 875-4c2 0-8 l 5z3-e4z272 Mi nn 827ad9 2014-07-23 2014-07-23 Pt Con[facility] [place] ba 74639q-h [facility] 15:49:00 15:49:00 - notified r Specialties 2x7-6b9 f-8 l u81-n21336 Mi nn 71d8e6 2014-07-23 2014-07-23 Pt Con[facility] [place] 00 j5j8h0-d [facility] 15:49:00 15:49:00 - notified r Specialties 576-43f 7-9 l 812-1cadd1 Mi nn a063a1 2014-07-23 2014-07-23 Pt Con[facility] [place] f7 8p20j9-4 [facility] 15:49:00 15:49:00 - notified r Specialties fd0-457 b-a l 43b-26084x Mi nn 54a7fb 2014-07-23 2014-07-23 Pt Con[facility] [place] 4d 11x895-5 [facility] 15:49:00 15:49:00 - notified r Specialties t2d-8j7 d-9 l a3b-42ztwa Mi nn 40c5c9 2014-07-23 2014-07-23 Pt Con[facility] [place] 48 54a029-9 [facility] 15:49:00 15:49:00 - notified r Specialties t1e-9ms c-b l 1r9-727gtf Mi nn b3262c 2014-07-23 2014-07-23 Pt Con[facility] [place] 77 8ygj50-6 [facility] 15:49:00 15:49:00 - notified r Specialties 0ed-426 c-a l 90c-44b1df Mi nn 632c70 2014-07-23 2014-07-23 Pt Concern [facility] [place] 62 670970-h [facility] 15:49:00 15:49:00 - notified r Specialties 4c8-2l0 8-9 l 896-60643e Mi nn 5fd9d2 2014-07-23 2014-07-23 Pt Con[facility] [place] 0c 92jd56-2 [facility] 15:49:00 15:49:00 - notified r Specialties 38b-4d4 5-8 l ad2-9003ca Mi nn 0wo663 2014-07-23 2014-07-23 Pt Con[facility] [place] ca 1vaz50-y [facility] 15:49:00 15:49:00 - notified r Specialties 834-400 e-9 l 731-dafd19 Mi nn 2878ac 2014-07-23 2014-07-23 Pt Con[facility] [place] 49 b6084e-6 [facility] 15:49:00 15:49:00 - notified r Specialties 443-4df 4-a l fb8-6273ff Mi nn q5290i 2014-07-23 2014-07-23 Pt Con[facility] [place] 84 oo2910-9 [facility] 15:49:00 15:49:00 - notified r Specialties 79c-44e c-b l a5d-d47tk5 Mi nn 27b2b2 2014-07-23 2014-07-23 Pt Con[facility] [place] dd b571j4-1 [facility] 15:49:00 15:49:00 - notified r Specialties ad9-4fa 6-a l fc0-4f3b60 Mi nn 001fcc 2014-07-23 2014-07-23 Pt Concern nullFlavo [place] 82 61msd6-c Memoria 15:49:00 15:49:00 - notified r Specialties 999-446 e-b l 690-2efc68 Mi nn 3a1d65 2014-07-23 2014-07-23 Pt Concern nullFlavo [place] 01 11s43s-5 Memoria 15:49:00 15:49:00 - notified r Specialties e77-473 2-b l w09-0x9987 Mi nn 42a64b 2014-07-23 2014-07-23 Pt Concern nullFlavo [place] ef xy9g06-z [facility] 15:49:00 15:49:00 - notified r Specialties ec7-439 0-8 l 815-96d0d9 Mi nn d2f9e5 2014-07-19 2014-07-19 Accu-chek nullFlavo [place] 3fe w7a5o-s [facility] 13:55:00 13:55:00 test r Specialties 934-41a8-9 l strips y45-91811p Mi nn 30X5 097719 7908-05-28 2014-07-19 Accu-chek nullFlavo [place] 977 i3211-g Memoria 13:55:00 13:55:00 test r Specialties db8-4de4-a l strips 7bb-9zn040 Mi nn 30X5 22440o 2014-07-19 2014-07-19 Accu-chek nullFlavo [place] b02 fx11c-2 Mem[facility] 13:55:00 13:55:00 test r Specialties 370-496e-b l strips 9z9-g47680 Mi nn 30X5 42da4f 2014-07-19 2014-07-19 Accu-chek nullFlavo [place] ce0 30e8l-e [facility] 13:55:00 13:55:00 test r Specialties 9h1-0903-5 l strips 84b-a7ebfb Mi nn 30X5 f7921i 2014-07-19 2014-07-19 Accu-chek nullFlavo [place] 8bb 22550-t Mem[facility] 13:55:00 13:55:00 test r Specialties 703-4856-b l strips 5a0-231925 Mi nn 30X5 9u9824 2014-07-19 2014-07-19 Accu-chek nullFlavo [place] ab2 05415-9 Mem[facility] 13:55:00 13:55:00 test r Specialties 75a-4923-b l strips 47f-aceef9 Mi nn 30X5 c1abdc 2014-07-19 2014-07-19 Accu-chek nullFlavo [place] 19b a0n10-k [facility] 13:55:00 13:55:00 test r Specialties eb9-42aa-b l strips 2n7-qip7t9 Mi nn 30X5 39ac72 2014-07-19 2014-07-19 Accu-chek nullFlavo [place] 983 6t84j-e Mem[facility] 13:55:00 13:55:00 test r Specialties f64-2665-5 l strips fde-cddc7f Mi nn 30X5 16320e 2014-07-19 2014-07-19 Accu-chek nullFlavo [place] 39d 22i58-4 Memoria 13:55:00 13:55:00 test r Specialties 479-49ad-b l strips 384-0ba99c Mi nn 30X5 c35fca 2014-07-19 2014-07-19 Accu-chek nullFlavo [place] b71 50044-8 Mem[facility] 13:55:00 13:55:00 test r Specialties 804-4940-9 l strips 49f-b62910 Mi nn 30X5 3f6a91 2014-07-19 2014-07-19 Accu-chek nullFlavo [place] 0fd 8z506-0 Mem[facility] 13:55:00 13:55:00 test r Specialties 932-4711-a l strips 22c-07759s Mi nn 30X5 927c2c 2014-07-19 2014-07-19 Accu-chek nullFlavo [place] e04 19fg5-4 [facility] 13:55:00 13:55:00 test r Specialties 784-41ed-8 l strips 4ec-52429r Mi nn 30X5 f96cdc 2014-07-19 2014-07-19 Accu-chek nullFlavo [place] 02f caca0-7 Mem[facility] 13:55:00 13:55:00 test r Specialties 1l6-210n-6 l strips ec8-38cb68 Mi nn 30X5 63f1e9 2014-07-19 2014-07-19 Accu-chek nullFlavo [place] 811 62f98-u [facility] 13:55:00 13:55:00 test r Specialties 9cc-4eb3-a l strips 1j9-6rkl9f Mi nn 30X5 5i2567 2014-07-19 2014-07-19 Accu-chek nullFlavo [place] 7af 33985-g [facility] 13:55:00 13:55:00 test r Specialties 3e2-017x-i l strips cbd-5442cc Mi nn 30X5 971bf7 2014-07-19 2014-07-19 Accu-chek nullFlavo [place] 5e0 21376-d [facility] 13:55:00 13:55:00 test r Specialties ff1-4542-a l strips j39-s1x0m6 Mi nn 30X5 g28718 2014-07-19 2014-07-19 Accu-chek nullFlavo [place] abc 76991-6 Mem[facility] 13:55:00 13:55:00 test r Specialties 94e-486c-9 l strips c7p-o8n841 Mi nn 30X5 77a6d3 2014-07-19 2014-07-19 Accu-chek nullFlavo [place] 191 nr15m-9 [facility] 13:55:00 13:55:00 test r Specialties 013-4f33-9 l strips 7ed-e03321 Mi nn 30X5 fab4bf 2014-07-19 2014-07-19 Accu-chek nullFlavo [place] ed4 d9ah5-i [facility] 13:55:00 13:55:00 test r Specialties fd1-4a7b-9 l strips 3b5-908a22 Mi nn 30X5 o4z946 2014-07-19 2014-07-19 Accu-chek nullFlavo [place] eb2 4i9z5-3 [facility] 13:55:00 13:55:00 test r Specialties 474-4ab2-a l strips w54-22shyo Mi nn 30X5 c533d2 2014-07-19 2014-07-19 Accu-chek nullFlavo [place] 33a 685s6-8 Mem[facility] 13:55:00 13:55:00 test r Specialties 9dd-45fe-a l strips 59f-3f3e8b Mi nn 30X5 f8a4da 2014-07-19 2014-07-19 Accu-chek nullFlavo [place] dde nq19u-p [facility] 13:55:00 13:55:00 test r Specialties u52-6j5r-3 l strips 7i7-8r785p Mi nn 30X5 who292 2014-07-19 2014-07-19 Accu-chek nullFlavo [place] 00f 711t2-t [facility] 13:55:00 13:55:00 test r Specialties dad-4eec-8 l strips 926-7c1f5e Mi nn 30X5 8ac8b5 2014-07-19 2014-07-19 Accu-chek nullFlavo [place] b02 rb03s-6 [facility] 13:55:00 13:55:00 test r Specialties 370-496e-b l strips 4v8-f62789 Mi nn 30X5 42da4f 2014-07-19 2014-07-19 Accu-chek nullFlavo [place] 3fe y5t0w-n [facility] 13:55:00 13:55:00 test r Specialties 934-41a8-9 l strips d26-94590v Mi nn 30X5 180837 0857-05-28 2014-07-19 Accu-chek nullFlavo [place] 983 5n03b-o [facility] 13:55:00 13:55:00 test r Specialties a35-9373-9 l strips fde-cddc7f Mi nn 30X5 89267n 2014-07-19 2014-07-19 [facility] [place] 19b h1n58-w [facility] 13:55:00 13:55:00 test r Specialties eb9-42aa-b l strips 9l8-obt8y8 Mi nn 30X5 39ac72 2014-07-19 2014-07-19 [facility] [place] 977 m7397-t [facility] 13:55:00 13:55:00 test r Specialties db8-4de4-a l strips 7bb-7ju077 Mi nn 30X5 96807a 2014-07-19 2014-07-19 [facility] [place] 39d 22t32-1 [facility] 13:55:00 13:55:00 test r Specialties 479-49ad-b l strips 384-0ba99c Mi nn 30X5 c35fca 2014-07-19 2014-07-19 [facility] [place] 8bb 83821-p [facility] 13:55:00 13:55:00 test r Specialties 703-4856-b l strips 3a4-392432 Mi nn 30X5 3u8749 2014-07-19 2014-07-19 [facility] [place] ce0 68r3n-o [facility] 13:55:00 13:55:00 test r Specialties 1e1-8849-2 l strips 84b-a7ebfb Mi nn 30X5 o9873w 2014-07-19 2014-07-19 [facility] [place] ab2 05019-1 [facility] 13:55:00 13:55:00 test r Specialties 75a-4923-b l strips 47f-aceef9 Mi nn 30X5 c1abdc 2014-07-19 2014-07-19 [facility]k [facility] [place] b71 50382-0 [facility] 13:55:00 13:55:00 test r Specialties 804-4940-9 l strips 49f-c55488 Mi nn 30X5 3f6a91 2014-07-19 2014-07-19 [facility]k [facility] [place] 5e0 46922-d [facility] 13:55:00 13:55:00 test r Specialties ff1-4542-a l strips r49-f3w6l8 Mi nn 30X5 j50091 2014-07-19 2014-07-19 [facility]k [facility] [place] 02f caca0-7 [facility] 13:55:00 13:55:00 test r Specialties 8o7-974l-3 l strips ec8-38cb68 Mi nn 30X5 63f1e9 2014-07-19 2014-07-19 [facility]k [facility] [place] 191 jj84y-1 [facility] 13:55:00 13:55:00 test r Specialties 013-4f33-9 l strips 7ed-i66968 Mi nn 30X5 fab4bf 2014-07-19 2014-07-19 [facility] [place] 811 78d69-b [facility] 13:55:00 13:55:00 test r Specialties 9cc-4eb3-a l strips 3k4-1wlv6p Mi nn 30X5 4n4774 2014-07-19 2014-07-19 [facility]k [facility] [place] e04 39kw6-6 [facility] 13:55:00 13:55:00 test r Specialties 784-41ed-8 l strips 4ec-27307o Mi nn 30X5 f96cdc 2014-07-19 2014-07-19 [facility] [place] 7af 44875-l [facility] 13:55:00 13:55:00 test r Specialties 0p2-420y-a l strips cbd-5442cc Mi nn 30X5 971bf7 2014-07-19 2014-07-19 [facility]k [facility] [place] 33a 726i5-3 [facility] 13:55:00 13:55:00 test r Specialties 9dd-45fe-a l strips 59f-3f3e8b Mi nn 30X5 f8a4da 2014-07-19 2014-07-19 [facility]k [facility] [place] ed4 z0dt7-d [facility] 13:55:00 13:55:00 test r Specialties fd1-4a7b-9 l strips 0a5-618w23 Mi nn 30X5 v3t135 2014-07-19 2014-07-19 Accu-chek [facility] [place] abc 49947-5 [facility] 13:55:00 13:55:00 test r Specialties 94e-486c-9 l strips q2u-u8l467 Mi nn 30X5 77a6d3 2014-07-19 2014-07-19 [facility]k [facility] [place] 0fd 7g398-0 [facility] 13:55:00 13:55:00 test r Specialties 932-4711-a l strips 22c-03837n Mi nn 30X5 927c2c 2014-07-19 2014-07-19 Acc[facility]k [facility] [place] eb2 4e0s3-6 [facility] 13:55:00 13:55:00 test r Specialties 474-4ab2-a l strips n11-10psal Mi nn 30X5 c533d2 2014-07-19 2014-07-19 [facility]k [facility] [place] 00f 724e9-h [facility] 13:55:00 13:55:00 test r Specialties dad-4eec-8 l strips 926-7c1f5e Mi nn 30X5 8ac8b5 2014-07-19 2014-07-19 [facility]k [facility] [place] dde vz48i-y [facility] 13:55:00 13:55:00 test r Specialties a59-3p1l-2 l strips 8z5-6v113p Mi nn 30X5 chg166 2014-07-19 2014-07-19 [facility]k [facility] [place] f31 p4mhe-8 [facility] 12:55:00 12:55:00 test r Specialties p95-863z-9 l strips 21f-82139v Mi nn 30X5 a78cfd 2014-07-19 2014-07-19 [facility]k [facility] [place] f34 333n9-0 [facility] 12:55:00 12:55:00 test r Specialties 2z7-88cg-8 l strips d02-gsmo60 Mi nn 30X5 194e5f 2014-07-19 2014-07-19 [facility]k [facility] [place] a54 8668e-e [facility] 12:55:00 12:55:00 test r Specialties 67b-4f7f-9 l strips 2t1-9k9cy0 Mi nn 30X5 4ebcd5 2014-07-19 2014-07-19 Acc[facility]k [facility] [place] d34 986m7-p [facility] 12:55:00 12:55:00 test r Specialties l26-153s-q l strips 133-c34dd1 Mi nn 30X5 0ae2bb 2014-07-19 2014-07-19 [facility]k [facility] [place] 58a ih32o-z [facility] 12:55:00 12:55:00 test r Specialties 9ba-4885-9 l strips 7d3-30165j Mi nn 30X5 ec03f5 2014-07-19 2014-07-19 [facility]k [facility] [place] 91a z0822-j [facility] 12:55:00 12:55:00 test r Specialties 49d-4228-a l strips 5fc-019cac Mi nn 30X5 d08c4f 2014-07-19 2014-07-19 [facility]k [facility] [place] 616 t2171-7 [facility] 12:55:00 12:55:00 test r Specialties ee5-4da4-a l strips 4q9-h6lg4b Mi nn 30X5 1u7372 2014-07-19 2014-07-19 [facility]k [facility] [place] d99 s96dk-6 [facility] 12:55:00 12:55:00 test r Specialties 4j5-0156-x l strips fba-4nc559 Mi nn 30X5 71d47f 2014-07-19 2014-07-19 Acc[facility]-chek [facility] [place] da0 85acb-d [facility] 12:55:00 12:55:00 test r Specialties 942-4c5c-8 l strips f6k-8nd0w3 Mi nn 30X5 f52f26 2014-07-19 2014-07-19 [facility]-chek [facility] [place] 93c 11568-g [facility] 12:55:00 12:55:00 test r Specialties fdb-44b9-8 l strips 262-b788c2 Mi nn 30X5 0vd081 2014-07-19 2014-07-19 Acc[facility]-chek [facility] [place] d20 aax2x-u [facility] 12:55:00 12:55:00 test r Specialties 678-4e90-9 l strips 612-bqr701 Mi nn 30X5 efd4fe 2014-07-19 2014-07-19 [facility]k [facility] [place] d4a 6o61g-6 [facility] 12:55:00 12:55:00 test r Specialties 2b3-850f-4 l strips p4e-6a2ss4 Mi nn 30X5 n0p748 2014-07-19 2014-07-19 [facility]k [facility] [place] 781 0w286-6 [facility] 12:55:00 12:55:00 test r Specialties 77c-4331-9 l strips 85a-np7847 Mi nn 30X5 f91f55 2014-07-19 2014-07-19 Accu-chek [facility] [place] dfb 2mdq6-1 [facility] 12:55:00 12:55:00 test r Specialties x31-1uj8-7 l strips 08b-c43f59 Mi nn 30X5 3eed03 2014-07-19 2014-07-19 Acc[facility]k [facility] [place] 9cd 95650-0 [facility] 12:55:00 12:55:00 test r Specialties 781-42a6-b l strips v47-795q18 Mi nn 30X5 34t987 2014-07-19 2014-07-19 Acc[facility]-chek [facility] [place] fc8 52h67-1 [facility] 12:55:00 12:55:00 test r Specialties f5b-429c-4 l strips 120-c4db72 Mi nn 30X5 854436 9346-05-28 2014-07-19 [facility]k [facility] [place] 375 5kh36-f [facility] 12:55:00 12:55:00 test r Specialties 3ab-4629-a l strips 544-1ba9ed Mi nn 30X5 a51fb2 2014-07-19 2014-07-19 [facility]k [facility] [place] 14e 23862-3 [facility] 12:55:00 12:55:00 test r Specialties 01b-4f3d-9 l strips 53d-9xp718 Mi nn 30X5 h85483 2014-07-19 2014-07-19 [facility]k [facility] [place] 766 wt9yz-8 [facility] 12:55:00 12:55:00 test r Specialties elder assistant-4b3d-8 l strips 328-w4e542 Mi nn 30X5 769cc3 2014-07-19 2014-07-19 Acc[facility]k [facility] [place] c3e hv523-e [facility] 12:55:00 12:55:00 test r Specialties 818-445e-a l strips 1t5-in4h08 Mi nn 30X5 3350ce 2014-07-19 2014-07-19 Acc[facility]-chek [facility] [place] 3e5 z748m-6 [facility] 12:55:00 12:55:00 test r Specialties 4ad-4382-8 l strips k02-818s1h Mi nn 30X5 0u8373 2014-07-19 2014-07-19 Accu-chek [facility] [place] 74b 469fd-3 [facility] 12:55:00 12:55:00 test r Specialties bb2-4cea-a l strips 664-2b00a1 Mi nn 30X5 42c7ca 2014-07-19 2014-07-19 [facility]k [facility] [place] 80c y3276-5 [facility] 12:55:00 12:55:00 test r Specialties g9c-87q7-0 l strips k10-h664l9 Mi nn 30X5 3c52ac 2014-07-19 2014-07-19 Acc[facility]-chek [facility] [place] 710 m034k-3 [facility] 12:55:00 12:55:00 test r Specialties 36a-4921-9 l strips k5l-x9o6z6 Mi nn 30X5 0d6e1b 2014-07-19 2014-07-19 Acc[facility]-chek [facility] [place] 96a acd42-d [facility] 12:55:00 12:55:00 test r Specialties 968-4426-9 l strips 58f-7v1706 Mi nn 30X5 d4d21d 2014-07-19 2014-07-19 [facility]k [facility] [place] a54 8668e-e [facility] 12:55:00 12:55:00 test r Specialties 67b-4f7f-9 l strips 7v6-8p0ek4 Mi nn 30X5 4ebcd5 2014-07-19 2014-07-19 Accu-chek [facility] [place] f31 b1lbk-3 [facility] 12:55:00 12:55:00 test r Specialties q76-212i-3 l strips 21f-68553j Mi nn 30X5 a78cfd 2014-07-19 2014-07-19 Accu-chek [facility] [place] d34 549k1-y [facility] 12:55:00 12:55:00 test r Specialties m35-841d-m l strips 133-c34dd1 Mi nn 30X5 0ae2bb 2014-07-19 2014-07-19 Accu-chek [facility] [place] f34 689p8-1 [facility] 12:55:00 12:55:00 test r Specialties 3r7-71ns-4 l strips q25-haqp54 Mi nn 30X5 194e5f 2014-07-19 2014-07-19 Accu-chek [facility] [place] 58a rz08n-g [facility] 12:55:00 12:55:00 test r Specialties 9ba-4885-9 l strips 1m7-16762c Mi nn 30X5 ec03f5 2014-07-19 2014-07-19 Accu-chek [facility] [place] 616 k9680-5 [facility] 12:55:00 12:55:00 test r Specialties ee5-4da4-a l strips 8m8-l7qc2d Mi nn 30X5 8z2350 2014-07-19 2014-07-19 Accu-chek [facility] [place] da0 85acb-d [facility] 12:55:00 12:55:00 test r Specialties 942-4c5c-8 l strips l2h-0wf6u1 Mi nn 30X5 f52f26 2014-07-19 2014-07-19 Accu-chek [facility] [place] d99 w39ir-5 [facility] 12:55:00 12:55:00 test r Specialties 8j0-7176-c l strips fba-9iw469 Mi nn 30X5 71d47f 2014-07-19 2014-07-19 Accu-chek [facility] [place] 91a o1962-c [facility] 12:55:00 12:55:00 test r Specialties 49d-4228-a l strips 5fc-019cac Mi nn 30X5 d08c4f 2014-07-19 2014-07-19 Accu-chek [facility] [place] d4a 9h16d-3 [facility] 12:55:00 12:55:00 test r Specialties 3r9-330v-2 l strips k7k-7u6aq6 Mi nn 30X5 p2f098 2014-07-19 2014-07-19 Accu-chek [facility] [place] fc8 68g40-7 [facility] 12:55:00 12:55:00 test r Specialties y1a-662c-6 l strips 120-c4db72 Mi nn 30X5 373032 1522-05-28 2014-07-19 Accu-chek [facility] [place] 9cd 92344-0 [facility] 12:55:00 12:55:00 test r Specialties 781-42a6-b l strips x61-319a15 Mi nn 30X5 52k458 2014-07-19 2014-07-19 Accu-chek [facility] [place] 93c 47160-a [facility] 12:55:00 12:55:00 test r Specialties fdb-44b9-8 l strips 262-b788c2 Mi nn 30X5 5xh834 2014-07-19 2014-07-19 Accu-chek [facility] [place] d20 zzm0y-p [facility] 12:55:00 12:55:00 test r Specialties 678-4e90-9 l strips 612-qcm197 Mi nn 30X5 efd4fe 2014-07-19 2014-07-19 Accu-chek [facility] [place] 375 7un75-u [facility] 12:55:00 12:55:00 test r Specialties 3ab-4629-a l strips 544-1ba9ed Mi nn 30X5 a51fb2 2014-07-19 2014-07-19 Accu-chek [facility] [place] dfb 7jvv1-3 [facility] 12:55:00 12:55:00 test r Specialties l99-6zj1-0 l strips 08b-c43f59 Mi nn 30X5 3eed03 2014-07-19 2014-07-19 Accu-chek [facility] [place] 3e5 r324j-7 [facility] 12:55:00 12:55:00 test r Specialties 4ad-4382-8 l strips p31-184n0b Mi nn 30X5 9g5727 2014-07-19 2014-07-19 Accu-chek null[facility] [place] 74b 469fd-3 [facility] 12:55:00 12:55:00 test r Specialties bb2-4cea-a l strips 664-2b00a1 Mi nn 30X5 42c7ca 2014-07-19 2014-07-19 Accu-chek null[facility] [place] 80c m0820-5 [facility] 12:55:00 12:55:00 test r Specialties c9b-83k2-8 l strips u36-c798t1 Mi nn 30X5 3c52ac 2014-07-19 2014-07-19 Accu-chek null[facility] [place] 14e 83341-3 [facility] 12:55:00 12:55:00 test r Specialties 01b-4f3d-9 l strips 53d-1wt568 Mi nn 30X5 c81864 2014-07-19 2014-07-19 Accu-chek null[facility] [place] 781 4z531-0 [facility] 12:55:00 12:55:00 test r Specialties 77c-4331-9 l strips 85a-wr7709 Mi nn 30X5 f91f55 2014-07-19 2014-07-19 Accu-chek [facility] [place] 710 o877j-7 [facility] 12:55:00 12:55:00 test r Specialties 36a-4921-9 l strips i9l-f8d2u1 Mi nn 30X5 0d6e1b 2014-07-19 2014-07-19 Accu-chek null[facility] [place] 766 ht4bv-0 [facility] 12:55:00 12:55:00 test r Specialties elder assistant-4b3d-8 l strips 328-q6n675 Mi nn 30X5 769cc3 2014-07-19 2014-07-19 Accu-chek [facility] [place] c3e nk257-f [facility] 12:55:00 12:55:00 test r Specialties 818-445e-a l strips 8i6-zl8x76 Mi nn 30X5 3350ce 2014-07-19 2014-07-19 Accu-chek [facility] [place] 96a acd42-d [facility] 12:55:00 12:55:00 test r Specialties 968-4426-9 l strips 58f-8s1667 Mi nn 30X5 d4d21d 2014-07-19 2014-07-19 [facility] [place] 3286 49 eClinic 07:55:00 07:55:00 [facility] 2014-07-05 2014-07-05 rx refill nullFl[facility] [place] fc8 eca12-0 [facility] 21:45:00 21:45:00 r Specialties z91-076d-4 l 4cd-644e4a Mi nn b635d3 2014-07-05 2014-07-05 rx refill nullFl[facility] [place] b81 25f48-7 [facility] 21:45:00 21:45:00 r Specialties 3ad-469b-9 l t14-4f21o9 Mi nn faee71 2014-07-05 2014-07-05 rx refill [facility] [place] 248 x0h32-q [facility] 21:45:00 21:45:00 r Specialties 5cd-4b4e-8 l 2b5-356b5p Im nn 04a8f2 2014-07-05 2014-07-05 rx refill nullFl[facility] [place] d71 9563c-9 [facility] 21:45:00 21:45:00 r Specialties 824-4988-b l 11a-50i624 Mi nn 11eb7f 2014-07-05 2014-07-05 rx refill [facility]Fl[facility] [place] 5b6 52244-2 [facility] 21:45:00 21:45:00 r Specialties w3m-8kf3-e l 7s1-8l4630 Mi nn q9542h 2014-07-05 2014-07-05 rx refill [facility] [place] 6f0 45r02-a [facility] 21:45:00 21:45:00 r Specialties a00-0l27-5 l edb-24330r Mi nn 85efcf 2014-07-05 2014-07-05 rx refill null[facility] [place] 833 08670-j [facility] 21:45:00 21:45:00 r Specialties 621-4390-8 l c28-580x00 Mi nn cf8fa9 2014-07-05 2014-07-05 rx refill [facility] [place] 7e1 bg4p5-m [facility] 21:45:00 21:45:00 r Specialties 6da-4f33-9 l ff2-hj6299 Mi nn 52db0e 2014-07-05 2014-07-05 rx refill nullFl[facility] [place] f24 lo085-1 [facility] 21:45:00 21:45:00 r Specialties 128-445e-b l 13a-373e7b Mi nn 32u240 2014-07-05 2014-07-05 rx refill nullFl[facility] [place] e2b 78085-0 [facility] 21:45:00 21:45:00 r Specialties f38-0f4x-j l 4ef-0575bd Mi nn 62ee25 2014-07-05 2014-07-05 rx refill nullFl[facility] [place] bc0 7ify4-5 [facility] 21:45:00 21:45:00 r Specialties 245-4a55-9 l 976-0648d4 Mi nn a9f39a 2014-07-05 2014-07-05 rx refill [facility] [place] 750 55jo2-y [facility] 21:45:00 21:45:00 r Specialties 6fb-4b14-a l y8o-s40k2w Mi nn 383c30 2014-07-05 2014-07-05 rx refill nullFl[facility] [place] 766 w8629-0 [facility] 21:45:00 21:45:00 r Specialties 465-4503-a l 73e-5b8c55 Mi nn 7h0302 2014-07-05 2014-07-05 rx refill [facility]Fl[facility] [place] bd8 54j2n-4 [facility] 21:45:00 21:45:00 r Specialties 049-475f-9 l u83-l405cd Mi nn 1121be 2014-07-05 2014-07-05 rx refill nullFl[facility] [place] f6a z4401-j [facility] 21:45:00 21:45:00 r Specialties e74-2045-6 l r6y-93to02 [facility] nn cf2e5d 2014-07-05 2014-07-05 rx refill nullFlavo [place] 4d9 00bm8-2 [facility] 21:45:00 21:45:00 r Specialties 890-439c-8 l 8cc-dbafc3 [facility] nn 629c76 2014-07-05 2014-07-05 rx refill nullFl[facility] [place] c7d 02183-f [facility] 21:45:00 21:45:00 r Specialties 18d-403a-b l 7ee-ef9ef8 [facility] nn 2i007h 2014-07-05 2014-07-05 rx refill nullFl[facility] [place] 58c 8ee8y-v [facility] 21:45:00 21:45:00 r Specialties 006-46d3-8 l fd1-137fb9 [facility] nn 282690 6658-05-14 2014-07-05 rx refill nullFl[facility] [place] 11d sr4e8-3 [facility] 21:45:00 21:45:00 r Specialties 4ff-4435-b l a10-x4xos7 [facility] nn 84481s 2014-07-05 2014-07-05 rx refill nullFl[facility] [place] dc2 99062-w [facility] 21:45:00 21:45:00 r Specialties 33a-4e53-9 l 3y6-2q8m2a [facility] nn 7caa98 2014-07-05 2014-07-05 rx refill nullFl[facility] [place] 669 9l784-o [facility] 21:45:00 21:45:00 r Specialties j45-431m-o l 654-69e3bf Mi nn fb1fa9 2014-07-05 2014-07-05 rx refill nullFl[facility] [place] 563 v1775-8 [facility] 21:45:00 21:45:00 r Specialties 014-487c-a l 4fa-c9f71c Mi nn 1aa7f7 2014-07-05 2014-07-05 rx refill [facility] [place] 329 0b597-2 [facility] 21:45:00 21:45:00 r Specialties 3y9-5i3y-a l a80-5508w2 Mi nn c41f6e 2014-07-05 2014-07-05 rx refill [facility]Fl[facility] [place] 248 u2d38-q [facility] 21:45:00 21:45:00 r Specialties 5cd-4b4e-8 l 2k9-499e6b Mi nn 04a8f2 2014-07-05 2014-07-05 rx refill nullFl[facility] [place] fc8 eca12-0 [facility] 21:45:00 21:45:00 r Specialties c82-491e-3 l 4cd-644e4a Mi nn b635d3 2014-07-05 2014-07-05 rx refill [facility] [place] 7e1 ls9w6-b [facility] 21:45:00 21:45:00 r Specialties 6da-4f33-9 l ff2-vd0533 Mi nn 52db0e 2014-07-05 2014-07-05 rx refill nullFl[facility] [place] 833 08383-t [facility] 21:45:00 21:45:00 r Specialties 621-4390-8 l i31-254t99 Mi nn cf8fa9 2014-07-05 2014-07-05 rx refill nullFl[facility] [place] b81 62r83-8 [facility] 21:45:00 21:45:00 r Specialties 3ad-469b-9 l k95-2c89q4 Mi nn faee71 2014-07-05 2014-07-05 rx refill nullFl[facility] [place] f24 xr090-6 [facility] 21:45:00 21:45:00 r Specialties 128-445e-b l 13a-373e7b Mi nn 27l852 2014-07-05 2014-07-05 rx refill [facility]Fl[facility] [place] 5b6 08463-4 [facility] 21:45:00 21:45:00 r Specialties n0w-8dt9-p l 9v4-9o9646 [facility] nn a9792u 2014-07-05 2014-07-05 rx refill nullFlavo [place] d71 9563c-9 [facility] 21:45:00 21:45:00 r Specialties 824-4988-b l 11a-13b999 [facility] nn 11eb7f 2014-07-05 2014-07-05 rx refill nullFl[facility] [place] 6f0 97u71-m [facility] 21:45:00 21:45:00 r Specialties t69-1p03-0 l edb-71077e [facility] nn 85efcf 2014-07-05 2014-07-05 rx refill nullFlavo [place] e2b 51942-7 [facility] 21:45:00 21:45:00 r Specialties o58-3y5m-d l 4ef-0575bd [facility] nn 62ee25 2014-07-05 2014-07-05 rx refill [facility]Fl[facility] [place] 4d9 66ue6-5 [facility] 21:45:00 21:45:00 r Specialties 890-439c-8 l 8cc-dbafc3 [facility] nn 629c76 2014-07-05 2014-07-05 rx refill nullFl[facility] [place] 766 d5355-3 [facility] 21:45:00 21:45:00 r Specialties 465-4503-a l 73e-5b8c55 [facility] nn 1d6367 2014-07-05 2014-07-05 rx refill nullFl[facility] [place] 58c 9yr1a-d [facility] 21:45:00 21:45:00 r Specialties 006-46d3-8 l fd1-137fb9 [facility] nn 755054 8776-05-14 2014-07-05 rx refill nullFl[facility] [place] bd8 45k0s-2 [facility] 21:45:00 21:45:00 r Specialties 049-475f-9 l y97-w208hh [facility] nn 1121be 2014-07-05 2014-07-05 rx refill [facility]Fl[facility] [place] 750 86rr1-v [facility] 21:45:00 21:45:00 r Specialties 6fb-4b14-a l o2p-p59x1m [facility] nn 383c30 2014-07-05 2014-07-05 rx refill [facility]Fl[facility] [place] f6a a4867-f [facility] 21:45:00 21:45:00 r Specialties u29-9542-9 l b7d-75ex01 Mi nn cf2e5d 2014-07-05 2014-07-05 rx refill [facility]Fl[facility] [place] 669 0a055-m [facility] 21:45:00 21:45:00 r Specialties w07-001g-j l 654-69e3bf Mi nn fb1fa9 2014-07-05 2014-07-05 rx refill [facility] [place] 11d ea0l8-5 [facility] 21:45:00 21:45:00 r Specialties 4ff-4435-b l i17-b5fgx6 Mi nn 19497t 2014-07-05 2014-07-05 rx refill [facility]Fl[facility] [place] c7d 62996-b [facility] 21:45:00 21:45:00 r Specialties 18d-403a-b l 7ee-ef9ef8 Mi nn 9f676q 2014-07-05 2014-07-05 rx refill [facility]Fl[facility] [place] bc0 0cpc9-1 [facility] 21:45:00 21:45:00 r Specialties 245-4a55-9 l 976-0648d4 Mi nn a9f39a 2014-07-05 2014-07-05 rx refill [facility]Fl[facility] [place] dc2 47799-b [facility] 21:45:00 21:45:00 r Specialties 33a-4e53-9 l 1i8-3d1l0k Mi nn 7caa98 2014-07-05 2014-07-05 rx refill [facility] [place] 329 9h290-5 [facility] 21:45:00 21:45:00 r Specialties 3r5-9i4h-z l a63-7425u6 Mi nn c41f6e 2014-07-05 2014-07-05 rx refill [facility]Fl[facility] [place] 563 s7970-5 [facility] 21:45:00 21:45:00 r Specialties 014-487c-a l 4fa-c9f71c Mi nn 1aa7f7 2014-07-05 2014-07-05 rx refill [facility] [place] 855 qw064-k [facility] 20:45:00 20:45:00 r Specialties q6n-2677-q l r6u-04xo9w Mi nn a578b4 2014-07-05 2014-07-05 rx refill [facility] [place] 128 cda67-3 [facility] 20:45:00 20:45:00 r Specialties k18-9136-g l 47c-df6d6f Mi nn 49ece2 2014-07-05 2014-07-05 rx refill [facility]Fl[facility] [place] d2c s9766-2 [facility] 20:45:00 20:45:00 r Specialties 65d-4e2f-9 l o6d-42662t Mi nn ec50a7 2014-07-05 2014-07-05 rx refill [facility]Fl[facility] [place] c05 139h4-i [facility] 20:45:00 20:45:00 r Specialties fac-46ba-b l 5l5-7c9jz5 Mi nn f6f4cd 2014-07-05 2014-07-05 rx refill nullFl[facility] [place] 47d 7403c-0 [facility] 20:45:00 20:45:00 r Specialties 7c7-79u8-d l 0dc-4b2ab2 Mi nn 2f7a93 2014-07-05 2014-07-05 rx refill nullFlavo [place] fbd 15329-9 [facility] 20:45:00 20:45:00 r Specialties 668-4703-b l da2-1fcb72 Mi nn 789ed1 2014-07-05 2014-07-05 rx refill [facility] [place] 9a6 752ec-5 [facility] 20:45:00 20:45:00 r Specialties 3r6-0821-0 l x75-8y6i5u Mi nn 78d0de 2014-07-05 2014-07-05 rx refill [place] [place] 6c1 d5xm5-2 [facility] 20:45:00 20:45:00 r Specialties 42c-46bc-b l 553-l8617c Mi nn 3ccbf2 2014-07-05 2014-07-05 rx refill null[facility] [place] d5e 0mq24-5 [facility] 20:45:00 20:45:00 r Specialties l9s-1an1-u l 8t2-axgc3v Mi nn f5a400 2014-07-05 2014-07-05 rx refill null[facility] [place] 319 a12uh-u [facility] 20:45:00 20:45:00 r Specialties 3q8-2sk2-3 l g15-010u4c Mi nn 1018fd 2014-07-05 2014-07-05 rx refill nullFl[facility] [place] 55b 7k043-y [facility] 20:45:00 20:45:00 r Specialties a6f-5mqb-y l efa-081157 Mi nn 2dc66e 2014-07-05 2014-07-05 rx refill null[facility] [place] 3d3 51u7d-h [facility] 20:45:00 20:45:00 r Specialties 86f-4145-a l 926-ccc96a Mi nn 368360 3387-05-14 2014-07-05 rx refill null[facility] [place] bf8 0d681-4 [facility] 20:45:00 20:45:00 r Specialties 7ea-47b8-9 l 678-cc7c8f Mi nn [id number] 2014-07-05 2014-07-05 rx refill null[facility] [place] f8f o5890-b [facility] 20:45:00 20:45:00 r Specialties 19c-41c7-8 l b7r-11vb00 Mi nn c867e9 2014-07-05 2014-07-05 rx refill [facility] [place] 01b g629o-4 [facility] 20:45:00 20:45:00 r Specialties 1r7-7c8z-s l 3v3-c26182 Mi nn b8s876 2014-07-05 2014-07-05 rx refill nullFl[facility] [place] 222 08d03-4 [facility] 20:45:00 20:45:00 r Specialties 862-4ae4-a l f05-7va9j0 Mi nn 29v641 2014-07-05 2014-07-05 rx refill nullFl[facility] [place] fc9 oq91e-a [facility] 20:45:00 20:45:00 r Specialties 81f-4103-a l y73-k775dr Mi nn 429593 6776-05-14 2014-07-05 rx refill nullFl[facility] [place] b8b 322f0-d [facility] 20:45:00 20:45:00 r Specialties aed-4c73-b l 4be-kb8116 [facility] nn 05cea1 2014-07-05 2014-07-05 rx refill nullFl[facility] [place] ea2 u44d4-8 [facility] 20:45:00 20:45:00 r Specialties 1bd-4f70-b l n44-1434st [facility] nn fe5c49 2014-07-05 2014-07-05 rx refill nullFl[facility] [place] e1b g968g-8 [facility] 20:45:00 20:45:00 r Specialties 89f-4e85-a l 17f-f17558 [facility] aleja kq2916 2014-07-05 2014-07-05 rx refill nullFl[facility] [place] 992 21y2g-2 [facility] 20:45:00 20:45:00 r Specialties 871-446c-9 l da5-8afe89 [facility] nn g2p578 2014-07-05 2014-07-05 rx refill nullFl[facility] [place] 6c6 6ov7o-2 [facility] 20:45:00 20:45:00 r Specialties 7w3-21c1-a l g56-828mp0 [facility] nn 1a2d37 2014-07-05 2014-07-05 rx refill nullFl[facility] [place] a7d 0pds7-x [facility] 20:45:00 20:45:00 r Specialties 3x1-1hvn-7 l 6q9-d9e107 [facility] 8724e6 2014-07-05 2014-07-05 rx refill nullFl[facility] [place] 09e 5ceac-0 [facility] 20:45:00 20:45:00 r Specialties 97f-46a9-8 l 260-ffcb6f [facility] aleja b24cb1 2014-07-05 2014-07-05 rx refill nullFl[facility] [place] a3a eaa06-4 [facility] 20:45:00 20:45:00 r Specialties 977-46d8-8 l c67-un2931 [facility] nn 724400 7249-05-14 2014-07-05 rx refill nullFl[facility] [place] d2c f9269-5 [facility] 20:45:00 20:45:00 r Specialties 65d-4e2f-9 l q7f-78077p Mi nn ec50a7 2014-07-05 2014-07-05 rx refill nullFl[facility] [place] 855 zb182-c [facility] 20:45:00 20:45:00 r Specialties g5a-4851-j l n6i-80uw8o Mi nn a578b4 2014-07-05 2014-07-05 rx refill nullFl[facility] [place] c05 667q2-z [facility] 20:45:00 20:45:00 r Specialties fac-46ba-b l 3k0-7f4wa5 Mi nn f6f4cd 2014-07-05 2014-07-05 rx refill nullFl[facility] [place] 128 cda67-3 [facility] 20:45:00 20:45:00 r Specialties e70-5199-e l 47c-df6d6f Mi nn 49ece2 2014-07-05 2014-07-05 rx refill nullFl[facility] [place] 47d 7403c-0 [facility] 20:45:00 20:45:00 r Specialties 1z9-87w0-w l 0dc-4b2ab2 Mi nn 2f7a93 2014-07-05 2014-07-05 rx refill null[facility] [place] 9a6 752ec-5 [facility] 20:45:00 20:45:00 r Specialties 2j9-3916-8 l j28-3j7e4g Mi nn 78d0de 2014-07-05 2014-07-05 rx refill null[facility] [place] d5e 6ef95-2 [facility] 20:45:00 20:45:00 r Specialties r8y-7ij2-a l 2o5-nyyc5b Mi nn z6x223 2014-07-05 2014-07-05 rx refill null[facility] [place] 6c1 b1tp1-9 [facility] 20:45:00 20:45:00 r Specialties 42c-46bc-b l 553-q9206e Mi nn 3ccbf2 2014-07-05 2014-07-05 rx refill nullFl[facility] [place] fbd 79064-7 [facility] 20:45:00 20:45:00 r Specialties 668-4703-b l da2-1fcb72 Mi nn 789ed1 2014-07-05 2014-07-05 rx refill nullFl[facility] [place] 3d3 62u5i-p [facility] 20:45:00 20:45:00 r Specialties 86f-4145-a l 926-ccc96a [facility] nn [id number] 1538-05-14 2014-07-05 rx refill nullFl[facility] [place] 222 22k63-3 [facility] 20:45:00 20:45:00 r Specialties 862-4ae4-a l h82-9ca1k6 [facility] nn 10p568 2014-07-05 2014-07-05 rx refill nullFl[facility] [place] 01b c536t-0 [facility] 20:45:00 20:45:00 r Specialties 0k4-9f8i-l l 7v6-t49575 [facility] nn t9d093 2014-07-05 2014-07-05 rx refill nullFl[facility] [place] 319 x67zq-b [facility] 20:45:00 20:45:00 r Specialties 1s2-1zi1-1 l r74-054c2f [facility] nn 1018fd 2014-07-05 2014-07-05 rx refill nullFlavo [place] 55b 4e692-h [facility] 20:45:00 20:45:00 r Specialties a1u-6ncz-e l efa-632157 [facility] nn 2dc66e 2014-07-05 2014-07-05 rx refill [facility] [place] fc9 vx72u-s [facility] 20:45:00 20:45:00 r Specialties 81f-4103-a l o12-q819bs [facility] nn [id number] 1331-05-14 2014-07-05 rx refill [facility] [place] f8f z2570-d [facility] 20:45:00 20:45:00 r Specialties 19c-41c7-8 l g3y-37iw35 [facility] nn c867e9 2014-07-05 2014-07-05 rx refill [facility] [place] 992 34d7z-0 [facility] 20:45:00 20:45:00 r Specialties 871-446c-9 l da5-8afe89 [facility] nn l9v253 2014-07-05 2014-07-05 rx refill [facility] [place] 6c6 0tq8z-3 [facility] 20:45:00 20:45:00 r Specialties 1h3-52z1-z l y33-395rl4 Mi nn 1a2d37 2014-07-05 2014-07-05 rx refill [facility] [place] a7d 4mgc6-b [facility] 20:45:00 20:45:00 r Specialties 2n8-7uai-4 l 8l0-w5r645 Mi nn 8724e6 2014-07-05 2014-07-05 rx refill [facility] [place] b8b 732e0-x [facility] 20:45:00 20:45:00 r Specialties aed-4c73-b l 4be-ky3096 Mi nn 05cea1 2014-07-05 2014-07-05 rx refill [facility] [place] bf8 5i120-6 [facility] 20:45:00 20:45:00 r Specialties 7ea-47b8-9 l 678-cc7c8f [facility] nn [id number] 2014-07-05 2014-07-05 rx refill [facility] [place] 09e 5ceac-0 [facility] 20:45:00 20:45:00 r Specialties 97f-46a9-8 l 260-ffcb6f [facility] nn b24cb1 2014-07-05 2014-07-05 rx refill [facility] [place] ea2 u24s2-3 [facility] 20:45:00 20:45:00 r Specialties 1bd-4f70-b l k53-7424lt [facility] nn fe5c49 2014-07-05 2014-07-05 rx refill [facility] [place] e1b h499c-8 [facility] 20:45:00 20:45:00 r Specialties 89f-4e85-a l 17f-y83919 [facility] nn hj0509 2014-07-05 2014-07-05 rx refill [facility] [place] a3a eaa06-4 [facility] 20:45:00 20:45:00 r Specialties 977-46d8-8 l b15-ru5357 [facility] nn [id number] 3091-04-22 2014-06-13 Wants to [facility] [place] e9fc 3425-6 [facility] 16:40:00 16:40:00 know where r Specialties 9ce-449 6-b l MRA is 9z7-ok1u67 Mi nn scheduled 953839 at. 2014-06-13 2014-06-13 Wants to [facility] [place] 6c4d 1c86-f [facility] 16:40:00 16:40:00 know where r Specialties w8f-7pd b-8 l MRA is b4c-62637t Mi nn scheduled 36f8c0 at. 2014-06-13 2014-06-13 Wants to [facility] [place] 40f7 4691-e [facility] 16:40:00 16:40:00 know where r Specialties 6k7-584 d-b l MRA is 236-e27e2b Mi nn scheduled vw426d at. 2014-06-13 2014-06-13 Wants to [facility] [place] aad9 39a7-a [facility] 16:40:00 16:40:00 know where r Specialties k4p-6o8 0-8 l MRA is d15-s7t321 Mi nn scheduled 7326ae at. 2014-06-13 2014-06-13 Wants to [facility] [place] a71d 8096-a [facility] 16:40:00 16:40:00 know where r Specialties amanuel-4c6 3-9 l MRA is 00d-0fcdc8 Mi nn scheduled 18377q at. 2014-06-13 2014-06-13 Wants to [facility] [place] cf89 8f04-e [facility] 16:40:00 16:40:00 know where r Specialties 0fb-434 2-8 l MRA is 10a-16358t Mi nn scheduled fea84a at. 2014-06-13 2014-06-13 Wants to [facility] [place] 301b 13eb-5 [facility] 16:40:00 16:40:00 know where r Specialties b97-4cf 7-8 l MRA is z23-9d5694 Mi nn scheduled 47473k at. 2014-06-13 2014-06-13 Wants to [facility] [place] 69ce 8c98-7 [facility] 16:40:00 16:40:00 know where r Specialties aa2-457 6-9 l MRA is r74-938y1d Mi nn scheduled 004012 at. 2014-06-13 2014-06-13 Wants to [facility] [place] 3f00 bbcf-c [facility] 16:40:00 16:40:00 know where r Specialties 00c-43b d-a l MRA is 75b-271260 Mi nn scheduled 42c04d at. 2014-06-13 2014-06-13 Wants to [facility] [place] 4a5e 6aaf-0 [facility] 16:40:00 16:40:00 know where r Specialties 872-441 f-9 l MRA is w03-3ibrj9 Mi nn scheduled qym720 at. 2014-06-13 2014-06-13 Wants to [facility] [place] 3c8f 995e-3 [facility] 16:40:00 16:40:00 know where r Specialties y6k-11x 9-9 l MRA is ad2-t45035 Mi nn scheduled be2fb2 at. 2014-06-13 2014-06-13 Wants to [facility] [place] 35e3 627e-6 [facility] 16:40:00 16:40:00 know where r Specialties 442-4ef d-b l MRA is 11e-721396 Mi nn scheduled c505c3 at. 2014-06-13 2014-06-13 Wants to [facility] [place] 43dd 81d7-9 [facility] 16:40:00 16:40:00 know where r Specialties 689-43e 4-a l MRA is 9cd-b68034 Mi nn scheduled 6393dd at. 2014-06-13 2014-06-13 Wants to [facility] [place] 228d 4e28-c [facility] 16:40:00 16:40:00 know where r Specialties 56d-4c6 5-b l MRA is 11c-el4735 Mi nn scheduled fcb9ed at. 2014-06-13 2014-06-13 Wants to [facility] [place] 3901 6070-2 [facility] 16:40:00 16:40:00 know where r Specialties cba-4f2 b-8 l MRA is d91-z8to7f Mi nn scheduled 9034a1 at. 2014-06-13 2014-06-13 Wants to [facility] [place] be12 5e15-2 [facility] 16:40:00 16:40:00 know where r Specialties 68c-400 8-b l MRA is ce1-1bbdc1 Mi nn scheduled c59f52 at. 2014-06-13 2014-06-13 Wants to [facility] [place] 14ec caf6-3 [facility] 16:40:00 16:40:00 know where r Specialties 7v9-75y 1-8 l MRA is 5f3-6591ww Mi nn scheduled b8b6e8 at. 2014-06-13 2014-06-13 Wants to [facility] [place] 827c dc52-c [facility] 16:40:00 16:40:00 know where r Specialties 023-4ea a-8 l MRA is 1f7-73432g Mi nn scheduled 1zi126 at. 2014-06-13 2014-06-13 Wants to [facility] [place] 6a18 621c-0 [facility] 16:40:00 16:40:00 know where r Specialties 9bc-4be e-9 l MRA is 56b-6673b8 Mi nn scheduled acedfe at. 2014-06-13 2014-06-13 Wants to [facility] [place] 8b98 c6c3-2 [facility] 16:40:00 16:40:00 know where r Specialties cfd-485 d-9 l MRA is 7ce-7beffd Mi nn scheduled 92afd2 at. 2014-06-13 2014-06-13 Wants to [facility] [place] fc28 048f-2 [facility] 16:40:00 16:40:00 know where r Specialties c03-4a6 0-b l MRA is 4bf-183925 Mi nn scheduled u3w074 at. 2014-06-13 2014-06-13 Wants to [facility] [place] 1041 6d63-9 [facility] 16:40:00 16:40:00 know where r Specialties 75e-406 c-b l MRA is 5m0-iy86h9 Mi nn scheduled 733bb9 at. 2014-06-13 2014-06-13 Wants to [facility] [place] 3a1f 73df-c [facility] 16:40:00 16:40:00 know where r Specialties f84-4e7 5-9 l MRA is 8ed-21f87d Mi nn scheduled 14753w at. 2014-06-13 2014-06-13 Wants to [facility] [place] 40f7 4691-e [facility] 16:40:00 16:40:00 know where r Specialties 0h7-513 d-b l MRA is 236-e27e2b Mi nn scheduled px596r at. 2014-06-13 2014-06-13 Wants to [facility] [place] e9fc 3425-6 [facility] 16:40:00 16:40:00 know where r Specialties 9ce-449 6-b l MRA is 1a6-vd5t84 Mi nn scheduled 728180 at. 2014-06-13 2014-06-13 Wants to [facility] [place] 69ce 8c98-7 [facility] 16:40:00 16:40:00 know where r Specialties aa2-457 6-9 l MRA is e58-884m3w Mi nn scheduled 251857 at. 2014-06-13 2014-06-13 Wants to [facility] [place] 301b 13eb-5 [facility] 16:40:00 16:40:00 know where r Specialties b97-4cf 7-8 l MRA is n57-6h8593 Mi nn scheduled 36602b at. 2014-06-13 2014-06-13 Wants to [facility] [place] 6c4d 1c86-f [facility] 16:40:00 16:40:00 know where r Specialties w3y-2ej b-8 l MRA is d0l-82237z Mi nn scheduled 36f8c0 at. 2014-06-13 2014-06-13 Wants to [facility] [place] 3f00 bbcf-c [facility] 16:40:00 16:40:00 know where r Specialties 00c-43b d-a l MRA is 75b-500065 Mi nn scheduled 42c04d at. 2014-06-13 2014-06-13 Wants to [facility] [place] a71d 8096-a [facility] 16:40:00 16:40:00 know where r Specialties amanuel-4c6 3-9 l MRA is 00d-0fcdc8 Mi nn scheduled 16891k at. 2014-06-13 2014-06-13 Wants to [facility] [place] aad9 39a7-a [facility] 16:40:00 16:40:00 know where r Specialties l6u-0g2 0-8 l MRA is e42-f5v380 Mi nn scheduled 7326ae at. 2014-06-13 2014-06-13 Wants to [facility] [place] cf89 8f04-e [facility] 16:40:00 16:40:00 know where r Specialties 0fb-434 2-8 l MRA is 10a-38400m Mi nn scheduled fea84a at. 2014-06-13 2014-06-13 Wants to [facility] [place] 4a5e 6aaf-0 [facility] 16:40:00 16:40:00 know where r Specialties 872-441 f-9 l MRA is i44-6oeql2 Mi nn scheduled llm740 at. 2014-06-13 2014-06-13 Wants to [facility] [place] be12 5e15-2 [facility] 16:40:00 16:40:00 know where r Specialties 68c-400 8-b l MRA is ce1-1bbdc1 Mi nn scheduled c59f52 at. 2014-06-13 2014-06-13 Wants to [facility] [place] 43dd 81d7-9 [facility] 16:40:00 16:40:00 know where r Specialties 689-43e 4-a l MRA is 9cd-u58679 Mi nn scheduled 6393dd at. 2014-06-13 2014-06-13 Wants to [facility] [place] 827c dc52-c [facility] 16:40:00 16:40:00 know where r Specialties 023-4ea a-8 l MRA is 7t8-19646o Mi nn scheduled 2nb146 at. 2014-06-13 2014-06-13 Wants to [facility] [place] 228d 4e28-c [facility] 16:40:00 16:40:00 know where r Specialties 56d-4c6 5-b l MRA is 11c-om7220 Mi nn scheduled fcb9ed at. 2014-06-13 2014-06-13 Wants to [facility] [place] 35e3 627e-6 [facility] 16:40:00 16:40:00 know where r Specialties 442-4ef d-b l MRA is 11e-112465 Mi nn scheduled c505c3 at. 2014-06-13 2014-06-13 Wants to [facility] [place] 3901 6070-2 [facility] 16:40:00 16:40:00 know where r Specialties cba-4f2 b-8 l MRA is r49-w2rg9n Mi nn scheduled 9034a1 at. 2014-06-13 2014-06-13 Wants to [facility] [place] fc28 048f-2 [facility] 16:40:00 16:40:00 know where r Specialties c03-4a6 0-b l MRA is 4bf-228470 Mi nn scheduled i8y539 at. 2014-06-13 2014-06-13 Wants to [facility] [place] 6a18 621c-0 [facility] 16:40:00 16:40:00 know where r Specialties 9bc-4be e-9 l MRA is 56b-6673b8 Mi nn scheduled acedfe at. 2014-06-13 2014-06-13 Wants to [facility] [place] 14ec caf6-3 Mem[facility] 16:40:00 16:40:00 know where r Specialties 7j3-21x 1-8 l MRA is 3y5-5953py Mi nn scheduled b8b6e8 at. 2014-06-13 2014-06-13 Wants to [facility] [place] 3c8f 995e-3 [facility] 16:40:00 16:40:00 know where r Specialties j1s-24y 9-9 l MRA is ad2-b12107 Mi nn scheduled be2fb2 at. 2014-06-13 2014-06-13 Wants to [facility] [place] 8b98 c6c3-2 [facility] 16:40:00 16:40:00 know where r Specialties cfd-485 d-9 l MRA is 7ce-7beffd Mi nn scheduled 92afd2 at. 2014-06-13 2014-06-13 Wants to [facility] [place] 3a1f 73df-c [facility] 16:40:00 16:40:00 know where r Specialties f84-4e7 5-9 l MRA is 8ed-21f87d Mi nn scheduled 73439l at. 2014-06-13 2014-06-13 Wants to [facility] [place] 1041 6d63-9 [facility] 16:40:00 16:40:00 know where r Specialties 75e-406 c-b l MRA is 5m3-fg70p9 Mi nn scheduled 733bb9 at. 2014-06-13 2014-06-13 Wants to [facility] [place] b368 6082-4 [facility] 15:40:00 15:40:00 know where r Specialties 678-451 4-b l MRA is f91-h6u45g Mi nn scheduled 05p401 at. 2014-06-13 2014-06-13 Wants to [facility] [place] 2bf0 15de-7 Mem[facility] 15:40:00 15:40:00 know where r Specialties 5y5-815 7-9 l MRA is 6ff-911284 Mi nn scheduled cr408j at. 2014-06-13 2014-06-13 Wants to [facility] [place] 3165 25f0-1 [facility] 15:40:00 15:40:00 know where r Specialties 07d-450 6-a l MRA is dbe-47d19b Mi nn scheduled 04864n at. 2014-06-13 2014-06-13 Wants to [facility] [place] 5f35 5d0e-7 [facility] 15:40:00 15:40:00 know where r Specialties 1ff-403 c-8 l MRA is 7bb-5lk645 Mi nn scheduled n8v267 at. 2014-06-13 2014-06-13 Wants to [facility] [place] 3ce9 e119-6 [facility] 15:40:00 15:40:00 know where r Specialties o5o-3d7 8-9 l MRA is l48-ws8380 Mi nn scheduled 9022ac at. 2014-06-13 2014-06-13 Wants to [facility] [place] 29d8 94ae-b [facility] 15:40:00 15:40:00 know where r Specialties 071-4e7 a-a l MRA is ceb-ff6fe2 Mi nn scheduled 670929 at. 2014-06-13 2014-06-13 Wants to [facility] [place] 8872 10cc-e Mem[facility] 15:40:00 15:40:00 know where r Specialties fb6-40e 6-b l MRA is ce4-w11822 Mi nn scheduled mor171 at. 2014-06-13 2014-06-13 Wants to [facility] [place] a2df af93-6 [facility] 15:40:00 15:40:00 know where r Specialties ec9-4fe 4-b l MRA is i7x-05o547 Mi nn scheduled 6e7624 at. 2014-06-13 2014-06-13 Wants to [facility] [place] 4ceb ae0b-8 [facility] 15:40:00 15:40:00 know where r Specialties 538-4fa 4-a l MRA is 97e-m42501 Mi nn scheduled b89cf1 at. 2014-06-13 2014-06-13 Wants to [facility] [place] 220b c17b-3 [facility] 15:40:00 15:40:00 know where r Specialties 218-475 1-8 l MRA is 302-edbc36 Mi nn scheduled b5fa0c at. 2014-06-13 2014-06-13 Wants to [facility] [place] 0ee7 d942-c [facility] 15:40:00 15:40:00 know where r Specialties f55-41b 3-b l MRA is 23a-76eb75 Mi nn scheduled as6212 at. 2014-06-13 2014-06-13 Wants to [facility] [place] 12b7 8ec8-f [facility] 15:40:00 15:40:00 know where r Specialties 53e-445 7-a l MRA is s25-3vf41z Mi nn scheduled 9ee8c4 at. 2014-06-13 2014-06-13 Wants to [facility] [place] a598 9c82-8 [facility] 15:40:00 15:40:00 know where r Specialties a0o-88r 8-a l MRA is m3p-0jkc05 Mi nn scheduled 00c34e at. 2014-06-13 2014-06-13 Wants to [facility] [place] 147a c82d-3 [facility]oria 15:40:00 15:40:00 know where r Specialties 4e1-82k 2-a l MRA is 3g6-ox58w2 Mi nn scheduled 3r916s at. 2014-06-13 2014-06-13 Wants to [facility] [place] 8d11 69a8-6 [facility] 15:40:00 15:40:00 know where r Specialties 189-4b6 2-a l MRA is 90f-402ce8 Mi nn scheduled e616a4 at. 2014-06-13 2014-06-13 Wants to [facility] [place] 6ae4 1134-0 [facility] 15:40:00 15:40:00 know where r Specialties 61b-4d9 7-b l MRA is 71d-3cabc1 Mi nn scheduled 23001x at. 2014-06-13 2014-06-13 Wants to [facility] [place] 87b9 9181-e Mem[facility] 15:40:00 15:40:00 know where r Specialties f49-475 d-8 l MRA is ea3-a30c18 Mi nn scheduled 71443o at. 2014-06-13 2014-06-13 Wants to [facility] [place] 814f 3d08-e Memoria 15:40:00 15:40:00 know where r Specialties 918-4f6 9-b l MRA is 05a-0s506q Mi nn scheduled cfc96c at. 2014-06-13 2014-06-13 Wants to [facility] [place] 17fd 7d18-a Memoria 15:40:00 15:40:00 know where r Specialties 3ba-485 5-9 l MRA is j24-3170t2 Mi nn scheduled 205abf at. 2014-06-13 2014-06-13 Wants to [facility] [place] fc80 148e-5 [facility] 15:40:00 15:40:00 know where r Specialties d24-471 9-b l MRA is g88-m2hpmi Mi nn scheduled 19bba3 at. 2014-06-13 2014-06-13 Wants to [facility] [place] a002 04e7-6 [facility] 15:40:00 15:40:00 know where r Specialties fc3-468 1-b l MRA is 38f-058c15 Mi nn scheduled jd750q at. 2014-06-13 2014-06-13 Wants to [facility] [place] c6fa 67d1-7 [facility] 15:40:00 15:40:00 know where r Specialties d6n-159 2-b l MRA is i02-4xpaw4 Mi nn scheduled f450df at. 2014-06-13 2014-06-13 Wants to [facility] [place] 05b5 d4c3-8 [facility] 15:40:00 15:40:00 know where r Specialties c01-4d6 f-a l MRA is w76-mok1d6 Mi nn scheduled 71f1ee at. 2014-06-13 2014-06-13 Wants to [facility] [place] 3140 bcfe-c [facility] 15:40:00 15:40:00 know where r Specialties f07-49a 9-a l MRA is s0s-8hh81o Mi nn scheduled 07e2ba at. 2014-06-13 2014-06-13 Wants to [facility] [place] 61d8 654e-2 [facility] 15:40:00 15:40:00 know where r Specialties fd8-463 a-9 l MRA is b4r-1t03qq Mi nn scheduled f76a7f at. 2014-06-13 2014-06-13 Wants to [facility] [place] 3165 25f0-1 [facility] 15:40:00 15:40:00 know where r Specialties 07d-450 6-a l MRA is dbe-47d19b Mi nn scheduled 04903b at. 2014-06-13 2014-06-13 Wants to [facility] [place] b368 6082-4 [facility] 15:40:00 15:40:00 know where r Specialties 678-451 4-b l MRA is q08-b5r10f Mi nn scheduled 14q067 at. 2014-06-13 2014-06-13 Wants to [facility] [place] 5f35 5d0e-7 [facility] 15:40:00 15:40:00 know where r Specialties 1ff-403 c-8 l MRA is 7bb-6zw122 Mi nn scheduled k3l371 at. 2014-06-13 2014-06-13 Wants to [facility] [place] 2bf0 15de-7 [facility] 15:40:00 15:40:00 know where r Specialties 4w1-339 7-9 l MRA is 6ff-240272 Mi nn scheduled sj408e at. 2014-06-13 2014-06-13 Wants to [facility] [place] 3ce9 e119-6 [facility] 15:40:00 15:40:00 know where r Specialties t0v-4x8 8-9 l MRA is d37-li0195 Mi nn scheduled 9022ac at. 2014-06-13 2014-06-13 Wants to [facility] [place] 8872 10cc-e [facility] 15:40:00 15:40:00 know where r Specialties fb6-40e 6-b l MRA is ce4-u35652 Mi nn scheduled edq505 at. 2014-06-13 2014-06-13 Wants to [facility] [place] 4ceb ae0b-8 [facility] 15:40:00 15:40:00 know where r Specialties 538-4fa 4-a l MRA is 97e-l11228 Mi nn scheduled b89cf1 at. 2014-06-13 2014-06-13 Wants to [facility] [place] a2df af93-6 [facility] 15:40:00 15:40:00 know where r Specialties ec9-4fe 4-b l MRA is e3x-88x992 Mi nn scheduled 3n2909 at. 2014-06-13 2014-06-13 Wants to [facility] [place] 29d8 94ae-b [facility] 15:40:00 15:40:00 know where r Specialties 071-4e7 a-a l MRA is ceb-ff6fe2 Mi nn scheduled 137761 at. 2014-06-13 2014-06-13 Wants to [facility] [place] 12b7 8ec8-f [facility] 15:40:00 15:40:00 know where r Specialties 53e-445 7-a l MRA is s05-3vq53p Mi nn scheduled 9ee8c4 at. 2014-06-13 2014-06-13 Wants to [facility] [place] 6ae4 1134-0 [facility] 15:40:00 15:40:00 know where r Specialties 61b-4d9 7-b l MRA is 71d-3cabc1 Mi nn scheduled 35702p at. 2014-06-13 2014-06-13 Wants to [facility] [place] 8d11 69a8-6 [facility] 15:40:00 15:40:00 know where r Specialties 189-4b6 2-a l MRA is 90f-402ce8 Mi nn scheduled e616a4 at. 2014-06-13 2014-06-13 Wants to [facility] [place] 220b c17b-3 [facility] 15:40:00 15:40:00 know where r Specialties 218-475 1-8 l MRA is 302-edbc36 Mi nn scheduled b5fa0c at. 2014-06-13 2014-06-13 Wants to [facility] [place] 0ee7 d942-c [facility] 15:40:00 15:40:00 know where r Specialties f55-41b 3-b l MRA is 23a-76eb75 Mi nn scheduled xm0020 at. 2014-06-13 2014-06-13 Wants to [facility] [place] 87b9 9181-e [facility] 15:40:00 15:40:00 know where r Specialties f49-475 d-8 l MRA is ea3-a30c18 Mi nn scheduled 08732e at. 2014-06-13 2014-06-13 Wants to [facility] [place] 147a c82d-3 [facility] 15:40:00 15:40:00 know where r Specialties 3s3-81p 2-a l MRA is 3v0-hm36b0 Mi nn scheduled 2b451z at. 2014-06-13 2014-06-13 Wants to [facility] [place] a002 04e7-6 [facility] 15:40:00 15:40:00 know where r Specialties fc3-468 1-b l MRA is 38f-058c15 Mi nn scheduled ks093p at. 2014-06-13 2014-06-13 Wants to [facility] [place] c6fa 67d1-7 [facility] 15:40:00 15:40:00 know where r Specialties i5o-807 2-b l MRA is l70-5esth3 Mi nn scheduled f450df at. 2014-06-13 2014-06-13 Wants to [facility] [place] 05b5 d4c3-8 [facility] 15:40:00 15:40:00 know where r Specialties c01-4d6 f-a l MRA is w93-uer2l2 Mi nn scheduled 71f1ee at. 2014-06-13 2014-06-13 Wants to [facility] [place] 814f 3d08-e [facility] 15:40:00 15:40:00 know where r Specialties 918-4f6 9-b l MRA is 05a-2d970b Mi nn scheduled cfc96c at. 2014-06-13 2014-06-13 Wants to [facility] [place] a598 9c82-8 [facility] 15:40:00 15:40:00 know where r Specialties p1m-58p 8-a l MRA is k9f-0mqd74 Mi nn scheduled 00c34e at. 2014-06-13 2014-06-13 Wants to [facility] [place] 3140 bcfe-c [facility] 15:40:00 15:40:00 know where r Specialties f07-49a 9-a l MRA is k2v-1se81i Mi nn scheduled 07e2ba at. 2014-06-13 2014-06-13 Wants to [facility] [place] 17fd 7d18-a [facility] 15:40:00 15:40:00 know where r Specialties 3ba-485 5-9 l MRA is t84-2974w0 Mi nn scheduled 205abf at. 2014-06-13 2014-06-13 Wants to [facility] [place] fc80 148e-5 [facility] 15:40:00 15:40:00 know where r Specialties d24-471 9-b l MRA is b21-z7iqcz Mi nn scheduled 19bba3 at. 2014-06-13 2014-06-13 Wants to [facility] [place] 61d8 654e-2 [facility] 15:40:00 15:40:00 know where r Specialties fd8-463 a-9 l MRA is s8d-1h07cc Mi nn scheduled f76a7f at. 2014-06-05 2014-06-05 Unknown [facility] [place] 06bb3 f18-e [facility] 16:32:00 16:32:00 r Specialties a5k-3589-6 l 2ea-ff5e9d Mi nn 88c0e8 2014-06-05 2014-06-05 Unknown [facility] [place] ce3ff 0f0-2 [facility] 16:32:00 16:32:00 r Specialties f8a-3994-a l 67b-c05f1e Mi nn 4c97ed 2014-06-05 2014-06-05 Unknown [facility] [place] d2582 3c4-9 [facility] 16:32:00 16:32:00 r Specialties 3ed-4fa0-a l 77f-94t543 Mi nn 1502c7 2014-06-05 2014-06-05 Unknown [facility] [place] 74e30 f01-8 [facility] 16:32:00 16:32:00 r Specialties ae8-4319-8 l 7ce-d2d85f Mi nn 1ee5af 2014-06-05 2014-06-05 Unknown [facility] [place] 00b2b 694-3 [facility] 16:32:00 16:32:00 r Specialties eb7-4eb0-8 l 294-9b8d95 Mi nn bf8e13 2014-06-05 2014-06-05 Unknown [facility] [place] 54797 c31-8 [facility] 16:32:00 16:32:00 r Specialties 03f-4ad6-a l bf9-16277x Mi nn e74adc 2014-06-05 2014-06-05 Unknown [facility] [place] 990d3 98c-9 [facility] 16:32:00 16:32:00 r Specialties 8i3-3m93-0 l h0z-895j00 Mi nn d94d40 2014-06-05 2014-06-05 Unknown [facility] [place] cd09b 1f1-9 [facility] 16:32:00 16:32:00 r Specialties 64e-4c73-a l 656-mr6134 Mi nn d1cd76 2014-06-05 2014-06-05 Unknown [facility] [place] 4ef8f 45a-d [facility] 16:32:00 16:32:00 r Specialties 1u7-2771-4 l 08c-6677c9 Mi nn 862dec 2014-06-05 2014-06-05 Unknown [facility] [place] [address] eff-6 [facility] 16:32:00 16:32:00 r Specialties z88-09ui-f l 427-759ce0 Mi nn [id number] 2014-06-05 2014-06-05 Unknown nullFlavo [place] a8632 564-4 [facility] 16:32:00 16:32:00 r Specialties 6o4-1d36-k l 0ef-8fbb85 Mi nn q1g052 2014-06-05 2014-06-05 Unknown nullFlavo [place] 0f5d3 345-d [facility] 16:32:00 16:32:00 r Specialties ebf-4b67-b l aea-d1e8ee Mi nn [id number] 2014-06-05 2014-06-05 Unknown nullFlavo [place] a8ef4 67d-5 [facility] 16:32:00 16:32:00 r Specialties 15b-4e3b-9 l 61c-23af16 Mi nn 89fa6e 2014-06-05 2014-06-05 Unknown nullFlavo [place] 57a10 6d2-0 [facility] 16:32:00 16:32:00 r Specialties 071-4dbc-8 l b44-h82u4b Mi nn 78d1a7 2014-06-05 2014-06-05 Unknown nullFlavo [place] 34f4e 852-c [facility] 16:32:00 16:32:00 r Specialties 1k7-2i04-s l w25-44x6s1 Mi nn f750a9 2014-06-05 2014-06-05 Unknown nullFlavo [place] fb741 4ab-2 [facility] 16:32:00 16:32:00 r Specialties 06d-44aa-a l 66e-65f7eb Mi nn b64fd9 2014-06-05 2014-06-05 Unknown nullFlavo [place] [address] 2cb-4 [facility] 16:32:00 16:32:00 r Specialties g34-9304-4 l k38-a00261 Mi nn s3m375 2014-06-05 2014-06-05 Unknown nullFlavo [place] f1a5f 65c-1 [facility] 16:32:00 16:32:00 r Specialties s8h-269r-w l 83f-t0229d Mi nn [id number] 0469-04-14 2014-06-05 Unknown nullFlavo [place] d8682 a05-e [facility] 16:32:00 16:32:00 r Specialties 5n4-07p2-8 l 333-7bbd17 Mi nn o8465e 2014-06-05 2014-06-05 Unknown nullFlavo [place] 4d658 bd7-4 [facility] 16:32:00 16:32:00 r Specialties 8dc-42e4-a l daa-09e696 Mi nn [id number] 1253-04-14 2014-06-05 Unknown nullFlavo [place] 1c2fe f9d-5 [facility] 16:32:00 16:32:00 r Specialties e33-55c3-6 l 04e-f1febe Mi nn 94c1fa 2014-06-05 2014-06-05 Unknown nullFlavo [place] 10e92 17b-4 [facility] 16:32:00 16:32:00 r Specialties p32-37e0-a l 7ca-ab31a5 Mi nn 1ik239 2014-06-05 2014-06-05 Unknown nullFlavo [place] 0a66a 4d5-b [facility] 16:32:00 16:32:00 r Specialties 57d-4ecb-9 l a13-u5479b Mi nn 5dacae 2014-06-05 2014-06-05 Unknown nullFlavo [place] d2582 3c4-9 [facility] 16:32:00 16:32:00 r Specialties 3ed-4fa0-a l 77f-50v113 Mi nn 1502c7 2014-06-05 2014-06-05 Unknown nullFlavo [place] 06bb3 f18-e [facility] 16:32:00 16:32:00 r Specialties v3s-7715-3 l 2ea-ff5e9d Mi nn 88c0e8 2014-06-05 2014-06-05 Unknown nullFlavo [place] cd09b 1f1-9 [facility] 16:32:00 16:32:00 r Specialties 64e-4c73-a l 656-ye6457 Mi nn d1cd76 2014-06-05 2014-06-05 Unknown nullFlavo [place] 990d3 98c-9 [facility] 16:32:00 16:32:00 r Specialties 4g5-1d36-6 l m3a-696y08 Mi nn d94d40 2014-06-05 2014-06-05 Unknown nullFlavo [place] ce3ff 0f0-2 [facility] 16:32:00 16:32:00 r Specialties a1m-6698-h l 67b-c05f1e Mi nn 4c97ed 2014-06-05 2014-06-05 Unknown nullFlavo [place] 4ef8f 45a-d [facility] 16:32:00 16:32:00 r Specialties 7r6-5502-2 l 08c-6677c9 Mi nn 862dec 2014-06-05 2014-06-05 Unknown nullFlavo [place] 00b2b 694-3 [facility] 16:32:00 16:32:00 r Specialties eb7-4eb0-8 l 294-9b8d95 Mi nn bf8e13 2014-06-05 2014-06-05 Unknown nullFlavo [place] 74e30 f01-8 [facility] 16:32:00 16:32:00 r Specialties ae8-4319-8 l 7ce-d2d85f Mi nn 1ee5af 2014-06-05 2014-06-05 Unknown nullFlavo [place] [address] c31-8 [facility] 16:32:00 16:32:00 r Specialties 03f-4ad6-a l bf9-19243a Mi nn e74adc 2014-06-05 2014-06-05 Unknown nullFlavo [place] [address] eff-6 [facility] 16:32:00 16:32:00 r Specialties i63-35zc-n l 427-759ce0 Mi nn 2s8665 2014-06-05 2014-06-05 Unknown nullFlavo [place] fb741 4ab-2 [facility] 16:32:00 16:32:00 r Specialties 06d-44aa-a l 66e-65f7eb Mi nn b64fd9 2014-06-05 2014-06-05 Unknown nullFlavo [place] a8ef4 67d-5 [facility] 16:32:00 16:32:00 r Specialties 15b-4e3b-9 l 61c-23af16 Mi nn 89fa6e 2014-06-05 2014-06-05 Unknown nullFlavo [place] f1a5f 65c-1 [facility] 16:32:00 16:32:00 r Specialties t8n-525j-j l 83f-j7084t Mi nn [id number] 3022-04-14 2014-06-05 Unknown nullFlavo [place] 57a10 6d2-0 [facility] 16:32:00 16:32:00 r Specialties 071-4dbc-8 l f43-v46r7p Mi nn 78d1a7 2014-06-05 2014-06-05 Unknown nullFlavo [place] 0f5d3 345-d [facility] 16:32:00 16:32:00 r Specialties ebf-4b67-b l aea-d1e8ee Mi nn s2r288 2014-06-05 2014-06-05 Unknown nullFlavo [place] 34f4e 852-c [facility] 16:32:00 16:32:00 r Specialties 0i9-8g79-i l t81-57q8a6 Mi nn f750a9 2014-06-05 2014-06-05 Unknown nullFlavo [place] 1c2fe f9d-5 [facility] 16:32:00 16:32:00 r Specialties k07-92t8-5 l 04e-f1febe Mi nn 94c1fa 2014-06-05 2014-06-05 [place]Fl[place] d8682 a05-e [facility] 16:32:00 16:32:00 r Specialties 6d2-72w0-0 l 333-7bbd17 Mi nn y9187o 2014-06-05 2014-06-05 Unknown nullFlavo [place] 26050 2cb-4 [facility] 16:32:00 16:32:00 r Specialties u28-7307-1 l a54-a31716 Mi nn e6m721 2014-06-05 2014-06-05 Unknown nullFlavo [place] a8632 564-4 [facility] 16:32:00 16:32:00 r Specialties 1q7-5h56-l l 0ef-8fbb85 Mi nn l5d127 2014-06-05 2014-06-05 Unknown nullFlavo [place] 4d658 bd7-4 [facility] 16:32:00 16:32:00 r Specialties 8dc-42e4-a l daa-30s603 Mi nn [id number] 1919-04-14 2014-06-05 Unknown nullFlavo [place] 0a66a 4d5-b [facility] 16:32:00 16:32:00 r Specialties 57d-4ecb-9 l t53-x5820u Mi nn 5dacae 2014-06-05 2014-06-05 Unknown nullFlavo [place] 10e92 17b-4 [facility] 16:32:00 16:32:00 r Specialties c65-41a8-c l 7ca-ab31a5 Mi nn 6tp607 2014-06-05 2014-06-05 Unknown nullFlavo [place] 30faf 71c-a [facility] 15:32:00 15:32:00 r Specialties w60-71uj-7 l w9t-185ou4 Mi nn 3e05ac 2014-06-05 2014-06-05 Unknown nullFlavo [place] 02f4a bb1-4 [facility] 15:32:00 15:32:00 r Specialties 55d-4a2c-9 l 7m8-bd4757 Mi nn 7c341h 2014-06-05 2014-06-05 Unknown nullFlavo [place] f30d2 72a-4 [facility] 15:32:00 15:32:00 r Specialties 48e-4bda-b l 461-fs0493 Mi nn 6a5140 2014-06-05 2014-06-05 Unknown nullFlavo [place] 4ad65 fe9-7 [facility] 15:32:00 15:32:00 r Specialties 5e2-5i73-e l 77f-f3f5d1 Mi nn 652355 4112-04-14 2014-06-05 Unknown nullFlavo [place] 39de8 a78-c [facility] 15:32:00 15:32:00 r Specialties 8t8-12h5-4 l 341-62c75a Mi nn 94ab26 2014-06-05 2014-06-05 Unknown nullFlavo [place] 767ab 340-f [facility] 15:32:00 15:32:00 r Specialties 236-4066-a l 9x6-4713p2 Mi nn 8d7f29 2014-06-05 2014-06-05 Unknown nullFlavo [place] d5a4b 8a9-8 [facility] 15:32:00 15:32:00 r Specialties 794-459f-a l o43-333r28 Mi nn e09ee7 2014-06-05 2014-06-05 Unknown nullFl[facility] [place] e23d4 98b-2 [facility] 15:32:00 15:32:00 r Specialties 9y1-642g-4 l 7h6-58ab78 Mi nn th625o 2014-06-05 2014-06-05 Unknown nullFlavo [place] 0302e 310-a [facility] 15:32:00 15:32:00 r Specialties n7c-0388-a l 596-6934b5 Mi nn du6350 2014-06-05 2014-06-05 Unknown nullFlavo [place] 8990f e60-3 [facility] 15:32:00 15:32:00 r Specialties 582-47ef-b l 3fc-63dde4 Mi nn 378e7b 2014-06-05 2014-06-05 Unknown nullFl[place] 58809 285-2 [facility] 15:32:00 15:32:00 r Specialties p01-490p-0 l 8u7-y94r54 Mi nn 0fe6db 2014-06-05 2014-06-05 Unknown nullFlavo [place] 90af9 5e5-0 [facility] 15:32:00 15:32:00 r Specialties 4f2-9931-e l 249-56d61f Mi nn 6yc410 2014-06-05 2014-06-05 Unknown nullFlavo [place] a4100 4c9-3 [facility] 15:32:00 15:32:00 r Specialties j17-5c51-f l 5j2-856062 Mi nn 19f4ff 2014-06-05 2014-06-05 Unknown nullFlavo [place] 73c9e 62e-3 [facility] 15:32:00 15:32:00 r Specialties 8be-4249-b l 661-2m7168 Mi nn cbcc1c 2014-06-05 2014-06-05 Unknown nullFlavo [place] fe469 566-0 [facility] 15:32:00 15:32:00 r Specialties 354-47e4-b l 5l1-3xbn4n Mi nn 8r8439 2014-06-05 2014-06-05 Unknown nullFlavo [place] 2cd24 cc3-b [facility] 15:32:00 15:32:00 r Specialties f3u-794b-t l 301-0b8f25 Mi nn ou6988 2014-06-05 2014-06-05 Unknown nullFlavo [place] ddb27 73a-c [facility] 15:32:00 15:32:00 r Specialties y2k-1686-8 l 0z2-6545uk Mi nn 0u7145 2014-06-05 2014-06-05 Unknown nullFl[facility] [place] 5d051 5a6-5 [facility] 15:32:00 15:32:00 r Specialties fa0-4b59-9 l 7k4-110245 Mi nn 6be53c 2014-06-05 2014-06-05 Unknown nullFl[place] 48267 237-5 [facility] 15:32:00 15:32:00 r Specialties 5c4-2708-4 l 6f4-36d4y6 Mi nn sva595 2014-06-05 2014-06-05 Unknown nullFl[facility] [place] b0398 de0-4 [facility] 15:32:00 15:32:00 r Specialties y32-5pw9-8 l 57a-32406e Mi nn r1998u 2014-06-05 2014-06-05 Unknown nullFlavo [place] 2a184 4c9-7 [facility] 15:32:00 15:32:00 r Specialties o4v-1637-8 l 139-68f57b Mi nn 01b13a 2014-06-05 2014-06-05 Unknown nullFl[place] 02238 d5d-d [facility] 15:32:00 15:32:00 r Specialties abf-43fe-8 l katiuska-16ca59 Mi nn 397ff0 2014-06-05 2014-06-05 Unknown nullFl[place] 26804 cd4-e [facility] 15:32:00 15:32:00 r Specialties de7-404d-9 l 9m1-768m2o Mi nn dac46c 2014-06-05 2014-06-05 Unknown nullFl[facility] [place] 58971 a3f-1 [facility] 15:32:00 15:32:00 r Specialties de0-48b0-8 l 3q8-gkw340 Mi nn 6cd38f 2014-06-05 2014-06-05 Unknown nullFlavo [place] 5e087 4dc-3 [facility] 15:32:00 15:32:00 r Specialties 54d-4186-8 l u69-5ko16y Mi nn cc0a86 2014-06-05 2014-06-05 Unknown nullFlavo [place] f30d2 72a-4 [facility] 15:32:00 15:32:00 r Specialties 48e-4bda-b l 461-qt2058 Mi nn 9s8102 2014-06-05 2014-06-05 Unknown nullFlavo [place] 30faf 71c-a [facility] 15:32:00 15:32:00 r Specialties a73-90jr-8 l p5j-851iz4 Mi nn 3e05ac 2014-06-05 2014-06-05 Unknown nullFlavo [place] 4ad65 fe9-7 [facility] 15:32:00 15:32:00 r Specialties 9d0-2o95-m l 77f-f3f5d1 Mi nn 420321 5880-04-14 2014-06-05 Unknown nullFlavo [place] 02f4a bb1-4 [facility] 15:32:00 15:32:00 r Specialties 55d-4a2c-9 l 4b7-vj4320 Mi nn 6s511k 2014-06-05 2014-06-05 Unknown nullFlavo [place] 39de8 a78-c [facility] 15:32:00 15:32:00 r Specialties 5l2-65n7-7 l 341-62c75a Mi nn 94ab26 2014-06-05 2014-06-05 Unknown nullFlavo [place] d5a4b 8a9-8 [facility] 15:32:00 15:32:00 r Specialties 794-459f-a l l55-322b82 Mi nn e09ee7 2014-06-05 2014-06-05 Unknown nullFlavo [place] 0302e 310-a [facility] 15:32:00 15:32:00 r Specialties d2t-6893-p l 596-6934b5 Mi nn wr6575 2014-06-05 2014-06-05 Unknown nullFlavo [place] e23d4 98b-2 [facility] 15:32:00 15:32:00 r Specialties 8v7-042t-5 l 2p4-12tp77 Mi nn ng094n 2014-06-05 2014-06-05 Unknown nullFlavo [place] 767ab 340-f [facility] 15:32:00 15:32:00 r Specialties 236-4066-a l 0n6-5285z9 Mi nn 8d7f29 2014-06-05 2014-06-05 Unknown nullFlavo [place] 90af9 5e5-0 [facility] 15:32:00 15:32:00 r Specialties 7y5-0877-o l 249-56d61f Mi nn 8zg031 2014-06-05 2014-06-05 Unknown nullFlavo [place] 2cd24 cc3-b [facility] 15:32:00 15:32:00 r Specialties r6o-560d-r l 301-0b8f25 Mi nn uk3756 2014-06-05 2014-06-05 Unknown nullFlavo [place] fe469 566-0 [facility] 15:32:00 15:32:00 r Specialties 354-47e4-b l 4b9-0tce9z Mi nn 0m7583 2014-06-05 2014-06-05 Unknown nullFlavo [place] 8990f e60-3 [facility] 15:32:00 15:32:00 r Specialties 582-47ef-b l 3fc-63dde4 Mi nn 378e7b 2014-06-05 2014-06-05 Unknown nullFl[facility] [place] 95925 285-2 [facility] 15:32:00 15:32:00 r Specialties q06-137a-4 l 7k3-j70m57 Mi nn 0fe6db 2014-06-05 2014-06-05 Unknown nullFlavo [place] ddb27 73a-c [facility] 15:32:00 15:32:00 r Specialties l0y-4152-0 l 2i4-1328qo Mi nn 0u8862 2014-06-05 2014-06-05 Unknown nullFlavo [place] 73c9e 62e-3 [facility] 15:32:00 15:32:00 r Specialties 8be-4249-b l 661-0v7071 Mi nn cbcc1c 2014-06-05 2014-06-05 Unknown nullFlavo [place] 2a184 4c9-7 [facility] 15:32:00 15:32:00 r Specialties k8z-4661-3 l 139-68f57b Mi nn 01b13a 2014-06-05 2014-06-05 Unknown nullFl[place] 93512 d5d-d [facility] 15:32:00 15:32:00 r Specialties abf-43fe-8 l katiuska-16ca59 Mi nn 397ff0 2014-06-05 2014-06-05 Unknown nullFl[place] [address]26 cd4-e [facility] 15:32:00 15:32:00 r Specialties de7-404d-9 l 5x1-470t3a Mi nn dac46c 2014-06-05 2014-06-05 Unknown nullFlavo [place] 5d051 5a6-5 [facility] 15:32:00 15:32:00 r Specialties fa0-4b59-9 l 1i3-410002 Mi nn 6be53c 2014-06-05 2014-06-05 Unknown nullFlavo [place] a4100 4c9-3 [facility] 15:32:00 15:32:00 r Specialties m81-3z08-s l 4p1-174947 Mi nn 19f4ff 2014-06-05 2014-06-05 Unknown nullFl[facility] [place] 74487 a3f-1 [facility] 15:32:00 15:32:00 r Specialties de0-48b0-8 l 8c2-bqp320 Mi nn 6cd38f 2014-06-05 2014-06-05 Unknown nullFl[facility] [place] 07735 237-5 [facility] 15:32:00 15:32:00 r Specialties 1k1-4814-0 l 2k8-09o2u6 Mi nn qus398 2014-06-05 2014-06-05 Unknown nullFlavo [place] b0398 de0-4 [facility] 15:32:00 15:32:00 r Specialties t41-8ns9-9 l 57a-83372f Mi nn u3344u 2014-06-05 2014-06-05 Unknown nullFlavo [place] 5e087 4dc-3 [facility] 15:32:00 15:32:00 r Specialties 54d-4186-8 l f10-4vk47m Mi nn cc0a86 2014-05-29 2014-05-29 lab nullFlavo [place] 04cd5 a95-b [facility] 20:12:00 20:12:00 invoice r Specialties 7r6-5s14-r l bill to acc-a6f4f9 Her hugo be done 6l0206 06/04 2014-05-29 2014-05-29 lab nullFl[facility] [place] a7e1b e6d-5 [facility] 20:12:00 20:12:00 invoice r Specialties 4u6-15q0-4 l bill to 3i2-34476d Her hugo be done b9cc00 06/04 2014-05-29 2014-05-29 lab nullFlavo [place] 956ee eb5-6 [facility] 20:12:00 20:12:00 invoice r Specialties 313-481a-a l bill to 99c-ae1e31 Her hugo be done abfa94 06/04 2014-05-29 2014-05-29 lab nullFlavo [place] a2dc9 354-6 [facility] 20:12:00 20:12:00 invoice r Specialties w70-4972-c l bill to 75f-1d0d97 Her hugo be done e7b6ad 06/04 2014-05-29 2014-05-29 lab nullFl[facility] [place] 95c3e 905-f [facility] 20:12:00 20:12:00 invoice r Specialties 50c-4fb3-8 l bill to 75c-a9568u Her hugo be done [id number] 06/04 2014-05-29 2014-05-29 lab nullFlavo [place] 37fbc 0cb-6 [facility] 20:12:00 20:12:00 invoice r Specialties 6ff-415e-b l bill to 535-387d78 Her hugo be done 9rq490 06/04 2014-05-29 2014-05-29 lab nullFlavo [place] ed186 d36-3 [facility] 20:12:00 20:12:00 invoice r Specialties 8v1-48cq-n l bill to 058-41p419 Her hugo be done 5g6797 06/04 2014-05-29 2014-05-29 lab nullFlavo [place] c4b33 a36-0 [facility] 20:12:00 20:12:00 invoice r Specialties q76-782r-t l bill to 538-21fb7e Her hugo be done 3886d6 06/04 2014-05-29 2014-05-29 lab nullFlavo [place] 5a98b a48-f [facility] 20:12:00 20:12:00 invoice r Specialties 983-47f3-8 l bill to 3r2-7k896k Her hugo be done 03l557 06/04 2014-05-29 2014-05-29 lab nullFlavo [place] 005ae 9da-2 [facility] 20:12:00 20:12:00 invoice r Specialties 742-48ea-9 l bill to 642-gkq753 Her hugo be done g6021o 06/04 2014-05-29 2014-05-29 lab nullFl[facility] [place] 97826 65a-7 [facility] 20:12:00 20:12:00 invoice r Specialties 953-4ce9-8 l bill to 36a-1205f0 Her hugo be done cdd87d 06/04 2014-05-29 2014-05-29 lab nullFlavo [place] ccbfd f05-4 [facility] 20:12:00 20:12:00 invoice r Specialties 320-421b-b l bill to 35b-ff44f4 Her hugo be done 7170db 06/04 2014-05-29 2014-05-29 lab nullFlavo [place] ef7b7 1bf-0 [facility] 20:12:00 20:12:00 invoice r Specialties 2ba-4dd3-b l bill to b1w-oy9979 Her hugo be done 06efe4 06/04 2014-05-29 2014-05-29 lab [place]Fl[place] 65951 053-4 [facility] 20:12:00 20:12:00 invoice r Specialties 13b-4a76-b l bill to a15-0wc96a Her hugo be done adb86f 06/04 2014-05-29 2014-05-29 lab nullFlavo [place] 1f34d b7c-d [facility] 20:12:00 20:12:00 invoice r Specialties 55c-41af-8 l bill to a3o-9km021 Her hugo be done e6f3e0 06/04 2014-05-29 2014-05-29 lab nullFlavo [place] c20a0 136-a [facility] 20:12:00 20:12:00 invoice r Specialties 441-4058-b l bill to x0v-5736u4 Her hugo be done 3c8143 06/04 2014-05-29 2014-05-29 lab nullFl[facility] [place] 13b67 497-2 [facility] 20:12:00 20:12:00 invoice r Specialties 679-4574-9 l bill to dad-a336cd Her hugo be done 0eddf3 06/04 2014-05-29 2014-05-29 lab nullFlavo [place] b8479 a28-f [facility] 20:12:00 20:12:00 invoice r Specialties 0a3-71bl-y l bill to 4fa-8a50a8 Her hugo be done [id number] 06/04 2014-05-29 2014-05-29 lab nullFlavo [place] ae0e9 e49-f [facility] 20:12:00 20:12:00 invoice r Specialties 0v8-31l3-h l bill to dff-89140b Her hugo be done 4709d3 06/04 2014-05-29 2014-05-29 lab nullFl[facility] [place] 8ec12 4c8-3 [facility] 20:12:00 20:12:00 invoice r Specialties 9z9-1le7-0 l bill to q3o-9085j7 Her hugo be done 07f39b 06/04 2014-05-29 2014-05-29 lab nullFlavo [place] 6d04c 29c-3 [facility] 20:12:00 20:12:00 invoice r Specialties 07d-46a8-b l bill to 6cf-e55c9d Her hugo be done 7bcfab 06/04 2014-05-29 2014-05-29 lab nullFl[facility] [place] 11c39 403-5 [facility] 20:12:00 20:12:00 invoice r Specialties cc0-4a7e-a l bill to 3i1-550096 Her hugo be done [id number] 13 2014-05-29 2014-05-29 lab nullFlavo [place] cd5ca a51-c [facility] 20:12:00 20:12:00 invoice r Specialties u03-23uw-k l bill to 332-ecc51e Her hugo be done 784e4e 13 2014-05-29 2014-05-29 lab nullFlavo [place] 956ee eb5-6 [facility] 20:12:00 20:12:00 invoice r Specialties 313-481a-a l bill to 99c-ae1e31 Her hugo be done abfa94 13 2014-05-29 2014-05-29 lab nullFlavo [place] 04cd5 a95-b [facility] 20:12:00 20:12:00 invoice r Specialties 0m6-0x03-u l bill to acc-a6f4f9 Her hugo be done [id number] 13 2014-05-29 2014-05-29 lab nullFlavo [place] c4b33 a36-0 [facility] 20:12:00 20:12:00 invoice r Specialties b34-140p-t l bill to 538-21fb7e Her hugo be done 3886d6 13 2014-05-29 2014-05-29 lab nullFlavo [place] ed186 d36-3 [facility] 20:12:00 20:12:00 invoice r Specialties 5j9-39kt-g l bill to 058-87t053 Her hugo be done 0i4105 13 2014-05-29 2014-05-29 lab nullFlavo [place] a7e1b e6d-5 [facility] 20:12:00 20:12:00 invoice r Specialties 7c5-03a8-4 l bill to 7h5-73343g Her hugo be done b9cc00 13 2014-05-29 2014-05-29 lab nullFlavo [place] 5a98b a48-f [facility] 20:12:00 20:12:00 invoice r Specialties 983-47f3-8 l bill to 3h9-0a165v Her hugo be done 25v329 13 2014-05-29 2014-05-29 lab nullFlavo [place] 95c3e 905-f [facility] 20:12:00 20:12:00 invoice r Specialties 50c-4fb3-8 l bill to 75c-l5359q Her hugo be done [id number] 06/04 2014-05-29 2014-05-29 lab nullFlavo [place] a2dc9 354-6 [facility] 20:12:00 20:12:00 invoice r Specialties r40-1771-x l bill to 75f-1d0d97 Her hugo be done e7b6ad 06/04 2014-05-29 2014-05-29 lab nullFlavo [place] 37fbc 0cb-6 [facility] 20:12:00 20:12:00 invoice r Specialties 6ff-415e-b l bill to 535-387d78 Her hugo be done 4lm199 06/04 2014-05-29 2014-05-29 lab nullFlavo [place] 005ae 9da-2 [facility] 20:12:00 20:12:00 invoice r Specialties 742-48ea-9 l bill to 642-bpf182 Her hugo be done n3737l 06/04 2014-05-29 2014-05-29 lab nullFlavo [place] c20a0 136-a [facility] 20:12:00 20:12:00 invoice r Specialties 441-4058-b l bill to y1k-3475y0 Her hugo be done 4d1168 06/04 2014-05-29 2014-05-29 lab nullFlavo [place] ef7b7 1bf-0 [facility] 20:12:00 20:12:00 invoice r Specialties 2ba-4dd3-b l bill to g8l-lv2318 Her hugo be done 06efe4 06/04 2014-05-29 2014-05-29 lab nullFlavo [place] b8479 a28-f [facility] 20:12:00 20:12:00 invoice r Specialties 0f0-64nc-u l bill to 4fa-8a50a8 Her hugo be done [id number] 06/04 2014-05-29 2014-05-29 lab nullFl[facility] [place] 74308 053-4 [facility] 20:12:00 20:12:00 invoice r Specialties 13b-4a76-b l bill to f80-0kx67d Her hugo be done adb86f 06/04 2014-05-29 2014-05-29 lab nullFlavo [place] ccbfd f05-4 [facility] 20:12:00 20:12:00 invoice r Specialties 320-421b-b l bill to 35b-ff44f4 Her hugo be done 7170db 06/04 2014-05-29 2014-05-29 lab nullFlavo [place] 1f34d b7c-d [facility] 20:12:00 20:12:00 invoice r Specialties 55c-41af-8 l bill to i5w-0ws016 Her hugo be done e6f3e0 06/04 2014-05-29 2014-05-29 lab nullFlavo [place] 6d04c 29c-3 [facility] 20:12:00 20:12:00 invoice r Specialties 07d-46a8-b l bill to 6cf-e55c9d Her hugo be done 7bcfab 06/04 2014-05-29 2014-05-29 lab nullFlavo [place] ae0e9 e49-f [facility] 20:12:00 20:12:00 invoice r Specialties 2i1-33k0-u l bill to [id number]-99194r Her hugo be done 4709d3 06/04 2014-05-29 2014-05-29 lab nullFl[facility] [place] 13b67 497-2 [facility] 20:12:00 20:12:00 invoice r Specialties 679-4574-9 l bill to dad-a336cd Her hugo be done 0eddf3 06/04 2014-05-29 2014-05-29 lab [place]Fl[facility] [place] 58355 65a-7 [facility] 20:12:00 20:12:00 invoice r Specialties 953-4ce9-8 l bill to 36a-1205f0 Her hugo be done cdd87d 06/04 2014-05-29 2014-05-29 lab nullFlavo [place] 8ec12 4c8-3 [facility] 20:12:00 20:12:00 invoice r Specialties 6p6-6wr4-6 l bill to s0d-9642k3 Her hugo be done 07f39b 06/04 2014-05-29 2014-05-29 lab nullFlavo [place] cd5ca a51-c [facility] 20:12:00 20:12:00 invoice r Specialties c09-75oc-t l bill to 332-ecc51e Her hugo be done 784e4e 06/04 2014-05-29 2014-05-29 lab nullFlavo [place] 11c39 403-5 [facility] 20:12:00 20:12:00 invoice r Specialties cc0-4a7e-a l bill to 0j7-067532 Her hugo be done [id number] 06/04 2014-05-29 2014-05-29 lab nullFlavo [place] cf7a3 c7b-c [facility] 19:12:00 19:12:00 invoice r Specialties 96a-4642-9 l bill to bb2-0cff61 Her hugo be done d9094f 06/04 2014-05-29 2014-05-29 lab nullFl[facility] [place] 3b666 d27-2 [facility] 19:12:00 19:12:00 invoice r Specialties 3j3-1bx5-0 l bill to m5v-035sio Her hugo be done b79a9f 06/04 2014-05-29 2014-05-29 lab nullFlavo [place] d3c85 ad8-0 [facility] 19:12:00 19:12:00 invoice r Specialties 747-4ea5-a l bill to [id number] Her hugo be done 9b1ab9 06/04 2014-05-29 2014-05-29 lab nullFlavo [place] 70f64 bb7-0 [facility] 19:12:00 19:12:00 invoice r Specialties ca8-4199-a l bill to 561-d0f2c3 Her hugo be done bffde3 06/04 2014-05-29 2014-05-29 lab nullFlavo [place] f6edc 8e7-f [facility] 19:12:00 19:12:00 invoice r Specialties ec1-49c6-a l bill to 591-e6afa1 Her hugo be done 794ead 06/04 2014-05-29 2014-05-29 lab nullFlavo [place] 0a5d2 4fa-c [facility] 19:12:00 19:12:00 invoice r Specialties 84e-4c00-a l bill to s14-508i6m Her hugo be done 9yc240 06/04 2014-05-29 2014-05-29 lab nullFl[facility] [place] e4993 3ae-8 [facility] 19:12:00 19:12:00 invoice r Specialties 5k3-7m44-8 l bill to 1c3-6npmho Her hugo be done 1vj757 06/04 2014-05-29 2014-05-29 lab nullFl[facility] [place] fbf67 6cd-e [facility] 19:12:00 19:12:00 invoice r Specialties 8u8-0y59-l l bill to [id number]-xv4280 Her hugo be done 5f05bb 06/04 2014-05-29 2014-05-29 lab nullFlavo [place] dbb0f 2c2-b [facility] 19:12:00 19:12:00 invoice r Specialties 420-41ab-8 l bill to 531-5920da Her hugo be done [id number] 06/04 2014-05-29 2014-05-29 lab nullFl[facility] [place] 1478f 4d1-4 [facility] 19:12:00 19:12:00 invoice r Specialties bde-4516-9 l bill to 199-93bb17 Her hugo be done [id number] 06/04 2014-05-29 2014-05-29 lab nullFlavo [place] 7111f c27-6 [facility] 19:12:00 19:12:00 invoice r Specialties 53b-41c6-9 l bill to 810-1108dd Her hugo be done 7e5b72 06/04 2014-05-29 2014-05-29 lab nullFl[facility] [place] 7e5eb f5c-0 [facility] 19:12:00 19:12:00 invoice r Specialties 92c-40bd-b l bill to 322-p2j122 Her hugo be done [id number] 06/04 2014-05-29 2014-05-29 lab nullFlavo [place] f7ae9 8df-8 [facility] 19:12:00 19:12:00 invoice r Specialties 897-45e7-b l bill to [id number] Her hugo be done 49ee1f 06/04 2014-05-29 2014-05-29 lab nullFl[facility] [place] a76ad b45-7 [facility] 19:12:00 19:12:00 invoice r Specialties 453-497b-b l bill to z77-hup076 Her hugo be done e3b3c2 06/04 2014-05-29 2014-05-29 lab nullFl[facility] [place] cbbbc 7b0-b [facility] 19:12:00 19:12:00 invoice r Specialties b32-8125-c l bill to 0x2-87s1yw Her hugo be done a25fde 06/04 2014-05-29 2014-05-29 lab nullFl[facility] [place] 20fdb 039-1 [facility] 19:12:00 19:12:00 invoice r Specialties 8t2-0q4h-5 l bill to 4ca-0c45c1 Her hugo be done 9110f5 06/04 2014-05-29 2014-05-29 lab nullFlavo [place] 92f80 909-9 [facility] 19:12:00 19:12:00 invoice r Specialties o40-898k-c l bill to 47e-25059l Her hugo be done 0dfecb 06/04 2014-05-29 2014-05-29 lab nullFl[facility] [place] 14e93 989-2 [facility] 19:12:00 19:12:00 invoice r Specialties 633-480e-8 l bill to 771-2941c9 Her hugo be done 0c321t 06/04 2014-05-29 2014-05-29 lab nullFl[facility] [place] 14de4 375-9 [facility] 19:12:00 19:12:00 invoice r Specialties t4c-9a84-k l bill to 21f-2beb75 Her hugo be done fa28b6 06/04 2014-05-29 2014-05-29 lab nullFl[facility] [place] e3597 048-3 [facility] 19:12:00 19:12:00 invoice r Specialties 548-4361-8 l bill to 354-8622c1 Her hugo be done 922d67 06/04 2014-05-29 2014-05-29 lab nullFl[facility] [place] cd75c c76-e [facility] 19:12:00 19:12:00 invoice r Specialties 46d-4f78-8 l bill to ff6-4637a4 Her hugo be done 5b12ea 06/04 2014-05-29 2014-05-29 lab nullFlavo [place] 2235a 6cb-b [facility] 19:12:00 19:12:00 invoice r Specialties w51-0e2r-j l bill to 4p2-p6p3jh Her hugo be done e14ab6 06/04 2014-05-29 2014-05-29 lab nullFl[place] [id number] c1a-6 [facility] 19:12:00 19:12:00 invoice r Specialties [id number]-[id number] l bill to [id number] Her hugo be done [id number] 06/04 2014-05-29 2014-05-29 lab nullFl[place] [id number] 766-0 [facility] 19:12:00 19:12:00 invoice r Specialties [id number]-42cb-b l bill to [id number] Her hugo be done [id number] 06/04 2014-05-29 2014-05-29 lab nullFl[place] [id number] 43c-4 [facility] 19:12:00 19:12:00 invoice r Specialties [id number]-4218-a l bill to [id number] Her hugo be done [id number] 06/04 2014-05-29 2014-05-29 lab [place] [id number] ad8-0 [facility] 19:12:00 19:12:00 invoice r Specialties [id number]-a l bill to [id number] Her hugo be done [id number] 06/04 2014-05-29 2014-05-29 lab nullFl[place] [id number] c7b-c [facility] 19:12:00 19:12:00 invoice r Specialties [id number]-4642-9 l bill to [id number] Her hugo be done [id number] 06/04 2014-05-29 2014-05-29 lab nullFl[facility] [place] [id number] bb7-0 [facility] 19:12:00 19:12:00 invoice r Specialties [id number] l bill to [id number] Her hugo be done [id number] 06/04 2014-05-29 2014-05-29 lab nullFl[facility] [place] [id number] d27-2 [facility] 19:12:00 19:12:00 invoice r Specialties [id number] l bill to [id number] Her hugo be done [id number] 06/04 2014-05-29 2014-05-29 lab [place] f6edc 8e7-f [facility] 19:12:00 19:12:00 invoice r Specialties [id number]-a l bill to [id number] Her hugo be done [id number] 06/04 2014-05-29 2014-05-29 lab [place] [place] [id number] 3ae-8 [facility] 19:12:00 19:12:00 invoice r Specialties [id number] l bill to [id number] Her hugo be done [id number] 06/04 2014-05-29 2014-05-29 lab nullFl[facility] [place] [id number] 2c2-b [facility] 19:12:00 19:12:00 invoice r Specialties 420-41ab-8 l bill to [id number] Her hugo be done [id number] 06/04 2014-05-29 2014-05-29 lab nullFl[facility] [place] [id number] 6cd-e [facility] 19:12:00 19:12:00 invoice r Specialties [id number]-p l bill to [id number] Her hugo be done [id number] 06/04 2014-05-29 2014-05-29 lab nullFl[facility] [place] [id number] 4fa-c [facility] 19:12:00 19:12:00 invoice r Specialties 84e-4c00-a l bill to [id number] Her hugo be done [id number] 06/04 2014-05-29 2014-05-29 lab [facility]Fl[facility] [place] [id number] f5c-0 [facility] 19:12:00 19:12:00 invoice r Specialties 92c-40bd-b l bill to [id number] Her hugo be done [id number] 06/04 2014-05-29 2014-05-29 lab nullFl[facility] [place] 20fdb 039-1 [facility] 19:12:00 19:12:00 invoice r Specialties [id number]-7 l bill to [id number] Her hugo be done [id number] 06/04 2014-05-29 2014-05-29 lab nullFl[facility] [place] cbbbc 7b0-b [facility] 19:12:00 19:12:00 invoice r Specialties [id number] l bill to [id number] Her hugo be done [id number] 06/04 2014-05-29 2014-05-29 lab nullFl[facility] [place] 1478f 4d1-4 [facility] 19:12:00 19:12:00 invoice r Specialties [id number] l bill to [id number] Her hugo be done [id number] 06/04 2014-05-29 2014-05-29 lab nullFl[facility] [place] [id number] c27-6 [facility] 19:12:00 19:12:00 invoice r Specialties 53b-41c6-9 l bill to [id number] Her hugo be done [id number] 06/04 2014-05-29 2014-05-29 lab nullFl[facility] [place] [id number] 909-9 [facility] 19:12:00 19:12:00 invoice r Specialties [id number]-o l bill to [id number] Her hugo be done [id number] 06/04 2014-05-29 2014-05-29 lab null[facility] [place] a76ad b45-7 [facility] 19:12:00 19:12:00 invoice r Specialties [id number]-b l bill to [id number] Her hugo be done [id number] 06/04 2014-05-29 2014-05-29 lab nullFl[facility] [place] cd75c c76-e [facility] 19:12:00 19:12:00 invoice r Specialties [id number]-[id number] l bill to [id number] Her hugo be done [id number] 06/04 2014-05-29 2014-05-29 lab nullFl[facility] [place] 2235a 6cb-b [facility] 19:12:00 19:12:00 invoice r Specialties [id number]-t l bill to [id number] Her hugo be done [id number] 06/04 2014-05-29 2014-05-29 lab nullFl[facility] [place] [id number] c1a-6 [facility] 19:12:00 19:12:00 invoice r Specialties 7s6-20g7-j l bill to [id number] Her hugo be done [id number] 06/04 2014-05-29 2014-05-29 lab nullFl[facility] [place] 14e93 989-2 [facility] 19:12:00 19:12:00 invoice r Specialties 633-480e-8 l bill to [id number] Her hugo be done [id number] 06/04 2014-05-29 2014-05-29 lab nullFl[facility] [place] [id number] 8df-8 [facility] 19:12:00 19:12:00 invoice r Specialties [id number]-b l bill to [id number] Her hugo be done [id number] 06/04 2014-05-29 2014-05-29 lab nullFl[facility] [place] 50e3e 766-0 [facility] 19:12:00 19:12:00 invoice r Specialties 72d-42cb-b l bill to [id number] Her hugo be done [id number] 06/04 2014-05-29 2014-05-29 lab nullFl[facility] [place] 14de4 375-9 [facility] 19:12:00 19:12:00 invoice r Specialties a8v-4m60-p l bill to [id number] Her hugo be done [id number] 06/04 2014-05-29 2014-05-29 lab nullFl[facility] [place] [id number] 048-3 [facility] 19:12:00 19:12:00 invoice r Specialties [id number] l bill to [id number] Her hugo be done [id number] 06/04 2014-05-29 2014-05-29 lab [facility] [place] 7ed23 43c-4 [facility] 19:12:00 19:12:00 invoice r Specialties 90d-4218-a l bill to d1a-48v77c Her hugo be done fb3fa3 06/04 2014-05-29 2014-05-29 [facility] [place] 92e89 aa4-8 [facility] 17:02:00 17:02:00 r Specialties dc5-4bc8-a l a78-064w44 Mi nn 78cb3f 2014-05-29 2014-05-29 [facility] [place] 944a5 f3e-4 [facility] 17:02:00 17:02:00 r Specialties da7-49cb-b l 6i7-a3sm5s Mi nn 02ad5b 2014-05-29 2014-05-29 [facility] [place] fb6bb d6d-a [facility] 17:02:00 17:02:00 r Specialties 3aa-4f66-b l 8v4-e6436j Mi nn 3d60fa 2014-05-29 2014-05-29 [facility] [place] 5d1ae 2d2-b [facility] 17:02:00 17:02:00 r Specialties 315-4f6e-8 l s4k-97xpk4 Mi nn 115c01 2014-05-29 2014-05-29 [facility] [place] a7739 605-8 [facility] 17:02:00 17:02:00 r Specialties 64a-4246-b l g3l-vu5422 Mi nn 47fbed 2014-05-29 2014-05-29 [facility] [place] af902 965-4 [facility] 17:02:00 17:02:00 r Specialties 4a8-8556-p l d8d-257620 Mi nn ad17ad 2014-05-29 2014-05-29 [facility] [place] 908a0 791-1 [facility] 17:02:00 17:02:00 r Specialties 0q9-7207-i l h66-351602 Mi nn 8728fc 2014-05-29 2014-05-29 [facility] [place] 3c6f8 f1f-f [facility] 17:02:00 17:02:00 r Specialties 61c-492f-8 l 7a0-e323f2 Mi nn n9030b 2014-05-29 2014-05-29 [facility] [place] 0d823 04f-f [facility] 17:02:00 17:02:00 r Specialties 457-4f21-9 l 631-796c93 Mi nn 36cae8 2014-05-29 2014-05-29 [facility] [place] f0207 f7e-9 [facility] 17:02:00 17:02:00 r Specialties 7y2-1l04-q l 185-ee5c2c Mi nn a159cc 2014-05-29 2014-05-29 [facility] [place] 9b395 8ad-1 [facility] 17:02:00 17:02:00 r Specialties 257-46c3-8 l 890-f79aea Mi nn 57z375 2014-05-29 2014-05-29 [facility] [place] 5ccb3 689-3 [facility] 17:02:00 17:02:00 r Specialties 329-44ba-8 l 0j7-1v827a Mi nn 6da8cc 2014-05-29 2014-05-29 [facility] [place] c6a56 770-e [facility] 17:02:00 17:02:00 r Specialties c96-5028-p l 17d-f8dfa8 Mi nn 235fc2 2014-05-29 2014-05-29 [facility] [place] 3ad95 2ec-e [facility] 17:02:00 17:02:00 r Specialties 039-4e0c-a l ce3-36aa2b Mi nn 4baafa 2014-05-29 2014-05-29 [facility] [place] dd0d0 1c7-f [facility] 17:02:00 17:02:00 r Specialties 960-4488-a l 30f-48ea62 Mi nn e9c2e2 2014-05-29 2014-05-29 [facility] [place] 498f8 611-d [facility] 17:02:00 17:02:00 r Specialties ae4-4a37-b l 085-71acf3 Mi nn e455d6 2014-05-29 2014-05-29 [facility] [place] 85e06 e06-a [facility] 17:02:00 17:02:00 r Specialties 183-4d30-b l fd9-d817e9 Mi nn 1d1e66 2014-05-29 2014-05-29 [facility] [place] 86da3 1ca-1 [facility] 17:02:00 17:02:00 r Specialties 5de-4e99-9 l 952-14f9c2 Mi nn 5j8720 2014-05-29 2014-05-29 [facility] [place] f1c3d 353-8 [facility] 17:02:00 17:02:00 r Specialties bec-4807-a l b0n-2e0t0x Mi nn cf9f64 2014-05-29 2014-05-29 [facility] [place] a5ccf 1f6-a [facility] 17:02:00 17:02:00 r Specialties 1ee-40f2-8 l abf-35d92f Mi nn a3b19b 2014-05-29 2014-05-29 [facility] [place] 33011 eb1-c [facility] 17:02:00 17:02:00 r Specialties g6k-67l7-g l z14-2ln54f Mi nn 2f0a2f 2014-05-29 2014-05-29 [facility] [place] 057db 857-d [facility] 17:02:00 17:02:00 r Specialties cf8-41ad-8 l 44d-87a7b4 Mi nn b5fab1 2014-05-29 2014-05-29 [facility] [place] 57eac a08-4 [facility] 17:02:00 17:02:00 r Specialties x7x-0udj-1 l 697-84e55f Mi nn 3h534x 2014-05-29 2014-05-29 [facility] [place] fb6bb d6d-a [facility] 17:02:00 17:02:00 r Specialties 3aa-4f66-b l 2u3-d1824x Mi nn 3d60fa 2014-05-29 2014-05-29 [facility] [place] 92e89 aa4-8 [facility] 17:02:00 17:02:00 r Specialties dc5-4bc8-a l l91-839x77 Mi nn 78cb3f 2014-05-29 2014-05-29 [facility] [place] 3c6f8 f1f-f [facility] 17:02:00 17:02:00 r Specialties 61c-492f-8 l 1j8-z521e8 Mi nn h4513h 2014-05-29 2014-05-29 [facility] [place] 908a0 791-1 [facility] 17:02:00 17:02:00 r Specialties 7r1-7789-l l d84-313026 Mi nn 8728fc 2014-05-29 2014-05-29 [facility] [place] 944a5 f3e-4 [facility] 17:02:00 17:02:00 r Specialties da7-49cb-b l 4r1-n9rn5d Mi nn 02ad5b 2014-05-29 2014-05-29 [facility] [place] 0d823 04f-f [facility] 17:02:00 17:02:00 r Specialties 457-4f21-9 l 631-796c93 Mi nn 36cae8 2014-05-29 2014-05-29 [facility] [place] a7739 605-8 [facility] 17:02:00 17:02:00 r Specialties 64a-4246-b l l0d-lx7173 Mi nn 47fbed 2014-05-29 2014-05-29 [facility] [place] 5d1ae 2d2-b [facility] 17:02:00 17:02:00 r Specialties 315-4f6e-8 l h1f-61ajz2 Mi nn 115c01 2014-05-29 2014-05-29 [facility] [place] af902 965-4 [facility] 17:02:00 17:02:00 r Specialties 3p0-3671-n l c9k-039014 Mi nn ad17ad 2014-05-29 2014-05-29 [facility] [place] f0207 f7e-9 [facility] 17:02:00 17:02:00 r Specialties 0o1-3i93-k l 185-ee5c2c Mi nn a159cc 2014-05-29 2014-05-29 [facility] [place] 498f8 611-d [facility] 17:02:00 17:02:00 r Specialties ae4-4a37-b l 085-71acf3 Mi nn e455d6 2014-05-29 2014-05-29 [facility] [place] c6a56 770-e [facility] 17:02:00 17:02:00 r Specialties j05-8707-d l 17d-f8dfa8 Mi nn 235fc2 2014-05-29 2014-05-29 [facility] [place] 86da3 1ca-1 [facility] 17:02:00 17:02:00 r Specialties 5de-4e99-9 l 952-14f9c2 Mi nn 6r3220 2014-05-29 2014-05-29 [facility] [place] 3ad95 2ec-e [facility] 17:02:00 17:02:00 r Specialties 039-4e0c-a l ce3-36aa2b Mi nn 4baafa 2014-05-29 2014-05-29 [facility] [place] 5ccb3 689-3 [facility] 17:02:00 17:02:00 r Specialties 329-44ba-8 l 7i7-9q180p Mi nn 6da8cc 2014-05-29 2014-05-29 [facility] [place] dd0d0 1c7-f [facility] 17:02:00 17:02:00 r Specialties 960-4488-a l 30f-48ea62 Mi nn e9c2e2 2014-05-29 2014-05-29 [facility] [place] 80433 eb1-c [facility] 17:02:00 17:02:00 r Specialties z2c-00q3-x l x96-6un65m Mi nn 2f0a2f 2014-05-29 2014-05-29 [facility] [place] f1c3d 353-8 [facility] 17:02:00 17:02:00 r Specialties bec-4807-a l q4t-5m6z7x Mi nn cf9f64 2014-05-29 2014-05-29 [facility] [place] 85e06 e06-a [facility] 17:02:00 17:02:00 r Specialties 183-4d30-b l fd9-d817e9 Mi nn 1d1e66 2014-05-29 2014-05-29 [facility] [place] 9b395 8ad-1 [facility] 17:02:00 17:02:00 r Specialties 257-46c3-8 l 890-f79aea Mi nn 12s604 2014-05-29 2014-05-29 [facility] [place] a5ccf 1f6-a [facility] 17:02:00 17:02:00 r Specialties 1ee-40f2-8 l abf-35d92f Mi nn a3b19b 2014-05-29 2014-05-29 [facility] [place] 57eac a08-4 [facility] 17:02:00 17:02:00 r Specialties w6a-1hfh-9 l 697-84e55f Mi nn 7c190i 2014-05-29 2014-05-29 [facility] [place] 057db 857-d [facility] 17:02:00 17:02:00 r Specialties cf8-41ad-8 l 44d-87a7b4 Mi nn b5fab1 2014-05-29 2014-05-29 [facility] [place] 7e48d e41-3 [facility] 16:02:00 16:02:00 r Specialties 70b-4316-9 l 7s5-x44jd9 Mi nn 43d88c 2014-05-29 2014-05-29 [facility] [place] 48201 af9-2 [facility] 16:02:00 16:02:00 r Specialties 5c8-3w21-3 l l3q-397334 Mi nn 82d4ab 2014-05-29 2014-05-29 [facility] [place] b16e6 e9a-4 [facility] 16:02:00 16:02:00 r Specialties 8de-4503-a l 620-099508 Mi nn 58787a 2014-05-29 2014-05-29 [facility] [place] 14896 8a3-7 [facility] 16:02:00 16:02:00 r Specialties 704-4432-9 l 3g8-m3p35t Mi nn 67cb1e 2014-05-29 2014-05-29 [facility] [place] e6395 f4c-3 [facility] 16:02:00 16:02:00 r Specialties l4m-0u28-k l q73-33c9u7 Mi nn 4t0105 2014-05-29 2014-05-29 [facility] [place] 274a6 1a7-1 [facility] 16:02:00 16:02:00 r Specialties 51f-44b7-a l ae2-d06c08 [facility] nn d723ec 2014-05-29 2014-05-29 [facility] [place] 4c097 e8d-b [facility] 16:02:00 16:02:00 r Specialties ea6-47c8-b l 971-36adb7 [facility] nn 63520p 2014-05-29 2014-05-29 [facility] [place] 469ed da8-0 [facility] 16:02:00 16:02:00 r Specialties 287-4529-a l 257-2n8743 [facility] nn 7h7881 2014-05-29 2014-05-29 [facility] [place] a80e7 d36-6 [facility] 16:02:00 16:02:00 r Specialties 02d-4404-a l n52-r1q481 [facility] nn 7ee5c8 2014-05-29 2014-05-29 [facility] [place] 427d2 3ce-6 [facility] 16:02:00 16:02:00 r Specialties 07b-4379-a l i00-409l68 [facility] nn y22076 2014-05-29 2014-05-29 [facility] [place] 9d7ad 2d7-c [facility] 16:02:00 16:02:00 r Specialties n1r-7c80-8 l 976-38027e [facility] nn dj676w 2014-05-29 2014-05-29 [facility] [place] 0e2a7 c4e-f [facility] 16:02:00 16:02:00 r Specialties 199-404c-8 l 66b-ad30ba Mi nn 5sd094 2014-05-29 2014-05-29 [facility] [place] df927 99a-5 [facility] 16:02:00 16:02:00 r Specialties 967-4c01-8 l 6s9-31b525 Mi nn cp5852 2014-05-29 2014-05-29 [facility] [place] 3494e 72d-1 [facility] 16:02:00 16:02:00 r Specialties c16-9ss6-z l 7fa-37f0b8 Mi nn d6a3f7 2014-05-29 2014-05-29 [facility] [place] f3ebd b22-9 [facility] 16:02:00 16:02:00 r Specialties r3v-9974-b l 71b-fcd3e9 Mi nn a79da6 2014-05-29 2014-05-29 [facility] [place] b1ae0 f31-e [facility] 16:02:00 16:02:00 r Specialties j0o-039o-k l 5af-c23c09 [facility] nn 009b9d 2014-05-29 2014-05-29 [facility] [place] bc31a 370-2 [facility] 16:02:00 16:02:00 r Specialties 99f-4ad5-b l 031-g0v529 Mi nn 462c18 2014-05-29 2014-05-29 [facility] [place] e4880 7b1-5 [facility] 16:02:00 16:02:00 r Specialties 47f-48b9-9 l 8bf-4a26e0 Mi nn e46d86 2014-05-29 2014-05-29 [facility] [place] ac986 a9d-4 [facility] 16:02:00 16:02:00 r Specialties l06-1ph5-m l 645-ab01b5 Mi nn d13b10 2014-05-29 2014-05-29 [facility] [place] 83475 3c3-2 [facility] 16:02:00 16:02:00 r Specialties 8bf-401b-8 l 8ad-3hr694 Mi nn 94d1d4 2014-05-29 2014-05-29 [facility] [place] 9ba2d 894-f [facility] 16:02:00 16:02:00 r Specialties aea-46c4-a l 084-28d9d0 Mi nn 38f38e 2014-05-29 2014-05-29 [facility] [place] 0ad5e dd5-b [facility] 16:02:00 16:02:00 r Specialties 9l3-1926-2 l 31b-t7b365 Mi nn 26afae 2014-05-29 2014-05-29 [facility] [place] 76bc4 98d-e [facility] 16:02:00 16:02:00 r Specialties j08-4g56-6 l bde-e600ed Mi nn fc1f35 2014-05-29 2014-05-29 [facility] [place] e3400 57c-e [facility] 16:02:00 16:02:00 r Specialties 4p1-0357-6 l 112-l41934 Mi nn 24e6c9 2014-05-29 2014-05-29 [facility] [place] 0a590 5e1-4 [facility] 16:02:00 16:02:00 r Specialties 5e6-0y8m-9 l 23c-eed8fb Mi nn ccd2d0 2014-05-29 2014-05-29 [facility] [place] 407a6 7f5-d [facility] 16:02:00 16:02:00 r Specialties 30b-40fc-9 l r97-20r1jn Mi nn d608e7 2014-05-29 2014-05-29 [facility] [place] 43903 8a3-7 [facility] 16:02:00 16:02:00 r Specialties 704-4432-9 l 5o4-z2u94w Mi nn 67cb1e 2014-05-29 2014-05-29 [facility] [place] 7e48d e41-3 [facility] 16:02:00 16:02:00 r Specialties 70b-4316-9 l 2d9-q03yl8 Mi nn 43d88c 2014-05-29 2014-05-29 [facility] [place] e6395 f4c-3 [facility] 16:02:00 16:02:00 r Specialties e0f-4j36-g l v99-99i5s0 Mi nn 3v9272 2014-05-29 2014-05-29 [facility] [place] 00269 af9-2 [facility] 16:02:00 16:02:00 r Specialties 1h1-4g62-1 l n5c-882655 Mi nn 82d4ab 2014-05-29 2014-05-29 [facility] [place] b16e6 e9a-4 [facility] 16:02:00 16:02:00 r Specialties 8de-4503-a l 620-130024 Mi nn 10551n 2014-05-29 2014-05-29 [facility] [place] 274a6 1a7-1 [facility] 16:02:00 16:02:00 r Specialties 51f-44b7-a l ae2-d06c08 Mi nn d723ec 2014-05-29 2014-05-29 [facility] [place] 469ed da8-0 [facility] 16:02:00 16:02:00 r Specialties 287-4529-a l 257-7f1526 Mi nn 0i1668 2014-05-29 2014-05-29 [facility] [place] 427d2 3ce-6 [facility] 16:02:00 16:02:00 r Specialties 07b-4379-a l x96-778e82 Mi nn j03866 2014-05-29 2014-05-29 [facility] [place] a80e7 d36-6 [facility] 16:02:00 16:02:00 r Specialties 02d-4404-a l f96-m4x287 Mi nn 7ee5c8 2014-05-29 2014-05-29 [facility] [place] 4c097 e8d-b [facility] 16:02:00 16:02:00 r Specialties ea6-47c8-b l 971-36adb7 Mi nn 94411h 2014-05-29 2014-05-29 [facility] [place] df927 99a-5 [facility] 16:02:00 16:02:00 r Specialties 967-4c01-8 l 4o1-65y035 Mi nn de5766 2014-05-29 2014-05-29 [facility] [place] bc31a 370-2 [facility] 16:02:00 16:02:00 r Specialties 99f-4ad5-b l 031-a0y789 Mi nn 462c18 2014-05-29 2014-05-29 [facility] [place] b1ae0 f31-e [facility] 16:02:00 16:02:00 r Specialties j7z-824z-o l 5af-c23c09 [facility] nn 009b9d 2014-05-29 2014-05-29 [facility] [place] 9d7ad 2d7-c [facility] 16:02:00 16:02:00 r Specialties q7o-4t85-1 l 976-49986d [facility] nn cg953a 2014-05-29 2014-05-29 [facility] [place] 0e2a7 c4e-f [facility] 16:02:00 16:02:00 r Specialties 199-404c-8 l 66b-ad30ba [facility] nn 2am571 2014-05-29 2014-05-29 [facility] [place] e4880 7b1-5 [facility] 16:02:00 16:02:00 r Specialties 47f-48b9-9 l 8bf-4a26e0 [facility] nn e46d86 2014-05-29 2014-05-29 [facility] [place] f3ebd b22-9 [facility] 16:02:00 16:02:00 r Specialties q8e-5444-n l 71b-fcd3e9 [facility] nn a79da6 2014-05-29 2014-05-29 [facility] [place] 0ad5e dd5-b [facility] 16:02:00 16:02:00 r Specialties 6g0-4545-5 l 31b-b8v025 [facility] nn 26afae 2014-05-29 2014-05-29 [facility] [place] 76bc4 98d-e [facility] 16:02:00 16:02:00 r Specialties n60-6i69-1 l bde-e600ed [facility] nn fc1f35 2014-05-29 2014-05-29 [facility] [place] e3400 57c-e [facility] 16:02:00 16:02:00 r Specialties 4c2-4607-6 l 112-z95287 [facility] nn 24e6c9 2014-05-29 2014-05-29 [facility] [place] ac986 a9d-4 [facility] 16:02:00 16:02:00 r Specialties h19-0oy5-h l 645-ab01b5 Mi nn d13b10 2014-05-29 2014-05-29 [facility] [place] 3494e 72d-1 [facility] 16:02:00 16:02:00 r Specialties s47-3ql1-f l 7fa-37f0b8 Mi nn d6a3f7 2014-05-29 2014-05-29 [facility] [place] 0a590 5e1-4 [facility] 16:02:00 16:02:00 r Specialties 0l6-1h0e-9 l 23c-eed8fb Mi nn ccd2d0 2014-05-29 2014-05-29 [facility] [place] 07882 3c3-2 [facility] 16:02:00 16:02:00 r Specialties 8bf-401b-8 l 8ad-9jv299 Mi nn 94d1d4 2014-05-29 2014-05-29 [facility] [place] 9ba2d 894-f [facility] 16:02:00 16:02:00 r Specialties aea-46c4-a l 084-28d9d0 Mi nn 38f38e 2014-05-29 2014-05-29 [facility] [place] 407a6 7f5-d [facility] 16:02:00 16:02:00 r Specialties 30b-40fc-9 l j70-83o5un Mi nn d608e7 2014-05-28 2014-05-28 R/S appt. [facility] [place] 680 0px34-z [facility] 15:17:00 15:17:00 r Specialties j8n-0gzw-j l 083-0bd2b4 Mi nn ih419x 2014-05-28 2014-05-28 R/S appt. [facility] [place] 55c o3y9l-5 [facility] 15:17:00 15:17:00 r Specialties 638-4d9c-b l 3df-69g924 Mi nn u6903w 2014-05-28 2014-05-28 R/S appt. [facility] [place] 372 65o25-7 [facility] 15:17:00 15:17:00 r Specialties 458-4178-8 l 6cf-bf11a9 [facility] nn b2v683 2014-05-28 2014-05-28 R/S appt. [facility] [place] 9d2 i724k-2 [facility] 15:17:00 15:17:00 r Specialties z46-8x08-g l 555-d5t911 [facility] nn 273421 6346-04-06 2014-05-28 R/S appt. [facility] [place] 2f1 66652-f [facility] 15:17:00 15:17:00 r Specialties 986-4d2a-a l 0z3-89eik6 [facility] nn 5ab9c9 2014-05-28 2014-05-28 R/S appt. [facility] [place] 0e2 16471-1 [facility] 15:17:00 15:17:00 r Specialties z6t-3e75-w l 3ba-7lo293 [facility] nn 8dbe18 2014-05-28 2014-05-28 R/S appt. [facility] [place] bcc a67t9-l [facility] 15:17:00 15:17:00 r Specialties 2bf-4dfc-a l 490-4dfd18 [facility] nn 54230z 2014-05-28 2014-05-28 R/S appt. [facility] [place] 5e4 5t899-z [facility] 15:17:00 15:17:00 r Specialties 57f-4c24-b l 064-24bbc3 [facility] nn 676a77 2014-05-28 2014-05-28 R/S appt. [facility] [place] 4ea 24n39-j [facility] 15:17:00 15:17:00 r Specialties 381-4c72-9 l f8k-g252n3 [facility] nn u71708 2014-05-28 2014-05-28 R/S appt. [facility] [place] a6e v6764-5 [facility] 15:17:00 15:17:00 r Specialties v2s-45np-6 l 019-80846s [facility] nn 3d3384 2014-05-28 2014-05-28 R/S appt. [facility] [place] b5d 5u82w-5 [facility] 15:17:00 15:17:00 r Specialties d29-1j18-2 l df9-3a1362 [facility] nn 3caa85 2014-05-28 2014-05-28 R/S appt. [facility] [place] ef6 os8eu-9 [facility] 15:17:00 15:17:00 r Specialties w9s-83ip-y l 338-621b19 [facility] nn f2ef8f 2014-05-28 2014-05-28 R/S appt. [facility] [place] fb6 41zj3-w [facility] 15:17:00 15:17:00 r Specialties 1n9-5u99-h l j1e-v47992 [facility] nn ee63f0 2014-05-28 2014-05-28 R/S appt. [facility] [place] f2b 4av86-9 [facility] 15:17:00 15:17:00 r Specialties 577-4b61-b l da9-638559 [facility] nn 43469q 2014-05-28 2014-05-28 R/S appt. [facility] [place] 63c 5i9d9-8 [facility] 15:17:00 15:17:00 r Specialties 673-4bcd-9 l 662-90486z [facility] nn 4345d2 2014-05-28 2014-05-28 R/S appt. [facility] [place] a65 a8265-2 [facility] 15:17:00 15:17:00 r Specialties 008-4645-8 l 9cf-9tt538 [facility] nn 18p355 2014-05-28 2014-05-28 R/S appt. [facility] [place] 889 46389-4 [facility] 15:17:00 15:17:00 r Specialties u71-83j3-u l 047-1194a7 [facility] nn bfaf8d 2014-05-28 2014-05-28 R/S appt. [facility] [place] 5cc s5035-q [facility] 15:17:00 15:17:00 r Specialties 576-437c-8 l 883-9e2b25 [facility] nn 2il432 2014-05-28 2014-05-28 R/S appt. [facility] [place] 763 99573-g [facility] 15:17:00 15:17:00 r Specialties f5z-5nyd-p l t10-e19763 [facility] nn 20554y 2014-05-28 2014-05-28 R/S appt. [facility] [place] c27 u5nx2-f [facility] 15:17:00 15:17:00 r Specialties e8r-0hk7-v l 3h7-jc2018 Mi nn 078f1a 2014-05-28 2014-05-28 R/S appt. [facility] [place] 06e 37966-u [facility] 15:17:00 15:17:00 r Specialties ef0-41ac-b l ed2-kzq005 [facility] nn 44badc 2014-05-28 2014-05-28 R/S appt. [facility] [place] 8e3 y6794-a [facility] 15:17:00 15:17:00 r Specialties 892-4859-9 l m9o-8459a8 [facility] nn 80c37e 2014-05-28 2014-05-28 R/S appt. [facility] [place] 10e 756m8-u [facility] 15:17:00 15:17:00 r Specialties 4m1-59f3-9 l 8d7-51259b [facility] nn bcd2b4 2014-05-28 2014-05-28 R/S appt. [facility] [place] 372 94o84-0 [facility] 15:17:00 15:17:00 r Specialties 458-4178-8 l 6cf-bf11a9 [facility] nn w1n272 2014-05-28 2014-05-28 R/S appt. [facility] [place] 680 1wd75-n [facility] 15:17:00 15:17:00 r Specialties a0d-5ohw-j l 083-0bd2b4 [facility] nn kg544u 2014-05-28 2014-05-28 R/S appt. [facility] [place] 5e4 0g296-r [facility] 15:17:00 15:17:00 r Specialties 57f-4c24-b l 064-24bbc3 [facility] nn 676a77 2014-05-28 2014-05-28 R/S appt. [facility] [place] bcc i96c8-m [facility] 15:17:00 15:17:00 r Specialties 2bf-4dfc-a l 490-4dfd18 Mi nn 86196z 2014-05-28 2014-05-28 R/S appt. [facility] [place] 55c w4s0w-8 [facility] 15:17:00 15:17:00 r Specialties 638-4d9c-b l 3df-92i838 Mi nn k0785v 2014-05-28 2014-05-28 R/S appt. [facility] [place] 4ea 84p66-q [facility] 15:17:00 15:17:00 r Specialties 381-4c72-9 l s2m-h577e4 Im nn n84188 2014-05-28 2014-05-28 R/S appt. [facility] [place] 2f1 00679-o [facility] 15:17:00 15:17:00 r Specialties 986-4d2a-a l 1h2-47mfi8 Mi nn 5ab9c9 2014-05-28 2014-05-28 R/S appt. nullFl[facility] [place] 9d2 e416q-0 [facility] 15:17:00 15:17:00 r Specialties z78-5r27-c l [id number]-d9r740 [facility] nn 338773 2310-04-06 2014-05-28 R/S appt. nullFlavo [place] 0e2 50552-6 [facility] 15:17:00 15:17:00 r Specialties g9w-2j64-c l 3ba-2lz034 Mi nn 8dbe18 2014-05-28 2014-05-28 R/S appt. nullFl[facility] [place] a6e n9281-7 [facility] 15:17:00 15:17:00 r Specialties s6r-67kz-3 l 019-54595z [facility] nn [id number] 2014-05-28 2014-05-28 R/S appt. nullFl[facility] [place] a65 o4088-8 [facility] 15:17:00 15:17:00 r Specialties 008-4645-8 l 9cf-9zn943 [facility] nn [id number] 2014-05-28 2014-05-28 R/S appt. nullFl[facility] [place] fb6 06sa3-b [facility] 15:17:00 15:17:00 r Specialties 1q7-9w16-h l x6o-s67496 [facility] nn ee63f0 2014-05-28 2014-05-28 R/S appt. nullFl[facility] [place] 5cc e8741-w [facility] 15:17:00 15:17:00 r Specialties 576-437c-8 l 883-9e2b25 [facility] nn 4xh626 2014-05-28 2014-05-28 R/S appt. nullFlavo [place] f2b 9im34-0 [facility] 15:17:00 15:17:00 r Specialties 577-4b61-b l da9-268508 [facility] nn 59837n 2014-05-28 2014-05-28 R/S appt. nullFl[facility] [place] ef6 fo7vm-6 [facility] 15:17:00 15:17:00 r Specialties g4y-78yg-f l 338-621b19 [facility] nn f2ef8f 2014-05-28 2014-05-28 R/S appt. nullFl[facility] [place] 63c 4g4n7-6 [facility] 15:17:00 15:17:00 r Specialties 673-4bcd-9 l [id number] [facility] nn [id number] 2014-05-28 2014-05-28 R/S appt. nullFl[facility] [place] 06e 06952-m [facility] 15:17:00 15:17:00 r Specialties ef0-41ac-b l ed2-ewe541 [facility] nn 44badc 2014-05-28 2014-05-28 R/S appt. nullFlavo [place] 763 11301-d [facility] 15:17:00 15:17:00 r Specialties m3q-3iuq-b l z72-q07640 [facility] nn 54384c 2014-05-28 2014-05-28 R/S appt. nullFlavo [place] 889 05611-4 [facility] 15:17:00 15:17:00 r Specialties y27-83l3-s l 047-1194a7 [facility] nn bfaf8d 2014-05-28 2014-05-28 R/S appt. nullFl[facility] [place] b5d 7j53i-2 [facility] 15:17:00 15:17:00 r Specialties k83-6o83-0 l df9-4g7338 [facility] nn 3caa85 2014-05-28 2014-05-28 R/S appt. nullFl[facility] [place] c27 t0cb3-c [facility] 15:17:00 15:17:00 r Specialties j9o-8id8-p l 2c6-km5143 Mi nn 078f1a 2014-05-28 2014-05-28 R/S appt. null[facility] [place] 10e 028h2-z [facility] 15:17:00 15:17:00 r Specialties 6i7-49e8-4 l 0o0-04386i Mi nn bcd2b4 2014-05-28 2014-05-28 R/S appt. null[facility] [place] 8e3 l7387-u [facility] 15:17:00 15:17:00 r Specialties 892-4859-9 l v0x-9770s0 Mi nn 80c37e 2014-05-28 2014-05-28 R/S appt. nullFl[facility] [place] 43c 5146e-c [facility] 14:17:00 14:17:00 r Specialties fb6-4d68-a l 565-r7c883 Mi nn 0a88ec 2014-05-28 2014-05-28 R/S appt. nullFl[facility] [place] 7b0 0862f-9 [facility] 14:17:00 14:17:00 r Specialties 643-47e2-8 l 78b-962e2e Mi nn 7ffe15 2014-05-28 2014-05-28 R/S appt. null[facility] [place] 7d0 007bb-5 [facility] 14:17:00 14:17:00 r Specialties 336-4389-b l ccf-438bbc Mi nn 1dbc82 2014-05-28 2014-05-28 R/S appt. nullFl[facility] [place] ed1 nmr3w-9 [facility] 14:17:00 14:17:00 r Specialties v8o-1760-o l 816-0292be Mi nn 299abf 2014-05-28 2014-05-28 R/S appt. nullFl[facility] [place] f59 n9505-1 [facility] 14:17:00 14:17:00 r Specialties 743-4ff6-9 l 70b-69515o Mi nn b7d7cb 2014-05-28 2014-05-28 R/S appt. nullFl[facility] [place] c00 7072b-e [facility] 14:17:00 14:17:00 r Specialties eca-41e5-b l 931-cfa2b3 [facility] nn [id number] 2014-05-28 2014-05-28 R/S appt. nullFl[facility] [place] b34 579x7-6 [facility] 14:17:00 14:17:00 r Specialties ff4-478c-b l 780-c95333 [facility] nn 82894p 2014-05-28 2014-05-28 R/S appt. nullFl[facility] [place] d82 1i492-9 [facility] 14:17:00 14:17:00 r Specialties f92-5384-x l 9b2-n839w5 [facility] nn 4622fe 2014-05-28 2014-05-28 R/S appt. nullFl[facility] [place] 2cd 0b0la-3 [facility] 14:17:00 14:17:00 r Specialties 971-42ec-a l 9fa-d8a60f [facility] nn 57c28e 2014-05-28 2014-05-28 R/S appt. 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 nullFl[facility] [place] d18 9k2m2-3 [facility] 14:17:00 14:17:00 r Specialties ac4-4752-9 l 085-2242fb [facility] nn 4pt286 2014-05-28 2014-05-28 R/S appt. nullFl[facility] [place] 381 0330f-d [facility] 14:17:00 14:17:00 r Specialties 447-4224-9 l 7dd-24fca8 [facility] nn 103332 5425-04-06 2014-05-28 R/S appt. nullFl[facility] [place] 2b2 75y06-1 [facility] 14:17:00 14:17:00 r Specialties h0b-231i-7 l g44-xi3ms8 [facility] 336380 1207-04-06 2014-05-28 R/S appt. nullFlavo [place] 5b3 0098f-6 [facility] 14:17:00 14:17:00 r Specialties y22-1na3-l l bcd-ef4ebe [facility] tw398j 2014-05-28 2014-05-28 R/S appt. nullFlavo [place] 69e 6tj68-3 [facility] 14:17:00 14:17:00 r Specialties 434-45f1-b l 6a8-q52545 [facility] 42a30c 2014-05-28 2014-05-28 R/S appt. nullFlavo [place] d77 6503f-b [facility] 14:17:00 14:17:00 r Specialties 82e-475d-9 l 273-1f6b59 [facility] 492ae4 2014-05-28 2014-05-28 R/S appt. nullFlavo [place] 87d 06y49-d [facility] 14:17:00 14:17:00 r Specialties 9bb-40c6-8 l 88e-7c0fd1 [facility] 3f8a46 2014-05-28 2014-05-28 R/S appt. nullFlavo [place] f0a 3h16n-5 [facility] 14:17:00 14:17:00 r Specialties t15-076o-d l ceb-d105b9 [facility] [id number] 2014-05-28 2014-05-28 R/S appt. nullFlavo [place] f35 0565d-7 [facility] 14:17:00 14:17:00 r Specialties 749-49d2-a l 90f-966d65 [facility] siq874 2014-05-28 2014-05-28 R/S appt. nullFlavo [place] 3bd 499j3-2 [facility] 14:17:00 14:17:00 r Specialties 1bc-477a-8 l g60-0u4077 [facility] 6f8cf7 2014-05-28 2014-05-28 R/S appt. nullFlavo [place] e62 r94gs-j [facility] 14:17:00 14:17:00 r Specialties o23-12l0-1 l fa4-09dc0d [facility] 401a7e 2014-05-28 2014-05-28 R/S appt. nullFlavo [place] bfe z92y8-2 [facility] 14:17:00 14:17:00 r Specialties 629-467a-a l j47-9h03vf [facility] nn 2fd11d 2014-05-28 2014-05-28 R/S appt. nullFlavo [place] 0b1 80423-0 [facility] 14:17:00 14:17:00 r Specialties 0d5-0wx6-8 l 6ff-e07815 [facility] nn 70eb81 2014-05-28 2014-05-28 R/S appt. nullFlavo [place] 099 i4u5n-j [facility] 14:17:00 14:17:00 r Specialties u1k-173n-y l 165-e295cd [facility] nn cr3668 2014-05-28 2014-05-28 R/S appt. nullFlavo [place] 847 01121-0 [facility] 14:17:00 14:17:00 r Specialties 61c-4a2d-b l 65b-6fc4a8 [facility] nn 1ae8c3 2014-05-28 2014-05-28 R/S appt. nullFlavo [place] 761 1o135-4 [facility] 14:17:00 14:17:00 r Specialties fb4-44b4-b l 00e-708942 [facility] nn [id number] 6897-04-06 2014-05-28 R/S appt. nullFlavo [place] ed1 bzd5e-4 [facility] 14:17:00 14:17:00 r Specialties e3d-6468-i l 816-0292be [facility] nn 299abf 2014-05-28 2014-05-28 R/S appt. nullFlavo [place] 43c 5146e-c [facility] 14:17:00 14:17:00 r Specialties fb6-4d68-a l 565-x9k592 [facility] nn 0a88ec 2014-05-28 2014-05-28 R/S appt. nullFlavo [place] f59 v4616-2 [facility] 14:17:00 14:17:00 r Specialties 743-4ff6-9 l 70b-72904k [facility] b7d7cb 2014-05-28 2014-05-28 R/S appt. nullFl[facility] [place] 7b0 0862f-9 [facility] 14:17:00 14:17:00 r Specialties 643-47e2-8 l 78b-962e2e [facility] 7ffe15 2014-05-28 2014-05-28 R/S appt. nullFl[facility] [place] 7d0 007bb-5 [facility] 14:17:00 14:17:00 r Specialties 336-4389-b l ccf-438bbc [facility] 1dbc82 2014-05-28 2014-05-28 R/S appt. nullFlavo [place] c00 7072b-e [facility] 14:17:00 14:17:00 r Specialties eca-41e5-b l 931-cfa2b3 [facility] [id number] 2014-05-28 2014-05-28 R/S appt. nullFlavo [place] d82 3w966-4 [facility] 14:17:00 14:17:00 r Specialties c70-0582-g l 7k8-t110i7 [facility] 4622fe 2014-05-28 2014-05-28 R/S appt. [facility]Fl[facility] [place] 11a 0u903-7 [facility] 14:17:00 14:17:00 r Specialties elder assistant-4d47-a l 6n8-cm2r03 [facility] xc994g 2014-05-28 2014-05-28 R/S appt. nullFl[facility] [place] 2cd 5p6ut-4 [facility] 14:17:00 14:17:00 r Specialties 971-42ec-a l 9fa-d8a60f [facility] 57c28e 2014-05-28 2014-05-28 R/S appt. nullFlavo [place] b34 775v0-9 [facility] 14:17:00 14:17:00 r Specialties ff4-478c-b l 780-y73419 [facility] 29709z 2014-05-28 2014-05-28 R/S appt. nullFl[facility] [place] 2b2 58v55-9 [facility] 14:17:00 14:17:00 r Specialties j2q-882n-8 l f85-yz0af4 [facility] 539463 5658-04-06 2014-05-28 R/S appt. nullFl[facility] [place] 87d 85n75-y [facility] 14:17:00 14:17:00 r Specialties 9bb-40c6-8 l 88e-7c0fd1 Mi nn 3f8a46 2014-05-28 2014-05-28 R/S appt. nullFl[facility] [place] d77 6503f-b [facility] 14:17:00 14:17:00 r Specialties 82e-475d-9 l 273-1f6b59 Mi nn 492ae4 2014-05-28 2014-05-28 R/S appt. nullFlavo [place] d18 9g0y2-6 [facility] 14:17:00 14:17:00 r Specialties ac4-4752-9 l 085-2242fb Mi nn 0zw537 2014-05-28 2014-05-28 R/S appt. nullFl[facility] [place] 381 0330f-d [facility] 14:17:00 14:17:00 r Specialties 447-4224-9 l 7dd-24fca8 Mi nn 305398 4745-04-06 2014-05-28 R/S appt. nullFl[facility] [place] f0a 5p31n-9 [facility] 14:17:00 14:17:00 r Specialties s81-268v-q l ceb-d105b9 Mi nn 2o6232 2014-05-28 2014-05-28 R/S appt. nullFlavo [place] 69e 4bh98-8 [facility] 14:17:00 14:17:00 r Specialties 434-45f1-b l 8x1-o96381 Mi nn 42a30c 2014-05-28 2014-05-28 R/S appt. nullFlavo [place] bfe b02a8-0 [facility] 14:17:00 14:17:00 r Specialties 629-467a-a l p28-7c73th Mi nn 2fd11d 2014-05-28 2014-05-28 R/S appt. nullFlavo [place] 0b1 76387-5 [facility] 14:17:00 14:17:00 r Specialties 3e3-7aa0-9 l 6ff-a24642 Mi nn 70eb81 2014-05-28 2014-05-28 R/S appt. nullFlavo [place] 099 w3o0r-f [facility] 14:17:00 14:17:00 r Specialties w9x-047o-t l 165-e295cd [facility] nn bd0452 2014-05-28 2014-05-28 R/S appt. nullFlavo [place] f35 0565d-7 [facility] 14:17:00 14:17:00 r Specialties 749-49d2-a l 90f-966d65 [facility] nn xzd950 2014-05-28 2014-05-28 R/S appt. nullFlavo [place] 5b3 0098f-6 [facility] 14:17:00 14:17:00 r Specialties p40-9op7-c l bcd-ef4ebe [facility] nn ld451m 2014-05-28 2014-05-28 R/S appt. nullFlavo [place] 847 98546-7 [facility] 14:17:00 14:17:00 r Specialties 61c-4a2d-b l 65b-6fc4a8 [facility] nn 1ae8c3 2014-05-28 2014-05-28 R/S appt. nullFl[facility] [place] 3bd 888f2-2 [facility] 14:17:00 14:17:00 r Specialties 1bc-477a-8 l v01-5h6202 [facility] nn 6f8cf7 2014-05-28 2014-05-28 R/S appt. nullFlavo [place] e62 b47um-g [facility] 14:17:00 14:17:00 r Specialties b67-64y5-5 l fa4-09dc0d [facility] nn 401a7e 2014-05-28 2014-05-28 R/S appt. nullFl[facility] [place] 761 2n723-3 [facility] 14:17:00 14:17:00 r Specialties fb4-44b4-b l 00e-062931 [facility] nn 137620 0959-04-06 2014-05-28 [facility] [place] 3074 08 eClinic 09:17:00 09:17:00 [facility] es 2014-05-22 2014-05-22 Needs an nullFlavo [place] c2f0 fef1-a [facility] 21:03:00 21:03:00 appointmen r Specialties 964-4c7 3-a l t adc-wui025 Mi nn scheduled 16f6df 2014-05-22 2014-05-22 Needs an nullFlavo [place] 3919 c927-6 [facility] 21:03:00 21:03:00 appointmen r Specialties d47-4d1 1-b l t 796-a286be Mi nn scheduled c5b4a8 2014-05-22 2014-05-22 Needs an nullFlavo [place] 0b2f f04a-7 [facility] 21:03:00 21:03:00 appointmen r Specialties b04-4f5 3-b l t 0w9-38q6tw Mi nn scheduled 74c5cf 2014-05-22 2014-05-22 Needs an nullFl[facility] [place] 1fc4 1b7e-4 [facility] 21:03:00 21:03:00 appointmen r Specialties 710-4e5 3-b l t m4t-b47622 Mi nn scheduled 5d57a2 2014-05-22 2014-05-22 Needs an nullFl[facility] [place] 8368 371c-6 [facility] 21:03:00 21:03:00 appointmen r Specialties 9t0-97u 9-8 l t 79d-bdbe69 Mi nn scheduled 8bf167 2014-05-22 2014-05-22 Needs an nullFl[facility] [place] e49a 9ad3-0 [facility] 21:03:00 21:03:00 appointmen r Specialties ed9-409 7-8 l t 32b-5li068 Mi nn scheduled a30cdd 2014-05-22 2014-05-22 Needs an nullFlavo [place] 09af d992-6 [facility] 21:03:00 21:03:00 appointmen r Specialties 53c-4b1 3-8 l t j44-ou0zg5 Mi nn scheduled 220a7e 2014-05-22 2014-05-22 Needs an nullFl[facility] [place] 7d27 dfaa-8 [facility] 21:03:00 21:03:00 appointmen r Specialties 841-43d 5-a l t l2j-481754 Mi nn scheduled 784a44 2014-05-22 2014-05-22 Needs an nullFl[facility] [place] 82bc 3107-8 [facility] 21:03:00 21:03:00 appointmen r Specialties 8ee-46b f-a l t x52-7r60e7 Mi nn scheduled b700a3 2014-05-22 2014-05-22 Needs an nullFl[facility] [place] 7f92 24b2-f [facility] 21:03:00 21:03:00 appointmen r Specialties 3j4-912 8-8 l t 1d9-zt3l08 Mi nn scheduled aed6bb 2014-05-22 2014-05-22 Needs an nullFl[facility] [place] c244 2e2b-3 [facility] 21:03:00 21:03:00 appointmen r Specialties i0z-620 3-9 l t db5-365cf4 Mi nn scheduled 44715q 2014-05-22 2014-05-22 Needs an nullFl[facility] [place] a25d 32a6-6 [facility] 21:03:00 21:03:00 appointmen r Specialties 7y8-0c6 d-a l t 00f-e3fb70 Mi nn scheduled 4c7c87 2014-05-22 2014-05-22 Needs an nullFl[facility] [place] f41f d27f-5 [facility] 21:03:00 21:03:00 appointmen r Specialties 6ef-4ed b-9 l t 56c-s57579 Im nn scheduled 23260y 2014-05-22 2014-05-22 Needs an nullFlavo [place] 1050 2359-c [facility] 21:03:00 21:03:00 appointmen r Specialties c99-40e 9-a l t 82d-963006 Mi nn scheduled 7139dd 2014-05-22 2014-05-22 Needs an nullFlavo [place] 7071 d938-7 [facility] 21:03:00 21:03:00 appointmen r Specialties 980-41b 7-9 l t 0bc-9ba3c4 Mi nn scheduled j0307q 2014-05-22 2014-05-22 Needs an nullFl[facility] [place] 1dc6 ad92-0 [facility] 21:03:00 21:03:00 appointmen r Specialties 3ba-401 9-b l t 040-19df47 Mi nn scheduled b054c4 2014-05-22 2014-05-22 Needs an nullFl[facility] [place] 3f87 0946-9 [facility] 21:03:00 21:03:00 appointmen r Specialties eb9-48c 8-8 l t ce4-1gm344 Mi nn scheduled 2e43a6 2014-05-22 2014-05-22 Needs an nullFl[facility] [place] b0d8 896b-c [facility] 21:03:00 21:03:00 appointmen r Specialties ce6-479 8-a l t 45c-431538 Mi nn scheduled 3b4374 2014-05-22 2014-05-22 Needs an nullFlavo [place] 9001 b885-7 [facility] 21:03:00 21:03:00 appointmen r Specialties 5de-4ab c-b l t 249-a63cbf Mi nn scheduled 01dbd2 2014-05-22 2014-05-22 Needs an nullFlavo [place] 15fe 6a10-e Mem[facility] 21:03:00 21:03:00 appointmen r Specialties 515-449 e-a l t 20b-j6899k Mi nn scheduled d146a8 2014-05-22 2014-05-22 Needs an nullFlavo [place] be11 189a-8 [facility] 21:03:00 21:03:00 appointmen r Specialties a68-45b e-8 l t 626-2cfbbe Mi nn scheduled 8e8b34 2014-05-22 2014-05-22 Needs an nullFlavo [place] 0db5 0d84-1 [facility] 21:03:00 21:03:00 appointmen r Specialties 18d-4b3 7-b l t z35-359e79 Mi nn scheduled 786e6c 2014-05-22 2014-05-22 Needs an nullFl[facility] [place] f3a6 e63c-f [facility] 21:03:00 21:03:00 appointmen r Specialties 112-455 8-8 l t fd3-d542a9 Mi nn scheduled 556b11 2014-05-22 2014-05-22 Needs an nullFlavo [place] 0b2f f04a-7 [facility] 21:03:00 21:03:00 appointmen r Specialties b04-4f5 3-b l t 9y7-17s2bh Mi nn scheduled 74c5cf 2014-05-22 2014-05-22 Needs an nullFlavo [place] c2f0 fef1-a [facility] 21:03:00 21:03:00 appointmen r Specialties 964-4c7 3-a l t adc-ddb303 Mi nn scheduled 16f6df 2014-05-22 2014-05-22 Needs an nullFl[facility] [place] 7d27 dfaa-8 [facility] 21:03:00 21:03:00 appointmen r Specialties 841-43d 5-a l t o2w-588291 Mi nn scheduled 784a44 2014-05-22 2014-05-22 Needs an nullFlavo [place] 09af d992-6 [facility] 21:03:00 21:03:00 appointmen r Specialties 53c-4b1 3-8 l t j95-ya3oc2 Mi nn scheduled 220a7e 2014-05-22 2014-05-22 Needs an nullFlavo [place] 3919 c927-6 [facility] 21:03:00 21:03:00 appointmen r Specialties d47-4d1 1-b l t 796-a286be Mi nn scheduled c5b4a8 2014-05-22 2014-05-22 Needs an nullFl[facility] [place] 82bc 3107-8 [facility] 21:03:00 21:03:00 appointmen r Specialties 8ee-46b f-a l t d05-5k98p6 Mi nn scheduled b700a3 2014-05-22 2014-05-22 Needs an nullFl[facility] [place] 8368 371c-6 [facility] 21:03:00 21:03:00 appointmen r Specialties 9m2-29h 9-8 l t 79d-bdbe69 Mi nn scheduled 4ek193 2014-05-22 2014-05-22 Needs an nullFl[facility] [place] 1fc4 1b7e-4 [facility] 21:03:00 21:03:00 appointmen r Specialties 710-4e5 3-b l t v0x-j81715 Mi nn scheduled 5d57a2 2014-05-22 2014-05-22 Needs an nullFl[facility] [place] e49a 9ad3-0 [facility] 21:03:00 21:03:00 appointmen r Specialties ed9-409 7-8 l t 32b-4ci531 Mi nn scheduled a30cdd 2014-05-22 2014-05-22 Needs an nullFl[facility] [place] 7f92 24b2-f [facility] 21:03:00 21:03:00 appointmen r Specialties 9z1-606 8-8 l t 0f7-ji3g89 Mi nn scheduled aed6bb 2014-05-22 2014-05-22 Needs an nullFl[facility] [place] 1dc6 ad92-0 [facility] 21:03:00 21:03:00 appointmen r Specialties 3ba-401 9-b l t 040-19df47 Mi nn scheduled b054c4 2014-05-22 2014-05-22 Needs an nullFl[facility] [place] f41f d27f-5 [facility] 21:03:00 21:03:00 appointmen r Specialties 6ef-4ed b-9 l t 56c-i61209 Mi nn scheduled 52402h 2014-05-22 2014-05-22 Needs an nullFl[facility] [place] b0d8 896b-c [facility] 21:03:00 21:03:00 appointmen r Specialties ce6-479 8-a l t 45c-303714 Mi nn scheduled 8a1442 2014-05-22 2014-05-22 Needs an nullFl[facility] [place] 1050 2359-c [facility] 21:03:00 21:03:00 appointmen r Specialties c99-40e 9-a l t 82d-328876 Mi nn scheduled 7139dd 2014-05-22 2014-05-22 Needs an nullFl[facility] [place] a25d 32a6-6 [facility] 21:03:00 21:03:00 appointmen r Specialties 4w9-3z3 d-a l t 00f-e3fb70 Mi nn scheduled 4c7c87 2014-05-22 2014-05-22 Needs an nullFl[facility] [place] 7071 d938-7 [facility] 21:03:00 21:03:00 appointmen r Specialties 980-41b 7-9 l t 0bc-9ba3c4 Mi nn scheduled e8469k 2014-05-22 2014-05-22 Needs an nullFlavo [place] be11 189a-8 [facility] 21:03:00 21:03:00 appointmen r Specialties a68-45b e-8 l t 626-2cfbbe Mi nn scheduled 8e8b34 2014-05-22 2014-05-22 Needs an nullFl[facility] [place] 9001 b885-7 [facility] 21:03:00 21:03:00 appointmen r Specialties 5de-4ab c-b l t 249-a63cbf Mi nn scheduled 01dbd2 2014-05-22 2014-05-22 Needs an nullFl[facility] [place] 3f87 0946-9 [facility] 21:03:00 21:03:00 appointmen r Specialties eb9-48c 8-8 l t ce4-8tv885 Mi nn scheduled 2e43a6 2014-05-22 2014-05-22 Needs an nullFl[facility] [place] c244 2e2b-3 [facility] 21:03:00 21:03:00 appointmen r Specialties s1x-311 3-9 l t db5-365cf4 Mi nn scheduled 65068a 2014-05-22 2014-05-22 Needs an nullFl[facility] [place] 15fe 6a10-e [facility] 21:03:00 21:03:00 appointmen r Specialties 515-449 e-a l t 20b-z6096q Mi nn scheduled d146a8 2014-05-22 2014-05-22 Needs an nullFl[facility] [place] f3a6 e63c-f [facility] 21:03:00 21:03:00 appointmen r Specialties 112-455 8-8 l t fd3-d542a9 Mi nn scheduled 556b11 2014-05-22 2014-05-22 Needs an nullFl[facility] [place] 0db5 0d84-1 [facility] 21:03:00 21:03:00 appointmen r Specialties 18d-4b3 7-b l t z43-096g72 Mi nn scheduled 786e6c 2014-05-22 2014-05-22 Needs an nullFl[facility] [place] 4a85 a3a7-4 [facility] 20:03:00 20:03:00 appointmen r Specialties 001-4eb c-a l t 4dc-m8307y Mi nn scheduled 5ee9d2 2014-05-22 2014-05-22 Needs an nullFl[facility] [place] 797b 5ffc-0 [facility] 20:03:00 20:03:00 appointmen r Specialties 158-4a7 d-9 l t y40-r49h5i Mi nn scheduled 10cfaa 2014-05-22 2014-05-22 Needs an nullFl[facility] [place] 4704 f630-d [facility] 20:03:00 20:03:00 appointmen r Specialties 47c-443 f-a l t 0x5-xq8439 Mi nn scheduled 515a31 2014-05-22 2014-05-22 Needs an nullFl[facility] [place] d226 4357-0 [facility] 20:03:00 20:03:00 appointmen r Specialties 33c-4a4 8-9 l t 7y5-1f9o10 Mi nn scheduled 4a7acb 2014-05-22 2014-05-22 Needs an nullFl[facility] [place] 626e 91b1-a [facility] 20:03:00 20:03:00 appointmen r Specialties 13d-4ee b-9 l t ab8-942df6 Mi nn scheduled 886782 7711-03-31 2014-05-22 Needs an nullFl[facility] [place] 4690 88b9-4 [facility] 20:03:00 20:03:00 appointmen r Specialties 218-446 4-b l t 697-lat380 [facility] nn scheduled ae4ec2 2014-05-22 2014-05-22 Needs an nullFl[facility] [place] 0d7d a6ab-a [facility] 20:03:00 20:03:00 appointmen r Specialties 4d8-9o1 4-b l t 857-z83461 [facility] nn scheduled a7af0f 2014-05-22 2014-05-22 Needs an nullFl[facility] [place] fab7 608f-f [facility] 20:03:00 20:03:00 appointmen r Specialties b40-440 1-8 l t fbf-e1c00a [facility] nn scheduled 992a40 2014-05-22 2014-05-22 Needs an nullFl[facility] [place] f406 f5e0-b [facility] 20:03:00 20:03:00 appointmen r Specialties b2t-539 3-b l t 67b-wf3850 Mi nn scheduled a4e056 2014-05-22 2014-05-22 Needs an nullFl[facility] [place] 9f59 c6ac-a [facility] 20:03:00 20:03:00 appointmen r Specialties 4b3-687 e-b l t g14-w115c9 Mi nn scheduled e6310m 2014-05-22 2014-05-22 Needs an nullFl[facility] [place] aae4 0588-9 [facility] 20:03:00 20:03:00 appointmen r Specialties 256-422 c-b l t 5o6-j2atjx Mi nn scheduled 1ab7a4 2014-05-22 2014-05-22 Needs an nullFl[facility] [place] 0617 69e0-6 [facility] 20:03:00 20:03:00 appointmen r Specialties 4p3-659 d-a l t 24e-4697dc Mi nn scheduled 4f9f4e 2014-05-22 2014-05-22 Needs an nullFl[facility] [place] d5d0 7981-d [facility] 20:03:00 20:03:00 appointmen r Specialties ed1-42d 4-9 l t 5fc-0399bc Mi nn scheduled 9e6ca1 2014-05-22 2014-05-22 Needs an nullFl[facility] [place] 5383 6e08-f [facility] 20:03:00 20:03:00 appointmen r Specialties 182-4ab e-b l t 16d-d930bb Mi nn scheduled 583090 1165-03-31 2014-05-22 Needs an nullFl[facility] [place] 8f56 5db7-c [facility] 20:03:00 20:03:00 appointmen r Specialties 0m1-5j6 5-b l t z56-9xo302 Mi nn scheduled a5486d 2014-05-22 2014-05-22 Needs an nullFl[facility] [place] 4bab fbe9-2 [facility] 20:03:00 20:03:00 appointmen r Specialties ec9-40a f-8 l t 87c-bb064b Mi nn scheduled f8bfaf 2014-05-22 2014-05-22 Needs an nullFl[facility] [place] 844a 1b1f-8 [facility] 20:03:00 20:03:00 appointmen r Specialties 236-40b 9-8 l t w98-877u45 Mi nn scheduled 44624q 2014-05-22 2014-05-22 Needs an nullFl[facility] [place] 728c a68e-c [facility] 20:03:00 20:03:00 appointmen r Specialties 1p2-851 f-9 l t 891-8f61c4 Mi nn scheduled 3c0fa6 2014-05-22 2014-05-22 Needs an nullFl[facility] [place] 8f88 b954-7 [facility] 20:03:00 20:03:00 appointmen r Specialties c38-4b9 f-a l t t5w-dyo5y6 Mi nn scheduled 8o0716 2014-05-22 2014-05-22 Needs an nullFl[facility] [place] 827c fe86-5 [facility] 20:03:00 20:03:00 appointmen r Specialties 0aa-4d9 4-9 l t ccb-4b6967 Mi nn scheduled ced8e4 2014-05-22 2014-05-22 Needs an nullFl[facility] [place] 57a1 6bcc-6 [facility] 20:03:00 20:03:00 appointmen r Specialties 937-4c4 7-b l t f4b-71y5j4 Mi nn scheduled 28db0d 2014-05-22 2014-05-22 Needs an nullFl[facility] [place] ff79 0083-2 [facility] 20:03:00 20:03:00 appointmen r Specialties 310-412 0-a l t 6s0-12573s Mi nn scheduled 0h9381 2014-05-22 2014-05-22 Needs an [facility]Fl[facility] [place] 6cc4 c87f-8 [facility] 20:03:00 20:03:00 appointmen r Specialties 100-419 a-b l t r7c-26zg10 Mi nn scheduled e47b1a 2014-05-22 2014-05-22 Needs an [facility]Fl[facility] [place] b06f 15a6-f [facility] 20:03:00 20:03:00 appointmen r Specialties 27f-4f6 5-8 l t db9-794e20 Mi nn scheduled h29442 2014-05-22 2014-05-22 Needs an [facility]Fl[facility] [place] 7dbe 05ad-9 [facility] 20:03:00 20:03:00 appointmen r Specialties fdf-490 5-9 l t 6x1-k37277 Mi nn scheduled 05856u 2014-05-22 2014-05-22 Needs an [facility]Fl[facility] [place] 46f2 f707-9 [facility] 20:03:00 20:03:00 appointmen r Specialties j7w-074 9-b l t 9g4-971944 Mi nn scheduled 24ea71 2014-05-22 2014-05-22 Needs an [facility]Fl[facility] [place] d226 4357-0 [facility] 20:03:00 20:03:00 appointmen r Specialties 33c-4a4 8-9 l t 5h6-0f8c03 Mi nn scheduled 4a7acb 2014-05-22 2014-05-22 Needs an [facility]Fl[facility] [place] 4a85 a3a7-4 [facility] 20:03:00 20:03:00 appointmen r Specialties 001-4eb c-a l t 4dc-b3191p [facility] nn scheduled 5ee9d2 2014-05-22 2014-05-22 Needs an nullFl[facility] [place] 626e 91b1-a [facility] 20:03:00 20:03:00 appointmen r Specialties 13d-4ee b-9 l t ab8-942df6 Mi nn scheduled 930630 1191-03-31 2014-05-22 Needs an nullFl[facility] [place] 797b 5ffc-0 [facility] 20:03:00 20:03:00 appointmen r Specialties 158-4a7 d-9 l t h98-p36r7c Mi nn scheduled 10cfaa 2014-05-22 2014-05-22 Needs an [facility]Fl[facility] [place] 4704 f630-d [facility] 20:03:00 20:03:00 appointmen r Specialties 47c-443 f-a l t 0d2-so4954 Mi nn scheduled 515a31 2014-05-22 2014-05-22 Needs an nullFl[facility] [place] 4690 88b9-4 [facility] 20:03:00 20:03:00 appointmen r Specialties 218-446 4-b l t 697-hrs236 [facility] nn scheduled ae4ec2 2014-05-22 2014-05-22 Needs an [facility]Fl[facility] [place] fab7 608f-f [facility] 20:03:00 20:03:00 appointmen r Specialties b40-440 1-8 l t fbf-e1c00a [facility] nn scheduled 992a40 2014-05-22 2014-05-22 Needs an nullFl[place] 9f59 c6ac-a [facility] 20:03:00 20:03:00 appointmen r Specialties 9k1-579 e-b l t b25-y080n3 [facility] nn scheduled a7532z 2014-05-22 2014-05-22 Needs an [place]Fl[facility] [place] f406 f5e0-b [facility] 20:03:00 20:03:00 appointmen r Specialties m7j-129 3-b l t 67b-vh9806 [facility] nn scheduled y2w440 2014-05-22 2014-05-22 Needs an nullFl[facility] [place] 0d7d a6ab-a [facility] 20:03:00 20:03:00 appointmen r Specialties 4p3-5i0 4-b l t 857-t28938 Mi nn scheduled a7af0f 2014-05-22 2014-05-22 Needs an [facility]Fl[facility] [place] d5d0 7981-d [facility] 20:03:00 20:03:00 appointmen r Specialties ed1-42d 4-9 l t 5fc-0399bc [facility] nn scheduled 9e6ca1 2014-05-22 2014-05-22 Needs an nullFl[facility] [place] 844a 1b1f-8 [facility] 20:03:00 20:03:00 appointmen r Specialties 236-40b 9-8 l t r76-344m21 [facility] nn scheduled 70173x 2014-05-22 2014-05-22 Needs an [facility]Fl[facility] [place] 4bab fbe9-2 [facility] 20:03:00 20:03:00 appointmen r Specialties ec9-40a f-8 l t 87c-sp021d [facility] nn scheduled f8bfaf 2014-05-22 2014-05-22 Needs an [facility]Fl[facility] [place] aae4 0588-9 [facility] 20:03:00 20:03:00 appointmen r Specialties 256-422 c-b l t 1f4-[id number] [facility] nn scheduled [id number] 2014-05-22 2014-05-22 Needs an nullFlavo [place] 0617 69e0-6 Memoria 20:03:00 20:03:00 appointmen r Specialties 9p6-977 d-a l t [id number] [facility] nn scheduled [id number] 2014-05-22 2014-05-22 Needs an nullFlavo [place] 728c a68e-c Memoria 20:03:00 20:03:00 appointmen r Specialties 7s7-513 f-9 l t [id number] [facility] nn scheduled [id number] 2014-05-22 2014-05-22 Needs an nullFlavo [place] 8f56 5db7-c Memoria 20:03:00 20:03:00 appointmen r Specialties 0e9-2i3 5-b l t [id number] [facility] scheduled [id number] 2014-05-22 2014-05-22 Needs an nullFlavo [place] ff79 0083-2 Memoria 20:03:00 20:03:00 appointmen r Specialties 310-412 0-a l t [id number] [facility] nn scheduled [id number] 2014-05-22 2014-05-22 Needs an nullFlavo [place] 6cc4 c87f-8 [facility] 20:03:00 20:03:00 appointmen r Specialties 100-419 a-b l t [id number] [facility] nn scheduled [id number] 2014-05-22 2014-05-22 Needs an nullFlavo [place] b06f 15a6-f Mem[facility] 20:03:00 20:03:00 appointmen r Specialties 27f-4f6 5-8 l t [id number] [facility] nn scheduled [id number] 2014-05-22 2014-05-22 Needs an nullFlavo [place] 8f88 b954-7 Memoria 20:03:00 20:03:00 appointmen r Specialties c38-4b9 f-a l t [id number] [facility] scheduled [id number] 2014-05-22 2014-05-22 Needs an nullFlavo [place] 5383 6e08-f Memoria 20:03:00 20:03:00 appointmen r Specialties 182-4ab e-b l t [id number] [facility] nn scheduled [id number] 2014-05-22 Needs an nullFlavo [place] 7dbe 05ad-9 Mem[facility] 20:03:00 20:03:00 appointmen r Specialties fdf-490 5-9 l t [id number] [facility] scheduled [id number] 2014-05-22 2014-05-22 Needs an nullFlavo [place] 827c fe86-5 Memoria 20:03:00 20:03:00 appointmen r Specialties 0aa-4d9 4-9 l t [id number] [facility] nn scheduled [id number] 2014-05-22 2014-05-22 Needs an nullFlavo [place] 57a1 6bcc-6 Mem[facility] 20:03:00 20:03:00 appointmen r Specialties 937-4c4 7-b l t [id number] Mi nn scheduled [id number] 2014-05-22 2014-05-22 Needs an nullFlavo [place] 46f2 f707-9 [facility] 20:03:00 20:03:00 appointmen r Specialties k5n-877 9-b l t [id number] Mi nn scheduled [id number] 2014-05-16 2014-05-16 Needs nullFlavo [place] 1fa90 ac6-2 [facility] 14:15:00 14:15:00 referral r Specialties fea-46c8- 8 l [id number] [facility] nn [id number] 2014-05-16 2014-05-16 Needs nullFlavo [place] [address]76 e57-b [facility] 14:15:00 14:15:00 referral r Specialties 286-4a5c- a l [id number] [facility] nn [id number] 2014-05-16 2014-05-16 Needs nullFlavo [place] e9b02 d6d-0 [facility] 14:15:00 14:15:00 referral r Specialties ffe-4c14- 8 l [id number] [facility] [id number] 2014-05-16 2014-05-16 Needs nullFlavo [place] 8b4ff a66-4 [facility]oria 14:15:00 14:15:00 referral r Specialties a6u-2e6v- b l [id number] [facility] nn [id number] 2014-05-16 2014-05-16 Needs nullFlavo [place] ce02e 9e3-5 [facility] 14:15:00 14:15:00 referral r Specialties 489-4619- 9 l [id number] [facility] nn [id number] 2014-05-16 2014-05-16 Needs nullFlavo [place] 50c81 8c7-f Memoria 14:15:00 14:15:00 referral r Specialties 762-498f- b l [id number] [facility] nn [id number] 2014-05-16 2014-05-16 Needs nullFlavo [place] 82acd b5e-0 [facility]oria 14:15:00 14:15:00 referral r Specialties cb2-4e94- a l [id number] Mi nn [id number] 2014-05-16 2014-05-16 Needs nullFlavo [place] 3d6f3 c42-3 [facility] 14:15:00 14:15:00 referral r Specialties fd4-4cc3- 8 l [id number] Mi nn [id number] 2014-05-16 2014-05-16 Needs nullFlavo [place] 628fc 378-7 Memoria 14:15:00 14:15:00 referral r Specialties 32a-45e1- 9 l [id number] Mi nn [id number] 2014-05-16 2014-05-16 Needs nullFlavo [place] 7a71c bc1-8 [facility] 14:15:00 14:15:00 referral r Specialties 4h3-5116- b l [id number] Mi nn [id number] 2014-05-16 2014-05-16 Needs nullFlavo [place] cb1ef cd6-e [facility] 14:15:00 14:15:00 referral r Specialties t4l-8sl3- 9 l [id number] Mi nn [id number] 2014-05-16 2014-05-16 Needs [facility] [place] 12c0d d14-6 [facility] 14:15:00 14:15:00 referral r Specialties 99c-4e5e- b l f1v-57jez2 Mi nn 33eab4 2014-05-16 2014-05-16 Needs [facility] [place] 12b42 c13-d [facility] 14:15:00 14:15:00 referral r Specialties u9y-4299- 9 l 5eb-d08f03 Mi nn 7818da 2014-05-16 2014-05-16 Needs [facility] [place] 28b85 ac3-f [facility] 14:15:00 14:15:00 referral r Specialties 3bc-424c- 8 l bc0-b564cc Mi nn 77q633 2014-05-16 2014-05-16 Needs [facility] [place] 2742a 3b9-c [facility] 14:15:00 14:15:00 referral r Specialties 56b-484f- 9 l 7ca-72q502 Mi nn 8167d3 2014-05-16 2014-05-16 Needs [facility] [place] 74a02 c47-0 [facility] 14:15:00 14:15:00 referral r Specialties 3p6-813x- b l 078-8f9b08 Mi nn bfad20 2014-05-16 2014-05-16 Needs [facility] [place] 505ed 2c7-1 [facility] 14:15:00 14:15:00 referral r Specialties 89d-440d- 8 l fa8-7c74db [facility] nn c68eb0 2014-05-16 2014-05-16 Needs [facility] [place] d03de 593-d [facility] 14:15:00 14:15:00 referral r Specialties 08a-44b4- a l 44d-4b9984 [facility] nn 38abaa 2014-05-16 2014-05-16 Needs [facility] [place] 07751 f64-7 [facility] 14:15:00 14:15:00 referral r Specialties 98c-410d- b l 2a7-16x845 [facility] nn 5414d2 2014-05-16 2014-05-16 Needs [facility] [place] a3a90 ee0-d [facility] 14:15:00 14:15:00 referral r Specialties 1ef-4bde- a l f0e-46f474 [facility] nn 2236bf 2014-05-16 2014-05-16 Needs [facility] [place] 0b4e4 648-8 [facility] 14:15:00 14:15:00 referral r Specialties 953-4a8a- 8 l i6p-25ql9p [facility] nn 02785k 2014-05-16 2014-05-16 Needs [facility] [place] af591 a03-1 [facility] 14:15:00 14:15:00 referral r Specialties t70-32y0- 8 l 77e-4c5c2a [facility] nn swv606 2014-05-16 2014-05-16 Needs [facility] [place] 9b80b 234-e [facility] 14:15:00 14:15:00 referral r Specialties 251-4c5f- 8 l h67-775qyq [facility] nn eb9bd7 2014-05-16 2014-05-16 Needs [facility] [place] e9b02 d6d-0 [facility] 14:15:00 14:15:00 referral r Specialties ffe-4c14- 8 l 4fd-571ed4 Mi nn a8u664 2014-05-16 2014-05-16 Needs [facility] [place] 1fa90 ac6-2 [facility] 14:15:00 14:15:00 referral r Specialties fea-46c8- 8 l 190-48i373 Mi nn bb91b5 2014-05-16 2014-05-16 Needs [facility] [place] 3d6f3 c42-3 [facility] 14:15:00 14:15:00 referral r Specialties fd4-4cc3- 8 l g1u-0t0672 Mi nn fb3e62 2014-05-16 2014-05-16 Needs [facility] [place] 82acd b5e-0 [facility] 14:15:00 14:15:00 referral r Specialties cb2-4e94- a l 7k0-jtw20o Mi nn kq4366 2014-05-16 2014-05-16 Needs [facility] [place] 57950 e57-b [facility] 14:15:00 14:15:00 referral r Specialties 286-4a5c- a l 2fe-066ecc Mi nn qi4951 2014-05-16 2014-05-16 Needs [facility] [place] 628fc 378-7 [facility] 14:15:00 14:15:00 referral r Specialties 32a-45e1- 9 l 911-0274cc Mi nn 7fccb5 2014-05-16 2014-05-16 Needs [facility] [place] ce02e 9e3-5 [facility] 14:15:00 14:15:00 referral r Specialties 489-4619- 9 l 307-657310 Mi nn 1132fb 2014-05-16 2014-05-16 Needs [facility] [place] 8b4ff a66-4 [facility] 14:15:00 14:15:00 referral r Specialties i5p-8l1u- b l ef2-9c433z Mi nn 19535d 2014-05-16 2014-05-16 Needs [facility] [place] 50c81 8c7-f [facility] 14:15:00 14:15:00 referral r Specialties 762-498f- b l 482-d39a7f Mi nn e0dba2 2014-05-16 2014-05-16 Needs [facility] [place] 7a71c bc1-8 [facility] 14:15:00 14:15:00 referral r Specialties 1t9-5333- b l y0y-765400 Mi nn 8cb13b 2014-05-16 2014-05-16 Needs [facility] [place] 74a02 c47-0 [facility] 14:15:00 14:15:00 referral r Specialties 2x8-709c- b l 078-8f9b08 Mi nn bfad20 2014-05-16 2014-05-16 Needs [facility] [place] 12b42 c13-d [facility] 14:15:00 14:15:00 referral r Specialties g3r-4947- 9 l 5eb-d08f03 Mi nn 7818da 2014-05-16 2014-05-16 Needs [facility] [place] d03de 593-d [facility] 14:15:00 14:15:00 referral r Specialties 08a-44b4- a l 44d-7z2649 Mi nn 38abaa 2014-05-16 2014-05-16 Needs [facility] [place] 28b85 ac3-f [facility] 14:15:00 14:15:00 referral r Specialties 3bc-424c- 8 l bc0-b564cc Mi nn 52u864 2014-05-16 2014-05-16 Needs [facility] [place] 12c0d d14-6 [facility] 14:15:00 14:15:00 referral r Specialties 99c-4e5e- b l h0z-93lyj6 Mi nn 33eab4 2014-05-16 2014-05-16 Needs [facility] [place] 2742a 3b9-c [facility] 14:15:00 14:15:00 referral r Specialties 56b-484f- 9 l 7ca-37g416 Mi nn 8167d3 2014-05-16 2014-05-16 Needs [facility] [place] 0b4e4 648-8 [facility] 14:15:00 14:15:00 referral r Specialties 953-4a8a- 8 l l7m-16qu1x Mi nn 21784y 2014-05-16 2014-05-16 Needs [facility] [place] 99080 f64-7 [facility] 14:15:00 14:15:00 referral r Specialties 98c-410d- b l 4f6-14c329 Mi nn 5414d2 2014-05-16 2014-05-16 Needs [facility] [place] 505ed 2c7-1 [facility] 14:15:00 14:15:00 referral r Specialties 89d-440d- 8 l fa8-7c74db Mi nn c68eb0 2014-05-16 2014-05-16 Needs [facility] [place] cb1ef cd6-e [facility] 14:15:00 14:15:00 referral r Specialties q3x-0ac9- 9 l 704-aa5bfd Mi nn 92z156 2014-05-16 2014-05-16 Needs [facility] [place] a3a90 ee0-d [facility] 14:15:00 14:15:00 referral r Specialties 1ef-4bde- a l r8i-27s082 Mi nn 2236bf 2014-05-16 2014-05-16 Needs [facility] [place] 9b80b 234-e [facility] 14:15:00 14:15:00 referral r Specialties 251-4c5f- 8 l l38-979zpp Mi nn eb9bd7 2014-05-16 2014-05-16 Needs [facility] [place] af591 a03-1 [facility] 14:15:00 14:15:00 referral r Specialties m12-09y6- 8 l 77e-4c5c2a Mi nn xqq385 2014-05-16 2014-05-16 Needs [facility] [place] f3a4d f4f-6 [facility] 13:15:00 13:15:00 referral r Specialties 5n2-32ax- b l 8bb-52dbb1 Mi nn b79b7b 2014-05-16 2014-05-16 Needs [facility] [place] c4892 465-6 [facility] 13:15:00 13:15:00 referral r Specialties fc7-4370- b l 0n5-ccm9cc Mi nn cc39b8 2014-05-16 2014-05-16 Needs [facility] [place] 2ce47 103-5 [facility] 13:15:00 13:15:00 referral r Specialties 2o7-9iq7- 9 l 0l9-gu9a57 Mi nn aa67bd 2014-05-16 2014-05-16 Needs [facility] [place] 604e3 5de-b [facility] 13:15:00 13:15:00 referral r Specialties 1p9-9253- 9 l bc8-03f16f Mi nn f9e19e 2014-05-16 2014-05-16 Needs [facility] [place] 68ec2 3d2-f [facility] 13:15:00 13:15:00 referral r Specialties 7o2-48gq- 9 l ca1-4edadf Mi nn 828240 4528-03-25 2014-05-16 Needs [facility] [place] ecbc4 511-5 [facility] 13:15:00 13:15:00 referral r Specialties 801-4d86- b l df7-9jn511 Mi nn e63cce 2014-05-16 2014-05-16 Needs [facility] [place] 10a2e 0e8-f [facility] 13:15:00 13:15:00 referral r Specialties 958-4d7d- b l 5e6-1jvu88 Mi nn 37f5f0 2014-05-16 2014-05-16 Needs [facility] [place] a743a 274-9 [facility] 13:15:00 13:15:00 referral r Specialties 90f-4092- 8 l 93c-26e5d8 Mi nn ng593b 2014-05-16 2014-05-16 Needs [facility] [place] 171fd e57-4 [facility] 13:15:00 13:15:00 referral r Specialties cad-499b- 9 l 1fd-82e1a4 Mi nn d78fcf 2014-05-16 2014-05-16 Needs [facility] [place] fea7b 517-e [facility] 13:15:00 13:15:00 referral r Specialties ec6-4924- 9 l 2w3-hk1a44 Mi nn 9e75f6 2014-05-16 2014-05-16 Needs [facility] [place] 45b4b 79c-2 [facility] 13:15:00 13:15:00 referral r Specialties ae9-48ca- 9 l h27-8m5805 Mi nn 1c7958 2014-05-16 2014-05-16 Needs [facility] [place] d160a 629-9 [facility] 13:15:00 13:15:00 referral r Specialties 5da-4267- 9 l 330-71aaa9 Mi nn 191bc9 2014-05-16 2014-05-16 Needs [facility] [place] c852c a3e-8 [facility] 13:15:00 13:15:00 referral r Specialties p3p-231a- a l dcd-16683d Mi nn v8i813 2014-05-16 2014-05-16 Needs [facility] [place] 88c45 ffa-e [facility] 13:15:00 13:15:00 referral r Specialties bf2-4d28- 8 l 8p4-sklyuy Mi nn 7e59e5 2014-05-16 2014-05-16 Needs [facility] [place] 69ceb 017-7 [facility] 13:15:00 13:15:00 referral r Specialties dc5-4bc2- b l 68c-61b6e9 Mi nn d722d1 2014-05-16 2014-05-16 Needs [facility] [place] 9075e 01a-3 [facility] 13:15:00 13:15:00 referral r Specialties 14b-40d3- b l f14-17341x Mi nn 860810 9694-03-25 2014-05-16 Needs [facility] [place] 84db7 f44-b [facility] 13:15:00 13:15:00 referral r Specialties 0u7-4871- 8 l h36-d71452 Mi nn 3ccff9 2014-05-16 2014-05-16 Needs [facility] [place] 5e2cb 09e-7 [facility] 13:15:00 13:15:00 referral r Specialties 839-4585- 9 l 769-438ca4 Mi nn ae6e2e 2014-05-16 2014-05-16 Needs [facility] [place] 0329f 494-3 [facility] 13:15:00 13:15:00 referral r Specialties ebb-4553- 8 l 9u6-40sr77 Mi nn 073120 8853-03-25 2014-05-16 Needs [facility] [place] aae22 d13-2 [facility] 13:15:00 13:15:00 referral r Specialties 774-4072- 8 l 0ad-aece6b Mi nn f997a7 2014-05-16 2014-05-16 Needs [facility] [place] 52d4d d17-6 [facility] 13:15:00 13:15:00 referral r Specialties 5aa-4a2d- b l v40-224818 Mi nn 7bff6e 2014-05-16 2014-05-16 Needs [facility] [place] ab8d1 efc-7 [facility] 13:15:00 13:15:00 referral r Specialties m96-2666- b l g97-v1fs59 Mi nn 8496a5 2014-05-16 2014-05-16 Needs [facility] [place] 32f5b b87-5 [facility] 13:15:00 13:15:00 referral r Specialties y79-44dy- a l 1z1-r53u22 Mi nn 462e6c 2014-05-16 2014-05-16 Needs [facility] [place] 74691 629-b [facility] 13:15:00 13:15:00 referral r Specialties 0s1-4q1t- 9 l 76a-553a8c Mi nn 45t670 2014-05-16 2014-05-16 Needs [facility] [place] 17440 492-3 [facility] 13:15:00 13:15:00 referral r Specialties 9u7-99r3- a l b3e-2c8x9u Mi nn 2cb1e5 2014-05-16 2014-05-16 Needs [facility] [place] 2d5e3 dd6-1 [facility] 13:15:00 13:15:00 referral r Specialties 42a-48c1- 8 l -63e1ff Mi nn g1453t 2014-05-16 2014-05-16 Needs [facility] [place] 17998 740-7 Mem[facility] 13:15:00 13:15:00 referral r Specialties 9o4-6h27- b l 896-ca1c48 Mi nn 18s899 2014-05-16 2014-05-16 Needs [facility] [place] 68ec2 3d2-f [facility] 13:15:00 13:15:00 referral r Specialties 2v1-70ty- 9 l ca1-4edadf Mi nn 681555 2790-03-25 2014-05-16 Needs [facility] [place] f3a4d f4f-6 [facility] 13:15:00 13:15:00 referral r Specialties 2i9-36fa- b l 8bb-52dbb1 Mi nn b79b7b 2014-05-16 2014-05-16 Needs [facility] [place] ecbc4 511-5 [facility] 13:15:00 13:15:00 referral r Specialties 801-4d86- b l df7-2yx284 Mi nn e63cce 2014-05-16 2014-05-16 Needs [facility] [place] c4892 465-6 [facility] 13:15:00 13:15:00 referral r Specialties fc7-4370- b l 6x3-lhd2nv Mi nn cc39b8 2014-05-16 2014-05-16 Needs [facility] [place] 2ce47 103-5 [facility] 13:15:00 13:15:00 referral r Specialties 0j4-5px3- 9 l 9v4-xh8j67 Mi nn aa67bd 2014-05-16 2014-05-16 Needs [facility] [place] 604e3 5de-b [facility] 13:15:00 13:15:00 referral r Specialties 6h6-1078- 9 l bc8-03f16f Mi nn f9e19e 2014-05-16 2014-05-16 Needs [facility] [place] 10a2e 0e8-f [facility] 13:15:00 13:15:00 referral r Specialties 958-4d7d- b l 6l7-3xzt42 Mi nn 37f5f0 2014-05-16 2014-05-16 Needs [facility] [place] 171fd e57-4 [facility] 13:15:00 13:15:00 referral r Specialties cad-499b- 9 l 1fd-82e1a4 Mi nn d78fcf 2014-05-16 2014-05-16 Needs [facility] [place] 45b4b 79c-2 [facility] 13:15:00 13:15:00 referral r Specialties ae9-48ca- 9 l j75-3x8792 Mi nn 8t1999 2014-05-16 2014-05-16 Needs [facility] [place] fea7b 517-e [facility] 13:15:00 13:15:00 referral r Specialties ec6-4924- 9 l 7r3-ya6w08 Mi nn 9e75f6 2014-05-16 2014-05-16 Needs [facility] [place] a743a 274-9 [facility] 13:15:00 13:15:00 referral r Specialties 90f-4092- 8 l 93c-26e5d8 Mi nn iu638n 2014-05-16 2014-05-16 Needs [facility] [place] 88c45 ffa-e [facility] 13:15:00 13:15:00 referral r Specialties bf2-4d28- 8 l 8i6-xdeaqz Mi nn 7e59e5 2014-05-16 2014-05-16 Needs [facility] [place] 5e2cb 09e-7 [facility] 13:15:00 13:15:00 referral r Specialties 839-4585- 9 l 769-438ca4 Mi nn ae6e2e 2014-05-16 2014-05-16 Needs [facility] [place] 84db7 f44-b [facility] 13:15:00 13:15:00 referral r Specialties 7t8-8235- 8 l c54-v35613 Mi nn 3ccff9 2014-05-16 2014-05-16 Needs [facility] [place] d160a 629-9 [facility] 13:15:00 13:15:00 referral r Specialties 5da-4267- 9 l 330-71aaa9 Mi nn 191bc9 2014-05-16 2014-05-16 Needs [facility] [place] c852c a3e-8 [facility] 13:15:00 13:15:00 referral r Specialties i6f-087j- a l dcd-68276q Mi nn w3a674 2014-05-16 2014-05-16 Needs [facility] [place] 0329f 494-3 [facility] 13:15:00 13:15:00 referral r Specialties ebb-4553- 8 l 4d3-84pn84 Mi nn 300662 7162-03-25 2014-05-16 Needs [facility] [place] 9075e 01a-3 [facility] 13:15:00 13:15:00 referral r Specialties 14b-40d3- b l l85-88181z Mi nn 547166 1282-03-25 2014-05-16 Needs [facility] [place] 32f5b b87-5 [facility] 13:15:00 13:15:00 referral r Specialties x44-65xw- a l 0e8-o11u95 Mi nn 462e6c 2014-05-16 2014-05-16 Needs [facility] [place] 83626 629-b [facility] 13:15:00 13:15:00 referral r Specialties 6n0-2h6f- 9 l 76a-553a8c Mi nn 11u825 2014-05-16 2014-05-16 Needs [facility] [place] 51247 492-3 [facility] 13:15:00 13:15:00 referral r Specialties 8t2-04j3- a l t1g-0o6a3y Mi nn 2cb1e5 2014-05-16 2014-05-16 Needs [facility] [place] aae22 d13-2 [facility] 13:15:00 13:15:00 referral r Specialties 774-4072- 8 l 0ad-aece6b Mi nn f997a7 2014-05-16 2014-05-16 Needs [facility] [place] 69ceb 017-7 [facility] 13:15:00 13:15:00 referral r Specialties dc5-4bc2- b l 68c-61b6e9 Mi nn d722d1 2014-05-16 2014-05-16 Needs [facility] [place] 2d5e3 dd6-1 [facility] 13:15:00 13:15:00 referral r Specialties 42a-48c1- 8 l -63e1ff Mi nn t8727f 2014-05-16 2014-05-16 Needs [facility] [place] 52d4d d17-6 [facility] 13:15:00 13:15:00 referral r Specialties 5aa-4a2d- b l h56-685145 Mi nn 7bff6e 2014-05-16 2014-05-16 Needs [facility] [place] ab8d1 efc-7 [facility] 13:15:00 13:15:00 referral r Specialties a68-1377- b l b76-s7mc48 Mi nn 8496a5 2014-05-16 2014-05-16 Needs [facility] [place] 52861 740-7 [facility] 13:15:00 13:15:00 referral r Specialties 8q4-1l01- b l 896-ca1c48 Mi nn 99p876 2014-05-16 2014-05-16 [facility] [place] 3032 32 [facility]Clinic 08:15:00 08:15:00 [facility] 2014-05-14 2014-05-14 Appt-UTLM [facility] [place] 95a zj3qs-r [facility] 22:49:00 22:49:00 05/16 r Specialties 287-4389-8 l 85a-3377dd Mi nn 0b0bca 2014-05-14 2014-05-14 Appt-UTLM [facility] [place] 367 v7f79-l Mem[facility] 22:49:00 22:49:00 05/16 r Specialties cb1-488b-9 l j65-78o7g3 Mi nn b222e7 2014-05-14 2014-05-14 Appt-UTLM [facility] [place] 18a b4b9v-b [facility] 22:49:00 22:49:00 05/16 r Specialties 57b-49bd-a l 8b9-7g5cy2 Mi nn 786cd2 2014-05-14 2014-05-14 Appt-UTLM [facility] [place] 1ca f9s11-9 Mem[facility] 22:49:00 22:49:00 05/16 r Specialties faa-4941-9 l 603-7d4a4f Mi nn dbcd61 2014-05-14 2014-05-14 Appt-UTLM [facility] [place] 33c 5h6kz-0 [facility] 22:49:00 22:49:00 05/16 r Specialties 8j1-2f85-n l 6l4-1c28gj Mi nn j48640 2014-05-14 2014-05-14 Appt-UTLM [facility] [place] b5c 602ad-3 [facility] 22:49:00 22:49:00 05/16 r Specialties m07-8rxf-1 l 54a-ae20f6 Mi nn c941fb 2014-05-14 2014-05-14 Appt-UTLM [facility] [place] 7be 081fa-b Mem[facility] 22:49:00 22:49:00 05/16 r Specialties 540-4656-9 l aa4-ffb45a Mi nn 78edb4 2014-05-14 2014-05-14 Appt-UTLM [facility] [place] 232 8f58t-i [facility] 22:49:00 22:49:00 05/16 r Specialties 1ed-4362-9 l 122-e73e3d Mi nn 44d67e 2014-05-14 2014-05-14 Appt-UTLM [facility] [place] 3b9 wb441-a [facility] 22:49:00 22:49:00 05/16 r Specialties 31a-4dbf-a l 865-20ab95 Mi nn b577cd 2014-05-14 2014-05-14 Appt-UTLM [facility] [place] bf6 b07w9-f [facility] 22:49:00 22:49:00 05/16 r Specialties 202-467a-b l 02b-bb62f9 Mi nn a111a8 2014-05-14 2014-05-14 Appt-UTLM [facility] [place] b67 5nv22-4 Mem[facility] 22:49:00 22:49:00 05/16 r Specialties 958-450e-9 l q5x-7h395n Mi nn 7fcccb 2014-05-14 2014-05-14 Appt-UTLM [facility] [place] 445 3k12n-6 [facility] 22:49:00 22:49:00 05/16 r Specialties 975-4dfe-b l 938-dbcd49 Mi nn 9fd4e3 2014-05-14 2014-05-14 Appt-UTLM [facility] [place] 85d 67v58-7 Mem[facility] 22:49:00 22:49:00 05/16 r Specialties 3h5-9oon-u l 948-4820b8 Mi nn 5ea0c2 2014-05-14 2014-05-14 Appt-UTLM [facility] [place] 4b1 7mg70-2 [facility] 22:49:00 22:49:00 05/16 r Specialties 461-40bf-b l 406-b657a6 Mi nn 7deb8f 2014-05-14 2014-05-14 Appt-UTLM [facility] [place] a0e 53w7n-2 [facility] 22:49:00 22:49:00 05/16 r Specialties 03e-447b-9 l 811-13e68a Mi nn 1zq798 2014-05-14 2014-05-14 Appt-UTLM [facility] [place] 6d0 2d7pj-4 [facility] 22:49:00 22:49:00 05/16 r Specialties 5cb-4ea2-a l 641-30b77c Mi nn 66c39c 2014-05-14 2014-05-14 Appt-UTLM [facility] [place] c4e 41589-y [facility] 22:49:00 22:49:00 05/16 r Specialties 050-4fb6-9 l 602-2ig528 Mi nn 0d0abe 2014-05-14 2014-05-14 Appt-UTLM [facility] [place] 550 c6r0q-3 Memoria 22:49:00 22:49:00 05/16 r Specialties 1db-4f9b-a l d02-1k7772 Mi nn 9723b1 2014-05-14 2014-05-14 Appt-UTLM [facility] [place] 967 aba29-b Memoria 22:49:00 22:49:00 05/16 r Specialties 4b8-6407-4 l 253-15bfdc Mi nn 150760 5290-03-23 2014-05-14 Appt-UTLM [facility] [place] 675 6db88-4 [facility]oria 22:49:00 22:49:00 05/16 r Specialties 184-4c3d-a l l39-i4365c Mi nn 4e228g 2014-05-14 2014-05-14 Appt-UTLM [facility] [place] e22 10016-7 [facility] 22:49:00 22:49:00 05/16 r Specialties 508-48bf-9 l 9ae-d36b8c Mi nn d39a07 2014-05-14 2014-05-14 Appt-UTLM [facility] [place] 7da pl84z-i [facility] 22:49:00 22:49:00 05/16 r Specialties dc9-4e53-9 l 50c-75439g Mi nn 463e1b 2014-05-14 2014-05-14 Appt-UTLM [facility] [place] 624 5d8z4-z [facility] 22:49:00 22:49:00 05/16 r Specialties 29f-461f-a l 2u7-3e8090 Mi nn b071af 2014-05-14 2014-05-14 Appt-UTLM [facility] [place] 18a o2s8f-j [facility] 22:49:00 22:49:00 05/16 r Specialties 57b-49bd-a l 0o8-4z9wy5 Mi nn 786cd2 2014-05-14 2014-05-14 Appt-UTLM [facility] [place] 95a mp2hy-l [facility] 22:49:00 22:49:00 05/16 r Specialties 287-4389-8 l 85a-3377dd Mi nn 0b0bca 2014-05-14 2014-05-14 Appt-UTLM [facility] [place] 232 7d58u-h [facility] 22:49:00 22:49:00 05/16 r Specialties 1ed-4362-9 l 122-e73e3d Mi nn 44d67e 2014-05-14 2014-05-14 Appt-UTLM [facility] [place] 7be 081fa-b [facility]oria 22:49:00 22:49:00 05/16 r Specialties 540-4656-9 l aa4-ffb45a Mi nn 78edb4 2014-05-14 2014-05-14 Appt-UTLM [facility] [place] 367 c8e79-v [facility] 22:49:00 22:49:00 05/16 r Specialties cb1-488b-9 l q28-82s9z8 Mi nn b222e7 2014-05-14 2014-05-14 Appt-UTLM [facility] [place] 3b9 wv749-s [facility] 22:49:00 22:49:00 05/16 r Specialties 31a-4dbf-a l 865-20ab95 Mi nn b577cd 2014-05-14 2014-05-14 Appt-UTLM [facility] [place] 33c 5d9ys-5 [facility] 22:49:00 22:49:00 05/16 r Specialties 6d3-1i54-r l 0v4-7t75el Mi nn w42064 2014-05-14 2014-05-14 Appt-UTLM [facility] [place] 1ca v7m95-0 [facility] 22:49:00 22:49:00 05/16 r Specialties faa-4941-9 l 603-7d4a4f Mi nn dbcd61 2014-05-14 2014-05-14 Appt-UTLM [facility] [place] b5c 602ad-3 [facility] 22:49:00 22:49:00 05/16 r Specialties v81-7lys-9 l 54a-ae20f6 Mi nn c941fb 2014-05-14 2014-05-14 Appt-UTLM [facility] [place] bf6 t05i5-d [facility] 22:49:00 22:49:00 05/16 r Specialties 202-467a-b l 02b-bb62f9 Mi nn a111a8 2014-05-14 2014-05-14 Appt-UTLM [facility] [place] 6d0 2b7qw-1 [facility] 22:49:00 22:49:00 05/16 r Specialties 5cb-4ea2-a l 641-30b77c Mi nn 66c39c 2014-05-14 2014-05-14 Appt-UTLM [facility] [place] 85d 04y01-1 [facility] 22:49:00 22:49:00 05/16 r Specialties 4t1-1rvz-k l 948-4820b8 Mi nn 5ea0c2 2014-05-14 2014-05-14 Appt-UTLM [facility] [place] 550 u1u6m-3 [facility] 22:49:00 22:49:00 05/16 r Specialties 1db-4f9b-a l y62-6g2657 Mi nn 9723b1 2014-05-14 2014-05-14 Appt-UTLM [facility] [place] 4b1 3ys95-3 [facility] 22:49:00 22:49:00 05/16 r Specialties 461-40bf-b l 406-b657a6 Mi nn 7deb8f 2014-05-14 2014-05-14 [facility] [place] 445 5n43u-1 [facility] 22:49:00 22:49:00 05/16 r Specialties 975-4dfe-b l 938-dbcd49 Mi nn 9fd4e3 2014-05-14 2014-05-14 [facility] [place] a0e 16p4w-9 [facility] 22:49:00 22:49:00 05/16 r Specialties 03e-447b-9 l 811-13e68a Mi nn [id number] 2014-05-14 2014-05-14 [facility] [place] e22 00366-0 [facility] 22:49:00 22:49:00 05/16 r Specialties 508-48bf-9 l 9ae-d36b8c Mi nn d39a07 2014-05-14 2014-05-14 [facility] [place] 967 aba29-b [facility] 22:49:00 22:49:00 05/16 r Specialties 6k9-7509-7 l 253-15bfdc Mi nn [id number] 4622-03-23 2014-05-14 [facility] [place] c4e 92057-j [facility] 22:49:00 22:49:00 05/16 r Specialties 050-4fb6-9 l 602-5ki382 Mi nn 0d0abe 2014-05-14 2014-05-14 [facility] [place] b67 2pk27-0 [facility] 22:49:00 22:49:00 05/16 r Specialties 958-450e-9 l o2c-4r900u Mi nn 7fcccb 2014-05-14 2014-05-14 [facility] [place] 675 9xq84-5 [facility] 22:49:00 22:49:00 05/16 r Specialties 184-4c3d-a l y95-h2489k Mi nn 7w885g 2014-05-14 2014-05-14 [facility] [place] 624 6r3j3-n [facility] 22:49:00 22:49:00 05/16 r Specialties 29f-461f-a l 4f5-3h1971 Mi nn b071af 2014-05-14 2014-05-14 [facility] [place] 7da uf84r-p [facility] 22:49:00 22:49:00 05/16 r Specialties dc9-4e53-9 l 50c-50240d Mi nn 463e1b 2014-05-14 2014-05-14 [facility] [place] 225 081fb-9 [facility] 21:49:00 21:49:00 05/16 r Specialties 4b6-437j-d l 4t6-678q1e [facility] nn 6s0502 2014-05-14 2014-05-14 Appt-[facility]LM [facility] [place] 866 fecbf-8 [facility] 21:49:00 21:49:00 05/16 r Specialties 9df-41a7-a l 869-389664 [facility] nn da05c9 2014-05-14 2014-05-14 Appt[facility] [place] afe 53a17-3 [facility] 21:49:00 21:49:00 05/16 r Specialties 1g6-30nx-w l 1d2-2or3kj [facility] nn [id number] 2014-05-14 2014-05-14 Appt-[facility]LM [facility] [place] 0e2 kl202-e [facility] 21:49:00 21:49:00 05/16 r Specialties 9r8-3jl1-5 l 81b-0q4439 [facility] nn d7ac5b 2014-05-14 2014-05-14 Appt-[facility]LM [facility] [place] 0fc i3745-5 [facility] 21:49:00 21:49:00 05/16 r Specialties 293-49e5-b l d92-x961x8 [facility] nn 55484m 2014-05-14 2014-05-14 Appt-[facility]LM [facility] [place] 215 k7x37-e [facility] 21:49:00 21:49:00 05/16 r Specialties 7ee-4e01-a l 813-de9e10 [facility] nn 775202 8781-03-23 2014-05-14 Appt-[facility]LM [facility] [place] 823 9tx1v-t [facility] 21:49:00 21:49:00 05/16 r Specialties 56c-49f2-9 l m94-v8iv78 [facility] nn [id number] 8432-03-23 2014-05-14 Appt-[facility]LM [facility] [place] d50 094ef-8 [facility] 21:49:00 21:49:00 05/16 r Specialties t0x-2p56-0 l 4x8-t07gp1 Mi nn 428620 9867-03-23 2014-05-14 Appt-[facility]LM [facility] [place] 17e n04h0-7 [facility] 21:49:00 21:49:00 05/16 r Specialties j58-66tx-j l 6ac-5271f1 Mi nn fz5999 2014-05-14 2014-05-14 Appt[facility] [place] 533 9450c-5 [facility] 21:49:00 21:49:00 05/16 r Specialties f3u-300g-8 l 67a-1d1f89 Mi nn [id number] 0420-03-23 2014-05-14 Appt-[facility] [place] 77d 44040-3 [facility] 21:49:00 21:49:00 05/16 r Specialties 7l7-511h-a l z03-2p2fn3 Mi nn 78ba65 2014-05-14 2014-05-14 Appt[facility] [place] 5f7 80b8t-h [facility] 21:49:00 21:49:00 05/16 r Specialties a80-0181-h l 32a-05e1ff Mi nn 81be0d 2014-05-14 2014-05-14 Appt-[facility]LM [facility] [place] 551 lf5z4-9 [facility] 21:49:00 21:49:00 05/16 r Specialties 1k6-9lf8-v l 8l7-saw88a [facility] nn na003c 2014-05-14 2014-05-14 Appt-UTLM [facility] [place] 93d 28qx7-0 [facility] 21:49:00 21:49:00 05/16 r Specialties l95-9380-e l 51b-f9c2c5 Mi nn 03ec37 2014-05-14 2014-05-14 Appt[facility] [place] 7f6 c362k-5 [facility] 21:49:00 21:49:00 05/16 r Specialties 423-4b88-a l m20-9c832h Mi nn 34958y 2014-05-14 2014-05-14 Appt[facility]LM [facility] [place] afd 230ff-f [facility] 21:49:00 21:49:00 05/16 r Specialties cfb-4b04-8 l 8a5-o94hd4 Mi nn [id number] 2014-05-14 2014-05-14 Appt-[facility]LM [facility] [place] 028 73216-0 [facility] 21:49:00 21:49:00 05/16 r Specialties 2r6-8n1i-m l l62-57x220 Mi nn b6b13a 2014-05-14 2014-05-14 [facility] [place] 864 j52ua-z [facility] 21:49:00 21:49:00 05/16 r Specialties 8d3-9v22-z l ac9-pp1821 Mi nn 3c87c8 2014-05-14 2014-05-14 [facility] [place] 733 28v2a-n [facility] 21:49:00 21:49:00 05/16 r Specialties 79b-4471-9 l ab2-a7a2de Mi nn c4c97f 2014-05-14 2014-05-14 Appt-[facility]LM [facility] [place] 2d7 241ac-2 [facility] 21:49:00 21:49:00 05/16 r Specialties 7g4-8432-k l 543-9x1578 Mi nn 659f05 2014-05-14 2014-05-14 Appt-[facility] [place] 479 84k49-p [facility] 21:49:00 21:49:00 05/16 r Specialties 9f7-3247-g l 677-2p737l Mi nn [id number] 1761-03-23 2014-05-14 Appt-[facility]LM [facility] [place] 060 u049h-b [facility] 21:49:00 21:49:00 05/16 r Specialties o71-36f0-3 l 917-977485 Mi nn 75533w 2014-05-14 2014-05-14 Appt-[facility]LM [facility] [place] 3ee z1hm9-0 [facility] 21:49:00 21:49:00 05/16 r Specialties f6x-0x9y-x l 6a9-l7d6j2 Mi nn j8576g 2014-05-14 2014-05-14 Appt-[facility]LM [facility] [place] 67c gx276-e [facility] 21:49:00 21:49:00 05/16 r Specialties s17-4w3j-h l k8l-2065jp Mi nn 0o453h 2014-05-14 2014-05-14 Appt-UT [facility] [place] 4[place] t73ma-0 [facility] 21:49:00 21:49:00 05/16 r Specialties i22-5346-1 l 40d-g2w120 Mi nn 3fdb76 2014-05-14 2014-05-14 Appt-UT [facility]Fl[facility] [place] ec5 205c7-q [facility] 21:49:00 21:49:00 05/16 r Specialties fcb-4745-b l 92c-b0e4fd Mi nn 6ceb22 2014-05-14 2014-05-14 Appt-UT [facility] [place] 0e2 ta223-o [facility] 21:49:00 21:49:00 05/16 r Specialties 1y7-3ko5-2 l 81b-1v7993 Mi nn d7ac5b 2014-05-14 2014-05-14 Appt-UT [facility] [place] 225 081fb-9 [facility] 21:49:00 21:49:00 05/16 r Specialties 9z7-427i-o l 1y5-970j0x Mi nn 2y8473 2014-05-14 2014-05-14 Appt-UT [facility] [place] 0fc p5903-1 [facility] 21:49:00 21:49:00 05/16 r Specialties 293-49e5-b l a45-s683z2 Mi nn 67552y 2014-05-14 2014-05-14 Appt-UT [facility] [place] 866 fecbf-8 [facility] 21:49:00 21:49:00 05/16 r Specialties 9df-41a7-a l 869-419952 Mi nn da05c9 2014-05-14 2014-05-14 Appt-UT [facility] [place] afe 20k97-7 [facility] 21:49:00 21:49:00 05/16 r Specialties 4p5-34fr-k l 4b4-6hn1cy Mi nn 3pd257 2014-05-14 2014-05-14 Appt-UTLM [facility] [place] 215 o1i59-o [facility] 21:49:00 21:49:00 05/16 r Specialties 7ee-4e01-a l 813-de9e10 Mi nn 201528 8412-03-23 2014-05-14 Appt-UTLM null[facility] [place] d50 094ef-8 [facility] 21:49:00 21:49:00 05/16 r Specialties u9e-9r44-5 l 0f3-z22fy8 Mi nn 879387 2504-03-23 2014-05-14 Appt-UTLM [facility] [place] 533 9450c-5 [facility] 21:49:00 21:49:00 05/16 r Specialties h1d-086o-8 l 67a-1d1f89 [facility] nn 804924 8640-03-23 2014-05-14 Appt-UTLM null[facility] [place] 17e z68g5-4 [facility] 21:49:00 21:49:00 05/16 r Specialties l18-46xh-a l 6ac-5271f1 [facility] nn fy4085 2014-05-14 2014-05-14 Appt-UTLM null[facility] [place] 823 2zk3x-j [facility] 21:49:00 21:49:00 05/16 r Specialties 56c-49f2-9 l x86-u1sc73 [facility] nn 568036 8878-03-23 2014-05-14 Appt-UTLM null[facility] [place] 551 lb5f7-5 [facility] 21:49:00 21:49:00 05/16 r Specialties 5o3-4rr5-n l 8t4-pmv75t [facility] nn cd236e 2014-05-14 2014-05-14 Appt-UTLM null[facility] [place] 028 51922-5 Mem[facility] 21:49:00 21:49:00 05/16 r Specialties 2r7-7j1a-p l c19-94t602 Mi nn b6b13a 2014-05-14 2014-05-14 Appt-UTLM null[facility] [place] afd 230ff-f [facility] 21:49:00 21:49:00 05/16 r Specialties cfb-4b04-8 l 7e3-a52af8 [facility] nn 38u520 2014-05-14 2014-05-14 Appt-UTLM null[facility] [place] 77d 02720-1 [facility] 21:49:00 21:49:00 05/16 r Specialties 4o2-342a-k l v18-0t5iy6 Mi nn 78ba65 2014-05-14 2014-05-14 Appt-UTLM null[facility] [place] 5f7 20j9x-r [facility] 21:49:00 21:49:00 05/16 r Specialties b61-5189-s l 32a-05e1ff [facility] nn 81be0d 2014-05-14 2014-05-14 Appt-UTLM null[facility] [place] 864 v25jw-j [facility] 21:49:00 21:49:00 05/16 r Specialties 9c3-1v88-y l ac9-we2948 [facility] nn 3c87c8 2014-05-14 2014-05-14 Appt-UTLM [facility] [place] 7f6 d986b-3 [facility] 21:49:00 21:49:00 05/16 r Specialties 423-4b88-a l n06-2p194d [facility] nn 99898b 2014-05-14 2014-05-14 Appt-UTLM null[facility] [place] 060 j969m-x [facility] 21:49:00 21:49:00 05/16 r Specialties i63-37x5-4 l 917-878933 [facility] nn 77191c 2014-05-14 2014-05-14 Appt-UTLM null[facility] [place] 3ee u6en6-5 [facility] 21:49:00 21:49:00 05/16 r Specialties q8x-1f8q-h l 6q6-r2q8k0 [facility] nn h3019f 2014-05-14 2014-05-14 Appt-UTLM null[facility] [place] 67c ko148-f [facility] 21:49:00 21:49:00 05/16 r Specialties k17-9r8b-a l y9g-6389ve [facility] nn 5e248t 2014-05-14 2014-05-14 Appt-UTLM null[facility] [place] 733 30q7w-a [facility] 21:49:00 21:49:00 05/16 r Specialties 79b-4471-9 l ab2-a7a2de Mi nn c4c97f 2014-05-14 2014-05-14 Appt-UTLM null[facility] [place] 93d 38cd3-6 [facility] 21:49:00 21:49:00 05/16 r Specialties c66-4433-m l 51b-f9c2c5 Mi nn 03ec37 2014-05-14 2014-05-14 Appt-UTLM null[facility] [place] 4ec p86nh-8 [facility] 21:49:00 21:49:00 05/16 r Specialties m61-0067-8 l 40d-u3a398 Mi nn 3fdb76 2014-05-14 2014-05-14 Appt-UTLM null[facility] [place] 2d7 241ac-2 [facility] 21:49:00 21:49:00 05/16 r Specialties 9u4-6413-y l 543-5m0644 Mi nn 659f05 2014-05-14 2014-05-14 Appt-UTLM [facility] [place] 479 88r49-w [facility] 21:49:00 21:49:00 05/16 r Specialties 0y0-1756-j l 677-2w951r Mi nn 084355 5055-03-23 2014-05-14 Appt-UTLM nullFl[facility] [place] ec5 268t9-c [facility] 21:49:00 21:49:00 05/16 r Specialties fcb-4745-b l 92c-b0e4fd Mi nn 6ceb22 2014-04-25 2014-04-25 Question nullFlavo [place] 68d7 d004-5 [facility] 20:08:00 20:08:00 on Labs - r Specialties 1e5-263j -9 l answered k07-s0l5l2 [facility] junaid 3a2bdd 2014-04-25 2014-04-25 Question nullFlavo [place] 6b90 769e-2 [facility]oria 20:08:00 20:08:00 on Labs - r Specialties 52f-4ed3 -9 l answered 207-d1b5de [facility] junaid 93c1a8 2014-04-25 2014-04-25 Question nullFlavo [place] cb75 b2ad-1 [facility] 20:08:00 20:08:00 on Labs - r Specialties 04b-4d0b -8 l answered x13-k55317 [facility] junaid f2e40d 2014-04-25 2014-04-25 Question nullFlavo [place] 0cc2 397d-0 [facility] 20:08:00 20:08:00 on Labs - r Specialties ee8-4734 -8 l answered fca-f4af51 [facility] juna[facility] 15n533 2014-04-25 2014-04-25 Question nullFlavo [place] eb8c f4bc-c [facility] 20:08:00 20:08:00 on Labs - r Specialties 126-491c -8 l answered w0y-jfq02b [facility] junaid bd8b34 2014-04-25 2014-04-25 Question nullFlavo [place] b6ec c0f9-5 [facility] 20:08:00 20:08:00 on Labs - r Specialties 565-4c5b -8 l answered 3dc-6e523n [facility] junaid 71738e 2014-04-25 2014-04-25 Question nullFlavo [place] 793a d053-e [facility] 20:08:00 20:08:00 on Labs - r Specialties 9h9-354b -9 l answered [id number] [facility] junaid 878e17 2014-04-25 2014-04-25 Question nullFlavo [place] 9a3a 90e1-1 [facility] 20:08:00 20:08:00 on Labs - r Specialties 410-4b60 -b l answered ba9-053883 [facility] junaid 980455 8726-03-04 2014-04-25 Question nullFlavo [place] fa71 895c-0 [facility]oria 20:08:00 20:08:00 on Labs - r Specialties r0d-0t60 -9 l answered 649-a5108e [facility] junaid 670ec6 2014-04-25 2014-04-25 Question nullFlavo [place] fac2 520e-7 [facility] 20:08:00 20:08:00 on Labs - r Specialties fea-42e8 -b l answered 166-a49ee8 [facility] junaid g7324a 2014-04-25 2014-04-25 Question nullFlavo [place] 105a 0432-0 [facility]oria 20:08:00 20:08:00 on Labs - r Specialties 33f-4f35 -b l answered r31-02795x [facility] junaid cda69b 2014-04-25 2014-04-25 Question nullFlavo [place] 842a 73e3-8 Mem[facility] 20:08:00 20:08:00 on Labs - r Specialties bc7-48b2 -8 l answered cb1-0810e9 [facility] junaid v1q880 2014-04-25 2014-04-25 Question nullFlavo [place] 509b 7408-0 [facility]oria 20:08:00 20:08:00 on Labs - r Specialties 6ac-4e14 -9 l answered 89a-69b3ed [facility] junaid y6018o 2014-04-25 2014-04-25 Question nullFlavo [place] 5262 833a-0 [facility]oria 20:08:00 20:08:00 on Labs - r Specialties 63a-4a44 -b l answered 24f-b1m515 [facility] j[facility] e0ac18 2014-04-25 2014-04-25 Question nullFlavo [place] d0a9 1e34-c [facility] 20:08:00 20:08:00 on Labs - r Specialties 402-4f81 -9 l answered 74b-deda21 [facility] junaid 272cdc 2014-04-25 2014-04-25 Question nullFlavo [place] daa5 709c-7 [facility]oria 20:08:00 20:08:00 on Labs - r Specialties 6h8-7ocj -a l answered 621-ddc5ee [facility] junaid 01c4b2 2014-04-25 2014-04-25 Question nullFlavo [place] 5ec9 f220-3 Memoria 20:08:00 20:08:00 on Labs - r Specialties d57-2xlv -a l answered l94-v0ris3 [facility] juna[facility] edb1f0 2014-04-25 2014-04-25 Question nullFlavo [place] 5148 4367-8 Memoria 20:08:00 20:08:00 on Labs - r Specialties abc-400d -b l answered 67a-40ab1b [facility] junaid 24t840 2014-04-25 2014-04-25 Question nullFlavo [place] 2581 6542-7 Memoria 20:08:00 20:08:00 on Labs - r Specialties a2e-291v -9 l answered 7fe-f4ca3a [facility] junaid c3fc9b 2014-04-25 2014-04-25 Question nullFlavo [place] 4acd 39c0-c Memoria 20:08:00 20:08:00 on Labs - r Specialties 974-4fc2 -a l answered a7d-50va4t [facility] junaid oh524j 2014-04-25 2014-04-25 Question nullFlavo [place] 4f33 7016-4 Memoria 20:08:00 20:08:00 on Labs - r Specialties x32-6p5l -a l answered dd6-sd556z [facility] junaid 97bfd0 2014-04-25 2014-04-25 Question nullFlavo [place] 79f9 0827-a Memoria 20:08:00 20:08:00 on Labs - r Specialties i08-2mz7 -9 l answered dc9-788e27 [facility] junaid a06e56 2014-04-25 2014-04-25 Question nullFlavo [place] e758 6d0d-8 [facility]oria 20:08:00 20:08:00 on Labs - r Specialties k5s-2728 -b l answered v2j-01500k Herm junaid 615522 3656-03-04 2014-04-25 Question nullFlavo [place] cb75 b2ad-1 [facility] 20:08:00 20:08:00 on Labs - r Specialties 04b-4d0b -8 l answered j26-u20213 [facility] junaid f2e40d 2014-04-25 2014-04-25 Question nullFlavo [place] 68d7 d004-5 Memoria 20:08:00 20:08:00 on Labs - r Specialties 6l7-313e -9 l answered y01-n4i5u8 [facility] junaid 3a2bdd 2014-04-25 2014-04-25 Question nullFlavo [place] 9a3a 90e1-1 [facility] 20:08:00 20:08:00 on Labs - r Specialties 410-4b60 -b l answered [id number] Herm junaid 414463 6098-03-04 2014-04-25 Question nullFlavo [place] 793a d053-e Memoria 20:08:00 20:08:00 on Labs - r Specialties 4v5-695a -9 l answered [id number] Herm junaid 878e17 2014-04-25 2014-04-25 Question nullFlavo [place] 6b90 769e-2 Memoria 20:08:00 20:08:00 on Labs - r Specialties 52f-4ed3 -9 l answered 207-d1b5de [facility] junaid 93c1a8 2014-04-25 2014-04-25 Question nullFlavo [place] fa71 895c-0 Memoria 20:08:00 20:08:00 on Labs - r Specialties g1v-1p64 -9 l answered [id number]-v8944q Herm junaid 670ec6 2014-04-25 2014-04-25 Question nullFlavo [place] eb8c f4bc-c [facility]oria 20:08:00 20:08:00 on Labs - r Specialties 126-491c -8 l answered f5p-jsx22s [facility] junaid bd8b34 2014-04-25 2014-04-25 Question nullFlavo [place] 0cc2 397d-0 Memoria 20:08:00 20:08:00 on Labs - r Specialties ee8-4734 -8 l answered fca-f4af51 [facility] junaid 26g748 2014-04-25 2014-04-25 Question nullFlavo [place] b6ec c0f9-5 [facility]oria 20:08:00 20:08:00 on Labs - r Specialties 565-4c5b -8 l answered 3dc-1e789t Herm junaid 38214i 2014-04-25 2014-04-25 Question nullFlavo [place] fac2 520e-7 [facility] 20:08:00 20:08:00 on Labs - r Specialties fea-42e8 -b l answered 166-a49ee8 Herm junaid t9858d 2014-04-25 2014-04-25 Question nullFlavo [place] daa5 709c-7 Memoria 20:08:00 20:08:00 on Labs - r Specialties 7j7-8ibm -a l answered 621-ddc5ee Herm junaid 01c4b2 2014-04-25 2014-04-25 Question nullFlavo [place] 509b 7408-0 Memoria 20:08:00 20:08:00 on Labs - r Specialties 6ac-4e14 -9 l answered 89a-69b3ed Herm junaid j5113w 2014-04-25 2014-04-25 Question nullFlavo [place] 5148 4367-8 Memoria 20:08:00 20:08:00 on Labs - r Specialties abc-400d -b l answered 67a-40ab1b Herm junaid 35s172 2014-04-25 2014-04-25 Question nullFlavo [place] 5262 833a-0 Memoria 20:08:00 20:08:00 on Labs - r Specialties 63a-4a44 -b l answered 24f-h4l976 [facility] junaid e0ac18 2014-04-25 2014-04-25 Question nullFlavo [place] 842a 73e3-8 Memoria 20:08:00 20:08:00 on Labs - r Specialties bc7-48b2 -8 l answered cb1-0810e9 Herm junaid f0z844 2014-04-25 2014-04-25 Question nullFlavo [place] d0a9 1e34-c Memoria 20:08:00 20:08:00 on Labs - r Specialties 402-4f81 -9 l answered 74b-deda21 [facility] junaid 272cdc 2014-04-25 2014-04-25 Question nullFlavo [place] 4f33 7016-4 Memoria 20:08:00 20:08:00 on Labs - r Specialties s60-1c6j -a l answered dd6-hm828j [facility] junaid 97bfd0 2014-04-25 2014-04-25 Question nullFlavo [place] 2581 6542-7 Memoria 20:08:00 20:08:00 on Labs - r Specialties o8b-815m -9 l answered 7fe-f4ca3a Herm junaid c3fc9b 2014-04-25 2014-04-25 Question nullFlavo [place] 5ec9 f220-3 Memoria 20:08:00 20:08:00 on Labs - r Specialties j09-8hnc -a l answered j82-u6nil2 [facility] junaid edb1f0 2014-04-25 2014-04-25 Question nullFlavo [place] 105a 0432-0 Memoria 20:08:00 20:08:00 on Labs - r Specialties 33f-4f35 -b l answered g51-55112a Herm junaid cda69b 2014-04-25 2014-04-25 Question nullFlavo [place] 4acd 39c0-c Memoria 20:08:00 20:08:00 on Labs - r Specialties 974-4fc2 -a l answered a1w-86qg5d Herm junaid mx459m 2014-04-25 2014-04-25 Question nullFlavo [place] e758 6d0d-8 Memoria 20:08:00 20:08:00 on Labs - r Specialties t9h-1127 -b l answered e1a-32847o Herm junaid 012942 4340-03-04 2014-04-25 Question nullFlavo [place] 79f9 0827-a Memoria 20:08:00 20:08:00 on Labs - r Specialties k27-4wm5 -9 l answered dc9-788e27 Herm junaid a06e56 2014-04-25 2014-04-25 Question nullFlavo [place] 01e5 2b02-7 Memoria 19:08:00 19:08:00 on Labs - r Specialties m53-5exx -a l answered 4a5-do40e8 Herm junaid e4471b 2014-04-25 2014-04-25 Question nullFlavo [place] 2847 f5df-d Memoria 19:08:00 19:08:00 on Labs - r Specialties 945-4807 -b l answered [id number] Herm junaid 1s6345 2014-04-25 2014-04-25 Question nullFlavo [place] ef43 8b0e-8 Memoria 19:08:00 19:08:00 on Labs - r Specialties m86-3ed3 -b l answered 74c-daf5c1 Herm junaid 43p106 2014-04-25 2014-04-25 Question nullFlavo [place] bede 0562-7 Memoria 19:08:00 19:08:00 on Labs - r Specialties l23-41m7 -9 l answered de2-d09bd9 Herm junaid 095f85 2014-04-25 2014-04-25 Question nullFlavo [place] 9a3b 8042-1 Memoria 19:08:00 19:08:00 on Labs - r Specialties 2w8-15k1 -a l answered h6c-df5d31 Herm junaid 64b75f 2014-04-25 2014-04-25 Question nullFlavo [place] 25e8 5141-9 Memoria 19:08:00 19:08:00 on Labs - r Specialties 0x9-4044 -b l answered 181-fab3bc Herm junaid c4fa02 2014-04-25 2014-04-25 Question nullFlavo [place] 8fe7 b950-5 Memoria 19:08:00 19:08:00 on Labs - r Specialties kizzy-4688 -9 l answered fe0-c8ce7d Herm junaid 8cc0dd 2014-04-25 2014-04-25 Question nullFlavo [place] 45a7 b67c-2 Memoria 19:08:00 19:08:00 on Labs - r Specialties 9u3-54j7 -b l answered 64f-62758h Herm junaid 2431af 2014-04-25 2014-04-25 Question nullFlavo [place] 017f 8c07-2 Memoria 19:08:00 19:08:00 on Labs - r Specialties ba0-4550 -9 l answered 80e-a7cf91 Herm junaid 8844f4 2014-04-25 2014-04-25 Question nullFlavo [place] 1487 739a-1 Memoria 19:08:00 19:08:00 on Labs - r Specialties 11a-4294 -a l answered 259-12290t Herm junaid f75ba5 2014-04-25 2014-04-25 Question nullFlavo [place] bce6 7177-6 Memoria 19:08:00 19:08:00 on Labs - r Specialties 48d-4da9 -a l answered 6a9-s6l2gm Herm junaid e4765b 2014-04-25 2014-04-25 Question nullFlavo [place] 1ee5 3b1f-0 Memoria 19:08:00 19:08:00 on Labs - r Specialties z95-3a1r -a l answered 359-cfb2c0 Herm junaid dfb17e 2014-04-25 2014-04-25 Question nullFlavo [place] 4762 d36b-2 Memoria 19:08:00 19:08:00 on Labs - r Specialties 30e-4d7c -b l answered 236-c0d71a Herm junaid 76f5f5 2014-04-25 2014-04-25 Question nullFlavo [place] ba49 8ed5-2 Memoria 19:08:00 19:08:00 on Labs - r Specialties 759-4055 -9 l answered 2cd-714ab2 Herm junaid bcb37f 2014-04-25 2014-04-25 Question nullFlavo [place] 4db4 fd3a-c Memoria 19:08:00 19:08:00 on Labs - r Specialties 933-44a7 -a l answered 8ca-2868c4 Herm junaid 7aab1a 2014-04-25 2014-04-25 Question nullFlavo [place] 6104 169a-3 Memoria 19:08:00 19:08:00 on Labs - r Specialties eed-47a8 -9 l answered r58-e4o074 Herm junaid 3ea3d3 2014-04-25 2014-04-25 Question nullFlavo [place] a553 9875-7 Memoria 19:08:00 19:08:00 on Labs - r Specialties fa8-4683 -b l answered 67a-fgd941 Herm junaid k4637o 2014-04-25 2014-04-25 Question nullFlavo [place] c756 0bcf-5 Memoria 19:08:00 19:08:00 on Labs - r Specialties r44-2p13 -b l answered ca8-g4q618 Herm junaid 8c52b2 2014-04-25 2014-04-25 Question nullFlavo [place] efcb bfb0-b [facility]oria 19:08:00 19:08:00 on Labs - r Specialties t3o-0709 -a l answered 6b3-723j1c Herm junaid b0ea13 2014-04-25 2014-04-25 Question nullFlavo [place] 3289 b104-e Memoria 19:08:00 19:08:00 on Labs - r Specialties aa5-49a5 -b l answered 338-47260z Herm junaid 395a61 2014-04-25 2014-04-25 Question nullFlavo [place] 9467 f843-6 Memoria 19:08:00 19:08:00 on Labs - r Specialties h85-1h3l -9 l answered 7j4-f107i2 Herm junaid 121c3e 2014-04-25 2014-04-25 Question nullFlavo [place] 3f8e 4a99-1 Memoria 19:08:00 19:08:00 on Labs - r Specialties ffd-4dcb -9 l answered 130-09326c Herm junaid 123198 8415-03-04 2014-04-25 Question nullFlavo [place] c704 2222-5 Memoria 19:08:00 19:08:00 on Labs - r Specialties 989-45c3 -b l answered 133-e9be95 Herm junaid 4f89db 2014-04-25 2014-04-25 Question nullFlavo [place] ed5c 75c0-3 [facility]oria 19:08:00 19:08:00 on Labs - r Specialties 46f-4a7a -9 l answered adc-24ba3f Herm junaid 6le998 2014-04-25 2014-04-25 Question nullFlavo [place] 2173 0911-c Memoria 19:08:00 19:08:00 on Labs - r Specialties f33-59l8 -b l answered dd7-33ef3b Herm junaid 512e19 2014-04-25 2014-04-25 Question nullFlavo [place] aab3 4cd7-a [facility]oria 19:08:00 19:08:00 on Labs - r Specialties 7e4-7lvj -9 l answered m79-8o603v Herm junaid f705e4 2014-04-25 2014-04-25 Question nullFlavo [place] b728 3fd9-5 Memoria 19:08:00 19:08:00 on Labs - r Specialties aa0-4746 -8 l answered 92a-d77f09 Herm junaid df87ea 2014-04-25 2014-04-25 Question nullFlavo [place] 9a3b 8042-1 Memoria 19:08:00 19:08:00 on Labs - r Specialties 4x6-44c2 -a l answered d6o-go9t62 Herm junaid 64b75f 2014-04-25 2014-04-25 Question nullFlavo [place] 01e5 2b02-7 Memoria 19:08:00 19:08:00 on Labs - r Specialties b75-2nih -a l answered 5i2-kd65k9 Herm junaid k3136p 2014-04-25 2014-04-25 Question nullFlavo [place] 25e8 5141-9 Memoria 19:08:00 19:08:00 on Labs - r Specialties 3e5-5742 -b l answered 181-fab3bc Herm junaid c4fa02 2014-04-25 2014-04-25 Question nullFlavo [place] 2847 f5df-d Memoria 19:08:00 19:08:00 on Labs - r Specialties 945-4807 -b l answered 840-365477 Herm junaid 9v0523 2014-04-25 2014-04-25 Question nullFlavo [place] ef43 8b0e-8 Memoria 19:08:00 19:08:00 on Labs - r Specialties w08-4ml1 -b l answered 74c-daf5c1 Herm junaid 02c611 2014-04-25 2014-04-25 Question nullFlavo [place] bede 0562-7 [facility]oria 19:08:00 19:08:00 on Labs - r Specialties i18-19i1 -9 l answered de2-d09bd9 Herm junaid 095f85 2014-04-25 2014-04-25 Question nullFlavo [place] 8fe7 b950-5 Memoria 19:08:00 19:08:00 on Labs - r Specialties kizzy-4688 -9 l answered fe0-c8ce7d Herm junaid 8cc0dd 2014-04-25 2014-04-25 Question nullFlavo [place] 017f 8c07-2 Memoria 19:08:00 19:08:00 on Labs - r Specialties ba0-4550 -9 l answered 80e-a7cf91 Herm junaid 8844f4 2014-04-25 2014-04-25 Question nullFlavo [place] bce6 7177-6 Memoria 19:08:00 19:08:00 on Labs - r Specialties 48d-4da9 -a l answered 3r4-s2h0re Herm junaid k9028w 2014-04-25 2014-04-25 Question nullFlavo [place] 1487 739a-1 Memoria 19:08:00 19:08:00 on Labs - r Specialties 11a-4294 -a l answered 259-51789g Herm junaid f75ba5 2014-04-25 2014-04-25 Question nullFlavo [place] 45a7 b67c-2 Memoria 19:08:00 19:08:00 on Labs - r Specialties 3x5-38h4 -b l answered 64f-26294i Herm junaid 2431af 2014-04-25 2014-04-25 Question nullFlavo [place] ba49 8ed5-2 Memoria 19:08:00 19:08:00 on Labs - r Specialties 759-4055 -9 l answered 2cd-714ab2 Herm junaid bcb37f 2014-04-25 2014-04-25 Question nullFlavo [place] c756 0bcf-5 Memoria 19:08:00 19:08:00 on Labs - r Specialties m82-6s16 -b l answered ca8-w4r277 Herm junaid 8c52b2 2014-04-25 2014-04-25 Question nullFlavo [place] a553 9875-7 Memoria 19:08:00 19:08:00 on Labs - r Specialties fa8-4683 -b l answered 67a-ukh649 Herm junaid m4480s 2014-04-25 2014-04-25 Question nullFlavo [place] 1ee5 3b1f-0 Memoria 19:08:00 19:08:00 on Labs - r Specialties w88-8d0x -a l answered 359-cfb2c0 Herm junaid dfb17e 2014-04-25 2014-04-25 Question nullFlavo [place] 4762 d36b-2 Memoria 19:08:00 19:08:00 on Labs - r Specialties 30e-4d7c -b l answered 236-c0d71a Herm junaid 76f5f5 2014-04-25 2014-04-25 Question nullFlavo [place] efcb bfb0-b [facility]oria 19:08:00 19:08:00 on Labs - r Specialties v8f-6642 -a l answered 8z1-210e0d Herm junaid b0ea13 2014-04-25 2014-04-25 Question nullFlavo [place] 6104 169a-3 Memoria 19:08:00 19:08:00 on Labs - r Specialties eed-47a8 -9 l answered y51-r0r787 Herm junaid 3ea3d3 2014-04-25 2014-04-25 Question nullFlavo [place] c704 2222-5 Mem[facility] 19:08:00 19:08:00 on Labs - r Specialties 989-45c3 -b l answered 133-e9be95 Herm junaid 4f89db 2014-04-25 2014-04-25 Question nullFlavo [place] ed5c 75c0-3 [facility] 19:08:00 19:08:00 on Labs - r Specialties 46f-4a7a -9 l answered adc-24ba3f Herm junaid [id number] 2014-04-25 2014-04-25 Question nullFlavo [place] 2173 0911-c Memoria 19:08:00 19:08:00 on Labs - r Specialties n03-48l8 -b l answered [id number] Herm junaid [id number] 2014-04-25 2014-04-25 Question nullFlavo [place] 3289 b104-e Memoria 19:08:00 19:08:00 on Labs - [facility] aa5-49a5 -b l answered [id number] Herm junaid [id number] 2014-04-25 2014-04-25 Question nullFlavo [place] 4db4 fd3a-c Memoria 19:08:00 19:08:00 on Labs - [facility] 933-44a7 -a l answered [id number] Herm junaid [id number] 2014-04-25 2014-04-25 Question nullFlavo [place] aab3 4cd7-a Memoria 19:08:00 19:08:00 on Labs - [facility] 7h0-3ztb -9 l answered [id number] Herm junaid [id number] 2014-04-25 2014-04-25 Question nullFlavo [place] 9467 f843-6 Memoria 19:08:00 19:08:00 on Labs - [facility] g26-9l1c -9 l answered [id number] Herm junaid [id number] 2014-04-25 2014-04-25 Question nullFlavo [place] 3f8e 4a99-1 Memoria 19:08:00 19:08:00 on Labs - [facility] ffd-4dcb -9 l answered [id number] Herm junaid [id number] 4085-03-04 2014-04-25 Question nullFlavo [place] b728 3fd9-5 Memoria 19:08:00 19:08:00 on Labs - [facility] aa0-4746 -8 l answered [id number] Herm junaid [id number] 2014-04-04 2014-04-04 2 Day nullFlavo [place] f6dc9 df8-e Memoria 19:00:00 19:00:00 Follow-Up Specialties 108-44fe -a l [id number]-[id number] Mi nn [id number] 2014-04-04 2014-04-04 2 Day nullFlavo [place] e5923 964-d Memoria 19:00:00 19:00:00 Follow-Up r Specialties 994-4795 -8 l [id number]-[id number] Mi nn [id number] 2014-04-04 2014-04-04 2 Day nullFlavo [place] 0e328 bb6-c Memoria 19:00:00 19:00:00 Follow-Up r Specialties 9c2-45m8 -a l [id number]-[id number] [facility] [id number] 0991-02-11 2014-04-04 2 Day nullFlavo [place] d9e58 c81-5 Memoria 19:00:00 19:00:00 Follow-Up r Specialties 51c-4156 -b l [id number] [facility] 943324 0793-02-11 2014-04-04 2 Day nullFlavo [place] 02bf4 7ca-2 Memoria 19:00:00 19:00:00 Follow-Up r Specialties j8e-955b -a l [id number] [facility] ca8ea7 2014-04-04 2014-04-04 2 Day nullFlavo [place] 1c08b 9aa-d Memoria 19:00:00 19:00:00 Follow-Up r Specialties q08-469r -8 l [id number] [facility] 611997 9173-02-11 2014-04-04 2 Day nullFlavo [place] e53c9 902-e Memoria 19:00:00 19:00:00 Follow-Up r Specialties 34c-40ed -8 l [id number] [facility] 63b30b 2014-04-04 2014-04-04 2 Day nullFlavo [place] 318ee 8a7-0 Memoria 19:00:00 19:00:00 Follow-Up r Specialties 108-45b3 -8 l [id number]-0c6eed [facility] 20948o 2014-04-04 2014-04-04 2 Day nullFlavo [place] 44243 301-a Memoria 19:00:00 19:00:00 Follow-Up r Specialties 87a-4d09 -8 l [id number] [facility] 675622 2451-02-11 2014-04-04 2 Day nullFlavo [place] 1f586 924-3 Memoria 19:00:00 19:00:00 Follow-Up r Specialties 17b-46a1 -a l [id number] [facility] up0249 2014-04-04 2014-04-04 2 Day nullFlavo [place] a457a be0-4 Memoria 19:00:00 19:00:00 Follow-Up r Specialties f12-675s -b l [id number] Mi nn [id number] 2014-04-04 2014-04-04 2 Day nullFlavo [place] 5253f 50e-b Memoria 19:00:00 19:00:00 Follow-Up r Specialties o81-592j -b l [id number] Mi nn [id number] 2014-04-04 2014-04-04 2 Day nullFlavo [place] 93b5d 47f-c Memoria 19:00:00 19:00:00 Follow-Up r Specialties 68a-4a90 -8 l [id number] Mi nn [id number] 2014-04-04 2014-04-04 2 Day nullFlavo [place] 26726 6ab-0 Memoria 19:00:00 19:00:00 Follow-Up r Specialties 219-4b0b -8 l [id number] Mi nn at0676 2014-04-04 2014-04-04 2 Day nullFlavo [place] 53bb7 380-9 Memoria 19:00:00 19:00:00 Follow-Up r Specialties 1fd-48f0 -9 l [id number]-[id number] Mi nn 93cb7c 2014-04-04 2014-04-04 2 Day nullFlavo [place] d32fa c5b-d Memoria 19:00:00 19:00:00 Follow-Up r Specialties r65-2112 -9 l [id number]-c555ca Mi nn 13c70c 2014-04-04 2014-04-04 2 Day nullFlavo [place] 98143 bd9-e Memoria 19:00:00 19:00:00 Follow-Up r Specialties 554-4e5c -b l [id number]-ed7f11 Mi nn [id number] 2014-04-04 2014-04-04 2 Day nullFlavo [place] 487da 0b5-5 Memoria 19:00:00 19:00:00 Follow-Up r Specialties z36-784i -b l [id number]-63f62c [facility] nn [id number] 2014-04-04 2014-04-04 2 Day nullFlavo Canon [place] [address] fac-4 [facility] 19:00:00 19:00:00 Follow-Up r Specialties i42-61e4 -9 l v1i-500u1s Mi nn 446b7d 2014-04-04 2014-04-04 2 Day [place] 6208a 3c3-0 [facility] 19:00:00 19:00:00 Follow-Up r Specialties s0p-591e -9 l 828-30180q Mi nn 829ed5 2014-04-04 2014-04-04 2 Day [place] [place] c791c 55c-c [facility] 19:00:00 19:00:00 Follow-Up r Specialties 650-49ec -b l n2o-8kw80k Mi nn r8971x 2014-04-04 2014-04-04 2 Day [place] 6975f b4f-4 [facility] 19:00:00 19:00:00 Follow-Up r Specialties 44c-4874 -b l ada-6a03a7 Mi nn 90b62a 2014-04-04 2014-04-04 2 Day [place] 1eaff a6b-a [facility] 19:00:00 19:00:00 Follow-Up r Specialties f58-2240 -a l 6ae-f524ad Mi nn s63386 2014-04-04 2014-04-04 2 Day [place] [place] 0b936 2ea-d [facility] 19:00:00 19:00:00 Follow-Up r Specialties 24f-49f7 -a l 389-564961 Mi nn d5cdd5 2014-04-04 2014-04-04 2 Day [place] 0e328 bb6-c [facility] 19:00:00 19:00:00 Follow-Up r Specialties 8y4-99w0 -a l 768-eeebf2 Mi nn 755782 3958-02-11 2014-04-04 2 Day [place] [place] d9e58 c81-5 [facility] 19:00:00 19:00:00 Follow-Up r Specialties 51c-4156 -b l h39-79esni Mi nn 720326 5479-02-11 2014-04-04 2 Day [place] [place] f6dc9 df8-e [facility] 19:00:00 19:00:00 Follow-Up r Specialties 108-44fe -a l 8fd-69753b Mi masterson 8460d2 2014-04-04 2014-04-04 2 Day [place] 23798 301-a [facility] 19:00:00 19:00:00 Follow-Up r Specialties 87a-4d09 -8 l 4g9-2pr812 Mi [place] 829610 6348-02-11 2014-04-04 2 Day [place] [place] 318ee 8a7-0 [facility] 19:00:00 19:00:00 Follow-Up r Specialties 108-45b3 -8 l 52e-0c6eed Mi [place] 56411d 2014-04-04 2014-04-04 2 Day [place] [place] e5923 964-d [facility] 19:00:00 19:00:00 Follow-Up r Specialties 994-4795 -8 l 10e-91a5e6 Mi aleja 9076ea 2014-04-04 2014-04-04 2 Day [place] [place] 1f586 924-3 [facility] 19:00:00 19:00:00 Follow-Up r Specialties 17b-46a1 -a l aec-8083d9 Mi aleja ym3371 2014-04-04 2014-04-04 2 Day [place] [place] 1c08b 9aa-d [facility] 19:00:00 19:00:00 Follow-Up r Specialties g05-698k -8 l 2j8-ovj1bc Mi aleja 600409 9730-02-11 2014-04-04 2 Day [place] [place] 02bf4 7ca-2 [facility] 19:00:00 19:00:00 Follow-Up r Specialties h3y-455d -a l 2a8-98841f [facility] aleja ca8ea7 2014-04-04 2014-04-04 2 Day [place] e53c9 902-e [facility] 19:00:00 19:00:00 Follow-Up r Specialties 34c-40ed -8 l r52-69urk5 Mi aleja 63b30b 2014-04-04 2014-04-04 2 Day [place] a457a be0-4 [facility] 19:00:00 19:00:00 Follow-Up r Specialties w78-970g -b l 322-2a0cee Mi nn fb39e8 2014-04-04 2014-04-04 2 Day [place] 67486 bd9-e [facility] 19:00:00 19:00:00 Follow-Up r Specialties 554-4e5c -b l fd0-ed7f11 Mi nn 114f77 2014-04-04 2014-04-04 2 Day [place] 34396 6ab-0 [facility] 19:00:00 19:00:00 Follow-Up r Specialties 219-4b0b -8 l 772-7fi716 Mi nn ko8015 2014-04-04 2014-04-04 2 Day [place] 3f289 fac-4 [facility] 19:00:00 19:00:00 Follow-Up r Specialties k61-31m0 -9 l k6r-798f9n Mi nn 446b7d 2014-04-04 2014-04-04 2 Day [place] [place] 53bb7 380-9 [facility] 19:00:00 19:00:00 Follow-Up r Specialties 1fd-48f0 -9 l d0z-82m240 Mi nn 93cb7c 2014-04-04 2014-04-04 2 Day [place] [place] 93b5d 47f-c [facility] 19:00:00 19:00:00 Follow-Up r Specialties 68a-4a90 -8 l 0e5-w8h371 Mi nn 0sj955 2014-04-04 2014-04-04 2 Day [place] [place] d32fa c5b-d [facility] 19:00:00 19:00:00 Follow-Up r Specialties v66-2117 -9 l cd0-c555ca Mi nn 13c70c 2014-04-04 2014-04-04 2 Day [place] 6975f b4f-4 [facility] 19:00:00 19:00:00 Follow-Up r Specialties 44c-4874 -b l ada-6a03a7 Mi nn 90b62a 2014-04-04 2014-04-04 2 Day [place] [place] 6208a 3c3-0 [facility] 19:00:00 19:00:00 Follow-Up r Specialties m9o-155x -9 l 828-08721a Mi nn 829ed5 2014-04-04 2014-04-04 2 Day [place] [place] 487da 0b5-5 [facility] 19:00:00 19:00:00 Follow-Up r Specialties b82-121a -b l fcf-63f62c Mi nn 1b8985 2014-04-04 2014-04-04 2 Day [place] [place] 5253f 50e-b [facility] 19:00:00 19:00:00 Follow-Up r Specialties e26-649w -b l p74-26kf67 Mi nn 8838c0 2014-04-04 2014-04-04 2 Day [place] [place] c791c 55c-c [facility] 19:00:00 19:00:00 Follow-Up r Specialties 650-49ec -b l h5k-1hj54z Mi nn u1794d 2014-04-04 2014-04-04 2 Day [place] [place] 0b936 2ea-d [facility] 19:00:00 19:00:00 Follow-Up r Specialties 24f-49f7 -a l 389-951507 Mi nn d5cdd5 2014-04-04 2014-04-04 2 Day [place] 1eaff a6b-a [facility] 19:00:00 19:00:00 Follow-Up r Specialties u68-6805 -a l 6ae-f524ad [facility] nn h96548 2014-04-04 2014-04-04 2 Day [place] 352a2 2a4-e [facility] 18:00:00 18:00:00 Follow-Up r Specialties 1q0-9o22 -b l t6v-fd4ec6 Mi nn 66w232 2014-04-04 2014-04-04 2 Day [place] efde1 614-8 [facility] 18:00:00 18:00:00 Follow-Up r Specialties 039-4fbd -8 l 360-0df70a Mi nn 999dd0 2014-04-04 2014-04-04 2 Day [place] 95596 7da-f [facility] 18:00:00 18:00:00 Follow-Up r Specialties 28a-4ce0 -9 l 6s6-9a7yq4 Mi nn c3ec32 2014-04-04 2014-04-04 2 Day [place] 7619c e7c-5 [facility] 18:00:00 18:00:00 Follow-Up r Specialties 194-4b35 -a l d48-b7vdb1 Mi nn 7a6b06 2014-04-04 2014-04-04 2 Day [place] [place] 18e1a 7a5-3 [facility] 18:00:00 18:00:00 Follow-Up r Specialties 40d-4956 -9 l 793-d321b2 Mi nn b2bb41 2014-04-04 2014-04-04 2 Day [place] 01204 ef4-b [facility] 18:00:00 18:00:00 Follow-Up r Specialties 48e-431a -8 l 8da-5a00b7 Mi nn 0x7944 2014-04-04 2014-04-04 2 Day [place] 424c6 e52-d [facility] 18:00:00 18:00:00 Follow-Up r Specialties 5ff-4dc7 -9 l 6eb-95af67 Mi nn p8308g 2014-04-04 2014-04-04 2 Day [place] [place] 66c14 2e3-0 [facility] 18:00:00 18:00:00 Follow-Up r Specialties 7t1-6316 -a l bb4-4b1cf5 Mi nn 5o695r 2014-04-04 2014-04-04 2 Day [place] [place] 53b6f 55b-f [facility] 18:00:00 18:00:00 Follow-Up r Specialties 93e-42e5 -a l 1j9-93610v Mi nn 9f0d12 2014-04-04 2014-04-04 2 Day [place] 4f6aa 868-d [facility] 18:00:00 18:00:00 Follow-Up r Specialties 15a-41df -b l 023-836135 Mi nn ad22a3 2014-04-04 2014-04-04 2 Day [place] 36a6b 708-4 [facility] 18:00:00 18:00:00 Follow-Up r Specialties 95a-4a28 -a l c31-o37375 [facility] nn 5076a6 2014-04-04 2014-04-04 2 Day [place] 9e5e4 4a1-3 [facility] 18:00:00 18:00:00 Follow-Up r Specialties ff4-4f4c -8 l 836-139208 Mi nn 191dd3 2014-04-04 2014-04-04 2 Day [place] a1d75 4ed-d [facility] 18:00:00 18:00:00 Follow-Up r Specialties db9-4a80 -a l q56-u1i8bs Mi nn c84a4e 2014-04-04 2014-04-04 2 Day [place] [place] e51a1 6ff-a [facility] 18:00:00 18:00:00 Follow-Up r Specialties r85-217k -9 l bcd-y8104p Mi nn eaaf17 2014-04-04 2014-04-04 2 Day [place] 74d61 322-2 [facility] 18:00:00 18:00:00 Follow-Up r Specialties 279-4133 -a l v1p-66qyp2 [facility] nn 36n443 2014-04-04 2014-04-04 2 Day [place] 549f5 86a-e [facility] 18:00:00 18:00:00 Follow-Up r Specialties 148-4907 -a l 1r6-409476 [facility] nn 183da0 2014-04-04 2014-04-04 2 Day [place] 1b7ab 987-5 [facility] 18:00:00 18:00:00 Follow-Up r Specialties c4j-2z6l -8 l 46d-53fb1d [facility] z6u690 2014-04-04 2014-04-04 2 Day [place] 18ea1 965-8 [facility] 18:00:00 18:00:00 Follow-Up r Specialties 53f-4217 -9 l 9y1-1739b5 [facility] nn 484cd8 2014-04-04 2014-04-04 2 Day [place] 33291 1e5-b [facility] 18:00:00 18:00:00 Follow-Up r Specialties 91e-428a -8 l 46e-9aaee3 [facility] 9ud946 2014-04-04 2014-04-04 2 Day [place] 299d1 8c5-b [facility] 18:00:00 18:00:00 Follow-Up r Specialties q57-21d4 -b l 57e-45bcfd Mi nn 4e3d9a 2014-04-04 2014-04-04 2 Day [place] [place] dbfad 9e3-b [facility] 18:00:00 18:00:00 Follow-Up r Specialties p38-8rte -b l 8w8-p92617 Mi nn to071c 2014-04-04 2014-04-04 2 Day [place] [place] b76a4 ac8-6 [facility] 18:00:00 18:00:00 Follow-Up r Specialties 4z3-1n7b -a l cca-79p767 Mi nn 887e29 2014-04-04 2014-04-04 2 Day [place] [place] 79f3b 9bd-6 [facility] 18:00:00 18:00:00 Follow-Up r Specialties af1-47f9 -b l 2d8-874q08 [facility] nn 926329 3465-02-11 2014-04-04 2 Day [place] 71cff 993-d [facility] 18:00:00 18:00:00 Follow-Up r Specialties 301-492c -8 l s93-19v51w [facility] nn 8m572m 2014-04-04 2014-04-04 2 Day [place] 8ee1d d72-4 [facility] 18:00:00 18:00:00 Follow-Up r Specialties 5c8-45g0 -b l 3ad-f9dd43 [facility] nn a101ca 2014-04-04 2014-04-04 2 Day [place] e84ba f1b-7 [facility] 18:00:00 18:00:00 Follow-Up r Specialties 5u8-5720 -8 l q0i-f9203f [facility] nn 000539 5432-02-11 2014-04-04 2 Day [place]Fl[place] 58c27 be1-a [facility] 18:00:00 18:00:00 Follow-Up r Specialties ae2-45f2 -8 l 1ae-0fb4c1 Mi nn 39b1dd 2014-04-04 2014-04-04 2 Day [place] [place] 18e1a 7a5-3 [facility] 18:00:00 18:00:00 Follow-Up r Specialties 40d-4956 -9 l 793-d321b2 Mi nn b2bb41 2014-04-04 2014-04-04 2 Day [place] [place] 352a2 2a4-e [facility] 18:00:00 18:00:00 Follow-Up r Specialties 3g0-6e67 -b l s9c-ze8qm7 Mi nn 44d077 2014-04-04 2014-04-04 2 Day [place] 66351 ef4-b [facility] 18:00:00 18:00:00 Follow-Up r Specialties 48e-431a -8 l 8da-5a00b7 Mi nn 7p3426 2014-04-04 2014-04-04 2 Day [place] [place] efde1 614-8 [facility] 18:00:00 18:00:00 Follow-Up r Specialties 039-4fbd -8 l 360-0df70a Mi nn 999dd0 2014-04-04 2014-04-04 2 Day [place] 38287 7da-f [facility] 18:00:00 18:00:00 Follow-Up r Specialties 28a-4ce0 -9 l 6u7-8d1bh6 Mi nn c3ec32 2014-04-04 2014-04-04 2 Day [place] [place] 7619c e7c-5 [facility] 18:00:00 18:00:00 Follow-Up r Specialties 194-4b35 -a l l26-i4psi5 Mi nn 7a6b06 2014-04-04 2014-04-04 2 Day [place] [place] 424c6 e52-d [facility] 18:00:00 18:00:00 Follow-Up r Specialties 5ff-4dc7 -9 l 6eb-95af67 Mi nn p2297n 2014-04-04 2014-04-04 2 Day [place] [place] 53b6f 55b-f [facility] 18:00:00 18:00:00 Follow-Up r Specialties 93e-42e5 -a l 2f1-89565p Mi nn 9f0d12 2014-04-04 2014-04-04 2 Day [place] [place] 36a6b 708-4 [facility] 18:00:00 18:00:00 Follow-Up r Specialties 95a-4a28 -a l h64-m78294 Mi nn 5076a6 2014-04-04 2014-04-04 2 Day [place] [place] 4f6aa 868-d [facility] 18:00:00 18:00:00 Follow-Up r Specialties 15a-41df -b l 023-142656 Mi nn ad22a3 2014-04-04 2014-04-04 2 Day [place] [place] 66c14 2e3-0 [facility] 18:00:00 18:00:00 Follow-Up r Specialties 7h7-8531 -a l bb4-4b1cf5 Mi nn 8r979p 2014-04-04 2014-04-04 2 Day [place] [place] e51a1 6ff-a [facility] 18:00:00 18:00:00 Follow-Up r Specialties n42-137m -9 l bcd-i3574y Mi nn eaaf17 2014-04-04 2014-04-04 2 Day [facility] [place] 18ea1 965-8 [facility] 18:00:00 18:00:00 Follow-Up r Specialties 53f-4217 -9 l 0l8-9497l3 Mi nn 484cd8 2014-04-04 2014-04-04 2 Day [facility] [place] 1b7ab 987-5 [facility] 18:00:00 18:00:00 Follow-Up r Specialties n6m-4x7k -8 l 46d-53fb1d Mi nn n2y895 2014-04-04 2014-04-04 2 Day [facility] [place] 9e5e4 4a1-3 [facility] 18:00:00 18:00:00 Follow-Up r Specialties ff4-4f4c -8 l 836-987439 Mi nn 191dd3 2014-04-04 2014-04-04 2 Day [place] [place] a1d75 4ed-d [facility] 18:00:00 18:00:00 Follow-Up r Specialties db9-4a80 -a l j75-q2u5jq Mi nn c84a4e 2014-04-04 2014-04-04 2 Day [place] 88390 1e5-b [facility] 18:00:00 18:00:00 Follow-Up r Specialties 91e-428a -8 l 46e-9aaee3 Mi nn 5jv737 2014-04-04 2014-04-04 2 Day [facility] [place] 549f5 86a-e [facility] 18:00:00 18:00:00 Follow-Up r Specialties 148-4907 -a l 9r9-947519 Mi nn 183da0 2014-04-04 2014-04-04 2 Day [facility] [place] 79f3b 9bd-6 [facility] 18:00:00 18:00:00 Follow-Up r Specialties af1-47f9 -b l 8v6-232u32 Mi nn 977448 6821-02-11 2014-04-04 2 Day [facility] [place] 71cff 993-d [facility] 18:00:00 18:00:00 Follow-Up r Specialties 301-492c -8 l h31-11b73y Mi nn 6f859v 2014-04-04 2014-04-04 2 Day [facility] [place] 8ee1d d72-4 [facility] 18:00:00 18:00:00 Follow-Up r Specialties 5w7-31m4 -b l 3ad-f9dd43 Mi nn a101ca 2014-04-04 2014-04-04 2 Day [place] [place] 299d1 8c5-b [facility] 18:00:00 18:00:00 Follow-Up r Specialties n40-37s7 -b l 57e-45bcfd Mi nn 4e3d9a 2014-04-04 2014-04-04 2 Day [place] [place] 74d61 322-2 [facility] 18:00:00 18:00:00 Follow-Up r Specialties 279-4133 -a l c0u-60btg1 Mi nn 09k559 2014-04-04 2014-04-04 2 Day [place] [place] e84ba f1b-7 [facility] 18:00:00 18:00:00 Follow-Up r Specialties 1v6-6830 -8 l m9p-f5843c Mi nn 904714 6438-02-11 2014-04-04 2 Day [place] [place] dbfad 9e3-b [facility] 18:00:00 18:00:00 Follow-Up r Specialties j38-8tzc -b l 4f7-m18572 Mi nn sg488o 2014-04-04 2014-04-04 2 Day [place] [place] b76a4 ac8-6 [facility] 18:00:00 18:00:00 Follow-Up r Specialties 5a0-6f5l -a l cca-80z749 Mi nn 887e29 2014-04-04 2014-04-04 2 Day [place] [place] 58c27 be1-a [facility] 18:00:00 18:00:00 Follow-Up r Specialties ae2-45f2 -8 l 1ae-0fb4c1 Mi nn 39b1dd 2014-04-02 2014-04-02 3 Month [place] [place] fd248 236-7 [facility] 14:30:00 14:30:00 Follow-Up r Specialties 643-4004 -b l 2bb-eaf99d Mi nn 7863bf 2014-04-02 2014-04-02 3 Month [facility] [place] 70ff5 c40-d [facility] 14:30:00 14:30:00 Follow-Up r Specialties 7v3-9r58 -b l 4n9-g825bd Mi nn 3bca4e 2014-04-02 2014-04-02 3 Month [facility] [place] 7aad7 76d-4 [facility] 14:30:00 14:30:00 Follow-Up r Specialties 981-4664 -b l 2ad-e835d1 Mi nn 7d42d7 2014-04-02 2014-04-02 3 Month [facility] [place] 4c8d0 255-3 [facility] 14:30:00 14:30:00 Follow-Up r Specialties cd6-4434 -a l 843-c66eca Mi nn 0n522g 2014-04-02 2014-04-02 3 Month [facility] [place] bccf5 7c8-a [facility] 14:30:00 14:30:00 Follow-Up r Specialties 39d-4b50 -a l 3bc-828c54 Mi nn g35004 2014-04-02 2014-04-02 3 Month [facility] [place] 3aa1b 064-6 [facility] 14:30:00 14:30:00 Follow-Up r Specialties l9e-8h24 -a l 331-585f33 Mi nn e25a98 2014-04-02 2014-04-02 3 Month [facility] [place] b988d 081-a [facility] 14:30:00 14:30:00 Follow-Up r Specialties 6e1-7n13 -8 l ac6-9b0fa8 Mi nn x5426q 2014-04-02 2014-04-02 3 Month [facility] [place] 87b6f e4b-2 [facility] 14:30:00 14:30:00 Follow-Up r Specialties 66c-4ae4 -9 l 276-726809 Mi nn 3d4c90 2014-04-02 2014-04-02 3 Month [facility] [place] b80e4 617-8 [facility] 14:30:00 14:30:00 Follow-Up r Specialties 7m6-8235 -a l v10-67u519 Mi nn 5e39eb 2014-04-02 2014-04-02 3 Month [facility] [place] 6ec76 651-1 [facility] 14:30:00 14:30:00 Follow-Up r Specialties m57-1008 -a l z65-vraq5o Mi nn 8y533p 2014-04-02 2014-04-02 3 Month [facility] [place] 4fb86 1b1-e [facility] 14:30:00 14:30:00 Follow-Up r Specialties 28e-4725 -b l 2ea-c8d6f3 Mi nn cd532s 2014-04-02 2014-04-02 3 Month [facility] [place] 635c5 07e-c [facility] 14:30:00 14:30:00 Follow-Up r Specialties s67-5ube -9 l 338-728efe Mi nn g8z155 2014-04-02 2014-04-02 3 Month [facility] [place] 03be9 acb-3 [facility] 14:30:00 14:30:00 Follow-Up r Specialties 567-4d67 -a l 635-33a3ed Mi nn lt286u 2014-04-02 2014-04-02 3 Month [place] [place] 45445 f67-6 [facility] 14:30:00 14:30:00 Follow-Up r Specialties 737-4658 -8 l 3v4-n4926t Mi nn d2dc54 2014-04-02 2014-04-02 3 Month [facility] [place] 5c3ce add-f [facility] 14:30:00 14:30:00 Follow-Up r Specialties 9w7-5m56 -b l n1z-fr048f Mi nn 4a9e55 2014-04-02 2014-04-02 3 Month [facility] [place] 817d1 757-6 [facility] 14:30:00 14:30:00 Follow-Up r Specialties 426-409a -8 l 66b-59e7bc Mi nn 0mj458 2014-04-02 2014-04-02 3 Month [facility] [place] f8c0f 605-5 [facility] 14:30:00 14:30:00 Follow-Up r Specialties 008-4cf0 -a l 0b5-wg1519 Mi nn f133a4 2014-04-02 2014-04-02 3 Month [facility] [place] 8e658 4f5-0 [facility] 14:30:00 14:30:00 Follow-Up r Specialties aed-4827 -9 l 15c-d2d2e2 Mi nn bc27d5 2014-04-02 2014-04-02 3 Month [facility] [place] 527d3 ee3-7 [facility] 14:30:00 14:30:00 Follow-Up r Specialties ebd-4542 -b l fa8-0153fc Mi nn 3a09bb 2014-04-02 2014-04-02 3 Month [facility] [place] 033f9 0e9-7 [facility] 14:30:00 14:30:00 Follow-Up r Specialties k14-3415 -8 l 997-697ffc Mi nn 5b1f78 2014-04-02 2014-04-02 3 Month [facility] [place] 775cc 846-c [facility] 14:30:00 14:30:00 Follow-Up r Specialties 5x7-2181 -8 l 0e3-86x7pf Mi nn c6fdbe 2014-04-02 2014-04-02 3 Month [facility] [place] a379b cd1-3 [facility] 14:30:00 14:30:00 Follow-Up r Specialties cc2-4290 -9 l 716-82a9de Mi nn 8303ac 2014-04-02 2014-04-02 3 Month [place] 42050 ab6-9 [facility] 14:30:00 14:30:00 Follow-Up r Specialties o5s-71j8 -8 l 080-a16e2b Mi nn 5637cc 2014-04-02 2014-04-02 3 Month [place] [place] 45262 d67-3 [facility] 14:30:00 14:30:00 Follow-Up r Specialties 853-41fb -8 l abb-8ae8e1 Mi nn 80de0d 2014-04-02 2014-04-02 3 Month [facility] [place] 8e658 4f5-0 [facility] 14:30:00 14:30:00 Follow-Up r Specialties aed-4827 -9 l 15c-d2d2e2 Mi nn bc27d5 2014-04-02 2014-04-02 3 Month [facility] [place] 635c5 07e-c [facility] 14:30:00 14:30:00 Follow-Up r Specialties j91-4kof -9 l 338-728efe [facility] nn q5i486 2014-04-02 2014-04-02 3 Month [place] [place] 775cc 846-c [facility] 14:30:00 14:30:00 Follow-Up r Specialties 2d9-4343 -8 l 0s0-29z4pu Mi nn c6fdbe 2014-04-02 2014-04-02 3 Month [place] [place] 33867 d67-3 [facility] 14:30:00 14:30:00 Follow-Up r Specialties 853-41fb -8 l abb-8ae8e1 Mi nn 80de0d 2014-04-02 2014-04-02 3 Month [place] 44096 ab6-9 [facility] 14:30:00 14:30:00 Follow-Up r Specialties e5h-75u2 -8 l 080-a16e2b Mi nn 5637cc 2014-04-02 2014-04-02 3 Month [facility] [place] 7aad7 76d-4 [facility] 14:30:00 14:30:00 Follow-Up r Specialties 981-4664 -b l 2ad-e835d1 Mi nn 7d42d7 2014-04-02 2014-04-02 3 Month [facility] [place] 4c8d0 255-3 [facility] 14:30:00 14:30:00 Follow-Up r Specialties cd6-4434 -a l 843-c66eca Mi nn 8r485s 2014-04-02 2014-04-02 3 Month [place] [place] fd248 236-7 [facility] 14:30:00 14:30:00 Follow-Up r Specialties 643-4004 -b l 2bb-eaf99d Mi nn 7863bf 2014-04-02 2014-04-02 3 Month [facility] [place] b80e4 617-8 [facility] 14:30:00 14:30:00 Follow-Up r Specialties 6b3-8138 -a l d70-39k000 Mi nn 5e39eb 2014-04-02 2014-04-02 3 Month [facility] [place] 87b6f e4b-2 [facility] 14:30:00 14:30:00 Follow-Up r Specialties 66c-4ae4 -9 l 276-259089 Mi nn 3d4c90 2014-04-02 2014-04-02 3 Month [facility] [place] 70ff5 c40-d [facility] 14:30:00 14:30:00 Follow-Up r Specialties 3d1-7b36 -b l 0z8-c555ui Mi nn 3bca4e 2014-04-02 2014-04-02 3 Month [place] [place] 6ec76 651-1 [facility] 14:30:00 14:30:00 Follow-Up r Specialties m77-6612 -a l o24-pewr7u Mi nn 5w746m 2014-04-02 2014-04-02 3 Month [facility] [place] 3aa1b 064-6 [facility] 14:30:00 14:30:00 Follow-Up r Specialties a3v-4v40 -a l 331-585f33 Mi nn e25a98 2014-04-02 2014-04-02 3 Month [facility] [place] bccf5 7c8-a [facility] 14:30:00 14:30:00 Follow-Up r Specialties 39d-4b50 -a l 3bc-828c54 Mi nn n84475 2014-04-02 2014-04-02 3 Month [facility] [place] b988d 081-a [facility] 14:30:00 14:30:00 Follow-Up r Specialties 6l8-4x48 -8 l ac6-9b0fa8 Mi nn i1069o 2014-04-02 2014-04-02 3 Month [facility] [place] 4fb86 1b1-e [facility] 14:30:00 14:30:00 Follow-Up r Specialties 28e-4725 -b l 2ea-c8d6f3 Mi nn ci651w 2014-04-02 2014-04-02 3 Month [facility] [place] f8c0f 605-5 [facility] 14:30:00 14:30:00 Follow-Up r Specialties 008-4cf0 -a l 2d6-bq4249 Mi nn f133a4 2014-04-02 2014-04-02 3 Month [facility] [place] [address]22 f67-6 [facility] 14:30:00 14:30:00 Follow-Up r Specialties 737-4658 -8 l 9d1-i0888t Mi nn d2dc54 2014-04-02 2014-04-02 3 Month [facility] [place] 527d3 ee3-7 [facility] 14:30:00 14:30:00 Follow-Up r Specialties ebd-4542 -b l fa8-0153fc Mi nn 3a09bb 2014-04-02 2014-04-02 3 Month [facility] [place] 5c3ce add-f [facility] 14:30:00 14:30:00 Follow-Up r Specialties 3l3-3w75 -b l z8q-mm062n Mi nn 4a9e55 2014-04-02 2014-04-02 3 Month [facility] [place] 03be9 acb-3 [facility] 14:30:00 14:30:00 Follow-Up r Specialties 567-4d67 -a l 635-33a3ed Mi nn pq105b 2014-04-02 2014-04-02 3 Month [facility] [place] 817d1 757-6 [facility] 14:30:00 14:30:00 Follow-Up r Specialties 426-409a -8 l 66b-59e7bc Mi nn 8xs310 2014-04-02 2014-04-02 3 Month [facility] [place] a379b cd1-3 [facility] 14:30:00 14:30:00 Follow-Up r Specialties cc2-4290 -9 l 716-82a9de Mi nn 8303ac 2014-04-02 2014-04-02 3 Month [facility] [place] 033f9 0e9-7 [facility] 14:30:00 14:30:00 Follow-Up r Specialties f93-8946 -8 l 997-697ffc Mi nn 5b1f78 2014-04-02 2014-04-02 3 Month [facility] [place] 5ecc7 feb-7 [facility] 13:30:00 13:30:00 Follow-Up r Specialties dff-4ae4 -8 l 208-6143df Mi nn 598df8 2014-04-02 2014-04-02 3 Month [facility] [place] 48fc9 4f0-f [facility] 13:30:00 13:30:00 Follow-Up r Specialties bb1-42fd -a l d95-u8bw3q Mi nn n6751o 2014-04-02 2014-04-02 3 Month [facility] [place] 20def 136-4 [facility] 13:30:00 13:30:00 Follow-Up r Specialties 6w2-9qda -9 l 1b8-33d75l Mi nn d5d37d 2014-04-02 2014-04-02 3 Month [facility] [place] fc412 71a-e [facility] 13:30:00 13:30:00 Follow-Up r Specialties 194-4fb9 -b l [id number] Mi nn e926af 2014-04-02 2014-04-02 3 Month [facility] [place] 82a16 652-c [facility] 13:30:00 13:30:00 Follow-Up r Specialties 581-4a67 -b l o30-7h1229 Mi nn 25fa8c 2014-04-02 2014-04-02 3 Month [facility] [place] ca702 ed0-4 [facility] 13:30:00 13:30:00 Follow-Up r Specialties eb2-4d44 -a l 54b-2p1555 Mi nn us7514 2014-04-02 2014-04-02 3 Month [facility] [place] 6d28a 5ae-b [facility] 13:30:00 13:30:00 Follow-Up r Specialties 220-4e86 -8 l 7d1-47wp7y Mi nn 45001x 2014-04-02 2014-04-02 3 Month [facility] [place] 2b6cb 18e-d [facility] 13:30:00 13:30:00 Follow-Up r Specialties 90f-4020 -b l 82f-12z364 Mi nn 597f31 2014-04-02 2014-04-02 3 Month [facility] [place] 9881d 0b8-1 [facility] 13:30:00 13:30:00 Follow-Up r Specialties e55-3691 -8 l da4-afadbf Mi nn 42e58f 2014-04-02 2014-04-02 3 Month [facility] [place] 66d42 828-5 [facility] 13:30:00 13:30:00 Follow-Up r Specialties fd0-4cdd -9 l 6ed-5b19fc Mi nn 39e10f 2014-04-02 2014-04-02 3 Month [facility] [place] bbb1b fe1-9 [facility] 13:30:00 13:30:00 Follow-Up r Specialties p51-8d6u -b l 4q0-z2310c Mi nn [id number] 0973-02-09 2014-04-02 3 Month [facility] [place] dbd34 42d-e [facility] 13:30:00 13:30:00 Follow-Up r Specialties b6y-3927 -a l 1bb-f3ad98 Mi nn 232be7 2014-04-02 2014-04-02 3 Month [facility] [place] 3cdd9 d0f-0 [facility] 13:30:00 13:30:00 Follow-Up r Specialties j46-88wj -a l 83d-8a5f3c Mi nn 8a23ca 2014-04-02 2014-04-02 3 Month [facility] [place] 0159b 244-f [facility] 13:30:00 13:30:00 Follow-Up r Specialties 41d-421d -8 l l6e-2w2960 Mi nn 3nd562 2014-04-02 2014-04-02 3 Month [facility] [place] 9d22e d1e-0 [facility] 13:30:00 13:30:00 Follow-Up r Specialties 300-43a0 -b l 646-e8bf98 Mi nn 559453 9242-02-09 2014-04-02 3 Month [facility] [place] da756 761-3 [facility] 13:30:00 13:30:00 Follow-Up r Specialties 83e-49fd -b l 090-00f13a Mi nn 462173 0345-02-09 2014-04-02 3 Month [facility] [place] 9a7db 67e-d [facility] 13:30:00 13:30:00 Follow-Up r Specialties j57-5qd7 -9 l 82e-wf7529 Mi nn y6439h 2014-04-02 2014-04-02 3 Month [facility] [place] 3915d 8d8-9 [facility] 13:30:00 13:30:00 Follow-Up r Specialties 0de-4055 -8 l bc9-fc3ef2 Mi nn 246a9c 2014-04-02 2014-04-02 3 Month [facility] [place] 89f61 c72-c [facility] 13:30:00 13:30:00 Follow-Up r Specialties 2y7-8br6 -b l 5u9-1d50q8 Mi nn 9fa0a8 2014-04-02 2014-04-02 3 Month [facility] [place] 8d9e3 1cf-3 [facility] 13:30:00 13:30:00 Follow-Up r Specialties u15-64t5 -a l ac6-b54b94 Mi nn 17a0ef 2014-04-02 2014-04-02 3 Month [facility] [place] efba4 561-b [facility] 13:30:00 13:30:00 Follow-Up r Specialties k46-8q4p -9 l 868-e213d7 Mi nn [id number] 5254-02-09 2014-04-02 3 Month [facility] [place] c6d87 c50-5 [facility] 13:30:00 13:30:00 Follow-Up r Specialties bbd-42d7 -b l z56-z04v31 Mi nn f2edd5 2014-04-02 2014-04-02 3 Month [facility] [place] cf526 ed1-4 [facility] 13:30:00 13:30:00 Follow-Up r Specialties 12a-4c4a -b l 477-efea88 [facility] nn 2ddd27 2014-04-02 2014-04-02 3 Month [place] [place] 2891b 0e3-e [facility] 13:30:00 13:30:00 Follow-Up r Specialties p99-5937 -b l 361-840b8b [facility] nn def59c 2014-04-02 2014-04-02 3 Month [place] [place] 046b3 8e2-4 [facility] 13:30:00 13:30:00 Follow-Up r Specialties k85-8003 -b l 791-b0ba0d [facility] nn c78015 2014-04-02 2014-04-02 3 Month [facility] [place] fb1a3 69c-3 [facility] 13:30:00 13:30:00 Follow-Up r Specialties 085-4a6d -b l 64c-e016a8 [facility] nn f63b0a 2014-04-02 2014-04-02 3 Month nullFlavo [place] [address] 3ee-e Memoria 13:30:00 13:30:00 Follow-Up r Specialties t9r-5hcd -b l 597-533af0 [facility] nn 2p038k 2014-04-02 2014-04-02 3 Month nullFlavo [place] 82a16 652-c Memoria 13:30:00 13:30:00 Follow-Up r Specialties 581-4a67 -b l x63-1r4154 [facility] nn 25fa8c 2014-04-02 2014-04-02 3 Month nullFlavo [place] 5ecc7 feb-7 Memoria 13:30:00 13:30:00 Follow-Up r Specialties dff-4ae4 -8 l 208-6143df [facility] nn 598df8 2014-04-02 2014-04-02 3 Month nullFlavo [place] ca702 ed0-4 Memoria 13:30:00 13:30:00 Follow-Up r Specialties eb2-4d44 -a l 54b-0x2199 [facility] nn pi9212 2014-04-02 2014-04-02 3 Month nullFlavo [place] 48fc9 4f0-f Memoria 13:30:00 13:30:00 Follow-Up r Specialties bb1-42fd -a l b53-p0pd3b [facility] nn n3082l 2014-04-02 2014-04-02 3 Month nullFlavo [place] 20def 136-4 Memoria 13:30:00 13:30:00 Follow-Up r Specialties 2q2-1nqw -9 l 8j1-82t78f Mi nn d5d37d 2014-04-02 2014-04-02 3 Month nullFlavo [place] fc412 71a-e Memoria 13:30:00 13:30:00 Follow-Up r Specialties 194-4fb9 -b l 330-335457 [facility] nn e926af 2014-04-02 2014-04-02 3 Month nullFlavo [place] 6d28a 5ae-b Memoria 13:30:00 13:30:00 Follow-Up r Specialties 220-4e86 -8 l 5v1-52zh6y [facility] nn 32669b 2014-04-02 2014-04-02 3 Month nullFlavo [place] 9881d 0b8-1 Memoria 13:30:00 13:30:00 Follow-Up r Specialties u76-3224 -8 l da4-afadbf [facility] nn 42e58f 2014-04-02 2014-04-02 3 Month nullFlavo [place] bbb1b fe1-9 Memoria 13:30:00 13:30:00 Follow-Up r Specialties y84-8t4g -b l 3o8-l8634p [facility] nn 052117 9554-02-09 2014-04-02 3 Month nullFlavo [place] 66d42 828-5 Memoria 13:30:00 13:30:00 Follow-Up r Specialties fd0-4cdd -9 l 6ed-5b19fc [facility] nn 39e10f 2014-04-02 2014-04-02 3 Month nullFlavo [place] 2b6cb 18e-d Memoria 13:30:00 13:30:00 Follow-Up r Specialties 90f-4020 -b l 82f-05l000 [facility] nn 597f31 2014-04-02 2014-04-02 3 Month nullFlavo [place] 0159b 244-f Memoria 13:30:00 13:30:00 Follow-Up r Specialties 41d-421d -8 l v8r-6c8002 Mi nn 0eo888 2014-04-02 2014-04-02 3 Month nullFlavo [place] 3915d 8d8-9 Memoria 13:30:00 13:30:00 Follow-Up r Specialties 0de-4055 -8 l bc9-fc3ef2 Mi nn 246a9c 2014-04-02 2014-04-02 3 Month nullFlavo [place] 9a7db 67e-d Memoria 13:30:00 13:30:00 Follow-Up r Specialties e28-2rc3 -9 l 82e-rz7224 Mi nn w4059d 2014-04-02 2014-04-02 3 Month nullFlavo [place] dbd34 42d-e Memoria 13:30:00 13:30:00 Follow-Up r Specialties h2r-9992 -a l 1bb-f3ad98 Mi nn 232be7 2014-04-02 2014-04-02 3 Month nullFlavo [place] 3cdd9 d0f-0 Memoria 13:30:00 13:30:00 Follow-Up r Specialties b69-87pd -a l 83d-8a5f3c Mi nn 8a23ca 2014-04-02 2014-04-02 3 Month nullFlavo [place] 89f61 c72-c Memoria 13:30:00 13:30:00 Follow-Up r Specialties 3h3-5zm7 -b l 0t7-6h67m9 Mi nn 9fa0a8 2014-04-02 2014-04-02 3 Month nullFlavo [place] da756 761-3 Memoria 13:30:00 13:30:00 Follow-Up r Specialties 83e-49fd -b l 090-00f13a Mi nn 813439 7897-02-09 2014-04-02 3 Month nullFlavo [place] cf526 ed1-4 Memoria 13:30:00 13:30:00 Follow-Up r Specialties 12a-4c4a -b l 477-efea88 Mi nn 2ddd27 2014-04-02 2014-04-02 3 Month nullFlavo [place] 2891b 0e3-e Memoria 13:30:00 13:30:00 Follow-Up r Specialties p27-9111 -b l 361-840b8b [facility] nn def59c 2014-04-02 2014-04-02 3 Month nullFlavo [place] 046b3 8e2-4 Memoria 13:30:00 13:30:00 Follow-Up r Specialties t85-7052 -b l 791-b0ba0d [facility] nn i65914 2014-04-02 2014-04-02 3 Month nullFlavo [place] 8d9e3 1cf-3 Memoria 13:30:00 13:30:00 Follow-Up r Specialties x13-53s9 -a l ac6-b54b94 [facility] nn 17a0ef 2014-04-02 2014-04-02 3 Month nullFlavo [place] 9d22e d1e-0 Memoria 13:30:00 13:30:00 Follow-Up r Specialties 300-43a0 -b l 646-e8bf98 [facility] nn 786704 7525-02-09 2014-04-02 3 Month nullFlavo [place] fb1a3 69c-3 Memoria 13:30:00 13:30:00 Follow-Up r Specialties 085-4a6d -b l 64c-e016a8 [facility] nn f63b0a 2014-04-02 2014-04-02 3 Month nullFlavo [place] efba4 561-b Memoria 13:30:00 13:30:00 Follow-Up r Specialties e45-0y3o -9 l 868-e213d7 [facility] nn 095364 2797-02-09 2014-04-02 3 Month nullFlavo [place] c6d87 c50-5 Memoria 13:30:00 13:30:00 Follow-Up r Specialties bbd-42d7 -b l e36-a82e42 [facility] nn f2edd5 2014-04-02 2014-04-02 3 Month nullFlavo [place] [address] 3ee-e Memoria 13:30:00 13:30:00 Follow-Up r Specialties z9u-9vwj -b l 597-533af0 [facility] nn 4q925d 2014-04-02 2014-04-02 Outpatient [facility] [place] 2534 20 eClinic 08:30:00 08:30:00 [facility] 2014-03-01 2014-03-01 rq rx nullFlavo [place] dbaa1 138-1 Memoria 20:02:00 20:02:00 refill/ r Specialties k67-6kip-7 l levemir 94e-b08a5e Mi nn 63v147 2014-03-01 2014-03-01 rq rx nullFlavo [place] 8e559 5d9-e Memoria 20:02:00 20:02:00 refill/ r Specialties ea3-46fb-b l levemir 056-cf6e47 Mi nn pte054 2014-03-01 2014-03-01 rq rx nullFlavo [place] 770c3 5f4-0 Memoria 20:02:00 20:02:00 refill/ r Specialties 6r2-2282-g l levemir v41-961b09 Mi nn 82h943 2014-03-01 2014-03-01 rq rx nullFlavo [place] 822a3 42f-9 Memoria 20:02:00 20:02:00 refill/ r Specialties 011-4a36-a l levemir ec7-90846c Mi nn q2639w 2014-03-01 2014-03-01 rq rx nullFlavo [place] 02226 7bb-3 Memoria 20:02:00 20:02:00 refill/ r Specialties db3-4ea1-8 l levemir ae1-0d7d2e Mi nn 162e34 2014-03-01 2014-03-01 rq rx nullFlavo [place] ca67e f30-f Memoria 20:02:00 20:02:00 refill/ r Specialties b5h-5182-3 l levemir 3j8-v35925 Mi nn 9w2277 2014-03-01 2014-03-01 rq rx nullFlavo [place] fcf8a d42-3 Memoria 20:02:00 20:02:00 refill/ r Specialties 671-4a77-8 l levemir 7dd-j5677d Mi nn ep658b 2014-03-01 2014-03-01 rq rx nullFlavo [place] 37188 4d7-0 Memoria 20:02:00 20:02:00 refill/ r Specialties 0e6-9vxo-4 l levemir t5w-35t018 Mi nn 08043b 2014-03-01 2014-03-01 rq rx nullFlavo [place] f787a 371-4 Memoria 20:02:00 20:02:00 refill/ r Specialties h64-82q1-9 l levemir 721-7bc6be [facility] nn 6a0bb0 2014-03-01 2014-03-01 rq rx nullFlavo [place] 84de0 cb8-6 Memoria 20:02:00 20:02:00 refill/ r Specialties 467-4182-8 l levemir w2l-sev0fb [facility] nn d579e6 2014-03-01 2014-03-01 rq rx nullFlavo [place] 064e7 bfd-6 Memoria 20:02:00 20:02:00 refill/ r Specialties 984-4a58-b l levemir 9t5-9465q2 [facility] nn 49d945 2014-03-01 2014-03-01 rq rx nullFlavo [place] f8631 1e7-a Memoria 20:02:00 20:02:00 refill/ r Specialties ddf-46e2-a l levemir v78-4poz63 [facility] nn 32f2bb 2014-03-01 2014-03-01 rq rx nullFlavo [place] ad95a bc2-3 Memoria 20:02:00 20:02:00 refill/ r Specialties 75e-4b29-b l levemir 0o0-142734 [facility] nn e169f9 2014-03-01 2014-03-01 rq rx nullFlavo [place] 60a6b 859-f Memoria 20:02:00 20:02:00 refill/ r Specialties 211-4c45-8 l levemir 7ae-5047b7 [facility] nn ec23a6 2014-03-01 2014-03-01 rq rx nullFlavo [place] ba36c 0c0-2 Memoria 20:02:00 20:02:00 refill/ r Specialties 261-4487-b l levemir 8ec-47w714 [facility] nn d6aa63 2014-03-01 2014-03-01 rq rx nullFlavo [place] 73b7d 8fd-5 Memoria 20:02:00 20:02:00 refill/ r Specialties 5r8-04ed-q l levemir 11e-9cbab0 Mi nn j8y869 2014-03-01 2014-03-01 rq rx nullFlavo [place] a6a64 7c0-0 Memoria 20:02:00 20:02:00 refill/ r Specialties a24-01nx-j l levemir fcc-279bb7 Mi nn 4befdb 2014-03-01 2014-03-01 rq rx nullFlavo [place] 8330f 029-a Memoria 20:02:00 20:02:00 refill/ r Specialties 980-4618-8 l levemir cf2-16b6d4 Mi nn 4665ae 2014-03-01 2014-03-01 rq rx nullFlavo [place] 5ed9f a11-c Memoria 20:02:00 20:02:00 refill/ r Specialties fa7-44bf-b l levemir 884-3cc1a9 Mi nn g67425 2014-03-01 2014-03-01 rq rx nullFlavo [place] 84d17 10d-6 Memoria 20:02:00 20:02:00 refill/ r Specialties d58-5q53-1 l levemir 869-2738c7 Mi nn db8a83 2014-03-01 2014-03-01 rq rx nullFlavo [place] 4e907 1b1-b Memoria 20:02:00 20:02:00 refill/ r Specialties 0ba-4b85-a l levemir 3x7-6mkhkn Mi nn e6f1de 2014-03-01 2014-03-01 rq rx nullFlavo [place] 10d69 786-1 Memoria 20:02:00 20:02:00 refill/ r Specialties 972-41c8-8 l levemir o26-x9p985 Mi nn oxh334 2014-03-01 2014-03-01 rq rx nullFlavo [place] 1b858 b06-4 Memoria 20:02:00 20:02:00 refill/ r Specialties t3h-3pz8-4 l levemir 296-e491df Mi nn 26ed97 2014-03-01 2014-03-01 rq rx nullFlavo [place] 15972 0bd-a Memoria 20:02:00 20:02:00 refill/ r Specialties x26-40a9-5 l levemir 177-44ff28 Mi nn 8d26ae 2014-03-01 2014-03-01 rq rx nullFlavo [place] 7858b c7f-a Memoria 20:02:00 20:02:00 refill/ r Specialties 57f-4c62-8 l levemir 1db-a784c6 Mi nn 66r273 2014-03-01 2014-03-01 rq rx nullFlavo [place] dbaa1 138-1 Mem[facility] 20:02:00 20:02:00 refill/ r Specialties q57-0qnl-3 l levemir 94e-b08a5e Mi nn 73i169 2014-03-01 2014-03-01 rq rx nullFlavo [place] 822a3 42f-9 Memoria 20:02:00 20:02:00 refill/ r Specialties 011-4a36-a l levemir ec7-47784k Mi nn j6489y 2014-03-01 2014-03-01 rq rx nullFlavo [place] 76491 7bb-3 Memoria 20:02:00 20:02:00 refill/ r Specialties db3-4ea1-8 l levemir ae1-0d7d2e Mi nn 162e34 2014-03-01 2014-03-01 rq rx nullFlavo [place] 8e559 5d9-e Memoria 20:02:00 20:02:00 refill/ r Specialties ea3-46fb-b l levemir 056-cf6e47 Mi nn hih291 2014-03-01 2014-03-01 rq rx nullFlavo [place] 84de0 cb8-6 Memoria 20:02:00 20:02:00 refill/ r Specialties 467-4182-8 l levemir p5i-uoe5ue Mi nn d579e6 2014-03-01 2014-03-01 rq rx nullFlavo [place] f787a 371-4 Memoria 20:02:00 20:02:00 refill/ r Specialties u45-77t3-1 l levemir 721-7bc6be Mi nn 6a0bb0 2014-03-01 2014-03-01 rq rx nullFlavo [place] 770c3 5f4-0 Memoria 20:02:00 20:02:00 refill/ r Specialties 1s1-7509-n l levemir m85-169j89 [facility] nn 49q883 2014-03-01 2014-03-01 rq rx nullFlavo [place] 064e7 bfd-6 Memoria 20:02:00 20:02:00 refill/ r Specialties 984-4a58-b l levemir 0y2-6103o8 [facility] nn 76o469 2014-03-01 2014-03-01 rq rx nullFlavo [place] fcf8a d42-3 Memoria 20:02:00 20:02:00 refill/ r Specialties 671-4a77-8 l levemir 7dd-w5073c [facility] nn pr506g 2014-03-01 2014-03-01 rq rx nullFlavo [place] ca67e f30-f Memoria 20:02:00 20:02:00 refill/ r Specialties o0n-1463-9 l levemir 2z3-u58657 [facility] nn 8m6561 2014-03-01 2014-03-01 rq rx nullFlavo [place] 18947 4d7-0 Memoria 20:02:00 20:02:00 refill/ r Specialties 2m6-1kgr-2 l levemir q8y-96e947 [facility] nn 46013s 2014-03-01 2014-03-01 rq rx nullFlavo [place] f8631 1e7-a Memoria 20:02:00 20:02:00 refill/ r Specialties ddf-46e2-a l levemir u92-7jpp59 [facility] nn 32f2bb 2014-03-01 2014-03-01 rq rx nullFlavo [place] 8330f 029-a Memoria 20:02:00 20:02:00 refill/ r Specialties 980-4618-8 l levemir cf2-16b6d4 [facility] nn 4665ae 2014-03-01 2014-03-01 rq rx nullFlavo [place] ba36c 0c0-2 Memoria 20:02:00 20:02:00 refill/ r Specialties 261-4487-b l levemir 8ec-29a485 [facility] nn d6aa63 2014-03-01 2014-03-01 rq rx nullFlavo [place] 84d17 10d-6 Memoria 20:02:00 20:02:00 refill/ r Specialties h62-7m40-3 l levemir 869-2738c7 Mi nn db8a83 2014-03-01 2014-03-01 rq rx nullFlavo [place] 73b7d 8fd-5 Memoria 20:02:00 20:02:00 refill/ r Specialties 6t9-12py-o l levemir 11e-9cbab0 Mi nn l8z142 2014-03-01 2014-03-01 rq rx nullFlavo [place] 60a6b 859-f Memoria 20:02:00 20:02:00 refill/ r Specialties 211-4c45-8 l levemir 7ae-5047b7 Mi nn ec23a6 2014-03-01 2014-03-01 rq rx nullFlavo [place] a6a64 7c0-0 Memoria 20:02:00 20:02:00 refill/ r Specialties a56-58cr-i l levemir fcc-279bb7 Mi nn 4befdb 2014-03-01 2014-03-01 rq rx nullFlavo [place] 1b858 b06-4 Memoria 20:02:00 20:02:00 refill/ r Specialties b0f-0ww7-4 l levemir 296-e491df Mi nn 26ed97 2014-03-01 2014-03-01 rq rx nullFlavo [place] 4e907 1b1-b Memoria 20:02:00 20:02:00 refill/ r Specialties 0ba-4b85-a l levemir 5r5-3yqhpq Mi nn e6f1de 2014-03-01 2014-03-01 rq rx nullFlavo [place] 5ed9f a11-c Memoria 20:02:00 20:02:00 refill/ r Specialties fa7-44bf-b l levemir 884-3cc1a9 Im nn q62757 2014-03-01 2014-03-01 rq rx nullFlavo [place] ad95a bc2-3 Memoria 20:02:00 20:02:00 refill/ r Specialties 75e-4b29-b l levemir 9x6-385654 Mi nn e169f9 2014-03-01 2014-03-01 rq rx nullFlavo [place] 10d69 786-1 Memoria 20:02:00 20:02:00 refill/ r Specialties 972-41c8-8 l levemir b00-c9i801 [facility] nn pgk949 2014-03-01 2014-03-01 rq rx nullFlavo [place] 7858b c7f-a Memoria 20:02:00 20:02:00 refill/ r Specialties 57f-4c62-8 l levemir 1db-a784c6 [facility] nn 03w461 2014-03-01 2014-03-01 rq rx nullFlavo [place] 19836 0bd-a Memoria 20:02:00 20:02:00 refill/ r Specialties h21-25x5-9 l levemir 177-44ff28 [facility] nn 8d26ae 2014-03-01 2014-03-01 rq rx nullFlavo [place] 8c795 141-4 Memoria 19:02:00 19:02:00 refill/ r Specialties 8cb-4f7d-9 l levemir 7dc-c0e5a1 [facility] nn 295ab1 2014-03-01 2014-03-01 rq rx nullFlavo [place] 8a8a1 76f-c Memoria 19:02:00 19:02:00 refill/ r Specialties m78-9pz9-3 l levemir b4r-503u7e [facility] nn a5fcd8 2014-03-01 2014-03-01 rq rx nullFlavo [place] e166f 1d7-b Memoria 19:02:00 19:02:00 refill/ r Specialties f4f-1109-y l levemir 637-bum807 [facility] nn e54e40 2014-03-01 2014-03-01 rq rx nullFlavo [place] 42128 5bc-6 Memoria 19:02:00 19:02:00 refill/ r Specialties t8v-6154-0 l levemir d9c-oc4ud1 Mi nn s1d197 2014-03-01 2014-03-01 rq rx nullFlavo [place] 20c64 c1a-d Memoria 19:02:00 19:02:00 refill/ r Specialties t69-29ch-8 l levemir 01f-b593d6 Mi nn nbu178 2014-03-01 2014-03-01 rq rx nullFlavo [place] 9d35e 4cc-a Memoria 19:02:00 19:02:00 refill/ r Specialties 14a-4004-9 l levemir ca9-cfe90c Mi nn 92c3c5 2014-03-01 2014-03-01 rq rx nullFlavo [place] 58390 dd3-2 Memoria 19:02:00 19:02:00 refill/ r Specialties 750-480c-a l levemir 00a-5c06b5 Mi nn 40fbd2 2014-03-01 2014-03-01 rq rx nullFlavo [place] f9370 6f6-a Memoria 19:02:00 19:02:00 refill/ r Specialties 707-4849-b l levemir ce6-f3bde7 Mi nn ae64ce 2014-03-01 2014-03-01 rq rx nullFlavo [place] dffd8 404-2 Memoria 19:02:00 19:02:00 refill/ r Specialties 8ee-42f3-b l levemir 716-52ef19 Mi nn 3d57e5 2014-03-01 2014-03-01 rq rx nullFlavo [place] 3bea2 16a-0 Memoria 19:02:00 19:02:00 refill/ r Specialties 9z4-25d6-r l levemir y5z-636h4p Mi nn 700abf 2014-03-01 2014-03-01 rq rx nullFlavo [place] 08fd2 3b7-3 Memoria 19:02:00 19:02:00 refill/ r Specialties t30-927z-f l levemir 433-629821 Mi nn aq1784 2014-03-01 2014-03-01 rq rx nullFlavo [place] 401b5 2f3-4 Memoria 19:02:00 19:02:00 refill/ r Specialties 25a-42f6-8 l levemir 802-c41c7b Mi nn 10z137 2014-03-01 2014-03-01 rq rx nullFlavo [place] 96110 7a5-6 Memoria 19:02:00 19:02:00 refill/ r Specialties 6ab-43ed-8 l levemir 481-6i735s Mi nn 7544c0 2014-03-01 2014-03-01 rq rx nullFlavo [place] 50f28 c3b-4 Memoria 19:02:00 19:02:00 refill/ r Specialties 41f-4784-a l levemir 5ed-93h087 Mi nn 2412e5 2014-03-01 2014-03-01 rq rx nullFlavo [place] 945e2 c64-0 Memoria 19:02:00 19:02:00 refill/ r Specialties 36c-4b1a-b l levemir 6d7-nj62n0 Mi nn b16ee7 2014-03-01 2014-03-01 rq rx nullFlavo [place] c511f 62e-6 [facility] 19:02:00 19:02:00 refill/ r Specialties a2o-8d68-u l levemir d43-bi5g8u Mi nn 8f142g 2014-03-01 2014-03-01 rq rx nullFlavo [place] 5dd7f 888-b Mem[facility] 19:02:00 19:02:00 refill/ r Specialties 1ec-4b94-8 l levemir 292-01db0d Mi nn f50c6d 2014-03-01 2014-03-01 rq rx nullFlavo [place] 46774 544-9 [facility] 19:02:00 19:02:00 refill/ r Specialties 328-4b2e-8 l levemir f9h-h66i5h Mi nn 99b2fd 2014-03-01 2014-03-01 rq rx nullFlavo [place] 1c989 5cc-0 Memoria 19:02:00 19:02:00 refill/ r Specialties 7a6-5ei4-w l levemir 4ea-ad98e3 Mi nn 1m3015 2014-03-01 2014-03-01 rq rx nullFlavo [place] 28b5e 79c-b Mem[facility] 19:02:00 19:02:00 refill/ r Specialties 8z2-29j3-w l levemir 4b6-k16436 Im nn gu908y 2014-03-01 2014-03-01 rq rx nullFlavo [place] d51e1 a9e-5 [facility] 19:02:00 19:02:00 refill/ r Specialties v42-5n5c-z l levemir be1-683275 Mi nn 06c4a3 2014-03-01 2014-03-01 rq rx nullFlavo [place] b0d65 f84-b [facility] 19:02:00 19:02:00 refill/ r Specialties d3f-26t1-1 l levemir 99f-3276c1 Mi nn ddcb7a 2014-03-01 2014-03-01 rq rx nullFlavo [place] 53d9f 71c-8 [facility] 19:02:00 19:02:00 refill/ r Specialties 3f6-6312-v l levemir 0eb-969026 Mi nn 85b1ee 2014-03-01 2014-03-01 rq rx nullFlavo [place] [address] b94-d [facility] 19:02:00 19:02:00 refill/ r Specialties 146-49dc-a l levemir 667-6u1055 Mi nn 3db54d 2014-03-01 2014-03-01 rq rx nullFlavo [place] 68f63 0ba-f [facility] 19:02:00 19:02:00 refill/ r Specialties 9fd-46a9-9 l levemir q6v-9boxmt Mi nn 2db00c 2014-03-01 2014-03-01 rq rx nullFlavo [place] c5f63 a10-9 [facility] 19:02:00 19:02:00 refill/ r Specialties a57-83h0-c l levemir 6e8-kz090j Mi nn f784af 2014-03-01 2014-03-01 rq rx nullFlavo [place] 360d7 5eb-0 [facility] 19:02:00 19:02:00 refill/ r Specialties 98c-4fba-8 l levemir j0p-35m18t Mi nn dd81ec 2014-03-01 2014-03-01 rq rx nullFlavo [place] 08fd2 3b7-3 [facility] 19:02:00 19:02:00 refill/ r Specialties l59-425a-c l levemir 433-846367 [facility] nn pe0575 2014-03-01 2014-03-01 rq rx nullFlavo [place] 3bea2 16a-0 [facility] 19:02:00 19:02:00 refill/ r Specialties 0j0-89e9-c l levemir h2r-562v8v Mi nn 700abf 2014-03-01 2014-03-01 rq rx nullFlavo [place] f9370 6f6-a [facility] 19:02:00 19:02:00 refill/ r Specialties 707-4849-b l levemir ce6-f3bde7 [facility] nn ae64ce 2014-03-01 2014-03-01 rq rx nullFlavo [place] 50f28 c3b-4 Mem[facility] 19:02:00 19:02:00 refill/ r Specialties 41f-4784-a l levemir 5ed-77e774 [facility] nn 2412e5 2014-03-01 2014-03-01 rq rx nullFlavo [place] [address]32 544-9 [facility] 19:02:00 19:02:00 refill/ r Specialties 328-4b2e-8 l levemir p2k-i65g1q Mi nn 99b2fd 2014-03-01 2014-03-01 rq rx nullFlavo [place] 5dd7f 888-b [facility] 19:02:00 19:02:00 refill/ r Specialties 1ec-4b94-8 l levemir 292-01db0d Im nn f50c6d 2014-03-01 2014-03-01 rq rx nullFlavo [place] 401b5 2f3-4 [facility] 19:02:00 19:02:00 refill/ r Specialties 25a-42f6-8 l levemir 802-c41c7b Mi nn 58n230 2014-03-01 2014-03-01 rq rx nullFlavo [place] [address] 7a5-6 [facility] 19:02:00 19:02:00 refill/ r Specialties 6ab-43ed-8 l levemir 481-8z695t Mi nn 7544c0 2014-03-01 2014-03-01 rq rx nullFlavo [place] 1c989 5cc-0 [facility] 19:02:00 19:02:00 refill/ r Specialties 2n9-7qb5-h l levemir 4ea-ad98e3 Mi nn 7d3146 2014-03-01 2014-03-01 rq rx nullFlavo [place] c511f 62e-6 [facility] 19:02:00 19:02:00 refill/ r Specialties g3g-8p15-h l levemir x60-hv2m0b Mi nn 1l503o 2014-03-01 2014-03-01 rq rx nullFlavo [place] 20c64 c1a-d [facility] 19:02:00 19:02:00 refill/ r Specialties f29-45qd-9 l levemir 01f-b593d6 Mi nn pyr075 2014-03-01 2014-03-01 rq rx nullFlavo [place] 53d9f 71c-8 [facility] 19:02:00 19:02:00 refill/ r Specialties 7p0-2841-o l levemir 0eb-954203 Mi nn 85b1ee 2014-03-01 2014-03-01 rq rx nullFlavo [place] 15404 b94-d Mem[facility] 19:02:00 19:02:00 refill/ r Specialties 146-49dc-a l levemir 667-7p1956 Mi nn 3db54d 2014-03-01 2014-03-01 rq rx nullFlavo [place] 68f63 0ba-f [facility] 19:02:00 19:02:00 refill/ r Specialties 9fd-46a9-9 l levemir q3k-1sykou Mi nn 2db00c 2014-03-01 2014-03-01 rq rx nullFlavo [place] 28b5e 79c-b Mem[facility] 19:02:00 19:02:00 refill/ r Specialties 4e3-48l8-t l levemir 5n2-l64303 Mi nn ad900p 2014-03-01 2014-03-01 rq rx nullFlavo [place] 945e2 c64-0 [facility] 19:02:00 19:02:00 refill/ r Specialties 36c-4b1a-b l levemir 9a0-ar84k5 Mi nn b16ee7 2014-03-01 2014-03-01 rq rx nullFlavo [place] c5f63 a10-9 [facility] 19:02:00 19:02:00 refill/ r Specialties k04-50j3-n l levemir 7q6-rc619x Mi nn f784af 2014-03-01 2014-03-01 rq rx nullFlavo [place] d51e1 a9e-5 [facility]oria 19:02:00 19:02:00 refill/ r Specialties g17-7g5e-z l levemir be1-291757 Mi nn 06c4a3 2014-03-01 2014-03-01 rq rx nullFlavo [place] b0d65 f84-b Mem[facility] 19:02:00 19:02:00 refill/ r Specialties b3i-61v5-3 l levemir 99f-3276c1 Mi nn ddcb7a 2014-03-01 2014-03-01 rq rx nullFlavo [place] 360d7 5eb-0 Memoria 19:02:00 19:02:00 refill/ r Specialties 98c-4fba-8 l levemir w1m-80u22o Mi nn dd81ec 2014-03-01 2014-03-01 rq rx nullFlavo [place] 8c795 141-4 Memoria 19:02:00 19:02:00 refill/ r Specialties 8cb-4f7d-9 l levemir 7dc-c0e5a1 Mi nn 295ab1 2014-03-01 2014-03-01 rq rx nullFlavo [place] 9d35e 4cc-a Memoria 19:02:00 19:02:00 refill/ r Specialties 14a-4004-9 l levemir ca9-cfe90c Mi nn 92c3c5 2014-03-01 2014-03-01 rq rx nullFlavo [place] 8a8a1 76f-c [facility] 19:02:00 19:02:00 refill/ r Specialties p29-8zo6-1 l levemir k2b-214x5e Mi nn a5fcd8 2014-03-01 2014-03-01 rq rx nullFlavo [place] e166f 1d7-b [facility] 19:02:00 19:02:00 refill/ r Specialties l9e-6857-x l levemir 637-ieg117 Mi nn [id number] 2014-03-01 2014-03-01 rq rx nullFlavo [place] [address] 5bc-6 Mem[facility] 19:02:00 19:02:00 refill/ r Specialties l2m-5749-9 l levemir w1i-tl1yt8 Mi nn e8s342 2014-03-01 2014-03-01 rq rx nullFlavo [place] 16786 dd3-2 [facility] 19:02:00 19:02:00 refill/ r Specialties 750-480c-a l levemir 00a-5c06b5 Mi nn 40fbd2 2014-03-01 2014-03-01 rq rx nullFlavo [place] dffd8 404-2 [facility] 19:02:00 19:02:00 refill/ r Specialties 8ee-42f3-b l levemir [id number] [facility] nn 3d57e5 2014-03-01 2014-03-01 Outpatient Clear [place] 2740 88 eClinic 14:02:00 14:02:00 [facility] es Results Test Description Test Time Test Comments Results Result Sour e Comments BREAST ULTRASOUND 2021-07-09 BILATERAL 14:00:52 Name: Esmer : 1940 Sex: F - DIAG MAMM BILATERAL BARBARA CAD DIGITALBILATERAL DIGITAL DIAGNOSTIC MAMMOGRAM 3D/2D WITH CAD: 07/09/2021LINICAL: Left breast pain. Digital breast tomosynthesis was performed in addition to routine CC and MLO views. Current mammographic images were evaluated by [employer] CAD (computer-aided detection) software. Comparison is made to exams dated 05/02/2020 mammogram, 01/27/2019 mammogram, and 12/12/2015 mammogram - [facility]-. There are scattered fibroglandular tissues in both breasts. Stable subcentimeter mass in the left upper outer quadrant and bilateral calcifications, benign. No suspicious mass, architectural distortion, malignant type calcification, or lymph node abnormality detected. INCOMPLETE: ADDITIONAL IMAGING EVALUATION NEEDEDThere is no mammographic evidence of malignancy. Bilateral survey ultrasound to follow.- BREAST ULTRASOUND BILATERALULTRASOUND OF BOTH BREASTS: 07/09/2021omparison is made to exams dated 05/02/2020 mammogram, 01/27/2019 mammogram, and 12/12/2015 mammogram - [facility]-. Color flow and real-time ultrasound [...] 14:00:52 Entry: - 07/09/2021 14:41:28Imaging Technologist: Carolina Serrato , [facility]-letter sent: BIRADS 1-2 Combo FU Letter Mammogram [...] views. Current mammographic images were evaluated by [employer] CAD (computer-aided detection) software. Comparison is made to exams dated 05/02/2020 mammogram, 01/27/2019 mammogram, and [facility] There are scattered fibroglandular tissues in both breasts. Stable subcentimeter mass in the left upper outer quadrant and bilateral calcifications, benign. No suspicious mass, architectural distortion, malignant type calcification, or lymph node abnormality detected. INCOMPLETE: ADDITIONAL IMAGING EVALUATION NEEDEDThere is no mammographic evidence of malignancy. Bilateral survey ultrasound to follow.- BREAST ULTRASOUND BILATERALULTRASOUND OF BOTH BREASTS: 07/09/2021omparison is made to exams dated 05/02/2020 mammogram, 01/27/2019 mammogram, and 12[facility]12/[facility]. 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 [facility] CBC W/AUTO [id number] 07:43:00 Test Item Value Reference Range Interpretation [...] (test code NO = MDIFF) CBC W/AUTO [id number] 07:14:00 Test Item Value Reference Range Interpretation [...] - XR KNEE 1 OR 2 V [id number] 14:19:00 [facility] : 1940 Sex: F FAX: Carol Rodriguez [phone] [place]: St: ADM FAX: Geo Swann APR [phone] Name: DEEPALI MARRERO [facility] : 1940 Age/S: 80/F [address] [place] [address] Unit #: [id number] Loc: [place] [address] Phys: Geo Swann APRNNP Acct: [id number] Dis Date: Status: ADM IN PHONE #: [phone] Exam Date: 08/28/2020 0851 FAX #: [phone] Reason: swelling, pain Report Has Been Amended EXAMS: CPT CODE: [id number] XR KNEE 1 OR 2 V LT 55632 Addendum - 08/28/2020 FQCQTW0208/28/2020 ADDENDUM: [id number] RAD/KNEELT Additional lateral radiograph of the left [...] swelling COMPARISON: 03/02/2017 FINDINGS: AP and lateral viewsof the left knee were obtained. Clothing artifact partially obscures the suprapatellar region in thelateral projection. Sensitivity for joint effusion is limited. The soft tissues are otherwise unremarkable. There is no fracture or dislocation. Osteophyte formation medial and patellofemoral compartments. Joint space narrowing evident in the medial compartment. Chondrocalcinosis of the menisci. Vascular calcifications noted. COMMENTS: If there is further concern, follow-up radiographs, CT or MRI maybe obtained for complete assessment. IMPRESSION: 1. Limited exam. Sensitivity for joint effusion maybe diminished. Repeat lateral projection is planned with an addendum report to follow. 2. Osteoarthritis and chondrocalcinosis. PAGE 1 Signed Report (CONTINUED) FAX: Kirsten EliLaciCarol R [phone] [place]: St: ADM FAX: Geo Swann [facility] [phone] Name: ESMER MARRERO [facility] : 1940 Age/S: 80/F [address] [place] [address] Unit #: [id number] Loc: [place] [address] Phys: Azucena Swann [facility] Acct: [id number] Dis Date: Status: ADM IN PHONE #: [phone] Exam Date: 08/28/2020 0851 FAX #: [phone] Reason: swelling, pain Report Has Been Amended EXAMS: CPT CODE: [id number] XR KNEE 1 OR 2 V LT 21313 (Continued) SL: [id number] at 0904 Reported and signed by: Mitul Shafer M.D. CC: Carol Mota DO; Geo Swann Technologist: RT Lina(Wil) Trnmenas Date/Time/By: 08/28/2020(903) : By: Delfina Orig Print D/T: S: 08/28/2020 (906) PAGE 2 Signed ReportURIC [id number] 10:32:00 Test Item Value Reference Range Interpretation Comments URIC ACID (test code = URIC) 7.9 mg/dL 2.6-7.2 H - DUP VEIN UNI/[id number] 09:57:00 [facility] : 1940 Sex: F Name: ESMER MARRERO [facility] : 1940 Age/S: 80 / F [address] [place] [address] Unit #: [id number] Loc: [place] [address] Phys: Geo Swann Acct: [id number] Dis Date: Status: REG ER PHONE #: [phone] Exam Date: 08/28/2020 0951 FAX #: [phone] Reason: lle swelling, pain EXAMS: CPT CODE: [id number] DUP VEIN UNI/LTD 73150 PROCEDURE: UNILATERAL LOWER EXTREMITY VENOUS ULTRASOUND INDICATION: Left lower extremity swelling and pain. COMPARISON: None. TECHNIQUE: Sonographic evaluation of the left lower extremity veins was performed using high resolution B-mode, pulse and color Doppler imaging. FINDINGS: The common femoral, femoral, popliteal and visualized calf v eins are patent. Normal venous waveforms. The saphenofemoral junction is unremarkable. There is mildsubcutaneous edema involving the left calf. IMPRESSION: No deep venous thrombosis. SL: [id number] at 0957 Reported and signedby: Sang Wade M.D. CC: Carol QUINN [facility] Technologist: Kathy Torres RDMS(Logan)() Trnscb Date/Time: 08/28/2020 (0957) [email or web address] Orig Print D/T: S: 08/28/2020 (1000) Probe: PAGE 1 Signed ReportCBC W/AUTO [id number] 09:17:00 Test Item Value Reference Range Interpretation [...] (test code NO = MDIFF) SED RATE [id number] 09:17:00 Test Item Value Reference Range Interpretation Comments SED RATE FROILAN (test code = 78 mm/hr 0-20 H SEDW) - XR KNEE 1 OR 2 V [id number] 09:04:00 [facility] : 1940 Sex: F FAX: Kirsten PedersenkAngela Carol Aguero Wil [phone] [place]: St: REG FAX: Geo Swann APR [phone] Name: DEEPALI MARRERO [facility] [place] : 1940 Age/S: 80/F [address] [place] [address] Unit #: [id number] Loc: [place] [address] Phys: Geo Swann APRNNP Acct: [id number] Dis Date: Status: REG ER PHONE #: [phone] Exam Date: 08/28/2020 0851 FAX #: [phone] Reason: swelling, pain EXAMS: CPT CODE: [id number] XR KNEE 1 OR 2 V 52459 PROCEDURE: Left knee 2 views INDICATION: swelling, [...] to follow. 2. Osteoarthritis and chondrocalcinosis. SL: [id number] at 0904 Reported and signed by: Mitul Shafer M.D. CC: Carol Mota DO; Geo QUINN [facility] Technologist: RT Lina(R) Trnscrd Date/Time/By: 08/28/2020 (903) : By: Delfina Orig Print D/T: S: 08/28/2020 (906) PAGE 1 Signed ReportCOMPREHENSIVE METABOLIC [id number] 08:55:00 Test Item Value Reference Range Interpretation Comments SODIUM (test code = 138 mEq/L 134-147 N NA) POTASSIUM (test code = 4.8 mEq/L 3.4-5.0 N SPECI MEN 2+ K) HEMOLYZED.Resul ts known to be adv ersely affected by hem olysis are: Potassium Magnesium LDH Phosphorus Prev iously reported result : 4.8 mEq/LEdited by: EL on 08/28/20:860928 /09/11 0855: K previou sly reported as: 4. 8 mEq/L CHLORIDE (test [...] TOTAL (test code = ALKP) COMPREHENSIVE METABOLIC [id number] 08:55:00 Test Item Value Reference Range Interpretation [...] TOTAL (test code = ALKP) COMPREHENSIVE METABOLIC [id number] 08:53:00 Test Item Value Reference Range Interpretation [...] TOTAL (test code = ALKP) CBC W/AUTO [id number] 08:39:00 Test Item Value Reference Range Interpretation [...] (test code NO = MDIFF) SED RATE [id number] 08:39:00 Test Item Value Reference Range Interpretation Comments SED RATE ERGREN (test code = SEDW) mm/hr 0-20 SCR MAMM BILATERAL BARBARA CAD [id number] 11:51:26 Name: Esmer : 1940 Sex: F - SCR MAMM BILATERAL BARBARA CAD DIGITALBILATERAL DIGITAL SCREENING MAMMOGRAM 3D/2D WITH CAD: 05/02/2020LINICAL: Patient state she has injuries to both shoulders.Xwuliejjyqif6lo Covid vaccine 2 weeks ago Left armPatient with walker, can't stand forlong periods, difficult to position. Digital breast tomosynthesis was performed in addition to routine CC and MLO views. Current mammographic images were evaluated by either a TRUE linkswearP M-Vu or a PinkelStar ImageOptima Diagnosticscker CAD (computer aided detection system). Comparison is made to exams dated 01/27/2019 mammogram, 12/12/2015 mammogram, and 09/03/2014 mammogram - [facility] There are scatteredfibroglandular tissues in both breasts. There are benign calcifications in both breasts. There also is a benign intramammary node in the left breast. No suspicious mass, architectural distortion, malignant type calcification, or lymph node abnormality detected. Breast architecture is stable compared to prior exams.IMPRESSION: BENIGNThere is no mammographic evidence of malignancy. Resume annual screening mammography in one year. Bren Xiong M.D. sctelma/penrad:05/06/2020 11:51:26 [place]: Nathalie Cam , [facility]-letter sent: BIRADS 1-2 Normal Mammogram BI-RADS: 2 Benign SCR MAMM BILATERAL BARBARA CAD [id number] 08:53:40 - SCR MAMM BILATERAL BARBARA CAD DIGITALBILATERAL DIGITAL SCREENING MAMMOGRAM 3D/2D WITH CAD: 01/27/2019 CLINICAL: Asymptomatic. Digital breast tomosynthesis was performed in addition to routine CC and MLOviews. Current mammographic images were evaluated by either a DermApprovedCOMP M-Vu or a PinkelStar ImageOptima Diagnosticscker CAD (computer aided detection system). Comparison is made to exams dated 12/12/2015 mammogram, 09/03/2014 mammogram, and 08/30/2013 mammogram - [facility] The tissue of both breasts is predominantly fatty. There are benign calcifications in both breasts. No suspicious mass, architectural distortion, malignant type calcification, or lymph node abnormality detected. Breast architecture is stable compared to prior exams.IMPRESSION: BENIGNThere is no mammographic evidence of malignancy. Resume annual screening mammography in one year. Valente Santana M.D. ss/penrad:01/30/2019 08:53:40 [place]: Courtney MOFFETT, [facility]-FWletter sent: BIRADS 1-2 Normal Mammogram BI-RADS: 2 BenignUS RENAL RETROPERITONEAL [id number] 10:23:00 [place] [address] PatientName: ESMER MARRERO MR #: [id number] : 1940 Age/Sex: 78/F Req #: [id number] Adm Physician: Ordered by: JOSH CEJA MD Report #: [id number] Location: Room/Bed: Procedure: [id number] US/US RENAL RETROPERITONEAL COMP Exam Date: 11/30/18 Exam Time: 943 REPORT STATUS: Signed EXAM: Renal Ultrasound INDICATION: [id number] URINARY TRACT INFECTION / CALCULUS OF KIDNEY COM PARISON: None TECHNIQUE: Transverse and longitudinal images of the kidneys and bladder were obtained. FINDINGS: Right Kidney: Length: 11.7 cm Appearance: Normal echogenicity. Collecting system: No hydronephrosis Stones: None Cyst/Mass: Lower pole 3.0 x 2.5 x 2.6 cm exophytic anechoic simple cyst without associated vascularity. Left Kidney: Length: 9.6 cm Appearance: Normal echogenicity. Collecting system: No hydronephrosis Stones: None Cyst/Mass: Parapelvic 1.6 x 1.8 x 1.5 cm anechoic simple cyst.Bladder: No mass or calculi. Bilateral ureteral jets seen. IMPRESSION: No hydronephrosis or renal calculi. Bilateral simple cysts as above. Signed by: David Velez MD on 11/30/2018 10:24 AM Dictated By: DAVID VELEZ MD 1024 Transcribed By: MARYAM on 11/30/18 1024 COPY TO: JOSH CEJA MDABDOMEN- 1VIEW (KUB)2018-11-30 10:18:00 [place] [address] Patient Name: ESMER MARRERO MR #: [id number] : 1940 Age/Sex: 78/F Req #: [id number] Adm Physician: Ordered by: JOSH CEJA MD Report #: [id number] Location: Room/Bed: Procedure: [id number] DX/ABDOMEN-1VIEW (KUB) Exam Date: 11/30/18 Exam Time: 929 REPORT STATUS: Signed Exam: KUB - 2 views Indication: Renal calculi Comparison: CT abdomen and pelvis of 04/18/2018 Findings: No radiographically apparent renal calculi. Nonobstructive bowel gas pattern. Degenerative changes of the lumbar spine and both hip joints. Phleboliths in the left pelvis. Impression: No radiographicallyapparent renal calculi. Signed by: David Velez MD on 11/30/2018 10:23 AM Dictated By: DAVID VELEZ MD El ectronically Signed By: DAVID VELEZ MD on 11/30/18 1023 Transcribed By: MARYAM on 11/30/18 1023 COPYTO: JOSH CEJA MDCT ABDOMEN/PELVIS [id number] 10:02:00 [place] [address] Patient Name: ESMER MARRERO MR #: [id number] : 1940 Age/Sex: 78/F Req #: [id number] Adm Physician: Ordered by: JOSH CEJA MD Report #: [id number] Location: CT Room/Bed: Procedure: [id number] CT/CT ABDOMEN/PELVIS WO Exam Date: 04/18/18 Exam [...] FOR DETECTION OF FOCAL LESIONS AND VASCULAR PATHO LOGY. ABDOMEN/PELVIS: LOWER THORAX: Lingular and right middle lobe scarring. Calcification within the coronary arteries, mitral valve and aortic valve. 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 HEPATOBILIARY:No focal hepatic lesions. No biliary ductal dilation. The gallbladder is normal. SPLEEN: No spl enomegaly with vascular calcification and single calcification near the hilum. PANCREAS: No focal masses or ductal dilatation. ADRENALS: No adrenal nodules. KIDNEYS/URETERS: No hydronephrosis. Bilateral cortical thinning with irregularity and scarring of the lower pole of the left kidney. Tiny stone wi thin the distal right ureter. PELVIC ORGANS/BLADDER: The bladder is normal. Pelvic calcifications compatible with phleboliths. PERITONEUM/RETROPERITONEUM: No free air or fluid. Dystrophic mesenteric calcification inferior to the left kidney. LYMPH NODES: No intra-abdominal,retroperitoneal, pelvic or inguinal lymphadenopathy. VESSELS: Vascular calcification. GI TRACT: No distention or wall thickening.BONES AND SOFT TISSUES: No bony destructive lesions. Degenerative changes of the spine. No soft tissue abnormalities. IMPRESSION: 1. Tiny barely discernible distal right ureteral nonobstructing stone. 2. No renal stones, hydronephrosis or hydroureter. Signed by: Dr. Jerman Lares DO on 04/18/2018 10:28 AM Dictated By: JERMAN LARES DO 1028 Transcribed By: MARYAM on 04/18/18 1028 COPY TO: JOSH CEJAGREAT LAKES HEALTH SYSTEMTor 2 [id number] 13:04:00 [place] [address] PatientName: ESMER MARRERO MR #: [id number] : 1940 Age/Sex: 77/F Req #: [id number] Adm Physician: Ordered by: SOHAIL CASTANEDA MD Report #: [id number] Location: [facility] Room/Bed: __ Procedure: [id number] DX/CHEST 2 VIEWS Exam Date: 02/16/18 Exam [...] SOFT TISSUES: No acute findings. CONCLUSION: Bibasilar pulmonaryopacities. Jerman Lares D.O. Dictated by: Jerman Lares D.O. on 02/16/2018 at 13:04 Electronically approved by: Jerman Lares D.O. on 02/16/2018 at 13:04 Dictated By: JERMAN LARES DO 1304 Transcribed By: CLAY on 02/16/18 1304 COPY TO: SOHAIL CASTANEDA MDCT ABDOMEN/PELVIS WO [place] [address] PatientName: ESMER MARRERO MR #: [id number] : 1940 Age/Sex: 76/F Req #: [id number] Adm Physician: Ordered by: JOSH CEJA MD Report #: [id number] Location: CT Room/Bed: Procedure: [id number] CT/CT ABDOMEN/PELVIS WO Exam Date: 01/08/17 Exam Time: 1230 REPORT STATUS: Signed PROCEDURE: CT ABDOMEN AND PELVIS WITHOUT CONTRAST TECHNIQUE: The abdomen and pelvis were scanned utilizing a multidetector helical scanner from the diaphragm to the lesser trochanter after the oral administration of water. No IV contrast was administered per renal stone protocol. Coronal and sagittal multiplanar reformations were obtained. COMPARISON: [facility], CT, CT ABDOMEN/PELVIS WO, 04/17/2015, 9:05. INDICATIONS: RENAL STONES FINDINGS: ABSENCE OF INTRAVENOUS CONTRAST DECREASES SENSITIVITYFOR DETECTION OF FOCAL LESIONS AND VASCULAR PATHOLOGY. LOWER THORAX: Stable. Linear opacities in thelingula and anterior left lower lobe (series 3, image 12), actually representing scarring. Lung bases are otherwise clear. Atherosclerotic calcification of the coronary arteries and thoracic aorta. HEPA TOBILIARY: No focal hepatic lesions. No biliary ductal dilatation. Gallbladder is unremarkable. SPLEEN: No splenomegaly. PANCREAS: No focal masses or ductal dilatation. ADRENALS: No adrenal nodules. KIDNEYS/URETERS: No renal, ureteral, or bladder calculi. No hydronephrosis, hydroureter, or evidence ofobstruction. Stable cortical scarring in bilateral kidneys, left greater than right. PELVIC ORGANS/BLADDER: Bladder is decompressed, but grossly unremarkable. No bladder calculi. Uterus is absent. No adnexal masses. PERITONEUM / RETROPERITONEUM: No free air or fluid. LYMPH NODES: No lymphadenopathy. VESSELS: Atherosclerotic calcification of the abdominal aorta, aortic branches, and iliac vessels. GI T RACT: No bowel dilation or evidence of obstruction. No pericolonic inflammatory changes. BONES AND SOFT TISSUES: No acute bony abnormalities. Degenerative changes in the lower thoracic and lumbosacral spine. Generalized osteopenia. Soft tissues are grossly unremarkable. IMPRESSION: 1. no renal, ureteral, or bladder calculi. No hydronephrosis or obstruction. Yo Villareal M.D. Dictated by: CarlosA. Julia M.D. on 01/08/2017 at 14:08 Electronically approved by: Yo Villareal M.D. on 01/08/2017 at 14:08 Dictated By: YO VILLAREAL MD 8002 COPY TO: JOSH CEJA MD
[2021-11-14 08:16] LABS: Absolute Lymphocytes (CBC) 1.5 K/uL (0.7-4.9); Hematocrit 35.8 % (36.0-45.0); Lymphocytes % 19.6 % (15.3-44.8); MCV 87.1 fL (80-100); MPV 9.6 fL (7.6-11.3); RBC Red Blood Cell Count 4.11 M/uL (3.86-4.86)
[2021-11-14 08:31] LABS: Albumin 2.9 g/dL (3.4-5.0); Bilirubin Total 0.4 mg/dL (0.2-1.0); Potassium 3.9 mmol/L (3.5-5.1); Protein, Total 6.8 g/dL (6.4-8.2)
[2021-11-14] MEDS ORDERED: ONDANSETRON 4 MG/2 ML VIAL ONE (08:31)
[2021-11-14] MEDS ORDERED: MEPERIDINE HCL 25 MG/ML SYR ONE (08:31)
[2021-11-14] MEDS ORDERED: MAGNESIUM SULFATE 1 gm IVPB 1 GM/100 ML BAG IV ONE (08:31)
--- NOTE | 2021-11-14 09:22 | RAD REPORT ---
EXAM DESCRIPTION: CT - Stone Protocol - 11/14/2021 8:34 am CLINICAL HISTORY: left side of body pain COMPARISON: Abdomen Pelvis W Contrast dated 09/14/2021 TECHNIQUE: Axial 3 mm thick images were obtained without oral or IV contrast. The [id number]-bb-[id number] span s the entirety of the system including uppermost abdomen and lung bases. All CT scans are performed using dose optimization technique as appropriate and may include automated exposure control or mA/KV adjustment according to patient size. FINDINGS: No hydronephrosis is present and no obstructing ureteral calculi. Lobulated left-sided celine al parenchyma noted. There appears to be some volume loss to the lower pole of the left kidney. This is similar to the September 14 examination. No suspicious renal masses. Isodense masses and pyelonephritis are not excluded on a stone protocol CT scan. No significant adrenal finding. No urinary bladder paulina picious finding. Imaged portions of the liver, spleen and pancreas show no suspicious findings on non-contrast imaging . No gallbladder or biliary tree abnormality identified. No suspicious bowel findings. The small bowel enteritis finding seen September 14 are not evident on the c urrent examination. No evidence for appendicitis. No hernia, mass or bulky lymphadenopathy noted. No free air, free fluid or inflammatory stranding. No significant bony abnormality. Prominent degenerative changes are present. Lower lumbar spinal sten osis changes are present. IMPRESSION: Noncontrast CT abdomen and pelvis imaging shows no acute or suspicious finding. No significant changes from the September 14 examination. Isodense masses and pyelonephritis are not excluded on stone protocol technique.
[2021-11-14 10:03] LABS: Urine Blood Negative (Negative); Urine Glucose Negative (Negative); Urine Protein Negative (Negative); Urine Specific Gravity 1.025 (1.005-1.030); Urine pH 5.5 (5.0-7.0)
--- NOTE | 2021-11-14 11:43 | EDPHYS ---
Physician Documentation [facility] Name: Esmer Hampton Age: 81 yrs Sex: Female : 1940 Arrival Date: 11/14/2021 Time: 07:25 Bed 27 Private MD: ED Physician Chino Koch HPI: 11/14 07:52 This 81 yrs old Female presents to ER via Ambulatory with complaints of Left Side Of rn Body Pain. 07:52 The patient complains of pain in the left mid back. The pain radiates to the abdomen. rn Onset: The symptoms/episode began/occurred just prior to arrival. Modifying factors: The symptoms are alleviated by nothing. the symptoms are aggravated by nothing. Associated signs and symptoms: Pertinent negatives: diarrhea, fever, urinary frequency, vomiting. Severity of pain: At its worst the pain was moderate in the emergency department the pain is unchanged. The patient has experienced similar episodes in the past. The patient has not recently seen a physician. Pt reports left flank pain, began approx 1.5 hours prior to arrival. No fever/chest pain/sob/vomiting/diarrhea. Similar pain but not as bad as before. . Historical: - Allergies: 07:29 Codeine; ll1 - PMHx: 07:29 diabetes mellitus; Hypercholesterolemia; Hypertensive disorder; Kidney stone; ll1 - PSHx: 07:29 back sx; heart cath; sx for kidney stones; ll1 - Immunization history:: Client reports receiving the 2nd dose of the Covid vaccine. - Social history:: Smoking status: Patient denies any tobacco usage or history of. - Family history:: not pertinent. - Hospitalizations: : No recent hospitalization is reported. ROS: 07:52 Constitutional: Negative for fever, chills, and weight loss, Eyes: Negative for injury, rn pain, redness, and discharge, Neck: Negative for injury, pain, and swelling, Cardiovascular: Negative for chest pain, palpitations, and edema, Respiratory: Negative for shortness of breath, cough, wheezing, and pleuritic chest pain, Abdomen/GI: Negative for nausea, vomiting, diarrhea, and constipation, Back: + left flank pain : Negative for injury, bleeding, discharge, and swelling, MS/Extremity: Negative for injury and deformity, Skin: Negative for injury, rash, and discoloration, Neuro: Negative for headache, weakness, numbness, tingling, and seizure. Exam: 07:52 Constitutional: This is a well developed, well nourished patient who is awake, alert, rn and in no acute distress. Head/Face: Normocephalic, atraumatic. Cardiovascular: Regular rate and rhythm. No pulse deficits. Respiratory: No increased work of breathing, no retractions or nasal flaring. Abdomen/GI: Soft, mild tenderness left lateral abdomen, no rebound Back: No spinal tenderness. No costovertebral tenderness. Full range of motion. Skin: Warm, dry MS/ Extremity: Pulses equal, no cyanosis. Neuro: Awake and alert, GCS 15 Vital Signs: 07:36 BP 193 / 59; Pulse 78; Resp 18; Temp 97.9; Pulse Ox 97% ; Height 5 ft. 0 in. (152.40 kr3 cm); 07:40 Weight 97.07 kg; Pain 0/10; kr3 08:35 BP 181 / 56; Pulse 64; Resp 18; Pulse Ox 97% on R/A; kr3 09:26 BP 132 / 84; Pulse 58; Resp 17; Pulse Ox 95% ; ll1 10:27 BP 124 / 61; Pulse 75; Pulse Ox 95% ; ll1 11:45 BP 131 / 71; Pulse 72; Resp 16; Pulse Ox 96% on R/A; ll1 07:40 Body Mass Index 41.79 (97.07 kg, 152.40 cm) kr3 MDM: 07:26 Patient medically screened. rn 11:41 Differential diagnosis: nephrolithiasis, pyelonephritis, UTI, abdominal pain. Data rn reviewed: vital signs, nurses notes, lab test result(s), radiologic studies, CT scan, and as a result, I will discharge patient. Counseling: I had a detailed discussion with the patient and/or guardian regarding: the historical points, exam findings, and any diagnostic results supporting the discharge/admit diagnosis, lab results, radiology results, the need for outpatient follow up, to return to the emergency department if symptoms worsen or persist or if there are any questions or concerns that arise at home. Response to treatment: the patient's symptoms have markedly improved after treatment, the patient's symptoms have resolved after treatment, the patient's condition has returned to base line, the patient is now symptom free, and as a result, I will discharge patient. Special discussion: Based on the patient's Hx, exam, and Dx evaluation, there is no indication for emergent surgery or inpatient Tx. It is understood by the patient/guardian that if the Sx's persist or worsen they need to return immediately for re-evaluation. I discussed with the patient/guardian in detail that at this point there is no indication for admission to the hospital. It is understood, however, that if the symptoms persist or worsen the patient needs to return immediately for re-evaluation. ED course: CT abdomen without acute findings, patient ambulatory to bathroom, states pain resolved, no clear etiology. Skipped breakfast and glucose dropped, improved with eating and juice. Will dc home. . 11/14 08:12 Order name: Comprehensive Metabolic Panel; Complete Time: 09:13 EDOR 11/14 08:12 Order name: Lipase; Complete Time: 09: EDOR 11/14 07:47 Order name: CT Stone Protocol 11/14 08:12 Order name: CBC with Automated Diff; Complete Time: 09:13 EDOR 11/14 10:04 Order name: Urine Dipstick-Ancillary; Complete Time: 10:05 EDOR 11/14 10:18 Order name: Glucose, Ancillary Testing; Complete Time: 10:22 EDOR 11/14 10:52 Order name: Glucose, Ancillary Testing EDOR 11/14 11:08 Order name: Glucose, Ancillary Testing EDOR 11/14 11:42 Order name: Glucose, Ancillary Testing EDOR 11/14 07:47 Order name: IV Saline Lock; Complete Time: 08:22 11/14 07:47 Order name: Labs collected and sent; Complete Time: 08:05 11/14 07:47 Order name: Urine Dipstick-Ancillary (obtain specimen); Complete Time: 10:03 11/14 08:04 Order name: Stone Protocol; Complete Time: 09:24 EDMS Administered Medications: 08:49 Drug: Magnesium Sulfate 1 grams Route: IVPB; Infused Over: 1 hrs; Site: left kr3 antecubital; 11:56 Follow up: Response: No adverse reaction; IV Status: Completed infusion; IV Intake: kr3 100ml 08:49 Drug: Demerol (meperidine) 12.5 mg Route: IVP; Site: left antecubital; kr3 11:55 Follow up: Response: No adverse reaction kr3 11:56 Follow up: Response: RASS: Drowsy (-1) kr3 08:50 Drug: Zofran (Ondansetron) 4 mg Route: IVP; Site: left antecubital; kr3 11:56 Follow up: Response: No adverse reaction kr3 Disposition Summary: 11/14/21 11:42 Discharge Ordered Location: Home rn Problem: new rn Symptoms: are resolved rn Condition: Stable rn Diagnosis - Abdominal pain, unspecified rn Followup: rn - With: Private Physician - When: As needed - Reason: Recheck today's complaints, Re-evaluation by your physician Discharge Instructions: - Discharge Summary Sheet rn - Abdominal Pain, Adult rn - Pain Without a Known Cause rn Forms: - Medication Reconciliation Form rn - Thank You Letter rn - 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
--- NOTE | 2021-11-14 11:43 | ER ---
Nurse's Notes [facility] Name: Esmer Hampton Age: 81 yrs Sex: Female : 1940 Arrival Date: 11/14/2021 Time: 07:25 Bed 27 Private MD: Diagnosis: Abdominal pain, unspecified Presentation: 11/14 07:36 Chief complaint: Patient states: left sided body pain that is worse in the back that kr3 started last night. Coronavirus screen: Vaccine status: Patient reports receiving the 2nd dose of the covid vaccine. Client denies travel out of the [place] in the last 14 days. Ebola Screen: Patient denies travel to an Ebola-affected area in the 21 days before illness onset. Initial Sepsis Screen: Does the patient meet any 2 criteria? No. Patient's initial sepsis screen is negative. Does the patient have a suspected source of infection? No. Patient's initial sepsis screen is negative. Risk Assessment: Do you want to hurt yourself or someone else? Patient reports no desire to harm self or others. Onset of symptoms was November 14, 2021. 07:36 Method Of Arrival: Ambulatory kr3 07:36 Acuity: MILAN 3 kr3 Triage Assessment: 07:38 General: Appears in no apparent distress. uncomfortable, Behavior is calm, cooperative, kr3 appropriate for age. Pain: Complains of pain in left mid back. Historical: - Allergies: 07:29 Codeine; ll1 - PMHx: 07:29 diabetes mellitus; Hypercholesterolemia; Hypertensive disorder; Kidney stone; ll1 - PSHx: 07:29 back sx; heart cath; sx for kidney stones; ll1 - Immunization history:: Client reports receiving the 2nd dose of the Covid vaccine. - Social history:: Smoking status: Patient denies any tobacco usage or history of. - Family history:: not pertinent. - Hospitalizations: : No recent hospitalization is reported. Screenin:54 Abuse screen: Denies threats or abuse. Nutritional screening: No deficits noted. kr3 Tuberculosis screening: No symptoms or risk factors identified. Fall Risk IV access (20 points). Ambulatory Aid- Crutches/Cane/Walker (15 pts). Gait- Impaired (20 pts.). Total Almendarez Fall Scale indicates High Risk Score (45 or more points). Fall prevention measures have been instituted. Side Rails Up X 2 Family Present and informed to notify staff if the need to leave the bedside. Assessment: 08:35 Reassessment: No changes from previously documented assessment. Patient and/or family kr3 updated on plan of care and expected duration. Pain level reassessed. Patient is alert, oriented x 3, equal unlabored respirations, skin warm/dry/pink. 09:37 Reassessment: No changes from previously documented assessment. Patient and/or family kr3 updated on plan of care and expected duration. Pain level reassessed. 10:52 Reassessment: No changes from previously documented assessment. Patient and/or family kr3 updated on plan of care and expected duration. Pain level reassessed. 11:45 Reassessment: No changes from previously documented assessment. Patient and/or family ll1 updated on plan of care and expected duration. Pain level reassessed. Patient is alert, oriented x 3, equal unlabored respirations, skin warm/dry/pink. Vital Signs: 07:36 BP 193 / 59; Pulse 78; Resp 18; Temp 97.9; Pulse Ox 97% ; Height 5 ft. 0 in. (152.40 kr3 cm); 07:40 Weight 97.07 kg; Pain 0/10; kr3 08:35 BP 181 / 56; Pulse 64; Resp 18; Pulse Ox 97% on R/A; kr3 09:26 BP 132 / 84; Pulse 58; Resp 17; Pulse Ox 95% ; ll1 10:27 BP 124 / 61; Pulse 75; Pulse Ox 95% ; ll1 11:45 BP 131 / 71; Pulse 72; Resp 16; Pulse Ox 96% on R/A; ll1 07:40 Body Mass Index 41.79 (97.07 kg, 152.40 cm) kr3 ED Course: 07:25 Patient arrived in ED. rg4 07:26 Chino Koch MD is Attending Physician. rn 07:29 Arm band placed on Patient placed in an exam room, on a stretcher. ll1 07:36 Drea Restrepo, SARAH is Primary Nurse. kr3 07:38 Triage completed. kr3 08:00 Initial lab(s) drawn, by me, sent to lab. Missed attempt(s): 22 gauge in right forearm. ll1 Bleeding controlled, band aid applied, catheter tip intact. 08:17 Inserted saline lock: 20 gauge in left antecubital area, using aseptic technique. Blood dh3 collected. 08:36 Stone Protocol In Process Unspecified. EDMS 10:07 Notified ED physician of other FSBS 33, gave crackers and juice. kr3 10:43 Notified ED physician of other blood sugar still 42, given more crackers, juice, ll1 applesauce. 11:01 Notified ED physician of other FSBS 64, jello given. kr3 11:54 No provider procedures requiring assistance completed. IV discontinued, intact, kr3 bleeding controlled, No redness/swelling at site. Pressure dressing applied. 11:55 Bed in low position. Call light in reach. Side rails up X 1. kr3 Administered Medications: 08:49 Drug: Magnesium Sulfate 1 grams Route: IVPB; Infused Over: 1 hrs; Site: left kr3 antecubital; 11:56 Follow up: Response: No adverse reaction; IV Status: Completed infusion; IV Intake: kr3 100ml 08:49 Drug: Demerol (meperidine) 12.5 mg Route: IVP; Site: left antecubital; kr3 11:55 Follow up: Response: No adverse reaction kr3 11:56 Follow up: Response: RASS: Drowsy (-1) kr3 08:50 Drug: Zofran (Ondansetron) 4 mg Route: IVP; Site: left antecubital; kr3 11:56 Follow up: Response: No adverse reaction kr3 Medication: 11:55 VIS not applicable for this client. kr3 Intake: 11:56 IV: 100ml; Total: 100ml. kr3 Outcome: 11:42 Discharge ordered by . rn 11:55 Discharged to home ambulatory. kr3 11:55 Condition: stable 11:55 Discharge instructions given to patient. 11:57 Patient left the ED. kr3 Signatures: Dispatcher [employer] EDMS Chino Koch MD MD rn Garcia, Rubi 4 Susie Joseph 3 Adal Hilario RN RN ll1 Drea Restrepo RN RN kr3 Corrections: (The following items were deleted from the chart) 09:38 09:38 Reassessment: No changes from previously documented assessment. Patient and/or kr3 family updated on plan of care and expected duration. Pain level reassessed. Patient is alert, oriented x 3, equal unlabored respirations, skin warm/dry/pink. kr3
== END 2021-11-14 11:57 | disposition home or self-care (01) ==
LOC: ER 07:19
DX: R10.9 Unspecified abdominal pain (principal); Z88.5 Allergy status to narcotic agent
CPT/HCPCS: 96365; 85025; 36415; 82947 ×4; 81003; 83690; 80053; 76377; 74176; 96375; 99284; 96366; J3475; J2175; J2405

== ENCOUNTER 2022-07-18 19:30 | Emergency (ER) | payer OTHER, MEDICARE ==
[2022-07-18] MEDS ORDERED: HYDROCODONE/APAP 10/325 TAB ONE (20:17)
[2022-07-18] MEDS ORDERED: IBUPROFEN 400 MG TAB ONE (20:17)
[2022-07-18] MEDS ORDERED: ONDANSETRON 4 MG (ODT) TAB ONE (20:18)
[2022-07-18 21:12] LABS: Absolute Lymphocytes (CBC) 1.8 K/uL (0.7-4.9); Hematocrit 37.2 % (36.0-45.0); Lymphocytes % 19.3 % (15.3-44.8); MCV 90.5 fL (80-100); MPV 9.6 fL (7.6-11.3); RBC Red Blood Cell Count 4.11 M/uL (3.86-4.86)
[2022-07-18 21:17] LABS: Protime INR 1.07
--- NOTE | 2022-07-18 21:40 | RAD REPORT ---
EXAM DESCRIPTION: US - Extremity Venous Uni Ltd - 07/18/2022 9:27 pm CLINICAL HISTORY: Right leg pain COMPARISON: None. TECHNIQUE: Real-time sonographic evaluation of the right lower extremity deep venous system was perf ormed. FINDINGS: Normal compressibility, flow augmentation, phasic flow and spontaneous flow is identified in the right lower extremity deep venous system. No intraluminal filling defects seen. IMPRESSION: No evidence of DVT in the right lower extremity.
--- NOTE | 2022-07-18 22:40 | ER ---
Nurse's Notes [facility] Name: Esmer Hampton Age: 82 yrs Sex: Female : 1940 Arrival Date: 07/18/2022 Time: 19:30 Bed 4 Private MD: Diagnosis: Right foot inflammatory arthritis. Right foot pain acute, right foot tenderness Presentation: 07/18 19:56 Chief complaint: Patient states: Right leg pain that spreads from foot to groin, onset nj1 yesterday, worsen since. Coronavirus screen: Vaccine status: Patient reports receiving the 2nd dose of the covid vaccine. 19:56 Method Of Arrival: Ambulatory [facility] 19:56 Ebola Screen: Patient denies travel to an Ebola-affected area in the 21 days before la1 illness onset. Initial Sepsis Screen: Does the patient meet any 2 criteria? No. Patient's initial sepsis screen is negative. Does the patient have a suspected source of infection? No. Patient's initial sepsis screen is negative. Risk Assessment: Do you want to hurt yourself or someone else? Patient reports no desire to harm self or others. Onset of symptoms was July 17, 2022. 19:56 Acuity: MILAN 3 nj1 Triage Assessment: 22:47 General: Appears in no apparent distress. Behavior is calm, cooperative. Pain: as6 Complains of pain in right leg. Historical: - Allergies: 21:18 Codeine; nj1 - PMHx: 21:18 diabetes mellitus; Hypercholesterolemia; Hypertensive disorder; Kidney stone; Gout; nj1 - PSHx: 21:18 Cardiac stent; nj1 - Immunization history:: Client reports receiving the 2nd dose of the Covid vaccine. - Social history:: Smoking status: Patient denies any tobacco usage or history of. - Family history:: No immediate family members are acutely ill. Screenin:46 [facility] ED Fall Risk Assessment (Adult) Score/Fall Risk Level 0 - 2 = Low Risk. Abuse as6 screen: Denies threats or abuse. Denies injuries from another. Nutritional screening: No deficits noted. Tuberculosis screening: No symptoms or risk factors identified. Assessment: 21:38 Reassessment: Patient appears in no apparent distress at this time. Patient and/or aa9 family updated on plan of care and expected duration. Pain level reassessed. Patient is alert, oriented x 3, equal unlabored respirations, skin warm/dry/pink. 22:37 Reassessment: c/o 12/01 RLQ, states, it got better and its back again. notified aa9 provider. Vital Signs: 19:56 BP 196 / 87; Pulse 72; Resp 18; Pulse Ox 98% on R/A; Weight 97.07 kg; Height 5 ft. 0 nj1 in. ; Pain 9/10; 21:30 BP 179 / 68; Pulse 62; Resp 16 S; Pulse Ox 94% ; aa9 22:30 BP 152 / 67; Pulse 59; Resp 18 S; Pulse Ox 96% on R/A; as6 19:56 Body Mass Index 41.79 (97.07 kg, 152.4 cm) nj1 19:56 Pain Scale: Adult nj1 ED Course: 19:33 Patient arrived in ED. jj6 19:55 Benita Leyva, RN is Primary Nurse. aa9 19:56 Ajit Vasques MD is Attending Physician. sp4 19:56 Arm band placed on. nj1 21:17 Triage completed. nj1 21:29 Extremity Venous Uni Ltd US In Process Unspecified. EDMS 22:46 Bed in low position. Call light in reach. Side rails up X 1. as6 22:47 No provider procedures requiring assistance completed. Patient did not have IV access as6 during this emergency room visit. Administered Medications: 20:21 Drug: [place] PO 10 mg-325 mg 1 tabs Route: PO; as6 22:45 Follow up: Response: No adverse reaction as6 20:21 Drug: Ibuprofen PO 400 mg Route: PO; as6 22:46 Follow up: Response: No adverse reaction as6 20:21 Drug: Ondansetron PO 4 mg Route: PO; as6 22:46 Follow up: Response: No adverse reaction as6 22:45 Drug: predniSONE PO 60 mg Route: PO; as6 22:46 Follow up: Response: No adverse reaction as6 Medication: 22:46 VIS not applicable for this client. as6 Outcome: 22:39 Discharge ordered by . sp4 22:47 Discharged to home ambulatory, with significant other. as6 22:47 Condition: stable 22:47 Discharge instructions given to patient, Instructed on discharge instructions, follow up and referral plans. medication usage, Demonstrated understanding of instructions, follow-up care, medications, Prescriptions given X 4. 22:47 Patient left the ED. as6 Signatures: Dispatcher [employer] EDMS Aileen Garcia jj6 Hung Emery RN RN as6 Benita Leyva RN RN aa9 Ajit Vasques MD MD sp4 Gali Crane RN RN nj1 Corrections: (The following items were deleted from the chart) 21:18 19:56 BP 196 / 87; Pulse 72bpm; Resp 18bpm; Pulse Ox 98% RA; 97.07 kg; Height 5 ft. 0 nj1 in.; BMI: 41.7; nj1 21:19 21:18 Immunization history: Client reports receiving the 2nd dose of the Covid vaccine, nj1 nj1 21:19 21:18 Social history: Smoking status: Patient denies any tobacco usage or history of. nj1 nj1 21:19 21:18 Arm band placed on nj1 nj1
--- NOTE | 2022-07-18 22:40 | EDPHYS ---
Physician Documentation [facility] Name: Esmer Hampton Age: 82 yrs Sex: Female : 1940 Arrival Date: 07/18/2022 Time: 19:30 Bed 4 Private MD: ED Physician Ajit Vasques HPI: 07/18 20:01 This 82 yrs old Female presents to ER via Unassigned with complaints of sp4 Swelling of Lower Extremity. 20:01 82-year-old female presents with acute worsening right foot pain associated with sp4 redness and swelling. Patient states she has history of gout and lower extremity DVT. Patient is on aspirin and Plavix. Pain onset was sudden yesterday evening.. 22:33 82-year-old female right lower extremity tenderness pain redness, history of gout. sp4 Historical: - Allergies: 21:18 Codeine; nj1 - PMHx: 21:18 diabetes mellitus; Hypercholesterolemia; Hypertensive disorder; Kidney stone; Gout; nj1 - PSHx: 21:18 Cardiac stent; nj1 - Immunization history:: Client reports receiving the 2nd dose of the Covid vaccine. - Social history:: Smoking status: Patient denies any tobacco usage or history of. - Family history:: No immediate family members are acutely ill. ROS: 22:33 Constitutional: Negative for fever, chills, and weight loss, Eyes: Negative for injury, sp4 pain, redness, and discharge, ENT: Negative for injury, pain, and discharge, Neck: Negative for injury, pain, and swelling, Cardiovascular: Negative for chest pain, palpitations, and edema, Respiratory: Negative for shortness of breath, cough, wheezing, and pleuritic chest pain, Abdomen/GI: Negative for abdominal pain, nausea, vomiting, diarrhea, and constipation, Back: Negative for injury and pain, : Negative for injury, bleeding, discharge, and swelling, MS/Extremity: Negative for injury and deformity, positive for right foot pain, right foot redness at the dorsal surface Skin: Negative for injury, rash, and discoloration, Neuro: Negative for headache, weakness, numbness, tingling, and seizure, Psych: Negative for depression, anxiety, Allergy/Immunology: Negative for hives, rash, and allergies Endocrine: Negative for neck swelling, polydipsia, polyuria, polyphagia, and weight changes Hematologic/Lymphatic: Negative for swollen nodes, abnormal bleeding, and unusual bruising Exam: 22:33 Constitutional: This is a well developed, well nourished patient who is awake, alert, sp4 and in no acute distress. Head/Face: Normocephalic, atraumatic. Eyes: Pupils equal round and reactive to light, extra-ocular motions intact. Lids and lashes normal. Conjunctiva and sclera are not injected. Cornea within normal limits. Periorbital areas with no swelling, redness, or edema. ENT: Nares patent. No nasal discharge, no septal abnormalities noted. Tympanic membranes are normal and external auditory canals are clear. Oropharynx with no redness, swelling, or masses, exudates, or evidence of obstruction, uvula midline. Mucous membranes moist. Neck: Trachea midline, no thyromegaly or masses palpated, and no cervical lymphadenopathy. Supple, full range of motion without nuchal rigidity, or vertebral point tenderness. No Meningismus. Chest/axilla: Normal chest wall appearance and motion. Nontender with no deformity. No lesions are appreciated. Cardiovascular: Regular rate and rhythm with a normal S1 and S2. No gallops, murmurs, or rubs. Normal PMI, no JVD. No pulse deficits. Respiratory: Lungs have equal breath sounds bilaterally, clear to auscultation and percussion. No rales, rhonchi or wheezes noted. No increased work of breathing, no retractions or nasal flaring. Abdomen/GI: Soft, non-tender, with normal bowel sounds. No distension or tympany. No guarding or rebound. No evidence of tenderness throughout. Back: No spinal tenderness. No costovertebral tenderness. Skin: Warm, dry with normal turgor. Normal color with no rashes, no lesions, and no evidence of cellulitis. MS/ Extremity: Pulses equal, no cyanosis. Neurovascular intact. Full, normal range of motion. Right foot tenderness, mild redness to the dorsal surface, no signs of septic arthritis, no signs of abscess, normal bilateral peripheral pulses Neuro: Awake and alert, GCS 15, oriented to person, place, time, and situation. Cranial nerves II-XII grossly intact. Motor strength 5/5 in all extremities. Sensory grossly intact. Psych: Awake, alert, with orientation to person, place and time. Behavior, mood, and affect are within normal limits Vital Signs: 19:56 BP 196 / 87; Pulse 72; Resp 18; Pulse Ox 98% on R/A; Weight 97.07 kg; Height 5 ft. 0 nj1 in. ; Pain 9/10; 21:30 BP 179 / 68; Pulse 62; Resp 16 S; Pulse Ox 94% ; aa9 22:30 BP 152 / 67; Pulse 59; Resp 18 S; Pulse Ox 96% on R/A; as6 19:56 Body Mass Index 41.79 (97.07 kg, 152.4 cm) nj1 19:56 Pain Scale: Adult nj1 MDM: 20:04 Patient medically screened. sp4 22:33 Differential diagnosis: closed fracture, contusion, tendonitis, Inflammatory arthritis. sp4 Data reviewed: vital signs, nurses notes, old medical records, lab test result(s), radiologic studies, ultrasound. ED course: Ultrasound revealed no signs of DVT, blood work is unremarkable. Patient will be prescribed tramadol, prednisone, ibuprofen. Based on examination, most likely diagnosis appears to be acute gout right foot. 07/18 20:02 Order name: Basic Metabolic Panel; Complete Time: 22:31 4 07/18 20:02 Order name: CBC with Diff; Complete Time: 22:31 [facility] 07/18 20:04 Order name: PT-INR; Complete Time: 22:31 4 07/18 20:04 Order name: Extremity Venous Uni Ltd US; Complete Time: 22:31 4 07/18 20:02 Order name: Labs collected and sent; Complete Time: 21:36 [facility] 07/18 20:02 Order name: O2 Per Protocol; Complete Time: 20:08 sp4 07/18 20:02 Order name: O2 Sat Monitoring; Complete Time: 20:08 sp4 Administered Medications: 20:21 Drug: [place] PO 10 mg-325 mg 1 tabs Route: PO; as6 22:45 Follow up: Response: No adverse reaction as6 20:21 Drug: Ibuprofen PO 400 mg Route: PO; as6 22:46 Follow up: Response: No adverse reaction as6 20:21 Drug: Ondansetron PO 4 mg Route: PO; as6 22:46 Follow up: Response: No adverse reaction as6 22:45 Drug: predniSONE PO 60 mg Route: PO; as6 22:46 Follow up: Response: No adverse reaction as6 Disposition Summary: 07/18/22 22:39 Discharge Ordered Location: Home sp4 Problem: new sp4 Symptoms: have improved sp4 Condition: Stable sp4 Diagnosis - Right foot inflammatory arthritis. Right foot pain acute, right foot tenderness sp4 Followup: sp4 - With: Private Physician - When: 5 - 6 days - Reason: Recheck today's complaints Discharge Instructions: - Discharge Summary Sheet sp4 - Gout, Ifjo-de-Sqpj sp4 - Arthritis, Dylk-po-Sqwj sp4 Prescriptions: - Ibuprofen 600 mg Oral Tablet - take 1 tablet by ORAL route every 6 hours As needed take with food; 30 tablet; sp4 Refills: 0, Product Selection Permitted - Prednisone 20 mg Oral Tablet - take 1 tablet by ORAL route once daily for 5 days; 5 tablet; Refills: 0, sp4 Product Selection Permitted - Zofran 4 mg Oral Tablet - take 1 tablet by ORAL route every 6 hours As needed PRN nausea; 30 tablet; sp4 Refills: 0, Product Selection Permitted - Tramadol 50 mg Oral Tablet - take 1 tablet by ORAL route every 8 hours as needed for pain along with sp4 Ibuprofen; 30 tablet; Refills: 0, Product Selection Permitted Signatures: Dispatcher [employer] Hung Clemens RN RN as6 Ajit Vasques MD MD sp4 Gali Crane RN RN nj1 Corrections: (The following items were deleted from the chart) 21:19 21:18 Immunization history: Client reports receiving the 2nd dose of the Covid vaccine, nj1 nj1 21:19 21:18 Social history: Smoking status: Patient denies any tobacco usage or history of. nj1 nj1 22:45 20:02 IV Saline Lock ordered. sp4 as6
[2022-07-18] MEDS ORDERED: predniSONE 20 MG TAB ONE (22:49)
[2022-07-18 22:55] VITALS: BP 152/67; O2SAT 96
== END 2022-07-18 22:47 | disposition home or self-care (01) ==
LOC: ER 19:30
DX: M19.079 Primary osteoarthritis, unspecified ankle and foot (principal); Z86.718 Personal history of other venous thrombosis and embolism; Z79.01 Long term (current) use of anticoagulants; Z88.5 Allergy status to narcotic agent; Z95.818 Presence of other cardiac implants and grafts; E11.9 Type 2 diabetes mellitus without complications; I10 Essential (primary) hypertension
CPT/HCPCS: 85025; 80048; 36415; 85610; 93971; 99284; J7512; Q0162

== ENCOUNTER → 2023-05-12 | Emergency (ER) | payer OTHER, MEDICARE ==
--- NOTE | 2023-05-12 10:32 | RAD REPORT ---
EXAM DESCRIPTION: RAD - Pelvis - 05/12/2023 9:40 am CLINICAL HISTORY: fall COMPARISON: No comparisons TECHNIQUE: Single AP view of the pelvis. FINDINGS: The visualized pelvic ring is intact. No suspicious osseous lesions. Mild degenerative stephon nges of the hip joints more so on the left, and up to moderate degenerative changes of other pelvic j oints. Visualized aspects of the abdomen and soft tissues are unremarkable. Linear metallic radiodens ity projecting over the right lower quadrant. Calcific focus projecting over the left hemiabdomen, li ortiz relates to a retroperitoneal calcification that was demonstrated on the lumbar spine CT. IMPRESSION: No acute osseous abnormality of the bony pelvis.
--- NOTE | 2023-05-12 10:33 | RAD REPORT ---
EXAM DESCRIPTION: RAD - Femur Left - 05/12/2023 9:40 am CLINICAL HISTORY: fall COMPARISON: <Comparisons> TECHNIQUE: Left femur, 2 views. FINDINGS: No fracture is identified. There is no dislocation or periosteal reaction noted. Mild lef t hip and moderate to advanced left knee joint degenerative changes. Moderate suprapatellar effusion. No acute or suspicious bony finding. IMPRESSION: No acute osseous abnormality. Degenerative changes as above. Moderate suprapatellar knee joint effusion. .
--- NOTE | 2023-05-12 10:38 | RAD REPORT ---
EXAM DESCRIPTION: CT - CTHCSPWOC - 05/12/2023 9:48 am CLINICAL HISTORY: fall COMPARISON: No comparisons TECHNIQUE: Axial thin cut noncontrast CT images of the head were obtained. Axial thin cut noncontrast CT images of the cervical spine were obtained. Multiplanar reformatted images were generated and reviewed. All CT scans are performed using dose optimization technique as appropriate and may include automated exposure control or mA/KV adjustment according to patient size. FINDINGS: CT HEAD WITHOUT CONTRAST: No acute hemorrhage, hydrocephalus or extra-axial collection is identified. Patchy areas of periventr icular and deep white matter hypoattenuation, nonspecific, suggestive of sequelae of chronic small ve ssel ischemic changes. No areas of brain edema or midline shift. The paranasal sinuses and mastoids are clear.The calvarium is intact. CT CERVICAL SPINE WITHOUT CONTRAST: No fracture or subluxation.Multilevel degenerative changes contributing to moderate degrees of neural foraminal narrowing bilaterally at C5-6 and C6-7.No prevertebral soft tissues swelling is identified . IMPRESSION: No acute traumatic intracranial or cervical spine findings. Chronic findings as above.
--- NOTE | 2023-05-12 10:46 | RAD REPORT ---
EXAM DESCRIPTION: CT - Spine Lumbar Wo Con - 05/12/2023 9:53 am CLINICAL HISTORY: fall COMPARISON: No comparisons TECHNIQUE: Axial noncontrast CT imaging of the lumbar spine was performed with coronal and sagittal re-formatted images. All CT scans are performed using dose optimization technique as appropriate and may include automated exposure control or mA/KV adjustment according to patient size. FINDINGS: No acute lumbar spine fracture seen. No aggressive marrow pattern or malalignment. Paraspinal tissues are normal in thickness. No paraspinal abscess or hematoma seen. Intervertebral disc disease assessment is inherently limited by CT. Within these limitations, disc bu lges and advanced facet arthropathy contribute to moderate central canal stenosis at L4-[address] enosis at L3-4. Variable degrees of neural foraminal narrowing, at least moderate bilaterally at L4-5 more so on the right, and at L2-3 bilaterally. Mild colonic diverticulosis. Calcific focus along the left retroperitoneum. IMPRESSION: No acute lumbar spine fracture or subluxation. Degenerative changes as above contributing to degrees of central canal and foraminal stenosis. Please Consider MRI follow-up for assessment of disc disease and degrees of neural impingement if clinicall y indicated.
--- NOTE | 2023-05-12 11:02 | EDPHYS ---
Physician Documentation [facility] Name: Esmer Hampton Age: 83 yrs Sex: Female : 1940 Arrival Date: 05/12/2023 Time: 08:49 Bed 15 Private MD: ED Physician Deven Nam HPI: 05/11 09:22 This 83 yrs old Female presents to ER via Ambulatory with complaints of ec2 Constipation, Fall Injury. 09:22 Patient arrives today for evaluation after a ground-level fall yesterday. States that ec2 she bent over subsequently fell and injured her left hip. Patient reports no LOC. Patient complaining of left hip pain. Patient also with constipation, on Dulcolax. Patient is on blood thinners otherwise.. Historical: - Allergies: 09:07 Codeine; ll1 - PMHx: 09:07 diabetes mellitus; Gout; Hypercholesterolemia; Hypertensive disorder; Kidney stone; ll1 - PSHx: 09:07 back sx; cardiac stent; heart cath; sx for kidney stones; ll1 - Immunization history:: Adult Immunizations up to date. - Social history:: Smoking status: Patient denies any tobacco usage or history of. Patient/guardian denies using alcohol. ROS: 09:22 Constitutional: as per hpi ec2 Exam: 09:22 Constitutional: GEN: No acute distress HEENT: -Head: no deformities -Eyes: EOMI CV: ec2 regular rate LUNGS: no respiratory distress ABD: non-tender SKIN: no wounds appreciated MSK: No C/T/L spine deformities, L-spine TTP, no deformities appreciated. RUE w/o bony deformity LUE w/o bony deformity RLE w/o bony deformity LLE w/o bony deformity, left hip TTP NEURO: moves all extremities equally, GCS 15 (E4, V5, M6) Vital Signs: 09:16 BP 155 / 90; Pulse 71; Resp 18; Temp 98.4(TE); Pulse Ox 97% on R/A; Weight 95.25 kg; ld1 Height 5 ft. 1 in. ; Pain 7/10; 10:00 BP 165 / 85; Pulse 60; Resp 18; Pulse Ox 100% on R/A; mb9 11:15 BP 148 / 84; Pulse 62; Resp 16; Pulse Ox 100% on R/A; mb9 09:16 Body Mass Index 39.68 (95.25 kg, 154.94 cm) ld1 09:16 Pain Scale: Adult ld1 MDM: 09:17 Patient medically screened. ec2 09:22 Data reviewed: vital signs. ED course: Patient arrives today for evaluation after a ec2 fall. Examination remarkable for MSK findings as above. Will obtain CT scan of the head and C-spine as well as the L-spine and pelvis and femur. Evaluate for contusion, bony fracture. Additional in regards to the patient's constipation, patient can manage as outpatient as expectedly, will prescribe her lactulose as needed.. 10:34 ED course: Pelvis and femur x-ray with no acute traumatic pathology.. ec2 10:46 ED course: CT head and C-spine with no acute traumatic process.. ec2 10:59 ED course: CT L-spine with DJD noted, some stenosis noted within the canal, patient ec2 without focal neurologic deficit, can follow-up outpatient. Will start medication for constipation and have her follow with primary care doctor. Return precautions given. . 05/11 09:22 Order name: CT Head C Spine; Complete Time: 10:46 ec2 05/11 09:22 Order name: Pelvis XRAY; Complete Time: 10:33 ec2 05/11 09:22 Order name: Femur Left XRAY; Complete Time: 10:34 ec2 05/11 09:22 Order name: CT Lumbar Spine Wo Con; Complete Time: 10:58 ec2 Administered Medications: No medications were administered Disposition Summary: 05/12/23 11:01 Discharge Ordered Notes: Location: Home ec2 Problem: new ec2 Symptoms: have improved ec2 Condition: Stable ec2 Diagnosis - Low back pain ec2 - Pain in left hip ec2 - Constipation, unspecified ec2 Followup: ec2 - With: Private Physician - When: - Reason: Re-evaluation by your physician Discharge Instructions: - Discharge Summary Sheet ec2 - Acute Back Pain, Adult ec2 - Constipation, Adult ec2 Forms: - Medication Reconciliation Form ec2 - Thank You Letter ec2 - Antibiotic Education ec2 - Prescription Opioid Use ec2 - Patient Portal Instructions ec2 - Leadership Thank You Letter ec2 Prescriptions: - Lactulose 10 gram/15 mL Oral Solution - take 30 milliliters ORAL route once daily; 300 milliliter; Refills: 0, Product ec2 Selection Permitted - methocarbamol 500 mg Oral tablet - take 2 tablets ORAL route 4 times per day; 20 tablet; Refills: 0, Product ec2 Selection Permitted Signatures: Dispatcher [employer] Adal Pathak RN RN ll1 Dariana Resendez RN RN ld1 Deven Nam MD MD ec2
--- NOTE | 2023-05-12 11:02 | ER ---
Nurse's Notes [facility] Name: Esmer Hampton Age: 83 yrs Sex: Female : 1940 Arrival Date: 05/12/2023 Time: 08:49 Bed 15 Private MD: Diagnosis: Low back pain;Pain in left hip;Constipation, unspecified Presentation: 05/11 09:16 Chief complaint: Patient states: C/O left hip pain from fall yesterday and lower ld1 abdominal pain. Pt reports constipation X 5 days - PCP put pt on Dulcolax. States "I bent down yesterday to clean something up and I fell onto my left hip." Denies LOC, Takes plavix daily. Coronavirus screen: At this time, the client does not indicate any symptoms associated with coronavirus-19. Ebola Screen: No symptoms or risks identified at this time. Initial Sepsis Screen: Does the patient meet any 2 criteria? No. Patient's initial sepsis screen is negative. Does the patient have a suspected source of infection? No. Patient's initial sepsis screen is negative. Risk Assessment: Do you want to hurt yourself or someone else? Patient reports no desire to harm self or others. Onset of symptoms was May 12, 2023. 09:16 Method Of Arrival: Ambulatory ld1 09:16 Acuity: MILAN 3 ld1 Triage Assessment: 09:16 General: Appears in no apparent distress. comfortable, Behavior is calm, cooperative, ld1 appropriate for age. Pain: Complains of pain in right lower quadrant, left lower quadrant and left hip Pain does not radiate. Pain currently is 7 out of 10 on a pain scale. Quality of pain is described as throbbing, Pain began 1 day ago. Is continuous. EENT: No signs and/or symptoms were reported regarding the EENT system. Neuro: Level of Consciousness is awake, alert, obeys commands, Oriented to person, place, time, situation, Appropriate for age. Cardiovascular: Capillary refill < 3 seconds Patient's skin is warm and dry. Respiratory: Airway is patent Respiratory effort is even, unlabored. GI: Abdomen is round non-distended. : No signs and/or symptoms were reported regarding the genitourinary system. Derm: No signs and/or symptoms reported regarding the dermatologic system. Musculoskeletal: No signs and/or symptoms reported regarding the musculoskeletal system. Historical: - Allergies: :07 Codeine; ll1 - PMHx: 09:07 diabetes mellitus; Gout; Hypercholesterolemia; Hypertensive disorder; Kidney stone; ll1 - PSHx: 09:07 back sx; cardiac stent; heart cath; sx for kidney stones; ll1 - Immunization history:: Adult Immunizations up to date. - Social history:: Smoking status: Patient denies any tobacco usage or history of. Patient/guardian denies using alcohol. Screenin:09 [facility] ED Fall Risk Assessment (Adult) History of falling in the last 3 months, ld1 including since admission No falls in past 3 months (0 pts). Abuse screen: Denies threats or abuse. Denies injuries from another. Nutritional screening: No deficits noted. Tuberculosis screening: No symptoms or risk factors identified. Assessment: 09:09 General: Appears in no apparent distress. comfortable, Behavior is calm, cooperative, ld1 appropriate for age. Pain: Denies pain. Neuro: Level of Consciousness is awake, alert, obeys commands, Oriented to person, place, time, situation. Cardiovascular: Capillary refill < 3 seconds Patient's skin is warm and dry. Respiratory: Airway is patent Respiratory effort is even, unlabored. GI: Abdomen is round non-distended, Bowel sounds present X 4 quads. Abd is soft Abdomen is tender to palpation. : No signs and/or symptoms were reported regarding the genitourinary system. EENT: No signs and/or symptoms were reported regarding the EENT system. Derm: No signs and/or symptoms reported regarding the dermatologic system. Musculoskeletal: No signs and/or symptoms reported regarding the musculoskeletal system. 10:00 Reassessment: No changes from previously documented assessment. Patient and/or family mb9 updated on plan of care and expected duration. Pain level reassessed. Patient is alert, oriented x 3, equal unlabored respirations, skin warm/dry/pink. 11:15 Reassessment: Patient and/or family updated on plan of care and expected duration. Pain mb9 level reassessed. Patient is alert, oriented x 3, equal unlabored respirations, skin warm/dry/pink. Patient states feeling better. Patient states symptoms have improved. Vital Signs: 09:16 BP 155 / 90; Pulse 71; Resp 18; Temp 98.4(TE); Pulse Ox 97% on R/A; Weight 95.25 kg; ld1 Height 5 ft. 1 in. ; Pain 7/10; 10:00 BP 165 / 85; Pulse 60; Resp 18; Pulse Ox 100% on R/A; mb9 11:15 BP 148 / 84; Pulse 62; Resp 16; Pulse Ox 100% on R/A; mb9 09:16 Body Mass Index 39.68 (95.25 kg, 154.94 cm) ld1 09:16 Pain Scale: Adult ld1 ED Course: 08:59 Patient arrived in ED. mg5 09:04 Dariana Resendez, RN is Primary Nurse. ld1 09:07 Arm band placed on Patient placed in an exam room, on a stretcher. ll1 09:08 Deven Nam MD is Attending Physician. ec2 09:09 Patient has correct armband on for positive identification. Placed in gown. Bed in low ld1 position. Call light in reach. Side rails up X2. front desk monitor on. Pulse ox on. NIBP on. Door closed. Noise minimized. Warm blanket given. 09:09 No provider procedures requiring assistance completed. ld1 09:19 Triage completed. ld1 09:42 Pelvis XRAY In Process Unspecified. EDMS 09:42 Femur Left XRAY In Process Unspecified. EDMS 09:50 CT Head C Spine In Process Unspecified. EDMS 09:51 CT Lumbar Spine Wo Con In Process Unspecified. EDMS 11:16 Patient did not have IV access during this emergency room visit. [email or web address] Administered Medications: No medications were administered Medication: 09:09 VIS not applicable for this client. ld1 Outcome: 11:01 Discharge ordered by . ec2 11:16 Discharged to home with family, mb9 11:16 Condition: stable 11:16 Discharge instructions given to patient, Instructed on discharge instructions, follow up and referral plans. Demonstrated understanding of instructions, follow-up care, medications, Prescriptions given X 2, 11:16 Patient left the ED. tyra Signatures: Dispatcher [employer] Adal Pathak, SARAH RN ll1 Dariana Resendez, RN RN ld1 Esmer King RN RN mb9 Jacquelyn Tai mg5 Deven Nam MD MD ec
[2023-05-12 11:46] VITALS: BP 148/84; TEMP 98.4; O2SAT 100
== END ==
LOC: ER 08:49
DX: M54.50 Low back pain, unspecified (principal); M25.552 Pain in left hip; K59.00 Constipation, unspecified; W18.30XA Fall on same level, unspecified, initial encounter; E11.9 Type 2 diabetes mellitus without complications; I10 Essential (primary) hypertension; Z88.5 Allergy status to narcotic agent; Z95.818 Presence of other cardiac implants and grafts
CPT/HCPCS: 70450; 72125; 72131; 72170

== ENCOUNTER 2024-03-24 12:01 | Emergency (ER) | payer OTHER, MEDICARE ==
[2024-03-24] MEDS ORDERED: METHYLPREDNISOLONE 125 MG INJ ONE (12:44)
[2024-03-24] MEDS ORDERED: KETOROLAC 30 MG/ML INJ ONE (12:45)
--- NOTE | 2024-03-24 13:23 | RAD REPORT ---
EXAMINATION: CT LUMBAR SPINE WITHOUT CONTRAST CLINICAL INDICATION: Female, 84 years old. R radiculopathy TECHNIQUE: Axial CT images were obtained through the lumbar spine in soft tissue and bone windows wit hout intravenous contrast. Coronal and Sagittal reformatted images were created from the data set. One or more of the following dose reduction techniques were used: Automated exposure control, adjustm ent of the mA and/ or kV according to patient size, and/or iterative reconstruction. Unless otherwise specified, incidental findings do not require dedicated imaging follow-up. [id number]. COMPARISON: 05/12/2023 FINDINGS: For purposes of this dictation, it is assumed that there are 5 non rib-bearing lumbar type vertebrae, and the most caudal fully segmented lumbar vertebra is labeled L5. ALIGNMENT: Approximately 2 mm retrolisthesis of L2 on L3. BONES: No significant soft tissue abnormalities. No aggressive osseous lesions. DISCS: Mild to moderate disc height loss at L2-3. LEVELS: Multilevel degenerative disease contributing to varying degrees of neural foraminal narrowing and central spinal stenosis. Central spinal stenosis is moderate at L2-3 secondary to retrolisthesis and a posterior spur. Mild central spinal stenosis is present at L4-5 and L3-4. Neural foraminal narrowing is present bilaterally at multiple levels though probably more pronounced on the right at L4-5. This is similar to prior. SOFT TISSUE: Atherosclerotic changes. No acute findings. IMPRESSION: No acute fracture of the lumbar spine. Multilevel degenerative disc disease including very degrees of neural foraminal narrowing and central spinal stenosis. These findings are similar to 05/12/2023.
[2024-03-24 13:25] LABS: Albumin 3.1 g/dL (3.4-5.0); Albumin/Globulin Ratio 0.8 (1.1-1.8); Anion Gap 11.3 mEq/L (5.0-15.0); Bilirubin Total 0.3 mg/dL (0.2-1.0); Globulin 3.9 g/dL (2.3-3.5); Potassium 4.3 mEq/L (3.5-5.1)
[2024-03-24 13:38] LABS: Absolute Basophils 0.1 K/uL (0-0.5); Absolute Eosinophils 0.1 K/uL (0-0.5); Absolute Lymphocytes (CBC) 1.8 K/uL (0.7-4.9); Absolute Monocytes 0.7 K/uL (0.1-1.3); Absolute Neutrophil 4.9 K/uL (1.8-8.0); Eosinophils % 1.7 % (0-4.4); Hematocrit 34.9 % (36.0-45.0); Hemoglobin 11.8 g/dL (12.0-15.0); Lymphocytes % 24.2 % (15.3-44.8); MCH 30.3 pg (27.0-35.0); MCHC 33.8 g/dL (32.0-36.0); MCV 89.6 fL (80-100); MPV 9.4 fL (7.6-11.3); Neutrophils % 64.1 % (41.7-73.7); Platelets 159 thou/uL (152-406); RBC Red Blood Cell Count 3.89 M/uL (3.86-4.86); Red Cell Distribution Width 17.1 % (12.1-15.2)
--- NOTE | 2024-03-24 14:08 | EDPHYS ---
Physician Documentation [facility] Name: Esmer Hampton Age: 84 yrs Sex: Female : 1940 Arrival Date: 03/24/2024 Time: 12:01 Bed 15 Private MD: ED Physician Anthony Epperson HPI: 03/24 12:49 This 84 yrs old Female presents to ER via Ambulatory with complaints of Back Pain, Low sp3 Back Pain, Leg Pain. 12:49 84-year-old female with history of diabetes, gout, hyperlipidemia, hypertension, prior sp3 kidney stone now presents with right sided radicular pain of the lower back extending posteriorly down the leg into the calf into the foot. Symptoms been going on for approximately 1 week. She denies any heavy lifting, trauma, abdominal pain, upper back pain, mid back pain, chest pain, shortness of breath, fever, syncope, near syncope, focal neurological deficit, numbness or tingling anywhere else, or any other signs or symptoms on ROS at this time. She has had 1 prior episode of this several years ago.. Historical: - Allergies: 12:13 Codeine; ll1 - Home Meds: 12:25 simvastatin 40 mg Oral tablet 1 tab daily [Active]; aspirin 81 mg Oral capsule 1 cap ll1 daily [Active]; lisinopril 20 mg Oral tablet 1 tab daily [Active]; metoprolol tartrate 25 mg Oral tablet daily [Active]; allopurinol 300 mg Oral tablet 1 tab daily [Active]; Novolin 70/30 [place] 30 units Sub-Q twice a day [Active]; - PMHx: 12:13 diabetes mellitus; Gout; Hypercholesterolemia; Hypertensive disorder; Kidney stone; ll1 - PSHx: 12:13 back sx; cardiac stent; heart cath; sx for kidney stones; ll1 - Immunization history:: Adult Immunizations up to date. - Infectious Disease History:: Denies. - Social history:: Smoking status: Patient denies any tobacco usage or history of. ROS: 12:50 Constitutional: Negative for fever, chills, and weight loss, Eyes: Negative for injury, sp3 pain, redness, and discharge, ENT: Negative for injury, pain, and discharge, Neck: Negative for injury, pain, and swelling, Cardiovascular: Negative for chest pain, palpitations, and edema, Respiratory: Negative for shortness of breath, cough, wheezing, and pleuritic chest pain, Abdomen/GI: Negative for abdominal pain, nausea, vomiting, diarrhea, and constipation, : Negative for injury, bleeding, discharge, and swelling, Skin: Negative for injury, rash, and discoloration, Neuro: Negative for headache, weakness, numbness, tingling, and seizure, Psych: Negative for depression, anxiety, suicide ideation, homicidal ideation, and hallucinations, Allergy/Immunology: Negative for hives, rash, and allergies, Endocrine: Negative for neck swelling, polydipsia, polyuria, polyphagia, and marked weight changes, Hematologic/Lymphatic: Negative for swollen nodes, abnormal bleeding, and unusual bruising, 12:50 All other systems are negative, Exam: 12:50 Constitutional: This is a well developed, well nourished patient who is awake, alert, sp3 and in no acute distress. Head/Face: Normocephalic, atraumatic. Eyes: Pupils equal round and reactive to light, extra-ocular motions intact. Lids and lashes normal. Conjunctiva and sclera are non-icteric and not injected. Cornea within normal limits. Periorbital areas with no swelling, redness, or edema. ENT: Nares patent. No nasal discharge, no septal abnormalities noted. External auditory canals are clear. Oropharynx with no redness, swelling, or masses, exudates, or evidence of obstruction, uvula midline. Mucous membranes moist. Neck: Trachea midline, no thyromegaly or masses palpated, and no cervical lymphadenopathy. Supple, full range of motion without nuchal rigidity, or vertebral point tenderness. No Meningismus. Chest/axilla: Normal chest wall appearance and motion. Nontender with no deformity. No lesions are appreciated. Cardiovascular: Regular rate and rhythm with a normal S1 and S2. No gallops, murmurs, or rubs. Normal PMI, no JVD. No pulse deficits. Respiratory: Lungs have equal breath sounds bilaterally, clear to auscultation and percussion. No rales, rhonchi or wheezes noted. No increased work of breathing, no retractions or nasal flaring. Abdomen/GI: Soft, non-tender, with normal bowel sounds. No distension or tympany. No guarding or rebound. No evidence of tenderness throughout. Back: No spinal tenderness. No costovertebral tenderness. Full range of motion. Neuro: Awake and alert, GCS 15, oriented to person, place, time, and situation. Cranial nerves II-XII grossly intact. Motor strength 5/5 in all extremities. Sensory grossly intact. Cerebellar exam normal. Normal gait. Psych: Awake, alert, with orientation to person, place and time. Behavior, mood, and affect are within normal limits. 12:50 Musculoskeletal/extremity: Painful for patient to walk. Positive pain on straight leg raise on the right side. Normal distal pulse.. Vital Signs: 12:13 BP 192 / 101; Pulse 70; Resp 18; Temp 97.3; Pulse Ox 96% on R/A; Weight 97.52 kg; ll1 Height 5 ft. 1 in. ; Pain 10/10; 13:06 BP 192 / 65; Pulse 75; Resp 19 S; Pulse Ox 96% on R/A; kc6 14:56 BP 186 / 89; Pulse 80; Resp 15 S; Pulse Ox 96% on R/A; kc6 12:13 Body Mass Index 40.62 (97.52 kg, 154.94 cm) ll1 12:13 Pain Scale: Adult ll1 MDM: 12:13 Medical Screening Exam initiated sp3 12:51 Data reviewed: vital signs, nurses notes, lab test result(s), radiologic studies. ED sp3 course: 84-year-old female with PMH above now with right-sided lumbar radiculopathy. Differential diagnosis includes lumbar disc disease, sciatica, other musculoskeletal process, among others. I am not highly suspicious of DVT, intra-abdominal pathology, GI pathology, pathology, or any other critical illness including sepsis and shock. Workup will include CT scan of the lumbar spine, general labs, UA and symptomatic control with pain medication. Outpatient MRI and orthopedic referral will be given assuming workup negative.. 14:06 ED course: Patient improved. Patient has been here for similar symptoms in the past. sp3 She states she will follow-up with Dr. Hartley in [place] as that is her orthopedic physician/office. Patient will be discharged on tramadol and Medrol Dosepak.. 03/24 12:27 Order name: CBC with Diff; Complete Time: 13:49 sp3 03/24 12:27 Order name: CMP; Complete Time: 13:49 sp3 03/24 12:50 Order name: UAM; Complete Time: 14:17 sp3 03/24 12:27 Order name: CT Lumbar Spine Wo Con; Complete Time: 13:25 sp3 03/24 12:27 Order name: IV Saline Lock; Complete Time: 13:04 sp3 03/24 12:27 Order name: Labs collected and sent; Complete Time: 13:04 sp3 03/24 13:15 Order name: Labs - recollect needed: recollect lavender; Complete Time: 13: eb Administered Medications: 13:04 Drug: TORadol - Ketorolac IVP 15 mg IVP once Route: IVP; Site: right forearm; kc6 13:49 Follow up: Response: No adverse reaction; Pain is unchanged, physician notified kc6 13:05 Drug: MethylPrednisoLONE IVP 60 mg IVP once Route: IVP; Site: right forearm; kc6 13:49 Follow up: Response: No adverse reaction kc6 Disposition Summary: 03/24/24 14:07 Discharge Ordered Notes: Location: Home sp3 Condition: Stable sp3 Diagnosis - Lumbar radiculopathy, right side sp3 Followup: sp3 - With: Private Physician - When: Upon discharge from the Emergency Department - Reason: Continuance of care Discharge Instructions: - Discharge Summary Sheet sp3 - Lumbosacral Radiculopathy sp3 Forms: - Medication Reconciliation Form sp3 - Antibiotic Education sp3 - Prescription Opioid Use sp3 - Patient Portal Instructions sp3 - Leadership Thank You Letter sp3 Prescriptions: - Tramadol 50 mg Oral Tablet - take 1 tablet ORAL route every 8 hours as needed; 12 tablet; Refills: 0, sp3 Product Selection Permitted - Medrol (Dylan) 4 mg Oral Tablets, Dose Pack - take 1 tablet ORAL route as directed - follow package instructions; 1 packet; sp3 Refills: 0, Product Selection Permitted Signatures: Dispatcher [employer] Sarai Fernando Lynsay RN RN ll1 Anthony Epperson MD MD sp3 Amarilys Dale RN RN kc6
--- NOTE | 2024-03-24 14:08 | ER ---
Nurse's Notes [facility] Name: Esmer Hampton Age: 84 yrs Sex: Female : 1940 Arrival Date: 03/24/2024 Time: 12:01 Bed 15 Private MD: Diagnosis: Lumbar radiculopathy, right side Presentation: 03/24 12:13 Chief complaint: Patient states: R lower back pain that radiates into R leg for 1 week. ll1 No trauma recently. Coronavirus screen: Client denies travel out of the [place] in the last 14 days. At this time, the client does not indicate any symptoms associated with coronavirus-19. Ebola Screen: Patient denies travel to an Ebola-affected area in the 21 days before illness onset. Initial Sepsis Screen: Does the patient meet any 2 criteria? No. Patient's initial sepsis screen is negative. Does the patient have a suspected source of infection? No. Patient's initial sepsis screen is negative. Risk Assessment: Do you want to hurt yourself or someone else? Patient reports no desire to harm self or others. Onset of symptoms was March 17, 2024. 12:13 Method Of Arrival: Ambulatory ll1 12:13 Acuity: MILAN 3 ll1 Triage Assessment: 12:13 General: Appears uncomfortable, Behavior is calm, cooperative, appropriate for age. ll1 Pain: Complains of pain in R lower back Pain radiates to right leg Quality of pain is described as aching. Musculoskeletal: Reports pain in right leg. Historical: - Allergies: 12:13 Codeine; ll1 - Home Meds: 12:25 simvastatin 40 mg Oral tablet 1 tab daily [Active]; aspirin 81 mg Oral capsule 1 cap ll1 daily [Active]; lisinopril 20 mg Oral tablet 1 tab daily [Active]; metoprolol tartrate 25 mg Oral tablet daily [Active]; allopurinol 300 mg Oral tablet 1 tab daily [Active]; Novolin 70/30 [place] 30 units Sub-Q twice a day [Active]; - PMHx: 12:13 diabetes mellitus; Gout; Hypercholesterolemia; Hypertensive disorder; Kidney stone; ll1 - PSHx: 12:13 back sx; cardiac stent; heart cath; sx for kidney stones; ll1 - Immunization history:: Adult Immunizations up to date. - Infectious Disease History:: Denies. - Social history:: Smoking status: Patient denies any tobacco usage or history of. Screenin:05 [facility] ED Fall Risk Assessment (Adult) History of falling in the last 3 months, kc6 including since admission No falls in past 3 months (0 pts) Confusion or Disorientation No (0 pts) Intoxicated or Sedated No (0 pts) Impaired Gait No (0 pts) Mobility Assist Device Used Yes (1 pt) Altered Elimination No (0 pt) Score/Fall Risk Level 0 - 2 = Low Risk Oriented to surroundings, Maintained a safe environment, Educated pt \T\ family on fall prevention, incl call for assistance when getting out of bed. Abuse screen: Denies threats or abuse. Denies injuries from another. Nutritional screening: No deficits noted. Tuberculosis screening: No symptoms or risk factors identified. Assessment: 13:06 General: Appears in no apparent distress. uncomfortable, well groomed, well developed, kc6 Behavior is calm, cooperative, appropriate for age. Pain: Complains of pain in right low back and right leg Pain radiates to right leg. Neuro: Level of Consciousness is awake, alert, obeys commands, Oriented to person, place, time, situation, Appropriate for age. Cardiovascular: Capillary refill < 3 seconds. Respiratory: Airway is patent Trachea midline Respiratory effort is even, labored, Respiratory pattern is regular, symmetrical, Breath sounds with wheezes bilaterally. GI: No signs and/or symptoms were reported involving the gastrointestinal system. : No signs and/or symptoms were reported regarding the genitourinary system. EENT: No signs and/or symptoms were reported regarding the EENT system. Derm: No signs and/or symptoms reported regarding the dermatologic system. Skin is intact, is healthy with good turgor, Skin is pink, warm \T\ dry. Musculoskeletal: Circulation, motion, and sensation intact. Range of motion: intact in all extremities. 14:56 Reassessment: Patient appears in no apparent distress at this time. No changes from kc6 previously documented assessment. Patient and/or family updated on plan of care and expected duration. Pain level reassessed. Patient is alert, oriented x 3, equal unlabored respirations, skin warm/dry/pink. Vital Signs: 12:13 BP 192 / 101; Pulse 70; Resp 18; Temp 97.3; Pulse Ox 96% on R/A; Weight 97.52 kg; ll1 Height 5 ft. 1 in. ; Pain 10/10; 13:06 BP 192 / 65; Pulse 75; Resp 19 S; Pulse Ox 96% on R/A; kc6 14:56 BP 186 / 89; Pulse 80; Resp 15 S; Pulse Ox 96% on R/A; kc6 12:13 Body Mass Index 40.62 (97.52 kg, 154.94 cm) ll1 12:13 Pain Scale: Adult ll1 ED Course: 12:06 Patient arrived in ED. sj2 12:07 Anthony Epperson MD is Attending Physician. sp3 12:14 Triage completed. ll1 12:14 Arm band placed on. ll1 12:37 Amarilys Dale, SARAH is Primary Nurse. kc6 12:37 Patient placed in an exam room, on a stretcher. kj2 13:05 Patient has correct armband on for positive identification. Bed in low position. Call kc6 light in reach. Side rails up X2. Adult w/ patient. Pulse ox on. NIBP on. Door closed. Noise minimized. Lights dimmed. Pillow given. 13:05 Inserted saline lock: 22 gauge in right forearm, using aseptic technique. Blood kc6 collected. Flushed with 10 mL NS. Patient maintains SpO2 saturation greater than 95% on room air. 13:11 CT Lumbar Spine Wo Con In Process Unspecified. EDMS 14:56 No provider procedures requiring assistance completed. IV discontinued, intact, kc6 bleeding controlled, No redness/swelling at site. Pressure dressing applied. Administered Medications: 13:04 Drug: TORadol - Ketorolac IVP 15 mg IVP once Route: IVP; Site: right forearm; kc6 13:49 Follow up: Response: No adverse reaction; Pain is unchanged, physician notified kc6 13:05 Drug: MethylPrednisoLONE IVP 60 mg IVP once Route: IVP; Site: right forearm; kc6 13:49 Follow up: Response: No adverse reaction kc6 Medication: 14:57 VIS not applicable for this client. kc6 Outcome: 14:07 Discharge ordered by . sp3 14:56 Discharged to home ambulatory, with significant other, kc6 14:56 Condition: good 14:56 Discharge instructions given to patient, significant other, Instructed on discharge instructions, follow up and referral plans. no drinking with medication, no driving heavy equipment, medication usage, Demonstrated understanding of instructions, follow-up care, medications, Prescriptions given X 2, 14:57 Patient left the ED. kc6 Signatures: Dispatcher [employer] EDMS Adal Hilario RN RN ll1 Anthony Epperson MD MD sp3 Amarilys Dale RN RN kc6 Vijaya Arredondo RN RN kj2 Nic Desir 2 Corrections: (The following items were deleted from the chart) 12:47 12:13 Acuity: MILAN 4 ll1 ll1
[2024-03-24 14:16] LABS: Specific Gravity 1.018 (1.005-1.030); Sqamous Epithelial <5 /HPF (None Seen); Urine Bacteria 20-50 /HPF (<20); Urine Bilirubin NEGATIVE (Negative); Urine Blood Negative (Negative); Urine Clarity Turbid (Clear); Urine Color Light-Yellow (Yellow); Urine Culture Reflex Order NOT NEEDED; Urine Glucose NEGATIVE (Negative); Urine Ketones NEGATIVE (Negative); Urine Micro Reflex YN NO BILL MICROSCOPIC; Urine Mucus Slight /HPF (None Seen); Urine Nitrite 2+ (Negative); Urine Protein NEGATIVE (Negative); Urine RBC <5 /HPF (None Seen); Urine Urobilinogen Normal (Normal); Urine WBC <5 /HPF (<5)
[2024-03-24 15:01] VITALS: TEMP 97.3; O2SAT 96
[2024-03-24 15:03] VITALS: BP 186/89
== END 2024-03-24 14:57 | disposition home or self-care (01) ==
LOC: ER 12:01
DX: M54.16 Radiculopathy, lumbar region (principal); E11.9 Type 2 diabetes mellitus without complications; I10 Essential (primary) hypertension; E78.00 Pure hypercholesterolemia, unspecified; Z79.899 Other long term (current) drug therapy; Z88.5 Allergy status to narcotic agent
CPT/HCPCS: 85025; 81001; 36415; 80053; 72131; 96375; 96374; 99284; J2919

== ENCOUNTER 2024-06-27 15:55 | Emergency (ER) | payer OTHER, MEDICARE ==
--- OUTSIDE RECORDS SUMMARY | 2024-06-27 16:51 | XMS REPORT | Continuity of Care Document ---
Author Name Unknown Address [address] [facility] [place] [address] [facility] Address [address] [facility] [address] [facility] [place] [address] Care Team Providers Care Community [facility] Counselor Name Role Phone Carol Lowry Attending Clinician PADDY Zuniga Attending Clinician PADDY Sanchez Attending Clinician Lala Delarosa Attending Clinician WAYNE MARS Attending Clinician Unavailable Chet Attending Clinician Unavaila Rafael Yu Attending Clinician UnavailLeroy Ingram Attending Clinician Unavailable TERESITA QUINTEROS Attending Clinician Unavailable Piotr Hartley Attending Clinician [phone] Hermelindo Worley Attending Clinician Tanvi vailable GEORGE FARFAN Attending Clinician Unavailable WAYNE MARS Admitting Clinician Unavailable Chet Admitting Clinician Unavaila Carol Smith Admitting Clinician Unavailab TERESITA Phillips Admitting Clinician Unavailable Hermelindo Worley Admitting Clinician Tanvi vailable Payers Payer Name Policy Type Policy Number Effective Date Expira tion Date Source [facility] Medicare Supplemental 53 [id number] [facility] [place] OF [place] 1 [id number] [facility] MEDICARE SUPPLEMENT [id number] 2006 00:00:00 [place] SOLUT[place] [id number] 2006 00:00:00 [facility] HEALTHCARE - OPTIONS [id number] 2021 00:00:00 Problems Condition Name Condition Details Condition Category Status Onset Date Resolution Date Last Treatment Date Treating Clinician Comments Source Closed displaced trimalleol ar fracture of right lower leg Closed displaced trimalleol ar fracture of right lower leg Disease Active 08-16 00:00: 00 [facility] Closed nondisplac ed transverse fracture of right patella with routine healing Closed nondisplac ed transverse fracture of right patella with routine healing Disease Active 08-16 00:00: 00 [facility] Spinal stenosis in cervical region Spinal Stenosis in Cervical Region Problem Active 2-14 00:00: 00 [facility] Cervical spondylosi s Cervical Spondylosi s Problem Active 10-23 00:00: 00 [facility] Impingemen t syndrome of left shoulder region Impingemen t Syndrome of Left Shoulder Region Problem Active 10-23 00:00: 00 [facility] Pain of right shoulder joint Pain of Right Shoulder Joint Problem Active - 00:00: 00 [facility] Cervical radiculopa thy Cervical Radiculopa thy Problem Active - 00:00: 00 [facility] Pain of left shoulder joint Pain of Left Shoulder Joint Problem Active 07-03 00:00: 00 [facility] Pathologic al fracture - upper arm Age-relate d osteoporos is with current pathologic al fracture, left humerus, initial encounter for fracture Problem [facility] Localized edema Localized edema Problem [facility] Primary gout Idiopathic gout, right ankle and foot Problem [facility] Carpal tunnel syndrome Carpal tunnel syndrome, unspecifie d upper limb Problem [facility] [id number] Body mass index [BMI] 38.0-38.9, adult Problem [facility] Constipati on Constipati on, unspecifie d Problem [facility] Fall Unspecifie d fall, subsequent encounter Problem [facility] Shoulder joint pain Pain in right shoulder Problem [facility] Disuse osteoporos is Age-relate d osteoporos is with current pathologic al fracture, unspecifie d site, subsequent encounter for fracture with routine healing Problem [facility] Pathologic al fracture of ankle due to osteoporos is Age-relate d osteoporos is with current pathologic al fracture, left ankle and foot, subsequent encounter for fracture with delayed healing Problem [facility] Acute sinusitis (disorder) Other acute sinusitis Problem [facility] 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 Resistance to other specified beta lactam antibiotic s Problem [facility] Spasm of back muscles Muscle spasm of back Problem [facility] Chronic sinusitis Other chronic sinusitis Problem [facility] Menopause Menopausal and female climacteri c states Problem [facility] Obstructiv e sleep apnea syndrome Obstructiv e sleep apnea (adult) (pediatric ) Problem [facility] Hypothyroi dism Hypothyroi dism, unspecifie d Problem [facility] Vitamin D deficiency Vitamin D deficiency Problem [facility] Hereditary and idiopathic peripheral neuropathy Hereditary and idiopathic neuropathy , unspecifie d Problem [facility] Acute frontal sinusitis Acute frontal sinusitis, unspecifie d Problem [facility] Post-ijeoma ectomy syndrome Postlamine ctomy syndrome, not elsewhere classified Problem [facility] Screening for malignant neoplasm of breast Encounter for screening mammogram for malignant neoplasm of breast Problem [facility] Postmenopa usal state Asymptomat ic menopausal state Problem [facility] Arthralgia of temporoman dibular joint Arthralgia of right temporoman dibular joint Problem [facility] Frequency of micturitio n Frequency of micturitio n Problem [facility] Acute upper respirator y infection Acute upper respirator y infection, unspecifie d Problem [facility] Fatigue Other fatigue Problem [facility] Abnormal findings on diagnostic imaging of breast Other abnormal and inconclusi ve findings on diagnostic imaging of breast Problem [facility] Generalize d abdominal pain Generalize d abdominal pain Problem [facility] Shortness of breath Shortness of breath Problem [facility] Wheezing Wheezing Problem [facility] Age-relate d osteoporos is Age-relate d osteoporos is without current pathologic al fracture Problem [facility] Dietary management surveillan ce Dietary counseling and surveillan ce Problem [facility] Hyperglyce clair due to type 2 diabetes mellitus Type 2 diabetes mellitus with hyperglyce clair Problem [facility] Acute maxillary sinusitis Acute maxillary sinusitis, unspecifie d Problem [facility] Degenerati on of lumbar interverte bral disc Other interverte bral disc degenerati on, lumbar region Problem [facility] Body mass index 35.00 to 39.99 Body mass index (BMI) 39.0-39.9, adult Problem [facility] Right hip pain Pain in right hip Problem [facility] Arthralgia of the lower leg Pain in unspecifie d knee Problem [facility] Diabetic neuropathy Diabetes mellitus due to underlying condition with diabetic neuropathy , unspecifie d Problem [facility] Lumbosacra l spondylosi s without myelopathy Spondylosi s without myelopathy or radiculopa thy, lumbosacra l region Problem [facility] Cervicalgi a Cervicalgi a Problem [facility] Essential hypertensi on Essential (primary) hypertensi on Problem [facility] Mixed hyperlipid emia Mixed hyperlipid emia Problem [facility] Hyperlipid emia Hyperlipid emia, unspecifie d hyperlipid emia type Problem [facility] Carotid artery occlusion Occlusion and stenosis of unspecifie d carotid artery Problem [facility] Backache Other dorsalgia Problem [facility] Gastro-eso phageal reflux disease with esophagiti s Gastro-eso phageal reflux disease with esophagiti s Problem [facility] Peripheral vascular disease Peripheral vascular disease, unspecifie d Problem [facility] Conductive hearing loss, bilateral Conductive hearing loss, bilateral Problem [facility] Degenerati on of lumbosacra l interverte bral disc Other interverte bral disc degenerati on, lumbosacra l region Problem [facility] Early onset cerebellar ataxia Early-onse t cerebellar ataxia Problem [facility] Diabetes mellitus associated with pancreatic disease Diabetes mellitus due to underlying condition with hypoglycem ia without coma Problem [facility] Localized, 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 Problem [facility] Allergic rhinitis Allergic rhinitis, unspecifie d Problem [facility] Screening for malignant neoplasm of colon Encounter for screening for malignant neoplasm of colon Problem [facility] Morbid obesity Morbid (severe) obesity due to excess calories Problem [facility] Chronic kidney disease stage 3 Chronic kidney disease, stage 3 (moderate) Problem [facility] Atheroscle rosis of coronary artery without angina pectoris Atheroscle rosis of [place] coronary artery of [place] heart without angina pectoris Problem [facility] Chest pain Chest pain, unspecifie d Problem [facility] Diabetic peripheral neuropathy associated with type 2 diabetes mellitus Type 2 diabetes mellitus with diabetic neuropathy , unspecifie d Problem [facility] Spasm Other muscle spasm Problem [facility] Polyneurop athy Polyneurop athy, unspecifie d Problem [facility] [id number] 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 Problem [facility] Vaccinatio n given Encounter for immunizati on Problem [facility] Cracked tooth Cracked tooth Problem [facility] [id number] Gastro-eso phageal reflux disease without esophagiti s Problem [facility] Body mass index 40+ - severely obese Body mass index (BMI) 40.0-44.9, adult Problem [facility] Acute gingivitis Acute gingivitis , plaque induced Problem [facility] Acute bronchitis Acute bronchitis , unspecifie d Problem [facility] Reporting test result Person consulting for explanatio n of examinatio n or test findings Problem [facility] 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 Problem [facility] Arthralgia of the ankle and/or foot Pain in left ankle and joints of left foot Problem Sushil thompson 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, unspecifie d type Problem Sushil thompson Cough Cough Problem Sushil thompson [id number] Gouty arthritis Problem Sushil thompson Adjustment insomnia Adjustment insomnia Problem Sushil thompson Low back pain Low back pain Problem Sushil thompson Hereditary and idiopathic neuropathy , unspecifie d Hereditary and idiopathic neuropathy , unspecifie d Active Problem 05/17/2020 Sushil Hickman s Problem Active 2020-05-17 02:48:03 Nicole Tierney Postlamine ctomy syndrome, 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, not elsewhere classified Active Problem 05/17/2020 Sush[facility] Hickman s Problem Active 2020-05-17 02:48:03 Nicole Tierney Vitamin D deficiency , unspecifie d Vitamin D deficiency , unspecifie d Active Problem 05/17/2020 Sushil Hickman s Problem Active 2020-05-17 02:48:03 Nicole Tierney Occlusion and stenosis of unspecifie d carotid artery Occlusion and stenosis of unspecifie d carotid artery Active Problem 05/17/2020 Sushil Hickman s Problem Active 2020-05-17 02:48:03 Nicole Tierney Gastro-eso phageal reflux disease with esophagiti s Gastro-eso phageal reflux disease with esophagiti s Active Problem 05/17/2020 Sushil Rosariotie s Problem Active 2020-05-17 02:48:03 Nicole Tierney Pain in unspecifie d knee Pain in unspecifie d knee Active Problem 05/17/2020 Sushil Rosariotie s Problem Active 2020-05-17 02:48:03 Nicole Tierney Frequency of micturitio n Frequency of micturitio n Active Problem 05/17/2020 [facility] Problem Active 2020-05-17 02:48:03 Nicole Tierney Asymptomat ic menopausal state Asymptomat ic menopausal state Active Problem 05/17/2020 [facility] Problem Active 2020-05-17 02:48:03 Nicole Tierney Other chronic sinusitis Other chronic sinusitis Active Problem 05/17/2020 [facility] Problem Active 2020-05-17 02:48:03 Memdenise Tierney Atheroscle rotic heart disease of [place] coronary artery without angina pectoris Atheroscle rotic heart disease of [place] coronary artery without angina pectoris Active Problem 05/17/2020 [facility] Problem Active 2020-05-17 02:48:03 Memdenise Tierney Generalize d abdominal pain Generalize d abdominal pain Active Problem 05/17/2020 [facility] Problem Active 2020-05-17 02:48:03 Memdenise Tierney Chest pain, unspecifie d Chest pain, unspecifie d Active Problem 05/17/2020 [facility] Problem Active 2020-05-17 02:48:03 Nicole Tierney Essential (primary) hypertensi on Essential (primary) hypertensi on Active Problem 05/17/2020 [facility] Problem Active 2020-05-17 02:48:03 Memdenise Tierney Other constipati on Other constipati on Active Problem 05/17/2020 [facility] Problem Active 2020-05-17 02:48:03 Nicole Tierney Pain in right shoulder Pain in right shoulder Active Problem 05/17/2020 [facility] Problem Active 2020-05-17 02:48:03 Nicole Tierney Carpal tunnel syndrome, unspecifie d upper limb Carpal tunnel syndrome, unspecifie d upper limb Active Problem 05/17/2020 [facility] Problem Active 2020-05-17 02:48:03 Nicole Tierney Pain in left ankle and joints of left foot Pain in left ankle and joints of left foot Active Problem 05/17/2020 [facility] Problem Active 2020-05-17 02:48:03 Nicole Tierney Low back pain Low back pain Active Problem 05/17/2020 [facility] Problem Active 2020-05-17 02:48:03 Nicole Tierney Obstructiv e sleep apnea (adult) (pediatric ) Obstructiv e sleep apnea (adult) (pediatric ) Active Problem 05/17/2020 [facility] Problem Active 2020-05-17 02:48:03 Memdenise Tierney Wheezing Wheezing Active Problem 05/17/2020 [facility] Problem Active 2020-05-17 02:48:03 Nicole Tierney Cracked tooth Cracked tooth Active Problem 05/17/2020 [facility] Problem Active 2020-05-17 02:48:03 Nicole Tierney Localized edema Localized edema Active Problem 05/17/2020 [facility] Problem Active 2020-05-17 02:48:03 Nicole Tierney Mixed hyperlipid emia Mixed hyperlipid emia Active Problem 05/17/2020 [facility] Problem Active 2020-05-17 02:48:03 Nicole Tierney Acute gingivitis , plaque induced Acute gingivitis , plaque induced Active Problem 05/17/2020 [facility] Problem Active 2020-05-17 02:48:03 Nicole Tierney Age-relate d osteoporos is with current pathologic al fracture, unspecifie d site, subsequent encounter for fracture with routine healing Age-relate d osteoporos is with current pathologic al fracture, unspecifie d site, subsequent encounter for fracture with routine healing Active Problem 05/17/2020 [facility] Problem Active 2020-05-17 02:48:03 Nicole Tierney Unspecifie d fall, subsequent encounter Unspecifie d fall, subsequent encounter Active Problem 05/17/2020 [facility] Problem Active 2020-05-17 02:48:03 Nicole Tierney Other muscle spasm Other muscle spasm Active Problem 05/17/2020 [facility] Problem Active 2020-05-17 02:48:03 Nicole Tierney Age-relate d osteoporos is with current pathologic al fracture, left ankle and foot, subsequent encounter for fracture with delayed healing Age-relate d osteoporos is with current pathologic al fracture, left ankle and foot, subsequent encounter for fracture with delayed healing Active Problem 05/17/2020 [facility] Problem Active 2020-05-17 02:48:03 Nicole Tierney Other interverte bral disc degenerati on, lumbosacra l region Other interverte bral disc degenerati on, lumbosacra l region Active Problem 05/17/2020 [facility] Problem Active 2020-05-17 02:48:03 Nicole Tierney Cough Cough Active Problem 05/17/2020 [facility] Problem Active 2020-05-17 02:48:03 Memdenise Tierney Other interverte bral disc degenerati on, lumbar region Other interverte bral disc degenerati on, lumbar region Active Problem 05/17/2020 Sushil palomino Problem Active 2020-05-17 02:48:03 Memdenise Tierney Acute bronchitis , unspecifie d Acute bronchitis , unspecifie d Active Problem 05/17/2020 Sushil palomino Problem Active 2020-05-17 02:48:03 Memdenise Tierney Peripheral vascular disease, unspecifie d Peripheral vascular disease, unspecifie d Active Problem 05/17/2020 Sushil palomino Problem Active 2020-05-17 02:48:03 Nicole Tierney Other fatigue Other fatigue Active Problem 05/17/2020 Sushil palomino Problem Active 2020-05-17 02:48:03 Nicole Tierney Early-onse t cerebellar ataxia Early-onse t cerebellar ataxia Active Problem 05/17/2020 Sushil palomino Problem Active 2020-05-17 02:48:03 Nicole Tierney Shortness of breath Shortness of breath Active Problem 05/17/2020 Sushil palomino Problem Active 2020-05-17 02:48:03 Nicole Tierney Spondylosi s without myelopathy or radiculopa thy, lumbosacra l region Spondylosi s without myelopathy or radiculopa thy, lumbosacra l region Active Problem 05/17/2020 Sushil palomino Problem Active 2020-05-17 02:48:03 Nicole Tierney Type 2 diabetes mellitus with hyperglyce clair Type 2 diabetes mellitus with hyperglyce clair Active Problem 05/17/2020 Sushil palomino Problem Active 2020-05-17 02:48:03 Memdenise Tierney Other abnormal and inconclusi ve findings on diagnostic imaging of breast Other abnormal and inconclusi ve findings on diagnostic imaging of breast Active Problem 05/17/2020 Sushil palomino Problem Active 2020-05-17 02:48:03 Memdenise Tierney Morbid (severe) obesity due to excess calories Morbid (severe) obesity due to excess calories Active Problem 05/17/2020 Sushil palomino Problem Active 2020-05-17 02:48:03 Nicole Tierney Adjustment insomnia Adjustment insomnia Active Problem 05/17/2020 [facility] Problem Active 2020-05-17 02:48:03 Nicole Tierney Behavioral insomnia of childhood, 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, unspecifie d type Active Problem 05/17/2020 [facility] Problem Active 2020-05-17 02:48:03 Nicole Tierney Encounter for screening mammogram for malignant neoplasm of breast Encounter for screening mammogram for malignant neoplasm of breast Active Problem 05/17/2020 [facility] Problem Active 2020-05-17 02:48:03 Nicole Tierney Acute frontal sinusitis, unspecifie d Acute frontal sinusitis, unspecifie d Active Problem 05/17/2020 [facility] Problem Active 2020-05-17 02:48:03 Nicole Tierney Age-relate d osteoporos is with current pathologic al fracture, left humerus, initial encounter for fracture Age-relate d osteoporos is with current pathologic al fracture, left humerus, initial encounter for fracture Active Problem 05/17/2020 Sushil Rosariotie s Problem Active 2020-05-17 02:48:03 Nicole Tierney Chronic sinusitis, unspecifie d Chronic sinusitis, unspecifie d Active Problem 05/17/2020 [facility] Problem Active 2020-05-17 02:48:03 Nicole Tierney Other acute sinusitis Other acute sinusitis Active Problem 05/17/2020 [facility] Problem Active 2020-05-17 02:48:03 Nicole Tierney Muscle spasm of back Muscle spasm of back Active Problem 05/17/2020 [facility] Problem Active 2020-05-17 02:48:03 Nicole Tierney Arthralgia of right temporoman dibular joint Arthralgia of right temporoman dibular joint Active Problem 05/17/2020 [facility] Problem Active 2020-05-17 02:48:03 Nicole Tierney Acute upper respirator y infection, unspecifie d Acute upper respirator y infection, unspecifie d Active Problem 05/17/2020 [facility] Problem Active 2020-05-17 02:48:03 Nicole Tierney Resistance to other specified beta lactam antibiotic s Resistance to other specified beta lactam antibiotic s Active Problem 05/17/2020 [facility] Problem Active 2020-05-17 02:48:03 Nicole Tierney Hypothyroi dism, unspecifie d Hypothyroi dism, unspecifie d Active Problem 05/17/2020 [facility] Problem Active 2020-05-17 02:48:03 Nicole Tierney Menopausal and female climacteri c states Menopausal and female climacteri c states Active Problem 05/17/2020 [facility] Problem Active 2020-05-17 02:48:03 Memdenise Tierney Cervicalgi a Cervicalgi a Active Problem 05/17/2020 [facility] Problem Active 2020-05-17 02:48:03 Nicole Tierney Hyperlipid emia, unspecifie d Hyperlipid emia, unspecifie d Active Problem 05/17/2020 [facility] Problem Active 2020-05-17 02:48:03 Nicole Tierney Other dorsalgia Other dorsalgia Active Problem 05/17/2020 [facility] Problem Active 2020-05-17 02:48:03 Nicole Tierney Age-relate d osteoporos is without current pathologic al fracture Age-relate d osteoporos is without current pathologic al fracture Active Problem 05/17/2020 [facility] Problem Active 2020-05-17 02:48:03 Nicole Tierney Dietary counseling and surveillan ce Dietary counseling and surveillan ce Active Problem 05/17/2020 [facility] Problem Active 2020-05-17 02:48:03 Nicole Tierney Acute maxillary sinusitis, unspecifie d Acute maxillary sinusitis, unspecifie d Active Problem 05/17/2020 [facility] Problem Active 2020-05-17 02:48:03 Nicole Tierney Body mass index (BMI) 39.0-39.9, adult Body mass index (BMI) 39.0-39.9, adult Active Problem 05/17/2020 [facility] Problem Active 2020-05-17 02:48:03 Nicole Tierney Person consulting for explanatio n of examinatio n or test findings Person consulting for explanatio n of examinatio n or test findings Active Problem 05/17/2020 Sushil palomino Problem Active 2020-05-17 02:48:03 Nicole Tierney Diabetes mellitus due to underlying condition with hypoglycem ia without coma Diabetes mellitus due to underlying condition with hypoglycem ia without coma Active Problem 05/17/2020 Sushil palomino Problem Active 2020-05-17 02:48:03 Nicole Tierney Pain in right hip Pain in right hip Active Problem 05/17/2020 Sushil palomino Problem Active 2020-05-17 02:48:03 Nicole Tierney Diabetes mellitus due to underlying condition with diabetic neuropathy , unspecifie d Diabetes mellitus due to underlying condition with diabetic neuropathy , unspecifie d Active Problem 05/17/2020 Sushil palomino Problem Active 2020-05-17 02:48:03 Nicole Tierney Encounter for immunizati on Encounter for immunizati on Active Problem 05/17/2020 Sushil palomino Problem Active 2020-05-17 02:48:03 Nicole Tierney Body mass index (BMI) 40.0-44.9, adult Body mass index (BMI) 40.0-44.9, adult Active Problem 05/17/2020 Sushil palomino Problem Active 2020-05-17 02:48:03 Nicole Tierney Periapical abscess without sinus Periapical abscess without sinus Active Diagnosis 10/16/2018 Sushil palomino Diagnosis Active 2018-10-16 02:45:30 Nicole Tierney 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 Active Problem 05/17/2020 Sushil palomino Problem Active 2020-05-17 02:48:03 Nicole Tierney Allergic rhinitis, unspecifie d Allergic rhinitis, unspecifie d Active Problem 05/17/2020 Sushil palomino Problem Active 2020-05-17 02:48:03 Nicole Tierney BATSHEVA - Obstructiv e sleep apnea (adult) (pediatric ) BATSHEVA - Obstructiv e sleep apnea (adult) (pediatric ) Active Problem 12/26/2014 Sushil palomino Problem Active 2014-12-26 03:48:59 Nicole Tierney SOB - Shortness of breath SOB - Shortness of breath Active Problem 12/26/2014 Sushil palomino Problem Active 2014-12-26 03:48:59 Memoria roshan Tierney Fatigue and Generalize d Weakness Fatigue and Generalize d Weakness Active Problem 12/26/2014 Sushil palomino Problem Active 2014-12-26 03:48:59 Memdenise Tierney Urinary frequency Urinary frequency Active Problem 12/26/2014 Sushil palomino Problem Active 2014-12-26 03:48:59 Memdenise Tierney knee pain knee pain Active Problem 12/26/2014 Sushil palomino Problem Active 2014-12-26 03:48:59 Memoria roshan Tierney Unspecifie d vitamin D deficiency Unspecifie d vitamin D deficiency Active Problem 12/26/2014 Sushil palomino Problem Active 2014-12-26 03:48:59 Memdenise Tierney Other chronic sinusitis Other chronic sinusitis Active Problem 12/26/2014 Sushil palomino Problem Active 2014-12-26 03:48:59 Memdenise Tierney Asymptomat ic postmenopa usal status (age-relat ed) (natural) Asymptomat ic postmenopa usal status (age-relat ed) (natural) Active Problem 12/26/2014 Sushil aplomino Problem Active 2014-12-26 03:48:59 iNcole Tierney GERD - Reflux esophagiti s GERD - Reflux esophagiti s Active Problem 12/26/2014 Sushil palomino Problem Active 2014-12-26 03:48:59 Memoria roshan Tierney Abdominal pain, generalize d Abdominal pain, generalize d Active Problem 12/26/2014 Sushil palomino Problem Active 2014-12-26 03:48:59 Memdenise Tierney DM type 2 Diabetes mellitus without mention of complicati on, type II or unspecifie d type, uncontroll ed DM type 2 Diabetes mellitus without mention of complicati on, type II or unspecifie d type, uncontroll ed Active Problem 12/26/2014 Sushil palomino Problem Active 2014-12-26 03:48:59 Nicole Tierney HTN - Unspecifie d essential hypertensi on HTN - Unspecifie d essential hypertensi on Active Problem 12/26/2014 Sushil palomino Problem Active 2014-12-26 03:48:59 Memdenise Tierney Mixed hyperlipid emia Mixed hyperlipid emia Active Problem 12/26/2014 Sushil palomino Problem Active 2014-12-26 03:48:59 Memoria roshan Tierney Wheezing Wheezing Active Problem 12/26/2014 Sushil palomino Problem Active 2014-12-26 03:48:59 Memoria roshan Tierney Unspecifie d peripheral vascular disease Unspecifie d peripheral vascular disease Active Problem 12/26/2014 Sushil palomino Problem Active 2014-12-26 03:48:59 Memoria roshan Tierney 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 Active Problem 12/26/2014 Sushil Hickman s Problem Active 2014-12-26 03:48:59 Memoria roshan Tierney Enlargemen t of lymph nodes Enlargemen t of lymph nodes Active Diagnosis 09/06/2014 Sushil palomino Diagnosis Active 2014-09-06 02:45:50 Memoria roshan Tierney Unspecifie d abnormal mammogram Unspecifie d abnormal mammogram Active Problem 12/26/2014 Sushil Hickman s Problem Active 2014-12-26 03:48:59 Memoria roshan Tierney Other cerebellar ataxia Other cerebellar ataxia Active Problem 12/26/2014 Sushil palomino Problem Active 2014-12-26 03:48:59 Memoria roshan Tierney 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 and stenosis of carotid 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 Active Problem 12/26/2014 Sushil palomino Problem Active 2014-12-26 03:48:59 Memoria roshan Tierney Postlamine ctomy syndrome, lumbar region Postlamine ctomy syndrome, lumbar region Active Problem 12/26/2014 Sushil Hickman s Problem Active 2014-12-26 03:48:59 Memoria roshan Tierney Degenerati on of lumbar or lumbosacra l interverte bral disc Degenerati on of lumbar or lumbosacra l interverte bral disc Active Problem 12/26/2014 Sushil palomino Problem Active 2014-12-26 03:48:59 Memoria roshan Tierney Lumbosacra l spondylosi s without myelopathy Lumbosacra l spondylosi s without myelopathy Active Problem 12/26/2014 Sushil Hickman s Problem Active 2014-12-26 03:48:59 Memoria roshan Tierney Cracked tooth Cracked tooth Active Problem 12/26/2014 Sushil palomino Problem Active 2014-12-26 03:48:59 Jodydenise roshan Tierney Acute gingivitis , plaque induced Acute gingivitis , plaque induced Active Problem 12/26/2014 Sushil palomino Problem Active 2014-12-26 03:48:59 Nicole Tierney Allergic rhinitis due to pollen Allergic rhinitis due to pollen Active Diagnosis 04/05/2014 Sushil Hickman s Diagnosis Active 2014-04-05 03:51:03 Nicole Tierney Allergies, Adverse Reactions, Alerts Allergy Name Allergy Type Status Severity Reaction(s) Onset Date Inactive Date Treating Clinician Comments Source Codeine Propensi ty to adverse reaction s Active 08-03 00:00: 00 [facility] kvng calderon Active itch 2017-02 00:00: 00 Nicole Tierney codeine DA Active ID 07-26 00:00: 00 [facility] propoxyp hene DA Active SV 07-26 00:00: 00 [facility] codeine DA Active ID ITCHING 07-26 00:00: 00 [facility] propoxyp hene DA Active SV CHEST HURT 07-26 00:00: 00 [facility] Codeine Allergy to substanc e Active 06-18 00:00: 00 [facility] No Known Allergie s DA Active [facility] Social History Social Habit Start Date Stop Date Quantity Comments Source Sexual orientation [facility] Sex Assigned At [facility] Useofrecreational/st reetdrugs? 2016-03-04 00:00:00 2016-03-04 00:00:00 [place] Niall Smoking Status Start Date Stop Date Source Unknown if ever smoked [facility] Never Smoker [facility] Medications Ordered Medication Name Filled Medication Name Start Date Stop Date Current Medication? Ordering Clinician Indication Dosage Frequency Signature (SIG) Comments Components Source FreeStyle King 3 Rogers - FreeStyle King 3 Rogers - 08-17 00:00: 00 No FreeStyle King 3 Rogers - FreeStyle King 3 Sensor - FreeStyle King 3 Sensor - 08-17 00:00: 00 No FreeStyle King 3 Sensor - traMADol (Ultram) 50 MG tablet 08-16 00:00: 00 Yes [id number] 50mg Take 1 tablet (50 mg total) by mouth every 8 (eight) hours if needed for severe pain (Take only as needed for severe pain.). [facility] gabapentin (Neurontin) 300 MG capsule 08-03 00:00: 00 08-04 04:59 :00 No [id number] 300mg [id number] 3D Take 1 capsule (300 mg total) by mouth in the morning and 1 capsule (300 mg total) at noon and 1 capsule (300 mg total) in the evening. [facility] naloxone (Narcan) 4 mg/0.1 mL nasal spray 08-03 00:00: 00 08-04 04:59 :00 No [id number] 4mg Administer 1 spray (4 mg total) into affected nostril(s) if needed for opioid reversal. May repeat every 2-3 minutes if needed, alternatin g nostrils, until medical assistance becomes available. [facility] lidocaine (Lidoderm) 5 % patch 08-03 00:00: 00 09-03 04:59 :00 No [id number] 1{patch } QD Apply 1 patch topically 1 (one) time each day. Remove & discard patch within 12 hours or as directed by . [facility] traMADol (Ultram) 50 MG tablet 08-03 00:00: 00 08-16 00:00 :00 No [id number] 50mg Take 1 tablet (50 mg total) by mouth every 8 (eight) hours if needed for severe pain (Take only as needed for severe pain.). [facility] FreeStyle King Rogers - FreeStyle King Rogers - 07-26 00:00: 00 No FreeStyle King Rogers - Lancets - Lancets - 07-26 00:00: 00 No Lancets - FreeStyle Test - FreeStyle Test - 07-26 00:00: 00 No TID FreeStyle Test - Aspir-81 mg tablet,randolph yed release Aspir-81 mg tablet,randolph yed release 07-09 00:00: 00 No Aspir-81 mg tablet,del ayed release [facility] cetirizine 5 mg tablet cetirizine 5 mg tablet 07-09 00:00: 00 No cetirizine 5 mg tablet [facility] traZODone HCl 50 MG traZODone HCl 50 MG 05-29 00:00: 00 No 1{table t_at_be dtime_a s_neede d} QD traZODone HCl 50 MG Simvastatin 05-17 02:47: 52 Yes Nedal Edgar 1 tablet in the evening Nicole Tierney Cetirizine HCl 05-17 02:47: 52 Yes Nedal Edgar 1 tablet Memor ia roshan Tierney Amoxicillin -Pot Clavulanate 05-17 02:47: 52 Yes Nedal Edgar not defined Nicole Tierney Krystyna Aspirin 05-17 02:47: 52 Yes Nedal Edgar 1 tablet Memor ia roshan Tierney MiraLax 05-17 02:47: 52 Yes Nedal Edgar not defined Nicole Tierney Plavix 05-17 02:47: 52 Yes Nedal Edgar 1 tablet Memor ia roshan Tierney ReliOn /30 05-17 02:47: 52 Yes Nedal Edgar 50 units am and 30 units pm Nicole Tierney Metoprolol Succinate ER 05-17 02:47: 52 Yes Nedal Edgar 1 tablet Memor ia roshan Tierney Novolin 70/30 05-17 02:47: 52 Yes Nedal Edgar 50 units in am and 40 units in pm Nicole Tierney Vitamin C 05-17 02:47: 52 Yes Nedal Edgar 1 tablet Memor ia roshan Tierney Omeprazole 05-17 02:47: 52 Yes Nedal Edgar 1 capsule Alfredo renetta roshan Tierney Accu-Chek Vivi Plus 05-17 02:47: 52 Yes Nedal Edgar use as directed Memoria roshan Tierney Lisinopril 05-17 02:47: 52 Yes Nedal Edgar 1 TABLET ONCE A DAY ORALLY 90 DAYS Memoria roshan Tierney Prevacid 05-17 02:47: 52 Yes Nedal Edgar 1 capsule before a meal Memoria roshan Tierney Accu-Chek Vivi Plus w/Device Accu-Chek Vivi Plus w/Device 2019-0 420 00:00: 00 No Accu-Chek Vivi Plus w/Device Omeprazole 0 05-18 02:45: 00 Yes Carol PeckSamman 1 capsule Memoria roshan Tierney Accu-Chek Vivi Plus 0 11-10 02:46: 27 Yes Jimmy zzzAmer use as directed Memoria roshan Tierney Prevacid 11-10 02:46: 27 Yes Jimmy zzzAmer 1 capsule before a meal Memoria roshan Tierney Lisinopril 0 11-10 02:46: 27 Yes Jimmy zzzAmer 1 TABLET ONCE A DAY ORALLY 90 DAYS Memoria roshan Tierney Omeprazole 0 10-16 02:45: 30 Yes Carol PeckSamman TAKE 1 CAPSULE DAILY Memoria roshan Niall Doxycycline Hyclate 2017-02 00:00: 00 Yes Nedal Edgar 1 capsule Alfredo renetta roshan Niall PredniSONE 2017-02 00:00: 00 Yes Nedal Edgar 1 tablet Memor ia roshan Tierney Valium 2017-02 2 00:00: 00 Yes Nedal Edgar 1 tablet Memor ia roshan Niall Levofloxaci n 18 00:00: 00 Yes Nedal Edgar 1 tablet Memor ia roshan Niall Amoxicillin 9 00:00: 00 Yes Nedal Edgar 1 tablet Memor ia roshan Tierney Medrol (Dylan) 0 3- 00:00: 00 Yes Jimmy zzzAmer as directed Memoria roshan Cameron Hydrocodone -Acetaminop hen 04-06 00:00: 00 Yes Carol Lew-Samma n 1 tablet as needed Memoria roshan Tierney Panacea 0 1-11 00:00: 00 Yes Carol Lew-Samma n 1 tablet as needed Memoria l Niall Voltaren 03-02 00:00: 00 Yes Nedal Edgar one applicatio n Memoria l Niall Tamiflu 02-23 00:00: 00 Yes Nedal Edgar 1 capsule Alfredo renetta roshan Tierney Famotidine 2016-02 00:00: 00 Yes Nedal Edgar 1 tablet Memor ia l Niall Ibuprofen 2016-02 00:00: 00 Yes Carol Lew-Samma n 1 tablet with food or milk Memoria l Niall Duexis 2016-02 00:00: 00 Yes Carol Lew-Samma n 1 tablet Memoria l Niall Flexeril 2016-02 00:00: 00 Yes Carol Lew-Samma n 1 tablet as needed Memoria l Niall Clindamycin HCl 2016-02 00:00: 00 Yes Carol PeckSamman 1 capsule Memoria rosahn Tierney Prevacid 2016-02 03:46: 27 Yes Carol Lew-Samma n 1 capsule before a meal Memoria l Niall Amoxicillin -Pot Clavulanate 2016-02 00:00: 00 Yes Carol PeckSamman 1 tablet Memoria roshan Tierney ReliOn 70/30 905 02:45: 12 Yes Jimmy Kerns 50 units am and 30 units pm Memoria roshan Tierney Zyrtec Allergy 16 00:00: 00 Yes Carol Lew-Samma n 1 capsule as needed Memoria roshan Tierney Hydrocodone -Acetaminop hen 09-02 00:00: 00 Yes Carol Lew-Samma n 1 tablet as needed Memoria roshan Tierney Tramadol HCl 09-01 00:00: 00 Yes Carol Lew-Samma n 1 tablet as needed Memoria roshan Tierney Amoxicillin 07-06 00:00: 00 Yes Carol Lew-Samma n 1 tablet Memoria roshan Tierney Omeprazole 05-04 02:50: 25 Yes Carol Lew-Samma n 1 capsule Memoria roshan Tierney Accu-Chek Vivi Plus 08 03:52: 24 Yes Carol Lew-Samma n use as directed Nicole Tierney Plavix 04-29 03:52: 24 Yes Carol Lew-Samma n 1 tablet Memdenise Tierney Krystyna Aspirin 04-29 03:52: 24 Yes Carol Lew-Samma n 1 tablet Memdenise Tierney Simvastatin 04-29 03:52: 24 Yes Carol Lew-Samma n 1 tablet in the evening Memdenise Tierney Vitamin C 04-29 03:52: 24 Yes Carol Lew-Samma n 1 tablet Memdenise Tierney Zyrtec Allergy 04-29 03:52: 24 Yes Carol Lew-Samma n 1 capsule as needed Nicole Tierney MiraLax 04-29 03:52: 24 Yes Carol Lew-Samma n Unknown Memdenise Tierney Panacea 02-26 00:00: 00 Yes Carol Lew-Samma n 1 tablet as needed Nicole Tierney Lasix 02-25 00:00: 00 Yes Nedal Edgar 1 tablet Memor [place] Tierney Metformin HCl 02-25 00:00: 00 Yes Nedal Edgar 1 tablet with meals Nicole Tierney Azithromyci n 2015-02 00:00: 00 Yes Carol Lew-Samma n 2 tablets on the first day, then 1 tablet daily for 4 days Nicole Tierney Cheratussin AC 2015-02 00:00: 00 Yes Carol Lew-Samma n 5 ml Nicole Tierney Tizanidine HCl 2015-02 00:00: 00 Yes Carol Lew-Samma n 1 tablet as needed Nicole Tierney Amoxicillin 11-21 00:00: 00 Yes Carol Lew-Samma n 1 capsule Nicole Tierney Alendronate Sodium 11-17 00:00: 00 Yes Carol Lew-Samma n 1 tablet Memdenise Tierney Amoxicillin 07-02 00:00: 00 Yes Carol Lew-Samma n 1 tablet Nicole Tierney Nitroglycer in 06-04 00:00: 00 Yes Nedal Edgar as directed Memdenise Tierney Zyrtec Allergy 03-30 04:33: 47 Yes Carol Lew-Samma n 1 capsule as needed Nicole Tierney Omeprazole 03-30 04:33: 47 Yes Carol Lew-Samma n 1 capsule Memdenise roshan Niall Amoxicillin 2014-02 00:00: 00 Yes Carol Lew-Samma n 1 capsule Memdenise Dominguezann NovoLog Flexpen 2014-02 03:55: 44 No Jimmy Kerns 15 units Nicole roshan Cameron Levemir Flexpen 2014-02 03:55: 44 No Jimmy Kerns INJECT 36 UNITS DAILY AT BEDTIME Nicole Tierney Novolin 70/30 2014-02 00:00: 00 Yes Carol Lew-Samma n 50 units breakfast and 30 units with dinner Jodydenise roshan Tierney Melatonin 2014-02 00:00: 00 Yes Nedal Edgar 1 tablet at bedtime as needed with food Nicole Tierney Amoxicillin 2014-02 00:00: 00 Yes Carol Lew-Samma n 1 tablet Memdenise roshan Tierney ProAir HFA 108 (90 Base) MCG/ACT ProAir HFA 108 (90 Base) MCG/ACT 2014-02 0 00:00: 00 No 2{puffs _as_nee ded} 6xD ProAir HFA 108 (90 Base) MCG/ACT ProAir HFA 2014-02 0 00:00: 00 Yes Nedal Edgar 2 puffs as needed Nicole Tierney Flonase 50 MCG/ACT Flonase 50 MCG/ACT 2014-02 0 00:00: 00 No 1{spray _in_eac h_nostr il} QD Flonase 50 MCG/ACT Flonase 2014-02 008 00:00: 00 Yes Nedal Edgar 1 spray in each nostril Nicole Tierney Omeprazole 11-02 02:48: 10 Yes Carol Lew-Samma n 1 capsule Memdenise roshan Tierney Lisinopril 10-11 00:00: 00 Yes Carol Lew-Samma n 1 tablet Memdenise roshan Tierney Levemir Flexpen 09-18 00:00: 00 Yes Carol Lew-Samma n INJECT 36 UNITS DAILY AT BEDTIME Memoria roshan Cameron Actonel 09-12 00:00: 00 Yes Carol Lew-Samma n 1 tablet Memoria roshan Niall Back Support-Bra ce 07-10 00:00: 00 Yes Nedal Edgar as directed Memoria roshan Cameron Back Support-Bra ce 07-10 00:00: 00 Yes Carol Lew-Samma n as directed Memoria roshan Tierney Farxiga 07-05 00:00: 00 Yes Carol Lew-Samma n 1 tablet Memoria roshan Tierney Valium 10 MG Valium 10 MG 06-12 00:00: 00 No 1{table t_as_ne eded} Valium 10 MG Valium 06-12 00:00: 00 Yes Nedal Edgar 1 tablet as needed Memdenise Tierney Levemir Flexpen 04-05 03:51: 03 Yes Carol Lew-Samma n INJECT 30 UNITS DAILY AT BEDTIME Memoria roshan Tierney Zocor 04-05 03:51: 03 Yes Carol Lew-Samma n 1 tablet in the evening Memoria roshan Tierney Persantine 04-05 03:51: 03 Yes Carol Lew-Samma n as directed Memdenise Tierney Lotrel 04-05 03:51: 03 Yes Carol Lew-Samma n 1 capsule Memdenise Tierney Tradjenta 04-02 00:00: 00 Yes Carol Lew-Samma n 1 tablet Memoria roshan Tierney Lansoprazol e 04-02 00:00: 00 No Carol Lew-Samma n 1 tablet on the tongue and allow to dissolve before a meal Nicole Tierney MetFORMIN HCl ER 04-02 00:00: 00 No Carol Lew-Samma n 2 tablets with evening meal Memdenise Tierney Omeprazole 04-02 00:00: 00 Yes Carol Lew-Samma n 1 capsule Memdenise Tierney Lisinopril 04-02 00:00: 00 No Carol Lew-Samma n 1 tablet Memoria roshan Tierney Hydrochloro thiazide 04-02 00:00: 00 Yes Carol Ignacioma n 1 tablet Nicole Tierney Hydrocodone -Acetaminop hen 2013-02 00:00: 00 Yes Carol Lew-Lonma n 1 tablet as needed Nicole Tierney Invokana 2013-02 00:00: 00 Yes Carol Lew-Lonma n 1 tablet Nicole Tierney Flonase 2013-02 00:00: 00 Yes Carol Lwe-Lonma n 1 spray in each nostril Nicole Tierney Vitamin D3 09-06 00:00: 00 Yes Carol Lew-Lonma n as directed Nicole Tierney Albuterol Sulfate HFA 07-28 00:00: 00 Yes Carol Lew-Lonma n 2 puffs as needed Nicole Tierney Vitamin C 1000 MG Vitamin C 1000 MG No 1{table t} QD Vitamin C 1000 MG Metoprolol Succinate ER 25 MG Metoprolol Succinate ER 25 MG No 1{table t} QD Metoprolol Succinate ER 25 MG Docusate Sodium 100 MG Docusate Sodium 100 MG No Docusate Sodium 100 MG Prevacid 30mg Prevacid 30mg No 1{capsu le_befo re_a_al al} QD Prevacid 30mg Aspirin 81 MG Aspirin 81 MG No 1{table t} QD Aspirin 81 MG Lisinopril 20 MG Lisinopril 20 MG No 1{table t} QD Lisinopril 20 MG Simvastatin 40 MG Simvastatin 40 MG No 1{table t_in_th e_eveni ng} QD Simvastati n 40 MG Accu-Chek Vivi Plus - Accu-Chek Vivi Plus - No Accu-Chek Vivi Plus - Omeprazole 40 MG Omeprazole 40 MG No QD Omeprazole 40 MG Plavix 75 mg Plavix 75 mg No 1{table t} QD Plavix 75 mg Cetirizine HCl 10 MG Cetirizine HCl 10 MG No Cetirizine HCl 10 MG Allopurinol 300 MG Allopurinol 300 MG No Allopurino l 300 MG NovoLIN 70/30 (70-30) 100 UNIT/ML NovoLIN 70/30 (70-30) 100 UNIT/ML No BID NovoLIN 70/30 (70-30) 100 UNIT/ML omeprazole 40 mg capsule,del ayed release TAKE 1 CAPSULE BY ORAL ROUTE 2 TIMES EVERY DAY BEFORE MORNING MEAL AND AT BEDTIME FOR 90 DAYS omeprazole 40 mg capsule,del ayed release TAKE 1 CAPSULE BY ORAL ROUTE 2 TIMES EVERY DAY BEFORE MORNING MEAL AND AT BEDTIME FOR 90 DAYS No omeprazole 40 mg capsule,de layed release TAKE 1 CAPSULE BY ORAL ROUTE 2 TIMES EVERY DAY BEFORE MORNING MEAL AND AT BEDTIME FOR 90 DAYS [facility] simvastatin 40 mg tablet TAKE 1 TABLET BY MOUTH EVERY DAY IN THE EVENING simvastatin 40 mg tablet TAKE 1 TABLET BY MOUTH EVERY DAY IN THE EVENING No simvastati n 40 mg tablet TAKE 1 TABLET BY MOUTH EVERY DAY IN THE EVENING [facility] allopurinol 300 mg tablet allopurinol 300 mg tablet No allopurino l 300 mg tablet [facility] amlodipine 5 mg tablet TAKE 1 TABLET BY MOUTH EVERY DAY FOR 30 DAYS amlodipine 5 mg tablet TAKE 1 TABLET BY MOUTH EVERY DAY FOR 30 DAYS No amlodipine 5 mg tablet TAKE 1 TABLET BY MOUTH EVERY DAY FOR 30 DAYS [facility] clopidogrel 75 mg tablet TAKE 1 TABLET BY MOUTH EVERY DAY clopidogrel 75 mg tablet TAKE 1 TABLET BY MOUTH EVERY DAY No clopidogre l 75 mg tablet TAKE 1 TABLET BY MOUTH EVERY DAY [facility] hydrocodone 7.5 mg-acetamin ophen 325 mg tablet TAKE 1 TABLET BY MOUTH EVERY 6 HOURS NEEDED FOR 3 DAYS hydrocodone 7.5 mg-acetamin ophen 325 mg tablet TAKE 1 TABLET BY MOUTH EVERY 6 HOURS NEEDED FOR 3 DAYS No hydrocodon e 7.5 mg-acetami nophen 325 mg tablet TAKE 1 TABLET BY MOUTH EVERY 6 HOURS NEEDED FOR 3 DAYS [facility] lisinopril 40 mg tablet TAKE 1 TABLET BY MOUTH EVERY DAY FOR 30 DAYS lisinopril 40 mg tablet TAKE 1 TABLET BY MOUTH EVERY DAY FOR 30 DAYS No lisinopril 40 mg tablet TAKE 1 TABLET BY MOUTH EVERY DAY FOR 30 DAYS [facility] methocarbam ol 750 mg tablet TAKE 1 TABLET BY MOUTH EVERY 8 HOURS NEEDED FOR MUSCLE SPASMS methocarbam ol 750 mg tablet TAKE 1 TABLET BY MOUTH EVERY 8 HOURS NEEDED FOR MUSCLE SPASMS No methocarba mol 750 mg tablet TAKE 1 TABLET BY MOUTH EVERY 8 HOURS NEEDED FOR MUSCLE SPASMS [facility] metoprolol succinate ER 25 mg tablet,exte nded release 24 hr TAKE 1 TABLET BY MOUTH EVERY DAY metoprolol succinate ER 25 mg tablet,exte nded release 24 hr TAKE 1 TABLET BY MOUTH EVERY DAY No metoprolol succinate ER 25 mg tablet,ext ended release 24 hr TAKE 1 TABLET BY MOUTH EVERY DAY [facility] simvastatin 40 mg tablet TAKE 1 TABLET BY MOUTH EVERY DAY IN THE EVENING simvastatin 40 mg tablet TAKE 1 TABLET BY MOUTH EVERY DAY IN THE EVENING No simvastati n 40 mg tablet TAKE 1 TABLET BY MOUTH EVERY DAY IN THE EVENING [facility] allopurinol 300 mg tablet TAKE 1 TABLET BY MOUTH EVERY DAY allopurinol 300 mg tablet TAKE 1 TABLET BY MOUTH EVERY DAY No allopurino l 300 mg tablet TAKE 1 TABLET BY MOUTH EVERY DAY [facility] amlodipine 5 mg tablet TAKE 1 TABLET BY MOUTH EVERY DAY FOR 30 DAYS amlodipine 5 mg tablet TAKE 1 TABLET BY MOUTH EVERY DAY FOR 30 DAYS No amlodipine 5 mg tablet TAKE 1 TABLET BY MOUTH EVERY DAY FOR 30 DAYS [facility] clopidogrel 75 mg tablet TAKE 1 TABLET BY MOUTH EVERY DAY FOR 90 DAYS clopidogrel 75 mg tablet TAKE 1 TABLET BY MOUTH EVERY DAY FOR 90 DAYS No clopidogre l 75 mg tablet TAKE 1 TABLET BY MOUTH EVERY DAY FOR 90 DAYS [facility] hydrocodone 7.5 mg-acetamin ophen 325 mg tablet TAKE 1 TABLET BY MOUTH EVERY 6 HOURS NEEDED FOR 3 DAYS hydrocodone 7.5 mg-acetamin ophen 325 mg tablet TAKE 1 TABLET BY MOUTH EVERY 6 HOURS NEEDED FOR 3 DAYS No hydrocodon e 7.5 mg-acetami nophen 325 mg tablet TAKE 1 TABLET BY MOUTH EVERY 6 HOURS NEEDED FOR 3 DAYS [facility] lansoprazol e 30 mg capsule,del ayed release TAKE 1 CAPSULE BY MOUTH EVERY DAY BEFORE A MEAL lansoprazol e 30 mg capsule,del ayed release TAKE 1 CAPSULE BY MOUTH EVERY DAY BEFORE A MEAL No lansoprazo le 30 mg capsule,de layed release TAKE 1 CAPSULE BY MOUTH EVERY DAY BEFORE A MEAL [facility] latanoprost 0.005 % eye drops LOCATION: BOTH EYES. APPLY ONE DROP TO BOTH EYES ONCE A DAY. latanoprost 0.005 % eye drops LOCATION: BOTH EYES. APPLY ONE DROP TO BOTH EYES ONCE A DAY. No latanopros t 0.005 % eye drops LOCATION: BOTH EYES. APPLY ONE DROP TO BOTH EYES ONCE A DAY. [facility] lisinopril 40 mg tablet TAKE 1 TABLET BY MOUTH EVERY DAY FOR 90 DAYS lisinopril 40 mg tablet TAKE 1 TABLET BY MOUTH EVERY DAY FOR 90 DAYS No lisinopril 40 mg tablet TAKE 1 TABLET BY MOUTH EVERY DAY FOR [address] [facility] metoprolol succinate ER 25 mg tablet,exte nded release 24 hr TAKE 1 TABLET BY MOUTH EVERY DAY FOR 90 DAYS metoprolol succinate ER 25 mg tablet,exte nded release 24 hr TAKE 1 TABLET BY MOUTH EVERY DAY FOR 90 DAYS No metoprolol succinate ER 25 mg tablet,ext ended release 24 hr TAKE 1 TABLET BY MOUTH EVERY DAY FOR 90 DAYS [facility] omeprazole 40 mg capsule,del ayed release TAKE 1 CAPSULE BY ORAL ROUTE 2 TIMES EVERY DAY BEFORE MORNING MEAL AND AT BEDTIME FOR 90 DAYS omeprazole 40 mg capsule,del ayed release TAKE 1 CAPSULE BY ORAL ROUTE 2 TIMES EVERY DAY BEFORE MORNING MEAL AND AT BEDTIME FOR 90 DAYS No omeprazole 40 mg capsule,de layed release TAKE 1 CAPSULE BY ORAL ROUTE 2 TIMES EVERY DAY BEFORE MORNING MEAL AND AT BEDTIME FOR [address] [facility] simvastatin 40 mg tablet TAKE 1 TABLET BY MOUTH EVERY DAY IN THE EVENING simvastatin 40 mg tablet TAKE 1 TABLET BY MOUTH EVERY DAY IN THE EVENING No simvastati n 40 mg tablet TAKE 1 TABLET BY MOUTH EVERY DAY IN THE EVENING [facility] allopurinol 300 mg tablet TAKE 1 TABLET BY MOUTH EVERY DAY allopurinol 300 mg tablet TAKE 1 TABLET BY MOUTH EVERY DAY No allopurino l 300 mg tablet TAKE 1 TABLET BY MOUTH EVERY DAY [facility] amlodipine 5 mg tablet TAKE 1 TABLET BY MOUTH EVERY DAY FOR 30 DAYS amlodipine 5 mg tablet TAKE 1 TABLET BY MOUTH EVERY DAY FOR 30 DAYS No amlodipine 5 mg tablet TAKE 1 TABLET BY MOUTH EVERY DAY FOR 30 DAYS [facility] clopidogrel 75 mg tablet TAKE 1 TABLET BY MOUTH EVERY DAY FOR 90 DAYS clopidogrel 75 mg tablet TAKE 1 TABLET BY MOUTH EVERY DAY FOR 90 DAYS No clopidogre l 75 mg tablet TAKE 1 TABLET BY MOUTH EVERY DAY FOR 90 DAYS [facility] hydrocodone 7.5 mg-acetamin ophen 325 mg tablet TAKE 1 TABLET BY MOUTH EVERY 6 HOURS NEEDED FOR 3 DAYS hydrocodone 7.5 mg-acetamin ophen 325 mg tablet TAKE 1 TABLET BY MOUTH EVERY 6 HOURS NEEDED FOR 3 DAYS No hydrocodon e 7.5 mg-acetami nophen 325 mg tablet TAKE 1 TABLET BY MOUTH EVERY 6 HOURS NEEDED FOR 3 DAYS [facility] lansoprazol e 30 mg capsule,del ayed release TAKE 1 CAPSULE BY MOUTH EVERY DAY BEFORE A MEAL lansoprazol e 30 mg capsule,del ayed release TAKE 1 CAPSULE BY MOUTH EVERY DAY BEFORE A MEAL No lansoprazo le 30 mg capsule,de layed release TAKE 1 CAPSULE BY MOUTH EVERY DAY BEFORE A MEAL [facility] latanoprost 0.005 % eye drops LOCATION: BOTH EYES. APPLY ONE DROP TO BOTH EYES ONCE A DAY. latanoprost 0.005 % eye drops LOCATION: BOTH EYES. APPLY ONE DROP TO BOTH EYES ONCE A DAY. No latanopros t 0.005 % eye drops LOCATION: BOTH EYES. APPLY ONE DROP TO BOTH EYES ONCE A DAY. [facility] lisinopril 40 mg tablet TAKE 1 TABLET BY MOUTH EVERY DAY FOR 90 DAYS lisinopril 40 mg tablet TAKE 1 TABLET BY MOUTH EVERY DAY FOR 90 DAYS No lisinopril 40 mg tablet TAKE 1 TABLET BY MOUTH EVERY DAY FOR 90 DAYS [facility] metoprolol succinate ER 25 mg tablet,exte nded release 24 hr TAKE 1 TABLET BY MOUTH EVERY DAY FOR 90 DAYS metoprolol succinate ER 25 mg tablet,exte nded release 24 hr TAKE 1 TABLET BY MOUTH EVERY DAY FOR 90 DAYS No metoprolol succinate ER 25 mg tablet,ext ended release 24 hr TAKE 1 TABLET BY MOUTH EVERY DAY FOR 90 DAYS [facility] Immunizations Ordered Immunization Name Filled Immunization Name Date Status Comments Source Moderna COVID-19 Vaccine Moderna COVID-19 Vaccine 2021-09-02 00:00:00 Completed Pfizer COVID-19 Vaccine Pfizer COVID-19 Vaccine 2020-04-20 00:00:00 Completed Pfizer COVID-19 Vaccine Pfizer COVID-19 Vaccine 2020-03-23 00:00:00 Completed Fluad - 0.5 ML (Age 65 and up) High Dose Fluad - 0.5 ML (Age 65 and up) High Dose Unknown Completed [facility] zzzfluzone zzzfluzone Unknown Completed [facility] Vital Signs Vital Name Observation Time Observation Value Comments S ource height 2023-12-14 09:15:00 61 [in_i] [facility] weight-kg 2023-12-14 09:15:00 92.08 kg [facility] bmi 2023-12-14 09:15:00 38.35 kg/m2 [facility] temperature 2023-12-14 09:15:00 97.8 [degF] [facility] respiratory rate 2023-12-14 09:15:00 16 /min [facility] heart rate 2023-12-14 09:15:00 68 /min [facility] blood pressure systolic 2023-12-14 09:15:00 140 mm[Hg] [facility] blood pressure diastolic 2023-12-14 09:15:00 72 mm[Hg] [facility] height 2023-09-14 13:00:00 61 [in_i] [facility] weight-kg 2023-09-14 13:00:00 95.25 kg [facility] bmi 2023-09-14 13:00:00 39.67 kg/m2 [facility] temperature 2023-09-14 13:00:00 97.6 [degF] Luca [facility] respiratory rate 2023-09-14 13:00:00 16 /min [facility] heart rate 2023-09-14 13:00:00 78 /min [facility] blood pressure systolic 2023-09-14 13:00:00 136 mm[Hg] [facility] blood pressure diastolic 2023-09-14 13:00:00 78 mm[Hg] [facility] Height 2022-05-06 00:00:00 61 [in_i] [facility] BMI (Body Mass Index) 2022-05-06 00:00:00 40.4 kg/m2 [facility] Body Weight 2022-05-06 00:00:00 214 [lb_av] [facility] Height 2021-10-23 00:00:00 61 [in_i] [facility] Body Weight 2021-10-23 00:00:00 214 [lb_av] [facility] Weight 2018-02-09 14:45:00 [facility] Height 2018-02-09 14:45:00 [facility] Respitory Rate 2018-02-09 14:45:00 [facility] Diastolic (mm Hg) 2018-02-09 14:45:00 [facility] Systolic (mm Hg) 2018-02-09 14:45:00 [facility] Temperature Oral (F) 2018-02-09 14:45:00 97.6 F [facility] Heart Rate 2018-02-09 14:45:00 [facility] Weight 2018-01-25 15:00:00 [facility] Height 2018-01-25 15:00:00 [facility] Respitory Rate 2018-01-25 15:00:00 [facility] Diastolic (mm Hg) 2018-01-25 15:00:00 [facility] Systolic (mm Hg) 2018-01-25 15:00:00 [facility] Temperature Oral (F) 2018-01-25 15:00:00 97.8 F [facility] Heart Rate 2018-01-25 15:00:00 [facility] Weight 2017-11-09 19:00:00 [facility] Height 2017-11-09 19:00:00 [facility] Respitory Rate 2017-11-09 19:00:00 [facility] Diastolic (mm Hg) 2017-11-09 19:00:00 [facility] Systolic (mm Hg) 2017-11-09 19:00:00 [facility] Temperature Oral (F) 2017-11-09 19:00:00 97.3 F [facility] Heart Rate 2017-11-09 19:00:00 [facility] Weight 2017-10-26 21:00:00 [facility] Height 2017-10-26 21:00:00 [facility] Respitory Rate 2017-10-26 21:00:00 [facility] Diastolic (mm Hg) 2017-10-26 21:00:00 [facility] Systolic (mm Hg) 2017-10-26 21:00:00 [facility] Temperature Oral (F) 2017-10-26 21:00:00 98.0 F [facility] Heart Rate 2017-10-26 21:00:00 [facility] Weight 2017-05-12 14:30:00 [facility] Systolic (mm Hg) 2017-05-12 14:30:00 [facility] Respitory Rate 2017-05-12 14:30:00 [facility] Heart Rate 2017-05-12 14:30:00 [facility] Temperature Oral (F) 2017-05-12 14:30:00 97.5 F [facility] Diastolic (mm Hg) 2017-05-12 14:30:00 [facility] Weight 2017-04-06 21:45:00 [facility] Systolic (mm Hg) 2017-04-06 21:45:00 [facility] Respitory Rate 2017-04-06 21:45:00 [facility] Heart Rate 2017-04-06 21:45:00 [facility] Temperature Oral (F) 2017-04-06 21:45:00 97.6 F [facility] Diastolic (mm Hg) 2017-04-06 21:45:00 [facility] Weight 2017-03-04 18:00:00 [facility] Systolic (mm Hg) 2017-03-04 18:00:00 [facility] Respitory Rate 2017-03-04 18:00:00 [facility] Heart Rate 2017-03-04 18:00:00 [facility] Temperature Oral (F) 2017-03-04 18:00:00 97.8 F [facility] Diastolic (mm Hg) 2017-03-04 18:00:00 [facility] Weight 2017-02-23 19:00:00 [facility] Systolic (mm Hg) 2017-02-23 19:00:00 [facility] Respitory Rate 2017-02-23 19:00:00 [facility] Heart Rate 2017-02-23 19:00:00 [facility] Temperature Oral (F) 2017-02-23 19:00:00 97.5 F [facility] Diastolic (mm Hg) 2017-02-23 19:00:00 [facility] Weight 2017-02-17 15:30:00 [facility] Systolic (mm Hg) 2017-02-17 15:30:00 [facility] Respitory Rate 2017-02-17 15:30:00 [facility] Heart Rate 2017-02-17 15:30:00 [facility] Temperature Oral (F) 2017-02-17 15:30:00 97.9 F [facility] Diastolic (mm Hg) 2017-02-17 15:30:00 [facility] Weight 2017-02-09 18:30:00 [facility] Systolic (mm Hg) 2017-02-09 18:30:00 [facility] Respitory Rate 2017-02-09 18:30:00 [facility] Heart Rate 2017-02-09 18:30:00 [facility] Temperature Oral (F) 2017-02-09 18:30:00 97.9 F [facility] Diastolic (mm Hg) 2017-02-09 18:30:00 [facility] Weight 2017-01-28 15:00:00 [facility] Systolic (mm Hg) 2017-01-28 15:00:00 [facility] Respitory Rate 2017-01-28 15:00:00 [facility] Heart Rate 2017-01-28 15:00:00 [facility] Temperature Oral (F) 2017-01-28 15:00:00 97.6 F [facility] Diastolic (mm Hg) 2017-01-28 15:00:00 [facility] Weight 2016-09-02 20:45:00 [facility] Systolic (mm Hg) 2016-09-02 20:45:00 [facility] Respitory Rate 2016-09-02 20:45:00 [facility] Heart Rate 2016-09-02 20:45:00 [facility] Temperature Oral (F) 2016-09-02 20:45:00 97.7 F [facility] Diastolic (mm Hg) 2016-09-02 20:45:00 [facility] Weight 2016-03-04 19:00:00 [facility] Systolic (mm Hg) 2016-03-04 19:00:00 [facility] Respitory Rate 2016-03-04 19:00:00 [facility] Heart Rate 2016-03-04 19:00:00 [facility] Temperature Oral (F) 2016-03-04 19:00:00 96.0 F [facility] Diastolic (mm Hg) 2016-03-04 19:00:00 [facility] Weight 2016-02-26 19:00:00 [facility] Systolic (mm Hg) 2016-02-26 19:00:00 [facility] Respitory Rate 2016-02-26 19:00:00 [facility] Heart Rate 2016-02-26 19:00:00 [facility] Temperature Oral (F) 2016-02-26 19:00:00 96.5 F [facility] Diastolic (mm Hg) 2016-02-26 19:00:00 [facility] Weight 2016-02-21 14:30:00 [facility] Systolic (mm Hg) 2016-02-21 14:30:00 [facility] Respitory Rate 2016-02-21 14:30:00 [facility] Heart Rate 2016-02-21 14:30:00 [facility] Temperature Oral (F) 2016-02-21 14:30:00 96.2 F [facility] Diastolic (mm Hg) 2016-02-21 14:30:00 [facility] Weight 2015-12-23 15:30:00 [facility] Systolic (mm Hg) 2015-12-23 15:30:00 [facility] Respitory Rate 2015-12-23 15:30:00 [facility] Heart Rate 2015-12-23 15:30:00 [facility] Temperature Oral (F) 2015-12-23 15:30:00 98.6 F [facility] Diastolic (mm Hg) 2015-12-23 15:30:00 [facility] Weight 2015-12-09 16:00:00 [facility] Systolic (mm Hg) 2015-12-09 16:00:00 [facility] Respitory Rate 2015-12-09 16:00:00 [facility] Heart Rate 2015-12-09 16:00:00 [facility] Temperature Oral (F) 2015-12-09 16:00:00 98.6 F [facility] Diastolic (mm Hg) 2015-12-09 16:00:00 [facility] Weight 2015-11-18 13:30:00 [facility] Systolic (mm Hg) 2015-11-18 13:30:00 [facility] Respitory Rate 2015-11-18 13:30:00 [facility] Heart Rate 2015-11-18 13:30:00 [facility] Temperature Oral (F) 2015-11-18 13:30:00 95.8 F [facility] Diastolic (mm Hg) 2015-11-18 13:30:00 [facility] Weight 2015-10-14 13:30:00 [facility] Systolic (mm Hg) 2015-10-14 13:30:00 [facility] Respitory Rate 2015-10-14 13:30:00 [facility] Heart Rate 2015-10-14 13:30:00 [facility] Temperature Oral (F) 2015-10-14 13:30:00 98.6 F [facility] Diastolic (mm Hg) 2015-10-14 13:30:00 [facility] Weight 2015-09-10 15:30:00 [facility] Systolic (mm Hg) 2015-09-10 15:30:00 [facility] Respitory Rate 2015-09-10 15:30:00 [facility] Heart Rate 2015-09-10 15:30:00 [facility] Temperature Oral (F) 2015-09-10 15:30:00 96.0 F [facility] Diastolic (mm Hg) 2015-09-10 15:30:00 [facility] Weight 2015-08-01 15:45:00 [facility] Systolic (mm Hg) 2015-08-01 15:45:00 [facility] Respitory Rate 2015-08-01 15:45:00 [facility] Heart Rate 2015-08-01 15:45:00 [facility] Temperature Oral (F) 2015-08-01 15:45:00 96.5 F [facility] Diastolic (mm Hg) 2015-08-01 15:45:00 [facility] Weight 2015-06-05 19:45:00 [facility] Systolic (mm Hg) 2015-06-05 19:45:00 [facility] Respitory Rate 2015-06-05 19:45:00 [facility] Heart Rate 2015-06-05 19:45:00 [facility] Temperature Oral (F) 2015-06-05 19:45:00 97.9 F [facility] Diastolic (mm Hg) 2015-06-05 19:45:00 [facility] Weight 2015-05-29 18:15:00 [facility] Respitory Rate 2015-05-29 18:15:00 [facility] Heart Rate 2015-05-29 18:15:00 [facility] Temperature Oral (F) 2015-05-29 18:15:00 97.9 F [facility] Weight 2015 19:45:00 [facility] Systolic (mm Hg) 2015 19:45:00 [facility] Respitory Rate 2015 19:45:00 [facility] Heart Rate 2015 19:45:00 [facility] Temperature Oral (F) 2015 19:45:00 97.2 F [facility] Diastolic (mm Hg) 2015 19:45:00 [facility] Weight 2014-12-27 20:30:00 [facility] Systolic (mm Hg) 2014-12-27 20:30:00 [facility] Respitory Rate 2014-12-27 20:30:00 [facility] Heart Rate 2014-12-27 20:30:00 [facility] Temperature Oral (F) 2014-12-27 20:30:00 97.7 F [facility] Diastolic (mm Hg) 2014-12-27 20:30:00 [facility] Weight 2014-10-30 18:45:00 [facility] Systolic (mm Hg) 2014-10-30 18:45:00 [facility] Respitory Rate 2014-10-30 18:45:00 [facility] Heart Rate 2014-10-30 18:45:00 [facility] Temperature Oral (F) 2014-10-30 18:45:00 97.2 F [facility] Diastolic (mm Hg) 2014-10-30 18:45:00 [facility] Height 2014-08-21 13:40:00 152.4 cm [facility] Weight 2014-08-21 13:40:00 [facility] BMI Calculated 2014-08-21 13:40:00 [facility] Weight 2014-04-02 14:30:00 [facility] Systolic (mm Hg) 2014-04-02 14:30:00 [facility] Respitory Rate 2014-04-02 14:30:00 [facility] Heart Rate 2014-04-02 14:30:00 [facility] Temperature Oral (F) 2014-04-02 14:30:00 97.3 F [facility] Diastolic (mm Hg) 2014-04-02 14:30:00 [facility] Procedures Procedure Date / Time Performed Performing Clinician Source MRI, lumbar spine, w/o contrast 2022-04-07 00:00:00 [facility] MRI CERVICAL SPINE W/O CONTRAST 2022-03-17 00:00:00 [facility] XR, shoulder, 1 view 2021-10-23 00:00:00 [facility] RADEX SPI 1 VIEW SPEC LVL 2021-10-23 00:00:00 [facility] MRI CERVICAL SPINE W/O CONTRAST 2021-10-23 00:00:00 [facility] Heart Stent [facility] Procedure on Kidney [facility] Hysterectomy [facility] Tonsillectomy [facility] Knee Surgery [facility] Encounters Start Date/Time End Date/Time Encounter Type Admission Type Attending Clinicians Care Facility Care Department Encounter ID Source 2024-04-28 15:33:00 Outpatient PecCarol Murguia [facility] [id number] [place] [facility] 2023-09-20 16:15:00 Outpatient PeckSCarol vivar [facility] [id number] [place] [facility] 2023-09-14 13:01:01 Outpatient PeckSCarol vivar [facility] [id number] [place] [facility] 2023-12-28 00:00:00 2023-12-28 00:00:00 (TEL) CLS CLS [id number] [place] [facility] 2023-12-21 10:15:00 2023-12-21 10:15:00 Outpatient PADDY MORSE [facility] [id number] [facility] 2023-12-21 08:50:00 2023-12-21 08:50:00 Outpatient [facility] [id number] [facility] 2023-12-21 08:45:00 2023-12-21 08:45:00 Outpatient [facility] [id number] [facility] 2023-12-14 00:00:00 2023-12-14 00:00:00 Preventive Care Est Pt. Age 65 and over CLS CLS [id number] Sushil thompson 2023-10-26 08:45:00 2023-10-26 09:21:36 Office Visit Paddy Morse [facility] [id number] [id number] [facility] 2023-10-26 08:45:00 2023-10-26 09:21:36 Outpatient [facility] [id number] [facility] 2023-10-20 00:00:00 2023-10-20 00:00:00 (TEL) CLS CLS [id number] [facility] 2023-09-21 00:00:00 2023-09-21 00:00:00 (TEL) CLS CLS [id number] [place] [facility] 2023-09-17 00:00:00 2023-09-17 00:00:00 (TEL) CLS CLS [id number] [place] [facility] 2023-09-14 08:45:00 2023-09-14 09:26:04 Office Visit Paddy Morse [facility] [id number] [facility] [id number] [facility] 2023-09-14 08:45:00 2023-09-14 09:26:04 Outpatient [facility] [id number] [facility] 2023-09-14 00:00:00 2023-09-14 00:00:00 Office Visit- Est Pt.- Level [address] [facility] [id number] [facility] 2023-08-24 12:00:00 2023-08-24 12:00:00 Outpatient PADDY MORSE [facility] [id number] [facility] 2023-08-17 08:45:00 2023-08-17 09:20:34 Outpatient [facility] [id number] [facility] 2023-08-17 08:45:00 2023-08-17 09:20:34 Office Visit Paddy Morse [facility] [id number] [id number] [facility] 2023-08-04 06:39:00 2023-08-04 23:59:00 Outpatient PADDY MORSE [facility] [id number] [facility] 2023-08-04 14:00:00 2023-08-04 14:00:00 Outpatient PADDY MORSE [facility] [id number] [facility] 2023-07-27 10:15:00 2023-07-27 11:51:13 Office Visit Lala Bolaños [facility] [address] [id number] [facility] 2023-07-27 10:15:00 2023-07-27 11:51:12 Outpatient [facility] [id number] [facility] 2023-07-16 22:15:00 2023-07-21 12:10:00 Inpatient E JERAD WAYNE [facility] [id number] [facility] 2023-07-17 08:30:00 2023-07-17 08:30:00 Outpatient PADDY MORSE [facility] [id number] [facility] 2023-05-14 11:00:00 2023-05-14 11:00:00 Outpatient [facility] [id number] [facility] 2022-10-15 00:00:00 2022-10-15 00:00:00 Outpatient FOG_Burke_R obert_MD [facility] AOSM [id number] [facility] 2022-10-15 00:00:00 2022-10-15 00:00:00 Outpatient FOG_Trudy Rivera [facility] AOSM [id number] [facility] 2022-10-15 00:00:00 2022-10-15 00:00:00 Outpatient FOG_Trudy Rivera [facility] AOSM [id number] [facility] 2022-10-15 00:00:00 2022-10-15 00:00:00 Outpatient FOG_Trudy Rivera A[facility] AOSM [id number] [facility] 2022-07-22 05:21:00 2022-07-22 05:21:00 Outpatient Rafael Lopez [facility] ENDO [id number] 21 [facility] 2022-07-14 11:10:00 2022-07-14 11:10:00 Outpatient Leroy Saba [facility] CTSC [id number] 26 [facility] 2022-05-13 00:00:00 2022-05-13 00:00:00 Outpatient FOG_Trudy Rivera AOS[facility] AOSM [id number] [facility] 2022-05-13 00:00:00 2022-05-13 00:00:00 Outpatient FOG_Trudy Rivera A[facility] AOSM [id number] [facility] 2022-05-13 00:00:00 2022-05-13 00:00:00 Outpatient FOG_Trudy Rivera A[facility] AOSM [id number] [facility] 2022-05-13 00:00:00 2022-05-13 00:00:00 Outpatient FOGDannie Rivera AOSM AOSM [id number] [facility] 2022-05-06 00:00:00 2022-05-06 00:00:00 Outpatient FOG_Burkerika_Wil Rivera AOS[facility] AOSM [id number] [facility] 2022-05-06 00:00:00 2022-05-06 00:00:00 Jody Olmedo MD: [id number] [id number] , Ph. [phone] [facility] [place] [facility] [place] [id number] [facility] 2022-04-07 00:00:00 2022-04-07 00:00:00 RICARDO Moncada: [address] [place] [address] , Ph. [phone] [facility] [place] [facility] [place] [id number] [facility] 2022-03-23 11:00:00 2022-03-23 11:00:00 Outpatient [facility] [id number] [facility] 2022-03-04 15:43:00 2022-03-04 23:59:00 Outpatient TERESITA QUINTEROS [facility] [id number] 2021-11-11 00:00:00 2021-11-11 00:00:00 Outpatient FOG_Burke_Wil Rivera AOS[facility] AOSM [id number] [facility] 2021-11-11 00:00:00 2021-11-11 00:00:00 Outpatient FOG_Burke_R Nicole AOSM AOSM [id number] [facility] 2021-11-11 00:00:00 2021-11-11 00:00:00 Outpatient FOG_Burke_R Nicole AOSM AOSM [id number] [facility] 2021-11-11 00:00:00 2021-11-11 00:00:00 Outpatient FOG_Burke_R obert_MD AOSM AOSM [id number] [facility] 2021-11-11 00:00:00 2021-11-11 00:00:00 Outpatient CHIP_Trudy Rivera [facility] AOSM [id number] [facility] 2021-10-23 00:00:00 2021-10-23 00:00:00 Outpatient CHIP_Trudy Rivera A[facility] AOSM [id number] [facility] 2021-10-23 00:00:00 2021-10-23 00:00:00 Piotr Hartley MD: [id number] [facility] [place] [address] , Ph. [phone] [facility] [place] [facility] [place] [id number] [facility] 2021-10-23 00:00:00 2021-10-23 00:00:00 Outpatient Piotr Hartley [facility] AOSM [id number] 2021-10-23 00:00:00 2021-10-23 00:00:00 Outpatient Piotr Hartley [facility] AOSM [id number] 2021-09-02 00:00:00 2021-09-02 00:00:00 Outpatient Ange Rivera AOS[facility] AOSM [id number] [facility] 2021-09-02 00:00:00 2021-09-02 00:00:00 Outpatient GCCOVIDV GCC[facility] [id number] [facility] 2020-08-29 13:24:00 2020-08-29 15:52:00 Inpatient EM Hermelindo Odom [facility].01 [id number] [facility] 2020-08-28 08:12:00 2020-08-29 13:24:00 Outpatient Hermelindo Trivedi [facility] ZZZB [id number] [facility] 2020-04-20 00:00:00 2020-04-20 00:00:00 Outpatient GCCOVIDV [facility] [id number] [facility] 2020-03-23 00:00:00 2020-03-23 00:00:00 Outpatient GCCOVIDV [facility]OVID[facility] [id number] [facility] 2015-09-17 11:50:00 2015-09-17 11:50:00 Outpatient [facility]IE MHIE [id number] Nicole islas Niall 2015-05-16 19:00:00 2015-05-16 19:00:00 Outpatient [facility]IE [facility] [id number] Nicole Tierney 2015-04-25 20:20:00 2015-04-25 20:20:00 Outpatient [facility] [id number] Nicole Dominguezann 2014-08-21 13:07:00 2014-08-22 04:59:00 [id number] Results Test Description Test Time Test Comments Results Result Co mments Source GLUCOSE [id number] 16:06:00* Test Item Value Reference Range Interpretation Comme nts GLUCOSE BEDSIDE (test code = GLUBED) 121 MG/DL 70-110 H Performed by cer tified distribution collection operator at [facility] GLUCOSE [id number] 11:42:00* Test Item Value Reference Range Interpretation Comme [facility] GLUCOSE BEDSIDE (test code = GLUBED) 107 MG/DL 70-110 N Performed by cer tified distribution collection operator at [facility] BASIC METABOLIC [id number] 13:54:00* Test Item Value Reference Range Interpretation Comme nts SODIUM (test code = NA) 142 mEq/L 134-147 N POTASSIUM (test code = K) 3.9 mEq/L 3.4-5.0 N CHLORIDE (test code = CL) 107 mEq/L 100-108 N CARBON DIOXIDE (test code = CO2) 23 mEq/l 21-33 N ANION GAP (test code = GAP) 16 0-20 N GLUCOSE (test code = GLU) 42 mg/dL 70-110 LL Critical result called to Nola CHATMAN [id number] at 1342 07/21/22Nurse read back resut and tech confirmed it's correct? YES BLOOD UREA NITROGEN (test code = BUN) 16 mg/dL 7-18 N GLOMERULAR FILTRATION RATE (test code = GFR) 56.6 70-80 L The Glomerular Filtration Rate is a calculated parameterbased on serum Creatinine, patient age and sex. GFR valuesless than 60 mL/min/1.73 square meters are indicative ofChronic Kidney Disease. Values less than 15 mL/min/1.73square meters indicate Kidney failure. The calculation forGFR is based on the CKD-EPI (2020) calculation. This formulais race indifferent and is the recommended formula for GFRby the National Kidney Foundation for Adults.The GFR will not calculate if the sex is unknown or if thepatient's age is <18 years. CREATININE (test code = CREAT) 1.0 mg/dL 0.6-1.3 N CALCIUM (test code = CA) 8.7 mg/dL 8.0-10.5 N CBC W/AUTO [id number] 13:30:00* Test Item Value Reference Range Interpretation Comme nts WHITE BLOOD CELL (test code = WBC) 13.0 x10 3/uL 4.5-11.0 H RED BLOOD CELL (test code = RBC) 4.18 x10 6/uL 3.54-5.02 N HEMOGLOBIN (test code = HGB) 12.6 g/dL 11.0-15.0 N HEMATOCRIT (test code = HCT) 37.9 % 33.0-45.0 N MEAN CELL VOLUME (test code = MCV) 90.7 fL 81.0-99.0 N MEAN CELL HGB (test code = MCH) 30.1 pg 27.0-33.0 N MEAN CELL HGB CONCETRATION (test code = MCHC) 33.2 g/dL 33.0-37.0 N RED CELL DISTRIBUTION WIDTH CV (test code = RDW) 15.9 % 11.5-14.5 H PLATELET COUNT (test code = PLT) 246 x10 3/uL 150-400 N NEUTROPHIL % (test code = NT%) 53.0 % 56.0-77.0 L LYMPHOCYTE % (test code = LY%) 37.5 % 14.0-32.0 H NEUTROPHIL # (test code = NT#) 6.86 x10 3/uL 2.0-7.6 N LYMPHOCYTE # (test code = LY#) 4.86 x10 3/uL 1.0-3.8 H MANUAL DIFF REQUIRED (test c ode = MDIFF) NO RED CELL DISTRIBUTION WIDTH SD (test code = RDW-SD) 52.7 fL 37.0-54.0 N MEAN PLATELET VOLUME (test c ode = MPV) 12.6 fL 7.0-9.0 H IMMATURE GRANULOCYTE % (test code = IG%) 0.4 % 0.0-2.0 N MONOCYTE % (test code = MO%) 8.0 % 4.8-9.0 N EOSINOPHIL % (test code = EO%) 0.4 % 0.3-3.7 N BASOPHIL % (test code = BA%) 0.7 % 0.0-2.0 N NUCLEATED RBC % (test code = NRBC%) 0.0 % 0-0 N IMMATURE GRANULOCYTE # (test code = IG#) 0.05 x10 3/uL 0.00-0.03 H MONOCYTE # (test code = MO#) 1.04 x10 3/uL 0.1-0.8 H EOSINOPHIL # (test code = EO#) 0.05 x10 3/uL 0.0-0.2 N BASOPHIL # (test code = BA#) 0.09 x10 3/uL 0.0-0.2 N NUCLEATED RBC # (test code = NRBC#) 0.00 x10 3/uL 0.0-0.1 N - XR CHEST 2 [id number] 00:00:00 [facility] : 1940 Sex: F FAX: Rafael Aceves MD [phone] [place]: St: PRE FAX: Carol Hamm [phone] FAX: Lashell Cueva Name: ESMER MARRERO [facility] : 1940 Age/S: 82/F [address] [place] [address] Unit #: [id number] Loc: [place] [address] Phys: Lashell Cueva 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 Views: 2 views. PA and Lateral COMPARISON: DX XR CHEST 1V 03/02/2017 4:04 PM FINDINGS: Lungs: There are normal lung volumes without consolidation or interstitial opacities. Pleural spaces: Unremarkable. No pleural effusion. No pneumothorax. Heart/Mediastinum: Cardiac silhouette is upper limits of normal in size. Bones/joints: No acute abnormality seen.IMPRESSION: No acute cardiopulmonary findings. at 9549 Reported and signed by: Russell Collazo M.D. CC: Rafael Martin MD;Carol Mota DO; Lashell Cueva NP Technologist: RT Rogelio(Wil) Trnornas Date/Time/By: 07/21/2022 (1138) : By: Martin.TDO Orig Print D/T: S: 07/21/2022 (8057) PAGE 1 Signed Report- CT ABD PELVIS W/O [id number] 13:57:00[facility] 1940 Sex: F Name: ESMER MARRERO [facility] : 1940 Age/S: 82 / F [address] [facility] [place] Unit #: [id number] Loc: [place] [address] Phys: Leroy Mckeon MD Acct: [id number] Dis Date: [facility] #: [phone] Exam Date: 07/14/20221201 FAX #: [phone] Reason: N20.0, CALCULUS OF KIDNEY. EXAMS: CPT CODE: [id number] CT ABD PELVIS W/O CONT 92174 EXAM: - CT ABD PELVIS W/O CONT HISTORY: 82 years -old Female with N20.0, CALCULUS OF KIDNEY. TECHNIQUE: Contrast - No IV contrast was given. No oral contrast was given Noncontrast phase - abdomen and pelvis including all ofkidneys Reconstructions - coronal and sagittal planes Automated exposure reduction (Auto mA/Smart mA) was utilized in compliance with ACR Image Wisely COMPARISON: None FINDINGS: Statements: Lack of intravenous contrast compromises evaluation of abdominopelvic organs and vasculature. Lack of oral contrast compromises evaluation of bowel. Thoracic: Included images of the lower chest demonstrate no abnormalities. Hepatobiliary: The liver is normal without focal lesion. The gallbladder is normal. No biliary dilation. Pancreas: Normal. Spleen: Normal. Adrenals: Normal. Genitourinary: The kidneys are normal. There is no evidence of hydronephrosis of either kidney. There is no evidence of renal calculus. Evaluation of the bladder is limited, but no obvious bladder abnormality is present. Gastrointestinal: No bowel obstruction or perienteric inflammation. The appendix is not visualized. Vascular: Aortic and iliac calcifications are present. Lymphatics: No enlarged lymph nodes by CT size criteria. Bones/Soft Tissues: No acute osseous findings. No ventral hernias. PAGE 1 Signed Report (CONTINUED) Name: ESMER MARRERO [facility] : 1940 Age/S: 82 / F [address] [facility] [place] Unit #: [id number] Loc: [place] [address] Phys: Leroy Mckeon MD Acct: [id number] Dis Date: Status: DEP CLI PHONE #: [phone] Exam Date: 07/14/2022 1202 FAX #: [phone] Reason: N20.0, CALCULUS OF KIDNEY. EXAMS: CPT CODE: [id number] CT ABD PELVIS W/O CONT 59950 (Continued) Peritoneum/Other: No extraluminal air. No extraluminal fluid. IMPRESSION: 1. No obstructing renal or ureteral calculi. 2. Vascular calcifications. No evidence of bowel obstruction. No other acute abnormality is demonstrated. at 1357 Reported and signed by: Piotr Shrestha M.D. CC: Leroy Mckeon MD; Carol Mota DO Technologist:Kevin Garcia Jr, RT(R)(CT) CTDI: DLP: Trnscb Date/Time: 07/15/2022 (5427) [email or web address] Orig Print D/T: S: 07/15/2022 (9987) PAGE 2 Signed ReportBREAST ULTRASOUND [id number] 14:00:52 Name: , Esmer Avila DOB: 1940 Sex: F - DIAG MAMM BILATERAL BARBARA CAD DIGITALBILATERAL DIGITAL DIAGNOSTIC MAMMOGRAM 3D/2D WITH CAD: 07/09/2021LINICAL: Left breast pain. Digital breast tomosynthesis was performed in addition to routine CC and MLO views. Current mammographic images were evaluated by [employer] CAD (computer-aided detection) software. Comparison is madeto exams dated 05/02/2020 mammogram, 01/27/2019 mammogram, and 12/12/2015 mammogram - [facility] There are scattered fibroglandular tissues in both breasts. Stable subcentimeter mass in the left upper outer quadrant and bilateral calcifications, benign. No suspicious mass, architectural distortion, malignant type calcification, or lymph node abnormality detected. INCOMPLETE: ADDITIONAL IMAGING EVALUATION NEEDEDThere is no mammographic evidence of malignancy. Bilateral survey ultra sound to follow.- BREAST ULTRASOUND BILATERALULTRASOUND OF BOTH BREASTS: 07/09/2021omparison is made to exams dated 05/02/2020 mammogram, 01/27/2019 mammogram, and 12/12/2015 mammogram - [facility]-. Color flow and real-time ultrasound of both breasts were performed. Koo scale images of the real-time examination were reviewed. The breast tissue has scattered fibroglandular background echotexture. Bilateral survey ultrasound demonstrates no suspicious sonographic abnormality. No axillary lymphadenopathy was seen.IMPRESSION: NEGATIVE There is no sonographic evidence of malignancy.Resume annual screening mammography in one year. Valente Santana M.D. ss/:07/09/2021 14:00:52 Entry: lamont - 07/09/2021 14:41:28Imaging Technologist: Carolina Serrato , [facility]-lettersent: BIRADS 1-2 Combo FU Letter Mammogram BI- RADS: 0 Incomplete: Additional Imaging Evaluation Needed Ultrasound BI-RADS: 1 NegativeDIAG MAMM BILATERAL BARBARA CAD [id number] 14:00:52 Name: Esmer : 1940 Sex: F - DIAG MAMM BILATERAL BARBARA CAD DIGITALBILATERAL DIGITAL DIAGNOSTIC MAMMOGRAM 3D/2D WITH CAD: 07/09/2021LINICAL: Left breast pain. Digital breast tomosynthesis was performed in addition to routine CC and MLO views. Current mammographic images were evaluated by [employer] CAD (computer-aided detection) software. Comparison is madeto exams dated 05/02/2020 mammogram, 01/27/2019 mammogram, and 12/12/2015 mammogram - [facility]. There are scattered fibroglandular tissues in both breasts. Stable subcentimeter mass in the left upper outer quadrant and bilateral calcifications, benign. No suspicious mass, architectural distortion, malignant type calcification, or lymph node abnormality detected. INCOMPLETE: ADDITIONAL IMAGING EVALUATION NEEDEDThere is no mammographic evidence of malignancy. Bilateral survey ultra sound to follow.- BREAST ULTRASOUND BILATERALULTRASOUND OF BOTH BREASTS: 07/09/2021omparison is made to exams dated 05/02/2020 mammogram, 01/27/2019 mammogram, and 12/12/2015 mammogram - [facility]. Color flow and real-time ultrasound of both breasts were performed. Koo scale images of the real-time examination were reviewed. The breast tissue has scattered fibroglandular background echotexture. Bilateral survey ultrasound demonstrates no suspicious sonographic abnormality. No axillary lymphadenopathy was seen.IMPRESSION: NEGATIVE There is no sonographic evidence of malignancy.Resume annual screening mammography in one year. Valente Santana M.D. ss/:07/09/2021 14:00:52 Entry: - 07/09/2021 14:41:28Imaging Technologist: Carolina Serrato FW, [facility]-FWlettersent: BIRADS 1-2 Combo FU Letter Mammogram BI- RADS: 0 Incomplete: Additional Imaging Evaluation Needed Ultrasound BI-RADS: 1 NegativeBASIC METABOLIC [id number] 10:52:00* Test Item Value Reference Range Interpretation Comme [...] H BLOOD UREA NITROGEN (test code = BUN) 26 mg/dL 7-18 H GLOMERULAR FILTRATION RATE (test code = GFR) 33.5 70-80 L Units of measure = ml/min/1.73 m2 CREATININE (test code = CREAT) 1.5 mg/dL 0.6-1.3 H CALCIUM (test code = CA) 8.6 mg/dL 8.0-10.5 N [id number] 10:49:00* Test Item Value Reference Range Interpretation Comme nts GLUBED (test code = GLUBED) 381 MG/DL 70-110 H Performed by cer tified distribution collection operator at [facility] CBC W/AUTO [id number] 07:43:00* Test Item Value Reference Range Interpretation Comme nts WHITE BLOOD CELL (test code = WBC) 10.7 x10 3/uL 4.5-11.0 N RED BLOOD CELL (test code = RBC) 4.08 x10 6/uL 3.54-5.02 N HEMOGLOBIN (test code = HGB) 12.4 g/dL 11.0-15.0 N HEMATOCRIT (test code = HCT) 38.7 % 33.0-45.0 N MEAN CELL VOLUME (test code = MCV) 94.9 fL 81.0-99.0 N MEAN CELL HGB (test code = MCH) 30.4 pg 27.0-33.0 N MEAN CELL HGB CONCETRATION (test code = MCHC) 32.0 g/dL 33.0-37.0 L RED CELL DISTRIBUTION WIDTH CV (test code = RDW) 14.6 % 11.5-14.5 H RED CELL DISTRIBUTION WIDTH SD (test code = RDW-SD) 51.3 fL 37.0-54.0 N PLATELET COUNT (test code = PLT) 185 x10 3/uL 150-400 N MEAN PLATELET VOLUME (test c ode = MPV) 11.9 fL 7.0-9.0 H NEUTROPHIL % (test code = NT%) 89.0 % 56.0-77.0 H IMMATURE GRANULOCYTE % (test code = IG%) 0.7 % 0.0-2.0 N LYMPHOCYTE % (test code = LY%) 8.0 % 14.0-32.0 L MONOCYTE % (test code = MO%) 2.1 % 4.8-9.0 L EOSINOPHIL % (test code = EO%) 0.0 % 0.3-3.7 L BASOPHIL % (test code = BA%) 0.2 % 0.0-2.0 N NUCLEATED RBC % (test code = NRBC%) 0.0 % 0-0 N NEUTROPHIL # (test code = NT#) 9.49 x10 3/uL 2.0-7.6 H IMMATURE GRANULOCYTE # (test code = IG#) 0.07 x10 3/uL 0.00-0.03 H LYMPHOCYTE # (test code = LY#) 0.85 x10 3/uL 1.0-3.8 L MONOCYTE # (test code = MO#) 0.22 x10 3/uL 0.1-0.8 N EOSINOPHIL # (test code = EO#) 0.00 x10 3/uL 0.0-0.2 N BASOPHIL # (test code = BA#) 0.02 x10 3/uL 0.0-0.2 N NUCLEATED RBC # (test code = NRBC#) 0.00 x10 3/uL 0.0-0.1 N MANUAL DIFF REQUIRED (test c ode = MDIFF) NO CBC W/AUTO [id number] 07:14:00* Test Item Value Reference Range Interpretation Comme nts WHITE BLOOD CELL (test code = WBC) x10 3/uL 4.5-11.0 RED BLOOD CELL (test code = RBC) x10 6/uL 3.54-5.02 HEMOGLOBIN (test code = HGB) 12.4 g/dL 11.0-15.0 N HEMATOCRIT (test code = HCT) 38.7 % 33.0-45.0 N MEAN CELL VOLUME (test code = MCV) fL 81.0-99.0 MEAN CELL HGB (test code = MCH) pg 27.0-33.0 MEAN CELL HGB CONCETRATION ( test code = MCHC) g/dL 33.0-37.0 RED CELL DISTRIBUTION WIDTH CV (test code = RDW) % 11.5-14.5 PLATELET COUNT (test code = PLT) 185 x10 3/uL 150-400 N NEUTROPHIL % (test code = NT%) % 56.0-77.0 LYMPHOCYTE % (test code = LY%) % 14.0-32.0 NEUTROPHIL # (test code = NT#) x10 3/uL 2.0-7.6 LYMPHOCYTE # (test code = LY#) x10 3/uL 1.0-3.8 MANUAL DIFF REQUIRED (test c ode = MDIFF) - XR KNEE 1 OR 2 V [id number] 14:19:00 [facility] 1940 Sex: F FAX: Carol Rodriguez [phone] [place]: St: [facility] FAX: Geo Swann [facility] [phone] Name: ESMER MARRERO [facility] : 1940 Age/S: 80/F [address] [place] [address] Unit #: [id number] Loc: [place] [address] Phys: Geo Swann Bulmaro APRNNP Acct: [id number] Dis Date: Status: ADM IN PHONE #: [phone] Exam Date: 08/28/2020 0851 FAX #: [phone] Reason: swelling, pain Report Has Been Amended EXAMS: CPT CODE: [id number] XR KNEE 1 OR 2 V LT [address] Addendum - 08/28/2020 SIGNED 08/28/2020 ADDENDUM: [id number] RAD/KNEELT Additional lateral radiograph of the left knee is now available. Clothing artifact is positioned more cranial of the distal thigh. The suprapatellar rec ess is not well-defined possibly related to obliquity. Presence or absence of joint effusion cannotbe stated with certainty. Degenerative changes and chondrocalcinosis redemonstrated. IMPRESSION: Limited exam. Joint effusion is not excluded. at 1419 Reported and signed by: Mitul Shafer M.D. Report PROCEDURE: Left knee 2views INDICATION: swelling, pain; left leg pain and swelling COMPARISON: 03/02/2017 FINDINGS: AP and lateral views of the left knee were obtained. Clothing artifact partially obscures the suprapatellarregion in the lateral projection. Sensitivity for joint [...] complete assessment. IMPRESSION: 1. Limited exam. Sensitivity forjoint effusion may be diminished. Repeat lateral projection is planned with an addendum report to follow. 2. Osteoarthritis and chondrocalcinosis. PAGE 1 Signed Report (CONTINUED) FAX: Carol Hamm [phone] [place]: St: ADM FAX: Geo Swann [facility] [phone] Name: ESMER MARRERO [facility] : 1940 Age/S: 80/F [address] [place] [address] Unit #: [id number] Loc: [place] [address] Phys: Geo Swann Acct: [id number] Dis Date: Status: ADM IN PHONE #: [phone] Exam Date: 08/28/2020 0851 FAX #: [phone] Reason: swelling, pain Report Has Been Amended EXAMS: CPT CODE: [id number] XR KNEE 1 OR 2 [place] [address] (Continued) SL: [id number] ElectronicallySigned by Justyna Shafer on 08/28/2020 at 0904 Reported and signed by: Mitul Shafer M.D. CC: Carol Mota DO; Geo Swann Technologist: RT Lina(R) Trnscrd Date/Time/By: 08/28/2020 (903) : By: Delfina Orig Print D/T: S: 08/28/2020 (906) PAGE 2 Signed ReportURIC [id number] 10:32:00* Test Item Value Reference Range Interpretation Comme nts URIC ACID (test code = URIC) 7.9 mg/dL 2.6-7.2 H - DUP VEIN [id number]/[id number] 09:57:00 [facility] SUSHIL ACEVEDOName: ESMER MARRERO : 1940 Sex: F Name: ESMER MARRERO [facility] Sushil Acevedo : 1940 Age/S: 80 / F [address] [place] [address] Unit #: [id number] Loc: [place] [address] Phys: Geo Swann Acct: [id number] DisDate: Status: REG ER PHONE #: [phone] Exam Date: 08/28/2020950 FAX #: [phone] Reason: lle swelling, pain EXAMS: CPT CODE: [id number] DUP VEIN UNI/LTD 25239 PROCEDURE: UNILATERAL LOWER EXTREMITY VENOUS ULTRASOUND INDICATION: Left lower extremity swelling and pain. COMPARISON: None. TECHNIQUE: Sonographic evaluation of the left lower extremity veins was performed using high resolution B-mode, pulse and color Doppler imaging. FINDINGS: The common femoral, femoral, popliteal and visualized calf veins are patent. Normal venous waveforms. The saphenofemoral junction is unremarkable. There is mild subcutaneous edema involving the left calf. IMPRESSION: No deep venous thrombosis. SL: [id number] at 0957 Reported and signed by: Sang Wade M.D. CC: Carol Swann Technologist: Kathy Torres RDMS(Logan)(BR) Trnscb Date/Time: 08/28/2020 (0957) [id number] Orig Print D/T: S:08/28/2020 (1000) Probe: PAGE 1 Signed ReportC W/AUTO [id number] 09:17:00* Test Item Value Reference Range Interpretation Comme nts WHITE BLOOD CELL (test code = WBC) 11.9 x10 3/uL 4.5-11.0 H RED BLOOD CELL (test code = RBC) 4.20 x10 6/uL 3.54-5.02 N HEMOGLOBIN (test code = HGB) 12.7 g/dL 11.0-15.0 N HEMATOCRIT (test code = HCT) 38.8 % 33.0-45.0 N MEAN CELL VOLUME (test code = MCV) 92.4 fL 81.0-99.0 N MEAN CELL HGB (test code = MCH) 30.2 pg 27.0-33.0 N MEAN CELL HGB CONCETRATION (test code = MCHC) 32.7 g/dL 33.0-37.0 L RED CELL DISTRIBUTION WIDTH CV (test code = RDW) 14.7 % 11.5-14.5 H RED CELL DISTRIBUTION WIDTH SD (test code = RDW-SD) 50.2 fL 37.0-54.0 N PLATELET COUNT (test code = PLT) 195 x10 3/uL 150-400 N MEAN PLATELET VOLUME (test c ode = MPV) 11.5 fL 7.0-9.0 H NEUTROPHIL % (test code = NT%) 69.2 % 56.0-77.0 N IMMATURE GRANULOCYTE % (test code = IG%) 0.5 % 0.0-2.0 N LYMPHOCYTE % (test code = LY%) 17.9 % 14.0-32.0 N MONOCYTE % (test code = MO%) 10.8 % 4.8-9.0 H EOSINOPHIL % (test code = EO%) 0.9 % 0.3-3.7 N BASOPHIL % (test code = BA%) 0.7 % 0.0-2.0 N NUCLEATED RBC % (test code = NRBC%) 0.0 % 0-0 N NEUTROPHIL # (test code = NT#) 8.24 x10 3/uL 2.0-7.6 H IMMATURE GRANULOCYTE # (test code = IG#) 0.06 x10 3/uL 0.00-0.03 H LYMPHOCYTE # (test code = LY#) 2.13 x10 3/uL 1.0-3.8 N MONOCYTE # (test code = MO#) 1.28 x10 3/uL 0.1-0.8 H EOSINOPHIL # (test code = EO#) 0.11 x10 3/uL 0.0-0.2 N BASOPHIL # (test code = BA#) 0.08 x10 3/uL 0.0-0.2 N NUCLEATED RBC # (test code = NRBC#) 0.00 x10 3/uL 0.0-0.1 N MANUAL DIFF REQUIRED (test c ode = MDIFF) NO SED RATE [id number] 09:17:00* Test Item Value Reference Range Interpretation Comme nts SED RATE ERGREN (test co de = SEDW) 78 mm/hr 0-20 H - XR KNEE 1 OR 2 V [id number] 09:04:00 [facility] : 1940 Sex: F FAX: Carol Rodriguez [phone] [place]: St: REG FAX: Geo Swann [facility] [phone] Name: ESMER MARRERO CHERRI [facility] : 1940 Age/S: 80/F [address] [place] [address] Unit #: [id number] Loc: [place] [address] Phys: Geo Swann Acct: [id number] Dis Date: Status: REG ER PHONE #: [phone] Exam Date: 08/28/2020 0851 FAX #: [phone] Reason: swelling, pain EXAMS: CPT CODE: [id number] XR KNEE 1 OR 2 [place] LT [address] PROCEDURE: Left knee 2 views INDICATION: swelling, [...] to follow. 2. Osteoarthritis and chondrocalcinosis. SL: [id number] Electronically Signed by Justyna Shafer on 021 at 0904 Reported and signed by: Mitul Shafer M.D. CC: Carol Aguero DO; Geo wSann Technologist: RT Lina(Wil) Trnscrd Date/Time/By: 08/28/2020 (903) : By: Delfina Orig Print D/T: S: 08/28/2020 (07) PAGE 1 Signed ReportCOMPREHENSIVE METABOLIC [id number] 08:55:00* Test Item Value Reference Range Interpretation Comme nts SODIUM (test code = NA) 138 mEq/L 134-147 N POTASSIUM (test code = K) 4.8 mEq/L 3.4-5.0 N SPECIMEN 2+ HEMOLYZED.Results known to be adversely affected by hemolysis are: Potassium Magnesium LDH Phosphorus Previously reported result: 4.8 mEq/LEdited by: EL on 08/28/20:387176/09/11 0855: K previously reported as: 4.8 mEq/L CHLORIDE (test code = CL) 107 mEq/L 100-108 N CARBON DIOXIDE (test code = CO2) 26 mEq/l 21-33 N ANION GAP (test code = GAP) 10 0-20 N GLUCOSE (test code = GLU) 155 mg/dL 70-110 H BLOOD UREA NITROGEN (test code = BUN) 12 mg/dL 7-18 N GLOMERULAR FILTRATION RATE (test code = GFR) 47.9 70-80 L Units of measure = ml/min/1.73 m2 CREATININE (test code = CREAT) 1.1 mg/dL 0.6-1.3 N TOTAL PROTEIN (test code = PROT) 7.2 g/dL 6.4-8.2 N ALBUMIN (test code = ALB) 3.50 g/dL 3.4-5.0 N CALCIUM (test code = CA) 8.9 mg/dL 8.0-10.5 N BILIRUBIN TOTAL (test code = BILT) 0.60 mg/dL 0.0-1.0 N SGOT/AST (test code = AST) 30 IUnit/L 15-37 N SGPT/ALT (test code = ALT) 11 IUnit/L 30-65 L ALKALINE PHOSPHATASE TOTAL (test code = ALKP) 61 IUnit/L 20-125 N COMPREHENSIVE METABOLIC [id number] 08:55:00* Test Item Value Reference Range Interpretation Comme nts SODIUM (test code = NA) 138 mEq/L 134-147 N POTASSIUM (test code = K) 4.8 mEq/L 3.4-5.0 N CHLORIDE (test code = CL) 107 mEq/L 100-108 N CARBON DIOXIDE (test code = CO2) 26 mEq/l 21-33 N ANION GAP (test code = GAP) 10 0-20 N GLUCOSE (test code = GLU) 155 mg/dL 70-110 H BLOOD UREA NITROGEN (test code = BUN) 12 mg/dL 7-18 N GLOMERULAR FILTRATION RATE (test code = GFR) 47.9 70-80 L Units of measure = ml/min/1.73 m2 CREATININE (test code = CREAT) 1.1 mg/dL 0.6-1.3 N TOTAL PROTEIN (test code = PROT) 7.2 g/dL 6.4-8.2 N ALBUMIN (test code = ALB) 3.50 g/dL 3.4-5.0 N CALCIUM (test code = CA) 8.9 mg/dL 8.0-10.5 N BILIRUBIN TOTAL (test code = BILT) 0.60 mg/dL 0.0-1.0 N SGOT/AST (test code = AST) 30 IUnit/L 15-37 N SGPT/ALT (test code = ALT) 11 IUnit/L 30-65 L ALKALINE PHOSPHATASE TOTAL (test code = ALKP) 61 IUnit/L 20-125 N COMPREHENSIVE METABOLIC [id number] 08:53:00* Test Item Value Reference Range Interpretation Comme nts SODIUM (test code = NA) 138 mEq/L 134-147 N POTASSIUM (test code = K) 4.8 mEq/L 3.4-5.0 N CHLORIDE (test code = CL) 107 mEq/L 100-108 N CARBON DIOXIDE (test code = CO2) 26 mEq/l 21-33 N ANION GAP (test code = GAP) 10 0-20 N GLUCOSE (test code = GLU) 155 mg/dL 70-110 H BLOOD UREA NITROGEN (test code = BUN) 12 mg/dL 7-18 N GLOMERULAR FILTRATION RATE (test code = GFR) 47.9 70-80 L Units of measure = ml/min/1.73 m2 CREATININE (test code = CREAT) 1.1 mg/dL 0.6-1.3 N TOTAL PROTEIN (test code = PROT) g/dL 6.4-8.2 ALBUMIN (test code = ALB) g/dL 3.4-5.0 CALCIUM (test code = CA) 8.9 mg/dL 8.0-10.5 N BILIRUBIN TOTAL (test code = BILT) mg/dL 0.0-1.0 SGOT/AST (test code = AST) IUnit/L 15-37 SGPT/ALT (test code = ALT) IUnit/L 30-65 ALKALINE PHOSPHATASE TOTAL (test code = ALKP) IUnit/L 20-125 CBC W/AUTO [id number] 08:39:00* Test Item Value Reference Range Interpretation Comme nts WHITE BLOOD CELL (test code = WBC) 11.9 x10 3/uL 4.5-11.0 H RED BLOOD CELL (test code = RBC) 4.20 x10 6/uL 3.54-5.02 N HEMOGLOBIN (test code = HGB) 12.7 g/dL 11.0-15.0 N HEMATOCRIT (test code = HCT) 38.8 % 33.0-45.0 N MEAN CELL VOLUME (test code = MCV) 92.4 fL 81.0-99.0 N MEAN CELL HGB (test code = MCH) 30.2 pg 27.0-33.0 N MEAN CELL HGB CONCETRATION (test code = MCHC) 32.7 g/dL 33.0-37.0 L RED CELL DISTRIBUTION WIDTH CV (test code = RDW) 14.7 % 11.5-14.5 H RED CELL DISTRIBUTION WIDTH SD (test code = RDW-SD) 50.2 fL 37.0-54.0 N PLATELET COUNT (test code = PLT) 195 x10 3/uL 150-400 N MEAN PLATELET VOLUME (test c ode = MPV) 11.5 fL 7.0-9.0 H NEUTROPHIL % (test code = NT%) 69.2 % 56.0-77.0 N IMMATURE GRANULOCYTE % (test code = IG%) 0.5 % 0.0-2.0 N LYMPHOCYTE % (test code = LY%) 17.9 % 14.0-32.0 N MONOCYTE % (test code = MO%) 10.8 % 4.8-9.0 H EOSINOPHIL % (test code = EO%) 0.9 % 0.3-3.7 N BASOPHIL % (test code = BA%) 0.7 % 0.0-2.0 N NUCLEATED RBC % (test code = NRBC%) 0.0 % 0-0 N NEUTROPHIL # (test code = NT#) 8.24 x10 3/uL 2.0-7.6 H IMMATURE GRANULOCYTE # (test code = IG#) 0.06 x10 3/uL 0.00-0.03 H LYMPHOCYTE # (test code = LY#) 2.13 x10 3/uL 1.0-3.8 N MONOCYTE # (test code = MO#) 1.28 x10 3/uL 0.1-0.8 H EOSINOPHIL # (test code = EO#) 0.11 x10 3/uL 0.0-0.2 N BASOPHIL # (test code = BA#) 0.08 x10 3/uL 0.0-0.2 N NUCLEATED RBC # (test code = NRBC#) 0.00 x10 3/uL 0.0-0.1 N MANUAL DIFF REQUIRED (test c ode = MDIFF) NO SED RATE [id number] 08:39:00* Test Item Value Reference Range Interpretation Comme nts SED RATE SUHAILREN (test code = SEDW) mm/hr 0-20 SCR MAMM BILATERAL BARBARA CAD [id number] 11:51:26 Name: Esmer : 1940 Sex: F - SCR MAMM BILATERAL BARBARA CAD DIGITALBILATERAL DIGITAL SCREENING MAMMOGRAM 3D/2D WITH CAD: 05/02/2020LINICAL: Patient state she has injuries to both shoulders.[id number] Covid vaccine 2 weeks ago Left armPatient with walker, can't standfor long periods, difficult to position. Digital breast tomosynthesis was performed in addition to routine CC and MLO views. Current mammographic images were evaluated by either a [employer] M-Vu or a [employer] ImageChecker CAD (computer aided detection system). Comparison is made to exams dated 01/27/2019 mammogram, 12/12/2015 mammogram, and 09/03/2014 mammogram - [facility]. There are scattered fibroglandular tissues in both breasts. There are benign calcifications in both breasts. There also is a benign intramammary node in the left breast. No suspicious mass, architectural distortion, malignant type calcification, or lymph node abnormality detected. Breast architecture is stablecompared to prior exams.IMPRESSION: BENIGNThere is no mammographic evidence of malignancy. Resume annual screening mammography in one year. Bren Xiong M.D. sc/penrad:05/06/2020 11:51:26 Electronic Equipment Maint Tech: Nathalie MOFFETT, [facility]-letter sent: BIRADS 1-2 Normal Mammogram BI-RADS: 2 BenignSCR MAMM BILATERAL BARBARA CAD [id number] 08:53:40- SCR MAMM BILATERAL BARBARA CAD DIGITALBILATERAL DIGITAL SCREENING MAMMOGRAM 3D/2D WITH CAD: 01/27/2019CLINICAL: Asymptomatic. Digital breast tomosynthesis was performed in addition to routine CC and MLO views. Current mammographic images were evaluated by either a [employer] M-Vu or a [employer] ImageChecker CAD (computer aided detection system). Comparison is made to exams dated 12/12/2015 mammogram, 09/03/2014 mammogram, and [facility] The tissue of both breasts ispredominantly fatty. There are benign calcifications in both breasts. No suspicious mass, architectural distortion, malignant type calcification, or lymph node abnormality detected. Breast architecture is stable compared to prior exams.IMPRESSION: BENIGNThere is no mammographic evidence of malignancy. Resume annual screening mammography in one year. Valente Santana M.D. /penrad:01/30/2019 08:53:40 Electronic Equipment Maint Tech: Courtney MOFFETT, [facility] ImagingFWletter sent: BIRADS 1-2 NormalMammogram BI-RADS: 2 BenignUS RENAL RETROPERITONEAL [id number] 10:23:00[place] [address] PatientName: ESMER MARRERO MR #: [id number] : 1940 Age/Sex: 78/F Req #: [id number] [facility] Physician: Ordered by: LEROY MCKEON MD Report #: [id number] Location: US Room/Bed: ____ Procedure: [id number] US/US RENAL RETROPERITONEAL COMP Exam Date: 11/30/18 Exam Time: 943 REPORT STATUS: Signed EXAM: Renal Ultrasound INDICATION: [id number] URINARY TRACT INFECTION / CALCULUS OF KIDNEY [...] Bilateral ureteral jets seen. IMPRESSION: No hydronephrosis orrenal calculi. Bilateral simple cysts as above. Signed by: David Velez MD on 11/30/2018 10:24 AM Dictated By: DAVID VELEZ MD 1024 Transcribed By: MARYAM on 11/30/18 1024 COPY TO: LEROY MCKEON MDABDOMEN- 1VIEW (KUB)2018-11-30 10:18:00[place] [address] PatientName: ESMER MARRERO MR #: [id number] : 1940 Age/Sex: 78/F Req #: [id number] Adm Physician: Ordered by: LEROY MCKEON MD Report #: [id number] Location: Room/Bed: ____ Procedure: [id number] DX/ABDOMEN-1VIEW (KUB) Exam Date: 11/30/18 Exam Time: [...] VELEZ MD 1023 Transcribed By: MARYAM on 11/30/1812 14 COPY TO: LEROY MCKEON MDCT ABDOMEN/PELVIS [id number] 10:02:00[place] [address] Patient Name: ESMER MARRERO MR #: [id number] : 1940 Age/Sex: 78/F Req #: [id number] Adm Physician: Ordered by: LEROY MCKEON MD Report #: [id number] Location: CT Room/Bed: Procedure: [id number] CT/CT ABDOMEN/PELVIS WO Exam Date: 04/18/18 Exam [...] THORAX: Lingular and right middle lobe scarring. Calcificationwithin the coronary arteries, mitral valve and aortic [...] pole of the left kidney. Tiny stone within the distal right ureter. PELVIC ORGANS/BLADDER: The bladder is normal. Pelvic calcifications compatible with phleboliths. PERITONEUM/RETROPERITONEUM: No free air or fluid. Dystrophic mesenteric calcification inferior to the left kidney. LYMPH NODES: No intra-abdominal,retroperitoneal, pelvic or inguinal lymphadenopathy. VESSELS: Vascular calcification. GI TRACT: No distention or wall thickening. BONES AND SOFT TISSUES: No bony destructive lesions. Degenerative changes of thespine. No soft tissue abnormalities. IMPRESSION: 1. Tiny barely discernible distal right ureteral nonobstructing stone. 2. No renal stones, hydronephrosis or hydroureter. Signed by: Dr. Jerman Lares DO on 04/18/2018 10:28 AM Dictated By: JERMAN LARES DO 1028 Transcribed By: MARYAM on 04/18/18 1028 COPY TO: LEROY MCKEON [facility] 2 [id number] 13:04:00[place] [address] PatientName: ESMER MARRERO MR #: [id number] : 1940 Age/Sex: 77/F Req #: [id number] Adm Physician: Ordered by: SOHAIL CASTANEDA MD Report #: [id number] Location: RAD Room/Bed: Procedure: [id number] DX/CHEST 2 VIEWS Exam Date: 02/16/18 Exam Time: 1210 REPORT STATUS: Signed PROCEDURE: X-RAY CHEST, TWO VIEWS COMPARISON: None. INDICATIONS: SHORTNESS OF BREATH, PNEUMONIA FINDINGS: LUNGS: Bibasilar opacities likely secondary to atelectasis versus pneumonia in the correct setting. PLEURA: No effusions or pneumothorax. HEART MEDIASTINUM: The heart is within normal size-limits.Calcification within the aortic knob. BONES SOFT TISSUES: No acute findings. CONCLUSION: Bibasilar pulmonary opacities. Jerman Lares D.O. Dictated by: Jerman Lares D.O. on 02/16/2018 at 13:04 Elec tronically approved by: Jerman Lares D.O. on 02/16/2018 at 13:04 Dictated By: JERMAN LARES DO 1304 Transcribed By: CLAY on 02/16/18 1304 COPY TO: SOHAIL CASTANEDA MDCT ABDOMEN/PELVIS [place] [address] PatientName: ESMER MARRERO MR #: [id number] : 1940 Age/Sex: 76/F Req #: [id number] Adm Physician: Ordered by: LEROY MCKEON MD Report #: [id number] Location: CT Room/Bed: Procedure: [id number] CT/CT ABDOMEN/PELVIS WO Exam Date: 01/08/17 Exam Time: 1230 REPORT STATUS: Signed PROCEDURE: CT ABDOMEN AND PELVIS WITHOUT CONTRAST TECHNIQUE: The abdomen and pelvis were scanned utilizing a multidetector helical scanner from the diaphragm to the lesser trochanter after the oral administration of water. No IV contrast was administered per renal stone protocol. Coronal and sagittalmultiplanar reformations were obtained. COMPARISON: [facility], CT, CT ABDOMEN/PELVIS WO, 04/17/2015, 9:05. INDICATIONS: RENAL STONES FINDINGS: ABSENCE OF INTRAVENOUS CONTRAST DECREASES SE NSITIVITY FOR DETECTION OF FOCAL LESIONS AND VASCULAR [...] No free air or fluid. LYMPH NODES: Nolymphadenopathy. VESSELS: Atherosclerotic calcification of the abdominal aorta, aortic branches, and iliac vessels. GI TRACT: No bowel dilation or evidence of obstruction. No pericolonic inflammatorychanges. BONES AND SOFT TISSUES: No acute bony abnormalities. Degenerative changes in the lower thoracic and lumbosacral spine. Generalized osteopenia. Soft tissues are grossly unremarkable. IMPRESSION: 1. no renal, ureteral, or bladder calculi. No hydronephrosis or obstruction. Yo Villareal M.D. Dictated by: Yo Villareal M.D. on 01/08/2017 at 14:08 Electronically approved by: Yo Villareal M.D. on 01/08/2017 at 14:08 Dictated By: YO VILLAREAL MD 07 Transcribed By: CLAY on 01/08/171407 COPY TO: LEROY MCKEON MD Notes Date/Time Note Provider Source 2022-07-22 14:38:00 [id number] [place] [address] PATIENT NAME: ESMER MARRERO ADMIT DATE: 07/22/22 ACCOUNT NO: [id number] ROOM NO: AGE: 82 REPORT TYPE: ENDOSCOPY REPORT SEX: F ADMITTING PHYSICIAN: ATTENDING PHYSICIAN:Rafael Martin MD Gastroenterology Patient Name: Esmer Marrero Procedure Date: 07/22/2022 2:38 PM Date of : 1940 Procedure: Colonoscopy Indications: Change in bowel habits, Chronic idiopathic constipation Providers: Rafael Martin MD Referring MD: Requesting Provider: Medicines: Monitored Anesthesia Care Procedure: Pre-Anesthesia Assessment: - Prior to the procedure, a History and Physical was performed, and patient medications, allergies and sensitivities were reviewed. The patient's tolerance of previous anesthesia was reviewed. - The risks and benefits of the procedure and the sedation options and risks were discussed with the patient. All questions were answered and informed consent was obtained. - Patient identification and proposed procedure were verified prior to the procedure by the physician, the nurse, the color maker and the survey technician. The procedure was verified in the procedure room. - Pre-procedure physical examination revealed no contraindications to sedation. - ASA Grade Assessment: III - A patient with severe systemic disease. - After reviewing the risks and benefits, the patient was deemed in satisfactory condition to undergo the procedure. - Monitored anesthesia care under the supervision of a PASTE MIXING SUPERVISOR was determined to be medically necessary for this procedure based on review of the patient's medical history, medications, and prior anesthesia history. After I obtained informed consent, the scope was passed under direct vision. Throughout the procedure, the patient's blood pressure, pulse, and oxygen saturations were monitored continuously. The Colonoscope was introduced through the anus and advanced to the cecum, identified by the appendiceal PATIENT NAME: ESMER MARRERO orifice, ileocecal valve and palpation. The colonoscopy was performed without difficulty. The patient tolerated the procedure well. The quality of the bowel preparation was good. Findings: The perianal and digital rectal examinations were normal. Three sessile polyps were found in the hepatic flexure and ascending colon. The polyps were 5 to 7 mm in size. These polyps were removed with a cold snare. Resection and retrieval were complete. To prevent bleeding after the polypectomy, three hemostatic clips were successfully placed. There was no bleeding at the end of the procedure. Multiple small-mouthed diverticula were found in the sigmoid colon and descending colon. Non-bleeding internal hemorrhoids were found. The hemorrhoids were medium-sized. Complications: No immediate complications. Estimated Blood Loss: Estimated blood loss: none. Impression: - Three 5 to 7 mm polyps at the hepatic flexure and in the ascending colon, removed with a cold snare. Resected and retrieved. Clips were placed. - Diverticulosis in the sigmoid colon and in the descending colon. - Non-bleeding internal hemorrhoids. Recommendation: - Discharge patient to home (ambulatory). - Resume previous diet. - Continue present medications. - Await pathology results. - Repeat colonoscopy in 3 years for surveillance. - Return to GI office in 2 weeks. Procedure Code(s): --- Professional --- 11869, Colonoscopy, flexible; with removal of tumor(s), polyp(s), or other lesion(s) by snare technique Diagnosis Code(s): --- Professional --- K63.5, Polyp of colon K64.8, Other hemorrhoids R19.4, Change in bowel habit K59.04, Chronic idiopathic constipation K57.30, Diverticulosis of large intestine without perforation or abscess without bleeding CPT copyright 2020 [employer]. All rights reserved. The codes documented in this report are preliminary and upon manager data review may be revised to meet current compliance requirements. Rafael Martin MD 07/22/2022 3:20:27 PM PATIENT NAME: ESMER MARRERO [place] Number of Addenda: 0 Note Initiated On: 07/22/2022 2:38 PM Provation {[id number]}.pdf ProVation FT PDF at 1520 PATIENT NAME: ESMER MARRERO [facility] 2022-07-21 11:15:00 [phone] [place] [address] PATIENT NAME: ESMER MARRERO ADMIT DATE: ACCOUNT NO: [id number] ROOM NO: AGE: 82 REPORT TYPE: eELECTROCARDIOGRAM REPORT SEX: F ADMITTING PHYSICIAN: ATTENDING PHYSICIAN:Rafael Martin MD Order: [id number] Test Reason : PRE OP Test Date/Time Stamp: WedJul 21 2022 11:15:49 Blood Pressure : / mmHG Vent. Rate : 059 BPM Atrial Rate : 059 BPM P-R Int : 164 ms QRS Dur : 112 ms QT Int : 422 ms P-R-T Axes : 080 -20 039 degrees QTc Int : 417 ms Sinus bradycardia with premature atrial complexes Septal infarct (cited on or before 23-DEC-2009) Abnormal ECG Confirmed by MD EDIL, YARY ([id number]) on 07/21/2022 3:44:41 PM Referred By: Rafael Martin Confirmed by:YARY SOLO MD at 1544 PATIENT NAME: ESMER MARRERO [facility] 2020-09-05 08:18:00 [phone] [place] [address] PATIENT NAME: ESMER MARRERO ADMIT DATE: 08/29/20 ACCOUNT NO: [id number] ROOM NO: 66 AGE: 80 REPORT TYPE: DISCHARGE SUMMARY SEX: F ADMITTING PHYSICIAN:Hermelindo Worley MD ATTENDING PHYSICIAN:Hermelindo Worley MD ADMISSION DATE: 08/29/2020 DISCHARGE DATE: 08/29/2020 DISCHARGE DIAGNOSES: 1. Acute on chronic arthritis with acute pain of left knee. 2. Gouty arthritis with hyperuricemia. 3. Hypertension. 4. Hyperlipidemia. 5. Diabetes. 6. Coronary artery disease. BRIEF HOSPITAL COURSE: This is an elderly female, waiting on the left knee replacement, admitted for intractable neck pain. The patient had acute arthritis with mild effusion. Uric acid level was high, started on IV steroid and colchicine, clinically improved, discharged home on p.o. steroids and colchicine. DISCHARGE CONDITION: Stable. ACTIVITIES: As tolerated. DIET: Cardiac diet. FOLLOWUP: Follow up with primary care physician. DISCHARGE PHYSICAL EXAMINATION: Documented in the chart. Dictated By: Hermelindo Worley MD WT: DS:YOKO/LORNA/DANICA Conf#: [id number]/DID#: [id number] Authenticated by Hermelindo Worley MD On 09/10/2020 11:07:21 PM at 2307 PATIENT NAME: ESMER MARRERO [facility] 2020-08-29 14:09:00 [facility] Prog. Note REPORT#:[id number] REPORT STATUS: Signed DATE:08/29/20 TIME: 1409 PATIENT: ESMER MARRERO UNIT #: [id number] [facility]BED: [facility] AGE: 80 SEX: F ATTEND: Hermelindo Worley MD ADM AUTHOR: Hermelindo Worley MD * ALL edits or amendments must be made on the electronic/computer document * Subjective Chief complaint: Doing much better Pain controlled No fever Review of Systems Constitutional: Reports: generalized weakness. Skin: Denies: abrasion, bruising, contusion, diaphoresis, ecchymosis, itching, laceration, rash, swelling, other. Eyes: Denies: redness. Respiratory: Denies: WILCOX (dyspnea on exertion), hemoptysis, non productive cough, parox nocturnal dyspnea, pleurisy, pleuritic pain, pneumonia, productive cough (sputum ), SOB, wheezing, other. Cardiovascular: Denies: chest pain, WILCOX (dyspnea on exertion), edema, orthopnea, palpitations, parox nocturnal dyspnea, other. Neuro: Reports: gait problem, slurred speech, weakness. Objective General VS/I O: Vital Signs Date Temp Pulse Resp B/P B/P Mean Pulse Ox FiO2 08/28-08/29 96.4-97.9 57-80 16-18 98-152/58-65 73.4-93.5 90-95 Last Documented: Result Date Time Pulse Ox 92 08/29 1127 B/P 152/64 08/29 1127 B/P Mean 93.5 08/29 1127 Temp 97.5 08/29 1127 Pulse 80 / 1127 Resp 16 08/29 1127 O2 Delivery Room air 08/29 0415 24 hour I O ending at 0700: 08/29 0700 08/28 1900 Intake Total 130 Output Total Balance 130 Intake, Oral 130 Number 0 Bowel Movements Number Voids 1 Patient 95.455 kg Weight Weight Stated/Reported Measurement Method PATIENT WEIGHT: Weight (lb): Weight (oz): Weight (kg): 95.455 Medications: Active Meds + DC'd Last 24 Hrs Insulin Isophane/Insulin Regular 30 UNIT AC DIN SUBQ Aspirin 325 MG DAILY PO Clopidogrel Bisulfate 75 MG DAILY PO Insulin Isophane/Insulin Regular 50 UNIT DAILY SUBQ Pantoprazole 40 MG DAILY PO Acetaminophen 650 MG Q4H PRN PRN PO Colchicine 0.6 MG BID PO Enoxaparin Sodium 40 MG Q24H SUBQ Hydralazine HCl 10 MG Q6H PRN PRN IV Lactulose 20 GM Q6H PRN PRN PO Morphine Sulfate 4 MG Q4H PRN PRN IV Ondansetron HCl 4 MG Q4H PRN PRN IV Simvastatin 40 MG BEDTIME PO Lisinopril 20 MG DAILY PO Loratadine 10 MG DAILY PO Methylprednisolone Sodium Succinate 40 MG Q12H IV Dextrose/Water 25 ML ASDIR PRN IV (DC) Dextrose/Water 50 ML ASDIR PRN IV (DC) Glucagon 1 MG ASDIR PRN IM (DC) Hydrocodone Bitart/Acetaminophen 1 TAB Q4H PRN PRN PO (DC) Ibuprofen 600 MG Q6H PRN PRN PO (DC) Morphine Sulfate 4 MG Q4H PRN PRN IV (DC) Ondansetron HCl 4 MG Q6H PRN PRN IV (DC) Nutrition assessment: The data set between the solid lines has been imported from the dietitian's assessment. Any exceptions have been noted under Provider comments. BMI Calculated: 41.1 Nutrition related diagnosis: Nutrition diagnosis details: Nutrition problem: Nutrition etiology: Nutrition signs and symptoms: Nutrition prescription: Dietitian name: Assessment completed: Provider comments on imported dietitian assessment: Physical Exam General appearance: obese, alert, awake, oriented Head/eyes: atraumatic, EOMI, normal conjunctiva/sclera Neck: full range of motion, non-tender, normal thyroid Cardiovascular: normal capillary refill, normal heart sounds, regular rate rhythm Respiratory: aerating well, clear to auscultation Abdomen: non-tender, normal bowel sounds, soft Extremities: Extremities: no clubbing, no cyanosis 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 Results Findings/Data: Laboratory Tests 08/29/20 0910: [Embedded Image Not Available] 08/29/20 05: [Embedded Image Not Available] Laboratory Tests 08/29 08/29 0951 0910 Chemistry Sodium (134 - 147 mEq/L) 136 Potassium (3.4 - 5.0 mEq/L) 5.0 Chloride (100 - 108 mEq/L) 105 Carbon Dioxide (21 - 33 mEq/l) 22 Anion Gap (0 - 20) 14 BUN (7 - 18 mg/dL) 26 H Creatinine (0.6 - 1.3 mg/dL) 1.5 H Glomerular Filtr Rate (70 - 80) 33.5 L Glucose (70 - 110 mg/dL) 367 H POC Glucose (70 - 110 MG/DL) 381 H Calcium (8.0 - 10.5 mg/dL) 8.6 Laboratory Tests 08/29 522 Hematology WBC (4.5 - 11.0 x10 3/uL) 10.7 RBC (3.54 - 5.02 x10 6/uL) 4.08 Hgb (11.0 - 15.0 g/dL) 12.4 Hct (33.0 - 45.0 %) 38.7 MCV (81.0 - 99.0 fL) 94.9 MCH (27.0 - 33.0 pg) 30.4 MCHC (33.0 - 37.0 g/dL) 32.0 L RDW (11.5 - 14.5 %) 14.6 H Plt Count (150 - 400 x10 3/uL) 185 MPV (7.0 - 9.0 fL) 11.9 H Neut % (Auto) (56.0 - 77.0 %) 89.0 H Lymph % (Auto) (14.0 - 32.0 %) 8.0 L Crawford % (Auto) (4.8 - 9.0 %) 2.1 L Eos % (Auto) (0.3 - 3.7 %) 0.0 L Baso % (Auto) (0.0 - 2.0 %) 0.2 Neut # (Auto) (2.0 - 7.6 x10 3/uL) 9.49 H Lymph # (Auto) (1.0 - 3.8 x10 3/uL) 0.85 L Crawford # (Auto) (0.1 - 0.8 x10 3/uL) 0.22 Eos # (Auto) (0.0 - 0.2 x10 3/uL) 0.00 Baso # (Auto) (0.0 - 0.2 x10 3/uL) 0.02 Abs Immat Gran (auto) (0.00 - 0.03 x10 3/uL) 0.07 H Add Manual Diff NO Immature Gran % (0.0 - 2.0 %) 0.7 Nucleated RBC % (0 - 0 %) 0.0 Nucleated RBCs # (Man) (0.0 - 0.1 x10 3/uL) 0.00 Diagnosis, Assessment Plan Orders: Procedure Date/time Status CBC W/AUTO DIFF 09/02 0500 Active BASIC METABOLIC PANEL 09/02 0500 Active CBC W/AUTO DIFF 09/01 0500 Active BASIC METABOLIC PANEL 09/01 0500 Active CBC W/AUTO DIFF 08/31 0500 Active BASIC METABOLIC PANEL 08/31 0500 Active CBC W/AUTO DIFF 08/30 0500 Active BASIC METABOLIC PANEL 08/30 0500 Active DIABETIC/ADA/CALORIE RESTRICT. 08/29 B Active CHANGE PATIENT STATUS 08/29 1324 Active Discharge Order 08/29 1321 Active CBC W/AUTO DIFF 08/29 0500 Complete BASIC METABOLIC PANEL 08/29 UNK Complete MRSA Protocol 08/28 2230 Active IV Access 08/28 2230 Active Intake Output 08/28 2230 Active VTE Education 08/28 2230 Active Code status: full code Free Text DxA P Notes Free text DxA P notes: ASSESSMENT: 1. Buidd-mn-pqhbybc pain of the left knee due to osteoarthritis exacerbation. 2. Gouty arthritis with hyperuricemia. 3. Hypertension. 4. Hyperlipidemia. 5. Diabetes. 6. Coronary artery disease. PLAN OF MANAGEMENT: We will admit. Start on IV steroids and colchicine. Home medications reviewed and reconciled. If no improvement, we will consider orthopedic evaluation. DVT and GI prophylaxis. Home medications reviewed and reconciled for comorbidities. We will start on sliding scale, keep the blood sugar under close observation. Patient doing much better, discharged home on p.o. steroid and colchicine at [address] [facility] #:[id number] END OF REPORT [facility] 2020-08-28 22:29:00 [id number] [place] [address] PATIENT NAME: ESMER MARRERO ADMIT DATE: 08/29/20 ACCOUNT NO: [id number] ROOM NO: G.6617 AGE: 80 REPORT TYPE: HISTORY AND PHYSICAL SEX: F ADMITTING PHYSICIAN:Hermelindo Worley MD ATTENDING PHYSICIAN:Hermelindo Worley MD ADMISSION DATE: 08/28/2020 CHIEF COMPLAINT: Left lower extremity knee pain and swelling for past 3 days. HISTORY OF PRESENTING ILLNESS: This is a 80-year-old female with a past medical history of hypertension, hyperlipidemia, coronary artery disease with stent, diabetes, and arthritis presented with left lower extremity worsening pain over the past 3 days. She has a history of arthritis, waiting on left knee surgery. She feels like her left knee pain got worse and unable to ambulate as usual with increasing swelling. She denies any trauma. Denies any fever, cough, or sputum. Denies any chest pain, palpitation, or shortness of breath. No abdominal pain, nausea, or vomiting. Admitted for pain control. PAST MEDICAL HISTORY: Diabetes, hypertension, hyperlipidemia, coronary artery disease, GERD and arthritis. PAST SURGICAL HISTORY: Tonsillectomy, , back surgery, lithotripsy. HOME MEDICATIONS: Reviewed. ALLERGIES: PROPOXYPHENE AND CODEINE. SOCIAL HISTORY: No smoking, alcohol, or illicit drug use. FAMILY HISTORY: Not relevant to current illness. SYSTEM REVIEW: A 14-point comprehensive systems review was done, apart from symptoms mentioned in the history of presenting illness, otherwise negative. PHYSICAL EXAMINATION: VITAL SIGNS: Temperature 97.9, pulse is 84, and blood pressure 163/92. GENERAL: This is an elderly female, obese. NECK: Supple. CARDIOVASCULAR: S1 and S2 regular. RESPIRATORY: Bilaterally good air entry. ABDOMEN: Soft and nontender. EXTREMITIES: Left lower extremity swelling, tenderness in the knee, 1+ pitting edema. Pulses palpable. NEUROLOGIC: Alert, awake, and oriented to time, place, and person. LABORATORY DATA AND DIAGNOSTIC STUDIES: EKG, no acute ST changes, no joint effusion. Uric acid 7.9. Venous Doppler, no DVT. WBC 11.9, hemoglobin 12.7, and platelets 195. Sodium 138, potassium 4.8, chloride 107, BUN 12, and PATIENT NAME: ESMER MARRERO creatinine 1.1. LFTs within normal limit. Venous Doppler, no DVT. ASSESSMENT: 1. Ozrzc-xa-tisaqid pain of the left knee due to osteoarthritis exacerbation. 2. Gouty arthritis with hyperuricemia. 3. Hypertension. 4. Hyperlipidemia. 5. Diabetes. 6. Coronary artery disease. PLAN OF MANAGEMENT: We will admit. Start on IV steroids and colchicine. Home medications reviewed and reconciled. If no improvement, we will consider orthopedic evaluation. DVT and GI prophylaxis. Home medications reviewed and reconciled for comorbidities. We will start on sliding scale, keep the blood sugar under close observation. Dictated By: Hermelindo Worley MD WT: HP:YOKO/LORNA/DANICA Conf#: [id number]/DID#: [id number] Authenticated by Hermelindo Worley MD On 09/10/2020 11:07:21 PM at 2307 PATIENT NAME: ESMER MARRERO [facility] 2020-08-28 16:35:00 [facility] ([facility] Clinical Note REPORT#:[id number] REPORT STATUS: Signed DATE:08/28/20 TIME: 1635 PATIENT: ESMER MARRERO UNIT #: [id number] ROOM/BED: [place] : 41 AGE: 80 SEX: F ATTEND: Hermelindo Worley MD ADM AUTHOR: Hermelindo Worley MD * ALL edits or amendments must be made on the electronic/computer document * Clinical Note Note: h/p dictated at 1635 RPT #:[id number] END OF REPORT [facility] 2020-08-28 08:29:00 [facility] ([facility]) EMERGENCY PROVIDER REPORT REPORT#:[id number] REPORT STATUS: Signed DATE:08/28/20 TIME: 828 PATIENT: ESMER MARRERO UNIT #: [id number] ROOM/BED: [place] AGE: 80 SEX: F PCP PHYS: Carol Mota DO SERVICE AUTHOR: Geo Swann APRNNP * ALL edits or amendments must be made on the electronic/computer document * Geo Swann 08/28/20 0829: HPI-Extremity Prob Lower Free Text HPI Notes Free Text HPI Notes 80-year-old female with PMH of HTN, HLD, cardiac stents, DM, arthritis, kidney stones presents to the ER with complaint of left lower extremity pain from her knee to her foot that is chronic in nature but severely worse in the past 3 days. She notes she has a history of arthritis with plans for left knee arthroplasty and feels like this may be acute worsening of her inflammation. She reports swelling from her knee down to her foot and that the pain has become so severe that she cannot bear weight. She denies any fever, chills, CP, cough, palpitations, S OB, back pain, abdominal pain, nausea, vomiting, calf pain, lower extremity erythema, lower extremity injuries, peripheral numbness/tingling or any other symptoms. Of note she is currently on antibiotic for a URI symptoms. General Initial Greet Date/Time 08/28/20 0814 PCP shravan lew-pcp Presentation Chief Complaint Leg problem L Hx Obtained From Patient Risk-Extremity Prob Lower Risk Stratification Well's Criteria for DVT Well's Criteria for DVT Response Value Active Cancer? No 0 Immob Lower Extremity? No 0 Bed >3 Days/Surg Last 4 Weeks? No 0 Local Tend Deep Veinous Sys? No 0 Entire Leg Swollen? Yes 1 Calf Swelling >3cm? No 0 Pit Edema in Symptomatic Leg? Yes 1 Collat Superficial Veins? No 0 Previous Documented DVT? No 0 Total 2 Well's DVT Score >1, high risk for DVT Review of Systems ROS Statements All systems rev neg except as marked. Focused Review of Systems Musculoskeletal Reports: Extremity pain, Extremity swelling, Joint pain, Joint swelling. Past Medical History - Adult Stated Complaint LEFT LEG PAIN AND SWELLING, HOT TO TOUCH Allergies Coded Allergies: propoxyphene (Severe, CHEST HURT 07/27/15) Converted from Ingredient Allergy: Propoxyphene codeine (Mild, ITCHING 07/27/15) Converted from Ingredient Allergy: Codeine Home Medications Reported Medications CLOPIDOGREL (PLAVIX) 75 MG PO DAILY CETIRIZINE (ZyrTEC) 10 MG PO DAILY LISINOPRIL (ZESTRIL) 20 MG PO DAILY OMEPRAZOLE DR (PriLOSEC) 40 MG PO DAILY SIMVASTATIN (ZOCOR) 40 MG PO DAILY ASPIRIN 325 MG PO DAILY {INSULIN NPH/REG INSULIN HUM} ({NovoLIN 70/30 100 UNITS/ML}) 0 UNITS SUBQ AC DIN Calculated Suicide Risk (nurs) No risk Past Medical History: Reports: Coronary artery disease, Diabetes mellitus, GERD/gastritis (GERD), Hypertension, Dyslipidemia. Additional Medical History Reports kidney stones, arthritis Past Surgical History: Reports: , Tonsillectomy. Additional Surgical History Reports lithotripsy, back surgery Smoking status: Smoking status for patients 13 years old or older: Never Smoker Physical Exam Vital Signs Vital Signs First Documented: Result Date Time Pulse Ox 96 08/28 816 B/P 163/92 08/28 816 B/P Mean 115 08/28 816 O2 Delivery Room air 08/28 816 Temp 97.9 08/28 816 Pulse 84 08/28 816 Resp 16 08/28 816 Last Documented: Result Date Time Pulse Ox 96 08/28 816 B/P 163/92 08/28 816 B/P Mean 115 08/28 816 O2 Delivery Room air 08/28 816 Temp 97.9 08/28 816 Pulse 84 08/28 816 Resp 16 08/28 816 Review of Vital Signs Reviewed Free Text PE Notes Free Text PE Notes Gen: Well appearing, appears comfortable, cooperative, sitting in wheelchair Head: Normocephalic, atraumatic Eyes: Pupils midline, sclera NL Nose: no audible congestion Throat: Moist mucous membranes, handling secretions. Airway patent. Neck: FROM, supple Lungs: CTA all lobes. Respirations NL. No wheezing, No rhonchi, No dyspnea. No stridor or accessory muscle use. Heart/Chest: Regular rhythm, rate. No murmurs. Abd: Soft, non-tender, non-distended, no rebound, guarding, or peritoneal sxs. Ext:LLE: generalized edema from knee to ankle, +1 pitting edema to L foot. 2+ DP and PT pulses. calf supple and nontender. negtive dawn's. ACL TTP with decreased active ROM 2/2 pain, full passive ROM. Brisk cap refill and sensation intact. No collateral veins or palpable masses. Back: Painless ROM Neuro: awake and alert, speech NL for age, behavior age-appropriate. Skin: color NL, normal temperature, intact, no visible rashes Interpretation Diagnostics Lab Results Interpretation Results Laboratory Tests 08/28/20830: [Embedded Image Not Available] Laboratory Tests: 08/28 0831 Chemistry Sodium (134 - 147 mEq/L) 138 Potassium (3.4 - 5.0 mEq/L) 4.8 Chloride (100 - 108 mEq/L) 107 Carbon Dioxide (21 - 33 mEq/l) 26 Anion Gap (0 - 20) 10 BUN (7 - 18 mg/dL) 12 Creatinine (0.6 - 1.3 mg/dL) 1.1 Glomerular Filtr Rate (70 - 80) 47.9 L Glucose (70 - 110 mg/dL) 155 H Uric Acid (2.6 - 7.2 mg/dL) 7.9 H Calcium (8.0 - 10.5 mg/dL) 8.9 Total Bilirubin (0.0 - 1.0 mg/dL) 0.60 AST (15 - 37 IUnit/L) 30 ALT (30 - 65 IUnit/L) 11 L Total Alk Phosphatase (20 - 125 IUnit/L) 61 Total Protein (6.4 - 8.2 g/dL) 7.2 Albumin (3.4 - 5.0 g/dL) 3.50 Hematology WBC (4.5 - 11.0 x10 3/uL) 11.9 H RBC (3.54 - 5.02 x10 6/uL) 4.20 Hgb (11.0 - 15.0 g/dL) 12.7 Hct (33.0 - 45.0 %) 38.8 MCV (81.0 - 99.0 fL) 92.4 MCH (27.0 - 33.0 pg) 30.2 MCHC (33.0 - 37.0 g/dL) 32.7 L RDW (11.5 - 14.5 %) 14.7 H Plt Count (150 - 400 x10 3/uL) 195 MPV (7.0 - 9.0 fL) 11.5 H Neut % (Auto) (56.0 - 77.0 %) 69.2 Lymph % (Auto) (14.0 - 32.0 %) 17.9 Crawford % (Auto) (4.8 - 9.0 %) 10.8 H Eos % (Auto) (0.3 - 3.7 %) 0.9 Baso % (Auto) (0.0 - 2.0 %) 0.7 Neut # (Auto) (2.0 - 7.6 x10 3/uL) 8.24 H Lymph # (Auto) (1.0 - 3.8 x10 3/uL) 2.13 Crawford # (Auto) (0.1 - 0.8 x10 3/uL) 1.28 H Eos # (Auto) (0.0 - 0.2 x10 3/uL) 0.11 Baso # (Auto) (0.0 - 0.2 x10 3/uL) 0.08 Abs Immat Gran (auto) (0.00 - 0.03 x10 3/uL) 0.06 H Add Manual Diff NO Immature Gran % (0.0 - 2.0 %) 0.5 Nucleated RBC % (0 - 0 %) 0.0 Nucleated RBCs # (Man) (0.0 - 0.1 x10 3/uL) 0.00 ESR Westergren (0 - 20 mm/hr) 78 H Recent Impressions: RADIOLOGY - XR KNEE 1 OR 2 V LT 07/07 0851 Report Impression - Status: SIGNED Entered: 08/28/2020 0907 IMPRESSION: 1. Limited exam. Sensitivity for joint effusion may be diminished. Repeat lateral projection is planned with an addendum report to follow. 2. Osteoarthritis and chondrocalcinosis. SL: [id number] Impression By: Delfina Shafer M.D. ULTRASOUND - DUP VEIN UNI/LTD 08/28 950 Report Impression - Status: SIGNED Entered: 08/28/2020 1000 IMPRESSION: No deep venous thrombosis. SL: [id number] Impression By: Reinaldo - Sang Wade M.D. Lab Imaging Statement Laboratory radiographic studies reviewed and considered in the medical decision-making. ECG #1 Interpretation Date 08/28/20 Time 08 Interpreted by and reviewed by me, ED physician NL ECG Interpretation Normal rate, Normal sinus rhythm, No acute ischemic changes, No STEMI, Adequate tracing Re-Evaluation MDM Free Text MDM Notes Free Text MDM Notes Patient with left lower extremity edema, pain and inability to ambulate secondary to osteoarthritis. Given the fact that she is unable to ambulate, will admit for observation to give steroids and evaluate for improvement. Patient has follow-up with orthopedist scheduled for tomorrow. Glucose 155 will order oral steroids Re-Evaluation/Progress Re-Evaluation/Progress Text/Dict Note At bedside to round on patient. Patient remains sitting in wheelchair. I discussed all results which notes significant osteoarthritis which is likely the cause of her swelling and pain. Patient attempted to ambulate. She was able to bear weight but notes her pain was too severe to take steps. Thus I recommended admission. Patient is very hesitant about admission and declined admission noting "I would rather just go home" and she reports that she has delayed her planned arthroplasty due to illness going on with her and has an appointment with her orthopedist tomorrow. I discussed the risks of possible falls with other related injuries and difficulty completing her ADLs due to inability to ambulate. Patient remains hesitant for admission. Thus will consult with her orthopedist prior to dispo. ED Course Medication(s) Ordered Medication(s) Ordered: Antihistamine Drugs Sig/Holly Start time Last Medication Dose Route Stop Time Status Admin Diphenhydramine HCl 12.5 MG X1ED STA 08/28 0829 DC 08/28 IV 08/28 0830 0833 Central Nervous System Agents Sig/Holly Start time Last Medication Dose Route Stop Time Status Admin Hydrocodone Bitart/ 1 TAB Q4H PRN PRN 08/28 1145 AC Acetaminophen PO 08/29 1032 Ibuprofen 600 MG Q6H PRN PRN 08/28 1145 AC PO 08/29 1032 Morphine Sulfate 4 MG Q4H PRN PRN 08/28 1145 AC IV 08/29 1032 Morphine Sulfate 4 MG X1ED STA 08/28 0829 DC 08/28 IV 08/28 0830 0833 Ibuprofen 600 MG X1ED STA 08/28 0828 DC 08/28 PO 08/28 0829 0833 Electrolytic, Caloric, And Sridevi Sig/Holly Start time Last Medication Dose Route Stop Time Status Admin Dextrose/Water 25 ML ASDIR PRN 08/28 1145 CKD IV 08/29 1032 Dextrose/Water 50 ML ASDIR PRN 08/28 1145 CKD IV 08/29 1032 Gastrointestinal Drugs Sig/Holly Start time Last Medication Dose Route Stop Time Status Admin Ondansetron HCl 4 MG Q6H PRN PRN 08/28 1145 AC IV 08/29 1032 Ondansetron HCl 4 MG X1ED STA 08/28 0829 DC 08/28 IV 08/28 0830 0833 Hormones And Synthetic Substit Sig/Holly Start time Last Medication Dose Route Stop Time Status Admin Glucagon 1 MG ASDIR PRN 08/28 1145 AC IM 08/29 1032 Prednisone 50 MG X1ED STA 08/28 1132 DC PO 08/28 1133 Consultation Consultation Referral/Consult Name Piotr Hartley MD [employer] Called Orthopedic Requested Call Time 1030 Requested Call Date 08/28/20 Call Returned Call returned Call Returned Time 1102 Call Returned Date 08/28/20 [employer] Will see in office, spoke to iain who communicated with dr. hartley who advised not to transfer where they have privileges but to have pt follow up in office tomorrow and can possibly plan for procedure this wednesday Patient Discharge Departure Vital Signs/Condition Vital Signs First Documented: Result Date Time Pulse Ox 96 08/28 816 B/P 163/92 08/28 816 B/P Mean 115 08/28 08 O2 Delivery Room air 08/28 816 Temp 97.9 08/28 816 Pulse 84 08/28 816 Resp 16 08/28 816 Last Documented: Result Date Time Pulse Ox 96 08/28 816 B/P 163/92 08/28 816 B/P Mean 115 08/28 816 O2 Delivery Room air 08/28 816 Temp 97.9 08/28 816 Pulse 84 08/28 816 Resp 16 08/28 816 All vital signs available at the time of this entry have been reviewed. Condition Stable Clinical Impression Clinical Impression Primary Impression: Unable to ambulate Secondary Impressions: Osteoarthritis of left knee Disposition Decision Admit Admit Physician Name Hermelindo Worley MD Admit Physician Hospitalist Request Time 1130 Request Date 08/28/20 )( Admission Accepts Yes )( Accepted Time 1130 )( Accepted Date 08/28/20 Call Information will see patient Discharge/Care Plan Counseled Regarding Diagnosis, Lab results, Imaging studies, Need for admission Jorge Soriano. 08/28/20 1226: Patient Discharge Departure Supervising Physician Note MidLv Saw Pt Alone I have reviewed the PA/PATIENT REGISTRATION REPRESENTATIVE's note and plan of care. I was available for consultation as needed at all times during the patient's visit in the emergency department. I agree with the clinical impression, plan and disposition. at 1226 RPT #:[id number] END OF REPORT [facility] 2020-08-28 08:29:00 [facility] ([facility]) EMERGENCY PROVIDER REPORT REPORT#:[id number] REPORT STATUS: Signed DATE:08/28/20 TIME: 828 PATIENT: ESMER MARRERO UNIT #: [id number] ROOM/BED: [facility] AGE: 80 SEX: F PCP PHYS: Carol Mota DO SERVICE AUTHOR: Geo Swann APRNNP * ALL edits or amendments must be made on the electronic/computer document * Geo Swann 08/28/20 0829: HPI-Extremity Prob Lower Free Text HPI Notes Free Text HPI Notes 80-year-old female with PMH of HTN, HLD, cardiac stents, DM, arthritis, kidney stones presents to the ER with complaint of left lower extremity pain from her knee to her foot that is chronic in nature but severely worse in the past 3 days. She notes she has a history of arthritis with plans for left knee arthroplasty and feels like this may be acute worsening of her inflammation. She reports swelling from her knee down to her foot and that the pain has become so severe that she cannot bear weight. She denies any fever, chills, CP, cough, palpitations, S OB, back pain, abdominal pain, nausea, vomiting, calf pain, lower extremity erythema, lower extremity injuries, peripheral numbness/tingling or any other symptoms. Of note she is currently on antibiotic for a URI symptoms. General Initial Greet Date/Time 08/28/20 08 PCP shravan lew-pcp Presentation Chief Complaint Leg problem L Hx Obtained From Patient Risk-Extremity Prob Lower Risk Stratification Well's Criteria for DVT Well's Criteria for DVT Response Value Active Cancer? No 0 Immob Lower Extremity? No 0 Bed >3 Days/Surg Last 4 Weeks? No 0 Local Tend Deep Veinous Sys? No 0 Entire Leg Swollen? Yes 1 Calf Swelling >3cm? No 0 Pit Edema in Symptomatic Leg? Yes 1 Collat Superficial Veins? No 0 Previous Documented DVT? No 0 Total 2 Well's DVT Score >1, high risk for DVT Review of Systems ROS Statements All systems rev neg except as marked. Focused Review of Systems Musculoskeletal Reports: Extremity pain, Extremity swelling, Joint pain, Joint swelling. Past Medical History - Adult Stated Complaint LEFT LEG PAIN AND SWELLING, HOT TO TOUCH Allergies Coded Allergies: propoxyphene (Severe, CHEST HURT 07/27/15) Converted from Ingredient Allergy: Propoxyphene codeine (Mild, ITCHING 07/27/15) Converted from Ingredient Allergy: Codeine Home Medications Reported Medications CLOPIDOGREL (PLAVIX) 75 MG PO DAILY CETIRIZINE (ZyrTEC) 10 MG PO DAILY LISINOPRIL (ZESTRIL) 20 MG PO DAILY OMEPRAZOLE DR (PriLOSEC) 40 MG PO DAILY SIMVASTATIN (ZOCOR) 40 MG PO DAILY ASPIRIN 325 MG PO DAILY {INSULIN NPH/REG INSULIN HUM} ({NovoLIN 70/30 100 UNITS/ML}) 0 UNITS SUBQ AC DIN Calculated Suicide Risk (nurs) No risk Past Medical History: Reports: Coronary artery disease, Diabetes mellitus, GERD/gastritis (GERD), Hypertension, Dyslipidemia. Additional Medical History Reports kidney stones, arthritis Past Surgical History: Reports: , Tonsillectomy. Additional Surgical History Reports lithotripsy, back surgery Smoking status: Smoking status for patients 13 years old or older: Never Smoker Physical Exam Vital Signs Vital Signs First Documented: Result Date Time Pulse Ox 96 08/29 0717 B/P 163/92 08/28 0817 B/P Mean 115 08/29 0717 O2 Delivery Room air 08/28 816 Temp 97.9 08/28 816 Pulse 84 08/28 816 Resp 16 08/28 816 Last Documented: Result Date Time Pulse Ox 96 08/28 0817 B/P 163/92 08/28 0817 B/P Mean 115 08/29 0717 O2 Delivery Room air 08/28 816 Temp 97.9 08/28 816 Pulse 84 08/28 816 Resp 16 08/28 816 Review of Vital Signs Reviewed Free Text PE Notes Free Text PE Notes Gen: Well appearing, appears comfortable, cooperative, sitting in wheelchair Head: Normocephalic, atraumatic Eyes: Pupils midline, sclera NL Nose: no audible congestion Throat: Moist mucous membranes, handling secretions. Airway patent. Neck: FROM, supple Lungs: CTA all lobes. Respirations NL. No wheezing, No rhonchi, No dyspnea. No stridor or accessory muscle use. Heart/Chest: Regular rhythm, rate. No murmurs. Abd: Soft, non-tender, non-distended, no rebound, guarding, or peritoneal sxs. Ext:LLE: generalized edema from knee to ankle, +1 pitting edema to L foot. 2+ DP and PT pulses. calf supple and nontender. negtive dawn's. ACL TTP with decreased active ROM 2/2 pain, full passive ROM. Brisk cap refill and sensation intact. No collateral veins or palpable masses. Back: Painless ROM Neuro: awake and alert, speech NL for age, behavior age-appropriate. Skin: color NL, normal temperature, intact, no visible rashes Interpretation Diagnostics Lab Results Interpretation Lab Imaging Statement Laboratory radiographic studies reviewed and considered in the medical decision-making. ECG #1 Interpretation Date 08/28/20 Time 08 Interpreted by and reviewed by me, ED physician NL ECG Interpretation Normal rate, Normal sinus rhythm, No acute ischemic changes, No STEMI, Adequate tracing Re-Evaluation MDM Free Text MDM Notes Free Text MDM Notes Patient with left lower extremity edema, pain and inability to ambulate secondary to osteoarthritis. Given the fact that she is unable to ambulate, will admit for observation to give steroids and evaluate for improvement. Patient has follow-up with orthopedist scheduled for tomorrow. Glucose 155 will order oral steroids Re-Evaluation/Progress Re-Evaluation/Progress Text/Dict Note At bedside to round on patient. Patient remains sitting in wheelchair. I discussed all results which notes significant osteoarthritis which is likely the cause of her swelling and pain. Patient attempted to ambulate. She was able to bear weight but notes her pain was too severe to take steps. Thus I recommended admission. Patient is very hesitant about admission and declined admission noting "I would rather just go home" and she reports that she has delayed her planned arthroplasty due to illness going on with her and has an appointment with her orthopedist tomorrow. I discussed the risks of possible falls with other related injuries and difficulty completing her ADLs due to inability to ambulate. Patient remains hesitant for admission. Thus will consult with her orthopedist prior to dispo. ED Course Medication(s) Ordered Medication(s) Ordered: Antihistamine Drugs Sig/Holly Start time Last Medication Dose Route Stop Time Status Admin Diphenhydramine HCl 12.5 MG X1ED STA 08/28 828 DC 08/28 IV 08/28 0830 0833 Central Nervous System Agents Sig/Holly Start time Last Medication Dose Route Stop Time Status Admin Hydrocodone Bitart/ 1 TAB Q4H PRN PRN 08/28 1145 AC Acetaminophen PO 08/29 1032 Ibuprofen 600 MG Q6H PRN PRN 08/28 1145 AC PO 08/29 1032 Morphine Sulfate 4 MG Q4H PRN PRN 08/28 1145 AC IV 08/29 1032 Morphine Sulfate 4 MG X1ED STA 08/29 0729 DC 08/28 IV 08/28 829 0833 Ibuprofen 600 MG X1ED STA 08/28 0828 DC 08/28 PO 08/28 08 0833 Electrolytic, Caloric, And Sridevi Sig/Holly Start time Last Medication Dose Route Stop Time Status Admin Dextrose/Water 25 ML ASDIR PRN 08/28 1145 CKD IV 08/29 1032 Dextrose/Water 50 ML ASDIR PRN 08/28 1145 CKD IV 08/29 1032 Gastrointestinal Drugs Sig/Holly Start time Last Medication Dose Route Stop Time Status Admin Ondansetron HCl 4 MG Q6H PRN PRN 08/28 1145 AC IV 08/29 1032 Ondansetron HCl 4 MG X1ED STA 08/28 0829 DC 08/28 IV 08/28 0830 0833 Hormones And Synthetic Substit Sig/Holly Start time Last Medication Dose Route Stop Time Status Admin Glucagon 1 MG ASDIR PRN 08/28 1145 AC IM 08/29 1032 Prednisone 50 MG X1ED STA 08/28 1132 DC PO 08/28 1133 Consultation Consultation Referral/Consult Name Piotr Hartley MD [employer] Called Orthopedic Requested Call Time 1030 Requested Call Date 08/28/20 Call Returned Call returned Call Returned Time 1102 Call Returned Date 08/28/20 [employer] Associate Will see in office, spoke to iain who communicated with dr. hartley who advised not to transfer where they have privileges but to have pt follow up in office tomorrow and can possibly plan for procedure this wednesday Patient Discharge Departure Vital Signs/Condition Vital Signs First Documented: Result Date Time Pulse Ox 96 08/28 0817 B/P 163/92 / 0817 B/P Mean 115 / 0817 O2 Delivery Room air 08/28 0817 Temp 97.9 08/28 0817 Pulse 84 08/28 0817 Resp 16 08/28 0817 Last Documented: Result Date Time Pulse Ox 96 / 0817 B/P 163/92 / 0817 B/P Mean 115 / 0817 O2 Delivery Room air 08/28 0817 Temp 97.9 08/28 0817 Pulse 84 08/28 0817 Resp 16 08/28 0817 All vital signs available at the time of this entry have been reviewed. Condition Stable Clinical Impression Clinical Impression Primary Impression: Unable to ambulate Secondary Impressions: Osteoarthritis of left knee Disposition Decision Admit Admit Physician Name Hermelindo Worley MD Admit Physician Hospitalist Request Time 1130 Request Date 08/28/20 )( Admission Accepts Yes )( Accepted Time 1130 )( Accepted Date 08/28/20 Call Information will see patient Discharge/Care Plan Counseled Regarding Diagnosis, Lab results, Imaging studies, Need for admission Admit Note I have spoken with the patient and/or caregivers. I have explained the patient's condition, diagnoses and treatment plan based on the information available to me at this time. I have answered the patient's and/or caregiver's questions and addressed any concerns. The patient and/or caregivers have as good an understanding of the patient's diagnosis, condition and treatment plan as can be expected at this point. The patient has been stabilized within the capability of the emergency department. The patient will be transported for further care and management or will be moved to an observation or inpatient service. I have communicated with the staff or medical practitioner taking over this patient's care. Jorge Soriano 08/28/20 1226: Interpretation Diagnostics Lab Results Interpretation Results Laboratory Tests 08/28/20 08: [Embedded Image Not Available] Laboratory Tests: 08/28 0831 Chemistry Sodium (134 - 147 mEq/L) 138 Potassium (3.4 - 5.0 mEq/L) 4.8 Chloride (100 - 108 mEq/L) 107 Carbon Dioxide (21 - 33 mEq/l) 26 Anion Gap (0 - 20) 10 BUN (7 - 18 mg/dL) 12 Creatinine (0.6 - 1.3 mg/dL) 1.1 Glomerular Filtr Rate (70 - 80) 47.9 L Glucose (70 - 110 mg/dL) 155 H Uric Acid (2.6 - 7.2 mg/dL) 7.9 H Calcium (8.0 - 10.5 mg/dL) 8.9 Total Bilirubin (0.0 - 1.0 mg/dL) 0.60 AST (15 - 37 IUnit/L) 30 ALT (30 - 65 IUnit/L) 11 L Total Alk Phosphatase (20 - 125 IUnit/L) 61 Total Protein (6.4 - 8.2 g/dL) 7.2 Albumin (3.4 - 5.0 g/dL) 3.50 Hematology WBC (4.5 - 11.0 x10 3/uL) 11.9 H RBC (3.54 - 5.02 x10 6/uL) 4.20 Hgb (11.0 - 15.0 g/dL) 12.7 Hct (33.0 - 45.0 %) 38.8 MCV (81.0 - 99.0 fL) 92.4 MCH (27.0 - 33.0 pg) 30.2 MCHC (33.0 - 37.0 g/dL) 32.7 L RDW (11.5 - 14.5 %) 14.7 H Plt Count (150 - 400 x10 3/uL) 195 MPV (7.0 - 9.0 fL) 11.5 H Neut % (Auto) (56.0 - 77.0 %) 69.2 Lymph % (Auto) (14.0 - 32.0 %) 17.9 Crawford % (Auto) (4.8 - 9.0 %) 10.8 H Eos % (Auto) (0.3 - 3.7 %) 0.9 Baso % (Auto) (0.0 - 2.0 %) 0.7 Neut # (Auto) (2.0 - 7.6 x10 3/uL) 8.24 H Lymph # (Auto) (1.0 - 3.8 x10 3/uL) 2.13 Crawford # (Auto) (0.1 - 0.8 x10 3/uL) 1.28 H Eos # (Auto) (0.0 - 0.2 x10 3/uL) 0.11 Baso # (Auto) (0.0 - 0.2 x10 3/uL) 0.08 Abs Immat Gran (auto) (0.00 - 0.03 x10 3/uL) 0.06 H Add Manual Diff NO Immature Gran % (0.0 - 2.0 %) 0.5 Nucleated RBC % (0 - 0 %) 0.0 Nucleated RBCs # (Man) (0.0 - 0.1 x10 3/uL) 0.00 ESR Westergren (0 - 20 mm/hr) 78 H Recent Impressions: RADIOLOGY - XR KNEE 1 OR 2 V LT 08/29 0751 Report Impression - Status: SIGNED Entered: 08/28/2020 0907 IMPRESSION: 1. Limited exam. Sensitivity for joint effusion may be diminished. Repeat lateral projection is planned with an addendum report to follow. 2. Osteoarthritis and chondrocalcinosis. ANNETTE: [id number] Impression By: Delfina Shafer M.D. ULTRASOUND - DUP VEIN UNI/LTD 08/28 950 Report Impression - Status: SIGNED Entered: 08/28/2020 1000 IMPRESSION: No deep venous thrombosis. SL: [id number] Impression By: [email or web address] - Sang Wade M.D. Patient Discharge Departure Supervising Physician Note Jamie Saw Pt Alone I have reviewed the PA/PATIENT REGISTRATION REPRESENTATIVE's note and plan of care. I was available for consultation as needed at all times during the patient's visit in the emergency department. I agree with the clinical impression, plan and disposition. at 1226 at 1249 RPT #:[id number] END OF REPORT [facility] 2020-08-28 08:29:00 [facility] ([facility] EMERGENCY PROVIDER REPORT REPORT#:[id number] REPORT STATUS: Signed DATE:08/28/20 TIME: 828 PATIENT: ESMER MARRERO UNIT #: [id number] ROOM/BED: [place] [address] AGE: 80 SEX: F PCP PHYS: Carol Mota DO SERVICE AUTHOR: Geo Swann * ALL edits or amendments must be made on the electronic/computer document * See Addendum Geo Swann 08/28/20 0829: HPI-Extremity Prob Lower Free Text HPI Notes Free Text HPI Notes 80-year-old female with PMH of HTN, HLD, cardiac stents, DM, arthritis, kidney stones presents to the ER with complaint of left lower extremity pain from her knee to her foot that is chronic in nature but severely worse in the past 3 days. She notes she has a history of arthritis with plans for left knee arthroplasty and feels like this may be acute worsening of her inflammation. She reports swelling from her knee down to her foot and that the pain has become so severe that she cannot bear weight. She denies any fever, chills, CP, cough, palpitations, S OB, back pain, abdominal pain, nausea, vomiting, calf pain, lower extremity erythema, lower extremity injuries, peripheral numbness/tingling or any other symptoms. Of note she is currently on antibiotic for a URI symptoms. General Initial Greet Date/Time 08/28/20813 PCP shravan lew-pcp Presentation Chief Complaint Leg problem L Hx Obtained From Patient Risk-Extremity Prob Lower Risk Stratification Well's Criteria for DVT Well's Criteria for DVT Response Value Active Cancer? No 0 Immob Lower Extremity? No 0 Bed >3 Days/Surg Last 4 Weeks? No 0 Local Tend Deep Veinous Sys? No 0 Entire Leg Swollen? Yes 1 Calf Swelling >3cm? No 0 Pit Edema in Symptomatic Leg? Yes 1 Collat Superficial Veins? No 0 Previous Documented DVT? No 0 Total 2 Well's DVT Score >1, high risk for DVT Review of Systems ROS Statements All systems rev neg except as marked. Focused Review of Systems Musculoskeletal Reports: Extremity pain, Extremity swelling, Joint pain, Joint swelling. Past Medical History - Adult Stated Complaint LEFT LEG PAIN AND SWELLING, HOT TO TOUCH Allergies Coded Allergies: propoxyphene (Severe, CHEST HURT 07/27/15) Converted from Ingredient Allergy: Propoxyphene codeine (Mild, ITCHING 07/27/15) Converted from Ingredient Allergy: Codeine Home Medications Reported Medications CLOPIDOGREL (PLAVIX) 75 MG PO DAILY CETIRIZINE (ZyrTEC) 10 MG PO DAILY LISINOPRIL (ZESTRIL) 20 MG PO DAILY OMEPRAZOLE DR (PriLOSEC) 40 MG PO DAILY SIMVASTATIN (ZOCOR) 40 MG PO DAILY ASPIRIN 325 MG PO DAILY {INSULIN NPH/REG INSULIN HUM} ({NovoLIN 70/30 100 UNITS/ML}) 0 UNITS SUBQ AC DIN Calculated Suicide Risk (nurs) No risk Past Medical History: Reports: Coronary artery disease, Diabetes mellitus, GERD/gastritis (GERD), Hypertension, Dyslipidemia. Additional Medical History Reports kidney stones, arthritis Past Surgical History: Reports: , Tonsillectomy. Additional Surgical History Reports lithotripsy, back surgery Smoking status: Smoking status for patients 13 years old or older: Never Smoker Physical Exam Vital Signs Vital Signs First Documented: Result Date Time Pulse Ox 96 08/28 816 B/P 163/92 08/28 816 B/P Mean 115 08/28 816 O2 Delivery Room air 08/28 816 Temp 97.9 08/28 816 Pulse 84 08/28 816 Resp 16 08/28 816 Last Documented: Result Date Time Pulse Ox 96 08/28 816 B/P 163/92 08/28 816 B/P Mean 115 08/28 816 O2 Delivery Room air 08/28 816 Temp 97.9 08/28 816 Pulse 84 08/28 816 Resp 16 08/28 816 Review of Vital Signs Reviewed Free Text PE Notes Free Text PE Notes Gen: Well appearing, appears comfortable, cooperative, sitting in wheelchair Head: Normocephalic, atraumatic Eyes: Pupils midline, sclera NL Nose: no audible congestion Throat: Moist mucous membranes, handling secretions. Airway patent. Neck: FROM, supple Lungs: CTA all lobes. Respirations NL. No wheezing, No rhonchi, No dyspnea. No stridor or accessory muscle use. Heart/Chest: Regular rhythm, rate. No murmurs. Abd: Soft, non-tender, non-distended, no rebound, guarding, or peritoneal sxs. Ext:LLE: generalized edema from knee to ankle, +1 pitting edema to L foot. 2+ DP and PT pulses. calf supple and nontender. negtive dawn's. ACL TTP with decreased active ROM 2/2 pain, full passive ROM. Brisk cap refill and sensation intact. No collateral veins or palpable masses. Back: Painless ROM Neuro: awake and alert, speech NL for age, behavior age-appropriate. Skin: color NL, normal temperature, intact, no visible rashes Interpretation Diagnostics Lab Results Interpretation Lab Imaging Statement Laboratory radiographic studies reviewed and considered in the medical decision-making. ECG #1 Interpretation Date 08/28/20 Time 08 Interpreted by and reviewed by me, ED physician NL ECG Interpretation Normal rate, Normal sinus rhythm, No acute ischemic changes, No STEMI, Adequate tracing Re-Evaluation MDM Free Text MDM Notes Free Text MDM Notes Patient with left lower extremity edema, pain and inability to ambulate secondary to osteoarthritis. Given the fact that she is unable to ambulate, will admit for observation to give steroids and evaluate for improvement. Patient has follow-up with orthopedist scheduled for tomorrow. Glucose 155 will order oral steroids Re-Evaluation/Progress Re-Evaluation/Progress Text/Dict Note At bedside to round on patient. Patient remains sitting in wheelchair. I discussed all results which notes significant osteoarthritis which is likely the cause of her swelling and pain. Patient attempted to ambulate. She was able to bear weight but notes her pain was too severe to take steps. Thus I recommended admission. Patient is very hesitant about admission and declined admission noting "I would rather just go home" and she reports that she has delayed her planned arthroplasty due to illness going on with her and has an appointment with her orthopedist tomorrow. I discussed the risks of possible falls with other related injuries and difficulty completing her ADLs due to inability to ambulate. Patient remains hesitant for admission. Thus will consult with her orthopedist prior to dispo. ED Course Medication(s) Ordered Medication(s) Ordered: Antihistamine Drugs Sig/Holly Start time Last Medication Dose Route Stop Time Status Admin Diphenhydramine HCl 12.5 MG X1ED STA 08/28 0829 DC 08/28 IV 08/28 0830 0833 Central Nervous System Agents Sig/Holly Start time Last Medication Dose Route Stop Time Status Admin Hydrocodone Bitart/ 1 TAB Q4H PRN PRN 08/28 1145 AC Acetaminophen PO 08/29 1032 Ibuprofen 600 MG Q6H PRN PRN 08/28 1145 AC PO 08/29 1032 Morphine Sulfate 4 MG Q4H PRN PRN 08/28 1145 AC IV 08/29 1032 Morphine Sulfate 4 MG X1ED STA 08/28 0829 DC 08/28 IV 08/28 0830 0833 Ibuprofen 600 MG X1ED STA 08/28 0828 DC 08/28 PO 08/28 0829 0833 Electrolytic, Caloric, And Sridevi Sig/Holly Start time Last Medication Dose Route Stop Time Status Admin Dextrose/Water 25 ML ASDIR PRN 08/28 1145 CKD IV 08/29 1032 Dextrose/Water 50 ML ASDIR PRN 08/28 1145 CKD IV 08/29 1032 Gastrointestinal Drugs Sig/Holly Start time Last Medication Dose Route Stop Time Status Admin Ondansetron HCl 4 MG Q6H PRN PRN 08/28 1145 AC IV 08/29 1032 Ondansetron HCl 4 MG X1ED STA 08/28 0829 DC 08/28 IV 08/28 0830 0833 Hormones And Synthetic Substit Sig/Holly Start time Last Medication Dose Route Stop Time Status Admin Glucagon 1 MG ASDIR PRN 08/28 1145 AC IM 08/29 1032 Prednisone 50 MG X1ED STA 08/28 1132 DC PO 08/28 1133 Consultation Consultation Referral/Consult Name Piotr Hartley MD [employer] Called Orthopedic Requested Call Time 1030 Requested Call Date 08/28/20 Call Returned Call returned Call Returned Time 1102 Call Returned Date 08/28/20 [employer] Will see in office, spoke to iain who communicated with dr. hartley who advised not to transfer where they have privileges but to have pt follow up in office tomorrow and can possibly plan for procedure this wednesday Patient Discharge Departure Vital Signs/Condition Vital Signs First Documented: Result Date Time Pulse Ox 96 08/28 816 B/P 163/92 08/28 0817 B/P Mean 115 08/28 0817 O2 Delivery Room air 08/28 816 Temp 97.9 08/28 816 Pulse 84 08/28 816 Resp 16 08/28 816 Last Documented: Result Date Time Pulse Ox 96 08/28 0817 B/P 163/92 08/28 0817 B/P Mean 115 08/28 0817 O2 Delivery Room air 08/28 816 Temp 97.9 08/28 816 Pulse 84 08/28 08 Resp 16 08/28 816 All vital signs available at the time of this entry have been reviewed. Condition Stable Clinical Impression Clinical Impression Primary Impression: Unable to ambulate Secondary Impressions: Osteoarthritis of left knee Disposition Decision Admit Admit Physician Name Hermelindo Worley MD Admit Physician Hospitalist Request Time 1130 Request Date 08/28/20 )( Admission Accepts Yes )( Accepted Time 1130 )( Accepted Date 08/28/20 Call Information will see patient Discharge/Care Plan Counseled Regarding Diagnosis, Lab results, Imaging studies, Need for admission Admit Note I have spoken with the patient and/or caregivers. I have explained the patient's condition, diagnoses and treatment plan based on the information available to me at this time. I have answered the patient's and/or caregiver's questions and addressed any concerns. The patient and/or caregivers have as good an understanding of the patient's diagnosis, condition and treatment plan as can be expected at this point. The patient has been stabilized within the capability of the emergency department. The patient will be transported for further care and management or will be moved to an observation or inpatient service. I have communicated with the staff or medical practitioner taking over this patient's care. Jorge Soriano 08/28/20 1226: Interpretation Diagnostics Lab Results Interpretation Results Laboratory Tests 08/28/20 0831: [Embedded Image Not Available] Laboratory Tests: 08/28 08/28 0831 0831 Chemistry Sodium (134 - 147 mEq/L) 138 Potassium (3.4 - 5.0 mEq/L) 4.8 Chloride (100 - 108 mEq/L) 107 Carbon Dioxide (21 - 33 mEq/l) 26 Anion Gap (0 - 20) 10 BUN (7 - 18 mg/dL) 12 Creatinine (0.6 - 1.3 mg/dL) 1.1 Glomerular Filtr Rate (70 - 80) 47.9 L Glucose (70 - 110 mg/dL) 155 H Uric Acid (2.6 - 7.2 mg/dL) 7.9 H Calcium (8.0 - 10.5 mg/dL) 8.9 Total Bilirubin (0.0 - 1.0 mg/dL) 0.60 AST (15 - 37 IUnit/L) 30 ALT (30 - 65 IUnit/L) 11 L Total Alk Phosphatase (20 - 125 IUnit/L) 61 Total Protein (6.4 - 8.2 g/dL) 7.2 Albumin (3.4 - 5.0 g/dL) 3.50 Hematology WBC (4.5 - 11.0 x10 3/uL) 11.9 H RBC (3.54 - 5.02 x10 6/uL) 4.20 Hgb (11.0 - 15.0 g/dL) 12.7 Hct (33.0 - 45.0 %) 38.8 MCV (81.0 - 99.0 fL) 92.4 MCH (27.0 - 33.0 pg) 30.2 MCHC (33.0 - 37.0 g/dL) 32.7 L RDW (11.5 - 14.5 %) 14.7 H Plt Count (150 - 400 x10 3/uL) 195 MPV (7.0 - 9.0 fL) 11.5 H Neut % (Auto) (56.0 - 77.0 %) 69.2 Lymph % (Auto) (14.0 - 32.0 %) 17.9 Crawford % (Auto) (4.8 - 9.0 %) 10.8 H Eos % (Auto) (0.3 - 3.7 %) 0.9 Baso % (Auto) (0.0 - 2.0 %) 0.7 Neut # (Auto) (2.0 - 7.6 x10 3/uL) 8.24 H Lymph # (Auto) (1.0 - 3.8 x10 3/uL) 2.13 Crawford # (Auto) (0.1 - 0.8 x10 3/uL) 1.28 H Eos # (Auto) (0.0 - 0.2 x10 3/uL) 0.11 Baso # (Auto) (0.0 - 0.2 x10 3/uL) 0.08 Abs Immat Gran (auto) (0.00 - 0.03 x10 3/uL) 0.06 H Add Manual Diff NO Immature Gran % (0.0 - 2.0 %) 0.5 Nucleated RBC % (0 - 0 %) 0.0 Nucleated RBCs # (Man) (0.0 - 0.1 x10 3/uL) 0.00 ESR Westergren (0 - 20 mm/hr) 78 H Recent Impressions: RADIOLOGY - XR KNEE 1 OR 2 V LT 08/28 0851 Report Impression - Status: SIGNED Entered: 08/28/2020 0907 IMPRESSION: 1. Limited exam. Sensitivity for joint effusion may be diminished. Repeat lateral projection is planned with an addendum report to follow. 2. Osteoarthritis and chondrocalcinosis. SL: [id number] Impression By: Delfina Shafer M.D. ULTRASOUND - [facility]I/LTD 08/28 0951 Report Impression - Status: SIGNED Entered: 08/28/2020 1000 IMPRESSION: No deep venous thrombosis. SL: [id number] Impression By: AubreeBJMWalter Wade M.D. Patient Discharge Departure Supervising Physician Note MidLv Saw Pt Alone I have reviewed the PA/PATIENT REGISTRATION REPRESENTATIVE's note and plan of care. I was available for consultation as needed at all times during the patient's visit in the emergency department. I agree with the clinical impression, plan and disposition. at 1226 at 1249 Addendum 1: 08/28/20 1300 by Geo Swann Patient Addendum Addendum EKG performed at 0823 08/28/20, interpreted by er physician and myself. NSR rate of 85 with incomplete RBBB at 1300 RPT #:[id number] END OF REPORT [facility]AC[facility]
[2024-06-27] MEDS ORDERED: ONDANSETRON 4 MG/2 ML VIAL ONE (17:28)
[2024-06-27] MEDS ORDERED: MORPHINE 4 MG/ML SYR ONE ×3 (17:28→19:51)
--- NOTE | 2024-06-27 17:51 | RAD REPORT ---
EXAMINATION: ONE VIEW CHEST XR CLINICAL INDICATION: Female, 84 years old.,COUGH TECHNIQUE: Frontal chest projection is submitted. Examination is limited by patient positioning and t echnique. COMPARISON: 06/24/2023 FINDINGS: The lungs are diffusely emphysematous but grossly clear. No pneumothorax or sizable effusion. The he art is normal in size. Mediastinal contours are unremarkable. IMPRESSION: No acute intrathoracic abnormalities.
--- NOTE | 2024-06-27 17:53 | RAD REPORT ---
EXAMINATION: XR PELVIS CLINICAL INDICATION: Female, 84 years old. [facility] MAIN PAIN Bed Name: 6 TECHNIQUE: AP Pelvis radiograph was obtained. COMPARISON: No prior exam. FINDINGS: Comminuted left femoral intertrochanteric fracture, with mild medial displacement of the di stal fragment. Hip joints are well aligned. Mild to moderate degenerative changes. No evidence of AVN. Vascular calcifications. Soft tissue swelling about the left hip. IMPRESSION: Comminuted displaced left femoral intertrochanteric fracture.
--- NOTE | 2024-06-27 17:54 | RAD REPORT ---
EXAMINATION: Hip Left 2 View CLINICAL INDICATION: Female, 84 years old. [facility] MAIN PAIN Bed Name: 6 TECHNIQUE: 2 view radiograph of the left hip were obtained. COMPARISON: No prior exam. FINDINGS: Comminuted and displaced left femoral intertrochanteric fracture. Crescentic osseous densit y adjacent to the acetabular margin is nonspecific and could relate to a small os acetabuli versus a small fracture fragment. Joint alignment is maintained. Moderate degenerative changes. No Other foc al bone lesion. Soft tissue swelling about the hip. IMPRESSION: Comminuted and displaced left femoral intertrochanteric fracture as above.
--- NOTE | 2024-06-27 17:55 | RAD REPORT ---
EXAMINATION: XR RIGHT SHOUDLER CLINICAL INDICATION: Female, 84 years old. PAIN RIGHT TECHNIQUE:Two view radiograph of the right shoulder were obtained. COMPARISON: No prior exam. FINDINGS: No acute fracture or dislocation. Advanced before meals and glenohumeral joint degenerative changes. IMPRESSION: No acute osseous abnormalities. Advanced osteoarthritic changes as above.
--- NOTE | 2024-06-27 17:55 | RAD REPORT ---
EXAMINATION: XR Femur Left CLINICAL INDICATION: Female, 84 years old. PAIN TECHNIQUE: 05/12/2023 view radiograph of the left femur were obtained. COMPARISON: No prior exam. FINDINGS: Comminuted and displaced left femoral intertrochanteric fracture. Advanced osteoarthritic c hanges of the knee, although suboptimal positioning limits evaluation. Preserved alignment otherwise. Soft tissue swelling about the hip. IMPRESSION: Comminuted and displaced left femoral intertrochanteric fracture.
[2024-06-27 18:07] LABS: Absolute Basophils 0.1 K/uL (0-0.5); Absolute Eosinophils 0.1 K/uL (0-0.5); Absolute Lymphocytes (CBC) 1.2 K/uL (0.7-4.9); Absolute Monocytes 0.6 K/uL (0.1-1.3); Absolute Neutrophil 10.9 K/uL (1.8-8.0); Basophils % 0.8 % (0-1.3); Eosinophils % 0.4 % (0-4.4); Hemoglobin 12.7 g/dL (12.0-15.0); Lymphocytes % 9.3 % (15.3-44.8); MCH 30.1 pg (27.0-35.0); MCHC 33.3 g/dL (32.0-36.0); MCV 90.3 fL (80-100); MPV 9.8 fL (7.6-11.3); Monocytes % 4.7 % (3.3-12.3); Neutrophils % 84.8 % (41.7-73.7); Nucleated Red Blood Cells % 0.1 % (0-0); Platelets 166 thou/uL (152-406); RBC Red Blood Cell Count 4.21 M/uL (3.86-4.86); Red Cell Distribution Width 16.3 % (12.1-15.2)
--- NOTE | 2024-06-27 18:07 | EDPHYS ---
Physician Documentation [facility] Name: Esmer Hampton Age: 84 yrs Sex: Female : 1940 Arrival Date: 06/27/2024 Time: 15:55 Bed 6 Private MD: JOAQUIM Physician Rainer Garrison HPI: 06/27 17:54 This 84 yrs old Female presents to ER via EMS with complaints of Hip Pain. stephon 17:54 The patient or guardian reports decreased range of motion, deformity, swelling. that stephon occurred. The complaints affect the left hip. Modifying factors: The symptoms are alleviated by nothing, the symptoms are aggravated by any movement. Associated signs and symptoms: Loss of consciousness: the patient experienced no loss of consciousness, Pertinent positives: None. Severity of symptoms: At their worst the symptoms were moderate, in the emergency department the symptoms are unchanged. The patient has not experienced similar symptoms in the past. Historical: - Allergies: 16:31 Codeine; ph - Home Meds: 16:34 allopurinol 300 mg Oral tablet 1 tab daily [Active]; aspirin 81 mg Oral capsule 1 cap ph daily [Active]; Novolin 70/30 Innolet 30 units Sub-Q twice a day [Active]; lisinopril 20 mg Oral tablet 1 tab daily [Active]; simvastatin 40 mg Oral tablet 1 tab daily [Active]; metoprolol succinate 25 mg oral Tablet, Extended Release 24 hr 1 tab daily [Active]; - PMHx: 16:31 diabetes mellitus; Gout; Hypercholesterolemia; Hypertensive disorder; Kidney stone; ph - PSHx: 16:31 back sx; cardiac stent; heart cath; sx for kidney stones; ph - Immunization history:: Adult Immunizations unknown. - Infectious Disease History:: Denies. - Social history:: Smoking status: unknown. ROS: 17:56 Constitutional: Negative for fever, chills, and weight loss, Eyes: Negative for injury, stephon pain, redness, and discharge, ENT: Negative for injury, pain, and discharge, Neck: Negative for injury, pain, and swelling, Cardiovascular: Negative for chest pain, palpitations, and edema, Respiratory: Negative for shortness of breath, cough, wheezing, and pleuritic chest pain, Abdomen/GI: Negative for abdominal pain, nausea, vomiting, diarrhea, and constipation, Back: Negative for injury and pain, : Negative for injury, bleeding, discharge, and swelling, Skin: Negative for injury, rash, and discoloration, Neuro: Negative for headache, weakness, numbness, tingling, and seizure, Psych: Negative for depression, anxiety, suicide ideation, homicidal ideation, and hallucinations, Allergy/Immunology: Negative for hives, rash, and allergies, Endocrine: Negative for neck swelling, polydipsia, polyuria, polyphagia, and marked weight changes, Hematologic/Lymphatic: Negative for swollen nodes, abnormal bleeding, and unusual bruising, 17:56 MS/extremity: Positive for injury or acute deformity, decreased range of motion, pain, Exam: 17:56 Constitutional: This is a well developed, well nourished patient who is awake, alert, stephon and in no acute distress. Head/Face: Normocephalic, atraumatic. Eyes: Pupils equal round and reactive to light, extra-ocular motions intact. Lids and lashes normal. Conjunctiva and sclera are non-icteric and not injected. Cornea within normal limits. Periorbital areas with no swelling, redness, or edema. ENT: Nares patent. No nasal discharge, no septal abnormalities noted. Tympanic membranes are normal and external auditory canals are clear. Oropharynx with no redness, swelling, or masses, exudates, or evidence of obstruction, uvula midline. Mucous membranes moist. Neck: Trachea midline, no thyromegaly or masses palpated, and no cervical lymphadenopathy. Supple, full range of motion without nuchal rigidity, or vertebral point tenderness. No Meningismus. Chest/axilla: Normal chest wall appearance and motion. Nontender with no deformity. No lesions are appreciated. Cardiovascular: Regular rate and rhythm with a normal S1 and S2. No gallops, murmurs, or rubs. Normal PMI, no JVD. No pulse deficits. Respiratory: Lungs have equal breath sounds bilaterally, clear to auscultation and percussion. No rales, rhonchi or wheezes noted. No increased work of breathing, no retractions or nasal flaring. Abdomen/GI: Soft, non-tender, with normal bowel sounds. No distension or tympany. No guarding or rebound. No evidence of tenderness throughout. Back: No spinal tenderness. No costovertebral tenderness. Full range of motion. Skin: Warm, dry with normal turgor. Normal color with no rashes, no lesions, and no evidence of cellulitis. Neuro: Awake and alert, GCS 15, oriented to person, place, time, and situation. Cranial nerves II-XII grossly intact. Motor strength 5/5 in all extremities. Sensory grossly intact. Cerebellar exam normal. Normal gait. Psych: Awake, alert, with orientation to person, place and time. Behavior, mood, and affect are within normal limits. 17:56 Musculoskeletal/extremity: ROM: intact in all extremities, full active range of motion, full passive range of motion, in the left hip, Vital Signs: 16:29 BP 194 / 80; Pulse 78; Resp 18; Temp 98.1; Pulse Ox 98% on R/A; Weight 94.35 kg; Height ph 5 ft. 0 in. ; 17:42 BP 184 / 74; Pulse 84; Resp 18; Pulse Ox 87% on R/A; ph 18:54 BP 170 / 98; Pulse 71; Resp 18; Pulse Ox 100% on 2 lpm NC; ph 16:29 Body Mass Index 40.62 (94.35 kg, 152.4 cm) ph 17:42 placed pt on 2L NC ph MDM: 16:31 Medical Screening Exam initiated stephon 17:59 Differential diagnosis: hip fracture, intertrochanteric fracture, bursitis, arthritis. [facility] Data reviewed: vital signs, nurses notes. Consideration of Admission/Observation Escalation of care including admission/observation considered. I considered the following discharge prescriptions or medication management in the emergency department Medications were administered in the Emergency Department. See MAR. Independent interpretation of the following test(s) in the Emergency Department EKG: See my EKG interpretation above. Test considered but Not performed: Ultrasound no usg. Historians other than the Patient: Spouse/Significant Other: . Care significantly affected by the following chronic conditions: Diabetes, Hypertension, Obesity. 06/27 16:33 Order name: Basic Metabolic Panel; Complete Time: 18:37 [facility] 06/27 16:33 Order name: CBC with Diff; Complete Time: 18:22 [facility] 06/27 16:33 Order name: LFT's; Complete Time: 18:37 [facility] 06/27 16:33 Order name: Magnesium; Complete Time: 18:37 [facility] 06/27 16:33 Order name: NT PRO-BNP; Complete Time: 18:37 [facility] 06/27 16:33 Order name: PT-INR; Complete Time: 18:22 [facility] 06/27 16:33 Order name: Troponin HS; Complete Time: 18:37 [facility] 06/27 16:33 Order name: Type And Screen [facility] 06/27 16:33 Order name: XRAY Chest (1 view); Complete Time: 18:22 [facility] 06/27 16:33 Order name: Pelvis XRAY; Complete Time: 18:22 [facility] 06/27 16:33 Order name: Hip Left 2 View XRAY; Complete Time: 18:22 [facility] 06/27 16:33 Order name: Femur Left XRAY; Complete Time: 18:22 [facility] 06/27 17:02 Order name: Shoulder Right (2 View) XRAY; Complete Time: 18:22 [facility] 06/27 17:13 Order name: Chest Abd Pelvis Wo Con EDMS 06/27 17:14 Order name: Head C Spine Mpr Wo Con EDMS 06/27 16:33 Order name: Cardiac monitoring; Complete Time: 18:44 [facility] 06/27 16:33 Order name: EKG - Nurse/Tech; Complete Time: 18:44 [facility] 06/27 16:33 Order name: IV Saline Lock; Complete Time: 16:37 [facility] 06/27 16:33 Order name: Labs collected and sent; Complete Time: 18:01 [facility] 06/27 16:33 Order name: O2 Per Protocol; Complete Time: 16:37 [facility] 06/27 16:33 Order name: O2 Sat Monitoring; Complete Time: 16:37 [facility] 06/27 17:17 Order name: Labs - recollect needed: recollect all tube, including type and screen, re bd band pt; Complete Time: 18:01 Administered Medications: 17:43 Drug: Ondansetron IVP 4 mg IVP once; over 2 minutes Route: IVP; Site: left hand; ph 19:07 Follow up: Response: No adverse reaction ph 17:43 Drug: morphine IVP or IV 4 mg IVP once over 4 mins Route: IVP; Infused Over: 4 mins; ph Site: left hand; 19:07 Follow up: Response: No adverse reaction ph 18:50 Drug: Magnesium Sulfate IVPB 2 grams IVPB once over 2 hrs Route: IVPB; Infused Over: 2 ph hrs; Site: right hand; 19:07 Follow up: Response: No adverse reaction; IV Status: Infusion continued upon transfer ph 18:50 Drug: morphine IVP or IV 4 mg IVP once over 4 mins Route: IVP; Infused Over: 4 mins; ph Site: right hand; 19:07 Follow up: Response: No adverse reaction ph 19:06 Not Given (Other Intervention Used): ns 0.9% 500 ml 500 ml IV at 1 bolus once; to be ph given as a bolus over 30 minutes 19:06 Not Given (Other Intervention Used): ns 0.9% 500 ml 500 ml IV at 100 ml/hr once ph 20:01 Drug: morphine IVP or IV 4 mg IVP once over 4 mins Route: IVP; Infused Over: 4 mins; al5 Site: right wrist; 20:14 Follow up: Response: No adverse reaction; Medication Administered at Departure al5 Disposition Summary: 06/27/24 18:07 Transfer Ordered Notes: Transfer Location: [facility] stephon Reason: Higher level of care stephon Condition: Fair stephon Problem: new stephon Symptoms: have improved stephon Accepting Physician: to [facility](06/27/24 20:03) ha1 Diagnosis - Fall on same level, unspecified stephon - Displaced intertrochanteric fracture of left femur, initial encounter for closed stephon fracture - Morbid (severe) obesity with alveolar hypoventilation stephon - Hypomagnesemia stephon Forms: - Medication Reconciliation Form stephon - SBAR form stephon Signatures: Dispatcher [employer] EDMS Jacquelyn Thacker Corey, MD MD cha Hall, Patricia RN RN Melissa Lazo RN RN ha1 Ailyn Ponce RN RN al5 Corrections: (The following items were deleted from the chart) 16:34 16:34 Pelvis+RAD.RAD.BRZ ordered. EDMS EDMS 16:34 16:34 Femur Left+RAD.RAD.BRZ ordered. EDMS EDMS 17:03 17:03 Shoulder Right 2 View+RAD.RAD.BRZ ordered. EDMS EDMS 17:14 17:03 Head C Spine Cap Wo Con+CT.RAD.BRZ ordered. EDMS EDMS 18:38 18:07 to [facility] stephon 20:03 18:38 to [facility] ha1
--- NOTE | 2024-06-27 18:07 | ER ---
Nurse's Notes [facility] Name: Esmer Hampton Age: 84 yrs Sex: Female : 1940 Arrival Date: 06/27/2024 Time: 15:55 Bed 6 Private MD: Diagnosis: Fall on same level, unspecified;Displaced intertrochanteric fracture of left femur, initial encounter for closed fracture;Morbid (severe) obesity with alveolar hypoventilation;Hypomagnesemia Presentation: 06/27 16:29 Chief complaint: EMS states: Tripped and fell while walking up a ramp w/ her walker, ph c/o L hip pain, denies LOC or other injury, does not take blood thinners, 100 mg Ketamine and 50 mcg Fentanyl given. Coronavirus screen: Vaccine status: Patient reports being unvaccinated. Ebola Screen: No symptoms or risks identified at this time. Initial Sepsis Screen: Does the patient meet any 2 criteria? No. Patient's initial sepsis screen is negative. Does the patient have a suspected source of infection? No. Patient's initial sepsis screen is negative. Risk Assessment: Do you want to hurt yourself or someone else? Patient reports no desire to harm self or others. Onset of symptoms was June 27, 2024. 16:29 Method Of Arrival: EMS: [facility] 16:29 Acuity: MILAN 3 ph Triage Assessment: 16:35 General: Appears in no apparent distress. uncomfortable, obese, Behavior is ph cooperative, anxious. Pain: Complains of pain in left hip. Neuro: Level of Consciousness is awake, alert, obeys commands, Oriented to person, place, time, situation. Cardiovascular: Capillary refill < 3 seconds in bilateral fingers Patient's skin is warm and dry. Respiratory: Airway is patent Respiratory effort is even, unlabored, Respiratory pattern is regular, symmetrical. Derm: Skin is pink, warm \T\ dry. Musculoskeletal: Circulation, motion, and sensation intact. Historical: - Allergies: 16:31 Codeine; ph - Home Meds: 16:34 allopurinol 300 mg Oral tablet 1 tab daily [Active]; aspirin 81 mg Oral capsule 1 cap ph daily [Active]; Novolin 70/30 Innolet 30 units Sub-Q twice a day [Active]; lisinopril 20 mg Oral tablet 1 tab daily [Active]; simvastatin 40 mg Oral tablet 1 tab daily [Active]; metoprolol succinate 25 mg oral Tablet, Extended Release 24 hr 1 tab daily [Active]; - PMHx: 16:31 diabetes mellitus; Gout; Hypercholesterolemia; Hypertensive disorder; Kidney stone; ph - PSHx: 16:31 back sx; cardiac stent; heart cath; sx for kidney stones; ph - Immunization history:: Adult Immunizations unknown. - Infectious Disease History:: Denies. - Social history:: Smoking status: unknown. Screenin:36 [facility] ED Fall Risk Assessment (Adult) History of falling in the last 3 months, ph including since admission Yes- single mechanical fall (1 pt) Confusion or Disorientation No (0 pts) Intoxicated or Sedated No (0 pts) Impaired Gait Yes (1 pt) Mobility Assist Device Used Yes (1 pt) Altered Elimination Yes (1 pt) Score/Fall Risk Level 3 or more points = High Risk Oriented to surroundings, Maintained a safe environment, Used ambulatory aids as needed (educated on \T\ assisted with). Abuse screen: Denies threats or abuse. Denies injuries from another. Nutritional screening: No deficits noted. Tuberculosis screening: No symptoms or risk factors identified. Assessment: 17:41 General: SEE TRIAGE ASSESSMENT. ph Vital Signs: 16:29 BP 194 / 80; Pulse 78; Resp 18; Temp 98.1; Pulse Ox 98% on R/A; Weight 94.35 kg; Height ph 5 ft. 0 in. ; 17:42 BP 184 / 74; Pulse 84; Resp 18; Pulse Ox 87% on R/A; ph 18:54 BP 170 / 98; Pulse 71; Resp 18; Pulse Ox 100% on 2 lpm NC; ph 16:29 Body Mass Index 40.62 (94.35 kg, 152.4 cm) ph 17:42 placed pt on 2L NC ph ED Course: 16:29 Patient arrived in ED. ph 16:31 Rainer Garrison MD is Attending Physician. stephon 16:31 Triage completed. ph 16:35 Arm band placed on Patient placed in an exam room, on a stretcher. ph 16:36 No provider procedures requiring assistance completed. ph 17:40 XRAY Chest (1 view) In Process Unspecified. EDMS 17:40 Tisha Bundy RN is Primary Nurse. ph 17:40 Maintain EMS IV. Dressing intact. Site clean \T\ dry. Gauge \T\ site: 22 R hand. Flushed ph with 10 mL NS. 17:41 Pelvis XRAY In Process Unspecified. EDMS 17:41 Hip Left 2 View XRAY In Process Unspecified. EDMS 17:41 Femur Left XRAY In Process Unspecified. EDMS 17:41 Shoulder Right (2 View) XRAY In Process Unspecified. EDMS 17:43 Patient has correct armband on for positive identification. Bed in low position. Call ph light in reach. Side rails up X 1. Client placed on continuous cardiac and pulse oximetry monitoring. NIBP monitoring applied. physician practice coordinator on. 17:55 pt daughter number--------[phone]. bd 18:07 Chest Abd Pelvis Wo Con In Process Unspecified. EDMS 18:07 Head C Spine Mpr Wo Con In Process Unspecified. EDMS 19:00 transfer to [facility] by dr garrison, pt auto accepted by dr Nicole pt going to ER admin approval given by Alyson Hodge. 20:02 Provided Education on: need for transfer . ha1 20:02 Patient transferred, IV remains in place. ha1 Administered Medications: 17:43 Drug: Ondansetron IVP 4 mg IVP once; over 2 minutes Route: IVP; Site: left hand; ph 19:07 Follow up: Response: No adverse reaction ph 17:43 Drug: morphine IVP or IV 4 mg IVP once over 4 mins Route: IVP; Infused Over: 4 mins; ph Site: left hand; 19:07 Follow up: Response: No adverse reaction ph 18:50 Drug: Magnesium Sulfate IVPB 2 grams IVPB once over 2 hrs Route: IVPB; Infused Over: 2 ph hrs; Site: right hand; 19:07 Follow up: Response: No adverse reaction; IV Status: Infusion continued upon transfer ph 18:50 Drug: morphine IVP or IV 4 mg IVP once over 4 mins Route: IVP; Infused Over: 4 mins; ph Site: right hand; 19:07 Follow up: Response: No adverse reaction ph 19:06 Not Given (Other Intervention Used): ns 0.9% 500 ml 500 ml IV at 1 bolus once; to be ph given as a bolus over 30 minutes 19:06 Not Given (Other Intervention Used): ns 0.9% 500 ml 500 ml IV at 100 ml/hr once ph 20:01 Drug: morphine IVP or IV 4 mg IVP once over 4 mins Route: IVP; Infused Over: 4 mins; al5 Site: right wrist; 20:14 Follow up: Response: No adverse reaction; Medication Administered at Departure al5 Medication: 16:36 VIS not applicable for this client. ph Outcome: 18:07 ER care complete, transfer ordered by MD. szymanski 20:00 Transferred by ground EMS to [facility], Transfer form completed. X-rays sent ha1 w/ patient. 20:00 Condition: stable 20:00 Instructed on the need for transfer, Demonstrated understanding of instructions, 20:03 Patient left the ED. ha1 Signatures: Dispatcher [employer] EDMS Jacquelyn Thacker Corey, MD MD cha Hall, Patricia RN RN Melissa Ann RN RN ha1 Ailyn Ponce RN RN al5
[2024-06-27 18:12] LABS: PT Prothrombin Time 12.2 SECONDS (10-13.0); Protime INR 1.07
[2024-06-27 18:31] LABS: ALT/SGPT 15 U/L (13-56); AST/SGOT 13 U/L (15-37); Albumin 3.1 g/dL (3.4-5.0); Albumin/Globulin Ratio 0.8 (1.1-1.8); Alkaline Phosphatase 90 U/L (45-117); Anion Gap 9.4 mEq/L (5.0-15.0); BUN Blood Urea Nitrogen 16 mg/dL (7-18); Bicarbonate 25 mEq/L (21-32); Bilirubin Total 0.3 mg/dL (0.2-1.0); Glomerular Filtration Rate 51 ml/min (=/>90); Glucose Level 172 mg/dL (74-106); Magnesium 1.4 mg/dL (1.6-2.4); NT PRO-BNP 370 pg/mL (<450); Potassium 4.4 mEq/L (3.5-5.1); Protein, Total 7.1 g/dL (6.4-8.2); Sodium Level 139 mEq/L (136-145)
[2024-06-27 18:33] LABS: Bilirubin Direct < 0.2 mg/dL (0-0.2); Bilirubin Indirect, Calculated 0.1 mg/dL (0.2-0.8)
[2024-06-27] MEDS ORDERED: Magnesium Sulfate 2gm IVPB 2 G/50 ML BAG IV ONE (18:47)
--- NOTE | 2024-06-27 19:15 | RAD REPORT ---
EXAM: CT CHEST, ABDOMEN AND PELVIS WITHOUT CONTRAST CLINICAL INDICATION: Female, 84 years old. [facility] [place] MAIN FALL TECHNIQUE: CT chest, abdomen and pelvis was performed, without IV contrast, as per department protoco l. Axial, sagittal and coronal reconstructions were obtained. One or more of the following dose reduction techniques were used: Automated exposure control, adjustment of the mA and/or kV according to the patient size, and/or iterative reconstruction. Unless otherwise specified, incidental findings do not require dedicated imaging follow-up. COMPARISON: 11/14/2021 CT abdomen and pelvis FINDINGS: The lack of intravenous contrast limits the sensitivity of this exam for evaluation of solid visceral organs, vascular structures, and retroperitoneum. Chest: LOWER NECK/CHEST WALL: Visualized thyroid gland and soft tissues are normal. LUNGS AND AIRWAYS: Airways are clear. No evidence of airspace or interstitial process. No nodules. PLEURA: No pleural effusion. No pneumothorax. Hemidiaphragms are normally positioned. MEDIASTINUM AND LYMPH NODES: No mediastinal mass or fluid collection. Normal size mediastinal, hilar, and axillary lymph nodes. THORACIC AORTA: Normal caliber and configuration. PULMONARY ARTERIES: Normal caliber. HEART: Unremarkable. Abdomen/Pelvis LIVER: Normal in size and contour. No focal lesion. GALLBLADDER/BILE DUCTS: No biliary ductal dilatation. PANCREAS: No mass, ductal dilation, or jasmyn-pancreatic fluid. SPLEEN: Normal size. No focal lesion. ADRENALS: Normal; no mass. KIDNEYS AND URETERS: Normal size and contour. No hydronephrosis. Small calcific focus along the left retroperitoneum is stable, could relate to a small omental infarct. GASTROINTESTINAL TRACT: Stomach is non-dilated. Small bowel has normal course and caliber. No colonic wall thickening or pericolonic inflammatory changes. PERITONEUM: No free fluid. LYMPH NODES: No lymphadenopathy. ABDOMINAL AORTA AND OTHER VESSELS: Normal caliber aorta and IVC. URINARY BLADDER: Normal contour. REPRODUCTIVE ORGANS: No pathologic process. MUSCULOSKELETAL: Comminuted and mildly displaced left intertrochanteric femoral fracture. Advanced bi lateral glenohumeral joint degenerative changes with periarticular soft tissue mineralization more so on the left, suggesting sequelae of calcific bursitis and/or tendinitis. ADDITIONAL FINDINGS: None IMPRESSION: Comminuted and mildly displaced left femoral intertrochanteric fracture. No other acute or significant abnormalities in the chest, abdomen, or pelvis.
--- NOTE | 2024-06-27 19:18 | RAD REPORT ---
EXAM: CT brain without contrast HISTORY: TRAUMA COMPARISON: 05/12/2023 TECHNIQUE: Multiple contiguous axial images were obtained and a CT of the brain without contrast. Sag ittal and coronal reformats were performed. FINDINGS: No evidence of hydrocephalus, intracranial hemorrhage, or extra-axial fluid collection. The brain is normal in morphology. The calvarium is intact. The visualized paranasal sinuses and mastoid air cells are essentially clear . IMPRESSION: No evidence of acute intracranial abnormality. EXAM: CT of the cervical spine without contrast HISTORY: TRAUMA COMPARISON: None TECHNIQUE: Multiple contiguous axial images were obtained in a CT of the cervical spine without contr ast. Sagittal and coronal reformats were performed. FINDINGS: The vertebral bodies demonstrate normal height and alignment. No evidence of acute fracture or subluxation.. Multilevel spondylotic changes of the endplates and facet articulations, contributing to moderate degrees of neural foraminal narrowing on the right at C3-4 and bilaterally a t C5-6. No prevertebral soft tissue swelling is seen. The posterior facets are well aligned. Normal alignment of the skull base with the cervical spine is seen. The lung apices are unremarkable. IMPRESSION: No evidence of acute osseous abnormality of the cervical spine. Degenerative changes as above.
[2024-06-28 03:11] VITALS: TEMP 98.1
[2024-06-28 03:14] VITALS: BP 170/98; O2SAT 100
== END 2024-06-27 20:03 | disposition short-term general hospital (02) ==
LOC: ER 15:55
DX: S72.142A Displaced intertrochanteric fracture of left femur, initial encounter for closed fracture (principal); E66.2 Morbid (severe) obesity with alveolar hypoventilation; E83.42 Hypomagnesemia; W18.30XA Fall on same level, unspecified, initial encounter; E11.9 Type 2 diabetes mellitus without complications; I10 Essential (primary) hypertension; Z95.818 Presence of other cardiac implants and grafts; Z79.4 Long term (current) use of insulin; Z79.82 Long term (current) use of aspirin
CPT/HCPCS: 85025; 80048; 36415; 86900; 83735; 86850; 85610; 86901; 80076; 84484; 83880; 70450; 71250; 72125; 74176; 71045; 72170; 73502; 73030; 73552; 99285; J3475; J2405